=== PATIENT | female | born 1995 | race Hispanic/Latino ===

== ENCOUNTER 2019-02-25 02:24 | Emergency (ER) | payer BC, OTHER ==
[2019-02-25] MEDS ORDERED: NA CHLORIDE 0.9% 1,000 ML ONE (03:18)
[2019-02-25 03:45] LABS: Absolute Lymphocytes (CBC) 0.6 K/uL (0.7-4.9); Basophils % 0.1 % (0-1.3); Hematocrit 41.5 % (36.0-45.0); Lymphocytes % 6.6 % (15.3-44.8); RBC Red Blood Cell Count 4.96 M/uL (3.86-4.86)
[2019-02-25 04:13] LABS: Albumin 4.5 g/dL (3.4-5.0); Bilirubin Direct 0.2 mg/dL (0-0.2); Bilirubin Total 0.5 mg/dL (0.2-1.0); Potassium 3.7 mmol/L (3.5-5.1); Protein, Total 8.3 g/dL (6.4-8.2)
[2019-02-25 04:16] LABS: Thyroid Stimulating Hormone 45.7 uIU/mL (0.360-3.740)
[2019-02-25 04:48] LABS: Urine Bacteria >50 /HPF (<20); Urine Culture Reflex Order NOT NEEDED; Urine RBC <5 /HPF (NONE SEEN)
[2019-02-25 04:49] LABS: Urine Blood TRACE (NEG); Urine Glucose 2+ (NEG); Urine Protein 3+ (NEG); Urine Specific Gravity 1.025 (1.005-1.030)
--- NOTE | 2019-02-25 05:03 | ER ---
Nurse's Notes [facility] Name: Veronica Olmstead Age: 23 yrs Sex: Female : 1995 Arrival Date: 02/25/2019 Time: 02:30 Bed 7 Private MD: Diagnosis: Urinary tract infection. Hypothroidism Presentation: 02/25 02:41 Presenting complaint: Patient states: she is feeling weak, has chills, feels hot, and bb vomited x 1 symptoms started at approx 1800 last night. Transition of care: patient was not received from another setting of care. Onset of symptoms was February 24, 2019 at 18:00. Risk Assessment: Do you want to hurt yourself or someone else? Patient reports no desire to harm self or others. Initial Sepsis Screen: Does the patient meet any 2 criteria? Does the patient have a suspected source of infection? No. Patient's initial sepsis screen is negative. Care prior to arrival: None. 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 - Social history:: Smoking status: Patient/guardian denies using tobacco. - Ebola Screening: : No symptoms or risks identified at this time. Screenin:59 Abuse screen: Denies threats or abuse. Denies injuries from another. Nutritional rr5 screening: No deficits noted. Tuberculosis screening: No symptoms or risk factors identified. Fall Risk None identified. Total Woodruff Fall Scale indicates No Risk (0-24 pts). Assessment: 02:55 General: Appears in no apparent distress. uncomfortable, Behavior is calm, cooperative, rr5 appropriate for age, Reports chills for hot. Pain: Denies pain. Neuro: Level of Consciousness is awake, alert, obeys commands, Oriented to person, place, time, situation, Appropriate for age Reports weakness in body. Cardiovascular: Capillary refill < 3 seconds Patient's skin is warm and dry. 02:55 Respiratory: Airway is patent Respiratory effort is even, unlabored, Respiratory rr5 pattern is regular, symmetrical. GI: Abdomen is round non-distended, Reports nausea, vomiting. : No signs and/or symptoms were reported regarding the genitourinary system. EENT: No signs and/or symptoms were reported regarding the EENT system. Derm: Skin is intact, is healthy with good turgor, Skin temperature is warm. Musculoskeletal: Circulation, motion, and sensation intact. Capillary refill < 3 seconds. 03:36 Reassessment: Patient appears in no apparent distress at this time. Patient is alert, rr5 oriented x 3, equal unlabored respirations, skin warm/dry/pink. IVF started. TB test intradermally noted on the left forearm. 04:40 Reassessment: Patient appears in no apparent distress at this time. Patient is alert, rr5 oriented x 3, equal unlabored respirations, skin warm/dry/pink. awaiting for urine result. follow up to laboratory. 05:10 Reassessment: Patient appears in no apparent distress at this time. Patient is alert, rr5 oriented x 3, equal unlabored respirations, skin warm/dry/pink. discharge instruction given and explained without complaints made. verbalized understanding. Vital Signs: 02:43 BP 131 / 86; Pulse 133; Resp 16 S; Temp 99.6(O); Pulse Ox 97% on R/A; Weight 50.8 kg bb (R); Height 4 ft. 11 in. (149.86 cm); Pain 0/10; 03:37 BP 121 / 70; Pulse 124; Resp 19; Pulse Ox 97% ; rr5 04:15 BP 125 / 70; Pulse 121; Resp 17; Pulse Ox 98% on R/A; rr5 05:00 BP 117 / 75; Pulse 115; Resp 18; Temp 98.9; Pulse Ox 99% on R/A; rr5 02:43 Body Mass Index 22.62 (50.80 kg, 149.86 cm) ED Course: 02:30 Patient arrived in ED. es 02:33 Abraham Crabtree MD is Attending Physician. pkl 02:39 Jesús Cohen, RN is Primary Nurse. rr5 02:40 Patient has correct armband on for positive identification. Bed in low position. Call rr5 light in reach. Pulse ox on. NIBP on. 02:42 Triage completed. bb 02:43 Arm band placed on Patient placed in an exam room, on a stretcher, on pulse oximetry. bb 03:39 No provider procedures requiring assistance completed. rr5 05:15 IV discontinued, intact, bleeding controlled, No redness/swelling at site. Pressure rr5 dressing applied. Administered Medications: 03:36 Drug: NS 0.9% 1000 ml Route: IV; Rate: 1000 ml; Site: left forearm; rr5 04:45 Follow up: Response: No adverse reaction; IV Status: Completed infusion; IV Intake: rr5 1000ml 05:05 Drug: Cipro 500 mg Route: PO; rr5 05:15 Follow up: Response: Medication administered at discharge. rr5 Intake: 04:45 IV: 1000ml; Total: 1000ml. rr5 Outcome: 05:02 Discharge ordered by . pkl 05:15 Discharged to home ambulatory, with family. rr5 05:15 Condition: stable 05:15 Discharge instructions given to patient, Instructed on discharge instructions, follow up and referral plans. medication usage, Demonstrated understanding of instructions, follow-up care, medications, Prescriptions given X 1. 05:15 Patient left the ED. rr5 Addendum: 03/01/2019 10:21 Addendum: Culture Results: Positive urine culture. Bacteria is resistant to, has a a5 intermediate sensitivity, or is not tested against prescribed antibiotics. Report given to JUSTIN for further evaluation and then to cleaner furniture for follow up with patient. Phone call Attempt #1 at [phone], left voicemail. 11:18 Addendum: Culture Results: Prescription called-in to pharmacy of choice. to [facility] in [place], [place] per pt's request, Bactrim DS BID x 7 days per J CARLOS Ramirez. Pt instructed to stop Cipro and to start Bactrim. Signatures: Abraham Crabtree MD MD pkl Salyer, Edna es Ballard, Brenda RN RN bb Rena Call, RN RN aa5 Jesús Cohen RN RN rr5
[2019-02-25] MEDS ORDERED: CIPROFLOXACIN HCL 500 MG TAB ONE (05:04)
--- NOTE | 2019-02-25 05:04 | EDPHYS ---
Physician Documentation [facility] Name: Veronica Olmstead Age: 23 yrs Sex: Female : 1995 Arrival Date: 02/25/2019 Time: 02:30 Bed 7 Private MD: ED Physician Abraham Crabtree HPI: 02/25 03:13 This 23 yrs old Female presents to ER via Ambulatory with complaints of pkl Nausea/Vomiting, Weakness, Headache, Abdominal Pain, Chills. 03:13 The patient presents with abdominal pain in the lower abdomen. Onset: The pkl symptoms/episode began/occurred today, 8 hour(s) ago. The symptoms do not radiate. Associated signs and symptoms: Pertinent positives: nausea and vomiting, chills. 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 - Social history:: Smoking status: Patient/guardian denies using tobacco. - Ebola Screening: : No symptoms or risks identified at this time. ROS: 03:15 Eyes: Negative for injury, pain, redness, and discharge, ENT: Negative for injury, pkl pain, and discharge, Neck: Negative for injury, pain, and swelling, Cardiovascular: Negative for chest pain, palpitations, and edema, Respiratory: Negative for shortness of breath, cough, wheezing, and pleuritic chest pain. 03:15 Abdomen/GI: Positive for abdominal pain, nausea and vomiting, of the right lower quadrant and left lower quadrant. 03:15 Back: Negative for acute changes. 03:15 : Negative for urinary symptoms. 03:15 MS/extremity: Negative for acute changes. 03:15 Skin: Negative for rash. 03:15 Neuro: Negative for altered mental status. Exam: 03:15 Head/Face: Normocephalic, atraumatic. Eyes: Pupils equal round and reactive to light, pkl extra-ocular motions intact. Lids and lashes normal. Conjunctiva and sclera are non-icteric and not injected. Cornea within normal limits. Periorbital areas with no swelling, redness, or edema. ENT: Nares patent. No nasal discharge, no septal abnormalities noted. Tympanic membranes are normal and external auditory canals are clear. Oropharynx with no redness, swelling, or masses, exudates, or evidence of obstruction, uvula midline. Mucous membranes moist. Neck: Trachea midline, no thyromegaly or masses palpated, and no cervical lymphadenopathy. Supple, full range of motion without nuchal rigidity, or vertebral point tenderness. No Meningismus. Chest/axilla: Normal chest wall appearance and motion. Nontender with no deformity. No lesions are appreciated. Cardiovascular: Regular rate and rhythm with a normal S1 and S2. No gallops, murmurs, or rubs. Normal PMI, no JVD. No pulse deficits. Respiratory: Lungs have equal breath sounds bilaterally, clear to auscultation and percussion. No rales, rhonchi or wheezes noted. No increased work of breathing, no retractions or nasal flaring. 03:15 Abdomen/GI: Bowel sounds: normal, Palpation: soft, mild abdominal tenderness, in the right lower quadrant and left lower quadrant. 03:15 Back: Exam negative for acute changes. 03:15 : Exam negative for acute changes. 03:15 Musculoskeletal/extremity: Exam is negative for acute changes. 03:15 Skin: Exam negative for rash. 03:15 Neuro: Orientation: is normal, Mentation: is normal, Cranial nerves: grossly normal, Motor: is normal. Vital Signs: 02:43 BP 131 / 86; Pulse 133; Resp 16 S; Temp 99.6(O); Pulse Ox 97% on R/A; Weight 50.8 kg bb (R); Height 4 ft. 11 in. (149.86 cm); Pain 0/10; 03:37 BP 121 / 70; Pulse 124; Resp 19; Pulse Ox 97% ; rr5 04:15 BP 125 / 70; Pulse 121; Resp 17; Pulse Ox 98% on R/A; rr5 05:00 BP 117 / 75; Pulse 115; Resp 18; Temp 98.9; Pulse Ox 99% on R/A; rr5 02:43 Body Mass Index 22.62 (50.80 kg, 149.86 cm) MDM: 02:33 Patient medically screened. pkl 05:00 Data reviewed: vital signs, nurses notes, lab test result(s), radiologic studies. pkl 02/25 03:12 Order name: Basic Metabolic Panel; Complete Time: 04:31 pkl 02/25 03:12 Order name: CBC with Diff pkl 02/25 03:12 Order name: Creatinine for Radiology; Complete Time: 04:16 pkl 02/25 03:12 Order name: Hepatic Function; Complete Time: 04:31 pkl 02/25 03:12 Order name: Lipase; Complete Time: 04:31 pkl 02/25 03:18 Order name: Flu; Complete Time: 04:31 pkl 02/25 03:18 Order name: Strep; Complete Time: 04:31 pkl 02/25 03:30 Order name: Urine Culture mw2 02/25 03:30 Order name: Urine Dipstick--Ancillary (enter results); Complete Time: 04:58 mw2 02/25 03:30 Order name: Urine --Ancillary (enter results); Complete Time: 04:58 mw2 02/25 03:30 Order name: Urine Microscopic Only; Complete Time: 04:58 mw2 02/25 03:40 Order name: Thyroid Stimulating Hormone; Complete Time: 04:31 EDMS 02/25 04:08 Order name: Manual Differential EDMS 02/25 03:12 Order name: IV Saline Lock; Complete Time: 03:36 pkl 02/25 03:12 Order name: Labs collected and sent; Complete Time: 03:36 pkl 02/25 04:18 Order name: T4 Free; Complete Time: 04:31 EDMS 02/25 04:19 Order name: Throat Culture EDMS Administered Medications: 03:36 Drug: NS 0.9% 1000 ml Route: IV; Rate: 1000 ml; Site: left forearm; rr5 04:45 Follow up: Response: No adverse reaction; IV Status: Completed infusion; IV Intake: rr5 1000ml 05:05 Drug: Cipro 500 mg Route: PO; rr5 05:15 Follow up: Response: Medication administered at discharge. rr5 Disposition: 02/25/19 05:02 Discharged to Home. Impression: Urinary tract infection. Hypothroidism. - Condition is Stable. - Prescriptions for Cipro 500 mg Oral Tablet - take 1 tablet by ORAL route every 12 hours for 5 days; 10 tablet. - Medication Reconciliation Form, Thank You Letter, Antibiotic Education, Prescription Opioid Use form. - Work release form (02/26/19 18:24). em1 - Follow up: Private Physician; When: 2 - 3 days; Reason: Re-evaluation by your physician. - Problem is new. - Symptoms have improved. Signatures: Dispatcher [employer] EDHI Abraham Crabtree MD MD pkVivienne Mcneal RN RN bb Jesús Cohen RN RN rr5 Gaudencio Gayle em1 Corrections: (The following items were deleted from the chart) 03:39 03:15 THYROID STIMULAT HORMONE+C.LAB.BRZ ordered. [facility] EDHI 05:15 05:02 02/25/2019 05:02 Discharged to Home. Impression: Urinary tract infection. rr5 Hypothroidism. Condition is Stable. Forms are Medication Reconciliation Form, Thank You Letter, Antibiotic Education, Prescription Opioid Use. Follow up: Private Physician; When: 2 - 3 days; Reason: Re-evaluation by your physician. Problem is new. Symptoms have improved. pkl
[2019-02-25 05:21] LABS: Blood Morphology Comment NOT SEEN (NOT SEEN); Platelet Estimate ADEQ
[2019-02-25 05:33] VITALS: BP 117/75; TEMP 98.9; O2SAT 99
== END 2019-02-25 05:15 | disposition home or self-care (01) ==
LOC: ER 02:24
DX: N39.0 Urinary tract infection, site not specified (principal); E03.9 Hypothyroidism, unspecified; Z85.850 Personal history of malignant neoplasm of thyroid
CPT/HCPCS: 87070; 87088; 85025; 87086; 80048; 36415; 81025; 80076; 87081; 84443; 87077; 87186; 84439; 83690; 87804 ×2; 96360; 99283; J7030; 81003; 81015

== ENCOUNTER 2019-03-10 18:56 | Emergency (ER) | payer BC ==
--- NOTE | 2019-03-10 20:09 | EDPHYS ---
Physician Documentation [facility] Name: Veronica Olmstead Age: 23 yrs Sex: Female : 1995 Arrival Date: 03/10/2019 Time: 18:58 Bed 11 Private MD: ED Physician Jeremiah Campos HPI: 03/10 20:03 This 23 yrs old Female presents to ER via Ambulatory with complaints of Neck la1 Problem. 20:03 The patient or guardian complains of pain, that is acute. The symptoms are located la1 anterior right lateral neck. Onset: The symptoms/episode began/occurred this morning. Context: The problem was sustained at home. Associated signs and symptoms: The patient has no apparent associated signs or symptoms. The pain does not radiate. Modifying factors: The symptoms are alleviated by nothing. the symptoms are aggravated by nothing. Severity of symptoms: At their worst the symptoms were mild. Historical: - Allergies: 19:02 No Known Allergies; sv - PMHx: 19:00 THYROID CANCER; sv - PSHx: 19:00 thyroid surgery; sv - Immunization history:: Adult Immunizations unknown. - Social history:: Smoking status: unknown. ROS: 20:04 Constitutional: Negative for fever, chills, and weight loss, Eyes: Negative for injury, la1 pain, redness, and discharge, ENT: Negative for injury, pain, and discharge. 20:04 Cardiovascular: Negative for chest pain, palpitations, and edema, Respiratory: Negative for shortness of breath, cough, wheezing, and pleuritic chest pain, Abdomen/GI: Negative for abdominal pain, nausea, vomiting, diarrhea, and constipation, Back: Negative for injury and pain, MS/Extremity: Negative for injury and deformity, Skin: Negative for injury, rash, and discoloration, Neuro: Negative for headache, weakness, numbness, tingling, and seizure. 20:04 Neck: Positive for pain with movement. Exam: 20:05 Constitutional: This is a well developed, well nourished patient who is awake, alert, la1 and in no acute distress. Head/Face: Normocephalic, atraumatic. Eyes: Pupils equal round and reactive to light, extra-ocular motions intact. Periorbital areas with no swelling, redness, or edema. ENT: . Mucous membranes moist. 20:05 Chest/axilla: Normal chest wall appearance and motion. Nontender with no deformity. No lesions are appreciated. Cardiovascular: Regular rate and rhythm with a normal S1 and S2. No gallops, murmurs, or rubs. Normal PMI, no JVD. No pulse deficits. Respiratory: Lungs have equal breath sounds bilaterally, clear to auscultation and percussion. No rales, rhonchi or wheezes noted. No increased work of breathing, no retractions or nasal flaring. Abdomen/GI: Soft, non-tender, with normal bowel sounds. No distension or tympany. No guarding or rebound. No evidence of tenderness throughout. MS/ Extremity: Pulses equal, no cyanosis. Neurovascular intact. Full, normal range of motion. 20:05 Neck: External neck: is normal, no abrasions, no abscess, no cellulitis, no ecchymosis, no erythema, no laceration, no mass, no rash, no swelling, tenderness, that is mild, of the right sternocleidomastoid, C-spine: appears grossly normal, no acute changes, vertebral tenderness, is not appreciated. Vital Signs: 19:02 BP 134 / 78; Pulse 87; Resp 16; Temp 98; Pulse Ox 97% ; Weight 50 kg; Height 4 ft. 11 sv in. (149.86 cm); 20:30 BP 116 / 75; Pulse 74; Resp 16; Temp 97.6(TE); Pulse Ox 99% on R/A; bb 19:02 Body Mass Index 22.26 (50.00 kg, 149.86 cm) sv MDM: 19:21 Patient medically screened. la1 20:06 Differential diagnosis: bacterial meningitis, C-Spine Fracture Cervical Disc Herniation la1 Cervical Discogenic Pain cervical strain. Data reviewed: vital signs, nurses notes, I have discussed the patient's presentation/case with the attending Emergency Department Physician; and as a result, I will discharge patient. Data interpreted: Pulse oximetry: on room air is 97 %. Interpretation: normal. Counseling: I had a detailed discussion with the patient and/or guardian regarding: the historical points, exam findings, and any diagnostic results supporting the discharge/admit diagnosis, to return to the emergency department if symptoms worsen or persist or if there are any questions or concerns that arise at home. Special discussion: Based on the patient's history, exam, and Dx evaluation, there is no indication for emergent intervention or inpatient Tx. It is understood by the patient/guardian that if the Sx's persist or worsen they need to return immediately for re-evaluation. ED course: with pain being mild, starting today, and having point tenderness over sternocleidomastoid area Pt instructed to take OTC meds and FU with her thyroid specialist with strict return precautions. Administered Medications: 20:16 Drug: Flexeril 10 mg Route: PO; bb 20:32 Follow up: Response: No adverse reaction bb Disposition: 03/11 06:25 Co-signature as Attending Physician, Jeremiah Campos MD I agree with the assessment and tw4 plan of care. Disposition: 03/10/19 20:08 Discharged to Home. Impression: Neck pain (anterior lateral). - Condition is Stable. - Discharge Instructions: Musculoskeletal Pain, Muscle Pain, Adult. - Prescriptions for Cyclobenzaprine 5 mg Oral Tablet - take 1 tablet by ORAL route 3 times per day As needed; 15 tablet. - Medication Reconciliation Form, Thank You Letter, Work release form form. - Follow up: Private Physician; When: 2 - 3 days; Reason: Recheck today's complaints, Re-evaluation by your physician. Follow up: Emergency Department; When: As needed; Reason: Trouble breathing, Worsening of condition. - Problem is new. - Symptoms are unchanged. Signatures: Nohemy Soto RN RN sv Ballard, Brenda, RN RN bb Gabe, Chas, FLASK PUSHER-C FLASK PUSHER-Cla1 Jeremiah Campos MD MD tw4 Corrections: (The following items were deleted from the chart) 03/10 20:34 20:08 03/10/2019 20:08 Discharged to Home. Impression: Neck pain (anterior lateral). bb Condition is Stable. Forms are Medication Reconciliation Form, Thank You Letter, Antibiotic Education, Prescription Opioid Use. Follow up: Private Physician; When: 2 - 3 days; Reason: Recheck today's complaints, Re-evaluation by your physician. Follow up: Emergency Department; When: As needed; Reason: Trouble breathing, Worsening of condition. Problem is new. Symptoms are unchanged. la1
--- NOTE | 2019-03-10 20:09 | ER ---
Nurse's Notes [facility] Name: Veronica Olmstead Age: 23 yrs Sex: Female : 1995 Arrival Date: 03/10/2019 Time: 18:58 Bed 11 Private MD: Diagnosis: Neck pain (anterior lateral) Presentation: 03/10 19:00 Presenting complaint: Patient states: pain on the right side of the neck, worse when sv she moves her neck or bends down started this morning. Transition of care: patient was not received from another setting of care. Onset of symptoms was March 10, 2019. Care prior to arrival: None. 19:00 Method Of Arrival: Ambulatory sv 19:00 Acuity: MARINA 4 sv Triage Assessment: 19:00 General: Appears in no apparent distress. uncomfortable, Behavior is calm, cooperative, sv appropriate for age. Pain: Complains of pain in right posterior aspect of neck and right lateral aspect of neck. Neuro: Level of Consciousness is awake, alert, obeys commands, Gait is steady. Respiratory: Respiratory effort is even, unlabored. Historical: - Allergies: 19:02 No Known Allergies; sv - PMHx: 19:00 THYROID CANCER; sv - PSHx: 19:00 thyroid surgery; sv - Immunization history:: Adult Immunizations unknown. - Social history:: Smoking status: unknown. Screenin:24 Abuse screen: Denies threats or abuse. Nutritional screening: No deficits noted. bb Tuberculosis screening: No symptoms or risk factors identified. Fall Risk None identified. Assessment: 19:24 General: Appears in no apparent distress. Behavior is calm, cooperative. Pain: bb Complains of pain in neck. Neuro: Level of Consciousness is awake, alert, obeys commands, Oriented to person, place, time, situation. Cardiovascular: No deficits noted. Respiratory: Respiratory effort is even, unlabored, Respiratory pattern is regular. GI: No signs and/or symptoms were reported involving the gastrointestinal system. Derm: Skin is pink, warm \T\ dry. Musculoskeletal: Reports pain in right lateral aspect of neck and right posterior aspect of neck. 20:30 Reassessment: Patient and/or family updated on plan of care and expected duration. Pain bb level reassessed. Patient is alert, oriented x 3, equal unlabored respirations, skin warm/dry/pink. pt verbalized understanding of and agrees to plan of care discharge instructions given pt ambulated with steady gait to exit accompanied by spouse. Vital Signs: 19:02 BP 134 / 78; Pulse 87; Resp 16; Temp 98; Pulse Ox 97% ; Weight 50 kg; Height 4 ft. 11 sv in. (149.86 cm); 20:30 BP 116 / 75; Pulse 74; Resp 16; Temp 97.6(TE); Pulse Ox 99% on R/A; bb 19:02 Body Mass Index 22.26 (50.00 kg, 149.86 cm) sv ED Course: 18:58 Patient arrived in ED. ag5 18:59 Arm band placed on. sv 19:01 Triage completed. sv 19:21 Chas Bernal FNP-C [facility]. la1 19:21 Jeremiah Campos MD is Attending Physician. la1 19:23 Vivienne Hightower, RN is Primary Nurse. bb 19:24 Patient has correct armband on for positive identification. Call light in reach. Adult bb w/ patient. 20:33 No provider procedures requiring assistance completed. Patient did not have IV access bb during this emergency room visit. Administered Medications: 20:16 Drug: Flexeril 10 mg Route: PO; bb 20:32 Follow up: Response: No adverse reaction bb Outcome: 20:08 Discharge ordered by MD. la1 20:33 Discharged to home ambulatory, with family. bb 20:33 Condition: stable 20:33 Discharge instructions given to patient, Instructed on discharge instructions, follow up and referral plans. medication usage, Demonstrated understanding of instructions, follow-up care, medications, Prescriptions given X 1. 20:34 Patient left the ED. bb Signatures: Nohemy Soto, RN RN sv Vivienne Hightower, RN RN bb Chas Bernal FNP-C FNP-[facility] Hussain Brody ag5 Corrections: (The following items were deleted from the chart) 19:03 19:02 Pulse 87bpm; Resp 16bpm; Pulse Ox 97%; Temp 98F; sv sv 19:03 19:02 BP 134 / 78; Pulse 87bpm; Resp 16bpm; Pulse Ox 97%; Temp 98F; sv sv
[2019-03-10] MEDS ORDERED: CYCLOBENZAPRINE 10 MG TAB ONE (20:29)
[2019-03-10 23:13] VITALS: BP 116/75; TEMP 97.6; O2SAT 99
== END 2019-03-10 20:34 | disposition home or self-care (01) ==
LOC: ER 18:56
DX: M54.2 Cervicalgia (principal); Z85.850 Personal history of malignant neoplasm of thyroid
CPT/HCPCS: 99283

== ENCOUNTER 2020-10-29 22:23 | Emergency (ER) | payer BC ==
[2020-10-30 00:12] LABS: SARS-COV-2 RT PCR NEGATIVE (NEGATIVE)
[2020-10-30] MEDS ORDERED: ONDANSETRON 4 MG (ODT) TAB ONE (00:16)
[2020-10-30] MEDS ORDERED: DICYCLOMINE HCL 10 MG CAP ONE (00:16)
--- NOTE | 2020-10-30 00:34 | EDPHYS ---
Physician Documentation [facility] Name: Veronica Olmstead Age: 24 yrs Sex: Female : 1995 Arrival Date: 10/29/2020 Time: 22:27 Bed 15 Private MD: ED Physician Reji Russell HPI: 10/29 23:45 This 24 yrs old Female presents to ER via Ambulatory with complaints of cp Vomiting/Diarrhea, Abdominal Pain. 23:45 The patient presents to the emergency department with vomiting, that is intermittent, cp yesterday, diarrhea, that is continuous, today, abdominal pain, of the mid abdomen. 23:45 Onset: The symptoms/episode began/occurred yesterday. Possible causes: unknown. cp Associated signs and symptoms: Pertinent positives: anorexia, nausea, Pertinent negatives: constipation, dysuria, fever, GI bleeding. Historical: - Allergies: 23:19 No Known Allergies; bb - Home Meds: 23:19 levothyroxine oral [Active]; metformin 1,000 mg oral tab 2 times per day [Active]; bb Tresiba FlexTouch U-200 200 unit/mL (3 mL) subcutaneous inpn 30 unit daily [Active]; Left leg sx [Active]; - PMHx: 23:19 THYROID CANCER; Leukemia; bb - PSHx: 23:19 Thyroidectomy; bb - Immunization history:: Adult Immunizations not up to date, Client reports receiving the 2nd dose of the Covid vaccine, Date received: August 08, 2020 hike Client reports receiving the 1st dose of the Covid vaccine, July 18, 2020 hike. - Social history:: Smoking status: Patient denies any tobacco usage or history of. ROS: 23:50 Constitutional: Negative for body aches, chills, fever, poor PO intake. cp 23:50 Eyes: Negative for injury, pain, redness, and discharge. cp 23:50 ENT: Negative for drainage from ear(s), ear pain, sore throat, difficulty swallowing, difficulty handling secretions. 23:50 Cardiovascular: Negative for chest pain. 23:50 Respiratory: Negative for cough, shortness of breath, wheezing. 23:50 Abdomen/GI: Positive for nausea, diarrhea, abdominal cramps, anorexia, Negative for hematemesis, black/tarry stool, rectal bleeding, active vomiting. 23:50 Neuro: Negative for altered mental status, headache, weakness. 23:50 All other systems are negative. Exam: 23:53 Constitutional: The patient appears in no acute distress, alert, awake, comfortable, cp non-toxic, well developed, well nourished. 23:53 Head/Face: Normocephalic, atraumatic. cp 23:53 Eyes: Periorbital structures: appear normal, Conjunctiva: normal, no exudate, no injection, Sclera: no appreciated abnormality, Lids and lashes: appear normal, bilaterally. 23:53 ENT: External ear(s): are unremarkable, Nose: is normal, Mouth: Lips: moist, Oral mucosa: moist, Posterior pharynx: Airway: no evidence of obstruction, patent. 23:53 Chest/axilla: Inspection: normal, Palpation: is normal, no crepitus, no tenderness. 23:53 Cardiovascular: Rate: tachycardic, Rhythm: regular. 23:53 Respiratory: the patient does not display signs of respiratory distress, Respirations: normal, no use of accessory muscles, no retractions, labored breathing, is not present, Breath sounds: are clear throughout, no decreased breath sounds, no stridor, no wheezing. 23:53 Abdomen/GI: Inspection: abdomen appears normal, Bowel sounds: active, all quadrants, Palpation: soft, in all quadrants, nontender, in all quadrants, rebound tenderness, is not appreciated, involuntary guarding, is not appreciated. 23:53 Back: CVA tenderness, is absent. Vital Signs: 23:16 BP 120 / 85; Pulse 101; Resp 19; Temp 98.5(O); Pulse Ox 100% on R/A; Weight 49.9 kg bb (R); Height 4 ft. 11 in. (149.86 cm) (R); Pain 0/10; 10/30 00:50 BP 118 / 80; Pulse 88; Resp 17; Temp 98.6; Pulse Ox 100% on R/A; ch4 10/29 23:16 Body Mass Index 22.22 (49.90 kg, 149.86 cm) bb MDM: 10/29 23:35 Patient medically screened. cp 10/30 00:32 Data reviewed: vital signs, nurses notes. cp 00:32 Differential diagnosis: Nonspecific abd pain, gastritis, cholecystitis, appendicitis, cp viral gastroenteritis, gastroenteritis. Counseling: I had a detailed discussion with the patient and/or guardian regarding: the historical points, exam findings, and any diagnostic results supporting the discharge/admit diagnosis, to return to the emergency department if symptoms worsen or persist or if there are any questions or concerns that arise at home. Response to treatment: the patient's symptoms have markedly improved after treatment, VSS. Nausea improved with meds. Patient tolerating po fluids. Will discharge to home for continued monitoring. 10/29 23:25 Order name: Flu bb 10/30 00:10 Order name: Glucose, Ancillary Testing EDMS 10/30 00:13 Order name: COVID-19/FLU A+B EDMS 10/29 23:41 Order name: Accucheck Blood Glucose; Complete Time: 23:55 cp 10/29 23:41 Order name: PO challenge; Complete Time: 23:55 cp Administered Medications: 10/29 23:55 Drug: Zofran (Ondansetron) 4 mg Route: IVP; Site: left forearm; ch4 23:55 Drug: Bentyl (dicyclomine) 20 mg Route: PO; ch4 Disposition Summary: 10/30/20 00:33 Discharge Ordered Location: Home cp Problem: new cp Symptoms: have improved cp Condition: Stable cp Diagnosis - Nausea cp - Diarrhea, unspecified cp Followup: cp - With: Private Physician - When: 1 - 2 days - Reason: Worsening of condition Discharge Instructions: - Discharge Summary Sheet cp - Food Choices to Help Relieve Diarrhea, Adult cp - Diarrhea, Adult cp - Nausea, Adult cp - Form - Excuse from Work, School, or Physical Activity cp Forms: - Medication Reconciliation Form cp - Thank You Letter cp - Antibiotic Education cp - Prescription Opioid Use cp Prescriptions: - Zofran 4 mg Oral Tablet - take 1 tablet by ORAL route every 12 hours As needed; 10 tablet; Refills: 0, cp Product Selection Permitted Signatures: Dispatcher [employer] EDVivienne Lorenz RN RN Newton Mejia PA PA cp Herman, Christina RN RN ch4 Corrections: (The following items were deleted from the chart) 23:35 23:26 Influenza Screen (A ordered. EDMS EDMS 23:35 23:26 CORONAVIRUS+MR.LAB.BRZ ordered. EDMS EDMS
--- NOTE | 2020-10-30 00:34 | ER ---
Nurse's Notes [facility] Name: Veronica Olmstead Age: 24 yrs Sex: Female : 1995 Arrival Date: 10/29/2020 Time: 22:27 Bed 15 Private MD: Diagnosis: Nausea;Diarrhea, unspecified Presentation: 10/29 23:16 Chief complaint: Patient states: Abdominal pain, diarrhea, nausea, vomiting x 2 days. bb Coronavirus screen:. Ebola Screen: Patient negative for fever greater than or equal to 101.5 degrees Fahrenheit, and additional compatible Ebola Virus Disease symptoms Patient denies exposure to infectious person. Patient denies travel to an Ebola-affected area in the 21 days before illness onset. Initial Sepsis Screen: Does the patient meet any 2 criteria? No. Patient's initial sepsis screen is negative. Does the patient have a suspected source of infection? No. Patient's initial sepsis screen is negative. Risk Assessment: Do you want to hurt yourself or someone else? Patient reports no desire to harm self or others. Onset of symptoms was October 27, 2020. 23:16 Method Of Arrival: Ambulatory 23:16 Acuity: MARINA 4 bb Historical: - Allergies: 23:19 No Known Allergies; bb - Home Meds: 23:19 levothyroxine oral [Active]; metformin 1,000 mg oral tab 2 times per day [Active]; bb Tresiba FlexTouch U-200 200 unit/mL (3 mL) subcutaneous inpn 30 unit daily [Active]; Left leg sx [Active]; - PMHx: 23:19 THYROID CANCER; Leukemia; bb - PSHx: 23:19 Thyroidectomy; bb - Immunization history:: Adult Immunizations not up to date, Client reports receiving the 2nd dose of the Covid vaccine, Date received: August 08, 2020 [place] Client reports receiving the 1st dose of the Covid vaccine, July 18, 2020 [place]. - Social history:: Smoking status: Patient denies any tobacco usage or history of. Screenin:23 Abuse screen: Denies threats or abuse. Denies injuries from another. Nutritional bb screening: No deficits noted. Tuberculosis screening: No symptoms or risk factors identified. Fall Risk None identified. Assessment: 23:26 General: Appears comfortable, Behavior is calm, cooperative. Pain: Denies pain. Neuro: ch4 No deficits noted. Cardiovascular: No deficits noted. Respiratory: Reports cough that is. GI: Reports diarrhea, vomiting. : No deficits noted. EENT: No deficits noted. Derm: No deficits noted. Musculoskeletal: No deficits noted. 10/30 00:00 Reassessment: Patient states symptoms have improved. GI: Abdomen is flat. ch4 Vital Signs: 10/29 23:16 BP 120 / 85; Pulse 101; Resp 19; Temp 98.5(O); Pulse Ox 100% on R/A; Weight 49.9 kg bb (R); Height 4 ft. 11 in. (149.86 cm) (R); Pain 0/10; 10/30 00:50 BP 118 / 80; Pulse 88; Resp 17; Temp 98.6; Pulse Ox 100% on R/A; ch4 10/29 23:16 Body Mass Index 22.22 (49.90 kg, 149.86 cm) bb ED Course: 10/29 22:27 Patient arrived in ED. bp1 23:19 Triage completed. bb 23:23 Patient has correct armband on for positive identification. bb 23:25 Anna Dale, RN is Primary Nurse. ch4 23:26 Flu Sent. lp1 23:30 Newton Dowling PA is PHCP. cp 23:30 Reji Russell MD is Attending Physician. cp Administered Medications: 23:55 Drug: Zofran (Ondansetron) 4 mg Route: IVP; Site: left forearm; ch4 23:55 Drug: Bentyl (dicyclomine) 20 mg Route: PO; ch4 Outcome: 10/30 00:33 Discharge ordered by MD. cp 00:54 Patient left the ED. ch4 Signatures: Vivienne Hightower, RN RN bb Dang Lopez RN RN lp1 Newton Dowling PA PA cp Aletha Archer [facility] Anna Dale, FARZAD RN ch4 Corrections: (The following items were deleted from the chart) 10/29 23:35 23:26 Influenza Screen (A drawn and sent. lp1 EDMS
[2020-10-30 01:00] VITALS: O2SAT 100
[2020-10-30 01:02] VITALS: BP 118/80; TEMP 98.6
== END 2020-10-30 00:54 | disposition home or self-care (01) ==
LOC: ER 22:23
DX: R19.7 Diarrhea, unspecified (principal); Z20.822 Contact with and (suspected) exposure to COVID-19
CPT/HCPCS: 82947; 0240U; 96374; 99283

== ENCOUNTER 2022-09-02 20:22 | Inpatient (IN) | payer BC ==
--- OUTSIDE RECORDS SUMMARY | 2022-09-02 20:31 | XMS REPORT | Clinical Summary ---
:1995 Author Organization [facility] Address [address] [place] [address] Care Team Providers Name Role Phone Lolita Ann MD Primary Care Provider Allergies No known active allergies Medications Medication Sig Dispensed Refills Start End Date Status Date levothyroxine TAKE ONE (1) 0 Act bryon (SYNTHROID, TABLET(S) BY 2 LEVOTHROID) 200 MOUTH DAILY. mcg tablet sertraline TAKE ONE (1) 0 Active (ZOLOFT) 25 mg TABLET(S) BY 3 tablet MOUTH DAILY. FERROUS SULFATE Take 28 mg by 0 Active ORAL mouth daily. furosemide (LASIX) Take 1 tablet 30 tablet 1 Active 40 mg (40 mg) by mouth 3 tabletIndications: daily. Cardiac arrest, not otherwise specified, Acute congestive heart failure, Stress induced cardiomyopathy metoprolol Take 0.5 tablets 30 tablet 1 Ac tive succinate (TOPROL (12.5 mg) by 3 XL) 25 mg 24 hr mouth twice tabletIndications: daily. Cardiac arrest, not otherwise specified, Acute congestive heart failure, Stress induced cardiomyopathy sacubitriL-valsart Take 1 tablet by 60 tablet 1 Active an (ENTRESTO) 24 mouth every 12 3 mg-26 mg tab per (twelve) hours. tabletIndications: Cardiac arrest, not otherwise specified, Acute congestive heart failure, Stress induced cardiomyopathy famotidine Take 1 tablet 30 tablet 0 Activ e (PEPCID) 20 mg (20 mg) by mouth 3 tabletIndications: twice daily. Papillary thyroid carcinoma insulin degludec Inject 10 Units 0 Active 100 unit/mL (3 mL) under the skin 3 insulin daily. Skip the penIndications: dose if the Type 2 diabetes glucose is less mellitus with than 100 mg/dL hyperglycemia metFORMIN Take 1 tablet 0 Active (GLUCOPHAGE-XR) (500 mg) by 3 500 mg 24 hr mouth daily with tabletIndications: breakfast. Type 2 diabetes mellitus with hyperglycemia insulin lispro Inject 5-15 0 Act bryon (HumaLOG KWIKPEN) Units under the 3 100 unit/mL skin 3 (three) insulin times a day. penIndications: Take before Type 2 diabetes meals as per the mellitus with instructions hyperglycemia provided. doxycycline TAKE ONE (1) 0 04/02/19 Disco ntinued (VIBRAMYCIN) 100 CAPSULE(S) BY 3 23 (Stop Taking at MG capsule MOUTH EVERY Dischar ge) TWELVE HOURS. insulin degludec 30 Units daily. 0 0 Discontinued 100 unit/mL (3 mL) 2 23 ( Reorder) insulin pen insulin lispro Inject 5 Units 0 04/02/19 Discontinued (HumaLOG KWIKPEN) under the skin 3 3 23 (Reorder) 100 unit/mL (three) times a insulin pen day. metFORMIN TAKE 2 TABLETS 0 04/02/19 Disco ntinued (GLUCOPHAGE-XR) TWICE DAILY WITH 3 23 (Reorder) 500 mg 24 hr MEALS. tablet LORazepam (Ativan) Take 1 tablet 1 tablet 0 0 Discontinued 0.5 mg (0.5 mg) by 3 23 tabletIndications: mouth once for 1 Papillary thyroid dose. Take prior carcinoma, to MRI Claustrophobia LORazepam (Ativan) Take 1 tablet 1 tablet 0 0 0.5 mg (0.5 mg) by 3 23 tabletIndications: mouth once for 1 Claustrophobia dose. LORazepam (Ativan) Take 1 tablet 2 tablet 0 0 Discontinued 0.5 mg (0.5 mg) by 3 23 (Stop Ta brenden at tabletIndications: mouth 2 (two) Discharge) Papillary thyroid times a day as carcinoma, needed for Claustrophobia anxiety. Active Problems Problem Noted Date Stress induced cardiomyopathy 04/01/2022 Acute congestive heart failure 04/01/2022 Acute respiratory distress syndrome 03/26/2022 Pyelonephritis 03/25/2022 Current use of insulin 03/25/2022 Type 2 diabetes mellitus with hyperglycemia 03/13/2022 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 and neck lymph node 05/12/2019 Pulmonary nodules 05/12/2019 Postoperative hypothyroidism 05/12/2019 Papillary thyroid carcinoma Cardiac arrest Acute respiratory failure with hypoxia Encounters Date Type Specialty Care Team Description 07/26/2022 Hospital Encounter Cardiology Megan Kapadia Nonisch emic congestive cardiomyopathy; MD Ania Heart failure w ith reduced ejection fraction 07/26/2022 Hospital Encounter Lab Megan Kapadia Nonisch emic congestive cardiomyopathy; MD Ania Heart failure w ith reduced ejection fraction 07/26/2022 Travel 07/15/2022 Hospital Encounter Cardiology Megan Kapadia Nonisch emic congestive cardiomyopathy; MD Ania Heart failure w ith reduced ejection fraction 07/15/2022 Follow-Up Cardiology Megan Kapadia Nonischemic c ongestive cardiomyopathy; MD Ania Heart failure w ith reduced ejection fraction 07/15/2022 Travel 05/02/2022 Telephone Endocrinology Leroy Vásquez, FARZAD 05/02/2022 Telephone Endocrinology Leroy Vásquez, FARZAD 04/30/2022 Documentation Cardiology Shereen Colmenares, FARZAD 04/18/2022 Orders Only Endocrinology Kamla, Papillary thyr oid Inge Mahmood MD carcinoma (Geraldine promise Dx) 04/12/2022 Hospital Encounter Radiology Lolita Ann Malignan t neoplasm of thyroid glan d 04/12/2022 Travel 04/05/2022 Ancillary Procedure Radiology Lolita Ann, Cancer 04/02/2022 Orders Only Cardiology Dafne Francisco, Nonischemic c ongestive cardiomyopathy (Primary Dx); PA Heart failure w ith reduced ejection fraction 04/02/2022 Orders Only Endocrinology Ry Noe 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, 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 (Primary Dx) 03/29/2022 Travel 03/25/2022 Travel 03/24/2022 Hospital Encounter GIM/Phase 1 Paola Dill Pyelon ephritis (Primary Dx); - MD Teresa Hyperglycemia due to type 2 diabetes yuly litus; 04/02/2022 Tanwir, Bud, Hypokalemia; Papillary thyroid carcinoma; Matthias Olmstead, 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 and neck lymph node; Acute respiratory failure with hypoxia; Pablo, Cardiac arrest, not otherwise specified; Idania Givens, Encounter fo r adjustment and management of vascular access device; Acute congestive heart failure; Renard Carpenter, Stress induce d cardiomyopathy; Satya Lambert MD Type 2 diabetes mellitus with hyperglycemia 03/24/2022 Travel 03/14/2022 Ancillary Procedure Radiology Lolita Ann Maligna nt neoplasm of thyroid glan d 03/14/2022 Travel 03/13/2022 Clinical Support Covid Lolita Ann, Suspected COVID-19 (Primary Dx) Minerva Ludwig MA 03/13/2022 Ancillary Procedure Radiology Lolita Ann Maligna nt neoplasm of thyroid glan d 03/13/2022 Hospital Encounter Lab Lolita Ann Malignan t neoplasm of thyroid glan d 03/13/2022 Office Visit Endocrinology Lolita Ann, Papillary thy roid carcinoma (Primary Dx); Postoperative h ypothyroidism; Pulmonary nodul es; Metastasis to h ead and neck lymph node; Claustrophobia 03/13/2022 Travel 03/12/2022 NPR Patient Access Lolita Ann Services 03/01/2022 Lab Requisition Gary Simon MD Schady, Deborah A, MD 02/22/2022 Ancillary Procedure Radiology Lolita Ann Cancer 02/22/2022 Ancillary Procedure Radiology Lolita Ann Cancer 02/22/2022 Ancillary Procedure Radiology Lolita Ann Cancer 02/22/2022 Lab Requisition Gary Simon MD Curry, Choladda Vejabhuti, MD 02/07/2022 Orders Only Endocrinology Lolita Ann, Malignant linda plasm of thyroid glan d (Primary Dx) after 09/02/2021 Surgical History Surgery Date Site/Laterality Comments CATARACT EXTRACTION W/ INTRAOCULAR LENS IMPLANT Medical History Medical History Date Comments Type 2 diabetes mellitus Acute lymphoid leukemia Cataract Papillary thyroid carcinoma 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 Family History Medical History Relation Name Comments Hyperlipidemia Father Diabetes Maternal Aunt 1 Hypertension Maternal Aunt 1 Hyperlipidemia Maternal Aunt 2 Diabetes Maternal Grandmother Hypertension Mother Diabetes Paternal Grandmother Hypertension Paternal Grandmother Thyroid cancer Neg Hx Thyroid disease Neg Hx Relation Name Status Comments Father Maternal Aunt 1 Maternal Aunt 2 Alive Maternal Grandmother Mother Paternal Grandmother Social History Tobacco Use Types Packs/Day Years Used Date Smoking Tobacco: Never Smokeless Tobacco: Never Tobacco Cessation: Counseling Given: Not Answered Alcohol Use Standard Drinks/Week Comments Yes 1 (1 standard drink = 0.6 oz pure occasi onally as reported by patient. alcohol) Sex Assigned at Date Recorded Female 03/12/2022 1:41 PM [employer]OTOENGRAVER Job Start Date Occupation Industry Not on file Not on file Not on file Obstetrics History Last Filed Vital Signs Vital Sign Reading Time Taken Comments Blood Pressure 108/73 07/15/2022 1:30 PM CDT Pulse 83 07/15/2022 1:30 PM CDT Temperature 36.9 C (98.4 F) 07/15/2022 1:30 PM CDT Respiratory Rate 18 07/15/2022 1:30 PM CDT Oxygen Saturation 98% 07/15/2022 1:30 PM CDT Inhaled Oxygen Concentration - - Weight 45.8 kg (101 lb 1.3 oz) 07/15/2022 1:30 PM CDT Height 151.5 cm (4' 11.65") 03/29/2022 6:51 PM PHOTOENGRAVER Body Mass Index 19.98 03/29/2022 6:51 PM PHOTOENGRAVER Plan of Treatment Health Maintenance Due Date Last Done Comments COVID-19 Vaccination (3 - Pfizer series) 10/13/2020 021, 07/21/2020 Procedures Procedure Name Priority Date/Time Associated Comments Diagnosis ECHOCARDIOGRAM 2D Routine 07/26/2022 11:17 Nonischemic Result s for this COMPLETE AM CDT congestive procedure are i n cardiomyopathy the results Heart failure with section. reduced ejection fraction FRACTIONATED BILIRUBIN Routine 07/26/2022 10:26 Nonischemic R esults for this AM CDT congestive procedure are i n cardiomyopathy the results Heart failure with section. reduced ejection fraction TOTAL PROTEIN Routine 07/26/2022 10:26 Nonischemic Results fo r this AM CDT congestive procedure are i n cardiomyopathy the results Heart failure with section. reduced ejection fraction ASPARTATE Routine 07/26/2022 10:26 Nonischemic Results for this AMINOTRANSFERASE AM CDT congestive procedure a re in cardiomyopathy the results Heart failure with section. reduced ejection fraction ALANINE Routine 07/26/2022 10:26 Nonischemic Results for this AMINOTRANSFERASE AM CDT congestive procedure a re in cardiomyopathy the results Heart failure with section. reduced ejection fraction ALKALINE PHOSPHATASE Routine 07/26/2022 10:26 Nonischemic Res ults for this AM CDT congestive procedure are i n cardiomyopathy the results Heart failure with section. reduced ejection fraction ALBUMIN LEVEL Routine 07/26/2022 10:26 Nonischemic Results fo r this AM CDT congestive procedure are i n cardiomyopathy the results Heart failure with section. reduced ejection fraction CALCIUM LEVEL TOTAL Routine 07/26/2022 10:26 Nonischemic Resu lts for this AM CDT congestive procedure are i n cardiomyopathy the results Heart failure with section. reduced ejection fraction .GLOMERULAR FILTRATION Routine 07/26/2022 10:26 Nonischemic R esults for this RATE AM CDT congestive procedure are i n cardiomyopathy the results Heart failure with section. reduced ejection fraction SERUM CREATININE Routine 07/26/2022 10:26 Nonischemic Results for this AM CDT congestive procedure are i n cardiomyopathy the results Heart failure with section. reduced ejection fraction ELECTROLYTE PANEL Routine 07/26/2022 10:26 Nonischemic Result s for this AM CDT congestive procedure are i n cardiomyopathy the results Heart failure with section. reduced ejection fraction BLOOD UREA NITROGEN Routine 07/26/2022 10:26 Nonischemic Resu lts for this AM CDT congestive procedure are i n cardiomyopathy the results Heart failure with section. reduced ejection fraction GLUCOSE LEVEL Routine 07/26/2022 10:26 Nonischemic Results fo r this AM CDT congestive procedure are i n cardiomyopathy the results Heart failure with section. reduced ejection fraction MANUAL DIFFERENTIAL Routine 07/26/2022 10:26 Nonischemic Resu lts for this AM CDT congestive procedure are i n cardiomyopathy the results Heart failure with section. reduced ejection fraction Results CBC Routine 07/26/2022 10:26 Nonischemic Results for this AM CDT congestive procedure are i n cardiomyopathy the results Heart failure with section. reduced ejection fraction FREE THYROXINE Routine 07/26/2022 10:26 Nonischemic Results f or this AM CDT congestive procedure are i n cardiomyopathy the results Heart failure with section. reduced ejection fraction NT PRO BNP Routine 07/26/2022 10:26 Nonischemic Results for this AM CDT congestive procedure are i n cardiomyopathy the results Heart failure with section. reduced ejection fraction CARDIAC PANEL Routine 07/26/2022 10:26 Nonischemic Results fo r this AM CDT congestive procedure are i n cardiomyopathy the results Heart failure with section. reduced ejection fraction LIPID PANEL Routine 07/26/2022 10:26 Nonischemic Results for this AM CDT congestive procedure are i n cardiomyopathy the results Heart failure with section. reduced ejection fraction COMPREHENSIVE METABOLIC Routine 07/26/2022 10:26 Nonischemic PANEL AM CDT congestive cardiomyopathy Heart failure with reduced ejection fraction COMPLETE BLOOD COUNT W/ Routine 07/26/2022 10:26 Nonischemic DIFFERENTIAL AM CDT congestive cardiomyopathy Heart failure with reduced ejection fraction EKG, 12-LEAD Routine 07/15/2022 Nonischemic (SCHEDULED) congestive cardiomyopathy Heart failure with reduced ejection fraction CT CHEST W CONTRAST Routine 04/12/2022 2:09 Malignant neoplasm Results for this PM PHOTOENGRAVER of thyroid gland procedure a re in the results section. CT SOFT TISSUE NECK W Routine 04/12/2022 2:09 Malignant neopla sm Results for this CONTRAST PM PHOTOENGRAVER of thyroid gland procedure a re in the results section. POC GLUCOSE SCREEN Routine 04/02/2022 8:17 Result s for this AM PHOTOENGRAVER procedure are i n the results section. MANUAL DIFFERENTIAL AM 04/02/2022 7:05 Resul ts for this AM PHOTOENGRAVER procedure are i n the results section. Results CBC AM 04/02/2022 7:05 Results for this AM PHOTOENGRAVER procedure are i n the results section. .GLOMERULAR FILTRATION AM 04/02/2022 7:05 Re sults for this RATE AM PHOTOENGRAVER procedure are i n the results section. SERUM CREATININE AM 04/02/2022 7:05 Results for this AM PHOTOENGRAVER procedure are i n the results section. ELECTROLYTE PANEL AM 04/02/2022 7:05 Results for this AM PHOTOENGRAVER procedure are i n the results section. BLOOD UREA NITROGEN AM 04/02/2022 7:05 Resul ts for this AM PHOTOENGRAVER procedure are i n the results section. GLUCOSE LEVEL AM 04/02/2022 7:05 Results for this AM PHOTOENGRAVER procedure are i n the results section. FRACTIONATED BILIRUBIN AM 04/02/2022 7:05 Re sults for this AM PHOTOENGRAVER procedure are i n the results section. TOTAL PROTEIN AM 04/02/2022 7:05 Results for this AM PHOTOENGRAVER procedure are i n the results section. ASPARTATE AM 04/02/2022 7:05 Results for this AMINOTRANSFERASE AM PHOTOENGRAVER procedure a re in the results section. ALANINE AM 04/02/2022 7:05 Results for this AMINOTRANSFERASE AM PHOTOENGRAVER procedure a re in the results section. ALKALINE PHOSPHATASE AM 04/02/2022 7:05 Resu lts for this AM PHOTOENGRAVER procedure are i n the results section. ALBUMIN LEVEL AM 04/02/2022 7:05 Results for this AM PHOTOENGRAVER procedure are i n the results section. PHOSPHORUS LEVEL AM 04/02/2022 7:05 Results for this AM PHOTOENGRAVER procedure are i n the results section. BASIC METABOLIC PANEL, AM 04/02/2022 7:05 CALCIUM IONIZED AM PHOTOENGRAVER MAGNESIUM LEVEL AM 04/02/2022 7:05 Results f or this AM PHOTOENGRAVER procedure are i n the results section. COMPLETE BLOOD COUNT W/ AM 04/02/2022 7:05 DIFFERENTIAL AM PHOTOENGRAVER HEPATIC FUNCTION PANEL AM 04/02/2022 7:05 AM PHOTOENGRAVER PROTHROMBIN TIME AM 04/02/2022 7:05 Results for this AM PHOTOENGRAVER procedure are i n the results section. CALCIUM IONIZED, VENOUS AM 04/02/2022 7:01 R esults for this AM PHOTOENGRAVER procedure are i n the results section. POC GLUCOSE SCREEN Routine 04/01/2022 10:20 Resul ts for this PM PHOTOENGRAVER procedure are i n the results section. POC GLUCOSE SCREEN Routine 04/01/2022 5:38 Result s for this PM PHOTOENGRAVER procedure are i n the results section. GENERAL LABORATORY ADD Routine 04/01/2022 4:14 Re sults for this ON TEST PM PHOTOENGRAVER procedure are i n the results section. POC GLUCOSE SCREEN Routine 04/01/2022 12:18 Resul ts for this PM PHOTOENGRAVER procedure are i n the results section. POC GLUCOSE SCREEN Routine 04/01/2022 10:39 Resul ts for this AM PHOTOENGRAVER procedure are i n the results section. POC GLUCOSE SCREEN Routine 04/01/2022 9:12 Result s for this AM PHOTOENGRAVER procedure are i n the results section. HEMOGLOBIN A1C AM 04/01/2022 8:09 Results fo r this AM PHOTOENGRAVER procedure are i n the results section. TMP INTERPRETATION Routine 04/01/2022 8:09 Result s for this ANTIBODY SCREEN AM PHOTOENGRAVER procedure ar e in NEGATIVE the results section. CLOT EXPIRATION DATE Routine 04/01/2022 8:09 Resu lts for this AM PHOTOENGRAVER procedure are i n the results section. ANTIBODY SCREEN Routine 04/01/2022 8:09 Results f or this AM PHOTOENGRAVER procedure are i n the results section. ABORH Routine 04/01/2022 8:09 Results for this AM PHOTOENGRAVER procedure are i n the results section. CALCIUM IONIZED, VENOUS AM 04/01/2022 8:09 R esults for this AM PHOTOENGRAVER procedure are i n the results section. MANUAL DIFFERENTIAL AM 04/01/2022 8:09 Resul ts for this AM PHOTOENGRAVER procedure are i n the results section. Results CBC AM 04/01/2022 8:09 Results for this AM PHOTOENGRAVER procedure are i n the results section. .GLOMERULAR FILTRATION AM 04/01/2022 8:09 Re sults for this RATE AM PHOTOENGRAVER procedure are i n the results section. SERUM CREATININE AM 04/01/2022 8:09 Results for this AM PHOTOENGRAVER procedure are i n the results section. ELECTROLYTE PANEL AM 04/01/2022 8:09 Results for this AM PHOTOENGRAVER procedure are i n the results section. BLOOD UREA NITROGEN AM 04/01/2022 8:09 Resul ts for this AM PHOTOENGRAVER procedure are i n the results section. GLUCOSE LEVEL AM 04/01/2022 8:09 Results for this AM PHOTOENGRAVER procedure are i n the results section. FRACTIONATED BILIRUBIN AM 04/01/2022 8:09 Re sults for this AM PHOTOENGRAVER procedure are i n the results section. TOTAL PROTEIN AM 04/01/2022 8:09 Results for this AM PHOTOENGRAVER procedure are i n the results section. ASPARTATE AM 04/01/2022 8:09 Results for this AMINOTRANSFERASE AM PHOTOENGRAVER procedure a re in the results section. ALANINE AM 04/01/2022 8:09 Results for this AMINOTRANSFERASE AM PHOTOENGRAVER procedure a re in the results section. ALKALINE PHOSPHATASE AM 04/01/2022 8:09 Resu lts for this AM PHOTOENGRAVER procedure are i n the results section. ALBUMIN LEVEL AM 04/01/2022 8:09 Results for this AM PHOTOENGRAVER procedure are i n the results section. TYPE AND SCREEN Routine 04/01/2022 8:09 AM PHOTOENGRAVER PHOSPHORUS LEVEL AM 04/01/2022 8:09 Results for this AM PHOTOENGRAVER procedure are i n the results section. BASIC METABOLIC PANEL, AM 04/01/2022 8:09 CALCIUM IONIZED AM PHOTOENGRAVER MAGNESIUM LEVEL AM 04/01/2022 8:09 Results f or this AM PHOTOENGRAVER procedure are i n the results section. COMPLETE BLOOD COUNT W/ AM 04/01/2022 8:09 DIFFERENTIAL AM PHOTOENGRAVER HEPATIC FUNCTION PANEL AM 04/01/2022 8:09 AM PHOTOENGRAVER PROTHROMBIN TIME AM 04/01/2022 8:09 Results for this AM PHOTOENGRAVER procedure are i n the results section. OSCILLATORY PEP Routine 04/01/2022 8:00 AM PHOTOENGRAVER POC GLUCOSE SCREEN Routine 03/31/2022 9:10 Result s for this PM PHOTOENGRAVER procedure are i n the results section. OSCILLATORY PEP Routine 03/31/2022 8:00 PM PHOTOENGRAVER POC GLUCOSE SCREEN Routine 03/31/2022 5:54 Result s for this PM PHOTOENGRAVER procedure are i n the results section. OSCILLATORY PEP Routine 03/31/2022 2:01 PM PHOTOENGRAVER POC GLUCOSE SCREEN Routine 03/31/2022 1:18 Result s for this PM PHOTOENGRAVER procedure are i n the results section. OSCILLATORY PEP Routine 03/31/2022 9:26 AM PHOTOENGRAVER OSCILLATORY PEP Routine 03/31/2022 9:26 AM PHOTOENGRAVER OSCILLATORY PEP Routine 03/31/2022 9:26 AM PHOTOENGRAVER POC GLUCOSE SCREEN Routine 03/31/2022 8:53 Result s for this AM PHOTOENGRAVER procedure are i n the results section. CALCIUM IONIZED, VENOUS AM 03/31/2022 6:16 R esults for this AM PHOTOENGRAVER procedure are i n the results section. MANUAL DIFFERENTIAL AM 03/31/2022 6:16 Resul ts for this AM PHOTOENGRAVER procedure are i n the results section. Results CBC AM 03/31/2022 6:16 Results for this AM PHOTOENGRAVER procedure are i n the results section. .GLOMERULAR FILTRATION AM 03/31/2022 6:16 Re sults for this RATE AM PHOTOENGRAVER procedure are i n the results section. SERUM CREATININE AM 03/31/2022 6:16 Results for this AM PHOTOENGRAVER procedure are i n the results section. ELECTROLYTE PANEL AM 03/31/2022 6:16 Results for this AM PHOTOENGRAVER procedure are i n the results section. BLOOD UREA NITROGEN AM 03/31/2022 6:16 Resul ts for this AM PHOTOENGRAVER procedure are i n the results section. GLUCOSE LEVEL AM 03/31/2022 6:16 Results for this AM PHOTOENGRAVER procedure are i n the results section. FRACTIONATED BILIRUBIN AM 03/31/2022 6:16 Re sults for this AM PHOTOENGRAVER procedure are i n the results section. TOTAL PROTEIN AM 03/31/2022 6:16 Results for this AM PHOTOENGRAVER procedure are i n the results section. ASPARTATE AM 03/31/2022 6:16 Results for this AMINOTRANSFERASE AM PHOTOENGRAVER procedure a re in the results section. ALANINE AM 03/31/2022 6:16 Results for this AMINOTRANSFERASE AM PHOTOENGRAVER procedure a re in the results section. ALKALINE PHOSPHATASE AM 03/31/2022 6:16 Resu lts for this AM PHOTOENGRAVER procedure are i n the results section. ALBUMIN LEVEL AM 03/31/2022 6:16 Results for this AM PHOTOENGRAVER procedure are i n the results section. PHOSPHORUS LEVEL AM 03/31/2022 6:16 Results for this AM PHOTOENGRAVER procedure are i n the results section. BASIC METABOLIC PANEL, AM 03/31/2022 6:16 CALCIUM IONIZED AM PHOTOENGRAVER MAGNESIUM LEVEL AM 03/31/2022 6:16 Results f or this AM PHOTOENGRAVER procedure are i n the results section. COMPLETE BLOOD COUNT W/ AM 03/31/2022 6:16 DIFFERENTIAL AM PHOTOENGRAVER HEPATIC FUNCTION PANEL AM 03/31/2022 6:16 AM PHOTOENGRAVER PROTHROMBIN TIME AM 03/31/2022 6:16 Results for this AM PHOTOENGRAVER procedure are i n the results section. POC GLUCOSE SCREEN Routine 03/30/2022 10:42 Resul ts for this PM PHOTOENGRAVER procedure are i n the results section. POC GLUCOSE SCREEN Routine 03/30/2022 8:03 Result s for this PM PHOTOENGRAVER procedure are i n the results section. POC GLUCOSE SCREEN Routine 03/30/2022 6:00 Result s for this PM PHOTOENGRAVER procedure are i n the results section. PICC/NON-TUNNELED CVAD Routine 03/30/2022 1:37 Encounter for R esults for this REMOVAL PM PHOTOENGRAVER adjustment and procedure are in management of the results vascular access section. device POC GLUCOSE SCREEN Routine 03/30/2022 1:33 Result s for this PM PHOTOENGRAVER procedure are i n the results section. POC GLUCOSE SCREEN Routine 03/30/2022 1:30 Result s for this PM PHOTOENGRAVER procedure are i n the results section. POC CRITICAL Routine 03/30/2022 1:30 Results for this PM PHOTOENGRAVER procedure are i n the results section. POC GLUCOSE SCREEN Routine 03/30/2022 9:59 Result s for this AM PHOTOENGRAVER procedure are i n the results section. OSCILLATORY PEP Routine 03/30/2022 8:00 AM PHOTOENGRAVER FRACTIONATED BILIRUBIN Routine 03/30/2022 7:36 Re sults for this AM PHOTOENGRAVER procedure are i n the results section. TOTAL PROTEIN Routine 03/30/2022 7:36 Results for this AM PHOTOENGRAVER procedure are i n the results section. ASPARTATE Routine 03/30/2022 7:36 Results for this AMINOTRANSFERASE AM PHOTOENGRAVER procedure a re in the results section. ALANINE Routine 03/30/2022 7:36 Results for this AMINOTRANSFERASE AM PHOTOENGRAVER procedure a re in the results section. ALKALINE PHOSPHATASE Routine 03/30/2022 7:36 Resu lts for this AM PHOTOENGRAVER procedure are i n the results section. ALBUMIN LEVEL Routine 03/30/2022 7:36 Results for this AM PHOTOENGRAVER procedure are i n the results section. MANUAL DIFFERENTIAL AM 03/30/2022 7:36 Resul ts for this AM PHOTOENGRAVER procedure are i n the results section. Results CBC AM 03/30/2022 7:36 Results for this AM PHOTOENGRAVER procedure are i n the results section. CALCIUM IONIZED, VENOUS Routine 03/30/2022 7:36 R esults for this AM PHOTOENGRAVER procedure are i n the results section. .GLOMERULAR FILTRATION Routine 03/30/2022 7:36 Re sults for this RATE AM PHOTOENGRAVER procedure are i n the results section. SERUM CREATININE Routine 03/30/2022 7:36 Results for this AM PHOTOENGRAVER procedure are i n the results section. ELECTROLYTE PANEL Routine 03/30/2022 7:36 Results for this AM [employer]OTOENG[employer] procedure are i n the results section. BLOOD UREA NITROGEN Routine 03/30/2022 7:36 Resul ts for this AM [employer]ENG[employer] procedure are i n the results section. GLUCOSE LEVEL Routine 03/30/2022 7:36 Results for this AM [employer] procedure are i n the results section. COMPLETE BLOOD COUNT W/ AM 03/30/2022 7:36 DIFFERENTIAL AM PHOTOENG[employer]VER APTT AM 03/30/2022 7:36 Results for this AM [employer] procedure are i n the results section. PROTHROMBIN TIME AM 03/30/2022 7:36 Results for this AM [employer] procedure are i n the results section. MAGNESIUM LEVEL Routine 03/30/2022 7:36 Results f or this AM [employer] procedure are i n the results section. PHOSPHORUS LEVEL Routine 03/30/2022 7:36 Results for this AM [employer] procedure are i n the results section. BASIC METABOLIC PANEL, Routine 03/30/2022 7:36 CALCIUM IONIZED AM [employer]OTOENG[employer]VER POC GLUCOSE SCREEN Routine 03/30/2022 5:52 Result s for this AM [employer] procedure are i n the results section. POC GLUCOSE SCREEN Routine 03/29/2022 10:16 Resul ts for this PM PHOTOENGRAVER procedure are i n the results section. OSCILLATORY PEP Routine 03/29/2022 8:00 PM PHOTOENGRAVER CALCIUM IONIZED, VENOUS Routine 03/29/2022 5:38 R esults for this PM PHOTOENG[employer] procedure are i n the results section. .GLOMERULAR FILTRATION Routine 03/29/2022 5:38 Re sults for this RATE PM [employer]OTOENG[employer] procedure are i n the results section. SERUM CREATININE Routine 03/29/2022 5:38 Results for this PM [employer]ENG[employer] procedure are i n the results section. ELECTROLYTE PANEL Routine 03/29/2022 5:38 Results for this PM [employer]OTOENG[employer] procedure are i n the results section. BLOOD UREA NITROGEN Routine 03/29/2022 5:38 Resul ts for this PM [employer]ENG[employer] procedure are i n the results section. GLUCOSE LEVEL Routine 03/29/2022 5:38 Results for this PM [employer]OTOENG[employer] procedure are i n the results section. MAGNESIUM LEVEL Routine 03/29/2022 5:38 Results f or this PM [employer]ENG[employer] procedure are i n the results section. PHOSPHORUS LEVEL Routine 03/29/2022 5:38 Results for this PM [employer] procedure are i n the results section. BASIC METABOLIC PANEL, Routine 03/29/2022 5:38 CALCIUM IONIZED PM [employer]OTOENGRAVER POC GLUCOSE SCREEN Routine 03/29/2022 5:21 Result s for this PM [employer]ENG[employer] procedure are i n the results section. OSCILLATORY PEP Routine 03/29/2022 4:00 PM PHOTOENG[employer]VER OSCILLATORY PEP Routine 03/29/2022 12:00 PM PHOTOENGRAVER POC GLUCOSE SCREEN Routine 03/29/2022 11:15 Resul ts for this AM [employer] procedure are i n the results section. CLOT EXPIRATION DATE Routine 03/29/2022 10:16 Res ults for this AM [employer] procedure are i n the results section. TMP INTERPRETATION Routine 03/29/2022 10:16 Resul ts for this ANTIBODY SCREEN AM [employer]OTOENG[employer]VER procedure ar e in NEGATIVE the results section. CALCIUM IONIZED, VENOUS Routine 03/29/2022 10:16 Results for this AM [employer] procedure are i n the results section. .GLOMERULAR FILTRATION Routine 03/29/2022 10:16 R esults for this RATE AM [employer]ENG[employer] procedure are i n the results section. SERUM CREATININE Routine 03/29/2022 10:16 Results for this AM [employer] procedure are i n the results section. ELECTROLYTE PANEL Routine 03/29/2022 10:16 Result s for this AM [employer] procedure are i n the results section. BLOOD UREA NITROGEN Routine 03/29/2022 10:16 Resu lts for this AM [employer] procedure are i n the results section. GLUCOSE LEVEL Routine 03/29/2022 10:16 Results fo r this AM [employer] procedure are i n the results section. ANTIBODY SCREEN Routine 03/29/2022 10:16 Results for this AM [employer] procedure are i n the results section. ABORH Routine 03/29/2022 10:16 Results for this AM [employer] procedure are i n the results section. MAGNESIUM LEVEL Routine 03/29/2022 10:16 Results for this AM [employer] procedure are i n the results section. PHOSPHORUS LEVEL Routine 03/29/2022 10:16 Results for this AM [employer] procedure are i n the results section. LACTIC ACID, VENOUS Routine 03/29/2022 10:16 Resu lts for this AM [employer] procedure are i n the results section. BASIC METABOLIC PANEL, Routine 03/29/2022 10:16 CALCIUM IONIZED AM [employer]OTOENG[employer] ARTERIAL BLOOD GAS Routine 03/29/2022 10:16 Resul ts for this AM [employer] procedure are i n the results section. TYPE AND SCREEN Routine 03/29/2022 10:16 AM PHOTOENG[employer]VER POC GLUCOSE SCREEN Routine 03/29/2022 8:07 Result s for this AM [employer] procedure are i n the results section. OSCILLATORY PEP Routine 03/29/2022 8:00 AM [employer]OTOENG[employer]VER POC GLUCOSE SCREEN Routine 03/29/2022 5:16 Result s for this AM [employer] procedure are i n the results section. XR CHEST 1 VW PORTABLE Routine 03/29/2022 1:42 Re sults for this AM [employer] procedure are i n the results section. MANUAL DIFFERENTIAL STAT 03/29/2022 12:44 Resu lts for this AM [employer] procedure are i n the results section. Results CBC STAT 03/29/2022 12:44 Results for this AM [employer] procedure are i n the results section. FRACTIONATED BILIRUBIN AM 03/29/2022 12:44 R esults for this AM [employer] procedure are i n the results section. TOTAL PROTEIN AM 03/29/2022 12:44 Results fo r this AM [employer] procedure are i n the results section. ASPARTATE AM 03/29/2022 12:44 Results for this AMINOTRANSFERASE AM PHOTOENGRAVER procedure a re in the results section. ALANINE AM 03/29/2022 12:44 Results for this AMINOTRANSFERASE AM PHOTOENGRAVER procedure a re in the results section. ALKALINE PHOSPHATASE AM 03/29/2022 12:44 Res ults for this AM [employer] procedure are i n the results section. ALBUMIN LEVEL AM 03/29/2022 12:44 Results fo r this AM [employer] procedure are i n the results section. CALCIUM IONIZED, VENOUS Routine 03/29/2022 12:44 Results for this AM [employer] procedure are i n the results section. .GLOMERULAR FILTRATION Routine 03/29/2022 12:44 R esults for this RATE AM [employer] procedure are i n the results section. SERUM CREATININE Routine 03/29/2022 12:44 Results for this AM [employer] procedure are i n the results section. ELECTROLYTE PANEL Routine 03/29/2022 12:44 Result s for this AM [employer] procedure are i n the results section. BLOOD UREA NITROGEN Routine 03/29/2022 12:44 Resu lts for this AM [employer] procedure are i n the results section. GLUCOSE LEVEL Routine 03/29/2022 12:44 Results fo r this AM [employer] procedure are i n the results section. COMPLETE BLOOD COUNT W/ AM 03/29/2022 12:44 DIFFERENTIAL AM [employer]OTOENG[employer] HEPATIC FUNCTION PANEL AM 03/29/2022 12:44 AM PHOTOENGRAVER APTT AM 03/29/2022 12:44 Results for this AM [employer] procedure are i n the results section. PROTHROMBIN TIME AM 03/29/2022 12:44 Results for this AM [employer] procedure are i n the results section. MAGNESIUM LEVEL Routine 03/29/2022 12:44 Results for this AM [employer] procedure are i n the results section. PHOSPHORUS LEVEL Routine 03/29/2022 12:44 Results for this AM [employer] procedure are i n the results section. LACTIC ACID, VENOUS Routine 03/29/2022 12:44 Resu lts for this AM [employer] procedure are i n the results section. BASIC METABOLIC PANEL, Routine 03/29/2022 12:44 CALCIUM IONIZED AM [employer]ENG[employer] ARTERIAL BLOOD GAS Routine 03/29/2022 12:44 Resul ts for this AM [employer] procedure are i n the results section. POC GLUCOSE SCREEN Routine 03/28/2022 11:26 Resul ts for this PM [employer]OTOENGRA[employer] procedure are i n the results section. POC GLUCOSE SCREEN Routine 03/28/2022 8:13 Result s for this PM [employer]OTOENG[employer] procedure are i n the results section. OSCILLATORY PEP Routine 03/28/2022 8:00 PM PHOTOENGRAVER CALCIUM IONIZED, VENOUS Routine 03/28/2022 5:44 R esults for this PM PHOTOENGRA[employer] procedure are i n the results section. .GLOMERULAR FILTRATION Routine 03/28/2022 5:44 Re sults for this RATE PM [employer]ENGRA[employer] procedure are i n the results section. SERUM CREATININE Routine 03/28/2022 5:44 Results for this PM [employer] procedure are i n the results section. ELECTROLYTE PANEL Routine 03/28/2022 5:44 Results for this PM [employer]ENG[employer] procedure are i n the results section. BLOOD UREA NITROGEN Routine 03/28/2022 5:44 Resul ts for this PM [employer]ENG[employer] procedure are i n the results section. GLUCOSE LEVEL Routine 03/28/2022 5:44 Results for this PM [employer] procedure are i n the results section. MAGNESIUM LEVEL Routine 03/28/2022 5:44 Results f or this PM [employer]OTOENG[employer] procedure are i n the results section. PHOSPHORUS LEVEL Routine 03/28/2022 5:44 Results for this PM [employer]ENG[employer] procedure are i n the results section. LACTIC ACID, VENOUS Routine 03/28/2022 5:44 Resul ts for this PM [employer]ENGRA[employer] procedure are i n the results section. BASIC METABOLIC PANEL, Routine 03/28/2022 5:44 CALCIUM IONIZED PM PHOTOENGRAVER ARTERIAL BLOOD GAS Routine 03/28/2022 5:44 Result s for this PM [employer]ENG[employer] procedure are i n the results section. POC GLUCOSE SCREEN Routine 03/28/2022 4:56 Result s for this PM [employer]OTOENGRA[employer] procedure are i n the results section. OSCILLATORY PEP Routine 03/28/2022 4:00 PM PHOTOENGRAVER OSCILLATORY PEP Routine 03/28/2022 2:07 PM PHOTOENGRAVER OSCILLATORY PEP Routine 03/28/2022 2:07 PM PHOTOENGRAVER OSCILLATORY PEP Routine 03/28/2022 2:07 PM PHOTOENGRAVER OSCILLATORY PEP Routine 03/28/2022 2:07 PM PHOTOENGRAVER ARTERIAL BLOOD GAS STAT 03/28/2022 11:50 Resul ts for this AM [employer] procedure are i n the results section. CALCIUM IONIZED, VENOUS STAT 03/28/2022 11:50 Results for this AM [employer] procedure are i n the results section. VANCOMYCIN LEVEL TROUGH Timed Study 03/28/2022 11:50 Results for this AM [employer] procedure are i n the results section. POC GLUCOSE SCREEN Routine 03/28/2022 11:43 Resul ts for this AM [employer] procedure are i n the results section. .GLOMERULAR FILTRATION Routine 03/28/2022 10:22 R esults for this RATE AM [employer]ENG[employer] procedure are i n the results section. SERUM CREATININE Routine 03/28/2022 10:22 Results for this AM [employer] procedure are i n the results section. ELECTROLYTE PANEL Routine 03/28/2022 10:22 Result s for this AM [employer] procedure are i n the results section. BLOOD UREA NITROGEN Routine 03/28/2022 10:22 Resu lts for this AM [employer] procedure are i n the results section. GLUCOSE LEVEL Routine 03/28/2022 10:22 Results fo r this AM [employer] procedure are i n the results section. MAGNESIUM LEVEL Routine 03/28/2022 10:22 Results for this AM [employer] procedure are i n the results section. PHOSPHORUS LEVEL Routine 03/28/2022 10:22 Results for this AM [employer] procedure are i n the results section. BASIC METABOLIC PANEL, Routine 03/28/2022 10:22 CALCIUM IONIZED AM PHOTOENG[employer]VER ECHOCARDIOGRAM 2D Routine 03/28/2022 8:20 Results for this LIMITED - FOLLOW UP AM PHOTOENGRAVER procedur e are in the results section. POC GLUCOSE SCREEN Routine 03/28/2022 5:53 Result s for this AM [employer] procedure are i n the results section. XR CHEST 1 VW PORTABLE Routine 03/28/2022 2:30 Re sults for this AM [employer] procedure are i n the results section. MANUAL DIFFERENTIAL AM 03/28/2022 12:48 Resu lts for this AM [employer] procedure are i n the results section. Results CBC STAT 03/28/2022 12:48 Results for this AM [employer] procedure are i n the results section. FRACTIONATED BILIRUBIN AM 03/28/2022 12:48 R esults for this AM [employer] procedure are i n the results section. TOTAL PROTEIN AM 03/28/2022 12:48 Results fo r this AM [employer] procedure are i n the results section. ASPARTATE AM 03/28/2022 12:48 Results for this AMINOTRANSFERASE AM PHOTOENGRAVER procedure a re in the results section. ALANINE AM 03/28/2022 12:48 Results for this AMINOTRANSFERASE AM PHOTOENGRAVER procedure a re in the results section. ALKALINE PHOSPHATASE AM 03/28/2022 12:48 Res ults for this AM [employer] procedure are i n the results section. ALBUMIN LEVEL AM 03/28/2022 12:48 Results fo r this AM [employer] procedure are i n the results section. CALCIUM IONIZED, VENOUS Routine 03/28/2022 12:48 Results for this AM [employer] procedure are i n the results section. .GLOMERULAR FILTRATION Routine 03/28/2022 12:48 R esults for this RATE AM [employer] procedure are i n the results section. SERUM CREATININE Routine 03/28/2022 12:48 Results for this AM [employer] procedure are i n the results section. ELECTROLYTE PANEL Routine 03/28/2022 12:48 Result s for this AM [employer] procedure are i n the results section. BLOOD UREA NITROGEN Routine 03/28/2022 12:48 Resu lts for this AM [employer] procedure are i n the results section. GLUCOSE LEVEL Routine 03/28/2022 12:48 Results fo r this AM [employer] procedure are i n the results section. COMPLETE BLOOD COUNT W/ AM 03/28/2022 12:48 DIFFERENTIAL AM [employer]OTOENG[employer] HEPATIC FUNCTION PANEL AM 03/28/2022 12:48 AM PHOTOENGRAVER APTT AM 03/28/2022 12:48 Results for this AM [employer] procedure are i n the results section. PROTHROMBIN TIME AM 03/28/2022 12:48 Results for this AM [employer] procedure are i n the results section. MAGNESIUM LEVEL Routine 03/28/2022 12:48 Results for this AM [employer] procedure are i n the results section. PHOSPHORUS LEVEL Routine 03/28/2022 12:48 Results for this AM [employer] procedure are i n the results section. LACTIC ACID, VENOUS Routine 03/28/2022 12:48 Resu lts for this AM [employer] procedure are i n the results section. BASIC METABOLIC PANEL, Routine 03/28/2022 12:48 CALCIUM IONIZED AM [employer]ENG[employer]VER ARTERIAL BLOOD GAS Routine 03/28/2022 12:48 Resul ts for this AM [employer] procedure are i n the results section. POC GLUCOSE SCREEN Routine 03/27/2022 11:26 Resul ts for this PM [employer]OTOENGRAVER procedure are i n the results section. POC GLUCOSE SCREEN Routine 03/27/2022 5:38 Result s for this PM [employer]ENG[employer] procedure are i n the results section. CALCIUM IONIZED, VENOUS Routine 03/27/2022 5:36 R esults for this PM [employer]OTOENGRA[employer] procedure are i n the results section. .GLOMERULAR FILTRATION Routine 03/27/2022 5:36 Re sults for this RATE PM [employer]ENGRAVER procedure are i n the results section. SERUM CREATININE Routine 03/27/2022 5:36 Results for this PM [employer]ENG[employer] procedure are i n the results section. ELECTROLYTE PANEL Routine 03/27/2022 5:36 Results for this PM [employer]ENG[employer] procedure are i n the results section. BLOOD UREA NITROGEN Routine 03/27/2022 5:36 Resul ts for this PM [employer]ENG[employer] procedure are i n the results section. GLUCOSE LEVEL Routine 03/27/2022 5:36 Results for this PM [employer]ENG[employer] procedure are i n the results section. MAGNESIUM LEVEL Routine 03/27/2022 5:36 Results f or this PM [employer]ENGRA[employer] procedure are i n the results section. PHOSPHORUS LEVEL Routine 03/27/2022 5:36 Results for this PM [employer]ENG[employer] procedure are i n the results section. LACTIC ACID, VENOUS Routine 03/27/2022 5:36 Resul ts for this PM [employer]ENGRA[employer] procedure are i n the results section. BASIC METABOLIC PANEL, Routine 03/27/2022 5:36 CALCIUM IONIZED PM PHOTOENGRAVER ARTERIAL BLOOD GAS Routine 03/27/2022 5:36 Result s for this PM [employer]OTOENGRA[employer] procedure are i n the results section. US RENAL STAT 03/27/2022 3:52 Results for this PM [employer]ENG[employer] procedure are i n the results section. POC GLUCOSE SCREEN Routine 03/27/2022 11:47 Resul ts for this AM [employer] procedure are i n the results section. CALCIUM IONIZED, VENOUS Routine 03/27/2022 10:19 Results for this AM [employer] procedure are i n the results section. .GLOMERULAR FILTRATION Routine 03/27/2022 10:19 R esults for this RATE AM [employer]ENG[employer] procedure are i n the results section. SERUM CREATININE Routine 03/27/2022 10:19 Results for this AM [employer] procedure are i n the results section. ELECTROLYTE PANEL Routine 03/27/2022 10:19 Result s for this AM [employer] procedure are i n the results section. BLOOD UREA NITROGEN Routine 03/27/2022 10:19 Resu lts for this AM [employer] procedure are i n the results section. GLUCOSE LEVEL Routine 03/27/2022 10:19 Results fo r this AM [employer] procedure are i n the results section. MAGNESIUM LEVEL Routine 03/27/2022 10:19 Results for this AM [employer] procedure are i n the results section. PHOSPHORUS LEVEL Routine 03/27/2022 10:19 Results for this AM [employer] procedure are i n the results section. LACTIC ACID, VENOUS Routine 03/27/2022 10:19 Resu lts for this AM [employer] procedure are i n the results section. BASIC METABOLIC PANEL, Routine 03/27/2022 10:19 CALCIUM IONIZED AM [employer]ENG[employer]VER ARTERIAL BLOOD GAS Routine 03/27/2022 10:19 Resul ts for this AM [employer] procedure are i n the results section. ARTERIAL BLOOD GAS Timed Study 03/27/2022 8:32 Result s for this AM [employer] procedure are i n the results section. POC GLUCOSE SCREEN Routine 03/27/2022 7:27 Result s for this AM [employer] procedure are i n the results section. POC GLUCOSE SCREEN Routine 03/27/2022 5:52 Result s for this AM [employer] procedure are i n the results section. POC GLUCOSE SCREEN Routine 03/27/2022 4:58 Result s for this AM [employer] procedure are i n the results section. POC GLUCOSE SCREEN Routine 03/27/2022 4:06 Result s for this AM [employer] procedure are i n the results section. VANCOMYCIN LEVEL TROUGH Timed Study 03/27/2022 3:30 R esults for this AM [employer]ENG[employer] procedure are i n the results section. POC GLUCOSE SCREEN Routine 03/27/2022 3:06 Result s for this AM [employer] procedure are i n the results section. XR CHEST 1 VW PORTABLE Routine 03/27/2022 2:50 Re sults for this AM [employer]ENG[employer] procedure are i n the results section. MANUAL DIFFERENTIAL STAT 03/27/2022 2:16 Resul ts for this AM [employer] procedure are i n the results section. Results CBC STAT 03/27/2022 2:16 Results for this AM [employer] procedure are i n the results section. COMPLETE BLOOD COUNT W/ AM 03/27/2022 2:16 DIFFERENTIAL AM [employer]VER POC GLUCOSE SCREEN Routine 03/27/2022 2:03 Result s for this AM [employer] procedure are i n the results section. FRACTIONATED BILIRUBIN AM 03/27/2022 1:36 Re sults for this AM [employer] procedure are i n the results section. TOTAL PROTEIN AM 03/27/2022 1:36 Results for this AM [employer] procedure are i n the results section. ASPARTATE AM 03/27/2022 1:36 Results for this AMINOTRANSFERASE AM PHOTOENGRAVER procedure a re in the results section. ALANINE AM 03/27/2022 1:36 Results for this AMINOTRANSFERASE AM PHOTOENGRAVER procedure a re in the results section. ALKALINE PHOSPHATASE AM 03/27/2022 1:36 Resu lts for this AM [employer]ENG[employer] procedure are i n the results section. ALBUMIN LEVEL AM 03/27/2022 1:36 Results for this AM [employer] procedure are i n the results section. CALCIUM IONIZED, VENOUS Routine 03/27/2022 1:36 R esults for this AM [employer] procedure are i n the results section. .GLOMERULAR FILTRATION Routine 03/27/2022 1:36 Re sults for this RATE AM [employer] procedure are i n the results section. SERUM CREATININE Routine 03/27/2022 1:36 Results for this AM [employer] procedure are i n the results section. ELECTROLYTE PANEL Routine 03/27/2022 1:36 Results for this AM [employer] procedure are i n the results section. BLOOD UREA NITROGEN Routine 03/27/2022 1:36 Resul ts for this AM [employer] procedure are i n the results section. GLUCOSE LEVEL Routine 03/27/2022 1:36 Results for this AM [employer] procedure are i n the results section. HEPATIC FUNCTION PANEL AM 03/27/2022 1:36 AM PHOTOENGRAVER APTT AM 03/27/2022 1:36 Results for this AM [employer] procedure are i n the results section. PROTHROMBIN TIME AM 03/27/2022 1:36 Results for this AM [employer] procedure are i n the results section. MAGNESIUM LEVEL Routine 03/27/2022 1:36 Results f or this AM [employer]ENG[employer] procedure are i n the results section. PHOSPHORUS LEVEL Routine 03/27/2022 1:36 Results for this AM [employer] procedure are i n the results section. LACTIC ACID, VENOUS Routine 03/27/2022 1:36 Resul ts for this AM [employer] procedure are i n the results section. BASIC METABOLIC PANEL, Routine 03/27/2022 1:36 CALCIUM IONIZED AM [employer]OTOENGRAVER ARTERIAL BLOOD GAS Routine 03/27/2022 1:36 Result s for this AM [employer] procedure are i n the results section. CARDIAC PANEL Timed Study 03/27/2022 1:36 Results for this AM [employer] procedure are i n the results section. POC GLUCOSE SCREEN Routine 03/27/2022 1:03 Result s for this AM [employer] procedure are i n the results section. POC GLUCOSE SCREEN Routine 03/26/2022 11:49 Resul ts for this PM [employer]ENGRA[employer] procedure are i n the results section. POC GLUCOSE SCREEN Routine 03/26/2022 10:33 Resul ts for this PM [employer]ENGRA[employer] procedure are i n the results section. POC GLUCOSE SCREEN Routine 03/26/2022 9:30 Result s for this PM [employer]RA[employer] procedure are i n the results section. POC GLUCOSE SCREEN Routine 03/26/2022 8:33 Result s for this PM [employer]ENG[employer] procedure are i n the results section. POC GLUCOSE SCREEN Routine 03/26/2022 7:33 Result s for this PM [employer]ENGRA[employer] procedure are i n the results section. POC GLUCOSE SCREEN Routine 03/26/2022 6:35 Result s for this PM [employer] procedure are i n the results section. CALCIUM IONIZED, VENOUS Routine 03/26/2022 5:20 R esults for this PM [employer]ENG[employer] procedure are i n the results section. .GLOMERULAR FILTRATION Routine 03/26/2022 5:20 Re sults for this RATE PM [employer]ENG[employer] procedure are i n the results section. SERUM CREATININE Routine 03/26/2022 5:20 Results for this PM [employer] procedure are i n the results section. ELECTROLYTE PANEL Routine 03/26/2022 5:20 Results for this PM [employer] procedure are i n the results section. BLOOD UREA NITROGEN Routine 03/26/2022 5:20 Resul ts for this PM [employer]ENGRA[employer] procedure are i n the results section. GLUCOSE LEVEL Routine 03/26/2022 5:20 Results for this PM [employer] procedure are i n the results section. MAGNESIUM LEVEL Routine 03/26/2022 5:20 Results f or this PM [employer]ENG[employer] procedure are i n the results section. PHOSPHORUS LEVEL Routine 03/26/2022 5:20 Results for this PM [employer]ENG[employer] procedure are i n the results section. LACTIC ACID, VENOUS Routine 03/26/2022 5:20 Resul ts for this PM [employer] procedure are i n the results section. BASIC METABOLIC PANEL, Routine 03/26/2022 5:20 CALCIUM IONIZED PM [employer]OTOENG[employer]VER ARTERIAL BLOOD GAS Routine 03/26/2022 5:20 Result s for this PM [employer] procedure are i n the results section. POC GLUCOSE SCREEN Routine 03/26/2022 4:10 Result s for this PM [employer] procedure are i n the results section. ARTERIAL BLOOD GAS STAT 03/26/2022 3:50 Result s for this PM [employer] procedure are i n the results section. CARDIAC PANEL Timed Study 03/26/2022 3:50 Results for this PM [employer] procedure are i n the results section. POC GLUCOSE SCREEN Routine 03/26/2022 3:06 Result s for this PM [employer] procedure are i n the results section. POC GLUCOSE SCREEN Routine 03/26/2022 2:02 Result s for this PM [employer] procedure are i n the results section. LACTIC ACID, VENOUS STAT 03/26/2022 1:31 Resul ts for this PM [employer] procedure are i n the results section. PROCALCITONIN STAT 03/26/2022 1:31 Results for this PM [employer] procedure are i n the results section. C REACTIVE PROTEIN STAT 03/26/2022 1:31 Result s for this PM [employer] procedure are i n the results section. ANCA PANEL FOR STAT 03/26/2022 1:31 Results fo r this VASCULITIS, SERUM PM [employer]ENG[employer] procedure are in the results section. SEDIMENTATION RATE STAT 03/26/2022 1:31 Result s for this NON-AUTOMATED PM [employer] procedure are in the results section. ANTINUCLEAR ANTIBODY STAT 03/26/2022 1:31 Resu lts for this HEP-2 SUBSTRATE IGG PM [employer]ENG[employer] procedur e are in the results section. BLOODCULTURE Routine 03/26/2022 1:31 Results for this PM [employer] procedure are i n the results section. BLOODCULTURE Routine 03/26/2022 1:31 Results for this PM [employer] procedure are i n the results section. VANCOMYCIN LEVEL TROUGH Timed Study 03/26/2022 12:24 Results for this PM [employer] procedure are i n the results section. ECHOCARDIOGRAM 2D STAT 03/26/2022 12:19 Result s for this COMPLETE W CONTRAST PM [employer] procedur e are in the results section. PROCEDURE FOR CODING Routine 03/26/2022 11:37 Acute respirator y Results for this AM PHOTOENGRAVER failure with procedure are i n hypoxia the results Cardiac arrest, section. not otherwise specified STREPTOCOCCAL URINE Routine 03/26/2022 11:23 Resu lts for this ANTIGEN PATH REVIEW AM PHOTOENGRAVER procedur e are in the results section. LEGIONELLA URINE Routine 03/26/2022 11:23 Results for this ANTIGEN PATH REVIEW AM PHOTOENGRAVER procedur e are in the results section. MRSA SCREENING CULTURE Routine 03/26/2022 11:23 R esults for this AM PHOTOENGRAVER procedure are i n the results section. LEGIONELLA URINE Routine 03/26/2022 11:23 Results for this ANTIGEN AM PHOTOENGRAVER procedure are i n the results section. STREPTOCOCCUS Routine 03/26/2022 11:23 Results fo r this PNEUMONIAE URINE AM PHOTOENGRAVER procedure a re in ANTIGEN the results section. POC GLUCOSE SCREEN Routine 03/26/2022 11:21 Resul ts for this AM PHOTOENGRAVER procedure are i n the results section. APTT STAT 03/26/2022 11:01 Results for this AM PHOTOENGRAVER procedure are i n the results section. FIBRINOGEN ACTIVITY STAT 03/26/2022 11:01 Resu lts for this AM PHOTOENGRAVER procedure are i n the results section. PROTHROMBIN TIME STAT 03/26/2022 11:01 Results for this AM PHOTOENGRAVER procedure are i n the results section. ARTERIAL BLOOD GAS STAT 03/26/2022 11:01 Resul ts for this AM PHOTOENGRAVER procedure are i n the results section. HC ARTERIAL LINE FOR BP Routine 03/26/2022 10:45 Acute respira tory Results for this MON AM PHOTOENGRAVER failure with procedure are i n hypoxia the results Cardiac arrest, section. not otherwise specified NC ARTL CATHJ/CANNULJ Routine 03/26/2022 10:45 Acute respirato ry Results for this MNTR/TRANSFUSION SPX AM PHOTOENGRAVER failure with procedu re are in PRQ hypoxia the results Cardiac arrest, section. not otherwise specified XR CHEST 1 VW STAT 03/26/2022 10:27 Results fo r this AM PHOTOENGRAVER procedure are i n the results section. [place] MISCELLANEOUS TEST Routine 03/26/2022 10:24 Results for this AM PHOTOENGRAVER procedure are i n the results section. BLOOD UREA NITROGEN STAT 03/26/2022 10:24 Resu lts for this AM PHOTOENGRAVER procedure are i n the results section. CALCIUM IONIZED, VENOUS STAT 03/26/2022 10:24 Results for this AM PHOTOENGRAVER procedure are i n the results section. .GLOMERULAR FILTRATION STAT 03/26/2022 10:24 R esults for this RATE AM PHOTOENGRAVER procedure are i n the results section. SERUM CREATININE STAT 03/26/2022 10:24 Results for this AM PHOTOENGRAVER procedure are i n the results section. ELECTROLYTE PANEL STAT 03/26/2022 10:24 Result s for this AM PHOTOENGRAVER procedure are i n the results section. GLUCOSE LEVEL STAT 03/26/2022 10:24 Results fo r this AM PHOTOENGRAVER procedure are i n the results section. NT PRO BNP Routine 03/26/2022 10:24 Results for this AM PHOTOENGRAVER procedure are i n the results section. CARDIAC PANEL Timed Study 03/26/2022 10:24 Results fo r this AM PHOTOENGRAVER procedure are i n the results section. PHOSPHORUS LEVEL STAT 03/26/2022 10:24 Results for this AM PHOTOENGRAVER procedure are i n the results section. MAGNESIUM LEVEL STAT 03/26/2022 10:24 Results for this AM PHOTOENGRAVER procedure are i n the results section. BASIC METABOLIC PANEL, STAT 03/26/2022 10:24 CALCIUM IONIZED AM PHOTOENGRAVER LEGIONELLA CULTURE Routine 03/26/2022 10:17 Resul ts for this AM PHOTOENGRAVER procedure are i n the results section. POC CHEM 8 Routine 03/26/2022 10:01 Results for this AM PHOTOENGRAVER procedure are i n the results section. POC ARTERIAL BLOOD GAS Routine 03/26/2022 9:55 Re sults for this AM PHOTOENGRAVER procedure are i n the results section. POC CRITICAL Routine 03/26/2022 9:55 Results for this AM PHOTOENGRAVER procedure are i n the results section. AFB CULTURE W/ SMEAR Routine 03/26/2022 9:36 Resu lts for this AM PHOTOENGRAVER procedure are i n the results section. FUNGUS CULTURE Routine 03/26/2022 9:36 Results fo r this AM PHOTOENGRAVER procedure are i n the results section. LOWER RESPIRATORY Routine 03/26/2022 9:36 Results for this CULTURE W/ GRAM STAIN AM PHOTOENGRAVER proced ure are in the results section. GENERAL LABORATORY ADD Routine 03/26/2022 9:23 Re sults for this ON TEST AM PHOTOENGRAVER procedure are i n the results section. POC ARTERIAL BLOOD GAS Routine 03/26/2022 9:12 Re sults for this AM PHOTOENGRAVER procedure are i n the results section. POC CRITICAL Routine 03/26/2022 9:12 Results for this AM PHOTOENGRAVER procedure are i n the results section. POC CRITICAL Routine 03/26/2022 9:12 Results for this AM PHOTOENGRAVER procedure are i n the results section. CT CHEST PULMONARY STAT 03/26/2022 8:42 Result s for this EMBOLISM W CONTRAST AM PHOTOENGRAVER procedur e are in the results section. ARTERIAL BLOOD GAS Routine 03/26/2022 8:06 Result s for this AM PHOTOENGRAVER procedure are i n the results section. ARTERIAL BLOOD GAS STAT 03/26/2022 5:33 Result s for this AM PHOTOENGRAVER procedure are i n the results section. VENOUS BLOOD GAS STAT 03/26/2022 5:28 Results for this AM PHOTOENGRAVER procedure are i n the results section. C-PEPTIDE AM 03/26/2022 12:25 Results for this AM PHOTOENGRAVER procedure are i n the results section. CARDIAC PANEL AM 03/26/2022 12:25 Results fo r this AM PHOTOENGRAVER procedure are i n the results section. NT PRO BNP AM 03/26/2022 12:25 Results for this AM PHOTOENGRAVER procedure are i n the results section. MANUAL DIFFERENTIAL AM 03/26/2022 12:25 Resu lts for this AM PHOTOENGRAVER procedure are i n the results section. Results CBC AM 03/26/2022 12:25 Results for this AM PHOTOENGRAVER procedure are i n the results section. CALCIUM LEVEL TOTAL AM 03/26/2022 12:25 Resu lts for this AM PHOTOENGRAVER procedure are i n the results section. .GLOMERULAR FILTRATION AM 03/26/2022 12:25 R esults for this RATE AM PHOTOENGRAVER procedure are i n the results section. SERUM CREATININE AM 03/26/2022 12:25 Results for this AM PHOTOENGRAVER procedure are i n the results section. ELECTROLYTE PANEL AM 03/26/2022 12:25 Result s for this AM PHOTOENGRAVER procedure are i n the results section. BLOOD UREA NITROGEN AM 03/26/2022 12:25 Resu lts for this AM PHOTOENGRAVER procedure are i n the results section. GLUCOSE LEVEL AM 03/26/2022 12:25 Results fo r this AM PHOTOENGRAVER procedure are i n the results section. LACTIC ACID, VENOUS STAT 03/26/2022 12:25 Resu lts for this AM PHOTOENGRAVER procedure are i n the results section. PHOSPHORUS LEVEL AM 03/26/2022 12:25 Results for this AM PHOTOENGRAVER procedure are i n the results section. MAGNESIUM LEVEL AM 03/26/2022 12:25 Results for this AM PHOTOENGRAVER procedure are i n the results section. COMPLETE BLOOD COUNT W/ AM 03/26/2022 12:25 DIFFERENTIAL AM PHOTOENGRAVER BASIC METABOLIC PANEL, AM 03/26/2022 12:25 CALCIUM TOTAL AM PHOTOENGRAVER BLOODCULTURE Routine 03/26/2022 12:25 Results for this AM PHOTOENGRAVER procedure are i n the results section. XR CHEST 1 VW PORTABLE STAT 03/26/2022 12:01 R esults for this AM PHOTOENGRAVER procedure are i n the results section. EKG, 12-LEAD (PORTABLE) STAT 03/26/2022 EKG, 12-LEAD (PORTABLE) STAT 03/26/2022 EKG, 12-LEAD (PORTABLE) STAT 03/26/2022 POC GLUCOSE SCREEN Routine 03/25/2022 10:09 Resul ts for this PM PHOTOENGRAVER procedure are i n the results section. POC GLUCOSE SCREEN Routine 03/25/2022 7:07 Result s for this PM PHOTOENGRAVER procedure are i n the results section. POC GLUCOSE SCREEN Routine 03/25/2022 3:46 Result s for this PM PHOTOENGRAVER procedure are i n the results section. POC GLUCOSE SCREEN Routine 03/25/2022 2:05 Result s for this PM PHOTOENGRAVER procedure are i n the results section. US RENAL STAT 03/25/2022 10:19 Results for this AM PHOTOENGRAVER procedure are i n the results section. POC GLUCOSE SCREEN Routine 03/25/2022 9:08 Result s for this AM PHOTOENGRAVER procedure are i n the results section. GENERAL LABORATORY ADD STAT 03/25/2022 7:20 Re sults for this ON TEST AM PHOTOENGRAVER procedure are i n the results section. PHOSPHORUS LEVEL Routine 03/25/2022 4:45 Results for this AM PHOTOENGRAVER procedure are i n the results section. MAGNESIUM LEVEL Routine 03/25/2022 4:45 Results f or this AM PHOTOENGRAVER procedure are i n the results section. CALCIUM LEVEL TOTAL Routine 03/25/2022 4:45 Resul ts for this AM PHOTOENGRAVER procedure are i n the results section. .GLOMERULAR FILTRATION Routine 03/25/2022 4:45 Re sults for this RATE AM PHOTOENGRAVER procedure are i n the results section. SERUM CREATININE Routine 03/25/2022 4:45 Results for this AM PHOTOENGRAVER procedure are i n the results section. ELECTROLYTE PANEL Routine 03/25/2022 4:45 Results for this AM PHOTOENGRAVER procedure are i n the results section. BLOOD UREA NITROGEN Routine 03/25/2022 4:45 Resul ts for this AM PHOTOENGRAVER procedure are i n the results section. GLUCOSE LEVEL Routine 03/25/2022 4:45 Results for this AM PHOTOENGRAVER procedure are i n the results section. BASIC METABOLIC PANEL, Routine 03/25/2022 4:45 CALCIUM TOTAL AM PHOTOENGRAVER POC GLUCOSE SCREEN Routine 03/25/2022 4:35 Result s for this AM PHOTOENGRAVER procedure are i n the results section. POC ICON 20 URINE Routine 03/25/2022 1:24 Results for this TEST AM PHOTOENGRAVER procedure are in the results section. URINALYSIS MICROSCOPIC Routine 03/25/2022 12:36 R esults for this EXAM AM PHOTOENGRAVER procedure are i n the results section. URINALYSIS WITH Routine 03/25/2022 12:36 Results for this MICROSCOPIC IF AM PHOTOENGRAVER procedure are in INDICATED the results section. URINE CULTURE STAT 03/25/2022 12:36 Results fo r this AM PHOTOENGRAVER procedure are i n the results section. EKG, 12-LEAD (PORTABLE) Routine 03/25/2022 XR CHEST 1 VW STAT 03/24/2022 11:57 Results fo r this PM PHOTOENGRAVER procedure are i n the results section. CONFIRM ABORH TYPE STAT 03/24/2022 11:29 Resul ts for this PM PHOTOENGRAVER procedure are i n the results section. POC VENOUS BLOOD GAS + Routine 03/24/2022 11:18 R esults for this LACTATE PM PHOTOENGRAVER procedure are i n the results section. CLOT EXPIRATION DATE STAT 03/24/2022 11:10 Res ults for this PM PHOTOENGRAVER procedure are i n the results section. TMP INTERPRETATION STAT 03/24/2022 11:10 Resul ts for this ANTIBODY SCREEN PM PHOTOENGRAVER procedure ar e in NEGATIVE the results section. ANTIBODY SCREEN STAT 03/24/2022 11:10 Results for this PM PHOTOENGRAVER procedure are i n the results section. ABORH STAT 03/24/2022 11:10 Results for this PM PHOTOENGRAVER procedure are i n the results section. FRACTIONATED BILIRUBIN STAT 03/24/2022 11:10 R esults for this PM PHOTOENGRAVER procedure are i n the results section. TOTAL PROTEIN STAT 03/24/2022 11:10 Results fo r this PM PHOTOENGRAVER procedure are i n the results section. ASPARTATE STAT 03/24/2022 11:10 Results for this AMINOTRANSFERASE PM PHOTOENGRAVER procedure a re in the results section. ALANINE STAT 03/24/2022 11:10 Results for this AMINOTRANSFERASE PM PHOTOENGRAVER procedure a re in the results section. ALKALINE PHOSPHATASE STAT 03/24/2022 11:10 Res ults for this PM PHOTOENGRAVER procedure are i n the results section. ALBUMIN LEVEL STAT 03/24/2022 11:10 Results fo r this PM PHOTOENGRAVER procedure are i n the results section. CALCIUM LEVEL TOTAL STAT 03/24/2022 11:10 Resu lts for this PM PHOTOENGRAVER procedure are i n the results section. .GLOMERULAR FILTRATION STAT 03/24/2022 11:10 R esults for this RATE PM PHOTOENGRAVER procedure are i n the results section. SERUM CREATININE STAT 03/24/2022 11:10 Results for this PM PHOTOENGRAVER procedure are i n the results section. ELECTROLYTE PANEL STAT 03/24/2022 11:10 Result s for this PM PHOTOENGRAVER procedure are i n the results section. BLOOD UREA NITROGEN STAT 03/24/2022 11:10 Resu lts for this PM PHOTOENGRAVER procedure are i n the results section. GLUCOSE LEVEL STAT 03/24/2022 11:10 Results fo r this PM PHOTOENGRAVER procedure are i n the results section. MANUAL DIFFERENTIAL STAT 03/24/2022 11:10 Resu lts for this PM PHOTOENGRAVER procedure are i n the results section. Results CBC STAT 03/24/2022 11:10 Results for this PM PHOTOENGRAVER procedure are i n the results section. C REACTIVE PROTEIN Routine 03/24/2022 11:10 Resul ts for this PM PHOTOENGRAVER procedure are i n the results section. LACTATE DEHYDROGENASE Routine 03/24/2022 11:10 Re sults for this PM PHOTOENGRAVER procedure are i n the results section. FRACTIONATED BILIRUBIN Routine 03/24/2022 11:10 R esults for this PM PHOTOENGRAVER procedure are i n the results section. PROCALCITONIN STAT 03/24/2022 11:10 Results fo r this PM PHOTOENGRAVER procedure are i n the results section. TYPE AND SCREEN STAT 03/24/2022 11:10 PM PHOTOENGRAVER APTT STAT 03/24/2022 11:10 Results for this PM PHOTOENGRAVER procedure are i n the results section. PROTHROMBIN TIME STAT 03/24/2022 11:10 Results for this PM PHOTOENGRAVER procedure are i n the results section. PHOSPHORUS LEVEL STAT 03/24/2022 11:10 Results for this PM PHOTOENGRAVER procedure are i n the results section. MAGNESIUM LEVEL STAT 03/24/2022 11:10 Results for this PM PHOTOENGRAVER procedure are i n the results section. COMPREHENSIVE METABOLIC STAT 03/24/2022 11:10 PANEL PM PHOTOENGRAVER COMPLETE BLOOD COUNT W/ STAT 03/24/2022 11:10 DIFFERENTIAL PM PHOTOENGRAVER RESPIRATORY VIRAL Routine 03/24/2022 11:10 Result s for this MULTIPLEX PCR PANEL, PM PHOTOENGRAVER procedu re are in NASOPHARYNGEAL SWAB the resu lts section. BLOODCULTURE STAT 03/24/2022 11:10 Results for this PM PHOTOENGRAVER procedure are i n the results section. POC GLUCOSE SCREEN Routine 03/24/2022 10:44 Resul ts for this PM PHOTOENGRAVER procedure are i n the results section. OSI CT ABDOMEN AND Routine 03/24/2022 4:15 Cancer Result s for this PELVIS PM PHOTOENGRAVER procedure are i n the results section. MRI THORACIC SPINE W WO Routine 03/14/2022 6:31 Malignant neop lasm Results for this CONTRAST PM PHOTOENGRAVER of thyroid gland procedure a re in the results section. COVID-19 (SARS-COV-2) Routine 03/13/2022 2:16 Suspected COVID- 19 Results for this PCR-ASYMPTOMATIC MC PM PHOTOENGRAVER procedur e are in the results section. US HEAD NECK SOFT Routine 03/13/2022 2:05 Malignant neoplasm R esults for this TISSUE PM PHOTOENGRAVER of thyroid gland procedure a re in the results section. MANUAL DIFFERENTIAL Routine 03/13/2022 12:30 Malignant neoplas m Results for this PM PHOTOENGRAVER of thyroid gland procedure a re in the results section. Results CBC Routine 03/13/2022 12:30 Malignant neoplasm Resul ts for this PM PHOTOENGRAVER of thyroid gland procedure a re in the results section. .GLOMERULAR FILTRATION Routine 03/13/2022 12:30 Malignant neop lasm Results for this RATE PM PHOTOENGRAVER of thyroid gland procedure a re in the results section. SERUM CREATININE Routine 03/13/2022 12:30 Malignant neoplasm R esults for this PM PHOTOENGRAVER of thyroid gland procedure a re in the results section. ELECTROLYTE PANEL Routine 03/13/2022 12:30 Malignant neoplasm Results for this PM PHOTOENGRAVER of thyroid gland procedure a re in the results section. VITAMIN D 25 HYDROXY Routine 03/13/2022 12:30 Malignant neopla sm Results for this LEVEL PM PHOTOENGRAVER of thyroid gland procedure a re in the results section. THYROID STIMULATING Routine 03/13/2022 12:30 Malignant neoplas m Results for this HORMONE PM PHOTOENGRAVER of thyroid gland procedure a re in the results section. THYROGLOBULIN ANTIBODY Routine 03/13/2022 12:30 Malignant neop lasm Results for this PM PHOTOENGRAVER of thyroid gland procedure a re in the results section. PHOSPHORUS LEVEL Routine 03/13/2022 12:30 Malignant neoplasm R esults for this PM PHOTOENGRAVER of thyroid gland procedure a re in the results section. APTT Routine 03/13/2022 12:30 Malignant neoplasm Resul ts for this PM PHOTOENGRAVER of thyroid gland procedure a re in the results section. PROTHROMBIN TIME Routine 03/13/2022 12:30 Malignant neoplasm R esults for this PM PHOTOENGRAVER of thyroid gland procedure a re in the results section. PTH INTACT Routine 03/13/2022 12:30 Malignant neoplasm Resul ts for this PM PHOTOENGRAVER of thyroid gland procedure a re in the results section. MAGNESIUM LEVEL Routine 03/13/2022 12:30 Malignant neoplasm Re sults for this PM PHOTOENGRAVER of thyroid gland procedure a re in the results section. FREE THYROXINE Routine 03/13/2022 12:30 Malignant neoplasm Res ults for this PM PHOTOENGRAVER of thyroid gland procedure a re in the results section. SERUM CREATININE Routine 03/13/2022 12:30 Malignant neoplasm PM PHOTOENGRAVER of thyroid gland COMPLETE BLOOD COUNT W/ Routine 03/13/2022 12:30 Malignant linda plasm DIFFERENTIAL PM PHOTOENGRAVER of thyroid gland CALCIUM LEVEL TOTAL Routine 03/13/2022 12:30 Malignant neoplas m Results for this PM PHOTOENGRAVER of thyroid gland procedure a re in the results section. BLOOD UREA NITROGEN Routine 03/13/2022 12:30 Malignant neoplas m Results for this PM PHOTOENGRAVER of thyroid gland procedure a re in the results section. ALBUMIN LEVEL Routine 03/13/2022 12:30 Malignant neoplasm Resu lts for this PM PHOTOENGRAVER of thyroid gland procedure a re in the results section. HEPATITIS C VIRUS Routine 03/13/2022 12:30 Malignant neoplasm Results for this ANTIBODY PM PHOTOENGRAVER of thyroid gland procedure a re in the results section. OSI US THYROID Routine 01/30/2022 1:11 Cancer Results fo r this PM PHOTOENGRAVER procedure are i n the results section. after 09/02/2021 Results Echocardiogram 2D Complete (07/26/2022 11:17 AM CDT) P athologist Signature EF 63 [facility] Specimen (Source) Anatomical Collection Method Collection Time Re ceived Time Location / / Volume Laterality 07/26/2022 10:52 AM CDT Narrative [facility]SC[facility] - 07/26/2022 3:04 PM CDT Echocardiographic Report Interpretation Summary A complete two-dimensional transthoracic echocardiogram was performed (2D, M- mode, Spectral and color Doppler). The study was technically adequate. Compared to prior study dated : 03/28/22 The left ventricular function is now normal . Normal left ventricular size and systoli c function. LV ejection fraction calculated using th e bi-plane method of disks is 63 %. The right ventricle is normal in size an d function. Unable to estimate RVSP due to lack of T R visualization. There is no pericardial effusion. Left Ventricle: Normal left ventricular size and systoli c function. There is normal left ventricular wall thickness. LV ejection fraction calculated using the bi-plane method of disks is 63 %. No regional wall motion abnormalities noted. I WMSI = 1.00 % Normal = 1 00 Abnormal global longitudinal peak systolic value. X - Cannot 1 - Normal 2 - 3 - Akinetic 4 - Dyskinetic Interpret Hyp okinetic 5 - Aneurysmal 3D imaginD volumes were not performed in this [facility]. Cardiac Mechanics/Speckle Tracking Imagi ng: Abnormal global longitudinal peak systol ic value. Strain Imaging was performed; GLPS avg = -15.2%. Speckle tracking imaging was technically limited. Diastology: Normal diastolic function. Right Ventricle: The right ventricle is normal in size an d function. Normal RV systolic function using TAPSE criteria. Atria: The left atrial size is normal. Right at rial size is normal. Mitral Valve: The mitral valve is grossly normal. Ther e is no mitral valve stenosis. There is trace mitral regurgitation. Tricuspid Valve: The tricuspid valve is not well visualiz ed, but is grossly normal. There is no tricuspid valve stenosis. There is trace tricuspid regurgitation. Unable to estimate RVSP due to lack of TR visualization. Aortic Valve: The aortic valve is not well visualized. The aortic valve opens well. No aortic regurgitation is present. Pulmonic Valve: The pulmonic valve is not well visualize d. There is no pulmonic valvular stenosis. Trace pulmonic valvular regurgitation. Great Vessels: The aortic root is normal size. The infe rior vena cava demonstrates normal size and normal respiratory variation. Pericardium/Pleural: There is no pericardial effusion. Preliminary Reviewer Preliminary Interpretation: Yamini burns MD. MMode/2D Measurements IVSd: 0.73 cm LVIDd: 3.8 cm LVIDs: 2.4 cm LVPWd: 0.77 cm FS: 36.3 % Ao root diam: 2.4 cm Ao root area: 4.6 cm2 LA dimension: 2.4 cm LVOT diam: 2.0 cm EDV(MOD-A4C): 58.8 ml ESV(MOD-A4C): 23.0 ml LVOT area: 3.0 cm2 EF(MOD-A4C): 60.9 % EDV(MOD-A2C): 65.3 ml ESV(MOD-A2C): 23.1 ml EDV(MOD-bp): 62.3 ml EF(MOD-A2C): 64.7 % ESV(MOD-bp): 23.2 ml EF(MOD-bp): 62.8 % LAV(MOD-A2C): 19.7 ml EDV (MOD-bp) Index: 45.1 ml/m2 LAV(MOD-A4C): 22.0 ml LAV(MOD-bp): 21.4 ml LAV(MOD-bp) Indexed: 15.5 ml/m2 ESV (MOD-bp) Index: 16.8 ml/m2 RWT: 0.41 cm TAPSE (>1.6): 1.6 cm Doppler Measurements MV E max jose alfredo: 76.0 cm/sec MV V2 max: 86.7 cm/sec MV A max jose alfredo: 72.8 cm/sec MV max P.0 mmHg MV E/A: 1.0 MV V2 mean: 67.5 cm/sec MV mean P.9 mmHg MV V2 VTI: 16.4 cm MVA(VTI): 3.0 cm2 MV dec time: 0.11 sec Ao V2 max: 109.1 cm/sec Ao max P.8 mmHg Ao V2 mean: 76.8 cm/sec Ao mean P.7 mmHg Ao V2 VTI: 17.2 cm NADEEM(I,D): 2.8 cm2 NADEEM(V,D): 2.9 cm2 LV V1 max P.4 mmHg SV(LVOT): 48.8 ml LV V1 mean P.0 mmHg LV V1 max: 104.5 cm/sec LV V1 mean: 66.7 cm/sec LV V1 VTI: 16.1 cm Med Peak E' Jose Alfredo: 8.2 cm/sec Lat Peak E' Jose Alfredo: 14.8 cm/sec RAP systole: 3.0 mmHg NADEEM Index (I,D): 2.1 NADEEM Index (V,D): 2.1 Dimensionless Index: 0.96 E/e' (avg): 6.6 E/e' (lat): 5.1 E/e' (sept): 9.3 Procedure Note Mariama Mendoza MD - 07/27/19 23 Echocardiographic Report Interpretation Summary A complete two-dimensional transthoracic echocardiogram was performed (2D, M- mode, Spectral and color Doppler). The study was technically adequate. Compared to prior study dated : 03/28/22 The left ventricular function is now normal . Normal left ventricular size and systoli c function. LV ejection fraction calculated using th e bi-plane method of disks is 63 %. The right ventricle is normal in size an d function. Unable to estimate RVSP due to lack of T R visualization. There is no pericardial effusion. Left Ventricle: Normal left ventricular size and systoli c function. There is normal left ventricular wall thickness. LV ejection fraction calculated using the bi-plane method of disks is 63 %. No regional wall motion abnormalities noted. I WMSI = 1.00 % Normal = 100 Abnormal global longitudinal peak systolic value. X - Cannot 1 - Normal 2 - 3 - Akinetic 4 - Dyskinetic Interpret Hypokinetic 5 - Aneurysmal 3D imaginD volumes were not performed in this [facility]. Cardiac Mechanics/Speckle Tracking Imagi ng: Abnormal global longitudinal peak systol ic value. Strain Imaging was performed; GLPS avg = -15.2%. Speckle tracking imaging was technically limited. Diastology: Normal diastolic function. Right Ventricle: The right ventricle is normal in size an d function. Normal RV systolic function using TAPSE criteria. Atria: The left atrial size is normal. Right at rial size is normal. Mitral Valve: The mitral valve is grossly normal. Ther e is no mitral valve stenosis. There is trace mitral regurgitation. Tricuspid Valve: The tricuspid valve is not well visualiz ed, but is grossly normal. There is no tricuspid valve stenosis. There is trace tricuspid regurgitation. Unable to estimate RVSP due to lack of TR visualization. Aortic Valve: The aortic valve is not well visualized. The aortic valve opens well. No aortic regurgitation is present. Pulmonic Valve: The pulmonic valve is not well visualize d. There is no pulmonic valvular stenosis. Trace pulmonic valvular regurgitation. Great Vessels: The aortic root is normal size. The infe rior vena cava demonstrates normal size and normal respiratory variation. Pericardium/Pleural: There is no pericardial effusion. Preliminary Reviewer Preliminary Interpretation: Yamini burns MD. MMode/2D Measurements IVSd: 0.73 cm LVIDd: 3.8 cm LVIDs: 2.4 cm LVPWd: 0.77 cm FS: 36.3 % Ao root diam: 2.4 cm Ao root area: 4.6 cm2 LA dimension: 2.4 cm LVOT diam: 2.0 cm EDV(MOD-A4C): 58.8 ml ESV(MOD-A4C): 23.0 ml LVOT area: 3.0 cm2 EF(MOD-A4C): 60. 9 % EDV(MOD-A2C): 65.3 ml ESV(MOD-A2C): 23.1 ml EDV(MOD-bp): 62.3 ml EF(MOD-A2C): 64.7 % ESV(MOD-bp): 23. 2 ml EF(MOD-bp): 62.8 % LAV(MOD-A2C): 19.7 ml EDV (MOD-bp) I ndex: 45.1 ml/m2 LAV(MOD-A4C): 22.0 ml LAV(MOD-bp): 21.4 ml LAV(MOD-bp) Indexed: 15.5 ml/m2 ESV (MOD-bp) Index: 16.8 ml/m2 RWT: 0.41 cm TAPSE (>1.6): 1.6 cm Doppler Measurements MV E max jose alfredo: 76.0 cm/sec MV V2 max: 86.7 cm/sec MV A max jose alfredo: 72.8 cm/sec MV max PG : 3.0 mmHg MV E/A: 1.0 MV V2 mean: 67.5 cm/sec MV mean P.9 mmHg MV V2 VTI: 16.4 cm MVA(VTI): 3.0 cm2 MV dec time: 0.11 sec Ao V2 max: 109 .1 cm/sec Ao max P.8 mmHg Ao V2 mean: 76.8 cm/sec Ao mean P.7 mmHg Ao V2 VTI: 17.2 cm NADEEM(I,D): 2.8 cm2 NADEEM(V,D): 2.9 cm2 LV V1 max P.4 mmHg SV(LVOT): 48. 8 ml LV V1 mean P.0 mmHg LV V1 max: 104.5 cm/sec LV V1 mean: 66.7 cm/sec LV V1 VTI: 16.1 cm Med Peak E' Jose Alfredo: 8.2 cm/sec Lat Peak E' Jose Alfredo: 14.8 cm/sec RAP systole: 3.0 mmHg NADEEM Index (I,D) : 2.1 NADEEM Index (V,D): 2.1 Dimensionless Index: 0.96 E/e' (avg): 6.6 E/e' (lat): 5.1 E/e' (sept): 9.3 Megan Kapadia MD CV ECHO ORDERABLES Performing Organization Address City/[facility]/ZIP Code Phon e Number ISCV (ABNORMAL) .Serum Creatinine (07/26/2022 10:26 AM CDT)Only the most recent of20 resultswithin the time period is included. athologist Signature Creatinine 0.35 (L) 0.51 - [facility] 0.95 mg/dL DIAGNOSTIC CENTER Specimen Anatomical Collection Method Collection Time Receive d Time (Source) Location / / Volume Laterality Blood 07/26/2022 10:26 07/26/2022 AM CDT 10:35 AM CDT Megan Kapadia MD LAB BLOOD ORDERABLES Performing Organization Address City/State/ZIP Code Phon e Number [facility] DIAGNOSTIC Unless otherwise noted, [place], [place] [address] CENTER all lab tests performed by: Division of Pathology and Laboratory Medicine [facility]5 Kaylin Hopkins (ABNORMAL) .CBC (07/26/2022 10:26 AM CDT)Only the most recent of11 resultswithin the time period is included. Analysis Performed At Patho logist Time Signature WBC 5.9 4.0 - 11.0 [facility] K/uL DIAGNOSTIC CENTER RBC 4.94 4.00 - [facility] 5.50 M/uL DIAGNOSTIC CENTER Hgb 12.8 12.0 - [facility] 16.0 gm/dL DIAGNOSTIC CENTER Hct 39.1 37.0 - [facility] 47.0 % DIAGNOSTIC CENTER MCV 79 (L) 82 - 98 fL [facility] MCH 25.9 (L) 27.0 - [facility] 31.0 pg DIAGNOSTIC CENTER MCHC 32.7 31.0 - [facility] 36.0 gm/dL DIAGNOSTIC CENTER RDW-SD 38.0 35.1 - [facility] 46.3 fL DIAGNOSTIC CENTER RDW-CV 13.3 12.0 - [facility] 15.5 % DIAGNOSTIC CENTER Platelet count 361 140 - 440 [facility] K/uL DIAGNOSTIC CENTER MPV 9.6 4.0 - 10.4 [facility] fL DIAGNOSTIC CENTER INRBC 0.0 <=0.0 % [facility] Comment: The INRBC (instrument NRBC) value reflec ts the enumeration of nucleated red blood cells contained i n a 200uL sample of whole blood analyzed by the instrumen t. This value may differ from the NRBC value reported in a manual differential, which is based on a 100 cell differentia l. Specimen Anatomical Collection Method Collection Time Receive d Time (Source) Location / / Volume Laterality Blood 07/26/2022 10:26 07/26/2022 AM CDT 10:33 AM CDT Megan Kapadia MD LAB BLOOD ORDERABLES Performing Organization Address City/State/ZIP Code Phon e Number [facility] DIAGNOSTIC Unless otherwise noted, [place] [address] CENTER all lab tests performed by: Division of Pathology and Laboratory Medicine [address] Glomerular Filtration Rate (07/26/2022 10:26 AM CDT)Only the most recent of20 resultswithin the time period is included. P athologist Signature eGFR 145 >=60 [facility] mL/min/1.73 DIAGNOSTIC sq. m CENTER Comment: The eGFRcr is calculated with the 2020 KD-EPI creatinine equation using creatinine, patient's age, and sex for adults 18 years of age and older. Other factors, especially muscle mass, may affect accuracy and need to be considered. According to the Kidney Disease: Improvi ng Global Outcomes (KDIGO) CKD Work Group 2012 Clinical Practice Guideline, chronic kidney disease (CKD) is defined as the abnormalities of kidney structure or function, present for more than 3 months, with implications for health. CKD should be c lassified by cause, GFR category, and albuminuria category. KDIGO guidelines provide the following GFR categories Stage Description GFR mL/min/1.73 m2 G1* Normal or high >= 90 G2* Mildly decreased 60-89 G3a Mildly to moderately decreased 45-59 G3b Moderately to severely decreased 30- 44 G4 Severely decreased 15-29 G5 Kidney failure <15 *In the absence of evidence of kidney da mage, neither G1 nor G2 fulfill criteria for CKD. Specimen Anatomical Collection Method Collection Time Receive d Time (Source) Location / / Volume Laterality Blood 07/26/2022 10:26 07/26/2022 AM CDT 10:35 AM CDT Megan Kapadia MD LAB BLOOD ORDERABLES Performing Organization Address City/[facility] Code Phon e Number [facility] DIAGNOSTIC Unless otherwise noted, [address] all lab tests performed by: Division of Pathology and Laboratory Medicine [address] Fractionated Bilirubin (07/26/2022 10:26 AM CDT)Only the most recent of10 resultswithin the time period is included. athologist Signature Bili Total 0.3 <=1.2 mg/dL [facility] Comment: Indocyanine Green (ICG) may cause falsel y elevated bilirubin results. Total and direct bilirubin must not be measured from samples containing indocyanine green. False elevation of total bilirubin can b e seen in patients with IgG concentrations above 28 g/L. Bili Direct <0.2 <=0.3 mg/dL [facility] Comment: Indocyanine Green (ICG) may cau se falsely elevated bilirubin results. Total and direct bilirubin must not be measure d from samples containing indocyanine green. Bili Indirect See Note 0.0 - 0.9 mg/dL [facility] Comment: Unable to calculate Indirect Bi lirubin result due to some parameters are outside reportable range Specimen Anatomical Collection Method Collection Time Receive d Time (Source) Location / / Volume Laterality Blood 07/26/2022 10:26 07/26/2022 AM CDT 10:35 AM CDT Megan Kapadia MD LAB BLOOD ORDERABLES Performing Organization Address City/[facility]/ZIP Code Phon e Number [facility] DIAGNOSTIC Unless otherwise noted, [place] [phone] [place] all lab tests performed by: Division of Pathology and Laboratory Medicine [address] Cardiac Panel (07/26/2022 10:26 AM CDT)Only the most recent of5 resultswithin the time period is included. athologist Signature CK 55 26 - 192 [facility] U/L [facility] CK MB <2.0 <=5.3 ng/mL [facility] Troponin T <6 <=19 ng/L [facility] Comment: < 19 ng/L Suggest retest at 3 to 6 hours later to rule out myocardial infarction >= 19 to <=52 ng/L Pos sible myocardial injury. Suggest retest at 3 hours. - a change of < 20 ng/L, retest at 6 hours - a change of >= 20 ng/L, suggestive of myocardial infarction > 52 ng/L Suggestive of myocardial infarction Critical value will be reported when cTn T is > 52 ng/L and only reported for the first in a series. Hemolyzed specimens with Hemolysis Index >100 (100 mg/dl or moderate hemolysis) may cause interferences and falsely low results. Specimen Anatomical Collection Method Collection Time Receive d Time (Source) Location / / Volume Laterality Blood 07/26/2022 10:26 07/26/2022 AM CDT 11:04 AM CDT Megan Kapadia MD LAB BLOOD ORDERABLES Performing Organization Address [facility] Phon e Number [facility] CANCER Unless otherwise noted, [address] all lab tests performed by: Division of Pathology and Laboratory Medicine [address] NT-Pro BNP (In-House) (07/26/2022 10:26 AM CDT)Only the most recent of3 results within the time period is included. athologist Signature NT ProBNP <36 <=125 pg/mL [facility] Specimen Anatomical Collection Method Collection Time Receive d Time (Source) Location / / Volume Laterality Blood 07/26/2022 10:26 07/26/2022 AM CDT 12:00 PM CDT Megan Kapadia MD LAB BLOOD ORDERABLES Performing Organization Address City/[facility] Phon e Number [facility] CANCER Unless otherwise noted, [address] all lab tests performed by: Division of Pathology and Laboratory Medicine [address] (ABNORMAL) Differential (07/26/2022 10:26 AM CDT)Only the most recent of11 resultswithin the time period is included. athologist Signature Neutrophil % 45.0 42.0 - [facility] 66.0 % DIAGNOSTIC CENTER Lymphocyte % 43.4 24.0 - [facility] 44.0 % DIAGNOSTIC CENTER Monocyte % 8.5 (H) 2.0 - 7.0 [facility] % DIAGNOSTIC CENTER Eosinophil % 1.7 1.0 - 4.0 [facility] % DIAGNOSTIC CENTER Basophil % 0.7 0.0 - 1.0 [facility] % DIAGNOSTIC CENTER IGRE % 0.7 (H) 0.0 - 0.4 [facility] % DIAG[facility]IC CENTER Comment: IGRE % count includes Metamyelo cytes, Myelocytes, and Promyelocytes. Neutrophil Abs 2.65 1.70 - 7.30 K/uL [facility] DIAGNOSTIC [place] Lymphocyte Abs 2.55 1.00 - 4.80 K/uL [facility] Monocyte Abs 0.50 0.08 - 0.70 K/uL [facility] Eosinophil Abs 0.10 0.04 - 0.40 K/uL [facility] Basophil Abs 0.04 0.00 - 0.10 K/uL [facility] DIAGNOSTIC [place] IG Abs 0.04 0.00 - 0.04 K/uL [facility] Specimen Anatomical Collection Method Collection Time Receive d Time (Source) Location / / Volume Laterality Blood 07/26/2022 10:26 07/26/2022 AM CDT 10:33 AM CDT Megan Kapadia MD LAB BLOOD ORDERABLES Performing Organization Address City/State/ZIP Code Phon e Number [facility] DIAGNOSTIC Unless otherwise noted, [address] all lab tests performed by: Division of Pathology and Laboratory Medicine [address] [place] [address] BUN (07/26/2022 10:26 AM CDT)Only the most recent of20 resultswithin the time period is included. P athologist Signature BUN 12 6 - 23 [facility] mg/dL DIAGNOSTIC CENTER Specimen Anatomical Collection Method Collection Time Receive d Time (Source) Location / / Volume Laterality Blood 07/26/2022 10:26 07/26/2022 AM CDT 10:35 AM CDT Megan Kapadia MD LAB BLOOD ORDERABLES Performing Organization Address City/State/ZIP Code Phon e Number [facility] DIAGNOSTIC Unless otherwise noted, [address] all lab tests performed by: Division of Pathology and Laboratory Medicine [address] [place] [address] (ABNORMAL) ALT (07/26/2022 10:26 AM CDT)Only the most recent of9 resultswithin the time period is included. P athologist Signature ALT 34 (H) <=33 U/L [facility] Specimen Anatomical Collection Method Collection Time Receive d Time (Source) Location / / Volume Laterality Blood 07/26/2022 10:26 07/26/2022 AM CDT 10:35 AM CDT Megan Kapadia MD LAB BLOOD ORDERABLES Performing Organization Address City/[facility]/[place] [facility] [place] Number [facility] DIAGNOSTIC Unless otherwise noted, [address] all lab tests performed by: Division of Pathology and Laboratory Medicine [address] Aspartate Aminotransferase (07/26/2022 10:26 AM CDT)Only the most recent of9 resultswithin the time period is included. P athologist Signature AST 31 <=32 U/L [facility] Specimen Anatomical Collection Method Collection Time Receive d Time (Source) Location / / Volume Laterality Blood 07/26/2022 10:26 07/26/2022 AM CDT 10:35 AM CDT Megan Kapadia MD LAB BLOOD ORDERABLES Performing Organization Address City/[facility] Phon e Number [facility] DIAGNOSTIC Unless otherwise noted, [address] all lab tests performed by: Division of Pathology and Laboratory Medicine [address] Free T4 (07/26/2022 10:26 AM CDT)Only the most recent of2 resultswithin the time period is included. P athologist Signature T4 Free 1.53 0.93 - 1.70 [facility] ng/dL [facility] Specimen Anatomical Collection Method Collection Time Receive d Time (Source) Location / / Volume Laterality Blood 07/26/2022 10:26 07/26/2022 AM CDT 10:35 AM CDT Megan Kapadia MD LAB BLOOD ORDERABLES Performing Organization Address City/[facility]/[place] [facility] [place] Number [facility] DIAG[facility]STIC Unless otherwise noted, [address] all lab tests performed by: Division of Pathology and Laboratory Medicine [address] Total Protein (07/26/2022 10:26 AM CDT)Only the most recent of9 resultswithin the time period is included. athologist [facility] Total Protein 7.4 6.4 - 8.3 [facility] g/dL DIAGNOSTIC CENTER Specimen Anatomical Collection Method Collection Time Receive d Time (Source) Location / / Volume Laterality Blood 07/26/2022 10:26 07/26/2022 AM CDT 10:35 AM CDT Megan Kapadia MD LAB BLOOD ORDERABLES Performing Organization Address City/[facility]/ZIP Code Phon e Number [facility] DIAGNOSTIC Unless otherwise noted, [address] all lab tests performed by: Division of Pathology and Laboratory Medicine [address] (ABNORMAL) Alkaline Phosphatase (07/26/2022 10:26 AM CDT)Only the most recent of 9 resultswithin the time period is included. athologist [facility] Alk Phos 112 (H) 35 - 104 [facility] U/L DIAGNOSTIC [place] Specimen Anatomical Collection Method Collection Time Receive d Time (Source) Location / / Volume Laterality Blood 07/26/2022 10:26 07/26/2022 AM CDT 10:35 AM CDT Megan Kapadia MD LAB BLOOD ORDERABLES Performing Organization Address City/[facility] Phon e Number [facility] DIAGNOSTIC Unless otherwise noted, [address] all lab tests performed by: Division of Pathology and Laboratory Medicine [address] (ABNORMAL) Glucose Level (07/26/2022 10:26 AM CDT)Only the most recent of19 resultswithin the time period is included. athologist [facility] Glucose Level 236 (H) 70 - 99 [facility] mg/dL DIAGNOSTIC CENTER Comment: Effective 09/20/15, the glucose reference intervals have been updated based on [place] [employer] guidelines (Standards of Medical Care in Diabetes 2016. Diabetes Care 2016; 39: S13-S22). Fasting blood glucose: Normal: 70-99 mg/dL Impaired fasting glucose (increased risk for diabetes or pre-diabetes): 100- 125 mg/dL Diabetes mellitus: >/=126 mg/dL Random blood glucose: Normal: 70-199 mg/dL Note: Random glucose >100 mg/dL is assoc iated with increased risk for diabetes Specimen Anatomical Collection Method Collection Time Receive d Time (Source) Location / / Volume Laterality Blood 07/26/2022 10:26 07/26/2022 AM CDT 10:35 AM CDT Megan Kapadia MD LAB BLOOD ORDERABLES Performing Organization Address City/[facility]/[place] [facility] [place] Number [facility] DIAG[facility]STIC Unless otherwise noted, [address] all lab tests performed by: Division of Pathology and Laboratory Medicine [address] (ABNORMAL) Calcium Level (07/26/2022 10:26 AM CDT)Only the most recent of5 resultswithin the time period is included. P athologist Signature Calcium Lvl 10.4 (H) 8.4 - 10.2 [facility] mg/dL [facility] Specimen Anatomical Collection Method Collection Time Receive d Time (Source) Location / / Volume Laterality Blood 07/26/2022 10:26 07/26/2022 AM CDT 10:35 AM CDT Megan Kapadia MD LAB BLOOD ORDERABLES Performing Organization Address [facility] Phon e Number [facility] DIAGNOSTIC Unless otherwise noted, [address] all lab tests performed by: Division of Pathology and Laboratory Medicine [address] Albumin Level (07/26/2022 10:26 AM CDT)Only the most recent of10 resultswithin the time period is included. P athologist Signature Albumin Lvl 4.6 3.5 - 5.2 [facility] gm/dL [facility] Specimen Anatomical Collection Method Collection Time Receive d Time (Source) Location / / Volume Laterality Blood 07/26/2022 10:26 07/26/2022 AM CDT 10:35 AM CDT Mgean Kapadia MD LAB BLOOD ORDERABLES Performing Organization Address City/[facility] Phon e Number [facility] DIAG[facility]ST[facility] Unless otherwise noted, [address] all lab tests performed by: Division of Pathology and Laboratory Medicine [address] (ABNORMAL) Lipid panel (07/26/2022 10:26 AM CDT) P athologist Signature Chol 246 (H) <=199 mg/dL [facility] Comment: ATP III Classification of Total Choleste rol Primary Target of Therapy (in mg/dL): <200 Desirable 200-239 Borderline high >=240 High Trig 201 (H) <=149 mg/dL [facility] Comment: ATP III Classification of Serum Triglyce rides Primary Target of Therapy (in mg/dL): <150 Normal 150-199 Borderline high 200-499 High >=500 Very high Non-fasting triglycerides >200 mg/dL may be followed up with a fasting Lipid Panel. Calculated LDL-C may be falsely decreased when non-fasting triglycerides >200 mg/dL. HDL 52 >=40 mg/dL [facility]STIC [place] LDL 154 (H) <=100 mg/dL [facility] Comment: ATP III Classification of LDL Cholestero l Primary Target of Therapy (in mg/dL): <100 Optimal 100-129 Near optimal/above optimal 130-159 Borderline high 160-189 High >=190 Very high VLDL 40 mg/dL [facility] Specimen Anatomical Collection Method Collection Time Receive d Time (Source) Location / / Volume Laterality Blood 07/26/2022 10:26 07/26/2022 AM CDT 10:38 AM CDT Megan Kapadia MD LAB BLOOD ORDERABLES Performing Organization Address City/State/[facility] Code Phon e Number [facility] DIAG[facility]ST[facility] Unless otherwise noted, [place] [address] [place] all lab tests performed by: Division of Pathology and Laboratory Medicine [address] [facility] Electrolyte Panel (07/26/2022 10:26 AM CDT)Only the most recent of20 results within the time period is included. athologist Signature Sodium Lvl 138 136 - 145 [facility] mEq/L DIAGNOSTIC CENTER Potassium Lvl 4.4 3.5 - 5.1 [facility] mEq/L DIAGNOSTIC CENTER Chloride 102 98 - 107 [facility] mEq/L DIAGNOSTIC CENTER CO2 26 22 - 29 [facility] mEq/L DI[facility]NOSTIC CENTER Anion Gap 10 4 - 14 [facility] mEq/L DIAGNOSTIC CENTER Specimen Anatomical Collection Method Collection Time Receive d Time (Source) Location / / Volume Laterality Blood 07/26/2022 10:26 07/26/2022 AM CDT 10:35 AM CDT Megan Kapadia MD LAB BLOOD ORDERABLES Performing Organization Address City/State/ZIP Code Phon e Number [facility] [facility] Unless otherwise noted, [place] [address] CENTER all lab tests performed by: Division of Pathology and Laboratory Medicine [address] [facility] (Scheduled) (07/15/2022) Specimen (Source) Anatomical Location Collection Method / Collectio n Time Received Time / Laterality Volume Narrative This result has an attachment that is no t available. Megan Kapadia MD ECG ORDERABLES Performing Organization Address City/State/ZIP Code Phon e Number MICHAEL IECG CT Soft Tissue Neck with Contrast (04/12/2022 2:09 PM PHOTOENGRAVER) Anatomical Region Laterality Modality Neck Computed Tomography Specimen (Source) Anatomical Collection Method Collection Time Re ceived Time Location / / Volume Laterality 04/15/2022 8:42 AM PHOTOENGRAVER Impressions 04/15/2022 10:31 AM PHOTOENGRAVER No evidence of local or kourtney recurrence in the cervical region. I personally reviewed these image(s) roverto ng with the resident's/fellow's interpretations, certify that if a procedure was performed I was physically present, and agree with the final report. 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 Findings: Postoperative changes of total thyroidec ray without evidence of local recurrence at the surgical bed. Bilateral parotid and submandibular glands are unremarkable. Slightly prominent bilateral level 2 and 3 lymph nodes are most likely reactive. Bilateral small intraparotid lymph nodes without concerning morphology. Note was also made of several lymph node s in the superior mediastinum, for example posterolateral to the right internal jugular vein (image 115 of series 8), posterior to the right IJV (image 90), and p osterolateral to the trachea (image 79). These lymph nodes have decreased in size when compared with the exam from 2013. No new or progressive lymphadenopathy. The visualized parts of aerodigestive tr act appear unremarkable. The visualized brain and orbits do not reveal any focal lesions. Partially imaged mucosal retention cyst in the sphenoidal sinus. The mas toid air cells are clear. No aggressive osseous lesion is seen. Periodontal disease is noted at the roots of the left 1st and right 1st and 2nd molar teeth. Polypoid change in the left sphenoid sin us is partially visualized. Please refer to concurrent CT chest for complete evaluation of the thorax. Procedure Note Kelsey Sanchez MD - 04/15/2022Fo rmatting of this note might be different from the original. 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 Findings: Postoperative changes of total thyroidec ray without evidence of local recurrence at the surgical bed. Bilateral parotid and submandibular glands are unremarkable. Slightly prominent bilateral level 2 and 3 lymph nodes are most likely reactive. Bilateral small intraparotid lymph nodes without concerning morphology. Note was also made of several lymph node s in the superior mediastinum, for example posterolateral to the right internal jugular vein (image 115 of series 8), posterior to the right IJV (image 90), and posterolateral to the trachea (image 79). These lymph node s have decreased in size when compared with the exam from 2013. No new or progressive lymphadenopathy. The visualized parts of aerodigestive tr act appear unremarkable. The visualized brain and orbits do not reveal any focal lesions. Partially imaged mucosal retention cyst in the sphenoidal sinus. The mastoid air cells are clear. No aggressive osseous l esion is seen. Periodontal disease is noted at the roots of the left 1st and right 1st and 2nd molar teeth. Polypoid change in the left sphenoid sin us is partially visualized. Please refer to concurrent CT chest for complete evaluation of the thorax. IMPRESSION: No evidence of local or kourtney recurrence in the cervical region. I personally reviewed these image(s) roverto ng with the resident's/fellow's interpretations, certify that if a procedure was performed I was physically present, and agree with the final report. Lolita Ann MD IMG CT ORDERABLES CT Chest with Contrast (04/12/2022 2:09 PM PHOTOENGRAVER) Anatomical Region Laterality Modality Chest Computed Tomography Specimen (Source) Anatomical Collection Method Collection Time Re ceived Time Location / / Volume Laterality 04/12/2022 3:09 PM PHOTOENGRAVER Impressions 04/12/2022 3:24 PM PHOTOENGRAVER Resolution of prior features of parenchy mal features and effusions suggestive of pneumonia. Residual pulmonary nodules reflecting treated metastases. Hepatic focal lesions, of indeterminate chronicity, for which evaluation by MRI is advised. Narrative 04/12/2022 3:24 PM PHOTOENGRAVER FULL RESULT: Examination: CT CHEST W CONTRAST, 023 2:09 PM Clinical History: Malignant neoplasm of thyroid gland Indication: Cancer pre-treatment assessm ent Comparison: 03/26/2022 Technique: CT of the chest was performed with intravenous contrast. Findings: Normal central airways. Multifocal bilat eral diffuse parenchymal airspace abnormality, interlobular septal thickening and effusions have resolved. There are residual pulmonary nodules charlene suring up to 5 mm, similar to 10/11/2020, however, several were larger at 03/18/2013, consistent with treated metastases. Thyroidectomy. Regression in size of sub centimeter supraclavicular nodes/nodules and intrathoracic lymph nodes; no definitive appreciable lymphadenopathy. Normal cardiac size. There are several hepatic foci of higher attenuation within the likely steatotic hepatic parenchyma. These may reflect areas of focal fatty sparing and/or shunt/vascular perfusion defects, however, amanda ral of which are well-defined, largest i n the left liver lobe 1.8 cm, suggestive of focal lesion, potentially FNH/hemangioma or adenoma. These are not clearly visualized on the prior study although this may be due to differences in contrast p hase. Characterization by hepatic MRI advised. Mild nodularity of the inferior lobe of the left adrenal, similar to 2020, likely benign. No aggressive osseous lesion. Procedure Note Boone Candelaria MD - 04/12/2022Formatti ng of this note might be different from the original. FULL RESULT: Examination: CT CHEST W CONTRAST, 023 2:09 PM Clinical History: Malignant neoplasm of thyroid gland Indication: Cancer pre-treatment assessm ent Comparison: 03/26/2022 Technique: CT of the chest was performed with intravenous contrast. Findings: Normal central airways. Multifocal bilat eral diffuse parenchymal airspace abnormality, interlobular septal thickening and effusions have resolved. There are residual pulmonary nodules charlene suring up to 5 mm, similar to 10/11/2020, however, several were larger at 03/18/2013, consistent with treated metastases. Thyroidectomy. Regression in size of sub centimeter supraclavicular nodes/nodules and intrathoracic lymph nodes; no definitive appreciable lymphadenopathy. Normal cardiac size. There are several hepatic foci of higher attenuation within the likely steatotic hepatic parenchyma. These may reflect areas of focal fatty sparing and/or shunt/vascular perfusion defects, however, several of which are well-defined, largest in the left li beau lobe 1.8 cm, suggestive of focal lesion, potentially FNH/hemangioma or adenoma. These are not clearly visualized on the prior study although this may be due to differences in contrast phase. Characterization by hepa tic MRI advised. Mild nodularity of the inferior lobe of the left adrenal, similar to 2020, likely benign. No aggressive osseous lesion. IMPRESSION: Resolution of prior features of parenchy mal features and effusions suggestive of pneumonia. Residual pulmonary nodules reflecting treated metastases. Hepatic focal lesions, of indeterminate chronicity, for which evaluation by MRI is advised. Lolita Ann MD IMG CT ORDERABLES (ABNORMAL) POC Glucose Screen (04/02/2022 8:17 AM PHOTOENGRAVER)Only the most recent of54 resultswithin the time period is included. P athologist Signature POC Glucose 134 (H) 70 - 99 POC [facility] mg/dL Comment: Capillary blood samples, e.g. obtained b y fingerstick, may have inaccurate results in patients with decreased peripheral blood flow. All POC Glucose screen test results, inc luding critical values, must be interpreted and evaluated in the context of the patients clinical findings. It is recommended to confirm any questionable test results by core lab methodology. Method description: All results are minoo ured using Electrochemistry test methodology. The glucose in the sample mixes with the reagents on the test strip. The reaction produces an electric current. The amount of current produced is proportion al to the glucose concentration in the blood. PO Sample Type Capillary POC [facility]EL[facility] Performing Lab [facility] POC TELCO R Comment: [facility] Clinical Lab, [address] [place] [address], [place] [address]; Lab Direct or: Marylou Olmstead MD; Waived Point of Care Testing - Luz Maria Vázquez MD Specimen Anatomical Collection Method Collection Time Receive d Time (Source) Location / / Volume Laterality Blood 04/02/2022 8:17 AM 3 8:17 PHOTOENGRAVER AM PHOTOENGRAVER Satya Carpenter MD POCT ORDERABLES - DEVICE Performing Organization Address City/[facility] Phon e Number POC TELCOR Unless otherwise noted, [place] [address] lab tests performed by: Division of Pathology and Laboratory Medicine [address] [place] [address] Prothrombin Time with INR (04/02/2022 7:05 AM PHOTOENGRAVER)Only the most recent of10 resultswithin the time period is included. P athologist Signature PT 12.6 11.9 - 14.1 [facility]() [facility] INR 0.94 0.89 - 1.10 [facility] Specimen Anatomical Collection Method Collection Time Receive d Time (Source) Location / / Volume Laterality Blood 04/02/2022 7:05 AM 3 7:07 PHOTOENGRAVER AM PHOTOENGRAVER Idania Shah MD LAB BLOOD ORDERABLES Performing Organization Address City/[facility] Phon e Number [facility] Unless otherwise noted, [place] [address] CENTER all lab tests performed by: Division of Pathology and Laboratory Medicine [address] [place] [address] Phosphorus Level (04/02/2022 7:05 AM PHOTOENGRAVER)Only the most recent of19 resultswithin the time period is included. P athologist Signature Phosphorus 3.1 2.5 - 4.5 [facility] mg/dL [facility] Specimen Anatomical Collection Method Collection Time Receive d Time (Source) Location / / Volume Laterality Blood 04/02/2022 7:05 AM 3 7:12 PHOTOENGRAVER AM PHOTOENGRAVER Idania Shah MD LAB BLOOD ORDERABLES Performing Organization Address City/[facility]/ZIP Code Phon e Number [facility] Unless otherwise noted, [address] all lab tests performed by: Division of Pathology and Laboratory Medicine [address] [place] [address] Magnesium Level (04/02/2022 7:05 AM PHOTOENGRAVER)Only the most recent of19 resultswithin the time period is included. P athologist Signature Magnesium 2.4 1.6 - 2.6 [facility] mg/dL [facility] Specimen Anatomical Collection Method Collection Time Receive d Time (Source) Location / / Volume Laterality Blood 04/02/2022 7:05 AM 3 7:12 PHOTOENGRAVER AM PHOTOENGRAVER Idania Shah MD LAB BLOOD ORDERABLES Performing Organization Address [facility] Phon e Number [facility] Unless otherwise noted, [address] all lab tests performed by: Division of Pathology and Laboratory Medicine [address] [place], [place] [address]d (ABNORMAL) Calcium Ionized, Venous (04/02/2022 7:01 AM PHOTOENGRAVER)Only the most recent of15 resultswithin the time period is included. P athologist Signature V Ion Ca 1.13 (L) 1.15 - 1.29 [facility] mmol/L [facility] Specimen Anatomical Collection Method Collection Time Receive d Time (Source) Location / / Volume Laterality Blood 04/02/2022 7:01 AM 3 7:07 PHOTOENGRAVER AM PHOTOENGRAVER Idania Shah MD LAB BLOOD ORDERABLES Performing Organization Address City/[facility]/ZIP [facility] Ph[place] Number [facility] Unless otherwise noted, [address] all lab tests performed by: Division of Pathology and Laboratory Medicine [address] [place] [address] General Laboratory Add-On Test (04/01/2022 4:14 PM PHOTOENGRAVER)Only the most recent of3 resultswithin the time period is included. Patholo gist Method Time Signature Ordered Test Added [facility] Test Needed Hemoglobin A1c [facility] Specimen Anatomical Collection Method Collection Time Receive d Time (Source) Location / / Volume Laterality Existing 04/01/2022 4:14 PM 3 4:14 PHOTOENGRAVER PM PHOTOENGRAVER Ry Madhav Noe JUAN MANUEL LAB BLOOD ORDERABLES Performing Organization Address City/[facility]/ZIP Code Phon e Number [facility] Unless otherwise noted, [address] all lab tests performed by: Division of Pathology and Laboratory Medicine [address] [place] [address] Clot Expiration Date (04/01/2022 8:09 AM PHOTOENGRAVER)Only the most recent of3 results within the time period is included. [facility] Signature T & S 04/04/2022 [facility] Specimen Anatomical Collection Method Collection Time Receive d Time (Source) Location / / Volume Laterality Blood 04/01/2022 8:09 AM 3 9:10 PHOTOENGRAVER AM PHOTOENGRAVER Idania Shah MD BLOOD BANK TEST ORDERABLES Performing Organization Address [facility] Phon e Number [facility] Unless otherwise noted, [address] all lab tests performed by: Division of Pathology and Laboratory Medicine [address] [place] [address] TMP Interpretation Antibody Screen Negative (04/01/2022 8:09 AM PHOTOENGRAVER)Only the most recent of3 resultswithin the time period is included. [facility] TMP Auto Neg At the [facility] patient plasma shows no evidence of RBC alloantibodi es. Comment: VICKIE LEIGH MD, PhD - [id number] Dictated by: VICKIE LEIGH MD, Ph D - [id number] Dictated Date/Time: 04.01.2022 13:22 PM PHOTOENGRAVER Transcribed Date/Time: 04.01.2022 13:22 PM PHOTOENGRAVER Electronically Signed By: VICKIE LEIGH MD, PhD - [id number] on 04.01.2022 13:22 PM Specimen Anatomical Collection Method Collection Time Receive d Time (Source) Location / / Volume Laterality Blood 04/01/2022 8:09 AM 3 9:10 PHOTOENGRAVER AM PHOTOENGRAVER Idania Shah MD BLOOD BANK TEST ORDERABLES Performing Organization Address City/[facility]/ZIP Code Phon e Number [facility] Unless otherwise noted, [address] all lab tests performed by: Division of Pathology and Laboratory Medicine [address] [place] [address] ABORh (04/01/2022 8:09 AM PHOTOENGRAVER)Only the most recent of3 resultswithin the time period is included. athologist Signature ABORh. A POS [facility] Specimen Anatomical Collection Method Collection Time Receive d Time (Source) Location / / Volume Laterality Blood 04/01/2022 8:09 AM 3 9:10 PHOTOENGRAVER AM PHOTOENGRAVER Idania Shah MD BLOOD BANK TEST ORDERABLES Performing Organization Address City/[facility] Phon e Number [facility] Unless otherwise noted, [address] all lab tests performed by: Division of Pathology and Laboratory Medicine [address] [place] [address] Antibody Screen (04/01/2022 8:09 AM PHOTOENGRAVER)Only the most recent of3 resultswithin the time period is included. athologist [facility] ABSC. Negative ABSC [facility] Specimen Anatomical Collection Method Collection Time Receive d Time (Source) Location / / Volume Laterality Blood 04/01/2022 8:09 AM 3 9:10 PHOTOENGRAVER AM PHOTOENGRAVER Idania Shah MD BLOOD BANK TEST ORDERABLES Performing Organization Address City/[facility] Phon e Number [facility] Unless otherwise noted, [address] all lab tests performed by: Division of Pathology and Laboratory Medicine [address] [place] [address] (ABNORMAL) Hemoglobin A1c (04/01/2022 8:09 AM PHOTOENGRAVER) athologist [facility] A1C 8.4 (H) 4.3 - 5.6 % [facility] Comment: HbA1c values >=6.5% are diagnostic of di abetes mellitus. Diagnosis should be confirmed by repeat testing. Therapeutic Action suggested: >8.0% HbA1 c; Goal of therapy: <7.0% HbA1c Specimen Anatomical Collection Method Collection Time Receive d Time (Source) Location / / Volume Laterality Blood 04/01/2022 8:09 AM 3 6:57 PHOTOENGRAVER PM PHOTOENGRAVER Idania Shah MD LAB BLOOD ORDERABLES Performing Organization Address City/State/ZIP Code Phon e Number [facility] Unless otherwise noted, [place] [address] CENTER all lab tests performed by: Division of Pathology and Laboratory Medicine [address] [facility] PROCEDURE FOR CODING (03/30/2022 1:37 PM PHOTOENGRAVER) Michael Burden RN - 3 1:37 PM PHOTOENGRAVER Michael Dillon RN 03/30/2022 1:39 PM PICC/Non-Tunneled CVAD Removal Date/Time: 03/30/2022 1:37 PM Performed by: Christelle Thompson Authorized by: Idania Shah MD Pre Procedure: Proceduralist Type: RN Proceduralist: Michael simeon RN Procedure Location: Inpatient Bedsi de Reason for Removal: Treatment Compl ete Patient examined pre-procedure and as sessment (including allergies, labs, imaging, history and physical exam ) performed. Informed consent obtained prior, the risks, benefits, and alternative discussed with patient/designated service support representative. Pre-p rocedure the patient was alert. Time out: universal protocol time out pe rformed and documented. Procedure: A triple lumen right femoral Non-Tunn eled CVC was removed intact successfully. Patient was placed in flat/supine pos ition. Patient held breath while catheter removed slowly. Patient intubat ed, catheter removed slowly at end of inspiration. Upon final inspection ca theter was Intact. Direct pressure applied to site for a duration of 10 min until hemostasis achieved. An occlusive dressi ng was applied, with dressing care and instructions provided to the patient . Estimated blood loss is moderate. Post Procedure: Post Removal Patient Status: Proced ure tolerated well with no immediate complications Complications: Bleeding Clotting agent applied. Site monitore d for additional bleeding Mode of [facility]: [facility] Idania Shah MD IV THERAPY ORDERABLES POC Critical (03/30/2022 1:30 PM PHOTOENGRAVER)Only the most recent of4 resultswithin the time period is included. P athologist Signature POC Critical See Note POC [facility] Comment Comment: Test performer notified Orderin g Licensed Provider and /or designee of POC Glucose Screen critical Results.. Specimen Anatomical Collection Method Collection Time Receive d Time (Source) Location / / Volume Laterality Blood 03/30/2022 1:30 PM 1:30 PHOTOENGRAVER PM PHOTOENGRAVER Idania Shah MD POINT OF CARE TEST ORDERABL ES Performing Organization Address City/[facility]/ZIP Code Phon e Number POC [facility] Unless otherwise noted, [place] [address] lab tests performed by: Division of Pathology and Laboratory Medicine [address] [place] [address] aPTT (03/30/2022 7:36 AM PHOTOENGRAVER)Only the most recent of7 resultswithin the time period is included. athologist Signature aPTT 27.7 22.8 - 34.2 [facility](s) [facility] Specimen Anatomical Collection Method Collection Time Receive d Time (Source) Location / / Volume Laterality Blood 03/30/2022 7:36 AM 7:44 PHOTOENGRAVER AM PHOTOENGRAVER Idania Shah MD LAB BLOOD ORDERABLES Performing Organization Address City/[facility] Phon e Number [facility] Unless otherwise noted, [address] all lab tests performed by: Division of Pathology and Laboratory Medicine [address] [place] [address] Lactic Acid, Venous (03/29/2022 10:16 AM PHOTOENGRAVER)Only the most recent of10 results within the time period is included. athologist Signature V Lactate 0.9 0.5 - 1.6 [facility] mmol/L [facility] Specimen Anatomical Collection Method Collection Time Receive d Time (Source) Location / / Volume Laterality Blood 03/29/2022 10:16 03/29/2022 AM PHOTOENGRAVER 10:22 AM PHOTOENGRAVER Idania Shah MD LAB BLOOD ORDERABLES Performing Organization Address City/[facility] Phon e Number [facility] Unless otherwise noted, [address] all lab tests performed by: Division of Pathology and Laboratory Medicine [address] [place], [place] [address]d (ABNORMAL) ABG (03/29/2022 10:16 AM PHOTOENGRAVER)Only the most recent of14 resultswithin the time period is included. P athologist Signature pH Art 7.49 (H) 7.35 - 7.45 [facility] Comment: Results are corrected for a bod y temp of 37C. pCO2 Art 37.7 32.0 - 45.0 mmHg [place] CARINE Storey [facility] pO2 Art 96 83 - 108 mmHg [facility] [facility] [facility] HCO3 Art 28 21 - 28 mmol/L [facility] Base Excess Art 5 (H) -2 - 3 mmol/L [place] [facility] LOPES RSCHANTELLE [facility] O2 Sat Art 97 95 - 99 % [facility] Specimen Anatomical Collection Method Collection Time Receive d Time (Source) Location / / Volume Laterality Blood 03/29/2022 10:16 03/29/2022 AM PHOTOENGRAVER 10:22 AM PHOTOENGRAVER Idania Shah MD LAB BLOOD ORDERABLES Performing Organization Address City/State/ZIP Code Phon e Number [facility] Unless otherwise noted, [place] [address] [place] all lab tests performed by: Division of Pathology and Laboratory Medicine [address] [place] [address] X-ray Chest 1 View Portable (03/29/2022 1:42 AM PHOTOENGRAVER)Only the most recent of4 resultswithin the time period is included. Anatomical Region Laterality Modality Chest Digital Radiography Specimen (Source) Anatomical Collection Method Collection Time Re ceived Time Location / / Volume Laterality 03/29/2022 8:09 AM PHOTOENGRAVER Impressions 03/29/2022 8:10 AM PHOTOENGRAVER Persistent diffuse opacities, most likely pneumonia. Narrative 03/29/2022 8:10 AM PHOTOENGRAVER FULL RESULT: Examination: XR CHEST 1 VW PORTABLE, 03/29 1:42 AM Clinical History: Pyelonephritis. Papill mike thyroid cancer. Indication: Infiltrate Comparison: 03/28/2022 Technique: Single portable anteroposteri or radiograph of the chest. Findings: Endotracheal tube and NG tube have been removed in the interim. Small pleural effusions. Persistent diffuse opacities, likely pneumonia. Procedure Note Brian Alegre MD - 03/29/2022Formattin g of this note might be different from the original. FULL RESULT: Examination: XR CHEST 1 VW PORTABLE, 03/29 1:42 AM Clinical History: Pyelonephritis. Papill mike thyroid cancer. Indication: Infiltrate Comparison: 03/28/2022 Technique: Single portable anteroposteri or radiograph of the chest. Findings: Endotracheal tube and NG tube have been removed in the interim. Small pleural effusions. Persistent diffuse opacities, likely pneumonia. IMPRESSION: Persistent diffuse opacities, most likel y pneumonia. Idania Shah MD IMG DIAGNOSTIC IMAGING ORDE RABLES Vancomycin Trough Draw before dose due at 1230 today. (03/28/2022 11:50 AM PHOTOENGRAVER) Only the most recent of3 resultswithin the time period is included. athologist Signature Vanco Trough 9.7 5.0 - 20.0 [place] [facility] [place] mcg/mL [facility] Comment: Toxic Trough Level: >20 mcg/mL Vanco Tr Dose Time See note [place] MD BLADIMIR FAIRBANKS [facility] Comment: Level, date, and time of previous dose i s not available for this sample. The date reported is e sample collection date. Vanco Tr Dose Date 03/28/2022 [place] MD MOSES MARK [facility] Comment: Level, date, and time of previous dose i s not available for this sample. The date reported is e sample collection date. Specimen Anatomical Collection Method Collection Time Receive d Time (Source) Location / / Volume Laterality Blood 03/28/2022 11:50 03/28/2022 AM PHOTOENGRAVER 12:09 PM PHOTOENGRAVER Narrative [facility] - 12:46 PM PHOTOENGRAVER Draw before dose due at 1230 today. Nathaniel Montes MD LAB BLOOD ORDERABLES Performing Organization Address City/State/ZIP Code Phon e Number [facility] Unless otherwise noted, [place] [address] [place] all lab tests performed by: Division of Pathology and Laboratory Medicine [facility] Echocardiogram 2D Limited - Follow Up (03/28/2022 8:20 AM PHOTOENGRAVER) athologist Signature EF 39 ISCV Specimen (Source) Anatomical Collection Method Collection Time Re ceived Time Location / / Volume Laterality 03/28/2022 7:29 AM PHOTOENGRAVER Narrative ISCV - 03/28/2022 9:54 AM PHOTOENGRAVER Echocardiographic Report Interpretation Summary Left ventricular systolic function is mo derately reduced. LV ejection fraction calculated using th e bi-plane method of disks is 39 % B hump on Mitral valve M mode suggestive of increased filling pressures Right ventricle is grossly normal in siz e and systolic function. There is no pericardial effusion. Compared to prior study, LV systolic fun ction has improved. Left Ventricle: The left ventricle is normal in size. Th ere is no thrombus. Left ventricular systolic function is moderately reduced. LV ejection fraction calculated using the bi-plane method of disks is 39 %. There is moderate global hypokinesis of the left ventricle. Cardiac Mechanics/Speckle Tracking Imagi ng: Speckle trackng imaging for longitudinal deformation measure was performed; the GLS is -12.7%. Abnormal global longitudinal peak systolic value. Diastology: Tissue Doppler was not obtained. B hump on Mitral valve M mode suggestive of increased filling pressures. Right Ventricle: Grossly normal size and systolic functio n. Atria: Atria are normal in size. Injection of a gitated saline shows evidence of shunting at the intra-atrial level. Mitral Valve: The mitral valve is grossly normal. Ther e is no mitral regurgitation noted. Tricuspid Valve: The tricuspid valve is not well visualiz ed, but is grossly normal. There is trace tricuspid regurgitation. Unable to estimate RVSP due to lack of TR visualization. Aortic Valve: The aortic valve is trileaflet. The aort ic valve opens well. No aortic regurgitation is present. Pulmonic Valve: The pulmonic valve is not well visualize d. There is no pulmonic valvular regurgitation. Great Vessels: The aortic root is normal size. The infe rior vena cava was not well visualized. Pericardium/Pleural: There is no pericardial effusion. MMode/2D Measurements IVSd: 0.65 cm LVIDd: 4.8 cm LVIDs: 3.7 cm LVPWd: 0.58 cm FS: 23.1 % EDV(MOD-A4C): 87.6 ml ESV(MOD-A4C): 53.7 ml EF(MOD-A4C): 38.7 % EDV(MOD-A2C): 98.6 ml ESV(MOD-A2C): 62.1 ml EDV(MOD-bp): 95.2 ml EF(MOD-A2C): 37.0 % ESV(MOD-bp): 58.5 ml EF(MOD-bp): 38.6 % LAV(MOD-A2C): 22.3 ml EDV (MOD-bp) Index: 67.1 ml/m2 LAV(MOD-A4C): 24.5 ml LAV(MOD-bp): 23.4 ml LAV(MOD-bp) Indexed: 16.5 ml/m2 RWT: 0.24 cm ESV (MOD-bp) Index: 41.2 ml/m2 Doppler Measurements TR max jose alfredo: 233.3 cm/sec TR max P.8 mmHg Procedure Note Jeni Cardozo MD - 03/28/2022 Echocardiographic Report Interpretation Summary Left ventricular systolic function is mo derately reduced. LV ejection fraction calculated using th e bi-plane method of disks is 39 % B hump on Mitral valve M mode suggestive of increased filling pressures Right ventricle is grossly normal in siz e and systolic function. There is no pericardial effusion. Compared to prior study, LV systolic fun ction has improved. Left Ventricle: The left ventricle is normal in size. Th ere is no thrombus. Left ventricular systolic function is moderately reduced. LV ejection fraction calculated using the bi-plane method of disks is 39 %. There is moderate global hypokinesis of the left ventricle . Cardiac Mechanics/Speckle Tracking Imagi ng: Speckle trackng imaging for longitudinal deformation measure was performed; the GLS is -12.7%. Abnormal global longitudinal peak systolic value. Diastology: Tissue Doppler was not obtained. B hump on Mitral valve M mode suggestive of increased filling pressures. Right Ventricle: Grossly normal size and systolic functio n. Atria: Atria are normal in size. Injection of a gitated saline shows evidence of shunting at the intra-atrial level. Mitral Valve: The mitral valve is grossly normal. Ther e is no mitral regurgitation noted. Tricuspid Valve: The tricuspid valve is not well visualiz ed, but is grossly normal. There is trace tricuspid regurgitation. Unable to estimate RVSP due to lack of TR visualization. Aortic Valve: The aortic valve is trileaflet. The aort ic valve opens well. No aortic regurgitation is present. Pulmonic Valve: The pulmonic valve is not well visualize d. There is no pulmonic valvular regurgitation. Great Vessels: The aortic root is normal size. The infe rior vena cava was not well visualized. Pericardium/Pleural: There is no pericardial effusion. MMode/2D Measurements IVSd: 0.65 cm LVIDd: 4.8 cm LVIDs: 3.7 cm LVPWd: 0.58 cm FS: 23.1 % EDV(MOD-A4C): 87.6 ml ESV(MOD-A4C): 53.7 ml EF(MOD-A4C): 38.7 % EDV(MOD-A2C): 98.6 ml ESV(MOD-A2C): 62.1 ml EDV(MOD-bp): 95.2 ml EF(MOD-A2C): 37.0 % ESV(MOD-bp): 58 .5 ml EF(MOD-bp): 38.6 % LAV(MOD-A2C): 22.3 ml EDV (MOD-bp) I ndex: 67.1 ml/m2 LAV(MOD-A4C): 24.5 ml LAV(MOD-bp): 23.4 ml LAV(MOD-bp) Indexed: 16.5 ml/m2 RWT: 0.24 cm ESV (MOD-bp) Index: 41.2 ml/m2 Doppler Measurements TR max jose alfredo: 233.3 cm/sec TR max P.8 mmHg Megan Kapadia MD CV ECHO ORDERABLES Performing Organization Address City/State/ZIP Code Phon e Number ISCV US RENAL (03/27/2022 3:52 PM PHOTOENGRAVER)Only the most recent of2 resultswithin the time period is included. Anatomical Region Laterality Modality Abdomen Ultrasound Specimen (Source) Anatomical Collection Method Collection Time Re ceived Time Location / / Volume Laterality 03/27/2022 4:06 PM PHOTOENGRAVER Impressions 03/27/2022 4:08 PM PHOTOENGRAVER No hydronephrosis. Narrative 03/27/2022 4:08 PM PHOTOENGRAVER Examination: US RENAL, 03/27/2022 3:52 P M Clinical History: Pyelonephritis Indication: Other:, hydronephrosis. Also appears retained urine in bladder despite mckoy. Please make sure to eval bladder and kidneys. Comparison: Renal sonogram March 25 023 Technique: Grayscale and color Doppler u ltrasound of the kidneys and urinary bladder. Findings: The bilateral renal echogenicity is norm al. A small cyst is present in the mid right kidney. Arterial and venous flow is present both kidneys. The right kidney is 13 cm in length and the left kidney is 12 cm in length. The urinary bladder is decompressed with a Mckoy catheter in place. Procedure Note Alvaro Martinez MD - 03/27/2022Forma tting of this note might be different from the original. Examination: US RENAL, 03/27/2022 3:52 PM Clinical History: Pyelonephritis Indication: Other:, hydronephrosis. Also appears retained urine in bladder despite mckoy. Please make sure to eval bladder and kidneys. Comparison: Renal sonogram March 25 Technique: Grayscale and color Doppler u ltrasound of the kidneys and urinary bladder. Findings: The bilateral renal echogenicity is norm al. A small cyst is present in the mid right kidney. Arterial and venous flow is present both kidneys. The right kidney is 13 cm in length and the left kidney is 12 cm in length. The urinary bladder is decompressed with a Mckoy catheter in place. IMPRESSION: No hydronephrosis. Martínez Menedz APRN IMDavid US ORDERABLES Antinuclear Antibody (ED) HEp-2 Substrate, IgG (03/26/2022 1:31 PM PHOTOENGRAVER) [facility] Method Time Signature ED HEp-2 See Footnote <1:80 [facility] ([facility] ) [facility] Comment: RESULT: <1:80 (Negative) ADDITIONAL INFORMATIO N Method: Immunofluorescence using HEp-2 c ellular substrate. Test Performed by: [facility] [address] [id number] Graduate Teaching Associate: Nito Marie M.D. Ph. D.; CLIA# [id number] Specimen Anatomical Collection Method Collection Time Receive d Time (Source) Location / / Volume Laterality Blood 03/26/2022 1:31 PM 3 2:04 PHOTOENGRAVER PM PHOTOENGRAVER Jayda Shaw MD LAB BLOOD ORDERABLES Performing Organization Address City/State/ZIP Code Phon e Number [facility] Unless otherwise noted, [address] all lab tests performed by: Division of Pathology and Laboratory Medicine [facility] (ABNORMAL) Procalcitonin (03/26/2022 1:31 PM PHOTOENGRAVER)Only the most recent of2 resultswithin the time period is included. Analysis Performed At Patho logist Time Signature Procalcitonin 30.39 (H) <=0.08 [facility] ng/mL [facility] Comment: Procalcitonin > 2.00 ng/mL: Procalcit onin levels above 2.00 ng/mL are highly suggestive of a high risk for systematic bacterial infection/ severe sepsis and/or septic shock. Procalcitonin < 0.50 ng/mL: Procalcito anu levels below 0.50 ng/mL are at low risk for progression to severe sepsis and/ or septic shock. Procalcitonin (ProCT) between 0.15 and 2 .0 ng/mL do not exclude infection, because localized infections (without systemic signs) may be associated with such low levels. Results greater than 400 ng/mL may not b e reliable due to the matrix effect with extended dilution as it exceeds the maritime officer's recommended limit. Caution should be exercised when interpreting such values and done in conjunction with clinical context. Specimen Anatomical Collection Method Collection Time Receive d Time (Source) Location / / Volume Laterality Blood 03/26/2022 1:31 PM 3 1:53 PHOTOENGRAVER PM PHOTOENGRAVER Jayda Shaw MD LAB BLOOD ORDERABLES Performing Organization Address City/State/ZIP Code Phon e Number [facility] Unless otherwise noted, [place] [address] [place] all lab tests performed by: Division of Pathology and Laboratory Medicine [address] [place] [address] Anti-Neutrophil Cytoplasmic Antibodies Vascultitis Panel (03/26/2022 1:31 PM PHOTOENGRAVER) athologist Signature Myeloperox <0.2 <0.4 [facility] (Negative) [facility]ER CENTER Units Proteinase 3 <0.2 <0.4 [facility] (Negative) [facility]CER CENTER Units Comment: Test Performed by: [facility] [address] [id number] Graduate Teaching Associate: Nito Marie M.D. Ph. D.; CLIA# [id number] Specimen Anatomical Collection Method Collection Time Receive d Time (Source) Location / / Volume Laterality Blood 03/26/2022 1:31 PM 3 2:04 PHOTOENGRAVER PM PHOTOENGRAVER Jayda Shaw MD LAB BLOOD ORDERABLES Performing Organization Address City/[facility]/ZIP Code Phon e Number [facility] Unless otherwise noted, [address] all lab tests performed by: Division of Pathology and Laboratory Medicine [address] Blood Culture (03/26/2022 1:31 PM PHOTOENGRAVER)Only the most recent of4 resultswithin the time period is included. Component Value Ref Test Analysis Performed At [facility] gist Range Method Time Signature Final Report No growth [facility] Path Review - Immunity and antibiotic use may render culture negative. Ongoing infection requires repeat culture. The results have been reviewed and electronically signed by Pathologist: [place] MD Newell/Brett Vázquez MD, PhD #[id number] [facility] Specimen Anatomical Collection Method Collection Time Receive d Time (Source) Location / / Volume Laterality Blood (Arterial 03/26/2022 1:31 PM 2022 3:57 Line) PHOTOENGRAVER PM PHOTOENGRAVER Satya Rust MARKETING ASSISTANT MANAGER MICROBIOLOGY - GENERAL ORDER YULIANA Performing Organization Address City/[facility] Phon e Number [facility] Unless otherwise noted, [address] all lab tests performed by: Division of Pathology and Laboratory Medicine [facility] [place] (ABNORMAL) Sed Rate (03/26/2022 1:31 PM PHOTOENGRAVER) athologist Signature Sed Rate 83 (H) 0 - 20 [facility] mm/hr [facility] CENTER Specimen Anatomical Collection Method Collection Time Receive d Time (Source) Location / / Volume Laterality Blood 03/26/2022 1:31 PM 3 1:47 PHOTOENGRAVER PM PHOTOENGRAVER Jayad Shaw MD LAB BLOOD ORDERABLES Performing Organization Address City/[facility] Phon e Number [facility] Unless otherwise noted, [address] all lab tests performed by: Division of Pathology and Laboratory Medicine [address] CRP (03/26/2022 1:31 PM PHOTOENGRAVER)Only the most recent of2 resultswithin the time period is included. athologist Signature CRP 239.41 mg/L [facility] [place] Comment: Reference ranges for HS CRP assay are as follows: Reference ranges when used to assess car diac risk: <1.00 mg/L Low cardiovascular risk 1.00-3.00 mg/L Average cardiovascular risk >3.00 mg/L High cardiovascular risk. Reference ranges when used to assess inf lammatory responses: Less than or equal to 10.00 mg/L. Specimen Anatomical Collection Method Collection Time Receive d Time (Source) Location / / Volume Laterality Blood 03/26/2022 1:31 PM 3 1:53 PHOTOENGRAVER PM PHOTOENGRAVER Jayda Shaw MD LAB BLOOD ORDERABLES Performing Organization Address City/State/ZIP Code Phon e Number [facility] Unless otherwise noted, [place] [address] [place] all lab tests performed by: Division of Pathology and Laboratory Medicine [address] Echocardiogram 2D Complete with Contrast (03/26/2022 12:19 PM PHOTOENGRAVER) Specimen (Source) Anatomical Collection Method Collection Time Re ceived Time Location / / Volume Laterality 03/26/2022 11:46 AM PHOTOENGRAVER Narrative ISCV - 03/26/2022 1:28 PM PHOTOENGRAVER Echocardiographic Report Interpretation Summary A complete two-dimensional transthoracic echocardiogram was performed (2D, M- mode, Spectral and color Doppler). Consider Micro-Bubbles injection for shunt detection. Patient is tachycardic. The study wa s technically limited despite the use of micro-bubbles. Recommend repeat study when patients heart rate is controlled. The left ventricle is normal in size.The re is severe global LV systolic dysfunction.Using an ultrasound enhancing agent and the Biplane Method of Disks, the LVEF measures 25-30% The right ventricle is grossly normal si ze.The right ventricular systolic function and contractility is reduced. Unable to estimate RVSP due to lack of T R visualization. Left Ventricle: The left ventricle is normal in size. Th ere is normal left ventricular wall thickness. There is severe global LV systolic dysfunction. Using an ultrasound enhancing agent and the Biplane Method of Disks, the LVEF measures 25-30%. I WMSI = 2.00 % Normal = 0 Segments Size X - Cannot 2 - 1-2 small Interpret 1 - Normal Hypokine tic 3 - Akinetic 4 - Dyskinetic3- 5 moderate 5 - Aneurysmal 6-14 large 15-16 diffuse 3D imaginD volumes were not performed in this st udy. Cardiac Mechanics/Speckle Tracking Imagi ng: Speckle tracking imaging was not perform ed in this study. (GE Study). Diastology: Unable to evaluate due to tachycardia. Right Ventricle: The right ventricle is grossly normal si ze. The right ventricular systolic function and contractility is reduced. Atria: Atria are normal in size. Mitral Valve: The mitral valve is grossly normal. Tricuspid Valve: The tricuspid valve is not well visualiz ed. Unable to estimate RVSP due to lack of TR visualization. Aortic Valve: The aortic valve opens well. Pulmonic Valve: The pulmonic valve is not well visualize d. Great Vessels: The aortic root is normal size. IVC is d ilated. The IVC measures cannot be used for RA, PASP pressure estimation in patients under mechanical ventilation. Pericardium/Pleural: There is no pericardial effusion. MMode/2D Measurements IVSd: 0.78 cm LVIDd: 4.0 cm LVIDs: 3.3 cm LVPWd: 0.81 cm FS: 18.2 % Ao root diam: 2.2 cm Ao root area: 3.8 cm2 LA dimension: 2.6 cm LVOT diam: 1.9 cm EDV(MOD-A4C): 72.5 ml ESV(MOD-A4C): 52.5 ml LVOT area: 2.7 cm2 EF(MOD-A4C): 27.5 % EDV(MOD-A2C): 79.6 ml ESV(MOD-A2C): 61.9 ml EDV(MOD-bp): 76.0 ml EF(MOD-A2C): 22.2 % ESV(MOD-bp): 56.8 ml EF(MOD-bp): 25.2 % LAV(MOD-A2C): 6.3 ml LAV(MOD-A4C): 14.1 ml EDV (MOD-bp) Index: 54.6 ml/m2 LAV(MOD-bp): 12.2 ml LAV(MOD-bp) Indexed: 8.8 ml/m2 ESV (MOD-bp) Index: 40.8 ml/m2 RWT: 0.41 cm TAPSE (>1.6): 1.1 cm Doppler Measurements MV E max jose alfredo: 103.0 cm/sec MV V2 max: 102.0 cm/sec MV max P.2 mmHg MV V2 mean: 62.2 cm/sec MV mean P.9 mmHg MV V2 VTI: 11.1 cm MVA(VTI): 3.8 cm2 MV dec time: 0.06 sec Ao V2 max: 119.8 cm/sec Ao max P.7 mmHg Ao V2 mean: 73.7 cm/sec Ao mean P.6 mmHg Ao V2 VTI: 14.3 cm NADEEM(I,D): 2.9 cm2 NADEEM(V,D): 2.7 cm2 LV V1 max P.9 mmHg SV(LVOT): 41.9 ml LV V1 mean P.5 mmHg LV V1 max: 121.2 cm/sec LV V1 mean: 71.8 cm/sec LV V1 VTI: 15.5 cm PA V2 max: 84.2 cm/sec TR max jose alfredo: 213.5 cm/sec PA max P.8 mmHg TR max P.3 mmHg PA V2 mean: 55.6 cm/sec PA mean P.4 mmHg PA V2 VTI: 11.1 cm NADEEM Index (I,D): 2.1 NADEEM Index (V,D): 2.0 Dimensionless Index: 1.0 Procedure Note Michelle Gusman MD - 03/26/2022Formattin g of this note might be different from the original. Echocardiographic Report Interpretation Summary A complete two-dimensional transthoracic echocardiogram was performed (2D, M- mode, Spectral and color Doppler). Consider Micro-Bubbles injection for shunt detection. Patient is tachycardic. The study was technically limited despite the use of micro-bubbles. Recomm end repeat study when patients heart rate is controlled. The left ventricle is normal in size.The re is severe global LV systolic dysfunction.Using an ultrasound enhancing agent and the Biplane Method of Disks, the LVEF measures 25-30% The right ventricle is grossly normal si ze.The right ventricular systolic function and contractility is reduced. Unable to estimate RVSP due to lack of T R visualization. Left Ventricle: The left ventricle is normal in size. Th ere is normal left ventricular wall thickness. There is severe global LV systolic dysfunction. Using an ultrasound enhancing agent and the Biplane Method of Disks, the LVEF measures 25-30%. I WMSI = 2.00 % Normal = 0 Segments Size X - Cannot 2 - 1-2 small Interpret 1 - Normal Hypokinetic 3 - Kurt netic 4 - Dyskinetic3-5 moderate 5 - Aneurysmal 6-14 large 15-16 diffuse 3D imaginD volumes were not performed in this st udy. Cardiac Mechanics/Speckle Tracking Imagi ng: Speckle tracking imaging was not perform ed in this study. (GE Study). Diastology: Unable to evaluate due to tachycardia. Right Ventricle: The right ventricle is grossly normal si ze. The right ventricular systolic function and contractility is reduced. Atria: Atria are normal in size. Mitral Valve: The mitral valve is grossly normal. Tricuspid Valve: The tricuspid valve is not well visualiz ed. Unable to estimate RVSP due to lack of TR visualization. Aortic Valve: The aortic valve opens well. Pulmonic Valve: The pulmonic valve is not well visualize d. Great Vessels: The aortic root is normal size. IVC is d ilated. The IVC measures cannot be used for RA, PASP pressure estimation in patients under mechanical ventilation. Pericardium/Pleural: There is no pericardial effusion. MMode/2D Measurements IVSd: 0.78 cm LVIDd: 4.0 cm LVIDs: 3.3 cm LVPWd: 0.81 cm FS: 18.2 % Ao root diam: 2.2 cm Ao root area: 3.8 cm2 LA dimension: 2.6 cm LVOT diam: 1.9 cm EDV(MOD-A4C): 72.5 ml ESV(MOD-A4C): 52.5 ml LVOT area: 2.7 cm2 EF(MOD-A4C): 27. 5 % EDV(MOD-A2C): 79.6 ml ESV(MOD-A2C): 61.9 ml EDV(MOD-bp): 76.0 ml EF(MOD-A2C): 22.2 % ESV(MOD-bp): 56. 8 ml EF(MOD-bp): 25.2 % LAV(MOD-A2C): 6.3 ml LAV(MOD-A4C): 14.1 ml EDV (MOD-bp) I ndex: 54.6 ml/m2 LAV(MOD-bp): 12.2 ml LAV(MOD-bp) Indexed: 8.8 ml/m2 ESV (MOD-bp) Index: 40.8 ml/m2 RWT: 0.41 cm TAPSE (>1.6): 1.1 cm Doppler Measurements MV E max jose alfredo: 103.0 cm/sec MV V2 max : 102.0 cm/sec MV max P.2 mmHg MV V2 mean: 62.2 cm/sec MV mean P.9 mmHg MV V2 VTI: 11.1 cm MVA(VTI): 3.8 cm2 MV dec time: 0.06 sec Ao V2 max: 11 9.8 cm/sec Ao max P.7 mmHg Ao V2 mean: 73.7 cm/sec Ao mean P.6 mmHg Ao V2 VTI: 14.3 cm NADEEM(I,D): 2.9 cm2 NADEEM(V,D): 2.7 cm2 LV V1 max P.9 mmHg SV(LVOT): 41.9 ml LV V1 mean P.5 mmHg LV V1 max: 121.2 cm/sec LV V1 mean: 71.8 cm/sec LV V1 VTI: 15.5 cm PA V2 max: 84.2 cm/sec TR max jose alfredo: 213.5 cm/sec PA max P.8 mmHg TR max P.3 mmHg PA V2 mean: 55.6 cm/sec PA mean P.4 mmHg PA V2 VTI: 11.1 cm NADEEM Index (I,D): 2.1 NADEEM Index (V,D) : 2.0 Dimensionless Index: 1.0 Ellie Jasvir COEN CV ECHO ORDERABLES Performing Organization Address City/State/ZIP Code Phon e Number ISCV PROCEDURE FOR CODING (03/26/2022 11:37 AM PHOTOENGRAVER) Narrative Satya Rust NP - 03/26/2022 11: 37 AM PHOTOENGRAVER Satya Rust NP 03/26/2022 11:39 AM Procedures Procedure Date: 03/26/22 Indication(s) for Procedure: Hypovolemia , Need for venous access and Transfusion of blood products & medi cations Allergies: No Known Allergies Provider Information: Procedurist: SATYA RUST NP Pre-Procedure Note: Chart and relevant tests/films were revi ewed prior to initiation of the procedure The universal protocol safety checklist was used to confirm patient identification, the appropriate site was marked (if applicable), and a time out was performe d Patient Condition: Patient is obtunded Is the patient on full dose anticoagu lation: no Consent: Informed consent was not obtain ed due to emergent need for this procedure Procedure Description: Equipment: 7 Kazakh 3-Lumen minocycline/rifampin co ated COOK central venous catheter kit Sterile gown, gloves, and towel pack. Sterile dressing and Biopatch. Procedure Details: Equipment prepared and ready. Patient positioned for procedure: supine Maximal barriers applied (hat, mask, sue rile gown, sterile gloves, sterile drape). Hand hygiene performed by all persons pe rforming/assisting with the insertion. Insertion site: Right femoral vein The area was prepped with Chlorhexidine and draped in sterile fashion. Local anesthesia achieved with 1% Lidoca ine Ultrasound Guidance: yes The vein was accessed on the second atte mpt with return of non-pulsatile dark red blood. Using ster ile Seldinger technique the guidewire, dilator, and catheter pas sed easily. The guidewire was removed, inspected by the proceduris t, and removal confirmed by FARZAD Rodríguez. A drip test was performed confirming venous placement. Each port aryan back blood and flushed easily. Catheter secured by 3.0 silk sutures. Ar ea cleaned with Chlorhexidine and a Biopatch with steril e dressing was applied. Immediately following the procedure, a d ebrief was performed. Components of the universal protocol saf ety checklist were documented in the electronic health [address]. Additional comments:none EBL: none Specimens removed: no Complications: no immediate complication s Assessment/Plan: Successful placement of CVC catheter Disposition:Remain in ICU bed. Satya Rust MARKETING ASSISTANT MANAGER IV THERAPY ORDERABLES Legionella Urine Antigen Path Review (03/26/2022 11:23 AM PHOTOENGRAVER) Component Value Ref Test Analysis Performed At [facility] Range Method Time Signature Legionella Reviewed and Electronically signed by Pathologist: MARTY HENDERSON Urine Antigen NORMAN CAMARILLO MD #[id number] [facility] Path Review [facility] Comment: NOMRAN CAMARILLO MD - [id number] Dictated by: MD Jimmy PALACIOS [id number] Dictated Date/Time: 03.27.2022 19:35 PM PHOTOENGRAVER Transcribed Date/Time: 03.27.2022 19:35 PM PHOTOENGRAVER Electronically Signed By: MD Jimmy HAWKINS [id number] on 03.27.2022 19:35 PM Specimen Anatomical Collection Method Collection Time Receive d Time (Source) Location / / Volume Laterality Urine 03/26/2022 11:23 03/27/2022 AM PHOTOENGRAVER 12:33 PM PHOTOENGRAVER Iwona Samuels APRN MICROBIOLOGY - GENERAL ORDER YULIANA Performing Organization Address City/[facility]/ZIP Code Phon e Number [facility] Unless otherwise noted, [address] all lab tests performed by: Division of Pathology and Laboratory Medicine [address] [place] [address] [place] Streptococcal Urine Antigen Path Review (03/26/2022 11:23 AM PHOTOENGRAVER) Component Value Ref Test Analysis Performed Pathologis t Range Method Time At Signature Streptococcal Reviewed and Electronically signed by Pathologist: [place] Urine Antigen NORMAN CAMARILLO MD #[id number] [place] Path [facility] [place] Comment: NORMAN CAMARILLO MD - [id number] Dictated by: MD Jimmy PALACIOS [id number] Dictated Date/Time: 03.27.2022 19:35 PM PHOTOENGRAVER Transcribed Date/Time: 03.27.2022 19:35 PM PHOTOENGRAVER Electronically Signed By: MD Jimmy HAWKINS [id number] on 03.27.2022 19:35 PM Specimen Anatomical Collection Method Collection Time Receive d Time (Source) Location / / Volume Laterality Urine 03/26/2022 11:23 03/27/2022 AM PHOTOENGRAVER 12:33 PM PHOTOENGRAVER Iwona Samuels APRN MICROBIOLOGY - GENERAL ORDER YULIANA Performing Organization Address City/State/ZIP Code Phon e Number [facility] Unless otherwise noted, [address] all lab tests performed by: Division of Pathology and Laboratory Medicine [address] [place], [place] [address] Streptococcus pneumoniae Urine Antigen (03/26/2022 11:23 AM PHOTOENGRAVER) Component Value Ref Test Analysis Performed At [facility] Method Time [facility] Streptococcal Presumptive negative for S. pneumoniae antigen in the urine, suggesting no current or recent pneumococcal infection. However, infection due to S. pneumoniae cannot be completely ruled out since the leve [facility] Urine Antigen l of antigen present in the urine may be below the BALDEV Interpretation detection limit of the test. [facility] Streptococcal Negative [facility] Urine Antigen [facility] Interpretation [facility] Specimen Anatomical Collection Method Collection Time Receive d Time (Source) Location / / Volume Laterality Urine 03/26/2022 11:23 03/26/2022 1:50 AM PHOTOENGRAVER PM PHOTOENGRAVER Ellie Tay APRN MICROBIOLOGY - GENERAL ORDER YULIANA Performing Organization Address City/[facility] Phon e Number [facility] [facility] Unless otherwise noted, [address] all lab tests performed by: Division of Pathology and Laboratory Medicine [address] [place] [address] Sandeep Legionella Urine Antigen (03/26/2022 11:23 AM PHOTOENGRAVER) Component Value Ref Test Analysis Performed At [facility] Method [facility] Legionella Urine Negative for L. pneumophila serogroup 1 antigen, suggesting no recent or current infection. However, infections due to other serogroups and species of Legionella are not detected by this assay. In addition, antigen may not be present in the urine in [facility] Antigen early infection and the leve l of antigen present in the urine may be below the detection limit of the test. AN CESAR Interpretation [facility] Legionella Urine Negative [facility] Antigen [facility]DEV Interpretation [facility] Specimen Anatomical Collection Method Collection Time Receive d Time (Source) Location / / Volume Laterality Urine 03/26/2022 11:23 03/26/2022 1:50 AM PHOTOENGRAVER PM PHOTOENGRAVER Ellie Tay APRN MICROBIOLOGY - GENERAL ORDER YULIANA Performing Organization Address City/[facility] Phon e Number [facility] Unless otherwise noted, [address] all lab tests performed by: Division of Pathology and Laboratory Medicine [address] [place] [address] Mcgrady MRSA Screening Culture (03/26/2022 11:23 AM PHOTOENGRAVER) Component Value Ref Test Analysis Performed At [facility] Method Time [facility] Final Report No Methicillin [facility] Staphylococcus CANCER aureus isolated. CENTER Path Review The results have been review ed and electronically signed by Pathologist: [place] MD NORMAN CAMARILLO MD #[id number] A [facility] Specimen Anatomical Collection Method Collection Time Receive d Time (Source) Location / / Volume Laterality Nasal 03/26/2022 11:23 03/26/2022 1:58 AM PHOTOENGRAVER PM PHOTOENGRAVER Ellie Tay APRN MICROBIOLOGY - GENERAL ORDER YULIANA Performing Organization Address City/State/ZIP Code Phon e Number [facility] Unless otherwise noted, [address] all lab tests performed by: Division of Pathology and Laboratory Medicine [address] (ABNORMAL) Fibrinogen (03/26/2022 11:01 AM PHOTOENGRAVER) athologist Signature Fibrinogen 697 (H) 214 - 503 [facility] mg/dL [facility] Specimen Anatomical Collection Method Collection Time Receive d Time (Source) Location / / Volume Laterality Blood 03/26/2022 11:01 03/26/2022 AM PHOTOENGRAVER 11:11 AM PHOTOENGRAVER Satya Rust APRN LAB BLOOD ORDERABLES Performing Organization Address City/State/ZIP Code Phon e Number [facility] Unless otherwise noted, [address] all lab tests performed by: Division of Pathology and Laboratory Medicine [address] [place] ARTL CATHJ/CANNULJ MNTR/TRANSFUSION SPX PRQ, HC ARTERIAL LINE FOR BP MON (03/26/2022 10:45 AM PHOTOENGRAVER) Satya Wallace NP - 03/26/2022 10: 45 AM PHOTOENGRAVER Satya Rust NP 03/26/2022 10:48 AM Arterial line insertion Date/Time: 03/26/2022 10:45 AM Provider Information: Performed by: Satya Rust NP Authorized by: Satya Rust NP Allergies: No Known Allergies Satya Rust APRN PROCEDURE/MINOR SURGICAL ORD ERABLES X-ray Chest 1 View (03/26/2022 10:27 AM PHOTOENGRAVER)Only the most recent of2 results within the time period is included. Anatomical Region Laterality Modality Chest Digital Radiography Specimen (Source) Anatomical Collection Method Collection Time Re ceived Time Location / / Volume Laterality 03/26/2022 10:31 AM PHOTOENGRAVER Impressions 03/26/2022 10:32 AM PHOTOENGRAVER Endotracheal tube with its distal tip in the proximal aspect of right mainstem bronchus. Reposition is recommended. Interval increase of bilateral lung opac ities may represent pneumonia, pulmonary edema or hemorrhage superimposed to atelectasis. Narrative 03/26/2022 10:32 AM PHOTOENGRAVER FULL RESULT: Examination: XR CHEST 1 VW, 03/26/2022 10 :27 AM Clinical History: Pyelonephritis Indication: ETT placement Comparison: March 25, 2022 Technique: Anteroposterior radiograph of the chest. Findings: Endotracheal tube with its distal tip in the proximal aspect of right mainstem bronchus. Interval increase of bilateral lung opac ities. No evident pneumothorax. Cardiomediastinal silhouette is partiall y obliterated. Procedure Note Danie Ornelas MD - 03/26/2022Form atting of this note might be different from the original. FULL RESULT: Examination: XR CHEST 1 VW, 03/26/2022 10 :27 AM Clinical History: Pyelonephritis Indication: ETT placement Comparison: March 25, 2022 Technique: Anteroposterior radiograph of the chest. Findings: Endotracheal tube with its distal tip in the proximal aspect of right mainstem bronchus. Interval increase of bilateral lung opac ities. No evident pneumothorax. Cardiomediastinal silhouette is partiall y obliterated. IMPRESSION: Endotracheal tube with its distal tip in the proximal aspect of right mainstem bronchus. Reposition is recommended. Interval increase of bilateral lung opac ities may represent pneumonia, pulmonary edema or hemorrhage superimposed to atelectasis. Elliedayana Tay APRN IMG DIAGNOSTIC IMAGING ORDER YULIANA (ABNORMAL) Clive Miscellaneous Test (03/26/2022 10:24 AM PHOTOENGRAVER) [facility] Method Time Signature Clive RL Test See Footnote MARTY HENDERSON Result (A) [facility] Comment: Test Result Flag Unit RefValue Beta-Hydroxybutyrate, S 2.0 H mmol/L <0.4 Test Performed by: [address] [address] Graduate Teaching Associate: Nito Mixon. Ph.D.; CLIA# [id number] [facility] Test Name Beta-Hydroxybutyrate U T [facility] Specimen Anatomical Collection Method Collection Time Receive d Time (Source) Location / / Volume Laterality Varies 03/26/2022 10:24 03/26/2022 AM PHOTOENGRAVER 11:18 AM PHOTOENGRAVER Narrative [facility] - 4:11 PM PHOTOENGRAVER Beta-Hydroxybutyrate Karin WHITMAN LAB BLOOD ORDERABLES Performing Organization Address City/State/ZIP Code Phon e Number [facility] Unless otherwise noted, [address] all lab tests performed by: Division of Pathology and Laboratory Medicine Kimberly Hopkins Legionella Culture (03/26/2022 10:17 AM PHOTOENGRAVER) Component Value Ref Test Analysis Performed At Patholo gist Range Method Time Signature Final Report No Legionella [place] species isolated [facility] Path Review - The results have been review ed and electronically signed by Pathologist: [place] Legionella Abiodun Vázquez MD, PhD #[id number] [facility] Specimen Anatomical Collection Method Collection Time Receive d Time (Source) Location / / Volume Laterality Tracheal 03/26/2022 10:17 03/26/2022 1:55 Aspirate AM PHOTOENGRAVER PM PHOTOENGRAVER Ellie Tay APRN MICROBIOLOGY - GENERAL ORDER YULIANA Performing Organization Address City/[facility]/[place]IP [facility] Ph[place] e Number [facility] Unless otherwise noted, [address] all lab tests performed by: Division of Pathology and Laboratory Medicine Kimberly Hopkins (ABNORMAL) POC Chem 8 (03/26/2022 10:01 AM PHOTOENGRAVER) P athologist Signature POC NA 145 138 - 146 [facility] mEq/L POC K 3.1 (L) 3.5 - 4.9 [facility] mEq/L Comment: Method description: The i-STAT is an ed lyzer used for in vitro quantification of various analytes in whole blood. The device uses a single disposable cartridge which contains microfabricated sensors, a calibration solution, fluidics system, and a waste chamber. Each test cartridge contains ch emically sensitive biosensors on a silicon chip that are configured to perform specific tests. The microfabricated sensors measure analyte concentration by an electrochemical assay. POC CL 103 98 - 109 mEq/L [facility] POC ATCO2 27 23 - 27 mEq/L [facility] POC Anion Gap 19 10 - 20 mmol/L [facility] POC BUN 7 (L) 8 - 26 mg/dL [facility] POC Crea 0.4 (L) 0.6 - 1.3 mg/dL [facility] Comment: Medications, especially hydroxyurea or s upplements, such as ascorbate, can interfere with test results causing a falsely and significantly higher result than expected. If a problem is suspected with a patient's result, a sample should be sent to the laboratory for confirmatory testing. Method description: The i-STAT is an ed lyzer used for in vitro quantification of various analytes in whole blood. The device uses a single disposable cartridge which contains microfabricated sensors, a calibration solution, fluidics system, and a waste chamber. Each test cartridge contains ch emically sensitive biosensors on a silicon chip that are configured to perform specific tests. The microfabricated sensors measure analyte concentration by an electrochemical assay. POC EGFR 141 >=60 mL/min/1.73 sq. m POC [facility] Comment: The eGFRcr is calculated with the 2020 KD-EPI creatinine equation using creatinine, patient's age, and sex for adults 18 years of age and older. Other factors, especially muscle mass, may affect accuracy and need to be considered. According to the Kidney Disease: Improvi ng Global Outcomes (KDIGO) CKD Work Group 2012 Clinical Practice Guideline, chronic kidney disease (CKD) is defined as the abnormalities of kidney structure or function, present for more than 3 months, with implications for health. CKD should be c lassified by cause, GFR category, and albuminuria category. KDIGO guidelines provide the following GFR categories Stage Description GFR mL/min/1.73 m2 G1* Normal or high >= 90 G2* Mildly decreased 60-89 G3a Mildly to moderately decreased 45-59 G3b Moderately to severely decreased 30- 44 G4 Severely decreased 15-29 G5 Kidney failure <15 *In the absence of evidence of kidney da mage, neither G1 nor G2 fulfill criteria for CKD. POC Glucose 224 (H) 70 - 99 mg/dL [facility]OC [facility] Comment: Medications, especially hydroxy urea, can interfere with test results causing a falsely and significantly higher resul t than expected. If a problem is suspected with a patient's result, a sample should be sent to the laboratory for confirmatory testing. POC Ion Ca 0.97 (L) 1.12 - 1.32 mmol/L [facility] POC Hct 38.0 38.0 - 51.0 % POC [facility] POC Hgb 12.9 12.0 - 17.0 gm/dL POC [facility] Comment: Hematocrit values from the iSTAT are det ermined conductometrically, which may be affected by WBC count, levels of total protein, lipids, or sodium. The hemoglobin result is calculated based on the corre sponding measured hematocrit and assumes a normal MCHC. If there is a discrepancy between the results from iSTAT and conventional laboratory method, the result from conventional method should be considered the accurate standard. POC Sample Type Arterial POC [facility] POC Clean Dev Yes POC [facility] Performing Lab [facility] POC TELCO R Comment: [facility] Clinical Lab, [address] [place] [address], [place] [address]; Lab Direct or: Marylou Olmstead MD; Waived Point of Care Testing - Luz Maria Vázquez MD Specimen Anatomical Collection Method Collection Time Receive d Time (Source) Location / / Volume Laterality Blood 03/26/2022 10:01 03/26/2022 AM PHOTOENGRAVER 10:01 AM PHOTOENGRAVER Idania Shah MD POCT ORDERABLES - DEVICE Performing Organization Address City/State/ZIP Code Phon e Number POC [facility] Unless otherwise noted, all [place] [id number] lab tests performed by: Division of Pathology and Laboratory Medicine [address] [place] [address] (ABNORMAL) POC ABG (03/26/2022 9:55 AM PHOTOENGRAVER)Only the most recent of2 results within the time period is included. athologist Signature POC AB pH 7.34 (L) 7.35 - 7.45 POC [facility] Comment: The i-STAT is an analyzer used for in vi tro quantification of various analytes in whole blood. The device uses a single disposable cartridge which contains microfabricated sensors, a calibration Adstrix, fluidics system, and a waste chamber. Each test cartridge contains chemically sensitive biosensors on a silicon chip that are configured to perform specific tests. The microfabricated sensors measure analyte concentration by an electrochemical assay. POC AB pCO2 49 (H) 35 - 45 mmHg POC [facility] POC AB pO2 46 (C) 80 - 105 mmHg POC [facility] POC AB TCO2 28 (H) 23 - 27 mEq/L [facility]OC [facility] POC AB Bicarb 26 22 - 26 mmol/L [facility] POC AB Base Ex 0 -2 - 3 mmol/L POC [facility] POC AB O2 Sat 78 (L) 95 - 98 % POC [facility] POC FiO2 100 POC [facility] POC ABG Draw Site Rt Radial POC [facility] POC Elias Test Not Performed POC [facility] POC Sample Type Arterial POC [facility] POC Clean Dev Yes POC [facility] Performing Lab [facility] POC TELCO R Comment: [facility] Clinical Lab, [address] [place] [address]; Lab Direct or: Marylou Olmstead MD; Waived Point of Care Testing - Luz Maria Vázquez MD Specimen Anatomical Collection Method Collection Time Receive d Time (Source) Location / / Volume Laterality Blood 03/26/2022 9:55 AM 9:55 PHOTOENGRAVER AM PHOTOENGRAVER Idania Shah MD POCT ORDERABLES - DEVICE Performing Organization Address City/[facility] Phon e Number POC [facility] Unless otherwise noted, [place] [address] lab tests performed by: Division of Pathology and Laboratory Medicine [address] [place] [address] Lower Respiratory Culture w/Gram Stain (03/26/2022 9:36 AM PHOTOENGRAVER) Component Value Ref Test Analysis Performed At [facility] gist Range Method Time Signature Final Report No growth [facility] Path Review The results have been review ed and electronically signed by Pathologist: [place] MD NORMAN CAMARILLO MD #[id number] A [facility] Gram Stain Few WBC's seen [place] Report No organisms seen. [facility] Specimen Anatomical Collection Method Collection Time Receive d Time (Source) Location / / Volume Laterality Tracheal 03/26/2022 9:36 AM 1:55 Aspirate PHOTOENGRAVER PM PHOTOENGRAVER Ellie Tay APRN MICROBIOLOGY - GENERAL ORDER YULIANA Performing Organization Address City/[facility]/[place]IP [facility] Phon e Number [facility] Unless otherwise noted, [address] all lab tests performed by: Division of Pathology and Laboratory Medicine [address] [place], [place] [address] Culture w/Smear (03/26/2022 9:36 AM PHOTOENGRAVER) Component Value Ref Test Analysis Performed At [facility] Range Method Time Signature Final Report No acid fast [place] bacteria isolated BALDEV at 8 weeks. [facility] Path Review - Culture yield may be affecte d by sample quality, prior treatment, and transportation conditions. [employer] [employer] ... BALDEV The results have been reviewed and electronically signed b y Pathologist: EVELINE Mckeon MD, PhD #[id number] C ENTER Acid Fast No Acid Fast [place] Stain Truant Bacilli seen in [place] direct smear [facility] Specimen Anatomical Collection Method Collection Time Receive d Time (Source) Location / / Volume Laterality Tracheal 03/26/2022 9:36 AM 3 1:55 Aspirate PHOTOENGRAVER PM PHOTOENGRAVER Narrative [facility] - 3 5:56 PM CDT Cultures are held 8 weeks before finaliz ation. Ellie Tay APRN MICROBIOLOGY - GENERAL ORDER YULIANA Performing Organization Address City/[facility]/ZIP Code Phon e Number [facility] Unless otherwise noted, [address] all lab tests performed by: Division of Pathology and Laboratory Medicine [facility] [place] Sandeep Fungus Culture (03/26/2022 9:36 AM PHOTOENGRAVER) Component Value Ref Test Analysis Performed At [facility] Method Time Signature Final Report No Fungi isolated. [facility] Path Review - Culture yield may be affecte d by sample quality, prior treatment, and transportation conditions. The results have been reviewed and electronically signed by Pathologist: [place] Fungus Abiodun Vázquez MD, PhD #[id number] [facility] Specimen Anatomical Collection Method Collection Time Receive d Time (Source) Location / / Volume Laterality Tracheal 03/26/2022 9:36 AM 3 1:55 Aspirate PHOTOENGRAVER PM PHOTOENGRAVER Narrative [facility] - 3 4:14 PM PHOTOENGRAVER Cultures are held for 4 weeks before fin alization. Ellie Tay APRN MICROBIOLOGY - GENERAL ORDER YULIANA Performing Organization Address City/[facility]/ZIP Code Phon e Number [facility] Unless otherwise noted, [address] all lab tests performed by: Division of Pathology and Laboratory Medicine [address] [facility] [address] Chest Pulmonary Embolism with Contrast (03/26/2022 8:42 AM PHOTOENGRAVER) Anatomical Region Laterality Modality Chest Computed Tomography Specimen (Source) Anatomical Collection Method Collection Time Re ceived Time Location / / Volume Laterality 03/26/2022 8:44 AM PHOTOENGRAVER Impressions 03/26/2022 8:54 AM PHOTOENGRAVER Technically adequate exam. No evidence for pulmonary embolism. Development of right greater than left p ulmonary opacities suspicious for pneumonia. Superimposed interstitial pulmonary edema or pulmonary hemorrhage cannot be excluded Small bilateral pleural effusions Increase in size of mediastinal and leti r lymph nodes, likely reactive Narrative 03/26/2022 8:54 AM PHOTOENGRAVER FULL RESULT: Examination: CT CHEST PULMONARY EMBOLISM W CONTRAST, 03/26/2022 8:42 AM Clinical History: Pyelonephritis, papill mike thyroid carcinoma, leukemia Indication: pneumonia, Tachycardia (HR m ore than 100 bpm), , D-dimer not done, Pulmonary embolism suspected Comparison: 10/11/2020 Technique: CT of the chest was performed using intravenous contrast. Findings: Technical Quality: The exam is technical ly adequate for the assessment of pulmonary embolism Pulmonary Arteries: There is no filling defect in the pulmonary arteries to suggest a pulmonary embolism. Tubes and Lines: None Lungs and Airways: There are new right g reater than left consolidation, groundglass opacities and interlobular septal thickening Pleura: Small bilateral pleural effusion s are new. Heart and Mediastinum: 5 mm left supracl avicular lymph node was 4 mm. Multiple additional small supraclavicular lymph nodes are seen. 7 mm AP window lymph node was 4 mm. Subcarinal lymph node has increa sed in size. Right hilar lymph node also appears larger. The heart and pericardium are within normal limits. Soft Tissues: Normal. Upper Abdomen: Diffuse fatty infiltratio n of the liver is again noted. Bones: The visualized bony thorax show s degenerative changes Procedure Note Juliana Webster MD - 03/26/2022 FULL RESULT: Examination: CT CHEST PULMONARY EMBOLISM W CONTRAST, 03/26/2022 8:42 AM Clinical History: Pyelonephritis, papill mike thyroid carcinoma, leukemia Indication: pneumonia, Tachycardia (HR m ore than 100 bpm), , D-dimer not done, Pulmonary embolism suspected Comparison: 10/11/2020 Technique: CT of the chest was performed using intravenous contrast. Findings: Technical Quality: The exam is technical ly adequate for the assessment of pulmonary embolism Pulmonary Arteries: There is no filling defect in the pulmonary arteries to suggest a pulmonary embolism. Tubes and Lines: None Lungs and Airways: There are new right g reater than left consolidation, groundglass opacities and interlobular septal thickening Pleura: Small bilateral pleural effusion s are new. Heart and Mediastinum: 5 mm left supracl avicular lymph node was 4 mm. Multiple additional small supraclavicular lymph nodes are seen. 7 mm AP window lymph node was 4 mm. Subcarinal lymph node has increased in size. Right hilar lymph node also appears larg er. The heart and pericardium are within normal limits. Soft Tissues: Normal. Upper Abdomen: Diffuse fatty infiltratio n of the liver is again noted. Bones: The visualized bony thorax shows degenerative changes IMPRESSION: Technically adequate exam. No evidence f or pulmonary embolism. Development of right greater than left p ulmonary opacities suspicious for pneumonia. Superimposed interstitial pulmonary edema or pulmonary hemorrhage cannot be excluded Small bilateral pleural effusions Increase in size of mediastinal and leti r lymph nodes, likely reactive Robin Noe APRN IMG CT ORDERABLES (ABNORMAL) VBG (03/26/2022 5:28 AM PHOTOENGRAVER) athologist Signature pH Kojo 7.31 (L) 7.32 - 7.43 [facility] Comment: Results are corrected for a bod y temp of 37C pCO2 Kojo 35.9 (L) 41.0 - 51.0 mmHg [place] MD CARINE Storey [facility] pO2 Kojo 56 mmHg [place] MD [facility] R [facility] HCO3 Okjo 18 (L) 21 - 28 mmol/L [facility] Base Excess Kojo -7 (L) -2 - 3 mmol/L [place] MD MOSES MARK [facility] O2 Sat Kojo 90 % [facility] Specimen Anatomical Collection Method Collection Time Receive d Time (Source) Location / / Volume Laterality Blood 03/26/2022 5:28 AM 3 5:41 PHOTOENGRAVER AM PHOTOENGRAVER Robin Noe APRN LAB BLOOD ORDERABLES Performing Organization Address City/State/ZIP Code Phon e Number [facility] Unless otherwise noted, [address] all lab tests performed by: Division of Pathology and Laboratory Medicine [address] [place] [address] C Peptide (03/26/2022 12:25 AM PHOTOENGRAVER) athologist Signature C-Peptide 2.34 1.10 - 4.40 [facility] ng/mL [facility] Specimen Anatomical Collection Method Collection Time Receive d Time (Source) Location / / Volume Laterality Blood 03/26/2022 12:25 03/26/2022 1:05 AM PHOTOENGRAVER AM PHOTOENGRAVER Paola Dill MD LAB BLOOD ORDERABLES Performing Organization Address [facility] Phon e Number [facility] Unless otherwise noted, [address] all lab tests performed by: Division of Pathology and Laboratory Medicine [address] [place] [address] EKG, 12-Lead (Portable) (03/26/2022)Only the most recent of4 resultswithin the time period is included. Specimen (Source) Anatomical Location Collection Method / Collectio n Time Received Time / Laterality Volume Narrative This result has an attachment that is no t available. Satya Rust APRN ECG ORDERABLES Performing Organization Address [facility] Phon e Number MICHAEL IECG POC UHCG (03/25/2022 1:24 AM PHOTOENGRAVER) athologist Signature POC U hCG Negative Negative POC [facility] Comment: Very dilute urine specimens may cause fa lse negative results. Suggest repeat in 48 hours with a first morning voided urine or request quantitative serum beta HCG test. Method description: The ICON 20 hCG Seru m/Urine test employs a solid phase chromatographic immunoassay technology to selectively detect elevated levels of hCG in urine with a high degree of sensitivity. POC U hCG Cont Valid POC [facility] Performing Lab [facility] POC TELCO R Comment: [facility] Clinical Lab, [address] [place] [address], [place] [address]; Lab Direct or: Marylou Olmstead MD; Waived Point of Care Testing - Luz Maria Vázquez MD Specimen Anatomical Collection Method Collection Time Receive d Time (Source) Location / / Volume Laterality Urine 03/25/2022 1:24 AM 1:24 PHOTOENGRAVER AM PHOTOENGRAVER Paola Dill MD POCT ORDERABLES - DEVICE Performing Organization Address City/[facility]/ZIP [facility] [place] POC [facility] Unless otherwise noted, [place] [address] lab tests performed by: Division of Pathology and [facility] (ABNORMAL) Urinalysis Microscopic Exam (03/25/2022 12:36 AM PHOTOENGRAVER) P athologist Signature UA WBC >182 (H) 0 - 2 /HPF [facility] Comment: Some reporting parameters within the Uri nalysis test have changed due to the implementation of new instrumentation in the [facility], allowing greater sensitivity of measurement. Urinalysis results rep orted by the [facility] using existing instrumentation, as well as Urinalysis t esting performed manually or by backup methodology at the [facility] will remain relatively unchanged. New reporting parameters and units will not be reported for all campuses. UA RBC 11 (H) 0 - 2 /HPF [facility] UA Mucous TRACE Not Seen-Trace /HPF [place] [facility] UA Bacteria NOT SEEN NOT SEEN /HPF [facility] UA Squam Epi 1+ (A) None-Occasional /HPF [facility] Specimen Anatomical Collection Method Collection Time Receive d Time (Source) Location / / Volume Laterality Urine 03/25/2022 12:36 03/25/2022 AM PHOTOENGRAVER 12:46 AM PHOTOENGRAVER Paola Dill MD LAB BLOOD ORDERABLES Performing Organization Address City/[facility]/[place]IP [facility] [place] [facility] Unless otherwise noted, [address] all lab tests performed by: Division of Pathology and Laboratory Medicine [facility] Kaylin Hopkins (ABNORMAL) Urinalysis w/Microscopic if Indicated (03/25/2022 12:36 AM PHOTOENGRAVER) [facility] Method Time Signature UA Color Yellow Straw[facility]el [facility] UA Appear Hazy (A) Clear [facility] UA Glucose 100 (A) NEG mg/dL [facility] UA Bili NEG NEG [facility] UA Ketones 80 (A) NEG mg/dL [facility] UA Spec Grav 1.024 1.003 - [place] 1.035 [facility] UA Blood Moderate (A) NEG [facility] UA pH 6.0 5.0 - 9.0 [facility] UA Protein 300 (A) NEG mg/dL [facility] UA Urobilinogen 1+ (A) NEG [facility] UA Nitrite POS (A) NEG [facility] UA Leuk Est Large (A) NEG [facility] Specimen Anatomical Collection Method Collection Time Receive d Time (Source) Location / / Volume Laterality Urine 03/25/2022 12:36 03/25/2022 AM PHOTOENGRAVER 12:46 AM PHOTOENGRAVER Paola Dill MD URINE ORDERABLES Performing Organization Address City/State/ZIP Code Phon e Number [facility] Unless otherwise noted, [place] [address] [place] all lab tests performed by: Division of Pathology and Laboratory Medicine [address] (ABNORMAL) Urine Culture (03/25/2022 12:36 AM PHOTOENGRAVER) Component Value Ref Test Analysis Performed At [facility] gist Range Method Time Signature Final Report 10 - 50,000 cfu/ml Escherichia coli [place] ... BALDEV <10,000 cfu/ml Normal site nida present. CANCER (A) [place] Path Review - The results have been review ed and electronically signed by Pathologist: [place] Urine NORMAN CAMARILLO MD #[id number] A MANNY () [facility] Organism Escherichia coli [facility] () [facility] Specimen Anatomical Collection Method Collection Time Receive d Time (Source) Location / / Volume Laterality Urine 03/25/2022 12:36 03/25/2022 1:15 AM PHOTOENGRAVER AM PHOTOENGRAVER Narrative [facility] - 3:53 PM PHOTOENGRAVER Early Sepsis Intervention Organism Antibiotic Method Susceptibility Escherichia coli *IRVIN expressed in mcg/mL MINIMUM INHIBITORY IRVIN : MINT CONCENTRATION Escherichia coli Ampicillin MINIMUM INHIBITORY >=32: Resist ant CONCENTRATION Escherichia coli Amoxicillin/Clavulanate MINIMUM INHIBITORY 16: Intermediate CONCENTRATION Escherichia coli Ampicillin/Sulbactam MINIMUM INHIBITORY >=32: R esistant CONCENTRATION Escherichia coli Piperacillin/Tazobactam MINIMUM INHIBITORY <=4: Susceptible CONCENTRATION Escherichia coli Cephalothin MINIMUM INHIBITORY 32: Resistan t CONCENTRATION Escherichia coli Cefpodoxime MINIMUM INHIBITORY <=0.25: Susc eptible CONCENTRATION Escherichia coli Cefotaxime MINIMUM INHIBITORY <=1: Suscept ible CONCENTRATION Escherichia coli Ceftazidime MINIMUM INHIBITORY <=1: Suscept ible CONCENTRATION Escherichia coli Ceftriaxone MINIMUM INHIBITORY <=1: Suscept ible CONCENTRATION Escherichia coli Cefepime MINIMUM INHIBITORY <=1: Suscept ible CONCENTRATION Escherichia coli Aztreonam MINIMUM INHIBITORY <=1: Suscept ible CONCENTRATION Escherichia coli Ertapenem MINIMUM INHIBITORY <=0.5: Susce ptible CONCENTRATION Escherichia coli Imipenem MINIMUM INHIBITORY <=0.25: Susc eptible CONCENTRATION Escherichia coli Meropenem MINIMUM INHIBITORY <=0.25: Susc eptible CONCENTRATION Escherichia coli Amikacin MINIMUM INHIBITORY <=2: Suscept ible CONCENTRATION Escherichia coli Gentamicin MINIMUM INHIBITORY <=1: Suscept ible CONCENTRATION Escherichia coli Tobramycin MINIMUM INHIBITORY <=1: Suscept ible CONCENTRATION Escherichia coli Ciprofloxacin MINIMUM INHIBITORY <=0.25: Susc eptible CONCENTRATION Escherichia coli Levofloxacin MINIMUM INHIBITORY 1: Intermedi ate CONCENTRATION Escherichia coli Nitrofurantoin MINIMUM INHIBITORY <=16: Suscep tible CONCENTRATION Escherichia coli Trimethoprim/Sulfa MINIMUM INHIBITORY >=320: Re sistant CONCENTRATION Paola Dill MD MICROBIOLOGY - GENERAL ORDER YULIANA Performing Organization Address City/[facility] Phon e Number [facility] Unless otherwise noted, [address] all lab tests performed by: Division of Pathology and Laboratory Medicine [address] Confirm ABORh (03/24/2022 11:29 PM PHOTOENGRAVER) athologist [facility] ABORh Confirm. A POS [facility] Specimen Anatomical Collection Method Collection Time Receive d Time (Source) Location / / Volume Laterality Blood 03/24/2022 11:29 03/24/2022 PM PHOTOENGRAVER 11:43 PM PHOTOENGRAVER Paola Dill MD BLOOD BANK TEST ORDERABLES Performing Organization Address [facility] Phon e Number [facility] Unless otherwise noted, [address] all lab tests performed by: Division of Pathology and Laboratory Medicine [address] (ABNORMAL) POC VBG+Lac (03/24/2022 11:18 PM PHOTOENGRAVER) athologist [facility] POC VB pH 7.39 7.31 - POC [facility] 7.41 POC VB pCO2 32 (L) 41 - 51 POC [facility] mmHg POC VB pO2 71 mmHg POC [facility] POC VB TCO2 20 (L) 24 - 29 POC [facility] mEq/L POC VB Bicarb 19 (L) 23 - 28 POC [facility] mmol/L POC VB Base Ex -5 (L) -2 - 3 POC [facility] mmol/L POC VB O2 Sat 94 % POC [facility] POC VB LAC 0.9 0.9 - 1.7 POC [facility] mmol/L Comment: Method description: The i-STAT is an ed lyzer used for in vitro quantification of various analytes in whole blood. The device uses a single disposable cartridge which contains microfabricated sensors, a calibration solution, fluidics system, and a waste chamber. Each test cartridge contains ch emically sensitive biosensors on a silicon chip that are configured to perform specific tests. The microfabricated sensors measure analyte concentration by an electrochemical assay. POC Sample Type Venous POC [facility] POC Clean Dev Yes POC [facility] Performing Lab [facility] POC TELCO R Comment: [facility] Clinical Lab, [address] [place] [address]; Lab Direct or: Marylou Olmstead MD; Waived Point of Care Testing - Luz Maria Vázquez MD Specimen Anatomical Collection Method Collection Time Receive d Time (Source) Location / / Volume Laterality Blood 03/24/2022 11:18 03/24/2022 PM PHOTOENGRAVER 11:18 PM PHOTOENGRAVER Paola Dill MD POCT ORDERABLES - DEVICE Performing Organization Address City/State/ZIP Code Phon e Number POC [facility] Unless otherwise noted, [place] [address] lab tests performed by: Division of Pathology and Laboratory Medicine [address] [place] [address] Respiratory Multiplex PCR Panel, Nasopharyngeal Swab (03/24/2022 11:10 PM PHOTOENGRAVER) Component Value Ref Range Test Analysis Performed Pathologis t Method Time At [facility] Source Not [place] MD Applicable [facility] Adenovirus Not Detected Not UT Detected [facility] Coronavirus 229E Not Detected Not [place] Detected [facility] Coronavirus HKU1 Not Detected Not UT Detected [facility] Coronavirus NL63 Not Detected Not [place] Detected [facility] Coronavirus OC43 Not Detected Not [place] Detected [facility] COVID19 Not Detected Not UT (SARS-CoV-2) Detected [facility] Human Not Detected Not [place] Metapneumovirus Detected [facility] Human Not Detected Not [place] MD Rhinovirus/Enterov Detected [facility] Influenza A Not Detected Not [place] MD Detected [facility] Influenza A H1 Not Detected Not [place] MD Detected [facility] Influenza A H1 Not Detected Not [place] MD 2009 Detected [facility] Influenza A H3 Not Detected Not [place] MD Detected [facility] Influenza B Not Detected Not [place] MD Detected [facility] Parainfluenza 1 Not Detected Not [place] MD Detected [facility] Parainfluenza 2 Not Detected Not [place] MD Detected [facility] Parainfluenza 3 Not Detected Not [place] MD Detected [facility] Parainfluenza 4 Not Detected Not [place] MD Detected [facility] Respiratory Not Detected Not [facility] Syncytial Virus Detected [facility] Bordetella Not Detected Not [facility] Parapertussis Detected [facility] Bordetella Not Detected Not [facility] pertussis Detected [facility] Chlamydiophila Not Detected Not [facility] pneumoniae Detected [facility] Mycoplasma Not Detected Not [facility] pneumoniae Detected [facility] Specimen (Source) Anatomical Collection Method Collection Time Re ceived Time Location / / Volume Laterality Nasopharyngeal Swab 03/24/2022 11:10 02/25 PM PHOTOENGRAVER 11:26 PM PHOTOENGRAVER Narrative [facility] - 12:28 AM PHOTOENGRAVER Has patient had a positive for COVID-19 result in the last 3 months?->No The BioFire RP2.1 is a real-time, nested multiplexed polymerase chain reaction test designed to simultaneously identify nucleic acids from 22 different viruses and bacteria associated with respiratory tract infect ion, including SARS-CoV-2, from a single nasopharyngeal swab (UPPER EXTREMITY SURGEON) specimen obtained from individuals suspected of respiratory tract infections, including COVID-19. Results must be interpreted within the c ontext of all relevant clinical and laboratory findings and should not form the sole basis for a diagnosis or treatment decision. Positive results do not rule out coninfection with other organisms. Nega tive results in the setting of a respiratory illness may be due to infection with pathogens that are not detected by this panel, or a lower respiratory tract infection that may not be detected by an UPPER EXTREMITY SURGEON specimen. Internal controls are used to monitor al l stages of the test process and assess for possible amplification inhibitors. If inhibition is detected, testing is repeated and if inhibition is confirmed the s pecimen is resulted as "Invalid". When a n "Invalid" result occurs, it is recommended to wait 3 days before submitting a new specimen for testing if clinically indicated. This assay has been approved by the FDA for use in laboratories that have been CLIA-certified to perform moderate-complexity and high-complexity tests. The Microbiology Laboratory at [facility], CLIA Accreditation #[id number] and CAP Accreditation #[id number], verified the per formance characteristics of this assay. Microbiology Laboratory at [facility] performs the assay using the [employer] System. Paola Dill MD MICROBIOLOGY - GENERAL ORDER YULIANA Performing Organization Address City/[facility] Phon e Number [facility] Unless otherwise noted, [address] all lab tests performed by: Division of Pathology and Laboratory Medicine [address] [place] [address] (ABNORMAL) L[facility] (03/24/2022 11:10 PM PHOTOENGRAVER) P athologist Signature LDH 288 (H) 135 - 214 [facility] Comment: Results greater than 1651 U/L m ay not be reliable due to matrix effect with extended dilution as it exceeds the manu facturer's recommended limit. Caution should be exercised when interpreting such valu es and done in conjunction with clinical context. Specimen Anatomical Collection Method Collection Time Receive d Time (Source) Location / / Volume Laterality Blood 03/24/2022 11:10 03/24/2022 PM PHOTOENGRAVER 11:16 PM PHOTOENGRAVER Paola Dill MD LAB BLOOD ORDERABLES Performing Organization Address [facility] Phon e Number [facility] Unless otherwise noted, [address] all lab tests performed by: Division of Pathology and Laboratory Medicine [address] [place] [address] Abdomen and Pelvis (03/24/2022 4:15 PM PHOTOENGRAVER) Specimen (Source) Anatomical Location Collection Method / Collectio n Time Received Time / Laterality Volume Narrative Systemgenerated, Documentation - 023 4:15 PM PHOTOENGRAVER Study acquired at another institution. For comparison only. No [facility] originated interpretation requested or a vailable. Lolita Ann MD IMG OUTSIDE IMAGE ORDERABLES MRI Thoracic Spine with and without Contrast (03/14/2022 6:31 PM PHOTOENGRAVER) Anatomical Region Laterality Modality T-spine, Spine Magnetic Resonance Specimen (Source) Anatomical Collection Method Collection Time Re ceived Time Location / / Volume Laterality 03/14/2022 7:24 PM PHOTOENGRAVER Impressions 03/14/2022 7:37 PM PHOTOENGRAVER A tiny focus of low T1 signal in the T1 vertebral body and a small focus of low T1 signal in the T8 vertebral body are indeterminate and may represent hemangiomas. Follow-up MRI can be obtained for further evaluation. Narrative 03/14/2022 7:37 PM PHOTOENGRAVER FULL RESULT: Examination: MRI THORACIC SPINE W WO CON TRAST, 03/14/2022 6:31 PM. 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 Findings: The site of the small lucency at the anterior/superior endplate of T1 seen on the prior chest CT obtained on 10/11/2020 demonstrates no correlate on MRI and likely represented a normal variation of the cortex on the CT. A tiny focus of low T1 signal in the ant erior/superior aspect of the T1 vertebral body (not involving the endplate) measures 0.2 x 0.4 cm on series 6 image is "between cuts" on the axial image and demonstrates no indication of enhancement. A small focus of low T1 signal is also v isualized in the T8 vertebral body, measuring 0.4 x 0.8 cm on series 6 image 8. It also "between cuts" on the axial images and demonstrates no indication of enhancement and may represent a hemangioma. No epidural or leptomeningeal disease is detected. No vertebral compression fractures. The spinal cord is normal in signal intensity and morphology. Procedure Note Raissa Ribera MD - 03/14/2022Forma tting of this note might be different from the original. FULL RESULT: Examination: MRI THORACIC SPINE W WO CON TRAST, 03/14/2022 6:31 PM. 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 Findings: The site of the small lucency at the anterior/superior endplate of T1 seen on the prior chest CT obtained on 10/11/2020 demonstrates no correlate on MRI and likely represented a normal variation of the cortex on the CT. A tiny focus of low T1 signal in the ant erior/superior aspect of the T1 vertebral body (not involving the endplate) measures 0.2 x 0.4 cm on series 6 image is "between cuts" on the axial image and demonstrates no indication of enhancement. A small focus of low T1 signal is also v isualized in the T8 vertebral body, measuring 0.4 x 0.8 cm on series 6 image 8. It also "between cuts" on the axial images and demonstrates no indication of enhancement and may represent a hemangioma. No epidural or leptomeningeal disease is detected. No vertebral compression fractures. The spinal cord is normal in signal intensity and morphology. IMPRESSION: A tiny focus of low T1 signal in the T1 vertebral body and a small focus of low T1 signal in the T8 vertebral body are indeterminate and may represent hemangiomas. Follow-up MRI can be obtained for further evaluation. Lolita Ann MD IMG MRI ORDERABLES COVID-19 (SARS-CoV-2) PCR-Asymptomatic (03/13/2022 2:16 PM PHOTOENGRAVER) [facility] Method Time Signature COVID19 (SARS Not Detected Not Detected [place] CoV-2) [facility] Comment: This test is a qualitative reverse-trans criptase polymerase chain reaction (RT- PCR) developed for the [employer]ED 6800 system and intended for qualitative detection of SARS CoV-2 RNA in nasopharyngeal a nd oropharyngeal swab specimens collecte d from any individuals, including those suspected o f COVID-19 by their healthcare provider, and those without symptoms or other reasons to suspect COVID-19. A fact sheet for patients provided by the maritime officer ( [employer]) can be rev iewed at: https://www.fda.gov/media/564810/claudy mixon. A fact sheet for Health Care providers is provided by the maritime officer ([employer]) and can be reviewed at: https://www.fda.gov/media/320120/download Results must be interpreted within the c ontext of all relevant clinical and laboratory findings and should not form the sole basis for a diagnosis or treatment decision. Positive results do not rule out bacterial infection or co- infection with other viruses. Negative results do not rule ou t SARS-CoV-2 and must be combined with clinical observations, patient history, and/or epidemiological information. "Presumptive Positive" results are due t o partial amplification of SARS-CoV-2 targets and indicates low amounts of virus present in the specimen at or near the limit of detection. Regardless, individuals with "Presumptive Positive" results should be managed per institutional guidelines as individuals positive for SARS-CoV-2 virus, including use of appropriate infection control protocols. Internal controls are included to assess for possible amplification inhibitors. If inhibition is detected, testing is repeated and if inhibition is confirmed the specimen is resulted as "Invalid". When an "Invalid" result occurs, it is recomm ended to wait 3 days before submitting a new spec imen for testing if clinically indicated. This assay has been approved by the FDA for use only under Emergency Use Authorization (EUA) in laboratories that have been CLIA-certified to perform moderate-complexity and high-complexity tests. The performance characteristics of this assay were verified by the Microbiology Laboratory at [facility], CLIA Accreditation #: [id number] and CAP Accreditation #: [id number]. COVID19 SARS Source HANDLE SANDER OPERATOR Swab [place] MD [facility]OP[place] [facility] COVID19 SARS Indication Pre-Out of OR Procedure [facility] Specimen (Source) Anatomical Collection Method Collection Time Re ceived Time Location / / Volume Laterality Nasopharyngeal Swab 03/13/2022 2:16 03/13 PM PHOTOENGRAVER 3:45 PM PHOTOENGRAVER Lolita Ann MD MICROBIOLOGY - GENERAL ORDER YULIANA Performing Organization Address City/State/ZIP Code Phon e Number [facility] Unless otherwise noted, [place] [address] [place] all lab tests performed by: Division of Pathology and Laboratory Medicine [address] [place] [address] US HEAD NECK SOFT TISSUE (03/13/2022 2:05 PM PHOTOENGRAVER) Anatomical Region Laterality Modality Head, Neck Ultrasound Specimen (Source) Anatomical Collection Method Collection Time Re ceived Time Location / / Volume Laterality 03/13/2022 2:01 PM PHOTOENGRAVER Impressions 03/13/2022 3:41 PM PHOTOENGRAVER 1. Majority of the central compartment nodules have the appearance of benign lymph nodes, and can be followed sonographically. 2. No definite lateral compartment lym phadenopathy. Mildly prominent nodes are seen in the superior neck in a symmetric fashion, to be followed. Narrative 03/13/2022 3:41 PM PHOTOENGRAVER FULL RESULT: Examination: US HEAD NECK SOFT TISSUE on 03/13/2022 2:05 PM Clinical History: Malignant neoplasm of thyroid gland Indication: Thyroid Cancer Comparison: None Technique: Real-time ultrasound examinat ion of the neck soft tissues was performed. FINDINGS: Right Thyroid Bed: Benign-appearing node posterior to the common carotid artery measures 4 x 4 by 5 mm without abnormal vascularity. Left Thyroid Bed: Benign-appearing node measures 2 x 1 x 3 mm with an adjacent 3 x 1 x 6 mm benign-appearing node. There is a third benign node measuring 5 x 2 x 5 mm. Nonspecific avascular hypoechoic n odule in the suprasternal region measure s 4 x 3 x 7 mm. Suprasternal and Superior Mediastinal: C lear. Right Lateral Neck: No adenopathy.. Left Lateral Neck: No adenopathy. Submental to Cricoid: Clear. Procedure Note Ramesh Izquierdo MD - 03/13/2022Formattin g of this note might be different from the original. FULL RESULT: Examination: US HEAD NECK SOFT TISSUE on 03/13/2022 2:05 PM Clinical History: Malignant neoplasm of thyroid gland Indication: Thyroid Cancer Comparison: None Technique: Real-time ultrasound examinat ion of the neck soft tissues was performed. FINDINGS: Right Thyroid Bed: Benign-appearing node posterior to the common carotid artery measures 4 x 4 by 5 mm without abnormal vascularity. Left Thyroid Bed: Benign-appearing node measures 2 x 1 x 3 mm with an adjacent 3 x 1 x 6 mm benign-appearing node. There is a third benign node measuring 5 x 2 x 5 mm. Nonspecific avascular hypoechoic nodule in the suprasternal region measures 4 x 3 x 7 m m. Suprasternal and Superior Mediastinal: C lear. Right Lateral Neck: No adenopathy.. Left Lateral Neck: No adenopathy. Submental to Cricoid: Clear. IMPRESSION: 1. Majority of the central compartment n odules have the appearance of benign lymph nodes, and can be followed sonographically. 2. No definite lateral compartment lymph adenopathy. Mildly prominent nodes are seen in the superior neck in a symmetric fashion, to be followed. Lolita Ann MD IMG US ORDERABLES PTH Intact (03/13/2022 12:30 PM PHOTOENGRAVER) athologist Signature PTH Intact 21.0 15.0 - 65.0 [facility] pg/mL [facility] Specimen Anatomical Collection Method Collection Time Receive d Time (Source) Location / / Volume Laterality Blood 03/13/2022 12:30 03/13/2022 PM PHOTOENGRAVER 12:55 PM PHOTOENGRAVER Lolita Ann MD LAB BLOOD ORDERABLES Performing Organization Address City/[facility]/ZIP Code Phon e Number [facility] CANCER Unless otherwise noted, [address] all lab tests performed by: Division of Pathology and Laboratory Medicine [address] [place] [address] Sandeep Hepatitis C Virus Ab (03/13/2022 12:30 PM PHOTOENGRAVER) [facility] gist Method Time Signature HCVAb. Non Reactive Non Reactive [facility] Comment: Antibody detection in the immunocompromi sed and immunosuppressed population may be delayed or absent entirely. Therefore serial testing, correlation with other clinical findings, and supplemental testin g (if available) should be taken into co nsideration when interpreting the results. Specimen Anatomical Collection Method Collection Time Receive d Time (Source) Location / / Volume Laterality Blood 03/13/2022 12:30 03/13/2022 1:10 PM PHOTOENGRAVER PM PHOTOENGRAVER Lolita Ann MD LAB BLOOD ORDERABLES Performing Organization Address City/[facility]/ZIP Code Phon e Number [facility] CANCER Unless otherwise noted, [address] all lab tests performed by: Division of Pathology and Laboratory Medicine [facility] Kaylinbecky Hopkins (ABNORMAL) Vitamin D 25OH (03/13/2022 12:30 PM PHOTOENGRAVER) athologist Signature Vitamin D 25 21 (L) 30 - 100 [facility] [place] ng/mL [facility] Comment: Reference Range: Deficiency: <10 ng/mL Insufficiency: 10-29 ng/mL Sufficiency: 30-100 ng/mL Potential toxicity: >100 ng/mL Specimen Anatomical Collection Method Collection Time Receive d Time (Source) Location / / Volume Laterality Blood 03/13/2022 12:30 03/13/2022 PM PHOTOENGRAVER 12:55 PM PHOTOENGRAVER Lolita Ann MD LAB BLOOD ORDERABLES Performing Organization Address City/[facility]/ZIP Code Phon e Number [facility] CANCER Unless otherwise noted, [address] all lab tests performed by: Division of Pathology and Laboratory Medicine [address] [place] [address] Thyroglobulin (03/13/2022 12:30 PM PHOTOENGRAVER) athologist Signature Thyroglobulin 2.98 1.59 - [facility] 50.03 ng/mL [facility] Comment: Reference range in athyrotic patients is <0.1 ng/mL. Due to varying antigen specificity, affi nity and avidity of capture and conjugate antibodies in their epitope reactions, some thyroglobulin samples may not dilute linearly when results exceed 450 ng/mL. Thyroglob Ab <0.9 <=3.9 IU/ml [facility] Comment: Due to varying antigen specific ity, affinity and avidity of capture and conjugate antibodies in their epitope re actions, some thyroglobulin antibody samples may not dilute linearly when results exc eed 1650 IU/mL. Specimen Anatomical Collection Method Collection Time Receive d Time (Source) Location / / Volume Laterality Blood 03/13/2022 12:30 03/13/2022 PM PHOTOENGRAVER 12:55 PM PHOTOENGRAVER Lolita Ann MD LAB BLOOD ORDERABLES Performing Organization Address City/[facility]/ZIP Code Phon e Number [facility] CANCER Unless otherwise noted, [address] all lab tests performed by: Division of Pathology and Laboratory Medicine [address] [place] [address] [place]grad[place] (ABNORMAL) TSH (03/13/2022 12:30 PM PHOTOENGRAVER) athologist Signature TSH 0.01 (L) 0.27 - 4.20 [facility] mcunit/mL [facility] Specimen Anatomical Collection Method Collection Time Receive d Time (Source) Location / / Volume Laterality Blood 03/13/2022 12:30 03/13/2022 PM PHOTOENGRAVER 12:55 PM PHOTOENGRAVER Lolita Ann MD LAB BLOOD ORDERABLES Performing Organization Address City/State/ZIP Code Phon e Number [facility] CANCER Unless otherwise noted, [address] all lab tests performed by: Division of Pathology and Laboratory Medicine [address] [place] [address] OSI US Thyroid (01/30/2022 1:11 PM PHOTOENGRAVER) Specimen (Source) Anatomical Location Collection Method / Collectio n Time Received Time / Laterality Volume Narrative Systemgenerated, Documentation - 022 1:12 PM PHOTOENGRAVER Study acquired at another institution. For comparison only. No MD Santiago originated interpretation requested or a vailable. Lolita Ann MD IMG OUTSIDE IMAGE ORDERABLES after 09/02/2021 Insurance Payer Benefit Plan / Subscriber ID Effective Dates Phone Addre ss Type Group [employer] [place] PPO POS [id number] 2017-Present [id number] [place] [address] Aysha,Veronica Personal/Famil Self 1995 [id number] (Home) [address] [address] Aysha,Veronica Personal/Famil Self 1995 [id number] (Home) [address] [address] Advance Directives Code Status Date Activated Date Inactivated Comments Full Code 03/25/2022 7:21 AM 04/02/2022 4:10 PM Care Teams Securities Trader Relationship Specialty Start Date End Date Lolita Ann MD PCP - General Endocrinology 04/20/[address] [place] [id number]
--- OUTSIDE RECORDS SUMMARY | 2022-09-02 20:46 | XMS REPORT | Continuity of Care Document ---
:1995 Author Organization [facility] t Address [address] [facility] [address] [place] [address] Care Team Providers Name Role Phone Frances HENDERSON, Conrad Primary Care Physician [phone] Kang HENDERSON, Megan Jorge Attending Clinician Fahad RN, Leroy Attending Clinician Darrian PANDA, Shereen Attending Clinician Unavailable Kamla HENDERSON, Inge Mahmood Attending Clinician Unavailable Seth HENDERSON, Johnson Attending Clinician Aniyah HENDERSON, Paola Moore Attending Clinician Hanna HENDERSON, Bud Attending Clinician Magdiel Olmstead MD Attending Clinician Kiara Shah MD Attending Clinician [phone] Renard Carpenter MD, Satya Lambert Attending Clinician [phone] Dafne Zhang Attending Clinician Ry Noe APRN Attending Clinician KIARA SHAH Attending Clinician Unavailable MAGDIEL OLMSTEAD Attending Clinician Unavailable Minerva Ludwig MA Attending Clinician Unavailable Alfred HENDERSON, Gary Hernandez Attending Clinician Sky HENDERSON, Lindy Jorge Attending Clinician Holman Slim HENDERSON Attending Clinician JOHNSON ANN Attending Clinician Unavailable BUD GOLDMAN Admitting Clinician Unavailable Payers Payer Name Policy Type Policy Number Effective Date Expiration Date S ginger Problems Condition Condition Condition Status Onset Resolution Last Treating Co mments Source Name Details Category Date Date Treatment Clinician Date 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 at[place] athy 00 [facility] Acute Acute Disease Active Univers congestive congestive 2-06 it y of heart heart 00:00: [place] failure [facility] Acute Acute Disease Active Univers respirator respirator 1-31 it y [place] distress [place] 00:[place] syndrome syndrome 00 MD [facility] Pyelonephr Pyelonephr Disease Active U nivers itis itis 1-30 ity of 00:00: [place] 00 MD [facility] Current Current Disease Active Univers use of use of 1-30 ity of insulin insulin 00:00: [place] 00 MD [facility] Type 2 Type 2 Disease Active Univers diabetes diabetes 1-18 ity of mellitus mellitus 00:00: [place] with with 00 hyperglyce hyperglyce An dergopal [facility] Metastasis Metastasis Disease Active 2020-0 U nivers to head to head 3-18 ity of and neck and neck 00:00: [place] lymph node lymph node 00 MD [facility] Pulmonary Pulmonary Disease Active 2019-0 Uni vers nodules nodules 3-18 ity of 00:00: [place] 00 MD [facility] Postoperat Postoperat Disease Active 2020-0 U nivers bryon bryon 3-18 ity of hypothyroi hypothyroi [place] dism dism 00 MD [facility] 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 Family History Family Member Diagnosis Comments Start Date Stop Date Source Natural father Hyperlipidemia [facility] Maternal aunt Diabetes [facility] Maternal aunt Hypertension [facility] Maternal aunt Hyperlipidemia Univers ity of [facility] Maternal grandmother Diabetes Univ ersity [facility] Natural mother Hypertension [facility] Paternal grandmother Diabetes [facility] ers[facility] Paternal grandmother Hypertension [facility] Social History Social Habit Start Date Stop Date Quantity Comments Source Exposure to 2022-07-16 2022-07-26 Not sure [facility]-CoV-2 00:00:00 10:36:00 Toby horta (event) [facility] Alcohol intake 2022-07-15 2022-07-15 Current drinker of Un iversity of 00:00:00 00:00:00 alcohol (finding) [facility] Tobacco use and 2022-03-13 2022-03-13 Smokeless tobacco Un iversity of exposure 00:00:00 00:00:00 non-user Toby horta [facility] Alcohol Comment 2022-03-13 2022-03-13 occasionally as Univ ersity of 00:00:00 00:00:00 reported by [place] MD Hardeep soares patient. [facility] Center Sex Assigned At [birth year] F Universit y of 00:00:00 00:00:00 Toby horta [facility] Smoking Status Start Date Stop Date Source Never smoked tobacco [facility] Medications Ordered Filled Start Stop Current Ordering Indication Dosage Frequency Signature Comments Components Source Medication Medication Date Date Medication? Clinician (SIG) Name Name FERROUS Yes 28mg Take 28 mg Univ ers SULFATE 5-22 by mouth ity of ORAL 13:57: daily. [place] Gifty mireles [facility] FERROUS 2022-0 Yes 28mg Take 28 mg Univ ers SULFATE 5-22 by mouth ity of ORAL 13:57: daily. [place] Gifty mireles [facility] FERROUS 2022-0 Yes 28mg Take 28 mg Univ ers SULFATE 5-22 by mouth ity of ORAL 13:57: daily. [place] [address] [facility] furosemide Yes Stress 40mg Take 1 Uni vers (LASIX) 40 2-08 induced tablet (40 ity of mg tablet 00:00: cardiomyopa mg) by [address] mouth daily. [facility] furosemide Yes Stress 40mg Take 1 Uni vers (LASIX) 40 2-08 induced tablet (40 ity of mg tablet 00:00: cardiomyopa mg) by [address] mouth daily. [facility] furosemide Yes Stress 40mg Take 1 Uni vers (LASIX) 40 2-08 induced tablet (40 ity of mg tablet 00:00: cardiomyopa mg) by [address] mouth daily. [facility] furosemide Yes Stress 40mg Take 1 Uni vers (LASIX) 40 2-08 induced tablet (40 ity of mg tablet 00:00: cardiomyopa mg) by [address] mouth daily. [facility] furosemide Yes Stress 40mg Take 1 Uni vers (LASIX) 40 2-08 induced tablet (40 ity of mg tablet 00:00: cardiomyopa mg) by [address] mouth daily. [facility] furosemide Yes Stress 40mg Take 1 Uni vers (LASIX) 40 2-08 induced tablet (40 ity of mg tablet 00:00: cardiomyopa mg) by [address] daily[address] [facility] furosemide Yes Stress 40mg Take 1 Uni vers (LASIX) 40 2-08 induced tablet (40 ity of mg tablet 00:00: cardiomyopa mg) by [address] mouth daily. [facility] furosemide Yes Stress 40mg Take 1 Uni vers (LASIX) 40 2-08 induced tablet (40 ity of mg tablet 00:00: cardiomyopa mg) by [address] mouth daily. [facility] furosemide Yes Stress 40mg Take 1 Uni vers (LASIX) 40 2-08 induced tablet (40 ity of mg tablet 00:00: cardiomyopa mg) by [address] mouth daily. [facility] FERROUS Yes 28mg Take 28 mg Univ ers SULFATE 2-07 by mouth ity of ORAL 14:05: daily. [place] [address] MD Rodney mireles [facility] FERROUS Yes 28mg Take 28 mg Univ ers SULFATE 2-07 by mouth ity of ORAL 14:05: daily. [place] [address] MD Rodnye mireles [facility] FERROUS Yes 28mg Take 28 mg Univ ers SULFATE 2-07 by mouth ity of ORAL 14:05: daily. [place] [address] MD Rondey mireles [facility] FERROUS Yes 28mg Take 28 mg Univ ers SULFATE 2-07 by mouth ity of ORAL 14:05: daily. [place] [address] MD Rodney mireles [facility] FERROUS Yes 28mg Take 28 mg Univ ers SULFATE 2-07 by mouth ity of ORAL 14:05: daily. [place] [address] MD Rodney mireles [facility] FERROUS Yes 28mg Take 28 mg Univ ers SULFATE 2-07 by mouth ity of ORAL 14:05: daily. [place] [address] [facility] metoprolol Yes Stress 12.5mg Take 0.5 Univers succinate 2-07 induced tablets ity of (TOPROL XL) 00:00: cardiomyopa (12.5 mg) [place] 25 mg 24 hr 00 thy by mouth tablet twice Anderso daily. [facility] sacubitriL- Yes Stress 1{tbl} Take 1 Univers valsartan 2-07 induced tablet by it y of (ENTRESTO) 00:00: cardiomyopa mouth [place] 24 mg-26 mg 00 thy every 12 MD tab per (twelve) Anderso tablet hours. [facility] famotidine Yes Papillary 20mg Take 1 Univers (PEPCID) 20 2-07 thyroid tablet (20 ity of mg tablet 00:00: carcinoma mg[place] by [place] 00 mouth twice [place] daily. [facility] insulin Yes Type 2 10U Inject 10 Uni vers degludec 2-07 diabetes Units ity of 100 unit/mL 00:00: mellitus under the [place] (3 mL) 00 with skin insulin pen hyperglycem daily. [facility] ia Skip the n dose if Cancer the Center glucose is less than 100 mg/dL metFORMIN Yes Type 2 500mg Take 1 Uni vers (GLUCOPHAGE 2-07 diabetes tablet it y of -XR) 500 mg 00:00: mellitus (500 mg) [place] 24 hr 00 with by mouth MD tablet hyperglycem daily with Anderso ia breakfast. n [facility] insulin Yes Type 2 5U Inject Univer s lispro 2-07 diabetes 5-15 Units ity of (HumaLOG 00:00: mellitus under the [place] KWIKPEN) 00 with skin 3 MD 100 unit/mL hyperglycem (three) Anderso insulin pen ia times a n day. Take Cancer before Center meals as per the instructio ns provided. metoprolol Yes Stress 12.5mg Take 0.5 Univers succinate 2-07 induced tablets ity of (TOPROL XL) 00:00: cardiomyopa (12.5 mg) [place] 25 mg 24 hr 00 thy by mouth MD tablet twice Anderso daily. n [facility] sacubitriL- Yes Stress 1{tbl} Take 1 Univers valsartan 2-07 induced tablet by it y of (ENTRESTO) 00:00: cardiomyopa mouth [place] 24 mg-26 mg 00 thy every 12 MD tab per (twelve) Anderso tablet hours. n [facility] famotidine Yes Papillary 20mg Take 1 Univers (PEPCID) 20 2-07 thyroid tablet (20 ity of mg tablet 00:00: carcinoma mg) by [place] 00 mouth MD twice Anderso daily. n [facility] insulin Yes Type 2 10U Inject 10 Uni vers degludec 2-07 diabetes Units ity of 100 unit/mL 00:00: mellitus under the [place] (3 mL) 00 with skin MD insulin pen hyperglycem daily. [place] ia Skip the n dose if Cancer the Center glucose is less than 100 mg/dL metFORMIN Yes Type 2 500mg Take 1 Uni vers (GLUCOPHAGE 2-07 diabetes tablet it y of -XR) 500 mg 00:00: mellitus (500 mg) [place] 24 hr 00 with by mouth MD tablet hyperglycem daily with Anderso ia breakfast. n [facility] insulin Yes Type 2 5U Inject Univer s lispro 2-07 diabetes 5-15 Units ity of (HumaLOG 00:00: mellitus under the [place] KWIKPEN) 00 with skin 3 MD 100 unit/mL hyperglycem (three) Anderso insulin pen ia times a n day. Take Cancer before Center meals as per the instructio ns provided. metoprolol Yes Stress 12.5mg Take 0.5 Univers succinate 2-07 induced tablets ity of (TOPROL XL) 00:00: cardiomyopa (12.5 mg) [place] 25 mg 24 hr 00 thy by mouth MD tablet twice Anderso daily. n [facility] sacubitriL- Yes Stress 1{tbl} Take 1 Univers valsartan 2-07 induced tablet by it y of (ENTRESTO) 00:00: cardiomyopa mouth [place] 24 mg-26 mg 00 thy every 12 MD tab per (twelve) Anderso tablet hours. n [facility] famotidine Yes Papillary 20mg Take 1 Univers (PEPCID) 20 2-07 thyroid tablet (20 ity of mg tablet 00:00: carcinoma mg) by [place] 00 mouth MD twice Anderso daily. n [facility] insulin Yes Type 2 10U Inject 10 Uni vers degludec 2-07 diabetes Units ity of 100 unit/mL 00:00: mellitus under the [place] (3 mL) 00 with skin MD insulin pen hyperglycem daily. [place] ia Skip the n dose if Cancer the Center glucose is less than 100 mg/dL metFORMIN Yes Type 2 500mg Take 1 Uni vers (GLUCOPHAGE 2-07 diabetes tablet it y of -XR) 500 mg 00:00: mellitus (500 mg) [place] 24 hr 00 with by mouth MD tablet hyperglycem daily with Anderso ia breakfast. n [facility] insulin Yes Type 2 5U Inject Univer s lispro 2-07 diabetes 5-15 Units ity of (HumaLOG 00:00: mellitus under the [place] KWIKPEN) 00 with skin 3 MD 100 unit/mL hyperglycem (three) Anderso insulin pen ia times a n day. Take Cancer before Center meals as per the instructio ns provided. metoprolol Yes Stress 12.5mg Take 0.5 Univers succinate 2-07 induced tablets ity of (TOPROL XL) 00:00: cardiomyopa (12.5 mg) [place] 25 mg 24 hr 00 thy by mouth MD tablet twice Anderso daily. n [facility] sacubitriL- Yes Stress 1{tbl} Take 1 Univers valsartan 2-07 induced tablet by it y of (ENTRESTO) 00:00: cardiomyopa mouth [place] 24 mg-26 mg 00 thy every 12 MD tab per (twelve) Anderso tablet hours. n [facility] famotidine Yes Papillary 20mg Take 1 Univers (PEPCID) 20 2-07 thyroid tablet (20 ity of mg tablet 00:00: carcinoma mg) by [place] mouth MD twice Anderso daily. n [facility] insulin Yes Type 2 10U Inject 10 Uni vers degludec 2-07 diabetes Units ity of 100 unit/mL 00:00: mellitus under the [place] (3 mL) 00 with skin MD insulin pen hyperglycem daily. [place] ia Skip the n dose if Cancer the Center glucose is less than 100 mg/dL metFORMIN Yes Type 2 500mg Take 1 Uni vers (GLUCOPHAGE 2-07 diabetes tablet it y of -XR) 500 mg 00:00: mellitus (500 mg) [place] 24 hr 00 with by mouth MD tablet hyperglycem daily with Anderso ia breakfast. n [facility] insulin Yes Type 2 5U Inject Univer s lispro 2-07 diabetes 5-15 Units ity of (HumaLOG 00:00: mellitus under the [place] KWIKPEN) 00 with skin 3 MD 100 unit/mL hyperglycem (three) Anderso insulin pen ia times a n day. Take Cancer before Center meals as per the instructio ns provided. metoprolol Yes Stress 12.5mg Take 0.5 Univers succinate 2-07 induced tablets ity of (TOPROL XL) 00:00: cardiomyopa (12.5 mg) [place] 25 mg 24 hr 00 thy by mouth MD tablet twice Anderso daily. n [facility] sacubitriL- Yes Stress 1{tbl} Take 1 Univers valsartan 2-07 induced tablet by it y of (ENTRESTO) 00:00: cardiomyopa mouth [place] 24 mg-26 mg 00 thy every 12 MD tab per (twelve) Anderso tablet hours. n [facility] famotidine Yes Papillary 20mg Take 1 Univers (PEPCID) 20 2-07 thyroid tablet (20 ity of mg tablet 00:00: carcinoma mg) by [place] mouth MD twice Anderso daily. n [facility] Center insulin Yes Type 2 10U Inject 10 Uni vers degludec 2-07 diabetes Units ity of 100 unit/mL 00:00: mellitus under the [place] (3 mL) 00 with skin MD insulin pen hyperglycem daily. Anders[place] ia Skip the n dose if Cancer the Center glucose is less than 100 mg/dL metFORMIN Yes Type 2 500mg Take 1 Uni vers (GLUCOPHAGE 2-07 diabetes tablet it y of -XR) 500 mg 00:00: mellitus (500 mg) [place] 24 hr 00 with by mouth MD tablet hyperglycem daily with Anderso ia breakfast. n [facility] insulin Yes Type 2 5U Inject Univer s lispro 2-07 diabetes 5-15 Units ity of (HumaLOG 00:00: mellitus under the [place] KWIKPEN) 00 with skin 3 MD 100 unit/mL hyperglycem (three) Anderso insulin pen ia times a n day. Take Cancer before Center meals as per the instructio ns provided. metoprolol Yes Stress 12.5mg Take 0.5 Univers succinate 2-07 induced tablets ity of (TOPROL XL) 00:00: cardiomyopa (12.5 mg) [place] 25 mg 24 hr 00 thy by mouth MD tablet twice Anderso daily. n [facility] sacubitriL- Yes Stress 1{tbl} Take 1 Univers valsartan 2-07 induced tablet by it y of (ENTRESTO) 00:00: cardiomyopa mouth [place] 24 mg-26 mg 00 thy every 12 MD tab per (twelve) Anderso tablet hours. n [facility] famotidine Yes Papillary 20mg Take 1 Univers (PEPCID) 20 2-07 thyroid tablet (20 ity of mg tablet 00:00: carcinoma mg) by [place] 00 mouth MD twice Anderso daily. n [facility] insulin Yes Type 2 10U Inject 10 Uni vers degludec 2-07 diabetes Units ity of 100 unit/mL 00:00: mellitus under the [place] (3 mL) 00 with skin MD insulin pen hyperglycem daily. [place] ia Skip the n dose if Cancer the Center glucose is less than 100 mg/dL metFORMIN Yes Type 2 500mg Take 1 Uni vers (GLUCOPHAGE 2-07 diabetes tablet it y of -XR) 500 mg 00:00: mellitus (500 mg) [place] 24 hr 00 with by mouth MD tablet hyperglycem daily with Anderso ia breakfast. n [facility] insulin Yes Type 2 5U Inject Univer s lispro 2-07 diabetes 5-15 Units ity of (HumaLOG 00:00: mellitus under the [place] KWIKPEN) 00 with skin 3 MD 100 unit/mL hyperglycem (three) Anderso insulin pen ia times a n day. Take Cancer before Center meals as per the instructio ns provided. metoprolol Yes Stress 12.5mg Take 0.5 Univers succinate 2-07 induced tablets ity of (TOPROL XL) 00:00: cardiomyopa (12.5 mg) [place] 25 mg 24 hr 00 thy by mouth MD tablet twice Anderso daily. n [facility] sacubitriL- Yes Stress 1{tbl} Take 1 Univers valsartan 2-07 induced tablet by it y of (ENTRESTO) 00:00: cardiomyopa mouth [place] 24 mg-26 mg 00 thy every 12 MD tab per (twelve) Anderso tablet hours. n [facility] famotidine Yes Papillary 20mg Take 1 Univers (PEPCID) 20 2-07 thyroid tablet (20 ity of mg tablet 00:00: carcinoma mg) by [place] 00 mouth MD twice Anderso daily. n [facility] insulin Yes Type 2 10U Inject 10 Uni vers degludec 2-07 diabetes Units ity of 100 unit/mL 00:00: mellitus under the [place] (3 mL) 00 with skin MD insulin pen hyperglycem daily. [place] ia Skip the n dose if Cancer the Center glucose is less than 100 mg/dL metFORMIN Yes Type 2 500mg Take 1 Uni vers (GLUCOPHAGE 2-07 diabetes tablet it y of -XR) 500 mg 00:00: mellitus (500 mg) [place] 24 hr 00 with by mouth MD tablet hyperglycem daily with Anderso ia breakfast. n [facility] insulin Yes Type 2 5U Inject Univer s lispro 2-07 diabetes 5-15 Units ity of (HumaLOG 00:00: mellitus under the [place] KWIKPEN) 00 with skin 3 MD 100 unit/mL hyperglycem (three) Anderso insulin pen ia times a n day. Take Cancer before Center meals as per the instructio ns provided. metoprolol Yes Stress 12.5mg Take 0.5 Univers succinate 2-07 induced tablets ity of (TOPROL XL) 00:00: cardiomyopa (12.5 mg) [place] 25 mg 24 hr 00 thy by mouth MD tablet twice Anderso daily. n [facility] sacubitriL- Yes Stress 1{tbl} Take 1 Univers valsartan 2-07 induced tablet by it y of (ENTRESTO) 00:00: cardiomyopa mouth [place] 24 mg-26 mg 00 thy every 12 MD tab per (twelve) Anderso tablet hours. n [facility] famotidine Yes Papillary 20mg Take 1 Univers (PEPCID) 20 2-07 thyroid tablet (20 ity of mg tablet 00:00: carcinoma mg) by [place] 00 mouth MD twice Anderso daily. n [facility] insulin Yes Type 2 10U Inject 10 Uni vers degludec 2-07 diabetes Units ity of 100 unit/mL 00:00: mellitus under the [place] (3 mL) 00 with skin MD insulin pen hyperglycem daily. Anderso ia Skip the n dose if Cancer the Center glucose is less than 100 mg/dL metFORMIN Yes Type 2 500mg Take 1 Uni vers (GLUCOPHAGE 2-07 diabetes tablet it y of -XR) 500 mg 00:00: mellitus (500 mg) [place] 24 hr 00 with by mouth MD tablet hyperglycem daily with Anderso ia breakfast. n [facility] insulin Yes Type 2 5U Inject Univer s lispro 2-07 diabetes 5-15 Units ity of (HumaLOG 00:00: mellitus under the [place] KWIKPEN) 00 with skin 3 MD 100 unit/mL hyperglycem (three) Anderso insulin pen ia times a n day. Take Cancer before Center meals as per the instructio ns provided. metoprolol Yes Stress 12.5mg Take 0.5 Univers succinate 2-07 induced tablets ity of (TOPROL XL) 00:00: cardiomyopa (12.5 mg) [place] 25 mg 24 hr 00 thy by mouth MD tablet twice Anderso daily. n [facility] Center sacubitriL- Yes Stress 1{tbl} Take 1 Univers valsartan 2-07 induced tablet by it y of (ENTRESTO) 00:00: cardiomyopa mouth [place] 24 mg-26 mg 00 thy every 12 MD tab per (twelve) Anderso tablet hours. n [facility] famotidine Yes Papillary 20mg Take 1 Univers (PEPCID) 20 2-07 thyroid tablet (20 ity of mg tablet 00:00: carcinoma mg) by [place] 00 mouth MD twice Anderso daily. n [facility] insulin Yes Type 2 10U Inject 10 Uni vers degludec 2-07 diabetes Units ity of 100 unit/mL 00:00: mellitus under the [place] (3 mL) 00 with skin MD insulin pen hyperglycem daily. Anderso ia Skip the n dose if Cancer the Center glucose is less than 100 mg/dL metFORMIN Yes Type 2 500mg Take 1 Uni vers (GLUCOPHAGE 2-07 diabetes tablet it y of -XR) 500 mg 00:00: mellitus (500 mg) [place] 24 hr 00 with by mouth MD tablet hyperglycem daily with Anderso ia breakfast. n [facility] insulin Yes Type 2 5U Inject Univer s lispro -07 diabetes 5-15 Units ity of (HumaLOG 00:00: mellitus under the [place] KWIKPEN) 00 with skin 3 MD 100 unit/mL hyperglycem (three) Anderso insulin pen ia times a n day. Take Cancer before Center meals as per the instructio ns provided. LORAZEPAM No 5 0.5 MG TABS -19 00:00: 00 LORazepam 2022- No [place] .5mg Take 1 Univers (Ativan) 03-14 [place] tablet ity of 0.5 mg 00:00: 00:00 (0.5 mg) [place] tablet 00 :00 by mouth 2 MD (two) Anderso times a n day as Cancer needed for Center anxiety. LORazepam 2022- No [place] .5mg Take 1 Univers (Ativan) 03-14-07 [place] tablet ity of 0.5 mg 00:00: 00:00 (0.5 mg) [place] tablet 00 :00 by mouth 2 (two) Anderso times a n day as Cancer needed for Center anxiety. LORazepam 2023-0 2023- No [place] .5mg Take 1 Univers (Ativan) 03-14 [place] tablet ity of 0.5 mg 00:00: 00:00 (0.5 mg) [place] tablet 00 :00 by mouth 2 MD (two) Anderso times a n day as Cancer needed for Center anxiety. LORazepam 2023-0 2023- No [place] .5mg Take 1 Univers (Ativan) 03-14 [place] tablet ity of 0.5 mg 00:00: 00:00 (0.5 mg) [place] tablet 00 :00 by mouth 2 MD (two) Anderso times a n day as Cancer needed for Center anxiety. LORazepam 2023-0 2023- No [place] .5mg Take 1 Univers (Ativan) 03-14 [place] tablet ity of 0.5 mg 00:00: 00:00 (0.5 mg) [place] tablet 00 :00 by mouth 2 (two) Anderso times a n day as Cancer needed for Center anxiety. LORazepam 2023-0 2023- No [place] .5mg Take 1 Univers (Ativan) 03-14 [place] tablet ity of 0.5 mg 00:00: 00:00 (0.5 mg) [place] tablet 00 :00 by mouth 2 (two) Anderso times a n day as Cancer needed for Center anxiety. LORazepam 2023-0 2023- No [place] .5mg Take 1 Univers (Ativan) 03-14 [place] tablet ity of 0.5 mg 00:00: 00:00 (0.5 mg) [place] tablet 00 :00 by mouth 2 (two) Anderso times a n day as Cancer needed for Center anxiety. LORazepam 2023-0 2023- No [place] .5mg Take 1 Univers (Ativan) 03-14 [place] tablet ity of 0.5 mg 00:00: 00:00 (0.5 mg) [place] tablet 00 :00 by mouth 2 MD (two) Anderso times a n day as Cancer needed for Center anxiety. LORazepam 2022-0 2022- No [place] .5mg Take 1 Univers (Ativan) 03-14 [place] tablet ity of 0.5 mg 00:00: 00:00 (0.5 mg) [place] tablet 00 :00 by mouth 2 MD (two) Anderso times a n day as Cancer needed for Center anxiety. LORazepam 2022-0 2022- No [place] .5mg Take 1 Univers (Ativan) 03-13 [place] tablet ity of 0.5 mg 00:00: 05:59 (0.5 mg) [place] tablet 00 :00 by mouth MD once for 1 Anderso dose. [facility] LORazepam 2022-0 2022- No [place] .5mg Take 1 Univers (Ativan) 03-13 [place] tablet ity of 0.5 mg 00:00: 05:59 (0.5 mg) [place] tablet 00 :00 by mouth MD once for 1 Anderso dose. [facility] LORazepam 2022-0 2022- No [place] .5mg Take 1 Univers (Ativan) 03-13 [place] tablet ity of 0.5 mg 00:00: 05:59 (0.5 mg) [place] tablet 00 :00 by mouth MD once for 1 Anderso dose. [facility] LORazepam 2022- No [place] .5mg Take 1 Univers (Ativan) 03-13 [place] tablet ity of 0.5 mg 00:00: 05:59 (0.5 mg) [place] tablet 00 :00 by mouth MD once for 1 Anderso dose. [facility] LORazepam 2022-0 2022- No [place] .5mg Take 1 Univers (Ativan) 03-13 [place] tablet ity of 0.5 mg 00:00: 05:59 (0.5 mg) [place] tablet 00 :00 by mouth MD once for 1 Anderso dose. [facility] LORazepam 2022-0 2023- No Claustropho .5mg Take 1 Univers (Ativan) 03-13 [place] tablet ity of 0.5 mg 00:00: 05:59 (0.5 mg) [place] tablet 00 :00 by mouth MD once for 1 [place]o dose. n [facility] LORazepam 2022-2022- No Claustropho .5mg Take 1 Univers (Ativan) 03-13 [place] tablet ity of 0.5 mg 00:00: 05:59 (0.5 mg) [place] tablet 00 :00 by mouth MD once for 1 Anderso dose. n [facility] LORazepam 2022- No Claustropho .5mg Take 1 Univers (Ativan) 03-13 [place] tablet ity of 0.5 mg 00:00: 05:59 (0.5 mg) [place] tablet 00 :00 by mouth MD once for 1 Anderso dose. n [facility] LORazepam 2022- No Cla[place] .5mg Take 1 Univers (Ativan) 03-13 [place] tablet ity of 0.5 mg 00:00: 05:59 (0.5 mg) [place] tablet 00 :00 by mouth MD once for 1 Anderso dose. n [facility] LORazepam 2022- No [place] .5mg Take 1 Univers (Ativan) 03-13 [place] tablet ity of 0.5 mg 00:00: 00:00 (0.5 mg) [place] tablet 00 :00 by mouth MD once for 1 [place]o dose. Take n [facility] LORazepam 2022- No [place] .5mg Take 1 Univers (Ativan) 03-13 [place] tablet ity of 0.5 mg 00:00: 00:00 (0.5 mg) [place] tablet 00 :00 by mouth MD once for 1 Anderso dose. Take n [facility] to [facility] LORazepam 2022- No [place] .5mg Take 1 Univers (Ativan) 03-13 [place] tablet ity of 0.5 mg 00:00: 00:00 (0.5 mg) [place] tablet 00 :00 by mouth MD once for 1 [place]o dose. Take n [facility] to [facility] LORazepam 2022-2022- No [place] .5mg Take 1 Univers (Ativan) 03-13 [place] tablet ity of 0.5 mg 00:00: 00:00 (0.5 mg) [place] tablet 00 :00 by mouth MD once for 1 Anderso dose. Take n prior to [facility] LORazepam 2022- No [place] .5mg Take 1 Univers (Ativan) 03-13 [place] tablet ity of 0.5 mg 00:00: 00:00 (0.5 mg) [place] tablet 00 :00 by mouth MD once for 1 Anderso dose. Take n prior to [facility] LORazepam 2022- No [place] .5mg Take 1 Univers (Ativan) 03-13 [place] tablet ity of 0.5 mg 00:00: 00:00 (0.5 mg) [place] tablet 00 :00 by mouth MD once for 1 Anderso dose. Take n prior to [facility] LORazepam 2022- No [place] .5mg Take 1 Univers (Ativan) 03-13 [place] tablet ity of 0.5 mg 00:00: 00:00 (0.5 mg) [place] tablet 00 :00 by mouth MD once for 1 [place] dose. Take n prior to [facility] LORazepam 2022- No [place] .5mg Take 1 Univers (Ativan) 03-13 [place] tablet ity of 0.5 mg 00:00: 00:00 (0.5 mg) [place] tablet 00 :00 by mouth MD once for 1 [place] dose. Take n prior to [facility] LORazepam 2022- No [place] .5mg Take 1 Univers (Ativan) 03-13 [place] tablet ity of 0.5 mg 00:00: 00:00 (0.5 mg) [place] tablet 00 :00 by mouth MD once for 1 [place] dose. Take n prior to [facility] sertraline Yes TAKE ONE Uni vers (ZOLOFT) 25 1-17 (1) ity of mg tablet 00:00: TABLET(S) Rex as 00 BY MOUTH MD DAILY. Anderso n [facility] sertraline Yes TAKE ONE Uni vers (ZOLOFT) 25 1-17 (1) ity of mg tablet 00:00: TABLET(S) [place] as 00 BY MOUTH MD DAILY. [facility] sertraline Yes TAKE ONE Uni vers (ZOLOFT) 25 1-17 (1) ity of mg tablet 00:00: TABLET(S) [place] as 00 BY MOUTH MD DAILY. [facility] sertraline Yes TAKE ONE Uni vers (ZOLOFT) 25 1-17 (1) ity of mg tablet 00:00: TABLET(S) [place] as 00 BY MOUTH MD DAILY. [facility] sertraline Yes TAKE ONE Uni vers (ZOLOFT) 25 1-17 (1) ity of mg tablet 00:00: TABLET(S) [place] as 00 BY MOUTH MD DAILY. [facility] sertraline Yes TAKE ONE Uni vers (ZOLOFT) 25 1-17 (1) ity of mg tablet 00:00: TABLET(S) [place] as 00 BY MOUTH MD DAILY. [facility] sertraline Yes TAKE ONE Uni vers (ZOLOFT) 25 1-17 (1) ity of mg tablet 00:00: TABLET(S) [place] as 00 BY MOUTH MD DAILY. [facility] sertraline Yes TAKE ONE Uni vers (ZOLOFT) 25 1-17 (1) ity of mg tablet 00:00: TABLET(S) [place] as 00 BY MOUTH MD DAILY. [facility] sertraline Yes TAKE ONE Uni vers (ZOLOFT) 25 1-17 (1) ity of mg tablet 00:00: TABLET(S) [place] 00 BY MOUTH MD DAILY. [facility] metFORMIN 2022- No TAKE 2 Unive rs (GLUCOPHAGE 03-12 02-07 TABLETS ity of -XR) 500 mg 00:00: 00:00 [place] :00 DAILY WITH MD tablet MEALS. [facility] metFORMIN 2022- No TAKE 2 Unive rs (GLUCOPHAGE 03-12 02-07 TABLETS ity of -XR) 500 mg 00:00: 00:[place] :00 DAILY WITH MD tablet MEALS. [facility] metFORMIN 2022- No TAKE 2 Unive rs (GLUCOPHAGE 117 02-07 TABLETS ity of -XR) 500 mg 00:00: 00:[place] :00 DAILY WITH MD tablet MEALS. [facility] metFORMIN 2022- No TAKE 2 Unive rs (GLUCOPHAGE 1-17 02-07 TABLETS ity of -XR) 500 mg 00:00: 00:00 [place] 00 :00 DAILY WITH MD tablet MEALS. [facility] metFORMIN 2022- No TAKE 2 Unive rs (GLUCOPHAGE 1-17 02-07 TABLETS ity of -XR) 500 mg 00:00: 00:[place] 00 :00 DAILY WITH MD tablet MEALS. [facility] metFORMIN 2022- No TAKE 2 Unive rs (GLUCOPHAGE 1-17 02-07 TABLETS ity of -XR) 500 mg 00:00: 00:[place] 00 :00 DAILY WITH MD tablet MEALS. [facility] metFORMIN 2022- No TAKE 2 Unive rs (GLUCOPHAGE 1-17 02-07 TABLETS ity of -XR) 500 mg 00:00: 00:[place] 00 :00 DAILY WITH MD tablet MEALS. [facility] metFORMIN 2022- No TAKE 2 Unive rs (GLUCOPHAGE 1-17 02-07 TABLETS ity of -XR) 500 mg 00:00: 00:[place] 00 :00 DAILY WITH MD tablet MEALS. [facility] metFORMIN 2022- No TAKE 2 Unive rs (GLUCOPHAGE 117 02-07 TABLETS ity of -XR) 500 mg 00:00: 00:[place] 00 :00 DAILY WITH MD tablet MEALS. [facility] TAKE 2 2022-0 No 500 TABLETS 1-16 TWICE DAILY 00:00: WITH MEALS. 00 TAKE 1 2022-0 No 200 TABLET 1-16 DAILY. 00:00: 00 INJECT 2022-0 No 100 UNITS BELOW 1-16 THE SKIN 00:00: USING THE 00 SLIDING SCALE. NOT TO EXCEED MORE THAN 50 UNITS MAX TAKE 1 2023-0 No 100 CAPSULE 1-16 EVERY 12 00:00: HOURS 00 DAILY. doxycycline 2022- No TAKE ONE U nivers (VIBRAMYCIN -16 - (1) ity of ) 100 MG 00:00: 00:00 [place] capsule 00 :00 BY MOUTH MD EVERY Anderso TWELVE n HOURS. [facility] [place] insulin 2022- No 5U Inject 5 Unive rs lispro 03-11-07 Units ity of (HumaLOG 00:00: 00:00 under the [place] as KWIKPEN) 00 :00 skin 3 MD 100 unit/mL (three) Bladimir so insulin pen times a n day. [facility] doxycycline 2022- No TAKE ONE U nivers (VIBRAMYCIN 03-11- (1) ity of ) 100 MG 00:00: 00:00 CAPSULE[place]S) [place] capsule 00 :00 BY MOUTH MD EVERY [place] TWELVE n HOURS. [facility] [place] insulin 2022- No 5U Inject 5 Unive rs lispro 03-11-07 Units ity of (HumaLOG 00:00: 00:00 under the [place] as KWIKPEN) 00 :00 skin 3 MD 100 unit/mL (three) Bladimir so insulin pen times a n day. [facility] doxycycline 2022- No TAKE ONE U nivers (VIBRAMYCIN 03-11- (1) ity of ) 100 MG 00:00: 00:00 CAPSULE(S) [place] capsule 00 :00 BY MOUTH MD EVERY [place]o TWELVE n HOURS. [facility] [place] insulin 2022- No 5U Inject 5 Unive rs lispro 03-11-07 Units ity of (HumaLOG 00:00: 00:00 under the [place] as KWIKPEN) 00 :00 skin 3 MD 100 unit/mL (three) Bladimir so insulin pen times a n day. [facility] doxycycline 2022- No TAKE ONE U nivers (VIBRAMYCIN 16 - (1) ity of ) 100 MG 00:00: 00:00 CAPSULE(S) [place] capsule 00 :00 BY MOUTH MD EVERY Anderso TWELVE n HOURS. [facility] [place] insulin 2022- No 5U Inject 5 Unive rs lispro 1-16 02-07 Units ity of (HumaLOG 00:00: 00:00 under the [place] as KWIKPEN) 00 :00 skin 3 MD 100 unit/mL (three) Bladimir so insulin pen times a n day. [facility] doxycycline 2022- No TAKE ONE U nivers (VIBRAMYCIN 1-16 02-07 (1) ity of ) 100 MG 00:00: 00:00 CAPSULE[place]S) [place] capsule 00 :00 BY MOUTH MD EVERY Anderso TWELVE n HOURS. [facility] insulin 2022- No 5U Inject 5 Unive rs lispro -16 02-07 Units ity of (HumaLOG 00:00: 00:00 under the [place] as KWIKPEN) 00 :00 skin 3 MD 100 unit/mL (three) Bladimir so insulin pen times a n day. [facility] doxycycline 2022- No TAKE ONE U nivers (VIBRAMYCIN -16 -07 (1) ity of ) 100 MG 00:00: 00:00 [place]SULE[place]S) [place] capsule 00 :00 BY MOUTH MD EVERY Anderso TWELVE n HOURS. [facility] insulin 2022- No 5U Inject 5 Unive rs lispro -16 02-07 Units ity of (HumaLOG 00:00: 00:00 under the [place] as KWIKPEN) 00 :00 skin 3 MD 100 unit/mL (three) Bladimir so insulin pen times a n day. [facility] doxycycline 2022- No TAKE ONE U nivers (VIBRAMYCIN 1-16 -07 (1) ity of ) 100 MG 00:00: 00:00 [place]SULE[place]S) [place] capsule 00 :00 BY MOUTH EVERY Anderso TWELVE n HOURS. [facility] insulin 2022- No 5U Inject 5 Unive rs lispro -16 02-07 Units ity of (HumaLOG 00:00: 00:00 under the [place] as KWIKPEN) 00 :00 skin 3 MD 100 unit/mL (three) Bladimir so insulin pen times a n day. [facility] doxycycline 2022- No TAKE ONE U nivers (VIBRAMYCIN 1-16 -07 (1) ity of ) 100 MG 00:00: 00:00 [place]LE[place] capsule 00 :00 BY MOUTH MD EVERY Anderso TWELVE n HOURS. [facility] [place] insulin 2022- No 5U Inject 5 Unive rs lispro 03-11 Units ity of (HumaLOG 00:00: 00:00 under the [place] as KWIKPEN) 00 :00 skin 3 MD 100 unit/mL (three) Bladimir so insulin pen times a n day. [facility] [place] doxycycline 2022- No TAKE ONE U nivers (VIBRAMYCIN 03-11 (1) ity of ) 100 MG 00:00: 00:00 CAPSULE(S) [place] capsule 00 :00 BY MOUTH MD EVERY [place]o TWELVE n HOURS. [facility] [place] insulin 2022- No 5U Inject 5 Unive rs lispro 03-11 Units ity of (HumaLOG 00:00: 00:00 under the [place] as KWIKPEN) 00 :00 skin 3 MD 100 unit/mL (three) Bladimir so insulin pen times a n day. [facility] [place] TAKE ONE 2021-02 No 25 (1) 2-30 TABLET(S) 00:00: BY MOUTH 00 DAILY. Dose 2021-02 No Unknown 2-14 00:00: 00 Dose 2021-02 No Unknown 2-14 00:00: 00 Dose 2021-02 No Unknown 2-14 00:00: 00 Dose 2021-02 No Unknown 2-14 00:00: 00 TAKE ONE 2021-02 No (1) TABLET 2-14 BY MOUTH 00:00: TWICE DAILY 00 UNTIL FINISHED. Dose 2021-02 No Unknown 2-14 00:00: 00 levothyroxi 2021-02 Yes TAKE ONE Un shireen ne -29 (1) ity of (SYNTHROID, 00:00: TABLET(S) [place] LEVOTHROID) 00 BY MOUTH 200 mcg DAILY. [place] tablet n [facility] [place] INJECT 2021-02 No UNDER THE 03-24 SKIN BEFORE 00:00: MEALS 00 DIRECTED. MAX DAILY DOSE IS 50 UNITS PER DAY. levothyroxi 2021-02 Yes TAKE ONE Un shireen ne 1-29 (1) ity of (SYNTHROID, 00:00: TABLET(S) [place] LEVOTHROID) 00 BY MOUTH 200 mcg DAILY. [place] tablet n [facility] [place] levothyroxi 2021-02 Yes TAKE ONE Un shireen ne 1-29 (1) ity of (SYNTHROID, 00:00: TABLET(S) [place] LEVOTHROID) 00 BY MOUTH MD 200 mcg DAILY. [place] tablet n [facility] [place] levothyroxi 2021-02 Yes TAKE ONE Un shireen ne 1-29 (1) ity of (SYNTHROID, 00:00: TABLET(S) [place] LEVOTHROID) 00 BY MOUTH MD 200 mcg DAILY. [place] tablet n [facility] [place] levothyroxi 2021-02 Yes TAKE ONE Un shireen ne 1-29 (1) ity of (SYNTHROID, 00:00: TABLET(S) [place] LEVOTHROID) 00 BY MOUTH MD 200 mcg DAILY. [place] tablet n [facility] [place] levothyroxi 2021-02 Yes TAKE ONE Un shireen ne 1-29 (1) ity of (SYNTHROID, 00:00: TABLET(S) [place] LEVOTHROID) 00 BY MOUTH MD 200 mcg DAILY. [place] tablet n [facility] [place] levothyroxi 2021-02 Yes TAKE ONE Un shireen ne 1-29 (1) ity of (SYNTHROID, 00:00: TABLET(S) [place] LEVOTHROID) 00 BY MOUTH MD 200 mcg DAILY. [place] tablet [facility] levothyroxi 2021-02 Yes TAKE ONE Un shireen ne 1-29 (1) ity of (SYNTHROID, 00:00: TABLET(S) [place] LEVOTHROID) 00 BY MOUTH MD 200 mcg DAILY. [place] tablet n [facility] [place] levothyroxi 2021-02 Yes TAKE ONE Un shireen ne 1-29 (1) ity of (SYNTHROID, 00:00: TABLET(S) [place] LEVOTHROID) 00 BY MOUTH MD 200 mcg DAILY. [place] tablet n [facility] [place] insulin 2022- No 30U 30 Units Unive rs degludec 06-29 daily. ity of 100 unit/mL 00:00: 00:00 [place] (3 mL) 00 :00 MD insulin pen Anderso [facility] insulin 2022- No 30U 30 Units Unive rs degludec 06-29 daily. ity of 100 unit/mL 00:00: 00:00 [place] (3 mL) 00 :00 MD insulin pen [facility] insulin 2022- No 30U 30 Units Unive rs degludec 06-29 daily. ity of 100 unit/mL 00:00: 00:00 [place] (3 mL) 00 :00 MD insulin pen [facility] insulin 2022- No 30U 30 Units Unive rs degludec 06-29 daily. ity of 100 unit/mL 00:00: 00:00 [place] (3 mL) 00 :00 MD insulin pen [facility] insulin 2022- No 30U 30 Units Unive rs degludec 06-29 daily. ity of 100 unit/mL 00:00: 00:00 [place] (3 mL) 00 :00 insulin pen [facility] insulin 2021-2022- No 30U 30 Units Unive rs degludec 06-29 daily. ity of 100 unit/mL 00:00: 00:00 [place] (3 mL) 00 :00 insulin pen [facility] insulin 2022- No 30U 30 Units Unive rs degludec 06-29 daily. ity of 100 unit/mL 00:00: 00:00 [place] (3 mL) 00 :00 insulin pen [facility] insulin 2022- No 30U 30 Units Unive rs degludec 06-29 daily. ity of 100 unit/mL 00:00: 00:00 [place] (3 mL) 00 :00 MD insulin pen [facility] insulin 2022- No 30U 30 Units Unive rs degludec 06-29 daily. ity of 100 unit/mL 00:00: 00:00 [place] (3 mL) 00 :00 insulin pen [facility] Vital Signs Vital Name Observation Time Observation Value Comments Source Diastolic blood 2022-07-15 18:30:14 73 mm[Hg] Unive ity of pressure [place] [facility] Heart rate 2022-07-15 18:30:14 83 /min [facility] Body temperature 2022-07-15 18:30:14 36.89 Caty [facility] ers[facility] Respiratory rate 2022-07-15 18:30:14 18 /min [facility] Body weight 2022-07-15 18:30:14 45.85 kg [facility]i [facility] BMI 2022-07-15 18:30:14 19.98 kg/m2 [facility] Oxygen saturation in 2022-07-15 18:30:14 98 /min [facility] of Arterial blood by Toby caryrson Pulse oximetry [facility] Systolic blood 2022-07-15 18:30:14 108 mm[Hg] Univer sity of pressure [facility] Systolic blood 2022-04-02 17:11:00 95 mm[Hg] Univer sity of pressure [facility] Diastolic blood 2022-04-02 17:11:00 63 mm[Hg] Unive rsity of pressure [facility] Heart rate 2022-04-02 17:11:00 109 /min [facility] Body temperature 2022-04-02 17:11:00 36.83 [place] [facility] Respiratory rate 2022-04-02 17:11:00 17 /min [facility] Oxygen saturation in 2022-04-02 17:11:00 99 /min [facility] Arterial blood by Toby caryrson Pulse o[facility] Body weight 2022-04-02 12:01:00 43.5 kg [facility] BMI 2022-04-02 12:01:00 18.95 kg/m2 [facility] Body height 2022-03-30 00:51:00 151.5 cm [facility] BP Systolic 2022-03-11 11:52:00 120 mm[Hg] BP Diastolic 2022-03-11 11:52:00 83 mm[Hg] Weight Measured 2022-03-11 11:52:00 101.80 pounds Height Measured 2022-03-11 11:52:00 59.00 inches Body Temperature 2022-03-11 11:52:00 98.10 degrees Heart Rate 2022-03-11 11:52:00 92.00 /min Respiratory Rate 2022-03-11 11:52:00 BP Systolic 2022-02-19 14:52:00 117 mm[Hg] BP Diastolic 2022-02-19 14:52:00 78 mm[Hg] Weight Measured 2022-02-19 14:52:00 99.60 pounds Height Measured 2022-02-19 14:52:00 59.00 inches Body Temperature 2022-02-19 14:52:00 98.50 degrees Heart Rate 2022-02-19 14:52:00 111.00 /min Respiratory Rate 2022-02-19 14:52:00 BP Systolic 2022-02-06 16:34:00 119 mm[Hg] BP Diastolic 2022-02-06 16:34:00 83 mm[Hg] Weight Measured 2022-02-06 16:34:00 104.00 pounds Height Measured 2022-02-06 16:34:00 59.00 inches Body Temperature 2022-02-06 16:34:00 97.80 degrees Heart Rate 2022-02-06 16:34:00 94.00 /min Respiratory Rate 2022-02-06 16:34:00 16.00 /min Procedures Procedure Date / Time Performing Clinician Source Performed ECHOCARDIOGRAM 2D COMPLETE 2022-07-26 16:17:49 Megan Kapadia [facility] COMPLETE BLOOD COUNT W/ 2022-07-26 15:26:00 Megan Kapadia [facility] [place] DIFFERENTIAL [facility] COMPREHENSIVE METABOLIC 2022-07-26 15:26:00 Megan Kapadia [facility] PANEL [facility] LIPID PANEL 2022-07-26 15:26:00 Megan Kapadia [facility] CARDIAC PANEL 2022-07-26 15:26:00 Megan Kapadia [facility] NT PRO BNP 2022-07-26 15:26:00 Megan Kapadia [facility] FREE THYROXINE 2022-07-26 15:26:00 Megan Kapadia [facility] Results CBC 2022-07-26 15:26:00 Megan Kapadia [facility] MANUAL DIFFERENTIAL 2022-07-26 15:26:00 Megan Kapadia [facility] GLUCOSE LEVEL 2022-07-26 15:26:00 Megan Kapadia [facility] BLOOD UREA NITROGEN 2022-07-26 15:26:00 Megan Kapadia [facility] ELECTROLYTE PANEL 2022-07-26 15:26:00 Megan Kapadia [facility] SERUM CREATININE 2022-07-26 15:26:00 Megan Kapadia [facility] .GLOMERULAR FILTRATION 2022-07-26 15:26:00 Megan Kapadia [facility] RATE [facility] CALCIUM LEVEL TOTAL 2022-07-26 15:26:00 Megan Kapadia [facility] ALBUMIN LEVEL 2022-07-26 15:26:00 Megan Kapadia [facility] ALKALINE PHOSPHATASE 2022-07-26 15:26:00 Megan Kapadia [facility] ALANINE AMINOTRANSFERASE 2022-07-26 15:26:00 Megan Kapadia [facility] ASPARTATE AMINOTRANSFERASE 2022-07-26 15:26:00 Megan Kapadia [facility] TOTAL PROTEIN 2022-07-26 15:26:00 Megan Kapadia [facility] FRACTIONATED BILIRUBIN 2022-07-26 15:26:00 Megan Kapadia [facility] EKG, 12-LEAD (SCHEDULED) 2022-07-15 00:00:00 Megan Kapadia [facility] CT SOFT TISSUE NECK W 2022-04-12 20:09:00 [facility] CONTRAST [facility] CT CHEST W CONTRAST 2022-04-12 20:09:00 [facility]SE S[facility]EN 2022-04-02 14:17:00 Renard Carpenter [facility] Satya Lambert [facility] PROTHROMBIN TIME 2022-04-02 13:05:00 Kiara Shah [facility] HEPATIC FUNCTION PANEL 2022-04-02 13:05:00 Kiara Shah [facility] COMPLETE BLOOD COUNT W/ 2022-04-02 13:05:00 Kiara Shah [facility] MAGNESI[facility] LEV[facility] 2022-04-02 13:05:00 Kiara Shah [facility] BASIC METABOLIC PANEL, 2022-04-02 13:05:00 Kiara Shah [facility] CALCIUM IONIZED [facility] PHOSPHORUS LEVEL 2022-04-02 13:05:00 Kiara Shah [facility] ALBUMIN LEVEL 2022-04-02 13:05:00 [facility] ALKALINE PHOSPHATASE 2022-04-02 13:05:[address] [facility] ALANINE AMINOTRANSFERASE 2022-04-02 13:05:00 [facility] ASPARTATE AMINOTRANSFERASE 2022-04-02 13:05:00 Kiara Shah [facility] TOTAL PROTEIN 2022-04-02 13:05:00 Kiara Shah [facility] FRACTIONATED BILIRUBIN 2022-04-02 13:05:00 Kiara Shah [facility] GLUCOSE LEVEL 2022-04-02 13:05:00 [facility] BLOOD UREA NITROGEN 2022-04-02 13:05:00 Kiara Shah [facility] ELECTROLYTE PANEL 2022-04-02 13:05:00 Kiara Shahit y [facility] SERUM CREATININE 2022-04-02 13:05:00 Kiara Shah [facility] .GLOMERULAR FILTRATION 2022-04-02 13:05:00 Kiara [facility] Results CBC 2022-04-02 13:05:00 [facility] [place] [facility] MANUAL DIFFERENTIAL 2022-04-02 13:05:00 Kiara Shah [facility] CALCIUM IONIZED, VENOUS 2022-04-02 13:01:00 Kiara Shah [facility] POC GLUCOSE SCREEN 2022-04-02 04:20:00 Pablo Kiara [facility] POC GLUCOSE SCREEN 2022-04-01 23:38:00 Pbalo Kiara [facility] ty [facility] GENERAL LABORATORY ADD ON 2022-04-01 22:14:00 Ry Noe U [facility] POC GLUCOSE SCREEN 2022-04-01 18:18:00 Pablo Kiara Universi ty [facility] er Center POC GLUCOSE SCREEN 2022-04-01 16:39:00 Pablo Kiara [facility]i ty [facility] POC GLUCOSE SCREEN 2022-04-01 15:12:00 Pablo Kiara Universi ty of [facility] er Center PROTHROMBIN TIME 2022-04-01 14:09:00 Ana Shahsa [facility] HEPATIC FUNCTION PANEL 2022-04-01 14:09:00 Ki[facility] COMPLETE BLOOD COUNT W/ 2022-04-01 14:09:00 Kiara Shah Uni [facility]ity [facility] MAGNESIUM LEVEL 2022-04-01 14:09:00 Kiara Shah [facility] BASIC METABOLIC PANEL, 2022-04-01 14:09:00 Kiara Shah [facility] CALCIUM IONIZED [facility] PHOSPHORUS LEVEL 2022-04-01 14:09:00 Pablo [facility] TYPE AND SCREEN 2022-04-01 14:09:00 [facility] 2022-04-01 14:09:00 Pablo [facility] ALKALINE PHOSPHATASE 2022-04-01 14:09:[address] [facility] ALANINE AMINOTRANSFERASE 2022-04-01 14:09:00 [facility] ASPARTATE AMINOTRANSFERASE 2022-04-01 14:09:00 Pablo [facility] TOTAL PROTEIN 2022-04-01 14:09:00 Pablo [facility] FRACTIONATED BILIRUBIN 2022-04-01 14:09:00 Kiara Shah [facility] GLUCOSE LEVEL 2022-04-01 14:09:00 Pablo [facility] BLOOD UREA NITROGEN 2022-04-01 14:09:00 Kiara Shah [facility] ELECTROLYTE PANEL 2022-04-01 14:09:00 Kiara Shah [facility] SERUM CREATININE 2022-04-01 14:09:00 Pablo [facility] .GLOMERULAR FILTRATION 2022-04-01 14:09:00 Kiara Shah [facility] Results CBC 2022-04-01 14:09:00 Pablo [facility] MANUAL DIFFERENTIAL 2022-04-01 14:09:[address] [facility] ity [facility] [place] CALCIUM IONIZED, VENOUS 2022-04-01 14:09:00 Kiara Shah Uni versity [facility] Center ABORH 2022-04-01 14:09:00 [facility] [place] [facility] [place] ANTIBODY SCREEN 2022-04-01 14:09:00 [facility] [place] [facility] CLOT EXPIRATION DATE 2022-04-01 14:09:00 Kiara Shah Univer sity [facility] [place] TMP INTERPRETATION 2022-04-01 14:09:00 Kiara Shah [facility] ANTIBODY SCREEN NEGATIVE [facility] HEMOGLOBIN A1C 2022-04-01 14:09:00 [facility] [place] [facility] [place] OSCILLATORY PEP 2022-04-01 14:00:14 [facility] POC GLUCOSE SCREEN 2022-04-01 03:10:00 Kiara Shah [facility] [place] OSCILLATORY PEP 2022-04-01 02:00:15 Pablo [facility] er Center POC GLUCOSE SCREEN 2022-03-31 23:54:00 Kiara Shha [facility] [place] OSCILLATORY PEP 2022-03-31 20:01:02 Pablo [facility] POC GLUCOSE SCREEN 2022-03-31 19:18:00 Pablo [facility] er Center OSCILLATORY PEP 2022-03-31 15:26:44 Pablo [facility] POC GLUCOSE SCREEN 2022-03-31 14:53:00 Pablo [facility] er Center PROTHROMBIN TIME 2022-03-31 12:16:00 Pablo Kiara [facility] HEPATIC FUNCTION PANEL 2022-03-31 12:16:00 Kiara Shah [facility] COMPLETE BLOOD COUNT W/ 2022-03-31 12:16:00 Kiara Shah [facility] MAGNESIUM LEVEL 2022-03-31 12:16:00 Kiara Shah [facility] BASIC METABOLIC PANEL, 2022-03-31 12:16:00 Kiara Shah [facility] CALCIUM IONIZED [facility] PHOSPHORUS LEVEL 2022-03-31 12:16:00 Kiara Shah [facility] ALBUMIN LEVEL 2022-03-31 12:16:00 Kiara Shah [facility] ALKALINE PHOSPHATASE 2022-03-31 12:16:[address] [facility] ALANINE AMINOTRANSFERASE 2022-03-31 12:16:00 [facility] ASPARTATE AMINOTRANSFERASE 2022-03-31 12:16:00 [facility] TOTAL PROTEIN 2022-03-31 12:16:00 [facility] FRACTIONATED BILIRUBIN 2022-03-31 12:16:00 Kiara Shah [facility] GLUCOSE LEVEL 2022-03-31 12:16:00 [facility] BLOOD UREA NITROGEN 2022-03-31 12:16:00 Kiara Shah [facility] ELECTROLYTE PANEL 2022-03-31 12:16:00 Kiara Shah [facility] SERUM CREATININE 2022-03-31 12:16:00 Pablo [facility] .GLOMERULAR FILTRATION 2022-03-31 12:16:00 Kiara Shah [facility] RATE [facility] er Center Results CBC 2022-03-31 12:16:00 [facility] MANUAL DIFFERENTIAL 2022-03-31 12:16:[address] [facility] ity [facility] Can er Center CALCIUM IONIZED, VENOUS 2022-03-31 12:16:00 Kiara Shah [facility] versity [facility] Can er Center POC GLUCOSE SCREEN 2022-03-31 04:42:00 Kiara Shah Universi ty [facility] Can er Center POC GLUCOSE SCREEN 2022-03-31 02:03:00 Pablo Kiara Universi ty [facility] er Center POC GLUCOSE SCREEN 2022-03-31 00:00:00 Pablo Kiara Universi ty [facility] er Center PICC/NON-TUNNELED CVAD 2022-03-30 19:37:03 Kiara Shah [facility] POC GLUCOSE SCREEN 2022-03-30 19:33:00 Kiara Shah Universi ty [facility] er Center POC CRITICAL 2022-03-30 19:30:[address] [facility] Can er Center POC GLUCOSE SCREEN 2022-03-30 19:30:00 Pablo Kiara Universi ty [facility] er Center POC GLUCOSE SCREEN 2022-03-30 15:59:00 Pablo Kiara Universi ty [facility] er Center OSCILLATORY PEP 2022-03-30 14:00:06 [facility] PHOSPHORUS LEVEL 2022-03-30 13:36:00 Pablo [facility] er Center MAGNESIUM LEVEL 2022-03-30 13:36:00 Pablo [facility] PROTHROMBIN TIME 2022-03-30 13:36:00 Pablo [facility] APTT 2022-03-30 13:36:00 Kiara Shah [facility] COMPLETE BLOOD COUNT W/ 2022-03-30 13:36:00 Kiara Shah Uni versity [facility] GLUCOSE LEVEL 2022-03-30 13:36:00 Kiara Shah [facility] BLOOD UREA NITROGEN 2022-03-30 13:36:00 Kiara Shah [facility] ELECTROLYTE PANEL 2022-03-30 13:36:00 Kiara Shah [facility] SERUM CREATININE 2022-03-30 13:36:00 Kiara Shah [facility] .GLOMERULAR FILTRATION 2022-03-30 13:36:00 Kiara Shah [facility] CALCIUM IONIZED, VENOUS 2022-03-30 13:36:00 Kiara Shah [facility] Results CBC 2022-03-30 13:36:00 Kiara Shah [facility] MANUAL DIFFERENTIAL 2022-03-30 13:36:00 Kiara Shah [facility] ALBUMIN LEVEL 2022-03-30 13:36:00 Kiara Shah [facility] ALKALINE PHOSPHATASE 2022-03-30 13:36:[address] [facility] ALANINE AMINOTRANSFERASE 2022-03-30 13:36:00 Kiara [facility] ASPARTATE AMINOTRANSFERASE 2022-03-30 13:36:00 Kiara Shah [facility] TOTAL PROTEIN 2022-03-30 13:36:00 Kiara Shah [facility] FRACTIONATED BILIRUBIN 2022-03-30 13:36:00 Pablo, [facility] BASIC METABOLIC PANEL, 2022-03-30 13:36:00 Pablo [facility] CALCIUM IONIZED [facility] POC GLUCOSE SCREEN 2022-03-30 11:52:00 Pablo [facility] POC GLUCOSE SCREEN 2022-03-30 04:16:00 Pablo [facility] OSCILLATORY PEP 2022-03-30 02:00:12 Pablo [facility] BASIC METABOLIC PANEL, 2022-03-29 23:38:00 [facility] PHOSPHORUS LEVEL 2022-03-29 23:38:00 [facility]NESIUM LEVEL 2022-03-29 23:38:00 Pablo [facility] GLUCOSE LEVEL 2022-03-29 23:38:00 Satya Gonzalez [facility] BLOOD UREA NITROGEN 2022-03-29 23:38:00 Satya [facility] ELECTROLYTE PANEL 2022-03-29 23:38:00 Satya Gonzalez [facility] SERUM CREATININE 2022-03-29 23:38:00 Satya Gonzalez [facility] .GLOMERULAR FILTRATION 2022-03-29 23:38:00 Satya Gonzalez [facility] CALCIUM IONIZED, VENOUS 2022-03-29 23:38:00 Satya Gonzalez [facility] POC GLUCOSE SCREEN 2022-03-29 23:21:00 Kiara Shah [facility] OSCILLATORY PEP 2022-03-29 22:00:05 Pablo [facility] OSCILLATORY PEP 2022-03-29 18:00:15 Pablo [facility] POC GLUCOSE SCREEN 2022-03-29 17:15:00 Pablo [facility] TYPE AND SCREEN 2022-03-29 16:16:00 Pablo [facility] ARTERIAL BLOOD GAS 2022-03-29 16:16:00 Pablo [facility] BASIC METABOLIC PANEL, 2022-03-29 16:16:00 Pablo, [facility] CALCIUM IONIZED [facility] LACTIC ACID, VENOUS 2022-03-29 16:16:00 Pablo [facility] PHOSPHORUS LEVEL 2022-03-29 16:16:00 Pablo [facility] MAGNESIUM LEVEL 2022-03-29 16:16:00 Pablo [facility] ABORH 2022-03-29 16:16[facility]22-03-29 16:16:00 [facility] GLUCOSE LEVEL 2022-03-29 16:16:00 Satya Gonzalez [facility] BLOOD UREA NITROGEN 2022-03-29 16:16:00 Satya [facility] ELECTROLYTE PANEL 2022-03-29 16:16:00 Satya Gonzalez [facility] SERUM CREATININE 2022-03-29 16:16:00 Satya Gonzalez [facility] .GLOMERULAR FILTRATION 2022-03-29 16:16:00 Satya Gonzalez [facility] CALCIUM IONIZED, VENOUS 2022-03-29 16:16:00 Satya Gonzalez [facility] [place] TMP INTERPRETATION 2022-03-29 16:16:00 Jasvir [facility] ANTIBODY SCREEN NEGATIVE MD [facility] CLOT EXPIRATION DATE 2022-03-29 16:16:00 Ellie Tay [facility] Center POC GLUCOSE SCREEN 2022-03-29 14:07:00 Pablo Kiara [facility] [place] OSCILLATORY PEP 2022-03-29 14:00:07 Pablo [facility] POC GLUCOSE SCREEN 2022-03-29 11:16:00 Pablo Kiara [facility] XR CHEST 1 VW PORTABLE 2022-03-29 07:42:48 Pablo Kiaar [facility] ARTERIAL BLOOD GAS 2022-03-29 06:44:00 Pablo Kiara [facility] BASIC METABOLIC PANEL, 2022-03-29 06:44:00 Pablo Kiara [facility] CALCIUM IONIZED [facility] LACTIC ACID, VENOUS 2022-03-29 06:44:00 Kiara Shah [facility] PHOSPHORUS LEVEL 2022-03-29 06:44:00 Pablo [facility] MAGNESIUM LEVEL 2022-03-29 06:44:00 Pablo [facility] PROTHROMBIN TIME 2022-03-29 06:44:00 Pablo [facility] APTT 2022-03-29 06:44:00 Pablo [facility] HEPATIC FUNCTION PANEL 2022-03-29 06:44:00 Pablo Kiara [facility] COMPLETE BLOOD COUNT W/ 2022-03-29 06:44:00 Kiara Shah [facility] DIFFERENTIAL [facility] GLUCOSE LEVEL 2022-03-29 06:44:00 Satya Gonzalez [facility] BLOOD UREA NITROGEN 2022-03-29 06:44:00 Satya [facility] ELECTROLYTE PANEL 2022-03-29 06:44:00 Satya Gonzalez [facility] SERUM CREATININE 2022-03-29 06:44:00 Satya Gonzalez [facility] .GLOMERULAR FILTRATION 2022-03-29 06:44:00 Satya Gonzalez [facility] CALCIUM IONIZED, VENOUS 2022-03-29 06:44:00 Satya Gonzalez [facility] ALBUMIN LEVEL 2022-03-29 06:44:00 Satya Gonzalez [facility] ALKALINE PHOSPHATASE 2022-03-29 06:44:00 Satya Gonzalez [facility] ALANINE AMINOTRANSFERASE 2022-03-29 06:44:00 Satya Gonazlez [facility] ASPARTATE AMINOTRANSFERASE 2022-03-29 06:44:00 Satya Gonzalez [facility] TOTAL PROTEIN 2022-03-29 06:44:00 Satya Gonzalez [facility] FRACTIONATED BILIRUBIN 2022-03-29 06:44:00 Satya Gonzalez [facility] Results CBC 2022-03-29 06:44:00 Florencia DohertyVeronica Alamo o [facility] MANUAL DIFFERENTIAL 2022-03-29 06:44:00 Darion Doherty [facility] POC GLUCOSE SCREEN 2022-03-29 05:26:00 Kiara Shah [facility] [place] POC GLUCOSE SCREEN 2022-03-29 02:13:00 Pablo Kiara [facility] OSCILLATORY PEP 2022-03-29 02:00:13 Pablo [facility] ARTERIAL BLOOD GAS 2022-03-28 23:44:00 Pablo [facility] BASIC METABOLIC PANEL, 2022-03-28 23:44:00 Pablo [facility] CALCIUM IONIZED [facility] LACTIC ACID, VENOUS 2022-03-28 23:44:00 Pablo Kiara [facility] PHOSPHORUS LEVEL 2022-03-28 23:44:00 Pablo [facility] MAGNESIUM LEVEL 2022-03-28 23:44:00 Pablo [facility] GLUCOSE LEVEL 2022-03-28 23:44:00 Satya Gonzalez [facility] BLOOD UREA NITROGEN 2022-03-28 23:44:00 Satya Gonzalez [facility] ELECTROLYTE PANEL 2022-03-28 23:44:00 Satya Gonzalez [facility] SERUM CREATININE 2022-03-28 23:44:00 Satya Gonzalez [facility] .GLOMERULAR FILTRATION 2022-03-28 23:44:00 Satya Gonzalez [facility] CALCIUM IONIZED, VENOUS 2022-03-28 23:44:00 Satya Gonzalez [facility] POC GLUCOSE SCREEN 2022-03-28 22:56:00 Pablo Kiara [facility] OSCILLATORY PEP 2022-03-28 22:00:05 Pablo [facility] OSCILLATORY PEP 2022-03-28 20:07:57 Pablo [facility] VANCOMYCIN LEVEL TROUGH 2022-03-28 17:50:00 Nathaniel Montes [facility] CALCIUM IONIZED, VENOUS 2022-03-28 17:50:00 Kiara Shah [facility] ARTERIAL BLOOD GAS 2022-03-28 17:50:00 Pablo Kiara [facility] POC GLUCOSE SCREEN 2022-03-28 17:43:00 [facility] BASIC METABOLIC PANEL, 2022-03-28 16:22:00 [facility]CI[facility]ONIZED [facility] PHOSPHORUS LEVEL 2022-03-28 16:22:00 Pablo [facility] MAGNESIUM LEVEL 2022-03-28 16:22:00 Pablo [facility] GLUCOSE LEVEL 2022-03-28 16:22:00 Satya Gonzalez [facility] BLOOD UREA NITROGEN 2022-03-28 16:22:00 Satya Gonzalez [facility] ELECTROLYTE PANEL 2022-03-28 16:22:00 Satya Gonzalez [facility] SERUM CREATININE 2022-03-28 16:22:00 Satya Gonzalez [facility] .GLOMERULAR FILTRATION 2022-03-28 16:22:00 Satya Gonzalez [facility] RATE [facility] ECHOCARDIOGRAM 2D LIMITED 2022-03-28 14:20:21 Megan Kapadia [facility] - FOLLOW UP [facility] POC GLUCOSE SCREEN 2022-03-28 11:53:00 Kiara Shah [facility] XR CHEST 1 VW PORTABLE 2022-03-28 08:30:51 Pablo Kiara [facility] ARTERIAL BLOOD GAS 2022-03-28 06:48:00 Kiara Shah [facility] BASIC METABOLIC PANEL, 2022-03-28 06:48:00 Kiara Shah [facility] CALCIUM IONIZED [facility] LACTIC ACID, VENOUS 2022-03-28 06:48:00 Kiara Shah [facility] PHOSPHORUS LEVEL 2022-03-28 06:48:00 Pablo [facility] MAGNESIUM LEVEL 2022-03-28 06:48:00 Pablo [facility] PROTHROMBIN TIME 2022-03-28 06:48:00 Pablo [facility] APTT 2022-03-28 06:48:00 Pablo [facility] HEPATIC FUNCTION PANEL 2022-03-28 06:48:00 Kiara Shah [facility] COMPLETE BLOOD COUNT W/ 2022-03-28 06:48:00 Kiara Shah [facility] GLUCOSE LEVEL 2022-03-28 06:48:00 Satya Gonzalez [facility] BLOOD UREA NITROGEN 2022-03-28 06:48:00 Satya Gonzalez [facility] ELECTROLYTE PANEL 2022-03-28 06:48:00 Satya Gonzalez [facility] SERUM CREATININE 2022-03-28 06:48:00 Satya Gonzalez [facility] .GLOMERULAR FILTRATION 2022-03-28 06:48:00 Satya Gonzalez [facility] CALCIUM IONIZED, VENOUS 2022-03-28 06:48:00 Satya Gonzalez [facility] ALBUMIN LEVEL 2022-03-28 06:48:00 Satya Gonzalez [facility] ALKALINE PHOSPHATASE 2022-03-28 06:48:00 Satya Gonzalez [facility] ALANINE AMINOTRANSFERASE 2022-03-28 06:48:00 Satya Gonzalez [facility] ASPARTATE AMINOTRANSFERASE 2022-03-28 06:48:00 Satya Gonzalez [facility] TOTAL PROTEIN 2022-03-28 06:48:00 Satya Gonzalez [facility] FRACTIONATED BILIRUBIN 2022-03-28 06:48:00 Satya Gonzalez U [facility] Results CBC 2022-03-28 06:48:[address] [facility] MANUAL DIFFERENTIAL 2022-03-28 06:48:00 Darion Doherty [facility] POC GLUCOSE SCREEN 2022-03-28 05:26:00 Pablo Kiara [facility] POC GLUCOSE SCREEN 2022-03-27 23:38:00 Pablo [facility] ARTERIAL BLOOD GAS 2022-03-27 23:36:00 Pablo [facility] BASIC METABOLIC PANEL, 2022-03-27 23:36:00 Kiara Shah [facility] CALCIUM IONIZED [facility] LACTIC ACID, VENOUS 2022-03-27 23:36:00 Kiara Shah [facility] PHOSPHORUS LEVEL 2022-03-27 23:36:00 Pablo [facility] MAGNESIUM LEVEL 2022-03-27 23:36:00 Pablo [facility] GLUCOSE LEVEL 2022-03-27 23:36:00 Satya Gonzalez [facility] BLOOD UREA NITROGEN 2022-03-27 23:36:00 Satya Gonzalez [facility] ELECTROLYTE PANEL 2022-03-27 23:36:00 Satya Gonzalez [facility] SERUM CREATININE 2022-03-27 23:36:00 Satya Gonzalez [facility] .GLOMERULAR FILTRATION 2022-03-27 23:36:00 Satya Gonzalez [facility] CALCIUM IONIZED, VENOUS 2022-03-27 23:36:00 Satya Gonzalez [facility] US RENAL 2022-03-27 21:52:48 Vanessa [facility] POC GLUCOSE SCREEN 2022-03-27 17:47:00 [facility] ARTERIAL BLOOD GAS 2022-03-27 16:19:00 [facility] BASIC METABOLIC PANEL, 2022-03-27 16:19:00 Pablo, [facility] CALCIUM IONIZED [facility] LACTIC ACID, VENOUS 2022-03-27 16:19:00 Kiara Shah [facility] PHOSPHORUS LEVEL 2022-03-27 16:19:00 Pablo [facility] MAGNESIUM LEVEL 2022-03-27 16:19:00 Pablo [facility] GLUCOSE LEVEL 2022-03-27 16:19:00 Satya Gonzalez [facility] BLOOD UREA NITROGEN 2022-03-27 16:19:00 Satya Gonzalez [facility] ELECTROLYTE PANEL 2022-03-27 16:19:00 Satya Gonzalez [facility] SERUM CREATININE 2022-03-27 16:19:00 Satya Gonzalez Univers [facility] .GLOMERULAR FILTRATION 2022-03-27 16:19:00 Satya Gonzalez [facility] CALCIUM IONIZED, VENOUS 2022-03-27 16:19:00 Satya Gonzalez [facility] ARTERIAL BLOOD GAS 2022-03-27 14:32:00 Martínez Mendez [facility] POC GLUCOSE SCREEN 2022-03-27 13:27:00 Pablo Kiara Universi ty [facility] POC GLUCOSE SCREEN 2022-03-27 11:52:00 Pablo, Kiara Universi ty [facility] POC GLUCOSE SCREEN 2022-03-27 10:58:00 Pablo Kiara Universi ty [facility] Center POC GLUCOSE SCREEN 2022-03-27 10:06:00 Pablo Kiara [facility] ty [facility] VANCOMYCIN LEVEL TROUGH 2022-03-27 09:30:00 Ellie Tay [facility] POC GLUCOSE SCREEN 2022-03-27 09:06:00 Pablo Kiara Universi ty [facility] XR CHEST 1 VW PORTABLE 2022-03-27 08:50:25 Pablo Kiara [facility] COMPLETE BLOOD COUNT W/ 2022-03-27 08:16:00 Kiara Shah [facility] DIFFERENTIAL [facility] Results CBC 2022-03-27 08:16:00 Florencia DohertyVeronica Alamo o f [facility] MANUAL DIFFERENTIAL 2022-03-27 08:16:00 Darion Doherty [facility] POC GLUCOSE SCREEN 2022-03-27 08:03:00 Pablo Kiara Universi ty [facility] CARDIAC PANEL 2022-03-27 07:36:00 [facility] ARTERIAL BLOOD GAS 2022-03-27 07:36:00 Kiara Shah [facility] BASIC METABOLIC PANEL, 2022-03-27 07:36:00 Pablo [facility] CALCIUM IONIZED [facility] LACTIC ACID, VENOUS 2022-03-27 07:36:00 Pablo [facility] PHOSPHORUS LEVEL 2022-03-27 07:36:00 Pablo, [facility] MAGNESIUM LEVEL 2022-03-27 07:36:00 Pablo [facility] PROTHROMBIN TIME 2022-03-27 07:36:00 Pablo [facility] APTT 2022-03-27 07:36:00 Pablo [facility] HEPATIC FUNCTION PANEL 2022-03-27 07:36:00 Pablo [facility] GLUCOSE LEVEL 2022-03-27 07:36:00 Satya Gonzalez [facility] BLOOD UREA NITROGEN 2022-03-27 07:36:00 Satya Gonzalez [facility] ELECTROLYTE PANEL 2022-03-27 07:36:00 Satya Gonzalez [facility] SERUM CREATININE 2022-03-27 07:36:00 Satya Gonzalez [facility] .GLOMERULAR FILTRATION 2022-03-27 07:36:00 Satya Gonzalez [facility] CALCIUM IONIZED, VENOUS 2022-03-27 07:36:00 Satya Gonzalez [facility] ALBUMIN LEVEL 2022-03-27 07:36:00 Satya Gonzalez [facility] ALKALINE PHOSPHATASE 2022-03-27 07:36:00 Satya Gonzalez [facility] ALANINE AMINOTRANSFERASE 2022-03-27 07:36:00 Satya Gonzalez [facility] ASPARTATE AMINOTRANSFERASE 2022-03-27 07:36:00 Satya Gonzalez [facility] TOTAL PROTEIN 2022-03-27 07:36:00 Satya Gonzalez Universi ty [facility] FRACTIONATED BILIRUBIN 2022-03-27 07:36:00 Satya Gonzalez [facility] POC GLUCOSE SCREEN 2022-03-27 07:03:00 Pablo, Kiara Universi ty [facility] POC GLUCOSE SCREEN 2022-03-27 05:49:00 Pablo, Kiara Universi ty [facility] Center POC GLUCOSE SCREEN 2022-03-27 04:33:00 Pablo, Kiara [facility] ty [facility] POC GLUCOSE SCREEN 2022-03-27 03:30:00 Pablo, Kiara [facility] POC GLUCOSE SCREEN 2022-03-27 02:33:00 Pablo, Kiara [facility] POC GLUCOSE SCREEN 2022-03-27 01:33:00 Pablo, Kiara [facility] POC GLUCOSE SCREEN 2022-03-27 00:35:00 Pablo, Kiara Universi ty [facility] Center ARTERIAL BLOOD GAS 2022-03-26 23:20:00 Pablo Kiara Universi ty [facility] BASIC METABOLIC PANEL, 2022-03-26 23:20:00 Kiara Shah [facility] CALCIUM IONIZED [facility] LACTIC ACID, VENOUS 2022-03-26 23:20:00 Kiara Shah [facility] PHOSPHORUS LEVEL 2022-03-26 23:20:00 [facility] MAGNESIUM LEVEL 2022-03-26 23:20:00 Kiara Shah [facility] GLUCOSE LEVEL 2022-03-26 23:20:00 Satya Gonzalez [facility] BLOOD UREA NITROGEN 2022-03-26 23:20:00 Satya Gonzalez [facility] ELECTROLYTE PANEL 2022-03-26 23:20:00 Satya Gonzalez [facility] SERUM CREATININE 2022-03-26 23:20:00 Satya Gonzalez [facility] .GLOMERULAR FILTRATION 2022-03-26 23:20:00 Satya Gonzalez [facility] RATE [facility] CALCIUM IONIZED, VENOUS 2022-03-26 23:20:00 Satya Gonzalez [facility] POC GLUCOSE SCREEN 2022-03-26 22:10:00 Pablo Kiara [facility] CARDIAC PANEL 2022-03-26 21:50:00 Ellie Tay [facility] [facility] ARTERIAL BLOOD GAS 2022-03-26 21:50:00 Satya Gonzalez [facility] POC GLUCOSE SCREEN 2022-03-26 21:06:00 Pablo [facility] POC GLUCOSE SCREEN 2022-03-26 20:02:00 [facility] 2022-03-26 19:31:00 Satya Gonzalez [facility] ANTINUCLEAR ANTIBODY HEP-2 2022-03-26 19:31:00 Mars [facility] SUBSTRATE IGG [facility] SEDIMENTATION RATE 2022-03-26 19:31:00 Jayda [facility] NON-AUTOMATED [facility] ANCA PANEL FOR VASCULITIS, 2022-03-26 19:31:00 Mars [facility] SERUM [facility] C REACTIVE PROTEIN 2022-03-26 19:31:00 Jayda Shaw [facility] PROCALCITONIN 2022-03-26 19:31:[address] [facility] LACTIC ACID, VENOUS 2022-03-26 19:31:00 Satya [facility] VANCOMYCIN LEVEL TROUGH 2022-03-26 18:24:00 Kiara Shah [facility] ECHOCARDIOGRAM 2D COMPLETE 2022-03-26 18:19:26 Ellie Tay [facility] W CONTRAST [facility] PROCEDURE FOR CODING 2022-03-26 17:37:07 Satya Gonzalez [facility] STREPTOCOCCUS PNEUMONIAE 2022-03-26 17:23:00 Ellie Tay [facility] URINE ANTIGEN [facility] LEGIONELLA URINE ANTIGEN 2022-03-26 17:23:00 Ellie Tay [facility] MRSA SCREENING CULTURE 2022-03-26 17:23:00 Ellie Tay [facility] LEGIONELLA URINE ANTIGEN 2022-03-26 17:23:00 Iwona Samuels [facility] [place] PATH REVIEW [facility] STREPTOCOCCAL URINE 2022-03-26 17:23:[address] [facility] ANTIGEN PATH REVIEW [facility] [place] POC GLUCOSE SCREEN 2022-03-26 17:21:00 Jose Daniel [facility] ARTERIAL BLOOD GAS 2022-03-26 17:01:00 Ellie Tayit y of [facility] PROTHROMBIN TIME 2022-03-26 17:01:00 Satya Gonzalez [facility] FIBRINOGEN ACTIVITY 2022-03-26 17:01:00 Satya Gonzalez [facility] APTT 2022-03-26 17:01:00 Satya Gonzalez [facility] HC ARTERIAL LINE FOR BP 2022-03-26 16:45:57 Satya Gonzalez [facility] XR CHEST 1 VW 2022-03-26 16:27[facility]IC METABOLIC PANEL, 2022-03-26 16:24[facility]ED [facility] MAGNESIUM LEVEL 2022-03-26 16:24:00 [facility] PHOSPHORUS LEVEL 2022-03-26 16:24:00 JasvirFormerly [facility] CARDIAC PANEL 2022-03-26 16:24:[facility] NT PRO BNP 2022-03-26 16:24:[facility] GLUCOSE LEVEL 2022-03-26 16:24:00 [facility] ELECTROLYTE PANEL 2022-03-26 16:24:00 [facility]ly [facility] SERUM CREATININE 2022-03-26 16:24:00 [facility] .GLOMERULAR FILTRATION 2022-03-26 16:24:00 Ellie Tay [facility] RATE [facility] CALCIUM IONIZED, VENOUS 2022-03-26 16:24:00 Jasvir [facility] BLOOD UREA NITROGEN 2022-03-26 16:24:00 Ellie Tay [facility] FRYE MISCELLANEOUS TEST 2022-03-26 16:24:00 Karin Kapadia [facility] LEGIONELLA CULTURE 2022-03-26 16:17:00 Ellie Tay [facility] POC CHEM 8 2022-03-26 16:01:00 Kiara Shah [facility] POC CRITICAL 2022-03-26 15:55:00 Kiara Shah [facility] POC ARTERIAL BLOOD GAS 2022-03-26 15:55:00 Kiara Shah [facility] LOWER RESPIRATORY CULTURE 2022-03-26 15:36:00 [facility] ST[facility] FUNGUS CULTURE 2022-03-26 15:36:00 Ellie Tay o f [facility] AFB CULTURE W/ SMEAR 2022-03-26 15:36:00 Ellie Tay [facility] GENERAL LABORATORY ADD ON 2022-03-26 15:23:00 Karin Kapadia [facility] TEST [facility] POC CRITICAL 2022-03-26 15:12:00 Kiara Shah [facility] POC ARTERIAL BLOOD GAS 2022-03-26 15:12:00 Kiara Shah [facility] CT CHEST PULMONARY 2022-03-26 14:42:07 Robin Noe [facility] EMBOLISM W CONTRAST [facility] [place] ARTERIAL BLOOD GAS 2022-03-26 14:06:00 Robin Noe [facility] ARTERIAL BLOOD GAS 2022-03-26 11:33:00 [facility] VENOUS BLOOD GAS 2022-03-26 11:28:00 Hasmukh [facility] BLOODCULTURE 2022-03-26 06:25:00 Hasmukh [facility] BASIC METABOLIC PANEL, 2022-03-26 06:25:00 [facility]CI[facility] TOTAL [facility] COMPLETE BLOOD COUNT W/ 2022-03-26 06:25:00 [facility] MAGNESIUM LEVEL 2022-03-26 06:25:00 Jasvir [facility] o f [facility] PHOSPHORUS LEVEL 2022-03-26 06:25:00 Jasvir [facility] LACTIC ACID, VENOUS 2022-03-26 06:25:00 Robin Noe [facility] GLUCOSE LEVEL 2022-03-26 06:25:00 Paola Dill [facility] BLOOD UREA NITROGEN 2022-03-26 06:25:00 Paola Dill [facility] ELECTROLYTE PANEL 2022-03-26 06:25:00 Paola Dill [facility] SERUM CREATININE 2022-03-26 06:25:00 Paola Dill [facility] .GLOMERULAR FILTRATION 2022-03-26 06:25:00 Paola Dill [facility] CALCIUM LEVEL TOTAL 2022-03-26 06:25:00 Paola Dill [facility] Results CBC 2022-03-26 06:25:00 Arvind [facility] MANUAL DIFFERENTIAL 2022-03-26 06:25:00 Arvind [facility] NT PRO BNP 2022-03-26 06:25:00 Paola Dill [facility] CARDIAC PANEL 2022-03-26 06:25:00 Paola Dill [facility] C-PEPTIDE 2022-03-26 06:25:00 Paola Dill [facility] XR CHEST 1 VW PORTABLE 2022-03-26 06:01:00 Robin Noe [facility] POC GLUCOSE SCREEN 2022-03-26 04:09:00 Magdiel Olmstead [facility] POC GLUCOSE SCREEN 2022-03-26 01:07:00 Ishan [facility] EKG, 12-LEAD (PORTABLE) 2022-03-26 00:00:00 Satya Gonzalez [facility] POC GLUCOSE SCREEN 2022-03-25 21:46:00 Ishan [facility] POC GLUCOSE SCREEN 2022-03-25 20:05:00 Ishan [facility] US RENAL 2022-03-25 16:19:[address] [facility] POC GLUCOSE SCREEN 2022-03-25 15:08:00 Ishan [facility] GENERAL LABORATORY ADD ON 2022-03-25 13:20:00 [facility] BASIC METABOLIC PANEL, 2022-03-25 10:45:00 Bud Goldman [facility] CALCIUM TOTAL [facility] GLUCOSE LEVEL 2022-03-25 10:45:00 Hanna [facility] BLOOD UREA NITROGEN 2022-03-25 10:45:00 Bud Goldman [facility] ELECTROLYTE PANEL 2022-03-25 10:45:00 Hanna [facility] SERUM CREATININE 2022-03-25 10:45:00 Hanna [facility] .GLOMERULAR FILTRATION 2022-03-25 10:45:00 Bud Goldman [facility] RATE [facility] CALCIUM LEVEL TOTAL 2022-03-25 10:45:00 Bud Goldman [facility] MAGNESIUM LEVEL 2022-03-25 10:45:00 Hanna [facility] PHOSPHORUS LEVEL 2022-03-25 10:45:00 Hanna [facility] POC GLUCOSE SCREEN 2022-03-25 10:35:00 Hanna Bud [facility] POC ICON 20 URINE 2022-03-25 07:24:00 Paola Dill [facility] TEST [facility] URINE CULTURE 2022-03-25 06:36:00 Paola Dill [facility] URINALYSIS WITH 2022-03-25 06:36:00 Paola Dill [facility] MICROSCOPIC IF INDICATED MD Meier flaco [facility] URINALYSIS MICROSCOPIC 2022-03-25 06:36:00 Paola Dill [facility] [place] EXAM [facility] XR CHEST 1 VW 2022-03-25 05:57:34 Paola Dill [facility] CONFIRM ABORH TYPE 2022-03-25 05:29:00 Paola Dill [facility] POC VENOUS BLOOD GAS + 2022-03-25 05:18:00 Paola Dill [facility] [place] LACTATE [facility] BLOODCULTURE 2022-03-25 05:10:00 Paola Dill [facility] RESPIRATORY VIRAL 2022-03-25 05:10:00 Paola Dill [facility] MULTIPLEX PCR PANEL, [facility] NASOPHARYNGEAL SWAB Center COMPLETE BLOOD COUNT W/ 2022-03-25 05:10:00 Paola Dill [facility] [place] DIFFERENTIAL [facility] COMPREHENSIVE METABOLIC 2022-03-25 05:10:00 Paola Dill [facility] [place] PANEL [facility] MAGNESIUM LEVEL 2022-03-25 05:10:00 Paola Dill [facility] PHOSPHORUS LEVEL 2022-03-25 05:10:00 Paola Dill [facility] PROTHROMBIN TIME 2022-03-25 05:10:00 Paola Dill [facility] APTT 2022-03-25 05:10:00 Paola Dill [facility] TYPE AND SCREEN 2022-03-25 05:10:00 Paola Dill [facility] PROCALCITONIN 2022-03-25 05:10:00 Paola Dill [facility] LACTATE DEHYDROGENASE 2022-03-25 05:10:00 Paola Dill [facility] C REACTIVE PROTEIN 2022-03-25 05:10:00 Paola Dill [facility] Results CBC 2022-03-25 05:10:00 Paola Dill [facility] MANUAL DIFFERENTIAL 2022-03-25 05:10:00 Paola Dill [facility] GLUCOSE LEVEL 2022-03-25 05:10:00 Paola Dill [facility] BLOOD UREA NITROGEN 2022-03-25 05:10:00 Paola Dill [facility] ELECTROLYTE PANEL 2022-03-25 05:10:00 Paola Dill [facility] SERUM CREATININE 2022-03-25 05:10:00 Paola Dill [facility] .GLOMERULAR FILTRATION 2022-03-25 05:10:00 Paola Dill [facility] CALCIUM LEVEL TOTAL 2022-03-25 05:10:00 Paola Dill [facility] ALBUMIN LEVEL 2022-03-25 05:10:00 Paola Dill [facility] ALKALINE PHOSPHATASE 2022-03-25 05:10:00 Paola Dill [facility] ALANINE AMINOTRANSFERASE 2022-03-25 05:10:00 Pa[facility] ASPARTATE AMINOTRANSFERASE 2022-03-25 05:10:00 Paola Dill [facility] TOTAL PROTEIN 2022-03-25 05:10:00 Paola Dill [facility] ABORH 2022-03-25 05:10:00 Paola Dill [facility] ANTIBODY SCREEN 2022-03-25 05:10:00 Paola Dill [facility] TMP INTERPRETATION 2022-03-25 05:10:00 Paola Dill [facility] ANTIBODY SCREEN NEGATIVE MD Meier [facility] CLOT EXPIRATION DATE 2022-03-25 05:10:00 [facility] FRACTIONATED BILIRUBIN 2022-03-25 05:10:00 Paola Dill Uni [facility] POC GLUCOSE SCREEN 2022-03-25 04:44:00 Paola Dill [facility] EKG, 12-LEAD (PORTABLE) 2022-03-25 00:00:00 Iwona Samuels [facility] ABDOMEN AND PELVIS 2022-03-24 22:15:00 Johnson [facility] THORACIC SPINE W WO 2022-03-15 00:31:00 Johnson Ann [facility] CONTRAST [facility] COVID-19 (SARS-COV-2) 2022-03-13 20:16:00 [facility]OMATIC [facility] US HEAD NECK SOFT TISSUE 2022-03-13 20:05:43 Johnson Ann [facility] HEPATITIS C VIRUS ANTIBODY 2022-03-13 18:30:00 Johnson [facility] ALBUMIN LEVEL 2022-03-13 18:30:00 Seth [place] [facility] BLOOD UREA NITROGEN 2022-03-13 18:30:00 Johnson Ann [facility] CALCIUM LEVEL TOTAL 2022-03-13 18:30:00 Johnson Ann [facility] COMPLETE BLOOD COUNT W/ 2022-03-13 18:30:00 Seth Johnson [facility] DIFFERENTIAL [facility] SERUM CREATININE 2022-03-13 18:30:00 Dadu, [facility] FREE THYROXINE 2022-03-13 18:30:00 Dadu, [facility] MAGNESIUM LEVEL 2022-03-13 18:30:00 Dadu, [facility] PTH INTACT 2022-03-13 18:30:00 Dadu, [facility] PROTHROMBIN TIME 2022-03-13 18:30:00 Dadu, [facility] APTT 2022-03-13 18:30:00 Dadu, [facility] PHOSPHORUS LEVEL 2022-03-13 18:30:00 Dadu, [facility] THYROGLOBULIN ANTIBODY 2022-03-13 18:30:00 Johnson Ann [facility] THYROID STIMULATING 2022-03-13 18:30:00 Dadermelinda, [facility] HORMONE [facility] VITAMIN D 25 HYDROXY LEVEL 2022-03-13 18:30:00 Johnson [facility] ELECTROLYTE PANEL 2022-03-13 18:30:00 Dadermelinda, [facility] SERUM CREATININE 2022-03-13 18:30:00 Dadermelinda, [facility] .GLOMERULAR FILTRATION 2022-03-13 18:30:00 Johnson Ann [facility] RATE [facility] Results CBC 2022-03-13 18:30:00 Dadermelinda, [facility] MANUAL DIFFERENTIAL 2022-03-13 18:30:00 Seth [facility] OSI US THYROID 2022-01-30 19:11:00 Dadermelinda, [facility] Plan of Care Planned Activity Planned Date Details Comments Source Future Scheduled 2022-08-24 COVID-19 Vaccination [facility] Test 15:50:49 (3 - Pfizer series) MD [facility] [code = COVID-19 Center Vaccination (3 - Pfizer series)] Future Scheduled 2022-07-30 COVID-19 Vaccination [facility] [place] Test 12:23:36 (3 - Pfizer series) MD [facility] [code = COVID-19 Center Vaccination (3 - Pfizer series)] Future Scheduled 2022-07-19 COVID-19 Vaccination [facility] [place] Test 10:04:49 (3 - Pfizer series) MD [facility] [code = COVID-19 Center Vaccination (3 - Pfizer series)] Future Scheduled 2022-06-21 COVID-19 Vaccination [facility] [place] Test 11:38:02 (3 - Booster for MD Jack Cancer Pfizer series) [code Center = COVID-19 Vaccination (3 - Booster for Pfizer series)] Future Scheduled 2022-06-21 COVID-19 Vaccination [facility] [place] Test 11:38:02 (3 - Booster for MD Jack Cancer Pfizer series) [code Center = COVID-19 Vaccination (3 - Booster for Pfizer series)] Future Scheduled 2022-06-14 COVID-19 Vaccination [facility] [place] Test 12:26:11 (3 - Booster for MD Jack Cancer Pfizer series) [code Center = COVID-19 Vaccination (3 - Booster for Pfizer series)] Future Scheduled 2022-06-05 COVID-19 Vaccination [facility] [place] Test 11:32:01 (3 - Booster for MD Jack Cancer Pfizer series) [code Center = COVID-19 Vaccination (3 - Booster for Pfizer series)] Future Scheduled 2022-05-27 COVID-19 Vaccination [facility] [place] Test 14:00:01 (3 - Booster for MD Jack Cancer Pfizer series) [code Center = COVID-19 Vaccination (3 - Booster for Pfizer series)] Future Scheduled 2022-05-03 COVID-19 Vaccination [facility] [place] Test 10:58:38 (3 - Booster for MD Jack Cancer Pfizer series) [code Center = COVID-19 Vaccination (3 - Booster for Pfizer series)] Future Scheduled 2022-03-08 COVID-19 Vaccination [facility] [place] Test 17:32:46 (3 - Booster for MD Jack Cancer Pfizer series) [code Center = COVID-19 Vaccination (3 - Booster for Pfizer series)] Future Scheduled 2022-02-13 COVID-19 Vaccination [facility] [place] Test 16:11:26 (3 - Booster for MD Jack Cancer Pfizer series) [code Center = COVID-19 Vaccination (3 - Booster for Pfizer series)] Future Scheduled 2022-02-13 COVID-19 Vaccination [facility] [place] Test 16:11:26 (3 - Booster for MD Jack Cancer Pfizer series) [code Center = COVID-19 Vaccination (3 - Booster for Pfizer series)] Goal Plan of Care Note [code = 33881-0] Goal Plan of Care Note [code = 58146-3] Goal Plan of Care Note [code = 51290-6] Goal Plan of Care Note [code = 98145-4] Encounters Start End Encounter Admission Attending Care Care Encounter Source Date/Time Date/Time Type Type Clinicians Facility Department ID 2022-08-06 2022-08-06 Outpatient [facility] [id number] Edwin 13:05:28 13:05:28 [id number] [place] 2022-07-26 2022-07-26 [facility], 1.2.840.1 [id number] Univers 10:36:46 23:59:00 Encounter Megan A 57917.1.1 it y of 3.412.2.7 [place] .3.816270 MD Gonzales [facility] 2022-07-26 2022-07-26 [facility] 1.2.840.1 [id number] Univers 10:36:46 23:59:00 Encounter Megan A 97090.1.1 it y of 3.412.2.7 [place] .3.877368 MD Gonzales [facility] 2022-07-26 2022-07-26 [facility] 1.2.840.1 [id number] Univers 10:00:00 10:35:00 Encounter Megan A [id number] it y of 3.412.2.7 [place] .3.936021 MD Gonzales [facility] 2022-07-26 2022-07-26 [facility], 1.2.840.1 [id number] Univers 10:00:00 10:35:00 Encounter Megan A 97705.1.1 it y of 3.412.2.7 [place] .3.089963 MD Gonzales [facility] 2022-07-26 2022-07-26 Travel 1.2.840.1 1.2.217.802 [id number] Univers 00:00:00 00:00:00 12383.1.1 350.1.13.41 ity of 3.412.2.[place].698 [place]3.899918 084.8 MD Gonzales [facility] 2022-07-26 2022-07-26 Travel 1.2.840.1 1.2.345.584 [id number] Univers 00:00:00 00:00:00 11337.1.1 350.1.13.41 ity of 3.412.2.[place].698 [place] .3.562257 084.Nasir Gonzales [facility] 2022-07-22 2022-07-22 Outpatient [facility] [id number] Edwin 08:27:15 08:27:15 [id number] [place] 2022-07-15 2022-07-15 [facility], 1.2.840.1 [id number] Univers 14:23:57 23:59:00 Encounter Megan Jorge 45028.1.1 it y of 3.412.2.7 [place] .3.118829 MD Gonzales [facility] 2022-07-15 2022-07-15 [facility] 1.2.840.1 [id number] Univers 14:23:57 23:59:00 Encounter Megan Jorge 97711.1.1 it y of 3.412.2.7 [place] .3.923861 MD Gonzales [facility] 2022-07-15 2022-07-15 Follow-Up [facility] 1.2.840.1 [id number] Univers 13:20:00 17:46:42 Megan A 62254.1.1 ity of 3.412.2.7 [place] .3.068932Jd Gonzales [facility] 2022-07-15 2022-07-15 Follow-Up RADHA Kapadia, 1.2.840.1 [id number] Univers 13:20:00 17:46:42 Megan Jorge 60615.1.1 ity of 3.412.2.7 [place] .3.983826 MD Gonzales [facility] 2022-07-15 2022-07-15 Travel 1.2.840.1 1.2.142.431 [id number] Univers 00:00:00 00:00:00 81202.1.1 350.1.13.41 ity of 3.412.2.[place].698 [place] .3.161648 084.8 MD Gonzales [facility] 2022-07-15 2022-07-15 Travel 1.2.840.1 1.2.860.780 [id number] Univers 00:00:00 00:00:00 67323.1.1 350.1.13.41 ity of 3.412.2.[place].698 [place] .3.184703 084.8 MD Gonzales [facility] 2022-07-10 2022-07-10 Outpatient SFA SFA Edwin 14:43:51 14:43:51 [id number] [facility] [place] 2022-07-01 2022-07-01 Outpatient SFA SFA [place] 13:03:42 13:03:42 [id number] [place] 2022-06-12 2022-06-12 Outpatient SFA SFA [place] 15:54:19 15:54:19 [id number] [place] 2022-05-28 2022-05-28 Outpatient SFA SFA [place] 10:57:55 10:57:55 [id number] [place] 2022-05-06 2022-05-06 Outpatient SFA SFA [place] 08:52:54 08:52:54 [id number] [place] 2022-05-02 2022-05-02 Lenora Vásquez, 1.2.840.1 [id number] Univers 00:00:00 00:00:00 Aneetha 89160.1.1 ity of 3.412.2.7 [place] .[id number] MD Geronimo8 [facility] 2022-05-02 2022-05-02 Telephone Fahad, 1.2.840.1 [id number] Univers 00:00:00 00:00:00 Aneetha 51541.1.1 ity of 3.412.2.7 [place] .3.539822 MD Geronimo8 [facility] 2022-05-02 2022-05-02 Telephone Fahad, 1.2.840.1 [id number] Univers 00:00:00 00:00:00 Aneetha 76336.1.1 ity of 3.412.2.7 [place] .3.578047 MD Geronimo8 [facility] 2022-05-02 2022-05-02 Telephone Fahad, 1.2.840.1 [id number] Univers 00:00:00 00:00:00 Aneetha 06924.1.1 ity of 3.412.2.7 [place] .3.650702 MD Geronimo8 [facility] 2022-04-30 2022-04-30 Documentat Querido, 1.2.840.1 [id number] Univers 00:00:00 00:00:00 ion Shereen 48634.1.1 ity of 3.412.2.7 [place] .3.330441 MD Geronimo8 [facility] 2022-04-30 2022-04-30 Documentat Querido, 1.2.840.1 [id number] Univers 00:00:00 00:00:00 ion Shereen 19798.1.1 ity of 3.412.2.7 [place] .3.951019 MD Geronimo8 [facility] 2022-04-18 2022-04-18 Shelly Cason 1.2.840.1 [id number] Univers 00:00:00 00:00:00 Only , Inge Mahmood 58964.1.1 ity of 3.412.2.7 [place] .3.986172 MD Geronimo8 [facility] 2022-04-18 2022-04-18 Orders Cason 1.2.840.1 [id number] Univers 00:00:00 00:00:00 Only , Inge Mahmood 85144.1.1 ity of 3.412.2.7 [place] .3.227914 MD Geronimo8 [facility] 2022-04-12 2022-04-12 [facility], 1.2.840.1 [id number] Univers 12:25:00 23:59:00 Encounter Johnson 01321.1.1 it y of 3.412.2.7 [place] .3.006222 MD Geronimo8 [facility] 2022-04-12 2022-04-12 [facility], 1.2.840.1 [id number] Univers 12:25:00 23:59:00 Encounter Johnson 74477.1.1 it y of 3.412.2.7 [place] .3.663982 MD Gonzales [facility] 2022-04-12 2022-04-12 Travel 1.2.840.1 1.2.537.705 [id number] Univers 00:00:00 00:00:00 67020.1.1 350.1.13.41 ity of 3.412.2.7 [place]7.3.698 [place] .3.088844 084.8 MD Gonzales [facility] 2022-04-12 2022-04-12 Travel 1.2.840.1 1.2.994.709 [id number] Univers 00:00:00 00:00:00 82046.1.1 350.1.13.41 ity of 3.412.2.7 [place]7.3.698 [place] .3.643935 084.8 MD Gonzales [facility] 2022-04-05 2022-04-05 [facility], 1.2.840.[id number] [facility] 20:00:00 20:05:00 Procedure Johnson 12289.1.1 it y of 3.412.2.7 [place] .3.638960 MD Geronimo8 [facility] 2022-04-05 2022-04-05 [facility] RADHA Ann 1.2.840.1 [id number] Univers 20:00:00 20:05:00 Procedure Johnson 69290.1.1 it y of 3.412.2.7 [place] .3.528024 .8 [facility] 2022-03-24 2022-04-02 [facility] Paola Dill 1.2.840.1 [id number] Univers 22:44:00 14:05:00 Encounter Bud Goldman 20146.1.1 ity of Magdiel Olmstead 3.412.2.7 T exjamie Shah, Kiara Tosha .3.185543 Satya Nick8 [facility] 2022-03-24 2022-04-02 [facility] Paola Dill 1.2.840.1 [id number] Univers 22:44:00 14:05:00 Encounter Bud Goldman 79221.1.1 ity of [place]diel [place] 3.412.2.7 [place], Kiara Tosha .3.472607 Satya Nick8 [facility] 2022-04-02 2022-04-02 Orders Francisco, 1.2.840.1 [id number] Univers 00:00:00 00:00:00 Only Hasana 08232.1.1 ity of 3.412.2.7 [place] .3.698364 MD Geronimo8 [facility] 2022-04-02 2022-04-02 Orders Noe, 1.2.840.1 [id number] Univers 00:00:00 00:00:00 Only Ry S 71120.1.1 ity of 3.412.2.7 [place] .3.783929 .8 [facility] 2022-04-02 2022-04-02 Orders Francisco, 1.2.840.1 [id number] Univers 00:00:00 00:00:00 Only Dafne 73323.1.1 ity of 3.412.2.7 [place] .3.029571 MD Gonzales [facility] 2022-04-02 2022-04-02 Orders Hasmukh, 1.2.840.1 [id number] Univers 00:00:00 00:00:00 Only Ry S 08574.1.1 ity of 3.412.2.7 [place] .3.088563 MD Gonzales [facility] 2022-03-30 2022-03-30 Inpatient [facility] [id number] 12:07:29 13:21:14 [facility] 2022-03-30 2022-03-30 Inpatient [facility] [id number] 12:07:11 13:21:11 [facility] [place]-03-30 2022-03-30 Inpatient [facility] [id number] 09:30:57 09:39:40 [facility] [place] 2022-03-29 2022-03-29 Travel 1.2.840.1 [id number] Univers 00:00:00 00:00:00 00231.1.1 350.1.13.41 ity of 3.412.2.7 2.[place]7.3.698 [place] .3.850455 084.8 MD Gonzales [facility] 2022-03-29 2022-03-29 Travel 1.2.840.1 1.2.696.719 [id number] Univers 00:00:00 00:00:00 46607.1.1 350.1.13.41 ity of 3.412.2.[place] 2.[place].3.698 [place] .3.126405 084.8 MD Geronimo8 [facility] 2022-03-26 2022-03-26 Inpatient [facility] [facility] MDA [id number] 07:54:18 07:56:00 KIARA Hannonharmeet mireles 2022-03-26 2022-03-26 Inpatient RADHA OLMSTEAD [facility] MDA [id number] 48 03:40:49 03:53:19 MAGDIEL mireles 2022-03-25 2022-03-25 Travel 1.2.840.1 1.2.023.880 [id number] Univers 00:00:00 00:00:00 22487.1.1 350.1.13.41 ity of 3.412.2.[place].3.698 [place]3.4639[place] 084.8 MD Gonzales [facility] 2022-03-25 2022-03-25 Travel 1.2.840.1 1.2.650.155 4079 [id number] Univers 00:00:00 00:00:00 31111.1.1 350.1.13.41 ity of 3.412.2.[place]3.698 [place] .3.020172 084.8 MD Gonzales [facility] 2022-03-24 2022-03-24 Travel 1.2.840.1 1.2.518.631 0876 [id number] Univers 00:00:00 00:00:00 50854.1.1 350.1.13.41 ity of 3.412.2.[place].3.698 [place] .3.411094 084.8 MD Gonzales [facility] 2022-03-24 2022-03-24 Travel 1.2.840.1 1.2.694.379 0649 [id number] Univers 00:00:00 00:00:00 69919.1.1 350.1.13.41 ity of 3.412.2.[place].3.698 [place] .3.212584 084.8 MD Gonzales [facility] 2022-03-14 2022-03-14 Ancillary [place], 1.2.840.1 [id number] Univers 16:15:00 18:00:00 Procedure Johnson 55873.1.1 it y of 3.412.2.7 [place] .3.971047 MD Gonzales [facility] 2022-03-14 2022-03-14 [facility], 1.2.840.1 [id number] Univers 16:15:00 18:00:00 Procedure Johnson 76778.1.1 it y of 3.412.2.7 [place] .3.389157 MD Gonzales [facility] 2022-03-14 2022-03-14 Travel 1.2.840.1 1.2.161.264 [id number] Univers 00:00:00 00:00:00 72213.1.1 350.1.13.41 ity of 3.412.2.7 [place]7.3.698 [place] .3.264226 084.8 MD Gonzales [facility] 2022-03-14 2022-03-14 Travel 1.2.840.1 1.2.966.094 5174 [id number] Univers 00:00:00 00:00:00 08357.1.1 350.1.13.41 ity of 3.412.2.7 [place]7.3.698 [place] .3.299438 084.8 MD Gonzales [facility] 2022-03-13 2022-03-13 [facility], 1.2.840.1 [id number] [id number] Univers 11:45:00 23:59:00 Encounter Johnson 22068.1.1 it y of 3.412.2.7 [place] .3.806894 MD Gonzales [facility] 2022-03-13 2022-03-13 [facility] [place], 1.2.840.1 [id number] Univers 11:45:00 23:59:00 Encounter Johnson 18409.1.1 it y of 3.412.2.7 [place] .3.394976 MD Gonzales [facility] 2022-03-13 2022-03-13 Clinical Dadu, Johnson 1.2.840.0 [id number] Univers 14:45:00 14:45:00 Support Minerva Ludwig A 55264.1.1 ity of 3.412.2.7 [place] .3.393033 MD Gonzales [facility] 2022-03-13 2022-03-13 Clinical Johnson iVveros 1.2.840.6 [id number] Univers 14:45:00 14:45:00 Support Minerva Ludwig A 36338.1.1 ity of 3.412.2.7 [place] .3.684045 MD Gonzales [facility] 2022-03-13 2022-03-13 Ancillary Dadu, 1.2.840.1 [id number] Univers 12:45:00 14:45:00 Procedure Johnson 15974.1.1 it y of 3.412.2.7 [place] .3.790530 MD Gonzales [facility] 2022-03-13 2022-03-13 Ancillary EL Dadu, 1.2.840.1 [id number] Univers 12:45:00 14:45:00 Procedure Johnson 06297.1.1 it y of 3.412.2.7 [place] .3.463443 MD Gonzales [facility] 2022-03-13 2022-03-13 Office Dadu, 1.2.840.1 [id number] Univers 10:45:00 12:13:39 Visit Johnson 20223.1.1 ity of 3.412.2.7 [place] .3.942491 MD Gonzales [facility] 2022-03-13 2022-03-13 Office EL Dadu, 1.2.840.1 [id number] Univers 10:45:00 12:13:39 Visit Johnson 00851.1.1 ity of 3.412.2.7 [place] .3.678231 MD Gonzales [facility] 2022-03-13 2022-03-13 Travel 1.2.840.1 1.2.097.769 0660 [id number] Univers 00:00:00 00:00:00 46077.1.1 350.1.13.41 ity of 3.412.2.7 2.2.7.3.698 [place] .3.242890 084.8 MD Geronimo8 [facility] 2022-03-13 2022-03-13 Travel 1.2.840.1 1.2.562.573 1271 [id number] Univers 00:00:00 00:00:00 11324.1.1 350.1.13.41 ity of 3.412.2.7 2.2.7.3.698 [place] .3.333913 084.8 MD Geronimo8 [facility] 2022-03-12 2022-03-12 NPR Dadu, 1.2.840.1 [id number] Univers 14:00:00 14:28:46 Johnson 30346.1.1 ity of 3.412.2.7 [place] .3.965489 MD Geronimo8 [facility] 2022-03-12 2022-03-12 NPR EL Dadu, 1.2.840.1 [id number] Univers 14:00:00 14:28:46 Johnson 34770.1.1 ity of 3.412.2.7 [place] .3.830426 MD Geronimo8 [facility] 2022-03-11 2022-03-11 [facility] 962577- 202 Edwin 11:46:46 11:46:46 86414 Barbara Worrell 2022-03-01 2022-03-01 Gary Clay 1.2.840.1 [id number] Univers 00:00:00 00:00:00 Lindy Macias 33466.1.1 ity of n 3.412.2.7 [place] .3.366566 MD Gonzales [facility] 2022-03-01 2022-03-01 Gary Clay 1.2.840.1 [id number] Univers 00:00:00 00:00:00 Augustus Swanson Lindy A 07630.1.1 ity of n 3.412.2.7 [place] .3Juanpablo041344 MD Geronimo8 [facility] 2022-02-22 2022-02-22 Ancillary Dadu, 1.2.840.1 [id number] [id number] Univers 20:10:00 20:15:00 Procedure Johnson 62472.1.1 it y of 3.412.2.7 [place] .3Juanpablo483174 MD Geronimo8 [facility] 2022-02-22 2022-02-22 Ancillary EL Dadu, 1.2.840.1 [id number] [id number] Univers 20:10:00 20:15:00 Procedure Johnson 49231.1.1 it y of 3.412.2.7 [place] .3.713605 MD Geronimo8 [facility] 2022-02-22 2022-02-22 Ancillary Dadu, 1.2.840.1 [id number] [id number] Univers 20:05:00 20:10:00 Procedure Johnson 97551.1.1 it y of 3.412.2.7 [place] .3Juanpablo906106 MD Geronimo8 [facility] 2022-02-22 2022-02-22 Ancillary EL Dadu, 1.2.840.1 [id number] [id number] Univers 20:05:00 20:10:00 Procedure Johnson 89550.1.1 it y of 3.412.2.7 [place] .3Juanpablo750714 MD Geronimo8 [facility] 2022-02-22 2022-02-22 Ancillary Dadu, 1.2.840.1 [id number] [id number] Univers 20:00:00 20:05:00 Procedure Johnson 05207.1.1 it y of 3.412.2.7 [place] .3Juanpablo161338 MD Geronimo8 [facility] 2022-02-22 2022-02-22 Ancillary EL Dadu, 1.2.840.1 [id number] [id number] Univers 20:00:00 20:05:00 Procedure Johnson 53196.1.1 it y of 3.412.2.7 [place] .3.484598 MD Gonzales [facility] 2022-02-22 2022-02-22 Lab Gary Simon 1.2.840.1 [id number] Univers 00:00:00 00:00:00 Augustus Holman Suesherrill Eriki 51113.1.1 ity of n 3.412.2.7 [place] .3.387814 MD Geronimo8 [facility] 2022-02-22 2022-02-22 Lab Gary Simon 1.2.840.1 [id number] Univers 00:00:00 00:00:00 Augustus Holman Karenadda Vejabhuti 03264.1.1 ity of n 3.412.2.7 [place] .3.101999 MD Gonzales [facility] 2022-02-19 2022-02-19 Outpatient [facility] Edwin 15:11:18 15:11:18 40514 F [place] 2022-02-07 2022-02-07 Orders Dadu, 1.2.840.1 [id number] Univers 00:00:00 00:00:00 Only Johnson 48718.1.1 ity of 3.412.2.7 [place] .3.629209 MD Gonzales [facility] 2022-02-07 2022-02-07 Orders Dadu, 1.2.840.1 [id number] Univers 00:00:00 00:00:00 Only Johnson 84774.1.1 ity of 3.412.2.7 [place] .3.126888 MD Geronimo8 [facility] 2022-02-06 2022-02-06 Outpatient [facility] Edwin 16:18:48 16:18:48 42912 F Gm 2022-02-06 2022-02-06 Outpatient g8414hjd- [id number] d4 711aec-a 00:00:00 00:00:00 Visit [id number] -[id number] 2019-04-21 2019-04-21 Outpatient DADU, CJ [facility] [id number] 12:49:19 12:49:19 JOHNSON goncalves n Results Test Description Test Time Test Comments Results Result Comments Source Echocardiogram 2D Complete 2022-07-26 20:04:07 Test Item Value Reference Range Interpretation Comme nts EF (test code = [id number]) 63 PXN (test code = PXN) Mariama Mendoza MD - 07/26/2022 Echocardiographic ReportInterpretation SummaryA complete two-dimensional transthoracic echocardiogram was performed (2D, M-mode, Spectral and color Doppler). The study was technically adequate. Compared to prior study dated : 03/28/22 The left ventricular function is now normal .Normal left ventricular size and systolic function.LV ejection fraction calculated using the bi-plane method of disks is 63 %.The right ventricle is normal in size and function.Unable to estimate RVSP due to lack of TR visualization.There is no pericardial effusion.Left Ventricle:Normal left ventricular size and systolic function. There is normal left ventricular wall thickness. LV ejection fraction calculated using the bi-plane method of disks is 63 %. No regional wall motion abnormalities noted.I WMSI = 1.00 % Normal = 100 Abnormal global longitudinal peak systolic value.X - Cannot 1 - Normal 2 - 3 - Akinetic 4 - DyskineticInterpret Hypokinetic5 - Dacktujmwv9S imaginD volumes were not performed in this study.Cardiac Mechanics/Speckle Tracking Imaging:Abnormal global longitudinal peak systolic value. Strain Imaging was performed; GLPS avg = -15.2%. Speckle tracking imaging was technically limited.Diastology:Normal diastolic function.Right Ventricle:The right ventricle is normal in size and function. Normal RV systolic function using TAPSE criteria.Atria:The left atrial size is normal. Right atrial size is normal.Mitral Valve:The mitral valve is grossly normal. There is no mitral valve stenosis. There is trace mitral regurgitation.Tricuspid Valve:The tricuspid valve is not well visualized, but is grossly normal. There is no tricuspid valve stenosis. There is trace tricuspid regurgitation. Unable to estimate RVSP due to lack of TR visualization.Aortic Valve:The aortic valve is not well visualized. The aortic valve opens well. No aortic regurgitation is present.Pulmonic Valve:The pulmonic valve is not well visualized. There is no pulmonic valvular stenosis. Trace pulmonic valvular regurgitation.Great Vessels:The aortic root is normal size. The inferior vena cava demonstrates normal size and normal respiratory variation.Pericardium/Pleural:There is no pericardial effusion.Preliminary ReviewerPreliminary Interpretation: Yamini Barker MD.MMode/2D Measurements IVSd: 0.73 cm LVIDd: 3.8 cm LVIDs: 2.4 cm LVPWd: 0.77 cmFS: 36.3 % Ao root diam: 2.4 cm Ao root area: 4.6 cm2 LA dimension: 2.4 cmLVOT diam: 2.0 cm EDV(MOD-A4C): 58.8 ml ESV(MOD-A4C): 23.0 mlLVOT area: 3.0 cm2 EF(MOD-A4C): 60.9 %EDV(MOD-A2C): 65.3 mlESV(MOD-A2C): 23.1 ml EDV(MOD-bp): 62.3 mlEF(MOD-A2C): 64.7 % ESV(MOD-bp): 23.2 ml EF(MOD-bp): 62.8 %LAV(MOD-A2C): 19.7 ml EDV (MOD-bp) Index: 45.1 ml/m2LAV(MOD-A4C): 22.0 mlLAV(MOD-bp): 21.4 mlLAV(MOD-bp) Indexed: 15.5 ml/m2ESV (MOD-bp) Index: 16.8 ml/m2 RWT: 0.41 cmTAPSE (>1.6): 1.6 cmDoppler Measurements MV E max jose alfredo: 76.0 cm/sec MV V2 max: 86.7 cm/secMV A max jose alfredo: 72.8 cm/sec MV max P.0 mmHgMV E/A: 1.0 MV V2 mean: 67.5 cm/sec MV mean P.9 mmHg MV V2 VTI: 16.4 cm MVA(VTI): 3.0 cm2MV dec time: 0.11 sec Ao V2 max: 109.1 cm/sec Ao max P.8 mmHg Ao V2 mean: 76.8 cm/sec Ao mean P.7 mmHg Ao V2 VTI: 17.2 cm NADEEM(I,D): 2.8 cm2 NADEEM(V,D): 2.9 cm2LV V1 max P.4 mmHg SV(LVOT): 48.8 mlLV V1 mean P.0 mmHgLV V1 max: 104.5 cm/secLV V1 mean: 66.7 cm/secLV V1 VTI: 16.1 cmMed Peak E' Jose Alfredo: 8.2 cm/sec Lat Peak E' Jose Alfredo: 14.8 cm/secRAP systole: 3.0 mmHg NADEEM Index (I,D): 2.1AVA Index (V,D): 2.1 Dimensionless Index: 0.96E/e' (avg): 6.6 E/e' (lat): 5.1E/e' (sept): 9.3 [facility] 2022-07-26 20:04:07 Test Item Value Reference Range Interpretation Comments EF (test code = 63 [id number]) PXN (test code Mariama Mendoza MD = PXN) - 07/26/2022 Echocardiographic ReportInterpretation SummaryA complete two-dimensional transthoracic echocardiogram was performed (2D, M-mode, Spectral and color Doppler). The study was technically adequate. Compared to prior study dated : 03/28/22 The left ventricular function is now normal .Normal left ventricular size and systolic function.LV ejection fraction calculated using the bi-plane method of disks is 63 %.The right ventricle is normal in size and function.Unable to estimate RVSP due to lack of TR visualization.There is no pericardial effusion.Left Ventricle:Normal left ventricular size and systolic function. There is normal left ventricular wall thickness. LV ejection fraction calculated using the bi-plane method of disks is 63 %. No regional wall motion abnormalities noted.I WMSI = 1.00 % Normal = 100 Abnormal global longitudinal peak systolic value.X - Cannot 1 - Normal 2 - 3 - Akinetic 4 - DyskineticInterpret Hypokinetic5 - Ffijewnapi6D imaginD volumes were not performed in this study.Cardiac Mechanics/Speckle Tracking Imaging:Abnormal global longitudinal peak systolic value. Strain Imaging was performed; GLPS avg = -15.2%. Speckle tracking imaging was technically limited.Diastology:Normal diastolic function.Right Ventricle:The right ventricle is normal in size and function. Normal RV systolic function using TAPSE criteria.Atria:The left atrial size is normal. Right atrial size is normal.Mitral Valve:The mitral valve is grossly normal. There is no mitral valve stenosis. There is trace mitral regurgitation.Tricuspid Valve:The tricuspid valve is not well visualized, but is grossly normal. There is no tricuspid valve stenosis. There is trace tricuspid regurgitation. Unable to estimate RVSP due to lack of TR visualization.Aortic Valve:The aortic valve is not well visualized. The aortic valve opens well. No aortic regurgitation is present.Pulmonic Valve:The pulmonic valve is not well visualized. There is no pulmonic valvular stenosis. Trace pulmonic valvular regurgitation.Great Vessels:The aortic root is normal size. The inferior vena cava demonstrates normal size and normal respiratory variation.Pericardium/Pleural: There is no pericardial effusion.Preliminary ReviewerPreliminary Interpretation: Yamini Barker MD.MMode/2D Measurements IVSd: 0.73 cm LVIDd: 3.8 cm LVIDs: 2.4 cm LVPWd: 0.77 cmFS: 36.3 % Ao root diam: 2.4 cm Ao root area: 4.6 cm2 LA dimension: 2.4 cmLVOT diam: 2.0 cm EDV(MOD-A4C): 58.8 ml ESV(MOD-A4C): 23.0 mlLVOT area: 3.0 cm2 EF(MOD-A4C): 60.9 %EDV(MOD-A2C): 65.3 mlESV(MOD-A2C): 23.1 ml EDV(MOD-bp): 62.3 mlEF(MOD-A2C): 64.7 % ESV(MOD-bp): 23.2 ml EF(MOD-bp): 62.8 %LAV(MOD-A2C): 19.7 ml EDV (MOD-bp) Index: 45.1 ml/m2LAV(MOD-A4C): 22.0 mlLAV(MOD-bp): 21.4 mlLAV(MOD-bp) Indexed: 15.5 ml/m2ESV (MOD-bp) Index: 16.8 ml/m2 RWT: 0.41 cmTAPSE (>1.6): 1.6 cmDoppler Measurements MV E max jose alfredo: 76.0 cm/sec MV V2 max: 86.7 cm/secMV A max jose alfredo: 72.8 cm/sec MV max P.0 mmHgMV E/A: 1.0 MV V2 mean: 67.5 cm/sec MV mean P.9 mmHg MV V2 VTI: 16.4 cm MVA(VTI): 3.0 cm2MV dec time: 0.11 sec Ao V2 max: 109.1 cm/sec Ao max P.8 mmHg Ao V2 mean: 76.8 cm/sec Ao mean P.7 mmHg Ao V2 VTI: 17.2 cm NADEEM(I,D): 2.8 cm2 NADEEM(V,D): 2.9 cm2LV V1 max P.4 mmHg SV(LVOT): 48.8 mlLV V1 mean P.0 mmHgLV V1 max: 104.5 cm/secLV V1 mean: 66.7 cm/secLV V1 VTI: 16.1 cmMed Peak E' Jose Alfredo: 8.2 cm/sec Lat Peak E' Jose Alfredo: 14.8 cm/secRAP systole: 3.0 mmHg NADEEM Index (I,D): 2.1AVA Index (V,D): 2.1 Dimensionless Index: 0.96E/e' (avg): 6.6 E/e' (lat): 5.1E/e' (sept): 9.3 [facility]NP ([facility])2022-07-26 17:23:13NT ProBNP<36<=125 pg/mLUT [facility]Un[facility] (In-[facility])2022-07-26 17:23:13NT ProBNP<36<=125 pg/mLUT [facility]Un[facility] HospitalCardiac [id number] 16:19:53 Test Item Value Reference Range Interpretation Comments CK (test code = 55 U/L 26-192 2157-6) CK MB (test code = <=5.3 25056-8) Troponin T (test code <=19 < 19 n g/L Suggest retest = 11373-2) at 3 to 6 hours later to rule out myocar dial infarction >= 1 9 to <=52 ng/L Possible m yocardial injury. Suggest retest at 3 hours. - a ch ashley of < 20 ng/L, retest at 6 hours - a change of >= 20 ng/L, suggestive of m yocardial infarction > 52 ng/L Suggestive of m yocardial infarction Crit ical value will be reporte d when cTnT is > 52 ng/L an d only reported for th e first in a series. Hemol yzed specimens with Hemolysis Index >100 (100 mg/dl or moderate hemoly sis) may cause interfere nces and falsely low res ults. [facility] HospitalCardiac [id number] 16:19:53 Test Item Value Reference Range Interpretation Comments CK (test code = 55 U/L 26-192 2157-6) CK MB (test code = <=5.3 61760-6) Troponin T (test code <=19 < 19 n g/L Suggest retest = 69649-7) at 3 to 6 hours later to rule out myocar dial infarction >= 1 9 to <=52 ng/L Possible m yocardial injury. Suggest retest at 3 hours. - a ch ashley of < 20 ng/L, retest at 6 hours - a change of > = 20 ng/L, suggestive of m yocardial infarction > 52 ng/L Suggestive of m yocardial infarction Crit ical value will be reporte d when cTnT is > 52 ng/L an d only reported for th e first in a series. Hemol yzed specimens with Hemolysis Index >100 (100 mg/dl or moderate hemoly sis) may cause interfere nces and falsely low res ults. [facility] HospitalFree [id number] 16:19:30 Test Item Value Reference Range Interpretation Comments T4 Free (test code = 3024-7) 1.53 ng/dL 0.93-1.70 [facility]Free [id number] 16:19:30 Test Item Value Reference Range Interpretation Comments T4 Free (test code = 3024-7) 1.53 ng/dL 0.93-1.70 [facility] HospitalFractionated [id number] 16:16:37 Test Item Value Reference Range Interpretation Comments Bili Total (test 0.3 mg/dL <=1.2 Indocyanine Green (ICG) code = 1974-03) may cause fal sely elevated biliru bin results. Total and direct bilirubin must not be measured from s amples containing indo cyanine green. False el evation of total bilirubin can be seen in patient s with IgG concentrations above 28 g/L. Bili Direct (test <=0.3 Indocyanin e Green (ICG) code = 1967-08) may cause fal sely elevated biliru bin results. Total and direct bilirubin must not be measured from s amples containing indo cyanine green. Bili Indirect (test See Note 0.0-0.9 Unable t o calculate code = 1970-02) Indirect Bili dorsey result due to some par ameters are outside rep ortable range [facility] HospitalFractionated [id number] 16:16:37 Test Item Value Reference Range Interpretation Comments Bili Total (test 0.3 mg/dL <=1.2 Indocyanine Green (ICG) code = 1974-03) may cause fal sely elevated biliru bin results. Total and direct bilirubin must not be measured from s amples containing indo cyanine green. False el evation of total bilirubin can be seen in patient s with IgG concentrations above 28 g/L. Bili Direct (test <=0.3 Indocyanin e Green (ICG) code = 1967-08) may cause fal sely elevated biliru bin results. Total and direct bilirubin must not be measured from s amples containing indo cyanine green. Bili Indirect (test See Note 0.0-0.9 Unable t o calculate code = 1970-02) Indirect Bili dorsey result due to some par ameters are outside rep ortable range [facility] HospitalGlomerular Filtration Rate 2022-07-26 16:16:33 Test Item Value Reference Range Interpretation Comments eGFR (test code = 145 See_Comment The eGFRcr [place] 52809-0) the 2020 CKD-EP I creatinine equation using creatinine, patient's age, and sex for adults 18 years of age and older. Other fa ctors, especially musc le mass, may affect accuracy and need to be considered.A ccording to the Kidney Dise ase: Improving Global Outcomes (KDIGO) CKD Work Group 2012 Clinical Practice Guidel ine, chronic kidney disease (CKD) is defined as the abnormalities of kidney struc ture or function, prese nt for more than 3 months, with implications fo r health. CKD should be class ified by cause, GFR abdulaziz gory, and albuminuria cat egory. KDIGO guidelines prov sherri the following GFR c ategoriesStage Description GFR mL/min/1.73 m2G1* Normal or high >= 90G2* Mildly decrease d 60-89G3a Mildly to moder ately decreased 45-59 G3b Moderately to severely dec reased 30-44G4 Severely decrea sed 15-29G5 Kidney failure <15*In the absence of evid ence of kidney damage, neither G1 nor G2 fulfill criteri a for CKD. [Automated mess age] The system which ge nerated this result transmit eugene reference range: >=60 mL/ min/1.73 sq. m. The referenc e range was not used to int erpret this result as nehemiah l/abnormal. [facility] HospitalGlomerular Filtration Rate 2022-07-26 16:16:33 Test Item Value Reference Range Interpretation Comments eGFR (test code = 145 See_Comment The eGFRcr is calculated with 56461-6) the 2020 CKD-EP I creatinine equation using creatinine, patient's age, and sex for adults 18 years of age and older. Other fa ctors, especially musc le mass, may affect accuracy and need to be considered.A ccording to the Kidney Dise ase: Improving Global Outcomes (KDIGO) CKD Work Group 2012 Clinical Practice Guidel ine, chronic kidney disease (CKD) is defined as the abnormalities of kidney struc ture or function, prese nt for more than 3 months, with implications fo r health. CKD should be class ified by cause, GFR abdulaziz gory, and albuminuria cat egory. KDIGO guidelines prov sherri the following GFR c ategoriesStage Description GFR mL/min/1.73 m2G1* Normal or high >= 90G2* Mildly decrease d 60-89G3a Mildly to moder ately decreased 45-59 G3b Moderately to severely dec reased 30-44G4 Severely decrea sed 15-29G5 Kidney failure <15*In the absence of evid ence of kidney damage, neither G1 nor G2 fulfill criteri a for CKD. [Automated mess age] The system which ge nerated this result transmit eugene reference range: >=60 mL/ min/1.73 sq. m. The referenc e range was not used to int erpret this result as nehemiah l/abnormal. [facility] HospitalAlkaline [id number] 16:16:32 Test Item Value Reference Range Interpretation Comments Alk Phos (test code = 6768-6) 112 U/L 35-104 H Lab Interpretation (test code = Abnormal 35933-0) [facility] HospitalAlkaline [id number] 16:16:32 Test Item Value Reference Range Interpretation Comments Alk Phos (test code = 6768-6) 112 U/L 35-104 H Lab Interpretation (test code = Abnormal 36239-2) [facility] HospitalAlbumin [id number] 16:16:31 Test Item Value Reference Range Interpretation Comments Albumin Lvl (test code 4.6 See_Comment [Aut omated message] The = 1750-08) system which ge nerated this result tra nsmitted reference range : 3.5 - 5.2 gm/dL. The refe rence range was not used to interpret this result as normal/abnormal . [facility] HospitalAlbumin [id number] 16:16:31 Test Item Value Reference Range Interpretation Comments Albumin Lvl (test code 4.6 See_Comment [Aut omated message] The = 1750-08) system which ge nerated this result tra nsmitted reference range : 3.5 - 5.2 gm/dL. The refe rence range was not used to interpret this result as normal/abnormal . [facility] HospitalAspartate Aminotransferase 2022-07-26 16:16:30 Test Item Value Reference Range Interpretation Comments AST (test code = 1920-8) 31 U/L <=32 [facility] HospitalAspartate Aminotransferase 2022-07-26 16:16:30 Test Item Value Reference Range Interpretation Comments AST (test code = 1920-8) 31 U/L <=32 [facility] HospitalElectrolyte [id number] 16:16:29 Test Item Value Reference Range Interpretation Comments Sodium Lvl (test code = 138 See_Comment [Au tomated message] The 2950-03) system which ge nerated this result tra nsmitted reference range : 136 - 145 mEq/L. The reference range was not u sed to interpret this result as normal/abnormal . Potassium Lvl (test 4.4 See_Comment [Automa eugene message] The code = 2823-3) system which generated this result tra nsmitted reference range : 3.5 - 5.1 mEq/L. The reference range was not u sed to interpret this result as normal/abnormal . Chloride (test code = 102 See_Comment [Auto mated message] The ) system which ge nerated this result tra nsmitted reference range : 98 - 107 mEq/L. The refe rence range was not u sed to interpret this result as normal/abnormal . CO2 (test code = 26 See_Comment [Automated message] The 2027-10) system which ge nerated this result tra nsmitted reference range : 22 - 29 mEq/L. The refe rence range was not u sed to interpret this result as normal/abnormal . Anion Gap (test code = 10 See_Comment [Aut omated message] The ) system which ge nerated this result tra nsmitted reference range : 4 - 14 mEq/L. The refe rence range was not u sed to interpret this result as normal/abnormal . [facility] [place] [id number] 16:16:29 Test Item Value Reference Range Interpretation Comments Sodium Lvl (test code = 138 See_Comment [Au tomated message] The 2950-03) system which ge nerated this result tra nsmitted reference range : 136 - 145 mEq/L. The reference range was not u sed to interpret this result as normal/abnormal . Potassium Lvl (test 4.4 See_Comment [Automa eugene message] The code = 2823-3) system which generated this result tra nsmitted reference range : 3.5 - 5.1 mEq/L. The reference range was not u sed to interpret this result as normal/abnormal . Chloride (test code = 102 See_Comment [Auto mated message] The ) system which ge nerated this result tra nsmitted reference range : 98 - 107 mEq/L. The refe rence range was not u sed to interpret this result as normal/abnormal . CO2 (test code = 26 See_Comment [Automated message] The 2027-10) system which ge nerated this result tra nsmitted reference range : 22 - 29 mEq/L. The refe rence range was not u sed to interpret this result as normal/abnormal . Anion Gap (test code = 10 See_Comment [Aut omated message] The ) system which ge nerated this result tra nsmitted reference range : 4 - 14 mEq/L. The refe rence range was not u sed to interpret this result as normal/abnormal . [facility].Serum Ftydqqfhco3086-63-21 16:16:28 Test Item Value Reference Range Interpretation Comments Creatinine (test code = 2160-0) 0.35 mg/dL 0.51-0.95 L Lab Interpretation (test code = Abnormal 74253-6) [facility].Serum Lwcssqcrki8386-27-80 16:16:28 Test Item Value Reference Range Interpretation Comments Creatinine (test code = 2160-0) 0.35 mg/dL 0.51-0.95 L Lab Interpretation (test code = Abnormal 95175-8) [facility] Ztsixip2774-02-17 16:16:22 Test Item Value Reference Range Interpretation Comments Total Protein (test code = 2885-2) 7.4 g/dL 6.4-8.3 [facility] Zhswdby5611-83-75 16:16:22 Test Item Value Reference Range Interpretation Comments Total Protein (test code = 2885-2) 7.4 g/dL 6.4-8.3 [facility]Cal[facility] [id number] 16:16:21 Test Item Value Reference Range Interpretation Comments Calcium Lvl (test code = 67451-7) 10.4 mg/dL 8.4-10.2 H Lab Interpretation (test code = Abnormal 94627-7) [facility] [id number] 16:16:21 Test Item Value Reference Range Interpretation Comments Calcium Lvl (test code = 20138-1) 10.4 mg/dL 8.4-10.2 H Lab Interpretation (test code = Abnormal 07017-6) [facility] 16:16:20 Test Item Value Reference Range Interpretation Comments ALT (test code = 1742-6) 34 U/L <=33 H Lab Interpretation (test code = Abnormal 07890-6) [facility] 16:16:20 Test Item Value Reference Range Interpretation Comments ALT (test code = 1742-6) 34 U/L <=33 H Lab Interpretation (test code = Abnormal 59195-8) [facility] 16:16:19 Test Item Value Reference Range Interpretation Comments BUN (test code = 3094-0) 12 mg/dL 6- [facility] 16:16:19 Test Item Value Reference Range Interpretation Comments BUN (test code = 3094-0) 12 mg/dL 6- [facility] Zpkxc8222-02-79 16:16:18 Test Item Value Reference Range Interpretation Comments Glucose Level (test code 236 mg/dL 70-99 H Eff ective 09/20/15, = 2345-7) the glucose reference inter vals have been updat ed based on [place] Diabetes Associ ation guidelines (Standards of Medical Care in Diabetes 2016. Diabetes Care 2 016; 39: S13-S22).Fa sting blood glucose:Normal: 70-99 mg/dLImpa ired fasting glucose (increased risk for diabetes or pre-diabetes): 100-125 mg/dLDiabetes mellitus: >/=12 6 mg/dL Random bl ood glucose:Normal: 70-199 mg/dLNot e: Random glucose >100 mg/dL is associ ated with increased risk for diabetes Lab Interpretation (test Abnormal code = 52891-7) [facility] Wknwb6985-94-58 16:16:18 Test Item Value Reference Range Interpretation Comments Glucose Level (test code 236 mg/dL 70-99 H Eff ective 09/20/15, = 2345-7) the glucose reference inter vals have been updat ed based on [place] Diabetes Associ ation guidelines (Standards of Medical Care in Diabetes 2016. Diabetes Care 2 016; 39: S13-S22).Fa sting blood glucose:Normal: 70-99 mg/dLImpa ired fasting glucose (increased risk for diabetes or pre-diabetes): 100-125 mg/dLDiabetes mellitus: >/=12 6 mg/dL Random bl ood glucose:Normal: 70-199 mg/dLNot e: Random glucose >100 mg/dL is associ ated with increased risk for diabetes Lab Interpretation (test Abnormal code = 03429-1) [facility] HospitalLipid bcqow1988-32-92 16:15:32 Test Item Value Reference Range Interpretation Comments Chol (test code = 246 mg/dL <=199 H ATP III Cl assification 2092-04) of Total Choles terol Primary Target of Therapy (in mg/dL):<200 Iwsmmnfyk019-07 9 Borderline high >=240 High Trig (test code = 201 mg/dL <=149 H ATP III Cl assification 8) of Serum Trigly cerides Primary Target of Therapy (in mg/dL):<150 Khqlmg157-915 Borderline high 200-499 High>=500 Very highNon-fasting triglycerides > 200 mg/dL may be fo llowed up with a fasti ng Lipid Panel. Calculated LDL- C may be falsely decr eased when non-fastin g triglycerides > 200 mg/dL. HDL (test code = 52 mg/dL >=40 2084-10) LDL (test code = 154 mg/dL <=100 H ATP III Cla ssification 03780-2) of LDL Choleste rol Primary Target of Therapy (in mg/dL):<100 Avlkwzk310-797 Near optimal/above vuueuxu733-338 Borderline high 160-189 High>=190 Very high VLDL (test code = 40 mg/dL 60373-4) Lab Interpretation Abnormal (test code = 22837-2) [facility] [id number] 16:15:32 Test Item Value Reference Range Interpretation Comments Chol (test code = 246 mg/dL <=199 H ATP III Cl assification 2092-04) of Total Choles terol Primary Target of Therapy (in mg/dL):<200 Gppxqmcmg315-62 9 Borderline high >=240 High Trig (test code = 201 mg/dL <=149 H ATP III Cl assification 2570-8) of Serum Trigly cerides Primary Target of Therapy (in mg/dL):<150 Ywmump908-577 Borderline high 200-499 High>=500 Very highNon-fasting triglycerides > 200 mg/dL may be fo llowed up with a fasti ng Lipid Panel. Calculated LDL- C may be falsely decr eased when non-fastin g triglycerides > 200 mg/dL. HDL (test code = 52 mg/dL >=40 2085-9) LDL (test code = 154 mg/dL <=100 H ATP III Cla ssification 38178-9) of LDL Choleste rol Primary Target of Therapy (in mg/dL):<100 Fizdgvu487-870 Near optimal/above iqdldxd098-131 Borderline high 160-189 High>=190 Very high VLDL (test code = 40 mg/dL 86794-9) Lab Interpretation Abnormal (test code = 84567-4) [facility] Cancer OqpuftCqijdgpvhdfx8821-26-81 15:39:49 Test Item Value Reference Range Interpretation Comments Neutrophil % (test code = 45.0 % 42.0-66.0 770-8) Lymphocyte % (test code = 43.4 % 24.0-44.0 736-9) Monocyte % (test code = 8.5 % 2.0-7.0 H 5905-5) Eosinophil % (test code = 1.7 % 1.0-4.0 713-8) Basophil % (test code = 0.7 % 0.0-1.0 706-2) IGRE % (test code = 0.7 % 0.0-0.4 H IGRE % c ount 28214-3) includes Metamyelocytes, Myelocytes, and Promyelocytes. Neutrophil Abs (test code 2.65 K/uL 1.70-7.30 = 751-8) Lymphocyte Abs (test code 2.55 K/uL 1.00-4.80 = 731-0) Monocyte Abs (test code = 0.50 K/uL 0.08-0.70 742-7) Eosinophil Abs (test code 0.10 K/uL 0.04-0.40 = 711-2) Basophil Abs (test code = 0.04 K/uL 0.00-0.10 704-7) IG Abs (test code = 0.04 K/uL 0.00-0.04 68120-9) Lab Interpretation (test Abnormal code = 78761-4) [facility] HospitalDifferential[facility] 15:39:49 Test Item Value Reference Range Interpretation Comments Neutrophil % (test code = 45.0 % 42.0-66.0 770-8) Lymphocyte % (test code = 43.4 % 24.0-44.0 736-9) Monocyte % (test code = 8.5 % 2.0-7.0 H 5905-5) Eosinophil % (test code = 1.7 % 1.0-4.0 713-8) Basophil % (test code = 0.7 % 0.0-1.0 706-2) IGRE % (test code = 0.7 % 0.0-0.4 H IGRE % c ount 71367-0) includes Metamyelocytes, Myelocytes, and Promyelocytes. Neutrophil Abs (test code 2.65 K/uL 1.70-7.30 = 751-8) Lymphocyte Abs (test code 2.55 K/uL 1.00-4.80 = 731-0) Monocyte Abs (test code = 0.50 K/uL 0.08-0.70 742-7) Eosinophil Abs (test code 0.10 K/uL 0.04-0.40 = 711-2) Basophil Abs (test code = 0.04 K/uL 0.00-0.10 704-7) IG Abs (test code = 0.04 K/uL 0.00-0.04 58955-3) Lab Interpretation (test Abnormal code = 66380-9) [facility].HHI6961-06-78 15:39:34 Test Item Value Reference Range Interpretation Comments WBC (test code = 5.9 K/uL 4.0-11.0 6690-2) RBC (test code = 789-8) 4.94 See_Comment [Au tomated message] The system [employer] generated this result transmitted ref erence range: 4.00 - 5 .50 M/uL. The refer ence range was not u sed to interpret this result as normal/abnor mal. Hgb (test code = 718-7) 12.8 See_Comment [Au tomated message] The system [employer] generated this result transmitted ref erence range: 12.0 - 1 6.0 gm/dL. The refe rence range was not u sed to interpret this result as normal/abnor mal. Hct (test code = 39.1 % 37.0-47.0 4544-3) MCV (test code = 787-2) 79 fL 82-98 L MCH (test code = 785-6) 25.9 pg 27.0-31.0 L MCHC (test code = 32.7 See_Comment [Automate d message] 786-4) The system [employer] generated this result transmitted ref erence range: 31.0 - 3 6.0 gm/dL. The refe rence range was not u sed to interpret this result as normal/abnor mal. RDW-SD (test code = 38.0 fL 35.1-46.3 19001-7) RDW-CV (test code = 13.3 % 12.0-15.5 788-0) Platelet count (test 361 K/uL 140-440 code = 777-3) MPV (test code = 9.6 fL 4.0-10.4 56522-9) INRBC (test code = 0.0 % <=0.0 The INRBC (instrument 90317-5) NRBC) value ref lects the enumeration of nucleated red b lood cells contained in a 200uL sampleof whole blood analyzed by the instrument. Thi s value maydiffer from the NRBC value repo rted in a manual differential,wh ich is based on a 100 cell differential. Lab Interpretation Abnormal (test code = 28091-8) [facility] Cancer [place].EYZ9574-52-89 15:39:34 Test Item Value Reference Range Interpretation Comments WBC (test code = 5.9 K/uL 4.0-11.0 6690-2) RBC (test code = 789-8) 4.94 See_Comment [Au tomated message] The system [employer] generated this result transmitted ref erence range: 4.00 - 5 .50 M/uL. The refer ence range was not u sed to interpret this result as normal/abnor mal. Hgb (test code = 718-7) 12.8 See_Comment [Au tomated message] The system [employer] generated this result transmitted ref erence range: 12.0 - 1 6.0 gm/dL. The refe rence range was not u sed to interpret this result as normal/abnor mal. Hct (test code = 39.1 % 37.0-47.0 4544-3) MCV (test code = 787-2) 79 fL 82-98 L MCH (test code = 785-6) 25.9 pg 27.0-31.0 L MCHC (test code = 32.7 See_Comment [Automate d message] 786-4) The system ic h generated this result transmitted ref erence range: 31.0 - 3 6.0 gm/dL. The refe rence range was not u sed to interpret this result as normal/abnor mal. RDW-SD (test code = 38.0 fL 35.1-46.3 21647-6) RDW-CV (test code = 13.3 % 12.0-15.5 788-0) Platelet count (test 361 K/uL 140-440 code = 777-3) MPV (test code = 9.6 fL 4.0-10.4 25537-4) INRBC (test code = 0.0 % <=0.0 The INRBC (instrument 03748-5) NRBC) value ref lects the enumeration of nucleated red b lood cells contained in a 200uL sampleof whole blood analyzed by the instrument. Thi s value maydiffer from the NRBC value repo rted in a manual differential,wh ich is based on a 100 cell differential. Lab Interpretation Abnormal (test code = 07040-7) [facility] Cancer [place], [id number] 14:14:40 SPECIMEN NUMBER: [id number] CULTURE, URINE SPECIMEN NUMBER: [id number] SPECIMEN COMMENT: URINE SOURCE:URINE REPORT STATUS: FINAL ISOLATE NUMBER 1: ORGANISM: 06/14/2022 50-100,000 CFU/ML GRAM NEGATIVE BACILLI IDENTIFICATION: 06/15/2022 KLEBSIELLA PNEUMONIAE ISOLATE NUMBER 2: IDENTIFICATION: 06/14/2022 >100,000 CFU/ML STAPHYLOCOCCUS SAPROPHYTICUS ADDITIONAL OBSERVATIONS: ROUTINE SUSCEPTIBILITY TESTING OF S.SAPROPHYTICUS IS NOT ADVISED,BECAUSE INFECTIONS RESPOND TO CONCENTRATIONS ACHIEVED IN URINE OF ANTIMICROBIAL AGENTS COMMONLY USED TO TREAT ACUTE, UNCOMPLICATED URINARY TRACT INFECTIONS (EG, NITROFURANTOIN, TRIMETHOPRIM+/-SULFAMETHOXAZOLE,OR A FLUORQUINOLONE). K. PNEUMONIAE AMOXICILLIN/CA SENSITIVE <=8/4AMPICILLIN RESISTANT >16CEFAZOLIN SENSITIVE 4CEFTRIAXONE SENSITIVE <=1CIPROFLOXACIN SENSITIVE <=1LEVOFLOXACIN SENSITIVE <=2NITROFURANTOIN SENSITIVE <=32PIP/TAZOBAC SENSITIVE <=16TETRACYCLINE SENSITIVE <=4TOBRAMYCIN SENSITIVE <=4TRIMETH/SULFA RESISTANT > NOTE: NUMBERS DISPLAYED REPRESENT MINIMUM INHIBITORY CONCENTRATION (IRVIN) WHICH IS EXPRESSED IN MCG/ML. [facility] has important pathology staff changes effective 04/24/2022. New pathology staff will provide uninterrupted, excellent patient care and clinical consultation. See URL: [email or web address]. UNLESS OTHERWISE INDICATED, ALL TESTING PERFORMED AT [facility] [address] [place] [address] QUALITY CONTROL PROJECTIONIST: ORTIZ MARES M.D. CLIA NUMBER [id number] [facility] [place]. [id number] Culture w/[id number] 22:56:44 Test Item Value Reference Range Interpretation Comments Final Report (test No acid fast bacteria code = 8488) isolated at 8 weeks. Path Review - AFB Culture yield may be (test code = 8477) affected by sample quality, prior treatment, and transportation conditions....The results have been reviewed and electronically signed by Pathologist:Bal Mckeon MD, PhD #[id number] Acid Fast Stain No Acid Fast Bacilli seen Truant (test code = in direct smear 53733-6) CHANDRAKANT (test code = Cultures are held 8 weeks CHANDRAKANT) before finalization. [facility] [place] Culture w/Qurmb0578-77-10 22:56:44 Test Item Value Reference Range Interpretation Comments Final Report (test No acid fast bacteria code = 8488) isolated at 8 weeks. Path Review - AFB Culture yield may be (test code = 8477) affected by sample quality, prior treatment, and transportation conditions....The results have been reviewed and electronically signed by Pathologist:Bal Mckeon MD, PhD #[id number] Acid Fast Stain No Acid Fast Bacilli seen Truant (test code = in direct smear 82570-6) CHANDRAKANT (test code = Cultures are held 8 weeks CHANDRAKANT) before finalization. [facility] w/[id number] 22:56:44 Test Item Value Reference Range Interpretation Comments Final Report (test No acid fast bacteria code = 8488) isolated at 8 weeks. Path Review - AFB Culture yield may be (test code = 8477) affected by sample quality, prior treatment, and transportation conditions....The results have been reviewed and electronically signed by Pathologist:Bal Mckeon MD, PhD #[id number] Acid Fast Stain No Acid Fast Bacilli seen Truant (test code = in direct smear 75652-9) CHANDRAKANT (test code = Cultures are held 8 weeks CHANDRAKANT) before finalization. [facility] w/[id number] 22:56:44 Test Item Value Reference Range Interpretation Comments Final Report (test No acid fast bacteria code = 8488) isolated at 8 weeks. Path Review - AFB Culture yield may be (test code = 8477) affected by sample quality, prior treatment, and transportation conditions....The results have been reviewed and electronically signed by Pathologist:Bal Mckeon MD, PhD #[id number] Acid Fast Stain No Acid Fast Bacilli seen Truant (test code = in direct smear 83821-9) CHANDRAKANT (test code = Cultures are held 8 weeks CHANDRAKANT) before finalization. [facility] w/[id number] 22:56:44 Test Item Value Reference Range Interpretation Comments Final Report (test No acid fast bacteria code = 8488) isolated at 8 weeks. Path Review - AFB Culture yield may be (test code = 8477) affected by sample quality, prior treatment, and transportation conditions....The results have been reviewed and electronically signed by Pathologist:Bal Mckeon MD, PhD #[id number] Acid Fast Stain No Acid Fast Bacilli seen Truant (test code = in direct smear 84316-6) CHANDRAKANT (test code = Cultures are held 8 weeks CHANDRAKANT) before finalization. [facility] w/[id number] 22:56:44 Test Item Value Reference Range Interpretation Comments Final Report (test No acid fast bacteria code = 8488) isolated at 8 weeks. Path Review - AFB Culture yield may be (test code = 8477) affected by sample quality, prior treatment, and transportation conditions....The results have been reviewed and electronically signed by Pathologist:Bal Mckeon MD, PhD #[id number] Acid Fast Stain No Acid Fast Bacilli seen Truant (test code = in direct smear 07233-3) CHANDRAKANT (test code = Cultures are held 8 weeks CHANDRAKANT) before finalization. [facility] w/[id number] 22:56:44 Test Item Value Reference Range Interpretation Comments Final Report (test No acid fast bacteria code = 8488) isolated at 8 weeks. Path Review - AFB Culture yield may be (test code = 8477) affected by sample quality, prior treatment, and transportation conditions....The results have been reviewed and electronically signed by Pathologist:Bal Mckeon MD, PhD #[id number] Acid Fast Stain No Acid Fast Bacilli seen Truant (test code = in direct smear 46167-1) CHANDRAKANT (test code = Cultures are held 8 weeks CHANDRAKANT) before finalization. [facility] w/[id number] 22:56:44 Test Item Value Reference Range Interpretation Comments Final Report (test No acid fast bacteria code = 8488) isolated at 8 weeks. Path Review - AFB Culture yield may be (test code = 8477) affected by sample quality, prior treatment, and transportation conditions....The results have been reviewed and electronically signed by Pathologist:Bal Mckeon MD, PhD #[id number] Acid Fast Stain No Acid Fast Bacilli seen Truant (test code = in direct smear 29067-3) CHANDRAKANT (test code = Cultures are held 8 weeks CHANDRAKANT) before finalization. [facility] HospitalC[facility], [id number] 13:19:05 SPECIMEN NUMBER: [id number] CULTURE, URINE SPECIMEN NUMBER: [id number] SPECIMEN COMMENT: URINE SOURCE: URINE REPORT STATUS: FINAL ISOLATE NUMBER 1: ORGANISM: 05/08/2022 >100,000 CFU/ML GRAM NEGATIVE BACILLI IDENTIFICATION: 05/09/2022 PROTEUS MIRABILIS P. MIRABILIS AMOXICILLIN/CA SENSITIVE <=8/4AMPICILLIN RESISTANT >16CEFAZOLIN INTERMED 16CEFTRIAXONE SENSITIVE <=1CIPROFLOXACIN SENSITIVE <=1LEVOFLOXACIN SENSITIVE <=2NITROFURANTOIN RESISTANT >64PIP/TAZOBAC SENSITIVE<=16TETRACYCLINE RESISTANT >8TOBRAMYCIN SENSITIVE <=4TRIMETH/SULFA RESISTANT >2/38 NOTE:NUMBERS DISPLAYED REPRESENT MINIMUM INHIBITORY CONCENTRATION (IRVIN) WHICH IS EXPRESSED IN MCG/ML.VAGINAL PATHOGENS DNA [id number] 14:57:29 Test Item Value Reference Range Interpretation Comments ADELSO SPECIES NEGATIVE NEGATIVE (test code = ) G. VAGINALIS POSITIVE NEGATIVE A (test code = ) T. VAGINALIS NEGATIVE NEGATIVE Note: The BD A ffirm VPIII (test code = Microbial Ident ification ) Testis a DNA pr obe test intended for us e in the detectionand id entification of Adelso spec ies, Gardnerellavagi nalis and Trichomonas vag inalis nucleic acid. * [facility] has important patho logy staff changes effecti ve 04/24/2022. New pathology staff will provide uninterrupted, excellent patient care an d clinical consultation. S ee URL: [email or web address]. UNLESS OTHE RWISE INDICATED, [facility], [facility]. [address] [place] [id number] LABORATOR Y DIRECTOR: ORTIZ FOX M.D. [place] NUMBER [id number] CAP ACCREDITATION N O. [id number] Fungus [id number] 22:14:47 Test Item Value Reference Range Interpretation Comments Final Report (test No Fungi isolated. code = 8488) Path Review - Culture yield may be Fungus (test code = affected by sample 8479) quality, prior treatment, and transportation conditions. The results have been reviewed and electronically signed by Pathologist:Abiodun Vázquez MD, PhD #[id number] CHANDRAKANT (test code = Cultures are held for 4 CHANDRAKANT) weeks before finalization. [facility] Cancer [place] [id number] 22:14:47 Test Item Value Reference Range Interpretation Comments Final Report (test No Fungi isolated. code = 8488) Path Review - Culture yield may be Fungus (test code = affected by sample 8479) quality, prior treatment, and transportation conditions. The results have been reviewed and electronically signed by Pathologist:Abiodun Vázquez MD, PhD #[id number] CHANDRAKANT (test code = Cultures are held for 4 CHANDRAKANT) weeks before finalization. [facility]2023-03-01 22:14:47 Test Item Value Reference Range Interpretation Comments Final Report (test No Fungi isolated. code = 8488) Path Review - Culture yield may be Fungus (test code = affected by sample 8479) quality, prior treatment, and transportation conditions. The results have been reviewed and electronically signed by Pathologist:Abiodun Vázquez MD, PhD #[id number] CHANDRAKANT (test code = Cultures are held for 4 CHANDRAKANT) weeks before finalization. [facility]2023-03-01 22:14:47 Test Item Value Reference Range Interpretation Comments Final Report (test No Fungi isolated. code = 8488) Path Review - Culture yield may be Fungus (test code = affected by sample 8479) quality, prior treatment, and transportation conditions. The results have been reviewed and electronically signed by Pathologist:Abiodun Vázquez MD, PhD #[id number] CHANDRAKANT (test code = Cultures are held for 4 CHANDRAKANT) weeks before finalization. [facility]2023-03-01 22:14:47 Test Item Value Reference Range Interpretation Comments Final Report (test No Fungi isolated. code = 8488) Path Review - Culture yield may be Fungus (test code = affected by sample 8479) quality, prior treatment, and transportation conditions. The results have been reviewed and electronically signed by Pathologist:Abiodun Vázquez MD, PhD #[id number] CHANDRAKANT (test code = Cultures are held for 4 CHANDRAKANT) weeks before finalization. [facility]2023-03-01 22:14:47 Test Item Value Reference Range Interpretation Comments Final Report (test No Fungi isolated. code = 8488) Path Review - Culture yield may be Fungus (test code = affected by sample 8479) quality, prior treatment, and transportation conditions. The results have been reviewed and electronically signed by Pathologist:Abiodun Vázquez MD, PhD #[id number] CHANDRAKANT (test code = Cultures are held for 4 CHANDRAKANT) weeks before finalization. [facility]2023-03-01 22:14:47 Test Item Value Reference Range Interpretation Comments Final Report (test No Fungi isolated. code = 8488) Path Review - Culture yield may be Fungus (test code = affected by sample 8479) quality, prior treatment, and transportation conditions. The results have been reviewed and electronically signed by Pathologist:Abiodun Vázquez MD, PhD #[id number] CHANDRAKANT (test code = Cultures are held for 4 CHANDRAKANT) weeks before finalization. [facility]2023-03-01 22:14:47 Test Item Value Reference Range Interpretation Comments Final Report (test No Fungi isolated. code = 8488) Path Review - Culture yield may be Fungus (test code = affected by sample 8479) quality, prior treatment, and transportation conditions. The results have been reviewed and electronically signed by Pathologist:Abiodun Vázquez MD, PhD #[id number] CHANDRAKANT (test code = Cultures are held for 4 CHANDRAKANT) weeks before finalization. [facility] HospitalFuus [id number] 22:14:47 Test Item Value Reference Range Interpretation Comments Final Report (test No Fungi isolated. code = 8488) Path Review - Culture yield may be Fungus (test code = affected by sample 8479) quality, prior treatment, and transportation conditions. The results have been reviewed and electronically signed by Pathologist:Abiodun Vázquez MD, PhD #[id number] CHANDRAKANT (test code = Cultures are held for 4 CHANDRAKANT) weeks before finalization. [facility] HospitalLegioneHemphill County HospitalSwnktue6800-09-24 22:42:26 Test Item Value Reference Range Interpretation Comments Final Report (test No Legionella species code = 8488) isolated Path Review - The results have been Legionella (test code reviewed and = 8480) electronically signed by Pathologist:Abiodun Vázquez MD, PhD #[id number] [facility]2023-02-07 22:42:26 Test Item Value Reference Range Interpretation Comments Final Report (test No Legionella species code = 8488) isolated Path Review - The results have been Legionella (test code reviewed and = 8480) electronically signed by Pathologist:Abiodun Vázquez MD, PhD #[id number] [facility]4750[facility]-86 22:42:26 Test Item Value Reference Range Interpretation Comments Final Report (test No Legionella species code = 8488) isolated Path Review - The results have been Legionella (test code reviewed and = 8480) electronically signed by Pathologist:Abiodun Vázquez MD, PhD #[id number] [facility]2023-02-07 22:42:26 Test Item Value Reference Range Interpretation Comments Final Report (test No Legionella species code = 8488) isolated Path Review - The results have been Legionella (test code reviewed and = 8480) electronically signed by Pathologist:Abiodun Vázquez MD, PhD #[id number] [facility]2023-02-07 22:42:26 Test Item Value Reference Range Interpretation Comments Final Report (test No Legionella species code = 8488) isolated Path Review - The results have been Legionella (test code reviewed and = 8480) electronically signed by Pathologist:Abiodun Vázquez MD, PhD #[id number] [facility]2023-02-07 22:42:26 Test Item Value Reference Range Interpretation Comments Final Report (test No Legionella species code = 8488) isolated Path Review - The results have been Legionella (test code reviewed and = 8480) electronically signed by Pathologist:Abiodun Vázquez MD, PhD #[id number] [facility]2023-02-07 22:42:26 Test Item Value Reference Range Interpretation Comments Final Report (test No Legionella species code = 8488) isolated Path Review - The results have been Legionella (test code reviewed and = 8480) electronically signed by Pathologist:Abiodun Vázquez MD, PhD #[id number] [facility]2023-02-07 22:42:26 Test Item Value Reference Range Interpretation Comments Final Report (test No Legionella species code = 8488) isolated Path Review - The results have been Legionella (test code reviewed and = 8480) electronically signed by Pathologist:Abiodun Vázquez MD, PhD #[id number] [facility] Abizdao2451-60-44 22:42:26 Test Item Value Reference Range Interpretation Comments Final Report (test No Legionella species code = 8488) isolated Path Review - The results have been Legionella (test code reviewed and = 8480) electronically signed by Pathologist:Abiodun Vázquez MD, PhD #[id number] [facility] 14:51:34 Test Item Value Reference Range Interpretation Comments Neutrophil % (test See Note 42.0-66.0 Clotted s ampleNotified code = 770-8) Nurse Bettcy a t 04/02/2022 8:47:15 AM CSTN urse will recollectFSCorr ected from 54.0 % on 04/02 8:51:32 TAX EXPERT by Randa Quintanilla. Lymphocyte % (test See Note 24.0-44.0 Clotted s ampleNotified code = 736-9) Nurse Bettcy a t 04/02/2022 8:47:15 AM CSTN urse will recollectFSCorr ected from 37.5 % on 04/02 8:51:32 TAX EXPERT by Randa Quintanilla. Monocyte % (test See Note 2.0-7.0 Clotted oralia pleNotified code = 5905-5) Nurse Bettcy at 04/02/2022 8:47:15 AM CSTN urse will recollectFSCorr ected from 5.0 % on 8:51:32 TAX EXPERT by Randa Quintanilla. Eosinophil % (test See Note 1.0-4.0 Clotted s ampleNotified code = 713-8) Nurse Bettcy a t 04/02/2022 8:47:15 AM CSTN urse will recollectFSCorr ected from 0.8 % [LOW] on 04/02/22 8:51:32 TAX EXPERT by Randa Lorenz. Basophil % (test See Note 0.0-1.0 Clotted oralia pleNotified code = 706-2) Nurse Bettcy a t 04/02/2022 8:47:15 AM CSTN urse will recollectFSCorr ected from 0.2 % on 8:51:32 TAX EXPERT by Randa Quintanilla. IGRE % (test code See Note 0.0-0.4 Clotted sa mpleNotified = 19811-0) Nurse Troy at 04/02/2022 8:47:15 AM CSTN jerod will recollectFSIGRE % count includes Metamy elocytes, Myelocytes, and Promyelocytes.I GRE % count includes Metamy elocytes, Myelocytes, and Promyelocytes.C orrected from 2.5 % [HI] on 04/02/22 8:51:32 TAX EXPERT by Randa Lorenz. Neutrophil Abs See Note 1.70-7.30 Clotted sampl eNotified (test code = Nurse Troy at 04/02/2022 751-8) 8:47:15 AM CSTN jerod will recollectFSCorr ected from 6.86 K/uL on 8:51:32 TAX EXPERT by Randa Lorenz. Lymphocyte Abs See Note 1.00-4.80 Clotted sampl eNotified (test code = Nurse Adeolatcsavanah at 04/02/2022 731-0) 8:47:15 AM CSTN jerod will recollectFSCorr ected from 4.77 K/uL on 8:51:32 TAX EXPERT by Randa Lorenz. Monocyte Abs (test See Note 0.08-0.70 Clotted s ampleNotified code = 742-7) Nurse Troy a t 04/02/2022 8:47:15 AM CSTN jerod will recollectFSCorr ected from 0.63 K/uL on 8:51:32 TAX EXPERT by Randa Lorenz. Eosinophil Abs See Note 0.04-0.40 Clotted sampl eNotified (test code = Nurse Troy at 04/02/2022 711-2) 8:47:15 AM CSTN jerod will recollectFSCorr ected from 0.10 K/uL on 8:51:32 TAX EXPERT by Randa Lorenz. Basophil Abs (test See Note 0.00-0.10 Clotted s ampleNotified code = 704-7) Nurse Adeolatcsavanah a t 04/02/2022 8:47:15 AM CSTN jerod will recollectFSCorr ected from 0.03 K/uL on 8:51:32 TAX EXPERT by Randa Lorenz. IG Abs (test code See Note 0.00-0.04 Clotted sa mpleNotified = 11000-6) [facility]/02/[facility]22 8:47:15 AM CSTN jerod will recollectFSCorr ected from 0.32 K/uL [HI] on 04/02/22 8:51:32 TAX EXPERT by Randa Lorenz. [facility] Cancer OxbaroBqqrjeigaxry1471-63-73 14:51:34 Test Item Value Reference Range Interpretation Comments Neutrophil % (test See Note 42.0-66.0 Clotted s ampleNotified code = 770-8) Nurse Adeolasavanah a t 04/02/2022 8:47:15 AM CSTCordelia newsome will recollectFSCorr ected from 54.0 % on 04/02 8:51:32 TAX EXPERT by Randa Quintanilla. Lymphocyte % (test See Note 24.0-44.0 Clotted s ampleNotified code = 736-9) Nurse Adeolasavanah a t 04/02/2022 8:47:15 AM CSTN jerod will recollectFSCorr ected from 37.5 % on 04/02 8:51:32 TAX EXPERT by Randa Quintanilla. Monocyte % (test See Note 2.0-7.0 Clotted oralia pleNotified code = 5905-5) Nurse Bettcy at 04/02/2022 8:47:15 AM CSTN jessicae will recollectFSCorr ected from 5.0 % on 8:51:32 TAX EXPERT by Randa Quintanilla. Eosinophil % (test See Note 1.0-4.0 Clotted s ampleNotified code = 713-8) Nurse Adeolasavanah a t 04/02/2022 8:47:15 AM CSTN jerod will recollectFSCorr ected from 0.8 % [LOW] on 04/02/22 8:51:32 TAX EXPERT by Randa Lorenz. Basophil % (test See Note 0.0-1.0 Clotted oralia pleNotified code = 706-2) Nurse Adeolatcsavanah a t 04/02/2022 8:47:15 AM CSTN jerod will recollectFSCorr ected from 0.2 % on 8:51:32 TAX EXPERT by Randa Quintanilla. IGRE % (test code See Note 0.0-0.4 Clotted sa mpleNotified = 10747-1) Nurse Bettcy at 04/02/2022 8:47:15 AM CSTN jerod will recollectFSIGRE % count includes Metamy elocytes, Myelocytes, and Promyelocytes.I GRE % count includes Metamy elocytes, Myelocytes, and Promyelocytes.C orrected from 2.5 % [HI] on 04/02/22 8:51:32 TAX EXPERT by Randa Lorenz. Neutrophil Abs See Note 1.70-7.30 Clotted sampl eNotified (test code = Nurse Adeolatcsavanah at 04/02/2022 751-8) 8:47:15 AM CSTCordelia newsome will recollectFSCorr ected from 6.86 K/uL on 8:51:32 TAX EXPERT by Randa Lorenz. Lymphocyte Abs See Note 1.00-4.80 Clotted sampl eNotified (test code = Nurse Adeolatcsavanah at 04/02/2022 731-0) 8:47:15 AM CSTCordelia newsome will recollectFSCorr ected from 4.77 K/uL on 8:51:32 TAX EXPERT by Randa Lorenz. Monocyte Abs (test See Note 0.08-0.70 Clotted s ampleNotified code = 742-7) Nurse Adeolatcsavanah a t 04/02/2022 8:47:15 AM CSTCordelia newsome will recollectFSCorr ected from 0.63 K/uL on 8:51:32 TAX EXPERT by Randa Lorenz. Eosinophil Abs See Note 0.04-0.40 Clotted sampl eNotified (test code = Nurse Bettcy at 04/02/2022 711-2) 8:47:15 AM CSTN jerod will recollectFSCorr ected from 0.10 K/uL on 8:51:32 TAX EXPERT by Randa Lorenz. Basophil Abs (test See Note 0.00-0.10 Clotted s ampleNotified code = 704-7) Nurse Bettcy a t 04/02/2022 8:47:15 AM CSTN jerod will recollectFSCorr ected from 0.03 K/uL on 8:51:32 TAX EXPERT by Randa Lorenz. IG Abs (test code See Note 0.00-0.04 Clotted sa mpleNotified = 63739-6) Nurse Bettcy at 04/02/2022 8:47:15 AM CSTN jerod will recollectFSCorr ected from 0.32 K/uL [HI] on 04/02/22 8:51:32 TAX EXPERT by Randa Lorenz. [facility] Cancer [id number] 14:51:34 Test Item Value Reference Range Interpretation Comments Neutrophil % (test See Note 42.0-66.0 Clotted s ampleNotified code = 770-8) Nurse Bettcy a t 04/02/2022 8:47:15 AM CSTN jerod will recollectFSCorr ected from 54.0 % on 04/02 8:51:32 TAX EXPERT by Randa Quintanilla. Lymphocyte % (test See Note 24.0-44.0 Clotted s ampleNotified code = 736-9) Nurse Bettcy a t 04/02/2022 8:47:15 AM CSTN jerod will recollectFSCorr ected from 37.5 % on 04/02 8:51:32 TAX EXPERT by Randa Quintanilla. Monocyte % (test See Note 2.0-7.0 Clotted oralia pleNotified code = 5905-5) Nurse Bettcy at 04/02/2022 8:47:15 AM CSTN jerod will recollectFSCorr ected from 5.0 % on 8:51:32 TAX EXPERT by Randa Quintanilla. Eosinophil % (test See Note 1.0-4.0 Clotted s ampleNotified code = 713-8) Nurse Troy a t 04/02/2022 8:47:15 AM CSTN jerod will recollectFSCorr ected from 0.8 % [LOW] on 04/02/22 8:51:32 TAX EXPERT by Randa Lorenz. Basophil % (test See Note 0.0-1.0 Clotted oralia pleNotified code = 706-2) Nurse Troy a t 04/02/2022 8:47:15 AM CSTN jerod will recollectFSCorr ected from 0.2 % on 8:51:32 TAX EXPERT by Randa Quintanilla. IGRE % (test code See Note 0.0-0.4 Clotted sa mpleNotified = 78940-4) Nurse Troy at 04/02/2022 8:47:15 AM CSTN jerod will recollectFSIGRE % count includes Metamy elocytes, Myelocytes, and Promyelocytes.I GRE % count includes Metamy elocytes, Myelocytes, and Promyelocytes.C orrected from 2.5 % [HI] on 04/02/22 8:51:32 TAX EXPERT by Randa Lorenz. Neutrophil Abs See Note 1.70-7.30 Clotted sampl eNotified (test code = Nurse Troy at 04/02/2022 751-8) 8:47:15 AM CSTN jerod will recollectFSCorr ected from 6.86 K/uL on 8:51:32 TAX EXPERT by Randa Lorenz. Lymphocyte Abs See Note 1.00-4.80 Clotted sampl eNotified (test code = Nurse Troy at 04/02/2022 731-0) 8:47:15 AM CSTN jerod will recollectFSCorr ected from 4.77 K/uL on 8:51:32 TAX EXPERT by Randa Lorenz. Monocyte Abs (test See Note 0.08-0.70 Clotted s ampleNotified code = 742-7) Nurse Troy a t 04/02/2022 8:47:15 AM CSTN jerod will recollectFSCorr ected from 0.63 K/uL on 8:51:32 TAX EXPERT by Randa Lorenz. Eosinophil Abs See Note 0.04-0.40 Clotted sampl eNotified (test code = Nurse Bettcy at 04/02/2022 711-2) 8:47:15 AM CSTN jerod will recollectFSCorr ected from 0.10 K/uL on 8:51:32 TAX EXPERT by Randa Lorenz. Basophil Abs (test See Note 0.00-0.10 Clotted s ampleNotified code = 704-7) Nurse Adeolatcsavanah a t 04/02/2022 8:47:15 AM CSTN jerod will recollectFSCorr ected from 0.03 K/uL on 8:51:32 TAX EXPERT by Randa Lorenz. IG Abs (test code See Note 0.00-0.04 Clotted sa mpleNotified = 71203-0) Nurse Troy at 04/02/2022 8:47:15 AM CSTCordelia newsome will recollectFSCorr ected from 0.32 K/uL [HI] on 04/02/22 8:51:32 TAX EXPERT by Randa Lorenz. [facility] Cancer [id number] 14:51:34 Test Item Value Reference Range Interpretation Comments Neutrophil % (test See Note 42.0-66.0 Clotted s ampleNotified code = 770-8) Nurse Adeolatcsavanah a t 04/02/2022 8:47:15 AM CSTN jerod will recollectFSCorr ected from 54.0 % on 04/02 8:51:32 TAX EXPERT by Randa Quintanilla. Lymphocyte % (test See Note 24.0-44.0 Clotted s ampleNotified code = 736-9) Nurse Adeolatcsavanah a t 04/02/2022 8:47:15 AM CSTN jerod will recollectFSCorr ected from 37.5 % on 04/02 8:51:32 TAX EXPERT by Randa Quintanilla. Monocyte % (test See Note 2.0-7.0 Clotted oralia pleNotified code = 5905-5) Nurse Bettcy at 04/02/2022 8:47:15 AM CSTN jerod will recollectFSCorr ected from 5.0 % on 8:51:32 TAX EXPERT by Randa Quintanilla. Eosinophil % (test See Note 1.0-4.0 Clotted s ampleNotified code = 713-8) Nurse Bettcy a t 04/02/2022 8:47:15 AM CSTN jerod will recollectFSCorr ected from 0.8 % [LOW] on 04/02/22 8:51:32 TAX EXPERT by Randa Lorenz. Basophil % (test See Note 0.0-1.0 Clotted oralia pleNotified code = 706-2) Nurse Bettcy a t 04/02/2022 8:47:15 AM CSTN jerod will recollectFSCorr ected from 0.2 % on 8:51:32 TAX EXPERT by Randa Quintanilla. IGRE % (test code See Note 0.0-0.4 Clotted sa mpleNotified = 47203-9) Nurse Bettcy at 04/02/2022 8:47:15 AM CSTN jerod will recollectFSIGRE % count includes Metamy elocytes, Myelocytes, and Promyelocytes.I GRE % count includes Metamy elocytes, Myelocytes, and Promyelocytes.C orrected from 2.5 % [HI] on 04/02/22 8:51:32 TAX EXPERT by Randa Lorenz. Neutrophil Abs See Note 1.70-7.30 Clotted sampl eNotified (test code = Nurse Bettcy at 04/02/2022 751-8) 8:47:15 AM CSTCordelia newsome will recollectFSCorr ected from 6.86 K/uL on 8:51:32 TAX EXPERT by Randa Lorenz. Lymphocyte Abs See Note 1.00-4.80 Clotted sampl eNotified (test code = Nurse Bettcy at 04/02/2022 731-0) 8:47:15 AM CSTN jerod will recollectFSCorr ected from 4.77 K/uL on 8:51:32 TAX EXPERT by Randa Lorenz. Monocyte Abs (test See Note 0.08-0.70 Clotted s ampleNotified code = 742-7) Nurse Bettcy a t 04/02/2022 8:47:15 AM CSTN jerod will recollectFSCorr ected from 0.63 K/uL on 8:51:32 TAX EXPERT by Randa Lorenz. Eosinophil Abs See Note 0.04-0.40 Clotted sampl eNotified (test code = Nurse Bettcy at 04/02/2022 711-2) 8:47:15 AM CSTN jerod will recollectFSCorr ected from 0.10 K/uL on 8:51:32 TAX EXPERT by Randa Lorenz. Basophil Abs (test See Note 0.00-0.10 Clotted s ampleNotified code = 704-7) Nurse Bettcy a t 04/02/2022 8:47:15 AM CSTN jerod will recollectFSCorr ected from 0.03 K/uL on 8:51:32 TAX EXPERT by Randa Lorenz. IG Abs (test code See Note 0.00-0.04 Clotted sa mpleNotified = 36482-2) Nurse Bettcy at 04/02/2022 8:47:15 AM CSTN jerod will recollectFSCorr ected from 0.32 K/uL [HI] on 04/02/22 8:51:32 TAX EXPERT by Randa Lorenz. [facility] Cancer [id number] 14:51:34 Test Item Value Reference Range Interpretation Comments Neutrophil % (test See Note 42.0-66.0 Clotted s ampleNotified code = 770-8) Nurse Bettcy a t 04/02/2022 8:47:15 AM CSTN jerod will recollectFSCorr ected from 54.0 % on 04/02 8:51:32 TAX EXPERT by Randa Quintanilla. Lymphocyte % (test See Note 24.0-44.0 Clotted s ampleNotified code = 736-9) Nurse Bettcy a t 04/02/2022 8:47:15 AM CSTN jerod will recollectFSCorr ected from 37.5 % on 04/02 8:51:32 TAX EXPERT by Randa Quintanilla. Monocyte % (test See Note 2.0-7.0 Clotted oralia pleNotified code = 5905-5) Nurse Bettcy at 04/02/2022 8:47:15 AM CSTCordelia newsome will recollectFSCorr ected from 5.0 % on 8:51:32 TAX EXPERT by Randa Quintanilla. Eosinophil % (test See Note 1.0-4.0 Clotted s ampleNotified code = 713-8) Nurse Bettcy a t 04/02/2022 8:47:15 AM CSTCordelia newsome will recollectFSCorr ected from 0.8 % [LOW] on 04/02/22 8:51:32 TAX EXPERT by Randa Lorenz. Basophil % (test See Note 0.0-1.0 Clotted oralia pleNotified code = 706-2) Nurse Bettcy a t 04/02/2022 8:47:15 AM CSTCordelia newsome will recollectFSCorr ected from 0.2 % on 8:51:32 TAX EXPERT by Randa Quintanilla. IGRE % (test code See Note 0.0-0.4 Clotted sa mpleNotified = 77550-7) Nurse Bettcy at 04/02/2022 8:47:15 AM CSTN jerod will recollectFSIGRE % count includes Metamy elocytes, Myelocytes, and Promyelocytes.I GRE % count includes Metamy elocytes, Myelocytes, and Promyelocytes.C orrected from 2.5 % [HI] on 04/02/22 8:51:32 TAX EXPERT by Randa Lorenz. Neutrophil Abs See Note 1.70-7.30 Clotted sampl eNotified (test code = Nurse Bettcy at 04/02/2022 751-8) 8:47:15 AM CSTN urse will recollectFSCorr ected from 6.86 K/uL on 8:51:32 TAX EXPERT by Randa Lorenz. Lymphocyte Abs See Note 1.00-4.80 Clotted sampl eNotified (test code = Nurse Bettcy at 04/02/2022 731-0) 8:47:15 AM CSTN urse will recollectFSCorr ected from 4.77 K/uL on 8:51:32 TAX EXPERT by Randa Lorenz. Monocyte Abs (test See Note 0.08-0.70 Clotted s ampleNotified code = 742-7) Nurse Bettcy a t 04/02/2022 8:47:15 AM CSTN urse will recollectFSCorr ected from 0.63 K/uL on 8:51:32 TAX EXPERT by Randa Lorenz. Eosinophil Abs See Note 0.04-0.40 Clotted sampl eNotified (test code = Nurse Bettcy at 04/02/2022 711-2) 8:47:15 AM CSTN urse will recollectFSCorr ected from 0.10 K/uL on 8:51:32 TAX EXPERT by Randa Lorenz. Basophil Abs (test See Note 0.00-0.10 Clotted s ampleNotified code = 704-7) Nurse Bettcy a t 04/02/2022 8:47:15 AM CSTN urse will recollectFSCorr ected from 0.03 K/uL on 8:51:32 TAX EXPERT by Randa Lorenz. IG Abs (test code See Note 0.00-0.04 Clotted sa mpleNotified = 25996-1) Nurse Bettcy at 04/02/2022 8:47:15 AM CSTN urse will recollectFSCorr ected from 0.32 K/uL [HI] on 04/02/22 8:51:32 TAX EXPERT by Randa Lorenz. [facility] Cancer [id number] 14:51:34 Test Item Value Reference Range Interpretation Comments Neutrophil % (test See Note 42.0-66.0 Clotted s ampleNotified code = 770-8) Nurse Bettcy a t 04/02/2022 8:47:15 AM CSTN jerod will recollectFSCorr ected from 54.0 % on 04/02 8:51:32 TAX EXPERT by Randa Quintanilla. Lymphocyte % (test See Note 24.0-44.0 Clotted s ampleNotified code = 736-9) Nurse Bettcy a t 04/02/2022 8:47:15 AM CSTN jerod will recollectFSCorr ected from 37.5 % on 04/02 8:51:32 TAX EXPERT by Randa Quintanilla. Monocyte % (test See Note 2.0-7.0 Clotted oralia pleNotified code = 5905-5) Nurse Bettcy at 04/02/2022 8:47:15 AM CSTN jerod will recollectFSCorr ected from 5.0 % on 8:51:32 TAX EXPERT by Randa Quintanilla. Eosinophil % (test See Note 1.0-4.0 Clotted s ampleNotified code = 713-8) Nurse Bettcy a t 04/02/2022 8:47:15 AM CSTN jerod will recollectFSCorr ected from 0.8 % [LOW] on 04/02/22 8:51:32 TAX EXPERT by Randa Lorenz. Basophil % (test See Note 0.0-1.0 Clotted oralia pleNotified code = 706-2) Nurse Bettcy a t 04/02/2022 8:47:15 AM CSTN jerod will recollectFSCorr ected from 0.2 % on 8:51:32 TAX EXPERT by Randa Quintanilla. IGRE % (test code See Note 0.0-0.4 Clotted sa mpleNotified = 19498-6) Nurse Adeolatcsavanah at 04/02/2022 8:47:15 AM CSTN jerod will recollectFSIGRE % count includes Metamy elocytes, Myelocytes, and Promyelocytes.I GRE % count includes Metamy elocytes, Myelocytes, and Promyelocytes.C orrected from 2.5 % [HI] on 04/02/22 8:51:32 TAX EXPERT by Randa Lorenz. Neutrophil Abs See Note 1.70-7.30 Clotted sampl eNotified (test code = Nurse Bettcy at 04/02/2022 751-8) 8:47:15 AM CSTN jerod will recollectFSCorr ected from 6.86 K/uL on 8:51:32 TAX EXPERT by Randa Lorenz. Lymphocyte Abs See Note 1.00-4.80 Clotted sampl eNotified (test code = Nurse Bettcy at 04/02/2022 731-0) 8:47:15 AM CSTN jerod will recollectFSCorr ected from 4.77 K/uL on 8:51:32 TAX EXPERT by Randa Lorenz. Monocyte Abs (test See Note 0.08-0.70 Clotted s ampleNotified code = 742-7) Nurse Adeolatcy a t 04/02/2022 8:47:15 AM CSTN jerod will recollectFSCorr ected from 0.63 K/uL on 8:51:32 TAX EXPERT by Randa Lorenz. Eosinophil Abs See Note 0.04-0.40 Clotted sampl eNotified (test code = Nurse Bettcy at 04/02/2022 711-2) 8:47:15 AM CSTN jerod will recollectFSCorr ected from 0.10 K/uL on 8:51:32 TAX EXPERT by Randa Lorenz. Basophil Abs (test See Note 0.00-0.10 Clotted s ampleNotified code = 704-7) Nurse Bettcy a t 04/02/2022 8:47:15 AM CSTN urse will recollectFSCorr ected from 0.03 K/uL on 8:51:32 TAX EXPERT by Randa Lorenz. IG Abs (test code See Note 0.00-0.04 Clotted sa mpleNotified = 30730-8) Nurse Adeolasavanah at 04/02/2022 8:47:15 AM CSTN jerod will recollectFSCorr ected from 0.32 K/uL [HI] on 04/02/22 8:51:32 TAX EXPERT by Randa Lorenz. [facility] 14:51[facility]34 Test Item Value Reference Range Interpretation Comments Neutrophil % (test See Note 42.0-66.0 Clotted s ampleNotified code = 770-8) [facility] 04/02/2022 8:47:15 AM CSTN jerod will recollectFSCorr ected from 54.0 % on 04/02 8:51:32 TAX EXPERT by Randa Quintanilla. Lymphocyte % (test See Note 24.0-44.0 Clotted s ampleNotified code = 736-9) Nurse [facility] a t 04/02/2022 8:47:15 AM CSTN jerod will recollectFSCorr ected from 37.5 % on 04/02 8:51:32 TAX EXPERT by Randa Quinatnilla. Monocyte % (test See Note 2.0-7.0 Clotted oralia pleNotified code = 5905-5) Nurse [facility] at 04/02/2022 8:47:15 AM CSTN jerod will recollectFSCorr ected from 5.0 % on 8:51:32 TAX EXPERT by Randa Quintanilla. Eosinophil % (test See Note 1.0-4.0 Clotted s ampleNotified code = 713-8) Nurse [facility] a t 04/02/2022 8:47:15 AM CSTN jerod will recollectFSCorr ected from 0.8 % [LOW] on 04/02/22 8:51:32 TAX EXPERT by Randa Lorenz. Basophil % (test See Note 0.0-1.0 Clotted oralia pleNotified code = 706-2) Nurse Bettcy a t 04/02/2022 8:47:15 AM CSTCordelia newsome will recollectFSCorr ected from 0.2 % on 8:51:32 TAX EXPERT by Randa Quintanilla. IGRE % (test code See Note 0.0-0.4 Clotted sa mpleNotified = 46427-4) Nurse Bettcy at 04/02/2022 8:47:15 AM CSTCordelia newsome will recollectFSIGRE % count includes Metamy elocytes, Myelocytes, and Promyelocytes.I GRE % count includes Metamy elocytes, Myelocytes, and Promyelocytes.C orrected from 2.5 % [HI] on 04/02/22 8:51:32 TAX EXPERT by Randa Lorenz. Neutrophil Abs See Note 1.70-7.30 Clotted sampl eNotified (test code = Nurse Adeolatcsavanah at 04/02/2022 751-8) 8:47:15 AM CHRIS newsome will recollectFSCorr ected from 6.86 K/uL on 8:51:32 TAX EXPERT by Randa Lorenz. Lymphocyte Abs See Note 1.00-4.80 Clotted sampl eNotified (test code = Nurse Bettcsavanah at 04/02/2022 731-0) 8:47:15 AM CHRIS newsome will recollectFSCorr ected from 4.77 K/uL on 8:51:32 TAX EXPERT by Randa Lorenz. Monocyte Abs (test See Note 0.08-0.70 Clotted s ampleNotified code = 742-7) Nurse Bettcy a t 04/02/2022 8:47:15 AM CHRIS newsome will recollectFSCorr ected from 0.63 K/uL on 8:51:32 TAX EXPERT by Randa Lorenz. Eosinophil Abs See Note 0.04-0.40 Clotted sampl eNotified (test code = Nurse Adeolatcsavanah at 04/02/2022 711-2) 8:47:15 AM CHRIS newsome will recollectFSCorr ected from 0.10 K/uL on 8:51:32 TAX EXPERT by Randa Lorenz. Basophil Abs (test See Note 0.00-0.10 Clotted s ampleNotified code = 704-7) Nurse Bettcy a t 04/02/2022 8:47:15 AM CSTCordelia newsome will recollectFSCorr ected from 0.03 K/uL on 8:51:32 TAX EXPERT by Randa Lorenz. IG Abs (test code See Note 0.00-0.04 Clotted sa mpleNotified = 28958-5) Nurse Bettcy at 04/02/2022 8:47:15 AM CSTCordelia newsome will recollectFSCorr ected from 0.32 K/uL [HI] on 04/02/22 8:51:32 TAX EXPERT by Randa Lorenz. [facility] [place].[id number] 14:51:33 Test Item Value Reference Range Interpretation Comments WBC (test code = See Note 4.0-11.0 A Clotted oralia pleNotified 6690-2) Nurse Bettcy at 04/02/2022 8:47:15 AM CSTCordelia newsome will recollectFSCorr ected from 12.7 K/uL [HI] on 04/02/22 8:51:32 TAX EXPERT by Randa Lorenz. RBC (test code = See Note See_Comment A Clotted oralia pleNotified 789-8) Nurse Bettcy at 04/02/2022 8:47:15 AM CHRIS newsome will recollectFSCorr ected from 5.04 M/uL on 8:51:32 TAX EXPERT by Randa Lorenz. [Aut omated message] The sy stem which generated this result transmitted ref erence range: 4.00 - 5 .50 M/uL. The reference r ashley was not used to int erpret this result as nehemiah l/abnormal. Hgb (test code = See Note See_Comment A Clotted oralia pleNotified 718-7) Nurse Bettcy at 04/02/2022 8:47:15 AM CSTCordelia newsome will recollectFSCorr ected from 13.2 gm/dL on 0 04/02/22 8:51:32 TAX EXPERT by Randa Lorenz. [Aut omated message] The sy stem which generated this result transmitted ref erence range: 12.0 - 1 6.0 gm/dL. The reference r ashley was not used to int erpret this result as nehemiah l/abnormal. Hct (test code = See Note 37.0-47.0 A Clotted oralia pleNotified 4544-3) Nurse Bettcy at 04/02/2022 8:47:15 AM CSTN jerod will recollectFSCorr ected from 41.2 % on 04/02 8:51:32 TAX EXPERT by Randa Quintanilla. MCV (test code = See Note 82-98 A Clotted oralia pleNotified 787-2) Nurse Bettcy at 04/02/2022 8:47:15 AM CSTCordelia newsome will recollectFSCorr ected from 82 fL on 8:51:32 TAX EXPERT by Randa Quintanilla. MCH (test code = See Note 27.0-31.0 A Clotted oralia pleNotified 785-6) Nurse Bettcy at 04/02/2022 8:47:15 AM CSTCordelia newsome will recollectFSCorr ected from 26.2 pg [LOW] o n 04/02/22 8:51:32 TAX EXPERT by Randa Lorenz. MCHC (test code = See Note See_Comment A Clotted sa mpleNotified 786-4) Nurse Bettcy at 04/02/2022 8:47:15 AM CSTCordelia newsome will recollectFSCorr ected from 32.0 gm/dL on 0 04/02/22 8:51:32 TAX EXPERT by Randa Lorenz. [Aut omated message] The sy stem which generated this result transmitted ref erence range: 31.0 - 3 6.0 gm/dL. The reference r ashley was not used to int erpret this result as nehemiah l/abnormal. RDW-SD (test code = See Note 35.1-46.3 A Clotted sampleNotified 85047-1) Nurse Bettcy at 04/02/2022 8:47:15 AM CSTCordelia newsome will recollectFSCorr ected from 42.7 fL on 09/15 8:51:32 TAX EXPERT by Randa Lorenz. RDW-CV (test code = See Note 12.0-15.5 A Clotted sampleNotified 788-0) Nurse Bettcy at 04/02/2022 8:47:15 AM CSTCordelia newsome will recollectFSCorr ected from 15.1 % on 04/02 8:51:32 TAX EXPERT by Randa Quintanilla. Platelet count (test See Note 140-440 A Clotted sampleNotified code = 777-3) Nurse Bettcy a t 04/02/2022 8:47:15 AM CSTCordelia newsome will recollectFS MPV (test code = See Note 4.0-10.4 Clotted oralia pleNotified 00968-1) Nurse Bettcy at 04/02/2022 8:47:15 AM CSTCordelia newsome will recollectFS INRBC (test code = See Note See_Comment A Clotted s ampleNotified 23507-5) Nurse Bettcy at 04/02/2022 8:47:15 AM CSTCordelia newsome will recollectFSThe INRBC (instrument NRB C) value reflects the en umerationof nucleated red b lood cells contained in a 200uL sampleof whole blood analyzed by the instrument. Thi s value maydiffer from the NRBC value reported in a manual differential,wh ich is based on a 100 cell differential.Th e INRBC (instrument NRB C) value reflects the en umerationof nucleated red b lood cells contained in a 200uL sampleof whole blood analyzed by the instrument. Thi s value maydiffer from the NRBC value reported in a manual differential,wh ich is based on a 100 cell differential.Co rrected from 0.0 % on 0 04/02/22 8:51:32 TAX EXPERT by Randa Lorenz. [Aut omated message] The sy stem which generated this result transmitted ref erence range: %. The r eference range was not u sed to interpret this result as normal/abnormal . Lab Interpretation Abnormal (test code = 76738-3) [facility] [place].[id number] 14:51:33 Test Item Value Reference Range Interpretation Comments WBC (test code = See Note 4.0-11.0 A Clotted oralia pleNotified 6690-2) Nurse Bettcy at 04/02/2022 8:47:15 AM CSTCordelia newsome will recollectFSCorr ected from 12.7 K/uL [HI] on 04/02/22 8:51:32 TAX EXPERT by Randa Lorenz. RBC (test code = See Note See_Comment A Clotted oralia pleNotified 789-8) Nurse Bettcy at 04/02/2022 8:47:15 AM CSTCordelia newsome will recollectFSCorr ected from 5.04 M/uL on 8:51:32 TAX EXPERT by Randa Lorenz. [Aut omated message] The sy stem which generated this result transmitted ref erence range: 4.00 - 5 .50 M/uL. The reference r ashley was not used to int erpret this result as nehemiah l/abnormal. Hgb (test code = See Note See_Comment A Clotted oralia pleNotified 718-7) Nurse Bettcy at 04/02/2022 8:47:15 AM CHRIS newsome will recollectFSCorr ected from 13.2 gm/dL on 0 04/02/22 8:51:32 TAX EXPERT by Randa Lorenz. [Aut omated message] The sy stem which generated this result transmitted ref erence range: 12.0 - 1 6.0 gm/dL. The reference r ashley was not used to int erpret this result as nehemiah l/abnormal. Hct (test code = See Note 37.0-47.0 A Clotted oralia pleNotified 4544-3) Nurse Bettcy at 04/02/2022 8:47:15 AM CHRIS newsome will recollectFSCorr ected from 41.2 % on 04/02 8:51:32 TAX EXPERT by Randa Quintanilla. MCV (test code = See Note 82-98 A Clotted oralia pleNotified 787-2) Nurse Bettcy at 04/02/2022 8:47:15 AM CSTCordelia newsome will recollectFSCorr ected from 82 fL on 8:51:32 TAX EXPERT by Randa Quintanilla. MCH (test code = See Note 27.0-31.0 A Clotted oralia pleNotified 785-6) Nurse Bettcy at 04/02/2022 8:47:15 AM CSTN jerod will recollectFSCorr ected from 26.2 pg [LOW] o n 04/02/22 8:51:32 TAX EXPERT by Randa Lornez. MCHC (test code = See Note See_Comment A Clotted sa mpleNotified 786-4) Nurse Bettcy at 04/02/2022 8:47:15 AM CSTCordelia newsome will recollectFSCorr ected from 32.0 gm/dL on 0 04/02/22 8:51:32 TAX EXPERT by Randa Lorenz. [Aut omated message] The sy stem which generated this result transmitted ref erence range: 31.0 - 3 6.0 gm/dL. The reference r ashley was not used to int erpret this result as nehemiah l/abnormal. RDW-SD (test code = See Note 35.1-46.3 A Clotted sampleNotified 61457-7) Nurse Bettcy at 04/02/2022 8:47:15 AM CSTCordelia newsome will recollectFSCorr ected from 42.7 fL on 09/15 8:51:32 TAX EXPERT by Randa Lorenz. RDW-CV (test code = See Note 12.0-15.5 A Clotted sampleNotified 788-0) Nurse Bettcy at 04/02/2022 8:47:15 AM CSTCordelia newsome will recollectFSCorr ected from 15.1 % on 04/02 8:51:32 TAX EXPERT by Randa Quintanilla. Platelet count (test See Note 140-440 A Clotted sampleNotified code = 777-3) Nurse Bettcy a t 04/02/2022 8:47:15 AM CSTCordelia newsome will recollectFS MPV (test code = See Note 4.0-10.4 Clotted oralia pleNotified 47799-1) Nurse Bettcy at 04/02/2022 8:47:15 AM CSTCordelia newsome will recollectFS INRBC (test code = See Note See_Comment A Clotted s ampleNotified 71693-2) Nurse Bettcy at 04/02/2022 8:47:15 AM CSTCordelia newsome will recollectFSThe INRBC (instrument NRB C) value reflects the en umerationof nucleated red b lood cells contained in a 200uL sampleof whole blood analyzed by the instrument. Thi s value maydiffer from the NRBC value reported in a manual differential,wh ich is based on a 100 cell differential.Th e INRBC (instrument NRB C) value reflects the en umerationof nucleated red b lood cells contained in a 200uL sampleof whole blood analyzed by the instrument. Thi s value maydiffer from the NRBC value reported in a manual differential,wh ich is based on a 100 cell differential.Co rrected from 0.0 % on 0 04/02/22 8:51:32 TAX EXPERT by Randa Lorenz. [Aut omated message] The sy stem which generated this result transmitted ref erence range: %. The r eference range was not u sed to interpret this result as normal/abnormal . Lab Interpretation Abnormal (test code = 62271-6) [facility] [place].[id number] 14:51:33 Test Item Value Reference Range Interpretation Comments WBC (test code = See Note 4.0-11.0 A Clotted oralia pleNotified 6690-2) Nurse Bettcy at 04/02/2022 8:47:15 AM CSTCordelia newsome will recollectFSCorr ected from 12.7 K/uL [HI] on 04/02/22 8:51:32 TAX EXPERT by Randa Lorenz. RBC (test code = See Note See_Comment A Clotted oralia pleNotified 789-8) Nurse Bettcy at 04/02/2022 8:47:15 AM CSTCordelia newsome will recollectFSCorr ected from 5.04 M/uL on 8:51:32 TAX EXPERT by Randa Lorenz. [Aut omated message] The sy stem which generated this result transmitted ref erence range: 4.00 - 5 .50 M/uL. The reference r ashley was not used to int erpret this result as nehemiah l/abnormal. Hgb (test code = See Note See_Comment A Clotted oralia pleNotified 718-7) Nurse Bettcy at 04/02/2022 8:47:15 AM CSTN jerod will recollectFSCorr ected from 13.2 gm/dL on 0 04/02/22 8:51:32 TAX EXPERT by Randa Lorenz. [Aut omated message] The sy stem which generated this result transmitted ref erence range: 12.0 - 1 6.0 gm/dL. The reference r ashley was not used to int erpret this result as nehemiah l/abnormal. Hct (test code = See Note 37.0-47.0 A Clotted oralia pleNotified 4544-3) Nurse Bettcy at 04/02/2022 8:47:15 AM CSTCordelia newsome will recollectFSCorr ected from 41.2 % on 04/02 8:51:32 TAX EXPERT by Randa Quintanilla. MCV (test code = See Note 82-98 A Clotted oralia pleNotified 787-2) Nurse Bettcy at 04/02/2022 8:47:15 AM CSTN jerod will recollectFSCorr ected from 82 fL on 8:51:32 TAX EXPERT by Randa Quintanilla. MCH (test code = See Note 27.0-31.0 A Clotted oralia pleNotified 785-6) Nurse Bettcy at 04/02/2022 8:47:15 AM CSTN jerod will recollectFSCorr ected from 26.2 pg [LOW] o n 04/02/22 8:51:32 TAX EXPERT by Randa Lorenz. MCHC (test code = See Note See_Comment A Clotted sa mpleNotified 786-4) Nurse Bettcy at 04/02/2022 8:47:15 AM CSTN jessicae will recollectFSCorr ected from 32.0 gm/dL on 0 04/02/22 8:51:32 TAX EXPERT by Randa Lorenz. [Aut omated message] The sy stem which generated this result transmitted ref erence range: 31.0 - 3 6.0 gm/dL. The reference r ashley was not used to int erpret this result as nehemiah l/abnormal. RDW-SD (test code = See Note 35.1-46.3 A Clotted sampleNotified 03003-8) Nurse Bettcy at 04/02/2022 8:47:15 AM CSTCordelia newsome will recollectFSCorr ected from 42.7 fL on 09/15 8:51:32 TAX EXPERT by Randa Lorenz. RDW-CV (test code = See Note 12.0-15.5 A Clotted sampleNotified 788-0) Nurse Bettcy at 04/02/2022 8:47:15 AM CSTCordelia newsome will recollectFSCorr ected from 15.1 % on 04/02 8:51:32 TAX EXPERT by Randa Quintanilla. Platelet count (test See Note 140-440 A Clotted sampleNotified code = 777-3) Nurse Bettcy a t 04/02/2022 8:47:15 AM CSTCordelia newsome will recollectFS MPV (test code = See Note 4.0-10.4 Clotted oralia pleNotified 40055-5) Nurse Bettcy at 04/02/2022 8:47:15 AM CSTCordelia newsome will recollectFS INRBC (test code = See Note See_Comment A Clotted s ampleNotified 58211-3) Nurse Bettcy at 04/02/2022 8:47:15 AM CSTCordelia newsome will recollectFSThe INRBC (instrument NRB C) value reflects the en umerationof nucleated red b lood cells contained in a 200uL sampleof whole blood analyzed by the instrument. Thi s value maydiffer from the NRBC value reported in a manual differential,wh ich is based on a 100 cell differential.Th e INRBC (instrument NRB C) value reflects the en umerationof nucleated red b lood cells contained in a 200uL sampleof whole blood analyzed by the instrument. Thi s value maydiffer from the NRBC value reported in a manual differential,wh ich is based on a 100 cell differential.Co rrected from 0.0 % on 0 04/02/22 8:51:32 TAX EXPERT by Randa Lorenz. [Aut omated message] The sy stem which generated this result transmitted ref erence range: %. The r eference range was not u sed to interpret this result as normal/abnormal . Lab Interpretation Abnormal (test code = 32234-2) [facility] [place].[id number] 14:51:33 Test Item Value Reference Range Interpretation Comments WBC (test code = See Note 4.0-11.0 A Clotted [facility] pleNotified 6690-2) Nurse Bettcy at 04/02/2022 8:47:15 AM CSTCordelia newsome will recollectFSCorr ected from 12.7 K/uL [HI] on 04/02/22 8:51:32 TAX EXPERT by Randa Lorenz. RBC (test code = See Note See_Comment A Clotted oralia pleNotified 789-8) Nurse Bettcy at 04/02/2022 8:47:15 AM CSTCordelia newsome will recollectFSCorr ected from 5.04 M/uL on 8:51:32 TAX EXPERT by Randa Lorenz. [Aut omated message] The sy stem which generated this result transmitted ref erence range: 4.00 - 5 .50 M/uL. The reference r ashley was not used to int erpret this result as nehemiah l/abnormal. Hgb (test code = See Note See_Comment A Clotted [facility] pleNotified 718-7) Nurse Bettcy at 04/02/2022 8:47:15 AM CSTCordelia newsome will recollectFSCorr ected from 13.2 gm/dL on 0 04/02/22 8:51:32 TAX EXPERT by Randa Lorenz. [Aut omated message] The sy stem which generated this result transmitted ref erence range: 12.0 - 1 6.0 gm/dL. The reference r ashley was not used to int erpret this result as nehemiah l/abnormal. Hct (test code = See Note 37.0-47.0 A Clotted oralia pleNotified 4544-3) Nurse Bettcy at 04/02/2022 8:47:15 AM CSTN jerod will recollectFSCorr ected from 41.2 % on 04/02 8:51:32 TAX EXPERT by Randa Quintanilla. MCV (test code = See Note 82-98 A Clotted oralia pleNotified 787-2) Nurse Bettcy at 04/02/2022 8:47:15 AM CSTN jerod will recollectFSCorr ected from 82 fL on 8:51:32 TAX EXPERT by Randa Quintanilla. MCH (test code = See Note 27.0-31.0 A Clotted oralia pleNotified 785-6) Nurse Bettcy at 04/02/2022 8:47:15 AM CSTCordelia newsome will recollectFSCorr ected from 26.2 pg [LOW] o n 04/02/22 8:51:32 TAX EXPERT by Randa Lorenz. MCHC (test code = See Note See_Comment A Clotted sa mpleNotified 786-4) Nurse Bettcy at 04/02/2022 8:47:15 AM CSTCordelia newsome will recollectFSCorr ected from 32.0 gm/dL on 0 04/02/22 8:51:32 TAX EXPERT by Randa Lorenz. [Aut omated message] The sy stem which generated this result transmitted ref erence range: 31.0 - 3 6.0 gm/dL. The reference r ashley was not used to int erpret this result as nehemiah l/abnormal. RDW-SD (test code = See Note 35.1-46.3 A Clotted sampleNotified 39033-9) Nurse Bettcy at 04/02/2022 8:47:15 AM CSTCordelia newsome will recollectFSCorr ected from 42.7 fL on 09/15 8:51:32 TAX EXPERT by Randa Lorenz. RDW-CV (test code = See Note 12.0-15.5 A Clotted sampleNotified 788-0) Nurse Bettcy at 04/02/2022 8:47:15 AM CSTCordelia newsome will recollectFSCorr ected from 15.1 % on 04/02 8:51:32 TAX EXPERT by Randa Quintanilla. Platelet count (test See Note 140-440 A Clotted sampleNotified code = 777-3) Nurse Bettcy a t 04/02/2022 8:47:15 AM CSTCordelia newsome will recollectFS MPV (test code = See Note 4.0-10.4 Clotted oralia pleNotified 99951-6) Nurse Bettcy at 04/02/2022 8:47:15 AM CSTCordelia newsome will recollectFS INRBC (test code = See Note See_Comment A Clotted s ampleNotified 91767-6) Nurse Bettcy at 04/02/2022 8:47:15 AM CSTCordelia newsome will recollectFSThe INRBC (instrument NRB C) value reflects the en umerationof nucleated red b lood cells contained in a 200uL sampleof whole blood analyzed by the instrument. Thi s value maydiffer from the NRBC value reported in a manual differential,wh ich is based on a 100 cell differential.Th e INRBC (instrument NRB C) value reflects the en umerationof nucleated red b lood cells contained in a 200uL sampleof whole blood analyzed by the instrument. Thi s value maydiffer from the NRBC value reported in a manual differential,wh ich is based on a 100 cell differential.Co rrected from 0.0 % on 0 04/02/22 8:51:32 TAX EXPERT by Randa Lorenz. [Aut omated message] The sy stem which generated this result transmitted ref erence range: %. The r eference range was not u sed to interpret this result as normal/abnormal . Lab Interpretation Abnormal (test code = 54914-5) [facility] [place].[id number] 14:51:33 Test Item Value Reference Range Interpretation Comments WBC (test code = See Note 4.0-11.0 A Clotted oralia pleNotified 6690-2) Nurse Bettcy at 04/02/2022 8:47:15 AM CSTCordelia newsome will recollectFSCorr ected from 12.7 K/uL [HI] on 04/02/22 8:51:32 TAX EXPERT by Randa Lorenz. RBC (test code = See Note See_Comment A Clotted oralia pleNotified 789-8) Nurse Bettcy at 04/02/2022 8:47:15 AM CSTCordelia newsome will recollectFSCorr ected from 5.04 M/uL on 8:51:32 TAX EXPERT by Randa Lorenz. [Aut omated message] The sy stem which generated this result transmitted ref erence range: 4.00 - 5 .50 M/uL. The reference r ashley was not used to int erpret this result as nehemiah l/abnormal. Hgb (test code = See Note See_Comment A Clotted oralia pleNotified 718-7) Nurse Bettcy at 04/02/2022 8:47:15 AM CSTCordelia newsome will recollectFSCorr ected from 13.2 gm/dL on 0 04/02/22 8:51:32 TAX EXPERT by Randa Lorenz. [Aut omated message] The sy stem which generated this result transmitted ref erence range: 12.0 - 1 6.0 gm/dL. The reference r ashley was not used to int erpret this result as nehemiah l/abnormal. Hct (test code = See Note 37.0-47.0 A Clotted oralia pleNotified 4544-3) Nurse Bettcy at 04/02/2022 8:47:15 AM CSTCordelia newsome will recollectFSCorr ected from 41.2 % on 04/02 8:51:32 TAX EXPERT by Randa Quintanilla. MCV (test code = See Note 82-98 A Clotted oralia pleNotified 787-2) Nurse Bettcy at 04/02/2022 8:47:15 AM CSTCordelia newsome will recollectFSCorr ected from 82 fL on 8:51:32 TAX EXPERT by Randa Quintanilla. MCH (test code = See Note 27.0-31.0 A Clotted oralia pleNotified 785-6) Nurse Bettcy at 04/02/2022 8:47:15 AM CSTN jreod will recollectFSCorr ected from 26.2 pg [LOW] o n 04/02/22 8:51:32 TAX EXPERT by Randa Lorenz. [facility] (test code = See Note See_Comment A Clotted sa mpleNotified 786-4) Nurse Bettcy at 04/02/2022 8:47:15 AM CSTN jerod will recollectFSCorr ected from 32.0 gm/dL on 0 04/02/22 8:51:32 TAX EXPERT by Randa Lorenz. [Aut omated message] The sy stem which generated this result transmitted ref erence range: 31.0 - 3 6.0 gm/dL. The reference r ashley was not used to int erpret this result as nehemiah l/abnormal. RDW-SD (test code = See Note 35.1-46.3 A Clotted sampleNotified 35661-5) Nurse Bettcy at 04/02/2022 8:47:15 AM CSTN jerod will recollectFSCorr ected from 42.7 fL on 09/15 8:51:32 TAX EXPERT by Randa Lorenz. RDW-CV (test code = See Note 12.0-15.5 A Clotted sampleNotified 788-0) Nurse Bettcy at 04/02/2022 8:47:15 AM CSTN jerod will recollectFSCorr ected from 15.1 % on 04/02 8:51:32 TAX EXPERT by Randa Quintanilla. Platelet count (test See Note 140-440 A Clotted sampleNotified code = 777-3) Nurse Bettcy a t 04/02/2022 8:47:15 AM CSTN jessicae will recollectFS MPV (test code = See Note 4.0-10.4 Clotted oralia pleNotified 76474-6) Nurse Bettcy at 04/02/2022 8:47:15 AM CSTN jessicae will recollectFS INRBC (test code = See Note See_Comment A Clotted s ampleNotified 42391-6) Nurse Bettcy at 04/02/2022 8:47:15 AM CSTN jessicae will recollectFSThe INRBC (instrument NRB C) value reflects the en umerationof nucleated red b lood cells contained in a 200uL sampleof whole blood analyzed by the instrument. Thi s value maydiffer from the NRBC value reported in a manual differential,wh ich is based on a 100 cell differential.Th e INRBC (instrument NRB C) value reflects the en umerationof nucleated red b lood cells contained in a 200uL sampleof whole blood analyzed by the instrument. Thi s value maydiffer from the NRBC value reported in a manual differential,wh ich is based on a 100 cell differential.Co rrected from 0.0 % on 0 04/02/22 8:51:32 TAX EXPERT by Randa Lorenz. [Aut omated message] The sy stem which generated this result transmitted ref erence range: %. The r eference range was not u sed to interpret this result as normal/abnormal . Lab Interpretation Abnormal (test code = 35078-9) [facility] [place].[id number] 14:51:33 Test Item Value Reference Range Interpretation Comments WBC (test code = See Note 4.0-11.0 A Clotted oralia pleNotified 6690-2) Nurse Bettcy at 04/02/2022 8:47:15 AM CSTCordelia newsome will recollectFSCorr ected from 12.7 K/uL [HI] on 04/02/22 8:51:32 TAX EXPERT by Randa Lorenz. RBC (test code = See Note See_Comment A Clotted oralia pleNotified 789-8) Nurse Bettcy at 04/02/2022 8:47:15 AM CSTCordelia newsome will recollectFSCorr ected from 5.04 M/uL on 8:51:32 TAX EXPERT by Randa Lorenz. [Aut omated message] The sy stem which generated this result transmitted ref erence range: 4.00 - 5 .50 M/uL. The reference r ashley was not used to int erpret this result as nehemiah l/abnormal. Hgb (test code = See Note See_Comment A Clotted oralia pleNotified 718-7) Nurse Bettcy at 04/02/2022 8:47:15 AM CSTCordelia newsome will recollectFSCorr ected from 13.2 gm/dL on 0 04/02/22 8:51:32 TAX EXPERT by Randa Lorenz. [Aut omated message] The sy stem which generated this result transmitted ref erence range: 12.0 - 1 6.0 gm/dL. The reference r ashley was not used to int erpret this result as nehemiah l/abnormal. Hct (test code = See Note 37.0-47.0 A Clotted oralia pleNotified 4544-3) Nurse Bettcy at 04/02/2022 8:47:15 AM CSTCordelia newsome will recollectFSCorr ected from 41.2 % on 04/02 8:51:32 TAX EXPERT by Randa Quintanilla. MCV (test code = See Note 82-98 A Clotted oralia pleNotified 787-2) Nurse Bettcy at 04/02/2022 8:47:15 AM CSTCordelia newsome will recollectFSCorr ected from 82 fL on 8:51:32 TAX EXPERT by Randa Quintanilla. MCH (test code = See Note 27.0-31.0 A Clotted oralia pleNotified 785-6) Nurse Bettcy at 04/02/2022 8:47:15 AM CSTCordelia newsome will recollectFSCorr ected from 26.2 pg [LOW] o n 04/02/22 8:51:32 TAX EXPERT by Randa Lorenz. MCHC (test code = See Note See_Comment A Clotted sa mpleNotified 786-4) Nurse Bettcy at 04/02/2022 8:47:15 AM CSTCordelia newsome will recollectFSCorr ected from 32.0 gm/dL on 0 04/02/22 8:51:32 TAX EXPERT by Randa Lorenz. [Aut omated message] The sy stem which generated this result transmitted ref erence range: 31.0 - 3 6.0 gm/dL. The reference r ashley was not used to int erpret this result as nehemiah l/abnormal. RDW-SD (test code = See Note 35.1-46.3 A Clotted sampleNotified 11592-1) Nurse Bettcy at 04/02/2022 8:47:15 AM CSTCordelia newsome will recollectFSCorr ected from 42.7 fL on 09/15 8:51:32 TAX EXPERT by Randa Lorenz. RDW-CV (test code = See Note 12.0-15.5 A Clotted sampleNotified 788-0) Nurse Bettcy at 04/02/2022 8:47:15 AM CSTCordelia newsome will recollectFSCorr ected from 15.1 % on 04/02 8:51:32 TAX EXPERT by Randa Quintanilla. Platelet count (test See Note 140-440 A Clotted sampleNotified code = 777-3) Nurse Bettcy a t 04/02/2022 8:47:15 AM CSTCordelia newsome will recollectFS MPV (test code = See Note 4.0-10.4 Clotted oralia pleNotified 10041-9) Nurse Bettcy at 04/02/2022 8:47:15 AM CSTCordelia newsome will recollectFS INRBC (test code = See Note See_Comment A Clotted s ampleNotified 46928-8) Nurse Bettcy at 04/02/2022 8:47:15 AM CSTCordelia newsome will recollectFSThe INRBC (instrument NRB C) value reflects the en umerationof nucleated red b lood cells contained in a 200uL sampleof whole blood analyzed by the instrument. Thi s value maydiffer from the NRBC value reported in a manual differential,wh ich is based on a 100 cell differential.Th e INRBC (instrument NRB C) value reflects the en umerationof nucleated red b lood cells contained in a 200uL sampleof whole blood analyzed by the instrument. Thi s value maydiffer from the NRBC value reported in a manual differential,wh ich is based on a 100 cell differential.Co rrected from 0.0 % on 0 04/02/22 8:51:32 TAX EXPERT by Randa Lorenz. [Aut omated message] The sy stem which generated this result transmitted ref erence range: %. The r eference range was not u sed to interpret this result as normal/abnormal . Lab Interpretation Abnormal (test code = 24313-0) [facility] [place].[id number] 14:51:33 Test Item Value Reference Range Interpretation Comments WBC (test code = See Note 4.0-11.0 A Clotted oralia pleNotified 6690-2) Nurse Bettcy at 04/02/2022 8:47:15 AM CSTCordelia newsome will recollectFSCorr ected from 12.7 K/uL [HI] on 04/02/22 8:51:32 TAX EXPERT by Randa Lorenz. RBC (test code = See Note See_Comment A Clotted oralia pleNotified 789-8) Nurse Bettcy at 04/02/2022 8:47:15 AM CSTCordelia newsome will recollectFSCorr ected from 5.04 M/uL on 8:51:32 TAX EXPERT by Randa Lorenz. [Aut omated message] The sy stem which generated this result transmitted ref erence range: 4.00 - 5 .50 M/uL. The reference r ashley was not used to int erpret this result as nehemiah l/abnormal. Hgb (test code = See Note See_Comment A Clotted oralia pleNotified 718-7) Nurse Bettcy at 04/02/2022 8:47:15 AM CHRIS newsome will recollectFSCorr ected from 13.2 gm/dL on 0 04/02/22 8:51:32 TAX EXPERT by Randa Lorenz. [Aut omated message] The sy stem which generated this result transmitted ref erence range: 12.0 - 1 6.0 gm/dL. The reference r ashley was not used to int erpret this result as nehemiah l/abnormal. Hct (test code = See Note 37.0-47.0 A Clotted oralia pleNotified 4544-3) Nurse Bettcy at 04/02/2022 8:47:15 AM CHRIS newsome will recollectFSCorr ected from 41.2 % on 04/02 8:51:32 TAX EXPERT by Randa Quintanilla. MCV (test code = See Note 82-98 A Clotted oralia pleNotified 787-2) Nurse Bettcy at 04/02/2022 8:47:15 AM CSTN jerod will recollectFSCorr ected from 82 fL on 8:51:32 TAX EXPERT by Randa Quintanilla. MCH (test code = See Note 27.0-31.0 A Clotted oralia pleNotified 785-6) Nurse Bettcy at 04/02/2022 8:47:15 AM CSTN jerod will recollectFSCorr ected from 26.2 pg [LOW] o n 04/02/22 8:51:32 TAX EXPERT by Randa Lorenz. MCHC (test code = See Note See_Comment A Clotted sa mpleNotified 786-4) Nurse Bettcy at 04/02/2022 8:47:15 AM CSTCordelia newsome will recollectFSCorr ected from 32.0 gm/dL on 0 04/02/22 8:51:32 TAX EXPERT by Randa Lorenz. [Aut omated message] The sy stem which generated this result transmitted ref erence range: 31.0 - 3 6.0 gm/dL. The reference r ashley was not used to int erpret this result as nehemiah l/abnormal. RDW-SD (test code = See Note 35.1-46.3 A Clotted sampleNotified 31617-2) Nurse Bettcy at 04/02/2022 8:47:15 AM CSTCordelia newsome will recollectFSCorr ected from 42.7 fL on 09/15 8:51:32 TAX EXPERT by Randa Lorenz. RDW-CV (test code = See Note 12.0-15.5 A Clotted sampleNotified 788-0) Nurse Bettcy at 04/02/2022 8:47:15 AM CSTCordelia newsome will recollectFSCorr ected from 15.1 % on 04/02 8:51:32 TAX EXPERT by Randa Quintanilla. Platelet count (test See Note 140-440 A Clotted sampleNotified code = 777-3) Nurse Bettcy a t 04/02/2022 8:47:15 AM CSTCordelia newsome will recollectFS MPV (test code = See Note 4.0-10.4 Clotted oralia pleNotified 61271-7) Nurse Bettcy at 04/02/2022 8:47:15 AM CSTCordelia newsome will recollectFS INRBC (test code = See Note See_Comment A Clotted s ampleNotified 30124-1) Nurse Bettcy at 04/02/2022 8:47:15 AM CSTCordelia newsome will recollectFSThe INRBC (instrument NRB C) value reflects the en umerationof nucleated red b lood cells contained in a 200uL sampleof whole blood analyzed by the instrument. Thi s value maydiffer from the NRBC value reported in a manual differential,wh ich is based on a 100 cell differential.Th e INRBC (instrument NRB C) value reflects the en umerationof nucleated red b lood cells contained in a 200uL sampleof whole blood analyzed by the instrument. Thi s value maydiffer from the NRBC value reported in a manual differential,wh ich is based on a 100 cell differential.Co rrected from 0.0 % on 0 04/02/22 8:51:32 TAX EXPERT by Randa Lorenz. [Aut omated message] The sy stem which generated this result transmitted ref erence range: %. The r eference range was not u sed to interpret this result as normal/abnormal . Lab Interpretation Abnormal (test code = 26745-6) [facility] Glucose [id number] 14:18:40 Test Item Value Reference Interpretation Comments Range POC Glucose (test 134 mg/dL 70-99 H Capillary blood code = 5651) samples, e.g. obtained by fingerstick, ma y have inaccurate resu lts in patients with decreased perip heral blood flow. All POC Glucose screen test results, includ ing critical values , must be interpreted and evaluated in th e context of the patients clinical findi ngs. It is recommend ed to confirm any questionable te st results by core lab methodology. Me thod description: Al l results are charlene sured using Electrochemistr y test methodology. Th e glucose in the sample mixes with the reagents on the test strip. The reac tion produces an albert ctric current. The am ount of current prod uced is proportional to the glucose concentration i n the blood. PO Sample Type (test Capillary code = 9554) Performing Lab (test [facility] code = 93689) [facility] Cli nical Lab, [address] [place] [address]; Water Treatment Plant Repairer: Guerline Olmstead MD; Waived Point of Care Testing - Luz Maria levi MD Lab Interpretation Abnormal (test code = 47094-6) [facility] Glucose [id number] 14:18:40 Test Item Value Reference Interpretation Comments Range POC Glucose (test 134 mg/dL 70-99 H Capillary blood code = 5651) samples, e.g. obtained by fingerstick, ma y have inaccurate resu lts in patients with decreased perip heral blood flow. All POC Glucose screen test results, includ ing critical values , must be interpreted and evaluated in th e context of the patients clinical findi ngs. It is recommend ed to confirm any questionable te st results by core lab methodology. Me thod description: Al l results are charlene sured using Electrochemistr y test methodology. Th e glucose in the sample mixes with the reagents on the test strip. The reac tion produces an ablert ctric current. The am ount of current prod uced is proportional to the glucose concentration i n the blood. PO Sample Type (test Capillary code = 9554) Performing Lab (test [facility] code = 58856) [facility] Cli nical Lab, [address] [place] [address]; Water Treatment Plant Repairer: Guerline Olmstead MD; Waived Point of Care Testing - Luz Maria levi MD Lab Interpretation Abnormal (test code = 16241-4) [facility] Glucose [id number] 14:18:40 Test Item Value Reference Interpretation Comments Range POC Glucose (test 134 mg/dL 70-99 H Capillary blood code = 5651) samples, e.g. obtained by fingerstick, ma y have inaccurate resu lts in patients with decreased perip heral blood flow. All POC Glucose screen test results, includ ing critical values , must be interpreted and evaluated in th e context of the patients clinical findi ngs. It is recommend ed to confirm any questionable te st results by core lab methodology. Me thod description: Al l results are charlene sured using Electrochemistr y test methodology. Th e glucose in the sample mixes with the reagents on the test strip. The reac tion produces an albert ctric current. The am ount of current prod uced is proportional to the glucose concentration i n the blood. PO Sample Type (test Capillary code = 9554) Performing Lab (test [facility] code = 83894) [facility] Cli nical Lab, [address] [place] [address]; Water Treatment Plant Repairer: Guerline Olmstead MD; Waived Point of Care Testing - Luz Maria levi MD Lab Interpretation Abnormal (test code = 51520-2) [facility] Glucose [id number] 14:18:40 Test Item Value Reference Interpretation Comments Range POC Glucose (test 134 mg/dL 70-99 H Capillary blood code = 5651) samples, e.g. obtained by fingerstick, ma y have inaccurate resu lts in patients with decreased perip heral blood flow. All POC Glucose screen test results, includ ing critical values , must be interpreted and evaluated in th e context of the patients clinical findi ngs. It is recommend ed to confirm any questionable te st results by core lab methodology. Me thod description: Al l results are charlene sured using Electrochemistr y test methodology. Th e glucose in the sample mixes with the reagents on the test strip. The reac tion produces an albert ctric current. The am ount of current prod uced is proportional to the glucose concentration i n the blood. PO Sample Type (test Capillary code = 9554) Performing Lab (test [facility] code = 97267) [facility] Cli nical Lab, [address], [place] [address]; Water Treatment Plant Repairer: Guerline Olmstead MD; Waived Point of Care Testing - Luz Maria levi MD Lab Interpretation Abnormal (test code = 61217-9) [facility] Glucose [id number] 14:18:40 Test Item Value Reference Interpretation Comments Range POC Glucose (test 134 mg/dL 70-99 H Capillary blood code = 5651) samples, e.g. obtained by fingerstick, ma y have inaccurate resu lts in patients with decreased perip heral blood flow. All POC Glucose screen test results, includ ing critical values , must be interpreted and evaluated in th e context of the patients clinical findi ngs. It is recommend ed to confirm any questionable te st results by core lab methodology. Me thod description: Al l results are charlene sured using Electrochemistr y test methodology. Th e glucose in the sample mixes with the reagents on the test strip. The reac tion produces an albert ctric current. The am ount of current prod uced is proportional to the glucose concentration i n the blood. PO Sample Type (test Capillary code = 9554) Performing Lab (test [facility] code = 42972) [facility] nicnj Lab, [address] [place] [address]; Water Treatment Plant Repairer: Guerline Olmstead MD; Waived Point of Care Testing - Luz Maria levi MD Lab Interpretation Abnormal (test code = 33158-1) [facility] Glucose [id number] 14:18:40 Test Item Value Reference Interpretation Comments Range POC Glucose (test 134 mg/dL 70-99 H Capillary blood code = 5651) samples, e.g. obtained by fingerstick, ma y have inaccurate resu lts in patients with decreased perip heral blood flow. All POC Glucose screen test results, includ ing critical values , must be interpreted and evaluated in th e context of the patients clinical findi ngs. It is recommend ed to confirm any questionable te st results by core lab methodology. Ne thod description: Al l results are charlene sured using Electrochemistr y test methodology. Th e glucose in the sample mixes with the reagents on the test strip. The reac tion produces an albert ctric current. The am ount of current prod uced is proportional to the glucose concentration i n the blood. PO Sample Type (test Capillary code = 9554) Performing Lab (test [facility] code = 76018) [facility] Cli nical Lab, [address], [place] [address]; Water Treatment Plant Repairer: Guerline Olmstead MD; Waived Point of Care Testing - Luz Maria levi MD Lab Interpretation Abnormal (test code = 30134-0) [facility] Glucose [id number] 14:18:40 Test Item Value Reference Interpretation Comments Range POC Glucose (test 134 mg/dL 70-99 H Capillary blood code = 5651) samples, e.g. obtained by fingerstick, ma y have inaccurate resu lts in patients with decreased perip heral blood flow. All POC Glucose screen test results, includ ing critical values , must be interpreted and evaluated in th e context of the patients clinical findi ngs. It is recommend ed to confirm any questionable te st results by core lab methodology. Me thod description: Al l results are charlene sured using Electrochemistr y test methodology. Th e glucose in the sample mixes with the reagents on the test strip. The reac tion produces an albert ctric current. The am ount of current prod uced is proportional to the glucose concentration i n the blood. PO Sample Type (test Capillary code = 9554) Performing Lab (test [facility] [place] code = 88788) [facility] Cli nical Lab, [address] [address] [place] [place], [place] [address]; Water Treatment Plant Repairer: Guerline Olmstead MD; Waived Point of Care Testing - Luz Maria levi MD Lab Interpretation Abnormal (test code = 18116-6) [facility] Glucose [id number] 14:18:40 Test Item Value Reference Interpretation Comments Range POC Glucose (test 134 mg/dL 70-99 H Capillary blood code = 5651) samples, e.g. obtained by fingerstick, ma y have inaccurate resu lts in patients with decreased perip heral blood flow. All POC Glucose screen test results, includ ing critical values , must be interpreted and evaluated in th e context of the patients clinical findi ngs. It is recommend ed to confirm any questionable te st results by core lab methodology. Me thod description: Al l results are charlene sured using Electrochemistr y test methodology. Th e glucose in the sample mixes with the reagents on the test strip. The reac tion produces an albert ctric current. The am ount of current prod uced is proportional to the glucose concentration i n the blood. PO Sample Type (test Capillary code = 9554) Performing Lab (test [facility] code = 63597) [facility] Cli nical Lab, [address] [place] [address]; Water Treatment Plant Repairer: Guerline Olmstead MD; Waived Point of Care Testing - Luz Maria levi MD Lab Interpretation Abnormal (test code = 42489-9) [facility] Glucose [id number] 14:18:40 Test Item Value Reference Interpretation Comments Range POC Glucose (test 134 mg/dL 70-99 H Capillary blood code = 5651) samples, e.g. obtained by fingerstick, ma y have inaccurate resu lts in patients with decreased perip heral blood flow. All POC Glucose screen test results, includ ing critical values , must be interpreted and evaluated in th e context of the patients clinical findi ngs. It is recommend ed to confirm any questionable te st results by core lab methodology. Me thod description: Al l results are charlene sured using Electrochemistr y test methodology. Th e glucose in the sample mixes with the reagents on the test strip. The reac tion produces an albert ctric current. The am ount of current prod uced is proportional to the glucose concentration i n the blood. PO Sample Type (test Capillary code = 9554) Performing Lab (test [facility] code = 97275) [facility] Cli nical Lab, [address] [place] [address]; Water Treatment Plant Repairer: Guerline Olmstead MD; Waived Point of Care Testing - Luz Maria levi MD Lab Interpretation Abnormal (test code = 11761-3) [facility] [id number] 13:45:09 Test Item Value Reference Range Interpretation Comments PT (test code = 12.6 See_Comment [Automated message] The 5902-2) system which ge nerated this result transmit eugene reference range : 11.9 - 14.1 second(s). The reference range was not used to interpr et this result as nehemiah l/abnormal. INR (test code = 0.94 0.89-1.10 6301-6) [facility] [id number] 13:45:09 Test Item Value Reference Range Interpretation Comments PT (test code = 12.6 See_Comment [Automated message] The 5902-2) system which ge nerated this result transmit eugene reference range : 11.9 - 14.1 second(s). The reference range was not used to interpr et this result as nehemiah l/abnormal. INR (test code = 0.94 0.89-1.10 6301-6) [facility] with [id number] 13:45:09 Test Item Value Reference Range Interpretation Comments PT (test code = 12.6 See_Comment [Automated message] The 5902-2) system which ge nerated this result transmit eugene reference range : 11.9 - 14.1 second(s). The reference range was not used to interpr et this result as nehemiah l/abnormal. INR (test code = 0.94 0.89-1.10 6301-6) [facility] with [id number] 13:45:09 Test Item Value Reference Range Interpretation Comments PT (test code = 12.6 See_Comment [Automated message] The 5902-2) system which ge nerated this result transmit eugene reference range : 11.9 - 14.1 second(s). The reference range was not used to interpr et this result as nehemiah l/abnormal. INR (test code = 0.94 0.89-1.10 6301-6) [facility] with [id number] 13:45:09 Test Item Value Reference Range Interpretation Comments PT (test code = 12.6 See_Comment [Automated message] The 5902-2) system which ge nerated this result transmit eugene reference range : 11.9 - 14.1 second(s). The reference range was not used to interpr et this result as nehemiah l/abnormal. INR (test code = 0.94 0.89-1.10 6301-6) [facility] with [id number] 13:45:09 Test Item Value Reference Range Interpretation Comments PT (test code = 12.6 See_Comment [Automated message] The 5902-2) system which ge nerated this result transmit eugene reference range : 11.9 - 14.1 second(s). The reference range was not used to interpr et this result as nehemiah l/abnormal. INR (test code = 0.94 0.89-1.10 6301-6) [facility] with [id number] 13:45:09 Test Item Value Reference Range Interpretation Comments PT (test code = 12.6 See_Comment [Automated message] The 590-2) system which ge nerated this result transmit eugene reference range : 11.9 - 14.1 second(s). The reference range was not used to interpr et this result as nehemiah l/abnormal. INR (test code = 0.94 0.89-1.10 6301-6) [facility] with [id number] 13:45:09 Test Item Value Reference Range Interpretation Comments PT (test code = 12.6 See_Comment [Automated message] The 590-2) system which ge nerated this result transmit eugene reference range : 11.9 - 14.1 second(s). The reference range was not used to interpr et this result as nehemiah l/abnormal. INR (test code = 0.94 0.89-1.10 6301-6) [facility] with [id number] 13:45:09 Test Item Value Reference Range Interpretation Comments PT (test code = 12.6 See_Comment [Automated message] The 590-2) system which ge nerated this result transmit eugene reference range : 11.9 - 14.1 second(s). The reference range was not used to interpr et this result as nehemiah l/abnormal. INR (test code = 0.94 0.89-1.10 6301-6) [facility] [id number] 13:42:56 Test Item Value Reference Range Interpretation Comments Bili Total (test 0.6 mg/dL <=1.2 Indocyanine Green (ICG) code = 1975-2) may cause fal sely elevated biliru bin results. Total and direct bilirubin must not be measured from s amples containing indo cyanine green. False el evation of total bilirubin can be seen in patient s with IgG concentrations above 28 g/L. Bili Direct (test <=0.3 Indocyanin e Green (ICG) code = 1967-08) may cause fal sely elevated biliru bin results. Total and direct bilirubin must not be measured from s amples containing indo cyanine green. Bili Indirect (test See Note 0.0-0.9 Unable t o calculate code = 1970-02) Indirect Bili dorsey result due to some par ameters are outside rep ortable range [facility] [id number] 13:42:56 Test Item Value Reference Range Interpretation Comments Bili Total (test 0.6 mg/dL <=1.2 Indocyanine Green (ICG) code = 1974-03) may cause fal sely elevated biliru bin results. Total and direct bilirubin must not be measured from s amples containing indo cyanine green. False el evation of total bilirubin can be seen in patient s with IgG concentrations above 28 g/L. Bili Direct (test <=0.3 Indocyanin e Green (ICG) code = 1967-08) may cause fal sely elevated biliru bin results. Total and direct bilirubin must not be measured from s amples containing indo cyanine green. Bili Indirect (test See Note 0.0-0.9 Unable t o calculate code = 1970-02) Indirect Bili dorsey result due to some par ameters are outside rep ortable range [facility] [id number] 13:42:56 Test Item Value Reference Range Interpretation Comments Bili Total (test 0.6 mg/dL <=1.2 Indocyanine Green (ICG) code = 1974-03) may cause fal sely elevated biliru bin results. Total and direct bilirubin must not be measured from s amples containing indo cyanine green. False el evation of total bilirubin can be seen in patient s with IgG concentrations above 28 g/L. Bili Direct (test <=0.3 Indocyanin e Green (ICG) code = 1967-08) may cause fal sely elevated biliru bin results. Total and direct bilirubin must not be measured from s amples containing indo cyanine green. Bili Indirect (test See Note 0.0-0.9 Unable t o calculate code = 1970-02) Indirect Bili dorsey result due to some par ameters are outside rep ortable range [facility] [id number] 13:42:56 Test Item Value Reference Range Interpretation Comments Bili Total (test 0.6 mg/dL <=1.2 Indocyanine Green (ICG) code = 1974-03) may cause fal sely elevated biliru bin results. Total and direct bilirubin must not be measured from s amples containing indo cyanine green. False el evation of total bilirubin can be seen in patient s with IgG concentrations above 28 g/L. Bili Direct (test <=0.3 Indocyanin e Green (ICG) code = 1967-08) may cause fal sely elevated biliru bin results. Total and direct bilirubin must not be measured from s amples containing indo cyanine green. Bili Indirect (test See Note 0.0-0.9 Unable t o calculate code = 1970-02) Indirect Bili dorsey result due to some par ameters are outside rep ortable range [facility] [id number] 13:42:56 Test Item Value Reference Range Interpretation Comments Bili Total (test 0.6 mg/dL <=1.2 Indocyanine Green (ICG) code = 1974-03) may cause fal sely elevated biliru bin results. Total and direct bilirubin must not be measured from s amples containing indo cyanine green. False el evation of total bilirubin can be seen in patient s with IgG concentrations above 28 g/L. Bili Direct (test <=0.3 Indocyanin e Green (ICG) code = 1967-08) may cause fal sely elevated biliru bin results. Total and direct bilirubin must not be measured from s amples containing indo cyanine green. Bili Indirect (test See Note 0.0-0.9 Unable t o calculate code = 1970-02) Indirect Bili dorsey result due to some par ameters are outside rep ortable range [facility] [id number] 13:42:56 Test Item Value Reference Range Interpretation Comments Bili Total (test 0.6 mg/dL <=1.2 Indocyanine Green (ICG) code = 1974-03) may cause fal sely elevated biliru bin results. Total and direct bilirubin must not be measured from s amples containing indo cyanine green. False el evation of total bilirubin can be seen in patient s with IgG concentrations above 28 g/L. Bili Direct (test <=0.3 Indocyanin e Green (ICG) code = 1967-08) may cause fal sely elevated biliru bin results. Total and direct bilirubin must not be measured from s amples containing indo cyanine green. Bili Indirect (test See Note 0.0-0.9 Unable t o calculate code = 1970-02) Indirect Bili dorsey result due to some par ameters are outside rep ortable range [facility] [id number] 13:42:56 Test Item Value Reference Range Interpretation Comments Bili Total (test 0.6 mg/dL <=1.2 Indocyanine Green (ICG) code = 1974-03) may cause fal sely elevated biliru bin results. Total and direct bilirubin must not be measured from s amples containing indo cyanine green. False el evation of total bilirubin can be seen in patient s with IgG concentrations above 28 g/L. Bili Direct (test <=0.3 Indocyanin e Green (ICG) code = 1967-08) may cause fal sely elevated biliru bin results. Total and direct bilirubin must not be measured from s amples containing indo cyanine green. Bili Indirect (test See Note 0.0-0.9 Unable t o calculate code = 1970-02) Indirect Bili dorsey result due to some par ameters are outside rep ortable range [facility] Rate 2022-04-02 13:42:54 Test Item Value Reference Range Interpretation Comments eGFR (test code = 143 See_Comment The eGFRcr is calculated with 44513-9) the 2020 CKD-EP I creatinine equation using creatinine, patient's age, and sex for adults 18 years of age and older. Other fa ctors, especially musc le mass, may affect accuracy and need to be considered.A ccording to the Kidney Dise ase: Improving Global Outcomes (KDIGO) CKD Work Group 2012 Clinical Practice Guidel ine, chronic kidney disease (CKD) is defined as the abnormalities of kidney struc ture or function, prese nt for more than 3 months, with implications fo r health. CKD should be class ified by cause, GFR abdulaziz gory, and albuminuria cat egory. KDIGO guidelines prov sherri the following GFR c ategoriesStage Description GFR mL/min/1.73 m2G1* Normal or high >= 90G2* Mildly decrease d 60-89G3a Mildly to moder ately decreased 45-59 G3b Moderately to severely dec reased 30-44G4 Severely decrea sed 15-29G5 Kidney failure <15*In the absence of evid ence of kidney damage, neither G1 nor G2 fulfill criteri a for CKD. [Automated mess age] The system which [employer] nerated this result transmit eugene reference range: >=60 mL/ min/1.73 sq. m. The referenc e range was not used to int erpret this result as nehemiah l/abnormal. [facility] 13:42:54 Test Item Value Reference Range Interpretation Comments eGFR (test code = 143 See_Comment The eGFRcr is calculated with 26738-7) the 2020 CKD-EP I creatinine equation using creatinine, patient's age, and sex for adults 18 years of age and older. Other fa ctors, especially musc le mass, may affect accuracy and need to be considered.A ccording to the Kidney Dise ase: Improving Global Outcomes (KDIGO) CKD Work Group 2012 Clinical Practice Guidel ine, chronic kidney disease (CKD) is defined as the abnormalities of kidney struc ture or function, prese nt for more than 3 months, with implications fo r health. CKD should be class ified by cause, GFR abdulaziz gory, and albuminuria cat egory. KDIGO guidelines prov sherri the following GFR c ategoriesStage Description GFR mL/min/1.73 m2G1* Normal or high >= 90G2* Mildly decrease d 60-89G3a Mildly to moder ately decreased 45-59 G3b Moderately to severely dec reased 30-44G4 Severely decrea sed 15-29G5 Kidney failure <15*In the absence of evid ence of kidney damage, neither G1 nor G2 fulfill criteri a for CKD. [Automated mess age] The system which [employer] nerated this result transmit eugene reference range: >=60 mL/ min/1.73 sq. m. The referenc e range was not used to int erpret this result as nehemiah l/abnormal. [facility] 13:42:54 Test Item Value Reference Range Interpretation Comments eGFR (test code = 143 See_Comment The [place]cr [place] 13170-8) the 2020 CKD-EP I creatinine equation using creatinine, patient's age, and sex for adults 18 years of age and older. Other fa ctors, especially musc le mass, may affect accuracy and need to be considered.A ccording to the Kidney Dise ase: Improving Global Outcomes (KDIGO) CKD Work Group 2012 Clinical Practice Guidel ine, chronic kidney disease (CKD) is defined as the abnormalities of kidney struc ture or function, prese nt for more than 3 months, with implications fo r health. CKD should be class ified by cause, GFR abdulaziz gory, and albuminuria cat egory. KDIGO guidelines prov sherri the following GFR c ategoriesStage Description GFR mL/min/1.73 m2G1* Normal or high >= 90G2* Mildly decrease d 60-89G3a Mildly to moder ately decreased 45-59 G3b Moderately to severely dec reased 30-44G4 Severely decrea sed 15-29G5 Kidney failure <15*In the absence of evid ence of kidney damage, neither G1 nor G2 fulfill criteri a for CKD. [Automated mess age] The system which ge nerated this result transmit eugene reference range: >=60 mL/ min/1.73 sq. m. The referenc e range was not used to int erpret this result as nehemiah l/abnormal. [facility] 13:42:54 Test Item Value Reference Range Interpretation Comments eGFR (test code = 143 See_Comment The eGFRcr [place] 88716-3) the 2020 CKD-EP I creatinine equation using creatinine, patient's age, and sex for adults 18 years of age and older. Other fa ctors, especially musc le mass, may affect accuracy and need to be considered.A ccording to the Kidney Dise ase: Improving Global Outcomes (KDIGO) CKD Work Group 2012 Clinical Practice Guidel ine, chronic kidney disease (CKD) is defined as the abnormalities of kidney struc ture or function, prese nt for more than 3 months, with implications fo r health. CKD should be class ified by cause, GFR abdulaziz gory, and albuminuria cat egory. KDIGO guidelines prov sherri the following GFR c ategoriesStage Description GFR mL/min/1.73 m2G1* Normal or high >= 90G2* Mildly decrease d 60-89G3a Mildly to moder ately decreased 45-59 G3b Moderately to severely dec reased 30-44G4 Severely decrea sed 15-29G5 Kidney failure <15*In the absence of evid ence of kidney damage, neither G1 nor G2 fulfill criteri a for CKD. [Automated mess age] The system which [employer] nerated this result transmit eugene reference range: >=60 mL/ min/1.73 sq. m. The referenc e range was not used to int erpret this result as nehemiah l/abnormal. [facility] 13:42:54 Test Item Value Reference Range Interpretation Comments eGFR (test code = 143 See_Comment The [place]GFRcr [place] 30251-3) the 2020 CKD-EP I creatinine equation using creatinine, patient's age, and sex for adults 18 years of age and older. Other fa ctors, especially musc le mass, may affect accuracy and need to be considered.A ccording to the Kidney Dise ase: Improving Global Outcomes (KDIGO) CKD Work Group 2012 Clinical Practice Guidel ine, chronic kidney disease (CKD) is defined as the abnormalities of kidney struc ture or function, prese nt for more than 3 months, with implications fo r health. CKD should be class ified by cause, GFR abdulaziz gory, and albuminuria cat egory. KDIGO guidelines prov sherri the following GFR c ategoriesStage Description GFR mL/min/1.73 m2G1* Normal or high >= 90G2* Mildly decrease d 60-89G3a Mildly to moder ately decreased 45-59 G3b Moderately to severely dec reased 30-44G4 Severely decrea sed 15-29G5 Kidney failure <15*In the absence of evid ence of kidney damage, neither G1 nor G2 fulfill criteri a for CKD. [Automated mess age] The system which [employer] nerated this result transmit eugene reference range: >=60 mL/ min/1.73 sq. m. The referenc e range was not used to int erpret this result as nehemiah l/abnormal. [facility] 13:42:54 Test Item Value Reference Range Interpretation Comments eGFR (test code = 143 See_Comment The eGFRcr [place] 78445-7) the 2020 CKD-EP I creatinine equation using creatinine, patient's age, and sex for adults 18 years of age and older. Other fa ctors, especially musc le mass, may affect accuracy and need to be considered.A ccording to the Kidney Dise ase: Improving Global Outcomes (KDIGO) CKD Work Group 2012 Clinical Practice Guidel ine, chronic kidney disease (CKD) is defined as the abnormalities of kidney struc ture or function, prese nt for more than 3 months, with implications fo r health. CKD should be class ified by cause, GFR abdulaziz gory, and albuminuria cat egory. KDIGO guidelines prov sherri the following GFR c ategoriesStage Description GFR mL/min/1.73 m2G1* Normal or high >= 90G2* Mildly decrease d 60-89G3a Mildly to moder ately decreased 45-59 G3b Moderately to severely dec reased 30-44G4 Severely decrea sed 15-29G5 Kidney failure <15*In the absence of evid ence of kidney damage, neither G1 nor G2 fulfill criteri a for CKD. [Automated mess age] The system which ge nerated this result transmit eugene reference range: >=60 mL/ min/1.73 sq. m. The referenc e range was not used to int erpret this result as nehemiah l/abnormal. [facility] 13:42:54 Test Item Value Reference Range Interpretation Comments eGFR (test code = 143 See_Comment The eGFRcr [place] 69704-7) the 2020 CKD-EP I creatinine equation using creatinine, patient's age, and sex for adults 18 years of age and older. Other fa ctors, especially musc le mass, may affect accuracy and need to be considered.A ccording to the Kidney Dise ase: Improving Global Outcomes (KDIGO) CKD Work Group 2012 Clinical Practice Guidel ine, chronic kidney disease (CKD) is defined as the abnormalities of kidney struc ture or function, prese nt for more than 3 months, with implications fo r health. CKD should be class ified by cause, GFR abdulaziz gory, and albuminuria cat egory. KDIGO guidelines prov sherri the following GFR c ategoriesStage Description GFR mL/min/1.73 m2G1* Normal or high >= 90G2* Mildly decrease d 60-89G3a Mildly to moder ately decreased 45-59 G3b Moderately to severely dec reased 30-44G4 Severely decrea sed 15-29G5 Kidney failure <15*In the absence of evid ence of kidney damage, neither G1 nor G2 fulfill criteri a for CKD. [Automated mess age] The system which ge nerated this result transmit eugene reference range: >=60 mL/ min/1.73 sq. m. The referenc e range was not used to int erpret this result as nehemiah l/abnormal. [facility] Yqjibgl4242-27-83 13:42:52 Test Item Value Reference Range Interpretation Comments Total Protein (test code = 2885-2) 6.8 g/dL 6.4-8.3 [facility] Oemdoyd9316-21-36 13:42:52 Test Item Value Reference Range Interpretation Comments Total Protein (test code = 2885-2) 6.8 g/dL 6.4-8.3 [facility] Nxmtilb7685-50-05 13:42:52 Test Item Value Reference Range Interpretation Comments Total Protein (test code = 2885-2) 6.8 g/dL 6.4-8.3 [facility] Yfojvfh3406-85-20 13:42:52 Test Item Value Reference Range Interpretation Comments Total Protein (test code = 2885-2) 6.8 g/dL 6.4-8.3 [facility] Qclqkaj8249-31-01 13:42:52 Test Item Value Reference Range Interpretation Comments Total Protein (test code = 2885-2) 6.8 g/dL 6.4-8.3 [facility] Ylddnwn9883-27-10 13:42:52 Test Item Value Reference Range Interpretation Comments Total Protein (test code = 2885-2) 6.8 g/dL 6.4-8.3 [facility] Krtlrge5410-68-54 13:42:52 Test Item Value Reference Range Interpretation Comments Total Protein (test code = 2885-2) 6.8 g/dL 6.4-8.3 [facility] Wwaeh5988-11-71 13:42:51 Test Item Value Reference Range Interpretation Comments Phosphorus (test code = 2777-1) 3.1 mg/dL 2.5-4.5 [facility] Iskom0946-29-28 13:42:51 Test Item Value Reference Range Interpretation Comments Phosphorus (test code = 2777-1) 3.1 mg/dL 2.5-4.5 [facility] Nqykv2305-34-05 13:42:51 Test Item Value Reference Range Interpretation Comments Phosphorus (test code = 2777-1) 3.1 mg/dL 2.5-4.5 [facility] Fdxzv2777-61-04 13:42:51 Test Item Value Reference Range Interpretation Comments Phosphorus (test code = 2777-1) 3.1 mg/dL 2.5-4.5 [facility] Tvalp3052-72-35 13:42:51 Test Item Value Reference Range Interpretation Comments Phosphorus (test code = 2777-1) 3.1 mg/dL 2.5-4.5 [facility] Ndkzh2831-87-15 13:42:51 Test Item Value Reference Range Interpretation Comments Phosphorus (test code = 2777-1) 3.1 mg/dL 2.5-4.5 [facility] Fsltk7328-29-64 13:42:51 Test Item Value Reference Range Interpretation Comments Phosphorus (test code = 2777-1) 3.1 mg/dL 2.5-4.5 [facility] Fntho9939-01-59 13:42:51 Test Item Value Reference Range Interpretation Comments Phosphorus (test code = 2777-1) 3.1 mg/dL 2.5-4.5 [facility] Dvuln6337-43-10 13:42:51 Test Item Value Reference Range Interpretation Comments Phosphorus (test code = 2777-1) 3.1 mg/dL 2.5-4.5 [facility] Lhrpi7232-62-16 13:42:50 Test Item Value Reference Range Interpretation Comments Magnesium (test code = 65516-3) 2.4 mg/dL 1.6-2.6 [facility] Ozfjt8050-72-09 13:42:50 Test Item Value Reference Range Interpretation Comments Magnesium (test code = 22952-1) 2.4 mg/dL 1.6-2.6 [facility] Qberf9183-19-94 13:42:50 Test Item Value Reference Range Interpretation Comments Magnesium (test code = 57572-4) 2.4 mg/dL 1.6-2.6 [facility] Falaz7840-69-57 13:42:50 Test Item Value Reference Range Interpretation Comments Magnesium (test code = 80822-3) 2.4 mg/dL 1.6-2.6 [facility] Gkcct8905-68-32 13:42:50 Test Item Value Reference Range Interpretation Comments Magnesium (test code = 43991-9) 2.4 mg/dL 1.6-2.6 [facility] Zotij5374-47-47 13:42:50 Test Item Value Reference Range Interpretation Comments Magnesium (test code = 62725-7) 2.4 mg/dL 1.6-2.6 [facility] Zviun2124-82-90 13:42:50 Test Item Value Reference Range Interpretation Comments Magnesium (test code = 72257-7) 2.4 mg/dL 1.6-2.6 [facility] Qtjtl6403-36-03 13:42:50 Test Item Value Reference Range Interpretation Comments Magnesium (test code = 53774-2) 2.4 mg/dL 1.6-2.6 [facility] Umytk6106-94-16 13:42:50 Test Item Value Reference Range Interpretation Comments Magnesium (test code = 33792-7) 2.4 mg/dL 1.6-2.6 [facility] Rfote0007-06-01 13:42:49 Test Item Value Reference Range Interpretation Comments Albumin Lvl (test code 3.9 See_Comment [Aut omated message] The = 1751-7) system which ge nerated this result tra nsmitted reference range : 3.5 - 5.2 gm/dL. The refe rence range was not used to interpret this result as normal/abnormal . [facility] Bqltt5164-95-01 13:42:49 Test Item Value Reference Range Interpretation Comments Albumin Lvl (test code 3.9 See_Comment [Aut omated message] The = 1750-08) system which ge nerated this result tra nsmitted reference range : 3.5 - 5.2 gm/dL. The refe rence range was not used to interpret this result as normal/abnormal . [facility] Quqjw3203-97-83 13:42:49 Test Item Value Reference Range Interpretation Comments Albumin Lvl (test code 3.9 See_Comment [Aut omated message] The = 1750-08) system which ge nerated this result tra nsmitted reference range : 3.5 - 5.2 gm/dL. The refe rence range was not used to interpret this result as normal/abnormal . [facility] Rsijv6337-26-30 13:42:49 Test Item Value Reference Range Interpretation Comments Albumin Lvl (test code 3.9 See_Comment [Aut omated message] The = 1750-08) system which ge nerated this result tra nsmitted reference range : 3.5 - 5.2 gm/dL. The refe rence range was not used to interpret this result as normal/abnormal . [facility] Zteay6313-92-16 13:42:49 Test Item Value Reference Range Interpretation Comments Albumin Lvl (test code 3.9 See_Comment [Aut omated message] The = 1750-08) system which ge nerated this result tra nsmitted reference range : 3.5 - 5.2 gm/dL. The refe rence range was not used to interpret this result as normal/abnormal . [facility] Kvjgy1681-73-70 13:42:49 Test Item Value Reference Range Interpretation Comments Albumin Lvl (test code 3.9 See_Comment [Aut omated message] The = 1750-08) system which ge nerated this result tra nsmitted reference range : 3.5 - 5.2 gm/dL. The refe rence range was not used to interpret this result as normal/abnormal . [facility] Iuget1852-41-05 13:42:49 Test Item Value Reference Range Interpretation Comments Albumin Lvl (test code 3.9 See_Comment [Aut omated message] The = 1751-7) system which ge nerated this result tra nsmitted reference range : 3.5 - 5.2 gm/dL. The refe rence range was not used to interpret this result as normal/abnormal . [facility]Alk[facility] Rukqzeitlzs1222-09-49 13:42:48 Test Item Value Reference Range Interpretation Comments Alk Phos (test code = 6768-6) 93 U/L 35-104 [facility] Fehgdiseuxj7571-58-72 13:42:48 Test Item Value Reference Range Interpretation Comments Alk Phos (test code = 6768-6) 93 U/L 35-104 [facility] Thrtdmugepn8733-62-56 13:42:48 Test Item Value Reference Range Interpretation Comments Alk Phos (test code = 6768-6) 93 U/L 35-104 [facility] Hugddajiphs5809-84-44 13:42:48 Test Item Value Reference Range Interpretation Comments Alk Phos (test code = 6768-6) 93 U/L 35-104 [facility] Gxhzteexvox8002-74-73 13:42:48 Test Item Value Reference Range Interpretation Comments Alk Phos (test code = 6768-6) 93 U/L 35-104 [facility] Wrngkrpdwnn7332-24-86 13:42:48 Test Item Value Reference Range Interpretation Comments Alk Phos (test code = 6768-6) 93 U/L 35-104 [facility] Mlndgnvobqi0293-93-45 13:42:48 Test Item Value Reference Range Interpretation Comments Alk Phos (test code = 6768-6) 93 U/L 35-104 [facility] HospitalAspartate Aminotransferase 2022-04-02 13:42:47 Test Item Value Reference Range Interpretation Comments AST (test code = 1920-8) 31 U/L <=32 [facility] Aminotransferase 2022-04-02 13:42:47 Test Item Value Reference Range Interpretation Comments AST (test code = 1920-8) 31 U/L <=32 [facility] Aminotransferase 2022-04-02 13:42:47 Test Item Value Reference Range Interpretation Comments AST (test code = 1920-8) 31 U/L <=32 [facility] Amin[facility] 2022-04-02 13:42:47 Test Item Value Reference Range Interpretation Comments AST (test code = 1920-8) 31 U/L <=32 [facility] Amin[facility] 2022-04-02 13:42:47 Test Item Value Reference Range Interpretation Comments AST (test code = 1920-8) 31 U/L <=32 [facility] Amin[facility] 2022-04-02 13:42:47 Test Item Value Reference Range Interpretation Comments AST (test code = 1920-8) 31 U/L <=32 [facility] Aminotransferase 2022-04-02 13:42:47 Test Item Value Reference Range Interpretation Comments AST (test code = 1920-8) 31 U/L <=32 [facility] 13:42:46 Test Item Value Reference Range Interpretation Comments ALT (test code = 1742-6) 37 U/L <=33 H Lab Interpretation (test code = Abnormal 48640-8) [place] 61121023-02-07 13:42:46 Test Item Value Reference Range Interpretation Comments ALT (test code = 1742-6) 37 U/L <=33 H Lab Interpretation (test code = Abnormal 33139-5) [place] 61121023-02-07 13:42:46 Test Item Value Reference Range Interpretation Comments ALT (test code = 1742-6) 37 U/L <=33 H Lab Interpretation (test code = Abnormal 08096-8) [place] 61121023-02-07 13:42:46 Test Item Value Reference Range Interpretation Comments ALT (test code = 1742-6) 37 U/L <=33 H Lab Interpretation (test code = Abnormal 26754-2) [place] 61121023-02-07 13:42:46 Test Item Value Reference Range Interpretation Comments ALT (test code = 1742-6) 37 U/L <=33 H Lab Interpretation (test code = Abnormal 33618-2) [facility] 13:42:46 Test Item Value Reference Range Interpretation Comments ALT (test code = 1742-6) 37 U/L <=33 H Lab Interpretation (test code = Abnormal 93391-2) [facility] 13:42:46 Test Item Value Reference Range Interpretation Comments ALT (test code = 1742-6) 37 U/L <=33 H Lab Interpretation (test code = Abnormal 45034-8) [facility] Wvhqc5435-92-68 13:42:45 Test Item Value Reference Range Interpretation Comments Sodium Lvl (test code = 139 See_Comment [Au tomated message] The 2950-03) system which ge nerated this result tra nsmitted reference range : 136 - 145 mEq/L. The reference range was not u sed to interpret this result as normal/abnormal . Potassium Lvl (test 4.7 See_Comment [Automa eugene message] The code = 2823-3) system which generated this result tra nsmitted reference range : 3.5 - 5.1 mEq/L. The reference range was not u sed to interpret this result as normal/abnormal . Chloride (test code = 103 See_Comment [Auto mated message] The ) system which ge nerated this result tra nsmitted reference range : 98 - 107 mEq/L. The refe rence range was not u sed to interpret this result as normal/abnormal . CO2 (test code = 24 See_Comment [Automated message] The 2027-10) system which ge nerated this result tra nsmitted reference range : 22 - 29 mEq/L. The refe rence range was not u sed to interpret this result as normal/abnormal . Anion Gap (test code = 12 See_Comment [Aut omated message] The ) system which ge nerated this result tra nsmitted reference range : 4 - 14 mEq/L. The refe rence range was not u sed to interpret this result as normal/abnormal . [facility] Tfysj6552-01-96 13:42:45 Test Item Value Reference Range Interpretation Comments Sodium Lvl (test code = 139 See_Comment [Au tomated message] The 2950-03) system which ge nerated this result tra nsmitted reference range : 136 - 145 mEq/L. The reference range was not u sed to interpret this result as normal/abnormal . Potassium Lvl (test 4.7 See_Comment [Automa eugene message] The code = 2823-3) system which generated this result tra nsmitted reference range : 3.5 - 5.1 mEq/L. The reference range was not u sed to interpret this result as normal/abnormal . Chloride (test code = 103 See_Comment [Auto mated message] The ) system which ge nerated this result tra nsmitted reference range : 98 - 107 mEq/L. The refe rence range was not u sed to interpret this result as normal/abnormal . CO2 (test code = 24 See_Comment [Automated message] The 2027-10) system which ge nerated this result tra nsmitted reference range : 22 - 29 mEq/L. The refe rence range was not u sed to interpret this result as normal/abnormal . Anion Gap (test code = 12 See_Comment [Aut omated message] The ) system which ge nerated this result tra nsmitted reference range : 4 - 14 mEq/L. The refe rence range was not u sed to interpret this result as normal/abnormal . [facility] Cmvsw6804-13-41 13:42:45 Test Item Value Reference Range Interpretation Comments Sodium Lvl (test code = 139 See_Comment [Au tomated message] The 2950-03) system which ge nerated this result tra nsmitted reference range : 136 - 145 mEq/L. The reference range was not u sed to interpret this result as normal/abnormal . Potassium Lvl (test 4.7 See_Comment [Automa eugene message] The code = 2823-3) system which generated this result tra nsmitted reference range : 3.5 - 5.1 mEq/L. The reference range was not u sed to interpret this result as normal/abnormal . Chloride (test code = 103 See_Comment [Auto mated message] The ) system which ge nerated this result tra nsmitted reference range : 98 - 107 mEq/L. The refe rence range was not u sed to interpret this result as normal/abnormal . CO2 (test code = 24 See_Comment [Automated message] The 2027-10) system which ge nerated this result tra nsmitted reference range : 22 - 29 mEq/L. The refe rence range was not u sed to interpret this result as normal/abnormal . Anion Gap (test code = 12 See_Comment [Aut omated message] The ) system which ge nerated this result tra nsmitted reference range : 4 - 14 mEq/L. The refe rence range was not u sed to interpret this result as normal/abnormal . [facility] Hupvf0118-65-99 13:42:45 Test Item Value Reference Range Interpretation Comments Sodium Lvl (test code = 139 See_Comment [Au tomated message] The 2950-03) system which ge nerated this result tra nsmitted reference range : 136 - 145 mEq/L. The reference range was not u sed to interpret this result as normal/abnormal . Potassium Lvl (test 4.7 See_Comment [Automa eugene message] The code = 2823-3) system which generated this result tra nsmitted reference range : 3.5 - 5.1 mEq/L. The reference range was not u sed to interpret this result as normal/abnormal . Chloride (test code = 103 See_Comment [Auto mated message] The ) system which ge nerated this result tra nsmitted reference range : 98 - 107 mEq/L. The refe rence range was not u sed to interpret this result as normal/abnormal . CO2 (test code = 24 See_Comment [Automated message] The 2027-10) system which ge nerated this result tra nsmitted reference range : 22 - 29 mEq/L. The refe rence range was not u sed to interpret this result as normal/abnormal . Anion Gap (test code = 12 See_Comment [Aut omated message] The ) system which ge nerated this result tra nsmitted reference range : 4 - 14 mEq/L. The refe rence range was not u sed to interpret this result as normal/abnormal . [facility] [id number] 13:42:45 Test Item Value Reference Range Interpretation Comments Sodium Lvl (test code = 139 See_Comment [Au tomated message] The 2950-03) system which ge nerated this result tra nsmitted reference range : 136 - 145 mEq/L. The reference range was not u sed to interpret this result as normal/abnormal . Potassium Lvl (test 4.7 See_Comment [Automa eugene message] The code = 2823-3) system which generated this result tra nsmitted reference range : 3.5 - 5.1 mEq/L. The reference range was not u sed to interpret this result as normal/abnormal . Chloride (test code = 103 See_Comment [Auto mated message] The ) system which ge nerated this result tra nsmitted reference range : 98 - 107 mEq/L. The refe rence range was not u sed to interpret this result as normal/abnormal . CO2 (test code = 24 See_Comment [Automated message] The 2027-10) system which ge nerated this result tra nsmitted reference range : 22 - 29 mEq/L. The refe rence range was not u sed to interpret this result as normal/abnormal . Anion Gap (test code = 12 See_Comment [Aut omated message] The ) system which ge nerated this result tra nsmitted reference range : 4 - 14 mEq/L. The refe rence range was not u sed to interpret this result as normal/abnormal . [facility] [place] [id number] 13:42:45 Test Item Value Reference Range Interpretation Comments Sodium Lvl (test code = 139 See_Comment [Au tomated message] The 2950-03) system which ge nerated this result tra nsmitted reference range : 136 - 145 mEq/L. The reference range was not u sed to interpret this result as normal/abnormal . Potassium Lvl (test 4.7 See_Comment [Automa eugene message] The code = 2823-3) system which generated this result tra nsmitted reference range : 3.5 - 5.1 mEq/L. The reference range was not u sed to interpret this result as normal/abnormal . Chloride (test code = 103 See_Comment [Auto mated message] The ) system which ge nerated this result tra nsmitted reference range : 98 - 107 mEq/L. The refe rence range was not u sed to interpret this result as normal/abnormal . CO2 (test code = 24 See_Comment [Automated message] The 2027-10) system which ge nerated this result tra nsmitted reference range : 22 - 29 mEq/L. The refe rence range was not u sed to interpret this result as normal/abnormal . Anion Gap (test code = 12 See_Comment [Aut omated message] The ) system which ge nerated this result tra nsmitted reference range : 4 - 14 mEq/L. The refe rence range was not u sed to interpret this result as normal/abnormal . [facility] [id number] 13:42:45 Test Item Value Reference Range Interpretation Comments Sodium Lvl (test code = 139 See_Comment [Au tomated message] The 2950-03) system which ge nerated this result tra nsmitted reference range : 136 - 145 mEq/L. The reference range was not u sed to interpret this result as normal/abnormal . Potassium Lvl (test 4.7 See_Comment [Automa eugeen message] The code = 2823-3) system which generated this result tra nsmitted reference range : 3.5 - 5.1 mEq/L. The reference range was not u sed to interpret this result as normal/abnormal . Chloride (test code = 103 See_Comment [Auto mated message] The ) system which ge nerated this result tra nsmitted reference range : 98 - 107 mEq/L. The refe rence range was not u sed to interpret this result as normal/abnormal . CO2 (test code = 24 See_Comment [Automated message] The 2027-10) system which ge nerated this result tra nsmitted reference range : 22 - 29 mEq/L. The refe rence range was not u sed to interpret this result as normal/abnormal . Anion Gap (test code = 12 See_Comment [Aut omated message] The ) system which ge nerated this result tra nsmitted reference range : 4 - 14 mEq/L. The refe rence range was not u sed to interpret this result as normal/abnormal . [facility] [id number] 13:42:44 Test Item Value Reference Range Interpretation Comments Creatinine (test code = 2160-0) 0.37 mg/dL 0.51-0.95 L Lab Interpretation (test code = Abnormal 54695-1) [facility] [id number] 13:42:44 Test Item Value Reference Range Interpretation Comments Creatinine (test code = 2160-0) 0.37 mg/dL 0.51-0.95 L Lab Interpretation (test code = Abnormal 16168-7) [facility] [id number] 13:42:44 Test Item Value Reference Range Interpretation Comments Creatinine (test code = 2160-0) 0.37 mg/dL 0.51-0.95 L Lab Interpretation (test code = Abnormal 84194-4) [facility] Nzvzkarejq6540-48-78 13:42:44 Test Item Value Reference Range Interpretation Comments Creatinine (test code = 2160-0) 0.37 mg/dL 0.51-0.95 L Lab Interpretation (test code = Abnormal 82432-4) [facility] Wbskmmxeaj2482-38-04 13:42:44 Test Item Value Reference Range Interpretation Comments Creatinine (test code = 2160-0) 0.37 mg/dL 0.51-0.95 L Lab Interpretation (test code = Abnormal 04011-5) [facility]um [id number] 13:42:44 Test Item Value Reference Range Interpretation Comments Creatinine (test code = 2160-0) 0.37 mg/dL 0.51-0.95 L Lab Interpretation (test code = Abnormal 69050-8) [facility]um Xamwrbpmwx5589-96-12 13:42:44 Test Item Value Reference Range Interpretation Comments Creatinine (test code = 2160-0) 0.37 mg/dL 0.51-0.95 L Lab Interpretation (test code = Abnormal 81181-7) [facility] [id number] 13:42:43 Test Item Value Reference Range Interpretation Comments Glucose Level (test code 135 mg/dL 70-99 H Eff ective 09/20/15, = 2345-7) the glucose reference inter vals have been updat ed based on [place] Diabetes [employer] ation guidelines (Standards of Medical Care in Diabetes 2016. Diabetes Care 2 016; 39: S13-S22).Fa sting blood glucose:Normal: 70-99 mg/dLImpa ired fasting glucose (increased risk for diabetes or pre-diabetes): 100-125 mg/dLDiabetes mellitus: >/=12 6 mg/dL Random bl ood glucose:Normal: 70-199 mg/dLNot e: Random glucose >100 mg/dL is associ ated with increased risk for diabetes Lab Interpretation (test Abnormal code = 41176-6) [facility] [id number] 13:42:43 Test Item Value Reference Range Interpretation Comments Glucose Level (test code 135 mg/dL 70-99 H Eff ective 09/20/15, = 2345-7) the glucose reference inter vals have been updat ed based on [place] Diabetes [employer] ation guidelines (Standards of Medical Care in Diabetes 2016. Diabetes Care 2 016; 39: S13-S22).Fa sting blood glucose:Normal: 70-99 mg/dLImpa ired fasting glucose (increased risk for diabetes or pre-diabetes): 100-125 mg/dLDiabetes mellitus: >/=12 6 mg/dL Random bl ood glucose:Normal: 70-199 mg/dLNot e: Random glucose >100 mg/dL is associ ated with increased risk for diabetes Lab Interpretation (test Abnormal code = 48664-2) [facility] [id number] 13:42:43 Test Item Value Reference Range Interpretation Comments Glucose Level (test code 135 mg/dL 70-99 H Eff ective 09/20/15, = 2345-7) the glucose reference inter vals have been updat ed based on [place] Diabetes [employer] ation guidelines (Standards of Medical Care in Diabetes 2016. Diabetes Care 2 016; 39: S13-S22).Fa sting blood glucose:Normal: 70-99 mg/dLImpa ired fasting glucose (increased risk for diabetes or pre-diabetes): 100-125 mg/dLDiabetes mellitus: >/=12 6 mg/dL Random bl ood glucose:Normal: 70-199 mg/dLNot e: Random glucose >100 mg/dL is associ ated with increased risk for diabetes Lab Interpretation (test Abnormal code = 90961-9) [facility] [id number] 13:42:43 Test Item Value Reference Range Interpretation Comments Glucose Level (test code 135 mg/dL 70-99 H Eff ective 09/20/15, = 2345-7) the glucose reference inter vals have been updat ed based on [place] Diabetes [employer] ation guidelines (Standards of Medical Care in Diabetes 2016. Diabetes Care 2 016; 39: S13-S22).Fa sting blood glucose:Normal: 70-99 mg/dLImpa ired fasting glucose (increased risk for diabetes or pre-diabetes): 100-125 mg/dLDiabetes mellitus: >/=12 6 mg/dL Random bl ood glucose:Normal: 70-199 mg/dLNot e: Random glucose >100 mg/dL is associ ated with increased risk for diabetes Lab Interpretation (test Abnormal code = 85265-0) [facility] [id number] 13:42:43 Test Item Value Reference Range Interpretation Comments Glucose Level (test code 135 mg/dL 70-99 H Eff ective 09/20/15, = 2345-7) the glucose reference inter vals have been updat ed based on [place] Diabetes [employer] ation guidelines (Standards of Medical Care in Diabetes 2016. Diabetes Care 2 016; 39: S13-S22).Fa sting blood glucose:Normal: 70-99 mg/dLImpa ired fasting glucose (increased risk for diabetes or pre-diabetes): 100-125 mg/dLDiabetes mellitus: >/=12 6 mg/dL Random bl ood glucose:Normal: 70-199 mg/dLNot e: Random glucose >100 mg/dL is associ ated with increased risk for diabetes Lab Interpretation (test Abnormal code = 33828-3) [facility] [id number] 13:42:43 Test Item Value Reference Range Interpretation Comments Glucose Level (test code 135 mg/dL 70-99 H Eff ective 09/20/15, = 2345-7) the glucose reference inter vals have been updat ed based on [place] Diabetes [employer] ation guidelines (Standards of Medical Care in Diabetes 2016. Diabetes Care 2 016; 39: S13-S22).Fa sting blood glucose:Normal: 70-99 mg/dLImpa ired fasting glucose (increased risk for diabetes or pre-diabetes): 100-125 mg/dLDiabetes mellitus: >/=12 6 mg/dL Random bl ood glucose:Normal: 70-199 mg/dLNot e: Random glucose >100 mg/dL is associ ated with increased risk for diabetes Lab Interpretation (test Abnormal code = 27267-0) [facility] [id number] 13:42:43 Test Item Value Reference Range Interpretation Comments Glucose Level (test code 135 mg/dL 70-99 H Eff ective 09/20/15, = 2345-7) the glucose reference inter vals have been updat ed based on [place] Diabetes [employer] ation guidelines (Standards of Medical Care in Diabetes 2016. Diabetes Care 2 016; 39: S13-S22).Fa sting blood glucose:Normal: 70-99 mg/dLImpa ired fasting glucose (increased risk for diabetes or pre-diabetes): 100-125 mg/dLDiabetes mellitus: >/=12 6 mg/dL Random bl ood glucose:Normal: 70-199 mg/dLNot e: Random glucose >100 mg/dL is associ ated with increased risk for diabetes Lab Interpretation (test Abnormal code = 43503-0) [facility] 13:42:42 Test Item Value Reference Range Interpretation Comments BUN (test code = 3094-0) 15 mg/dL 6- [facility] 13:42:42 Test Item Value Reference Range Interpretation Comments BUN (test code = 3094-0) 15 mg/dL - [facility] 13:42:42 Test Item Value Reference Range Interpretation Comments BUN (test code = 3094-0) 15 mg/dL 6- [facility] 13:42:42 Test Item Value Reference Range Interpretation Comments BUN (test code = 3094-0) 15 mg/dL 6- [facility] 13:42:42 Test Item Value Reference Range Interpretation Comments BUN (test code = 3094-0) 15 mg/dL - [facility] 13:42:42 Test Item Value Reference Range Interpretation Comments BUN (test code = 3094-0) 15 mg/dL 6- [facility] 13:42:42 Test Item Value Reference Range Interpretation Comments BUN (test code = 3094-0) 15 mg/dL 6- [facility] HospitalCalcium Ionized, [id number] 13:09:59 Test Item Value Reference Range Interpretation Comments V Ion Ca (test code = 30679-0) 1.13 mmol/L 1.15-1.29 L Lab Interpretation (test code = Abnormal 06747-1) [facility]Cal[facility] Ion[facility], [id number] 13:09:59 Test Item Value Reference Range Interpretation Comments V Ion Ca (test code = 48675-2) 1.13 mmol/L 1.15-1.29 L Lab Interpretation (test code = Abnormal 45213-7) [facility]Cal[facility], [id number] 13:09:59 Test Item Value Reference Range Interpretation Comments V Ion Ca (test code = 06367-6) 1.13 mmol/L 1.15-1.29 L Lab Interpretation (test code = Abnormal 40193-9) [facility], [id number] 13:09:59 Test Item Value Reference Range Interpretation Comments V Ion Ca (test code = 87969-4) 1.13 mmol/L 1.15-1.29 L Lab Interpretation (test code = Abnormal 58817-0) [facility], [id number] 13:09:59 Test Item Value Reference Range Interpretation Comments V Ion Ca (test code = 61196-8) 1.13 mmol/L 1.15-1.29 L Lab Interpretation (test code = Abnormal 08546-0) [facility]Cal[facility] Ion[facility], [id number] 13:09:59 Test Item Value Reference Range Interpretation Comments V Ion Ca (test code = 32179-4) 1.13 mmol/L 1.15-1.29 L Lab Interpretation (test code = Abnormal 55381-6) [facility], [id number] 13:09:59 Test Item Value Reference Range Interpretation Comments V Ion Ca (test code = 39824-0) 1.13 mmol/L 1.15-1.29 L Lab Interpretation (test code = Abnormal 94545-0) [facility]Cal[facility], [id number] 13:09:59 Test Item Value Reference Range Interpretation Comments V Ion Ca (test code = 83144-9) 1.13 mmol/L 1.15-1.29 L Lab Interpretation (test code = Abnormal 18917-1) [facility], [id number] 13:09:59 Test Item Value Reference Range Interpretation Comments V Ion Ca (test code = 47913-7) 1.13 mmol/L 1.15-1.29 L Lab Interpretation (test code = Abnormal 53998-1) [facility] HospitalHemoglobin [id number] 01:10:38 Test Item Value Reference Range Interpretation Comments A1C (test code = 4548-4) 8.4 % 4.3-5.6 H HbA 1c values >=6.5% are diagnostic of diabetes mellitus.Diagno sis should be confi rmed by repeat testing.Therape utic Action suggeste d: >8.0% HbA1c; Go al oftherapy: <7.0 % HbA1c Lab Interpretation (test Abnormal code = 79420-7) [facility] HospitalH[facility] [id number] 01:10:38 Test Item Value Reference Range Interpretation Comments A1C (test code = 4548-4) 8.4 % 4.3-5.6 H HbA 1c values >=6.5% are diagnostic of diabetes mellitus.Diagno sis should be confi rmed by repeat testing.Therape utic Action suggeste d: >8.0% HbA1c; Go al oftherapy: <7.0 % HbA1c Lab Interpretation (test Abnormal code = 39837-4) [facility] HospitalHem[facility] [id number] 01:10:38 Test Item Value Reference Range Interpretation Comments A1C (test code = 4548-4) 8.4 % 4.3-5.6 H HbA 1c values >=6.5% are diagnostic of diabetes mellitus.Diagno sis should be confi rmed by repeat testing.Therape utic Action suggeste d: >8.0% HbA1c; Go al oftherapy: <7.0 % HbA1c Lab Interpretation (test Abnormal code = 13474-6) [facility] [id number] 01:10:38 Test Item Value Reference Range Interpretation Comments A1C (test code = 4548-4) 8.4 % 4.3-5.6 H HbA 1c values >=6.5% are diagnostic of diabetes mellitus.Diagno sis should be confi rmed by repeat testing.Therape utic Action suggeste d: >8.0% HbA1c; Go al oftherapy: <7.0 % HbA1c Lab Interpretation (test Abnormal code = 72921-1) [facility] [id number] 01:10:38 Test Item Value Reference Range Interpretation Comments A1C (test code = 4548-4) 8.4 % 4.3-5.6 H HbA 1c values >=6.5% are diagnostic of diabetes mellitus.Diagno sis should be confi rmed by repeat testing.Therape utic Action suggeste d: >8.0% HbA1c; Go al oftherapy: <7.0 % HbA1c Lab Interpretation (test Abnormal code = 17205-4) [facility] [id number] 01:10:38 Test Item Value Reference Range Interpretation Comments A1C (test code = 4548-4) 8.4 % 4.3-5.6 H HbA 1c values >=6.5% are diagnostic of diabetes mellitus.Diagno sis should be confi rmed by repeat testing.Therape utic Action suggeste d: >8.0% HbA1c; Go al oftherapy: <7.0 % HbA1c Lab Interpretation (test Abnormal code = 80173-9) [facility] [id number] 01:10:38 Test Item Value Reference Range Interpretation Comments A1C (test code = 4548-4) 8.4 % 4.3-5.6 H HbA 1c values >=6.5% are diagnostic of diabetes mellitus.Diagno sis should be confi rmed by repeat testing.Therape utic Action suggeste d: >8.0% HbA1c; Go al oftherapy: <7.0 % HbA1c Lab Interpretation (test Abnormal code = 96752-1) [facility] [id number] 01:10:38 Test Item Value Reference Range Interpretation Comments A1C (test code = 4548-4) 8.4 % 4.3-5.6 H HbA 1c values >=6.5% are diagnostic of diabetes mellitus.Diagno sis should be confi rmed by repeat testing.Therape utic Action suggeste d: >8.0% HbA1c; Go al oftherapy: <7.0 % HbA1c Lab Interpretation (test Abnormal code = 04326-8) [facility] [id number] 01:10:38 Test Item Value Reference Range Interpretation Comments A1C (test code = 4548-4) 8.4 % 4.3-5.6 H HbA 1c values >=6.5% are diagnostic of diabetes mellitus.Diagno sis should be confi rmed by repeat testing.Therape utic Action suggeste d: >8.0% HbA1c; Go al oftherapy: <7.0 % HbA1c Lab Interpretation (test Abnormal code = 36553-2) [facility] 2022-04-01 22:26:00 Test Item Value Reference Range Interpretation Comments Ordered (test code = 6568) Test Added Test Needed (test code = 7604) Hemoglobin A1c [facility] 2022-04-01 22:26:00 Test Item Value Reference Range Interpretation Comments Ordered (test code = 6568) Test Added Test Needed (test code = 7604) Hemoglobin A1c [facility] 2022-04-01 22:26:00 Test Item Value Reference Range Interpretation Comments Ordered (test code = 6568) Test Added Test Needed (test code = 7604) Hemoglobin A1c [facility] 2022-04-01 22:26:00 Test Item Value Reference Range Interpretation Comments Ordered (test code = 6568) Test Added Test Needed (test code = 7604) Hemoglobin A1c [facility] 2022-04-01 22:26:00 Test Item Value Reference Range Interpretation Comments Ordered (test code = 6568) Test Added Test Needed (test code = 7604) Hemoglobin A1c [facility] 2022-04-01 22:26:00 Test Item Value Reference Range Interpretation Comments Ordered (test code = 6568) Test Added Test Needed (test code = 7604) Hemoglobin A1c [facility] 2022-04-01 22:26:00 Test Item Value Reference Range Interpretation Comments Ordered (test code = 6568) Test Added Test Needed (test code = 7604) Hemoglobin A1c [facility] 2022-04-01 22:26:00 Test Item Value Reference Range Interpretation Comments Ordered (test code = 6568) Test Added Test Needed (test code = 7604) Hemoglobin A1c [facility] Add-On Test 2022-04-01 22:26:00 Test Item Value Reference Range Interpretation Comments Ordered (test code = 6568) Test Added Test Needed (test code = 7604) Hemoglobin A1c [facility] HospitalBlood [id number] 21:53:52 Test Item Value Reference Range Interpretation Comments Final Report (test No growth code = 8488) Path Review - Immunity and antibiotic Bottle/Isolator use may render culture (test code = 8499) negative. Ongoing infection requires repeat culture. The results have been reviewed and electronically signed by Pathologist:Abiodun Vázquez MD, PhD #[id number] [facility]2023-02-06 21:53:52 Test Item Value Reference Range Interpretation Comments Final Report (test No growth code = 8488) Path Review - Immunity and antibiotic Bottle/Isolator use may render culture (test code = 8499) negative. Ongoing infection requires repeat culture. The results have been reviewed and electronically signed by Pathologist:Abiodun Vázquez MD, PhD #[id number] [facility]2023-02-06 21:53:52 Test Item Value Reference Range Interpretation Comments Final Report (test No growth code = 8488) Path Review - Immunity and antibiotic Bottle/Isolator use may render culture (test code = 8499) negative. Ongoing infection requires repeat culture. The results have been reviewed and electronically signed by Pathologist:Abiodun Vázquez MD, PhD #[id number] [facility]2023-02-06 21:53:52 Test Item Value Reference Range Interpretation Comments Final Report (test No growth code = 8488) Path Review - Immunity and antibiotic Bottle/Isolator use may render culture (test code = 8499) negative. Ongoing infection requires repeat culture. The results have been reviewed and electronically signed by Pathologist:Abiodun Vázquez MD, PhD #[id number] [facility]2023-02-06 21:53:52 Test Item Value Reference Range Interpretation Comments Final Report (test No growth code = 8488) Path Review - Immunity and antibiotic Bottle/Isolator use may render culture (test code = 8499) negative. Ongoing infection requires repeat culture. The results have been reviewed and electronically signed by Pathologist:Abiodun Vázquez MD, PhD #[id number] [facility]2023-02-06 21:53:52 Test Item Value Reference Range Interpretation Comments Final Report (test No growth code = 8488) Path Review - Immunity and antibiotic Bottle/Isolator use may render culture (test code = 8499) negative. Ongoing infection requires repeat culture. The results have been reviewed and electronically signed by Pathologist:Abiodun Vázquez MD, PhD #[id number] [facility]2023-02-06 21:53:52 Test Item Value Reference Range Interpretation Comments Final Report (test No growth code = 8488) Path Review - Immunity and antibiotic Bottle/Isolator use may render culture (test code = 8499) negative. Ongoing infection requires repeat culture. The results have been reviewed and electronically signed by Pathologist:Abiodun Vázquez MD, PhD #[id number] [facility]2023-02-06 21:53:52 Test Item Value Reference Range Interpretation Comments Final Report (test No growth code = 8488) Path Review - Immunity and antibiotic Bottle/Isolator use may render culture (test code = 8499) negative. Ongoing infection requires repeat culture. The results have been reviewed and electronically signed by Pathologist:Abiodun Vázquez MD, PhD #[id number] [facility]2023-02-06 21:53:52 Test Item Value Reference Range Interpretation Comments Final Report (test No growth code = 8488) Path Review - Immunity and antibiotic Bottle/Isolator use may render culture (test code = 8499) negative. Ongoing infection requires repeat culture. The results have been reviewed and electronically signed by Pathologist:Abiodun Vázquez MD, PhD #[id number] [facility] Interpretation Antibody Screen [id number] 19:22:14 Test Item Value Reference Range Interpretation Comments TMP Auto Neg At the present ABSC Interp time, patient (test code = plasma shows no ____MAYRIN C ORREA 7535) evidence of RBC MD REESE, P hD - alloantibodies. [id number] d by: Teresa BENSON, PhD - [id number] D ate/Time: 04.01.2022 13:2 2 PM TAX EXPERT Transcribed Chucky e/Time: 04.01.2022 13:2 2 PM CSTElectronical ly Signed By: VICKIE LEIGH MD, PhD - [id number] on 04.01.2022 1 3:22 PM [facility]ody Screen [id number] 19:22:14 Test Item Value Reference Range Interpretation Comments TMP Auto Neg At the present ABSC Interp time, patient (test code = plasma shows no ____MAYRIN C ORREA 7535) evidence of RBC MD REESE, P hD - alloantibodies. [id number] d by: Teresa BENSON, PhD - [id number] D ate/Time: 04.01.2022 13:2 2 PM TAX EXPERT Transcribed Chucky e/Time: 04.01.2022 13:2 2 PM CSTElectronical ly Signed By: VICKIE ELIGH MD, PhD - [id number] on 04.01.2022 1 3:22 PM [facility] Interpret[facility] Antibody Screen [id number] 19:22:14 Test Item Value Reference Range Interpretation Comments TMP Auto Neg At the present ABSC Interp time, patient (test code = plasma shows no ____MAYRIN C ORREA 7535) evidence of RBC MD REESE, P hD - alloantibodies. [id number] d by: Teresa BENSON, PhD - [id number] D ate/Time: 04.01.2022 13:2 2 PM TAX EXPERT Transcribed Chucky e/Time: 04.01.2022 13:2 2 PM CSTElectronical ly Signed By: VICKIE LEIGH MD, PhD - [id number] on 04.01.2022 1 3:[facility] [id number] 19:22:14 Test Item Value Reference Range Interpretation Comments TMP Auto Neg At the present ABSC Interp time, patient (test code = plasma shows no ____MAYRIN C ORREA 7535) evidence of RBC MD REESE, P hD - alloantibodies. [id number] d by: Teresa BENSON, PhD - [id number] D ate/Time: 04.01.2022 13:2 2 PM TAX EXPERT Transcribed Chucky e/Time: 04.01.2022 13:2 2 PM CSTElectronical ly Signed By: VICKIE LEIGH MD, PhD - [id number] on 04.01.2022 1 3:22 PM [facility] [id number] 19:22:14 Test Item Value Reference Range Interpretation Comments TMP Auto Neg At the present ABSC Interp time, patient (test code = plasma shows no ____MAYRIN C ORREA 7535) evidence of RBC MD LEIGH P hD - alloantibodies. [id number] d by: Teresa BENSON, PhD - [id number] D ate/Time: 04.01.2022 13:2 2 PM TAX EXPERT Transcribed Chucky e/Time: 04.01.2022 13:2 2 PM CSTElectronical ly Signed By: VICKIE LEIGH MD, PhD - [id number] on 04.01.2022 1 3:22 PM [facility] Interpretation Antibody Screen [id number] 19:22:14 Test Item Value Reference Range Interpretation Comments TMP Auto Neg At the present ABSC Interp time, patient (test code = plasma shows no ____MAYRIN C ORREA 7535) evidence of RBC MD LEIGH P hD - alloantibodies. [id number] d by: Teresa BENSON, PhD - [id number] D ate/Time: 04.01.2022 13:2 2 PM TAX EXPERT Transcribed Chucky e/Time: 04.01.2022 13:2 2 PM CSTElectronical ly Signed By: VICKIE LEIGH MD, PhD - [id number] on 04.01.2022 1 3:22 PM [facility] Interpretation Antibody Screen [id number] 19:22:14 Test Item Value Reference Range Interpretation Comments TMP Auto Neg At the present ABSC Interp time, patient (test code = plasma shows no ____MAYRIN C ORREA 7535) evidence of TRISHA LEIGH MD, P hD - alloantibodies. [id number] d by: Teresa BENSON, PhD - [id number] D ate/Time: 04.01.2022 13:2 2 PM TAX EXPERT Transcribed Chucky e/Time: 04.01.2022 13:2 2 PM CSTElectronical ly Signed By: VICKIE LEIGH MD, PhD - [id number] on 04.01.2022 1 3:22 PM [facility] Interpretation Antibody Screen [id number] 19:22:14 Test Item Value Reference Range Interpretation Comments TMP Auto Neg At the present ABSC Interp time, patient (test code = plasma shows no ____MAYRIN C ORREA 7535) evidence of RBC MD REESE, P hD - alloantibodies. [id number] d by: Teresa BENSON, PhD - [id number] D ate/Time: 04.01.2022 13:2 2 PM TAX EXPERT Transcribed Chucky e/Time: 04.01.2022 13:2 2 PM CSTElectronical ly Signed By: VICKIE LEIGH MD, PhD - [id number] on 04.01.2022 1 3:22 PM [facility] Interpretation Antibody Screen [id number] 19:22:14 Test Item Value Reference Range Interpretation Comments TMP Auto Neg At the present ABSC Interp time, patient (test code = plasma shows no ____MAYRIN C ORREA 7535) evidence of TRISHA LEIGH MD, P hD - alloantibodies. [id number] d by: Teresa BENSON, PhD - [id number] D ate/Time: 04.01.2022 13:2 2 PM TAX EXPERT Transcribed Chucky e/Time: 04.01.2022 13:2 2 PM CSTElectronical ly Signed By: VICKIE LEIGH MD, PhD - [id number] on 02.06.2023 1 3:22 PM [facility] [id number] 17:26:23 Test Item Value Reference Range Interpretation Comments ABSC. (test code = 890-4) Negative ABSC [facility] [id number] 17:26:23 Test Item Value Reference Range Interpretation Comments ABSC. (test code = 890-4) Negative ABSC [facility] [id number] 17:26:23 Test Item Value Reference Range Interpretation Comments ABSC. (test code = 890-4) Negative ABSC [facility] [id number] 17:26:23 Test Item Value Reference Range Interpretation Comments ABSC. (test code = 890-4) Negative ABSC [facility] [id number] 17:26:23 Test Item Value Reference Range Interpretation Comments ABSC. (test code = 890-4) Negative ABSC [facility] [id number] 17:26:23 Test Item Value Reference Range Interpretation Comments ABSC. (test code = 890-4) Negative ABSC [facility] [id number] 17:26:23 Test Item Value Reference Range Interpretation Comments ABSC. (test code = 890-4) Negative ABSC [facility] [id number] 17:26:23 Test Item Value Reference Range Interpretation Comments ABSC. (test code = 890-4) Negative ABSC [facility] [id number] 17:26:23 Test Item Value Reference Range Interpretation Comments ABSC. (test code = 890-4) Negative ABSC [facility] 17:22:24 Test Item Value Reference Range Interpretation Comments ABORh. (test code = 882-1) A POS [facility] 17:22:24 Test Item Value Reference Range Interpretation Comments ABORh. (test code = 882-1) A POS [facility] 17:22:24 Test Item Value Reference Range Interpretation Comments ABORh. (test code = 882-1) A POS [facility] 17:22:24 Test Item Value Reference Range Interpretation Comments ABORh. (test code = 882-1) A POS [facility]2023-02-06 17:22:24 Test Item Value Reference Range Interpretation Comments ABORh. (test code = 882-1) A POS [facility]2023-02-06 17:22:24 Test Item Value Reference Range Interpretation Comments ABORh. (test code = 882-1) A POS [facility]2023-02-06 17:22:24 Test Item Value Reference Range Interpretation Comments ABORh. (test code = 882-1) A POS [facility]2023-02-06 17:22:24 Test Item Value Reference Range Interpretation Comments ABORh. (test code = 882-1) A POS [facility]2023-02-06 17:22:24 Test Item Value Reference Range Interpretation Comments ABORh. (test code = 882-1) A POS [facility] [id number] 17:21:57 Test Item Value Reference Range Interpretation Comments T & S Expiration (test code = 04/04/20225317) [facility] [id number] 17:21:57 Test Item Value Reference Range Interpretation Comments T & S Expiration (test code = 04/04/20225317) [facility] [id number] 17:21:57 Test Item Value Reference Range Interpretation Comments T & S Expiration (test code = 04/04/20225317) [facility] [id number] 17:21:57 Test Item Value Reference Range Interpretation Comments T & S Expiration (test code = 04/04/20225317) [facility] [id number] 17:21:57 Test Item Value Reference Range Interpretation Comments T & S Expiration (test code = 04/04/20225317) [facility] [id number] 17:21:57 Test Item Value Reference Range Interpretation Comments T & S Expiration (test code = 04/04/20225317) [facility] [id number] 17:21:57 Test Item Value Reference Range Interpretation Comments T & S Expiration (test code = 04/04/20225317) [facility] [id number] 17:21:57 Test Item Value Reference Range Interpretation Comments T & S Expiration (test code = 04/04/20225317) [facility] [id number] 17:21:57 Test Item Value Reference Range Interpretation Comments T & S Expiration (test code = 04/04/20225317) [facility] [id number] 19:32:05 Test Item Value Reference Range Interpretation Comments POC Critical Comment See Note Test pe rformer notified (test code = 8955) Ordering Licensed Provider and /o r designee of POC Glucose Screen critical Results.. [facility] [id number] 19:32:05 Test Item Value Reference Range Interpretation Comments POC Critical Comment See Note Test pe rformer notified (test code = 8955) Ordering Licensed Provider and /o r designee of POC Glucose Screen critical Results.. [facility] [id number] 19:32:05 Test Item Value Reference Range Interpretation Comments POC Critical Comment See Note Test pe rformer notified (test code = 8955) Ordering Licensed Provider and /o r designee of POC Glucose Screen critical Results.. [facility] [id number] 19:32:05 Test Item Value Reference Range Interpretation Comments POC Critical Comment See Note Test pe rformer notified (test code = 8955) Ordering Licensed Provider and /o r designee of POC Glucose Screen critical Results.. [facility] [id number] 19:32:05 Test Item Value Reference Range Interpretation Comments POC Critical Comment See Note Test pe rformer notified (test code = 8955) Ordering Licensed Provider and /o r designee of POC Glucose Screen critical Results.. [facility] [id number] 19:32:05 Test Item Value Reference Range Interpretation Comments POC Critical Comment See Note Test pe rformer notified (test code = 8955) Ordering Licensed Provider and /o r designee of POC Glucose Screen critical Results.. [facility] [id number] 19:32:05 Test Item Value Reference Range Interpretation Comments POC Critical Comment See Note Test pe rformer notified (test code = 8955) Ordering Licensed Provider and /o r designee of POC Glucose Screen critical Results.. [facility]2023-02-04 19:32:05 Test Item Value Reference Range Interpretation Comments POC Critical Comment See Note Test pe rformer notified (test code = 8955) Ordering Licensed Provider and /o r designee of POC Glucose Screen critical Results.. [facility]2023-02-04 19:32:05 Test Item Value Reference Range Interpretation Comments POC Critical Comment See Note Test pe rformer notified (test code = 8955) Ordering Licensed Provider and /o r designee of POC [facility]17 Test Item Value Reference Range Interpretation Comments aPTT (test code = 27.7 See_Comment [Automate d message] The 20418-1) system which ge nerated this result transmit eugene reference range : 22.8 - 34.2 second(s). The reference range was not used to interpr et this result as nehemiah l/abnormal. [facility] 14:24:17 Test Item Value Reference Range Interpretation Comments aPTT (test code = 27.7 See_Comment [Automate d message] The 89227-4) system which ge nerated this result transmit eugene reference range : 22.8 - 34.2 second(s). The reference range was not used to interpr et this result as nehemiah l/abnormal. [facility] 14:24:17 Test Item Value Reference Range Interpretation Comments aPTT (test code = 27.7 See_Comment [Automate d message] The 90853-9) system which ge nerated this result transmit eugene reference range : 22.8 - 34.2 second(s). The reference range was not used to interpr et this result as nehemiah l/abnormal. [facility] 14:24:17 Test Item Value Reference Range Interpretation Comments aPTT (test code = 27.7 See_Comment [Automate d message] The 85470-7) system which ge nerated this result transmit eugene reference range : 22.8 - 34.2 second(s). The reference range was not used to interpr et this result as nehemiah l/abnormal. [facility] 14:24:17 Test Item Value Reference Range Interpretation Comments aPTT (test code = 27.7 See_Comment [Automate d message] The 41748-3) system which ge nerated this result transmit eugene reference range : 22.8 - 34.2 second(s). The reference range was not used to interpr et this result as nehemiah l/abnormal. [place] 79824023-02-04 14:24:17 Test Item Value Reference Range Interpretation Comments aPTT (test code = 27.7 See_Comment [Automate d message] The 60502-9) system which ge nerated this result transmit eugene reference range : 22.8 - 34.2 second(s). The reference range was not used to interpr et this result as nehemiah l/abnormal. [facility] 14:24:17 Test Item Value Reference Range Interpretation Comments aPTT (test code = 27.7 See_Comment [Automate d message] The 30991-6) system which ge nerated this result transmit eugene reference range : 22.8 - 34.2 second(s). The reference range was not used to interpr et this result as nehemiah l/abnormal. [facility] 14:24:17 Test Item Value Reference Range Interpretation Comments aPTT (test code = 27.7 See_Comment [Automate d message] The 06436-7) system which ge nerated this result transmit eugene reference range : 22.8 - 34.2 second(s). The reference range was not used to interpr et this result as nehemiah l/abnormal. [facility] 14:24:17 Test Item Value Reference Range Interpretation Comments aPTT (test code = 27.7 See_Comment [Automate d message] The 48082-0) system which ge nerated this result transmit eugene reference range : 22.8 - 34.2 second(s). The reference range was not used to interpr et this result as nehemiah l/abnormal. [facility], [id number] 16:29:18 Test Item Value Reference Range Interpretation Comments V Lactate (test code = 2519-7) 0.9 mmol/L 0.5-1.6 [facility] Azlectic Acid, [id number] 16:29:18 Test Item Value Reference Range Interpretation Comments V Lactate (test code = 2519-7) 0.9 mmol/L 0.5-1.6 [facility] Azlectic Acid, [id number] 16:29:18 Test Item Value Reference Range Interpretation Comments V Lactate (test code = 2519-7) 0.9 mmol/L 0.5-1.6 [facility], [id number] 16:29:18 Test Item Value Reference Range Interpretation Comments V Lactate (test code = 2519-7) 0.9 mmol/L 0.5-1.6 [facility], [id number] 16:29:18 Test Item Value Reference Range Interpretation Comments V Lactate (test code = 2519-7) 0.9 mmol/L 0.5-1.6 [facility], [id number] 16:29:18 Test Item Value Reference Range Interpretation Comments V Lactate (test code = 2519-7) 0.9 mmol/L 0.5-1.6 [facility], [id number] 16:29:18 Test Item Value Reference Range Interpretation Comments V Lactate (test code = 2519-7) 0.9 mmol/L 0.5-1.6 [facility], [id number] 16:29:18 Test Item Value Reference Range Interpretation Comments V Lactate (test code = 2519-7) 0.9 mmol/L 0.5-1.6 [facility], [id number] 16:29:18 Test Item Value Reference Range Interpretation Comments V Lactate (test code = 2519-7) 0.9 mmol/L 0.5-1.6 [facility] 16:28:43 Test Item Value Reference Range Interpretation Comments pH Art (test code = 7.49 7.35-7.45 H Results are 2744-1) corrected for a body temp of 37C. pCO2 Art (test code = 37.7 See_Comment [Auto mated message] 2018-09) The system [employer] generated this result transmit eugene reference range : 32.0 - 45.0 mmH g. The reference r ashley was not used to interpret this result as normal/abnormal . pO2 Art (test code = 96 See_Comment [Autom ated message] 75704-30) The system [employer] generated this result transmit eugene reference range : 83 - 108 mmHg. The reference range was not used to interpret this result as normal/abnormal . HCO3 Art (test code = 28 mmol/L -1959-4) Base Excess Art (test 5 mmol/L -2-3 H code = 1925-7) O2 Sat Art (test code = 97 % 95-99 2708-6) Lab Interpretation (test Abnormal code = 95046-3) [facility] 16:28:43 Test Item Value Reference Range Interpretation Comments pH Art (test code = 7.49 7.35-7.45 H Results are 2744-1) corrected for a body temp of 37C. pCO2 Art (test code = 37.7 See_Comment [Auto mated message] 2018-09) The system [employer] generated this result transmit eugene reference range : 32.0 - 45.0 mmH g. The reference r ashley was not used to interpret this result as normal/abnormal . pO2 Art (test code = 96 See_Comment [Autom ated message] 6119-7) The system [employer] generated this result transmit eugene reference range : 83 - 108 mmHg. The reference range was not used to interpret this result as normal/abnormal . HCO3 Art (test code = 28 mmol/L -1959-) Base Excess Art (test 5 mmol/L -2-3 H code = 1925-7) O2 Sat Art (test code = 97 % 95-99 2708-6) Lab Interpretation (test Abnormal code = 41042-8) [facility] 16:28:43 Test Item Value Reference Range Interpretation Comments pH Art (test code = 7.49 7.35-7.45 H Results are 2744-1) corrected for a body temp of 37C. pCO2 Art (test code = 37.7 See_Comment [Auto mated message] 2018-09) The system [employer] generated this result transmit eugene reference range : 32.0 - 45.0 mmH g. The reference r ashley was not used to interpret this result as normal/abnormal . pO2 Art (test code = 96 See_Comment [Autom ated message] 7) The system [employer] generated this result transmit eugene reference range : 83 - 108 mmHg. The reference range was not used to interpret this result as normal/abnormal . HCO3 Art (test code = 28 mmol/L 1959-05) Base Excess Art (test 5 mmol/L -2-3 H code = 1925-7) O2 Sat Art (test code = 97 % 95-99 2708-6) Lab Interpretation (test Abnormal code = 35489-3) [facility] 16:28:43 Test Item Value Reference Range Interpretation Comments pH Art (test code = 7.49 7.35-7.45 H Results are 2744-1) corrected for a body temp of 37C. pCO2 Art (test code = 37.7 See_Comment [Auto mated message] 2018-09) The system [employer] generated this result transmit eugene reference range : 32.0 - 45.0 mmH g. The reference r ashley was not used to interpret this result as normal/abnormal . pO2 Art (test code = 96 See_Comment [Autom ated message] 3-7) The system [employer] generated this result transmit eugene reference range : 83 - 108 mmHg. The reference range was not used to interpret this result as normal/abnormal . HCO3 Art (test code = 28 mmol/L -1959-05) Base Excess Art (test 5 mmol/L -2-3 H code = 1925-7) O2 Sat Art (test code = 97 % 95-99 2708-6) Lab Interpretation (test Abnormal code = 75355-7) [facility] 16:28:43 Test Item Value Reference Range Interpretation Comments pH Art (test code = 7.49 7.35-7.45 H Results are 2744-1) corrected for a body temp of 37C. pCO2 Art (test code = 37.7 See_Comment [Auto mated message] 2018-09) The system [employer] generated this result transmit eugene reference range : 32.0 - 45.0 mmH g. The reference r ashley was not used to interpret this result as normal/abnormal . pO2 Art (test code = 96 See_Comment [Autom ated message] 2702-08) The system [employer] generated this result transmit eugene reference range : 83 - 108 mmHg. The reference range was not used to interpret this result as normal/abnormal . HCO3 Art (test code = 28 mmol/L 1959-05) Base Excess Art (test 5 mmol/L -2-3 H code = 1925-7) O2 Sat Art (test code = 97 % 95-99 2708-6) Lab Interpretation (test Abnormal code = 60698-9) [facility] 16:28:43 Test Item Value Reference Range Interpretation Comments pH Art (test code = 7.49 7.35-7.45 H Results are 2744-1) corrected for a body temp of 37C. pCO2 Art (test code = 37.7 See_Comment [Auto mated message] 2018-09) The system [employer] generated this result transmit eugene reference range : 32.0 - 45.0 mmH g. The reference r ashley was not used to interpret this result as normal/abnormal . pO2 Art (test code = 96 See_Comment [Autom ated message] 7) The system [employer] generated this result transmit eugene reference range : 83 - 108 mmHg. The reference range was not used to interpret this result as normal/abnormal . HCO3 Art (test code = 28 mmol/L 1959-05) Base Excess Art (test 5 mmol/L -2-3 H code = 1925-7) O2 Sat Art (test code = 97 % 95-99 2708-6) Lab Interpretation (test Abnormal code = 62425-2) [facility] 16:28:43 Test Item Value Reference Range Interpretation Comments pH Art (test code = 7.49 7.35-7.45 H Results are 2744-1) corrected for a body temp of 37C. pCO2 Art (test code = 37.7 See_Comment [Auto mated message] 2018-09) The system [employer] generated this result transmit eugene reference range : 32.0 - 45.0 mmH g. The reference r ashley was not used to interpret this result as normal/abnormal . pO2 Art (test code = 96 See_Comment [Autom ated message] 2702-08) The system [employer] generated this result transmit eugene reference range : 83 - 108 mmHg. The reference range was not used to interpret this result as normal/abnormal . HCO3 Art (test code = 28 mmol/L 1959-05) Base Excess Art (test 5 mmol/L -2-3 H code = 1925-7) O2 Sat Art (test code = 97 % 95-99 2708-6) Lab Interpretation (test Abnormal code = 90773-8) [facility] 16:28:43 Test Item Value Reference Range Interpretation Comments pH Art (test code = 7.49 7.35-7.45 H Results are 2744-1) corrected for a body temp of 37C. pCO2 Art (test code = 37.7 See_Comment [Auto mated message] 2018-09) The system [employer] generated this result transmit eugene reference range : 32.0 - 45.0 mmH g. The reference r ashley was not used to interpret this result as normal/abnormal . pO2 Art (test code = 96 See_Comment [Autom ated message] 2702-08) The system [employer] generated this result transmit eugene reference range : 83 - 108 mmHg. The reference range was not used to interpret this result as normal/abnormal . HCO3 Art (test code = 28 mmol/L 1959-05) Base Excess Art (test 5 mmol/L -2-3 H code = 1925-7) O2 Sat Art (test code = 97 % 95-99 2708-6) Lab Interpretation (test Abnormal code = 88685-2) [facility] 16:28:43 Test Item Value Reference Range Interpretation Comments pH Art (test code = 7.49 7.35-7.45 H Results are 2744-1) corrected for a body temp of 37C. pCO2 Art (test code = 37.7 See_Comment [Auto mated message] 2018-09) The system [employer] generated this result transmit eugene reference range : 32.0 - 45.0 mmH g. The reference r ashley was not used to interpret this result as normal/abnormal . pO2 Art (test code = 96 See_Comment [Autom ated message] 2702-08) The system [employer] generated this result transmit eugene reference range : 83 - 108 mmHg. The reference range was not used to interpret this result as normal/abnormal . HCO3 Art (test code = 28 mmol/L 21-28 1959-4) Base Excess Art (test 5 mmol/L -2-3 H code = 1925-7) O2 Sat Art (test code = 97 % 95-99 2708-6) Lab Interpretation (test Abnormal code = 20759-7) [facility] Screening Ggdkike0593-30-40 01:26:33 Test Item Value Reference Range Interpretation Comments Final Report (test No Methicillin resistant code = 8488) Staphylococcus aureus isolated. Path Review (test The results have been code = 8492) reviewed and electronically signed by Pathologist:NORMAN CAMARILLO MD #[id number] [facility] Screening Hgblzfv4940-46-37 01:26:33 Test Item Value Reference Range Interpretation Comments Final Report (test No Methicillin resistant code = 8488) Staphylococcus aureus isolated. Path Review (test The results have been code = 8492) reviewed and electronically signed by Pathologist:NORMAN CAMARILLO MD #[id number] [facility] Screening Lnqqcsv3430-34-49 01:26:33 Test Item Value Reference Range Interpretation Comments Final Report (test No Methicillin resistant code = 8488) Staphylococcus aureus isolated. Path Review (test The results have been code = 8492) reviewed and electronically signed by Pathologist:NORMAN CAMARILLO MD [facility][id number] [facility] [id number] 01:26:33 Test Item Value Reference Range Interpretation Comments Final Report (test No Methicillin resistant code = 8488) Staphylococcus aureus isolated. Path Review (test The results have been code = 8492) reviewed and electronically signed by Pathologist:NORMAN CAMARILLO MD #[id number] [facility] Screening [id number] 01:26:33 Test Item Value Reference Range Interpretation Comments Final Report (test No Methicillin resistant code = 8488) Staphylococcus aureus isolated. Path Review (test The results have been code = 8492) reviewed and electronically signed by Pathologist:NORMAN CAMARILLO MD #[id number] [facility] Screening [id number] 01:26:33 Test Item Value Reference Range Interpretation Comments Final Report (test No Methicillin resistant code = 8488) Staphylococcus aureus isolated. Path Review (test The results have been code = 8492) reviewed and electronically signed by Pathologist:NORMAN CAMARILLO MD #[id number] [facility] [id number] 01:26:33 Test Item Value Reference Range Interpretation Comments Final Report (test No Methicillin resistant code = 8488) Staphylococcus aureus isolated. Path Review (test The results have been code = 8492) reviewed and electronically signed by Pathologist:NORMAN CAMARILLO MD #[id number] [facility] [id number] 01:26:33 Test Item Value Reference Range Interpretation Comments Final Report (test No Methicillin resistant code = 8488) Staphylococcus aureus isolated. Path Review (test The results have been code = 8492) reviewed and electronically signed by Pathologist:NORMAN CAMARILLO MD #[id number] [facility] [id number] 01:26:33 Test Item Value Reference Range Interpretation Comments Final Report (test No Methicillin resistant code = 8488) Staphylococcus aureus isolated. Path Review (test The results have been code = 8492) reviewed and electronically signed by Pathologist:NORMAN CAMARILLO MD #[id number] [facility] [id number] 01:26:32 Test Item Value Reference Range Interpretation Comments Final Report (test No growth code = 8488) Path Review (test The results have been code = 8492) reviewed and electronically signed by Pathologist:NORMAN CAMARILLO MD #[id number] Gram Stain Report Few WBC's seenNo organisms (test code = seen. 99219-2) [facility] Respiratory Culture w/Gram [id number] 01:26:32 Test Item Value Reference Range Interpretation Comments Final Report (test No growth code = 8488) Path Review (test The results have been code = 8492) reviewed and electronically signed by Pathologist:NORMAN CAMARILLO MD #[id number] Gram Stain Report Few WBC's seenNo organisms (test code = seen. 03398-5) [facility] Respiratory Culture w/Gram [id number] 01:26:32 Test Item Value Reference Range Interpretation Comments Final Report (test No growth code = 8488) Path Review (test The results have been code = 8492) reviewed and electronically signed by Pathologist:NORMAN CAMARILLO MD #[id number] Gram Stain Report Few WBC's seenNo organisms (test code = seen. 23149-7) [facility] Respiratory Culture w/Gram [id number] 01:26:32 Test Item Value Reference Range Interpretation Comments Final Report (test No growth code = 8488) Path Review (test The results have been code = 8492) reviewed and electronically signed by Pathologist:NORMAN CAMARILLO MD #[id number] Gram Stain Report Few WBC's seenNo organisms (test code = seen. 77637-3) [facility] Respiratory Culture w/Gram [id number] 01:26:32 Test Item Value Reference Range Interpretation Comments Final Report (test No growth code = 8488) Path Review (test The results have been code = 8492) reviewed and electronically signed by Pathologist:NORMAN CAMARILLO MD #[id number] Gram Stain Report Few WBC's seenNo organisms (test code = seen. 96637-5) [facility] Respiratory Culture w/Gram [id number] 01:26:32 Test Item Value Reference Range Interpretation Comments Final Report (test No growth code = 8488) Path Review (test The results have been code = 8492) reviewed and electronically signed by Pathologist:NORMAN CAMARILLO MD #[id number] Gram Stain Report Few WBC's seenNo organisms (test code = seen. 69316-1) [facility] Respiratory Culture w/Gram Enrgw5669-03-02 01:26:32 Test Item Value Reference Range Interpretation Comments Final Report (test No growth code = 8488) Path Review (test The results have been code = 8492) reviewed and electronically signed by Pathologist:NORMAN CAMARILLO MD #[id number] Gram Stain Report Few WBC's seenNo organisms (test code = seen. 92730-1) [facility] Respiratory Culture w/Gram [id number] 01:26:32 Test Item Value Reference Range Interpretation Comments Final Report (test No growth code = 8488) Path Review (test The results have been code = 8492) reviewed and electronically signed by Pathologist:NORMAN CAMARILLO MD #[id number] Gram Stain Report Few WBC's seenNo organisms (test code = seen. 97975-3) [facility] Ayfiw1293-04-13 01:26:32 Test Item Value Reference Range Interpretation Comments Final Report (test No growth code = 8488) Path Review (test The results have been code = 8492) reviewed and electronically signed by Pathologist:NORMAN CAMARILLO MD #[id number] Gram Stain Report Few WBC's seenNo organisms (test code = seen. 02659-0) [facility] before dose due at 1230 today.2022-03-28 18:46:39 Test Item Value Reference Range Interpretation Comments Vanco Trough 9.7 See_Comment Toxic Trough Le jose alfredo: >20 (test code = mcg/mL [Automat ed 4092-3) message] The sy stem which generated this result transmit eugene reference range : 5.0 - 20.0 mcg/mL. Th e reference range was not used to interpr et this result as normal/abnormal . Vanco Tr Dose See note Level, date, a nd time of Time (test code previous dos e is not = 30043-3) availablefor th is sample. The chucky e reported is the samplecollectio n date. Vanco Tr Dose 03/28/2022 Level, date, a nd time of Date (test code previous dos e is not = 08823-6) availablefor is sample. The chucky e reported is the samplecollectio n date. CHANDRAKANT (test code Draw before = CHANDRAKANT) dose due at 1230 today. [facility] before dose due at 1230 today.2022-03-28 18:46:39 Test Item Value Reference Range Interpretation Comments Vanco Trough 9.7 See_Comment Toxic Trough Le jose alfredo: >20 (test code = mcg/mL [Automat ed 4092-3) message] The sy stem which generated this result transmit eugene reference range : 5.0 - 20.0 mcg/mL. Th e reference range was not used to interpr et this result as normal/abnormal . Vanco Tr Dose See note Level, date, a nd time of Time (test code previous dos e is not = 94192-7) availablefor is sample. The chucky e reported is the samplecollectio n date. Vanco Tr Dose 03/28/2022 Level, date, a nd time of Date (test code previous dos e is not = 63679-9) availablefor is sample. The chucky e reported is the samplecollectio n date. CHANDRAKANT (test code Draw before = CHANDRAKANT) dose due at 1230 today. [facility] before dose due at 1230 today.2022-03-28 18:46:39 Test Item Value Reference Range Interpretation Comments Vanco Trough 9.7 See_Comment Toxic Trough Le jose alfredo: >20 (test code = mcg/mL [Automat ed 4092-3) message] The sy stem which generated this result transmit eugene reference range : 5.0 - 20.0 mcg/mL. Th e reference range was not used to interpr et this result as normal/abnormal . Vanco Tr Dose See note Level, date, a nd time of Time (test code previous dos e is not = 04069-1) availablefor is sample. The chucky e reported is the samplecollectio n date. Vanco Tr Dose 03/28/2022 Level, date, a nd time of Date (test code previous dos e is not = 95739-4) availablefor is sample. The chucky e reported is the samplecollectio n date. CHANDRAKANT (test code Draw before = CHANDRAKANT) dose due at 1230 today. [facility] before dose due at 1230 today.2022-03-28 18:46:39 Test Item Value Reference Range Interpretation Comments Vanco Trough 9.7 See_Comment Toxic Trough Le jose alfredo: >20 (test code = mcg/mL [Automat ed 4092-3) message] The sy stem which generated this result transmit eugene reference range : 5.0 - 20.0 mcg/mL. Th e reference range was not used to interpr et this result as normal/abnormal . Vanco Tr Dose See note Level, date, a nd time of Time (test code previous dos e is not = 62439-4) availablefor is sample. The chucky e reported is the samplecollectio n date. Vanco Tr Dose 03/28/2022 Level, date, a nd time of Date (test code previous dos e is not = 52062-1) availablefor is sample. The chucky e reported is the samplecollectio n date. CHANDRAKANT (test code Draw before = CHANDRAKANT) dose due at 1230 today. [facility] before dose due at 1230 today.2022-03-28 18:46:39 Test Item Value Reference Range Interpretation Comments Vanco Trough 9.7 See_Comment Toxic Trough Le jose alfredo: >20 (test code = mcg/mL [Automat ed 4092-3) message] The sy stem which generated this result transmit eugene reference range : 5.0 - 20.0 mcg/mL. Th e reference range was not used to interpr et this result as normal/abnormal . Vanco Tr Dose See note Level, date, a nd time of Time (test code previous dos e is not = 54117-8) availablefor is sample. The chucky e reported is the samplecollectio n date. Vanco Tr Dose 03/28/2022 Level, date, a nd time of Date (test code previous dos e is not = 06221-5) availablefor is sample. The chucky e reported is the samplecollectio n date. CHANDRAKANT (test code Draw before = CHANDRAKANT) dose due at 1230 today. [facility] Draw before dose due at 1230 today.2022-03-28 18:46:39 Test Item Value Reference Range Interpretation Comments Vanco Trough 9.7 See_Comment Toxic Trough Le jose alfredo: >20 (test code = mcg/mL [Automat ed 4092-3) message] The sy stem which generated this result transmit eugene reference range : 5.0 - 20.0 mcg/mL. Th e reference range was not used to interpr et this result as normal/abnormal . Vanco Tr Dose See note Level, date, a nd time of Time (test code previous dos e is not = 45936-7) availablefor th is sample. The chucky e reported is the samplecollectio n date. Vanco Tr Dose 03/28/2022 Level, date, a nd time of Date (test code previous dos e is not = 97841-7) availablefor is sample. The chucky e reported is the samplecollectio n date. CHANDRAKANT (test code Draw before = CHANDRAKANT) dose due at 1230 today. [facility] Draw before dose due at 1230 today.2022-03-28 18:46:39 Test Item Value Reference Range Interpretation Comments Vanco Trough 9.7 See_Comment Toxic Trough Le jose alfredo: >20 (test code = mcg/mL [Automat ed 4092-3) message] The sy stem which generated this result transmit eugene reference range : 5.0 - 20.0 mcg/mL. Th e reference range was not used to interpr et this result as normal/abnormal . Vanco Tr Dose See note Level, date, a nd time of Time (test code previous dos e is not = 10346-4) availablefor th is sample. The chucky e reported is the samplecollectio n date. Vanco Tr Dose 03/28/2022 Level, date, a nd time of Date (test code previous dos e is not = 25731-8) availablefor is sample. The chucky e reported is the samplecollectio n date. CHANDRAKANT (test code Draw before = CHANDRAKANT) dose due at 1230 today. [facility] Draw before dose due at 1230 today.2022-03-28 18:46:39 Test Item Value Reference Range Interpretation Comments Vanco Trough 9.7 See_Comment Toxic Trough Le jose alfredo: >20 (test code = mcg/mL [Automat ed 4092-3) message] The sy stem which generated this result transmit eugene reference range : 5.0 - 20.0 mcg/mL. Th e reference range was not used to interpr et this result as normal/abnormal . Vanco Tr Dose See note Level, date, a nd time of Time (test code previous dos e is not = 44998-3) availablefor is sample. The chucky e reported is the samplecollectio n date. Vanco Tr Dose 03/28/2022 Level, date, a nd time of Date (test code previous dos e is not = 57133-2) availablefor is sample. The chucky e reported is the samplecollectio n date. CHANDRAKANT (test code Draw before = CHANDRAKANT) dose due at 1230 today. [facility] Draw before dose due at 1230 today.2022-03-28 18:46:39 Test Item Value Reference Range Interpretation Comments Vanco Trough 9.7 See_Comment Toxic Trough Le jose alfredo: >20 (test code = mcg/mL [Automat ed 4092-3) message] The sy stem which generated this result transmit eugene reference range : 5.0 - 20.0 mcg/mL. Th e reference range was not used to interpr et this result as normal/abnormal . Vanco Tr Dose See note Level, date, a nd time of Time (test code previous dos e is not = 52538-1) availablefor is sample. The chucky e reported is the samplecollectio n date. Vanco Tr Dose 03/28/2022 Level, date, a nd time of Date (test code previous dos e is not = 80434-1) availablefor is sample. The chucky e reported is the samplecollectio n date. CHANDRAKANT (test code Draw before = CHANDRAKANT) dose due at 1230 today. [facility] - Follow [id number] 15:54:59 Test Item Value Reference Range Interpretation Comments EF (test code = 39 [id number]) PXN (test code Jeni Cardozo MD - = PXN) 02/02/2023 Echocardiographic ReportInterpretation SummaryLeft ventricular systolic function is moderately reduced.LV ejection fraction calculated using the bi-plane method of disks is 39 %B hump on Mitral valve M mode suggestive of increased filling pressuresRight ventricle is grossly normal in size and systolic function.There is no pericardial effusion.Compared to prior study, LV systolic function has improved.Left Ventricle:The left ventricle is normal in size. There is no thrombus. Left ventricular systolic function is moderately reduced. LV ejection fraction calculated using the bi-plane method of disks is 39 %. There is moderate global hypokinesis of the left ventricle.Cardiac Mechanics/Speckle Tracking Imaging:Speckle trackng imaging for longitudinal deformation measure was performed; the GLS is -12.7%. Abnormal global longitudinal peak systolic value.Diastology:Tissue Doppler was not obtained. B hump on Mitral valve M mode suggestive of increased filling pressures.Right Ventricle:Grossly normal size and systolic function.Atria:Atria are normal in size. Injection of agitated saline shows evidence of shunting at the intra-atrial level.Mitral Valve:The mitral valve is grossly normal. There is no mitral regurgitation noted.Tricuspid Valve:The tricuspid valve is not well visualized, but is grossly normal. There is trace tricuspid regurgitation. Unable to estimate RVSP due to lack of TR visualization.Aortic Valve:The aortic valve is trileaflet. The aortic valve opens well. No aortic regurgitation is present.Pulmonic Valve:The pulmonic valve is not well visualized. There is no pulmonic valvular regurgitation.Great Vessels:The aortic root is normal size. The inferior vena cava was not well visualized.Pericardium/Pleural :There is no pericardial effusion.MMode/2D Measurements IVSd: 0.65 cm LVIDd: 4.8 cm LVIDs: 3.7 cm LVPWd: 0.58 cmFS: 23.1 % EDV(MOD-A4C): 87.6 ml ESV(MOD-A4C): 53.7 ml EF(MOD-A4C): 38.7 %EDV(MOD-A2C): 98.6 mlESV(MOD-A2C): 62.1 ml EDV(MOD-bp): 95.2 mlEF(MOD-A2C): 37.0 % ESV(MOD-bp): 58.5 ml EF(MOD-bp): 38.6 %LAV(MOD-A2C): 22.3 ml EDV (MOD-bp) Index: 67.1 ml/m2LAV(MOD-A4C): 24.5 mlLAV(MOD-bp): 23.4 mlLAV(MOD-bp) Indexed: 16.5 ml/m2 RWT: 0.24 cmESV (MOD-bp) Index: 41.2 ml/x4Pfepmrx Measurements TR max jose alfredo: 233.3 cm/secTR max P.8 mmHg [facility] [place] 2D [place] - Follow [id number] 15:54:59 Test Item Value Reference Range Interpretation Comments EF (test code = 39 [id number]) PXN (test code Jeni Cardozo MD - = PXN) 03/28/2022 Echocardiographic ReportInterpretation SummaryLeft ventricular systolic function is moderately reduced.LV ejection fraction calculated using the bi-plane method of disks is 39 %B hump on Mitral valve M mode suggestive of increased filling pressuresRight ventricle is grossly normal in size and systolic function.There is no pericardial effusion.Compared to prior study, LV systolic function has improved.Left Ventricle:The left ventricle is normal in size. There is no thrombus. Left ventricular systolic function is moderately reduced. LV ejection fraction calculated using the bi-plane method of disks is 39 %. There is moderate global hypokinesis of the left ventricle.Cardiac Mechanics/Speckle Tracking Imaging:Speckle trackng imaging for longitudinal deformation measure was performed; the GLS is -12.7%. Abnormal global longitudinal peak systolic value.Diastology:Tissue Doppler was not obtained. B hump on Mitral valve M mode suggestive of increased filling pressures.Right Ventricle:Grossly normal size and systolic function.Atria:Atria are normal in size. Injection of agitated saline shows evidence of shunting at the intra-atrial level.Mitral Valve:The mitral valve is grossly normal. There is no mitral regurgitation noted.Tricuspid Valve:The tricuspid valve is not well visualized, but is grossly normal. There is trace tricuspid regurgitation. Unable to estimate RVSP due to lack of TR visualization.Aortic Valve:The aortic valve is trileaflet. The aortic valve opens well. No aortic regurgitation is present.Pulmonic Valve:The pulmonic valve is not well visualized. There is no pulmonic valvular regurgitation.Great Vessels:The aortic root is normal size. The inferior vena cava was not well visualized.Pericardium/Pleural :There is no pericardial effusion.MMode/2D Measurements IVSd: 0.65 cm LVIDd: 4.8 cm LVIDs: 3.7 cm LVPWd: 0.58 cmFS: 23.1 % EDV(MOD-A4C): 87.6 ml ESV(MOD-A4C): 53.7 ml EF(MOD-A4C): 38.7 %EDV(MOD-A2C): 98.6 mlESV(MOD-A2C): 62.1 ml EDV(MOD-bp): 95.2 mlEF(MOD-A2C): 37.0 % ESV(MOD-bp): 58.5 ml EF(MOD-bp): 38.6 %LAV(MOD-A2C): 22.3 ml EDV (MOD-bp) Index: 67.1 ml/m2LAV(MOD-A4C): 24.5 mlLAV(MOD-bp): 23.4 mlLAV(MOD-bp) Indexed: 16.5 ml/m2 RWT: 0.24 cmESV (MOD-bp) Index: 41.2 ml/z1Jupooql Measurements TR max jose alfredo: 233.3 cm/secTR max P.8 mmHg [facility] [place]Antinuclear Antibody (ED) HEp-2 Substrate, [id number] 03:00:35 Test Item Value Reference Range Interpretation Comments ED HEp-2 See Footnote See_Comment RESULT: <1:80 ( Negative) Substrate (test -------ADDITI code = 45565-1) ONAL INFORMATION---- -----Method: Immunofluoresce nce using HEp-2 cellular substrate. Test Performed by:[facility] [employer] [id number] [employer] [place], [place] [address]J[employer] or: Nito jose M.D. Ph.D.; CLIA# 24 [id number] [Automated mess age] The system which ge nerated this result tra nsmitted reference range : <1:80 (Negative). The reference range was not u sed to interpret this result as normal/abnormal . [facility]Ant[facility] (ED) HEp-2 Substrate, [id number] 03:00:35 Test Item Value Reference Range Interpretation Comments ED HEp-2 See Footnote See_Comment RESULT: <1:80 ( Negative) Substrate (test -------ADDITI code = 20744-9) ONAL INFORMATION---- -----Method: Immunofluoresce nce using HEp-2 cellular substrate. Test Performed by:[facility] [employer] [id number] [employer] [place], [place] [address] or: Nito jose M.D. Ph.D.; CLIA# 24 [id number] [Comprehensive Care] The system which ge nerated this result tra nsmitted reference range : <1:80 (Negative). The reference range was not u sed to interpret this result as normal/abnormal . [facility] (ED) HEp-2 Substrate, [id number] 03:00:35 Test Item Value Reference Range Interpretation Comments ED HEp-2 See Footnote See_Comment RESULT: <1:80 ( Negative) Substrate (test -------ADDITI code = 66638-8) ONAL INFORMATION---- -----Method: Immunofluoresce nce using HEp-2 cellular substrate. Test Performed by:[facility] [employer] [id number] [place], [place] [address]Log [employer] or: Nito jose M.D. Ph.D.; CLIA# 24 [id number] [Automated Wealth Access age] The system which ge nerated this result tra nsmitted reference range : <1:80 (Negative). The reference range was not u sed to interpret this result as normal/abnormal . [facility] (ED) HEp-2 Substrate, [id number] 03:00:35 Test Item Value Reference Range Interpretation Comments ED HEp-2 See Footnote See_Comment RESULT: <1:80 ( Negative) Substrate (test -------ADDITI code = 77933-6) ONAL INFORMATION---- -----Method: Immunofluoresce nce using HEp-2 cellular substrate. Test Performed by:[facility] [employer] [id number] [place], [place] [address]F[employer] or: Nito jose M.D. Ph.D.; CLIA# 24 [id number] [Automated Wealth Access age] The system which ge nerated this result tra nsmitted reference range : <1:80 (Negative). The reference range was not u sed to interpret this result as normal/abnormal . [facility] (ED) HEp-2 Substrate, [id number] 03:00:35 Test Item Value Reference Range Interpretation Comments ED HEp-2 See Footnote See_Comment RESULT: <1:80 ( Negative) Substrate (test -------ADDITI code = 90298-7) ONAL INFORMATION---- -----Method: Immunofluoresce nce using HEp-2 cellular substrate. Test Performed by:[facility] [employer] [id number] [employer] [place], [place] [address]D[employer] or: Nito jose M.D. Ph.D.; CLIA# 24 [id number] [Automated Wealth Access age] The system which ge nerated this result tra nsmitted reference range : <1:80 (Negative). The reference range was not u sed to interpret this result as normal/abnormal . [facility] (ED) HEp-2 Substrate, [id number] 03:00:35 Test Item Value Reference Range Interpretation Comments ED HEp-2 See Footnote See_Comment RESULT: <1:80 ( Negative) Substrate (test -------ADDITI code = 55409-0) ONAL INFORMATION---- -----Method: Immunofluoresce nce using HEp-2 cellular substrate. Test Performed by:[facility] [employer] [id number] [employer] [place], [place] [address]W[employer] or: Nito jose M.D. Ph.D.; CLIA# 24 [id number] [Automated mess age] The system which ge nerated this result tra nsmitted reference range : <1:80 (Negative). The reference range was not u sed to interpret this result as normal/abnormal . [facility] (ED) HEp-2 Substrate, [id number] 03:00:35 Test Item Value Reference Range Interpretation Comments ED HEp-2 See Footnote See_Comment RESULT: <1:80 ( Negative) Substrate (test -------ADDITI code = 13760-2) ONAL INFORMATION---- -----Method: Immunofluoresce nce using HEp-2 cellular substrate. Test Performed by:[facility] [employer] [id number] [employer] [place], [place] [address]E[employer] or: Nito jose M.D. Ph.D.; CLIA# 24 [id number] [Automated mess age] The system which ge nerated this result tra nsmitted reference range : <1:80 (Negative). The reference range was not u sed to interpret this result as normal/abnormal . [facility] (ED) HEp-2 Substrate, [id number] 03:00:35 Test Item Value Reference Range Interpretation Comments ED HEp-2 See Footnote See_Comment RESULT: <1:80 ( Negative) Substrate (test -------ADDITI code = 33976-8) ONAL INFORMATION---- -----Method: Immunofluoresce nce using HEp-2 cellular substrate. Test Performed by:[facility] [address] [place], [place] [address] or: Nito jose M.D. Ph.D.; CLIA# 24 [id number] [Automated mess age] The system which ge nerated this result tra nsmitted reference range : <1:80 (Negative). The reference range was not u sed to interpret this result as normal/abnormal . [facility] ([facility]) HEp-2 Substrate, [id number] 03:00:35 Test Item Value Reference Range Interpretation Comments ED HEp-2 See Footnote See_Comment RESULT: <1:80 ( Negative) Substrate (test -------ADDITI code = 67340-4) ONAL INFORMATION---- -----Method: Immunofluoresce nce using HEp-2 cellular substrate. Test Performed by:[facility] [employer] [place], [place] [address]J[employer] Direct or: Nito jose M.D. Ph.D.; CLIA# [id number] [Automated mess age] The system which ge nerated this result tra nsmitted reference range : <1:80 (Negative). The reference range was not u sed to interpret this result as normal/abnormal . [facility] [id number] 01:35:56Streptococcal Urine Antigen Path ReviewReviewed and Electronically signed by Pathologist:NORMAN CAMARILLO MD #0942 [facility]Un[facility] of Austintreptococcal Urine Antigen Path [id number] 01:35:56Streptococcal Urine Antigen Path ReviewReviewed and Electronically signed by Pathologist:NORMAN CAMARILLO MD #0941 [facility]Un[facility] Streptococcal Urine Antigen Path Uaujjk9697-42-20 01:35:56Streptococcal Urine Antigen Path ReviewReviewed and Electronically signed by Pathologist:NORMAN CAMARILLO MD #0950 [facility]ENTERUnHeart [facility] of Austintreptococcal Urine Antigen Path Sdxcnq2694-16-82 01:35:56 Streptococcal Urine Antigen Path ReviewReviewed and Electronically signed by Pathologist:NORMAN CAMARILLO MD #0990 [facility]ENTERUnHeart [facility] of Austintreptococcal Urine Antigen Path Review 2022-03-28 01:35:56Streptococcal Urine Antigen Path ReviewReviewed and Electronically signed by Pathologist:NORMAN CAMARILLO MD #0990 [facility]ENTERUnHeart [facility] of Austintreptococcal Urine Antigen Path Ritrcp3155-04-13 01:35:56Streptococcal Urine Antigen Path ReviewReviewed and Electronically signed by Pathologist:NORMAN CAMARILLO MD #0990 [facility]ENTERUnLeg[facility] Streptococcal Urine Antigen Path [id number] 01:35:56Streptococcal Urine Antigen Path ReviewReviewed and Electronically signed by Pathologist:NORMAN CAMARILLO MD #0990 [facility]ENTERUnHeart Hospital of Austintreptococcal Urine Antigen Path [id number] 01:35:56 Streptococcal Urine Antigen Path ReviewReviewed and Electronically signed by Pathologist:NORMAN CAMARILLO MD #0990 [facility]ENTERUnHeart Hospital of Austintreptococcal Urine Antigen Path Review 2022-03-28 01:35:56Streptococcal Urine Antigen Path ReviewReviewed and Electronically signed by Pathologist:NORMAN CAMARILLO MD #0990 [facility]ENTERUnLegent Orthopedic HospitalLegionella Urine Antigen Path [id number] 01:35:55Legionella Urine Antigen Path ReviewReviewed and Electronically signed by Pathologist:NORMAN CAMARILLO MD #0990 [facility]ENTERUn[facility] Legionella Urine Antigen Path [id number] 01:35:55Legionella Urine Antigen Path ReviewReviewed and Electronically signed by Pathologist:NORMAN CAMARILLO MD #0990 [facility]ENTERUnLeg[facility] Orthopedic HospitalLegionella Urine Antigen Path [id number] 01:35:55Legionella Urine Antigen Path ReviewReviewed and Electronically signed by Pathologist:NORMAN CAMARILLO MD #0990 [facility]ENTERUnLegent Orthopedic HospitalLegionella Urine Antigen Path [id number] 01:35:55Legionella Urine Antigen Path ReviewReviewed and Electronically signed by Pathologist:NORMAN CAMARILLO MD #0990 [facility]ENTERUnLegent Orthopedic HospitalLegionella Urine Antigen Path [id number] 01:35:55Legionella Urine Antigen Path ReviewReviewed and Electronically signed by Pathologist:NORMAN CAMARILLO MD #0990 [facility] HospitalLegionella Urine Antigen Path [id number] 01:35:55Legionella Urine Antigen Path ReviewReviewed and Electronically signed by Pathologist:NORMAN CAMARILLO MD #0990 [facility]ENTERUnLegent Orthopedic HospitalLegionella Urine Antigen Path [id number] 01:35:55Legionella Urine Antigen Path ReviewReviewed and Electronically signed by Pathologist:NORMAN CAMARILLO MD #0990 [facility]ENTERUn[facility] Legionella Urine Antigen Path Ppqufn8448-69-01 01:35:55Legionella Urine Antigen Path ReviewReviewed and Electronically signed by Pathologist:NORMAN CAMARILLO MD #0990 [facility]ENTERUnLegent Orthopedic HospitalLegionella Urine Antigen Path [id number] 01:35:55Legionella Urine Antigen Path ReviewReviewed and Electronically signed by Pathologist:NORMAN CAMARILLO MD #0990 [facility]ENTERUnLegent Orthopedic HospitalMayo Miscellaneous [id number] 22:11:39 Test Item Value Reference Range Interpretation Comments Frye RL Test Result See Footnote A Test R esult Flag (test code = 6385) Unit RefValue------- --- --- --- --- Beta-Hydroxybut yra te, S 2.0 H mmo l/L <0.4 Test Performed by: [place] [address] [employer] Repairer: Scott Marie M.D. Ph.D.; CLIA# [id number] [facility] Test Name Beta-Hydroxybut (test code = 06018) yrate CHANDRAKANT (test code = CHANDRAKANT) Beta-Hydroxybut yrate Lab Interpretation Abnormal (test code = 65498-1) [facility] [id number] 22:11:39 Test Item Value Reference Range Interpretation Comments [facility] Test Result See Footnote A Test Re sult Flag (test code = 6385) Unit RefValue------- --- --- --- --- Beta-Hydroxybut yra te, S 2.0 H mmol/L <0.4 Michael t Performed by: [place] [address] [employer] Repairer: Scott Marie M.D. Ph.D.; CLIA# [id number] [facility] Test Name Beta-Hydroxybut (test code = 94367) yrate CHANDRAKANT (test code = CHANDRAKANT) Beta-Hydroxybut yrate Lab Interpretation Abnormal (test code = 90936-8) [facility] [id number] 22:11:39 Test Item Value Reference Range Interpretation Comments Manvel RL Test Result See Footnote A Test Re sult Flag (test code = 6385) Unit RefValue------- --- --- --- --- Beta-Hydroxybut yra te, S 2.0 H mmo l/L <0.4 Test Performed by: [place] [address] [employer] Repairer: Scott Marie M.D. Ph.D.; CLIA# [id number] [facility] Test Name Beta-Hydroxybut (test code = 24764) yrate CHANDRAKANT (test code = CHANDRAKANT) Beta-Hydroxybut yrate Lab Interpretation Abnormal (test code = 51315-6) [facility] [id number] 22:11:39 Test Item Value Reference Range Interpretation Comments [facility] Test Result See Footnote A Test Re sult Flag (test code = 6385) Unit RefValue------- --- --- --- --- Beta-Hydroxybut yra te, S 2.0 H mmo l/L <0.4 Test Performed by: [place] [address] [employer] Repairer: Scott Marie M.D. Ph.D.; CLIA# [id number] [facility] Test Name Beta-Hydroxybut (test code = 03066) yrate CHANDRAKANT (test code = CHANDRAKANT) Beta-Hydroxybut yrate Lab Interpretation Abnormal (test code = 45293-8) [facility] [id number] 22:11:39 Test Item Value Reference Range Interpretation Comments Frye RL Test Result See Footnote A Test R esult Flag (test code = 6385) Unit RefValue------- --- --- --- --- Beta-Hydroxybut yra te, S 2.0 H mmo l/L <0.4 Test Performed by: [place] [address] [employer] Repairer: Scott Marie M.D. Ph.D.; CLIA# [id number] [facility] Test Name Beta-Hydroxybut (test code = 32244) yrate CHANDRAKANT (test code = CHANDRAKANT) Beta-Hydroxybut yrate Lab Interpretation Abnormal (test code = 74583-3) [facility] [id number] 22:11:39 Test Item Value Reference Range Interpretation Comments [facility] Test Result See Footnote A Test Re sult Flag (test code = 6385) Unit RefValue------- --- --- --- --- Beta-Hydroxybut yra te, S 2.0 H mmo l/L <0.4 Test Performed by: [place] [address] [employer] Repairer: Scott Marie M.D. Ph.D.; CLIA# [id number] [facility] Test Name Beta-Hydroxybut (test code = 66929) yrate CHANDRAKANT (test code = CHANDRAKANT) Beta-Hydroxybut yrate Lab Interpretation Abnormal (test code = 69231-6) [facility] [id number] 22:11:39 Test Item Value Reference Range Interpretation Comments [facility] Test Result See Footnote A Test Re sult Flag (test code = 6385) Unit RefValue------- --- --- --- --- Beta-Hydroxybut yra te, S 2.0 H mmo l/L <0.4 Test Performed by: [place] [address] [employer] Repairer: Scott Marie M.D. Ph.D.; CLIA# [id number] [facility] Test Name Beta-Hydroxybut (test code = 20424) yrate CHANDRAKANT (test code = CHANDRAKANT) Beta-Hydroxybut yrate Lab Interpretation Abnormal (test code = 28699-4) [facility] [id number] 22:11:39 Test Item Value Reference Range Interpretation Comments Manvel RL Test Result See Footnote A Test Re sult Flag (test code = 6385) Unit RefValue------- --- --- --- --- Beta-Hydroxybut yra te, S 2.0 H mmo l/L <0.4 Test Performed by: [place] [address] [employer] Repairer: Scott Marie M.D. Ph.D.; CLIA# [id number] [facility] Test Name Beta-Hydroxybut (test code = 68951) yrate CHANDRAKANT (test code = CHANDRAKANT) Beta-Hydroxybut yrate Lab Interpretation Abnormal (test code = 65592-3) [facility] [id number] 22:11:39 Test Item Value Reference Range Interpretation Comments [facility] Test Result See Footnote A Test R esult Flag (test code = 6385) Unit RefValue------- --- --- --- --- Beta-Hydroxybut yra te, S 2.0 H mmo l/L <0.4 Test Performed by: [place] [address] [employer] Repairer: Scott Marie M.D. Ph.D.; CLIA# [id number] [employer] Test Name Beta-Hydroxybut (test code = 47476) yrate CHANDRAKANT (test code = CHANDRAKANT) Beta-Hydroxybut yrate Lab Interpretation Abnormal (test code = 27980-1) [facility] pneumoniae Urine [id number] 21:18:20 Test Item Value Reference Range Interpretation Comments Streptococcal Urine Antigen Negative Interpretation (test code = 25418144) [facility]ertreptococcus pneumoniae Urine [id number] 21:18:20 Test Item Value Reference Range Interpretation Comments Streptococcal Urine Antigen Negative Interpretation (test code = 74307726) [facility]reptococcus pneumoniae Urine [id number] 21:18:20 Test Item Value Reference Range Interpretation Comments Streptococcal Urine Antigen Negative Interpretation (test code = 61527256) [facility]ertreptococcus pneumoniae Urine Pjaikro1008-19-63 21:18:20 Test Item Value Reference Range Interpretation Comments Streptococcal Urine Antigen Negative Interpretation (test code = 99849988) [facility]reptococcus pneumoniae Urine Wltgulp6052-80-56 21:18:20 Test Item Value Reference Range Interpretation Comments Streptococcal Urine Antigen Negative Interpretation (test code = 06082332) [facility]ertreptococcus pneumoniae Urine [id number] 21:18:20 Test Item Value Reference Range Interpretation Comments Streptococcal Urine Antigen Negative Interpretation (test code = 40930436) [facility]ertreptococcus pneumoniae Urine [id number] 21:18:20 Test Item Value Reference Range Interpretation Comments Streptococcal Urine Antigen Negative Interpretation (test code = 66352229) [facility]ertreptococcus pneumoniae Urine [id number] 21:18:20 Test Item Value Reference Range Interpretation Comments Streptococcal Urine Antigen Negative Interpretation (test code = 56708145) [facility]ertreptococcus pneumoniae Urine [id number] 21:18:20 Test Item Value Reference Range Interpretation Comments Streptococcal Urine Antigen Negative Interpretation (test code = 39866144) [facility] HospitalLegionella Urine [id number] 21:16:26 Test Item Value Reference Range Interpretation Comments Legionella Urine Antigen Negative Interpretation (test code = 8486565) [facility] HospitalLegionella Urine Nnwvgpd3194-84-23 21:16:26 Test Item Value Reference Range Interpretation Comments Legionella Urine Antigen Negative Interpretation (test code = 6271082) [facility] HospitalLegionella Urine Raijsco9027-28-61 21:16:26 Test Item Value Reference Range Interpretation Comments Legionella Urine Antigen Negative Interpretation (test code = 4099667) [facility] HospitalLegionella Urine [id number] 21:16:26 Test Item Value Reference Range Interpretation Comments Legionella Urine Antigen Negative Interpretation (test code = 6789481) [facility] HospitalLegionella Urine Lbjttad3312-98-50 21:16:26 Test Item Value Reference Range Interpretation Comments Legionella Urine Antigen Negative Interpretation (test code = 4093746) [facility] HospitalLegionella Urine Mtqwrta4321-23-45 21:16:26 Test Item Value Reference Range Interpretation Comments Legionella Urine Antigen Negative Interpretation (test code = 1625469) [facility] HospitalLegionella Urine [id number] 21:16:26 Test Item Value Reference Range Interpretation Comments Legionella Urine Antigen Negative Interpretation (test code = 7390390) [facility] HospitalLegionella Urine [id number] 21:16:26 Test Item Value Reference Range Interpretation Comments Legionella Urine Antigen Negative Interpretation (test code = 6497483) [facility] HospitalLegionella Urine Dbyuncf9493-67-12 21:16:26 Test Item Value Reference Range Interpretation Comments Legionella Urine Antigen Negative Interpretation (test code = 0797451) [facility] HospitalAnti-Neutrophil Cytoplasmic Antibodies Vascultitis Fritp7025-77-33 20:47:30 Test Item Value Reference Range Interpretation Comments Myeloperox Ab-Frye <0.2 See_Comment [Automat ed message] The (test code = 46621-8) system which generated this result tra nsmitted reference range : <0.4 (Negative) Unit s. The reference range was not used to interpr et this result as normal/abnormal . Proteinase 3 Ab-Frye <0.2 See_Comment Test P erformed by:Uday (test code = 32394-3) [facility] [employer] [address] [employer] [address] [place], [place] [address]c Direct or: Nito jose M.D. Ph.D.; CLIA# 24 [id number] [Automated mess age] The system which ge nerated this result tra nsmitted reference range : <0.4 (Negative) Unit s. The reference range was not used to interpr et this result as normal/abnormal . [facility] HospitalAnti-Neutrophil Cytoplasmic Antibodies Vascultitis Narfn0297-48-01 20:47:30 Test Item Value Reference Range Interpretation Comments Myeloperox Ab-Frye <0.2 See_Comment [Automat ed message] The (test code = 57390-5) system which generated this result tra nsmitted reference range : <0.4 (Negative) Unit s. The reference range was not used to interpr et this result as normal/abnormal . Proteinase 3 Ab-Frye <0.2 See_Comment Test P erformed by:Manvel (test code = 51746-4) [facility] [address] [place], [place] [address] Direct or: Nito jose M.D. Ph.D.; CLIA# 24 [id number] [Automated mess age] The system which ge nerated this result tra nsmitted reference range : <0.4 (Negative) Unit s. The reference range was not used to interpr et this result as normal/abnormal . [facility] HospitalAnti-Neutrophil Cytoplasmic Antibodies Vascultitis [id number] 20:47:30 Test Item Value Reference Range Interpretation Comments Myeloperox Ab-Frye <0.2 See_Comment [Automat ed message] The (test code = 80800-0) system which generated this result tra nsmitted reference range : <0.4 (Negative) Unit s. The reference range was not used to interpr et this result as normal/abnormal . Proteinase 3 Ab-Frye <0.2 See_Comment Test P erformed by:Manvel (test code = 69169-1) [facility] [employer] [facility] [address] [place], [place] [address] or: Nito jose M.D. Ph.D.; CLIA# 24 [id number] [Automated mess age] The system which ge nerated this result tra nsmitted reference range : <0.4 (Negative) Unit s. The reference range was not used to interpr et this result as normal/abnormal . [facility] HospitalAnti-Neutrophil Cytoplasmic Antibodies Vascultitis Oaqbi4169-13-21 20:47:30 Test Item Value Reference Range Interpretation Comments Myeloperox Ab-Frye <0.2 See_Comment [Automat ed message] The (test code = 14836-8) system which generated this result tra nsmitted reference range : <0.4 (Negative) Unit s. The reference range was not used to interpr et this result as normal/abnormal . Proteinase 3 Ab-Frye <0.2 See_Comment Test P erformed by:Manvel (test code = 72289-8) [facility] [employer] [facility] [address] [place], [place] [address]Nrg Direct or: Nito jose M.D. Ph.D.; CLIA# 24 [id number] [Automated mess age] The system which ge nerated this result tra nsmitted reference range : <0.4 (Negative) Unit s. The reference range was not used to interpr et this result as normal/abnormal . [facility] HospitalAnti-Neutrophil Cytoplasmic Antibodies Vascultitis Lgyae6038-71-79 20:47:30 Test Item Value Reference Range Interpretation Comments Myeloperox Ab-Frye <0.2 See_Comment [Automat ed message] The (test code = 28646-7) system which generated this result tra nsmitted reference range : <0.4 (Negative) Unit s. The reference range was not used to interpr et this result as normal/abnormal . Proteinase 3 Ab-Frye <0.2 See_Comment Test P erformed by:Manvel (test code = 88373-6) [facility] [employer] [address] [place], [place] [address] Direct or: Nito jose M.D. Ph.D.; CLIA# 24 [id number] [Automated mess age] The system which ge nerated this result tra nsmitted reference range : <0.4 (Negative) Unit s. The reference range was not used to interpr et this result as normal/abnormal . [facility] Hospital[facility]-Neutrophil Cytoplasmic Antibodies Vascultitis Mtxgf2618-10-69 20:47:30 Test Item Value Reference Range Interpretation Comments Myeloperox Ab-Frye <0.2 See_Comment [Automat ed message] The (test code = 71515-7) system which generated this result tra nsmitted reference range : <0.4 (Negative) Unit s. The reference range was not used to interpr et this result as normal/abnormal . Proteinase 3 Ab-Frye <0.2 See_Comment Test P erformed by:Manvel (test code = 64683-0) [facility] [employer] [facility] [employer] [place] [id number] Direct or: Nito jose M.D. Ph.D.; CLIA# 24 [id number] [Automated mess age] The system which ge nerated this result tra nsmitted reference range : <0.4 (Negative) Unit s. The reference range was not used to interpr et this result as normal/abnormal . [facility] Hospital[facility]-Neutrophil Cytoplasmic Antibodies Vascultitis Ipuga7992-93-40 20:47:30 Test Item Value Reference Range Interpretation Comments Myeloperox Ab-Frye <0.2 See_Comment [Automat ed message] The (test code = 46758-8) system which generated this result tra nsmitted reference range : <0.4 (Negative) Unit s. The reference range was not used to interpr et this result as normal/abnormal . Proteinase 3 Ab-Frye <0.2 See_Comment Test P erformed by:Manvel (test code = 46940-5) [facility] [employer] [address] [place], [place] [address]Vdg Direct or: Nito jose M.D. Ph.D.; CLIA# 24 [id number] [Automated mess age] The system which ge nerated this result tra nsmitted reference range : <0.4 (Negative) Unit s. The reference range was not used to interpr et this result as normal/abnormal . [facility] Hospital[facility]-Neutrophil Cytoplasmic Antibodies Vascultitis [id number] 20:47:30 Test Item Value Reference Range Interpretation Comments Myeloperox Ab-Frye <0.2 See_Comment [Automat ed message] The (test code = 67949-6) system which generated this result tra nsmitted reference range : <0.4 (Negative) Unit s. The reference range was not used to interpr et this result as normal/abnormal . Proteinase 3 Ab-Frye <0.2 See_Comment Test P erformed by:Manvel (test code = 71338-4) [facility] [employer] [facility] [address] [place], [place] [address]Nsf Direct or: Nito jose M.D. Ph.D.; CLIA# 24 [id number] [Automated mess age] The system which ge nerated this result tra nsmitted reference range : <0.4 (Negative) Unit s. The reference range was not used to interpr et this result as normal/abnormal . [facility] Hospital[facility]utrophil Cytoplasmic Antibodies Vascultitis Xkzqx5810-98-87 20:47:30 Test Item Value Reference Range Interpretation Comments Myeloperox Ab-Frye <0.2 See_Comment [Automat ed message] The (test code = 79925-2) system which generated this result tra nsmitted reference range : <0.4 (Negative) Unit s. The reference range was not used to interpr et this result as normal/abnormal . Proteinase 3 Ab-Frye <0.2 See_Comment Test P erformed by:Manvel (test code = 67735-6) [facility] [employer] [facility] [place] [address] [place], [place] [address]Qra Direct or: Nito jose M.D. Ph.D.; CLIA# 24 [id number] [Automated mess age] The system which ge nerated this result tra nsmitted reference range : <0.4 (Negative) Unit s. The reference range was not used to interpr et this result as normal/abnormal . [facility] [place] [id number] 08:15:11 Test Item Value Reference Range Interpretation Comments CK (test code = 2157-6) 161 U/L 26-192 CK MB (test code = 2.6 ng/mL <=5.3 37300-2) Troponin T (test code = 80 ng/L <=18 A < 19 ng/L Suggest 41042-9) retest at 3 to 6 hours later to rule out myocardial infarction >= 1 9 to <=52 ng/L Possi ble myocardial inju ry. Suggest retest at 3 hours. - a jayden nge of < 20 ng/L, rete st at 6 hours - a jayden nge of >= 20 ng/L, suggestive of myocardial infa rction > 52 ng/L Sugge stive of myocardial infarction Crit ical value will be reported when c Amrit is > 52 ng/L and o nly reported for th e first in a seri es. Hemolyzed speci mens with Hemolysis Index >100 (100 mg/dl or moderate hemoly sis) may cause interferences a nd falsely low res ults. Lab Interpretation Abnormal (test code = 66177-5) [facility] [id number] 08:15:11 Test Item Value Reference Range Interpretation Comments CK (test code = 2157-6) 161 U/L 26-192 CK MB (test code = 2.6 ng/mL <=5.3 92603-1) Troponin T (test code = 80 ng/L <=18 A < 19 ng/L Suggest 23739-0) retest at 3 to 6 hours later to rule out myocardial infarction >= 1 9 to <=52 ng/L Possi ble myocardial inju ry. Suggest retest at 3 hours. - a jayden nge of < 20 ng/L, rete st at 6 hours - a jayden nge of >= 20 ng/L, suggestive of myocardial infa rction > 52 ng/L Sugg estive of myocardial infarction Crit ical value will be reported when c Amrit is > 52 ng/L and o nly reported for th e first in a seri es. Hemolyzed speci mens with Hemolysis Index >100 (100 mg/dl or moderate hemoly sis) may cause interferences a nd falsely low res ults. Lab Interpretation Abnormal (test code = 17241-1) [facility] [id number] 08:15:11 Test Item Value Reference Range Interpretation Comments CK (test code = 2157-6) 161 U/L 26-192 CK MB (test code = 2.6 ng/mL <=5.3 89739-0) Troponin T (test code = 80 ng/L <=18 A < 19 ng/L Suggest 04830-9) retest at 3 to 6 hours later to rule out myocardial infarction >= 1 9 to <=52 ng/L Possi ble myocardial inju ry. Suggest retest at 3 hours. - a jayden nge of < 20 ng/L, rete st at 6 hours - a jayden nge of >= 20 ng/L, suggestive of myocardial infa rction > 52 ng/L Sugg estive of myocardial infarction Crit ical value will be reported when c Amrit is > 52 ng/L and o nly reported for th e first in a seri es. Hemolyzed speci mens with Hemolysis Index >100 (100 mg/dl or moderate hemoly sis) may cause interferences a nd falsely low res ults. Lab Interpretation Abnormal (test code = 92967-0) [facility] [id number] 08:15:11 Test Item Value Reference Range Interpretation Comments CK (test code = 2157-6) 161 U/L 26-192 CK MB (test code = 2.6 ng/mL <=5.3 21211-4) Troponin T (test code = 80 ng/L <=18 A < 19 ng/L Suggest 33485-2) retest at 3 to 6 hours later to rule out myocardial infarction >= 1 9 to <=52 ng/L Possi ble myocardial inju ry. Suggest retest at 3 hours. - a oliva ge of < 20 ng/L, rete st at 6 hours - a jayden nge of >= 20 ng/L, suggestive of myocardial infa rction > 52 ng/L Sugg estive of myocardial infarction Crit ical value will be reported when c Amrit is > 52 ng/L and o nly reported for th e first in a seri es. Hemolyzed speci mens with Hemolysis Index >100 (100 mg/dl or moderate hemoly sis) may cause interferences a nd falsely low res ults. Lab Interpretation Abnormal (test code = 06584-2) [facility] [id number] 08:15:11 Test Item Value Reference Range Interpretation Comments CK (test code = 2157-6) 161 U/L 26-192 CK MB (test code = 2.6 ng/mL <=5.3 66367-8) Troponin T (test code = 80 ng/L <=18 A < 19 ng/L Suggest 55376-3) retest at 3 to 6 hours later to rule out myocardial infarction >= 1 9 to <=52 ng/L Possi ble myocardial inju ry. Suggest retest at 3 hours. - a oliva ge of < 20 ng/L, rete st at 6 hours - a jayden nge of >= 20 ng/L, suggestive of myocardial infa rction > 52 ng/L Sugg estive of myocardial infarction Crit ical value will be reported when c Amrit is > 52 ng/L and o nly reported for th e first in a seri es. Hemolyzed speci mens with Hemolysis Index >100 (100 mg/dl or moderate hemoly sis) may cause interferences a nd falsely low res ults. Lab Interpretation Abnormal (test code = 27885-5) [facility] [id number] 08:15:11 Test Item Value Reference Range Interpretation Comments CK (test code = 2157-6) 161 U/L 26-192 CK MB (test code = 2.6 ng/mL <=5.3 75652-1) Troponin T (test code = 80 ng/L <=18 A < 19 ng/L Suggest 47320-6) retest at 3 to 6 hours later to rule out myocardial infarction >= 1 9 to <=52 ng/L Possi ble myocardial inju ry. Suggest retest at 3 hours. - a oliva ge of < 20 ng/L, rete st at 6 hours - a jayden nge of >= 20 ng/L, suggestive of myocardial infa rction > 52 ng/L Sugge stive of myocardial infarction Crit ical value will be reported when c Amrit is > 52 ng/L and o nly reported for th e first in a seri es. Hemolyzed speci mens with Hemolysis Index >100 (100 mg/dl or moderate hemoly sis) may cause interferences a nd falsely low res ults. Lab Interpretation Abnormal (test code = 40689-7) [facility] [id number] 08:15:11 Test Item Value Reference Range Interpretation Comments CK (test code = 2157-6) 161 U/L 26-192 CK MB (test code = 2.6 ng/mL <=5.3 78435-9) Troponin T (test code = 80 ng/L <=18 A < 19 ng/L Suggest 64589-5) retest at 3 to 6 hours later to rule out myocardial infarction >= 1 9 to <=52 ng/L Possi ble myocardial inju ry. Suggest retest at 3 hours. - a oliva ge of < 20 ng/L, rete st at 6 hours - a jayden nge of >= 20 ng/L, suggestive of myocardial infa rction > 52 ng/L Sugge stive of myocardial infarction Crit ical value will be reported when c Amrit is > 52 ng/L and o nly reported for th e first in a seri es. Hemolyzed speci mens with Hemolysis Index >100 (100 mg/dl or moderate hemoly sis) may cause interferences a nd falsely low res ults. Lab Interpretation Abnormal (test code = 14976-8) [facility] [id number] 22:32:19 Test Item Value Reference Range Interpretation Comments Sed Rate (test code = 83 See_Comment H [Auto mated message] 2759-) The system [employer] generated this result transmitted ref erence range: 0 - 20 m m/hr. The reference r ashley was not used to interpret this result as normal/abnor mal. Lab Interpretation (test Abnormal code = 63070-4) [facility] [id number] 22:32:19 Test Item Value Reference Range Interpretation Comments Sed Rate (test code = 83 See_Comment H [Auto mated message] 4536-) The system [employer] generated this result transmitted ref erence range: 0 - 20 m m/hr. The reference r ashley was not used to interpret this result as normal/abnor mal. Lab Interpretation (test Abnormal code = 20710-7) [facility] [id number] 22:32:19 Test Item Value Reference Range Interpretation Comments Sed Rate (test code = 83 See_Comment H [Auto mated message] 5677-7) The system [employer] generated this result transmitted ref erence range: 0 - 20 m m/hr. The reference r ashley was not used to interpret this result as normal/abnor mal. Lab Interpretation (test Abnormal code = 94382-8) [facility] [id number] 22:32:19 Test Item Value Reference Range Interpretation Comments Sed Rate (test code = 83 See_Comment H [Auto mated message] 4536-) The system [employer] generated this result transmitted ref erence range: 0 - 20 m m/hr. The reference r ashley was not used to interpret this result as normal/abnor mal. Lab Interpretation (test Abnormal code = 26550-7) [facility] [id number] 22:32:19 Test Item Value Reference Range Interpretation Comments Sed Rate (test code = 83 See_Comment H [Auto mated message] 7-) The system [employer] generated this result transmitted ref erence range: 0 - 20 m m/hr. The reference r ashley was not used to interpret this result as normal/abnor mal. Lab Interpretation (test Abnormal code = 92054-5) [facility] [id number] 22:32:19 Test Item Value Reference Range Interpretation Comments Sed Rate (test code = 83 See_Comment H [Auto mated message] 4536-) The system [employer] generated this result transmitted ref erence range: 0 - 20 m m/hr. The reference r ashley was not used to interpret this result as normal/abnor mal. Lab Interpretation (test Abnormal code = 04725-0) [facility] [id number] 22:32:19 Test Item Value Reference Range Interpretation Comments Sed Rate (test code = 83 See_Comment H [Auto mated message] 4536-) The system [employer] generated this result transmitted ref erence range: 0 - 20 m m/hr. The reference r ashley was not used to interpret this result as normal/abnor mal. Lab Interpretation (test Abnormal code = 55277-4) [facility] [id number] 22:32:19 Test Item Value Reference Range Interpretation Comments Sed Rate (test code = 83 See_Comment H [Auto mated message] 4536-) The system [employer] generated this result transmitted ref erence range: 0 - 20 m m/hr. The reference r ashley was not used to interpret this result as normal/abnor mal. Lab Interpretation (test Abnormal code = 74370-6) [facility] [id number] 22:32:19 Test Item Value Reference Range Interpretation Comments Sed Rate (test code = 83 See_Comment H [Auto mated message] 3047-7) The system [employer] generated this result transmitted ref erence range: 0 - 20 m m/hr. The reference r ashley was not used to interpret this result as normal/abnor mal. Lab Interpretation (test Abnormal code = 55655-5) [facility] 21:13:34 Test Item Value Reference Range Interpretation Comments Procalcitonin (test 30.39 ng/mL <=0.08 H Procalci tonin > 2.00 code = 64598-4) ng/mL: Proca lcitonin levels above 2. 00 ng/mL are highl y suggestive of a high risk for system atic bacterial infec tion/ severe sepsis a nd/or septic shock. Procalcitonin < 0.50 ng/mL: Procalci tonin levels below 0. 50 ng/mL are at lo w risk for progre ssion to severe sepsi s and/ or septic shock. Procalci tonin (ProCT) between 0.15 and 2.0 ng/mL d o not exclude infecti on, because localiz ed infections (wit hout systemic signs) may be associated w ith such low levels . Results greater than 400 ng/mL may n ot be reliable due to the matrix effect w ith extended diluti on as it exceeds the fire extinguisher repairer inspector's recommended sweeney it. Caution should be exercised when interpreting limon ch values and done in conjunction wit h clinical contex t. Lab Interpretation Abnormal (test code = 29240-6) [facility] 21:13:34 Test Item Value Reference Range Interpretation Comments Procalcitonin (test 30.39 ng/mL <=0.08 H Procalci tonin > 2.00 code = 20033-6) ng/mL: Proca lcitonin levels above 2. 00 ng/mL are highl y suggestive of a high risk for system atic bacterial infec tion/ severe sepsis a nd/or septic shock. Procalcitonin < 0.50 ng/mL: Procalci tonin levels below 0. 50 ng/mL are at lo w risk for progre ssion to severe sepsi s and/ or septic shock. Procalci tonin (ProCT) between 0.15 and 2.0 ng/mL d o not exclude infecti on, because localiz ed infections (wit hout systemic signs) may be associated w ith such low levels . Results greater than 400 ng/mL may n ot be reliable due to the matrix effect w ith extended diluti on as it exceeds the fire extinguisher repairer inspector's recommended sweeney it. Caution should be exercised when interpreting limon ch values and done in conjunction [facility] clinical contex t. Lab Interpretation Abnormal (test code = 87654-4) [facility] 21:13:34 Test Item Value Reference Range Interpretation Comments Procalcitonin (test 30.39 ng/mL <=0.08 H Procalci tonin > 2.00 code = 05690-9) ng/mL: Proca lcitonin levels above 2. 00 ng/mL are highl y suggestive of a high risk for system atic bacterial infec tion/ severe sepsis a nd/or septic shock. Procalcitonin < 0.50 ng/mL: Procalci tonin levels below 0. 50 ng/mL are at lo w risk for progre ssion to severe sepsi s and/ or septic shock. Procalci tonin (ProCT) between 0.15 and 2.0 ng/mL d o not exclude infecti on, because localiz ed infections (wit hout systemic signs) may be associated w ith such low levels . Results greater than 400 ng/mL may n ot be reliable due to the matrix effect w ith extended diluti on as it exceeds the fire extinguisher repairer inspector's recommended sweeney it. Caution should be exercised when interpreting limon ch values and done in conjunction wit clinical contex t. Lab Interpretation Abnormal (test code = 93149-2) [facility] 21:13:34 Test Item Value Reference Range Interpretation Comments Procalcitonin (test 30.39 ng/mL <=0.08 H Procalci tonin > 2.00 code = 20411-1) ng/mL: Proca lcitonin levels above 2. 00 ng/mL are highl y suggestive of a high risk for system atic bacterial infec tion/ severe sepsis a nd/or septic shock. Procalcitonin < 0.50 ng/mL: Procalci tonin levels below 0. 50 ng/mL are at lo w risk for progre ssion to severe sepsi s and/ or septic shock. Procalci tonin (ProCT) between 0.15 and 2.0 ng/mL d o not exclude infecti on, because localiz ed infections (wit hout systemic signs) may be associated w ith such low levels . Results greater than 400 ng/mL may n ot be reliable due to the matrix effect w ith extended diluti on as it exceeds the fire extinguisher repairer inspector's recommended sweeney it. Caution should be exercised when interpreting limon ch values and done in conjunction wit clinical contex t. Lab Interpretation Abnormal (test code = 57708-0) [facility] 21:13:34 Test Item Value Reference Range Interpretation Comments Procalcitonin (test 30.39 ng/mL <=0.08 H Procalci tonin > 2.00 code = 68991-3) ng/mL: Proca lcitonin levels above 2. 00 ng/mL are highl y suggestive of a high risk for system atic bacterial infec tion/ severe sepsis a nd/or septic shock. Procalcitonin < 0.50 ng/mL: Procalci tonin levels below 0. 50 ng/mL are at lo w risk for progre ssion to severe sepsi s and/ or septic shock. Procalci tonin (ProCT) between 0.15 and 2.0 ng/mL d o not exclude infecti on, because localiz ed infections (wit hout systemic signs) may be associated w ith such low levels . Results greater than 400 ng/mL may n ot be reliable due to the matrix effect w ith extended diluti on as it exceeds the fire extinguisher repairer inspector's recommended sweeney it. Caution should be exercised when interpreting limon ch values and done in conjunction wit clinical contex t. Lab Interpretation Abnormal (test code = 81856-4) [facility] 21:13:34 Test Item Value Reference Range Interpretation Comments Procalcitonin (test 30.39 ng/mL <=0.08 H Procalci tonin > 2.00 code = 07563-3) ng/mL: Proca lcitonin levels above 2. 00 ng/mL are highl y suggestive of a high risk for system atic bacterial infec tion/ severe sepsis a nd/or septic shock. Procalcitonin < 0.50 ng/mL: Procalci tonin levels below 0. 50 ng/mL are at lo w risk for progre ssion to severe sepsi s and/ or septic shock. Procalci tonin (ProCT) between 0.15 and 2.0 ng/mL d o not exclude infecti on, because localiz ed infections (wit hout systemic signs) may be associated w ith such low levels . Results greater than 400 ng/mL may n ot be reliable due to the matrix effect w ith extended diluti on as it exceeds the fire extinguisher repairer inspector's recommended sweeney it. Caution should be exercised when interpreting limon ch values and done in conjunction [facility] clinical contex t. Lab Interpretation Abnormal (test code = 01172-8) [facility] 21:13:34 Test Item Value Reference Range Interpretation Comments Procalcitonin (test 30.39 ng/mL <=0.08 H Procalci tonin > 2.00 code = 02776-6) ng/mL: Proca lcitonin levels above 2. 00 ng/mL are highl y suggestive of a high risk for system atic bacterial infec tion/ severe sepsis a nd/or septic shock. Procalcitonin < 0.50 ng/mL: Procalci tonin levels below 0. 50 ng/mL are at lo w risk for progre ssion to severe sepsi s and/ or septic shock. Procalci tonin (ProCT) between 0.15 and 2.0 ng/mL d o not exclude infecti on, because localiz ed infections (wit hout systemic signs) may be associated w ith such low levels . Results greater than 400 ng/mL may n ot be reliable due to the matrix effect w ith extended diluti on as it exceeds the fire extinguisher repairer inspector's recommended sweeney it. Caution should be exercised when interpreting limon ch values and done in conjunction wit clinical contex t. Lab Interpretation Abnormal (test code = 06703-7) [facility] 21:13:34 Test Item Value Reference Range Interpretation Comments Procalcitonin (test 30.39 ng/mL <=0.08 H Procalci tonin > 2.00 code = 49016-7) ng/mL: Proca lcitonin levels above 2. 00 ng/mL are highl y suggestive of a high risk for system atic bacterial infec tion/ severe sepsis a nd/or septic shock. Procalcitonin < 0.50 ng/mL: Procalci tonin levels below 0. 50 ng/mL are at lo w risk for progre ssion to severe sepsi s and/ or septic shock. Procalci tonin (ProCT) between 0.15 and 2.0 ng/mL d o not exclude infecti on, because localiz ed infections (wit hout systemic signs) may be associated w ith such low levels . Results greater than 400 ng/mL may n ot be reliable due to the matrix effect w ith extended diluti on as it exceeds the fire extinguisher repairer inspector's recommended sweeney it. Caution should be exercised when interpreting limon ch values and done in conjunction wit [employer] [facility] [employer] [facility]. Lab Interpretation Abnormal (test code = 37609-6) [facility] 21:13:34 Test Item Value Reference Range Interpretation Comments Procalcitonin (test 30.39 ng/mL <=0.08 H Procalci tonin > 2.00 code = 74988-8) ng/mL: Proca lcitonin levels above 2. 00 ng/mL are highl y suggestive of a high risk for system atic bacterial infec tion/ severe sepsis a nd/or septic shock. Procalcitonin < 0.50 ng/mL: Procalci tonin levels below 0. 50 ng/mL are at lo w risk for progre ssion to severe sepsi s and/ or septic shock. Procalci tonin (ProCT) between 0.15 and 2.0 ng/mL d o not exclude infecti on, because localiz ed infections (wit hout systemic signs) may be associated w ith such low levels . Results greater than 400 ng/mL may n ot be reliable due to the matrix effect w ith extended diluti on as it exceeds the fire extinguisher repairer inspector's recommended sweeney it. Caution should be exercised when interpreting limon ch values and done in conjunction [facility] [employer] [facility]. Lab Interpretation Abnormal (test code = 25398-2) [place] [id number] 20:44:04 Test Item Value Reference Range Interpretation Comments CRP (test code = 239.41 mg/[place] [address]-8) CRP assay are a s follows: Reference range s when used to assess cardi ac risk: <1.00 mg/L Low cardiovascular risk 1.00-3.00 mg/L Average cardiovascular risk >3.00 mg/L High cardi ovascular risk.Reference ranges when used to assess inflammatory re sponses: Less than or eq ual to 10.00 mg/L. [place] [id number] 20:44:04 Test Item Value Reference Range Interpretation Comments CRP (test code = 239.41 mg/[place] [address]-1) CRP assay are a s follows: Reference range s when used to assess cardi ac risk: <1.00 mg/L Low cardiovascular risk 1.00-3.00 mg/L Average cardiovascular risk >3.00 mg/L High cardi ovascular risk.Reference ranges when used to assess inflammatory re sponses: Less than or eq ual to 10.00 mg/L. [place] [id number] 20:44:04 Test Item Value Reference Range Interpretation Comments CRP (test code = 239.41 mg/[place] [address]-5) CRP assay are a s follows: Reference range s when used to assess cardi ac risk: <1.00 mg/L Low cardiovascular risk 1.00-3.00 mg/L Average cardiovascular risk >3.00 mg/L High cardi ovascular risk.Reference ranges when used to assess inflammatory re sponses: Less than or eq ual to 10.00 mg/L. [place] [id number] 20:44:04 Test Item Value Reference Range Interpretation Comments CRP (test code = 239.41 mg/[place] [address]-2) CRP assay are a s follows: Reference range s when used to assess cardi ac risk: <1.00 mg/L Low cardiovascular risk 1.00-3.00 mg/L Average cardiovascular risk >3.00 mg/L High cardi ovascular risk.Reference ranges when used to assess inflammatory re sponses: Less than or eq ual to 10.00 mg/L. [facility] Test Item Value Reference Range Interpretation Comments CRP (test code = 239.41 mg/[place] [address]-8) CRP assay are a s follows: Reference range s when used to assess cardi ac risk: <1.00 mg/L Low cardiovascular risk 1.00-3.00 mg/L Average cardiovascular risk >3.00 mg/L High cardi ovascular risk.Reference ranges when used to assess inflammatory re sponses: Less than or eq ual to 10.00 mg/L. [place] [id number] 20:44:04 Test Item Value Reference Range Interpretation Comments CRP (test code = 239.41 mg/[place] [address]-4) CRP assay are a s follows: Reference range s when used to assess cardi ac risk: <1.00 mg/L Low cardiovascular risk 1.00-3.00 mg/L Average cardiovascular risk >3.00 mg/L High cardi ovascular risk.Reference ranges when used to assess inflammatory re sponses: Less than or eq ual to 10.00 mg/L. [facility] Test Item Value Reference Range Interpretation Comments CRP (test code = 239.41 mg/[place] [address]-1) CRP assay are a s follows: Reference range s when used to assess cardi ac risk: <1.00 mg/L Low cardiovascular risk 1.00-3.00 mg/L Average cardiovascular risk >3.00 mg/L High cardi ovascular risk.Reference ranges when used to assess inflammatory re sponses: Less than or eq ual to 10.00 mg/L. [facility] Test Item Value Reference Range Interpretation Comments CRP (test code = 239.41 mg/[place] [address]-7) CRP assay are a s follows: Reference range s when used to assess cardi ac risk: <1.00 mg/L Low cardiovascular risk 1.00-3.00 mg/L Average cardiovascular risk >3.00 mg/L High cardi ovascular risk.Reference ranges when used to assess inflammatory re sponses: Less than or eq ual to 10.00 mg/L. [facility]:44:04 Test Item Value Reference Range Interpretation Comments CRP (test code = 239.41 mg/[place] [address]-0) CRP assay are a s follows: Reference range s when used to assess cardi ac risk: <1.00 mg/L Low cardiovascular risk 1.00-3.00 mg/L Average cardiovascular risk >3.00 mg/L High cardi ovascular risk.Reference ranges when used to assess inflammatory re sponses: Less than or eq ual to 10.00 mg/L. [facility] 18:24:20 Test Item Value Reference Range Interpretation Comments NT ProBNP (test code = 52384-0) 3186 pg/mL <=125 H Lab Interpretation (test code = Abnormal 78730-6) [facility] 18:24:20 Test Item Value Reference Range Interpretation Comments NT ProBNP (test code = 70030-7) 3186 pg/mL <=125 H Lab Interpretation (test code = Abnormal 73532-5) [facility] 18:24:20 Test Item Value Reference Range Interpretation Comments NT ProBNP (test code = 47215-1) 3186 pg/mL <=125 H Lab Interpretation (test code = Abnormal 42837-2) [facility] 18:24:20 Test Item Value Reference Range Interpretation Comments NT ProBNP (test code = 56591-1) 3186 pg/mL <=125 H Lab Interpretation (test code = Abnormal 53124-0) [facility]26 18:24:20 Test Item Value Reference Range Interpretation Comments NT ProBNP (test code = 57408-4) 3186 pg/mL <=125 H Lab Interpretation (test code = Abnormal 50492-7) [facility]26 18:24:20 Test Item Value Reference Range Interpretation Comments NT ProBNP (test code = 10376-4) 3186 pg/mL <=125 H Lab Interpretation (test code = Abnormal 02073-5) [facility]22-[facility]-26 18:24:20 Test Item Value Reference Range Interpretation Comments NT ProBNP (test code = 04854-9) 3186 pg/mL <=125 H Lab Interpretation (test code = Abnormal 46523-4) [facility] 17:39:44 Test Item Value Reference Range Interpretation Comments Fibrinogen (test code = 3255-7) 697 mg/dL 214-503 H Lab Interpretation (test code = Abnormal 02292-6) [facility] 17:[facility] Test Item Value Reference Range Interpretation Comments Fibrinogen (test code = 3255-7) 697 mg/dL 214-503 H Lab Interpretation (test code = Abnormal 79253-9) [facility] 17:39:44 Test Item Value Reference Range Interpretation Comments Fibrinogen (test code = 3255-7) 697 mg/dL 214-503 H Lab Interpretation (test code = Abnormal 01333-9) [facility] 17:39:44 Test Item Value Reference Range Interpretation Comments Fibrinogen (test code = 3255-7) 697 mg/dL 214-503 H Lab Interpretation (test code = Abnormal 00545-4) [facility] 17:39:44 Test Item Value Reference Range Interpretation Comments Fibrinogen (test code = 3255-7) 697 mg/dL 214-503 H Lab Interpretation (test code = Abnormal 46154-0) [facility] 17:39:44 Test Item Value Reference Range Interpretation Comments Fibrinogen (test code = 3255-7) 697 mg/dL 214-503 H Lab Interpretation (test code = Abnormal 46217-7) [facility] 17:39:44 Test Item Value Reference Range Interpretation Comments Fibrinogen (test code = 3255-7) 697 mg/dL 214-503 H Lab Interpretation (test code = Abnormal 43757-9) [facility] 17:39:44 Test Item Value Reference Range Interpretation Comments Fibrinogen (test code = 3255-7) 697 mg/dL 214-503 H Lab Interpretation (test code = Abnormal 26660-3) [facility] 17:39:44 Test Item Value Reference Range Interpretation Comments Fibrinogen (test code = 3255-7) 697 mg/dL 214-503 H Lab Interpretation (test code = Abnormal 79496-5) [facility] Chem [id number] 16:07:54 Test Item Value Reference Range Interpretation Comments POC NA (test code = 145 See_Comment [Automa eugene message] 3527-0) The system [employer] generated this result transmitted ref erence range: 138 - 14 6 mEq/L. The refe rence range was not u sed to interpret this result as normal/abnor mal. POC K (test code = 3.1 See_Comment L Method de scription: 6298-4) The i-STAT is a n analyzer used f or in vitro quantific ation of various anal ytes in whole blood. The device uses a s jose a disposable cart ridge which contains microfabricated sensors, a calibration dixie ution, fluidics system , and a waste chamber . Each test cartridge contains chemic ally sensitive biose nsors on a Rapt ip that are config ured to perform spec ific tests. The microfabricated sensors measure analyte concent ration by an electroch emical assay. [Automat ed message] The sy stem which generated this result transmit eugene reference range : 3.5 - 4.9 mEq/L. Th e reference range was not used to int erpret this result as normal/abnormal . POC CL (test code = 103 See_Comment [Automa eugene message] 4-3) The system [employer] generated this result transmitted ref erence range: 98 - 109 mEq/L. The refe rence range was not u sed to interpret this result as normal/abnor mal. POC ATCO2 (test code 27 See_Comment [Autom ated message] = 2025-04) The system [employer] generated this result transmitted ref erence range: 23 - 27 mEq/L. The reference r ashley was not used to interpret this result as normal/abnor mal. POC Anion Gap (test 19 mmol/L -20 code = 59412) POC BUN (test code = 7 mg/dL 8-26 L 6299-2) POC Crea (test code 0.4 mg/dL 0.6-1.3 L Medicati ons, = 27425-9) especially hydroxyurea or supplements, limon ch as ascorbate, can interfere with test results causing a falsely and significantly h igher result than exp ected. If a problem is suspected with a patient's resul t, a sample should b e sent to the laborato ry for confirmatory te sting. Method descript ion: The i-STAT is a n analyzer used f or in vitro quantific ation of various anal ytes in whole blood. The device uses a s jose a disposable cart ridge which contains microfabricated sensors, a calibration dixie ution, fluidics system , and a waste chamber . Each test cartridge contains chemic ally sensitive biose nsors on a Rapt ip that are config ured to perform spec ific tests. The microfabricated sensors measure analyte concent ration by an electroch emical assay. POC EGFR (test code 141 See_Comment The eGFR cr is = 48730) calculated with the 2020 CKD-EPI creatinine equa tion using creatinin e, patient's age, and sex for adults 18 years of age an d older. Other fa ctors, especially musc le mass, may affec t accuracy and ne ed to be considered.Acco rding to the Kidney Disease: Improv ing Global Outcomes (KDIGO) CKD Wor k Group 2012 Clin ical Practice [place] ine, chronic kidney disease (CKD) i s defined as the abnormalities o f kidney structur e or function, prese nt for more than 3 mon ths, with implicatio ns for health. CKD michele uld be classified by c ause, GFR category, a nd albuminuria cat egory. KDIGO guideline s provide the fol lowing GFR categoriesS tage Description GFR mL/min/1.73 m2G 1* Normal or high >= 90G2* Mildly decreased 60-89 G3a Mildly to moder ately decreased 45-59 G3b Moderately to severely decrea sed 30-44G4 Severel y decreased 15-29 G5 Kidney failure <15*In the absence of evidence of kid ajith damage, neither G1 nor G2 fulfill criteria for CK D. [Automated mess age] The system [employer] generated this result transmitted ref erence range: >=60 mL/min/1.73 sq. m. The reference r ashley was not used to interpret this result as normal/abnor mal. POC Glucose (test 224 mg/dL 70-99 H Medication s, code = 2339-0) especially hydroxyurea, ca n interfere with test results causing a falsely and significantly h igher result than exp ected. If a problem is suspected with a patient's resul t, a sample should b e sent to the laborato ry for confirmatory te sting. POC Ion Ca (test 0.97 mmol/L 1.12-1.32 L code = 1993-) POC Hct (test code = 38.0 % 38.0-51.0 6680) POC Hgb (test code = 12.9 See_Comment Hematoc rit values 6682) from the iSTAT are determined conductometrica lly, which may be af fected by WBC count, l evels of total protei n, lipids, or sodi um. The hemoglobin result is calculated b ased on the correspo nding measured hemato crit and assumes a n ormal MCHC. If there is a discrepancy bet ween the results fro m iSTAT and conventional laboratory meth od, the result from conventional me thod should be consi dered the accurate standard. [Auto mated message] The sy stem which generated this result transmit eugene reference range : 12.0 - 17.0 gm/dL. T he reference range was not used to int erpret this result as normal/abnormal . POC Sample Type Arterial (test code = 6690) POC Clean Dev (test Yes code = 6672) Performing Lab (test MDA Main Main Ca mpus code = 44917) [facility] Cli nical Lab, [address] [facility] [address], [facility] [place] [address]; Water Treatment Plant Repairer: Guerline Olmstead MD; Waived Point of Care Testing - Luz Maria levi MD Lab Interpretation Abnormal (test code = 35774-4) [facility] Chem [id number] 16:07:54 Test Item Value Reference Range Interpretation Comments POC NA (test code = 145 See_Comment [Automa eugene message] 2947-0) The system [employer] generated this result transmitted ref erence range: 138 - 14 6 mEq/L. The refe rence range was not u sed to interpret this result as normal/abnor mal. POC K (test code = 3.1 See_Comment L Method de scription: 6298-4) The i-STAT is a n analyzer used f or in vitro quantific ation of various anal ytes in whole blood. The device uses a s jose a disposable cart ridge which contains microfabricated sensors, a calibration dixie ution, fluidics system , and a waste chamber . Each test cartridge contains chemic ally sensitive biose nsors on a Rapt ip that are config ured to perform spec ific tests. The microfabricated sensors measure analyte concent ration by an electroch emical assay. [Automat ed message] The sy stem which generated this result transmit eugene reference range : 3.5 - 4.9 mEq/L. Th e reference range was not used to int erpret this result as normal/abnormal . POC CL (test code = 103 See_Comment [Automa eugene message] 2068-04) The system [employer] generated this result transmitted ref erence range: 98 - 109 mEq/L. The refe rence range was not u sed to interpret this result as normal/abnor mal. POC ATCO2 (test code 27 See_Comment [Autom ated message] = 2025-04) The system [employer] generated this result transmitted ref erence range: 23 - 27 mEq/L. The reference r ashley was not used to interpret this result as normal/abnor mal. POC Anion Gap (test 19 mmol/L -20 code = 97498) POC BUN (test code = 7 mg/dL 8-26 L 6299-2) POC Crea (test code 0.4 mg/dL 0.6-1.3 L Medicati ons, = 54875-1) especially hydroxyurea or supplements, limon ch as ascorbate, can interfere with test results causing a falsely and significantly h igher result than exp ected. If a problem is suspected with a patient's resul t, a sample should b e sent to the laborato ry for confirmatory te sting. Method descript ion: The i-STAT is a n analyzer used f or in vitro quantific ation of various anal ytes in whole blood. The device uses a s jose a disposable cart ridge which contains microfabricated sensors, a calibration dixie ution, fluidics system , and a waste chamber . Each test cartridge contains chemic ally sensitive biose nsors on a Rapt ip that are config ured to perform spec ific tests. The microfabricated sensors measure analyte concent ration by an electroch emical assay. POC EGFR (test code 141 See_Comment The eGFR cr is = 69381) calculated with the 2020 CKD-EPI creatinine equa tion using creatinin e, patient's age, and sex for adults 18 years of age an d older. Other fa ctors, especially musc le mass, may affec t accuracy and ne ed to be considered.Acco rding to the Kidney Disease: Improv ing Global Outcomes (KDIGO) CKD Wor k Group 2012 Clin ical Practice [place] in[place], chronic kidney disease (CKD) i s defined as the abnormalities o f kidney structur e or function, prese nt for more than 3 mon ths, with implicatio ns for health. CKD michele uld be classified by c leigha, GFR category, a nd albuminuria cat egory. KDIGO guideline s provide the fol lowing GFR categoriesS tage Description GFR mL/min/1.73 m2G 1* Normal or high >= 90G2* Mildly decreased 60-89 G3a Mildly to moder ately decreased 45-59 G3b Moderately to severely decrea sed 30-44G4 Severel y decreased 15-29 G5 Kidney failure <15*In the absence of evidence of kid ajith damage, neither G1 nor G2 fulfill criteria for CK D. [Automated mess age] The system [employer] generated this result transmitted ref erence range: >=60 mL/min/1.73 sq. m. The reference r ashley was not used to interpret this result as normal/abnor mal. POC Glucose (test 224 mg/dL 70-99 H Medication s, code = 2339-0) especially hydroxyurea, ca n interfere with test results causing a falsely and significantly h igher result than exp ected. If a problem is suspected with a patient's resul t, a sample should b e sent to the laborato ry for confirmatory te sting. POC Ion Ca (test 0.97 mmol/L 1.12-1.32 L code = 1993-04) POC Hct (test code = 38.0 % 38.0-51.0 6680) POC Hgb (test code = 12.9 See_Comment Hematoc rit values 6682) from the iSTAT are determined conductometrica lly, which may be af fected by WBC count, l evels of total protei n, lipids, or sodi um. The hemoglobin result is calculated b ased on the correspo nding measured hemato crit and assumes a n ormal MCHC. If there is a discrepancy bet ween the results fro m iSTAT and conventional laboratory meth od, the result from conventional me thod should be consi dered the accurate standard. [Auto mated message] The sy stem which generated this result transmit eugene reference range : 12.0 - 17.0 gm/dL. T he reference range was not used to int erpret this result as normal/abnormal . POC Sample Type Arterial (test code = 6690) POC Clean Dev (test Yes code = 6672) Performing Lab (test MDA Main Main Ca mpus code = 05382) [facility] Cli nical Lab, [address] [facility], [place] [address]; Water Treatment Plant Repairer: Guerline Olmstead MD; Waived Point of Care Testing - Luz Maria levi MD Lab Interpretation Abnormal (test code = 40940-9) [facility] Chem [id number] 16:07:54 Test Item Value Reference Range Interpretation Comments POC NA (test code = 145 See_Comment [Automa eugene message] 2947-0) The system [employer] generated this result transmitted ref erence range: 138 - 14 6 mEq/L. The refe rence range was not u sed to interpret this result as normal/abnor mal. POC K (test code = 3.1 See_Comment L Method de scription: 6298-4) The i-STAT is a n analyzer used f or in vitro quantific ation of various anal ytes in whole blood. The device uses a s jose a disposable cart ridge which contains microfabricated sensors, a calibration dixie [employer], fluidics system , and a waste chamber . Each test cartridge contains chemic ally sensitive biose nsors on a Rapt ip that are config ured to perform spec ific tests. The microfabricated sensors measure analyte concent ration by an electroch emical assay. [Automat ed message] The sy stem which generated this result transmit eugene reference range : 3.5 - 4.9 mEq/L. Th e reference range was not used to int erpret this result as normal/abnormal . POC CL (test code = 103 See_Comment [Automa eugene message] 2068-04) The system [employer] generated this result transmitted ref erence range: 98 - 109 mEq/L. The refe rence range was not u sed to interpret this result as normal/abnor mal. POC ATCO2 (test code 27 See_Comment [Autom ated message] = 2025-04) The system [employer] generated this result transmitted ref erence range: 23 - 27 mEq/L. The reference r ashley was not used to interpret this result as normal/abnor mal. POC Anion Gap (test 19 mmol/L 10-20 code = 46111) POC BUN (test code = 7 mg/dL 8-26 L 6299-2) POC Crea (test code 0.4 mg/dL 0.6-1.3 L Medicati ons, = 29033-0) especially hydroxyurea or supplements, limon ch as ascorbate, can interfere with test results causing a falsely and significantly h igher result than exp ected. If a problem is suspected with a patient's resul t, a sample should b e sent to the laborato ry for confirmatory te sting. Method descript ion: The i-STAT is a n analyzer used f or in vitro quantific ation of various anal ytes in whole blood. The device uses a s jose a disposable cart ridge which contains microfabricated sensors, a calibration dixie [employer], fluidics system , and a waste chamber . Each test cartridge contains chemic ally sensitive biose nsors on a Rapt ip that are config ured to perform spec ific tests. The microfabricated sensors measure analyte concent ration by an electroch emical assay. POC EGFR (test code 141 See_Comment The eGFR cr is = 59069) calculated with the 2020 CKD-EPI creatinine equa tion using creatinin e, patient's age, and sex for adults 18 years of age an d older. Other fa ctors, especially musc le mass, may affec t accuracy and ne ed to be considered.Acco rding to the Kidney Disease: Improv ing Global Outcomes (KDIGO) CKD Wor k Group 2011 Clin ical Practice [place] in[place], chronic kidney disease (CKD) i s defined as the abnormalities o f kidney structur e or function, prese nt for more than 3 mon ths, with implicatio ns for health. CKD michele uld be classified by c ause, GFR category, a nd albuminuria cat egory. KDIGO guideline s provide the fol lowing GFR categoriesS tage Description GFR mL/min/1.73 m2G 1* Normal or high >= 90G2* Mildly decreased 60-89 G3a Mildly to moder ately decreased 45-59 G3b Moderately to severely decrea sed 30-44G4 Severel y decreased 15-29 G5 Kidney failure <15*In the absence of evidence of kid ajith damage, neither G1 nor G2 fulfill criteria for CK D. [Automated mess age] The system [employer] generated this result transmitted ref erence range: >=60 mL/min/1.73 sq. m. The reference r ashley was not used to interpret this result as normal/abnor mal. POC Glucose (test 224 mg/dL 70-99 H Medication s, code = 2339-0) especially hydroxyurea, ca n interfere with test results causing a falsely and significantly h igher result than exp ected. If a problem is suspected with a patient's resul t, a sample should b e sent to the laborato ry for confirmatory te sting. POC Ion Ca (test 0.97 mmol/L 1.12-1.32 L code = 1993-04) POC Hct (test code = 38.0 % 38.0-51.0 5480) POC Hgb (test code = 12.9 See_Comment Hematoc rit values 2382) from the iSTAT are determined conductometrica lly, which may be af fected by WBC count, l evels of total protei n, lipids, or sodi um. The hemoglobin result is calculated b ased on the correspo nding measured hemato crit and assumes a n ormal MCHC. If there is a discrepancy bet ween the results fro m iSTAT and conventional laboratory meth od, the result from conventional me thod should be consi dered the accurate standard. [Auto mated message] The sy stem which generated this result transmit eugene reference range : 12.0 - 17.0 gm/dL. T he reference range was not used to int erpret this result as normal/abnormal . POC Sample Type Arterial (test code = 6690) POC Clean Dev (test Yes code = 6672) Performing Lab (test MDA Main Main Ca mpus code = 87414) [facility] Cli nical Lab, [address] [facility] [address] [place] [place], [place] [address]; Water Treatment Plant Repairer: Guerline Olmstead MD; Waived Point of Care Testing - Luz Maria levi MD Lab Interpretation Abnormal (test code = 23145-4) [facility] Chem [id number] 16:07:54 Test Item Value Reference Range Interpretation Comments POC NA (test code = 145 See_Comment [Automa eugene message] 4127-0) The system [employer] h generated this result transmitted ref erence range: 138 - 14 6 mEq/L. The refe rence range was not u sed to interpret this result as normal/abnor mal. POC K (test code = 3.1 See_Comment L Method de scription: 6298-4) The i-STAT is a n analyzer used f or in vitro quantific ation of various anal ytes in whole blood. The device uses a s jose a disposable cart ridge which contains microfabricated sensors, a calibration [employer], fluidics system , and a waste chamber . Each test cartridge contains chemic ally sensitive biose nsors on a Rapt ip that are config ured to perform spec ific tests. The microfabricated sensors measure analyte concent ration by an electroch emical assay. [Automat ed message] The sy stem which generated this result transmit eugene reference range : 3.5 - 4.9 mEq/L. Th e reference range was not used to int erpret this result as normal/abnormal . POC CL (test code = 103 See_Comment [Automa eugene message] 2068-04) The system [employer] generated this result transmitted ref erence range: 98 - 109 mEq/L. The refe rence range was not u sed to interpret this result as normal/abnor mal. POC ATCO2 (test code 27 See_Comment [Autom ated message] = 2025-04) The system [employer] generated this result transmitted ref erence range: 23 - 27 mEq/L. The reference r ashley was not used to interpret this result as normal/abnor mal. POC Anion Gap (test 19 mmol/L 10-20 code = 78393) POC BUN (test code = 7 mg/dL 8-26 L 6299-2) POC Crea (test code 0.4 mg/dL 0.6-1.3 L Medicati ons, = 48717-6) especially hydroxyurea or supplements, limon ch as ascorbate, can interfere with test results causing a falsely and significantly h igher result than exp ected. If a problem is suspected with a patient's resul t, a sample should b e sent to the laborato for confirmatory te sting. Method descript ion: The i-STAT is a n analyzer used f or in vitro quantific ation of various anal ytes in whole blood. The device uses a s jose a disposable cart ridge which contains microfabricated sensors, a calibration [employer], fluidics system , and a waste chamber . Each test cartridge contains chemic ally sensitive biose nsors on a Rapt ip that are config ured to perform spec ific tests. The microfabricated sensors measure analyte concent ration by an electroch emical assay. POC EGFR (test code 141 See_Comment The eGFR cr is = 70087) calculated with the 2020 CKD-EPI creatinine equa tion using creatinin e, patient's age, and sex for adults 18 years of age an d older. Other fa ctors, especially musc le mass, may affec t accuracy and ne ed to be considered.Acco rding to the Kidney Disease: Improv ing Global Outcomes (KDIGO) CKD Wor k Group 2011 Clin ical Practice [place] ine, chronic kidney disease (CKD) i s defined as the abnormalities o f kidney structur e or function, prese nt for more than 3 mon ths, with implicatio ns for health. CKD michele uld be classified by c ause, GFR category, a nd albuminuria cat egory. KDIGO guideline s provide the fol lowing GFR categoriesS tage Description GFR mL/min/1.73 m2G 1* Normal or high >= 90G2* Mildly decreased 60-89 G3a Mildly to moder ately decreased 45-59 G3b Moderately to severely decrea sed 30-44G4 Severel y decreased 15-29 G5 Kidney failure <15*In the absence of evidence of kid ajith damage, neither G1 nor G2 fulfill criteria for CK D. [Automated mess age] The system [employer] generated this result transmitted ref erence range: >=60 mL/min/1.73 sq. m. The reference r ashley was not used to interpret this result as normal/abnor mal. POC Glucose (test 224 mg/dL 70-99 H Medication s, code = 2339-0) especially hydroxyurea, ca n interfere with test results causing a falsely and significantly h igher result than exp ected. If a problem is suspected with a patient's resul t, a sample should b e sent to the laborato for confirmatory te sting. POC Ion Ca (test 0.97 mmol/L 1.12-1.32 L code = 1993-04) POC Hct (test code = 38.0 % 38.0-51.0 6680) POC Hgb (test code = 12.9 See_Comment Hematoc rit values 6682) from the iSTAT are determined conductometrica lly, which may be af fected by WBC count, l evels of total protei n, lipids, or sodi um. The hemoglobin result is calculated b ased on the correspo nding measured hemato crit and assumes a n ormal MCHC. If there is a discrepancy bet ween the results fro m iSTAT and conventional laboratory meth od, the result from conventional me thod should be consi dered the accurate standard. [Auto mated message] The sy stem which generated this result transmit eugene reference range : 12.0 - 17.0 gm/dL. T he reference range was not used to int erpret this result as normal/abnormal . POC Sample Type Arterial (test code = 6690) POC Clean Dev (test Yes code = 6672) Performing Lab (test MDA Main Main Ca mpus code = 93725) [facility] Cli nical Lab, [address], [place] [address]; Water Treatment Plant Repairer: Guerline Olmstead MD; Waived Point of Care Testing - Luz Maria levi MD Lab Interpretation Abnormal (test code = 12242-2) [facility] Chem [id number] 16:07:54 Test Item Value Reference Range Interpretation Comments POC NA (test code = 145 See_Comment [Automa eugene message] 2947-0) The system [employer] generated this result transmitted ref erence range: 138 - 14 6 mEq/L. The refe rence range was not u sed to interpret this result as normal/abnor mal. POC K (test code = 3.1 See_Comment L Method de scription: 6298-4) The i-STAT is a n analyzer used f or in vitro quantific ation of various anal ytes in whole blood. The device uses a s jose a disposable cart ridge which contains microfabricated sensors, a calibration dixie ution, fluidics system , and a waste chamber . Each test cartridge contains chemic ally sensitive biose nsors on a Rapt ip that are config ured to perform spec ific tests. The microfabricated sensors measure analyte concent ration by an electroch emical assay. [Automat ed message] The sy stem which generated this result transmit eugene reference range : 3.5 - 4.9 mEq/L. Th e reference range was not used to int erpret this result as normal/abnormal . POC CL (test code = 103 See_Comment [Automa eugene message] 2068-04) The system [employer] generated this result transmitted ref erence range: 98 - 109 mEq/L. The refe rence range was not u sed to interpret this result as normal/abnor mal. POC ATCO2 (test code 27 See_Comment [Autom ated message] = 2025-04) The system [employer] generated this result transmitted ref erence range: 23 - 27 mEq/L. The reference r ashley was not used to interpret this result as normal/abnor mal. POC Anion Gap (test 19 mmol/L 10-20 code = 42862) POC BUN (test code = 7 mg/dL 8-26 L 6299-2) POC Crea (test code 0.4 mg/dL 0.6-1.3 L Medicati ons, = 48062-4) especially hydroxyurea or supplements, limon ch as ascorbate, can interfere with test results causing a falsely and significantly h igher result than exp ected. If a problem is suspected with a patient's resul t, a sample should b e sent to the laborato ry for confirmatory te sting. Method descript ion: The i-STAT is a n analyzer used f or in vitro quantific ation of various anal ytes in whole blood. The device uses a s jose a disposable cart ridge which contains microfabricated sensors, a calibration dixie ution, fluidics system , and a waste chamber . Each test cartridge contains chemic ally sensitive biose nsors on a Rapt ip that are config ured to perform spec ific tests. The microfabricated sensors measure analyte concent ration by an electroch emical assay. POC EGFR (test code 141 See_Comment The eGFR cr is = 89331) calculated with the 2020 CKD-EPI creatinine equa tion using creatinin e, patient's age, and sex for adults 18 years of age an d older. Other fa ctors, especially musc le mass, may affec t accuracy and ne ed to be considered.Acco rding to the Kidney Disease: Improv ing Global Outcomes (KDIGO) CKD Wor k Group 2012 Clin ical Practice [place] in[place], chronic kidney disease (CKD) i s defined as the abnormalities o f kidney structur e or function, prese nt for more than 3 mon ths, with implicatio ns for health. CKD michele uld be classified by sanket ahuja, GFR category, a nd albuminuria cat egory. KDIGO guideline s provide the fol lowing GFR categoriesS tage Description GFR mL/min/1.73 m2G 1* Normal or high >= 90G2* Mildly decreased 60-89 G3a Mildly to moder ately decreased 45-59 G3b Moderately to severely decrea sed 30-44G4 Severel y decreased 15-29 G5 Kidney failure <15*In the absence of evidence of kid ajith damage, neither G1 nor G2 fulfill criteria for CK D. [Automated mess age] The system [employer] generated this result transmitted ref erence range: >=60 mL/min/1.73 sq. m. The reference r ashley was not used to interpret this result as normal/abnor mal. POC Glucose (test 224 mg/dL 70-99 H Medication s, code = 2339-0) especially hydroxyurea, ca n interfere with test results causing a falsely and significantly h igher result than exp ected. If a problem is suspected with a patient's resul t, a sample should b e sent to the laborato for confirmatory te sting. POC Ion Ca (test 0.97 mmol/L 1.12-1.32 L code = 1993-04) POC Hct (test code = 38.0 % 38.0-51.0 6680) POC Hgb (test code = 12.9 See_Comment Hematoc rit values 6682) from the iSTAT are determined conductometrica lly, which may be af fected by WBC count, l evels of total protei n, lipids, or sodi um. The hemoglobin result is calculated b ased on the correspo nding measured hemato crit and assumes a n ormal MCHC. If there is a discrepancy bet ween the results fro m iSTAT and conventional laboratory meth od, the result from conventional me thod should be consi dered the accurate standard. [Aut omated message] The sy stem which generated this result transmit eugene reference range : 12.0 - 17.0 gm/dL. T he reference range was not used to int erpret this result as normal/abnormal . POC Sample Type Arterial (test code = 6690) POC Clean Dev (test Yes code = 6672) Performing Lab (test [facility] Main Main Ca mpus code = 49459) [facility] Cli nical Lab, [address], [place] [address]; Water Treatment Plant Repairer: Guerline Olmstead MD; Waived Point of Care Testing - Luz Maria levi MD Lab Interpretation Abnormal (test code = 04613-4) [facility] Chem [id number] 16:07:54 Test Item Value Reference Range Interpretation Comments POC NA (test code = 145 See_Comment [Automa eugene message] 1627-0) The system whic h generated this result transmitted ref erence range: 138 - 14 6 mEq/L. The refe rence range was not u sed to interpret this result as normal/abnor mal. POC K (test code = 3.1 See_Comment L Method de scription: 6298-4) The i-STAT is a n analyzer used f or in vitro quantific ation of various anal ytes in whole blood. The device uses a s jose a disposable cart ridge which contains microfabricated sensors, a calibration dixie ution, fluidics system , and a waste chamber . Each test cartridge contains chemic ally sensitive biose nsors on a Rapt ip that are config ured to perform spec ific tests. The microfabricated sensors measure analyte concent ration by an electroch emical assay. [Automat ed message] The sy stem which generated this result transmit eugene reference range : 3.5 - 4.9 mEq/L. Th e reference range was not used to int erpret this result as normal/abnormal . POC CL (test code = 103 See_Comment [Automa eugene message] 2068-04) The system [employer] generated this result transmitted ref erence range: 98 - 109 mEq/L. The refe rence range was not u sed to interpret this result as normal/abnor mal. POC ATCO2 (test code 27 See_Comment [Autom ated message] = 2025-04) The system [employer] generated this result transmitted ref erence range: 23 - 27 mEq/L. The reference r ashley was not used to interpret this result as normal/abnor mal. POC Anion Gap (test 19 mmol/L 10-20 code = 34687) POC BUN (test code = 7 mg/dL 8-26 L 6299-2) POC Crea (test code 0.4 mg/dL 0.6-1.3 L Medicati ons, = 13638-7) especially hydroxyurea or supplements, limon ch as ascorbate, can interfere with test results causing a falsely and significantly h igher result than exp ected. If a problem is suspected with a patient's resul t, a sample should b e sent to the laborato for confirmatory te sting. Method descript ion: The i-STAT is a n analyzer used f or in vitro quantific ation of various anal ytes in whole blood. The device uses a s jose a disposable cart ridge which contains microfabricated sensors, a calibration dixie ution, fluidics system , and a waste chamber . Each test cartridge contains chemic ally sensitive biose nsors on a silicon [employer] ip that are config ured to perform spec ific tests. The microfabricated sensors measure analyte concent ration by an electroch emical assay. POC EGFR (test code 141 See_Comment The eGFR cr is = 98694) calculated with the 2020 CKD-EPI creatinine equa tion using creatinin e, patient's age, and sex for adults 18 years of age an d older. Other fa ctors, especially musc le mass, may affec t accuracy and ne ed to be considered.Acco rding to the Kidney Disease: Improv ing Global Outcomes (KDIGO) CKD Wor k Group 2011 Clin ical Practice [place], chronic kidney disease (CKD) i s defined as the abnormalities o f kidney structur e or function, prese nt for more than 3 mon ths, with implicatio ns for health. CKD michele uld be classified by c nikkie, GFR category, a nd albuminuria cat egory. KDIGO guideline s provide the fol lowing GFR categoriesS tage Description GFR mL/min/1.73 m2G 1* Normal or high >= 90G2* Mildly decreased 60-89 G3a Mildly to moder ately decreased 45-59 G3b Moderately to severely decrea sed 30-44G4 Severel y decreased 15-29 G5 Kidney failure <15*In the absence of evidence of kid ajith damage, neither G1 nor G2 fulfill criteria for CK D. [Automated mess age] The system [employer] generated this result transmitted ref erence range: >=60 mL/min/1.73 sq. m. The reference r ashley was not used to interpret this result as normal/abnor mal. POC Glucose (test 224 mg/dL 70-99 H Medication s, code = 2339-0) especially hydroxyurea, ca n interfere with test results causing a falsely and significantly h igher result than exp ected. If a problem is suspected with a patient's resul t, a sample should b e sent to the laborato ry for confirmatory te sting. POC Ion Ca (test 0.97 mmol/L 1.12-1.32 L code = 1993-04) POC Hct (test code = 38.0 % 38.0-51.0 6680) POC Hgb (test code = 12.9 See_Comment Hematoc rit values 6682) from the iSTAT are determined conductometrica lly, which may be af fected by WBC count, l evels of total protei n, lipids, or sodi um. The hemoglobin result is calculated b ased on the correspo nding measured hemato crit and assumes a n ormal MCHC. If there is a discrepancy bet ween the results fro m iSTAT and conventional laboratory meth od, the result from conventional me thod should be consi dered the accurate standard. [Auto mated message] The sy stem which generated this result transmit eugene reference range : 12.0 - 17.0 gm/dL. T he reference range was not used to int erpret this result as normal/abnormal . POC Sample Type Arterial (test code = 6690) POC Clean Dev (test Yes code = 6672) Performing Lab (test [facility] Main Main Ca mpus code = 39500) [facility] Cli nical Lab, [address], [place] [address]; Water Treatment Plant Repairer: Guerline Olmstead MD; Waived Point of Care Testing - Luz Maria levi MD Lab Interpretation Abnormal (test code = 72687-0) [facility] [id number] 16:07:54 Test Item Value Reference Range Interpretation Comments POC NA (test code = 145 See_Comment [Automa eugene message] 2947-0) The system [employer] generated this result transmitted ref erence range: 138 - 14 6 mEq/L. The refe rence range was not u sed to interpret this result as normal/abnor mal. POC K (test code = 3.1 See_Comment L Method de scription: 6298-4) The i-STAT is a n analyzer used f or in vitro quantific ation of various anal ytes in whole blood. The device uses a s jose a disposable cart ridge which contains microfabricated sensors, a calibration dixie ution, fluidics system , and a waste chamber . Each test cartridge contains chemic ally sensitive biose nsors on a [employer] ip that are config ured to perform spec ific tests. The microfabricated sensors measure analyte concent ration by an electroch emical assay. [Automat ed message] The sy stem which generated this result transmit eugene reference range : 3.5 - 4.9 mEq/L. Th e reference range was not used to int erpret this result as normal/abnormal . POC CL (test code = 103 See_Comment [Automa eugene message] 2068-04) The system [employer] generated this result transmitted ref erence range: 98 - 109 mEq/L. The refe rence range was not u sed to interpret this result as normal/abnor mal. POC ATCO2 (test code 27 See_Comment [Autom ated message] = 2025-04) The system [employer] generated this result transmitted ref erence range: 23 - 27 mEq/L. The reference r ashley was not used to interpret this result as normal/abnor mal. POC Anion Gap (test 19 mmol/L 10-20 code = 73478) POC BUN (test code = 7 mg/dL 8-26 L 6299-2) POC Crea (test code 0.4 mg/dL 0.6-1.3 L Medicati ons, = 21046-9) especially hydroxyurea or supplements, limon ch as ascorbate, can interfere with test results causing a falsely and significantly h igher result than exp ected. If a problem is suspected with a patient's resul t, a sample should b e sent to the laborato ry for confirmatory te sting. Method descript ion: The i-STAT is a n analyzer used f or in vitro quantific ation of various anal ytes in whole blood. The device uses a s jose a disposable cart ridge which contains microfabricated sensors, a calibration dixie ution, fluidics system , and a waste chamber . Each test cartridge contains chemic ally sensitive biose nsors on a [employer] ip that are config ured to perform spec ific tests. The microfabricated sensors measure analyte concent ration by an electroch emical assay. POC EGFR (test code 141 See_Comment The eGFR cr is = 73387) calculated with the 2020 CKD-EPI creatinine equa tion using creatinin e, patient's age, and sex for adults 18 years of age an d older. Other fa ctors, especially musc le mass, may affec t accuracy and ne ed to be considered.Acco rding to the Kidney Disease: Improv ing Global Outcomes (KDIGO) CKD Wor k Group 2012 Clin ical Practice [place], chronic kidney disease (CKD) i s defined as the abnormalities o f kidney structur e or function, prese nt for more than 3 mon ths, with implicatio ns for health. CKD michele uld be classified by sanket ahuja, GFR category, a nd albuminuria cat egory. KDIGO guideline s provide the fol lowing GFR categoriesS tage Description GFR mL/min/1.73 m2G 1* Normal or high >= 90G2* Mildly decreased 60-89 G3a Mildly to moder ately decreased 45-59 G3b Moderately to severely decrea sed 30-44G4 Severel y decreased 15-29 G5 Kidney failure <15*In the absence of evidence of kid ajith damage, neither G1 nor G2 fulfill criteria for CK D. [Automated mess age] The system [employer] generated this result transmitted ref erence range: >=60 mL/min/1.73 sq. m. The reference r ashley was not used to interpret this result as normal/abnor mal. POC Glucose (test 224 mg/dL 70-99 H Medication s, code = 2339-0) especially hydroxyurea, ca n interfere with test results causing a falsely and significantly h igher result than exp ected. If a problem is suspected with a patient's resul t, a sample should b e sent to the laborato for confirmatory te sting. POC Ion Ca (test 0.97 mmol/L 1.12-1.32 L code = 1993-04) POC Hct (test code = 38.0 % 38.0-51.0 6680) POC Hgb (test code = 12.9 See_Comment Hematoc rit values 6682) from the iSTAT are determined conductometrica lly, which may be af fected by WBC count, l evels of total protei n, lipids, or sodi um. The hemoglobin result is calculated b ased on the correspo nding measured hemato crit and assumes a n ormal MCHC. If there is a discrepancy bet ween the results fro m iSTAT and conventional laboratory meth od, the result from conventional me thod should be consi dered the accurate standard. [Auto mated message] The sy stem which generated this result transmit eugene reference range : 12.0 - 17.0 gm/dL. T he reference range was not used to int erpret this result as normal/abnormal . POC Sample Type Arterial (test code = 6690) POC Clean Dev (test Yes code = 6672) Performing Lab (test [facility] Main Main Ca mpus code = 80819) [facility] Cli nical Lab, [address], [place] [address]; Water Treatment Plant Repairer: Guerline Olmstead MD; Waived Point of Care Testing - Luz Maria levi MD Lab Interpretation Abnormal (test code = 11784-5) [facility] Chem [id number] 16:07:54 Test Item Value Reference Range Interpretation Comments POC NA (test code = 145 See_Comment [Automa eugene message] 2946-0) The system [employer] generated this result transmitted ref erence range: 138 - 14 6 mEq/L. The refe rence range was not u sed to interpret this result as normal/abnor mal. POC K (test code = 3.1 See_Comment L Method de scription: 6298-4) The i-STAT is a n analyzer used f or in vitro quantific ation of various anal ytes in whole blood. The device uses a s jose a disposable cart ridge which contains microfabricated sensors, a calibration dixie ution, fluidics system , and a waste chamber . Each test cartridge contains chemic ally sensitive biose nsors on a [employer] ip that are config ured to perform spec ific tests. The microfabricated sensors measure analyte concent ration by an electroch emical assay. [Automat ed message] The sy stem which generated this result transmit eugene reference range : 3.5 - 4.9 mEq/L. Th e reference range was not used to int erpret this result as normal/abnormal . POC CL (test code = 103 See_Comment [Automa eugene message] 2068-04) The system [employer] generated this result transmitted ref erence range: 98 - 109 mEq/L. The refe rence range was not u sed to interpret this result as normal/abnor mal. POC ATCO2 (test code 27 See_Comment [Autom ated message] = 2025-04) The system [employer] generated this result transmitted ref erence range: 23 - 27 mEq/L. The reference r ashley was not used to interpret this result as normal/abnor mal. POC Anion Gap (test 19 mmol/L 10-20 code = 08728) POC BUN (test code = 7 mg/dL 8-26 L 6299-2) POC Crea (test code 0.4 mg/dL 0.6-1.3 L Medicati ons, = 74846-4) especially hydroxyurea or supplements, limon ch as ascorbate, can interfere with test results causing a falsely and significantly h igher result than exp ected. If a problem is suspected with a patient's resul t, a sample should b e sent to the laborato ry for confirmatory te sting. Method descript ion: The i-STAT is a n analyzer used f or in vitro quantific ation of various anal ytes in whole blood. The device uses a s jose a disposable cart ridge which contains microfabricated sensors, a calibration dixie ution, fluidics system , and a waste chamber . Each test cartridge contains chemic ally sensitive biose nsors on a [employer] ip that are config ured to perform spec ific tests. The microfabricated sensors measure analyte concent ration by an electroch emical assay. POC EGFR (test code 141 See_Comment The eGFR cr is = 64308) calculated with the 2020 CKD-EPI creatinine equa tion using creatinin e, patient's age, and sex for adults 18 years of age an d older. Other fa ctors, especially musc le mass, may affec t accuracy and ne ed to be considered.Acco rding to the Kidney Disease: Improv ing Global Outcomes (KDIGO) CKD Wor k Group 2012 Clin ical Practice [place] in[place], chronic kidney disease (CKD) i s defined as the abnormalities o f kidney structur e or function, prese nt for more than 3 mon ths, with implicatio ns for health. CKD michele uld be classified by c ause, GFR category, a nd albuminuria cat egory. KDIGO guideline s provide the fol lowing GFR categoriesS tage Description GFR mL/min/1.73 m2G 1* Normal or high >= 90G2* Mildly decreased 60-89 G3a Mildly to moder ately decreased 45-59 G3b Moderately to severely decrea sed 30-44G4 Severel y decreased 15-29 G5 Kidney failure <15*In the absence of evidence of kid ajith damage, neither G1 nor G2 fulfill criteria for CK D. [Automated mess age] The system [employer] generated this result transmitted ref erence range: >=60 mL/min/1.73 sq. m. The reference r ashley was not used to interpret this result as normal/abnor mal. POC Glucose (test 224 mg/dL 70-99 H Medication s, code = 2339-0) especially hydroxyurea, ca n interfere with test results causing a falsely and significantly h igher result than exp ected. If a problem is suspected with a patient's resul t, a sample should b e sent to the laborato ry for confirmatory te sting. POC Ion Ca (test 0.97 mmol/L 1.12-1.32 L code = 1993-) POC Hct (test code = 38.0 % 38.0-51.0 6680) POC Hgb (test code = 12.9 See_Comment Hematoc rit values 6682) from the iSTAT are determined conductometrica lly, which may be af fected by WBC count, l evels of total protei n, lipids, or sodi um. The hemoglobin result is calculated b ased on the correspo nding measured hemato crit and assumes a n ormal MCHC. If there is a discrepancy bet ween the results fro m iSTAT and conventional laboratory meth od, the result from conventional me thod should be consi dered the accurate standard. [Auto mated message] The sy stem which generated this result transmit eugene reference range : 12.0 - 17.0 gm/dL. T he reference range was not used to int erpret this result as normal/abnormal . POC Sample Type Arterial (test code = 6690) POC Clean Dev (test Yes code = 6672) Performing Lab (test [facility] Main Main Ca mpus code = 91876) [facility] Cli nical Lab, [address], [place] [address]; Water Treatment Plant Repairer: Guerline Olmstead MD; Waived Point of Care Testing - Luz Maria levi MD Lab Interpretation Abnormal (test code = 15581-0) [facility] Chem [id number] 16:07:54 Test Item Value Reference Range Interpretation Comments POC NA (test code = 145 See_Comment [Automa eugene message] 2947-0) The system [employer] generated this result transmitted ref erence range: 138 - 14 6 mEq/L. The refe rence range was not u sed to interpret this result as normal/abnor mal. POC K (test code = 3.1 See_Comment L Method de scription: 98-4) The i-STAT is a n analyzer used f or in vitro quantific ation of various anal ytes in whole blood. The device uses a s jose a disposable cart ridge which contains microfabricated sensors, a calibration dxiie ution, fluidics system , and a waste chamber . Each test cartridge contains chemic ally sensitive biose nsors on a [employer] that are config ured to perform spec ific tests. The microfabricated sensors measure analyte concent ration by an electroch emical assay. [Automat ed message] The sy stem which generated this result transmit eugene reference range : 3.5 - 4.9 mEq/L. Th e reference range was not used to int erpret this result as normal/abnormal . POC CL (test code = 103 See_Comment [Automa eugene message] 2068-04) The system [employer] generated this result transmitted ref erence range: 98 - 109 mEq/L. The refe rence range was not u sed to interpret this result as normal/abnor mal. POC ATCO2 (test code 27 See_Comment [Autom ated message] = 2025-04) The system [employer] generated this result transmitted ref erence range: 23 - 27 mEq/L. The reference r ashley was not used to interpret this result as normal/abnor mal. POC Anion Gap (test 19 mmol/L -20 code = 99784) POC BUN (test code = 7 mg/dL 8-26 L 6299-2) POC Crea (test code 0.4 mg/dL 0.6-1.3 L Medicati ons, = 60910-5) especially hydroxyurea or supplements, limon ch as ascorbate, can interfere with test results causing a falsely and significantly h igher result than exp ected. If a problem is suspected with a patient's resul t, a sample should b e sent to the [facility] for confirmatory te sting. Method descript ion: The i-STAT is a n analyzer used f or in vitro quantific ation of various anal ytes in whole blood. The device uses a s jose a disposable cart ridge which contains microfabricated sensors, a calibration dixie ution, fluidics system , and a waste chamber . Each test cartridge contains chemic ally sensitive biose nsors on a [employer] ip that are config ured to perform spec ific tests. The microfabricated sensors measure analyte concent ration by an electroch emical assay. POC EGFR (test code 141 See_Comment The eGFR cr is = 85038) calculated with the 2020 CKD-EPI creatinine equa tion using creatinin e, patient's age, and sex for adults 18 years of age an d older. Other fa ctors, especially musc le mass, may affec t accuracy and ne ed to be considered.Acco rding to the Kidney Disease: Improv ing Global Outcomes (KDIGO) CKD Wor k Group 2011 Clin ical Practice [place] in[place], chronic kidney disease (CKD) i s defined as the abnormalities o f kidney structur e or function, prese nt for more than 3 mon ths, with implicatio ns for health. CKD michele uld be classified by c ause, GFR category, a nd albuminuria cat egory. KDIGO guideline s provide the fol lowing GFR categoriesS tage Description GFR mL/min/1.73 m2G 1* Normal or high >= 90G2* Mildly decreased 60-89 G3a Mildly to moder ately decreased 45-59 G3b Moderately to severely decrea sed 30-44G4 Severel y decreased 15-29 G5 Kidney failure <15*In the absence of evidence of kid ajith damage, neither G1 nor G2 fulfill criteria for CK D. [Automated mess age] The system [employer] generated this result transmitted ref erence range: >=60 mL/min/1.73 sq. m. The reference r ashley was not used to interpret this result as normal/abnor mal. POC Glucose (test 224 mg/dL 70-99 H Medication s, code = 2339-0) especially hydroxyurea, ca n interfere with test results causing a falsely and significantly h igher result than exp ected. If a problem is suspected with a patient's resul t, a sample should b e sent to the laborato for confirmatory te sting. POC Ion Ca (test 0.97 mmol/L 1.12-1.32 L code = 1993-) POC Hct (test code = 38.0 % 38.0-51.0 6680) POC Hgb (test code = 12.9 See_Comment Hematoc rit values 6682) from the iSTAT are determined conductometrica lly, which may be af fected by WBC count, l evels of total protei n, lipids, or sodi um. The hemoglobin result is calculated b ased on the correspo nding measured hemato crit and assumes a n ormal MCHC. If there is a discrepancy bet ween the results fro m iSTAT and conventional laboratory meth od, the result from conventional me thod should be consi dered the accurate standard. [Auto mated message] The sy stem which generated this result transmit eugene reference range : 12.0 - 17.0 gm/dL. T he reference range was not used to int erpret this result as normal/abnormal . POC Sample Type Arterial (test code = 6690) POC Clean Dev (test Yes code = 6672) Performing Lab (test [facility] Main Main Ca mpus code = 52373) [facility] Cli nical Lab, [address], [place] [address]; Water Treatment Plant Repairer: Guerline Olmstead MD; Waived Point of Care Testing - Luz Maria levi MD Lab Interpretation Abnormal (test code = 89173-4) [facility] [id number] 16:07:27 Test Item Value Reference Range Interpretation Comments C-Peptide (test code = 1985-10) 2.34 ng/mL 1.10-4.40 [facility] [id number] 16:07:27 Test Item Value Reference Range Interpretation Comments C-Peptide (test code = 1985-10) 2.34 ng/mL 1.10-4.40 [facility] [id number] 16:07:27 Test Item Value Reference Range Interpretation Comments C-Peptide (test code = 1985-10) 2.34 ng/mL 1.10-4.40 [facility] [id number] 16:07:27 Test Item Value Reference Range Interpretation Comments C-Peptide (test code = 1985-10) 2.34 ng/mL 1.10-4.40 [facility] [id number] 16:07:27 Test Item Value Reference Range Interpretation Comments C-Peptide (test code = 1985-10) 2.34 ng/mL 1.10-4.40 [facility] [id number] 16:07:27 Test Item Value Reference Range Interpretation Comments C-Peptide (test code = 1985-10) 2.34 ng/mL 1.10-4.40 [facility] [id number] 16:07:27 Test Item Value Reference Range Interpretation Comments C-Peptide (test code = 1985-10) 2.34 ng/mL 1.10-4.40 [facility] [id number] 16:07:27 Test Item Value Reference Range Interpretation Comments C-Peptide (test code = 1985-10) 2.34 ng/mL 1.10-4.40 [facility] [id number] 16:07:27 Test Item Value Reference Range Interpretation Comments C-Peptide (test code = 1985-10) 2.34 ng/mL 1.10-4.40 [facility] [id number] 16:07:23 Test Item Value Reference Range Interpretation Comments POC AB pH (test code 7.34 7.35-7.45 L The i-S TAT is an = 2744-1) analyzer used f or in vitro quantific ation of various anal ytes in whole blood. The device uses a s jose a disposable cart ridge which contains microfabricated sensors, a calibration solution, fluid ics system, and a w aste chamber. Each t est cartridge conta ins chemically sens itive biosensors on a silicon chip th at are configured to perform specifi c tests. The microfabricated sensors measure analyte concentration b y an electrochemical assay. POC AB pCO2 (test 49 See_Comment H [Automate d message] code = 2018-) The system [facility] generated this result transmit eugene reference range : 35 - 45 mmHg. The reference range was not used to interpret this result as normal/abnormal . POC AB pO2 (test 46 See_Comment A [Automated message] code = 2703-7) The system [employer] generated this result transmit eugene reference range : 80 - 105 mmHg. The reference range was not used to interpret this result as normal/abnormal . POC AB TCO2 (test 28 See_Comment H [Automate d message] code = 2025-) The system [employer] generated this result transmit eugene reference range : 23 - 27 mEq/L. The reference range was not used to interpret this result as normal/abnormal . POC AB Bicarb (test 26 mmol/L 22-26 code = 1960-4) POC AB Base Ex (test 0 mmol/L -2-3 code = 68506-9) POC AB O2 Sat (test 78 % 95-98 L code = 2708-6) POC FiO2 (test code 100 = 3150-0) POC ABG Draw Site Rt Radial (test code = 6663) POC Elias Test (test Not Performed code = 38860-3) POC Sample Type Arterial (test code = 6690) POC Clean Dev (test Yes code = 6672) Performing Lab (test [facility] code = 83102) [facility] Cli nical Lab, [address] [place] [address], [place] [address]; Water Treatment Plant Repairer: Guerline Olmstead MD; Waived Point of Care Testing - Luz Maria levi MD Lab Interpretation Abnormal (test code = 81819-7) [facility] [id number] 16:07:23 Test Item Value Reference Range Interpretation Comments POC AB pH (test code 7.34 7.35-7.45 L The i-S TAT is an = 2744-1) analyzer used f or in vitro quantific ation of various anal ytes in whole blood. The device uses a s jose a disposable cart ridge which contains microfabricated sensors, a calibration solution, fluid ics system, and a w aste chamber. Each t est cartridge conta ins chemically sens itive biosensors on a silicon chip th at are configured to perform specifi c tests. The microfabricated sensors measure analyte concentration b y an electrochemical assay. POC AB pCO2 (test 49 See_Comment H [Automate d message] code = 2018-09) The system [employer] generated this result transmit eugene reference range : 35 - 45 mmHg. The reference range was not used to interpret this result as normal/abnormal . POC AB pO2 (test 46 See_Comment A [Automated message] code = 2703-7) The system [employer] generated this result transmit eugene reference range : 80 - 105 mmHg. The reference range was not used to interpret this result as normal/abnormal . POC AB TCO2 (test 28 See_Comment H [Automate d message] code = 2025-) The system [employer] generated this result transmit eugene reference range : 23 - 27 mEq/L. The reference range was not used to interpret this result as normal/abnormal . POC AB Bicarb (test 26 mmol/L 22-26 code = 1960-4) POC AB Base Ex (test 0 mmol/L -2-3 code = 28235-1) POC AB O2 Sat (test 78 % 95-98 L code = 2708-6) POC FiO2 (test code 100 = 3150-0) POC ABG Draw Site Rt Radial (test code = 6663) POC Elias Test (test Not Performed code = 89766-2) POC Sample Type Arterial (test code = 6690) POC Clean Dev (test Yes code = 6672) Performing Lab (test [facility] code = 60151) [facility] Cli nical Lab, [address] [place] [address], [place] [address]; [employer] Treatment Plant Repairer: Guerline Olmstead MD; Waived Point of Care Testing - Luz Maria levi MD Lab Interpretation Abnormal (test code = 95176-5) [facility] [id number] 16:07:23 Test Item Value Reference Range Interpretation Comments POC AB pH (test code 7.34 7.35-7.45 L The i-S TAT is an = 2744-1) analyzer used f or in vitro quantific ation of various anal ytes in whole blood. The device uses a s jose a disposable cart ridge which contains microfabricated sensors, a calibration solution, fluid ics system, and a w aste chamber. Each t est cartridge conta ins chemically sens itive biosensors on a silicon chip th at are configured to perform specifi c tests. The microfabricated sensors measure analyte concentration b y an electrochemical assay. POC AB pCO2 (test 49 See_Comment H [Automate d message] code = 2018-09) The system [employer] generated this result transmit eugene reference range : 35 - 45 mmHg. The reference range was not used to interpret this result as normal/abnormal . POC AB pO2 (test 46 See_Comment A [Automated message] code = 2703-7) The system [employer] generated this result transmit eugene reference range : 80 - 105 mmHg. The reference range was not used to interpret this result as normal/abnormal . POC AB TCO2 (test 28 See_Comment H [Automate d message] code = 6-3) The system [employer] generated this result transmit eugene reference range : 23 - 27 mEq/L. The reference range was not used to interpret this result as normal/abnormal . POC AB Bicarb (test 26 mmol/L 22-26 code = 1960-4) POC AB Base Ex (test 0 mmol/L -2-3 code = 65979-5) POC AB O2 Sat (test 78 % 95-98 L code = 2708-6) POC FiO2 (test code 100 = 3150-0) POC ABG Draw Site Rt Radial (test code = 6663) POC Elias Test (test Not Performed code = 43920-5) POC Sample Type Arterial (test code = 6690) POC Clean Dev (test Yes code = 6672) Performing Lab (test [facility] code = 17285) [facility] Cli nical Lab, [address] [facility] [address], [place] [address]; [employer] Treatment Plant Repairer: Guerline Olmstead MD; Waived Point of Care Testing - Luz Maria levi MD Lab Interpretation Abnormal (test code = 84822-2) [facility] [id number] 16:07:23 Test Item Value Reference Range Interpretation Comments POC AB pH (test code 7.34 7.35-7.45 L The i-S TAT is an = 2744-1) analyzer used f or in vitro quantific ation of various anal ytes in whole blood. The device uses a s jose a disposable cart ridge which contains microfabricated sensors, a calibration solution, fluid ics system, and a w aste chamber. Each t est cartridge conta ins chemically sens itive biosensors on a silicon chip th at are configured to perform specifi c tests. The microfabricated sensors measure analyte concentration b y an electrochemical assay. POC AB pCO2 (test 49 See_Comment H [Automate d message] code = 2018-09) The system [employer] generated this result transmit eugene reference range : 35 - 45 mmHg. The reference range was not used to interpret this result as normal/abnormal . POC AB pO2 (test 46 See_Comment A [Automated message] code = 2703-7) The system [employer] generated this result transmit eugene reference range : 80 - 105 mmHg. The reference range was not used to interpret this result as normal/abnormal . POC AB TCO2 (test 28 See_Comment H [Automate d message] code = 2025-3) The system [employer] generated this result transmit eugene reference range : 23 - 27 mEq/L. The reference range was not used to interpret this result as normal/abnormal . POC AB Bicarb (test 26 mmol/L 22-26 code = 1960-4) POC AB Base Ex (test 0 mmol/L -2-3 code = 97161-5) POC AB O2 Sat (test 78 % 95-98 L code = 2708-6) POC FiO2 (test code 100 = 3150-0) POC ABG Draw Site Rt Radial (test code = 6663) POC Elias Test (test Not Performed code = 71428-1) POC Sample Type Arterial (test code = 6690) POC Clean Dev (test Yes code = 6672) Performing Lab (test [facility] [place] code = 63719) [facility] Cli nical Lab, [address] [place] [address], [place] [address]; [employer] Treatment Plant Repairer: Guerline Olmstead MD; Waived Point of Care Testing - Luz Maria levi MD Lab Interpretation Abnormal (test code = 99175-4) [facility] [id number] 16:07:23 Test Item Value Reference Range Interpretation Comments POC AB pH (test code 7.34 7.35-7.45 L The i-S TAT is an = 2744-1) analyzer used f or in vitro quantific ation of various anal ytes in whole blood. The device uses a s jose a disposable cart ridge which contains microfabricated sensors, a calibration solution, fluid ics system, and a w aste chamber. Each t est cartridge conta ins chemically sens itive biosensors on a silicon chip th at are configured to perform specifi c tests. The microfabricated sensors measure analyte concentration b y an electrochemical assay. POC AB pCO2 (test 49 See_Comment H [Automate d message] code = 2019-) The system [facility] generated this result transmit eugene reference range : 35 - 45 mmHg. The reference range was not used to interpret this result as normal/abnormal . POC AB pO2 (test 46 See_Comment A [Automated message] code = 2703-7) The system [facility] generated this result transmit eugene reference range : 80 - 105 mmHg. The reference range was not used to interpret this result as normal/abnormal . POC AB TCO2 (test 28 See_Comment H [Automate d message] code = 2025-3) The system [employer] generated this result transmit eugene reference range : 23 - 27 mEq/L. The reference range was not used to interpret this result as normal/abnormal . POC AB Bicarb (test 26 mmol/L 22-26 code = 1960-4) POC AB Base Ex (test 0 mmol/L -2-3 code = 98625-7) POC AB O2 Sat (test 78 % 95-98 L code = 2708-6) POC FiO2 (test code 100 = 3150-0) POC ABG Draw Site Rt Radial (test code = 6663) POC Elias Test (test Not Performed code = 57108-7) POC Sample Type Arterial (test code = 6690) POC Clean Dev (test Yes code = 6672) Performing Lab (test [facility] code = 23980) [facility] Cli nical Lab, [address] [place] [address], [place] [address]; [employer] Treatment Plant Repairer: Guerline Olmstead MD; Waived Point of Care Testing - Luz Maria levi MD Lab Interpretation Abnormal (test code = 37987-5) [facility] [id number] 16:07:23 Test Item Value Reference Range Interpretation Comments POC AB pH (test code 7.34 7.35-7.45 L The i-S TAT is an = 2744-1) analyzer used f or in vitro quantific ation of various anal ytes in whole blood. The device uses a s jose a disposable cart ridge which contains microfabricated sensors, a calibration solution, fluid ics system, and a w aste chamber. Each t est cartridge conta ins chemically sens itive biosensors on a silicon chip [facility] are configured to perform specifi c tests. The microfabricated sensors measure analyte concentration b y an electrochemical assay. POC AB pCO2 (test 49 See_Comment H [Automate d message] code = 2018-09) The system [facility] generated this result transmit eugene reference range : 35 - 45 mmHg. The reference range was not used to interpret this result as normal/abnormal . POC AB pO2 (test 46 See_Comment A [Automated message] code = 3-7) The system [facility] generated this result transmit eugene reference range : 80 - 105 mmHg. The reference range was not used to interpret this result as normal/abnormal . POC AB TCO2 (test 28 See_Comment H [Automate d message] code = 2025-) The system [facility] generated this result transmit eugene reference range : 23 - 27 mEq/L. The reference range was not used to interpret this result as normal/abnormal . POC AB Bicarb (test 26 mmol/L 22-26 code = 1960-4) POC AB Base Ex (test 0 mmol/L -2-3 code = 72142-0) POC AB O2 Sat (test 78 % 95-98 L code = 2708-6) POC FiO2 (test code 100 = 3150-0) POC ABG Draw Site Rt Radial (test code = 6663) POC Elias Test (test Not Performed code = 74395-5) POC Sample Type Arterial (test code = 6690) POC Clean Dev (test Yes code = 6672) Performing Lab (test [facility] code = 10706) [facility] Cli nical Lab, [address] [place] [address]; Water Treatment Plant Repairer: Guerline Olmstead MD; Waived Point of Care Testing - Luz Maria levi MD Lab Interpretation Abnormal (test code = 99971-5) [facility] MD [facility] [id number] 16:07:23 Test Item Value Reference Range Interpretation Comments POC AB pH (test code 7.34 7.35-7.45 L The i-S TAT is an = 2744-1) analyzer used f or in vitro quantific ation of various anal ytes in whole blood. The device uses a s jose a disposable cart ridge which contains microfabricated sensors, a calibration solution, fluid ics system, and a w aste chamber. Each t est cartridge conta ins chemically sens itive biosensors on a silicon chip th at are configured to perform specifi c tests. The microfabricated sensors measure analyte concentration b y an electrochemical assay. POC AB pCO2 (test 49 See_Comment H [Automate d message] code = 2018-09) The system [employer] generated this result transmit eugene reference range : 35 - 45 mmHg. The reference range was not used to interpret this result as normal/abnormal . POC AB pO2 (test 46 See_Comment A [Automated message] code = 3-7) The system [employer] generated this result transmit eugene reference range : 80 - 105 mmHg. The reference range was not used to interpret this result as normal/abnormal . POC AB TCO2 (test 28 See_Comment H [Automate d message] code = 2025-) The system [employer] generated this result transmit eugeen reference range : 23 - 27 mEq/L. The reference range was not used to interpret this result as normal/abnormal . POC AB Bicarb (test 26 mmol/L 22-26 code = 1960-4) POC AB Base Ex (test 0 mmol/L -2-3 code = 28926-5) POC AB O2 Sat (test 78 % 95-98 L code = 2708-6) POC FiO2 (test code 100 = 3150-0) POC ABG Draw Site Rt Radial (test code = 6663) POC Elias Test (test Not Performed code = 05458-3) POC Sample Type Arterial (test code = 6690) POC Clean Dev (test Yes code = 6672) Performing Lab (test [facility] code = 94037) [facility] Cli nical Lab, [address] [facility] [address], [place] [address]; Water Treatment Plant Repairer: Guerline Olmstead MD; Waived Point of Care Testing - Luz Maria levi MD Lab Interpretation Abnormal (test code = 25934-1) [facility] [id number] 16:07:23 Test Item Value Reference Range Interpretation Comments POC AB pH (test code 7.34 7.35-7.45 L The i-S TAT is an = 2744-1) analyzer used f or in vitro quantific ation of various anal ytes in whole blood. The device uses a s jose a disposable cart ridge which contains microfabricated sensors, a calibration solution, fluid ics system, and a w aste chamber. Each t est cartridge conta ins chemically sens itive biosensors on a silicon chip th at are configured to perform specifi c tests. The microfabricated sensors measure analyte concentration b y an electrochemical assay. POC AB pCO2 (test 49 See_Comment H [Automate d message] code = 2018-09) The system [facility] generated this result transmit eugene reference range : 35 - 45 mmHg. The reference range was not used to interpret this result as normal/abnormal . POC AB pO2 (test 46 See_Comment A [Automated message] code = 2703-7) The system [facility] generated this result transmit eugene reference range : 80 - 105 mmHg. The reference range was not used to interpret this result as normal/abnormal . POC AB TCO2 (test 28 See_Comment H [Automate d message] code = 2025-3) The system [facility] generated this result transmit eugene reference range : 23 - 27 mEq/L. The reference range was not used to interpret this result as normal/abnormal . POC AB Bicarb (test 26 mmol/L 22-26 code = 1960-4) POC AB Base Ex (test 0 mmol/L -2-3 code = 10454-5) POC AB O2 Sat (test 78 % 95-98 L code = 2708-6) POC FiO2 (test code 100 = 3150-0) POC ABG Draw Site Rt Radial (test code = 6663) POC Elias Test (test Not Performed code = 90461-8) POC Sample Type Arterial (test code = 6690) POC Clean Dev (test Yes code = 6672) Performing Lab (test [facility] [place] code = 00636) [facility] Cli nical Lab, [address] [place] [address] [place], [place] [address]; Water Treatment Plant Repairer: Guerline Olmstead MD; Waived Point of Care Testing - Luz Maria levi MD Lab Interpretation Abnormal (test code = 00797-4) [facility] Cancer [facility] [id number] 16:07:23 Test Item Value Reference Range Interpretation Comments POC AB pH (test code 7.34 7.35-7.45 L The i-S TAT is an = 2744-1) analyzer used f or in vitro quantific ation of various anal ytes in whole blood. The device uses a s jose a disposable cart ridge which contains microfabricated sensors, a calibration solution, fluid ics system, and a w aste chamber. Each t est cartridge conta ins chemically sens itive biosensors on a silicon chip th at are configured to perform specifi c tests. The microfabricated sensors measure analyte concentration b y an electrochemical assay. POC AB pCO2 (test 49 See_Comment H [Automate d message] code = 2018-09) The system [facility] generated this result transmit eugene reference range : 35 - 45 mmHg. The reference range was not used to interpret this result as normal/abnormal . POC AB pO2 (test 46 See_Comment A [Automated message] code = 2702-7) The system [facility] generated this result transmit eugene reference range : 80 - 105 mmHg. The reference range was not used to interpret this result as normal/abnormal . POC AB TCO2 (test 28 See_Comment H [Automate d message] code = 2025-) The system [facility] generated this result transmit eugene reference range : 23 - 27 mEq/L. The reference range was not used to interpret this result as normal/abnormal . POC AB Bicarb (test 26 mmol/L 22-26 code = 1960-4) POC AB Base Ex (test 0 mmol/L -2-3 code = 47500-0) POC AB O2 Sat (test 78 % 95-98 L code = 2708-6) POC FiO2 (test code 100 = 3150-0) POC ABG Draw Site Rt Radial (test code = 6663) POC Elias Test (test Not Performed code = 15380-1) POC Sample Type Arterial (test code = 6690) POC Clean Dev (test Yes code = 6672) Performing Lab (test [facility] [place] code = 27409) [facility] Cli nical Lab, [facility] [address], [place] [address]; Water Treatment Plant Repairer: Guerline Olmstead MD; Waived Point of Care Testing - Luz Maria levi MD Lab Interpretation Abnormal (test code = 04027-1) [facility] Cancer [id number] 11:44:21 Test Item Value Reference Range Interpretation Comments pH Kojo (test code = 7.31 7.32-7.43 L Results are 2746-6) corrected for a body temp of 37C pCO2 Kojo (test code = 35.9 See_Comment L [Auto mated message] 2020-05) The system [employer] generated this result transmit eugene reference range : 41.0 - 51.0 mmH g. The reference r ashley was not used to interpret this result as normal/abnormal . pO2 Kojo (test code = 56 mmHg 2705-2) HCO3 Kojo (test code = 18 mmol/L 21-28 L 63508-3) Base Excess Kojo (test -7 mmol/L -2-3 L code = 1927-3) O2 Sat Kojo (test code = 90 % 2711-0) Lab Interpretation (test Abnormal code = 53472-0) [facility] Test Item Value Reference Range Interpretation Comments pH Kojo (test code = 7.31 7.32-7.43 L Results are 2746-6) corrected for a body temp of 37C pCO2 Kojo (test code = 35.9 See_Comment L [Auto mated message] 2020-05) The system [employer] generated this result transmit eugene reference range : 41.0 - 51.0 mmH g. The reference r ashley was not used to interpret this result as normal/abnormal . pO2 Kojo (test code = 56 mmHg 2705-2) HCO3 Kjoo (test code = 18 mmol/L 21-28 L 75812-4) Base Excess Kojo (test -7 mmol/L -2-3 L code = 1927-3) O2 Sat Kojo (test code = 90 % 2711-0) Lab Interpretation (test Abnormal code = 12898-3) [facility]:44[facility]21 Test Item Value Reference Range Interpretation Comments pH Kojo (test code = 7.31 7.32-7.43 L Results are 2746-6) corrected for a body temp of 37C pCO2 Kojo (test code = 35.9 See_Comment L [Auto mated message] 2020-05) The system [employer] generated this result transmit eugene reference range : 41.0 - 51.0 mmH g. The reference r ashley was not used to interpret this result as normal/abnormal . pO2 Kojo (test code = 56 mmHg 2705-2) HCO3 Kojo (test code = 18 mmol/L 21-28 L 34088-2) Base Excess Kojo (test -7 mmol/L -2-3 L code = 1927-3) O2 Sat Kojo (test code = 90 % 2711-0) Lab Interpretation (test Abnormal code = 99190-5) [facility]:44[facility]21 Test Item Value Reference Range Interpretation Comments pH Kojo (test code = 7.31 7.32-7.43 L Results are 2746-6) corrected for a body temp of 37C pCO2 Kojo (test code = 35.9 See_Comment L [Auto mated message] 2020-05) The system [employer] generated this result transmit eugene reference range : 41.0 - 51.0 mmH g. The reference r ashley was not used to interpret this result as normal/abnormal . pO2 Kojo (test code = 56 mmHg 2705-2) HCO3 Kojo (test code = 18 mmol/L 21-28 L 50423-2) Base Excess Kojo (test -7 mmol/L -2-3 L code = 1927-3) O2 Sat Kojo (test code = 90 % 2711-0) Lab Interpretation (test Abnormal code = 40680-1) [facility] Test Item Value Reference Range Interpretation Comments pH Kojo (test code = 7.31 7.32-7.43 L Results are 2746-6) corrected for a body temp of 37C pCO2 Kojo (test code = 35.9 See_Comment L [Auto mated message] 2020-05) The system [employer] generated this result transmit eugene reference range : 41.0 - 51.0 mmH g. The reference r ashley was not used to interpret this result as normal/abnormal . pO2 Kojo (test code = 56 mmHg 2705-2) HCO3 Kojo (test code = 18 mmol/L 21-28 L 50600-8) Base Excess Kojo (test -7 mmol/L -2-3 L code = 1927-3) O2 Sat Kojo (test code = 90 % 2711-0) Lab Interpretation (test Abnormal code = 58448-8) [facility] Test Item Value Reference Range Interpretation Comments pH Kojo (test code = 7.31 7.32-7.43 L Results are 2746-6) corrected for a body temp of 37C pCO2 Kojo (test code = 35.9 See_Comment L [Auto mated message] 2020-05) The system [employer] generated this result transmit eugene reference range : 41.0 - 51.0 mmH g. The reference r ashley was not used to interpret this result as normal/abnormal . pO2 Kojo (test code = 56 mmHg 2705-2) HCO3 Kojo (test code = 18 mmol/L 21-28 L 27155-4) Base Excess Kojo (test -7 mmol/L -2-3 L code = 1927-3) O2 Sat Kojo (test code = 90 % 2711-0) Lab Interpretation (test Abnormal code = 40656-0) [facility] Test Item Value Reference Range Interpretation Comments pH Kojo (test code = 7.31 7.32-7.43 L Results are 2746-6) corrected for a body temp of 37C pCO2 Kojo (test code = 35.9 See_Comment L [Auto mated message] 2020-05) The system [employer] generated this result transmit eugene reference range : 41.0 - 51.0 mmH g. The reference r ashley was not used to interpret this result as normal/abnormal . pO2 Kojo (test code = 56 mmHg 2705-2) HCO3 Kojo (test code = 18 mmol/L 21-28 L 60409-7) Base Excess Kojo (test -7 mmol/L -2-3 L code = 1927-3) O2 Sat Kojo (test code = 90 % 2711-0) Lab Interpretation (test Abnormal code = 09754-5) [facility] Test Item Value Reference Range Interpretation Comments pH Kojo (test code = 7.31 7.32-7.43 L Results are 2746-6) corrected for a body temp of 37C pCO2 Kojo (test code = 35.9 See_Comment L [Auto mated message] 2020-05) The system [employer] generated this result transmit eugene reference range : 41.0 - 51.0 mmH g. The reference r ashley was not used to interpret this result as normal/abnormal . pO2 Kojo (test code = 56 mmHg 2705-2) HCO3 Kojo (test code = 18 mmol/L 21-28 L 50541-3) Base Excess Kojo (test -7 mmol/L -2-3 L code = 1927-3) O2 Sat Kojo (test code = 90 % 2711-0) Lab Interpretation (test Abnormal code = 65157-7) [facility]21 Test Item Value Reference Range Interpretation Comments pH Kojo (test code = 7.31 7.32-7.43 L Results are 2746-6) corrected for a body temp of 37C pCO2 Kojo (test code = 35.9 See_Comment L [Auto mated message] 2020-05) The system [employer] generated this result transmit eugene reference range : 41.0 - 51.0 mmH g. The reference r ashley was not used to interpret this result as normal/abnormal . pO2 Kojo (test code = 56 mmHg 2705-2) HCO3 Kojo (test code = 18 mmol/L 21-28 L 39708-5) Base Excess Kojo (test -7 mmol/L -2-3 L code = 1927-3) O2 Sat Kojo (test code = 90 % 2711-0) Lab Interpretation (test Abnormal code = 12939-0) [facility] [id number] 07:39:31 Test Item Value Reference Range Interpretation Comments Calcium Lvl (test code = 27171-3) 7.7 mg/dL 8.4-10.2 L Lab Interpretation (test code = Abnormal 16134-6) [facility] [id number] 07:39:31 Test Item Value Reference Range Interpretation Comments Calcium Lvl (test code = 10162-0) 7.7 mg/dL 8.4-10.2 L Lab Interpretation (test code = Abnormal 89671-5) [facility] [id number] 07:39:31 Test Item Value Reference Range Interpretation Comments Calcium Lvl (test code = 20991-0) 7.7 mg/dL 8.4-10.2 L Lab Interpretation (test code = Abnormal 77354-3) [facility] [id number] 07:39:31 Test Item Value Reference Range Interpretation Comments Calcium Lvl (test code = 54928-6) 7.7 mg/dL 8.4-10.2 L Lab Interpretation (test code = Abnormal 21105-9) [facility] [id number] 07:39:31 Test Item Value Reference Range Interpretation Comments Calcium Lvl (test code = 85981-9) 7.7 mg/dL 8.4-10.2 L Lab Interpretation (test code = Abnormal 55670-7) [facility] [id number] 07:39:31 Test Item Value Reference Range Interpretation Comments Calcium Lvl (test code = 02097-5) 7.7 mg/dL 8.4-10.2 L Lab Interpretation (test code = Abnormal 78666-2) [facility] [id number] 07:39:31 Test Item Value Reference Range Interpretation Comments Calcium Lvl (test code = 87410-4) 7.7 mg/dL 8.4-10.2 L Lab Interpretation (test code = Abnormal 61222-7) [facility] [id number] 09:06:45 Test Item Value Reference Range Interpretation Comments ABORh Confirm. (test code = 882-1) A POS [facility] [id number] 09:06:45 Test Item Value Reference Range Interpretation Comments ABORh Confirm. (test code = 882-1) A POS [facility] [id number] 09:06:45 Test Item Value Reference Range Interpretation Comments ABORh Confirm. (test code = 882-1) A POS [facility] [id number] 09:06:45 Test Item Value Reference Range Interpretation Comments ABORh Confirm. (test code = 882-1) A POS [facility] [id number] 09:06:45 Test Item Value Reference Range Interpretation Comments ABORh Confirm. (test code = 882-1) A POS [facility] [id number] 09:06:45 Test Item Value Reference Range Interpretation Comments ABORh Confirm. (test code = 882-1) A POS [facility] [id number] 09:06:45 Test Item Value Reference Range Interpretation Comments ABORh Confirm. (test code = 882-1) A POS [facility] [id number] 09:06:45 Test Item Value Reference Range Interpretation Comments ABORh Confirm. (test code = 882-1) A POS [facility] [id number] 09:06:45 Test Item Value Reference Range Interpretation Comments ABORh Confirm. (test code = 882-1) A POS [facility] 2022-03-25 08:08:13 Test Item Value Reference Range Interpretation Comments UA WBC (test code = See_Comment H Some rep orting 11518-5) parameters with in the Urinalysis test have changed due to the implementation of new instrumentation in the [facility], [facility] greater sensiti vity of measurement. Urinalysis resu lts reported by the [facility] enters using existing instrumentation , as well as Urinaly sis testing perform ed manually or by backup methodology at the [facility] yola l remain relative ly unchanged. New reporting tracie eters and units will not be reported for [facility]. [Auto mated message] The sy stem which generated this result transmit eugene reference range : 0 - 2 /HPF. The refer ence range was not u sed to interpret this result as normal/abnor mal. UA RBC (test code = 11 See_Comment H [Automa eugene message] 08857-3) The system [employer] generated this result transmitted ref erence range: 0 - 2 /H PF. The reference range was not used to int erpret this result as normal/abnormal . UA Mucous (test code = TRACE Not Seen-Trace 15641-0) /HPF UA Bacteria (test code NOT SEEN NOT SEEN /HPF = 85021-4) UA Squam Epi (test 1+ None-Occasional A code = 22000-0) /HPF Lab Interpretation Abnormal (test code = 83585-3) [facility] 2022-03-25 08:08:13 Test Item Value Reference Range Interpretation Comments UA WBC (test code = See_Comment H Some rep orting 50780-0) parameters with in the Urinalysis test have changed due to the implementation of new instrumentation in the [facility], al lowing greater sensiti vity of measurement. Urinalysis resu lts reported by the [facility] enters using existing instrumentation , as well as Urinaly sis testing perform ed manually or by backup methodology at the [facility] yola l remain relative ly unchanged. New reporting tracie eters and units will not be reported for [facility]. [Auto mated message] The sy stem which generated this result transmit eugene reference range : 0 - 2 /HPF. The refer ence range was not u sed to interpret this result as normal/abnor mal. UA RBC (test code = 11 See_Comment H [Automa eugene message] 33180-3) The system [employer] generated this result transmitted ref erence range: 0 - 2 /H PF. The reference range was not used to int erpret this result as normal/abnormal . UA Mucous (test code = TRACE Not Seen-Trace 58318-6) /HPF UA Bacteria (test code NOT SEEN NOT SEEN /HPF = 05704-3) UA Squam Epi (test 1+ None-Occasional A code = 96710-0) /HPF Lab Interpretation Abnormal (test code = 86486-2) [facility] 2022-03-25 08:08:13 Test Item Value Reference Range Interpretation Comments UA WBC (test code = See_Comment H Some rep orting 67020-3) parameters with in the Urinalysis test have changed due to the implementation of new instrumentation in the [facility], al lowing greater sensiti vity of measurement. Urinalysis resu lts reported by the [facility] enters using existing instrumentation , as well as Urinaly sis testing perform ed manually or by backup methodology at the [facility] yola l remain relative ly unchanged. New reporting tracie eters and units will not be reported for [facility] [place]. [Auto mated message] The sy stem which generated this result transmit eugene reference range : 0 - 2 /HPF. The refer ence range was not u sed to interpret this result as normal/abnor mal. UA RBC (test code = 11 See_Comment H [Automa eugene message] 76167-4) The system [employer] generated this result transmitted ref erence range: 0 - 2 /H PF. The reference range was not used to int erpret this result as normal/abnormal . UA Mucous (test code = TRACE Not Seen-Trace 41560-7) /HPF UA Bacteria (test code NOT SEEN NOT SEEN /HPF = 03500-9) UA Squam Epi (test 1+ None-Occasional A code = 89812-2) /HPF Lab Interpretation Abnormal (test code = 16362-7) [facility] 2022-03-25 08:08:13 Test Item Value Reference Range Interpretation Comments UA WBC (test code = See_Comment H Some rep orting 88310-4) parameters with in the Urinalysis test have changed due to the implementation of new instrumentation in the [facility], [facility] greater sensiti vity of measurement. Urinalysis resu lts reported by the [facility] enters using existing instrumentation , as well as Urinaly sis testing perform ed manually or by backup methodology at the [facility] yola l remain relative ly unchanged. New reporting tracie eters and units will not be reported for al l campuses. [Auto mated message] The sy stem which generated this result transmit eugene reference range : 0 - 2 /HPF. The refer ence range was not u sed to interpret this result as normal/abnor mal. UA RBC (test code = 11 See_Comment H [Automa eugene message] 58517-5) The system [employer] generated this result transmitted ref erence range: 0 - 2 /H PF. The reference range was not used to int erpret this result as normal/abnormal . UA Mucous (test code = TRACE Not Seen-Trace 88532-7) /HPF UA Bacteria (test code NOT SEEN NOT SEEN /HPF = 12915-2) UA Squam Epi (test 1+ None-Occasional A code = 46887-1) /HPF Lab Interpretation Abnormal (test code = 19339-6) [facility] 2022-03-25 08:08:13 Test Item Value Reference Range Interpretation Comments UA WBC (test code = See_Comment H Some rep orting 94365-3) parameters with in the Urinalysis test have changed due to the implementation of new instrumentation in the [facility], al lowing greater sensiti vity of measurement. Urinalysis resu lts reported by the [facility] enters using existing instrumentation , as well as Urinaly sis testing perform ed manually or by backup methodology at the [facility] yola l remain relative ly unchanged. New reporting tracie eters and units will not be reported for [facility]. [Auto mated message] The sy stem which generated this result transmit eugene reference range : 0 - 2 /HPF. The refer ence range was not u sed to interpret this result as normal/abnor mal. UA RBC (test code = 11 See_Comment H [Automa eugene message] 18807-5) The system [employer] generated this result transmitted ref erence range: 0 - 2 /H PF. The reference range was not used to int erpret this result as normal/abnormal . UA Mucous (test code = TRACE Not Seen-Trace 61605-1) /HPF UA Bacteria (test code NOT SEEN NOT SEEN /HPF = 96336-4) UA Squam Epi (test 1+ None-Occasional A code = 85323-2) /HPF Lab Interpretation Abnormal (test code = 83735-0) [facility] [place] 2022-03-25 08:08:13 Test Item Value Reference Range Interpretation Comments UA WBC (test code = See_Comment H Some rep orting 81446-4) parameters with in the Urinalysis test have changed due to the implementation of new instrumentation in the [facility], al lowing greater sensiti vity of measurement. Urinalysis resu lts reported by the [facility] enters using existing instrumentation , as well as Urinaly sis testing perform ed manually or by backup methodology at the [facility] yola l remain relative ly unchanged. New reporting tracie eters and units will not be reported for [facility]. [Auto mated message] The sy stem which generated this result transmit eugene reference range : 0 - 2 /HPF. The refer ence range was not u sed to interpret this result as normal/abnor mal. UA RBC (test code = 11 See_Comment H [Automa eugene message] 54153-1) The system [employer] generated this result transmitted ref erence range: 0 - 2 /H PF. The reference range was not used to int erpret this result as normal/abnormal . UA Mucous (test code = TRACE Not Seen-Trace 79049-3) /HPF UA Bacteria (test code NOT SEEN NOT SEEN /HPF = 05020-7) UA Squam Epi (test 1+ None-Occasional A code = 42567-1) /HPF Lab Interpretation Abnormal (test code = 98089-5) [facility] 2022-03-25 08:08:13 Test Item Value Reference Range Interpretation Comments UA WBC (test code = See_Comment H Some rep orting 06655-8) parameters with in the Urinalysis test have changed due to the implementation of new instrumentation in the [facility] [place], al lowing greater sensiti vity of measurement. Urinalysis resu lts reported by the [facility] enters using existing instrumentation , as well as Urinaly sis testing perform ed manually or by backup methodology at the [facility] yola l remain relative ly unchanged. New reporting tracie eters and units will not be reported for al l campuses. [Auto mated message] The sy stem which generated this result transmit eugene reference range : 0 - 2 /HPF. The refer ence range was not u sed to interpret this result as normal/abnor mal. UA RBC (test code = 11 See_Comment H [Automa eugene message] 33256-8) The system [employer] generated this result transmitted ref erence range: 0 - 2 /H PF. The reference range was not used to int erpret this result as normal/abnormal . UA Mucous (test code = TRACE Not Seen-Trace 00572-0) /HPF UA Bacteria (test code NOT SEEN NOT SEEN /HPF = 72971-3) UA Squam Epi (test 1+ None-Occasional A code = 48412-1) /HPF Lab Interpretation Abnormal (test code = 79883-7) [facility] 2022-03-25 08:08:13 Test Item Value Reference Range Interpretation Comments UA WBC (test code = See_Comment H Some rep orting 05082-5) parameters with in the Urinalysis test have changed due to the implementation of new instrumentation in the [facility] [place], al lowing greater sensiti vity of measurement. Urinalysis resu lts reported by the [facility] enters using existing instrumentation , as well as Urinaly sis testing perform ed manually or by backup methodology at the [facility] yola l remain relative ly unchanged. New reporting tracie eters and units will not be reported for [facility] [place]. [Auto mated message] The sy stem which generated this result transmit eugene reference range : 0 - 2 /HPF. The refer ence range was not u sed to interpret this result as normal/abnor mal. UA RBC (test code = 11 See_Comment H [Automa eugene message] 33349-2) The system [employer] generated this result transmitted ref erence range: 0 - 2 /H PF. The reference range was not used to int erpret this result as normal/abnormal . UA Mucous (test code = TRACE Not Seen-Trace 45969-4) /HPF UA Bacteria (test code NOT SEEN NOT SEEN /HPF = 49267-8) UA Squam Epi (test 1+ None-Occasional A code = 49446-6) /HPF Lab Interpretation Abnormal (test code = 73547-0) [facility] [place] 2022-03-25 08:08:13 Test Item Value Reference Range Interpretation Comments UA WBC (test code = See_Comment H Some rep orting 53000-1) parameters with in the Urinalysis test have changed due to the implementation of new instrumentation in the [facility], [facility] greater sensiti vity of measurement. Urinalysis resu lts reported by the [facility] enters using existing instrumentation , as well as Urinaly sis testing perform ed manually or by backup methodology at the [facility] yola l remain relative ly unchanged. New reporting tracie eters and units will not be reported for [facility]. [Auto mated message] The sy stem which generated this result transmit eugene reference range : 0 - 2 /HPF. The refer ence range was not u sed to interpret this result as normal/abnor mal. UA RBC (test code = 11 See_Comment H [Automa eugene message] 76348-0) The system [employer] generated this result transmitted ref erence range: 0 - 2 /H PF. The reference range was not used to int erpret this result as normal/abnormal . UA Mucous (test code = TRACE Not Seen-Trace 11993-0) /HPF UA Bacteria (test code NOT SEEN NOT SEEN /HPF = 55701-4) UA Squam Epi (test 1+ None-Occasional A code = 19647-0) /HPF Lab Interpretation Abnormal (test code = 28197-9) [facility] Test Item Value Reference Range Interpretation Comments POC U hCG (test Negative Negative Very dilute urine code = 8552) specimens may c ause false negative results. Sugges t repeat in 48 ho urs with a first mo rning voided urine or request quantit ative serum beta HCG test. Method descript ion: The ICON 20 hCG Serum/Urine michael t employs a solid phase chromatographic immunoassay james hnology to selectively detect elevated levels of hCG in urine with a high degree of sensi tivity. POC U hCG Cont Valid (test code = 6710) Performing Lab [facility] (test code = of Toby HENDERSON And erson 80656) Clinical Lab, [address] [place] [address] 30; Water Treatment Plant Repairer: Guerline Olmstead MD; Waived Point of Care Testing - Luz Maria levi MD [facility] 07:26:33 Test Item Value Reference Range Interpretation Comments POC U hCG (test Negative Negative Very dilute urine code = 8552) specimens may c ause false negative results. Sugges t repeat in 48 ho urs with a first mo rning voided urine or request quantit ative serum beta HCG test. Method descript ion: The ICON 20 hCG Serum/Urine michael t employs a solid phase chromatographic immunoassay james hnology to selectively detect elevated levels of hCG in urine with a high degree of sensi tivity. POC U hCG Cont Valid (test code = 6710) Performing Lab [facility] (test code = of Toby HENDERSON And erson [address]) Clinical Lab, [address] [place] [address] 30; Water Treatment Plant Repairer: Guerline Olmstead MD; Waived Point of Care Testing - Luz Maria levi MD [facility] 07:26:33 Test Item Value Reference Range Interpretation Comments POC U hCG (test Negative Negative Very dilute urine code = 8552) specimens may c ause false negative results. Sugges t repeat in 48 ho urs with a first mo rning voided urine or request quantit ative serum beta HCG test. Method descript ion: The ICON 20 hCG Serum/Urine michael t employs a solid phase chromatographic immunoassay james hnology to selectively detect elevated levels of hCG in urine with a high degree of sensi tivity. POC U hCG Cont Valid (test code = 6710) Performing Lab [facility] (test code = of Toby Worrell 77954) Clinical Lab, [address] [place] [address]; Water Treatment Plant Repairer: Guerline Olmstead MD; Waived Point of Care Testing - Luz Maria levi MD [facility] 07:26:33 Test Item Value Reference Range Interpretation Comments POC U hCG (test Negative Negative Very dilute urine code = 8552) specimens may c ause false negative results. Sugges t repeat in 48 ho urs with a first mo rning voided urine or request quantit ative serum beta HCG test. Method descript ion: The ICON 20 hCG Serum/Urine michael t employs a solid phase chromatographic immunoassay james hnology to selectively detect elevated levels of hCG in urine with a high degree of sensi tivity. POC U hCG Cont Valid (test code = 6710) Performing Lab [facility] (test code = of Toby HENDERSON And soraya [address]) Clinical Lab, [address] [place] [address] 30; Water Treatment Plant Repairer: Guerline Olmstead MD; Waived Point of Care Testing - Luz Maria levi MD [facility] VDBV2401-15-30 07:26:33 Test Item Value Reference Range Interpretation Comments POC U hCG (test Negative Negative Very dilute urine code = 8552) specimens may c ause false negative results. Sugges t repeat in 48 ho urs with a first mo rning voided urine or request quantit ative serum beta HCG test. Method descript ion: The ICON 20 hCG Serum/Urine michael t employs a solid phase chromatographic immunoassay james hnology to selectively detect elevated levels of hCG in urine with a high degree of sensi tivity. POC U hCG Cont Valid (test code = 6710) Performing Lab [facility] (test code = of Toby HENDERSON And erson 52[address]) Clinical Lab, [address] [place] [address] 30; Water Treatment Plant Repairer: Guerline Olmstead MD; Waived Point of Care Testing - Luz Mraia levi MD [facility] 07:26:33 Test Item Value Reference Range Interpretation Comments POC U hCG (test Negative Negative Very dilute urine code = 8552) specimens may c ause false negative results. Sugges t repeat in 48 ho urs with a first mo rning voided urine or request quantit ative serum beta HCG test. Method descript ion: The ICON 20 hCG Serum/Urine michael t employs a solid phase chromatographic immunoassay james hnology to selectively detect elevated levels of hCG in urine with a high degree of sensi tivity. POC U hCG Cont Valid (test code = 6710) Performing Lab [facility] (test code = of Toby HENDERSON And soraya [address]) Clinical Lab, [address] [place], [place] [address], [place] [address] 30; Water Treatment Plant Repairer: Guerline Olmstead MD; Waived Point of Care Testing - Luz Maria levi [facility] 07:26[facility]33 Test Item Value Reference Range Interpretation Comments POC U hCG (test Negative Negative Very dilute urine code = 8552) specimens may c ause false negative results. Sugges t repeat in 48 ho urs with a first mo rning voided urine or request quantit ative serum beta HCG test. Method descript ion: The ICON 20 hCG Serum/Urine michael t employs a solid phase chromatographic immunoassay james hnology to selectively detect elevated levels of hCG in urine with a high degree of sensi tivity. POC U hCG Cont Valid (test code = 6710) Performing Lab [facility] (test code = of Toby HENDERSON And soraya [address]) Clinical Lab, [address] [place] [address] 30; Water Treatment Plant Repairer: Guerline Olmstead MD; Waived Point of Care Testing - Luz Maria levi MD [facility] 07:26:33 Test Item Value Reference Range Interpretation Comments POC U hCG (test Negative Negative Very dilute urine code = 8552) specimens may c ause false negative results. Sugges t repeat in 48 ho urs with a first mo rning voided urine or request quantit ative serum beta HCG test. Method descript ion: The ICON 20 hCG Serum/Urine michael t employs a solid phase chromatographic immunoassay james hnology to selectively detect elevated levels of hCG in urine with a high degree of sensi tivity. POC U hCG Cont Valid (test code = 6710) Performing Lab [facility] (test code = of Toby HEDNERSON And soraya [address]) Clinical Lab, [address] [place] [address] 30; Water Treatment Plant Repairer: Guerline Olmstead MD; Waived Point of Care Testing - Luz Maria levi MD [facility] [id number] 07:26:33 Test Item Value Reference Range Interpretation Comments POC U hCG (test Negative Negative Very dilute urine code = 8552) specimens may c ause false negative results. Sugges t repeat in 48 ho urs with a first mo rning voided urine or request quantit ative serum beta HCG test. Method descript ion: The ICON 20 hCG Serum/Urine michael t employs a solid phase chromatographic immunoassay james hnology to selectively detect elevated levels of hCG in urine with a high degree of sensi tivity. POC U hCG Cont Valid (test code = 6710) Performing Lab [facility] (test code = of Toby HENDERSON And erson [address]) Clinical Lab, [address] [place] [address] 30; Water Treatment Plant Repairer: Guerline Olmstead MD; Waived Point of Care Testing - Luz Maria levi [facility] [id number] 06:57:19 Test Item Value Reference Range Interpretation Comments UA Color (test code = 82508-4) Yellow Straw-Yellow UA Appear (test code = 05040-3) Hazy Clear A UA Glucose (test code = 5792-7) 100 mg/dL NEG A UA Bili (test code = 5770-3) NEG NEG UA Ketones (test code = 5797-6) 80 mg/dL NEG A UA Spec Grav (test code = 5810-7) 1.024 1.003-1.035 UA Blood (test code = 5794-3) Moderate NEG A UA pH (test code = 5803-2) 6.0 5.0-9.0 UA Protein (test code = 5804-0) 300 mg/dL NEG A UA Urobilinogen (test code = 1+ NEG A 5818-0) UA Nitrite (test code = 5802-4) POS NEG A UA Leuk Est (test code = 5799-2) Large NEG A Lab Interpretation (test code = Abnormal 25140-4) [facility] [id number] 06:57:19 Test Item Value Reference Range Interpretation Comments UA Color (test code = 51931-1) Yellow Straw-Yellow UA Appear (test code = 47493-5) Hazy Clear A UA Glucose (test code = 5792-7) 100 mg/dL NEG A UA Bili (test code = 5770-3) NEG NEG UA Ketones (test code = 5797-6) 80 mg/dL NEG A UA Spec Grav (test code = 5810-7) 1.024 1.003-1.035 UA Blood (test code = 5794-3) Moderate NEG A UA pH (test code = 5803-2) 6.0 5.0-9.0 UA Protein (test code = 5804-0) 300 mg/dL NEG A UA Urobilinogen (test code = 1+ NEG A 5818-0) UA Nitrite (test code = 5802-4) POS NEG A UA Leuk Est (test code = 5799-2) Large NEG A Lab Interpretation (test code = Abnormal 65125-4) [facility] [id number] 06:57:19 Test Item Value Reference Range Interpretation Comments UA Color (test code = 14780-6) Yellow Straw-Yellow UA Appear (test code = 88975-8) Hazy Clear A UA Glucose (test code = 5792-7) 100 mg/dL NEG A UA Bili (test code = 5770-3) NEG NEG UA Ketones (test code = 5797-6) 80 mg/dL NEG A UA Spec Grav (test code = 5810-7) 1.024 1.003-1.035 UA Blood (test code = 5794-3) Moderate NEG A UA pH (test code = 5803-2) 6.0 5.0-9.0 UA Protein (test code = 5804-0) 300 mg/dL NEG A UA Urobilinogen (test code = 1+ NEG A 5818-0) UA Nitrite (test code = 5802-4) POS NEG A UA Leuk Est (test code = 5799-2) Large NEG A Lab Interpretation (test code = Abnormal 07140-1) [facility] [id number] 06:57:19 Test Item Value Reference Range Interpretation Comments UA Color (test code = 51033-6) Yellow Straw-Yellow UA Appear (test code = 38939-1) Hazy Clear A UA Glucose (test code = 5792-7) 100 mg/dL NEG A UA Bili (test code = 5770-3) NEG NEG UA Ketones (test code = 5797-6) 80 mg/dL NEG A UA Spec Grav (test code = 5810-7) 1.024 1.003-1.035 UA Blood (test code = 5794-3) Moderate NEG A UA pH (test code = 5803-2) 6.0 5.0-9.0 UA Protein (test code = 5804-0) 300 mg/dL NEG A UA Urobilinogen (test code = 1+ NEG A 5818-0) UA Nitrite (test code = 5802-4) POS NEG A UA Leuk Est (test code = 5799-2) Large NEG A Lab Interpretation (test code = Abnormal 32142-3) [facility] [place] [id number] 06:57:19 Test Item Value Reference Range Interpretation Comments UA Color (test code = 91143-7) Yellow Straw-Yellow UA Appear (test code = 77223-8) Hazy Clear A UA Glucose (test code = 5792-7) 100 mg/dL NEG A UA Bili (test code = 5770-3) NEG NEG UA Ketones (test code = 5797-6) 80 mg/dL NEG A UA Spec Grav (test code = 5810-7) 1.024 1.003-1.035 UA Blood (test code = 5794-3) Moderate NEG A UA pH (test code = 5803-2) 6.0 5.0-9.0 UA Protein (test code = 5804-0) 300 mg/dL NEG A UA Urobilinogen (test code = 1+ NEG A 5818-0) UA Nitrite (test code = 5802-4) POS NEG A UA Leuk Est (test code = 5799-2) Large NEG A Lab Interpretation (test code = Abnormal 67328-5) [facility] [id number] 06:57:19 Test Item Value Reference Range Interpretation Comments UA Color (test code = 42369-0) Yellow Straw-Yellow UA Appear (test code = 32026-5) Hazy Clear A UA Glucose (test code = 5792-7) 100 mg/dL NEG A UA Bili (test code = 5770-3) NEG NEG UA Ketones (test code = 5797-6) 80 mg/dL NEG A UA Spec Grav (test code = 5810-7) 1.024 1.003-1.035 UA Blood (test code = 5794-3) Moderate NEG A UA pH (test code = 5803-2) 6.0 5.0-9.0 UA Protein (test code = 5804-0) 300 mg/dL NEG A UA Urobilinogen (test code = 1+ NEG A 5818-0) UA Nitrite (test code = 5802-4) POS NEG A UA Leuk Est (test code = 5799-2) Large NEG A Lab Interpretation (test code = Abnormal 84277-0) [facility] [id number] 06:57:19 Test Item Value Reference Range Interpretation Comments UA Color (test code = 11724-0) Yellow Straw-Yellow UA Appear (test code = 79697-1) Hazy Clear A UA Glucose (test code = 5792-7) 100 mg/dL NEG A UA Bili (test code = 5770-3) NEG NEG UA Ketones (test code = 5797-6) 80 mg/dL NEG A UA Spec Grav (test code = 5810-7) 1.024 1.003-1.035 UA Blood (test code = 5794-3) Moderate NEG A UA pH (test code = 5803-2) 6.0 5.0-9.0 UA Protein (test code = 5804-0) 300 mg/dL NEG A UA Urobilinogen (test code = 1+ NEG A 5818-0) UA Nitrite (test code = 5802-4) POS NEG A UA Leuk Est (test code = 5799-2) Large NEG A Lab Interpretation (test code = Abnormal 61794-2) [facility] [id number] 06:57:19 Test Item Value Reference Range Interpretation Comments UA Color (test code = 46650-8) Yellow Straw-Yellow UA Appear (test code = 33665-1) Hazy Clear A UA Glucose (test code = 5792-7) 100 mg/dL NEG A UA Bili (test code = 5770-3) NEG NEG UA Ketones (test code = 5797-6) 80 mg/dL NEG A UA Spec Grav (test code = 5810-7) 1.024 1.003-1.035 UA Blood (test code = 5794-3) Moderate NEG A UA pH (test code = 5803-2) 6.0 5.0-9.0 UA Protein (test code = 5804-0) 300 mg/dL NEG A UA Urobilinogen (test code = 1+ NEG A 5818-0) UA Nitrite (test code = 5802-4) POS NEG A UA Leuk Est (test code = 5799-2) Large NEG A Lab Interpretation (test code = Abnormal 80356-7) [facility] [id number] 06:57:19 Test Item Value Reference Range Interpretation Comments UA Color (test code = 05794-0) Yellow Straw-Yellow UA Appear (test code = 86284-3) Hazy Clear A UA Glucose (test code = 5792-7) 100 mg/dL NEG A UA Bili (test code = 5770-3) NEG NEG UA Ketones (test code = 5797-6) 80 mg/dL NEG A UA Spec Grav (test code = 5810-7) 1.024 1.003-1.035 UA Blood (test code = 5794-3) Moderate NEG A UA pH (test code = 5803-2) 6.0 5.0-9.0 UA Protein (test code = 5804-0) 300 mg/dL NEG A UA Urobilinogen (test code = 1+ NEG A 5818-0) UA Nitrite (test code = 5802-4) POS NEG A UA Leuk Est (test code = 5799-2) Large NEG A Lab Interpretation (test code = Abnormal 46987-9) [facility] [place] [facility], Nasopharyngeal [id number] 06:28:01 Test Item Value Reference Range Interpretation Comments RMP Source (test code = Not Applicable 8653) Adenovirus (test code = Not Detected Not Detected 20919-6) Coronavirus 229E (test Not Detected Not Detected code = 08014-1) Coronavirus HKU1 (test Not Detected Not Detected code = 34883-8) Coronavirus NL63 (test Not Detected Not Detected code = 18567-0) Coronavirus OC43 (test Not Detected Not Detected code = 27413-5) COVID19 (SARS-CoV-2) Not Detected Not Detected (test code = 20492-6) Human Metapneumovirus Not Detected Not Detected (test code = 53437-7) Human Not Detected Not Detected Rhinovirus/Enterovirus (test code = 28073-9) Influenza A (test code Not Detected Not Detected = 96980-1) Influenza A H1 (test Not Detected Not Detected code = 25142-4) Influenza A H1 2009 Not Detected Not Detected (test code = 03071-0) Influenza A H3 (test Not Detected Not Detected code = 07238-0) Influenza B (test code Not Detected Not Detected = 22413-1) Parainfluenza 1 (test Not Detected Not Detected code = 10504-9) Parainfluenza 2 (test Not Detected Not Detected code = 31468-0) Parainfluenza 3 (test Not Detected Not Detected code = 07510-0) Parainfluenza 4 (test Not Detected Not Detected code = 37849-9) Respiratory Syncytial Not Detected Not Detected Virus (test code = 63256-3) Bordetella Not Detected Not Detected Parapertussis (test code = 09798-0) Bordetella pertussis Not Detected Not Detected (test code = 41903-6) Chlamydiophila Not Detected Not Detected pneumoniae (test code = 77482-4) Mycoplasma pneumoniae Not Detected Not Detected (test code = 93433-4) CHANDRAKANT (test code = CHANDRAKANT) Has patient had a positive for COVID-19 result in the last 3 months?->No The BioFire RP2.1 is a real-time, nested multiplexed polymerase chain reaction test designed to simultaneously identify nucleic acids from 22 different viruses and bacteria associated with respiratory tract infection, including SARS-CoV-2, from a single nasopharyngeal swab ([employer]) specimen obtained from individuals suspected of respiratory tract infections, including COVID-19. Results must be interpreted within the context of all relevant clinical and laboratory findings and should not form the sole basis for a diagnosis or treatment decision. Positive results do not rule out coninfection with other organisms. Negative results in the setting of a respiratory illness may be due to infection with pathogens that are not detected by this panel, or a lower respiratory tract infection that may not be detected by an [employer] specimen. Internal controls are used to monitor all stages of the test process and assess for possible amplification inhibitors. If inhibition is detected, testing is repeated and if inhibition is confirmed the specimen is resulted as "Invalid". When an "Invalid" result occurs, it is recommended to wait 3 days before submitting a new specimen for testing if clinically indicated. This assay has been approved by the FDA for use in laboratories that have been CLIA-certified to perform moderate-complexity and high-complexity tests. The [facility], CLIA Accreditation #[id number] and CAP Accreditation #[id number], verified the performance characteristics of this assay. [facility] performs the assay using the [employer] Lab System. [facility] Nasopharyngeal [id number] 06:28:01 Test Item Value Reference Range Interpretation Comments RMP Source (test code = Not Applicable 8653) Adenovirus (test code = Not Detected Not Detected 77677-1) Coronavirus 229E (test Not Detected Not Detected code = 35276-2) Coronavirus HKU1 (test Not Detected Not Detected code = 87131-6) Coronavirus NL63 (test Not Detected Not Detected code = 82839-1) Coronavirus OC43 (test Not Detected Not Detected code = 42146-4) COVID19 (SARS-CoV-2) Not Detected Not Detected (test code = 11656-9) Human Metapneumovirus Not Detected Not Detected (test code = 27350-6) Human Not Detected Not Detected Rhinovirus/Enterovirus (test code = 71702-9) Influenza A (test code Not Detected Not Detected = 81269-8) Influenza A H1 (test Not Detected Not Detected code = 32582-6) Influenza A H1 2009 Not Detected Not Detected (test code = 39246-9) Influenza A H3 (test Not Detected Not Detected code = 37877-3) Influenza B (test code Not Detected Not Detected = 27659-3) Parainfluenza 1 (test Not Detected Not Detected code = 39098-8) Parainfluenza 2 (test Not Detected Not Detected code = 71767-8) Parainfluenza 3 (test Not Detected Not Detected code = 08519-0) Parainfluenza 4 (test Not Detected Not Detected code = 05483-4) Respiratory Syncytial Not Detected Not Detected Virus (test code = 93809-3) Bordetella Not Detected Not Detected Parapertussis (test code = 03068-0) Bordetella pertussis Not Detected Not Detected (test code = 52255-5) Chlamydiophila Not Detected Not Detected pneumoniae (test code = 98393-2) Mycoplasma pneumoniae Not Detected Not Detected (test code = 39067-8) CHANDRAKANT (test code = CHANDRAKANT) Has patient had a positive for COVID-19 result in the last 3 months?->No The BioFire RP2.1 is a real-time, nested multiplexed polymerase chain reaction test designed to simultaneously identify nucleic acids from 22 different viruses and bacteria associated with respiratory tract infection, including SARS-CoV-2, from a single nasopharyngeal swab ([employer]) specimen obtained from individuals suspected of respiratory tract infections, including COVID-19. Results must be interpreted within the context of all relevant clinical and laboratory findings and should not form the sole basis for a diagnosis or treatment decision. Positive results do not rule out coninfection with other organisms. Negative results in the setting of a respiratory illness may be due to infection with pathogens that are not detected by this panel, or a lower respiratory tract infection that may not be detected by an [employer] specimen. Internal controls are used to monitor all stages of the test process and assess for possible amplification inhibitors. If inhibition is detected, testing is repeated and if inhibition is confirmed the specimen is resulted as "Invalid". When an "Invalid" result occurs, it is recommended to wait 3 days before submitting a new specimen for testing if clinically indicated. This assay has been approved by the FDA for use in laboratories that have been CLIA-certified to perform moderate-complexity and high-complexity tests. [facility], CLIA Accreditation #[id number] and CAP Accreditation #[id number], verified the performance characteristics of this assay. [facility] performs the assay using the [employer] Lab System. [facility] Nasopharyngeal [id number] 06:28:01 Test Item Value Reference Range Interpretation Comments RMP Source (test code = Not Applicable 8653) Adenovirus (test code = Not Detected Not Detected 51464-2) Coronavirus 229E (test Not Detected Not Detected code = 50870-9) Coronavirus HKU1 (test Not Detected Not Detected code = 25741-5) Coronavirus NL63 (test Not Detected Not Detected code = 17404-3) Coronavirus OC43 (test Not Detected Not Detected code = 54229-5) COVID19 (SARS-CoV-2) Not Detected Not Detected (test code = 07038-8) Human Metapneumovirus Not Detected Not Detected (test code = 44641-4) Human Not Detected Not Detected Rhinovirus/Enterovirus (test code = 99605-5) Influenza A (test code Not Detected Not Detected = 41362-9) Influenza A H1 (test Not Detected Not Detected code = 17891-5) Influenza A H1 2009 Not Detected Not Detected (test code = 58345-7) Influenza A H3 (test Not Detected Not Detected code = 97836-5) Influenza B (test code Not Detected Not Detected = 87576-2) Parainfluenza 1 (test Not Detected Not Detected code = 71934-6) Parainfluenza 2 (test Not Detected Not Detected code = 45411-8) Parainfluenza 3 (test Not Detected Not Detected code = 11244-1) Parainfluenza 4 (test Not Detected Not Detected code = 03743-4) Respiratory Syncytial Not Detected Not Detected Virus (test code = 28874-4) Bordetella Not Detected Not Detected Parapertussis (test code = 57704-7) Bordetella pertussis Not Detected Not Detected (test code = 63319-1) Chlamydiophila Not Detected Not Detected pneumoniae (test code = 58478-2) Mycoplasma pneumoniae Not Detected Not Detected (test code = 48272-2) CHANDRAKANT (test code = CHANDRAKANT) Has patient had a positive for COVID-19 result in the last 3 months?->No The BioFire RP2.1 is a real-time, nested multiplexed polymerase chain reaction test designed to simultaneously identify nucleic acids from 22 different viruses and bacteria associated with respiratory tract infection, including SARS-CoV-2, from a single nasopharyngeal swab ([employer]) specimen obtained from individuals suspected of respiratory tract infections, including COVID-19. Results must be interpreted within the context of all relevant clinical and laboratory findings and should not form the sole basis for a diagnosis or treatment decision. Positive results do not rule out coninfection with other organisms. Negative results in the setting of a respiratory illness may be due to infection with pathogens that are not detected by this panel, or a lower respiratory tract infection that may not be detected by an [employer] specimen. Internal controls are used to monitor all stages of the test process and assess for possible amplification inhibitors. If inhibition is detected, testing is repeated and if inhibition is confirmed the specimen is resulted as "Invalid". When an "Invalid" result occurs, it is recommended to wait 3 days before submitting a new specimen for testing if clinically indicated. This assay has been approved by the FDA for use in laboratories that have been CLIA-certified to perform moderate-complexity and high-complexity tests. [facility], CLIA Accreditation #[id number] and CAP Accreditation #[id number], verified the performance characteristics of this assay. [facility] performs the assay using the [employer] Lab System. [facility] Nasopharyngeal [id number] 06:28:01 Test Item Value Reference Range Interpretation Comments RMP Source (test code = Not Applicable 8653) Adenovirus (test code = Not Detected Not Detected 98290-0) Coronavirus 229E (test Not Detected Not Detected code = 17811-5) Coronavirus HKU1 (test Not Detected Not Detected code = 31531-6) Coronavirus NL63 (test Not Detected Not Detected code = 25825-6) Coronavirus OC43 (test Not Detected Not Detected code = 05123-9) COVID19 (SARS-CoV-2) Not Detected Not Detected (test code = 95512-8) Human Metapneumovirus Not Detected Not Detected (test code = 29661-8) Human Not Detected Not Detected Rhinovirus/Enterovirus (test code = 30173-0) Influenza A (test code Not Detected Not Detected = 28466-0) Influenza A H1 (test Not Detected Not Detected code = 04127-5) Influenza A H1 2009 Not Detected Not Detected (test code = 88807-6) Influenza A H3 (test Not Detected Not Detected code = 57067-9) Influenza B (test code Not Detected Not Detected = 17383-2) Parainfluenza 1 (test Not Detected Not Detected code = 66578-4) Parainfluenza 2 (test Not Detected Not Detected code = 86381-4) Parainfluenza 3 (test Not Detected Not Detected code = 79785-6) Parainfluenza 4 (test Not Detected Not Detected code = 48527-7) Respiratory Syncytial Not Detected Not Detected Virus (test code = 29216-3) Bordetella Not Detected Not Detected Parapertussis (test code = 29481-0) Bordetella pertussis Not Detected Not Detected (test code = 87321-1) Chlamydiophila Not Detected Not Detected pneumoniae (test code = 30583-8) Mycoplasma pneumoniae Not Detected Not Detected (test code = 25767-0) CHANDRAKANT (test code = CHANDRAKANT) Has patient had a positive for COVID-19 result in the last 3 months?->No The BioFire RP2.1 is a real-time, nested multiplexed polymerase chain reaction test designed to simultaneously identify nucleic acids from 22 different viruses and bacteria associated with respiratory tract infection, including SARS-CoV-2, from a single nasopharyngeal swab ([employer]) specimen obtained from individuals suspected of respiratory tract infections, including COVID-19. Results must be interpreted within the context of all relevant clinical and laboratory findings and should not form the sole basis for a diagnosis or treatment decision. Positive results do not rule out coninfection with other organisms. Negative results in the setting of a respiratory illness may be due to infection with pathogens that are not detected by this panel, or a lower respiratory tract infection that may not be detected by an [employer] specimen. Internal controls are used to monitor all stages of the test process and assess for possible amplification inhibitors. If inhibition is detected, testing is repeated and if inhibition is confirmed the specimen is resulted as "Invalid". When an "Invalid" result occurs, it is recommended to wait 3 days before submitting a new specimen for testing if clinically indicated. This assay has been approved by the FDA for use in laboratories that have been CLIA-certified to perform moderate-complexity and high-complexity tests. The [facility], CLIA Accreditation #[id number] and CAP Accreditation #[id number], verified the performance characteristics of this assay. [facility] performs the assay using the [employer] Lab System. [facility], Nasopharyngeal [id number] 06:28:01 Test Item Value Reference Range Interpretation Comments RMP Source (test code = Not Applicable 8653) Adenovirus (test code = Not Detected Not Detected 48576-6) Coronavirus 229E (test Not Detected Not Detected code = 74848-1) Coronavirus HKU1 (test Not Detected Not Detected code = 74438-3) Coronavirus NL63 (test Not Detected Not Detected code = 70373-9) Coronavirus OC43 (test Not Detected Not Detected code = 56190-7) COVID19 (SARS-CoV-2) Not Detected Not Detected (test code = 77154-6) Human Metapneumovirus Not Detected Not Detected (test code = 48117-9) Human Not Detected Not Detected Rhinovirus/Enterovirus (test code = 29558-4) Influenza A (test code Not Detected Not Detected = 96312-6) Influenza A H1 (test Not Detected Not Detected code = 29981-2) Influenza A H1 2009 Not Detected Not Detected (test code = 59782-6) Influenza A H3 (test Not Detected Not Detected code = 19340-8) Influenza B (test code Not Detected Not Detected = 88975-2) Parainfluenza 1 (test Not Detected Not Detected code = 05010-9) Parainfluenza 2 (test Not Detected Not Detected code = 28551-9) Parainfluenza 3 (test Not Detected Not Detected code = 83387-6) Parainfluenza 4 (test Not Detected Not Detected code = 28705-4) Respiratory Syncytial Not Detected Not Detected Virus (test code = 68437-7) Bordetella Not Detected Not Detected Parapertussis (test code = 45653-3) Bordetella pertussis Not Detected Not Detected (test code = 05789-7) Chlamydiophila Not Detected Not Detected pneumoniae (test code = 05506-5) Mycoplasma pneumoniae Not Detected Not Detected (test code = 09296-4) CHANDRAKANT (test code = CHANDRAKANT) Has patient had a positive for COVID-19 result in the last 3 months?->No The [employer]Fire RP2.1 is a real-time, nested multiplexed polymerase chain reaction test designed to simultaneously identify nucleic acids from 22 different viruses and bacteria associated with respiratory tract infection, including SARS-CoV-2, from a single nasopharyngeal swab (MOT[employer]) specimen obtained from individuals suspected of respiratory tract infections, including COVID-19. Results must be interpreted within the context of all relevant clinical and laboratory findings and should not form the sole basis for a diagnosis or treatment decision. Positive results do not rule out coninfection with other organisms. Negative results in the setting of a respiratory illness may be due to infection with pathogens that are not detected by this panel, or a lower respiratory tract infection that may not be detected by an [employer] specimen. Internal controls are used to monitor all stages of the test process and assess for possible amplification inhibitors. If inhibition is detected, testing is repeated and if inhibition is confirmed the specimen is resulted as "Invalid". When an "Invalid" result occurs, it is recommended to wait 3 days before submitting a new specimen for testing if clinically indicated. This assay has been approved by the FDA for use in laboratories that have been CLIA-certified to perform moderate-complexity and high-complexity tests. The [facility] at [facility], CLIA Accreditation #[id number] and CAP Accreditation #[id number], verified the performance characteristics of this assay. [facility] performs the assay using the [employer] System. [facility], [facility] [id number] 06:28:01 Test Item Value Reference Range Interpretation Comments RMP Source (test code = Not Applicable 8653) Adenovirus (test code = Not Detected Not Detected 74747-0) Coronavirus 229E (test Not Detected Not Detected code = 22849-5) Coronavirus HKU1 (test Not Detected Not Detected code = 30013-4) Coronavirus NL63 (test Not Detected Not Detected code = 28105-2) Coronavirus OC43 (test Not Detected Not Detected code = 53670-4) COVID19 (SARS-CoV-2) Not Detected Not Detected (test code = 46249-4) Human Metapneumovirus Not Detected Not Detected (test code = 14377-2) Human Not Detected Not Detected Rhinovirus/Enterovirus (test code = 78739-1) Influenza A (test code Not Detected Not Detected = 30184-4) Influenza A H1 (test Not Detected Not Detected code = 14794-1) Influenza A H1 2009 Not Detected Not Detected (test code = 11512-4) Influenza A H3 (test Not Detected Not Detected code = 88306-2) Influenza B (test code Not Detected Not Detected = 87055-9) Parainfluenza 1 (test Not Detected Not Detected code = 49795-3) Parainfluenza 2 (test Not Detected Not Detected code = 26055-8) Parainfluenza 3 (test Not Detected Not Detected code = 51664-6) Parainfluenza 4 (test Not Detected Not Detected code = 10841-0) Respiratory Syncytial Not Detected Not Detected Virus (test code = 96005-4) Bordetella Not Detected Not Detected Parapertussis (test code = 67435-6) Bordetella pertussis Not Detected Not Detected (test code = 67736-5) Chlamydiophila Not Detected Not Detected pneumoniae (test code = 83395-4) Mycoplasma pneumoniae Not Detected Not Detected (test code = 28288-4) CHANDRAKANT (test code = CHANDRAKANT) Has patient had a positive for COVID-19 result in the last 3 months?->No The [employer]Fire RP2.1 is a real-time, nested multiplexed polymerase chain reaction test designed to simultaneously identify nucleic acids from 22 different viruses and bacteria associated with respiratory tract infection, including SARS-CoV-2, from a single nasopharyngeal swab ([employer]) specimen obtained from individuals suspected of respiratory tract infections, including COVID-19. Results must be interpreted within the context of all relevant clinical and laboratory findings and should not form the sole basis for a diagnosis or treatment decision. Positive results do not rule out coninfection with other organisms. Negative results in the setting of a respiratory illness may be due to infection with pathogens that are not detected by this panel, or a lower respiratory tract infection that may not be detected by an [employer] specimen. Internal controls are used to monitor all stages of the test process and assess for possible amplification inhibitors. If inhibition is detected, testing is repeated and if inhibition is confirmed the specimen is resulted as "Invalid". When an "Invalid" result occurs, it is recommended to wait 3 days before submitting a new specimen for testing if clinically indicated. This assay has been approved by the FDA for use in laboratories that have been CLIA-certified to perform moderate-complexity and high-complexity tests. The [facility] at [facility], CLIA Accreditation #[id number] and CAP Accreditation #[id number], verified the performance characteristics of this assay. [facility] performs the assay using the [employer] Lab System. [facility], Nasopharyngeal [id number] 06:28:01 Test Item Value Reference Range Interpretation Comments RMP Source (test code = Not Applicable 8653) Adenovirus (test code = Not Detected Not Detected 24112-5) Coronavirus 229E (test Not Detected Not Detected code = 62772-3) Coronavirus HKU1 (test Not Detected Not Detected code = 25917-4) Coronavirus NL63 (test Not Detected Not Detected code = 56548-5) Coronavirus OC43 (test Not Detected Not Detected code = 90243-6) COVID19 (SARS-CoV-2) Not Detected Not Detected (test code = 11970-1) Human Metapneumovirus Not Detected Not Detected (test code = 50289-5) Human Not Detected Not Detected Rhinovirus/Enterovirus (test code = 41901-8) Influenza A (test code Not Detected Not Detected = 77284-3) Influenza A H1 (test Not Detected Not Detected code = 36816-6) Influenza A H1 2009 Not Detected Not Detected (test code = 29802-1) Influenza A H3 (test Not Detected Not Detected code = 07781-7) Influenza B (test code Not Detected Not Detected = 74859-5) Parainfluenza 1 (test Not Detected Not Detected code = 53561-9) Parainfluenza 2 (test Not Detected Not Detected code = 76615-8) Parainfluenza 3 (test Not Detected Not Detected code = 19886-6) Parainfluenza 4 (test Not Detected Not Detected code = 35814-4) Respiratory Syncytial Not Detected Not Detected Virus (test code = 56256-5) Bordetella Not Detected Not Detected Parapertussis (test code = 34502-9) Bordetella pertussis Not Detected Not Detected (test code = 69549-4) Chlamydiophila Not Detected Not Detected pneumoniae (test code = 26543-8) Mycoplasma pneumoniae Not Detected Not Detected (test code = 79935-3) CHANDRAKANT (test code = CHANDRAKANT) Has patient had a positive for COVID-19 result in the last 3 months?->No The [employer]Fire RP2.1 is a real-time, nested multiplexed polymerase chain reaction test designed to simultaneously identify nucleic acids from 22 different viruses and bacteria associated with respiratory tract infection, including SARS-CoV-2, from a single nasopharyngeal swab ([employer]) specimen obtained from individuals suspected of respiratory tract infections, including COVID-19. Results must be interpreted within the context of all relevant clinical and laboratory findings and should not form the sole basis for a diagnosis or treatment decision. Positive results do not rule out coninfection with other organisms. Negative results in the setting of a respiratory illness may be due to infection with pathogens that are not detected by this panel, or a lower respiratory tract infection that may not be detected by an [employer] specimen. Internal controls are used to monitor all stages of the test process and assess for possible amplification inhibitors. If inhibition is detected, testing is repeated and if inhibition is confirmed the specimen is resulted as "Invalid". When an "Invalid" result occurs, it is recommended to wait 3 days before submitting a new specimen for testing if clinically indicated. This assay has been approved by the FDA for use in laboratories that have been CLIA-certified to perform moderate-complexity and high-complexity tests. The [facility], CLIA Accreditation #[id number] and CAP Accreditation #[id number], verified the performance characteristics of this assay. [facility] performs the assay using the [employer] Lab System. [facility] Nasopharyngeal [id number] 06:28:01 Test Item Value Reference Range Interpretation Comments RMP Source (test code = Not Applicable 8653) Adenovirus (test code = Not Detected Not Detected 40306-6) Coronavirus 229E (test Not Detected Not Detected code = 46481-6) Coronavirus HKU1 (test Not Detected Not Detected code = 55243-7) Coronavirus NL63 (test Not Detected Not Detected code = 09992-0) Coronavirus OC43 (test Not Detected Not Detected code = 13659-8) COVID19 (SARS-CoV-2) Not Detected Not Detected (test code = 80829-5) Human Metapneumovirus Not Detected Not Detected (test code = 76145-3) Human Not Detected Not Detected Rhinovirus/Enterovirus (test code = 83689-2) Influenza A (test code Not Detected Not Detected = 44697-7) Influenza A H1 (test Not Detected Not Detected code = 50096-6) Influenza A H1 2009 Not Detected Not Detected (test code = 37051-6) Influenza A H3 (test Not Detected Not Detected code = 10513-5) Influenza B (test code Not Detected Not Detected = 98231-0) Parainfluenza 1 (test Not Detected Not Detected code = 50661-5) Parainfluenza 2 (test Not Detected Not Detected code = 93551-4) Parainfluenza 3 (test Not Detected Not Detected code = 05504-3) Parainfluenza 4 (test Not Detected Not Detected code = 78296-4) Respiratory Syncytial Not Detected Not Detected Virus (test code = 35822-0) Bordetella Not Detected Not Detected Parapertussis (test code = 95261-1) Bordetella pertussis Not Detected Not Detected (test code = 97478-0) Chlamydiophila Not Detected Not Detected pneumoniae (test code = 71621-9) Mycoplasma pneumoniae Not Detected Not Detected (test code = 44655-0) CHANDRAKANT (test code = CHANDRAKANT) Has patient had a positive for COVID-19 result in the last 3 months?->No The [employer] RP2.1 is a real-time, nested multiplexed polymerase chain reaction test designed to simultaneously identify nucleic acids from 22 different viruses and bacteria associated with respiratory tract infection, including SARS-CoV-2, from a single nasopharyngeal swab ([employer]) specimen obtained from individuals suspected of respiratory tract infections, including COVID-19. Results must be interpreted within the context of all relevant clinical and laboratory findings and should not form the sole basis for a diagnosis or treatment decision. Positive results do not rule out coninfection with other organisms. Negative results in the setting of a respiratory illness may be due to infection with pathogens that are not detected by this panel, or a lower respiratory tract infection that may not be detected by an [employer] specimen. Internal controls are used to monitor all stages of the test process and assess for possible amplification inhibitors. If inhibition is detected, testing is repeated and if inhibition is confirmed the specimen is resulted as "Invalid". When an "Invalid" result occurs, it is recommended to wait 3 days before submitting a new specimen for testing if clinically indicated. This assay has been approved by the FDA for use in laboratories that have been CLIA-certified to perform moderate-complexity and high-complexity tests. The [facility], CLIA Accreditation #[id number] and CAP Accreditation #[id number], verified the performance characteristics of this assay. [facility] performs the assay using the [employer] Lab System. [facility] Nasopharyngeal [id number] 06:28:01 Test Item Value Reference Range Interpretation Comments RMP Source (test code = Not Applicable 8653) Adenovirus (test code = Not Detected Not Detected 16197-7) Coronavirus 229E (test Not Detected Not Detected code = 50093-9) Coronavirus HKU1 (test Not Detected Not Detected code = 33788-3) Coronavirus NL63 (test Not Detected Not Detected code = 77970-0) Coronavirus OC43 (test Not Detected Not Detected code = 99829-3) COVID19 (SARS-CoV-2) Not Detected Not Detected (test code = 11873-3) Human Metapneumovirus Not Detected Not Detected (test code = 48168-3) Human Not Detected Not Detected Rhinovirus/Enterovirus (test code = 52131-8) Influenza A (test code Not Detected Not Detected = 83038-2) Influenza A H1 (test Not Detected Not Detected code = 07802-6) Influenza A H1 2009 Not Detected Not Detected (test code = 90703-8) Influenza A H3 (test Not Detected Not Detected code = 52538-6) Influenza B (test code Not Detected Not Detected = 75440-5) Parainfluenza 1 (test Not Detected Not Detected code = 25507-9) Parainfluenza 2 (test Not Detected Not Detected code = 55512-4) Parainfluenza 3 (test Not Detected Not Detected code = 09654-0) Parainfluenza 4 (test Not Detected Not Detected code = 39301-2) Respiratory Syncytial Not Detected Not Detected Virus (test code = 78910-3) Bordetella Not Detected Not Detected Parapertussis (test code = 29365-7) Bordetella pertussis Not Detected Not Detected (test code = 84071-9) Chlamydiophila Not Detected Not Detected pneumoniae (test code = 20064-8) Mycoplasma pneumoniae Not Detected Not Detected (test code = 63624-7) CHANDRAKANT (test code = CHANDRAKANT) Has patient had a positive for COVID-19 result in the last 3 months?->No The [employer] RP2.1 is a real-time, nested multiplexed polymerase chain reaction test designed to simultaneously identify nucleic acids from 22 different viruses and bacteria associated with respiratory tract infection, including SARS-CoV-2, from a single nasopharyngeal swab ([employer]) specimen obtained from individuals suspected of respiratory tract infections, including COVID-19. Results must be interpreted within the context of all relevant clinical and laboratory findings and should not form the sole basis for a diagnosis or treatment decision. Positive results do not rule out coninfection with other organisms. Negative results in the setting of a respiratory illness may be due to infection with pathogens that are not detected by this panel, or a lower respiratory tract infection that may not be detected by an [employer] specimen. Internal controls are used to monitor all stages of the test process and assess for possible amplification inhibitors. If inhibition is detected, testing is repeated and if inhibition is confirmed the specimen is resulted as "Invalid". When an "Invalid" result occurs, it is recommended to wait 3 days before submitting a new specimen for testing if clinically indicated. This assay has been approved by the FDA for use in laboratories that have been CLIA-certified to perform moderate-complexity and high-complexity tests. The [facility], CLIA Accreditation #[id number] and CAP Accreditation #[id number], verified the performance characteristics of this assay. [facility] performs the assay using the [employer] Lab System. [facility] Test Item Value Reference Range Interpretation Comments LDH (test code = 288 U/L 135-214 H Results gre ater than 97869-3) 1651 U/L may no t be reliable due to matrix effect w ith extended diluti on as it exceeds the fire extinguisher repairer inspector's recommended sweeney it. Caution should be exercised when interpreting limon ch values and done in conjunction [facility] clinical contex t. Lab Interpretation (test Abnormal code = 51385-1) [facility]:46[facility] Test Item Value Reference Range Interpretation Comments LDH (test code = 288 U/L 135-214 H Results gre ater than 78496-0) 1651 U/L may no t be reliable due to matrix effect w ith extended diluti on as it exceeds the fire extinguisher repairer inspector's recommended sweeney it. Caution should be exercised when interpreting limon ch values and done in conjunction [facility] clinical contex t. Lab Interpretation (test Abnormal code = 76327-3) [facility] 05:46[facility]40 Test Item Value Reference Range Interpretation Comments LDH (test code = 288 U/L 135-214 H Results gre ater than 39672-0) 1651 U/L may no t be reliable due to matrix effect w ith extended diluti on as it exceeds the fire extinguisher repairer inspector's recommended sweeney it. Caution should be exercised when interpreting limon ch values and done in conjunction [facility] clinical [employer] t. Lab Interpretation (test Abnormal code = 51673-8) [facility] 05:46[facility] Test Item Value Reference Range Interpretation Comments LDH (test code = 288 U/L 135-214 H Results gre ater than 29643-4) 1651 U/L may no t be reliable due to matrix effect w ith extended diluti on as it exceeds the fire extinguisher repairer inspector's recommended sweeney it. Caution should be exercised when interpreting limon ch values and done in conjunction [facility] clinical contex t. Lab Interpretation (test Abnormal code = 03477-7) [facility] 05:46:40 Test Item Value Reference Range Interpretation Comments LDH (test code = 288 U/L 135-214 H Results gre ater than 40656-8) 1651 U/L may no t be reliable due to matrix effect w ith extended diluti on as it exceeds the fire extinguisher repairer inspector's recommended sweeney it. Caution should be exercised when interpreting limon ch values and done in conjunction [facility] clinical contex t. Lab Interpretation (test Abnormal code = 25418-7) [facility]:46:[facility] Test Item Value Reference Range Interpretation Comments LDH (test code = 288 U/L 135-214 H Results gre ater than 88928-6) 1651 U/L may no t be reliable due to matrix effect w ith extended diluti on as it exceeds the fire extinguisher repairer inspector's recommended sweeney it. Caution should be exercised when interpreting limon ch values and done in conjunction [facility] clinical contex t. Lab Interpretation (test Abnormal code = 65716-3) [facility] 05:46:40 Test Item Value Reference Range Interpretation Comments LDH (test code = 288 U/L 135-214 H Results gre ater than 76067-8) 1651 U/L may no t be reliable due to matrix effect w ith extended diluti on as it exceeds the fire extinguisher repairer inspector's recommended sweeney it. Caution should be exercised when interpreting limon ch values and done in conjunction [facility] clinical contex t. Lab Interpretation (test Abnormal code = 86761-0) [facility] 05:46:40 Test Item Value Reference Range Interpretation Comments LDH (test code = 288 U/L 135-214 H Results gre ater than 16259-4) 1651 U/L may no t be reliable due to matrix effect w ith extended diluti on as it exceeds the fire extinguisher repairer inspector's recommended sweeney it. Caution should be exercised when interpreting limon ch values and done in conjunction [facility] clinical contex t. Lab Interpretation (test Abnormal code = 93477-9) [facility] 05:46:40 Test Item Value Reference Range Interpretation Comments LDH (test code = 288 U/L 135-214 H Results gre ater than 19544-0) 1651 U/L may no t be reliable due to matrix effect w ith extended diluti on as it exceeds the fire extinguisher repairer inspector's recommended sweeney it. Caution should be exercised when interpreting limon ch values and done in conjunction [facility] clinical contex t. Lab Interpretation (test Abnormal code = 62652-9) [facility] [id number] 05:21:40 Test Item Value Reference Range Interpretation Comments POC VB pH (test code 7.39 7.31-7.41 = 2746-6) POC VB pCO2 (test 32 See_Comment L [Automate d message] code = 2020-) The system [employer] generated this result transmitted ref erence range: 41 - 51 mmHg. The reference r ashley was not used to interpret this result as normal/abnor mal. POC VB pO2 (test 71 mmHg code = 2705-2) POC VB TCO2 (test 20 See_Comment L [Automate d message] code = 2026-) The system [employer] generated this result transmitted ref erence range: 24 - 29 mEq/L. The reference r ashley was not used to interpret this result as normal/abnor mal. POC VB Bicarb (test 19 mmol/L 23-28 L code = 68065-9) POC VB Base Ex (test -5 mmol/L -2-3 L code = 1927-3) POC VB O2 Sat (test 94 % code = 2711-0) POC VB LAC (test 0.9 mmol/L 0.9-1.7 Method desc ription: code = 2519-7) The i-STAT is an analyzer used f or in vitro quantific ation of various anal ytes in whole blood. The device uses a s jose a disposable cart ridge which contains microfabricated sensors, a calibration dixie ution, fluidics system , and a waste chamber . Each test cartridge contains chemic ally sensitive biose nsors on a Rapt ip that are config ured to perform spec ific tests. The microfabricated sensors measure analyte concent ration by an electroch emical assay. POC Sample Type Venous (test code = 6690) POC Clean Dev (test Yes code = 6672) Performing Lab (test MDA Main Main Ca mpus code = 81148) [facility] Cli nical Lab, [address], [facility] [place] [address]; Water Treatment Plant Repairer: Guerline Olmstead MD; Waived Point of Care Testing - Luz Maria levi MD Lab Interpretation Abnormal (test code = 97949-1) [facility] [id number] 05:21:40 Test Item Value Reference Range Interpretation Comments POC VB pH (test code 7.39 7.31-7.41 = 2746-6) POC VB pCO2 (test 32 See_Comment L [Automate d message] code = 2020-) The system [employer] generated this result transmitted ref erence range: 41 - 51 mmHg. The reference r ashley was not used to interpret this result as normal/abnor mal. POC VB pO2 (test 71 mmHg code = 2705-2) POC VB TCO2 (test 20 See_Comment L [Automate d message] code = 2026-) The system [employer] generated this result transmitted ref erence range: 24 - 29 mEq/L. The reference r ashley was not used to interpret this result as normal/abnor mal. POC VB Bicarb (test 19 mmol/L 23-28 L code = 48892-2) POC VB Base Ex (test -5 mmol/L -2-3 L code = 1927-3) POC VB O2 Sat (test 94 % code = 2711-0) POC VB LAC (test 0.9 mmol/L 0.9-1.7 Method desc ription: code = 2519-7) The i-STAT is an analyzer used f or in vitro quantific ation of various anal ytes in whole blood. The device uses a s jose a disposable cart ridge which contains microfabricated sensors, a calibration [employer] fluidics system , and a waste chamber . Each test cartridge contains chemic ally sensitive biose nsors on a Rapt ip that are config ured to perform spec ific tests. The microfabricated sensors measure analyte concent ration by an electroch emical assay. POC Sample Type Venous (test code = 6690) POC Clean Dev (test Yes code = 6672) Performing Lab (test MDA Main Main Ca mpus code = 85407) [facility] Cli nical Lab, [facility] Joaquim Hopkins, [place] [address]; Water Treatment Plant Repairer: Guerline Olmstead MD; Waived Point of Care Testing - Luz Maria levi MD Lab Interpretation Abnormal (test code = 28612-6) [facility] [id number] 05:21:40 Test Item Value Reference Range Interpretation Comments POC VB pH (test code 7.39 7.31-7.41 = 2746-6) POC VB pCO2 (test 32 See_Comment L [Automate d message] code = 2020-05) The system [employer] generated this result transmitted ref erence range: 41 - 51 mmHg. The reference r ashley was not used to interpret this result as normal/abnor mal. POC VB pO2 (test 71 mmHg code = 2705-2) POC VB TCO2 (test 20 See_Comment L [Automate d message] code = 2026-) The system [employer] generated this result transmitted ref erence range: 24 - 29 mEq/L. The reference r ashley was not used to interpret this result as normal/abnor mal. POC VB Bicarb (test 19 mmol/L 23-28 L code = 37484-4) POC VB Base Ex (test -5 mmol/L -2-3 L code = 1927-3) POC VB O2 Sat (test 94 % code = 2711-0) POC VB LAC (test 0.9 mmol/L 0.9-1.7 Method desc ription: code = 2519-7) The i-STAT is an analyzer used f or in vitro quantific ation of various anal ytes in whole blood. The device uses a s jose a disposable cart ridge which contains microfabricated sensors, a calibration [employer], fluidics system , and a waste chamber . Each test cartridge contains chemic ally sensitive biose nsors on a Rapt ip that are config ured to perform spec ific tests. The microfabricated sensors measure analyte concent ration by an electroch emical assay. POC Sample Type Venous (test code = 6690) POC Clean Dev (test Yes code = 6672) Performing Lab (test MDA Main Main Ca mpus code = 12242) [facility] Cli nical Lab, [facility] [place], [place] [address]; Water Treatment Plant Repairer: Guerline Olmstead MD; Waived Point of Care Testing - Luz Maria levi MD Lab Interpretation Abnormal (test code = 05931-4) [facility] [id number] 05:21:40 Test Item Value Reference Range Interpretation Comments POC VB pH (test code 7.39 7.31-7.41 = 2746-6) POC VB pCO2 (test 32 See_Comment L [Automate d message] code = 2020-05) The system [employer] generated this result transmitted ref erence range: 41 - 51 mmHg. The reference r ashley was not used to interpret this result as normal/abnor mal. POC VB pO2 (test 71 mmHg code = 2705-2) POC VB TCO2 (test 20 See_Comment L [Automate d message] code = 2026-) The system [employer] generated this result transmitted ref erence range: 24 - 29 mEq/L. The reference r ashley was not used to interpret this result as normal/abnor mal. POC VB Bicarb (test 19 mmol/L 23-28 L code = 93695-9) POC VB Base Ex (test -5 mmol/L -2-3 L code = 1927-3) POC VB O2 Sat (test 94 % code = 2711-0) POC VB LAC (test 0.9 mmol/L 0.9-1.7 Method desc ription: code = 2519-7) The i-STAT is an analyzer used f or in vitro quantific ation of various anal ytes in whole blood. The device uses a s jose a disposable cart ridge which contains microfabricated sensors, a calibration [employer] fluidics system , and a waste chamber . Each test cartridge contains chemic ally sensitive biose nsors on a Rapt ip that are config ured to perform spec ific tests. The microfabricated sensors measure analyte concent ration by an electroch emical assay. POC Sample Type Venous (test code = 6690) POC Clean Dev (test Yes code = 6672) Performing Lab (test MDA Main Main Ca mpus code = 46522) [facility] Cli nical Lab, [address] [place], [place] [address], [place] [address]; Water Treatment Plant Repairer: Guerline Olmstead MD; Waived Point of Care Testing - Luz Maria levi MD Lab Interpretation Abnormal (test code = 25949-2) [facility] [id number] 05:21:40 Test Item Value Reference Range Interpretation Comments POC VB pH (test code 7.39 7.31-7.41 = 2746-6) POC VB pCO2 (test 32 See_Comment L [Automate d message] code = 2020-) The system [employer] generated this result transmitted ref erence range: 41 - 51 mmHg. The reference r ashley was not used to interpret this result as normal/abnor mal. POC VB pO2 (test 71 mmHg code = 2705-2) POC VB TCO2 (test 20 See_Comment L [Automate d message] code = 2026-) The system [employer] generated this result transmitted ref erence range: 24 - 29 mEq/L. The reference r ashley was not used to interpret this result as normal/abnor mal. POC VB Bicarb (test 19 mmol/L 23-28 L code = 71640-4) POC VB Base Ex (test -5 mmol/L -2-3 L code = 1927-3) POC VB O2 Sat (test 94 % code = 2711-0) POC VB LAC (test 0.9 mmol/L 0.9-1.7 Method desc ription: code = 2519-7) The i-STAT is an analyzer used f or in vitro quantific ation of various anal ytes in whole blood. The device uses a s jose a disposable cart ridge which contains microfabricated sensors, a calibration [employer] fluidics system , and a waste chamber . Each test cartridge contains chemic ally sensitive biose nsors on a Rapt ip that are config ured to perform spec ific tests. The microfabricated sensors measure analyte concent ration by an electroch emical assay. POC Sample Type Venous (test code = 6690) POC Clean Dev (test Yes code = 6672) Performing Lab (test MDA Main Main Ca mpus code = 54138) [facility] Cli nical Lab, [address] [place], [place] [address] [address]; Water Treatment Plant Repairer: Guerline Olmstead MD; Waived Point of Care Testing - Luz Maria levi MD Lab Interpretation Abnormal (test code = 86699-5) [facility] [id number] 05:21:40 Test Item Value Reference Range Interpretation Comments POC VB pH (test code 7.39 7.31-7.41 = 2746-6) POC VB pCO2 (test 32 See_Comment L [Automate d message] code = 2020-05) The system ich generated this result transmitted ref erence range: 41 - 51 mmHg. The reference r ashley was not used to interpret this result as normal/abnor mal. POC VB pO2 (test 71 mmHg code = 2705-2) POC VB TCO2 (test 20 See_Comment L [Automate d message] code = 2026-02) The system ich generated this result transmitted ref erence range: 24 - 29 mEq/L. The reference r ashley was not used to interpret this result as normal/abnor mal. POC VB Bicarb (test 19 mmol/L 23-28 L code = 38911-9) POC VB Base Ex (test -5 mmol/L -2-3 L code = 1927-3) POC VB O2 Sat (test 94 % code = 2711-0) POC VB LAC (test 0.9 mmol/L 0.9-1.7 Method desc ription: code = 2519-7) The i-STAT is an analyzer used f or in vitro quantific ation of various anal ytes in whole blood. The device uses a s [employer] disposable cart ridge which contains microfabricated sensors, a calibration dixie ution, fluidics system , and a waste chamber . Each test cartridge contains chemic ally sensitive biose nsors on a Rapt ip that are config ured to perform spec ific tests. The microfabricated sensors measure analyte concent ration by an electroch emical assay. POC Sample Type Venous (test code = 6690) POC Clean Dev (test Yes code = 6672) Performing Lab (test MDA Main Main Ca mpus code = 02706) [facility] Cli nical Lab, [address] [facility] [place] [address]; Water Treatment Plant Repairer: Guerline Olmstead MD; Waived Point of Care Testing - Luz Maria levi MD Lab Interpretation Abnormal (test code = 25348-8) [facility] [id number] 05:21:40 Test Item Value Reference Range Interpretation Comments POC VB pH (test code 7.39 7.31-7.41 = 2746-6) POC VB pCO2 (test 32 See_Comment L [Automate d message] code = 2020-05) The system [employer] generated this result transmitted ref erence range: 41 - 51 mmHg. The reference r ashley was not used to interpret this result as normal/abnor mal. POC VB pO2 (test 71 mmHg code = 2705-2) POC VB TCO2 (test 20 See_Comment L [Automate d message] code = 2026-02) The system [employer] generated this result transmitted ref erence range: 24 - 29 mEq/L. The reference r ashley was not used to interpret this result as normal/abnor mal. POC VB Bicarb (test 19 mmol/L 23-28 L code = 11630-8) POC VB Base Ex (test -5 mmol/L -2-3 L code = 1927-3) POC VB O2 Sat (test 94 % code = 2711-0) POC VB LAC (test 0.9 mmol/L 0.9-1.7 Method desc ription: code = 2519-7) The i-STAT is an analyzer used f or in vitro quantific ation of various anal ytes in whole blood. The device uses a s jose a disposable cart ridge which contains microfabricated sensors, a calibration [employer] Sample[employer], fluidics system , and a waste chamber . Each test cartridge contains chemic ally sensitive biose nsors on a Rapt ip that are config ured to perform spec ific tests. The microfabricated sensors measure analyte concent ration by an electroch emical assay. POC Sample Type Venous (test code = 6690) POC Clean Dev (test Yes code = 6672) Performing Lab (test MDA Main Main Ca mpus code = 30176) [facility] Cli nical Lab, [address] [place], [place] [address]jania Hopkins, [place] [address]; Water Treatment Plant Repairer: Guerline Olmstead MD; Waived Point of Care Testing - Luz Maria levi MD Lab Interpretation Abnormal (test code = 20273-4) [facility] [id number] 05:21:40 Test Item Value Reference Range Interpretation Comments POC VB pH (test code 7.39 7.31-7.41 = 2746-6) POC VB pCO2 (test 32 See_Comment L [Automate d message] code = 2021-4) The system [employer] generated this result transmitted ref erence range: 41 - 51 mmHg. The reference r ashley was not used to interpret this result as normal/abnor mal. POC VB pO2 (test 71 mmHg code = 2705-2) POC VB TCO2 (test 20 See_Comment L [Automate d message] code = 2026-02) The system [employer] generated this result transmitted ref erence range: 24 - 29 mEq/L. The reference r ashley was not used to interpret this result as normal/abnor mal. POC VB Bicarb (test 19 mmol/L 23-28 L code = 03105-3) POC VB Base Ex (test -5 mmol/L -2-3 L code = 1927-3) POC VB O2 Sat (test 94 % code = 2711-0) POC VB LAC (test 0.9 mmol/L 0.9-1.7 Method desc ription: code = 2519-7) The i-STAT is an analyzer used f or in vitro quantific ation of various anal ytes in whole blood. The device uses a s jose a disposable cart ridge which contains microfabricated sensors, a calibration [employer]ixie Sample6, fluidics system , and a waste chamber . Each test cartridge contains chemic ally sensitive biose nsors on a Rapt ip that are config ured to perform spec ific tests. The microfabricated sensors measure analyte concent ration by an electroch emical assay. POC Sample Type Venous (test code = 6690) POC Clean Dev (test Yes code = 6672) Performing Lab (test MDA Main Main Ca mpus code = 96854) [facility] Cli nical Lab, [facility] [place] [address]; Water Treatment Plant Repairer: Guerline Olmstead MD; Waived Point of Care Testing - Luz Maria levi MD Lab Interpretation Abnormal (test code = 45094-7) [facility] [id number] 05:21:40 Test Item Value Reference Range Interpretation Comments POC VB pH (test code 7.39 7.31-7.41 = 2746-6) POC VB pCO2 (test 32 See_Comment L [Automate d message] code = 2020-05) The system [employer] generated this result transmitted ref erence range: 41 - 51 mmHg. The reference r ashley was not used to interpret this result as normal/abnor mal. POC VB pO2 (test 71 mmHg code = 2705-2) POC VB TCO2 (test 20 See_Comment L [Automate d message] code = 2026-1) The system [facility] generated this result transmitted ref erence range: 24 - 29 mEq/L. The reference r ashley was not used to interpret this result as normal/abnor mal. POC VB Bicarb (test 19 mmol/L 23-28 L code = 29889-0) POC VB Base Ex (test -5 mmol/L -2-3 L code = 1927-3) POC VB O2 Sat (test 94 % code = 2711-0) POC VB LAC (test 0.9 mmol/L 0.9-1.7 Method desc ription: code = 2519-7) The i-STAT is an analyzer used f or in vitro quantific ation of various anal ytes in whole blood. The device uses a s jose a disposable cart ridge which contains microfabricated sensors, a calibration dixie ution, fluidics system , and a waste chamber . Each test cartridge contains chemic ally sensitive biose nsors on a Rapt ip that are config ured to perform spec ific tests. The microfabricated sensors measure analyte concent ration by an electroch emical assay. POC Sample Type Venous (test code = 6690) POC Clean Dev (test Yes code = 6672) Performing Lab (test MDA Main Main Ca mpus code = 61912) [facility] Cli nical Lab, [address] [place], [place] [address] [address]; Water Treatment Plant Repairer: Guerline Olmstead MD; Waived Point of Care Testing - Luz Maria levi MD Lab Interpretation Abnormal (test code = 71660-8) [facility] (SARS-CoV-2) PCR- Asymptomatic [id number] 04:11:05 Test Item Value Reference Range Interpretation Comments COVID19 (SARS Not Detected Not Detected CoV-2) Result (test code = ____[place] i s a 06578-3) qualitative reverse-transcr iptase polymerase karla n reaction (RT-PC R) developed for t he [employer] MAHAMED 680 0 system and inte nded for qualitative detection of SA RS CoV-2 RNA in nasopharyngeal and oropharyngeal s wab specimens colle cted from any indivi duals, including those suspected of CO VID-19 by their health care provider, and t hose without symptom s or other reasons t o suspect COVID-1 9. A fact sheet for patients provid ed by the manufacture r ([employer]) c an be reviewed at:https://www. fda.go v/media/827042/ downlo ad. A fact shee t for Health Care pro viders is provided by the fire extinguisher repairer inspector ([employer]) and can be reviewed at: https://www.fda .gov/m edia/888900/corinne nload Results must be interpreted wit hin the context of all relevant clinic al and laboratory find ings and should not form the sole basis for a diagnosis or treatment decis ion. Positive result s do not rule out bacterial infec tion or co-infection with other viruses. Negative result s do not rule out SARS-CoV-2 and must be combined wit h clinical observations, p atient history, and/or epidemiological information. "Presumptive Positive" resul ts are due to partial amplification o f SARS-CoV-2 targ ets and indicates l ow amounts of viru s present in the specimen at or near the limit of detection. Regardless, individuals wit h "Presumptive Positive" resul ts should be manag ed per institutional guidelines as individuals pos itive for SARS-CoV-2 virus, including use o f appropriate inf ection control protoco ls. Internal contro ls are included to ass ess for possible amplification inhibitors. If inhibition is detected, testi ng is repeated and if inhibition is confirmed the specimen is res ulted as "Invalid". W hen an "Invalid" resul t occurs, it is recommended to wait 3 days before submitting a ne w specimen for te sting if clinically indicated. This assay has been approv ed by the FDA for use only under Emergency Use Authorization ( EUA) in laboratories that have been CLIA-certified to perform moderate-comple xity and high-comple xity tests. The performance characteristics of this assay were verified by the Microbiology Laboratory at [facility], CLIA Accreditation # : [id number] and CAP Accreditation # : [id number]. COVID19 SARS STEEL WELDER Swab Source (test code = 52181) COVID19 SARS Pre-Out of OR Indication (test Procedure code = 68726) [facility]- As[facility]omatic [id number] 04:11:05 Test Item Value Reference Range Interpretation Comments COVID19 (SARS Not Detected Not Detected CoV-2) Result (test code = ____This test i s a 87204-6) qualitative reverse-transcr iptase polymerase karla n reaction (RT-PC R) developed for t he [employer] MAHAMED 680 0 system and inte nded for qualitative detection of SA RS CoV-2 RNA in nasopharyngeal and oropharyngeal s wab specimens colle cted from any indivi duals, including those suspected of CO VID-19 by their health care provider, and t hose without symptom s or other reasons t o suspect COVID-1 9. A fact sheet for patients provid ed by the manufacture r ([employer]) c an be reviewed at:https://www. fda.go v/media/768840/ downlo ad. A fact shee t for Health Care pro viders is provided by the fire extinguisher repairer inspector ([employer]) and can be reviewed at: https://www.fda .gov/m edia/527485/corinne nload Results must be interpreted wit hin the context of all relevant clinic al and laboratory find ings and should not form the sole basis for a diagnosis or treatment decis ion. Positive result s do not rule out bacterial infec tion or co-infection with other viruses. Negative result s do not rule out SARS-CoV-2 and must be combined wit h clinical observations, p atient history, and/or epidemiological information. "Presumptive Positive" resul ts are due to partial amplification o f SARS-CoV-2 targ ets and indicates l ow amounts of viru s present in the specimen at or near the limit of detection. Regardless, individuals wit h "Presumptive Positive" resul ts should be manag ed per institutional guidelines as individuals pos itive for SARS-CoV-2 virus, including use o f appropriate inf ection control protoco ls. Internal contro ls are included to ass ess for possible amplification inhibitors. If inhibition is detected, testi ng is repeated and if inhibition is confirmed the specimen is res ulted as "Invalid". W hen an "Invalid" resul t occurs, it is recommended to wait 3 days before submitting a ne w specimen for te sting if clinically indicated. This assay has been approv ed by the FDA for use only under Emergency Use Authorization ( EUA) in laboratories that have been CLIA-certified to perform moderate-comple xity and high-comple xity tests. The performance characteristics of this assay were verified by the Microbiology Laboratory at [facility], CLIA Accreditation # : [id number] and CAP Accreditation # : [id number]. COVID19 SARS STEEL WELDER Swab Source (test code = 54455) COVID19 SARS Pre-Out of OR Indication (test Procedure code = 69818) [facility]- Asymptomatic [id number] 04:11:05 Test Item Value Reference Range Interpretation Comments COVID19 (SARS Not Detected Not Detected CoV-2) Result (test code = ____This test i s a 46496-8) qualitative reverse-transcr iptase polymerase karla n reaction (RT-PC R) developed for t he Gag[employer]ep MAHAMED 680 0 system and inte nded for qualitative detection of SA RS CoV-2 RNA in nasopharyngeal and oropharyngeal s wab specimens colle cted from any indivi duals, including those suspected of CO VID-19 by their health care provider, and t hose without symptom s or other reasons t o suspect COVID-1 9. A fact sheet for patients provid ed by the manufacture r ([employer]) c an be reviewed at:https://www. fda.go v/media/180289/ downlo ad. A fact shee t for Health Care pro viders is provided by the fire extinguisher repairer inspector ([employer]) and can be reviewed at: https://www.fda .gov/m edia/405611/corinne nload Results must be interpreted wit hin the context of all relevant clinic al and laboratory find ings and should not form the sole basis for a diagnosis or treatment decis ion. Positive result s do not rule out bacterial infec tion or co-infection with other viruses. Negative result s do not rule out SARS-CoV-2 and must be combined wit h clinical observations, p atient history, and/or epidemiological information. "Presumptive Positive" resul ts are due to partial amplification o f SARS-CoV-2 targ ets and indicates l ow amounts of viru s present in the specimen at or near the limit of detection. Regardless, individuals wit h "Presumptive Positive" resul ts should be manag ed per institutional guidelines as individuals pos itive for SARS-CoV-2 virus, including use o f appropriate inf ection control protoco ls. Internal contro ls are included to ass ess for possible amplification inhibitors. If inhibition is detected, testi ng is repeated and if inhibition is confirmed the specimen is res ulted as "Invalid". W hen an "Invalid" resul t occurs, it is recommended to wait 3 days before submitting a ne w specimen for te sting if clinically indicated. This assay has been approv ed by the FDA for use only under Emergency Use Authorization ( EUA) in laboratories that have been CLIA-certified to perform moderate-comple xity and high-comple xity tests. The performance characteristics of this assay were verified by the Microbiology Laboratory at [facility], CLIA Accreditation # : [id number] and CAP Accreditation # : [id number]. COVID19 SARS STEEL WELDER Swab Source (test code = 57577) COVID19 SARS Pre-Out of OR Indication (test Procedure code = 97280) [facility] [place] PCR- Asymptomatic [id number] 04:11:05 Test Item Value Reference Range Interpretation Comments COVID19 (SARS Not Detected Not Detected CoV-2) Result (test code = ____This test i s a 88723-6) qualitative reverse-transcr iptase polymerase karla n reaction (RT-PC R) developed for t he Gag[employer]ep MAHAMED 680 0 system and inte nded for qualitative detection of SA RS CoV-2 RNA in nasopharyngeal and oropharyngeal s wab specimens colle cted from any indivi duals, including those suspected of CO VID-19 by their health care provider, and t hose without symptom s or other reasons t o suspect COVID-1 9. A fact sheet for patients provid ed by the manufacture r ([employer]) c an be reviewed at:https://www. fda.go v/media/064008/ downlo ad. A fact shee t for Health Care pro viders is provided by the fire extinguisher repairer inspector ([employer]) and can be reviewed at: https://www.fda .gov/m edia/352333/corinne nload Results must be interpreted wit hin the context of all relevant clinic al and laboratory find ings and should not form the sole basis for a diagnosis or treatment decis ion. Positive result s do not rule out bacterial infec tion or co-infection with other viruses. Negative result s do not rule out SARS-CoV-2 and must be combined wit h clinical observations, p atient history, and/or epidemiological information. "Presumptive Positive" resul ts are due to partial amplification o f SARS-CoV-2 targ ets and indicates l ow amounts of viru s present in the specimen at or near the limit of detection. Regardless, individuals wit h "Presumptive Positive" resul ts should be manag ed per institutional guidelines as individuals pos itive for SARS-CoV-2 virus, including use o f appropriate inf ection control protoco ls. Internal contro ls are included to ass ess for possible amplification inhibitors. If inhibition is detected, testi ng is repeated and if inhibition is confirmed the specimen is res ulted as "Invalid". W hen an "Invalid" resul t occurs, it is recommended to wait 3 days before submitting a ne w specimen for te sting if clinically indicated. This assay has been approv ed by the FDA for use only under Emergency Use Authorization ( EUA) in laboratories that have been CLIA-certified to perform moderate-comple xity and high-comple xity tests. The performance characteristics of this assay were verified by the Microbiology Laboratory at [facility], CLIA Accreditation # : [id number] and CAP Accreditation # : [id number]. COVID19 SARS STEEL WELDER Swab Source (test code = 38241) COVID19 SARS Pre-Out of [place] Indication (test Procedure code = 34357) [facility]- Asymptomatic [id number] 04:11:05 Test Item Value Reference Range Interpretation Comments COVID19 (SARS Not Detected Not Detected CoV-2) Result (test code = ____This test i s a 52298-7) qualitative reverse-transcr iptase polymerase karla n reaction (RT-PC R) developed for t he [employer] MAHAMED 680 0 system and inte nded for qualitative detection of SA RS CoV-2 RNA in nasopharyngeal and oropharyngeal s wab specimens colle cted from any indivi duals, including those suspected of CO VID-19 by their health care provider, and t hose without symptom s or other reasons t o suspect COVID-1 9. A fact sheet for patients provid ed by the manufacture r ([employer]) c an be reviewed at:https://www. fda.go v/media/768772/ downlo ad. A fact shee t for Health Care pro viders is provided by the fire extinguisher repairer inspector ([employer]) and can be reviewed at: https://www.fda .gov/m edia/705074/corinne nload Results must be interpreted wit hin the context of all relevant clinic al and laboratory find ings and should not form the sole basis for a diagnosis or treatment decis ion. Positive result s do not rule out bacterial infec tion or co-infection with other viruses. Negative result s do not rule out SARS-CoV-2 and must be combined wit h clinical observations, p atient history, and/or epidemiological information. "Presumptive Positive" resul ts are due to partial amplification o f SARS-CoV-2 targ ets and indicates l ow amounts of viru s present in the specimen at or near the limit of detection. Regardless, individuals wit h "Presumptive Positive" resul ts should be manag ed per institutional guidelines as individuals pos itive for SARS-CoV-2 virus, including use o f appropriate inf ection control protoco ls. Internal contro ls are included to ass ess for possible amplification inhibitors. If inhibition is detected, testi ng is repeated and if inhibition is confirmed the specimen is res ulted as "Invalid". W hen an "Invalid" resul t occurs, it is recommended to wait 3 days before submitting a ne w specimen for te sting if clinically indicated. This assay has been approv ed by the FDA for use only under Emergency Use Authorization ( EUA) in laboratories that have been CLIA-certified to perform moderate-comple xity and high-comple xity tests. The performance characteristics of this assay were verified by the Microbiology Laboratory at [facility], CLIA Accreditation # : [id number] and CAP Accreditation # : [id number]. COVID19 SARS STEEL WELDER Swab Source (test code = 32830) COVID19 SARS Pre-Out of OR Indication (test Procedure code = 88361) [facility]- Asymptomatic [id number] 04:11:05 Test Item Value Reference Range Interpretation Comments COVID19 (SARS Not Detected Not Detected CoV-2) Result (test code = ____This test i s a 46175-2) qualitative reverse-transcr iptase polymerase karla n reaction (RT-PC R) developed for t he [employer]HAMED 680 0 system and inte nded for qualitative detection of SA RS CoV-2 RNA in nasopharyngeal and oropharyngeal s wab specimens colle cted from any indivi duals, including those suspected of CO VID-19 by their health care provider, and t hose without symptom s or other reasons t o suspect COVID-1 9. A fact sheet for patients provid ed by the manufacture r ([employer]) c an be reviewed at:https://www. fda.go v/media/143322/ downlo ad. A fact shee t for Health Care pro viders is provided by the fire extinguisher repairer inspector ([employer]) and can be reviewed at: https://www.fda .gov/m edia/719546/corinne nload Results must be interpreted wit hin the context of all relevant clinic al and laboratory find ings and should not form the sole basis for a diagnosis or treatment decis ion. Positive result s do not rule out bacterial infec tion or co-infection with other viruses. Negative result s do not rule out SARS-CoV-2 and must be combined wit h clinical observations, p atient history, and/or epidemiological information. "Presumptive Positive" resul ts are due to partial amplification o f SARS-CoV-2 targ ets and indicates l ow amounts of viru s present in the specimen at or near the limit of detection. Regardless, individuals wit h "Presumptive Positive" resul ts should be manag ed per institutional guidelines as individuals pos itive for SARS-CoV-2 virus, including use o f appropriate inf ection control protoco ls. Internal contro ls are included to ass ess for possible amplification inhibitors. If inhibition is detected, testi ng is repeated and if inhibition is confirmed the specimen is res ulted as "Invalid". W hen an "Invalid" resul t occurs, it is recommended to wait 3 days before submitting a ne w specimen for te sting if clinically indicated. This assay has been approv ed by the FDA for use only under Emergency Use Authorization ( EUA) in laboratories that have been CLIA-certified to perform moderate-comple xity and high-comple xity tests. The performance characteristics of this assay were verified by the Microbiology Laboratory at [facility], CLIA Accreditation # : [id number] and CAP Accreditation # : [id number]. COVID19 SARS STEEL WELDER Swab Source (test code = 73351) COVID19 SARS Pre-Out of OR Indication (test Procedure code = 63663) [facility] [place]- Asymptomatic [id number] 04:11:05 Test Item Value Reference Range Interpretation Comments COVID19 (SARS Not Detected Not Detected CoV-2) Result (test code = ____This test i s a 36226-2) qualitative reverse-transcr iptase polymerase karla n reaction (RT-PC R) developed for t he [employer]HAMED 680 0 system and inte nded for qualitative detection of SA RS CoV-2 RNA in nasopharyngeal and oropharyngeal s wab specimens colle cted from any indivi duals, including those suspected of CO VID-19 by their health care provider, and t hose without symptom s or other reasons t o suspect COVID-1 9. A fact sheet for patients provid ed by the manufacture r ([employer]) c an be reviewed at:https://www. fda.go v/media/157997/ downlo ad. A fact shee t for Health Care pro viders is provided by the fire extinguisher repairer inspector ([employer]) and can be reviewed at: https://www.fda .gov/m edia/306230/corinne nload Results must be interpreted wit hin the context of all relevant clinic al and laboratory find ings and should not form the sole basis for a diagnosis or treatment decis ion. Positive result s do not rule out bacterial infec tion or co-infection with other viruses. Negative result s do not rule out SARS-CoV-2 and must be combined wit h clinical observations, p atient history, and/or epidemiological information. "Presumptive Positive" resul ts are due to partial amplification o f SARS-CoV-2 targ ets and indicates l ow amounts of viru s present in the specimen at or near the limit of detection. Regardless, individuals wit h "Presumptive Positive" resul ts should be manag ed per institutional guidelines as individuals pos itive for SARS-CoV-2 virus, including use o f appropriate inf ection control protoco ls. Internal contro ls are included to ass ess for possible amplification inhibitors. If inhibition is detected, testi ng is repeated and if inhibition is confirmed the specimen is res ulted as "Invalid". W hen an "Invalid" resul t occurs, it is recommended to wait 3 days before submitting a ne w specimen for te sting if clinically indicated. This assay has been approv ed by the FDA for use only under Emergency Use Authorization ( EUA) in laboratories that have been CLIA-certified to perform moderate-comple xity and high-comple xity tests. The performance characteristics of this assay were verified by the Microbiology Laboratory at [facility], CLIA Accreditation # : [id number] and CAP Accreditation # : [id number]. COVID19 SARS STEEL WELDER Swab Source (test code = 58756) COVID19 SARS Pre-Out of OR Indication (test Procedure code = 91514) [facility]- Asymptomatic [id number] 04:11:05 Test Item Value Reference Range Interpretation Comments COVID19 (SARS Not Detected Not Detected CoV-2) Result (test code = ____This test i s a 82221-4) qualitative reverse-transcr iptase polymerase karla n reaction (RT-PC R) developed for t he [employer]HAMED 680 0 system and inte nded for qualitative detection of SA RS CoV-2 RNA in nasopharyngeal and oropharyngeal s wab specimens colle cted from any indivi duals, including those suspected of CO VID-19 by their health care provider, and t hose without symptom s or other reasons t o suspect COVID-1 9. A fact sheet for patients provid ed by the manufacture r ([employer]) c an be reviewed at:https://www. fda.go v/media/226298/ halimalo ad. A fact shee t for Health Care pro viders is provided by the fire extinguisher repairer inspector ([employer]) and can be reviewed at: https://www.fda .gov/m edia/134929/corinne nload Results must be interpreted wit hin the context of all relevant clinic al and laboratory find ings and should not form the sole basis for a diagnosis or treatment decis ion. Positive result s do not rule out bacterial infec tion or co-infection with other viruses. Negative result s do not rule out SARS-CoV-2 and must be combined wit h clinical observations, p atient history, and/or epidemiological information. "Presumptive Positive" resul ts are due to partial amplification o f SARS-CoV-2 targ ets and indicates l ow amounts of viru s present in the specimen at or near the limit of detection. Regardless, individuals wit h "Presumptive Positive" resul ts should be manag ed per institutional guidelines as individuals pos itive for SARS-CoV-2 virus, including use o f appropriate inf ection control protoco ls. Internal contro ls are included to ass ess for possible amplification inhibitors. If inhibition is detected, testi ng is repeated and if inhibition is confirmed the specimen is res ulted as "Invalid". W hen an "Invalid" resul t occurs, it is recommended to wait 3 days before submitting a ne w specimen for te sting if clinically indicated. This assay has been approv ed by the FDA for use only under Emergency Use Authorization ( EUA) in laboratories that have been CLIA-certified to perform moderate-comple xity and high-comple xity tests. The performance characteristics of this assay were verified by the Microbiology Laboratory at [facility], CLIA Accreditation # : [id number] and CAP Accreditation # : [id number]. COVID19 SARS STEEL WELDER Swab Source (test code = 66810) COVID19 SARS Pre-Out of OR Indication (test Procedure code = 24757) [facility] [place] PCR- Asymptomatic [id number] 04:11:05 Test Item Value Reference Range Interpretation Comments COVID19 (SARS Not Detected Not Detected CoV-2) Result (test code = ____This test i s a 00835-7) qualitative reverse-transcr iptase polymerase karla n reaction (RT-PC R) developed for t he [employer]AM[employer] 680 0 system and inte nded for qualitative detection of SA RS CoV-2 RNA in nasopharyngeal and oropharyngeal s wab specimens colle cted from any indivi duals, including those suspected of CO VID-19 by their health care provider, and t hose without symptom s or other reasons t o suspect COVID-1 9. A fact sheet for patients provid ed by the manufacture r ([employer]) c an be reviewed at:https://www. fda.go v/media/144316/ downlo ad. A fact shee t for Health Care pro viders is provided by the fire extinguisher repairer inspector ([employer]) and can be reviewed at: https://www.fda .gov/m edia/160179/corinne nload Results must be interpreted wit hin the context of all relevant clinic al and laboratory find ings and should not form the sole basis for a diagnosis or treatment decis ion. Positive result s do not rule out bacterial infec tion or co-infection with other viruses. Negative result s do not rule out SARS-CoV-2 and must be combined wit h clinical observations, p atient history, and/or epidemiological information. "Presumptive Positive" resul ts are due to partial amplification o f SARS-CoV-2 targ ets and indicates l ow amounts of viru s present in the specimen at or near the limit of detection. Regardless, individuals wit h "Presumptive Positive" resul ts should be manag ed per institutional guidelines as individuals pos itive for SARS-CoV-2 virus, including use o f appropriate inf ection control protoco ls. Internal contro ls are included to ass ess for possible amplification inhibitors. If inhibition is detected, testi ng is repeated and if inhibition is confirmed the specimen is res ulted as "Invalid". W hen an "Invalid" resul t occurs, it is recommended to wait 3 days before submitting a ne w specimen for te sting if clinically indicated. This assay has been approv ed by the FDA for use only under Emergency Use Authorization ( EUA) in laboratories that have been CLIA-certified to perform moderate-comple xity and high-comple xity tests. The performance characteristics of this assay were verified by the Microbiology Laboratory at [facility] [place], CLIA Accreditation # : [id number] and CAP Accreditation # : [id number]. COVID19 SARS STEEL WELDER Swab Source (test code = 75482) COVID19 SARS Pre-Out of OR Indication (test Procedure code = 07188) [facility] [place] [id number] 20:13:39 Test Item Value Reference Range Interpretation Comments HCVAb. (test Non Reactive Non Reactive Antibody detect ion in the code = 5762) immunocompromis ed and immunosuppresse d population may be delayed or absent entirely. There fore serial testing, correl ation with other clinical findings, and supplementa l testing (if available) should be taken into cons ideration when interpreti ng the results. [facility] [id number] 20:13:39 Test Item Value Reference Range Interpretation Comments HCVAb. (test Non Reactive Non Reactive Antibody detect ion in the code = 5762) immunocompromis ed and immunosuppresse d population may be delayed or absent entirely. There fore serial testing, correl ation with other clinical findings, and supplementa l testing (if available) should be taken into cons ideration when interpreti ng the results. [facility] C Virus [id number] 20:13:39 Test Item Value Reference Range Interpretation Comments HCVAb. (test Non Reactive Non Reactive Antibody detect ion in the code = 5762) immunocompromis ed and immunosuppresse d population may be delayed or absent entirely. There fore serial testing, correl ation with other clinical findings, and supplementa l testing (if available) should be taken into cons ideration when interpreti ng the results. [facility] [id number] 20:13:39 Test Item Value Reference Range Interpretation Comments HCVAb. (test Non Reactive Non Reactive Antibody detect ion in the code = 5762) immunocompromis ed and immunosuppresse d population may be delayed or absent entirely. There fore serial testing, correl ation with other clinical findings, and supplementa l testing (if available) should be taken into cons ideration when interpreti ng the results. [facility] [id number] 20:13:39 Test Item Value Reference Range Interpretation Comments HCVAb. (test Non Reactive Non Reactive Antibody detect ion in the code = 5762) immunocompromis ed and immunosuppresse d population may be delayed or absent entirely. There fore serial testing, correl ation with other clinical findings, and supplementa l testing (if available) should be taken into cons ideration when interpreti ng the results. [facility] Virus [id number] 20:13:39 Test Item Value Reference Range Interpretation Comments HCVAb. (test Non Reactive Non Reactive Antibody detect ion in the code = 5762) immunocompromis ed and immunosuppresse d population may be delayed or absent entirely. There fore serial testing, correl ation with other clinical findings, and supplementa l testing (if available) should be taken into cons ideration when interpreti ng the results. [facility] [id number] 20:13:39 Test Item Value Reference Range Interpretation Comments HCVAb. (test Non Reactive Non Reactive Antibody detect ion in the code = 5762) immunocompromis ed and immunosuppresse d population may be delayed or absent entirely. There fore serial testing, correl ation with other clinical findings, and supplementa l testing (if available) should be taken into cons ideration when interpreti ng the results. [facility] [id number] 20:13:39 Test Item Value Reference Range Interpretation Comments HCVAb. (test Non Reactive Non Reactive Antibody detect ion in the code = 5762) immunocompromis ed and immunosuppresse d population may be delayed or absent entirely. There fore serial testing, correl ation with other clinical findings, and supplementa l testing (if available) should be taken into cons ideration when interpreti ng the results. [facility] C Virus [id number] 20:13:39 Test Item Value Reference Range Interpretation Comments HCVAb. (test Non Reactive Non Reactive Antibody detect ion in the code = 5762) immunocompromis ed and immunosuppresse d population may be delayed or absent entirely. There fore serial testing, correl ation with other clinical findings, and supplementa l testing (if available) should be taken into cons ideration when interpreti ng the results. [facility]globulin[facility] 20:09:03 Test Item Value Reference Range Interpretation Comments Thyroglobulin (test 2.98 ng/mL 1.59-50.03 Referenc e range in code = 7622) athyrotic patie nts is <0.1 ng/mL. Due to varying antigen specificity, af finity and avidity of capture and con jugate antibodies in t heir epitope reactio ns, some thyroglobu sherman samples may not dilute linearly when results exceed 450 ng/mL. Thyroglob Ab (test See_Comment Due to va rying code = 7621) antigen specifi city, affinity and av idity of capture and conjugate antib odies in their epitop e reactions, some thyroglobulin antibody sample s may not dilute line helena when results ex ceed 1650 IU/mL. [Automated mess age] The system [employer] generated this result transmitted ref erence range: <=3.9 IU/ml. The refe rence range was not u sed to interpret this result as normal/abnor mal. [facility]ulin[facility] 20:09:03 Test Item Value Reference Range Interpretation Comments Thyroglobulin (test 2.98 ng/mL 1.59-50.03 Referenc e range in code = 7622) athyrotic patie nts is <0.1 ng/mL. Due to varying antigen specificity, af finity and avidity of capture and con jugate antibodies in t heir epitope reactio ns, some thyroglobu sherman samples may not dilute linearly when results exceed 450 ng/mL. Thyroglob Ab (test See_Comment Due to [employer] code = 7621) antigen specifi city, affinity and av idity of capture and conjugate antib odies in their epitop e reactions, some thyroglobulin antibody sample s may not dilute line helena when results ex ceed 1650 IU/mL. [Automated mess age] The system [employer] generated this result transmitted ref erence range: <=3.9 IU/ml. The refe rence range was not u sed to interpret this result as normal/abnor mal. [facility] 20:09:03 Test Item Value Reference Range Interpretation Comments Thyroglobulin (test 2.98 ng/mL 1.59-50.03 Referenc e range in code = 7622) athyrotic patie nts is <0.1 ng/mL. Due to varying antigen specificity, af finity and avidity of capture and con jugate antibodies in t heir epitope reactio ns, some thyroglobu sherman samples may not dilute linearly when results exceed 450 ng/mL. Thyroglob Ab (test See_Comment Due to va [employer] code = 7621) antigen specifi city, affinity and av idity of capture and conjugate antib odies in their epitop e reactions, some thyroglobulin antibody sample s may not dilute line helena when results ex ceed 1650 IU/mL. [Automated mess age] The system [employer] generated this result transmitted ref erence range: <=3.9 IU/ml. The refe rence range was not u sed to interpret this result as normal/abnor mal. [facility] 20:09:03 Test Item Value Reference Range Interpretation Comments Thyroglobulin (test 2.98 ng/mL 1.59-50.03 Referenc e range in code = 7622) athyrotic patie nts is <0.1 ng/mL. Due to varying antigen specificity, af finity and avidity of capture and con jugate antibodies in t heir epitope reactio ns, some thyroglobu sherman samples may not dilute linearly when results exceed 450 ng/mL. Thyroglob Ab (test See_Comment Due to flate[employer] code = 7621) antigen specifi city, affinity and av idity of capture and conjugate antib odies in their epitop e reactions, some thyroglobulin antibody sample s may not dilute line helena when results ex ceed 1650 IU/mL. [Automated mess age] The system [employer] generated this result transmitted ref erence range: <=3.9 IU/ml. The refe rence range was not u sed to interpret this result as normal/abnor mal. [facility] 20:09:03 Test Item Value Reference Range Interpretation Comments Thyroglobulin (test 2.98 ng/mL 1.59-50.03 Referenc e range in code = 7622) athyrotic patie nts is <0.1 ng/mL. Due to varying antigen specificity, af finity and avidity of capture and con jugate antibodies in t heir epitope reactio ns, some thyroglobu sherman samples may not dilute linearly when results exceed 450 ng/mL. Thyroglob Ab (test See_Comment Due to flatev code = 7621) antigen specifi city, affinity and av idity of capture and conjugate antib odies in their epitop e reactions, some thyroglobulin antibody sample s may not dilute line helena when results ex ceed 1650 IU/mL. [Automated mess age] The system [employer] generated this result transmitted ref erence range: <=3.9 IU/ml. The refe rence range was not u sed to interpret this result as normal/abnor mal. [facility] 20:09:03 Test Item Value Reference Range Interpretation Comments Thyroglobulin (test 2.98 ng/mL 1.59-50.03 Referenc e range in code = 7622) athyrotic patie nts is <0.1 ng/mL. Due to varying antigen specificity, af finity and avidity of capture and con jugate antibodies in t heir epitope reactio ns, some thyroglobu sherman samples may not dilute linearly when results exceed 450 ng/mL. Thyroglob Ab (test See_Comment Due to [employer] code = 7621) antigen specifi city, affinity and av idity of capture and conjugate antib odies in their epitop e reactions, some thyroglobulin antibody sample s may not dilute line helena when results ex ceed 1650 IU/mL. [Automated mess age] The system [employer] generated this result transmitted ref erence range: <=3.9 IU/ml. The refe rence range was not u sed to interpret this result as normal/abnor mal. [facility]03 Test Item Value Reference Range Interpretation Comments Thyroglobulin (test 2.98 ng/mL 1.59-50.03 Referenc e range in code = 7622) athyrotic patie nts is <0.1 ng/mL. Due to varying antigen specificity, af finity and avidity of capture and con jugate antibodies in t heir epitope reactio ns, some thyroglobu sherman samples may not dilute linearly when results exceed 450 ng/mL. Thyroglob Ab (test See_Comment Due to [employer] code = 7621) antigen specifi city, affinity and av idity of capture and conjugate antib odies in their epitop e reactions, some thyroglobulin antibody sample s may not dilute line helena when results ex ceed 1650 IU/mL. [Automated mess age] The system [employer] generated this result transmitted ref erence range: <=3.9 IU/ml. The refe rence range was not u sed to interpret this result as normal/abnor mal. [facility] 20:09:03 Test Item Value Reference Range Interpretation Comments Thyroglobulin (test 2.98 ng/mL 1.59-50.03 Referenc e range in code = 7622) athyrotic patie nts is <0.1 ng/mL. Due to varying antigen specificity, af finity and avidity of capture and con jugate antibodies in t heir epitope reactio ns, some thyroglobu sherman samples may not dilute linearly when results exceed 450 ng/mL. Thyroglob Ab (test See_Comment Due to [employer] code = 7621) antigen specifi city, affinity and av idity of capture and conjugate antib odies in their epitop e reactions, some thyroglobulin antibody sample s may not dilute line helena when results ex ceed 1650 IU/mL. [Automated mess age] The system [employer] generated this result transmitted ref erence range: <=3.9 IU/ml. The refe rence range was not u sed to interpret this result as normal/abnor mal. [facility] 20:09:03 Test Item Value Reference Range Interpretation Comments Thyroglobulin (test 2.98 ng/mL 1.59-50.03 Referenc e range in code = 7622) athyrotic patie nts is <0.1 ng/mL. Due to varying antigen specificity, af finity and avidity of capture and con jugate antibodies in t heir epitope reactio ns, some thyroglobu sherman samples may not dilute linearly when results exceed 450 ng/mL. Thyroglob Ab (test See_Comment Due to [employer] code = 7621) antigen specifi city, affinity and av idity of capture and conjugate antib odies in their epitop e reactions, some thyroglobulin antibody sample s may not dilute line helena when results ex ceed 1650 IU/mL. [Automated mess age] The system [employer] generated this result transmitted ref erence range: <=3.9 IU/ml. The refe rence range was not u sed to interpret this result as normal/abnor mal. [facility] [id number] 19:37:52 Test Item Value Reference Range Interpretation Comments Vitamin D 25 [place] (test 21 ng/mL 30-100 L Refere nce Range: code = 20083-8) Deficiency: <10 ng/mLInsufficie ncy: 10-29 ng/mLSufficienc y: 30-100 ng/mLPotential toxicity: >100 ng/mL Lab Interpretation (test Abnormal code = 28899-2) [facility] [id number] 19:37:52 Test Item Value Reference Range Interpretation Comments Vitamin D 25 OH (test 21 ng/mL 30-100 L Refere nce Range: code = 08180-9) Deficiency: <10 ng/mLInsufficie ncy: 10-29 ng/mLSufficienc y: 30-100 ng/mLPotential toxicity: >100 ng/mL Lab Interpretation (test Abnormal code = 19142-1) [facility] [id number] 19:37:52 Test Item Value Reference Range Interpretation Comments Vitamin D 25 OH (test 21 ng/mL 30-100 L Refere nce Range: code = 05767-2) Deficiency: <10 ng/mLInsufficie ncy: 10-29 ng/mLSufficienc y: 30-100 ng/mLPotential toxicity: >100 ng/mL Lab Interpretation (test Abnormal code = 09709-4) [facility] [id number] 19:37:52 Test Item Value Reference Range Interpretation Comments Vitamin D 25 OH (test 21 ng/mL 30-100 L Refere nce Range: code = 41232-7) Deficiency: <10 ng/mLInsufficie ncy: 10-29 ng/mLSufficienc y: 30-100 ng/mLPotential toxicity: >100 ng/mL Lab Interpretation (test Abnormal code = 98516-2) [facility] [id number] 19:37:52 Test Item Value Reference Range Interpretation Comments Vitamin D 25 OH (test 21 ng/mL 30-100 L Refere nce Range: code = 41960-1) Deficiency: <10 ng/mLInsufficie ncy: 10-29 ng/mLSufficienc y: 30-100 ng/mLPotential toxicity: >100 ng/mL Lab Interpretation (test Abnormal code = 39378-5) [facility] [id number] 19:37:52 Test Item Value Reference Range Interpretation Comments Vitamin D 25 [place] (test 21 ng/mL 30-100 L Refere nce Range: code = 17410-0) Deficiency: <10 ng/mLInsufficie ncy: 10-29 ng/mLSufficienc y: 30-100 ng/mLPotential toxicity: >100 ng/mL Lab Interpretation (test Abnormal code = 82223-5) [facility] [id number] 19:37:52 Test Item Value Reference Range Interpretation Comments Vitamin D 25 [place] (test 21 ng/mL 30-100 L Refere nce Range: code = 34988-2) Deficiency: <10 ng/mLInsufficie ncy: 10-29 ng/mLSufficienc y: 30-100 ng/mLPotential toxicity: >100 ng/mL Lab Interpretation (test Abnormal code = 93856-7) [facility] [id number] 19:37:52 Test Item Value Reference Range Interpretation Comments Vitamin D 25 [place] (test 21 ng/mL 30-100 L Refere nce Range: code = 80316-3) Deficiency: <10 ng/mLInsufficie ncy: 10-29 ng/mLSufficienc y: 30-100 ng/mLPotential toxicity: >100 ng/mL Lab Interpretation (test Abnormal code = 75629-8) [facility] [id number] 19:37:52 Test Item Value Reference Range Interpretation Comments Vitamin D 25 [place] (test 21 ng/mL 30-100 L Refere nce Range: code = 52199-9) Deficiency: <10 ng/mLInsufficie ncy: 10-29 ng/mLSufficienc y: 30-100 ng/mLPotential toxicity: >100 ng/mL Lab Interpretation (test Abnormal code = 72499-3) [facility]TSH[facility] 19:28:34 Test Item Value Reference Range Interpretation Comments TSH (test code = 0.01 See_Comment L [Automated message] 64496-6) The system [employer] generated this result transmitted ref erence range: 0.27 - 4 .20 mcunit/mL. The reference range was not used to int erpret this result as normal/abnormal . Lab Interpretation (test Abnormal code = 45206-0) [place] [id number] 19:28:34 Test Item Value Reference Range Interpretation Comments TSH (test code = 0.01 See_Comment L [Automated message] 17331-5) The system [employer] generated this result transmitted ref erence range: 0.27 - 4 .20 mcunit/mL. The reference range was not used to int erpret this result as normal/abnormal . Lab Interpretation (test Abnormal code = 56377-5) [facility] 19:28:34 Test Item Value Reference Range Interpretation Comments TSH (test code = 0.01 See_Comment L [Automated message] 20827-5) The system [employer] generated this result transmitted ref erence range: 0.27 - 4 .20 mcunit/mL. The reference range was not used to int erpret this result as normal/abnormal . Lab Interpretation (test Abnormal code = 85871-6) [facility] 19:28:34 Test Item Value Reference Range Interpretation Comments TSH (test code = 0.01 See_Comment L [Automated message] 90055-1) The system [employer] generated this result transmitted ref erence range: 0.27 - 4 .20 mcunit/mL. The reference range was not used to int erpret this result as normal/abnormal . Lab Interpretation (test Abnormal code = 29376-9) [facility] 19:28:34 Test Item Value Reference Range Interpretation Comments TSH (test code = 0.01 See_Comment L [Automated message] 78799-1) The system [employer] generated this result transmitted ref erence range: 0.27 - 4 .20 mcunit/mL. The reference range was not used to int erpret this result as normal/abnormal . Lab Interpretation (test Abnormal code = 65952-5) [facility] 19:28:34 Test Item Value Reference Range Interpretation Comments TSH (test code = 0.01 See_Comment L [Automated message] 30222-6) The system [employer] generated this result transmitted ref erence range: 0.27 - 4 .20 mcunit/mL. The reference range was not used to int erpret this result as normal/abnormal . Lab Interpretation (test Abnormal code = 90530-1) [facility] Test Item Value Reference Range Interpretation Comments TSH (test code = 0.01 See_Comment L [Automated message] 77746-8) The system [employer] generated this result transmitted ref erence range: 0.27 - 4 .20 mcunit/mL. The reference range was not used to int erpret this result as normal/abnormal . Lab Interpretation (test Abnormal code = 84789-5) [facility] 19:28:34 Test Item Value Reference Range Interpretation Comments TSH (test code = 0.01 See_Comment L [Automated message] 21967-4) The system [employer] generated this result transmitted ref erence range: 0.27 - 4 .20 mcunit/mL. The reference range was not used to int erpret this result as normal/abnormal . Lab Interpretation (test Abnormal code = 85079-3) [facility] 19:28:34 Test Item Value Reference Range Interpretation Comments TSH (test code = 0.01 See_Comment L [Automated message] 05605-8) The system [employer] generated this result transmitted ref erence range: 0.27 - 4 .20 mcunit/mL. The reference range was not used to int erpret this result as normal/abnormal . Lab Interpretation (test Abnormal code = 36865-4) [facility]Fr [id number] 19:28:32 Test Item Value Reference Range Interpretation Comments T4 Free (test code = 3024-7) 1.74 ng/dL 0.93-1.70 H Lab Interpretation (test code = Abnormal 77805-2) [facility] [id number] 19:28:32 Test Item Value Reference Range Interpretation Comments T4 Free (test code = 3024-7) 1.74 ng/dL 0.93-1.70 H Lab Interpretation (test code = Abnormal 32960-0) [facility] [id number] 19:28:32 Test Item Value Reference Range Interpretation Comments T4 Free (test code = 3024-7) 1.74 ng/dL 0.93-1.70 H Lab Interpretation (test code = Abnormal 04058-2) [facility] [id number] 19:28:32 Test Item Value Reference Range Interpretation Comments T4 Free (test code = 3024-7) 1.74 ng/dL 0.93-1.70 H Lab Interpretation (test code = Abnormal 59108-2) [facility] [id number] 19:28:32 Test Item Value Reference Range Interpretation Comments T4 Free (test code = 3024-7) 1.74 ng/dL 0.93-1.70 H Lab Interpretation (test code = Abnormal 95830-0) [facility] [id number] 19:28:32 Test Item Value Reference Range Interpretation Comments T4 Free (test code = 3024-7) 1.74 ng/dL 0.93-1.70 H Lab Interpretation (test code = Abnormal 22662-3) [facility] [id number] 19:28:32 Test Item Value Reference Range Interpretation Comments T4 Free (test code = 3024-7) 1.74 ng/dL 0.93-1.70 H Lab Interpretation (test code = Abnormal 86718-9) [facility] [id number] 19:21:21 Test Item Value Reference Range Interpretation Comments PTH Intact (test code = 6769) 21.0 pg/mL 15.0-65.0 [facility] [id number] 19:21:21 Test Item Value Reference Range Interpretation Comments PTH Intact (test code = 6769) 21.0 pg/mL 15.0-65.0 [facility] [id number] 19:21:21 Test Item Value Reference Range Interpretation Comments PTH Intact (test code = 6769) 21.0 pg/mL 15.0-65.0 [facility] [id number] 19:21:21 Test Item Value Reference Range Interpretation Comments PTH Intact (test code = 6769) 21.0 pg/mL 15.0-65.0 [facility] [id number] 19:21:21 Test Item Value Reference Range Interpretation Comments PTH Intact (test code = 6769) 21.0 pg/mL 15.0-65.0 [facility] [id number] 19:21:21 Test Item Value Reference Range Interpretation Comments PTH Intact (test code = 6769) 21.0 pg/mL 15.0-65.0 [facility] [id number] 19:21:21 Test Item Value Reference Range Interpretation Comments PTH Intact (test code = 6769) 21.0 pg/mL 15.0-65.0 [facility] [id number] 19:21:21 Test Item Value Reference Range Interpretation Comments PTH Intact (test code = 6769) 21.0 pg/mL 15.0-65.0 [facility] [id number] 19:21:21 Test Item Value Reference Range Interpretation Comments PTH Intact (test code = 6769) 21.0 pg/mL 15.0-65.0 [facility] HospitalCULTNOR[facility], [id number] 13:24:45SPECIMEN NUMBER: [id number] CULTURE, ANAEROBIC SPECIMEN NUMBER: [id number] SPECIMEN COMMENT: UND SOURCE: UNDEFINED REPORT STATUS: FINAL DIRECT GRAM STAIN: NO WBCs SEEN ABUNDANT GRAM POSITIVE COCCI FINALREPORT: 02/13/2022 NO ANAEROBES RECOVERED AFTER 5 DAYS PRELIMINARY ANAEROBE REPORT: 02/12/2022 NO ANAEROBES ISOLATED AT 4 DAYS ADDITIONAL OBSERVATIONS: 02/13/2022 POTENTIAL AEROBIC PATHOGEN RECOVERED.NO FURTHER WORKUP UNLESS REQUESTED. UNLESS OTHERWISE INDICATED, ALL TESTING PERFORMED [facility] [address] [place] [id number] QUALITY CONTROL PROJECTIONIST: LUZMARIA HAUSER M.D. CLIA NUMBER [id number] [place]. [id number], [id number] 00:00:00 Test Item Value Reference Range Interpretation Comments CULTURE, ANAEROBIC SPECIMEN NUMBER: (test code = 57100) [id number] CULTURE, [id number] 00:00:00 Test Item Value Reference Range Interpretation Comments CULTURE, ANAEROBIC SPECIMEN NUMBER: (test code = 53342) [id number]
[2022-09-02] MEDS ORDERED: ONDANSETRON 4 MG/2 ML VIAL ONE (21:05)
[2022-09-02] MEDS ORDERED: NA CHLORIDE 0.9% 1,000 ML ONE ×2 (21:05→23:11)
[2022-09-02 21:06] LABS: Absolute Lymphocytes (CBC) 2.4 K/uL (0.7-4.9); Hematocrit 37.9 % (36.0-45.0); Lymphocytes % 15.7 % (15.3-44.8); MCV 78.3 fL (80-100); RBC Red Blood Cell Count 4.84 M/uL (3.86-4.86)
[2022-09-02] MEDS ORDERED: FAMOTIDINE 20 MG/2 ML VIAL IV ONE (21:06)
[2022-09-02 22:08] LABS: Bilirubin Total 0.4 mg/dL (0.2-1.0); Potassium 3.5 mEq/L (3.5-5.1); Protein, Total 8.5 g/dL (6.4-8.2)
[2022-09-02 22:19] LABS: Specific Gravity 1.009 (1.005-1.030)
[2022-09-02 22:22] LABS: Specific Gravity 1.009 (1.005-1.030); Urine Bacteria <20 /HPF (<20); Urine Bilirubin NEGATIVE (Negative); Urine Blood 2+ (Negative); Urine Clarity Extremely Turbid (Clear); Urine Color Yellow (Yellow); Urine Crystals Unidentified Few /HPF (None Seen); Urine Glucose TRACE (Negative); Urine Mucus Slight /HPF (None Seen); Urine Protein 1+ (Negative); Urine RBC >50 /HPF (None Seen); Urine Urobilinogen Normal (Normal); Urine WBC Clump Few /HPF (None Seen)
[2022-09-02] MEDS ORDERED: CEFTRIAXONE 1000 MG/VIAL ONE (23:11)
[2022-09-03] MEDS ORDERED: ACETAMINOPHEN 500 MG TAB PO PRN (02:04)
[2022-09-03] MEDS ORDERED: ALPRAZOLAM 0.25 MG TABLET PO PRN (02:04)
[2022-09-03] MEDS ORDERED: NA CHLORIDE 0.9% 1,000 ML ONE ×2 (02:04→10:14)
[2022-09-03] MEDS ORDERED: Meropenem 1000 MG/VIAL IV ONE (02:04)
[2022-09-03] MEDS ORDERED: NA CHLORIDE 0.9% 100 ML ONE ×2 (02:04→08:02)
[2022-09-03] MEDS ORDERED: ONDANSETRON 4 MG/2 ML VIAL IV PRN (02:04)
[2022-09-03] MEDS ORDERED: KETOROLAC 30 MG/ML INJ ONE (02:04)
--- NOTE | 2022-09-03 02:04 | EDPHYS ---
Physician Documentation [facility] Name: Veronica Olmstead Age: 26 yrs Sex: Female : 1995 Arrival Date: 09/02/2022 Time: 20:22 Bed 6 Private MD: ED Physician Sky Molina HPI: 09/02 20:50 This 26 yrs old Female presents to ER via Ambulatory with complaints of Fever, cp Decreased Appetite, Doesn't Feel Right. 20:50 The patient reports fever, not measured (subjective). Onset: The symptoms/episode cp began/occurred yesterday. Associated signs and symptoms: Pertinent positives: nausea, general weakness, left flank and abdomen pain, Pertinent negatives: cough, diarrhea, vomiting. Severity of symptoms: in the emergency department the symptoms are unchanged despite home interventions. 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 - Social history:: Smoking status: Patient denies any tobacco usage or history of. ROS: 20:55 Constitutional: Positive for poor PO intake, Negative for chills, fever. cp 20:55 Eyes: Negative for injury, pain, redness, and discharge. cp 20:55 ENT: Negative for drainage from ear(s), ear pain, sore throat, difficulty swallowing, difficulty handling secretions. 20:55 Cardiovascular: Negative for chest pain, edema, palpitations. 20:55 Respiratory: Negative for cough, shortness of breath, wheezing. 20:55 Abdomen/GI: Positive for abdominal pain, nausea, anorexia, of the anterior aspect of left lateral abdomen, left upper quadrant and left lower quadrant, Negative for vomiting, diarrhea, constipation. 20:55 : Negative for pelvic pain. 20:55 Neuro: Positive for weakness, Negative for altered mental status, dizziness, headache, numbness. 20:55 All other systems are negative. Exam: 21:00 Constitutional: The patient appears in no acute distress, alert, awake, cp non-diaphoretic, non-toxic, well developed, well nourished. 21:00 Head/Face: Normocephalic, atraumatic. cp 21:00 Eyes: Periorbital structures: appear normal, Conjunctiva: normal, no exudate, no injection, Sclera: no appreciated abnormality, Lids and lashes: appear normal, bilaterally. 21:00 ENT: External ear(s): are unremarkable, Nose: is normal, Mouth: Lips: moist, Oral mucosa: pink and intact, moist, Posterior pharynx: is normal, airway is patent, no erythema, no exudate. 21:00 Neck: ROM/movement: is normal, is supple, without pain, no range of motions limitations. 21:00 Chest/axilla: Inspection: normal. 21:00 Cardiovascular: Rate: tachycardic, Rhythm: regular, Edema: is not appreciated. 21:00 Respiratory: the patient does not display signs of respiratory distress, Respirations: normal, no use of accessory muscles, no retractions, labored breathing, is not present, Breath sounds: are clear throughout, no decreased breath sounds, no stridor, no wheezing. 21:00 Abdomen/GI: Inspection: abdomen appears normal, Bowel sounds: active, all quadrants, Palpation: soft, in all quadrants, mild abdominal tenderness, in the anterior aspect of left lateral abdomen, left upper quadrant and left lower quadrant, rebound tenderness, is not appreciated. 21:00 Back: pain, that is mild, of the left mid back. 21:00 Skin: cellulitis, is not appreciated, no rash present. 21:00 Neuro: Orientation: to person, place \T\ time. Mentation: is normal, Cerebellar function: is grossly normal, Motor: moves all fours, strength is normal, Sensation: is normal, Gait: is steady. Vital Signs: 20:40 BP 119 / 64; Pulse 133; Resp 18; Temp 98.6; Pulse Ox 99% ; Weight 49.9 kg; Height 4 ft. cm10 11 in. ; Pain 2/10; 22:46 BP 95 / 54; Pulse 110; Resp 18 S; Pulse Ox 100% on R/A; as6 07 00:25 BP 108 / 67; Pulse 114; Resp 18 S; Pulse Ox 98% on R/A; as6 03:20 BP 110 / 75; Pulse 110; Resp 20; Temp 98; Pulse Ox 100% ; rv 09/02 20:40 Body Mass Index 22.22 (49.90 kg, 149.86 cm) cm10 09/02 20:40 Pain Scale: Adult cm10 MDM: 09/02 20:45 Patient medically screened. 21:00 Differential diagnosis: viral Infection, bacterial infection, bronchitis, pneumonia cp UTI, gastroenteritis, meningitis, sepsis. 09/03 01:50 Data reviewed: vital signs, nurses notes, lab test result(s), EKG, radiologic studies, cp CT scan. 01:50 Consideration of Admission/Observation Patient was admitted/placed on observation. Management of patient was discussed with the following: Test Grader: DR Reed, urologist, will consult after discussion and patient to be admitted to hospitalist services. 09/02 20:44 Order name: CBC with Diff; Complete Time: 22:50 09/02 22:51 Interpretation: Normal except: WBC 15.00; MCV 78.3; MCH 25.5; JAZMINE% 76.2; NEUT A 11.4. 09/02 20:44 Order name: CMP; Complete Time: 22:50 09/02 22:51 Interpretation: Normal except: NA 134; GLUC 131; ALK 122; TP 8.5; GLOB 4.5; A/G 0.9. 09/02 20:44 Order name: Lipase; Complete Time: 22:50 09/02 20:44 Order name: Test, Urine; Complete Time: 22:50 09/02 20:44 Order name: Urinalysis w/ reflexes; Complete Time: 22:50 09/02 22:51 Interpretation: Normal except: [facility] Extremely Turbid; UGLUC TRACE; UBLD 2+; UPROT 1+; cp UESTR 500; URBC >50; UWBC >50; UWBC Clump Few; BYST Many. 09/02 20:44 Order name: Lactate w/ 2H reflex if indic.; Complete Time: 22:50 09/02 22:51 Interpretation: Reviewed. 09/02 22:26 Order name: Urine Culture [facility] 09/03 02:11 Order name: Protime (+INR) [facility] 09/03 02:11 Order name: Urinalysis w/ reflexes [facility] 09/03 02:11 Order name: Basic Metabolic Panel [facility] 09/03 02:11 Order name: Basic Metabolic Panel [facility] 09/03 02:11 Order name: Basic Metabolic Panel [facility] 09/03 02:11 Order name: Basic Metabolic Panel [facility] 09/03 02:11 Order name: CBC with Automated Diff [facility] 09/03 02:11 Order name: CBC with Automated Diff [facility] 09/03 02:11 Order name: CBC with Automated Diff [facility] 09/03 02:11 Order name: CBC with Automated Diff [facility] 09/03 02:11 Order name: Magnesium ED[facility] 09/03 02:11 Order name: Magnesium EDMS 09/03 02:11 Order name: Magnesium EDMS 09/03 02:11 Order name: Magnesium EDMS 09/03 08:58 Order name: Glucose, Ancillary Testing ED[facility] 09/03 09:11 Order name: Phosphorus EDMS 09/03 09:11 Order name: Magnesium EDMS 09/02 22:59 Order name: CT Stone Protocol 09/03 02:06 Order name: CONS Physician Consult EDKS 09/03 02:11 Order name: NPO EDKS 09/02 20:44 Order name: IV Saline Lock; Complete Time: 21:00 cp 09/02 20:44 Order name: Labs collected and sent; Complete Time: 21:00 cp 09/02 20:44 Order name: Accucheck Blood Glucose; Complete Time: 22:56 cp 09/03 01:43 Order name: NPO; Complete Time: 01:52 cp Administered Medications: 09/02 21:02 Drug: NS 0.9% IV 1000 ml Route: IV; Rate: 1 bolus; Site: left forearm; rv 09/03 03:34 Follow up: IV Status: Completed infusion; IV Intake: 1000ml rv 09/02 21:02 Drug: Famotidine IVP 20 mg Route: IVP; Site: left forearm; rv 09/03 03:34 Follow up: Response: No adverse reaction rv 09/02 21:02 Drug: Ondansetron IVP 4 mg Route: IVP; Site: left forearm; rv 09/03 03:34 Follow up: Response: No adverse reaction 09/02 23:08 Drug: Rocephin IV 1 grams Route: IV; Rate: calculated rate; Site: left forearm; as6 23:08 Drug: NS 0.9% IV 1000 ml Route: IV; Rate: 1 bolus; Site: left forearm; as6 09/03 03:34 Follow up: IV Status: Completed infusion; IV Intake: 1000ml rv 02:16 Drug: Ketorolac IVP 15 mg Route: IVP; Site: left forearm; as6 03:34 Follow up: Response: No adverse reaction; Marked relief of symptoms rv 02:36 Drug: Meropenem IV 1 grams Route: IV; Rate: calculated rate; Site: right hand; rv 03:35 Follow up: Response: No adverse reaction; IV Status: Infusion continued upon admission rv 03:33 Drug: NS 0.9% IV 1000 ml Route: IV; Rate: 125 ml/hr; Site: right hand; rv 03:35 Follow up: IV Status: Infusion continued upon admission rv Disposition Summary: 09/03/22 02:03 Hospitalization Ordered Hospitalization Status: Inpatient Admission cp Provider: Jesús Clavo cp Condition: Stable cp Problem: new cp Symptoms: have improved cp Bed/Room Type: Standard cp Location: [facility] ER HOLD(09/03/22 02:33) cg Room Assignment: ERHOLD-(09/03/22 02:33) cg Diagnosis - Calculus of kidney - left cp - Sepsis, unspecified organism cp - UTI/ Urinary tract infection, site not specified cp Forms: - Medication Reconciliation Form cp - SBAR form cp Addendum: 09/05/2022 07:18 Co-signature as Attending Physician, Sky Molina MD I agree with the assessment s p4 and plan of care. I reviewed the patient's care provided by the Advanced Practice Provider and agree with the diagnosis and treatment plan. Signatures: Dispatcher [employer] EDKS Newton Dowling PA PA cp Kathy Underwood RN RN cg Beau Jacinto RN RN rv Finn Prieto RN RN as6 Sky Molina MD MD sp4 Ammy Gayle RN RN cm10 Corrections: (The following items were deleted from the chart) 09/02 23:05 22:54 Abdomen Pelvis W Con+CT.RAD.BRZ ordered. EDKS EDKS 09/03 02:33 02:03 Telemetry/MedSurg (Inpatient) cp cg 02: 02:03 cp cg
--- NOTE | 2022-09-03 02:04 | ER ---
Nurse's Notes [facility] Name: Veronica Olmstead Age: 26 yrs Sex: Female : 1995 Arrival Date: 09/02/2022 Time: 20:22 Bed 6 Private MD: Diagnosis: Calculus of kidney-left;Sepsis, unspecified organism;UTI/ Urinary tract infection, site not specified Presentation: 09/02 20:40 Chief complaint: Patient states: "I just feel weak and I don't want to be eat" onset cm10 yesterday. Pt also reports LLQ abdominal pain. Coronavirus screen: Vaccine status: Patient reports receiving the 2nd dose of the covid vaccine. Ebola Screen: Patient denies travel to an Ebola-affected area in the 21 days before illness onset. No symptoms or risks identified at this time. Initial Sepsis Screen: Does the patient meet any 2 criteria? No. Patient's initial sepsis screen is negative. Does the patient have a suspected source of infection? No. Patient's initial sepsis screen is negative. Risk Assessment: Do you want to hurt yourself or someone else? Patient reports no desire to harm self or others. Onset of symptoms was September 01, 2022. 20:40 Method Of Arrival: Ambulatory cm10 20:40 Acuity: MARINA 3 cm10 Triage Assessment: 20:43 General: Appears in no apparent distress. uncomfortable, Behavior is calm, cooperative. cm10 Pain: Complains of pain in left lower quadrant. Neuro: No deficits noted. Level of Consciousness is awake, alert, Oriented to person, place, time, situation. Respiratory: No deficits noted. Airway is patent Respiratory effort is even, unlabored, Respiratory pattern is regular, symmetrical. 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 - Social history:: Smoking status: Patient denies any tobacco usage or history of. Screenin:03 [facility] ED Fall Risk Assessment (Adult) History of falling in the last 3 months, rv including since admission No falls in past 3 months (0 pts) Confusion or Disorientation No (0 pts) Intoxicated or Sedated No (0 pts) Impaired Gait No (0 pts) Mobility Assist Device Used No (0 pt) Altered Elimination No (0 pt) Score/Fall Risk Level 0 - 2 = Low Risk Oriented to surroundings, Maintained a safe environment, Educated pt \\T\\ family on fall prevention, incl call for assistance when getting out of bed, Assessed \\T\\ reinforced patient's understanding of fall precautions, Provided non-skid footwear, Hourly rounding (assess needs \\T\\ fall precautionary measures) done, Used ambulatory aids as needed (educated on \\T\\ assisted with), Used gait belt as appropriate. Abuse screen: Denies threats or abuse. Denies injuries from another. Nutritional screening: No deficits noted. Tuberculosis screening: No symptoms or risk factors identified. Assessment: 21:02 General: Appears uncomfortable, Behavior is calm, cooperative. Pain: Complains of pain rv in abdomen. Cardiovascular: Capillary refill < 3 seconds. Respiratory: Airway is patent Respiratory effort is even, unlabored. GI: Abdomen is flat, non-distended, Reports nausea, Patient currently denies diarrhea. Vital Signs: 20:40 BP 119 / 64; Pulse 133; Resp 18; Temp 98.6; Pulse Ox 99% ; Weight 49.9 kg; Height 4 ft. cm10 11 in. ; Pain 2/10; 22:46 BP 95 / 54; Pulse 110; Resp 18 S; Pulse Ox 100% on R/A; as6 09/03 00:25 BP 108 / 67; Pulse 114; Resp 18 S; Pulse Ox 98% on R/A; as6 03:20 BP 110 / 75; Pulse 110; Resp 20; Temp 98; Pulse Ox 100% ; rv 09/02 20:40 Body Mass Index 22.22 (49.90 kg, 149.86 cm) cm10 09/02 20:40 Pain Scale: Adult cm10 ED Course: 09/02 20:28 Patient arrived in ED. am2 20:30 Newton Dowling PA is PHCP. cp 20:30 Sky Molina MD is Attending Physician. cp 20:42 Triage completed. cm10 20:44 Arm band placed on. cm10 20:50 Finn Prieto, FARZAD is Primary Nurse. as6 21:00 CBC with Diff Sent. ah1 21:00 CMP Sent. ah1 21:00 Lipase Sent. ah1 21:02 Inserted saline lock: 20 gauge in left forearm, using aseptic technique. Blood rv collected. 21:03 Patient has correct armband on for positive identification. Bed in low position. Call rv light in reach. Side rails up X 1. Adult w/ patient. Provided Education on: blood test. 21:03 No provider procedures requiring assistance completed. rv 23:46 CT Stone Protocol In Process Unspecified. EDNH 09/03 02:02 Jesús Calvo MD is Hospitalizing Provider. cp 02:30 Inserted saline lock: 22 gauge in right hand, using aseptic technique. rv 03:35 Patient admitted, IV remains in place. rv Administered Medications: 09/02 21:02 Drug: NS 0.9% IV 1000 ml Route: IV; Rate: 1 bolus; Site: left forearm; rv 09/03 03:34 Follow up: IV Status: Completed infusion; IV Intake: 1000ml rv 09/02 21:02 Drug: Famotidine IVP 20 mg Route: IVP; Site: left forearm; rv 09/03 03:34 Follow up: Response: No adverse reaction rv 09/02 21:02 Drug: Ondansetron IVP 4 mg Route: IVP; Site: left forearm; rv 09/03 03:34 Follow up: Response: No adverse reaction rv 09/02 23:08 Drug: Rocephin IV 1 grams Route: IV; Rate: calculated rate; Site: left forearm; as6 23:08 Drug: NS 0.9% IV 1000 ml Route: IV; Rate: 1 bolus; Site: left forearm; as6 09/03 03:34 Follow up: IV Status: Completed infusion; IV Intake: 1000ml rv 02:16 Drug: Ketorolac IVP 15 mg Route: IVP; Site: left forearm; as6 03:34 Follow up: Response: No adverse reaction; Marked relief of symptoms rv 02:36 Drug: Meropenem IV 1 grams Route: IV; Rate: calculated rate; Site: right hand; rv 03:35 Follow up: Response: No adverse reaction; IV Status: Infusion continued upon admission rv 03:33 Drug: NS 0.9% IV 1000 ml Route: IV; Rate: 125 ml/hr; Site: right hand; rv 03:35 Follow up: IV Status: Infusion continued upon admission rv Medication: 03:35 VIS not applicable for this client. rv Intake: 03:34 IV: 1000ml; Total: 1000ml. rv 03:34 IV: 1000ml; Total: 2000ml. rv Outcome: 02:03 Decision to Hospitalize by Provider. cp 03:35 Admitted to ER Hold. Please see [facility] for further documentation. rv 03:35 Condition: stable 03:35 Instructed on the need for admit. 10:07 Patient left the ED. ap3 Signatures: Dispatcher [employer] EDMS Newton Dowling PA PA cp Moreno, Amanda am2 Kenzie Perez, RN RN ap3 Beau Jacinto RN RN rv Finn Prieto, RN RN as6 Jerica Rios 1 Ammy Gayle, RN RN cm10
[2022-09-03] MEDS: NA CHLORIDE 0.9% 1,000 ML IV SCH ×3 (03:00→16:44)
[2022-09-03 03:27] VITALS: BMI 22.2
--- NOTE | 2022-09-03 03:42 | P.HP ---
Certification for Inpatient Patient admitted to: Inpatient With expected LOS: <2 Midnights Patient will require the following post-hospital care: None Practitioner: I am a practitioner with admitting privileges, knowledge of patient current condition, hospital course, and medical plan of care. Services: Services provided to patient in accordance with Admission requirements found in Title 42 Section 412.3 of the Code of Federal Regulations Patient History Date of Service: 09/03/22 Reason for admission: Flank pain History of Present Illness: 26-year-old female with a past medical history of insulin-dependent diabetes mellitus, thyroid cancer with previous thyroidectomy, leukemia presents to the emergency room with flank pain. She reports associated nausea, reports history of urinary tract infection previously being treated at [facility]. She reports left lower flank plain that is worse with standing and movement. She reports associated generalized weakness that was worse today. She denied dysuria, urinary frequency,fever, no reported vomiting, no diaphoresis no reported shortness of breath or chest pain. She reports last menstrual period 09/02. ER course SHe has been admitted and treated for sepsis, calculus in the left kidney, mild hydronephrosis.She was received IV fluids, as needed Zofran, Rocephin, and the emergency room had elevated heart rate. Mild hypotension, WBCs 15, early left shift mild hyponatremia at 134 glucose 131, UA positive for urinary tract infection 2+ but blood, 1+ protein, [address] radiology results pending . urology was consulted Allergies No Known Allergies Allergy (Unverified 09/03/22 03:28) Review of Systems 10-point ROS is otherwise unremarkable Physical Examination - Physical Exam General: Alert, In no apparent distress, Oriented x3 HEENT: Atraumatic, Normocephalic, PERRLA Neck: Supple, 2+ carotid pulse no bruit Respiratory: Clear to auscultation bilaterally, Normal air movement Cardiovascular: No edema, Normal pulses, Irregular heart rate/rhythm Capillary refill: <2 Seconds Gastrointestinal: Hypoactive (Left lower quadrant tenderness) Musculoskeletal: No clubbing, No swelling Integumentary: No rashes, No breakdown Neurological: Normal speech, Normal strength at 5/5 x4 extr, Cranial nerves 3-12 intact - Studies Laboratory Data (last 24 hrs) 09/02/22 20:53: Sodium 134 L, Potassium 3.5, BUN 16, Creatinine 0.79, Glucose 131 H, Total Bilirubin 0.4, AST 16, ALT 32, Alkaline Phosphatase 122 H, Lipase 29 09/02/22 20:53: WBC 15.00 H, Hgb 12.3, Hct 37.9, Plt Count 396 Assessment and Plan - Plan Assessment plan Sepsis secondary to urinary tract infection-with tachycardia, mild hypotension Abdominal pain Renal calculus Urinary tract infection Insulin-dependent diabetes mellitus History of thyroid carcinoma History of leukemia DVT prophylaxis Assessment plan Abdominal pain-as needed analgesics, antiemetics Renal calculus-urology consulted Sepsis-IV fluids, IV antibiotics, cefepime, Rocephin, Urinary tract infection-IV fluids, IV antibiotics Insulin-dependent diabetes [id number] HES ACHS, sliding scale insulin History of thyroid carcinoma-resume appropriate home medications History of leukemia Diet n.p.o. Full code DVT level Discharge Plan: Home Plan to discharge in: 48 Hours - Advance Directives Does patient have a Living Will: No Does patient have a Durable POA for Healthcare: No - Code Status/Comfort Care Code Status Assessed: Yes Code Status: Full Code Physician Review: Patient Assessed, Agree with Above Assessment and Plan Critical Care: No Time Spent Managing Pts Care (In Minutes): 55
[2022-09-03 06:27] LABS: Protime INR 1.1
[2022-09-03] MEDS ORDERED: KCL 20 MEQ/100 mL IVPB 20 MEQ/100 ML BAG IV SCH (08:00)
[2022-09-03] MEDS: CEFEPIME 2 GM in NA CHLORIDE 0.9% 100 ML IV SCH ×2 (08:00→21:24)
[2022-09-03] MEDS ORDERED: CEFEPIME 2 GM VIAL ONE (08:01)
[2022-09-03] MEDS ORDERED: CEFTRIAXONE 1,000 MG in NA CHLORIDE 0.9% 50 ML IVPB SCH (09:00)
[2022-09-03 09:11] LABS: Phosphorus 3.4 mg/dL (2.5-4.9)
--- NOTE | 2022-09-03 09:48 | P.CNS ---
Date of Consult: 09/03/22 Reason for Consult: Ureterolithiasis, suspected sepsis Requesting Physician: Newton Dowling Chief Complaint: Flank pain History of Present Illness: 26-year-old woman with IDDM 2, history of thyroid cancer post thyroidectomy, and leukemia, who presented via the emergency department last night with left anterior axillary/left lower quadrant pain. The pain began on Friday morning and eventually was associated with some feverishness as well as nausea plus anorexia. She denied any definitive fevers, but she did not have a thermometer to take her temperature. She denied any associated dysuria or pelvic pain/discomfort. She was treated for a UTI several months ago, but had no symptoms of/more recently. A comprehensive 12 point review of symptoms was otherwise negative Past medical history as above Past surgical history as above No known drug allergies Social history: Experimental smoker remote history Examination: Temp 98.1, pulse 106, 101/61, 99% on room air Well-appearing, well-developed, well-nourished, and in no acute distress Alert, awake, oriented x3 No dyspnea or sign of respiratory distress No cervical/supraclavicular adenopathy or thyromegaly Abdomen soft, nontender, nondistended Lying in a hospital bed able to move all extremities comfortably WBC 15, hemoglobin 12.3, platelets 396, INR 1.10, creatinine 0.79, lactic acid 1.2, alkaline phosphatase elevated Bedside DEXA scan performed at time of my evaluation glucose <90 CT abdomen and pelvis stone protocol 09/03/2022: I reviewed the images in detail in the absence of any report. No significant ureteronephrosis was noted on CT. Mild hydronephrosis/pelviectasis was indeed noted on the left and associated with a 5 to 6 mm renal pelvic calculus, likely ball valving. Assessment and recommendation: 26-year-old woman with IDDM 2, history of thyroid cancer post thyroidectomy, and leukemia with likely ball valving 5 to 6 mm left renal pelvic calculus causing left lower quadrant/left flank pain in association with SIRS. -I counseled the patient that given the SIRS/suspected sepsis, while no definitive infection has currently been proven, because the patient remains afebrile, she would likely benefit from decompression to assist in management and to decrease future complication. I explained that a ureteral stent would be placed in this circumstance, and subsequent treatment would be required. I counseled the patient on the potential for stent discomfort in detail. I also counseled her on the details of the recommended procedure: Cystoscopy with left retrograde pyelography and left ureteral stent placement -Risks of the procedure were discussed in detail to include urethral stricture, ureteral stricture, impacted ureteral calculus prohibiting stenting and mandating left nephrostomy tube placement, injury to the ureter. -She will be scheduled accordingly this morning for operative management. -Continue n.p.o. status Allergies No Known Allergies Allergy (Unverified 09/03/22 03:28) Home medications list reviewed: Yes Home Medications: Insulin Degludec [Tresiba Flextouch U-100] 35 units SQ TID 09/03/22 Insulin Lispro [Insulin Lispro Kwikpen U-100] 5 units SQ TID 09/03/22 Levothyroxine [Synthroid] 200 mcg PO [id number] 09/03/22 Sacubitril/Valsartan [Entresto 24 mg-26 mg Tablet] See Rx Instructions .ROUTE .COMPLEX 09/03/22 - Past Medical/Surgical History Diabetic: Yes - Social History Smoking Status: Unknown if ever smoked Place of Residence: Home Physical Examination Temp Pulse Resp BP Pulse Ox 98.4 F 104 H 15 101/61 98 09/03/22 08:00 09/03/22 08:00 09/03/22 08:00 09/03/22 08:00 09/03/22 08:00 Laboratory Data (last 24 hrs) 09/02/22 20:53: Sodium 134 L, Potassium 3.5, BUN 16, Creatinine 0.79, Glucose 131 H, Total Bilirubin 0.4, AST 16, ALT 32, Alkaline Phosphatase 122 H, Lipase 29 09/02/22 20:53: WBC 15.00 H, Hgb 12.3, Hct 37.9, Plt Count 396 - Problems (1) Left nephrolithiasis Current Visit: Yes Status: Acute (2) SIRS (systemic inflammatory response syndrome) Current Visit: Yes Status: Acute Critical Care: No Time Spent Managing Pts care (In Minutes): 30
[2022-09-03] MEDS ORDERED: propofoL 200 MG/20 ML VIAL IV ONE (11:32)
[2022-09-03] MEDS ORDERED: LIDOCAINE 1% MPF 5 ML VIAL ONE (11:33)
[2022-09-03] MEDS ORDERED: FENTANYL CITR 100 MCG/2 ML ONE (11:33)
[2022-09-03] MEDS ORDERED: LIDOCAINE JELLY 2% 5 ML SYRINGE TOP ONE ×2 (11:33→12:50)
[2022-09-03] MEDS ORDERED: MIDAZOLAM HCL 2 MG/2 ML INJ ONE (11:33)
[2022-09-03] MEDS ORDERED: ONDANSETRON 4 MG/2 ML VIAL ONE (11:33)
[2022-09-03] MEDS ORDERED: dexAMETHasone 10 MG/ML VIAL ONE (11:33)
[2022-09-03] MEDS ORDERED: NS 0.9% VIAL 10 ML ONE (12:42)
[2022-09-03] MEDS ORDERED: Phenylephrine HCl 10 MG/ML 1 ML VIAL ONE (12:42)
--- NOTE | 2022-09-03 12:49 | P.OP ---
Date of Service: 09/03/22 Preoperative diagnosis: Left nephrolithiasis SIRS/suspected sepsis Postoperative diagnoses: Left nephrolithiasis SIRS/suspected sepsis Complicated UTI Acute cystitis Principal procedures: Cystoscopy Left retrograde pyelography Left 6 Taiwanese by 24 cm ureteral stent placement Indication for procedure: 26-year-old woman with IDDM 2, history of thyroid cancer post thyroidectomy, and leukemia with likely ball valving 5 to 6 mm left renal pelvic calculus causing left lower quadrant/left flank pain in association with SIRS. Findings and Operative Technique The patient was consented in the preoperative holding area before being transferred to the operative suite where general anesthesia was induced. She had been given cefepime 2 g IV antimicrobial therapy in the emergency department. Pneumoboots were provided for DVT prophylaxis. She was placed in the lithotomy position, padded and secured to the table appropriately. Her genitalia was prepped with Hibiclens and draped in standard fashion. The case was begun using a 22 Taiwanese rigid cystoscope to traverse the urethra and into the bladder with ease. The bladder was decompressed of clear yellow urine. I then surveyed the bladder noting chronic cystitis throughout. The ureteral orifice was orthotopic in location and covered by a degree of squamous metaplasia within the trigone. I was able to cannulate the ureteral orifice using a 5 Taiwanese ureteral access catheter. Left retrograde pyelography: Using a 70: 30 mixture of Omnipaque and saline, contrast was injected via the 5 Taiwanese ureteral access catheter and did propagate up a relatively nondilated distal into the mid and proximal ureter before entering the renal pelvis with calyces that were relatively sharp without significant blunting or pelviectasis noted. I did advance a sensor wire via the 5 Taiwanese ureteral access catheter up the ureter and coiled it in the upper pole of the collecting system. Over the wire, I removed the 5 Taiwanese ureteral access catheter and replaced a 6 Taiwanese by 24 cm double-J ureteral stent with ease with a coil observed fluoroscopically in the upper pole and 1 cystoscopically formed in her bladder. There was rapid efflux of cloudy/somewhat purulent appearing urine from within the kidney out of the stent. As a result, I collected a sample of the urine for culture before decompressing her bladder completely. She was then taken out of the lithotomy position, awakened from general anesthesia, transferred to a stretcher, and then transferred to the recovery room in good condition. Complications: None Discharge disposition: Since the stone is not radiopaque and thus not visible, she will require definitive management via ureteroscopy with laser lithotripsy once the infection has been adequately treated. She should be scheduled for follow-up in my office within the next 3 to 4 weeks.
--- NOTE | 2022-09-03 12:49 | RAD REPORT ---
EXAM DESCRIPTION: RAD - Urethrocystogrphy Retrograde - 09/03/2022 12:44 pm CLINICAL HISTORY: STENT PLACEMENT COMPARISON: No comparisons FINDINGS: Total fluoro time: 0.6 minutes
[2022-09-03 13:54] VITALS: O2SAT 96
[2022-09-03] MEDS: MORPHINE 2 MG/ML SYR IV PRN ×2 (14:13→18:44)
[2022-09-03] MEDS ORDERED: NA CHLORIDE 0.9% 1,000 ML IV ONE (15:55)
[2022-09-03] MEDS ORDERED: GLUCAGON 1 MG/VIAL IM PRN (17:05)
[2022-09-03] MEDS ORDERED: D10W 250 ML BAG IV PRN (17:05)
[2022-09-03] MEDS: INSULIN -REGULAR HUMAN 50 UNIT/0.5 ML ML SQ SCH ×2 (17:29→21:24)
--- NOTE | 2022-09-03 18:37 | RAD REPORT ---
EXAM DESCRIPTION: CT Abdomen and Pelvis Without Intravenous Contrast CLINICAL HISTORY: The patient is 26 years old and is Female; left flank pain TECHNIQUE: Axial computed tomography images of the abdomen and pelvis without intravenous contrast. Sagittal and coronal reformatted images were created and reviewed. This CT exam was performed usi ng one or more of the following dose reduction techniques: automated exposure control, adjustment o f the mA and/or kV according to patient size, and/or use of iterative reconstruction technique. COMPARISON: No relevant prior studies available. FINDINGS: Lung bases: Unremarkable. No mass. No consolidation. ABDOMEN: Liver: Hepatomegaly with diffuse hepatic steatosis. Nonspecific 1.9 cm round hyperattenuating focus in the left liver. Neoplasm is not excluded. Gallbladder and bile ducts: Unremarkable. No calcified stones. No ductal dilation. Pancreas: Unremarkable. No ductal dilation. Spleen: Unremarkable. No splenomegaly. Adrenals: Unremarkable. No mass. Kidneys and ureters: 7 mm stone in the upper left kidney causing obstruction of the upper calyces and mild left hydronephrosis. Mild left perinephric stranding. Simple cyst in the right kidney. No follow-up imaging is recommended. Stomach and bowel: Unremarkable. No obstruction. No mucosal thickening. PELVIS: Appendix: No findings to suggest acute appendicitis. Bladder: Unremarkable. Reproductive: Unremarkable as visualized. ABDOMEN and PELVIS: Intraperitoneal space: Unremarkable. No free air. No significant fluid collection. Bones/joints: No acute fracture. No dislocation. Soft tissues: Unremarkable. Vasculature: Unremarkable. No abdominal aortic aneurysm. Lymph nodes: Unremarkable. No enlarged lymph nodes. IMPRESSION: 1. 7 mm stone in the upper left kidney causing obstruction of the upper calyces and mi ld left hydronephrosis. Mild left perinephric stranding. 2. Hepatomegaly with diffuse hepatic steatosis. 3. Nonspecific 1.9 cm round hyperattenuating focus in the left liver. Neoplasm is not excluded. Electronically signed by: Martínez Mendoza MD 09/03/2022 12:16 AM CDT Due to temporary technical issues with the PACS/Fluency reporting system, reports are being signed by the in house radiologists without review as a courtesy to insure prompt reporting. The interpreting radiologist is fully responsible for the content of the report.
[2022-09-04] MEDS: NA CHLORIDE 0.9% 1,000 ML IV SCH (04:09)
[2022-09-04] MEDS: MORPHINE 2 MG/ML SYR IV PRN (05:29)
[2022-09-04 05:41] LABS: Absolute Lymphocytes (CBC) 1.1 K/uL (0.7-4.9); Hematocrit 35.2 % (36.0-45.0); Lymphocytes % 8.3 % (15.3-44.8); MCV 79.4 fL (80-100); MPV 8.1 fL (7.6-11.3); RBC Red Blood Cell Count 4.43 M/uL (3.86-4.86)
[2022-09-04 06:00] LABS: ALT/SGPT 32 U/L (13-56); AST/SGOT 20 U/L (15-37); Albumin 3.3 g/dL (3.4-5.0); Alkaline Phosphatase 118 U/L (45-117); BUN Blood Urea Nitrogen 11 mg/dL (7-18); Bicarbonate 20 mEq/L (21-32); Bilirubin Total 0.3 mg/dL (0.2-1.0); Glomerular Filtration Rate 139 ml/min (=/>90); Glucose Level 217 mg/dL (74-106); Magnesium 2.1 mg/dL (1.6-2.4); Protein, Total 7.7 g/dL (6.4-8.2); Sodium Level 134 mEq/L (136-145)
[2022-09-04 06:06] LABS: Bilirubin Direct < 0.1 mg/dL (0-0.2); Bilirubin Indirect, Calculated ND mg/dL (0.2-0.8)
[2022-09-04] MEDS: INSULIN -REGULAR HUMAN 50 UNIT/0.5 ML ML SQ SCH (07:30)
[2022-09-04 08:36] LABS: Blood Morphology Comment NOT SEEN (NOT SEEN); Platelet Estimate ADEQ; White Blood Cell Scan OK (OK)
[2022-09-04] MEDS: CEFEPIME 2 GM in NA CHLORIDE 0.9% 100 ML IV SCH (09:01)
[2022-09-04 09:21] VITALS: BP 131/75; TEMP 97.6
== END 2022-09-04 10:50 | disposition home or self-care (01) | DRG 854 ==
LOC: ER 20:22 → ERHOLD 09-03 02:01 → 4TH 09-03 13:39
PROVIDERS: ADMIT Hospitalist; ATTEND Hospitalist
PROC: BT1F1ZZ Fluoroscopy of Left Kidney, Ureter and Bladder using Low Osmolar Contrast (ICD-10-PCS; 2022-09-03)
PROC: 0T778DZ Dilation of Left Ureter with Intraluminal Device, Via Natural or Artificial Opening Endoscopic (ICD-10-PCS; principal; 2022-09-03 15:00)
DX: A41.9 Sepsis, unspecified organism (principal); E87.1 Hypo-osmolality and hyponatremia; N13.6 Pyonephrosis; E11.9 Type 2 diabetes mellitus without complications; Z79.4 Long term (current) use of insulin; Z85.850 Personal history of malignant neoplasm of thyroid; Z79.890 Hormone replacement therapy; Z79.899 Other long term (current) drug therapy
CPT/HCPCS: 36415; 51610; 74176; 74450; 76377; 80048; 80053; 80076; 81001; 81025; 82947; 83605; 83690; 83735; 84100; 84132; 85025; 85610; 87086; 87088; 96361; 96365; 96375; 99285; A4216; J0692; J0696; J1100; J1815; J2001; J2185; J2250; J2270; J2371; J2405; J2704; J3010; J3480; J7030

== ENCOUNTER 2022-10-06 01:36 | Emergency (ER) | payer BC ==
--- OUTSIDE RECORDS SUMMARY | 2022-10-06 01:43 | XMS REPORT | Clinical Summary ---
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 CT SOFT TISSUE NECK W Routine 04/12/2022 2:09 Malignant neopla sm Results for this CONTRAST PM SERVICE DESK ASSOCIATE of thyroid gland procedure a re in the results section. POC GLUCOSE SCREEN Routine 04/02/2022 8:17 Result s for this AM SERVICE DESK ASSOCIATE procedure are i n the results section. MANUAL DIFFERENTIAL AM 04/02/2022 7:05 Resul ts for this AM SERVICE DESK ASSOCIATE procedure are i n the results section. Results CBC AM 04/02/2022 7:05 Results for this AM SERVICE DESK ASSOCIATE procedure are i n the results section. .GLOMERULAR FILTRATION AM 04/02/2022 7:05 Re sults for this RATE AM SERVICE DESK ASSOCIATE procedure are i n the results section. SERUM CREATININE AM 04/02/2022 7:05 Results for this AM SERVICE DESK ASSOCIATE procedure are i n the results section. ELECTROLYTE PANEL AM 04/02/2022 7:05 Results for this AM SERVICE DESK ASSOCIATE procedure are i n the results section. BLOOD UREA NITROGEN AM 04/02/2022 7:05 Resul ts for this AM SERVICE DESK ASSOCIATE procedure are i n the results section. GLUCOSE LEVEL AM 04/02/2022 7:05 Results for this AM SERVICE DESK ASSOCIATE procedure are i n the results section. FRACTIONATED BILIRUBIN AM 04/02/2022 7:05 Re sults for this AM SERVICE DESK ASSOCIATE procedure are i n the results section. TOTAL PROTEIN AM 04/02/2022 7:05 Results for this AM SERVICE DESK ASSOCIATE procedure are i n the results section. ASPARTATE AM 04/02/2022 7:05 Results for this AMINOTRANSFERASE AM SERVICE DESK ASSOCIATE procedure a re in the results section. ALANINE AM 04/02/2022 7:05 Results for this AMINOTRANSFERASE AM SERVICE DESK ASSOCIATE procedure a re in the results section. ALKALINE PHOSPHATASE AM 04/02/2022 7:05 Resu lts for this AM SERVICE DESK ASSOCIATE procedure are i n the results section. ALBUMIN LEVEL AM 04/02/2022 7:05 Results for this AM SERVICE DESK ASSOCIATE procedure are i n the results section. PHOSPHORUS LEVEL AM 04/02/2022 7:05 Results for this AM SERVICE DESK ASSOCIATE procedure are i n the results section. BASIC METABOLIC PANEL, AM 04/02/2022 7:05 CALCIUM IONIZED AM SERVICE DESK ASSOCIATE MAGNESIUM LEVEL AM 04/02/2022 7:05 Results f or this AM SERVICE DESK ASSOCIATE procedure are i n the results section. COMPLETE BLOOD COUNT W/ AM 04/02/2022 7:05 DIFFERENTIAL AM SERVICE DESK ASSOCIATE HEPATIC FUNCTION PANEL AM 04/02/2022 7:05 AM SERVICE DESK ASSOCIATE PROTHROMBIN TIME AM 04/02/2022 7:05 Results for this AM SERVICE DESK ASSOCIATE procedure are i n the results section. CALCIUM IONIZED, VENOUS AM 04/02/2022 7:01 R esults for this AM SERVICE DESK ASSOCIATE procedure are i n the results section. POC GLUCOSE SCREEN Routine 04/01/2022 10:20 Resul ts for this PM SERVICE DESK ASSOCIATE procedure are i n the results section. POC GLUCOSE SCREEN Routine 04/01/2022 5:38 Result s for this PM SERVICE DESK ASSOCIATE procedure are i n the results section. GENERAL LABORATORY ADD Routine 04/01/2022 4:14 Re sults for this ON TEST PM SERVICE DESK ASSOCIATE procedure are i n the results section. POC GLUCOSE SCREEN Routine 04/01/2022 12:18 Resul ts for this PM SERVICE DESK ASSOCIATE procedure are i n the results section. POC GLUCOSE SCREEN Routine 04/01/2022 10:39 Resul ts for this AM SERVICE DESK ASSOCIATE procedure are i n the results section. POC GLUCOSE SCREEN Routine 04/01/2022 9:12 Result s for this AM SERVICE DESK ASSOCIATE procedure are i n the results section. HEMOGLOBIN A1C AM 04/01/2022 8:09 Results fo r this AM SERVICE DESK ASSOCIATE procedure are i n the results section. TMP INTERPRETATION Routine 04/01/2022 8:09 Result s for this ANTIBODY SCREEN AM SERVICE DESK ASSOCIATE procedure ar e in NEGATIVE the results section. CLOT EXPIRATION DATE Routine 04/01/2022 8:09 Resu lts for this AM SERVICE DESK ASSOCIATE procedure are i n the results section. ANTIBODY SCREEN Routine 04/01/2022 8:09 Results f or this AM SERVICE DESK ASSOCIATE procedure are i n the results section. ABORH Routine 04/01/2022 8:09 Results for this AM SERVICE DESK ASSOCIATE procedure are i n the results section. CALCIUM IONIZED, VENOUS AM 04/01/2022 8:09 R esults for this AM SERVICE DESK ASSOCIATE procedure are i n the results section. MANUAL DIFFERENTIAL AM 04/01/2022 8:09 Resul ts for this AM SERVICE DESK ASSOCIATE procedure are i n the results section. Results CBC AM 04/01/2022 8:09 Results for this AM SERVICE DESK ASSOCIATE procedure are i n the results section. .GLOMERULAR FILTRATION AM 04/01/2022 8:09 Re sults for this RATE AM SERVICE DESK ASSOCIATE procedure are i n the results section. SERUM CREATININE AM 04/01/2022 8:09 Results for this AM SERVICE DESK ASSOCIATE procedure are i n the results section. ELECTROLYTE PANEL AM 04/01/2022 8:09 Results for this AM SERVICE DESK ASSOCIATE procedure are i n the results section. BLOOD UREA NITROGEN AM 04/01/2022 8:09 Resul ts for this AM SERVICE DESK ASSOCIATE procedure are i n the results section. GLUCOSE LEVEL AM 04/01/2022 8:09 Results for this AM SERVICE DESK ASSOCIATE procedure are i n the results section. FRACTIONATED BILIRUBIN AM 04/01/2022 8:09 Re sults for this AM SERVICE DESK ASSOCIATE procedure are i n the results section. TOTAL PROTEIN AM 04/01/2022 8:09 Results for this AM SERVICE DESK ASSOCIATE procedure are i n the results section. ASPARTATE AM 04/01/2022 8:09 Results for this AMINOTRANSFERASE AM SERVICE DESK ASSOCIATE procedure a re in the results section. ALANINE AM 04/01/2022 8:09 Results for this AMINOTRANSFERASE AM SERVICE DESK ASSOCIATE procedure a re in the results section. ALKALINE PHOSPHATASE AM 04/01/2022 8:09 Resu lts for this AM SERVICE DESK ASSOCIATE procedure are i n the results section. ALBUMIN LEVEL AM 04/01/2022 8:09 Results for this AM SERVICE DESK ASSOCIATE procedure are i n the results section. TYPE AND SCREEN Routine 04/01/2022 8:09 AM SERVICE DESK ASSOCIATE PHOSPHORUS LEVEL AM 04/01/2022 8:09 Results for this AM SERVICE DESK ASSOCIATE procedure are i n the results section. BASIC METABOLIC PANEL, AM 04/01/2022 8:09 CALCIUM IONIZED AM SERVICE DESK ASSOCIATE MAGNESIUM LEVEL AM 04/01/2022 8:09 Results f or this AM SERVICE DESK ASSOCIATE procedure are i n the results section. COMPLETE BLOOD COUNT W/ AM 04/01/2022 8:09 DIFFERENTIAL AM SERVICE DESK ASSOCIATE HEPATIC FUNCTION PANEL AM 04/01/2022 8:09 AM SERVICE DESK ASSOCIATE PROTHROMBIN TIME AM 04/01/2022 8:09 Results for this AM SERVICE DESK ASSOCIATE procedure are i n the results section. OSCILLATORY PEP Routine 04/01/2022 8:00 AM SERVICE DESK ASSOCIATE POC GLUCOSE SCREEN Routine 03/31/2022 9:10 Result s for this PM SERVICE DESK ASSOCIATE procedure are i n the results section. OSCILLATORY PEP Routine 03/31/2022 8:00 PM SERVICE DESK ASSOCIATE POC GLUCOSE SCREEN Routine 03/31/2022 5:54 Result s for this PM SERVICE DESK ASSOCIATE procedure are i n the results section. OSCILLATORY PEP Routine 03/31/2022 2:01 PM SERVICE DESK ASSOCIATE POC GLUCOSE SCREEN Routine 03/31/2022 1:18 Result s for this PM SERVICE DESK ASSOCIATE procedure are i n the results section. OSCILLATORY PEP Routine 03/31/2022 9:26 AM SERVICE DESK ASSOCIATE OSCILLATORY PEP Routine 03/31/2022 9:26 AM SERVICE DESK ASSOCIATE OSCILLATORY PEP Routine 03/31/2022 9:26 AM SERVICE DESK ASSOCIATE POC GLUCOSE SCREEN Routine 03/31/2022 8:53 Result s for this AM SERVICE DESK ASSOCIATE procedure are i n the results section. CALCIUM IONIZED, VENOUS AM 03/31/2022 6:16 R esults for this AM SERVICE DESK ASSOCIATE procedure are i n the results section. MANUAL DIFFERENTIAL AM 03/31/2022 6:16 Resul ts for this AM SERVICE DESK ASSOCIATE procedure are i n the results section. Results CBC AM 03/31/2022 6:16 Results for this AM SERVICE DESK ASSOCIATE procedure are i n the results section. .GLOMERULAR FILTRATION AM 03/31/2022 6:16 Re sults for this RATE AM SERVICE DESK ASSOCIATE procedure are i n the results section. SERUM CREATININE AM 03/31/2022 6:16 Results for this AM SERVICE DESK ASSOCIATE procedure are i n the results section. ELECTROLYTE PANEL AM 03/31/2022 6:16 Results for this AM SERVICE DESK ASSOCIATE procedure are i n the results section. BLOOD UREA NITROGEN AM 03/31/2022 6:16 Resul ts for this AM SERVICE DESK ASSOCIATE procedure are i n the results section. GLUCOSE LEVEL AM 03/31/2022 6:16 Results for this AM SERVICE DESK ASSOCIATE procedure are i n the results section. FRACTIONATED BILIRUBIN AM 03/31/2022 6:16 Re sults for this AM SERVICE DESK ASSOCIATE procedure are i n the results section. TOTAL PROTEIN AM 03/31/2022 6:16 Results for this AM SERVICE DESK ASSOCIATE procedure are i n the results section. ASPARTATE AM 03/31/2022 6:16 Results for this AMINOTRANSFERASE AM SERVICE DESK ASSOCIATE procedure a re in the results section. ALANINE AM 03/31/2022 6:16 Results for this AMINOTRANSFERASE AM SERVICE DESK ASSOCIATE procedure a re in the results section. ALKALINE PHOSPHATASE AM 03/31/2022 6:16 Resu lts for this AM SERVICE DESK ASSOCIATE procedure are i n the results section. ALBUMIN LEVEL AM 03/31/2022 6:16 Results for this AM SERVICE DESK ASSOCIATE procedure are i n the results section. PHOSPHORUS LEVEL AM 03/31/2022 6:16 Results for this AM SERVICE DESK ASSOCIATE procedure are i n the results section. BASIC METABOLIC PANEL, AM 03/31/2022 6:16 CALCIUM IONIZED AM SERVICE DESK ASSOCIATE MAGNESIUM LEVEL AM 03/31/2022 6:16 Results f or this AM SERVICE DESK ASSOCIATE procedure are i n the results section. COMPLETE BLOOD COUNT W/ AM 03/31/2022 6:16 DIFFERENTIAL AM SERVICE DESK ASSOCIATE HEPATIC FUNCTION PANEL AM 03/31/2022 6:16 AM SERVICE DESK ASSOCIATE PROTHROMBIN TIME AM 03/31/2022 6:16 Results for this AM SERVICE DESK ASSOCIATE procedure are i n the results section. POC GLUCOSE SCREEN Routine 03/30/2022 10:42 Resul ts for this PM SERVICE DESK ASSOCIATE procedure are i n the results section. POC GLUCOSE SCREEN Routine 03/30/2022 8:03 Result s for this PM SERVICE DESK ASSOCIATE procedure are i n the results section. POC GLUCOSE SCREEN Routine 03/30/2022 6:00 Result s for this PM SERVICE DESK ASSOCIATE procedure are i n the results section. PICC/NON-TUNNELED CVAD Routine 03/30/2022 1:37 Encounter for R esults for this REMOVAL PM SERVICE DESK ASSOCIATE adjustment and procedure are in management of the results vascular access section. device POC GLUCOSE SCREEN Routine 03/30/2022 1:33 Result s for this PM SERVICE DESK ASSOCIATE procedure are i n the results section. POC GLUCOSE SCREEN Routine 03/30/2022 1:30 Result s for this PM SERVICE DESK ASSOCIATE procedure are i n the results section. POC CRITICAL Routine 03/30/2022 1:30 Results for this PM SERVICE DESK ASSOCIATE procedure are i n the results section. POC GLUCOSE SCREEN Routine 03/30/2022 9:59 Result s for this AM SERVICE DESK ASSOCIATE procedure are i n the results section. OSCILLATORY PEP Routine 03/30/2022 8:00 AM SERVICE DESK ASSOCIATE FRACTIONATED BILIRUBIN Routine 03/30/2022 7:36 Re sults for this AM SERVICE DESK ASSOCIATE procedure are i n the results section. TOTAL PROTEIN Routine 03/30/2022 7:36 Results for this AM SERVICE DESK ASSOCIATE procedure are i n the results section. ASPARTATE Routine 03/30/2022 7:36 Results for this AMINOTRANSFERASE AM SERVICE DESK ASSOCIATE procedure a re in the results section. ALANINE Routine 03/30/2022 7:36 Results for this AMINOTRANSFERASE AM SERVICE DESK ASSOCIATE procedure a re in the results section. ALKALINE PHOSPHATASE Routine 03/30/2022 7:36 Resu lts for this AM SERVICE DESK ASSOCIATE procedure are i n the results section. ALBUMIN LEVEL Routine 03/30/2022 7:36 Results for this AM SERVICE DESK ASSOCIATE procedure are i n the results section. MANUAL DIFFERENTIAL AM 03/30/2022 7:36 Resul ts for this AM SERVICE DESK ASSOCIATE procedure are i n the results section. Results CBC AM 03/30/2022 7:36 Results for this AM SERVICE DESK ASSOCIATE procedure are i n the results section. CALCIUM IONIZED, VENOUS Routine 03/30/2022 7:36 R esults for this AM SERVICE DESK ASSOCIATE procedure are i n the results section. .GLOMERULAR FILTRATION Routine 03/30/2022 7:36 Re sults for this RATE AM SERVICE DESK ASSOCIATE procedure are i n the results section. SERUM CREATININE Routine 03/30/2022 7:36 Results for this AM SERVICE DESK ASSOCIATE procedure are i n the results section. ELECTROLYTE PANEL Routine 03/30/2022 7:36 Results for this AM SERVICE DESK ASSOCIATE procedure are i n the results section. BLOOD UREA NITROGEN Routine 03/30/2022 7:36 Resul ts for this AM SERVICE DESK ASSOCIATE procedure are i n the results section. GLUCOSE LEVEL Routine 03/30/2022 7:36 Results for this AM SERVICE DESK ASSOCIATE procedure are i n the results section. COMPLETE BLOOD COUNT W/ AM 03/30/2022 7:36 DIFFERENTIAL AM SERVICE DESK ASSOCIATE APTT AM 03/30/2022 7:36 Results for this AM SERVICE DESK ASSOCIATE procedure are i n the results section. PROTHROMBIN TIME AM 03/30/2022 7:36 Results for this AM SERVICE DESK ASSOCIATE procedure are i n the results section. MAGNESIUM LEVEL Routine 03/30/2022 7:36 Results f or this AM SERVICE DESK ASSOCIATE procedure are i n the results section. PHOSPHORUS LEVEL Routine 03/30/2022 7:36 Results for this AM SERVICE DESK ASSOCIATE procedure are i n the results section. BASIC METABOLIC PANEL, Routine 03/30/2022 7:36 CALCIUM IONIZED AM SERVICE DESK ASSOCIATE POC GLUCOSE SCREEN Routine 03/30/2022 5:52 Result s for this AM SERVICE DESK ASSOCIATE procedure are i n the results section. POC GLUCOSE SCREEN Routine 03/29/2022 10:16 Resul ts for this PM SERVICE DESK ASSOCIATE procedure are i n the results section. OSCILLATORY PEP Routine 03/29/2022 8:00 PM SERVICE DESK ASSOCIATE CALCIUM IONIZED, VENOUS Routine 03/29/2022 5:38 R esults for this PM SERVICE DESK ASSOCIATE procedure are i n the results section. .GLOMERULAR FILTRATION Routine 03/29/2022 5:38 Re sults for this RATE PM SERVICE DESK ASSOCIATE procedure are i n the results section. SERUM CREATININE Routine 03/29/2022 5:38 Results for this PM SERVICE DESK ASSOCIATE procedure are i n the results section. ELECTROLYTE PANEL Routine 03/29/2022 5:38 Results for this PM SERVICE DESK ASSOCIATE procedure are i n the results section. BLOOD UREA NITROGEN Routine 03/29/2022 5:38 Resul ts for this PM SERVICE DESK ASSOCIATE procedure are i n the results section. GLUCOSE LEVEL Routine 03/29/2022 5:38 Results for this PM SERVICE DESK ASSOCIATE procedure are i n the results section. MAGNESIUM LEVEL Routine 03/29/2022 5:38 Results f or this PM SERVICE DESK ASSOCIATE procedure are i n the results section. PHOSPHORUS LEVEL Routine 03/29/2022 5:38 Results for this PM SERVICE DESK ASSOCIATE procedure are i n the results section. BASIC METABOLIC PANEL, Routine 03/29/2022 5:38 CALCIUM IONIZED PM SERVICE DESK ASSOCIATE POC GLUCOSE SCREEN Routine 03/29/2022 5:21 Result s for this PM SERVICE DESK ASSOCIATE procedure are i n the results section. OSCILLATORY PEP Routine 03/29/2022 4:00 PM SERVICE DESK ASSOCIATE OSCILLATORY PEP Routine 03/29/2022 12:00 PM SERVICE DESK ASSOCIATE POC GLUCOSE SCREEN Routine 03/29/2022 11:15 Resul ts for this AM SERVICE DESK ASSOCIATE procedure are i n the results section. CLOT EXPIRATION DATE Routine 03/29/2022 10:16 Res ults for this AM SERVICE DESK ASSOCIATE procedure are i n the results section. TMP INTERPRETATION Routine 03/29/2022 10:16 Resul ts for this ANTIBODY SCREEN AM SERVICE DESK ASSOCIATE procedure ar e in NEGATIVE the results section. CALCIUM IONIZED, VENOUS Routine 03/29/2022 10:16 Results for this AM SERVICE DESK ASSOCIATE procedure are i n the results section. .GLOMERULAR FILTRATION Routine 03/29/2022 10:16 R esults for this RATE AM SERVICE DESK ASSOCIATE procedure are i n the results section. SERUM CREATININE Routine 03/29/2022 10:16 Results for this AM SERVICE DESK ASSOCIATE procedure are i n the results section. ELECTROLYTE PANEL Routine 03/29/2022 10:16 Result s for this AM SERVICE DESK ASSOCIATE procedure are i n the results section. BLOOD UREA NITROGEN Routine 03/29/2022 10:16 Resu lts for this AM SERVICE DESK ASSOCIATE procedure are i n the results section. GLUCOSE LEVEL Routine 03/29/2022 10:16 Results fo r this AM SERVICE DESK ASSOCIATE procedure are i n the results section. ANTIBODY SCREEN Routine 03/29/2022 10:16 Results for this AM SERVICE DESK ASSOCIATE procedure are i n the results section. ABORH Routine 03/29/2022 10:16 Results for this AM SERVICE DESK ASSOCIATE procedure are i n the results section. MAGNESIUM LEVEL Routine 03/29/2022 10:16 Results for this AM SERVICE DESK ASSOCIATE procedure are i n the results section. PHOSPHORUS LEVEL Routine 03/29/2022 10:16 Results for this AM SERVICE DESK ASSOCIATE procedure are i n the results section. LACTIC ACID, VENOUS Routine 03/29/2022 10:16 Resu lts for this AM SERVICE DESK ASSOCIATE procedure are i n the results section. BASIC METABOLIC PANEL, Routine 03/29/2022 10:16 CALCIUM IONIZED AM SERVICE DESK ASSOCIATE ARTERIAL BLOOD GAS Routine 03/29/2022 10:16 Resul ts for this AM SERVICE DESK ASSOCIATE procedure are i n the results section. TYPE AND SCREEN Routine 03/29/2022 10:16 AM SERVICE DESK ASSOCIATE POC GLUCOSE SCREEN Routine 03/29/2022 8:07 Result s for this AM SERVICE DESK ASSOCIATE procedure are i n the results section. OSCILLATORY PEP Routine 03/29/2022 8:00 AM SERVICE DESK ASSOCIATE POC GLUCOSE SCREEN Routine 03/29/2022 5:16 Result s for this AM SERVICE DESK ASSOCIATE procedure are i n the results section. XR CHEST 1 VW PORTABLE Routine 03/29/2022 1:42 Re sults for this AM SERVICE DESK ASSOCIATE procedure are i n the results section. MANUAL DIFFERENTIAL STAT 03/29/2022 12:44 Resu lts for this AM SERVICE DESK ASSOCIATE procedure are i n the results section. Results CBC STAT 03/29/2022 12:44 Results for this AM SERVICE DESK ASSOCIATE procedure are i n the results section. FRACTIONATED BILIRUBIN AM 03/29/2022 12:44 R esults for this AM SERVICE DESK ASSOCIATE procedure are i n the results section. TOTAL PROTEIN AM 03/29/2022 12:44 Results fo r this AM SERVICE DESK ASSOCIATE procedure are i n the results section. ASPARTATE AM 03/29/2022 12:44 Results for this AMINOTRANSFERASE AM SERVICE DESK ASSOCIATE procedure a re in the results section. ALANINE AM 03/29/2022 12:44 Results for this AMINOTRANSFERASE AM SERVICE DESK ASSOCIATE procedure a re in the results section. ALKALINE PHOSPHATASE AM 03/29/2022 12:44 Res ults for this AM SERVICE DESK ASSOCIATE procedure are i n the results section. ALBUMIN LEVEL AM 03/29/2022 12:44 Results fo r this AM SERVICE DESK ASSOCIATE procedure are i n the results section. CALCIUM IONIZED, VENOUS Routine 03/29/2022 12:44 Results for this AM SERVICE DESK ASSOCIATE procedure are i n the results section. .GLOMERULAR FILTRATION Routine 03/29/2022 12:44 R esults for this RATE AM SERVICE DESK ASSOCIATE procedure are i n the results section. SERUM CREATININE Routine 03/29/2022 12:44 Results for this AM SERVICE DESK ASSOCIATE procedure are i n the results section. ELECTROLYTE PANEL Routine 03/29/2022 12:44 Result s for this AM SERVICE DESK ASSOCIATE procedure are i n the results section. BLOOD UREA NITROGEN Routine 03/29/2022 12:44 Resu lts for this AM SERVICE DESK ASSOCIATE procedure are i n the results section. GLUCOSE LEVEL Routine 03/29/2022 12:44 Results fo r this AM SERVICE DESK ASSOCIATE procedure are i n the results section. COMPLETE BLOOD COUNT W/ AM 03/29/2022 12:44 DIFFERENTIAL AM SERVICE DESK ASSOCIATE HEPATIC FUNCTION PANEL AM 03/29/2022 12:44 AM SERVICE DESK ASSOCIATE APTT AM 03/29/2022 12:44 Results for this AM SERVICE DESK ASSOCIATE procedure are i n the results section. PROTHROMBIN TIME AM 03/29/2022 12:44 Results for this AM SERVICE DESK ASSOCIATE procedure are i n the results section. MAGNESIUM LEVEL Routine 03/29/2022 12:44 Results for this AM SERVICE DESK ASSOCIATE procedure are i n the results section. PHOSPHORUS LEVEL Routine 03/29/2022 12:44 Results for this AM SERVICE DESK ASSOCIATE procedure are i n the results section. LACTIC ACID, VENOUS Routine 03/29/2022 12:44 Resu lts for this AM SERVICE DESK ASSOCIATE procedure are i n the results section. BASIC METABOLIC PANEL, Routine 03/29/2022 12:44 CALCIUM IONIZED AM SERVICE DESK ASSOCIATE ARTERIAL BLOOD GAS Routine 03/29/2022 12:44 Resul ts for this AM SERVICE DESK ASSOCIATE procedure are i n the results section. POC GLUCOSE SCREEN Routine 03/28/2022 11:26 Resul ts for this PM SERVICE DESK ASSOCIATE procedure are i n the results section. POC GLUCOSE SCREEN Routine 03/28/2022 8:13 Result s for this PM SERVICE DESK ASSOCIATE procedure are i n the results section. OSCILLATORY PEP Routine 03/28/2022 8:00 PM SERVICE DESK ASSOCIATE CALCIUM IONIZED, VENOUS Routine 03/28/2022 5:44 R esults for this PM SERVICE DESK ASSOCIATE procedure are i n the results section. .GLOMERULAR FILTRATION Routine 03/28/2022 5:44 Re sults for this RATE PM SERVICE DESK ASSOCIATE procedure are i n the results section. SERUM CREATININE Routine 03/28/2022 5:44 Results for this PM SERVICE DESK ASSOCIATE procedure are i n the results section. ELECTROLYTE PANEL Routine 03/28/2022 5:44 Results for this PM SERVICE DESK ASSOCIATE procedure are i n the results section. BLOOD UREA NITROGEN Routine 03/28/2022 5:44 Resul ts for this PM SERVICE DESK ASSOCIATE procedure are i n the results section. GLUCOSE LEVEL Routine 03/28/2022 5:44 Results for this PM SERVICE DESK ASSOCIATE procedure are i n the results section. MAGNESIUM LEVEL Routine 03/28/2022 5:44 Results f or this PM SERVICE DESK ASSOCIATE procedure are i n the results section. PHOSPHORUS LEVEL Routine 03/28/2022 5:44 Results for this PM SERVICE DESK ASSOCIATE procedure are i n the results section. LACTIC ACID, VENOUS Routine 03/28/2022 5:44 Resul ts for this PM SERVICE DESK ASSOCIATE procedure are i n the results section. BASIC METABOLIC PANEL, Routine 03/28/2022 5:44 CALCIUM IONIZED PM SERVICE DESK ASSOCIATE ARTERIAL BLOOD GAS Routine 03/28/2022 5:44 Result s for this PM SERVICE DESK ASSOCIATE procedure are i n the results section. POC GLUCOSE SCREEN Routine 03/28/2022 4:56 Result s for this PM SERVICE DESK ASSOCIATE procedure are i n the results section. OSCILLATORY PEP Routine 03/28/2022 4:00 PM SERVICE DESK ASSOCIATE OSCILLATORY PEP Routine 03/28/2022 2:07 PM SERVICE DESK ASSOCIATE OSCILLATORY PEP Routine 03/28/2022 2:07 PM SERVICE DESK ASSOCIATE OSCILLATORY PEP Routine 03/28/2022 2:07 PM SERVICE DESK ASSOCIATE OSCILLATORY PEP Routine 03/28/2022 2:07 PM SERVICE DESK ASSOCIATE ARTERIAL BLOOD GAS STAT 03/28/2022 11:50 Resul ts for this AM SERVICE DESK ASSOCIATE procedure are i n the results section. CALCIUM IONIZED, VENOUS STAT 03/28/2022 11:50 Results for this AM SERVICE DESK ASSOCIATE procedure are i n the results section. VANCOMYCIN LEVEL TROUGH Timed Study 03/28/2022 11:50 Results for this AM SERVICE DESK ASSOCIATE procedure are i n the results section. POC GLUCOSE SCREEN Routine 03/28/2022 11:43 Resul ts for this AM SERVICE DESK ASSOCIATE procedure are i n the results section. .GLOMERULAR FILTRATION Routine 03/28/2022 10:22 R esults for this RATE AM SERVICE DESK ASSOCIATE procedure are i n the results section. SERUM CREATININE Routine 03/28/2022 10:22 Results for this AM SERVICE DESK ASSOCIATE procedure are i n the results section. ELECTROLYTE PANEL Routine 03/28/2022 10:22 Result s for this AM SERVICE DESK ASSOCIATE procedure are i n the results section. BLOOD UREA NITROGEN Routine 03/28/2022 10:22 Resu lts for this AM SERV[employer]K [employer]OCIATE procedure are i n the results section. GLUCOSE LEVEL Routine 03/28/2022 10:22 Results fo r this AM SERV[employer] DESK ASSOCIATE procedure are i n the results section. MAGNESIUM LEVEL Routine 03/28/2022 10:22 Results for this AM SERVICE DESK ASSOCIATE procedure are i n the results section. PHOSPHORUS LEVEL Routine 03/28/2022 10:22 Results for this AM SERVICE DESK ASSOCIATE procedure are i n the results section. BASIC METABOLIC PANEL, Routine 03/28/2022 10:22 CALCIUM IONIZED AM SERVICE DESK ASSOCIATE ECHOCARDIOGRAM 2D Routine 03/28/2022 8:20 Results for this LIMITED - FOLLOW UP AM SERV[employer] DESK [employer]IATE procedur e are in the results section. POC GLUCOSE SCREEN Routine 03/28/2022 5:53 Result s for this AM SERV[employer] DESK ASSOCIATE procedure are i n the results section. XR CHEST 1 VW PORTABLE Routine 03/28/2022 2:30 Re sults for this AM SERV[employer] DESK ASSOCIATE procedure are i n the results section. MANUAL DIFFERENTIAL AM 03/28/2022 12:48 Resu lts for this AM SERVICE DESK ASSOCIATE procedure are i n the results section. Results CBC STAT 03/28/2022 12:48 Results for this AM SERV[employer] DESK ASSOCIATE procedure are i n the results section. FRACTIONATED BILIRUBIN AM 03/28/2022 12:48 R esults for this AM SERV[employer] DESK ASSOCIATE procedure are i n the results section. TOTAL PROTEIN AM 03/28/2022 12:48 Results fo r this AM SERV[employer] DESK ASSOCIATE procedure are i n the results section. ASPARTATE AM 03/28/2022 12:48 Results for this AMINOTRANSFERASE AM SERVICE DESK ASSOCIATE procedure a re in the results section. ALANINE AM 03/28/2022 12:48 Results for this AMINOTRANSFERASE AM SERVICE DESK ASSOCIATE procedure a re in the results section. ALKALINE PHOSPHATASE AM 03/28/2022 12:48 Res ults for this AM SERVICE DESK ASSOCIATE procedure are i n the results section. ALBUMIN LEVEL AM 03/28/2022 12:48 Results fo r this AM SERV[employer] DESK ASSOCIATE procedure are i n the results section. CALCIUM IONIZED, VENOUS Routine 03/28/2022 12:48 Results for this AM SERVICE DESK ASSOCIATE procedure are i n the results section. .GLOMERULAR FILTRATION Routine 03/28/2022 12:48 R esults for this RATE AM [employer] DESK ASSOCIATE procedure are i n the results section. SERUM CREATININE Routine 03/28/2022 12:48 Results for this AM SERV[employer] DESK ASSOCIATE procedure are i n the results section. ELECTROLYTE PANEL Routine 03/28/2022 12:48 Result s for this AM SERV[employer] DESK ASSOCIATE procedure are i n the results section. BLOOD UREA NITROGEN Routine 03/28/2022 12:48 Resu lts for this AM SERVICE DESK ASSOCIATE procedure are i n the results section. GLUCOSE LEVEL Routine 03/28/2022 12:48 Results fo r this AM SERVICE DESK ASSOCIATE procedure are i n the results section. COMPLETE BLOOD COUNT W/ AM 03/28/2022 12:48 DIFFERENTIAL AM SERVICE DESK ASSOCIATE HEPATIC FUNCTION PANEL AM 03/28/2022 12:48 AM SERVICE DESK ASSOCIATE APTT AM 03/28/2022 12:48 Results for this AM SERV[employer] DESK ASSOCIATE procedure are i n the results section. PROTHROMBIN TIME AM 03/28/2022 12:48 Results for this AM SERVICE DESK ASSOCIATE procedure are i n the results section. MAGNESIUM LEVEL Routine 03/28/2022 12:48 Results for this AM SERVICE DESK ASSOCIATE procedure are i n the results section. PHOSPHORUS LEVEL Routine 03/28/2022 12:48 Results for this AM SERVICE DESK ASSOCIATE procedure are i n the results section. LACTIC ACID, VENOUS Routine 03/28/2022 12:48 Resu lts for this AM SERVICE DESK ASSOCIATE procedure are i n the results section. BASIC METABOLIC PANEL, Routine 03/28/2022 12:48 CALCIUM IONIZED AM SERVICE DESK ASSOCIATE ARTERIAL BLOOD GAS Routine 03/28/2022 12:48 Resul ts for this AM SERVICE DESK ASSOCIATE procedure are i n the results section. POC GLUCOSE SCREEN Routine 03/27/2022 11:26 Resul ts for this PM SERVICE DESK ASSOCIATE procedure are i n the results section. POC GLUCOSE SCREEN Routine 03/27/2022 5:38 Result s for this PM SERVICE DESK ASSOCIATE procedure are i n the results section. CALCIUM IONIZED, VENOUS Routine 03/27/2022 5:36 R esults for this PM SERVICE DESK ASSOCIATE procedure are i n the results section. .GLOMERULAR FILTRATION Routine 03/27/2022 5:36 Re sults for this RATE PM SERVICE DESK ASSOCIATE procedure are i n the results section. SERUM CREATININE Routine 03/27/2022 5:36 Results for this PM SERVICE DESK ASSOCIATE procedure are i n the results section. ELECTROLYTE PANEL Routine 03/27/2022 5:36 Results for this PM SERVICE DESK ASSOCIATE procedure are i n the results section. BLOOD UREA NITROGEN Routine 03/27/2022 5:36 Resul ts for this PM SERVICE DESK ASSOCIATE procedure are i n the results section. GLUCOSE LEVEL Routine 03/27/2022 5:36 Results for this PM SERVICE DESK ASSOCIATE procedure are i n the results section. MAGNESIUM LEVEL Routine 03/27/2022 5:36 Results f or this PM SERVICE DESK ASSOCIATE procedure are i n the results section. PHOSPHORUS LEVEL Routine 03/27/2022 5:36 Results for this PM SERVICE DESK ASSOCIATE procedure are i n the results section. LACTIC ACID, VENOUS Routine 03/27/2022 5:36 Resul ts for this PM SERVICE DESK ASSOCIATE procedure are i n the results section. BASIC METABOLIC PANEL, Routine 03/27/2022 5:36 CALCIUM IONIZED PM SERVICE DESK ASSOCIATE ARTERIAL BLOOD GAS Routine 03/27/2022 5:36 Result s for this PM SERVICE DESK ASSOCIATE procedure are i n the results section. US RENAL STAT 03/27/2022 3:52 Results for this PM [employer]ICE DESK ASSOCIATE procedure are i n the results section. POC GLUCOSE SCREEN Routine 03/27/2022 11:47 Resul ts for this AM SERVICE DESK ASSOCIATE procedure are i n the results section. CALCIUM IONIZED, VENOUS Routine 03/27/2022 10:19 Results for this AM SERVICE DESK ASSOCIATE procedure are i n the results section. .GLOMERULAR FILTRATION Routine 03/27/2022 10:19 R esults for this RATE AM SERV[employer] DESK ASSOCIATE procedure are i n the results section. SERUM CREATININE Routine 03/27/2022 10:19 Results for this AM SERVICE DESK ASSOCIATE procedure are i n the results section. ELECTROLYTE PANEL Routine 03/27/2022 10:19 Result s for this AM SERVICE DESK ASSOCIATE procedure are i n the results section. BLOOD UREA NITROGEN Routine 03/27/2022 10:19 Resu lts for this AM SERVICE DESK ASSOCIATE procedure are i n the results section. GLUCOSE LEVEL Routine 03/27/2022 10:19 Results fo r this AM SERVICE DESK ASSOCIATE procedure are i n the results section. MAGNESIUM LEVEL Routine 03/27/2022 10:19 Results for this AM SERVICE DESK ASSOCIATE procedure are i n the results section. PHOSPHORUS LEVEL Routine 03/27/2022 10:19 Results for this AM SERVICE DESK ASSOCIATE procedure are i n the results section. LACTIC ACID, VENOUS Routine 03/27/2022 10:19 Resu lts for this AM SERVICE DESK ASSOCIATE procedure are i n the results section. BASIC METABOLIC PANEL, Routine 03/27/2022 10:19 CALCIUM IONIZED AM SERVICE DESK ASSOCIATE ARTERIAL BLOOD GAS Routine 03/27/2022 10:19 Resul ts for this AM SERVICE DESK ASSOCIATE procedure are i n the results section. ARTERIAL BLOOD GAS Timed Study 03/27/2022 8:32 Result s for this AM SERVICE DESK ASSOCIATE procedure are i n the results section. POC GLUCOSE SCREEN Routine 03/27/2022 7:27 Result s for this AM SERVICE DESK ASSOCIATE procedure are i n the results section. POC GLUCOSE SCREEN Routine 03/27/2022 5:52 Result s for this AM SERVICE DESK ASSOCIATE procedure are i n the results section. POC GLUCOSE SCREEN Routine 03/27/2022 4:58 Result s for this AM SERVICE DESK ASSOCIATE procedure are i n the results section. POC GLUCOSE SCREEN Routine 03/27/2022 4:06 Result s for this AM SERVICE DESK ASSOCIATE procedure are i n the results section. VANCOMYCIN LEVEL TROUGH Timed Study 03/27/2022 3:30 R esults for this AM SERVICE DESK ASSOCIATE procedure are i n the results section. POC GLUCOSE SCREEN Routine 03/27/2022 3:06 Result s for this AM SERVICE DESK ASSOCIATE procedure are i n the results section. XR CHEST 1 VW PORTABLE Routine 03/27/2022 2:50 Re sults for this AM SERVICE DESK ASSOCIATE procedure are i n the results section. MANUAL DIFFERENTIAL STAT 03/27/2022 2:16 Resul ts for this AM SERVICE DESK ASSOCIATE procedure are i n the results section. Results CBC STAT 03/27/2022 2:16 Results for this AM SERVICE DESK ASSOCIATE procedure are i n the results section. COMPLETE BLOOD COUNT W/ AM 03/27/2022 2:16 DIFFERENTIAL AM SERVICE DESK ASSOCIATE POC GLUCOSE SCREEN Routine 03/27/2022 2:03 Result s for this AM SERVICE DESK ASSOCIATE procedure are i n the results section. FRACTIONATED BILIRUBIN AM 03/27/2022 1:36 Re sults for this AM SERVICE DESK ASSOCIATE procedure are i n the results section. TOTAL PROTEIN AM 03/27/2022 1:36 Results for this AM SERVICE DESK ASSOCIATE procedure are i n the results section. ASPARTATE AM 03/27/2022 1:36 Results for this AMINOTRANSFERASE AM SERVICE DESK ASSOCIATE procedure a re in the results section. ALANINE AM 03/27/2022 1:36 Results for this AMINOTRANSFERASE AM SERVICE DESK ASSOCIATE procedure a re in the results section. ALKALINE PHOSPHATASE AM 03/27/2022 1:36 Resu lts for this AM SERVICE DESK ASSOCIATE procedure are i n the results section. ALBUMIN LEVEL AM 03/27/2022 1:36 Results for this AM SERVICE DESK ASSOCIATE procedure are i n the results section. CALCIUM IONIZED, VENOUS Routine 03/27/2022 1:36 R esults for this AM SERVICE DESK ASSOCIATE procedure are i n the results section. .GLOMERULAR FILTRATION Routine 03/27/2022 1:36 Re sults for this RATE AM SERVICE DESK ASSOCIATE procedure are i n the results section. SERUM CREATININE Routine 03/27/2022 1:36 Results for this AM SERVICE DESK ASSOCIATE procedure are i n the results section. ELECTROLYTE PANEL Routine 03/27/2022 1:36 Results for this AM SERVICE DESK ASSOCIATE procedure are i n the results section. BLOOD UREA NITROGEN Routine 03/27/2022 1:36 Resul ts for this AM SERVICE DESK ASSOCIATE procedure are i n the results section. GLUCOSE LEVEL Routine 03/27/2022 1:36 Results for this AM SERVICE DESK ASSOCIATE procedure are i n the results section. HEPATIC FUNCTION PANEL AM 03/27/2022 1:36 AM SERVICE DESK ASSOCIATE APTT AM 03/27/2022 1:36 Results for this AM SERVICE DESK ASSOCIATE procedure are i n the results section. PROTHROMBIN TIME AM 03/27/2022 1:36 Results for this AM SERVICE DESK ASSOCIATE procedure are i n the results section. MAGNESIUM LEVEL Routine 03/27/2022 1:36 Results f or this AM SERVICE DESK ASSOCIATE procedure are i n the results section. PHOSPHORUS LEVEL Routine 03/27/2022 1:36 Results for this AM SERVICE DESK ASSOCIATE procedure are i n the results section. LACTIC ACID, VENOUS Routine 03/27/2022 1:36 Resul ts for this AM SERVICE DESK ASSOCIATE procedure are i n the results section. BASIC METABOLIC PANEL, Routine 03/27/2022 1:36 CALCIUM IONIZED AM SERVICE DESK ASSOCIATE ARTERIAL BLOOD GAS Routine 03/27/2022 1:36 Result s for this AM SERVICE DESK ASSOCIATE procedure are i n the results section. CARDIAC PANEL Timed Study 03/27/2022 1:36 Results for this AM SERVICE DESK ASSOCIATE procedure are i n the results section. POC GLUCOSE SCREEN Routine 03/27/2022 1:03 Result s for this AM SERVICE DESK ASSOCIATE procedure are i n the results section. POC GLUCOSE SCREEN Routine 03/26/2022 11:49 Resul ts for this PM SERVICE DESK ASSOCIATE procedure are i n the results section. POC GLUCOSE SCREEN Routine 03/26/2022 10:33 Resul ts for this PM SERVICE DESK ASSOCIATE procedure are i n the results section. POC GLUCOSE SCREEN Routine 03/26/2022 9:30 Result s for this PM SERVICE DESK ASSOCIATE procedure are i n the results section. POC GLUCOSE SCREEN Routine 03/26/2022 8:33 Result s for this PM SERVICE DESK ASSOCIATE procedure are i n the results section. POC GLUCOSE SCREEN Routine 03/26/2022 7:33 Result s for this PM SERVICE DESK ASSOCIATE procedure are i n the results section. POC GLUCOSE SCREEN Routine 03/26/2022 6:35 Result s for this PM SERVICE DESK ASSOCIATE procedure are i n the results section. CALCIUM IONIZED, VENOUS Routine 03/26/2022 5:20 R esults for this PM SERVICE DESK ASSOCIATE procedure are i n the results section. .GLOMERULAR FILTRATION Routine 03/26/2022 5:20 Re sults for this RATE PM SERVICE DESK ASSOCIATE procedure are i n the results section. SERUM CREATININE Routine 03/26/2022 5:20 Results for this PM SERVICE DESK ASSOCIATE procedure are i n the results section. ELECTROLYTE PANEL Routine 03/26/2022 5:20 Results for this PM SERVICE DESK ASSOCIATE procedure are i n the results section. BLOOD UREA NITROGEN Routine 03/26/2022 5:20 Resul ts for this PM SERVICE DESK ASSOCIATE procedure are i n the results section. GLUCOSE LEVEL Routine 03/26/2022 5:20 Results for this PM SERVICE DESK ASSOCIATE procedure are i n the results section. MAGNESIUM LEVEL Routine 03/26/2022 5:20 Results f or this PM SERVICE DESK ASSOCIATE procedure are i n the results section. PHOSPHORUS LEVEL Routine 03/26/2022 5:20 Results for this PM SERVICE DESK ASSOCIATE procedure are i n the results section. LACTIC ACID, VENOUS Routine 03/26/2022 5:20 Resul ts for this PM SERVICE DESK ASSOCIATE procedure are i n the results section. BASIC METABOLIC PANEL, Routine 03/26/2022 5:20 CALCIUM IONIZED PM SERVICE DESK ASSOCIATE ARTERIAL BLOOD GAS Routine 03/26/2022 5:20 Result s for this PM SERVICE DESK ASSOCIATE procedure are i n the results section. POC GLUCOSE SCREEN Routine 03/26/2022 4:10 Result s for this PM SERVICE DESK ASSOCIATE procedure are i n the results section. ARTERIAL BLOOD GAS STAT 03/26/2022 3:50 Result s for this PM SERVICE DESK ASSOCIATE procedure are i n the results section. CARDIAC PANEL Timed Study 03/26/2022 3:50 Results for this PM SERVICE DESK ASSOCIATE procedure are i n the results section. POC GLUCOSE SCREEN Routine 03/26/2022 3:06 Result s for this PM SERVICE DESK ASSOCIATE procedure are i n the results section. POC GLUCOSE SCREEN Routine 03/26/2022 2:02 Result s for this PM SERVICE DESK ASSOCIATE procedure are i n the results section. LACTIC ACID, VENOUS STAT 03/26/2022 1:31 Resul ts for this PM SERVICE DESK ASSOCIATE procedure are i n the results section. PROCALCITONIN STAT 03/26/2022 1:31 Results for this PM SERVICE DESK ASSOCIATE procedure are i n the results section. C REACTIVE PROTEIN STAT 03/26/2022 1:31 Result s for this PM SERVICE DESK ASSOCIATE procedure are i n the results section. ANCA PANEL FOR STAT 03/26/2022 1:31 Results fo r this VASCULITIS, SERUM PM [employer] DESK ASSOCIATE procedure are in the results section. SEDIMENTATION RATE STAT 03/26/2022 1:31 Result s for this NON-AUTOMATED PM [employer] DESK ASSOCIATE procedure are in the results section. ANTINUCLEAR ANTIBODY STAT 03/26/2022 1:31 Resu lts for this HEP-2 SUBSTRATE IGG PM [employer]K [employer]OCIATE procedur e are in the results section. BLOODCULTURE Routine 03/26/2022 1:31 Results for this PM SERVICE DESK ASSOCIATE procedure are i n the results section. BLOODCULTURE Routine 03/26/2022 1:31 Results for this PM SERVICE DESK ASSOCIATE procedure are i n the results section. VANCOMYCIN LEVEL TROUGH Timed Study 03/26/2022 12:24 Results for this PM [employer]ICE DESK ASSOCIATE procedure are i n the results section. ECHOCARDIOGRAM 2D STAT 03/26/2022 12:19 Result s for this COMPLETE W CONTRAST PM [employer]OCIATE procedur e are in the results section. PROCEDURE FOR CODING Routine 03/26/2022 11:37 Acute respirator y Results for this AM SERV[employer]K ASSOCIATE failure with procedure are i n hypoxia the results Cardiac arrest, section. not otherwise specified STREPTOCOCCAL URINE Routine 03/26/2022 11:23 Resu lts for this ANTIGEN PATH REVIEW AM [employer]K ASSOCIATE procedur e are in the results section. LEGIONELLA URINE Routine 03/26/2022 11:23 Results for this ANTIGEN PATH REVIEW AM SERVICE DESK ASSOCIATE procedur e are in the results section. MRSA SCREENING CULTURE Routine 03/26/2022 11:23 R esults for this AM SERVICE DESK ASSOCIATE procedure are i n the results section. LEGIONELLA ANTIGEN, Routine 03/26/2022 11:23 Resu lts for this URINE AM SERVICE DESK ASSOCIATE procedure are i n the results section. STREPTOCOCCUS Routine 03/26/2022 11:23 Results fo r this PNEUMONIAE ANTIGEN, AM SERVICE DESK ASSOCIATE procedur e are in URINE the results section. POC GLUCOSE SCREEN Routine 03/26/2022 11:21 Resul ts for this AM SERVICE DESK ASSOCIATE procedure are i n the results section. APTT STAT 03/26/2022 11:01 Results for this AM SERVICE DESK ASSOCIATE procedure are i n the results section. FIBRINOGEN ACTIVITY STAT 03/26/2022 11:01 Resu lts for this AM SERVICE DESK ASSOCIATE procedure are i n the results section. PROTHROMBIN TIME STAT 03/26/2022 11:01 Results for this AM SERVICE DESK ASSOCIATE procedure are i n the results section. ARTERIAL BLOOD GAS STAT 03/26/2022 11:01 Resul ts for this AM SERVICE DESK ASSOCIATE procedure are i n the results section. HC ARTERIAL LINE FOR BP Routine 03/26/2022 10:45 Acute respira tory Results for this MON AM [employer]K [employer]OCIATE failure with procedure are i n hypoxia the results Cardiac arrest, section. not otherwise specified MS ARTL CATHJ/CANNULJ Routine 03/26/2022 10:45 Acute respirato ry Results for this MNTR/TRANSFUSION SPX AM SERV[employer] DESK ASSOCIATE failure with procedu re are in PRQ hypoxia the results Cardiac arrest, section. not otherwise specified XR CHEST 1 VW STAT 03/26/2022 10:27 Results fo r this AM SERV[employer] DESK ASSOCIATE procedure are i n the results section. HEWITT MISC TEST Routine 03/26/2022 10:24 Results f or this AM SERVICE DESK ASSOCIATE procedure are i n the results section. BLOOD UREA NITROGEN STAT 03/26/2022 10:24 Resu lts for this AM SERVICE DESK ASSOCIATE procedure are i n the results section. CALCIUM IONIZED, VENOUS STAT 03/26/2022 10:24 Results for this AM SERVICE DESK ASSOCIATE procedure are i n the results section. .GLOMERULAR FILTRATION STAT 03/26/2022 10:24 R esults for this RATE AM SERVICE DESK ASSOCIATE procedure are i n the results section. SERUM CREATININE STAT 03/26/2022 10:24 Results for this AM SERVICE DESK ASSOCIATE procedure are i n the results section. ELECTROLYTE PANEL STAT 03/26/2022 10:24 Result s for this AM SERVICE DESK ASSOCIATE procedure are i n the results section. GLUCOSE LEVEL STAT 03/26/2022 10:24 Results fo r this AM SERVICE DESK ASSOCIATE procedure are i n the results section. NT PRO BNP Routine 03/26/2022 10:24 Results for this AM SERVICE DESK ASSOCIATE procedure are i n the results section. CARDIAC PANEL Timed Study 03/26/2022 10:24 Results fo r this AM SERVICE DESK ASSOCIATE procedure are i n the results section. PHOSPHORUS LEVEL STAT 03/26/2022 10:24 Results for this AM SERVICE DESK ASSOCIATE procedure are i n the results section. MAGNESIUM LEVEL STAT 03/26/2022 10:24 Results for this AM SERVICE DESK ASSOCIATE procedure are i n the results section. BASIC METABOLIC PANEL, STAT 03/26/2022 10:24 CALCIUM IONIZED AM SERVICE DESK ASSOCIATE LEGIONELLA CULTURE Routine 03/26/2022 10:17 Resul ts for this AM SERVICE DESK ASSOCIATE procedure are i n the results section. POC CHEM 8 Routine 03/26/2022 10:01 Results for this AM SERVICE DESK ASSOCIATE procedure are i n the results section. POC ARTERIAL BLOOD GAS Routine 03/26/2022 9:55 Re sults for this AM SERVICE DESK ASSOCIATE procedure are i n the results section. POC CRITICAL Routine 03/26/2022 9:55 Results for this AM SERVICE DESK ASSOCIATE procedure are i n the results section. AFB CULTURE W/ SMEAR Routine 03/26/2022 9:36 Resu lts for this AM SERVICE DESK ASSOCIATE procedure are i n the results section. FUNGUS CULTURE Routine 03/26/2022 9:36 Results fo r this AM SERVICE DESK ASSOCIATE procedure are i n the results section. LOWER RESPIRATORY Routine 03/26/2022 9:36 Results for this CULTURE W/ GRAM STAIN AM SERV[employer] DESK ASSOCIATE proced ure are in the results section. GENERAL LABORATORY ADD Routine 03/26/2022 9:23 Re sults for this ON TEST AM SERVICE DESK ASSOCIATE procedure are i n the results section. POC ARTERIAL BLOOD GAS Routine 03/26/2022 9:12 Re sults for this AM SERVICE DESK ASSOCIATE procedure are i n the results section. POC CRITICAL Routine 03/26/2022 9:12 Results for this AM SERVICE DESK ASSOCIATE procedure are i n the results section. POC CRITICAL Routine 03/26/2022 9:12 Results for this AM SERVICE DESK ASSOCIATE procedure are i n the results section. CT CHEST PULMONARY STAT 03/26/2022 8:42 Result s for this EMBOLISM W CONTRAST AM [employer]K [employer]OCIATE procedur e are in the results section. ARTERIAL BLOOD GAS Routine 03/26/2022 8:06 Result s for this AM SERVICE DESK ASSOCIATE procedure are i n the results section. ARTERIAL BLOOD GAS STAT 03/26/2022 5:33 Result s for this AM SERVICE DESK ASSOCIATE procedure are i n the results section. VENOUS BLOOD GAS STAT 03/26/2022 5:28 Results for this AM SERVICE DESK ASSOCIATE procedure are i n the results section. C-PEPTIDE AM 03/26/2022 12:25 Results for this AM SERVICE DESK ASSOCIATE procedure are i n the results section. CARDIAC PANEL AM 03/26/2022 12:25 Results fo r this AM SERVICE DESK ASSOCIATE procedure are i n the results section. NT PRO BNP AM 03/26/2022 12:25 Results for this AM SERVICE DESK ASSOCIATE procedure are i n the results section. MANUAL DIFFERENTIAL AM 03/26/2022 12:25 Resu lts for this AM SERVICE DESK ASSOCIATE procedure are i n the results section. Results CBC AM 03/26/2022 12:25 Results for this AM SERVICE DESK ASSOCIATE procedure are i n the results section. CALCIUM LEVEL TOTAL AM 03/26/2022 12:25 Resu lts for this AM SERVICE DESK ASSOCIATE procedure are i n the results section. .GLOMERULAR FILTRATION AM 03/26/2022 12:25 R esults for this RATE AM SERVICE DESK ASSOCIATE procedure are i n the results section. SERUM CREATININE AM 03/26/2022 12:25 Results for this AM SERVICE DESK ASSOCIATE procedure are i n the results section. ELECTROLYTE PANEL AM 03/26/2022 12:25 Result s for this AM SERVICE DESK ASSOCIATE procedure are i n the results section. BLOOD UREA NITROGEN AM 03/26/2022 12:25 Resu lts for this AM SERVICE DESK ASSOCIATE procedure are i n the results section. GLUCOSE LEVEL AM 03/26/2022 12:25 Results fo r this AM SERVICE DESK ASSOCIATE procedure are i n the results section. LACTIC ACID, VENOUS STAT 03/26/2022 12:25 Resu lts for this AM SERVICE DESK ASSOCIATE procedure are i n the results section. PHOSPHORUS LEVEL AM 03/26/2022 12:25 Results for this AM SERVICE DESK ASSOCIATE procedure are i n the results section. MAGNESIUM LEVEL AM 03/26/2022 12:25 Results for this AM SERVICE DESK ASSOCIATE procedure are i n the results section. COMPLETE BLOOD COUNT W/ AM 03/26/2022 12:25 DIFFERENTIAL AM SERVICE DESK ASSOCIATE BASIC METABOLIC PANEL, AM 03/26/2022 12:25 CALCIUM TOTAL AM SERVICE DESK ASSOCIATE BLOODCULTURE Routine 03/26/2022 12:25 Results for this AM SERVICE DESK ASSOCIATE procedure are i n the results section. XR CHEST 1 VW PORTABLE STAT 03/26/2022 12:01 R esults for this AM SERV[employer] DESK ASSOCIATE procedure are i n the results section. EKG, 12-LEAD (PORTABLE) STAT 03/26/2022 EKG, 12-LEAD (PORTABLE) STAT 03/26/2022 EKG, 12-LEAD (PORTABLE) STAT 03/26/2022 POC GLUCOSE SCREEN Routine 03/25/2022 10:09 Resul ts for this PM [employer] DESK ASSOCIATE procedure are i n the results section. POC GLUCOSE SCREEN Routine 03/25/2022 7:07 Result s for this PM SERVICE DESK ASSOCIATE procedure are i n the results section. POC GLUCOSE SCREEN Routine 03/25/2022 3:46 Result s for this PM SERVICE DESK ASSOCIATE procedure are i n the results section. POC GLUCOSE SCREEN Routine 03/25/2022 2:05 Result s for this PM SERVICE DESK ASSOCIATE procedure are i n the results section. US RENAL STAT 03/25/2022 10:19 Results for this AM SERVICE DESK ASSOCIATE procedure are i n the results section. POC GLUCOSE SCREEN Routine 03/25/2022 9:08 Result s for this AM SERVICE DESK ASSOCIATE procedure are i n the results section. GENERAL LABORATORY ADD STAT 03/25/2022 7:20 Re sults for this ON TEST AM SERV[employer] DESK ASSOCIATE procedure are i n the results section. PHOSPHORUS LEVEL Routine 03/25/2022 4:45 Results for this AM SERVICE DESK ASSOCIATE procedure are i n the results section. MAGNESIUM LEVEL Routine 03/25/2022 4:45 Results f or this AM SERVICE DESK ASSOCIATE procedure are i n the results section. CALCIUM LEVEL TOTAL Routine 03/25/2022 4:45 Resul ts for this AM SERVICE DESK ASSOCIATE procedure are i n the results section. .GLOMERULAR FILTRATION Routine 03/25/2022 4:45 Re sults for this RATE AM SERVICE DESK ASSOCIATE procedure are i n the results section. SERUM CREATININE Routine 03/25/2022 4:45 Results for this AM SERVICE DESK ASSOCIATE procedure are i n the results section. ELECTROLYTE PANEL Routine 03/25/2022 4:45 Results for this AM SERVICE DESK ASSOCIATE procedure are i n the results section. BLOOD UREA NITROGEN Routine 03/25/2022 4:45 Resul ts for this AM SERVICE DESK ASSOCIATE procedure are i n the results section. GLUCOSE LEVEL Routine 03/25/2022 4:45 Results for this AM SERVICE DESK ASSOCIATE procedure are i n the results section. BASIC METABOLIC PANEL, Routine 03/25/2022 4:45 CALCIUM TOTAL AM SERVICE DESK ASSOCIATE POC GLUCOSE SCREEN Routine 03/25/2022 4:35 Result s for this AM SERVICE DESK ASSOCIATE procedure are i n the results section. POC ICON 20 URINE Routine 03/25/2022 1:24 Results for this TEST AM SERVICE DESK ASSOCIATE procedure are in the results section. URINALYSIS MICROSCOPIC Routine 03/25/2022 12:36 R esults for this EXAM AM SERVICE DESK ASSOCIATE procedure are i n the results section. URINALYSIS WITH Routine 03/25/2022 12:36 Results for this MICROSCOPIC IF AM SERVICE DESK ASSOCIATE procedure are in INDICATED the results section. URINE CULTURE STAT 03/25/2022 12:36 Results fo r this AM SERVICE DESK ASSOCIATE procedure are i n the results section. EKG, 12-LEAD (PORTABLE) Routine 03/25/2022 XR CHEST 1 VW STAT 03/24/2022 11:57 Results fo r this PM SERVICE DESK ASSOCIATE procedure are i n the results section. CONFIRM ABORH TYPE STAT 03/24/2022 11:29 Resul ts for this PM SERVICE DESK ASSOCIATE procedure are i n the results section. POC VENOUS BLOOD GAS + Routine 03/24/2022 11:18 R esults for this LACTATE PM SERVICE DESK ASSOCIATE procedure are i n the results section. CLOT EXPIRATION DATE STAT 03/24/2022 11:10 Res ults for this PM SERVICE DESK ASSOCIATE procedure are i n the results section. TMP INTERPRETATION STAT 03/24/2022 11:10 Resul ts for this ANTIBODY SCREEN PM SERVICE DESK ASSOCIATE procedure ar e in NEGATIVE the results section. ANTIBODY SCREEN STAT 03/24/2022 11:10 Results for this PM SERVICE DESK ASSOCIATE procedure are i n the results section. ABORH STAT 03/24/2022 11:10 Results for this PM SERVICE DESK ASSOCIATE procedure are i n the results section. FRACTIONATED BILIRUBIN STAT 03/24/2022 11:10 R esults for this PM SERVICE DESK ASSOCIATE procedure are i n the results section. TOTAL PROTEIN STAT 03/24/2022 11:10 Results fo r this PM SERVICE DESK ASSOCIATE procedure are i n the results section. ASPARTATE STAT 03/24/2022 11:10 Results for this AMINOTRANSFERASE PM SERVICE DESK ASSOCIATE procedure a re in the results section. ALANINE STAT 03/24/2022 11:10 Results for this AMINOTRANSFERASE PM SERVICE DESK ASSOCIATE procedure a re in the results section. ALKALINE PHOSPHATASE STAT 03/24/2022 11:10 Res ults for this PM SERVICE DESK ASSOCIATE procedure are i n the results section. ALBUMIN LEVEL STAT 03/24/2022 11:10 Results fo r this PM SERVICE DESK ASSOCIATE procedure are i n the results section. CALCIUM LEVEL TOTAL STAT 03/24/2022 11:10 Resu lts for this PM SERVICE DESK ASSOCIATE procedure are i n the results section. .GLOMERULAR FILTRATION STAT 03/24/2022 11:10 R esults for this RATE PM SERVICE DESK ASSOCIATE procedure are i n the results section. SERUM CREATININE STAT 03/24/2022 11:10 Results for this PM SERVICE DESK ASSOCIATE procedure are i n the results section. ELECTROLYTE PANEL STAT 03/24/2022 11:10 Result s for this PM SERVICE DESK ASSOCIATE procedure are i n the results section. BLOOD UREA NITROGEN STAT 03/24/2022 11:10 Resu lts for this PM SERVICE DESK ASSOCIATE procedure are i n the results section. GLUCOSE LEVEL STAT 03/24/2022 11:10 Results fo r this PM SERVICE DESK ASSOCIATE procedure are i n the results section. MANUAL DIFFERENTIAL STAT 03/24/2022 11:10 Resu lts for this PM SERVICE DESK ASSOCIATE procedure are i n the results section. Results CBC STAT 03/24/2022 11:10 Results for this PM SERVICE DESK ASSOCIATE procedure are i n the results section. C REACTIVE PROTEIN Routine 03/24/2022 11:10 Resul ts for this PM SERVICE DESK ASSOCIATE procedure are i n the results section. LACTATE DEHYDROGENASE Routine 03/24/2022 11:10 Re sults for this PM SERVICE DESK ASSOCIATE procedure are i n the results section. FRACTIONATED BILIRUBIN Routine 03/24/2022 11:10 R esults for this PM SERVICE DESK ASSOCIATE procedure are i n the results section. PROCALCITONIN STAT 03/24/2022 11:10 Results fo r this PM SERVICE DESK ASSOCIATE procedure are i n the results section. TYPE AND SCREEN STAT 03/24/2022 11:10 PM SERVICE DESK ASSOCIATE APTT STAT 03/24/2022 11:10 Results for this PM SERVICE DESK ASSOCIATE procedure are i n the results section. PROTHROMBIN TIME STAT 03/24/2022 11:10 Results for this PM SERVICE DESK ASSOCIATE procedure are i n the results section. PHOSPHORUS LEVEL STAT 03/24/2022 11:10 Results for this PM SERVICE DESK ASSOCIATE procedure are i n the results section. MAGNESIUM LEVEL STAT 03/24/2022 11:10 Results for this PM SERVICE DESK ASSOCIATE procedure are i n the results section. COMPREHENSIVE METABOLIC STAT 03/24/2022 11:10 PANEL PM SERVICE DESK ASSOCIATE COMPLETE BLOOD COUNT W/ STAT 03/24/2022 11:10 DIFFERENTIAL PM SERVICE DESK ASSOCIATE RESPIRATORY MULTIPLEX Routine 03/24/2022 11:10 Re sults for this PCR PANEL, PM SERVICE DESK ASSOCIATE procedure are i n NASOPHARYNGEAL SWAB the resu lts section. BLOODCULTURE STAT 03/24/2022 11:10 Results for this PM SERVICE DESK ASSOCIATE procedure are i n the results section. POC GLUCOSE SCREEN Routine 03/24/2022 10:44 Resul ts for this PM SERVICE DESK ASSOCIATE procedure are i n the results section. OSI CT ABDOMEN AND Routine 03/24/2022 4:15 Cancer Result s for this PELVIS PM SERVICE DESK ASSOCIATE procedure are i n the results section. MRI THORACIC SPINE W WO Routine 03/14/2022 6:31 Malignant neop lasm Results for this CONTRAST PM SERVICE DESK ASSOCIATE of thyroid gland procedure a re in the results section. COVID-19 (SARS-COV-2) Routine 03/13/2022 2:16 Suspected COVID- 19 Results for this PCR - ASYMPTOMATIC - MC PM SERVICE DESK ASSOCIATE proc edure are in the results section. US HEAD NECK SOFT Routine 03/13/2022 2:05 Malignant neoplasm R esults for this TISSUE PM SERVICE DESK ASSOCIATE of thyroid gland procedure a re in the results section. MANUAL DIFFERENTIAL Routine 03/13/2022 12:30 Malignant neoplas m Results for this PM SERVICE DESK ASSOCIATE of thyroid gland procedure a re in the results section. Results CBC Routine 03/13/2022 12:30 Malignant neoplasm Resul ts for this PM SERVICE DESK ASSOCIATE of thyroid gland procedure a re in the results section. .GLOMERULAR FILTRATION Routine 03/13/2022 12:30 Malignant neop lasm Results for this RATE PM SERVICE DESK ASSOCIATE of thyroid gland procedure a re in the results section. SERUM CREATININE Routine 03/13/2022 12:30 Malignant neoplasm R esults for this PM SERVICE DESK ASSOCIATE of thyroid gland procedure a re in the results section. ELECTROLYTE PANEL Routine 03/13/2022 12:30 Malignant neoplasm Results for this PM SERVICE DESK ASSOCIATE of thyroid gland procedure a re in the results section. VITAMIN D 25 HYDROXY Routine 03/13/2022 12:30 Malignant neopla sm Results for this LEVEL PM SERVICE DESK ASSOCIATE of thyroid gland procedure a re in the results section. THYROID STIMULATING Routine 03/13/2022 12:30 Malignant neoplas m Results for this HORMONE PM SERVICE DESK ASSOCIATE of thyroid gland procedure a re in the results section. THYROGLOBULIN ANTIBODY Routine 03/13/2022 12:30 Malignant neop lasm Results for this PM SERVICE DESK ASSOCIATE of thyroid gland procedure a re in the results section. PHOSPHORUS LEVEL Routine 03/13/2022 12:30 Malignant neoplasm R esults for this PM SERVICE DESK ASSOCIATE of thyroid gland procedure a re in the results section. APTT Routine 03/13/2022 12:30 Malignant neoplasm Resul ts for this PM SERVICE DESK ASSOCIATE of thyroid gland procedure a re in the results section. PROTHROMBIN TIME Routine 03/13/2022 12:30 Malignant neoplasm R esults for this PM SERVICE DESK ASSOCIATE of thyroid gland procedure a re in the results section. PTH INTACT Routine 03/13/2022 12:30 Malignant neoplasm Resul ts for this PM SERVICE DESK ASSOCIATE of thyroid gland procedure a re in the results section. MAGNESIUM LEVEL Routine 03/13/2022 12:30 Malignant neoplasm Re sults for this PM SERVICE DESK ASSOCIATE of thyroid gland procedure a re in the results section. FREE THYROXINE Routine 03/13/2022 12:30 Malignant neoplasm Res ults for this PM SERVICE DESK ASSOCIATE of thyroid gland procedure a re in the results section. SERUM CREATININE Routine 03/13/2022 12:30 Malignant neoplasm PM SERVICE DESK ASSOCIATE of thyroid gland COMPLETE BLOOD COUNT W/ Routine 03/13/2022 12:30 Malignant linda plasm DIFFERENTIAL PM SERVICE DESK ASSOCIATE of thyroid gland CALCIUM LEVEL TOTAL Routine 03/13/2022 12:30 Malignant neoplas m Results for this PM SERVICE DESK ASSOCIATE of thyroid gland procedure a re in the results section. BLOOD UREA NITROGEN Routine 03/13/2022 12:30 Malignant neoplas m Results for this PM SERVICE DESK ASSOCIATE of thyroid gland procedure a re in the results section. ALBUMIN LEVEL Routine 03/13/2022 12:30 Malignant neoplasm Resu lts for this PM SERVICE DESK ASSOCIATE of thyroid gland procedure a re in the results section. HEPATITIS C VIRUS AB Routine 03/13/2022 12:30 Malignant neopla sm Results for this SCREEN W/REFLEX HCV PCR PM SERVICE DESK ASSOCIATE of thyroid gland procedure are in the results section. OSI US THYROID Routine 01/30/2022 1:11 Cancer Results fo r this PM SERVICE DESK ASSOCIATE procedure are i n the results section. after 10/06/2021 Results Echocardiogram 2D Complete (07/26/2022 11:17 AM CDT) P athologist Signature EF 63 ISCV Specimen (Source) Anatomical Collection Method Collection [...] imaginD volumes were not performed in this [facility]. Cardiac Mechanics/Speckle Tracking Imagi ng: Abnormal global [...] imaginD volumes were not performed in this [facility]. Cardiac Mechanics/Speckle Tracking Imagi ng: Abnormal global [...] EDV(MOD-A2C): 65.3 ml ESV(MOD-A2C): 23.1 ml EDV(MOD-bp): 6 2.3 ml EF(MOD-A2C): 64.7 % ESV(MOD-bp): 23. 2 [...] dec time: 0.11 sec Ao V2 max: 10 9.1 cm/sec Ao max P.8 mmHg Ao V2 mean: 76.8 cm/sec Ao mean P.7 mmHg Ao V2 VTI: 17.2 cm NADEEM(I,D): 2.8 cm2 NADEEM(V,D): 2.9 cm2 LV V1 max P.4 mmHg SV(LVOT): 48 .8 ml LV V1 mean P.0 mmHg LV [...] Address City/State/ZIP Code Phon e Number ISCV (ABNORMAL) .Serum Creatinine (07/26/2022 10:26 AM CDT)Only the most recent of20 resultswithin the time period is included. athologist Signature Creatinine 0.35 (L) 0.51 - [facility] 0.95 mg/dL DIAGNOSTIC CENTER Specimen Anatomical Collection Method Collection Time Receive d Time (Source) Location / / Volume Laterality Blood 07/26/2022 10:26 07/26/2022 AM CDT 10:35 AM CDT Megan Kapadia MD LAB BLOOD ORDERABLES Performing Organization Address City/[facility]/ZIP Code Phon e Number [facility] DIAGNOSTIC Unless otherwise noted, [place], [place] [address] CENTER all lab tests performed by: Division of Pathology and Laboratory Medicine [address] (ABNORMAL) .CBC (07/26/2022 10:26 AM CDT)Only the most recent of11 resultswithin the time period is included. Analysis Performed At Patho logist Time Signature WBC 5.9 4.0 - 11.0 [facility] K/uL DIAGNOSTIC CENTER RBC 4.94 4.00 - [facility] 5.50 M/uL DIAGNOSTIC CENTER Hgb 12.8 12.0 - [facility] 16.0 gm/dL DIAGNOSTIC CENTER Hct 39.1 37.0 - [facility] 47.0 % DIAGNOSTIC CENTER MCV 79 (L) 82 - 98 fL [facility] DIAGNOSTIC CENTER MCH 25.9 (L) 27.0 - [facility] 31.0 pg DIAGNOSTIC CENTER MCHC 32.7 31.0 - [facility] 36.0 gm/dL DIAGNOSTIC CENTER RDW-SD 38.0 35.1 - [facility] 46.3 fL DIAGNOSTIC CENTER RDW-CV 13.3 12.0 - [facility] 15.5 % DIAGNOSTIC CENTER Platelet count 361 140 - 440 [facility] K/uL DIAGNOSTIC CENTER MPV 9.6 4.0 - 10.4 [facility] DIAGNOSTIC CENTER INRBC 0.0 <=0.0 % [facility] Comment: The INRBC (instrument NRBC) value [...] Organization Address City/State/ZIP Code Phon e Number [facility] DIAGNOSTIC Unless otherwise noted, [place], [place] [address] CENTER all lab tests performed by: Division of Pathology and Laboratory Medicine [address] [facility] Glomerular Filtration Rate (07/26/2022 10:26 AM CDT)Only the most recent of20 resultswithin the time period is included. P athologist Signature eGFR 145 >=60 [facility] mL/min/1.73 DIAGNOSTIC sq. m CENTER Comment: The [...] MD LAB BLOOD ORDERABLES Performing Organization Address City/[facility] Phon e Number [facility] DIAGNOSTIC Unless otherwise noted, [address] all lab tests performed by: Division of Pathology and Laboratory Medicine [facility] [place] Fractionated Bilirubin (07/26/2022 10:26 AM CDT)Only the most recent of10 resultswithin the time period is included. athologist Signature Bili Total 0.3 <=1.2 mg/dL [facility] Comment: Indocyanine Green (ICG) may cause falsel y elevated bilirubin results. Total and direct bilirubin must not be measured from samples containing indocyanine green. False elevation of total bilirubin can b e seen in patients with IgG concentrations above 28 g/L. Bili Direct <0.2 <=0.3 mg/dL [facility] D IAGNOSTIC CENTER Comment: Indocyanine Green (ICG) may cau se falsely elevated bilirubin results. Total and direct bilirubin must not be measure d from samples containing indocyanine green. Bili Indirect See Note 0.0 - 0.9 mg/dL NM MD [facility] DIAGNOSTIC CENTER Comment: Unable to calculate Indirect Bi lirubin result due to some parameters are outside reportable range Specimen Anatomical Collection Method Collection Time Receive d Time (Source) Location / / Volume Laterality Blood 07/26/2022 10:26 07/26/2022 AM CDT 10:35 AM CDT Megan Kapadia MD LAB BLOOD ORDERABLES Performing Organization Address City/[facility]/ZIP [facility] Phon e Number [facility] DIAGNOSTIC Unless otherwise noted, [place] [id number] [place] all lab tests performed by: Division of Pathology and Laboratory Medicine [address] Cardiac Panel (07/26/2022 10:26 AM CDT)Only the most recent of5 resultswithin the time period is included. athologist Signature CK 55 26 - 192 [facility] U/L CANCER CENTER CK MB <2.0 <=5.3 ng/mL [facility] Troponin T <6 <=19 ng/L [facility] Comment: < 19 ng/L Suggest retest [...] MD LAB BLOOD ORDERABLES Performing Organization Address City/[facility] Phon e Number [facility] CANCER Unless otherwise noted, [address] all lab tests performed by: Division of Pathology and Laboratory Medicine [address] [employer] NT-Pro BNP (In-House) (07/26/2022 10:26 AM CDT)Only the most recent of3 results within the time period is included. athologist Signature NT ProBNP <36 <=125 pg/mL [facility] Specimen Anatomical Collection Method Collection Time Receive d Time (Source) Location / / Volume Laterality Blood 07/26/2022 10:26 07/26/2022 AM CDT 12:00 PM CDT Megan Kapadia MD LAB BLOOD ORDERABLES Performing Organization Address City/State/[facility] Phon e Number [facility] CANCER Unless otherwise noted, [address] all lab tests performed by: Division of Pathology and Laboratory Medicine [address] [employer] (ABNORMAL) Differential (07/26/2022 10:26 AM CDT)Only the most recent of11 resultswithin the time period is included. athologist Signature Neutrophil % 45.0 42.0 - [facility] 66.0 % DIAGNOSTIC CENTER Lymphocyte % 43.4 24.0 - [facility] 44.0 % DIAGNOSTIC CENTER Monocyte % 8.5 (H) 2.0 - 7.0 [facility] % DIAGNOSTIC CENTER Eosinophil % 1.7 1.0 - 4.0 [facility] % DIAGNOSTIC CENTER Basophil % 0.7 0.0 - 1.0 [facility] % DIAGNOSTIC CENTER IGRE % 0.7 (H) 0.0 - 0.4 [facility] % DIAGNOSTIC CENTER Comment: IGRE % count includes Metamyelo cytes, Myelocytes, and Promyelocytes. Neutrophil Abs 2.65 1.70 - 7.30 K/uL [facility] DIAGNOSTIC [place] Lymphocyte Abs 2.55 1.00 - 4.80 K/uL [facility] DIAGNOSTIC [place] Monocyte Abs 0.50 0.08 - 0.70 K/uL [facility] DIAGNOSTIC [place] Eosinophil Abs 0.10 0.04 - 0.40 K/uL [facility] DIAGNOSTIC [place] Basophil Abs 0.04 0.00 - 0.10 K/uL [facility] DIAGNOSTIC [place] IG Abs 0.04 0.00 - 0.04 K/uL NM MD CARINE Storey DIAGNOSTIC CENTER Specimen Anatomical Collection Method Collection Time Receive d Time (Source) Location / / Volume Laterality Blood 07/26/2022 10:26 07/26/2022 AM CDT 10:33 AM CDT Megan Kapadia MD LAB BLOOD ORDERABLES Performing Organization Address City/State/ZIP Code Phon e Number [facility] DIAGNOSTIC Unless otherwise noted, [address] all lab tests performed by: Division of Pathology and Laboratory Medicine [address] [place] [address] BUN (07/26/2022 10:26 AM CDT)Only the most recent of20 resultswithin the time period is included. P athologist Signature BUN 12 6 - 23 [facility] mg/dL DIAGNOSTIC CENTER Specimen Anatomical Collection Method Collection Time Receive d Time (Source) Location / / Volume Laterality Blood 07/26/2022 10:26 07/26/2022 AM CDT 10:35 AM CDT Megan Kapadia MD LAB BLOOD ORDERABLES Performing Organization Address City/State/ZIP Code Phon e Number [facility] DIAGNOSTIC Unless otherwise noted, [place] [phone] [place] all lab tests performed by: Division of Pathology and Laboratory Medicine [address] (ABNORMAL) ALT (07/26/2022 10:26 AM CDT)Only the most recent of9 resultswithin the time period is included. P athologist Signature ALT 34 (H) <=33 U/L [facility] Specimen Anatomical Collection Method Collection Time Receive d Time (Source) Location / / Volume Laterality Blood 07/26/2022 10:26 07/26/2022 AM CDT 10:35 AM CDT Megan Kapadia MD LAB BLOOD ORDERABLES Performing Organization Address City/[facility]/ZIP [facility] Phon e Number [facility] DIAGNOSTIC Unless otherwise noted, [address] all lab tests performed by: Division of Pathology and Laboratory Medicine [facility] Aspartate Aminotransferase (07/26/2022 10:26 AM CDT)Only the most recent of9 resultswithin the time period is included. athologist Signature AST 31 <=32 U/L [facility] Specimen Anatomical Collection Method Collection Time Receive d Time (Source) Location / / Volume Laterality Blood 07/26/2022 10:26 07/26/2022 AM CDT 10:35 AM CDT Megan Kapadia MD LAB BLOOD ORDERABLES Performing Organization Address City/[facility] Code Phon e Number [facility] DIAGNOSTIC Unless otherwise noted, [address] all lab tests performed by: Division of Pathology and Laboratory Medicine [address] [place] Free T4 (07/26/2022 10:26 AM CDT)Only the most recent of2 resultswithin the time period is included. athologist Signature T4 Free 1.53 0.93 - 1.70 [facility] ng/dL DIAGNOSTIC CENTER Specimen Anatomical Collection Method Collection Time Receive d Time (Source) Location / / Volume Laterality Blood 07/26/2022 10:26 07/26/2022 AM CDT 10:35 AM CDT Megan Kapadia MD LAB BLOOD ORDERABLES Performing Organization Address City/[facility]/ZIP Code Phon e Number [facility] DIAGNOSTIC Unless otherwise noted, [address] all lab tests performed by: Division of Pathology and Laboratory Medicine [facility] [place] Total Protein (07/26/2022 10:26 AM CDT)Only the most recent of9 resultswithin the time period is included. athologist [facility] Total Protein 7.4 6.4 - 8.3 [facility] g/dL DIAGNOSTIC CENTER Specimen Anatomical Collection Method Collection Time Receive d Time (Source) Location / / Volume Laterality Blood 07/26/2022 10:26 07/26/2022 AM CDT 10:35 AM CDT Megan Kapadia MD LAB BLOOD ORDERABLES Performing Organization Address City/[facility]/ZIP [facility] Phon e Number [facility] DIAGNOSTIC Unless otherwise noted, [address] all lab tests performed by: Division of Pathology and Laboratory Medicine [address] [facility] (ABNORMAL) Alkaline Phosphatase (07/26/2022 10:26 AM CDT)Only the most recent of 9 resultswithin the time period is included. athologist [facility] Alk Phos 112 (H) 35 - 104 [facility] U/L DIAGNOSTIC CENTER Specimen Anatomical Collection Method Collection Time Receive d Time (Source) Location / / Volume Laterality Blood 07/26/2022 10:26 07/26/2022 AM CDT 10:35 AM CDT Megan Kapadia MD LAB BLOOD ORDERABLES Performing Organization Address City/[facility] Phon e Number [facility] DIAGNOSTIC Unless otherwise noted, [address] all lab tests performed by: Division of Pathology and Laboratory Medicine [address] [place] (ABNORMAL) Glucose Level (07/26/2022 10:26 AM CDT)Only the most recent of19 resultswithin the time period is included. athologist Signature Glucose Level 236 (H) 70 - 99 [facility] mg/dL DIAGNOSTIC CENTER Comment: Effective 09/20/15, the glucose reference intervals have been updated based on [place] [employer] guidelines (Standards of Medical Care [...] MD LAB BLOOD ORDERABLES Performing Organization Address City/[facility]/ZIP [facility] Phon e Number [facility] DIAGNOSTIC Unless otherwise noted, [address] all lab tests performed by: Division of Pathology and Laboratory Medicine [address] [place] (ABNORMAL) Calcium Level (07/26/2022 10:26 AM CDT)Only the most recent of5 resultswithin the time period is included. athologist Signature Calcium Lvl 10.4 (H) 8.4 - 10.2 [facility] mg/dL [facility] Specimen Anatomical Collection Method Collection Time Receive d Time (Source) Location / / Volume Laterality Blood 07/26/2022 10:26 07/26/2022 AM CDT 10:35 AM CDT Megan Kapadia MD LAB BLOOD ORDERABLES Performing Organization Address [facility] Phon e Number [facility] DIAGNOSTIC Unless otherwise noted, [address] all lab tests performed by: Division of Pathology and Laboratory Medicine [address] [place] Albumin Level (07/26/2022 10:26 AM CDT)Only the most recent of10 resultswithin the time period is included. athologist Signature Albumin Lvl 4.6 3.5 - 5.2 [facility] gm/dL [facility] Specimen Anatomical Collection Method Collection Time Receive d Time (Source) Location / / Volume Laterality Blood 07/26/2022 10:26 07/26/2022 AM CDT 10:35 AM CDT Megan Kapadia MD LAB BLOOD ORDERABLES Performing Organization Address City/[facility] Phon e Number [facility] DIAGNOSTIC Unless otherwise noted, [address] all lab tests performed by: Division of Pathology and Laboratory Medicine [address] [place] (ABNORMAL) Lipid panel (07/26/2022 10:26 AM CDT) P athologist Signature Chol 246 (H) <=199 mg/dL [facility] Comment: ATP III Classification of Total Choleste rol Primary Target of Therapy (in mg/dL): <200 Desirable 200-239 Borderline high >=240 High Trig 201 (H) <=149 mg/dL [facility] Comment: ATP III Classification of Serum Triglyce rides Primary Target of Therapy (in mg/dL): <150 Normal 150-199 Borderline high 200-499 High >=500 Very high Non-fasting triglycerides >200 mg/dL may be followed up with a fasting Lipid Panel. Calculated LDL-C may be falsely decreased when non-fasting triglycerides >200 mg/dL. HDL 52 >=40 mg/dL [facility] LDL 154 (H) <=100 mg/dL [facility] Comment: ATP III Classification of LDL Cholestero l Primary Target of Therapy (in mg/dL): <100 Optimal 100-129 Near optimal/above optimal 130-159 Borderline high 160-189 High >=190 Very high VLDL 40 mg/dL [facility] DIAGN OSTIC CENTER Specimen Anatomical Collection Method Collection Time Receive d Time (Source) Location / / Volume Laterality Blood 07/26/2022 10:26 07/26/2022 AM CDT 10:38 AM CDT Megan Kapadia MD LAB BLOOD ORDERABLES Performing Organization Address City/State/ZIP Code Phon e Number [facility] DIAGNOSTIC Unless otherwise noted, [place] [id number] [place] all lab tests performed by: Division of Pathology and Laboratory Medicine [address] [place] [address] Electrolyte Panel (07/26/2022 10:26 AM CDT)Only the most recent of20 results within the time period is included. athologist Signature Sodium Lvl 138 136 - 145 [facility] mEq/L DIAGNOSTIC CENTER Potassium Lvl 4.4 3.5 - 5.1 [facility] mEq/L DIAGNOSTIC [place] Chloride 102 98 - 107 [facility] mEq/L DIAGNOSTIC CENTER CO2 26 22 - 29 [facility] mEq/L DIAGNOSTIC CENTER Anion Gap 10 4 - 14 [facility] mEq/L DIAGNOSTIC CENTER Specimen Anatomical Collection Method Collection Time Receive d Time (Source) Location / / Volume Laterality Blood 07/26/2022 10:26 07/26/2022 AM CDT 10:35 AM CDT Megan Kapadia MD LAB BLOOD ORDERABLES Performing Organization Address City/State/ZIP Code Phon e Number [facility] Unless otherwise noted, [place] [address] CENTER all lab tests performed by: Division of Pathology and Laboratory Medicine [address] [place] EKG, 12-Lead (Scheduled) (07/15/2022) Specimen (Source) Anatomical Location Collection Method / Collectio n Time Received Time / Laterality Volume Narrative This result has an attachment that is no t available. Megan Kapadia MD ECG ORDERABLES Performing Organization Address City/State/ZIP Code Phon e Number MICHAEL IECG CT Soft Tissue Neck with Contrast (04/12/2022 2:09 PM SERVICE DESK ASSOCIATE) Anatomical Region Laterality Modality Neck Computed Tomography Specimen (Source) Anatomical Collection Method Collection Time Re ceived Time Location / / Volume Laterality 04/15/2022 8:42 AM SERVICE DESK ASSOCIATE Impressions 04/15/2022 10:31 AM SERVICE DESK ASSOCIATE No evidence of local or kourtney recurrence in the cervical region. I personally reviewed these image(s) roverto castillo with the resident's/fellow's interpretations, certify that if a procedure was performed I was physically present, and agree with the final report. Narrative 04/15/2022 10:31 AM SERVICE DESK ASSOCIATE FULL RESULT: Examination: CT SOFT TISSUE NECK [...] size when compared with the exam from 2014. No new or progressive lymphadenopathy. The visualized [...] size when compared with the exam from 2014. No new or progressive lymphadenopathy. The visualized [...] region. I personally reviewed these image(s) roverto castillo with the resident's/fellow's interpretations, certify that if a procedure was performed I was physically present, and agree with the final report. Lolita Ann MD IMG CT ORDERABLES CT Chest with Contrast (04/12/2022 2:09 PM SERVICE DESK ASSOCIATE) Anatomical Region Laterality Modality Chest Computed Tomography Specimen (Source) Anatomical Collection Method Collection Time Re ceived Time Location / / Volume Laterality 04/12/2022 3:09 PM SERVICE DESK ASSOCIATE Impressions 04/12/2022 3:24 PM SERVICE DESK ASSOCIATE Resolution of prior features of parenchy mal features and effusions suggestive of pneumonia. Residual pulmonary nodules reflecting treated metastases. Hepatic focal lesions, of indeterminate chronicity, for which evaluation by MRI is advised. Narrative 04/12/2022 3:24 PM SERVICE DESK ASSOCIATE FULL RESULT: Examination: CT CHEST W CONTRAST, [...] (ABNORMAL) POC Glucose Screen (04/02/2022 8:17 AM SERVICE DESK ASSOCIATE)Only the most recent of54 resultswithin the time [...] Sample Type Capillary POC TELCOR Performing Lab [facility] POC TELCO R Comment: [facility] Clinical Lab, [address] [place] [address], [place] [address]; Lab Direct or: Marylou Olmstead MD; Waived Point of Care Testing - Luz Maria Vázquez MD Specimen Anatomical Collection Method Collection Time Receive d Time (Source) Location / / Volume Laterality Blood 04/02/2022 8:17 AM 8:17 SERVICE DESK ASSOCIATE AM SERVICE DESK ASSOCIATE Satya Carpenter MD POCT ORDERABLES - DEVICE Performing Organization Address City/[facility] Phon e Number POC TELCOR Unless otherwise noted, [place] [address] lab tests performed by: Division of Pathology and Laboratory Medicine [address] [place] [address] Prothrombin Time with INR (04/02/2022 7:05 AM SERVICE DESK ASSOCIATE)Only the most recent of10 resultswithin the time period is included. P athologist Signature PT 12.6 11.9 - 14.1 [facility](s) [facility] INR 0.94 0.89 - 1.10 [facility] Specimen Anatomical Collection Method Collection Time Receive d Time (Source) Location / / Volume Laterality Blood 04/02/2022 7:05 AM 3 7:07 SERVICE DESK ASSOCIATE AM SERVICE DESK ASSOCIATE Idania Shah MD LAB BLOOD ORDERABLES Performing Organization Address City/[facility] Phon e Number [facility] CANCER Unless otherwise noted, [address] all lab tests performed by: Division of Pathology and Laboratory Medicine [address] [place] [address] Phosphorus Level (04/02/2022 7:05 AM SERVICE DESK ASSOCIATE)Only the most recent of19 resultswithin the time period is included. P athologist Signature Phosphorus 3.1 2.5 - 4.5 [facility] mg/dL CANCER CENTER Specimen Anatomical Collection Method Collection Time Receive d Time (Source) Location / / Volume Laterality Blood 04/02/2022 7:05 AM 3 7:12 SERVICE DESK ASSOCIATE AM SERVICE DESK ASSOCIATE Idania Shah MD LAB BLOOD ORDERABLES Performing Organization Address City/[facility]/ZIP Code Phon e Number [facility] CANCER Unless otherwise noted, [address] all lab tests performed by: Division of Pathology and Laboratory Medicine [address] [place] [address] Magnesium Level (04/02/2022 7:05 AM SERVICE DESK ASSOCIATE)Only the most recent of19 resultswithin the time period is included. P athologist Signature Magnesium 2.4 1.6 - 2.6 [facility] mg/dL [facility] Specimen Anatomical Collection Method Collection Time Receive d Time (Source) Location / / Volume Laterality Blood 04/02/2022 7:05 AM 3 7:12 SERVICE DESK ASSOCIATE AM SERVICE DESK ASSOCIATE Idania Shah MD LAB BLOOD ORDERABLES Performing Organization Address City/[facility]/ZIP Code Phon e Number [facility] Unless otherwise noted, [address] all lab tests performed by: Division of Pathology and Laboratory Medicine [address] [place], [place] [address] (ABNORMAL) Calcium Ionized, Venous (04/02/2022 7:01 AM SERVICE DESK ASSOCIATE)Only the most recent of15 resultswithin the time period is included. P athologist Signature V Ion Ca 1.13 (L) 1.15 - 1.29 [facility] mmol/L [facility] Specimen Anatomical Collection Method Collection Time Receive d Time (Source) Location / / Volume Laterality Blood 04/02/2022 7:01 AM 3 7:07 SERVICE DESK ASSOCIATE AM SERVICE DESK ASSOCIATE Idania Shah MD LAB BLOOD ORDERABLES Performing Organization Address City/[facility]/ZIP Code Phon e Number [facility] CANCER Unless otherwise noted, [address] all lab tests performed by: Division of Pathology and Laboratory Medicine [address] [place] [address] General Laboratory Add-On Test (04/01/2022 4:14 PM SERVICE DESK ASSOCIATE)Only the most recent of3 resultswithin the time period is included. Patholo gist Method Time Signature Ordered Test Added [facility] Test Needed Hemoglobin A1c [facility] Specimen Anatomical Collection Method Collection Time Receive d Time (Source) Location / / Volume Laterality Existing 04/01/2022 4:14 PM 3 4:14 SERVICE DESK ASSOCIATE PM SERVICE DESK ASSOCIATE Ry Noe JUAN MANUEL LAB BLOOD ORDERABLES Performing Organization Address City/[facility]/ZIP Code Phon e Number [facility] CANCER Unless otherwise noted, [address] all lab tests performed by: Division of Pathology and Laboratory Medicine [address] [place] [address] Clot Expiration Date (04/01/2022 8:09 AM SERVICE DESK ASSOCIATE)Only the most recent of3 results within the time period is included. [facility] Signature T & S 04/04/2022 [facility] Specimen Anatomical Collection Method Collection Time Receive d Time (Source) Location / / Volume Laterality Blood 04/01/2022 8:09 AM 3 9:10 SERVICE DESK ASSOCIATE AM SERVICE DESK ASSOCIATE Idania Shah MD BLOOD BANK TEST ORDERABLES Performing Organization Address City/[facility] Phon e Number [facility] Unless otherwise noted, [address] all lab tests performed by: Division of Pathology and Laboratory Medicine [address] [place] [address] TMP Interpretation Antibody Screen Negative (04/01/2022 8:09 AM SERVICE DESK ASSOCIATE)Only the most recent of3 resultswithin the time period is included. [facility] TMP Auto Neg At the [facility] patient plasma shows no evidence of RBC alloantibodi es. Comment: VICKIE LEIGH MD, PhD - [id number] Dictated by: VICKIE LEIGH MD, Ph D - [id number] Dictated Date/Time: 04.01.2022 13:22 PM SERVICE DESK ASSOCIATE Transcribed Date/Time: 04.01.2022 13:22 PM SERVICE DESK ASSOCIATE Electronically Signed By: VICKIE LEIGH MD, PhD - [id number] on 04.01.2022 13:22 PM Specimen Anatomical Collection Method Collection Time Receive d Time (Source) Location / / Volume Laterality Blood 04/01/2022 8:09 AM 3 9:10 SERVICE DESK ASSOCIATE AM SERVICE DESK ASSOCIATE Idania Shah MD BLOOD BANK TEST ORDERABLES Performing Organization Address City/State/ZIP Code Phon e Number [facility] CANCER Unless otherwise noted, [address] all lab tests performed by: Division of Pathology and Laboratory Medicine [address] [place] [address] [place] ABORh (04/01/2022 8:09 AM SERVICE DESK ASSOCIATE)Only the most recent of3 resultswithin the time period is included. athologist Signature ABORh. A POS [facility] Specimen Anatomical Collection Method Collection Time Receive d Time (Source) Location / / Volume Laterality Blood 04/01/2022 8:09 AM 3 9:10 SERVICE DESK ASSOCIATE AM SERVICE DESK ASSOCIATE Idania Shah MD BLOOD BANK TEST ORDERABLES Performing Organization Address City/[facility] Phon e Number [facility] CANCER Unless otherwise noted, [address] all lab tests performed by: Division of Pathology and Laboratory Medicine [address] [place] [address] Antibody Screen (04/01/2022 8:09 AM SERVICE DESK ASSOCIATE)Only the most recent of3 resultswithin the time period is included. athologist [facility] ABSC. Negative ABSC [facility] Specimen Anatomical Collection Method Collection Time Receive d Time (Source) Location / / Volume Laterality Blood 04/01/2022 8:09 AM 3 9:10 SERVICE DESK ASSOCIATE AM SERVICE DESK ASSOCIATE Idania Shah MD BLOOD BANK TEST ORDERABLES Performing Organization Address City/[facility]/ZIP [facility] Phon e Number [facility] CANCER Unless otherwise noted, [address] all lab tests performed by: Division of Pathology and Laboratory Medicine [address] [place], [place] [address]d (ABNORMAL) Hemoglobin A1c (04/01/2022 8:09 AM SERVICE DESK ASSOCIATE) athologist [facility] A1C 8.4 (H) 4.3 - 5.6 % [facility] Comment: HbA1c values >=6.5% are diagnostic of di abetes mellitus. Diagnosis should be confirmed by repeat testing. Therapeutic Action suggested: >8.0% HbA1 c; Goal of therapy: <7.0% HbA1c Specimen Anatomical Collection Method Collection Time Receive d Time (Source) Location / / Volume Laterality Blood 04/01/2022 8:09 AM 3 6:57 SERVICE DESK ASSOCIATE PM SERVICE DESK ASSOCIATE Idania Shah MD LAB BLOOD ORDERABLES Performing Organization Address City/State/ZIP Code Phon e Number [facility] CANCER Unless otherwise noted, [place] [address] CENTER all lab tests performed by: Division of Pathology and Laboratory Medicine [facility]5 [facility] PROCEDURE FOR CODING (03/30/2022 1:37 PM SERVICE DESK ASSOCIATE) Michael Burden RN - 3 1:37 PM SERVICE DESK ASSOCIATE Michael Dillon RN 03/30/2022 1:39 PM PICC/Non-Tunneled CVAD Removal Date/Time: 03/30/2022 1:37 PM Performed by: Christelle Thompson N Authorized by: Idania Shah MD Pre Procedure: Proceduralist Type: RN Proceduralist: Michael simeon RN Procedure Location: Inpatient [facility] Reason for Removal: Treatment Compl ete Patient examined pre-procedure and as sessment (including allergies, labs, imaging, history and physical exam ) performed. Informed consent obtained prior, the risks, benefits, and alternative discussed with patient/designated client services representative. Pre-p rocedure the patient was alert. [...] additional bleeding Mode of Dis[facility]: [facility] Idania Shah MD IV THERAPY ORDERABLES POC Critical (03/30/2022 1:30 PM SERVICE DESK ASSOCIATE)Only the most recent of4 resultswithin the time period is included. athologist Signature POC Critical See Note POC TELCOR Comment Comment: Test performer notified Orderin g Licensed Provider and /or designee of POC Glucose Screen critical Results.. Specimen Anatomical Collection Method Collection Time Receive d Time (Source) Location / / Volume Laterality Blood 03/30/2022 1:30 PM 1:30 SERVICE DESK ASSOCIATE PM SERVICE DESK ASSOCIATE Idania Shah MD POINT OF CARE TEST ORDERABL ES Performing Organization Address City/State/ZIP Code Phon e Number POC TELCOR Unless otherwise noted, [place] [address] lab tests performed by: Division of Pathology and Laboratory Medicine [facility] Kaylin Hopkins aPTT (03/30/2022 7:36 AM SERVICE DESK ASSOCIATE)Only the most recent of7 resultswithin the time period is included. athologist Signature aPTT 27.7 22.8 - 34.2 [facility](s) [facility] Specimen Anatomical Collection Method Collection Time Receive d Time (Source) Location / / Volume Laterality Blood 03/30/2022 7:36 AM 7:44 SERVICE DESK ASSOCIATE AM SERVICE DESK ASSOCIATE Idania Shah MD LAB BLOOD ORDERABLES Performing Organization Address City/[facility] Phon e Number [facility] CANCER Unless otherwise noted, [address] all lab tests performed by: Division of Pathology and Laboratory Medicine [facility] [address] [place] Lactic Acid, Venous (03/29/2022 10:16 AM SERVICE DESK ASSOCIATE)Only the most recent of10 results within the time period is included. athologist Signature V Lactate 0.9 0.5 - 1.6 [facility] mmol/L CANCER CENTER Specimen Anatomical Collection Method Collection Time Receive d Time (Source) Location / / Volume Laterality Blood 03/29/2022 10:16 03/29/2022 AM SERVICE DESK ASSOCIATE 10:22 AM SERVICE DESK ASSOCIATE Idania Shah MD LAB BLOOD ORDERABLES Performing Organization Address City/[facility]/ZIP [facility] Phon e Number [facility] CANCER Unless otherwise noted, [address] all lab tests performed by: Division of Pathology and Laboratory Medicine [facility] [address] (ABNORMAL) ABG (03/29/2022 10:16 AM SERVICE DESK ASSOCIATE)Only the most recent of14 resultswithin the time period is included. P athologist Signature pH Art 7.49 (H) 7.35 - 7.45 [facility] Comment: Results are corrected for a bod y temp of 37C. pCO2 Art 37.7 32.0 - 45.0 mmHg NM MD CARINE Storey [facility] pO2 Art 96 83 - 108 mmHg NM MD SANTIAGO ANCER [place] HCO3 Art 28 21 - 28 mmol/L [facility] Base Excess Art 5 (H) -2 - 3 mmol/L NM MD LOPES RSON [facility] O2 Sat Art 97 95 - 99 % [facility] ER CENTER Specimen Anatomical Collection Method Collection Time Receive d Time (Source) Location / / Volume Laterality Blood 03/29/2022 10:16 03/29/2022 AM SERVICE DESK ASSOCIATE 10:22 AM SERVICE DESK ASSOCIATE Idania Shah MD LAB BLOOD ORDERABLES Performing Organization Address City/State/ZIP Code Phon e Number [facility] CANCER Unless otherwise noted, [place] [address] [place] all lab tests performed by: Division of Pathology and Laboratory Medicine [address] [facility] X-ray Chest 1 View Portable (03/29/2022 1:42 AM SERVICE DESK ASSOCIATE)Only the most recent of4 resultswithin the time period is included. Anatomical Region Laterality Modality Chest Digital Radiography Specimen (Source) Anatomical Collection Method Collection Time Re ceived Time Location / / Volume Laterality 03/29/2022 8:09 AM SERVICE DESK ASSOCIATE Impressions 03/29/2022 8:10 AM SERVICE DESK ASSOCIATE Persistent diffuse opacities, most likely pneumonia. Narrative 03/29/2022 8:10 AM SERVICE DESK ASSOCIATE FULL RESULT: Examination: XR CHEST 1 VW [...] Idania Shah MD IMG DIAGNOSTIC IMAGING ORDE TATIANA Vancomycin Trough Draw before dose due at 1230 today. (03/28/2022 11:50 AM SERVICE DESK ASSOCIATE) Only the most recent of3 resultswithin the time period is included. athologist Signature Vanco Trough 9.7 5.0 - 20.0 NM MD SANTIAGO mcg/mL [facility] Comment: Toxic Trough Level: >20 mcg/mL Vanco Tr Dose Time See note NM MD BLADIMIR FAIRBANKS [facility] Comment: Level, date, and time of previous dose i s not available for this sample. The date reported is th e sample collection date. Vanco Tr Dose Date 03/28/2022 NM MD MOSES MARK [facility] Comment: Level, date, and time of previous dose i s not available for this sample. The date reported is th e sample collection date. Specimen Anatomical Collection Method Collection Time Receive d Time (Source) Location / / Volume Laterality Blood 03/28/2022 11:50 03/28/2022 AM SERVICE DESK ASSOCIATE 12:09 PM SERVICE DESK ASSOCIATE Narrative [facility] - 12:46 PM SERVICE DESK ASSOCIATE Draw before dose due at 1230 today. Nathaniel Montes MD LAB BLOOD ORDERABLES Performing Organization Address City/State/ZIP Code Phon e Number [facility] CANCER Unless otherwise noted, [place] [address] [place] all lab tests performed by: Division of Pathology and Laboratory Medicine [facility] Echocardiogram 2D Limited - Follow Up (03/28/2022 8:20 AM SERVICE DESK ASSOCIATE) athologist Signature EF 39 ISCV Specimen (Source) Anatomical Collection Method Collection Time Re ceived Time Location / / Volume Laterality 03/28/2022 7:29 AM SERVICE DESK ASSOCIATE Narrative ISCV - 03/28/2022 9:54 AM SERVICE DESK ASSOCIATE Echocardiographic Report Interpretation Summary Left ventricular systolic [...] EDV(MOD-bp): 95.2 ml EF(MOD-A2C): 37.0 % ESV(MOD-bp): 58. 5 ml EF(MOD-bp): 38.6 % LAV(MOD-A2C): 22.3 ml EDV (MOD-bp) In dex: 67.1 ml/m2 LAV(MOD-A4C): 24.5 ml LAV(MOD-bp): 23.4 ml LAV(MOD-bp) Indexed: 16.5 ml/m2 RWT: 0.24 cm ESV (MOD-bp) Index: 41.2 ml/m2 Doppler Measurements TR max jose alfredo: 233.3 cm/sec TR max P.8 mmHg Megan Kapadia MD CV ECHO ORDERABLES Performing Organization Address City/State/ZIP Code Phon e Number ISCV US RENAL (03/27/2022 3:52 PM SERVICE DESK ASSOCIATE)Only the most recent of2 resultswithin the time period is included. Anatomical Region Laterality Modality Abdomen Ultrasound Specimen (Source) Anatomical Collection Method Collection Time Re ceived Time Location / / Volume Laterality 03/27/2022 4:06 PM SERVICE DESK ASSOCIATE Impressions 03/27/2022 4:08 PM SERVICE DESK ASSOCIATE No hydronephrosis. Narrative 03/27/2022 4:08 PM SERVICE DESK ASSOCIATE Examination: US RENAL, 03/27/2022 3:52 P M [...] catheter in place. IMPRESSION: No hydronephrosis. Martínez Mendez APRN [facility] US ORDERABLES Antinuclear Antibody (ED) HEp-2 Substrate, IgG (03/26/2022 1:31 PM SERVICE DESK ASSOCIATE) [facility] Method Time Signature ED HEp-2 See Footnote <1:80 [facility] CANCER CENTER Comment: RESULT: <1:80 (Negative) ADDITIONAL INFORMATIO N Method: Immunofluorescence using HEp-2 c ellular substrate. Test Performed by: [facility] [address] [place] [address] [address] [employer] Department: Nito Marie M.D. Ph. D.; CLIA# [id number] Specimen Anatomical Collection Method Collection Time Receive d Time (Source) Location / / Volume Laterality Blood 03/26/2022 1:31 PM 3 2:04 SERVICE DESK ASSOCIATE PM SERVICE DESK ASSOCIATE Jayda Shaw MD LAB BLOOD ORDERABLES Performing Organization Address City/State/ZIP Code Phon e Number [facility] CANCER Unless otherwise noted, [address] all lab tests performed by: Division of Pathology and Laboratory Medicine [address] [place] [address] (ABNORMAL) Procalcitonin (03/26/2022 1:31 PM SERVICE DESK ASSOCIATE)Only the most recent of2 resultswithin the time period is included. Analysis Performed At Patho logist Time Signature Procalcitonin 30.39 (H) <=0.08 [facility] [[email or web address]] ng/mL [facility] Comment: Procalcitonin > 2.00 ng/mL: Procalcit onin [...] with extended dilution as it exceeds the loading dock hand's recommended limit. Caution should be exercised when interpreting such values and done in conjunction with clinical context. Specimen Anatomical Collection Method Collection Time Receive d Time (Source) Location / / Volume Laterality Blood 03/26/2022 1:31 PM 3 1:53 SERVICE DESK ASSOCIATE PM SERVICE DESK ASSOCIATE Jayda Shaw MD LAB BLOOD ORDERABLES Performing Organization Address City/State/ZIP Code Phon e Number [facility] CENTER Unless otherwise noted, [address] all lab tests performed by: Division of Pathology and Laboratory Medicine [address] [place] [address] Anti-Neutrophil Cytoplasmic Antibodies Vascultitis Panel (03/26/2022 1:31 PM SERVICE DESK ASSOCIATE) athologist Signature Myeloperox <0.2 <0.4 [facility] (Negative) CANCER CENTER Units Proteinase 3 <0.2 <0.4 [facility] (Negative) CANCER CENTER Units Comment: Test Performed by: [facility] [address] [address] 33 Supervisor Jewelry Department: Nito Marie M.D. Ph. D.; CLIA# [id number] Specimen Anatomical Collection Method Collection Time Receive d Time (Source) Location / / Volume Laterality Blood 03/26/2022 1:31 PM 3 2:04 SERVICE DESK ASSOCIATE PM SERVICE DESK ASSOCIATE Jayda Shaw MD LAB BLOOD ORDERABLES Performing Organization Address City/[facility]/ZIP Code Phon e Number [facility] CANCER Unless otherwise noted, [address] all lab tests performed by: Division of Pathology and Laboratory Medicine [address] [place] Blood Culture (03/26/2022 1:31 PM SERVICE DESK ASSOCIATE)Only the most recent of4 resultswithin the time period is included. Component Value Ref Test Analysis Performed At Patholo gist Range Method Time Signature Final Report No growth [facility] Path Review - Immunity and antibiotic use may render culture negative. Ongoing infection requires repeat culture. The results have been reviewed and electronically signed by Pathologist: NM MD Newell/Brett Vázquez MD, PhD #[id number] [facility] Specimen Anatomical Collection Method Collection Time Receive d Time (Source) Location / / Volume Laterality Blood (Arterial 03/26/2022 1:31 PM 2022 3:57 Line) SERVICE DESK ASSOCIATE PM SERVICE DESK ASSOCIATE Satya Rust APRN MICROBIOLOGY - GENERAL ORDER [place]ULIANA Performing Organization Address City/[facility]/ZIP Code Phon e Number [facility] CANCER Unless otherwise noted, [address] all lab tests performed by: Division of Pathology and Laboratory Medicine [address] [place] (ABNORMAL) Sed Rate (03/26/2022 1:31 PM SERVICE DESK ASSOCIATE) P athologist Signature Sed Rate 83 (H) 0 - 20 [facility] mm/hr [facility] Specimen Anatomical Collection Method Collection Time Receive d Time (Source) Location / / Volume Laterality Blood 03/26/2022 1:31 PM 3 1:47 SERVICE DESK ASSOCIATE PM SERVICE DESK ASSOCIATE Jayda Shaw MD LAB BLOOD ORDERABLES Performing Organization Address City/[facility]/ZIP Code Phon e Number [facility] CANCER Unless otherwise noted, [address] all lab tests performed by: Division of Pathology and Laboratory Medicine [address] [place] CRP (03/26/2022 1:31 PM SERVICE DESK ASSOCIATE)Only the most recent of2 resultswithin the time period is included. P athologist Signature CRP 239.41 mg/L [facility] CANCER [place] Comment: Reference ranges for HS CRP assay [...] Laterality Blood 03/26/2022 1:31 PM 3 1:53 SERVICE DESK ASSOCIATE PM SERVICE DESK ASSOCIATE Jayda Shaw MD LAB BLOOD ORDERABLES Performing Organization Address City/State/ZIP Code Phon e Number [facility] Unless otherwise noted, [place] [address] CENTER all lab tests performed by: Division of Pathology and Laboratory Medicine [address] [facility] Echocardiogram 2D Complete with Contrast (03/26/2022 12:19 PM SERVICE DESK ASSOCIATE) Specimen (Source) Anatomical Collection Method Collection Time Re ceived Time Location / / Volume Laterality 03/26/2022 11:46 AM SERVICE DESK ASSOCIATE Narrative ISCV - 03/26/2022 1:28 PM SERVICE DESK ASSOCIATE Echocardiographic Report Interpretation Summary A complete two-dimensional [...] EDV(MOD-A2C): 79.6 ml ESV(MOD-A2C): 61.9 ml EDV(MOD-bp): 7 6.0 ml EF(MOD-A2C): 22.2 % ESV(MOD-bp): 56. 8 [...] cm2 LV V1 max P.9 mmHg SV(LVOT): 41. 9 ml LV V1 mean P.5 mmHg LV V1 max: 121.2 cm/sec LV V1 mean: 71.8 cm/sec LV V1 VTI: 15.5 cm PA V2 max: 84.2 cm/sec TR max jose alfredo: 2 13.5 cm/sec PA max P.8 mmHg TR max P.3 mmHg PA V2 mean: 55.6 cm/sec PA mean P.4 mmHg PA V2 VTI: 11.1 cm NADEEM Index (I,D): 2.1 [place] Index (V,D) : 2.0 Dimensionless Index: 1.0 Ellie Tay APRN CV ECHO ORDERABLES Performing Organization Address City/State/ZIP Code Phon e Number ISCV PROCEDURE FOR CODING (03/26/2022 11:37 AM SERVICE DESK ASSOCIATE) Narrative Satya Rust NP - 03/26/2022 11: 37 AM SERVICE DESK ASSOCIATE Satya Rust NP 03/26/2022 11:39 AM Procedures [...] for this procedure Procedure Description: Equipment: 7 Emir[place] 3-Lumen minocycline/rifampin co ated COOK central venous [...] catheter Disposition:Remain in ICU bed. Satya Rust APRN IV THERAPY ORDERABLES Legionella Urine Antigen Path Review (03/26/2022 11:23 AM SERVICE DESK ASSOCIATE) Component Value Ref Test Analysis Performed At [facility] Range Method Time Signature Legionella Reviewed and Electronically signed by Pathologist: MARTY HENDERSON Urine Antigen NORMAN CAMARILLO MD #[id number] [facility] CANCER [place] Comment: MD Jimmy PALACIOS [id number] Dictated by: MD Jimmy PALACIOS [id number] Dictated Date/Time: 03.27.2022 19:35 PM SERVICE DESK ASSOCIATE Transcribed Date/Time: 03.27.2022 19:35 PM SERVICE DESK ASSOCIATE Electronically Signed By: MD Jimmy HAWKINS [id number] on 03.27.2022 19:35 PM Specimen Anatomical Collection Method Collection Time Receive d Time (Source) Location / / Volume Laterality Urine 03/26/2022 11:23 03/27/2022 AM SERVICE DESK ASSOCIATE 12:33 PM SERVICE DESK ASSOCIATE Iwona Samuels APRN MICROBIOLOGY - GENERAL ORDER YULIANA Performing Organization Address City/State/ZIP Code Phon e Number [facility] CANCER Unless otherwise noted, [address] all lab tests performed by: Division of Pathology and Laboratory Medicine [address] [place] [address] Streptococcal Urine Antigen Path Review (03/26/2022 11:23 AM SERVICE DESK ASSOCIATE) Component Value Ref Test Analysis Performed Pathologis t Range Method Time At Signature Streptococcal Reviewed and Electronically signed by Pathologist: NM Urine Antigen NORMAN CAMARILLO MD #[id number] [place] Path [facility] Comment: MD Jimmy PALAICOS [id number] Dictated by: MD Jimmy PALACIOS [id number] Dictated Date/Time: 03.27.2022 19:35 PM SERVICE DESK ASSOCIATE Transcribed Date/Time: 03.27.2022 19:35 PM SERVICE DESK ASSOCIATE Electronically Signed By: MD Jimmy HAWKINS [id number] on 03.27.2022 19:35 PM Specimen Anatomical Collection Method Collection Time Receive d Time (Source) Location / / Volume Laterality Urine 03/26/2022 11:23 03/27/2022 AM SERVICE DESK ASSOCIATE 12:33 PM SERVICE DESK ASSOCIATE Iwona Samuels APRN MICROBIOLOGY - GENERAL ORDER YULIANA Performing Organization Address City/State/ZIP Code Phon e Number [facility] CANCER Unless otherwise noted, [address] all lab tests performed by: Division of Pathology and Laboratory Medicine [address] [place] Streptococcus pneumoniae Urine Antigen (03/26/2022 11:23 AM SERVICE DESK ASSOCIATE) Component Value Ref Test Analysis Performed At [facility] Streptococcal Presumptive negative for S. pneumoniae antigen in the urine, suggesting no current or recent pneumococcal infection. However, infection due to S. pneumoniae cannot be completely ruled out since the leve [facility] [[email or web address]] Urine Antigen l of antigen present in the urine may be below the BALDEV Interpretation detection limit of the test. CANCER CENTER Streptococcal Negative [facility] [[email or web address]] Urine Antigen BALDEV Interpretation [facility] Specimen Anatomical Collection Method Collection Time Receive d Time (Source) Location / / Volume Laterality Urine 03/26/2022 11:23 03/26/2022 1:50 AM SERVICE DESK ASSOCIATE PM SERVICE DESK ASSOCIATE Ellie Tay APRN MICROBIOLOGY - GENERAL ORDER YULIANA Performing Organization Address [facility] Phon e Number [facility] CANCER Unless otherwise noted, [address] all lab tests performed by: Division of Pathology and Laboratory Medicine [facility] [place] Legionella Urine Antigen (03/26/2022 11:23 AM SERVICE DESK ASSOCIATE) Component Value Ref Test Analysis Performed At [facility] Legionella Urine Negative for L. pneumophila serogroup 1 antigen, suggesting no recent or current infection. However, infections due to other serogroups and species of Legionella are not detected by this assay. In addition, antigen may not be present in the urine in [facility] early infection and the leve l of antigen present in the urine may be below the detection limit of the test. AN CESAR Interpretation [facility] Legionella Urine Negative [facility] [[email or web address]] Antigen BALDEV Interpretation CANCER CENTER Specimen Anatomical Collection Method Collection Time Receive d Time (Source) Location / / Volume Laterality Urine 03/26/2022 11:23 03/26/2022 1:50 AM SERVICE DESK ASSOCIATE PM SERVICE DESK ASSOCIATE Ellie Tay APRN MICROBIOLOGY - GENERAL ORDER YULIANA Performing Organization Address City/[facility] Phon e Number [facility] CANCER Unless otherwise noted, [address] all lab tests performed by: Division of Pathology and Laboratory Medicine [address] [place] MRSA Screening Culture (03/26/2022 11:23 AM SERVICE DESK ASSOCIATE) Component Value Ref Test Analysis Performed At [facility] Final Report No Methicillin [facility] Staphylococcus CANCER aureus isolated. CENTER Path Review The results have been review ed and electronically signed by Pathologist: NM MD NORMAN CAMARILLO MD #[id number] A [facility] Specimen Anatomical Collection Method Collection Time Receive d Time (Source) Location / / Volume Laterality Nasal 03/26/2022 11:23 03/26/2022 1:58 AM SERVICE DESK ASSOCIATE PM SERVICE DESK ASSOCIATE Ellie Tay APRN MICROBIOLOGY - GENERAL ORDER YULIANA Performing Organization Address City/[facility]/ZIP Code Phon e Number [facility] CANCER Unless otherwise noted, [address] all lab tests performed by: Division of Pathology and Laboratory Medicine [address] [place] (ABNORMAL) Fibrinogen (03/26/2022 11:01 AM SERVICE DESK ASSOCIATE) athologist Signature Fibrinogen 697 (H) 214 - 503 [facility] mg/dL [facility]CER [place] Specimen Anatomical Collection Method Collection Time Receive d Time (Source) Location / / Volume Laterality Blood 03/26/2022 11:01 03/26/2022 AM SERVICE DESK ASSOCIATE 11:11 AM SERVICE DESK ASSOCIATE Satya Rust APRN LAB BLOOD ORDERABLES Performing Organization Address City/[facility]/ZIP Code Phon e Number [facility] CANCER Unless otherwise noted, [address] all lab tests performed by: Division of Pathology and Laboratory Medicine [address] MS ARTL CATHJ/CANNULJ MNTR/TRANSFUSION SPX PRQ, HC ARTERIAL LINE FOR BP MON (03/26/2022 10:45 AM SERVICE DESK ASSOCIATE) Narrative Satya Rust NP - 03/26/2022 10: 45 AM SERVICE DESK ASSOCIATE Satya Rust NP 03/26/2022 10:48 AM Arterial line insertion Date/Time: 03/26/2022 10:45 AM Provider Information: Performed by: Satya Rust NP Authorized by: Satya Rust NP Allergies: No Known Allergies Satya Rust APRN PROCEDURE/MINOR SURGICAL ORD ERABLES X-ray Chest 1 View (03/26/2022 10:27 AM SERVICE DESK ASSOCIATE)Only the most recent of2 results within the time period is included. Anatomical Region Laterality Modality Chest Digital Radiography Specimen (Source) Anatomical Collection Method Collection Time Re ceived Time Location / / Volume Laterality 03/26/2022 10:31 AM SERVICE DESK ASSOCIATE Impressions 03/26/2022 10:32 AM SERVICE DESK ASSOCIATE Endotracheal tube with its distal tip in the proximal aspect of right mainstem bronchus. Reposition is recommended. Interval increase of bilateral lung opac ities may represent pneumonia, pulmonary edema or hemorrhage superimposed to atelectasis. Narrative 03/26/2022 10:32 AM SERVICE DESK ASSOCIATE FULL RESULT: Examination: XR CHEST 1 VW, [...] pulmonary edema or hemorrhage superimposed to atelectasis. Ellie Tay APRN [facility] ORDER [place]UL[place] (ABNORMAL) [facility] Miscellaneous Test (03/26/2022 10:24 AM SERVICE DESK ASSOCIATE) [facility] Method Time Signature [facility] RL Test See Footnote MARTY HENDERSON Result (A) [facility] Comment: Test Result Flag Unit RefValue Beta-Hydroxybutyrate, S 2.0 H mmol/L <0.4 Test Performed by: [place] [address] Supervisor Jewelry Department: Nito Herman. Ph.D.; CLIA# [id number] [facility] Test Name Beta-Hydroxybutyrate U T [facility] Specimen Anatomical Collection Method Collection Time Receive d Time (Source) Location / / Volume Laterality Varies 03/26/2022 10:24 03/26/2022 AM SERVICE DESK ASSOCIATE 11:18 AM SERVICE DESK ASSOCIATE Narrative [facility] - 4:11 PM SERVICE DESK ASSOCIATE Beta-Hydroxybutyrate Karin WHITMAN LAB BLOOD ORDERABLES Performing Organization Address City/[facility]/ZIP Code Phon e Number [facility] Unless otherwise noted, [address] all lab tests performed by: Division of Pathology and Laboratory Medicine [address] [place] [address] Legionella Culture (03/26/2022 10:17 AM SERVICE DESK ASSOCIATE) Component Value Ref Test Analysis Performed At Patholo gist Range Method Time Signature Final Report No Legionella NM species isolated [facility] Path Review - The results have been review ed and electronically signed by Pathologist: NM Legionella Abiodun Vázquez MD, PhD #[id number] [facility] Specimen Anatomical Collection Method Collection Time Receive d Time (Source) Location / / Volume Laterality Tracheal 03/26/2022 10:17 03/26/2022 1:55 Aspirate AM SERVICE DESK ASSOCIATE PM SERVICE DESK ASSOCIATE Ellie Tay APRN MICROBIOLOGY - GENERAL ORDER YULIANA Performing Organization Address City/[facility]/ZIP Code Phon e Number [facility] Unless otherwise noted, [address] all lab tests performed by: Division of Pathology and Laboratory Medicine [address] [place] [address] [place] (ABNORMAL) POC Chem 8 (03/26/2022 10:01 AM SERVICE DESK ASSOCIATE) P athologist Signature POC NA 145 138 [...] Clean Dev Yes POC TELCOR Performing Lab [facility] POC TELCO R Comment: [facility] Clinical Lab, [address] [place] [address]; Lab Direct or: Marylou Olmstead MD; Waived Point of Care Testing - Luz Maria Vázquez MD Specimen Anatomical Collection Method Collection Time Receive d Time (Source) Location / / Volume Laterality Blood 03/26/2022 10:01 03/26/2022 AM SERVICE DESK ASSOCIATE 10:01 AM SERVICE DESK ASSOCIATE Idania Shah MD POCT ORDERABLES - DEVICE Performing Organization Address City/State/ZIP Code Phon e Number POC TELCOR Unless otherwise noted, [place] [address] lab tests performed by: Division of Pathology and Laboratory Medicine [address] [place] [address] (ABNORMAL) POC ABG (03/26/2022 9:55 AM SERVICE DESK ASSOCIATE)Only the most recent of2 results within the time period is included. athologist Signature POC AB pH 7.34 (L) 7.35 - 7.45 POC TELCOR Comment: The i-STAT is an analyzer used for in vi tro quantification of various analytes in whole blood. The device uses a single disposable cartridge which contains microfabricated sensors, a calibration [employer] fluidics system, and a waste chamber. Each [...] Clean Dev Yes POC TELCOR Performing Lab [facility] POC TELCO R Comment: [facility] Clinical Lab, [address] [place] [address]; Lab Direct or: Marylou Olmstead MD; Waived Point of Care Testing - Luz Maria Vázquez MD Specimen Anatomical Collection Method Collection Time Receive d Time (Source) Location / / Volume Laterality Blood 03/26/2022 9:55 AM 9:55 SERVICE DESK ASSOCIATE AM SERVICE DESK ASSOCIATE Idania Shah MD POCT ORDERABLES - DEVICE Performing Organization Address [facility] Phon e Number POC TELCOR Unless otherwise noted, [place] [address] lab tests performed by: Division of Pathology and Laboratory Medicine [address] [place] [address] Lower Respiratory Culture w/Gram Stain (03/26/2022 9:36 AM SERVICE DESK ASSOCIATE) Component Value Ref Test Analysis Performed At [facility] gist Range Method Time Signature Final Report No growth [facility] Path Review The results have been review ed and electronically signed by Pathologist: NM MD NORMAN CAMARILLO MD #[id number] A [facility] Gram Stain Few WBC's seen NM Report No organisms seen. [facility] Specimen Anatomical Collection Method Collection Time Receive d Time (Source) Location / / Volume Laterality Tracheal 03/26/2022 9:36 AM 1:55 Aspirate SERVICE DESK ASSOCIATE PM SERVICE DESK ASSOCIATE Ellie Tay APRN MICROBIOLOGY - GENERAL ORDER YULIANA Performing Organization Address City/State/ZIP Code Phon e Number [facility] CANCER Unless otherwise noted, [address] all lab tests performed by: Division of Pathology and Laboratory Medicine [address] [place] [employer] Culture w/Smear (03/26/2022 9:36 AM SERVICE DESK ASSOCIATE) Component Value Ref Test Analysis Performed At [facility] Range Method Time Signature Final Report No acid fast MARTY HENDERSON bacteria isolated [place] at 8 weeks. [facility] Path Review - Culture yield may be affecte d by sample quality, prior treatment, and transportation conditions. [place] [employer] ... BALDEV The results have been reviewed and electronically signed b y Pathologist: EVELINE Mcekon MD, PhD #[id number] C ENTER Acid Fast No Acid Fast NM Stain Truant Bacilli seen in [place] direct smear [facility] Specimen Anatomical Collection Method Collection Time Receive d Time (Source) Location / / Volume Laterality Tracheal 03/26/2022 9:36 AM 3 1:55 Aspirate SERVICE DESK ASSOCIATE PM SERVICE DESK ASSOCIATE Narrative [facility] - 3 5:56 PM CDT Cultures are held 8 weeks before finaliz ation. Ellie Tay APRN MICROBIOLOGY - GENERAL ORDER YULIANA Performing Organization Address City/[facility]/ZIP Code Phon e Number [facility] CANCER Unless otherwise noted, [address] all lab tests performed by: Division of Pathology and Laboratory Medicine [address] [place] Fungus Culture (03/26/2022 9:36 AM SERVICE DESK ASSOCIATE) Component Value Ref Test Analysis Performed At [facility] Range Method Time Signature Final Report No Fungi isolated. [facility] Path Review - Culture yield may be affecte d by sample quality, prior treatment, and transportation conditions. The results have been reviewed and electronically signed by Pathologist: NM Fungus Abiodun Vázquez MD, PhD #[id number] [facility] Specimen Anatomical Collection Method Collection Time Receive d Time (Source) Location / / Volume Laterality Tracheal 03/26/2022 9:36 AM 3 1:55 Aspirate SERVICE DESK ASSOCIATE PM SERVICE DESK ASSOCIATE Narrative [facility] - 3 4:14 PM SERVICE DESK ASSOCIATE Cultures are held for 4 weeks before fin alization. Ellie Tay APRN MICROBIOLOGY - GENERAL ORDER YULIANA Performing Organization Address City/[facility]/ZIP Code Phon e Number [facility] CANCER Unless otherwise noted, [address] all lab tests performed by: Division of Pathology and Laboratory Medicine [address] [facility] CT Chest Pulmonary Embolism with Contrast (03/26/2022 8:42 AM SERVICE DESK ASSOCIATE) Anatomical Region Laterality Modality Chest Computed Tomography Specimen (Source) Anatomical Collection Method Collection Time Re ceived Time Location / / Volume Laterality 03/26/2022 8:44 AM SERVICE DESK ASSOCIATE Impressions 03/26/2022 8:54 AM SERVICE DESK ASSOCIATE Technically adequate exam. No evidence for pulmonary embolism. Development of right greater than left p ulmonary opacities suspicious for pneumonia. Superimposed interstitial pulmonary edema or pulmonary hemorrhage cannot be excluded Small bilateral pleural effusions Increase in size of mediastinal and leti r lymph nodes, likely reactive Narrative 03/26/2022 8:54 AM SERVICE DESK ASSOCIATE FULL RESULT: Examination: CT CHEST PULMONARY EMBOLISM [...] CT ORDERABLES (ABNORMAL) VBG (03/26/2022 5:28 AM SERVICE DESK ASSOCIATE) athologist Signature pH Kojo 7.31 (L) 7.32 - 7.43 [facility] Comment: Results are corrected for a bod y temp of 37C pCO2 Kojo 35.9 (L) 41.0 - 51.0 mmHg NM MD CARINE Storey [facility] pO2 Kojo 56 mmHg NM MD SANTIAGO [facility] R CENTER HCO3 Kojo 18 (L) 21 - 28 mmol/L [facility] Base Excess Kojo -7 (L) -2 - 3 mmol/L NM MD MOSES MARK [facility] [place] O2 Sat Kojo 90 % NM [facility] Specimen Anatomical Collection Method Collection Time Receive d Time (Source) Location / / Volume Laterality Blood 03/26/2022 5:28 AM 5:41 SERVICE DESK ASSOCIATE AM SERVICE DESK ASSOCIATE Robin Noe APRN LAB BLOOD ORDERABLES Performing Organization Address City/State/ZIP Code Phon e Number [facility] CANCER Unless otherwise noted, [address] all lab tests performed by: Division of Pathology and Laboratory Medicine [address] [place] [address] C Peptide (03/26/2022 12:25 AM SERVICE DESK ASSOCIATE) athologist Signature C-Peptide 2.34 1.10 - 4.40 [facility] ng/mL CANCER CENTER Specimen Anatomical Collection Method Collection Time Receive d Time (Source) Location / / Volume Laterality Blood 03/26/2022 12:25 03/26/2022 1:05 AM SERVICE DESK ASSOCIATE AM SERVICE DESK ASSOCIATE Paola Dill MD LAB BLOOD ORDERABLES Performing Organization Address City/[facility]/ZIP Code Phon e Number [facility] CANCER Unless otherwise noted, [address] all lab tests performed by: Division of Pathology and Laboratory Medicine [address] [place] [address] EKG, 12-Lead (Portable) (03/26/2022)Only the most recent of4 resultswithin the time period is included. Specimen (Source) Anatomical Location Collection Method / Collectio n Time Received Time / Laterality Volume Narrative This result has an attachment that is no t available. Satya Rust APRN ECG ORDERABLES Performing Organization Address City/[facility]/ZIP Code Phon e Number MICHAEL IECG POC UHCG (03/25/2022 1:24 AM SERVICE DESK ASSOCIATE) athologist Signature POC U hCG Negative Negative [...] hCG Cont Valid POC TELCOR Performing Lab [facility] POC TELCO R Comment: [facility] Clinical Lab, [address] [place] [address], [place] [address]; Lab Direct or: Marylou Olmstead MD; Waived Point of Care Testing - Luz Maria Vázquez MD Specimen Anatomical Collection Method Collection Time Receive d Time (Source) Location / / Volume Laterality Urine 03/25/2022 1:24 AM 3 1:24 SERVICE DESK ASSOCIATE AM SERVICE DESK ASSOCIATE Paola Dill MD POCT ORDERABLES - DEVICE Performing Organization Address City/[facility]/ZIP [facility] Phon e Number POC TELCOR Unless otherwise noted, [place] [address] lab tests performed by: Division of Pathology and Laboratory Medicine [address] [place] [address] (ABNORMAL) Urinalysis Microscopic Exam (03/25/2022 12:36 AM SERVICE DESK ASSOCIATE) P athologist Signature UA WBC >182 (H) 0 - 2 /HPF [facility] Comment: Some reporting parameters within the Uri nalysis test have changed due to the implementation of new instrumentation in the [place], allowing greater sensitivity of measurement. Urinalysis results rep orted by the [facility] using existing instrumentation, as well as Urinalysis t esting performed manually or by backup methodology at the [facility] will remain relatively unchanged. New reporting parameters and units will not be reported for all campuses. UA RBC 11 (H) 0 - 2 /HPF [facility] UA Mucous TRACE Not Seen-Trace /HPF [facility] UA Bacteria NOT SEEN NOT SEEN /HPF [facility] UA Squam Epi 1+ (A) None-Occasional /HPF [facility] Specimen Anatomical Collection Method Collection Time Receive d Time (Source) Location / / Volume Laterality Urine 03/25/2022 12:36 03/25/2022 AM SERVICE DESK ASSOCIATE 12:46 AM SERVICE DESK ASSOCIATE Paola Dill MD LAB BLOOD ORDERABLES Performing Organization Address City/[facility]/ZIP [facility] Phon e Number [facility] Unless otherwise noted, [address] all lab tests performed by: Division of Pathology and Laboratory Medicine [facility] [place] (ABNORMAL) Urinalysis w/Microscopic if Indicated (03/25/2022 12:36 AM SERVICE DESK ASSOCIATE) [facility] gist Method Time Signature UA Color Yellow Straw-Yel [facility] UA Appear Hazy (A) Clear [facility] UA Glucose 100 (A) NEG mg/dL [facility] UA Bili NEG NEG [facility] UA Ketones 80 (A) NEG mg/dL [facility] UA Spec Grav 1.024 1.003 - [facility] [[email or web address]] 1.035 [facility] UA Blood Moderate (A) NEG [facility] UA pH 6.0 5.0 - 9.0 [facility] UA Protein 300 (A) NEG mg/dL [facility] UA Urobilinogen 1+ (A) NEG [facility] UA Nitrite POS (A) NEG [facility] UA Leuk Est Large (A) NEG [facility] Specimen Anatomical Collection Method Collection Time Receive d Time (Source) Location / / Volume Laterality Urine 03/25/2022 12:36 03/25/2022 AM SERVICE DESK ASSOCIATE 12:46 AM SERVICE DESK ASSOCIATE Paola Dill MD URINE ORDERABLES Performing Organization Address City/State/ZIP Code Phon e Number [facility] Unless otherwise noted, [address] all lab tests performed by: Division of Pathology and Laboratory Medicine [facility] (ABNORMAL) Urine Culture (03/25/2022 12:36 AM SERVICE DESK ASSOCIATE) Component Value Ref Test Analysis Performed At [facility] gist Range Method Time Signature Final Report 10 - 50,000 cfu/ml Escherichia coli NM ... [place] <10,000 cfu/ml Normal site nida present. [facility] (A) [place] Path Review - The results have been review ed and electronically signed by Pathologist: NM Urine NORMAN CAMARILLO MD #[id number] Ania BRYANT ([facility] Organism Escherichia coli [facility] [[email or web address]] (Ania) [facility] Specimen Anatomical Collection Method Collection Time Receive d Time (Source) Location / / Volume Laterality Urine 03/25/2022 12:36 03/25/2022 1:15 AM SERVICE DESK ASSOCIATE AM SERVICE DESK ASSOCIATE Narrative [facility] - 3 3:53 PM SERVICE DESK ASSOCIATE Early Sepsis Intervention Organism Antibiotic Method Susceptibility [...] - GENERAL ORDER YULIANA Performing Organization Address City/[facility] Phon e Number [facility] Unless otherwise noted, [address] all lab tests performed by: Division of Pathology and Laboratory Medicine [place] [place] Confirm ABORh (03/24/2022 11:29 PM SERVICE DESK ASSOCIATE) athologist [facility] ABORh Confirm. A POS [facility] Specimen Anatomical Collection Method Collection Time Receive d Time (Source) Location / / Volume Laterality Blood 03/24/2022 11:29 03/24/2022 PM SERVICE DESK ASSOCIATE 11:43 PM SERVICE DESK ASSOCIATE Paola Dill MD BLOOD BANK TEST ORDERABLES Performing Organization Address [facility] Phon e Number [facility] Unless otherwise noted, [address] all lab tests performed by: Division of Pathology and Laboratory Medicine [address] (ABNORMAL) POC VBG+Lac (03/24/2022 11:18 PM SERVICE DESK ASSOCIATE) athologist [facility] POC VB pH 7.39 7.31 - POC [...] Clean Dev Yes POC TELCOR Performing Lab [facility] POC TELCO R Comment: [facility] Clinical Lab, [address] [place] [address]; Lab Direct or: Marylou Olmstead MD; Waived Point of Care Testing - Luz Maria Vázquez MD Specimen Anatomical Collection Method Collection Time Receive d Time (Source) Location / / Volume Laterality Blood 03/24/2022 11:18 03/24/2022 PM SERVICE DESK ASSOCIATE 11:18 PM SERVICE DESK ASSOCIATE Paola Dill MD POCT ORDERABLES - DEVICE Performing Organization Address City/State/ZIP Code Phon e Number POC TELCOR Unless otherwise noted, [place] [address] lab tests performed by: Division of Pathology and Laboratory Medicine [address] [place] [address] Respiratory Multiplex PCR Panel, Nasopharyngeal Swab (03/24/2022 11:10 PM SERVICE DESK ASSOCIATE) Component Value Ref Range Test Analysis Performed Pathologis t Method Time At [facility] RM Source Not UT MD Applicable [facility] Adenovirus Not Detected Not UT Detected [facility] Coronavirus 229E Not Detected Not [place] Detected [facility] Coronavirus HKU1 Not Detected Not [place] Detected [facility] Coronavirus NL63 Not Detected Not [place] Detected [facility] Coronavirus OC43 Not Detected Not [place] Detected [facility] COVID19 Not Detected Not UT (SARS-CoV-2) Detected [facility] Human Not Detected Not [place] MD Metapneumovirus Detected [facility] Human Not Detected Not [place] MD Rhinovirus/Enterov Detected [facility] Influenza A Not Detected Not NM MD Detected [facility] Influenza A H1 Not Detected Not [place] MD Detected [facility] Influenza A H1 Not Detected Not NM MD 2009 Detected [facility] Influenza A H3 Not Detected Not [place] MD Detected [facility] Influenza B Not Detected Not NM MD Detected [facility] Parainfluenza 1 Not Detected Not NM MD Detected [facility] Parainfluenza 2 Not Detected Not NM MD Detected [facility] Parainfluenza 3 Not Detected Not NM MD Detected [facility] Parainfluenza 4 Not Detected Not [place] MD Detected [facility] Respiratory Not Detected Not [facility] [[email or web address]] Syncytial Virus Detected [facility] Bordetella Not Detected Not [facility] [[email or web address]] Parapertussis Detected [facility] Bordetella Not Detected Not [facility] [[email or web address]] pertussis Detected [facility] Chlamydiophila Not Detected Not [facility] [[email or web address]] pneumoniae Detected [facility] Mycoplasma Not Detected Not [facility] [[email or web address]] pneumoniae Detected [facility] Specimen (Source) Anatomical Collection Method Collection Time Re ceived Time Location / / Volume Laterality Nasopharyngeal Swab 03/24/2022 11:10 02/25 PM SERVICE DESK ASSOCIATE 11:26 PM SERVICE DESK ASSOCIATE Narrative [facility] - 12:28 AM SERVICE DESK ASSOCIATE Has patient had a positive for COVID-19 result in the last 3 months?->No The BioFire RP2.1 is a real-time, nested multiplexed polymerase chain reaction test designed to simultaneously identify nucleic acids from 22 different viruses and bacteria associated with respiratory tract infect ion, including SARS-CoV-2, from a single nasopharyngeal swab (BROWNFIELD REDEVELOPMENT SPECIALIST) specimen obtained from individuals suspected of respiratory [...] that may not be detected by an BROWNFIELD REDEVELOPMENT SPECIALIST specimen. Internal controls are used to monitor [...] high-complexity tests. The Microbiology Laboratory at [facility], CLIA Accreditation #[id number] and CAP Accreditation #[id number], verified the per formance characteristics of this assay. Microbiology Laboratory at [facility] performs the assay using the Podcast Ready System. Paola Dill MD MICROBIOLOGY - GENERAL ORDER YULIANA Performing Organization Address City/[facility]/ZIP Code Phon e Number [facility] Unless otherwise noted, [address] all lab tests performed by: Division of Pathology and Laboratory Medicine [address] [place] [address] (ABNORMAL) LDH (03/24/2022 11:10 PM SERVICE DESK ASSOCIATE) P athologist Signature LDH 288 (H) 135 - 214 [facility] Comment: Results greater than [...] Volume Laterality Blood 03/24/2022 11:10 03/24/2022 PM SERVICE DESK ASSOCIATE 11:16 PM SERVICE DESK ASSOCIATE Paola Dill MD LAB BLOOD ORDERABLES Performing Organization Address [facility] Phon e Number [facility] Unless otherwise noted, [address] all lab tests performed by: Division of Pathology and Laboratory Medicine [facility] [place] OSI CT Abdomen and Pelvis (03/24/2022 4:15 PM SERVICE DESK ASSOCIATE) Specimen (Source) Anatomical Location Collection Method / Collectio n Time Received Time / Laterality Volume Narrative Systemgenerated, Documentation - 023 4:15 PM SERVICE DESK ASSOCIATE Study acquired at another institution. For comparison only. No [facility] originated interpretation requested or a vailable. Lolita Ann MD IMG OUTSIDE IMAGE ORDERABLES MRI Thoracic Spine with and without Contrast (03/14/2022 6:31 PM SERVICE DESK ASSOCIATE) Anatomical Region Laterality Modality T-spine, Spine Magnetic Resonance Specimen (Source) Anatomical Collection Method Collection Time Re ceived Time Location / / Volume Laterality 03/14/2022 7:24 PM SERVICE DESK ASSOCIATE Impressions 03/14/2022 7:37 PM SERVICE DESK ASSOCIATE A tiny focus of low T1 signal in the T1 vertebral body and a small focus of low T1 signal in the T8 vertebral body are indeterminate and may represent hemangiomas. Follow-up MRI can be obtained for further evaluation. Narrative 03/14/2022 7:37 PM SERVICE DESK ASSOCIATE FULL RESULT: Examination: MRI THORACIC SPINE W [...] ORDERABLES COVID-19 (SARS-CoV-2) PCR-Asymptomatic (03/13/2022 2:16 PM SERVICE DESK ASSOCIATE) [facility] Method Time Signature COVID19 (SARS Not Detected Not Detected [facility] CoV-2) [facility] Comment: This test is a [...] fact sheet for patients provided by the loading dock hand ( [employer]) can be rev iewed at: https://www.fda.gov/media/452494/halimaloa d. A fact sheet for Health Care providers is provided by the loading dock hand ([employer]) and can be reviewed at: https://www.fda.gov/media/295828/download Results must be interpreted within the c [...] verified by the Microbiology Laboratory at [facility], CLIA Accreditation #: [id number] and CAP Accreditation #: [id number]. COVID19 SARS Source INTERNAL SALES ENGINEER Swab NM MD LOPES [facility] COVID19 SARS Indication Pre-Out of OR Procedure [facility] Specimen (Source) Anatomical Collection Method Collection Time Re ceived Time Location / / Volume Laterality Nasopharyngeal Swab 03/13/2022 2:16 03/13 PM SERVICE DESK ASSOCIATE 3:45 PM SERVICE DESK ASSOCIATE Lolita Ann MD MICROBIOLOGY - GENERAL ORDER YULIANA Performing Organization Address City/State/ZIP Code Phon e Number [facility] Unless otherwise noted, [place] [address] [place] all lab tests performed by: Division of Pathology and Laboratory Medicine [address] [place] [address] US HEAD NECK SOFT TISSUE (03/13/2022 2:05 PM SERVICE DESK ASSOCIATE) Anatomical Region Laterality Modality Head, Neck Ultrasound Specimen (Source) Anatomical Collection Method Collection Time Re ceived Time Location / / Volume Laterality 03/13/2022 2:01 PM SERVICE DESK ASSOCIATE Impressions 03/13/2022 3:41 PM SERVICE DESK ASSOCIATE 1. Majority of the central compartment nodules have the appearance of benign lymph nodes, and can be followed sonographically. 2. No definite lateral compartment lym phadenopathy. Mildly prominent nodes are seen in the superior neck in a symmetric fashion, to be followed. Narrative 03/13/2022 3:41 PM SERVICE DESK ASSOCIATE FULL RESULT: Examination: US HEAD NECK SOFT [...] US ORDERABLES PTH Intact (03/13/2022 12:30 PM SERVICE DESK ASSOCIATE) athologist Signature PTH Intact 21.0 15.0 - 65.0 [facility] pg/mL [facility] [place] Specimen Anatomical Collection Method Collection Time Receive d Time (Source) Location / / Volume Laterality Blood 03/13/2022 12:30 03/13/2022 PM SERVICE DESK ASSOCIATE 12:55 PM SERVICE DESK ASSOCIATE Lolita Ann MD LAB BLOOD ORDERABLES Performing Organization Address City/State/ZIP Code Phon e Number [facility] Unless otherwise noted, [address] all lab tests performed by: Division of Pathology and Laboratory Medicine [address] [place] [address] Hepatitis C Virus Ab (03/13/2022 12:30 PM SERVICE DESK ASSOCIATE) [facility] Method [facility] Signature HCVAb. Non Reactive Non Reactive [facility] Comment: Antibody detection in the immunocompromi sed and immunosuppressed population may be delayed or absent entirely. Therefore serial testing, correlation with other clinical findings, and supplemental testin g (if available) should be taken into co nsideration when interpreting the results. Specimen Anatomical Collection Method Collection Time Receive d Time (Source) Location / / Volume Laterality Blood 03/13/2022 12:30 03/13/2022 1:10 PM SERVICE DESK ASSOCIATE PM SERVICE DESK ASSOCIATE Lolita Ann MD LAB BLOOD ORDERABLES Performing Organization Address City/State/ZIP Code Phon e Number [facility] Unless otherwise noted, [address] all lab tests performed by: Division of Pathology and Laboratory Medicine [address] [place] [address] (ABNORMAL) Vitamin D 25OH (03/13/2022 12:30 PM SERVICE DESK ASSOCIATE) athologist Signature Vitamin D 25 21 (L) 30 - 100 [facility] [place] ng/mL [facility] Comment: Reference Range: Deficiency: <10 ng/mL Insufficiency: 10-29 ng/mL Sufficiency: 30-100 ng/mL Potential toxicity: >100 ng/mL Specimen Anatomical Collection Method Collection Time Receive d Time (Source) Location / / Volume Laterality Blood 03/13/2022 12:30 03/13/2022 PM SERVICE DESK ASSOCIATE 12:55 PM SERVICE DESK ASSOCIATE Lolita Ann MD LAB BLOOD ORDERABLES Performing Organization Address City/[facility]/ZIP Code Phon e Number [facility] Unless otherwise noted, [address] all lab tests performed by: Division of Pathology and Laboratory Medicine [address] [place] [address] Thyroglobulin (03/13/2022 12:30 PM SERVICE DESK ASSOCIATE) athologist Signature Thyroglobulin 2.98 1.59 - [facility] 50.03 ng/mL [facility] Comment: Reference range in athyrotic patients is <0.1 ng/mL. Due to varying antigen specificity, affi nity and avidity of capture and conjugate antibodies in their epitope reactions, some thyroglobulin samples may not dilute linearly when results exceed 450 ng/mL. Thyroglob Ab <0.9 <=3.9 IU/ml [facility] Comment: Due to varying antigen specific ity, affinity and avidity of capture and conjugate antibodies in their epitope re actions, some thyroglobulin antibody samples may not dilute linearly when results exc eed 1650 IU/mL. Specimen Anatomical Collection Method Collection Time Receive d Time (Source) Location / / Volume Laterality Blood 03/13/2022 12:30 03/13/2022 PM SERVICE DESK ASSOCIATE 12:55 PM SERVICE DESK ASSOCIATE Lolita Ann MD LAB BLOOD ORDERABLES Performing Organization Address City/[facility]/ZIP Code Phon e Number [facility] Unless otherwise noted, [address] all lab tests performed by: Division of Pathology and Laboratory Medicine [address] [place] [address] [place] (ABNORMAL) TSH (03/13/2022 12:30 PM SERVICE DESK ASSOCIATE) athologist Signature TSH 0.01 (L) 0.27 - 4.20 [facility] mcunit/mL [facility] Specimen Anatomical Collection Method Collection Time Receive d Time (Source) Location / / Volume Laterality Blood 03/13/2022 12:30 03/13/2022 PM SERVICE DESK ASSOCIATE 12:55 PM SERVICE DESK ASSOCIATE Lolita Ann MD LAB BLOOD ORDERABLES Performing Organization Address City/[facility]/ZIP Code Phon e Number [facility] Unless otherwise noted, [address] all lab tests performed by: Division of Pathology and Laboratory Medicine [address] [place], [place] [address]vard OSI US Thyroid (01/30/2022 1:11 PM SERVICE DESK ASSOCIATE) Specimen (Source) Anatomical Location Collection Method / Collectio n Time Received Time / Laterality Volume Narrative Systemgenerated, Documentation - 022 1:12 PM SERVICE DESK ASSOCIATE Study acquired at another institution. For comparison only. No MD [facility] originated interpretation requested or a vailable. 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
--- OUTSIDE RECORDS SUMMARY | 2022-10-06 02:04 | XMS REPORT | Continuity of Care Document ---
:1995 Author Organization [facility] t Address [address] [facility] [address] [place] [address] Care Team Providers Name Role Phone Frances HENDERSON, Conrad Primary Care Physician [phone] Kang HENDERSON, Megan Jorge Attending Clinician Fahad RN, Leroy Attending Clinician Darrian PANDA, Shereen Attending Clinician Unavailable Kamla HENDERSON, Inge Mahmood Attending Clinician Unavailable Seth HENDERSON, Johnson Attending Clinician Aniyah HENDERSON, Paola Moore Attending Clinician Hanna HENDERSON, Bud Attending Clinician Magdiel Olmstead MD Attending Clinician Kiara Shah MD Attending Clinician [phone] Renard Carpenter MD, Satya Lambert Attending Clinician [phone] Dafne Zhang Attending Clinician Ry Noe APRN [...] [place] at[place] athy 00 MD [facility] Acute Acute Disease Active Univers congestive congestive 2-06 it y of heart heart 00:00: [place] [facility] Disease Active Univers respirator respirator 1-31 [place] y [place] distress [place] syndrome syndrome 00 MD [facility] Pyelonephr Pyelonephr Disease Active U nivers itis itis 1-30 ity of 00:00: [place] 00 MD [facility] Current Current Disease Active Univers use of use of 1-30 ity of insulin insulin 00:00: [place] 00 MD [facility] Type 2 Type 2 Disease Active Univers diabetes diabetes 1-18 ity of mellitus mellitus 00:00: [place] with with 00 hyperglyce hyperglyce An dergopal [facility] Metastasis Metastasis Disease Active 2020-0 U nivers to head to head 3-18 ity of and neck and neck 00:00: [place] lymph node lymph node 00 MD [facility] Pulmonary Pulmonary Disease Active 2019-0 Uni vers nodules nodules 3-18 ity of 00:00: [place] 00 MD [facility] Postoperat Postoperat Disease Active 2020-0 U nivers bryon bryon 3-18 ity of hypothyroi [place]othyroi [place] dis[place] dism 00 MD [facility] 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 Family History Family Member Diagnosis Comments Start Date Stop Date Source Natural father Hyperlipidemia Univer sity of [facility] Maternal aunt Diabetes [facility] Maternal aunt Hypertension Universit y of [facility] Maternal aunt Hyperlipidemia Univers ity of [facility] Maternal grandmother Diabetes Univ ersity of [facility] Natural mother Hypertension Universi ty of [facility] Paternal grandmother Diabetes Univ ersity of [facility] Paternal grandmother Hypertension Un iversity of [facility] Social History Social Habit Start Date Stop Date Quantity Comments Source Exposure to 2022-07-16 2022-07-26 Not sure [facility]-CoV-2 00:00:00 10:36:00 Toby horta (event) [facility] Alcohol intake 2022-07-15 2022-07-15 Current drinker of Un iversity of 00:00:00 00:00:00 alcohol (finding) [facility] Tobacco use and 2022-03-13 2022-03-13 Smokeless tobacco Un iversity of exposure 00:00:00 00:00:00 non-user Toby horta [facility] Alcohol Comment 2022-03-13 2022-03-13 occasionally as Univ ersity of 00:00:00 00:00:00 reported by [place] MD Hardeep soares patient. [facility] Sex Assigned At [birth year] F Universit y of 00:00:00 00:00:00 Toby horta [facility] Smoking Status Start Date Stop Date Source Never smoked tobacco [facility] Medications Ordered Filled Start Stop Current Ordering Indication Dosage Frequency Signature Comments Components Source Medication Medication Date Date Medication? Clinician (SIG) Name Name FERROUS Yes 28mg Take 28 mg Univ ers SULFATE 5-22 by mouth ity of ORAL 13:57: daily. [place] Gifty mireles [facility] FERROUS 2022-0 Yes 28mg Take 28 mg Univ ers SULFATE 5-22 by mouth ity of ORAL 13:57: daily. [place] Gifty mireles [facility] FERROUS 2022-0 Yes 28mg Take 28 mg Univ ers SULFATE 5-22 by mouth ity of ORAL 13:57: daily. Toby Durbin MD [facility] FERROUS 2022-0 Yes 28mg Take 28 mg Univ ers SULFATE 5-22 by mouth ity of ORAL 13:57: [facility] Yes 28mg Take 28 mg Univ ers SULFATE 5-22 by mouth ity of ORAL 13:57: [facility]. [facility]0 Yes 28mg Take 28 mg Univ ers SULFATE 5-22 by mouth ity of ORAL 13:57: daily. Toby Durbin MD [facility] furosemide Yes Stress 40mg Take 1 Uni vers (LASIX) 40 2-08 induced tablet (40 ity of mg tablet 00:00: cardiomyopa mg) by [address] daily[address] [facility] furosemide Yes Stress 40mg Take 1 Uni vers (LASIX) 40 2-08 induced tablet (40 ity of mg tablet 00:00: cardiomyopa mg) by [address] daily[address] [facility] furosemide Yes Stress 40mg Take 1 Uni vers (LASIX) 40 2-08 induced tablet (40 ity of mg tablet 00:00: cardiomyopa mg) by [address] daily[address] [facility] furosemide Yes Stress 40mg Take 1 Uni vers (LASIX) 40 2-08 induced tablet (40 ity of mg tablet 00:00: cardiomyopa mg) by [address] mouth daily. [facility] furosemide Yes Stress 40mg Take 1 Uni vers (LASIX) 40 2-08 induced tablet (40 ity of mg tablet 00:00: cardiomyopa mg) by [address] mouth daily. [facility] furosemide Yes Stress 40mg Take 1 Uni vers (LASIX) 40 2-08 induced tablet (40 ity of mg tablet 00:00: cardiomyopa mg) by [address] mouth daily. [facility] furosemide Yes Stress 40mg Take 1 Uni vers (LASIX) 40 2-08 induced tablet (40 ity of mg tablet 00:00: cardiomyopa mg) by [address] mouth daily. [facility] furosemide Yes Stress 40mg Take 1 Uni vers (LASIX) 40 2-08 induced tablet (40 ity of mg tablet 00:00: cardiomyopa mg) by [place] [facility] mouth daily. [facility] furosemide Yes Stress 40mg Take 1 Uni vers (LASIX) 40 2-08 induced tablet (40 ity of mg tablet 00:00: cardiomyopa mg) by [place] [facility] mouth daily. [facility] furosemide Yes Stress 40mg Take 1 Uni vers (LASIX) 40 2-08 induced tablet (40 ity of mg tablet 00:00: cardiomyopa mg) by [place] [facility] mouth daily. [facility] furosemide Yes Stress 40mg Take 1 Uni vers (LASIX) 40 2-08 induced tablet (40 ity of mg tablet 00:00: cardiomyopa mg) by [place] [facility] mouth daily. [facility] furosemide Yes Stress 40mg Take 1 Uni vers (LASIX) 40 2-08 induced tablet (40 ity of mg tablet 00:00: cardiomyopa mg) by [place] [facility] mouth daily. [facility] FERROUS Yes 28mg Take 28 mg Univ ers SULFATE 2-07 by mouth ity of ORAL 14:05: daily. [place] [address] [facility] FERROUS 0 Yes 28mg Take 28 mg Univ ers SULFATE 2-07 by mouth ity of ORAL 14:05: daily. [place] [address] [facility] FERROUS 2022-0 Yes 28mg Take 28 mg Univ ers SULFATE 2-07 by mouth ity of ORAL 14:05: daily. [place] [address] [facility] FERROUS 2022-0 Yes 28mg Take 28 mg Univ ers SULFATE 2-07 by mouth ity of ORAL 14:05: daily. [place] [address] [facility] FERROUS 2022-0 Yes 28mg Take 28 mg Univ ers SULFATE 2-07 by mouth ity of ORAL 14:05: daily. [place] [address] [facility] FERROUS 2022-0 Yes 28mg Take 28 mg Univ ers SULFATE 2-07 by mouth ity of ORAL 14:05: daily. [place] [address] [facility] metoprolol Yes Stress 12.5mg Take 0.5 Univers succinate 2-07 induced tablets ity of (TOPROL XL) 00:00: cardiomyopa (12.5 mg) [place] 25 mg 24 hr 00 thy by mouth MD tablet twice [place] daily. n [facility] sacubitriL- Yes Stress 1{tbl} Take 1 Univers valsartan 2-07 induced tablet by it y of (ENTRESTO) 00:00: cardiomyopa mouth [place] 24 mg-26 mg 00 thy every 12 MD tab per (twelve) [place] tablet hours. n [facility] famotidine Yes Papillary 20mg Take 1 Univers (PEPCID) 20 2-07 thyroid tablet (20 ity of mg tablet 00:00: carcinoma mg) by [place] 00 mouth MD twice [place] daily. n [facility] insulin Yes Type 2 10U Inject [...] hyperglycem daily with [place] ia breakfast. n [facility] insulin Yes Type 2 5U Inject Univer [...] mouth MD tablet twice [place] daily. n [facility] sacubitriL- Yes Stress 1{tbl} Take 1 Univers valsartan 2-07 induced tablet by it y of (ENTRESTO) 00:00: cardiomyopa mouth [place] 24 mg-26 mg 00 thy every 12 MD tab per (twelve) [place] tablet hours. n [facility] famotidine Yes Papillary 20mg Take 1 Univers (PEPCID) 20 2-07 thyroid tablet (20 ity of mg tablet 00:00: carcinoma mg) by [place] 00 mouth MD twice [place] daily. n [facility] insulin Yes Type 2 10U Inject [...] hyperglycem daily with [place] ia breakfast. n [facility] insulin Yes Type 2 5U Inject Univer [...] mouth MD tablet twice [place] daily. n [facility] sacubitriL- Yes Stress 1{tbl} Take 1 Univers valsartan 2-07 induced tablet by it y of (ENTRESTO) 00:00: cardiomyopa mouth [place] 24 mg-26 mg 00 thy every 12 MD tab per (twelve) [place] tablet hours. n [facility] famotidine Yes Papillary 20mg Take 1 Univers (PEPCID) 20 2-07 thyroid tablet (20 ity of mg tablet 00:00: carcinoma mg) by [place] 00 mouth MD twice [place] daily. n [facility] insulin Yes Type 2 10U Inject [...] hyperglycem daily with [place] ia breakfast. n [facility] insulin Yes Type 2 5U Inject Univer [...] mouth MD tablet twice [place] daily. n [facility] sacubitriL- Yes Stress 1{tbl} Take 1 Univers valsartan 2-07 induced tablet by it y of (ENTRESTO) 00:00: cardiomyopa mouth [place] 24 mg-26 mg 00 thy every 12 MD tab per (twelve) [place] tablet hours. n [facility] famotidine Yes Papillary 20mg Take 1 Univers (PEPCID) 20 2-07 thyroid tablet (20 ity of mg tablet 00:00: carcinoma mg) by [place] 00 mouth MD twice [place] daily. n [facility] insulin Yes Type 2 10U Inject [...] hyperglycem daily with [place] ia breakfast. n [facility] insulin Yes Type 2 5U Inject Univer [...] mouth MD tablet twice [place] daily. n [facility] sacubitriL- Yes Stress 1{tbl} Take 1 Univers valsartan 2-07 induced tablet by it y of (ENTRESTO) 00:00: cardiomyopa mouth [place] 24 mg-26 mg 00 thy every 12 MD tab per (twelve) [place] tablet hours. n [facility] famotidine Yes Papillary 20mg Take 1 Univers (PEPCID) 20 2-07 thyroid tablet (20 ity of mg tablet 00:00: carcinoma mg) by [place] mouth MD twice [place] daily. n [facility] insulin Yes Type 2 10U Inject [...] hyperglycem daily with [place] ia breakfast. n [facility] insulin Yes Type 2 5U Inject Univer [...] mouth MD tablet twice [place] daily. n [facility] sacubitriL- Yes Stress 1{tbl} Take 1 Univers valsartan 2-07 induced tablet by it y of (ENTRESTO) 00:00: cardiomyopa mouth [place] 24 mg-26 mg 00 thy every 12 MD tab per (twelve) [place] tablet hours. n [facility] famotidine Yes Papillary 20mg Take 1 Univers (PEPCID) 20 2-07 thyroid tablet (20 ity of mg tablet 00:00: carcinoma mg) by [place] mouth MD twice [place] daily. n [facility] insulin Yes Type 2 10U Inject [...] hyperglycem daily with [place] ia breakfast. n [facility] insulin Yes Type 2 5U Inject Univer [...] mouth MD tablet twice [place] daily. n [facility] sacubitriL- Yes Stress 1{tbl} Take 1 Univers valsartan 2-07 induced tablet by it y of (ENTRESTO) 00:00: cardiomyopa mouth [place] 24 mg-26 mg 00 thy every 12 MD tab per (twelve) [place] tablet hours. n [facility] famotidine Yes Papillary 20mg Take 1 Univers (PEPCID) 20 2-07 thyroid tablet (20 ity of mg tablet 00:00: carcinoma mg) by [place] mouth MD twice [place] daily. n [facility] insulin Yes Type 2 10U Inject [...] hyperglycem daily with [place] ia breakfast. n [facility] insulin Yes Type 2 5U Inject Univer [...] mouth MD tablet twice [place] daily. n [facility] sacubitriL- Yes Stress 1{tbl} Take 1 Univers valsartan 2-07 induced tablet by it y of (ENTRESTO) 00:00: cardiomyopa mouth [place] 24 mg-26 mg 00 thy every 12 MD tab per (twelve) [place] tablet hours. n [facility] famotidine Yes Papillary 20mg Take 1 Univers (PEPCID) 20 2-07 thyroid tablet (20 ity of mg tablet 00:00: carcinoma mg) by [place] mouth MD twice [place] daily. n [facility] insulin Yes Type 2 10U Inject [...] hyperglycem daily with [place] ia breakfast. n [facility] insulin Yes Type 2 5U Inject Univer [...] mouth MD tablet twice [place] daily. n [facility] sacubitriL- Yes Stress 1{tbl} Take 1 Univers valsartan 2-07 induced tablet by it y of (ENTRESTO) 00:00: cardiomyopa mouth [place] 24 mg-26 mg 00 thy every 12 MD tab per (twelve) Anders[place] tablet hours. n [facility] famotidine Yes Papillary 20mg Take 1 Univers (PEPCID) 20 2-07 thyroid tablet (20 ity of mg tablet 00:00: carcinoma mg) by [place] mouth MD twice [place] daily. n [facility] insulin Yes Type 2 10U Inject [...] hyperglycem daily with [place] ia breakfast. n [facility] insulin Yes Type 2 5U Inject Univer [...] mouth MD tablet twice [place] daily. n [facility] sacubitriL- Yes Stress 1{tbl} Take 1 Univers valsartan 2-07 induced tablet by it y of (ENTRESTO) 00:00: cardiomyopa mouth [place] 24 mg-26 mg 00 thy every 12 MD tab per (twelve) Anders[place] tablet hours. n [facility] famotidine Yes Papillary 20mg Take 1 Univers (PEPCID) 20 2-07 thyroid tablet (20 ity of mg tablet 00:00: carcinoma mg) by [place] mouth MD twice [place] daily. n [facility] insulin Yes Type 2 10U Inject [...] hyperglycem daily with [place] ia breakfast. n [facility] insulin Yes Type 2 5U Inject Univer [...] mouth MD tablet twice [place] daily. n [facility] sacubitriL- Yes Stress 1{tbl} Take 1 Univers valsartan 2-07 induced tablet by it y of (ENTRESTO) 00:00: cardiomyopa mouth [place] 24 mg-26 mg 00 thy every 12 MD tab per (twelve) Anders[place] tablet hours. n [facility] famotidine Yes Papillary 20mg Take 1 Univers (PEPCID) 20 2-07 thyroid tablet (20 ity of mg tablet 00:00: carcinoma mg) by [place] 00 mouth MD twice [place] daily. n [facility] insulin Yes Type 2 10U Inject [...] hyperglycem daily with [place] ia breakfast. n [facility] insulin Yes Type 2 5U Inject Univer [...] mouth MD tablet twice [place] daily. n [facility] sacubitriL- Yes Stress 1{tbl} Take 1 Univers valsartan 2-07 induced tablet by it y of (ENTRESTO) 00:00: cardiomyopa mouth [place] 24 mg-26 mg 00 thy every 12 MD tab per (twelve) Anders[place] tablet hours. n [facility] famotidine Yes Papillary 20mg Take 1 Univers (PEPCID) 20 2-07 thyroid tablet (20 ity of mg tablet 00:00: carcinoma mg) by [place] mouth MD twice [place] daily. n [facility] insulin Yes Type 2 10U Inject [...] hyperglycem daily with [place] ia breakfast. n [facility] insulin Yes Type 2 5U Inject Univer [...] Cancer needed for Center anxiety. LORazepam 2022-0 2023- No Claustropho .5mg Take 1 Univers (Ativan) 03-14 [place] tablet ity of 0.5 mg 00:00: 00:00 (0.5 mg) [place] tablet 00 :00 by mouth 2 (two) Anderso times a n day as Cancer needed for Center anxiety. LORazepam 2022-0 2023- No Claustropho .5mg Take 1 Univers (Ativan) 03-14 [place] tablet ity of 0.5 mg 00:00: 00:00 (0.5 mg) [place] tablet 00 :00 by mouth 2 (two) Anderso times a n day as Cancer needed for Center anxiety. LORazepam 2022-0 202- No Claustropho .5mg Take 1 Univers (Ativan) 03-14 [place] tablet ity of 0.5 mg 00:00: 00:00 (0.5 mg) [place] tablet 00 :00 by mouth 2 (two) Anderso times a n day as Cancer needed for Center anxiety. LORazepam 3-0 2023- No Claustropho .5mg Take 1 Univers (Ativan) 03-13 [place] tablet ity of 0.5 mg 00:00: 05:59 (0.5 mg) [place] tablet 00 :00 by mouth MD once for 1 Anderso dose. n [facility] LORazepam 2022-0 2023- No Claustropho .5mg Take 1 Univers (Ativan) 03-13 [place] tablet ity of 0.5 mg 00:00: 05:59 (0.5 mg) [place] tablet 00 :00 by mouth MD once for 1 Anders[place] dose. n [facility] LORazepam 2022-0 2023- No Claustropho .5mg Take 1 Univers (Ativan) 03-13 [place] tablet ity of 0.5 mg 00:00: 05:59 (0.5 mg) [place] tablet 00 :00 by mouth MD once for 1 Anderso dose. [facility] LORazepam 2022-2022- No Claustropho .5mg Take 1 Univers (Ativan) 03-13 [place] tablet ity of 0.5 mg 00:00: 05:59 (0.5 mg) [place] tablet 00 :00 by mouth MD once for 1 Anderso dose. [facility] LORazepam 2022- No Claustropho .5mg Take 1 Univers (Ativan) 03-13 [place] tablet ity of 0.5 mg 00:00: 05:59 (0.5 mg) [place] tablet 00 :00 by mouth MD once for 1 Anderso dose. [facility] LORazepam 2022- No Claustropho .5mg Take 1 Univers (Ativan) 03-13 [place] tablet ity of 0.5 mg 00:00: 05:59 (0.5 mg) [place] tablet 00 :00 by mouth MD once for 1 Anderso dose. [facility] LORazepam 2022- No Claustropho .5mg Take 1 Univers (Ativan) 03-13 [place] tablet ity of 0.5 mg 00:00: 05:59 (0.5 mg) [place] tablet 00 :00 by mouth MD once for 1 Anderso dose. [facility] LORazepam 2022- No Claustropho .5mg Take 1 Univers (Ativan) 03-13 [place] tablet ity of 0.5 mg 00:00: 05:59 (0.5 mg) [place] tablet 00 :00 by mouth MD once for 1 Anderso dose. [facility] LORazepam 2022- No Claustropho .5mg Take 1 Univers (Ativan) 03-13 [place] tablet ity of 0.5 mg 00:00: 05:59 (0.5 mg) [place] tablet 00 :00 by mouth MD once for 1 Anderso dose. [facility] LORazepam 2022- No Claustropho .5mg Take 1 Univers (Ativan) 03-13 [place] tablet ity of 0.5 mg 00:00: 05:59 (0.5 mg) [place] tablet 00 :00 by mouth MD once for 1 Anderso dose. n [facility] LORazepam 2022- No Claustropho .5mg Take 1 Univers (Ativan) 03-13 [place] tablet ity of 0.5 mg 00:00: 05:59 (0.5 mg) [place] tablet 00 :00 by mouth MD once for 1 Anderso dose. n [facility] LORazepam 2022- No Claustropho .5mg Take 1 Univers (Ativan) 03-13 [place] tablet ity of 0.5 mg 00:00: 05:59 (0.5 mg) [place] tablet 00 :00 by mouth MD once for 1 Anderso dose. n [facility] LORazepam 2022- No Claustropho .5mg Take 1 Univers (Ativan) 03-13 [place] tablet ity of 0.5 mg 00:00: 00:00 (0.5 mg) [place] tablet 00 :00 by mouth MD once for 1 Anderso dose. Take n prior to [facility] LORazepam 2022- No Claustropho .5mg Take 1 Univers (Ativan) 03-13 [place] tablet ity of 0.5 mg 00:00: 00:00 (0.5 mg) [place] tablet 00 :00 by mouth MD once for 1 Anderso dose. Take n prior to [facility] Center LORazepam 2022- No Claustropho .5mg Take 1 Univers (Ativan) 03-13 [place] tablet ity of 0.5 mg 00:00: 00:00 (0.5 mg) [place] tablet 00 :00 by mouth MD once for 1 Anderso dose. Take n prior to Cancer [facility] Center LORazepam 2022- No Claustropho .5mg Take 1 Univers (Ativan) 03-13 [place] tablet ity of 0.5 mg 00:00: 00:00 (0.5 mg) [place] tablet 00 :00 by mouth MD once for 1 Anderso dose. Take n prior to Cancer [facility] Center LORazepam 2022- No Claustropho .5mg Take 1 Univers (Ativan) 03-13 [place] tablet ity of 0.5 mg 00:00: 00:00 (0.5 mg) [place] tablet 00 :00 by mouth MD once for 1 Anderso dose. Take n prior to [facility] LORazepam 2022- No Claustropho .5mg Take 1 Univers (Ativan) 03-13 [place] tablet ity of 0.5 mg 00:00: 00:00 (0.5 mg) [place] tablet 00 :00 by mouth MD once for 1 Anderso dose. Take n prior to [facility] Center LORazepam 2022- No Claustropho .5mg Take 1 Univers (Ativan) 03-13 [place] tablet ity of 0.5 mg 00:00: 00:00 (0.5 mg) [place] tablet 00 :00 by mouth MD once for 1 Anderso dose. Take n prior to [facility] LORazepam 2022- No Claustropho .5mg Take 1 Univers (Ativan) 03-13 [place] tablet ity of 0.5 mg 00:00: 00:00 (0.5 mg) [place] tablet 00 :00 by mouth MD once for 1 Anderso dose. Take n prior to [facility] LORazepam 2022- No Claustropho .5mg Take 1 Univers (Ativan) 03-13 [place] tablet ity of 0.5 mg 00:00: 00:00 (0.5 mg) [place] tablet 00 :00 by mouth MD once for 1 Anderso dose. Take n prior to [facility] LORazepam 2022- No Claustropho .5mg Take 1 Univers (Ativan) 03-13 [place] tablet ity of 0.5 mg 00:00: 00:00 (0.5 mg) [place] tablet 00 :00 by mouth MD once for 1 Anderso dose. Take n prior to [facility] LORazepam 2022- No Claustropho .5mg Take 1 Univers (Ativan) 03-13 [place] tablet ity of 0.5 mg 00:00: 00:00 (0.5 mg) [place] tablet 00 :00 by mouth MD once for 1 Anderso dose. Take n [facility] to [facility] LORazepam 2022- Claustropho .5mg Take 1 Univers (Ativan) 03-13 [place] tablet ity of 0.5 mg 00:00: 00:00 (0.5 mg) [place] tablet 00 :00 by mouth MD once for 1 Anderso dose. Take n [facility] to [facility] sertraline Yes TAKE ONE Uni vers (ZOLOFT) 25 1-17 (1) ity of mg tablet 00:00: TABLET(S) [place] 00 BY MOUTH MD DAILY. [facility] sertraline Yes TAKE ONE Uni vers (ZOLOFT) 25 1-17 (1) ity of mg tablet 00:00: TABLET(S) [place] 00 BY MOUTH MD DAILY. [facility] sertraline Yes TAKE ONE Uni vers (ZOLOFT) 25 1-17 (1) ity of mg tablet 00:00: TABLET(S) [place] 00 BY MOUTH MD DAILY. [facility] sertraline Yes TAKE ONE Uni vers (ZOLOFT) 25 1-17 (1) ity of mg tablet 00:00: TABLET(S) [place] 00 BY MOUTH MD DAILY. [facility] sertraline Yes TAKE ONE Uni vers (ZOLOFT) 25 1-17 (1) ity of mg tablet 00:00: TABLET(S) [place] 00 BY MOUTH MD DAILY. [facility] sertraline Yes TAKE ONE Uni vers (ZOLOFT) 25 1-17 (1) ity of mg tablet 00:00: TABLET(S) [place] 00 BY MOUTH MD DAILY. [facility] sertraline Yes TAKE ONE Uni vers (ZOLOFT) 25 1-17 (1) ity of mg tablet 00:00: TABLET(S) [place] 00 BY MOUTH MD DAILY. [facility] sertraline Yes TAKE ONE Uni vers (ZOLOFT) 25 1-17 (1) ity of mg tablet 00:00: TABLET(S) [place] 00 BY MOUTH MD DAILY. [facility] sertraline Yes TAKE ONE Uni vers (ZOLOFT) 25 1-17 (1) ity of mg tablet 00:00: TABLET(S) [place] 00 BY MOUTH MD DAILY. [facility] sertraline Yes TAKE ONE Uni vers (ZOLOFT) 25 1-17 (1) ity of mg tablet 00:00: TABLET(S) [place] 00 BY MOUTH MD DAILY. [facility] sertraline Yes TAKE ONE Uni vers (ZOLOFT) 25 1-17 (1) ity of mg tablet 00:00: TABLET(S) [place] 00 BY MOUTH MD DAILY. [facility] sertraline Yes TAKE ONE Uni vers (ZOLOFT) 25 1-17 (1) ity of mg tablet 00:00: TABLET(S) [place] 00 BY MOUTH MD DAILY. [facility] metFORMIN 2022- No TAKE 2 Unive rs (GLUCOPHAGE 03-12 02-07 TABLETS ity of -XR) 500 mg 00:00: 00:00 [place] 00 :00 DAILY WITH MD tablet MEALS. [facility] metFORMIN 2022- No TAKE 2 Unive rs (GLUCOPHAGE 03-12 02-07 TABLETS ity of -XR) 500 mg 00:00: 00:00 [place] 24 [place] 00 :00 DAILY WITH MD tablet MEALS. [facility] metFORMIN 2022- No TAKE 2 Unive rs (GLUCOPHAGE 03-12 02-07 TABLETS ity of -XR) 500 mg 00:00[place] :00 DAILY WITH MD tablet MEALS. [facility] metFORMIN 2022- No TAKE 2 Unive rs (GLUCOPHAGE 03-12 02-07 TABLETS ity of -XR) 500 mg 00:00: 00[place] :00 DAILY WITH MD tablet MEALS. [facility] metFORMIN 2022- No TAKE 2 Unive rs (GLUCOPHAGE 03-12 02-07 TABLETS ity of -XR) 500 mg 00:00: 00[place] :00 DAILY WITH MD tablet MEALS. [facility] metFORMIN 2022- No TAKE 2 Unive rs (GLUCOPHAGE 117 02-07 TABLETS ity of -XR) 500 mg 00:00: 00:[place] :00 DAILY WITH MD tablet MEALS. [facility] metFORMIN 2022- No TAKE 2 Unive rs (GLUCOPHAGE 1-17 02-07 TABLETS ity of -XR) 500 mg 00:00: 00:[place] :00 DAILY WITH MD tablet MEALS. [facility] metFORMIN 2022- No TAKE 2 Unive rs (GLUCOPHAGE 117 02-07 TABLETS ity of -XR) 500 mg 00:00: 00:[place] :00 DAILY WITH MD tablet MEALS. [facility] metFORMIN 2022- No TAKE 2 Unive rs (GLUCOPHAGE 1-17 02-07 TABLETS ity of -XR) 500 mg 00:00: 00:[place] :00 DAILY WITH MD tablet MEALS. [facility] metFORMIN 2022- No TAKE 2 Unive rs (GLUCOPHAGE 117 02-07 TABLETS ity of -XR) 500 mg 00:00: 00:[place] :00 DAILY WITH MD tablet MEALS. [facility] metFORMIN 2022- No TAKE 2 Unive rs (GLUCOPHAGE 117 02-07 TABLETS ity of -XR) 500 mg 00:00: 00:[place] :00 DAILY WITH MD tablet MEALS. [facility] metFORMIN 2022- No TAKE 2 Unive rs (GLUCOPHAGE 117 02-07 TABLETS ity of -XR) 500 mg 00:00: 00:[place] :00 DAILY WITH MD tablet MEALS. [facility] TAKE 2 2022-0 No 500 TABLETS 1-16 [...] 2022- No TAKE ONE U nivers (VIBRAMYCIN -11 04- (1) ity of ) 100 MG 00:00: 00:00 [place] :00 BY MOUTH MD EVERY [place] TWELVE n HOURS. [facility] insulin 2022- No 5U Inject 5 Unive rs lispro 03-11- Units ity of (HumaLOG 00:00: 00:00 [place] as KWIKPEN) 00 :00 skin 3 MD 100 unit/mL (three) Bladimir so insulin pen times a n day[facility] doxycycline 2022- No TAKE ONE U nivers (VIBRAMYCIN 03-11- (1) ity of ) 100 MG 00:00: 00:00 [place] 00 :00 BY MOUTH MD EVERY [place] TWELVE n HOURS. [facility] [place] insulin 2022- No 5U Inject 5 Unive [...] EVERY [place]o TWELVE n HOURS. [facility] [place] insulin 2022- No 5U Inject 5 Unive rs lispro 03-11- Units ity of (HumaLOG 00:00: 00:00 under the [place] as KWIKPEN) 00 :00 skin 3 MD 100 unit/mL (three) Bladimir so insulin pen times a n day. [facility] doxycycline 2022- No TAKE ONE U nivers (VIBRAMYCIN 16 - (1) ity of ) 100 MG 00:00: 00:00 [place] 00 :00 BY MOUTH MD EVERY [place]o TWELVE n HOURS. [facility] [place] insulin 2022- No 5U Inject 5 Unive [...] 5U Inject 5 Unive rs lispro -16 - Units ity of (HumaLOG 00:00: 00:00 [place] [facility] [place] as KWIKPEN) 00 :00 skin 3 MD 100 unit/mL (three) Bladimir so insulin pen times a n day. [facility] doxycycline 2022- No TAKE ONE U nivers (VIBRAMYCIN -11 04- (1) ity of ) 100 MG 00:00: [...] MOUTH MD EVERY [place]o TWELVE n HOURS. [facility] insulin 2022- No 5U Inject 5 Unive rs lispro 16 - Units ity of (HumaLOG 00:00: 00:00 under the [place] as KWIKPEN) 00 :00 skin 3 MD 100 unit/mL (three) Bladimir so insulin pen times a n day. [facility] [place] doxycycline 2022- No TAKE ONE U nivers (VIBRAMYCIN 03-11- (1) ity of ) 100 MG 00:00: 00:00 [place]) [place] 00 :00 BY MOUTH MD EVERY [place] TWELVE n HOURS. [facility] insulin 2022- No 5U Inject 5 Unive rs lispro -16 -07 Units ity of (HumaLOG 00:00: 00:00 [place] as KWIKPEN) 00 :00 skin 3 MD 100 unit/mL (three) Bladimir so insulin pen times a n day. [facility] doxycycline 2022- No TAKE ONE U nivers (VIBRAMYCIN 16 02-07 (1) ity of ) 100 MG 00:00: 00:00 [place]) [place] 00 :00 BY MOUTH MD EVERY [place] TWELVE n HOURS. [facility] insulin 2022- No 5U Inject 5 Unive rs lispro 03-11 02-07 Units ity of (HumaLOG 00:00: 00:00 under [place] as KWIKPEN) 00 :00 skin 3 MD 100 unit/mL (three) Bladimir so insulin pen times a n day. [facility] TAKE ONE 2021-02 No 25 (1) 2-30 [...] MD 200 mcg DAILY. [place] tablet n [facility] levothyroxi 2021-02 Yes TAKE ONE Un shireen ne 1-29 (1) ity of (SYNTHROID, 00:00: TABLE[place](S) [place] LEVOTHROID) 00 BY MOUTH MD 200 mcg DAILY. [place] tablet n [facility] levothyroxi 2021-02 Yes TAKE ONE Un shireen ne 1-29 (1) ity of (SYNTHROID, 00:00: TABLET(S) [place] LEVOTHROID) 00 BY MOUTH MD 200 mcg DAILY. [place] tablet n [facility] levothyroxi 2021-02 Yes TAKE ONE Un shireen ne 1-29 (1) ity of (SYNTHROID, 00:00: TABLET(S) [place] LEVOTHROID) 00 BY MOUTH MD 200 mcg DAILY. [place] tablet n [facility] levothyroxi 2021-02 Yes TAKE ONE Un shireen ne 1-29 (1) ity of (SYNTHROID, 00:00: TABLET(S) [place] LEVOTHROID) 00 BY MOUTH MD 200 mcg DAILY. [place] tablet [facility] levothyroxi 2021-02 Yes TAKE ONE Un shireen ne 1-29 (1) ity of (SYNTHROID, 00:00: TABLET(S) [place] LEVOTHROID) 00 BY MOUTH MD 200 mcg DAILY. [place] tablet [facility] levothyroxi 2021-02 Yes TAKE ONE Un shireen ne 1-29 (1) ity of (SYNTHROID, 00:00: TABLET(S) [place] LEVOTHROID) 00 BY MOUTH MD 200 mcg DAILY. [place] tablet [facility] levothyroxi 2021-02 Yes TAKE ONE Un shireen ne 1-29 (1) ity of (SYNTHROID, 00:00: TABLET(S) [place] LEVOTHROID) 00 BY MOUTH MD 200 mcg DAILY. [place] tablet [facility] levothyroxi 2021-02 Yes TAKE ONE Un shireen ne 1-29 (1) ity of (SYNTHROID, 00:00: TABLET(S) [place] LEVOTHROID) 00 BY MOUTH MD 200 mcg DAILY. [place] tablet [facility] levothyroxi 2021-02 Yes TAKE ONE Un shireen ne 1-29 (1) ity of (SYNTHROID, 00:00: TABLET(S) [place] LEVOTHROID) 00 BY MOUTH MD 200 mcg DAILY. [place] tablet [facility] levothyroxi 2021-02 Yes TAKE ONE Un shireen ne 1-29 (1) ity of (SYNTHROID, 00:00: TABLET(S) [place] LEVOTHROID) 00 BY MOUTH MD 200 mcg DAILY. [place] tablet [facility] levothyroxi 2021-02 Yes TAKE ONE Un shireen ne 1-29 (1) ity of (SYNTHROID, 00:00: TABLET(S) [place] LEVOTHROID) 00 BY MOUTH MD 200 mcg DAILY. [place] tablet [facility] INJECT 2021-02 No UNDER THE 03-24 SKIN BEFORE 00:00: MEALS 00 DIRECTED. MAX DAILY DOSE IS 50 UNITS PER DAY. insulin 2022- No 30U 30 Units Unive rs degludec 06-29 daily. ity of 100 unit/mL 00:00: 00:00 [place] (3 mL) 00 :00 MD insulin pen [facility] insulin 2021-0 3- No 30U 30 Units Unive rs degludec 06-29 daily. ity of 100 unit/mL 00:00: 00:00 [place] (3 mL) 00 :00 MD insulin pen [facility] insulin 2021-0 3- No 30U 30 Units Unive rs degludec 06-29 daily. ity of 100 unit/mL 00:00: 00:00 [place] (3 mL) 00 :00 MD insulin pen [facility] insulin 2021-0 3- No 30U 30 Units Unive rs degludec 06-29 daily. ity of 100 unit/mL 00:00: 00:00 [place] (3 mL) 00 :00 MD insulin pen [facility] insulin 2021-0 3- No 30U 30 Units Unive rs degludec 06-29 daily. ity of 100 unit/mL 00:00: 00:00 [place] (3 mL) 00 :00 MD insulin pen [facility] insulin 2021-0 3- No 30U 30 Units Unive rs degludec 06-29 daily. ity of 100 unit/mL 00:00: 00:00 [place] (3 mL) 00 :00 MD insulin pen [facility] insulin 2021-0 3- No 30U 30 Units Unive rs degludec 06-29 daily. ity of 100 unit/mL 00:00: 00:00 [place] (3 mL) 00 :00 MD insulin pen [facility] insulin 2021-0 3- No 30U 30 Units Unive rs degludec 06-29 daily. ity of 100 unit/mL 00:00: 00:00 [place] (3 mL) 00 :00 MD insulin pen [facility] insulin 2-0 3- No 30U 30 Units Unive rs degludec 06-29 daily. ity of 100 unit/mL 00:00: 00:00 [place] (3 mL) 00 :00 MD insulin pen [place]o n [facility] insulin 2022- No 30U 30 Units Unive rs degludec 06-29 daily. ity of 100 unit/mL 00:00: 00:00 [place] (3 mL) 00 :00 insulin pen [place]o n [facility] insulin 2022- No 30U 30 Units Unive rs degludec 06-29 daily. ity of 100 unit/mL 00:00: 00:00 [place] (3 mL) 00 :[facility] Units Unive rs degludec 06-29 daily. ity of 100 unit/mL 00:00: 00:00 [place] (3 mL) 00 :00 insulin pen [facility] Vital Signs Vital Name Observation Time Observation Value Comments Source Diastolic blood 2022-07-15 18:30:14 73 mm[Hg] Unive rsity of pressure [facility] Heart rate 2022-07-15 18:30:14 83 /min [facility] Body temperature 2022-07-15 18:30:14 36.89 Caty [facility] ersity [facility] Respiratory rate 2022-07-15 18:30:14 18 /min [facility] Body weight 2022-07-15 18:30:14 45.85 kg [facility] BMI 2022-07-15 18:30:14 19.98 kg/m2 [facility] Oxygen saturation in 2022-07-15 18:30:14 98 /min [facility] Arterial blood by Toby justice Pulse oximetry [facility] Systolic blood 2022-07-15 18:30:14 108 mm[Hg] Univer sity of pressure [facility] Systolic blood 2022-04-02 17:11:00 95 mm[Hg] Univer sity of pressure [facility] Diastolic blood 2022-04-02 17:11:00 63 mm[Hg] Unive rsity of pressure [facility] Heart rate 2022-04-02 17:11:00 109 /[facility] Body temperature 2022-04-02 17:11:[address] [facility] Respiratory rate 2022-04-02 17:11:00 17 /min [facility] Oxygen saturation in 2022-04-02 17:11:00 99 /min [facility] Arterial blood by [facility] Pulse oxim[facility] Body weight 2022-04-02 12:01:00 43.5 kg [facility]i [facility] BMI 2022-04-02 12:01:00 18.95 kg/m2 [facility] Body height 2022-03-30 00:51:00 151.5 cm [facility] BP Systolic 2022-03-11 [...] ECHOCARDIOGRAM 2D COMPLETE 2022-07-26 16:17:49 Megan Kapadia [facility] COMPLETE BLOOD COUNT W/ 2022-07-26 15:26:00 Megan Kapadia [facility] DIFFERENTIAL [facility] COMPREHENSIVE METABOLIC 2022-07-26 15:26:00 Megan Kapadia [facility] PANEL [facility] LIPID PANEL 2022-07-26 15:26:00 Megan Kapadia [facility] CARDIAC PANEL 2022-07-26 15:26:00 Megan Kapadia [facility] NT PRO BNP 2022-07-26 15:26:00 Megan Kapadia [facility] FREE THYROXINE 2022-07-26 15:26:00 Megan Kapadia [facility] Results CBC 2022-07-26 15:26:00 Megan Kapadia [facility] MANUAL DIFFERENTIAL 2022-07-26 15:26:00 Megan Kapadia [facility] GLUCOSE LEVEL 2022-07-26 15:26:00 Megan Kapadia [facility] BLOOD UREA NITROGEN 2022-07-26 15:26:00 Megan Kapadia [facility] ELECTROLYTE PANEL 2022-07-26 15:26:00 Megan Kapadia [facility] SERUM CREATININE 2022-07-26 15:26:00 Megan Kapadia [facility] .GLOMERULAR FILTRATION 2022-07-26 15:26:00 Megan Kapadia [facility] RATE [facility] CALCIUM LEVEL TOTAL 2022-07-26 15:26:00 Megan Kapadia [facility] ALBUMIN LEVEL 2022-07-26 15:26:00 Megan Kapadia [facility] ALKALINE PHOSPHATASE 2022-07-26 15:26:[address] [facility] ALANINE AMINOTRANSFERASE 2022-07-26 15:26:00 [facility] AMINOTRANSFERASE 2022-07-26 15:26:00 Megan Kapadia [facility] TOTAL PROTEIN 2022-07-26 15:26:00 Megan Kapadia [facility] FRACTIONATED BILIRUBIN 2022-07-26 15:26:00 Megan Kapadia [facility] EKG, 12-LEAD (SCHEDULED) 2022-07-15 00:00:00 [facility]ISSUE NECK W 2022-04-12 20:09:00 Seth Johnson [facility] CONTRAST [facility] CT CHEST W CONTRAST 2022-04-12 20:09:00 Johnson [facility] POC GLUCOSE SCREEN 2022-04-02 14:17:00 Renard Carpenter [facility] Satya Lambert [facility] PROTHROMBIN TIME 2022-04-02 13:05:00 Kiara Shah [facility] HEPATIC FUNCTION PANEL 2022-04-02 13:05:00 Kiara Shah [facility] COMPLETE BLOOD COUNT W/ 2022-04-02 13:05:00 Kiara Shah [facility] DIFFERENTIAL [facility] MAGNESIUM LEVEL 2022-04-02 13:05:00 Kiara Shah [facility] BASIC METABOLIC PANEL, 2022-04-02 13:05:00 Kiara Shah [facility] CALCIUM IONIZED [facility] PHOSPHORUS LEVEL 2022-04-02 13:05:00 [facility] 2022-04-02 13:05:00 Kiara Shah [facility] ALKALINE PHOSPHATASE 2022-04-02 13:05:00 Kiara Shah [facility] ALANINE AMINOTRANSFERASE 2022-04-02 13:05:00 [facility] ASPARTATE AMINOTRANSFERASE 2022-04-02 13:05:00 [facility] TOTAL PROTEIN 2022-04-02 13:05:00 [facility] FRACTIONATED BILIRUBIN 2022-04-02 13:05:00 Kiara Shah [facility] GLUCOSE LEVEL 2022-04-02 13:05:00 Kiara Shah [facility] BLOOD UREA NITROGEN 2022-04-02 13:05:[address] [facility] ELECTROLYTE PANEL 2022-04-02 13:05:00 Kiara Shah [facility] SERUM CREATININE 2022-04-02 13:05:00 Pablo [facility] .GLOMERULAR FILTRATION 2022-04-02 13:05:00 Kiara Shah [facility] Results CBC 2022-04-02 13:05:00 Kiara Shah [facility] MANUAL DIFFERENTIAL 2022-04-02 13:05:[address] [facility] CALCIUM IONIZED, VENOUS 2022-04-02 13:01:00 Kiara Shah [facility] POC GLUCOSE SCREEN 2022-04-02 04:20:00 Kiara Shah [facility] POC GLUCOSE SCREEN 2022-04-01 23:38:00 Pablo[facility] ADD ON 2022-04-01 22:14:00 Ry Noe U [facility] POC GLUCOSE SCREEN 2022-04-01 18:18:00 Pablo [facility] Center POC GLUCOSE SCREEN 2022-04-01 16:39:00 Pablo [facility] Center POC GLUCOSE SCREEN 2022-04-01 15:12:00 Pablo [facility] Center PROTHROMBIN TIME 2022-04-01 14:09:00 [facility] 2022-04-01 14:09:00 Kiara Shah [facility] COMPLETE BLOOD COUNT W/ 2022-04-01 14:09:00 Kiara Shah [facility] MAGNESIUM LEVEL 2022-04-01 14:09:00 [facility] BASIC METABOLIC PANEL, 2022-04-01 14:09:00 Kiara Shah [facility] CALCIUM IONIZED [facility] PHOSPHORUS LEVEL 2022-04-01 14:09:[address] [facility] TYPE AND SCREEN 2022-04-01 14:09:00 [facility] ALBUMIN LEVEL 2022-04-01 14:09:00 [facility] ALKALINE PHOSPHATASE 2022-04-01 14:09:00 Kiara Shah [facility] ALANINE AMINOTRANSFERASE 2022-04-01 14:09:00 [facility] ASPARTATE AMINOTRANSFERASE 2022-04-01 14:09:00 [facility] TOTAL PROTEIN 2022-04-01 14:09:00 Kiara Shah [facility] [place] FRACTIONATED BILIRUBIN 2022-04-01 14:09:00 Kiara Shah [facility] GLUCOSE LEVEL 2022-04-01 14:09:00 Kiara Shah [facility] BLOOD UREA NITROGEN 2022-04-01 14:09:[address] [facility] ELECTROLYTE PANEL 2022-04-01 14:09:00 Kiara Shah [facility] SERUM CREATININE 2022-04-01 14:09:00 [facility] .GLOMERULAR FILTRATION 2022-04-01 14:09:00 Kiara Shah [facility] RATE [facility] Results CBC 2022-04-01 14:09:00 Kiara Shah [facility] MANUAL DIFFERENTIAL 2022-04-01 14:09:[address] [facility] CALCIUM IONIZED, VENOUS 2022-04-01 14:09:00 Kiara Shah [facility] ABORH 2022-04-01 14:09:00 [facility] ANTIBODY SCREEN 2022-04-01 14:09:00 Kiara Shah [facility] CLOT EXPIRATION DATE 2022-04-01 14:09:00 Kiara Shah [facility] TMP INTERPRETATION 2022-04-01 14:09:00 Kiara Shah [facility] ANTIBODY SCREEN NEGATIVE [facility] HEMOGLOBIN A1C 2022-04-01 14:09:00 Kiara Shah [facility] OSCILLATORY PEP 2022-04-01 14:00:14 Kiara Sahh [facility] POC GLUCOSE SCREEN 2022-04-01 03:10:00 Kiara Shah [facility] [place] OSCILLATORY PEP 2022-04-01 02:00:15 [facility] POC GLUCOSE SCREEN 2022-03-31 23:54:00 Pablo [facility] OSCILL[facility]ORY PEP 2022-03-31 20:01:02 Kiara Shah [facility] POC GLUCOSE SCREEN 2022-03-31 19:18:00 Pablo [facility] [place] OSCILLATORY PEP 2022-03-31 15:26:44 Pablo [facility] POC GLUCOSE SCREEN 2022-03-31 14:53:00 Kiara Shah [facility] PROTHROMBIN TIME 2022-03-31 12:16:00 Kiara Shah [facility] HEPATIC FUNCTION PANEL 2022-03-31 12:16:00 Kiara Shah [facility] COMPLETE BLOOD COUNT W/ 2022-03-31 12:16:00 Kiara Shah [facility] DIFFERENTIAL [facility] MAGNESIUM LEVEL 2022-03-31 12:16:00 Kiara Shah [facility] BASIC METABOLIC PANEL, 2022-03-31 12:16:00 Kiara Shah [facility] CALCIUM IONIZED [facility] PHOSPHORUS LEVEL 2022-03-31 12:16:00 [facility] ALBUMIN LEVEL 2022-03-31 12:16:00 Kiara Shah [facility] ALKALINE PHOSPHATASE 2022-03-31 12:16:00 Kiara Shah [facility] ALANINE AMINOTRANSFERASE 2022-03-31 12:16:00 Kiara [facility] [place] ASPARTATE AMINOTRANSFERASE 2022-03-31 12:16:00 Kiara Shah [facility] TOTAL PROTEIN 2022-03-31 12:16:00 Kiara Shah [facility] FRACTIONATED BILIRUBIN 2022-03-31 12:16:00 Kiara Shah [facility] GLUCOSE LEVEL 2022-03-31 12:16:00 Kiara Shah [facility] BLOOD UREA NITROGEN 2022-03-31 12:16:[address] [facility] ELECTROLYTE PANEL 2022-03-31 12:16:00 Kiara Shahit y [facility] SERUM CREATININE 2022-03-31 12:16:00 [facility] .GLOMERULAR FILTRATION 2022-03-31 12:16:00 Kiara Shah [facility] Results CBC 2022-03-31 12:16:00 Kiara Shah [facility] MANUAL DIFFERENTIAL 2022-03-31 12:16:[address] [facility] CALCIUM IONIZED, VENOUS 2022-03-31 12:16:00 Kiara Shah [facility] POC GLUCOSE SCREEN 2022-03-31 04:42:00 Kiara Shah Universi ty [facility] Center POC GLUCOSE SCREEN 2022-03-31 02:03:00 Pablo Kiara Universi ty [facility] er Center POC GLUCOSE SCREEN 2022-03-31 00:00:00 [facility] PICC/NON-TUNNELED CVAD 2022-03-30 19:37:03 Kiara Shah [facility] POC GLUCOSE SCREEN 2022-03-30 19:33:00 Kiara Shah [facility] POC CRITICAL 2022-03-30 19:30:00 [facility]OC GLUCOSE SCREEN 2022-03-30 19:30:00 Kiara Shah [facility] POC GLUCOSE SCREEN 2022-03-30 15:59:00 Kiara Shah [facility] OSCILLATORY PEP 2022-03-30 14:00:06 [facility] BASIC METABOLIC PANEL, 2022-03-30 13:36:00 Kiara Shah [facility] CALCIUM IONIZED [facility] PHOSPHORUS LEVEL 2022-03-30 13:36:00 Pablo [facility] MAGNESIUM LEVEL 2022-03-30 13:36:00 [facility] PROTHROMBIN TIME 2022-03-30 13:36:00 Pablo [facility] APTT 2022-03-30 13:36:00 Pablo [facility] COMPLETE BLOOD COUNT W/ 2022-03-30 13:36:00 Kiara Shah [facility] DIFFERENTIAL [facility] GLUCOSE LEVEL 2022-03-30 13:36:00 [facility] BLOOD UREA NITROGEN 2022-03-30 13:36:00 Kiara Shah ity [facility] ELECTROLYTE PANEL 2022-03-30 13:36:00 Kiara Shah y [facility] SERUM CREATININE 2022-03-30 13:36:00 Pablo [facility] .GLOMERULAR FILTRATION 2022-03-30 13:36:00 Kiara Shah [facility] RATE [facility] CALCIUM IONIZED, VENOUS 2022-03-30 13:36:00 Kiara Shah [facility] Results CBC 2022-03-30 13:36:00 Kiara Shah [facility] MANUAL DIFFERENTIAL 2022-03-30 13:36:[address] [facility] ALBUMIN LEVEL 2022-03-30 13:36:00 [facility] ALKALINE PHOSPHATASE 2022-03-30 13:36:00 Kiara Shah [facility] ALANINE AMINOTRANSFERASE 2022-03-30 13:36:00 Ki[facility] ASPARTATE AMINOTRANSFERASE 2022-03-30 13:36:00 [facility] TOTAL PROTEIN 2022-03-30 13:36:00 [facility] FRACTIONATED BILIRUBIN 2022-03-30 13:36:00 Kiara Shah [facility] POC GLUCOSE SCREEN 2022-03-30 11:52:00 Kiara Shah [facility] POC GLUCOSE SCREEN 2022-03-30 04:16:00 Kiara Shah [facility] OSCILLATORY PEP 2022-03-30 02:00:12 [facility] BASIC METABOLIC PANEL, 2022-03-29 23:38:00 Kiara Shah [facility] CALCIUM IONIZED [facility] PHOSPHORUS LEVEL 2022-03-29 23:38:00 Pablo [facility] MAGNESIUM LEVEL 2022-03-29 23:38:00 Pablo [facility] GLUCOSE LEVEL 2022-03-29 23:38:00 Satya Gonzalez [facility] BLOOD UREA NITROGEN 2022-03-29 23:38:00 Satya Gonzalez [facility] ELECTROLYTE PANEL 2022-03-29 23:38:[address] [facility] [facility] SERUM CREATININE 2022-03-29 23:38:00 Satya Gonzalez [facility] .GLOMERULAR FILTRATION 2022-03-29 23:38:00 Satya Gonzalez [facility] CALCIUM IONIZED, VENOUS 2022-03-29 23:38:00 Satya Gonzalez [facility] POC GLUCOSE SCREEN 2022-03-29 23:21:00 Pablo [facility] OSCILLATORY PEP 2022-03-29 22:00:05 Pablo [facility] OSCILLATORY PEP 2022-03-29 18:00:15 Pablo [facility] POC GLUCOSE SCREEN 2022-03-29 17:15:00 Pablo [facility] TYPE AND SCREEN 2022-03-29 16:16:00 Pablo [facility] ARTERIAL BLOOD GAS 2022-03-29 16:16:00 Pablo [facility] BASIC METABOLIC PANEL, 2022-03-29 16:16:00 Kiara Shah [facility] CALCIUM IONIZED [facility] LACTIC ACID, VENOUS 2022-03-29 16:16:[address] [facility] PHOSPHORUS LEVEL 2022-03-29 16:16:00 Pablo [facility] MAGNESIUM LEVEL 2022-03-29 16:16:00 [facility] 2022-03-29 16:16[facility] 2022-03-29 16:16:00 Jasvir [facility] GLUCOSE LEVEL 2022-03-29 16:16:00 Satya Gonzalez [facility] BLOOD UREA NITROGEN 2022-03-29 16:16:00 Satya Gonzalez [facility] ELECTROLYTE PANEL 2022-03-29 16:16:[address] [facility] SERUM CREATININE 2022-03-29 16:16:00 Satya Gonzalez [facility] .GLOMERULAR FILTRATION 2022-03-29 16:16:00 Satya Gonzalez [facility] CALCIUM IONIZED, VENOUS 2022-03-29 16:16:00 Satya Gonzalez [facility] TMP INTERPRETATION 2022-03-29 16:16:00 [facility]GATIVE [facility] CLOT EXPIRATION DATE 2022-03-29 16:16:00 Ellie Tay [facility] POC GLUCOSE SCREEN 2022-03-29 14:07:00 Pablo Kiara [facility] OSCILLATORY PEP 2022-03-29 14:00:07 Pablo [facility] POC GLUCOSE SCREEN 2022-03-29 11:16:00 Pablo Kiara [facility] XR CHEST 1 VW PORTABLE 2022-03-29 07:42:48 Kiara Shah [facility] ARTERIAL BLOOD GAS 2022-03-29 06:44:00 Pablo Kiara [facility] BASIC METABOLIC PANEL, 2022-03-29 06:44:00 Kiara Shah [facility] CALCIUM IONIZED [facility] LACTIC ACID, VENOUS 2022-03-29 06:44:[address] [facility] PHOSPHORUS LEVEL 2022-03-29 06:44:00 Pablo [facility] MAGNESIUM LEVEL 2022-03-29 06:44:00 Pablo [facility] PROTHROMBIN TIME 2022-03-29 06:44:00 Pablo [facility] APTT 2022-03-29 06:44:00 Pablo [facility] HEPATIC FUNCTION PANEL 2022-03-29 06:44:00 [facility]PLE[facility] W/ 2022-03-29 06:44:00 Kiara Shah [facility] DIFFERENTIAL [facility] GLUCOSE LEVEL 2022-03-29 06:44:00 Satya Gonzalez [facility] BLOOD UREA NITROGEN 2022-03-29 06:44:00 Satya Gonzalez [facility] ELECTROLYTE PANEL 2022-03-29 06:44:[address] [facility] SERUM CREATININE 2022-03-29 06:44:00 Satya Gonzalez [facility] .GLOMERULAR FILTRATION 2022-03-29 06:44:00 Satya Gonzalez [facility] CALCIUM IONIZED, VENOUS 2022-03-29 06:44:00 Satya Gonzalez [facility] ALBUMIN LEVEL 2022-03-29 06:44:00 Satya Gonzalez [facility] ALKALINE PHOSPHATASE 2022-03-29 06:44:[address] [facility] ALANINE AMINOTRANSFERASE 2022-03-29 06:44:00 Satya Gonzalez [facility] ASPARTATE AMINOTRANSFERASE 2022-03-29 06:44:00 Satya Gonzalez [facility] TOTAL PROTEIN 2022-03-29 06:44:00 Satya Gonzalez [facility] FRACTIONATED BILIRUBIN 2022-03-29 06:44:00 Satya Gonzalez [facility] Results CBC 2022-03-29 06:44:00 Florencia DohertyVeronica [facility] MANUAL DIFFERENTIAL 2022-03-29 06:44:00 Darion Doherty [facility] POC GLUCOSE SCREEN 2022-03-29 05:26:00 Pablo [facility] POC GLUCOSE SCREEN 2022-03-29 02:13:00 Pablo [facility] OSCILLATORY PEP 2022-03-29 02:00:13 Pablo [facility] ARTERIAL BLOOD GAS 2022-03-28 23:44:00 Pablo [facility] BASIC METABOLIC PANEL, 2022-03-28 23:44:00 Kiara Shah [facility] CALCIUM IONIZED [facility] LACTIC ACID, VENOUS 2022-03-28 23:44:[address] [facility] PHOSPHORUS LEVEL 2022-03-28 23:44:00 Pablo [facility] MAGNESIUM LEVEL 2022-03-28 23:44:00 Pablo [facility] GLUCOSE LEVEL 2022-03-28 23:44:00 Satya Gonzalez [facility] BLOOD UREA NITROGEN 2022-03-28 23:44:00 Satya Gonzalez [facility] ELECTROLYTE PANEL 2022-03-28 23:44:[address] [facility] SERUM CREATININE 2022-03-28 23:44:00 Satya Gonzalez [facility] .GLOMERULAR FILTRATION 2022-03-28 23:44:00 Satya Gonzalez [facility] CALCIUM IONIZED, VENOUS 2022-03-28 23:44:00 Satya Gonzalez [facility] POC GLUCOSE SCREEN 2022-03-28 22:56:00 Pablo Kiara [facility] OSCILLATORY PEP 2022-03-28 22:00:05 Pablo [facility] OSCILLATORY PEP 2022-03-28 20:07:57 Pablo [facility] VANCOMYCIN LEVEL TROUGH 2022-03-28 17:50:00 Nathaniel Montes [facility] CALCIUM IONIZED, VENOUS 2022-03-28 17:50:00 Kiara Shah [facility] ARTERIAL BLOOD GAS 2022-03-28 17:50:00 Pablo [facility] POC GLUCOSE SCREEN 2022-03-28 17:43:00 Pablo [facility] BASIC METABOLIC PANEL, 2022-03-28 16:22:00 Kiara Shah [facility] CALCIUM IONIZED [facility] PHOSPHORUS LEVEL 2022-03-28 16:22:00 Pablo [facility] MAGNESIUM LEVEL 2022-03-28 16:22:00 Pablo [facility] GLUCOSE LEVEL 2022-03-28 16:22:00 Satya Gonzalez [facility] BLOOD UREA NITROGEN 2022-03-28 16:22:00 Satya Gonzalez [facility] ELECTROLYTE PANEL 2022-03-28 16:22:00 [facility] CREATININE 2022-03-28 16:22:00 Satya Gonzalez [facility] .GLOMERULAR FILTRATION 2022-03-28 16:22:00 Satya Gonzalez [facility] RATE [facility] ECHOCARDIOGRAM 2D LIMITED 2022-03-28 14:20:21 Megan Kapadia [facility] - FOLLOW UP [facility] POC GLUCOSE SCREEN 2022-03-28 11:53:00 Kiara Shah [facility] XR CHEST 1 VW PORTABLE 2022-03-28 08:30:51 Pablo [facility] ARTERIAL BLOOD GAS 2022-03-28 06:48:00 Pablo Kiara [facility] BASIC METABOLIC PANEL, 2022-03-28 06:48:00 Pablo [facility] CALCIUM IONIZED [facility] LACTIC ACID, VENOUS 2022-03-28 06:48:[address] [facility] PHOSPHORUS LEVEL 2022-03-28 06:48:00 Pablo [facility] MAGNESIUM LEVEL 2022-03-28 06:48:00 Pablo [facility] PROTHROMBIN TIME 2022-03-28 06:48:00 Pablo [facility] APTT 2022-03-28 06:48:00 Pablo [facility] HEPATIC FUNCTION PANEL 2022-03-28 06:48:00 [facility] COMPLETE BLOOD COUNT W/ 2022-03-28 06:48:00 Kiara Shah [facility] GLUCOSE LEVEL 2022-03-28 06:48:00 Satya Gonzalez [facility] BLOOD UREA NITROGEN 2022-03-28 06:48:00 Satya Gonzalez [facility] ELECTROLYTE PANEL 2022-03-28 06:48:[address] [facility] SERUM CREATININE 2022-03-28 06:48:00 Satya Gonzalez [facility] .GLOMERULAR FILTRATION 2022-03-28 06:48:00 Satya Gonzalez [facility] CALCIUM IONIZED, VENOUS 2022-03-28 06:48:00 Satya Gonzalez [facility] ALBUMIN LEVEL 2022-03-28 06:48:00 Satya Gonzalez [facility] ALKALINE PHOSPHATASE 2022-03-28 06:48:[address] [facility] ALANINE AMINOTRANSFERASE 2022-03-28 06:48:00 Satya Gonzalez [facility] ASPARTATE AMINOTRANSFERASE 2022-03-28 06:48:00 Satya Gonzalez [facility] TOTAL PROTEIN 2022-03-28 06:48:00 Satya Gonzalez [facility] FRACTIONATED BILIRUBIN 2022-03-28 06:48:00 Satya Gonzalez [facility] Results CBC 2022-03-28 06:48:00 Darion Doherty [facility] [facility] MANUAL DIFFERENTIAL 2022-03-28 06:48:00 Darion Doherty [facility] POC GLUCOSE SCREEN 2022-03-28 05:26:00 Pablo, Kiara Universi [facility] POC GLUCOSE SCREEN 2022-03-27 23:38:00 Pablo, Kiara Universi ty [facility] ARTERIAL BLOOD GAS 2022-03-27 23:36:00 Pablo, [facility] BASIC METABOLIC PANEL, 2022-03-27 23:36:00 Pablo, [facility] CALCIUM IONIZED [facility] LACTIC ACID, VENOUS 2022-03-27 23:36:[address] [facility] PHOSPHORUS LEVEL 2022-03-27 23:36:00 Pablo [facility] MAGNESIUM LEVEL 2022-03-27 23:36:00 Pablo [facility] GLUCOSE LEVEL 2022-03-27 23:36:00 Satya Gonzalez [facility] BLOOD UREA NITROGEN 2022-03-27 23:36:00 Satya Gonzalez [facility] ELECTROLYTE PANEL 2022-03-27 23:36:[address] [facility] SERUM CREATININE 2022-03-27 23:36:00 Satya Gonzalez [facility] .GLOMERULAR FILTRATION 2022-03-27 23:36:00 Satya Gonzalez [facility] CALCIUM IONIZED, VENOUS 2022-03-27 23:36:00 Satya Gonzalez [facility] US RENAL 2022-03-27 21:52:48 Martínez Mendez [place] ivanna lee [facility] POC GLUCOSE SCREEN 2022-03-27 17:47:00 Pablo Ki[facility] ARTERIAL BLOOD GAS 2022-03-27 16:19:00 Pablo, Kiara Universi [facility] BASIC METABOLIC PANEL, 2022-03-27 16:19:00 Kiara Shah [facility] CALCIUM IONIZED [facility] LACTIC ACID, VENOUS 2022-03-27 16:19:[address] [facility] PHOSPHORUS LEVEL 2022-03-27 16:19:00 Pablo [facility] MAGNESIUM LEVEL 2022-03-27 16:19:00 Pablo [facility] GLUCOSE LEVEL 2022-03-27 16:19:00 Satya Gonzalez [facility] BLOOD UREA NITROGEN 2022-03-27 16:19:00 Satya Gonzalez [facility] ELECTROLYTE PANEL 2022-03-27 16:19:[address] [facility] SERUM CREATININE 2022-03-27 16:19:00 Satya Gonzalez [facility] .GLOMERULAR FILTRATION 2022-03-27 16:19:00 Satya Gonzalez [facility] CALCIUM IONIZED, VENOUS 2022-03-27 16:19:00 Satya Gonzalez [facility] ARTERIAL BLOOD GAS 2022-03-27 14:32:00 Martínez Mendez [facility] POC GLUCOSE SCREEN 2022-03-27 13:27:00 Pablo Kiara Universi ty [facility] POC GLUCOSE SCREEN 2022-03-27 11:52:00 Pablo Kiara Universi ty [facility] POC GLUCOSE SCREEN 2022-03-27 10:58:00 Pablo Kiara Universi ty [facility] POC GLUCOSE SCREEN 2022-03-27 10:06:00 Pablo Kiara Universi ty [facility] VANCOMYCIN LEVEL TROUGH 2022-03-27 09:30:00 Ellie Tay [facility] [place] POC GLUCOSE SCREEN 2022-03-27 09:06:00 Pablo [facility] XR CHEST 1 VW PORTABLE 2022-03-27 08:50:25 Pablo Kiara [facility] COMPLETE BLOOD COUNT W/ 2022-03-27 08:16:00 Kiara Shah [facility] DI[facility] Results CBC 2022-03-27 08:16:00 Florencia DohertyVeronica [facility] MANUAL DIFFERENTIAL 2022-03-27 08:16:00 Darion Doherty [facility] POC GLUCOSE SCREEN 2022-03-27 08:03:00 Pablo Kiara [facility] CARDIAC PANEL 2022-03-27 07:36:00 [facility] ARTERIAL BLOOD GAS 2022-03-27 07:36:00 Pablo, Kiara [facility] BASIC METABOLIC PANEL, 2022-03-27 07:36:00 [facility] LACTIC ACID, VENOUS 2022-03-27 07:36:[address] [facility] PHOSPHORUS LEVEL 2022-03-27 07:36:00 Pablo [facility] MAGNESIUM LEVEL 2022-03-27 07:36:[address] [facility] PROTHROMBIN TIME 2022-03-27 07:36:00 Pablo [facility] APTT 2022-03-27 07:36:00 Pablo [facility] HEPATIC FUNCTION PANEL 2022-03-27 07:36:00 Pablo Kiara [facility] GLUCOSE LEVEL 2022-03-27 07:36:00 Satya Gonzalez [facility] BLOOD UREA NITROGEN 2022-03-27 07:36:00 Satya Gonzalez [facility] ELECTROLYTE PANEL 2022-03-27 07:36:[address] [facility] SERUM CREATININE 2022-03-27 07:36:00 Satya Gonzalez [facility] .GLOMERULAR FILTRATION 2022-03-27 07:36:00 Satya Gonzalez [facility] CALCIUM IONIZED, VENOUS 2022-03-27 07:36:00 Satya Gonzalez [facility] ALBUMIN LEVEL 2022-03-27 07:36:00 Satya Gonzalez [facility] ALKALINE PHOSPHATASE 2022-03-27 07:36:[address] [facility] ALANINE AMINOTRANSFERASE 2022-03-27 07:36:00 Satya Gonzalez [facility] ASPARTATE AMINOTRANSFERASE 2022-03-27 07:36:00 Satya Gonzalez [facility] TOTAL PROTEIN 2022-03-27 07:36:00 Satya Gonzalez [facility] FRACTIONATED BILIRUBIN 2022-03-27 07:36:00 Satya Gonzalez [facility] POC GLUCOSE SCREEN 2022-03-27 07:03:00 Pablo Kiara [facility] POC GLUCOSE SCREEN 2022-03-27 05:49:00 Pablo Kiara [facility] POC GLUCOSE SCREEN 2022-03-27 04:33:00 Pablo Kiara [facility] POC GLUCOSE SCREEN 2022-03-27 03:30:00 Pablo Kiara Universi ty [facility] POC GLUCOSE SCREEN 2022-03-27 02:33:00 Pablo Kiara Universi ty [facility] POC GLUCOSE SCREEN 2022-03-27 01:33:00 Pablo Kiara Universi ty [facility] POC GLUCOSE SCREEN 2022-03-27 00:35:00 Pablo Kiara Universi ty [facility] ARTERIAL BLOOD GAS 2022-03-26 23:20:00 Pablo Kiara Universi ty [facility] BASIC METABOLIC PANEL, 2022-03-26 23:20:00 Pablo [facility] CALCIUM IONIZED [facility] LACTIC ACID, VENOUS 2022-03-26 23:20:00 Pablo [facility] PHOSPHORUS LEVEL 2022-03-26 23:20:00 Pablo [facility] MAGNESIUM LEVEL 2022-03-26 23:20:00 Pablo [facility] GLUCOSE LEVEL 2022-03-26 23:20:00 Satya Gonzalez [facility] BLOOD UREA NITROGEN 2022-03-26 23:20:00 Satya Gonzalez [facility] ELECTROLYTE PANEL 2022-03-26 23:20:[address] [facility] SERUM CREATININE 2022-03-26 23:20:00 Satya Gonzalez [facility] .GLOMERULAR FILTRATION 2022-03-26 23:20:00 Satya Gonzalez [facility] CALCIUM IONIZED, VENOUS 2022-03-26 23:20:00 Satya Gonzalez [facility] POC GLUCOSE SCREEN 2022-03-26 22:10:00 Pablo Kiara Universi ty [facility] CARDIAC PANEL 2022-03-26 21:50:00 Ellie Tay o [facility] ARTERIAL BLOOD GAS 2022-03-26 21:50:00 Satya Gonzalez [facility] POC GLUCOSE SCREEN 2022-03-26 21:06:00 [facility]SE SCREEN 2022-03-26 20:02:00 [facility] BLOODCULTURE 2022-03-26 19:31:00 Satya Gonzalez [facility] ANTINUCLEAR ANTIBODY HEP-2 2022-03-26 19:31:00 Mars Shaw [facility] SUBSTRATE IGG [facility] SEDIMENTATION RATE 2022-03-26 19:31:00 [facility] NON-AUTOMATED [facility] ANCA PANEL FOR VASCULITIS, 2022-03-26 19:31:00 Mars Shaw [facility] SERUM [facility] C REACTIVE PROTEIN 2022-03-26 19:31:00 Jayda Shaw [facility] PROCALCITONIN 2022-03-26 19:31:00 Jayda Shaw [facility] LACTIC ACID, VENOUS 2022-03-26 19:31:00 Satya Gonzalez [facility] VANCOMYCIN LEVEL TROUGH 2022-03-26 18:24:00 Kiara Shah [facility] ECHOCARDIOGRAM 2D COMPLETE 2022-03-26 18:19:26 Ellie Tay U [facility] W CONTRAST [facility] PROCEDURE FOR CODING 2022-03-26 17:37:[address] [facility] STREPTOCOCCUS PNEUMONIAE 2022-03-26 17:23:00 Ellie Tay [facility] ANTIGEN, URINE [facility] LEGIONELLA ANTIGEN, URINE 2022-03-26 17:23:00 Ell[facility] MRSA SCREENING CULTURE 2022-03-26 17:23:00 Ellie Tay [facility] LEGIONELLA URINE ANTIGEN 2022-03-26 17:23:00 Iwona Samuels [facility] PATH REVIEW [facility] STREPTOCOCCAL URINE 2022-03-26 17:23:00 Iwona Samuels [facility] ANTIGEN PATH REVIEW [facility] [place] POC GLUCOSE SCREEN 2022-03-26 17:21:00 Kiara Shah [facility] ARTERIAL BLOOD GAS 2022-03-26 17:01:00 [facility] PROT[facility] TIME 2022-03-26 17:01:00 Satya Gonzalze [facility] FIBRINOGEN ACTIVITY 2022-03-26 17:01:00 Satya Gonzalez [facility] APTT 2022-03-26 17:01:00 Satya Gonzalez [facility] HC ARTERIAL LINE FOR BP 2022-03-26 16:45:57 Satya Gonzalez [facility] XR CHEST 1 VW 2022-03-26 16:27:00 Ellie Tay [facility] BASIC METABOLIC PANEL, 2022-03-26 16:24:00 Ellie Tay [facility] CALCIUM IONIZED [facility] MAGNESIUM LEVEL 2022-03-26 16:24:00 [facility] 2022-03-26 16:24:00 [facility] 2022-03-26 16:24:00 Ellie Tay [facility] NT PRO BNP 2022-03-26 16:24:00 [facility]SE L[facility]EL 2022-03-26 16:24:00 Jasvir Ellie [facility] ELECTROLYTE PANEL 2022-03-26 16:24:00 Jasvir [facility] SERUM CREATININE 2022-03-26 16:24:00 Jasvir [facility] .GLOMERULAR FILTRATION 2022-03-26 16:24:00 Ellie Tay [facility] CALCIUM IONIZED, VENOUS 2022-03-26 16:24:00 Ellie Tay [facility] BLOOD UREA NITROGEN 2022-03-26 16:24:00 Ellie Tay [facility] FRYE MISC TEST 2022-03-26 16:24:00 Karin Kapadia [facility] LEGIONELLA CULTURE 2022-03-26 16:17:00 Ellie Tay [facility] POC CHEM 8 2022-03-26 16:01:00 Kiara Shah [facility] POC CRITICAL 2022-03-26 15:55:00 Pablo Kiara [facility] POC ARTERIAL BLOOD GAS 2022-03-26 15:55:00 Kiara Shah [facility] LOWER RESPIRATORY CULTURE 2022-03-26 15:36:00 Ellie Tay [facility] W/ GRAM STAIN [facility] FUNGUS CULTURE 2022-03-26 15:36:00 Jasvir Ellie [facility] CULTURE W/ SMEAR 2022-03-26 15:36:00 Ellie Tay [facility] GENERAL LABORATORY ADD ON 2022-03-26 15:23:00 Karin Kapadia [facility] TEST [facility] POC CRITICAL 2022-03-26 15:12:00 Kiara Shah [facility] POC ARTERIAL BLOOD GAS 2022-03-26 15:12:00 Kiara Shah [facility] CT CHEST PULMONARY 2022-03-26 14:42:07 Robin Noe [facility] EMBOLISM W CONTRAST [facility] ARTERIAL BLOOD GAS 2022-03-26 14:06:00 [facility] ARTERIAL BLOOD GAS 2022-03-26 11:33:00 [facility]kh [facility] VENOUS BLOOD GAS 2022-03-26 11:28:00 [facility] BLOODCULTURE 2022-03-26 06:25:00 [facility]kh [facility] BASIC METABOLIC PANEL, 2022-03-26 06:25:00 Ellie Tay [facility] CALCIUM TOTAL [facility] COMPLETE BLOOD COUNT W/ 2022-03-26 06:25:00 Jasvir Ellie [facility] DIFFERENTIAL [facility] MAGNESIUM LEVEL 2022-03-26 06:25:00 Jasvir [facility] o [facility] PHOSPHORUS LEVEL 2022-03-26 06:25:00 Jasvir [facility] LACTIC ACID, VENOUS 2022-03-26 06:25:00 Robin Noe [facility] GLUCOSE LEVEL 2022-03-26 06:25:00 Paola Dill [facility] BLOOD UREA NITROGEN 2022-03-26 06:25:[address] [facility] ELECTROLYTE PANEL 2022-03-26 06:25:00 Paola Dill [facility] SERUM CREATININE 2022-03-26 06:25:00 Paola Dill [facility] .GLOMERULAR FILTRATION 2022-03-26 06:25:00 Paola [facility]ill [facility] CALCIUM LEVEL TOTAL 2022-03-26 06:25:[address] [facility] Results CBC 2022-03-26 06:25:00 Arvind Ranken [facility] o [facility] MANUAL DIFFERENTIAL 2022-03-26 06:25:00 Iwona Samuels [facility] NT PRO BNP 2022-03-26 06:25:00 Paola Dill [facility] CARDIAC PANEL 2022-03-26 06:25:00 Paola Dill [facility] C-PEPTIDE 2022-03-26 06:25:00 Paola Dill [facility] XR CHEST 1 VW PORTABLE 2022-03-26 06:01:00 Robin Noe [facility] POC GLUCOSE SCREEN 2022-03-26 04:09:00 Ishan [facility] Center POC GLUCOSE SCREEN 2022-03-26 01:07:00 Ishan [facility] EKG, 12-LEAD (PORTABLE) 2022-03-26 00:00:00 Satya Gonzalez [facility] POC GLUCOSE SCREEN 2022-03-25 21:46:00 Ishan [facility] [place] POC GLUCOSE SCREEN 2022-03-25 20:05:00 Ishan [facility] [place] US RENAL 2022-03-25 16:19:16 Arvind [facility] POC GLUCOSE SCREEN 2022-03-25 15:08:00 Ishan [facility] GENERAL LABORATORY ADD ON 2022-03-25 13:20:00 [facility] BASIC METABOLIC PANEL, 2022-03-25 10:45:00 Bud Goldman [facility] CALCIUM TOTAL [facility] GLUCOSE LEVEL 2022-03-25 10:45:00 H[facility] BLOOD UREA NITROGEN 2022-03-25 10:45:00 [facility] 2022-03-25 10:45:00 [facility] SERUM CREATININE 2022-03-25 10:45:00 [facility] .GLOMERULAR FILTRATION 2022-03-25 10:45:00 Bud Goldman [facility] RATE [facility] CALCIUM LEVEL TOTAL 2022-03-25 10:45:00 [facility] MAGNESIUM LEVEL 2022-03-25 10:45:00 Hanna [facility] PHOSPHORUS LEVEL 2022-03-25 10:45:00 [facility] POC GLUCOSE SCREEN 2022-03-25 10:35:00 Bud Goldman [facility] POC ICON 20 URINE 2022-03-25 07:24:00 Paola Dill [facility] TEST [facility] URINE CULTURE 2022-03-25 06:36:00 Paola Dill [facility] URINALYSIS WITH 2022-03-25 06:36:00 Paola iDll [facility] MICROSCOPIC IF INDICATED MD Meier [facility] URINALYSIS MICROSCOPIC 2022-03-25 06:36:00 [facility]ill [facility] EXAM [facility] XR CHEST 1 VW 2022-03-25 05:57:34 Paola Dill [facility] CONFIRM ABORH TYPE 2022-03-25 05:29:00 Paola Dill [facility] POC VENOUS BLOOD GAS + 2022-03-25 05:18:00 Pa[facility]ill [facility] LACTATE [facility] BLOODCULTURE 2022-03-25 05:10:00 Paola Dill [facility] RESPIRATORY MULTIPLEX PCR 2022-03-25 05:10:00 Paola Dill [facility] PANEL, NASOPHARYNGEAL SWAB MD Levi [facility] COMPLETE BLOOD COUNT W/ 2022-03-25 05:10:00 [facility]ill [facility] [place] DIFFERENTIAL [facility] COMPREHENSIVE METABOLIC 2022-03-25 05:10:00 [facility] PANEL [facility] MAGNESIUM LEVEL 2022-03-25 05:10:00 Paola Dill [facility] PHOSPHORUS LEVEL 2022-03-25 05:10:00 Paola Dill [facility] PROTHROMBIN TIME 2022-03-25 05:10:00 Paloa Dill [facility] APTT 2022-03-25 05:10:00 Paola Dill [facility] TYPE AND SCREEN 2022-03-25 05:10:00 Paola Dill [facility] PROCALCITONIN 2022-03-25 05:10:00 Paola Dill [facility] LACTATE DEHYDROGENASE 2022-03-25 05:10:00 Paola Dill [facility] C REACTIVE PROTEIN 2022-03-25 05:10:00 Paola Dill [facility] Results CBC 2022-03-25 05:10:00 Paola Dill [facility] MANUAL DIFFERENTIAL 2022-03-25 05:10:[address] [facility] GLUCOSE LEVEL 2022-03-25 05:10:00 Paola Dill [facility] BLOOD UREA NITROGEN 2022-03-25 05:10:[address] [facility] ELECTROLYTE PANEL 2022-03-25 05:10:00 Paola Dill [facility] SERUM CREATININE 2022-03-25 05:10:00 [facility] .GLOMERULAR FILTRATION 2022-03-25 05:10:00 Paola Dill [facility] CALCIUM LEVEL TOTAL 2022-03-25 05:10:[address] [facility] ALBUMIN LEVEL 2022-03-25 05:10:00 Paola Dill [facility] ALKALINE PHOSPHATASE 2022-03-25 05:10:00 Paola Dill [facility] ALANINE AMINOTRANSFERASE 2022-03-25 05:10:00 Paola Dill [facility] ASPARTATE AMINOTRANSFERASE 2022-03-25 05:10:00 Paola Dill [facility] TOTAL PROTEIN 2022-03-25 05:10:00 Paola Dill [facility] ABORH 2022-03-25 05:10:00 Paola Dill [facility] ANTIBODY SCREEN 2022-03-25 05:10:00 Paola Dill [facility] TMP INTERPRETATION 2022-03-25 05:10:00 Paola Dill [facility] ANTIBODY SCREEN NEGATIVE MD Meier [facility] CLOT EXPIRATION DATE 2022-03-25 05:10:00 Paola Dill [facility] FRACTIONATED BILIRUBIN 2022-03-25 05:10:[address] [facility] POC GLUCOSE SCREEN 2022-03-25 04:44:00 Paola Dill [facility] EKG, 12-LEAD (PORTABLE) 2022-03-25 00:00:00 Iwona Samuels [facility] OSI CT ABDOMEN AND PELVIS 2022-03-24 22:15:00 [facility]AC[facility] SP[facility] W WO 2022-03-15 00:31:00 Johnson Ann [facility] CONTRAST [facility] COVID-19 (SARS-COV-2) PCR 2022-03-13 20:16:00 [facility] US HEAD NECK SOFT TISSUE 2022-03-13 20:05:43 [facility]IRUS AB 2022-03-13 18:30:00 Johnson Ann [facility] SCREEN W/REFLEX HCV PCR MD Garrison [facility] ALBUMIN LEVEL 2022-03-13 18:30:00 Seth [facility] BLOOD UREA NITROGEN 2022-03-13 18:30:00 Seth Johnson [facility] CALCIUM LEVEL TOTAL 2022-03-13 18:30:00 Seth [facility] COMPLETE BLOOD COUNT W/ 2022-03-13 18:30:00 Johnson Ann [facility] DIFFERENTIAL [facility] SERUM CREATININE 2022-03-13 18:30:00 Dadermelinda, [facility] FREE THYROXINE 2022-03-13 18:30:00 [facility] MAGNESIUM LEVEL 2022-03-13 18:30:00 Seth, [facility] PTH INTACT 2022-03-13 18:30:00 Dadermelinda, [facility] PROTHROMBIN TIME 2022-03-13 18:30:00 Dadermelinda, [facility] APTT 2022-03-13 18:30:00 Dadermelinda, [facility] PHOSPHORUS LEVEL 2022-03-13 18:30:00 Dadermelinda, [facility] THYROGLOBULIN ANTIBODY 2022-03-13 18:30:00 Seth Johnson [facility] THYROID STIMULATING 2022-03-13 18:30:00 Johnson Ann [facility] HORMONE [facility] VITAMIN D 25 HYDROXY LEVEL 2022-03-13 18:30:00 [facility] 2022-03-13 18:30:00 Johnson Ann [facility] SERUM CREATININE 2022-03-13 18:30:00 Seth [facility] .GLOMERULAR FILTRATION 2022-03-13 18:30:00 Johnson Ann [facility] RATE [facility] Results CBC 2022-03-13 18:30:00 Seth [facility] MANUAL DIFFERENTIAL 2022-03-13 18:30:00 Seth Johnson [facility] OSI US THYROID 2022-01-30 19:11:00 Seth [facility] Plan of Care Planned Activity Planned Date Details Comments Source Future Scheduled 2022-10-02 COVID-19 Vaccination [facility] [place] Test 10:43:59 (3 - Pfizer series) MD [facility] [code = COVID-19 Center Vaccination (3 - Pfizer series)] Future Scheduled 2022-08-24 COVID-19 Vaccination [facility] [place] Test 15:50:49 (3 - Pfizer series) [facility] [code = COVID-19 Center Vaccination (3 - Pfizer series)] Future Scheduled 2022-08-24 COVID-19 Vaccination [facility] [place] Test 15:50:49 (3 - Pfizer series) [facility] [code = COVID-19 Center Vaccination (3 - Pfizer series)] Future Scheduled 2022-08-24 COVID-19 Vaccination [facility] [place] Test 15:50:49 (3 - Pfizer series) [facility] [code = COVID-19 Center Vaccination (3 - Pfizer series)] Future Scheduled 2022-07-30 COVID-19 Vaccination [facility] [place] Test 12:23:36 (3 - Pfizer series) [facility] [code = COVID-19 Center Vaccination [...] Goal Plan of Care Note [code = 04492-1] Goal Plan of Care Note [code = 36542-9] Goal Plan of Care Note [code = 57199-0] Goal Plan of Care Note [code = 79104-8] Encounters Start End Encounter Admission Attending Care Care Encounter Source Date/Time Date/Time Type Type Clinicians Facility Department ID 2022-09-[address] [facility] [id number] Common 13:16:01 [id number] [facility] 2022-09-25 2022-09-25 Outpatient SFA SFA Edwin 14:59:48 14:59:48 [id number] F Gm 2022-08-06 2022-08-06 Outpatient SFA SFA Edwin 13:05:28 13:05:28 [id number] F [place] 2022-07-26 2022-07-26 [facility], 1.2.840.1 [id number] Univers 10:36:46 23:59:00 Encounter Megan A 83865.1.1 it y of 3.412.2.7 [place] .3.720780 MD Gonzales [facility] 2022-07-26 2022-07-26 [facility] 1.2.840.1 [id number] Univers 10:36:46 23:59:00 Encounter Megan A 05222.1.1 it y of 3.412.2.7 [place] .3.012668 MD Gonzales [facility] 2022-07-26 2022-07-26 [facility] 1.2.840.1 [id number] Univers 10:00:00 10:35:00 Encounter Megan A 52378.1.1 it y of 3.412.2.7 [place] .3.656886 MD Gonzales [facility] 2022-07-26 2022-07-26 [facility], 1.2.840.1 [id number] Univers 10:00:00 10:35:00 Encounter Megan A 80187.1.1 it y of 3.412.2.7 [place] .3.967020 MD Gonzales [facility] 2022-07-26 2022-07-26 Travel 1.2.840.1 1.2.017.992 [id number] Univers 00:00:00 00:00:00 63459.1.1 350.1.13.41 ity of 3.412.2.[place]3.698 [place]3.056521 084.8 MD Gonzales [facility] 2022-07-26 2022-07-26 Travel 1.2.840.1 1.2.692.119 [id number] Univers 00:00:00 00:00:00 03648.1.1 350.1.13.41 ity of 3.412.2.[place]3.698 [place] .3.647436 084.8 MD Gonzales [facility] 2022-07-22 2022-07-22 Outpatient [facility] [id number] Edwin 08:27:15 08:27:15 [id number] F [place] 2022-07-15 2022-07-15 [facility], 1.2.840.1 [id number] Univers 14:23:57 23:59:00 Encounter Megan A 15110.1.1 it y of 3.412.2.7 [place] .3.010270 MD Gonzales [facility] 2022-07-15 2022-07-15 [facility], 1.2.840.1 [id number] Univers 14:23:57 23:59:00 Encounter Megan A 87078.1.1 it y of 3.412.2.7 [place] .3.962396 MD Gonzales [facility] 2022-07-15 2022-07-15 Follow-Up Kang, 1.2.840.1 [id number] Univers 13:20:00 17:46:42 Megan A 23295.1.1 ity of 3.412.2.7 [place] .3.631013 MD Gonzales [facility] 2022-07-15 2022-07-15 Follow-Up RADHA Kapadia, 1.2.840.1 [id number] Univers 13:20:00 17:46:42 Megan Jorge 09182.1.1 ity of 3.412.2.7 [place] .3.516507 MD Geronimo8 [facility] 2022-07-15 2022-07-15 Travel 1.2.840.1 1.2.896.868 [id number] Univers 00:00:00 00:00:00 93879.1.1 350.1.13.41 ity of 3.412.2.7 [place]7.3.698 [place] .3.513840 084.8 MD Geronimo8 [facility] 2022-07-15 2022-07-15 Travel 1.2.840.1 1.2.961.346 [id number] [facility] 00:00:00 00:00:00 98311.1.1 350.1.13.41 ity of 3.412.2.[place]7.3.698 [place] .3.052503 084.8 MD Gonzales [facility] 2022-07-10 2022-07-10 Outpatient SFA SFA [id number] Edwin 14:43:51 14:43:51 [id number] [facility] 2022-07-01 2022-07-01 Outpatient SFA SFA [id number] Edwin 13:03:42 13:03:42 [id number] F [place] 2022-06-12 2022-06-12 Outpatient SFA SFA [id number] Edwin 15:54:19 15:54:19 [id number] F [place] 2022-05-28 2022-05-28 Outpatient SFA SFA [id number]- Edwin 10:57:55 10:57:55 [id number] F [place] 2022-05-06 2022-05-06 Outpatient SFA SFA [id number] Edwin 08:52:54 08:52:54 [id number] F [place] 2022-05-02 2022-05-02 Telephone Fahad, 1.2.840.1 [id number] [facility] 00:00:00 00:00:00 Aneetha 72864.1.1 ity of 3.412.2.7 [place] .3.544431 MD Gonzales [facility] 2022-05-02 2022-05-02 Telephone Fahad, 1.2.840.1 [id number] Univers 00:00:00 00:00:00 Aneetha 39091.1.1 ity of 3.412.2.7 [place] .3.059951 MD Gonzales [facility] 2022-05-02 2022-05-02 Telephone Fahad, 1.2.840.1 [id number] Univers 00:00:00 00:00:00 Aneetha 35940.1.1 ity of 3.412.2.7 [place] .3.981533 MD Gonzales [facility] 2022-05-02 2022-05-02 Telephone Fahad, 1.2.840.1 [id number] Univers 00:00:00 00:00:00 Aneetha 67534.1.1 ity of 3.412.2.7 [place] .3.925528 MD Gonzales [facility] 2022-04-30 2022-04-30 Documentat Querido, 1.2.840.1 [id number] Univers 00:00:00 00:00:00 ion Shereen 71058.1.1 ity of 3.412.2.7 [place] .3.725536 MD Gonzales [facility] 2022-04-30 2022-04-30 Documentat Querido, 1.2.840.1 [id number] Univers 00:00:00 00:00:00 ion Shereen 18655.1.1 ity of 3.412.2.7 [place] .3.247000 MD Gonzales [facility] 2022-04-18 2022-04-18 Shelly Cason 1.2.840.1 [id number] Univers 00:00:00 00:00:00 Only , Inge Mahmood 26514.1.1 ity of 3.412.2.7 [place] .3.887674Jd Geronimo8 [facility] 2022-04-18 2022-04-18 Orders Kamla 1.2.840.1 [id number] Univers 00:00:00 00:00:00 Only , Inge Mahmood 10313.1.1 ity of 3.412.2.7 [place] .3.844472 MD Gonzales [facility] 2022-04-12 2022-04-12 [facility], 1.2.840.1 [id number] Univers 12:25:00 23:59:00 Encounter Johnson 01606.1.1 it y of 3.412.2.7 [place] .3.508887 MD Gonzales [facility] 2022-04-12 2022-04-12 [facility], 1.2.840.1 [id number] Univers 12:25:00 23:59:00 Encounter Johnson 21333.1.1 it y of 3.412.2.7 [place] .3.741689 MD Gonzales [facility] 2022-04-12 2022-04-12 Travel 1.2.840.1 1.2.503.517 [id number] Univers 00:00:00 00:00:00 13390.1.1 350.1.13.41 ity of 3.412.2.[place]7.3.698 [place] .3.320581 084.8 MD Gonzales [facility] 2022-04-12 2022-04-12 Travel 1.2.840.1 1.2.684.210 2016 [id number] Univers 00:00:00 00:00:00 09864.1.1 350.1.13.41 ity of 3.412.2.7 [place]7.3.698 [place] .3.666168 084.8 MD Gonzales [facility] 2022-04-05 2022-04-05 [facility], 1.2.840.1 [id number] Univers 20:00:00 20:05:00 Procedure Johnson 36442.1.1 it y of 3.412.2.7 [place] .3.425776 .8 [facility] 2022-04-05 2022-04-05 Ancillary RADHA Ann, 1.2.840.1 [id number] Univers 20:00:00 20:05:00 Procedure Johnson 11499.1.1 it y of 3.412.2.7 [place] .3.570580 .8 [facility] 2022-03-24 2022-04-02 [facility] Paola Dill 1.2.840.1 [id number] Univers 22:44:00 14:05:00 Encounter Bud Goldman 50007.1.1 ity of Magdiel Olmstead 3.412.2.7 T Kiara Huitron .3.200362 Satya Nick8 [facility] 2022-03-24 2022-04-02 [facility] Paola Dill 1.2.840.1 [id number] Univers 22:44:00 14:05:00 Encounter Bud Goldman 76158.1.1 ity of Magdiel Olm[place] 3.412.2.7 T Jose Daniel Huitronyssa Givens .3.007030 Satya Nick8 [facility] 2022-04-02 2022-04-02 Orders Francisco, 1.2.840.1 [id number] Univers 00:00:00 00:00:00 Only Hasana 70674.1.1 ity of 3.412.2.7 [place] .3.434555 .8 [facility] 2022-04-02 2022-04-02 Orders Noe, 1.2.840.1 [id number] [id number] Univers 00:00:00 00:00:00 Only Ry S 49908.1.1 ity of 3.412.2.7 [place] .3.774361 .8 [facility] 2022-04-02 2022-04-02 Orders Francisco, 1.2.840.1 [id number] Univers 00:00:00 00:00:00 Only Hasana 65137.1.1 ity of 3.412.2.7 [place] .3.062998 MD Geronimo8 [facility] 2022-04-02 2022-04-02 Orders Hasmukh, 1.2.840.1 [id number] [id number] Univers 00:00:00 00:00:00 Only Ry S 94224.1.1 ity of 3.412.2.7 [place] .3.872267 MD Geronimo8 [facility] 2022-03-30 2022-03-30 Inpatient [facility] [id number] 12:07:29 13:21:14 KIARA Kosta o 2022-03-30 2022-03-30 Inpatient [facility] [id number] 12:07:11 13:21:11 KIARA Kosta o 2022-03-30 2022-03-30 Inpatient [facility] [id number] 09:30:57 09:39:40 KIARA Kosta o 2022-03-29 2022-03-29 Travel 1.2.840.1 1.2.722.989 [id number] [id number] Univers 00:00:00 00:00:00 24836.1.1 350.1.13.41 ity of 3.412.2.7 [place]7.3.698 [place] .3.045425 084.8 MD Geronimo8 [facility] 2022-03-29 2022-03-29 Travel 1.2.840.1 1.2.021.280 0415 [id number] Univers 00:00:00 00:00:00 46065.1.1 350.1.13.41 ity of 3.412.2.7 [place]7.3.698 [place] .3.846402 084.8 MD Geronimo8 [facility] 2022-03-26 2022-03-26 Inpatient [facility] [id number] 07:54:18 07:56:00 KIARA mireles 2022-03-26 2022-03-26 Venecia OLMSTEAD [facility] [id number] 03:40:49 03:53:19 MAGDIEL mireles 2022-03-25 2022-03-25 Travel 1.2.840.1 1.2.919.576 0589 [id number] Univers 00:00:00 00:00:00 42082.1.1 350.1.13.41 ity of 3.412.2.7 2.[place]7.3.698 [place] .3.684347 084.8 MD Gonzales [facility] 2022-03-25 2022-03-25 Travel 1.2.840.1 1.2.610.585 4977 [id number] Univers 00:00:00 00:00:00 54753.1.1 350.1.13.41 ity of 3.412.2.7 2.[place]7.3.698 [place] .3.330321 084.8 MD Gonzales [facility] 2022-03-24 2022-03-24 Travel 1.2.840.1 1.2.342.443 4565 [id number] Univers 00:00:00 00:00:00 54868.1.1 350.1.13.41 ity of 3.412.2.7 2.[place]7.3.698 [place] .3.755542 084.8 MD Gonzales [facility] 2022-03-24 2022-03-24 Travel 1.2.840.1 1.2.597.142 [id number] [id number] Univers 00:00:00 00:00:00 02806.1.1 350.1.13.41 ity of 3.412.2.7 2.2.7.3.698 [place] .3.315075 084.8 MD Gonzales [facility] 2022-03-14 2022-03-14 Ancillary [place], 1.2.840.1 [id number] [facility] 16:15:00 18:00:00 Procedure Johnson 46706.1.1 it y of 3.412.2.7 [place] .3.380803 MD Gonzales [facility] 2022-03-14 2022-03-14 Ancillary [facility], 1.2.840.1 [id number] Univers 16:15:00 18:00:00 Procedure Johnson 42906.1.1 it y of 3.412.2.7 [place] .3.805496 MD Gonzales [facility] 2022-03-14 2022-03-14 Travel 1.2.840.1 1.2.217.726 2909 [id number] Univers 00:00:00 00:00:00 20532.1.1 350.1.13.41 ity of 3.412.2.7 2.2.7.3.698 [place] .3.461013 084.8 MD Gonzales [facility] 2022-03-14 2022-03-14 Travel 1.2.840.1 1.2.785.526 9312 [id number] Univers 00:00:00 00:00:00 73712.1.1 350.1.13.41 ity of 3.412.2.7 2.2.7.3.698 [place] .3.608136 084.8 MD Gonzales [facility] 2022-03-13 2022-03-13 [facility], 1.2.840.1 [id number] Univers 11:45:00 23:59:00 Encounter Johnson 26469.1.1 it y of 3.412.2.7 [place] .3.646574 MD Gonzales [facility] 2022-03-13 2022-03-13 [facility], 1.2.840.1 [id number] Univers 11:45:00 23:59:00 Encounter Johnson 15681.1.1 it y of 3.412.2.7 [place] .3.500147 MD Gonzales [facility] 2022-03-13 2022-03-13 Clinical Johnson Ann 1.2.840.9 [id number] Univers 14:45:00 14:45:00 Support Oziel Minerva A 56958.1.1 ity of 3.412.2.7 [place] .3.250592 MD Gonzales [facility] 2022-03-13 2022-03-13 Clinical Johnson Viveros 1.2.840.3 [id number] Univers 14:45:00 14:45:00 Support Elizabeth Ludwiglupe A 47194.1.1 ity of 3.412.2.7 [place] .3.090641 MD Geronimo8 [facility] 2022-03-13 2022-03-13 Ancillary Dadu, 1.2.840.1 [id number] Univers 12:45:00 14:45:00 Procedure Johnson 64625.1.1 it y of 3.412.2.7 [place] .3.877854 MD Geronimo8 [facility] 2022-03-13 2022-03-13 Ancillary EL Dadu, 1.2.840.1 [id number] Univers 12:45:00 14:45:00 Procedure Johnson 26978.1.1 it y of 3.412.2.7 [place] .3.848541 MD Geronimo8 [facility] 2022-03-13 2022-03-13 Office Dadu, 1.2.840.1 [id number] Univers 10:45:00 12:13:39 Visit Johnson 75923.1.1 ity of 3.412.2.7 [place] .3.643993 MD Gonzales [facility] 2022-03-13 2022-03-13 Office EL Dadu, 1.2.840.1 [id number] Univers 10:45:00 12:13:39 Visit Johnson 60821.1.1 ity of 3.412.2.7 [place] .3.696083 MD Gonzales [facility] 2022-03-13 2022-03-13 Travel 1.2.840.1 1.2.444.126 6652 [id number] Univers 00:00:00 00:00:00 27353.1.1 350.1.13.41 ity of 3.412.2.7 [place]7.3.698 [place] .3.373842 084.8 MD Gonzales [facility] 2022-03-13 2022-03-13 Travel 1.2.840.1 1.2.953.631 9155 [id number] Univers 00:00:00 00:00:00 25220.1.1 350.1.13.41 ity of 3.412.2.7 2.2.7.3.698 [place] .3.718000 084.8 MD Gonzales [facility] 2022-03-12 2022-03-12 NPR Dadu, 1.2.840.1 [id number] Univers 14:00:00 14:28:46 Johnson 82938.1.1 ity of 3.412.2.7 [place] .3.161095 MD Gonzales [facility] 2022-03-12 2022-03-12 NPR EL Dadu, 1.2.840.1 [id number] Univers 14:00:00 14:28:46 Johnson 62400.1.1 ity of 3.412.2.7 [place] .3.848769 MD Gonzales [facility] 2022-03-11 2022-03-[address] [facility] 680238- 202 Edwin 11:46:46 11:46:46 54066 F Gm 2022-03-01 2022-03-01 Gary Clay 1.2.840.1 [id number] Univers 00:00:00 00:00:00 Lindy Macias 76406.1.1 ity of n 3.412.2.7 [place] .3.166282 MD Gonzales [facility] 2022-03-01 2022-03-01 Gary Clay 1.2.840.1 [id number] 52 [id number] Univers 00:00:00 00:00:00 Lindy Macias 13433.1.1 ity of n 3.412.2.7 [place] .3.265436 MD Geronimo8 [facility] 2022-02-22 2022-02-22 Ancillary Dadu, 1.2.840.1 [id number] 1101 [id number] Univers 20:10:00 20:15:00 Procedure Johnson 12563.1.1 it y of 3.412.2.7 [place] .3.100929 MD Geronimo8 [facility] 2022-02-22 2022-02-22 Ancillary EL Dadu, 1.2.840.1 [id number] 1101 [id number] Univers 20:10:00 20:15:00 Procedure Johnson 66760.1.1 it y of 3.412.2.7 [place] .3.667116 MD Geronimo8 [facility] 2022-02-22 2022-02-22 Ancillary Dadu, 1.2.840.1 [id number] [id number] Univers 20:05:00 20:10:00 Procedure Johnson 50968.1.1 it y of 3.412.2.7 [place] .3.911380 MD Geronimo8 [facility] 2022-02-22 2022-02-22 Ancillary EL Dadu, 1.2.840.1 [id number] 1101 [id number] Univers 20:05:00 20:10:00 Procedure Johnson 06500.1.1 it y of 3.412.2.7 [place] .3.987346 MD Geronimo8 [facility] 2022-02-22 2022-02-22 Ancillary EL Dadu, 1.2.840.1 [id number] 1101 [id number] Univers 20:00:00 20:05:00 Procedure Johnson 39707.1.1 it y of 3.412.2.7 [place] .3Juanpablo984663 MD Geronimo8 [facility] 2022-02-22 2022-02-22 Ancillary Dadu, 1.2.840.1 [id number] 1101 [id number] Univers 20:00:00 20:05:00 Procedure Johnson 37555.1.1 it y of 3.412.2.7 [place] .3Juanpablo411282 MD Gonzales [facility] 2022-02-22 2022-02-22 Lab Gary Simon 1.2.840.1 [id number] 52 [id number] Univers 00:00:00 00:00:00 Slim Diazteresa 27238.1.1 ity of n 3.412.2.7 [place] .3.404243 MD Gonzales [facility] 2022-02-22 2022-02-22 Lab Gary Simon 1.2.840.1 [id number] 52 [id number] Univers 00:00:00 00:00:00 Slim Diaz Vejabhuti 32589.1.1 ity of n 3.412.2.7 [place] .3.805956 MD Gonzales [facility] [facility] 2022-02-19 2022-02-19 Outpatient [employer] [id number] Edwin 15:11:18 15:11:18 [id number] F Gm 2022-02-07 2022-02-07 Orders Dadu, 1.2.840.1 [id number] Univers 00:00:00 00:00:00 Only Johnson [id number] ity of 3.412.2.7 [place] .[id number] MD Gonzales [facility] 2022-02-07 2022-02-07 Orders Dadu, 1.2.840.1 [id number] Univers 00:00:00 00:00:00 Only Johnson [id number] ity of 3.412.2.7 [place] .[id number] MD Gonzales [facility] 2022-02-06 2022-02-06 Outpatient [employer] [id number] Edwin 16:18:48 16:18:48 [id number] F Gm 2022-02-06 2022-02-06 Outpatient [id number] [id number] 00:00:00 00:00:00 Visit [id number] -[id number] 2019-04-21 2019-04-21 Outpatient DAD, [facility] [id number] 12:49:19 12:49:19 JOHNSON Kosta o n Results Test Description Test Time Test Comments Results Result Comments Source Echocardiogram 2D Complete 2022-07-26 20:04:07 Test Item Value Reference Range Interpretation Comme nts EF (test code = [id number]) 63 PXN (test code = PXN) Mariama [...] - Akinetic 4 - DyskineticInterpret Hypokinetic5 - Quqzhsxuav1V imaginD volumes were not performed in this [...] (avg): 6.6 E/e' (lat): 5.1E/e' (sept): 9.3 [facility] 2022-07-26 20:04:07 Test Item Value Reference Range Interpretation Comments EF (test code = 63 [id number]) PXN (test code Mariama Mendoza MD = [...] - Akinetic 4 - DyskineticInterpret Hypokinetic5 - Nzbrowyjtc0D imaginD volumes were not performed in this [...] (avg): 6.6 E/e' (lat): 5.1E/e' (sept): 9.3 [facility] ([facility])2022-07-26 17:23:13NT ProBNP<36<=125 pg/mLUT [facility])2022-07-26 17:23:13NT ProBNP<36<=125 pg/mLUT [facility] BNP (In-House)2022-07-26 17:23:13NT ProBNP<36<=125 pg/mLUT [facility]NT-Pro BNP (In-House)2022-07-26 17:23:13NT ProBNP<36<=125 pg/mLUT [facility]2022-07-26 17:23:13NT ProBNP<36<=125 pg/mLUT [facility]KUnSeymour HospitalCardiac Ypacl7531-78-28 16:19:53 Test Item Value Reference Range Interpretation Comments CK (test code = 55 U/L 26-192 2157-6) CK MB (test code = <=5.3 06404-7) Troponin T (test code <=19 < 19 n g/L Suggest retest = 28327-6) at 3 to 6 hours later to [...] interfere nces and falsely low res ults. [facility] CenterCard[facility] Qffvq8614-27-29 16:19:53 Test Item Value Reference Range Interpretation Comments CK (test code = 55 U/L 26192 2157-6) CK MB (test code = <=5.3 47098-3) Troponin T (test code <=19 < 19 n g/L Suggest retest = 41382-7) at 3 to 6 hours later to [...] interfere nces and falsely low res ults. [facility] CenterCard[facility] Wxfic7217-09-38 16:19:53 Test Item Value Reference Range Interpretation Comments CK (test code = 55 U/L 26-192 2157-6) CK MB (test code = <=5.3 82525-0) Troponin T (test code <=19 < 19 n g/L Suggest retest = 23531-5) at 3 to 6 hours later to [...] interfere nces and falsely low res ults. [facility] Center[facility] Ovqjb9422-66-64 16:19:53 Test Item Value Reference Range Interpretation Comments CK (test code = 55 U/L 192 7-6) CK MB (test code = <=5.3 31599-5) Troponin T (test code <=19 < 19 n g/L Suggest retest = 20763-6) at 3 to 6 hours later to [...] interfere nces and falsely low res ults. [facility] CenterCard[facility] Naudz9769-92-40 16:19:53 Test Item Value Reference Range Interpretation Comments CK (test code = 55 U/L 26-192 2157-6) CK MB (test code = <=5.3 85638-7) Troponin T (test code <=19 < 19 n g/L Suggest retest = 59591-6) at 3 to 6 hours later to rule out myocar dial infarction >= 1 9 to <=52 ng/L Possible m yocardial injury. Suggest retest at 3 hours. - a c hange of < 20 ng/L, retest at 6 [...] interfere nces and falsely low res ults. [facility] [id number] 16:19:30 Test Item Value Reference Range Interpretation Comments T4 Free (test code = 3024-7) 1.53 ng/dL 0.93-1.70 [place] [id number] 16:19:30 Test Item Value Reference Range Interpretation Comments T4 Free (test code = 3024-7) 1.53 ng/dL 0.93-1.70 [place] [id number] 16:19:30 Test Item Value Reference Range Interpretation Comments T4 Free (test code = 3024-7) 1.53 ng/dL 0.93-1.70 [facility] CenterFree [id number] 16:19:30 Test Item Value Reference Range Interpretation Comments T4 Free (test code = 3024-7) 1.53 ng/dL 0.93-1.70 [facility] [id number] 16:19:30 Test Item Value Reference Range Interpretation Comments T4 Free (test code = 3024-7) 1.53 ng/dL 0.93-1.70 [facility] CenterFractionated Rwwiclgsy1107-19-56 16:16:37 Test Item Value Reference Range Interpretation [...] par ameters are outside rep ortable range [facility] CenterFractionated Lgosxbmud2123-43-24 16:16:37 Test Item Value Reference Range Interpretation [...] par ameters are outside rep ortable range [facility] CenterFractionated Vansvtiwy3245-30-27 16:16:37 Test Item Value Reference Range Interpretation [...] par ameters are outside rep ortable range [facility] CenterFractionated Ouxxdrdga9494-09-38 16:16:37 Test Item Value Reference Range Interpretation [...] par ameters are outside rep ortable range [facility] CenterFractionated Lcwapybti2898-02-98 16:16:37 Test Item Value Reference Range Interpretation [...] par ameters are outside rep ortable range [facility] CenterGlomerular Filtration Rate 2022-07-26 16:16:33 Test Item Value Reference Range Interpretation Comments eGFR (test code = 145 See_Comment The eGFRcr is calculated with 54867-3) the 2020 CKD-EP I creatinine equation using [...] should be class ified by cause, GFR abdulazzi gory, and albuminuria cat egory. KDIGO guidelines [...] int erpret this result as nehemiah l/abnormal. [facility] CenterGlomerular Filtration Rate 2022-07-26 16:16:33 Test Item Value Reference Range Interpretation Comments eGFR (test code = 145 See_Comment The eGFRcr [place] calculated with 04371-4) the 2020 CKD-EP I creatinine equation using [...] CKD. [Automated mess age] The system which [employer] nerated this result transmit eugene reference range: >=60 mL/ min/1.73 sq. m. The referenc e range was not used to int erpret this result as nehemiah l/abnormal. [facility] CenterGlomerular Filtration Rate 2022-07-26 16:16:33 Test Item Value Reference Range Interpretation Comments eGFR (test code = 145 See_Comment The eGFRcr [place] calculated with 69319-9) the 2020 CKD-EP I creatinine equation using [...] CKD. [Automated mess age] The system which [employer] nerated this result transmit eugene reference range: >=60 mL/ min/1.73 sq. m. The referenc e range was not used to int erpret this result as nehemiah l/abnormal. [facility] CenterGlomerular Filtration Rate 2022-07-26 16:16:33 Test Item Value Reference Range Interpretation Comments eGFR (test code = 145 See_Comment The eGFRcr is calculated with 66918-2) the 2020 CKD-EP I creatinine equation using [...] int erpret this result as nehemiah l/abnormal. [facility] CenterGlomerular Filtration Rate 2022-07-26 16:16:33 Test Item Value Reference Range Interpretation Comments eGFR (test code = 145 See_Comment The eGFRcr [place] calculated with 30406-3) the 2020 CKD-EP I creatinine equation using [...] int erpret this result as nehemiah l/abnormal. [facility] CenterAlkaline Ofktuwujvmj6697-55-50 16:16:32 Test Item Value Reference Range Interpretation Comments Alk Phos (test code = 6768-6) 112 U/L 35-104 H Lab Interpretation (test code = Abnormal 53706-8) [facility] CenterAlkaline Bshdlzgziyj0807-88-11 16:16:32 Test Item Value Reference Range Interpretation Comments Alk Phos (test code = 6768-6) 112 U/L 35-104 H Lab Interpretation (test code = Abnormal 58822-8) [facility] CenterAlkaline Geolopumzec9926-95-10 16:16:32 Test Item Value Reference Range Interpretation Comments Alk Phos (test code = 6768-6) 112 U/L 35-104 H Lab Interpretation (test code = Abnormal 72968-0) [facility] CenterAlkaline Gkqcdbfvbwq9652-69-45 16:16:32 Test Item Value Reference Range Interpretation Comments Alk Phos (test code = 6768-6) 112 U/L 35-104 H Lab Interpretation (test code = Abnormal 50866-8) [facility] CenterAlkaline Zrxvyfepebi7802-39-86 16:16:32 Test Item Value Reference Range Interpretation Comments Alk Phos (test code = 6768-6) 112 U/L 35-104 H Lab Interpretation (test code = Abnormal 88221-6) [facility] CenterAlbumin Abezp9862-34-50 16:16:31 Test Item Value Reference Range Interpretation Comments Albumin Lvl (test code 4.6 See_Comment [Aut omated message] The = 1750-08) system which ge nerated this result tra nsmitted reference range : 3.5 - 5.2 gm/dL. The refe rence range was not used to interpret this result as normal/abnormal . [facility] CenterAlbumin Zzgtw3188-33-15 16:16:31 Test Item Value Reference Range Interpretation Comments Albumin Lvl (test code 4.6 See_Comment [Aut omated message] The = 1750-08) system which ge nerated this result tra nsmitted reference range : 3.5 - 5.2 gm/dL. The refe rence range was not used to interpret this result as normal/abnormal . [facility] CenterAlbumin Tgvkt5042-93-45 16:16:31 Test Item Value Reference Range Interpretation Comments Albumin Lvl (test code 4.6 See_Comment [Aut omated message] The = 1750-08) system which ge nerated this result tra nsmitted reference range : 3.5 - 5.2 gm/dL. The refe rence range was not used to interpret this result as normal/abnormal . [facility] CenterAlbumin Iewvs0608-10-44 16:16:31 Test Item Value Reference Range Interpretation Comments Albumin Lvl (test code 4.6 See_Comment [Aut omated message] The = 1750-08) system which ge nerated this result tra nsmitted reference range : 3.5 - 5.2 gm/dL. The refe rence range was not used to interpret this result as normal/abnormal . [facility] CenterAlbumin Tpxaz3782-21-58 16:16:31 Test Item Value Reference Range Interpretation Comments Albumin Lvl (test code 4.6 See_Comment [Aut omated message] The = 1750-08) system which ge nerated this result tra nsmitted reference range : 3.5 - 5.2 gm/dL. The refe rence range was not used to interpret this result as normal/abnormal . [facility] CenterAspartate Aminotransferase 2022-07-26 16:16:30 Test Item Value Reference Range Interpretation Comments AST (test code = 1920-8) 31 U/L <=32 [facility] CenterAspartate Aminotransferase 2022-07-26 16:16:30 Test Item Value Reference Range Interpretation Comments AST (test code = 1920-8) 31 U/L <=32 [facility] CenterAspartate Aminotransferase 2022-07-26 16:16:30 Test Item Value Reference Range Interpretation Comments AST (test code = 1920-8) 31 U/L <=32 [facility] CenterAspartate Aminotransferase 2022-07-26 16:16:30 Test Item Value Reference Range Interpretation Comments AST (test code = 1920-8) 31 U/L <=32 [facility] CenterAspartate Aminotransferase 2022-07-26 16:16:30 Test Item Value Reference Range Interpretation Comments AST (test code = 1920-8) 31 U/L <=32 [facility] CenterElectrolyte Wrxgs3384-73-01 16:16:29 Test Item Value Reference Range Interpretation [...] to interpret this result as normal/abnormal . [facility] CenterElectrolyte Kgjut2856-91-40 16:16:29 Test Item Value Reference Range Interpretation [...] = 10 See_Comment [Aut omated message] The 06380-3) system which ge nerated this result tra nsmitted reference range : 4 - 14 mEq/L. The refe rence range was not u sed to interpret this result as normal/abnormal . [facility] CenterElectrolyte Sqsci3807-06-30 16:16:29 Test Item Value Reference Range Interpretation [...] to interpret this result as normal/abnormal . [facility] CenterElectrolyte Ddxuk1843-79-60 16:16:29 Test Item Value Reference Range Interpretation Comments Sodium Lvl (test code = 138 See_Comment [Au tomated message] The 2950-03) system which ge nerated this result tra nsmitted reference range : 136 - 145 mEq/L. The reference range was not u sed to interpret this result as normal/abnormal . Potassium Lvl (test 4.4 See_Comment [Automa euegne message] The code = 2823-3) system which [...] to interpret this result as normal/abnormal . [facility] CenterElectrolyte Aftub1558-83-19 16:16:29 Test Item Value Reference Range Interpretation [...] to interpret this result as normal/abnormal . [facility] [place].Serum Sixjcujpkf4353-18-78 16:16:28 Test Item Value Reference Range Interpretation Comments Creatinine (test code = 2160-0) 0.35 mg/dL 0.51-0.95 L Lab Interpretation (test code = Abnormal 14528-1) [facility].Serum Cuvtbtkynp6167-74-38 16:16:28 Test Item Value Reference Range Interpretation Comments Creatinine (test code = 2160-0) 0.35 mg/dL 0.51-0.95 L Lab Interpretation (test code = Abnormal 44592-1) [facility].Serum Dbeuanawpb9732-81-32 16:16:28 Test Item Value Reference Range Interpretation Comments Creatinine (test code = 2160-0) 0.35 mg/dL 0.51-0.95 L Lab Interpretation (test code = Abnormal 95421-2) [facility].Serum Tdjasfwgxf8296-17-37 16:16:28 Test Item Value Reference Range Interpretation Comments Creatinine (test code = 2160-0) 0.35 mg/dL 0.51-0.95 L Lab Interpretation (test code = Abnormal 10607-6) [facility].Serum Opautgrtxv8876-84-14 16:16:28 Test Item Value Reference Range Interpretation Comments Creatinine (test code = 2160-0) 0.35 mg/dL 0.51-0.95 L Lab Interpretation (test code = Abnormal 04831-0) [facility] CenterTotal Rogttwl9871-04-24 16:16:22 Test Item Value Reference Range Interpretation Comments Total Protein (test code = 2885-2) 7.4 g/dL 6.4-8.3 [facility] CenterTotal Cgrgtnz3189-91-17 16:16:22 Test Item Value Reference Range Interpretation Comments Total Protein (test code = 2885-2) 7.4 g/dL 6.4-8.3 [facility] CenterTotal Sctiijz9626-04-94 16:16:22 Test Item Value Reference Range Interpretation Comments Total Protein (test code = 2885-2) 7.4 g/dL 6.4-8.3 [facility] CenterTotal Zeuddxm4026-90-50 16:16:22 Test Item Value Reference Range Interpretation Comments Total Protein (test code = 2885-2) 7.4 g/dL 6.4-8.3 [facility] CenterTotal Tadqvuz4182-82-75 16:16:22 Test Item Value Reference Range Interpretation Comments Total Protein (test code = 2885-2) 7.4 g/dL 6.4-8.3 [facility] CenterCalcium Sbfwk3144-61-60 16:16:21 Test Item Value Reference Range Interpretation Comments Calcium Lvl (test code = 88398-1) 10.4 mg/dL 8.4-10.2 H Lab Interpretation (test code = Abnormal 69283-3) [facility] CenterCalcium Qpsjp8145-09-84 16:16:21 Test Item Value Reference Range Interpretation Comments Calcium Lvl (test code = 29133-7) 10.4 mg/dL 8.4-10.2 H Lab Interpretation (test code = Abnormal 12043-4) [facility] CenterCalcium Sewes4160-29-17 16:16:21 Test Item Value Reference Range Interpretation Comments Calcium Lvl (test code = 74117-4) 10.4 mg/dL 8.4-10.2 H Lab Interpretation (test code = Abnormal 86297-1) [facility] CenterCalcium Qmgmq6860-24-44 16:16:21 Test Item Value Reference Range Interpretation Comments Calcium Lvl (test code = 28088-0) 10.4 mg/dL 8.4-10.2 H Lab Interpretation (test code = Abnormal 15136-2) [facility] CenterCalcium Mjrmo9122-06-24 16:16:21 Test Item Value Reference Range Interpretation Comments Calcium Lvl (test code = 41687-8) 10.4 mg/dL 8.4-10.2 H Lab Interpretation (test code = Abnormal 53204-4) [facility] 16:16:20 Test Item Value Reference Range Interpretation Comments ALT (test code = 1742-6) 34 U/L <=33 H Lab Interpretation (test code = Abnormal 29756-5) [place] 98798023-06-02 16:16:20 Test Item Value Reference Range Interpretation Comments ALT (test code = 1742-6) 34 U/L <=33 H Lab Interpretation (test code = Abnormal 01620-7) [place] 98798023-06-02 16:16:20 Test Item Value Reference Range Interpretation Comments ALT (test code = 1742-6) 34 U/L <=33 H Lab Interpretation (test code = Abnormal 77128-6) [facility] 16:16:20 Test Item Value Reference Range Interpretation Comments ALT (test code = 1742-6) 34 U/L <=33 H Lab Interpretation (test code = Abnormal 17203-2) [place] 98798023-06-02 16:16:20 Test Item Value Reference Range Interpretation Comments ALT (test code = 1742-6) 34 U/L <=33 H Lab Interpretation (test code = Abnormal 91139-3) [facility] CenterB[facility] 16:16:19 Test Item Value Reference Range Interpretation Comments BUN (test code = 3094-0) 12 mg/dL 6- [facility] 16:16:19 Test Item Value Reference Range Interpretation Comments BUN (test code = 3094-0) 12 mg/dL 6- [facility] 16:16:19 Test Item Value Reference Range Interpretation Comments BUN (test code = 3094-0) 12 mg/dL 6- [facility] 16:16:19 Test Item Value Reference Range Interpretation Comments BUN (test code = 3094-0) 12 mg/dL - [facility] CenterBUN20[facility] 16:16:19 Test Item Value Reference Range Interpretation Comments BUN (test code = 3094-0) 12 mg/dL - [facility] CenterGlucose Bimpk3743-77-66 16:16:18 Test Item Value Reference Range Interpretation [...] diabetes Lab Interpretation (test Abnormal code = 01288-8) [facility] CenterGlucose Jusjd9595-18-75 16:16:18 Test Item Value Reference Range Interpretation [...] diabetes Lab Interpretation (test Abnormal code = 64190-7) [facility] CenterGlucose Ilylm0232-79-78 16:16:18 Test Item Value Reference Range Interpretation [...] diabetes Lab Interpretation (test Abnormal code = 39049-3) [facility] CenterGlucose Utozh7242-51-78 16:16:18 Test Item Value Reference Range Interpretation [...] diabetes Lab Interpretation (test Abnormal code = 47285-7) [facility] CenterGlucose Kyvpk2645-54-13 16:16:18 Test Item Value Reference Range Interpretation [...] diabetes Lab Interpretation (test Abnormal code = 82298-6) [facility] CenterLipid dhjdy2967-10-07 16:15:32 Test Item Value Reference Range Interpretation Comments Chol (test code = 246 mg/dL <=199 H ATP III Cl assification 3-3) of Total Choles terol Primary Target of Therapy (in mg/dL):<200 Qiazkqspm144-83 9 Borderline high >=240 High Trig (test code = 201 mg/dL <=149 H ATP III Cl assification 2571-8) of Serum Trigly cerides Primary Target of Therapy (in mg/dL):<150 Wbtqro178-318 Borderline high 200-499 High>=500 Very highNon-fasting triglycerides > 200 mg/dL may be fo llowed up with a fasti ng Lipid Panel. Calculated LDL- C may be falsely decr eased when non-fastin g triglycerides > 200 mg/dL. HDL (test code = 52 mg/dL >=40 2085-9) LDL (test code = 154 mg/dL <=100 H ATP III Cla ssification 85451-6) of LDL Choleste rol Primary Target of Therapy (in mg/dL):<100 Cdxxjdj531-068 Near optimal/above ciohfvv698-767 Borderline high 160-189 High>=190 Very high VLDL (test code = 40 mg/dL 27471-7) Lab Interpretation Abnormal (test code = 95562-1) [facility] CenterLipid rgbyg6969-92-86 16:15:32 Test Item Value Reference Range Interpretation Comments Chol (test code = 246 mg/dL <=199 H ATP III Cl assification 2092-04) of Total Choles terol Primary Target of Therapy (in mg/dL):<200 Fnxppdutp308-94 9 Borderline high >=240 High Trig (test code = 201 mg/dL <=149 H ATP III Cl assification 2571-8) of Serum Trigly cerides Primary Target of Therapy (in mg/dL):<150 Zjjggm257-193 Borderline high 200-499 High>=500 Very highNon-fasting triglycerides > 200 mg/dL may be fo llowed up with a fasti ng Lipid Panel. Calculated LDL- C may be falsely decr eased when non-fastin g triglycerides > 200 mg/dL. HDL (test code = 52 mg/dL >=40 2084-10) LDL (test code = 154 mg/dL <=100 H ATP III Cla ssification 54092-9) of LDL Choleste rol Primary Target of Therapy (in mg/dL):<100 Qpjhqac095-756 Near optimal/above dkubdix474-973 Borderline high 160-189 High>=190 Very high VLDL (test code = 40 mg/dL 19081-0) Lab Interpretation Abnormal (test code = 22424-6) [facility] [place] dezqd6419-08-01 16:15:32 Test Item Value Reference Range Interpretation Comments Chol (test code = 246 mg/dL <=199 H ATP III Cl assification 2092-04) of Total Choles terol Primary Target of Therapy (in mg/dL):<200 Ufjteayto512-43 9 Borderline high >=240 High Trig (test code = 201 mg/dL <=149 H ATP III Cl assification 2571-8) of Serum Trigly cerides Primary Target of Therapy (in mg/dL):<150 Zihiwt356-888 Borderline high 200-499 High>=500 Very highNon-fasting triglycerides > 200 mg/dL may be fo llowed up with a fasti ng Lipid Panel. Calculated LDL- C may be falsely decr eased when non-fastin g triglycerides > 200 mg/dL. HDL (test code = 52 mg/dL >=40 2084-10) LDL (test code = 154 mg/dL <=100 H ATP III Cla ssification 00509-7) of LDL Choleste rol Primary Target of Therapy (in mg/dL):<100 Stsjaor270-567 Near optimal/above -897 Borderline high 160-189 High>=190 Very high VLDL (test code = 40 mg/dL 54477-0) Lab Interpretation Abnormal (test code = 55645-8) [facility] CenterLipid lwqxo6708-07-87 16:15:32 Test Item Value Reference Range Interpretation Comments Chol (test code = 246 mg/dL <=199 H ATP III Cl assification 2092-04) of Total Choles terol Primary Target of Therapy (in mg/dL):<200 Sbiqqflys473-53 9 Borderline high >=240 High Trig (test code = 201 mg/dL <=149 H ATP III Cl assification 2571-8) of Serum Trigly cerides Primary Target of Therapy (in mg/dL):<150 Gyqsux494-778 Borderline high 200-499 High>=500 Very highNon-fasting triglycerides > 200 mg/dL may be fo llowed up with a fasti ng Lipid Panel. Calculated LDL- C may be falsely decr eased when non-fastin g triglycerides > 200 mg/dL. HDL (test code = 52 mg/dL >=40 9) LDL (test code = 154 mg/dL <=100 H ATP III Cla ssification 74732-2) of LDL Choleste rol Primary Target of Therapy (in mg/dL):<100 Shrtcpq809-950 Near optimal/above gukvrut374-683 Borderline high 160-189 High>=190 Very high VLDL (test code = 40 mg/dL 29205-5) Lab Interpretation Abnormal (test code = 53719-2) [facility] CenterLipid qwaxb1284-43-88 16:15:32 Test Item Value Reference Range Interpretation Comments Chol (test code = 246 mg/dL <=199 H ATP III Cl assification 2092-04) of Total Choles terol Primary Target of Therapy (in mg/dL):<200 Pmluaswch701-45 9 Borderline high >=240 High Trig (test code = 201 mg/dL <=149 H ATP III Cl assification 2571-8) of Serum Trigly cerides Primary Target of Therapy (in mg/dL):<150 Ccjbyg173-905 Borderline high 200-499 High>=500 Very highNon-fasting triglycerides > 200 mg/dL may be fo llowed up with a fasti ng Lipid Panel. Calculated LDL- C may be falsely decr eased when non-fastin g triglycerides > 200 mg/dL. HDL (test code = 52 mg/dL >=40 2085-9) LDL (test code = 154 mg/dL <=100 H ATP III Cla ssification 95715-8) of LDL Choleste rol Primary Target of Therapy (in mg/dL):<100 Hpquyyp797-783 Near optimal/above ppggdol143-336 Borderline high 160-189 High>=190 Very high VLDL (test code = 40 mg/dL 16930-5) Lab Interpretation Abnormal (test code = 95426-7) [facility] CenterDifferential2023-06-02 15:39:49 Test Item Value Reference Range Interpretation [...] % 0.0-0.4 H IGRE % c ount 25307-6) includes Metamyelocytes, Myelocytes, and Promyelocytes. Neutrophil Abs (test code 2.65 K/uL 1.70-7.30 = 751-8) Lymphocyte Abs (test code 2.55 K/uL 1.00-4.80 = 731-0) Monocyte Abs (test code = 0.50 K/uL 0.08-0.70 742-7) Eosinophil Abs (test code 0.10 K/uL 0.04-0.40 = 711-2) Basophil Abs (test code = 0.04 K/uL 0.00-0.10 704-7) IG Abs (test code = 0.04 K/uL 0.00-0.04 00485-9) Lab Interpretation (test Abnormal code = 41241-6) [facility]49 Test Item Value Reference Range Interpretation [...] % 0.0-0.4 H IGRE % c ount 80439-3) includes Metamyelocytes, Myelocytes, and Promyelocytes. Neutrophil Abs (test code 2.65 K/uL 1.70-7.30 = 751-8) Lymphocyte Abs (test code 2.55 K/uL 1.00-4.80 = 731-0) Monocyte Abs (test code = 0.50 K/uL 0.08-0.70 742-7) Eosinophil Abs (test code 0.10 K/uL 0.04-0.40 = 711-2) Basophil Abs (test code = 0.04 K/uL 0.00-0.10 704-7) IG Abs (test code = 0.04 K/uL 0.00-0.04 41768-9) Lab Interpretation (test Abnormal code = 60746-2) [facility] IxrtseQlpsxszgmlwf6974-16-98 15:39:49 Test Item Value Reference Range Interpretation [...] % 0.0-0.4 H IGRE % c ount 72631-3) includes Metamyelocytes, Myelocytes, and Promyelocytes. Neutrophil Abs (test code 2.65 K/uL 1.70-7.30 = 751-8) Lymphocyte Abs (test code 2.55 K/uL 1.00-4.80 = 731-0) Monocyte Abs (test code = 0.50 K/uL 0.08-0.70 742-7) Eosinophil Abs (test code 0.10 K/uL 0.04-0.40 = 711-2) Basophil Abs (test code = 0.04 K/uL 0.00-0.10 704-7) IG Abs (test code = 0.04 K/uL 0.00-0.04 18851-2) Lab Interpretation (test Abnormal code = 22604-8) [facility] OygkdxVqhjkzqhmaxd6113-64-61 15:39:49 Test Item Value Reference Range Interpretation [...] % 0.0-0.4 H IGRE % c ount 75329-1) includes Metamyelocytes, Myelocytes, and Promyelocytes. Neutrophil Abs (test code 2.65 K/uL 1.70-7.30 = 751-8) Lymphocyte Abs (test code 2.55 K/uL 1.00-4.80 = 731-0) Monocyte Abs (test code = 0.50 K/uL 0.08-0.70 742-7) Eosinophil Abs (test code 0.10 K/uL 0.04-0.40 = 711-2) Basophil Abs (test code = 0.04 K/uL 0.00-0.10 704-7) IG Abs (test code = 0.04 K/uL 0.00-0.04 88184-2) Lab Interpretation (test Abnormal code = 03822-0) [facility] 15:39:49 Test Item Value Reference Range Interpretation [...] % 0.0-0.4 H IGRE % c ount 85881-4) includes Metamyelocytes, Myelocytes, and Promyelocytes. Neutrophil Abs (test code 2.65 K/uL 1.70-7.30 = 751-8) Lymphocyte Abs (test code 2.55 K/uL 1.00-4.80 = 731-0) Monocyte Abs (test code = 0.50 K/uL 0.08-0.70 742-7) Eosinophil Abs (test code 0.10 K/uL 0.04-0.40 = 711-2) Basophil Abs (test code = 0.04 K/uL 0.00-0.10 704-7) IG Abs (test code = 0.04 K/uL 0.00-0.04 02211-4) Lab Interpretation (test Abnormal code = 28334-4) [facility].EUE9312-02-47 15:39:34 Test Item Value Reference Range Interpretation Comments WBC (test code = 5.9 K/uL 4.0-11.0 6690-2) RBC (test code = 789-8) 4.94 See_Comment [Au tomated message] The system [employer] generated this result transmitted ref erence range: 4.00 - 5 .50 M/uL. The refer ence range was not u sed to interpret this result as normal/abnor mal. Hgb (test code = 718-7) 12.8 See_Comment [Au tomated message] The system [employer] generated this result transmitted ref erence range: [...] See_Comment [Automate d message] 786-4) The system [employer] generated this result transmitted ref erence range: 31.0 - 3 6.0 gm/dL. The refe rence range was not u sed to interpret this result as normal/abnor mal. RDW-SD (test code = 38.0 fL 35.1-46.3 32868-2) RDW-CV (test code = 13.3 % 12.0-15.5 788-0) Platelet count (test 361 K/uL 140-440 code = 777-3) MPV (test code = 9.6 fL 4.0-10.4 67103-2) INRBC (test code = 0.0 % <=0.0 The INRBC (instrument 59983-5) NRBC) value ref lects the enumeration of nucleated red b lood cells contained in a 200uL sampleof whole blood analyzed by the instrument. Thi s value maydiffer from the NRBC value repo rted in a manual differential,wh ich is based on a 100 cell differential. Lab Interpretation Abnormal (test code = 51440-0) [facility] [place].[id number] 15:39:34 Test Item Value Reference Range Interpretation Comments WBC (test code = 5.9 K/uL 4.0-11.0 6690-2) RBC (test code = 789-8) 4.94 See_Comment [Au tomated message] The system [employer] generated this result transmitted ref erence range: 4.00 - 5 .50 M/uL. The refer ence range was not u sed to interpret this result as normal/abnor mal. Hgb (test code = 718-7) 12.8 See_Comment [Au tomated message] The system [employer] generated this result transmitted ref erence range: [...] See_Comment [Automate d message] 786-4) The system [employer] generated this result transmitted ref erence range: 31.0 - 3 6.0 gm/dL. The refe rence range was not u sed to interpret this result as normal/abnor mal. RDW-SD (test code = 38.0 fL 35.1-46.3 15280-2) RDW-CV (test code = 13.3 % 12.0-15.5 788-0) Platelet count (test 361 K/uL 140-440 code = 777-3) MPV (test code = 9.6 fL 4.0-10.4 57418-2) INRBC (test code = 0.0 % <=0.0 The INRBC (instrument 00377-0) NRBC) value ref lects the enumeration of nucleated red b lood cells contained in a 200uL sampleof whole blood analyzed by the instrument. Thi s value maydiffer from the NRBC value repo rted in a manual differential,wh ich is based on a 100 cell differential. Lab Interpretation Abnormal (test code = 63158-2) [facility] [place].[id number] 15:39:34 Test Item Value Reference Range Interpretation Comments WBC (test code = 5.9 K/uL 4.0-11.0 6690-2) RBC (test code = 789-8) 4.94 See_Comment [Au tomated message] The system [employer] generated this result transmitted ref erence range: 4.00 - 5 .50 M/uL. The refer ence range was not u sed to interpret this result as normal/abnor mal. Hgb (test code = 718-7) 12.8 See_Comment [Au tomated message] The system [employer] generated this result transmitted ref erence range: [...] See_Comment [Automate d message] 786-4) The system [employer] generated this result transmitted ref erence range: 31.0 - 3 6.0 gm/dL. The refe rence range was not u sed to interpret this result as normal/abnor mal. RDW-SD (test code = 38.0 fL 35.1-46.3 02971-9) RDW-CV (test code = 13.3 % 12.0-15.5 788-0) Platelet count (test 361 K/uL 140-440 code = 777-3) MPV (test code = 9.6 fL 4.0-10.4 09301-5) INRBC (test code = 0.0 % <=0.0 The INRBC (instrument 93610-8) NRBC) value ref lects the enumeration of nucleated red b lood cells contained in a 200uL sampleof whole blood analyzed by the instrument. Thi s value maydiffer from the NRBC value repo rted in a manual differential,wh ich is based on a 100 cell differential. Lab Interpretation Abnormal (test code = 86763-6) [facility] [place].[id number] 15:39:34 Test Item Value Reference Range Interpretation Comments WBC (test code = 5.9 K/uL 4.0-11.0 6690-2) RBC (test code = 789-8) 4.94 See_Comment [Au tomated message] The system [employer] generated this result transmitted ref erence range: 4.00 - 5 .50 M/uL. The refer ence range was not u sed to interpret this result as normal/abnor mal. Hgb (test code = 718-7) 12.8 See_Comment [Au tomated message] The system [employer] generated this result transmitted ref erence range: [...] See_Comment [Automate d message] 786-4) The system [employer] generated this result transmitted ref erence range: 31.0 - 3 6.0 gm/dL. The refe rence range was not u sed to interpret this result as normal/abnor mal. RDW-SD (test code = 38.0 fL 35.1-46.3 25093-2) RDW-CV (test code = 13.3 % 12.0-15.5 788-0) Platelet count (test 361 K/uL 140-440 code = 777-3) MPV (test code = 9.6 fL 4.0-10.4 58870-3) INRBC (test code = 0.0 % <=0.0 The INRBC (instrument 69464-7) NRBC) value ref lects the enumeration of nucleated red b lood cells contained in a 200uL sampleof whole blood analyzed by the instrument. Thi s value maydiffer from the NRBC value repo rted in a manual differential,wh ich is based on a 100 cell differential. Lab Interpretation Abnormal (test code = 36113-6) [facility] [place].[id number] 15:39:34 Test Item Value Reference Range Interpretation Comments WBC (test code = 5.9 K/uL 4.0-11.0 6690-2) RBC (test code = 789-8) 4.94 See_Comment [Au tomated message] The system [employer] generated this result transmitted ref erence range: 4.00 - 5 .50 M/uL. The refer ence range was not u sed to interpret this result as normal/abnor mal. Hgb (test code = 718-7) 12.8 See_Comment [Au tomated message] The system [employer] generated this result transmitted ref erence range: [...] See_Comment [Automate d message] 786-4) The system [employer] generated this result transmitted ref erence range: 31.0 - 3 6.0 gm/dL. The refe rence range was not u sed to interpret this result as normal/abnor mal. RDW-SD (test code = 38.0 fL 35.1-46.3 93153-7) RDW-CV (test code = 13.3 % 12.0-15.5 788-0) Platelet count (test 361 K/uL 140-440 code = 777-3) MPV (test code = 9.6 fL 4.0-10.4 59481-6) INRBC (test code = 0.0 % <=0.0 The INRBC (instrument 62011-0) NRBC) value ref lects the enumeration of nucleated red b lood cells contained in a 200uL sampleof whole blood analyzed by the instrument. Thi s value maydiffer from the NRBC value repo rted in a manual differential,wh ich is based on a 100 cell differential. Lab Interpretation Abnormal (test code = 38859-3) [facility] [place], [id number] 14:14:40 SPECIMEN NUMBER: [id number] CULTURE, URINE SPECIMEN NUMBER: [id number] SPECIMEN COMMENT: URINE SOURCE:URINE REPORT STATUS: FINAL ISOLATE NUMBER 1: ORGANISM: 06/14/2022 50-100,000 CFU/ML GRAM NEGATIVE BACILLI IDENTIFICATION: 06/15/2022 KLEBSIELLA PNEUMONIAE ISOLATE NUMBER 2: IDENTIFICATION: 06/14/2022 >100,000 CFU/ML STAPHYLOCOCCUS SAPROPHYTICUS ADDITIONAL OBSERVATIONS: ROUTINE SUSCEPTIBILITY TESTING OF S.SAPROPHYTICUS IS NOT ADVISED,BECAUSE INFECTIONS RESPOND TO CONCENTRATIONS ACHIEVED IN URINE OFANTIMICROBIAL AGENTS COMMONLY USED TO TREAT ACUTE, UNCOMPLICATED URINARY TRACT INFECTIONS (EG, NITROFURANTOIN, TRIMETHOPRIM+/-SULFAMETHOXAZOLE,OR A FLUORQUINOLONE). K. PNEUMONIAE AMOXICILLIN/CA SENSITIVE <=8/4AMPICILLIN RESISTANT >16CEFAZOLIN SENSITIVE 4CEFTRIAXONE SENSITIVE <=1CIPROFLOXACIN SENSITIVE <=1LEVOFLOXACIN SENSITIVE <=2NITROFURANTOIN SENSITIVE <=32PIP/TAZOBAC SENSITIVE <=16TETRACYCLINE SENSITIVE <=4TOBRAMYCIN SENSITIVE <=4TRIMETH/SULFA RESISTANT >238 NOTE: NUMBERS DISPLAYED REPRESENT MINIMUM INHIBITORY CONCENTRATION (IRVIN) WHICH IS EXPRESSED IN MCG/ML. [facility] has important pathology staff changes effective 04/24/2022. New pathology staff will provide uninterrupted, excellent patient care and clinical consultation. See URL: [email or web address]. UNLESS OTHERWISE INDICATED, ALL TESTING PERFORMED AT [facility] [address] [place] [address] NEON TUBE BENDER: ORTIZ MARES M.D. CLIA NUMBER [id number] [facility] [place]. [id number] Culture w/[id number] 22:56:44 Test Item Value Reference Range Interpretation Comments Final Report (test No acid fast bacteria code = 8488) isolated at 8 weeks. Path Review - AFB Culture yield may be (test code = 8477) affected by sample quality, prior treatment, and transportation conditions....The results have been reviewed and electronically signed by Pathologist:Bal Mckeon MD, PhD #[id number] Acid Fast Stain No Acid Fast Bacilli seen Truant (test code = in direct smear 40369-5) CHANDRAKANT (test code = Cultures are held 8 weeks CHANDRAKANT) before finalization. [facility] [place] Culture w/[id number] 22:56:44 Test Item Value Reference Range Interpretation Comments Final Report (test No acid fast bacteria code = 8488) isolated at 8 weeks. Path Review - AFB Culture yield may be (test code = 8477) affected by sample quality, prior treatment, and transportation conditions....The results have been reviewed and electronically signed by Pathologist:Bal Mckeon MD, PhD #[id number] Acid Fast Stain No Acid Fast Bacilli seen Truant (test code = in direct smear 04061-4) CHANDRAKANT (test code = Cultures are held 8 weeks CHANDRAKANT) before finalization. [facility] w/[id number] 22:56:44 Test Item Value Reference Range Interpretation Comments Final Report (test No acid fast bacteria code = 8488) isolated at 8 weeks. Path Review - AFB Culture yield may be (test code = 8477) affected by sample quality, prior treatment, and transportation conditions....The results have been reviewed and electronically signed by Pathologist:Bal Mckeon MD, PhD #[id number] Acid Fast Stain No Acid Fast Bacilli seen Truant (test code = in direct smear 92788-4) CHANDRAKANT (test code = Cultures are held 8 weeks CHANDRAKANT) before finalization. [facility] w/[id number] 22:56:44 Test Item Value Reference Range Interpretation Comments Final Report (test No acid fast bacteria code = 8488) isolated at 8 weeks. Path Review - AFB Culture yield may be (test code = 8477) affected by sample quality, prior treatment, and transportation conditions....The results have been reviewed and electronically signed by Pathologist:Bal Mckeon MD, PhD #[id number] Acid Fast Stain No Acid Fast Bacilli seen Truant (test code = in direct smear 15759-4) CHANDRAKANT (test code = Cultures are held 8 weeks CHANDRAKANT) before finalization. [facility]/[id number] 22:56:44 Test Item Value Reference Range Interpretation Comments Final Report (test No acid fast bacteria code = 8488) isolated at 8 weeks. Path Review - AFB Culture yield may be (test code = 8477) affected by sample quality, prior treatment, and transportation conditions....The results have been reviewed and electronically signed by Pathologist:Bal Mckeon MD, PhD #[id number] Acid Fast Stain No Acid Fast Bacilli seen Truant (test code = in direct smear 38015-6) CHANDRAKANT (test code = Cultures are held 8 weeks CHANDRAKANT) before finalization. [facility] w/[id number] 22:56:44 Test Item Value Reference Range Interpretation Comments Final Report (test No acid fast bacteria code = 8488) isolated at 8 weeks. Path Review - AFB Culture yield may be (test code = 8477) affected by sample quality, prior treatment, and transportation conditions....The results have been reviewed and electronically signed by Pathologist:Bal Mckeon MD, PhD #[id number] Acid Fast Stain No Acid Fast Bacilli seen Truant (test code = in direct smear 63065-5) CHANDRAKANT (test code = Cultures are held 8 weeks CHANDRAKANT) before finalization. [facility] w/[id number] 22:56:44 Test Item Value Reference Range Interpretation Comments Final Report (test No acid fast bacteria code = 8488) isolated at 8 weeks. Path Review - AFB Culture yield may be (test code = 8477) affected by sample quality, prior treatment, and transportation conditions....The results have been reviewed and electronically signed by Pathologist:Bal Mckeon MD, PhD #[id number] Acid Fast Stain No Acid Fast Bacilli seen Truant (test code = in direct smear 53934-5) CHANDRAKANT (test code = Cultures are held 8 weeks CHANDRAKANT) before finalization. [facility] w/[id number] 22:56:44 Test Item Value Reference Range Interpretation Comments Final Report (test No acid fast bacteria code = 8488) isolated at 8 weeks. Path Review - AFB Culture yield may be (test code = 8477) affected by sample quality, prior treatment, and transportation conditions....The results have been reviewed and electronically signed by Pathologist:Bal Mckeon MD, PhD #[id number] Acid Fast Stain No Acid Fast Bacilli seen Truant (test code = in direct smear 75182-3) CHANDRAKANT (test code = Cultures are held 8 weeks CHANDRAKANT) before finalization. [facility] w/[id number] 22:56:44 Test Item Value Reference Range Interpretation Comments Final Report (test No acid fast bacteria code = 8488) isolated at 8 weeks. Path Review - AFB Culture yield may be (test code = 8477) affected by sample quality, prior treatment, and transportation conditions....The results have been reviewed and electronically signed by Pathologist:Bal Mckeon MD, PhD #[id number] Acid Fast Stain No Acid Fast Bacilli seen Truant (test code = in direct smear 14987-9) CHANDRAKANT (test code = Cultures are held 8 weeks CHANDRAKANT) before finalization. [facility] w/[id number] 22:56:44 Test Item Value Reference Range Interpretation Comments Final Report (test No acid fast bacteria code = 8488) isolated at 8 weeks. Path Review - AFB Culture yield may be (test code = 8477) affected by sample quality, prior treatment, and transportation conditions....The results have been reviewed and electronically signed by Pathologist:Bal Mckeon MD, PhD #[id number] Acid Fast Stain No Acid Fast Bacilli seen Truant (test code = in direct smear 89424-5) CHANDRAKANT (test code = Cultures are held 8 weeks CHANDRAKANT) before finalization. [facility] w/[id number] 22:56:44 Test Item Value Reference Range Interpretation Comments Final Report (test No acid fast bacteria code = 8488) isolated at 8 weeks. Path Review - AFB Culture yield may be (test code = 8477) affected by sample quality, prior treatment, and transportation conditions....The results have been reviewed and electronically signed by Pathologist:Bal Mckeon MD, PhD #[id number] Acid Fast Stain No Acid Fast Bacilli seen Truant (test code = in direct smear 83277-1) CHANDRAKANT (test code = Cultures are held 8 weeks CHANDRAKANT) before finalization. [facility] Center[facility], [id number] 13:19:05 SPECIMEN NUMBER: [id number] CULTURE, URINE SPECIMEN NUMBER: [id number] SPECIMEN COMMENT: URINE SOURCE:URINE REPORT STATUS: FINAL ISOLATE NUMBER 1: ORGANISM: 05/08/2022 >100,000 CFU/ML GRAM NEGATIVE BACILLI IDENTIFICATION: 05/09/2022 PROTEUS MIRABILIS P. MIRABILIS AMOXICILLIN/CA SENSITIVE <=8/4AMPICILLIN RESISTANT >16CEFAZOLIN INTERMED 16CEFTRIAXONE SENSITIVE <=1CIPROFLOXACIN SENSITIVE <=1LEVOFLOXACIN SENSITIVE <=2NITROFURANTOIN RESISTANT >64PIP/TAZOBAC SENSITIVE <=16TETRACYCLINE RESISTANT >8TOBRAMYCIN SENSITIVE <=4TRIMETH/SULFA RESISTANT > NOTE: NUMBERS DISPLAYED REPRESENT MINIMUM INHIBITORY CONCENTRATION (IRVIN) WHICH IS EXPRESSED IN MCG/ML.VAGINAL PATHOGENS DNA [id number] 14:57:29 Test Item Value Reference Range Interpretation [...] and Trichomonas vag inalis nucleic acid. * [facility] has important patho logy staff changes effecti ve 04/24/2022. New pathology staff will provide uninterrupted, excellent patient care an d clinical consultation. S ee URL: [email or web address]. UNLESS OTHE RWISE INDICATED, [facility] [address] [place] [address] LABORATOR Y DIRECTOR: ORTIZ FOX M.D. [place] NUMBER [id number] CAP ACCREDITATION N O. [id number] Fungus [id number] 22:14:47 Test Item Value Reference Range Interpretation Comments Final Report (test No Fungi isolated. code = 8488) Path Review - Culture yield may be Fungus (test code = affected by sample 8479) quality, prior treatment, and transportation conditions. The results have been reviewed and electronically signed by Pathologist:Abiodun Vázquez MD, PhD #[id number] CHANDRAKANT (test code = Cultures are held for 4 CHANDRAKANT) weeks before finalization. [facility] CenterF[facility] [id number] 22:14:47 Test Item Value Reference Range Interpretation Comments Final Report (test No Fungi isolated. code = 8488) Path Review - Culture yield may be Fungus (test code = affected by sample 8479) quality, prior treatment, and transportation conditions. The results have been reviewed and electronically signed by Pathologist:Abiodun Vázquez MD, PhD #[id number] CHANDRAKANT (test code = Cultures are held for 4 CHANDRAKANT) weeks before finalization. [facility] [id number] 22:14:47 Test Item Value Reference Range Interpretation Comments Final Report (test No Fungi isolated. code = 8488) Path Review - Culture yield may be Fungus (test code = affected by sample 8479) quality, prior treatment, and transportation conditions. The results have been reviewed and electronically signed by Pathologist:Abiodun Vázquez MD, PhD #[id number] CHANDRAKANT (test code = Cultures are held for 4 CHANDRAKANT) weeks before finalization. [facility] [id number] 22:14:47 Test Item Value Reference Range Interpretation Comments Final Report (test No Fungi isolated. code = 8488) Path Review - Culture yield may be Fungus (test code = affected by sample 8479) quality, prior treatment, and transportation conditions. The results have been reviewed and electronically signed by Pathologist:Abiodun Vázquez MD, PhD #[id number] CHANDRAKANT (test code = Cultures are held for 4 CHANDRAKANT) weeks before finalization. [facility] [id number] 22:14:47 Test Item Value Reference Range Interpretation Comments Final Report (test No Fungi isolated. code = 8488) Path Review - Culture yield may be Fungus (test code = affected by sample 8479) quality, prior treatment, and transportation conditions. The results have been reviewed and electronically signed by Pathologist:Abiodun Vázquez MD, PhD #[id number] CHANDRKAANT (test code = Cultures are held for 4 CHANDRAKANT) weeks before finalization. [facility] [id number] 22:14:47 Test Item Value Reference Range Interpretation Comments Final Report (test No Fungi isolated. code = 8488) Path Review - Culture yield may be Fungus (test code = affected by sample 8479) quality, prior treatment, and transportation conditions. The results have been reviewed and electronically signed by Pathologist:Abiodun Vázquez MD, PhD #[id number] CHANDRAKANT (test code = Cultures are held for 4 CHANDRAKANT) weeks before finalization. [facility]2023-03-01 22:14:47 Test Item Value Reference Range Interpretation Comments Final Report (test No Fungi isolated. code = 8488) Path Review - Culture yield may be Fungus (test code = affected by sample 8479) quality, prior treatment, and transportation conditions. The results have been reviewed and electronically signed by Pathologist:Abiodun Vázquez MD, PhD #[id number] CHANDRAKANT (test code = Cultures are held for 4 CHANDRAKANT) weeks before finalization. [facility] [id number] 22:14:47 Test Item Value Reference Range Interpretation Comments Final Report (test No Fungi isolated. code = 8488) Path Review - Culture yield may be Fungus (test code = affected by sample 8479) quality, prior treatment, and transportation conditions. The results have been reviewed and electronically signed by Pathologist:Abiodun Vázquez MD, PhD #[id number] CHANDRAKANT (test code = Cultures are held for 4 CHNADRAKANT) weeks before finalization. [facility]2023-03-01 22:14:47 Test Item Value Reference Range Interpretation Comments Final Report (test No Fungi isolated. code = 8488) Path Review - Culture yield may be Fungus (test code = affected by sample 8479) quality, prior treatment, and transportation conditions. The results have been reviewed and electronically signed by Pathologist:Abiodun Vázquez MD, PhD #[id number] CHANDRAKANT (test code = Cultures are held for 4 CHANDRAKANT) weeks before finalization. [facility]2023-03-01 22:14:47 Test Item Value Reference Range Interpretation Comments Final Report (test No Fungi isolated. code = 8488) Path Review - Culture yield may be Fungus (test code = affected by sample 8479) quality, prior treatment, and transportation conditions. The results have been reviewed and electronically signed by Pathologist:Abiodun Vázquez MD, PhD #[id number] CHANDRAKANT (test code = Cultures are held for 4 CHANDRAKANT) weeks before finalization. [facility]2023-03-01 22:14:47 Test Item Value Reference Range Interpretation Comments Final Report (test No Fungi isolated. code = 8488) Path Review - Culture yield may be Fungus (test code = affected by sample 8479) quality, prior treatment, and transportation conditions. The results have been reviewed and electronically signed by Pathologist:Abiodun Vázquez MD, PhD #[id number] CHANDRAKANT (test code = Cultures are held for 4 CHANDRAKANT) weeks before finalization. [facility] [id number] 22:14:47 Test Item Value Reference Range Interpretation Comments Final Report (test No Fungi isolated. code = 8488) Path Review - Culture yield may be Fungus (test code = affected by sample 8479) quality, prior treatment, and transportation conditions. The results have been reviewed and electronically signed by Pathologist:Abiodun Vázquez MD, PhD #[id number] CHANDRAKANT (test code = Cultures are held for 4 CHANDRAKANT) weeks before finalization. [facility] Center[facility]ion[facility] [id number] 22:42:26 Test Item Value Reference Range Interpretation Comments Final Report (test No Legionella species code = 8488) isolated Path Review - The results have been Legionella (test code reviewed and = 8480) electronically signed by Pathologist:Abiodun Vázquez MD, PhD #[id number] [facility] Center[facility]ionec[facility] [id number] 22:42:26 Test Item Value Reference Range Interpretation Comments Final Report (test No Legionella species code = 8488) isolated Path Review - The results have been Legionella (test code reviewed and = 8480) electronically signed by Pathologist:Abiodun Vázquez MD, PhD #[id number] [facility] CenterLegionell [id number] 22:42:26 Test Item Value Reference Range Interpretation Comments Final Report (test No Legionella species code = 8488) isolated Path Review - The results have been Legionella (test code reviewed and = 8480) electronically signed by Pathologist:Abiodun Vázquez MD, PhD #[id number] [facility] Center[facility] [id number] 22:42:26 Test Item Value Reference Range Interpretation Comments Final Report (test No Legionella species code = 8488) isolated Path Review - The results have been Legionella (test code reviewed and = 8480) electronically signed by Pathologist:Abiodun Vázquez MD, PhD #[id number] [facility] Center[facility]ec[facility] [id number] 22:42:26 Test Item Value Reference Range Interpretation Comments Final Report (test No Legionella species code = 8488) isolated Path Review - The results have been Legionella (test code reviewed and = 8480) electronically signed by Pathologist:Abiodun Vázquez MD, PhD #[id number] [facility]2023-02-07 22:42:26 Test Item Value Reference Range Interpretation Comments Final Report (test No Legionella species code = 8488) isolated Path Review - The results have been Legionella (test code reviewed and = 8480) electronically signed by Pathologist:Abiodun Vázquez MD, PhD #[id number] [facility]2023-02-07 22:42:26 Test Item Value Reference Range Interpretation Comments Final Report (test No Legionella species code = 8488) isolated Path Review - The results have been Legionella (test code reviewed and = 8480) electronically signed by Pathologist:Abiodun Vázquez MD, PhD #[id number] [facility]2023-02-07 22:42:26 Test Item Value Reference Range Interpretation Comments Final Report (test No Legionella species code = 8488) isolated Path Review - The results have been Legionella (test code reviewed and = 8480) electronically signed by Pathologist:Abiodun Vázquez MD, PhD #[id number] [facility] [id number] 22:42:26 Test Item Value Reference Range Interpretation Comments Final Report (test No Legionella species code = 8488) isolated Path Review - The results have been Legionella (test code reviewed and = 8480) electronically signed by Pathologist:Abiodun Vázquez MD, PhD #[id number] [facility]2023-02-07 22:42:26 Test Item Value Reference Range Interpretation Comments Final Report (test No Legionella species code = 8488) isolated Path Review - The results have been Legionella (test code reviewed and = 8480) electronically signed by Pathologist:Abiodun Vázquez MD, PhD #[id number] [facility]2023-02-07 22:42:26 Test Item Value Reference Range Interpretation Comments Final Report (test No Legionella species code = 8488) isolated Path Review - The results have been Legionella (test code reviewed and = 8480) electronically signed by Pathologist:Abiodun Vázquez MD, PhD #[id number] [facility] Center[facility] [id number] 22:42:26 Test Item Value Reference Range Interpretation Comments Final Report (test No Legionella species code = 8488) isolated Path Review - The results have been Legionella (test code reviewed and = 8480) electronically signed by Pathologist:Abiodun Vázquez MD, PhD #[id number] [facility] 14:51:34 Test Item Value Reference Range Interpretation Comments Neutrophil % (test See Note 42.0-66.0 Clotted s ampleNotified code = 770-8) Nurse Adeolatcy a t 04/02/2022 8:47:15 AM CSTN jerod will recollectFSCorr ected from 54.0 % on 04/02 8:51:32 HISTORIC SITE ADMINISTRATOR by Randa Quintanilla. Lymphocyte % (test See Note 24.0-44.0 Clotted s ampleNotified code = 736-9) Nurse Adeolatcy a t 04/02/2022 8:47:15 AM CSTN jerod will recollectFSCorr ected from 37.5 % on 04/02 8:51:32 HISTORIC SITE ADMINISTRATOR by Randa Quintanilla. Monocyte % (test See Note 2.0-7.0 Clotted oralia pleNotified code = 5905-5) Nurse Adeolatcy at 04/02/2022 8:47:15 AM CSTN jessicae will recollectFSCorr ected from 5.0 % on 8:51:32 HISTORIC SITE ADMINISTRATOR by Randa Quintanilla. Eosinophil % (test See Note 1.0-4.0 Clotted s ampleNotified code = 713-8) Nurse Bettcy a t 04/02/2022 8:47:15 AM CSTN urse will recollectFSCorr ected from 0.8 % [LOW] on 04/02/22 8:51:32 HISTORIC SITE ADMINISTRATOR by Randa Lorenz. Basophil % (test See Note 0.0-1.0 Clotted oralia pleNotified code = 706-2) Nurse Bettcy a t 04/02/2022 8:47:15 AM CSTN urse will recollectFSCorr ected from 0.2 % on 8:51:32 HISTORIC SITE ADMINISTRATOR by Randa Quintanilla. IGRE % (test code See Note 0.0-0.4 Clotted sa mpleNotified = 78098-4) Nurse Adeolatcsavanah at 04/02/2022 8:47:15 AM CSTCordelia newsome will recollectFSIGRE % count includes Metamy elocytes, Myelocytes, and Promyelocytes.I GRE % count includes Metamy elocytes, Myelocytes, and Promyelocytes.C orrected from 2.5 % [HI] on 04/02/22 8:51:32 HISTORIC SITE ADMINISTRATOR by Randa Lorenz. Neutrophil Abs See Note 1.70-7.30 Clotted sampl eNotified (test code = Nurse Bettcy at 04/02/2022 751-8) 8:47:15 AM CSTCordelia newsome will recollectFSCorr ected from 6.86 K/uL on 8:51:32 HISTORIC SITE ADMINISTRATOR by Randa Lorenz. Lymphocyte Abs See Note 1.00-4.80 Clotted sampl eNotified (test code = Nurse Bettcy at 04/02/2022 731-0) 8:47:15 AM CSTCordelia newsome will recollectFSCorr ected from 4.77 K/uL on 8:51:32 HISTORIC SITE ADMINISTRATOR by Randa Lorenz. Monocyte Abs (test See Note 0.08-0.70 Clotted s ampleNotified code = 742-7) Nurse Adeolatcsavanah a t 04/02/2022 8:47:15 AM CSTCordelia newsome will recollectFSCorr ected from 0.63 K/uL on 8:51:32 HISTORIC SITE ADMINISTRATOR by Randa Lorenz. Eosinophil Abs See Note 0.04-0.40 Clotted sampl eNotified (test code = Nurse Bettcy at 04/02/2022 711-2) 8:47:15 AM CSTCordelia newsome will recollectFSCorr ected from 0.10 K/uL on 8:51:32 HISTORIC SITE ADMINISTRATOR by Randa Lorenz. Basophil Abs (test See Note 0.00-0.10 Clotted s ampleNotified code = 704-7) Nurse Bettcy a t 04/02/2022 8:47:15 AM CSTN jerod will recollectFSCorr ected from 0.03 K/uL on 8:51:32 HISTORIC SITE ADMINISTRATOR by Randa Lorenz. IG Abs (test code See Note 0.00-0.04 Clotted sa mpleNotified = 71490-9) Nurse Bettcy at 04/02/2022 8:47:15 AM CSTN jerod will recollectFSCorr ected from 0.32 K/uL [HI] on 04/02/22 8:51:32 HISTORIC SITE ADMINISTRATOR by Randa Lorenz. [facility] 14:51:34 Test Item Value Reference Range Interpretation Comments Neutrophil % (test See Note 42.0-66.0 Clotted s ampleNotified code = 770-8) Nurse Bettcy a t 04/02/2022 8:47:15 AM CSTN jerod will recollectFSCorr ected from 54.0 % on 04/02 8:51:32 HISTORIC SITE ADMINISTRATOR by Randa Quintanilla. Lymphocyte % (test See Note 24.0-44.0 Clotted s ampleNotified code = 736-9) Nurse Bettcy a t 04/02/2022 8:47:15 AM CSTN jerod will recollectFSCorr ected from 37.5 % on 04/02 8:51:32 HISTORIC SITE ADMINISTRATOR by Randa Quintanilla. Monocyte % (test See Note 2.0-7.0 Clotted oralia pleNotified code = 5905-5) Nurse Bettcy at 04/02/2022 8:47:15 AM CSTN jerod will recollectFSCorr ected from 5.0 % on 8:51:32 HISTORIC SITE ADMINISTRATOR by Randa Quintanilla. Eosinophil % (test See Note 1.0-4.0 Clotted s ampleNotified code = 713-8) Nurse Bettcy a t 04/02/2022 8:47:15 AM CSTN jerod will recollectFSCorr ected from 0.8 % [LOW] on 04/02/22 8:51:32 HISTORIC SITE ADMINISTRATOR by Randa Lorenz. Basophil % (test See Note 0.0-1.0 Clotted oralia pleNotified code = 706-2) Nurse Adeolatcsavanah a t 04/02/2022 8:47:15 AM CSTN jerod will recollectFSCorr ected from 0.2 % on 8:51:32 HISTORIC SITE ADMINISTRATOR by Randa Quintanilla. IGRE % (test code See Note 0.0-0.4 Clotted sa mpleNotified = 97542-1) Nurse Bettcy at 04/02/2022 8:47:15 AM CSTN jerod will recollectFSIGRE % count includes Metamy elocytes, Myelocytes, and Promyelocytes.I GRE % count includes Metamy elocytes, Myelocytes, and Promyelocytes.C orrected from 2.5 % [HI] on 04/02/22 8:51:32 HISTORIC SITE ADMINISTRATOR by Randa Lorenz. Neutrophil Abs See Note 1.70-7.30 Clotted sampl eNotified (test code = Nurse Adeolatcsavanah at 04/02/2022 751-8) 8:47:15 AM CSTCordelia newsome will recollectFSCorr ected from 6.86 K/uL on 8:51:32 HISTORIC SITE ADMINISTRATOR by Randa Lorenz. Lymphocyte Abs See Note 1.00-4.80 Clotted sampl eNotified (test code = Nurse Adeolatcsavanah at 04/02/2022 731-0) 8:47:15 AM CSTCordelia newsome will recollectFSCorr ected from 4.77 K/uL on 8:51:32 HISTORIC SITE ADMINISTRATOR by Randa Lorenz. Monocyte Abs (test See Note 0.08-0.70 Clotted s ampleNotified code = 742-7) Nurse Adeolatcsavanah jorge t 04/02/2022 8:47:15 AM CSTCordelia newsome will recollectFSCorr ected from 0.63 K/uL on 8:51:32 HISTORIC SITE ADMINISTRATOR by Randa Lorenz. Eosinophil Abs See Note 0.04-0.40 Clotted sampl eNotified (test code = Nurse Bettcy at 04/02/2022 711-2) 8:47:15 AM CSTN jerod will recollectFSCorr ected from 0.10 K/uL on 8:51:32 HISTORIC SITE ADMINISTRATOR by Randa Lorenz. Basophil Abs (test See Note 0.00-0.10 Clotted s ampleNotified code = 704-7) Nurse Bettcy a t 04/02/2022 8:47:15 AM CSTN jerod will recollectFSCorr ected from 0.03 K/uL on 8:51:32 HISTORIC SITE ADMINISTRATOR by Randa Lorenz. IG Abs (test code See Note 0.00-0.04 Clotted sa mpleNotified = 98070-0) Nurse Bettcy at 04/02/2022 8:47:15 AM CSTCordelia newsome will recollectFSCorr ected from 0.32 K/uL [HI] on 04/02/22 8:51:32 HISTORIC SITE ADMINISTRATOR by Randa Lorenz. [facility] [id number] 14:51:34 Test Item Value Reference Range Interpretation Comments Neutrophil % (test See Note 42.0-66.0 Clotted s ampleNotified code = 770-8) Nurse Bettcy a t 04/02/2022 8:47:15 AM CSTCordelia newosme will recollectFSCorr ected from 54.0 % on 04/02 8:51:32 HISTORIC SITE ADMINISTRATOR by Randa Quintanilla. Lymphocyte % (test See Note 24.0-44.0 Clotted s ampleNotified code = 736-9) Nurse Bettcy a t 04/02/2022 8:47:15 AM CSTN jerod will recollectFSCorr ected from 37.5 % on 04/02 8:51:32 HISTORIC SITE ADMINISTRATOR by Randa Quintanilla. Monocyte % (test See Note 2.0-7.0 Clotted oralia pleNotified code = 5905-5) Nurse Bettcy at 04/02/2022 8:47:15 AM CSTN jerod will recollectFSCorr ected from 5.0 % on 8:51:32 HISTORIC SITE ADMINISTRATOR by Randa Quintanilla. Eosinophil % (test See Note 1.0-4.0 Clotted s ampleNotified code = 713-8) Nurse Troy jorge t 04/02/2022 8:47:15 AM CSTN jerod will recollectFSCorr ected from 0.8 % [LOW] on 04/02/22 8:51:32 HISTORIC SITE ADMINISTRATOR by Randa Lorenz. Basophil % (test See Note 0.0-1.0 Clotted oralia pleNotified code = 706-2) Nurse Troy jorge t 04/02/2022 8:47:15 AM CSTN jerod will recollectFSCorr ected from 0.2 % on 8:51:32 HISTORIC SITE ADMINISTRATOR by Randa Quintanilla. IGRE % (test code See Note 0.0-0.4 Clotted sa mpleNotified = 25632-8) Nurse Troy at 04/02/2022 8:47:15 AM CSTN jerod will recollectFSIGRE % count includes Metamy elocytes, Myelocytes, and Promyelocytes.I GRE % count includes Metamy elocytes, Myelocytes, and Promyelocytes.C orrected from 2.5 % [HI] on 04/02/22 8:51:32 HISTORIC SITE ADMINISTRATOR by Randa Lorenz. Neutrophil Abs See Note 1.70-7.30 Clotted sampl eNotified (test code = Nurse Troy at 04/02/2022 751-8) 8:47:15 AM CSTN jerod will recollectFSCorr ected from 6.86 K/uL on 8:51:32 HISTORIC SITE ADMINISTRATOR by Randa Lorenz. Lymphocyte Abs See Note 1.00-4.80 Clotted sampl eNotified (test code = Nurse Troy at 04/02/2022 731-0) 8:47:15 AM CSTN jerod will recollectFSCorr ected from 4.77 K/uL on 8:51:32 HISTORIC SITE ADMINISTRATOR by Randa Lorenz. Monocyte Abs (test See Note 0.08-0.70 Clotted s ampleNotified code = 742-7) Nurse Troy jorge t 04/02/2022 8:47:15 AM CSTCordelia newsome will recollectFSCorr ected from 0.63 K/uL on 8:51:32 HISTORIC SITE ADMINISTRATOR by Randa Lorenz. Eosinophil Abs See Note 0.04-0.40 Clotted sampl eNotified (test code = Nurse Adeolatcsavanah at 04/02/2022 711-2) 8:47:15 AM CSTN jerod will recollectFSCorr ected from 0.10 K/uL on 8:51:32 HISTORIC SITE ADMINISTRATOR by Randa Lorenz. Basophil Abs (test See Note 0.00-0.10 Clotted s ampleNotified code = 704-7) Nurse Troy a t 04/02/2022 8:47:15 AM CSTCordelia newsome will recollectFSCorr ected from 0.03 K/uL on 8:51:32 HISTORIC SITE ADMINISTRATOR by Randa Lorenz. IG Abs (test code See Note 0.00-0.04 Clotted sa mpleNotified = 76556-7) Nurse Troy at 04/02/2022 8:47:15 AM CSTCordelia newsome will recollectFSCorr ected from 0.32 K/uL [HI] on 04/02/22 8:51:32 HISTORIC SITE ADMINISTRATOR by Randa Lorenz. [facility] [id number] 14:51:34 Test Item Value Reference Range Interpretation Comments Neutrophil % (test See Note 42.0-66.0 Clotted s ampleNotified code = 770-8) Nurse Troy jorge t 04/02/2022 8:47:15 AM CSTCordelia newsome will recollectFSCorr ected from 54.0 % on 04/02 8:51:32 HISTORIC SITE ADMINISTRATOR by Randa Quintanilla. Lymphocyte % (test See Note 24.0-44.0 Clotted s ampleNotified code = 736-9) Nurse Troy a t 04/02/2022 8:47:15 AM CSTCordelia newsome will recollectFSCorr ected from 37.5 % on 04/02 8:51:32 HISTORIC SITE ADMINISTRATOR by Randa Quintanilla. Monocyte % (test See Note 2.0-7.0 Clotted oralia pleNotified code = 5905-5) Nurse Adeolatcsavanah at 04/02/2022 8:47:15 AM CSTN jerod will recollectFSCorr ected from 5.0 % on 8:51:32 HISTORIC SITE ADMINISTRATOR by Randa Quintanilla. Eosinophil % (test See Note 1.0-4.0 Clotted s ampleNotified code = 713-8) Nurse Adeolatcsavanah a t 04/02/2022 8:47:15 AM CSTCordelia newsome will recollectFSCorr ected from 0.8 % [LOW] on 04/02/22 8:51:32 HISTORIC SITE ADMINISTRATOR by Randa Lorenz. Basophil % (test See Note 0.0-1.0 Clotted oralia pleNotified code = 706-2) Nurse Adeolatcsavanah a t 04/02/2022 8:47:15 AM CSTCordelia newsome will recollectFSCorr ected from 0.2 % on 8:51:32 HISTORIC SITE ADMINISTRATOR by Randa Quintanilla. IGRE % (test code See Note 0.0-0.4 Clotted sa mpleNotified = 21536-5) Nurse Adeolasavanah at 04/02/2022 8:47:15 AM CSTCordelia newsome will recollectFSIGRE % count includes Metamy elocytes, Myelocytes, and Promyelocytes.I GRE % count includes Metamy elocytes, Myelocytes, and Promyelocytes.C orrected from 2.5 % [HI] on 04/02/22 8:51:32 HISTORIC SITE ADMINISTRATOR by Randa Lorenz. Neutrophil Abs See Note 1.70-7.30 Clotted sampl eNotified (test code = Nurse Adeolatcsavanah at 04/02/2022 751-8) 8:47:15 AM CSTCordelia newsome will recollectFSCorr ected from 6.86 K/uL on 8:51:32 HISTORIC SITE ADMINISTRATOR by Randa Lorenz. Lymphocyte Abs See Note 1.00-4.80 Clotted sampl eNotified (test code = Nurse Bettcy at 04/02/2022 731-0) 8:47:15 AM CSTN jerod will recollectFSCorr ected from 4.77 K/uL on 8:51:32 HISTORIC SITE ADMINISTRATOR by Randa Lorenz. Monocyte Abs (test See Note 0.08-0.70 Clotted s ampleNotified code = 742-7) Nurse Bettcy a t 04/02/2022 8:47:15 AM CSTN jerod will recollectFSCorr ected from 0.63 K/uL on 8:51:32 HISTORIC SITE ADMINISTRATOR by Randa Lorenz. Eosinophil Abs See Note 0.04-0.40 Clotted sampl eNotified (test code = Nurse Bettcy at 04/02/2022 711-2) 8:47:15 AM CSTN jerod will recollectFSCorr ected from 0.10 K/uL on 8:51:32 HISTORIC SITE ADMINISTRATOR by Randa Lorenz. Basophil Abs (test See Note 0.00-0.10 Clotted s ampleNotified code = 704-7) Nurse Bettcy a t 04/02/2022 8:47:15 AM CSTN jerod will recollectFSCorr ected from 0.03 K/uL on 8:51:32 HISTORIC SITE ADMINISTRATOR by Randa Lorenz. IG Abs (test code See Note 0.00-0.04 Clotted sa mpleNotified = 76733-8) Nurse Bettcy at 04/02/2022 8:47:15 AM CSTN jerod will recollectFSCorr ected from 0.32 K/uL [HI] on 04/02/22 8:51:32 HISTORIC SITE ADMINISTRATOR by Randa Lorenz. [facility] OaruqdAcuamrkwqfeq5192-62-19 14:51:34 Test Item Value Reference Range Interpretation Comments Neutrophil % (test See Note 42.0-66.0 Clotted s ampleNotified code = 770-8) Nurse Bettcy a t 04/02/2022 8:47:15 AM CSTN jerod will recollectFSCorr ected from 54.0 % on 04/02 8:51:32 HISTORIC SITE ADMINISTRATOR by Randa Quintanilla. Lymphocyte % (test See Note 24.0-44.0 Clotted s ampleNotified code = 736-9) Nurse Bettcy a t 04/02/2022 8:47:15 AM CSTN jerod will recollectFSCorr ected from 37.5 % on 04/02 8:51:32 HISTORIC SITE ADMINISTRATOR by Randa Quintanilla. Monocyte % (test See Note 2.0-7.0 Clotted oralia pleNotified code = 5905-5) Nurse Bettcy at 04/02/2022 8:47:15 AM CSTN jerod will recollectFSCorr ected from 5.0 % on 8:51:32 HISTORIC SITE ADMINISTRATOR by Randa Quintanilla. Eosinophil % (test See Note 1.0-4.0 Clotted s ampleNotified code = 713-8) Nurse Bettcy a t 04/02/2022 8:47:15 AM CSTN jerod will recollectFSCorr ected from 0.8 % [LOW] on 04/02/22 8:51:32 HISTORIC SITE ADMINISTRATOR by Randa Lorenz. Basophil % (test See Note 0.0-1.0 Clotted oralia pleNotified code = 706-2) Nurse Bettcy a t 04/02/2022 8:47:15 AM CSTCordelia newsome will recollectFSCorr ected from 0.2 % on 8:51:32 HISTORIC SITE ADMINISTRATOR by Randa Quintanilla. IGRE % (test code See Note 0.0-0.4 Clotted sa mpleNotified = 85479-7) Nurse Bettcy at 04/02/2022 8:47:15 AM CSTN jerod will recollectFSIGRE % count includes Metamy elocytes, Myelocytes, and Promyelocytes.I GRE % count includes Metamy elocytes, Myelocytes, and Promyelocytes.C orrected from 2.5 % [HI] on 04/02/22 8:51:32 HISTORIC SITE ADMINISTRATOR by Randa Lorenz. Neutrophil Abs See Note 1.70-7.30 Clotted sampl eNotified (test code = Nurse Bettcy at 04/02/2022 751-8) 8:47:15 AM CSTN jerod will recollectFSCorr ected from 6.86 K/uL on 8:51:32 HISTORIC SITE ADMINISTRATOR by Randa Lorenz. Lymphocyte Abs See Note 1.00-4.80 Clotted sampl eNotified (test code = Nurse Bettcy at 04/02/2022 731-0) 8:47:15 AM CSTN urse will recollectFSCorr ected from 4.77 K/uL on 8:51:32 HISTORIC SITE ADMINISTRATOR by Randa Lorenz. Monocyte Abs (test See Note 0.08-0.70 Clotted s ampleNotified code = 742-7) Nurse Bettcy a t 04/02/2022 8:47:15 AM CSTN jerod will recollectFSCorr ected from 0.63 K/uL on 8:51:32 HISTORIC SITE ADMINISTRATOR by Randa Lorenz. Eosinophil Abs See Note 0.04-0.40 Clotted sampl eNotified (test code = Nurse Bettcy at 04/02/2022 711-2) 8:47:15 AM CSTN jerod will recollectFSCorr ected from 0.10 K/uL on 8:51:32 HISTORIC SITE ADMINISTRATOR by Randa Lorenz. Basophil Abs (test See Note 0.00-0.10 Clotted s ampleNotified code = 704-7) Nurse Bettcy a t 04/02/2022 8:47:15 AM CSTN urse will recollectFSCorr ected from 0.03 K/uL on 8:51:32 HISTORIC SITE ADMINISTRATOR by Randa Lorenz. IG Abs (test code See Note 0.00-0.04 Clotted sa mpleNotified = 89797-0) Nurse Bettcy at 04/02/2022 8:47:15 AM CSTN urse will recollectFSCorr ected from 0.32 K/uL [HI] on 04/02/22 8:51:32 HISTORIC SITE ADMINISTRATOR by Randa Lorenz. [facility] BiaiixVskqqjtgejng4112-96-15 14:51:34 Test Item Value Reference Range Interpretation Comments Neutrophil % (test See Note 42.0-66.0 Clotted s ampleNotified code = 770-8) Nurse Adeolasavanah jorge t 04/02/2022 8:47:15 AM CHRIS newsome will recollectFSCorr ected from 54.0 % on 04/02 8:51:32 HISTORIC SITE ADMINISTRATOR by Randa Quintanilla. Lymphocyte % (test See Note 24.0-44.0 Clotted s ampleNotified code = 736-9) Nurse Adeolasavanah a t 04/02/2022 8:47:15 AM CHRIS newsome will recollectFSCorr ected from 37.5 % on 04/02 8:51:32 HISTORIC SITE ADMINISTRATOR by Randa Quintanilla. Monocyte % (test See Note 2.0-7.0 Clotted oralia pleNotified code = 5905-5) Nurse dAeolasavanah at 04/02/2022 8:47:15 AM CHRIS newsome will recollectFSCorr ected from 5.0 % on 8:51:32 HISTORIC SITE ADMINISTRATOR by Randa Quintanilla. Eosinophil % (test See Note 1.0-4.0 Clotted s ampleNotified code = 713-8) Nurse Adeolasavanah jorge t 04/02/2022 8:47:15 AM CHRIS newsome will recollectFSCorr ected from 0.8 % [LOW] on 04/02/22 8:51:32 HISTORIC SITE ADMINISTRATOR by Randa Lorenz. Basophil % (test See Note 0.0-1.0 Clotted oralia pleNotified code = 706-2) Nurse Adeolasavanah a t 04/02/2022 8:47:15 AM CHRIS newsome will recollectFSCorr ected from 0.2 % on 8:51:32 HISTORIC SITE ADMINISTRATOR by Randa Quintanilla. IGRE % (test code See Note 0.0-0.4 Clotted sa mpleNotified = 51220-6) Nurse Troy at 04/02/2022 8:47:15 AM CSTCordelia newsome will recollectFSIGRE % count includes Metamy elocytes, Myelocytes, and Promyelocytes.I GRE % count includes Metamy elocytes, Myelocytes, and Promyelocytes.C orrected from 2.5 % [HI] on 04/02/22 8:51:32 HISTORIC SITE ADMINISTRATOR by Randa Lorenz. Neutrophil Abs See Note 1.70-7.30 Clotted sampl eNotified (test code = Nurse Adeolatcsavanah at 04/02/2022 751-8) 8:47:15 AM CSTCordelia newsome will recollectFSCorr ected from 6.86 K/uL on 8:51:32 HISTORIC SITE ADMINISTRATOR by Randa Lorenz. Lymphocyte Abs See Note 1.00-4.80 Clotted sampl eNotified (test code = Nurse Adeolatcsavanah at 04/02/2022 731-0) 8:47:15 AM CSTCordelia newsome will recollectFSCorr ected from 4.77 K/uL on 8:51:32 HISTORIC SITE ADMINISTRATOR by Randa Lorenz. Monocyte Abs (test See Note 0.08-0.70 Clotted s ampleNotified code = 742-7) Nurse Troy a t 04/02/2022 8:47:15 AM CSTCordelia newsome will recollectFSCorr ected from 0.63 K/uL on 8:51:32 HISTORIC SITE ADMINISTRATOR by Randa Lorenz. Eosinophil Abs See Note 0.04-0.40 Clotted sampl eNotified (test code = Nurse Bettcsavanah at 04/02/2022 711-2) 8:47:15 AM CSTCordelia newsome will recollectFSCorr ected from 0.10 K/uL on 8:51:32 HISTORIC SITE ADMINISTRATOR by Randa Lorenz. Basophil Abs (test See Note 0.00-0.10 Clotted s ampleNotified code = 704-7) Nurse Adeolatcy a t 04/02/2022 8:47:15 AM CSTN jerod will recollectFSCorr ected from 0.03 K/uL on 8:51:32 HISTORIC SITE ADMINISTRATOR by Randa Lorenz. IG Abs (test code See Note 0.00-0.04 Clotted sa mpleNotified = 11180-0) Nurse Adeolatcsavanah at 04/02/2022 8:47:15 AM CSTCordelia newsome will recollectFSCorr ected from 0.32 K/uL [HI] on 04/02/22 8:51:32 HISTORIC SITE ADMINISTRATOR by Randa Lorenz. [facility] 14:51:34 Test Item Value Reference Range Interpretation Comments Neutrophil % (test See Note 42.0-66.0 Clotted s ampleNotified code = 770-8) Nurse Bettcy a t 04/02/2022 8:47:15 AM CHRIS newsome will recollectFSCorr ected from 54.0 % on 04/02 8:51:32 HISTORIC SITE ADMINISTRATOR by Randa Quintanilla. Lymphocyte % (test See Note 24.0-44.0 Clotted s ampleNotified code = 736-9) Nurse Bettcy a t 04/02/2022 8:47:15 AM CSTCordelia newsome will recollectFSCorr ected from 37.5 % on 04/02 8:51:32 HISTORIC SITE ADMINISTRATOR by Randa Quintanilla. Monocyte % (test See Note 2.0-7.0 Clotted oralia pleNotified code = 5905-5) Nurse Bettcy at 04/02/2022 8:47:15 AM CSTN jerod will recollectFSCorr ected from 5.0 % on 8:51:32 HISTORIC SITE ADMINISTRATOR by Randa Quintanilla. Eosinophil % (test See Note 1.0-4.0 Clotted s ampleNotified code = 713-8) Nurse Bettcy a t 04/02/2022 8:47:15 AM CSTN jerod will recollectFSCorr ected from 0.8 % [LOW] on 04/02/22 8:51:32 HISTORIC SITE ADMINISTRATOR by Randa Lorenz. Basophil % (test See Note 0.0-1.0 Clotted oralia pleNotified code = 706-2) Nurse Bettcy a t 04/02/2022 8:47:15 AM CSTCordelia newsome will recollectFSCorr ected from 0.2 % on 8:51:32 HISTORIC SITE ADMINISTRATOR by Randa Quintanilla. IGRE % (test code See Note 0.0-0.4 Clotted sa mpleNotified = 41039-4) Nurse Bettcy at 04/02/2022 8:47:15 AM CSTN jerod will recollectFSIGRE % count includes Metamy elocytes, Myelocytes, and Promyelocytes.I GRE % count includes Metamy elocytes, Myelocytes, and Promyelocytes.C orrected from 2.5 % [HI] on 04/02/22 8:51:32 HISTORIC SITE ADMINISTRATOR by Randa Lorenz. Neutrophil Abs See Note 1.70-7.30 Clotted sampl eNotified (test code = Nurse Bettcy at 04/02/2022 751-8) 8:47:15 AM CSTCordelia newsome will recollectFSCorr ected from 6.86 K/uL on 8:51:32 HISTORIC SITE ADMINISTRATOR by Randa Lorenz. Lymphocyte Abs See Note 1.00-4.80 Clotted sampl eNotified (test code = Nurse Bettcy at 04/02/2022 731-0) 8:47:15 AM CSTCordelia newsome will recollectFSCorr ected from 4.77 K/uL on 8:51:32 HISTORIC SITE ADMINISTRATOR by Randa Lorenz. Monocyte Abs (test See Note 0.08-0.70 Clotted s ampleNotified code = 742-7) Nurse Bettcy a t 04/02/2022 8:47:15 AM CSTCordelia newsome will recollectFSCorr ected from 0.63 K/uL on 8:51:32 HISTORIC SITE ADMINISTRATOR by Randa Lorenz. Eosinophil Abs See Note 0.04-0.40 Clotted sampl eNotified (test code = Nurse Bettcy at 04/02/2022 711-2) 8:47:15 AM CSTCordelia newsome will recollectFSCorr ected from 0.10 K/uL on 8:51:32 HISTORIC SITE ADMINISTRATOR by Randa Lorenz. Basophil Abs (test See Note 0.00-0.10 Clotted s ampleNotified code = 704-7) Nurse Bettcy a t 04/02/2022 8:47:15 AM CSTCordelia newsome will recollectFSCorr ected from 0.03 K/uL on 8:51:32 HISTORIC SITE ADMINISTRATOR by Randa Lorenz. IG Abs (test code See Note 0.00-0.04 Clotted sa mpleNotified = 10703-6) Nurse Bettcy at 04/02/2022 8:47:15 AM CSTCordelia newsome will recollectFSCorr ected from 0.32 K/uL [HI] on 04/02/22 8:51:32 HISTORIC SITE ADMINISTRATOR by Randa Lorenz. [facility] [place].[id number] 14:51:33 Test Item Value Reference Range Interpretation Comments WBC (test code = See Note 4.0-11.0 A Clotted oralia pleNotified 6690-2) Nurse Bettcy at 04/02/2022 8:47:15 AM CSTCordelia newsome will recollectFSCorr ected from 12.7 K/uL [HI] on 04/02/22 8:51:32 HISTORIC SITE ADMINISTRATOR by Randa Lorenz. RBC (test code = See Note See_Comment A Clotted oralia pleNotified 789-8) Nurse Bettc at 04/02/2022 8:47:15 AM CSTCordelia newsome will recollectFSCorr ected from 5.04 M/uL on 8:51:32 HISTORIC SITE ADMINISTRATOR by Randa Lorenz. [Aut omated message] The [...] from 13.2 gm/dL on 0 04/02/22 8:51:32 HISTORIC SITE ADMINISTRATOR by Randa Lorenz. [Aut omated message] The [...] ected from 41.2 % on 04/02 8:51:32 HISTORIC SITE ADMINISTRATOR by Randa Quintanilla. MCV (test code = See Note 82-98 A Clotted oralia pleNotified 787-2) Nurse Bettcy at 04/02/2022 8:47:15 AM CSTCordelia newsome will recollectFSCorr ected from 82 fL on 8:51:32 HISTORIC SITE ADMINISTRATOR by Randa Quintanilla. MCH (test code = See Note 27.0-31.0 A Clotted oralia pleNotified 785-6) Nurse Bettcy at 04/02/2022 8:47:15 AM CSTCordelia newsome will recollectFSCorr ected from 26.2 pg [LOW] o n 04/02/22 8:51:32 HISTORIC SITE ADMINISTRATOR by Randa Lorenz. MCHC (test code = See Note See_Comment A Clotted sa mpleNotified 786-4) Nurse Bettcy at 04/02/2022 8:47:15 AM CSTCordelia newsome will recollectFSCorr ected from 32.0 gm/dL on 0 04/02/22 8:51:32 HISTORIC SITE ADMINISTRATOR by Randa Lorenz. [Aut omated message] The sy stem which generated this result transmitted ref erence range: 31.0 - 3 6.0 gm/dL. The reference r ashley was not used to int erpret this result as nehemiah l/abnormal. RDW-SD (test code = See Note 35.1-46.3 A Clotted sampleNotified 63996-9) Nurse Bettcy at 04/02/2022 8:47:15 AM CSTCordelia newsome will recollectFSCorr ected from 42.7 fL on 09/15 8:51:32 HISTORIC SITE ADMINISTRATOR by Randa Lorenz. RDW-CV (test code = See Note 12.0-15.5 A Clotted sampleNotified 788-0) Nurse Bettcy at 04/02/2022 8:47:15 AM CSTCordelia newsome will recollectFSCorr ected from 15.1 % on 04/02 8:51:32 HISTORIC SITE ADMINISTRATOR by Randa Quintanilla. Platelet count (test See Note 140-440 A Clotted sampleNotified code = 777-3) Nurse Bettcy a t 04/02/2022 8:47:15 AM CSTCordelia newsome will recollectFS MPV (test code = See Note 4.0-10.4 Clotted oralia pleNotified 72612-7) Nurse Bettcy at 04/02/2022 8:47:15 AM CSTCordelia newsome will recollectFS INRBC (test code = See Note See_Comment A Clotted s ampleNotified 40280-6) Nurse Bettcy at 04/02/2022 8:47:15 AM CSTCordelia [...] from 0.0 % on 0 04/02/22 8:51:32 HISTORIC SITE ADMINISTRATOR by Randa Lorenz. [Aut omated message] The sy stem which generated this result transmitted ref erence range: %. The r eference range was not u sed to interpret this result as normal/abnormal . Lab Interpretation Abnormal (test code = 43956-6) [facility] [place].[id number] 14:51:33 Test Item Value Reference Range Interpretation Comments WBC (test code = See Note 4.0-11.0 A Clotted oralia pleNotified 6690-2) Nurse Bettcy at 04/02/2022 8:47:15 AM CSTCordelia newsome will recollectFSCorr ected from 12.7 K/uL [HI] on 04/02/22 8:51:32 HISTORIC SITE ADMINISTRATOR by Randa Lorenz. RBC (test code = See Note See_Comment A Clotted oralia pleNotified 789-8) Nurse Bettcy at 04/02/2022 8:47:15 AM CSTCordelia newsome will recollectFSCorr ected from 5.04 M/uL on 8:51:32 HISTORIC SITE ADMINISTRATOR by Randa Lorenz. [Aut omated message] The [...] from 13.2 gm/dL on 0 04/02/22 8:51:32 HISTORIC SITE ADMINISTRATOR by Randa Lorenz. [Aut omated message] The [...] ected from 41.2 % on 04/02 8:51:32 HISTORIC SITE ADMINISTRATOR by Randa Quintanilla. MCV (test code = See Note 82-98 A Clotted oralia pleNotified 787-2) Nurse Bettcy at 04/02/2022 8:47:15 AM CSTN jerod will recollectFSCorr ected from 82 fL on 8:51:32 HISTORIC SITE ADMINISTRATOR by Randa Quintanilla. MCH (test code = See Note 27.0-31.0 A Clotted oralia pleNotified 785-6) Nurse Bettcy at 04/02/2022 8:47:15 AM CSTN jerod will recollectFSCorr ected from 26.2 pg [LOW] o n 04/02/22 8:51:32 HISTORIC SITE ADMINISTRATOR by Randa Lorenz. MCHC (test code = See Note See_Comment A Clotted sa mpleNotified 786-4) Nurse Bettcy at 04/02/2022 8:47:15 AM CSTCordelia nwesome will recollectFSCorr ected from 32.0 gm/dL on 0 04/02/22 8:51:32 HISTORIC SITE ADMINISTRATOR by Randa Lorenz. [Aut omated message] The sy stem which generated this result transmitted ref erence range: 31.0 - 3 6.0 gm/dL. The reference r ashley was not used to int erpret this result as nehemiah l/abnormal. RDW-SD (test code = See Note 35.1-46.3 A Clotted sampleNotified 97165-5) Nurse Bettcy at 04/02/2022 8:47:15 AM CSTCordelia newsome will recollectFSCorr ected from 42.7 fL on 09/15 8:51:32 HISTORIC SITE ADMINISTRATOR by Randa Lorenz. RDW-CV (test code = See Note 12.0-15.5 A Clotted sampleNotified 788-0) Nurse Bettcy at 04/02/2022 8:47:15 AM CSTCordelia newsome will recollectFSCorr ected from 15.1 % on 04/02 8:51:32 HISTORIC SITE ADMINISTRATOR by Randa Quintanilla. Platelet count (test See Note 140-440 A Clotted sampleNotified code = 777-3) Nurse Bettcy a t 04/02/2022 8:47:15 AM CSTN urse will recollectFS MPV (test code = See Note 4.0-10.4 Clotted oralia pleNotified 95387-6) Nurse Bettcy at 04/02/2022 8:47:15 AM CSTCordelia newsome will recollectFS INRBC (test code = See Note See_Comment A Clotted s ampleNotified 24688-7) Nurse Bettcy at 04/02/2022 8:47:15 AM CSTCordelia [...] from 0.0 % on 0 04/02/22 8:51:32 HISTORIC SITE ADMINISTRATOR by Randa Lorenz. [Aut omated message] The sy stem which generated this result transmitted ref erence range: %. The r eference range was not u sed to interpret this result as normal/abnormal . Lab Interpretation Abnormal (test code = 89369-4) [facility] [place].[id number] 14:51:33 Test Item Value Reference Range Interpretation Comments WBC (test code = See Note 4.0-11.0 A Clotted oralia pleNotified 6690-2) Nurse Bettcy at 04/02/2022 8:47:15 AM CSTCordelia newsome will recollectFSCorr ected from 12.7 K/uL [HI] on 04/02/22 8:51:32 HISTORIC SITE ADMINISTRATOR by Randa Lorenz. RBC (test code = See Note See_Comment A Clotted oralia pleNotified 789-8) Nurse Bettcy at 04/02/2022 8:47:15 AM CSTCordelia newsome will recollectFSCorr ected from 5.04 M/uL on 8:51:32 HISTORIC SITE ADMINISTRATOR by Randa Lorenz. [Aut omated message] The [...] from 13.2 gm/dL on 0 04/02/22 8:51:32 HISTORIC SITE ADMINISTRATOR by Randa Lorenz. [Aut omated message] The [...] ected from 41.2 % on 04/02 8:51:32 HISTORIC SITE ADMINISTRATOR by Randa Quintanilla. MCV (test code = See Note 82-98 A Clotted oralia pleNotified 787-2) Nurse Bettcy at 04/02/2022 8:47:15 AM CSTN jerod will recollectFSCorr ected from 82 fL on 8:51:32 HISTORIC SITE ADMINISTRATOR by Randa Quintanilla. MCH (test code = See Note 27.0-31.0 A Clotted oralia pleNotified 785-6) Nurse Bettcy at 04/02/2022 8:47:15 AM CSTN jerod will recollectFSCorr ected from 26.2 pg [LOW] o n 04/02/22 8:51:32 HISTORIC SITE ADMINISTRATOR by Randa Lorenz. MCHC (test code = See Note See_Comment A Clotted sa mpleNotified 786-4) Nurse Bettcy at 04/02/2022 8:47:15 AM CSTN jerod will recollectFSCorr ected from 32.0 gm/dL on 0 04/02/22 8:51:32 HISTORIC SITE ADMINISTRATOR by Randa Lorenz. [Aut omated message] The sy stem which generated this result transmitted ref erence range: 31.0 - 3 6.0 gm/dL. The reference r ashley was not used to int erpret this result as nehemiah l/abnormal. RDW-SD (test code = See Note 35.1-46.3 A Clotted sampleNotified 59158-2) Nurse Bettcy at 04/02/2022 8:47:15 AM CSTCordelia newsome will recollectFSCorr ected from 42.7 fL on 09/15 8:51:32 HISTORIC SITE ADMINISTRATOR by Randa Lorenz. RDW-CV (test code = See Note 12.0-15.5 A Clotted sampleNotified 788-0) Nurse Bettcy at 04/02/2022 8:47:15 AM CHRIS newsome will recollectFSCorr ected from 15.1 % on 04/02 8:51:32 HISTORIC SITE ADMINISTRATOR by Randa Quintanilla. Platelet count (test See Note 140-440 A Clotted sampleNotified code = 777-3) [facility] 04/02/2022 8:47:15 AM CSTCordelia newsome will recollectFS MPV (test code = See Note 4.0-10.4 Clotted oralia pleNotified 51715-0) Nurse Bettcy at 04/02/2022 8:47:15 AM CHRIS newsome will recollectFS INRBC (test code = See Note See_Comment A Clotted s ampleNotified 89515-6) Nurse Bettcy at 04/02/2022 8:47:15 AM CSTCordelia [...] from 0.0 % on 0 04/02/22 8:51:32 HISTORIC SITE ADMINISTRATOR by Randa Lorenz. [Aut omated message] The sy stem which generated this result transmitted ref erence range: %. The r eference range was not u sed to interpret this result as normal/abnormal . Lab Interpretation Abnormal (test code = 36811-9) [facility] [place].[id number] 14:51:33 Test Item Value Reference Range Interpretation Comments WBC (test code = See Note 4.0-11.0 A Clotted oralia pleNotified 6690-2) Nurse Bettcy at 04/02/2022 8:47:15 AM CSTCordelia newsome will recollectFSCorr ected from 12.7 K/uL [HI] on 04/02/22 8:51:32 HISTORIC SITE ADMINISTRATOR by Randa Lorenz. RBC (test code = See Note See_Comment A Clotted oralia pleNotified 789-8) Nurse Bettcy at 04/02/2022 8:47:15 AM CSTCordelia newsome will recollectFSCorr ected from 5.04 M/uL on 8:51:32 HISTORIC SITE ADMINISTRATOR by Randa Lorenz. [Aut omated message] The [...] from 13.2 gm/dL on 0 04/02/22 8:51:32 HISTORIC SITE ADMINISTRATOR by Randa Lorenz. [Aut omated message] The [...] ected from 41.2 % on 04/02 8:51:32 HISTORIC SITE ADMINISTRATOR by Randa Quintanilla. MCV (test code = See Note 82-98 A Clotted oralia pleNotified 787-2) Nurse Bettcy at 04/02/2022 8:47:15 AM CSTN jerod will recollectFSCorr ected from 82 fL on 8:51:32 HISTORIC SITE ADMINISTRATOR by Randa Quintanilla. MCH (test code = See Note 27.0-31.0 A Clotted oralia pleNotified 785-6) Nurse Bettcy at 04/02/2022 8:47:15 AM CSTCordelia newsome will recollectFSCorr ected from 26.2 pg [LOW] o n 04/02/22 8:51:32 HISTORIC SITE ADMINISTRATOR by Randa Lorenz. MCHC (test code = See Note See_Comment A Clotted sa mpleNotified 786-4) Nurse Bettcy at 04/02/2022 8:47:15 AM CSTCordelia newsome will recollectFSCorr ected from 32.0 gm/dL on 0 04/02/22 8:51:32 HISTORIC SITE ADMINISTRATOR by Randa Lorenz. [Aut omated message] The sy stem which generated this result transmitted ref erence range: 31.0 - 3 6.0 gm/dL. The reference r ashley was not used to int erpret this result as nehemiah l/abnormal. RDW-SD (test code = See Note 35.1-46.3 A Clotted sampleNotified 17959-1) Nurse Bettcy at 04/02/2022 8:47:15 AM CSTCordelia newsome will recollectFSCorr ected from 42.7 fL on 0209/15 8:51:32 HISTORIC SITE ADMINISTRATOR by Randa Lorenz. RDW-CV (test code = See Note 12.0-15.5 A Clotted sampleNotified 8-0) Nurse Bettcy at 04/02/2022 8:47:15 AM CSTCordelia newsome will recollectFSCorr ected from 15.1 % on 04/02 8:51:32 HISTORIC SITE ADMINISTRATOR by Randa Quintanilla. Platelet count (test See Note 140-440 A Clotted sampleNotified code = 777-3) Nurse Bettcy a t 04/02/2022 8:47:15 AM CSTCordelia newsome will recollectFS MPV (test code = See Note 4.0-10.4 Clotted oralia pleNotified 70883-4) Nurse Bettcy at 04/02/2022 8:47:15 AM CSTCordelia newsome will recollectFS INRBC (test code = See Note See_Comment A Clotted s ampleNotified 06455-7) Nurse Bettcy at 04/02/2022 8:47:15 AM CSTCordelia [...] from 0.0 % on 0 04/02/22 8:51:32 HISTORIC SITE ADMINISTRATOR by Randa Lorenz. [Aut omated message] The sy stem which generated this result transmitted ref erence range: %. The r eference range was not u sed to interpret this result as normal/abnormal . Lab Interpretation Abnormal (test code = 14980-4) [facility] [place].[id number] 14:51:33 Test Item Value Reference Range Interpretation Comments WBC (test code = See Note 4.0-11.0 A Clotted oralia pleNotified 6690-2) Nurse Bettcy at 04/02/2022 8:47:15 AM CSTCordelia newsome will recollectFSCorr ected from 12.7 K/uL [HI] on 04/02/22 8:51:32 HISTORIC SITE ADMINISTRATOR by Randa Lorenz. RBC (test code = See Note See_Comment A Clotted oralia pleNotified 789-8) Nurse Bettcy at 04/02/2022 8:47:15 AM CHRIS newsome will recollectFSCorr ected from 5.04 M/uL on 8:51:32 HISTORIC SITE ADMINISTRATOR by Randa Lorenz. [Aut omated message] The [...] from 13.2 gm/dL on 0 04/02/22 8:51:32 HISTORIC SITE ADMINISTRATOR by Randa Lorenz. [Aut omated message] The [...] ected from 41.2 % on 04/02 8:51:32 HISTORIC SITE ADMINISTRATOR by Randa Quintanilla. MCV (test code = See Note 82-98 A Clotted oralia pleNotified 787-2) Nurse Bettcy at 04/02/2022 8:47:15 AM CSTCordelia newsome will recollectFSCorr ected from 82 fL on 8:51:32 HISTORIC SITE ADMINISTRATOR by Randa Quintanilla. MCH (test code = See Note 27.0-31.0 A Clotted oralia pleNotified 785-6) Nurse Bettcy at 04/02/2022 8:47:15 AM CSTCordelia newsome will recollectFSCorr ected from 26.2 pg [LOW] o n 04/02/22 8:51:32 HISTORIC SITE ADMINISTRATOR by Randa Lorenz. MCHC (test code = See Note See_Comment A Clotted sa mpleNotified 786-4) Nurse Bettcy at 04/02/2022 8:47:15 AM CSTCordelia newsome will recollectFSCorr ected from 32.0 gm/dL on 0 04/02/22 8:51:32 HISTORIC SITE ADMINISTRATOR by Randa Lorenz. [Aut omated message] The sy stem which generated this result transmitted ref erence range: 31.0 - 3 6.0 gm/dL. The reference r ashley was not used to int erpret this result as nehemiah l/abnormal. RDW-SD (test code = See Note 35.1-46.3 A Clotted sampleNotified 20888-6) Nurse Bettcy at 04/02/2022 8:47:15 AM CSTCordelia newsome will recollectFSCorr ected from 42.7 fL on 0209/15 8:51:32 HISTORIC SITE ADMINISTRATOR by Randa Lorenz. RDW-CV (test code = See Note 12.0-15.5 A Clotted sampleNotified 788-0) Nurse Bettcy at 04/02/2022 8:47:15 AM CSTCordelia newsome will recollectFSCorr ected from 15.1 % on 04/02 8:51:32 HISTORIC SITE ADMINISTRATOR by Randa Quintanilla. Platelet count (test See Note 140-440 A Clotted sampleNotified code = 777-3) Nurse Bettcy a t 04/02/2022 8:47:15 AM CSTCordelia newsome will recollectFS MPV (test code = See Note 4.0-10.4 Clotted oralia pleNotified 21008-0) Nurse Bettcy at 04/02/2022 8:47:15 AM CSTCordelia newsome will recollectFS INRBC (test code = See Note See_Comment A Clotted s ampleNotified 35140-3) Nurse Bettcy at 04/02/2022 8:47:15 AM CSTCordelia [...] from 0.0 % on 0 04/02/22 8:51:32 HISTORIC SITE ADMINISTRATOR by Randa Lorenz. [Aut omated message] The sy stem which generated this result transmitted ref erence range: %. The r eference range was not u sed to interpret this result as normal/abnormal . Lab Interpretation Abnormal (test code = 52583-3) [facility] [place].[id number] 14:51:33 Test Item Value Reference Range Interpretation Comments WBC (test code = See Note 4.0-11.0 A Clotted oralia pleNotified 6690-2) Nurse Adeolatcsavanah at 04/02/2022 8:47:15 AM CSTCordelia newsome will recollectFSCorr ected from 12.7 K/uL [HI] on 04/02/22 8:51:32 HISTORIC SITE ADMINISTRATOR by Randa Lorenz. RBC (test code = See Note See_Comment A Clotted oralia pleNotified 789-8) Nurse Adeolatcsavanah at 04/02/2022 8:47:15 AM CSTCordelia newsome will recollectFSCorr ected from 5.04 M/uL on 8:51:32 HISTORIC SITE ADMINISTRATOR by Randa Lorenz. [Aut omated message] The [...] from 13.2 gm/dL on 0 04/02/22 8:51:32 HISTORIC SITE ADMINISTRATOR by Randa Lorenz. [Aut omated message] The [...] ected from 41.2 % on 04/02 8:51:32 HISTORIC SITE ADMINISTRATOR by Randa Quintanilla. MCV (test code = See Note 82-98 A Clotted oralia pleNotified 787-2) Nurse Bettcy at 04/02/2022 8:47:15 AM CSTCordelia newsome will recollectFSCorr ected from 82 fL on 8:51:32 HISTORIC SITE ADMINISTRATOR by Randa Quintanilla. MCH (test code = See Note 27.0-31.0 A Clotted oralia pleNotified 785-6) Nurse Bettcy at 04/02/2022 8:47:15 AM CSTCordelia newsome will recollectFSCorr ected from 26.2 pg [LOW] o n 04/02/22 8:51:32 HISTORIC SITE ADMINISTRATOR by Randa Lorenz. MCHC (test code = See Note See_Comment A Clotted sa mpleNotified 786-4) Nurse Bettcy at 04/02/2022 8:47:15 AM CSTCordelia newsome will recollectFSCorr ected from 32.0 gm/dL on 0 04/02/22 8:51:32 HISTORIC SITE ADMINISTRATOR by Randa Lorenz. [Aut omated message] The sy stem which generated this result transmitted ref erence range: 31.0 - 3 6.0 gm/dL. The reference r ashley was not used to int erpret this result as nehemiah l/abnormal. RDW-SD (test code = See Note 35.1-46.3 A Clotted sampleNotified 73490-2) Nurse Bettcy at 04/02/2022 8:47:15 AM CSTCordelia newsome will recollectFSCorr ected from 42.7 fL on 0209/15 8:51:32 HISTORIC SITE ADMINISTRATOR by Randa Lorenz. RDW-CV (test code = See Note 12.0-15.5 A Clotted sampleNotified 788-0) Nurse Bettcy at 04/02/2022 8:47:15 AM CSTCordelia newsome will recollectFSCorr ected from 15.1 % on 04/02 8:51:32 HISTORIC SITE ADMINISTRATOR by Randa Quintanilla. Platelet count (test See Note 140-440 A Clotted sampleNotified code = 777-3) Nurse Bettcy a t 04/02/2022 8:47:15 AM CSTCordelia newsome will recollectFS MPV (test code = See Note 4.0-10.4 Clotted oralia pleNotified 00809-0) Nurse Bettcy at 04/02/2022 8:47:15 AM CSTCordelia newsome will recollectFS INRBC (test code = See Note See_Comment A Clotted s ampleNotified 04914-0) Nurse Bettcy at 04/02/2022 8:47:15 AM CSTCordelia [...] from 0.0 % on 0 04/02/22 8:51:32 HISTORIC SITE ADMINISTRATOR by Randa Lorenz. [Aut omated message] The sy stem which generated this result transmitted ref erence range: %. The r eference range was not u sed to interpret this result as normal/abnormal . Lab Interpretation Abnormal (test code = 82567-3) [facility] [place].[id number] 14:51:33 Test Item Value Reference Range Interpretation Comments WBC (test code = See Note 4.0-11.0 A Clotted oralia pleNotified 6690-2) Nurse Bettcy at 04/02/2022 8:47:15 AM CSTCordelia newsome will recollectFSCorr ected from 12.7 K/uL [HI] on 04/02/22 8:51:32 HISTORIC SITE ADMINISTRATOR by Randa Lorenz. RBC (test code = See Note See_Comment A Clotted oralia pleNotified 789-8) Nurse Bettcy at 04/02/2022 8:47:15 AM CSTCordelia newsome will recollectFSCorr ected from 5.04 M/uL on 8:51:32 HISTORIC SITE ADMINISTRATOR by Randa Lorenz. [Aut omated message] The sy stem which generated this result transmitted ref erence range: 4.00 - 5 .50 M/uL. The reference r ashley was not used to int erpret this result as nehemiah l/abnormal. Hgb (test code = See Note See_Comment A Clotted oralia pleNotified 718-7) Nurse Bettcy at 04/02/2022 8:47:15 AM CSTCodrelia newsome will recollectFSCorr ected from 13.2 gm/dL on 0 04/02/22 8:51:32 HISTORIC SITE ADMINISTRATOR by Randa Lorenz. [Aut omated message] The [...] ected from 41.2 % on 04/02 8:51:32 HISTORIC SITE ADMINISTRATOR by Randa Quintanilla. MCV (test code = See Note 82-98 A Clotted oralia pleNotified 787-2) Nurse Bettcy at 04/02/2022 8:47:15 AM CSTCordelia newsome will recollectFSCorr ected from 82 fL on 8:51:32 HISTORIC SITE ADMINISTRATOR by Randa Quintanilla. MCH (test code = See Note 27.0-31.0 A Clotted oralia pleNotified 785-6) Nurse Bettcy at 04/02/2022 8:47:15 AM CSTCordelia newsome will recollectFSCorr ected from 26.2 pg [LOW] o n 04/02/22 8:51:32 HISTORIC SITE ADMINISTRATOR by Randa Lorenz. MCHC (test code = See Note See_Comment A Clotted sa mpleNotified 786-4) Nurse Bettcy at 04/02/2022 8:47:15 AM CSTCordelia newsome will recollectFSCorr ected from 32.0 gm/dL on 0 04/02/22 8:51:32 HISTORIC SITE ADMINISTRATOR by Randa Lorenz. [Aut omated message] The sy stem which generated this result transmitted ref erence range: 31.0 - 3 6.0 gm/dL. The reference r ashley was not used to int erpret this result as nehemiah l/abnormal. RDW-SD (test code = See Note 35.1-46.3 A Clotted sampleNotified 12227-6) Nurse Bettcy at 04/02/2022 8:47:15 AM CSTCordelia newsome will recollectFSCorr ected from 42.7 fL on 09/15 8:51:32 HISTORIC SITE ADMINISTRATOR by Randa Lorenz. RDW-CV (test code = See Note 12.0-15.5 A Clotted sampleNotified 788-0) Nurse Bettcy at 04/02/2022 8:47:15 AM CSTCordelia newsome will recollectFSCorr ected from 15.1 % on 04/02 8:51:32 HISTORIC SITE ADMINISTRATOR by Randa Quintanilla. Platelet count (test See Note 140-440 A Clotted sampleNotified code = 777-3) Nurse Bettcy a t 04/02/2022 8:47:15 AM CSTN jerod will recollectFS MPV (test code = See Note 4.0-10.4 Clotted oralia pleNotified 31181-2) Nurse Bettcy at 04/02/2022 8:47:15 AM CSTCordelia newsome will recollectFS INRBC (test code = See Note See_Comment A Clotted s ampleNotified 00495-4) Nurse Bettcy at 04/02/2022 8:47:15 AM CSTCordelia [...] from 0.0 % on 0 04/02/22 8:51:32 HISTORIC SITE ADMINISTRATOR by Randa Lorenz. [Aut omated message] The sy stem which generated this result transmitted ref erence range: %. The r eference range was not u sed to interpret this result as normal/abnormal . Lab Interpretation Abnormal (test code = 33659-3) [facility] Glucose [id number] 14:18:40 Test Item Value Reference Interpretation Comments [...] Capillary code = 9554) Performing Lab (test [facility] code = 28744) [facility] Cli nical Lab, [address] [place] [address]; Plant And Instrument Engineer: Guerline Olmstead MD; Waived Point of Care Testing - Luz Maria levi MD Lab Interpretation Abnormal (test code = 13124-8) [facility] [facility] Glucose [id number] 14:18:40 Test Item Value Reference Interpretation Comments [...] Capillary code = 9554) Performing Lab (test [facility] code = 03338) [facility] Cli nical Lab, [address] [place] [address]; Plant And Instrument Engineer: Guerline Olmstead MD; Waived Point of Care Testing - Luz Maria levi MD Lab Interpretation Abnormal (test code = 20233-9) [facility] Glucose [id number] 14:18:40 Test Item Value Reference Interpretation Comments [...] Capillary code = 9554) Performing Lab (test [facility] code = 93552) [facility] Cli nical Lab, [address] [facility] [place] [address]; Plant And Instrument Engineer: Guerline Olmstead MD; Waived Point of Care Testing - Luz Maria levi MD Lab Interpretation Abnormal (test code = 57652-0) [facility] Glucose [id number] 14:18:40 Test Item Value Reference Interpretation Comments [...] Capillary code = 9554) Performing Lab (test [facility] code = 09845) [facility] Cli nical Lab, [address], [place] [address]; Plant And Instrument Engineer: Guerline Olmstead MD; Waived Point of Care Testing - Luz Maria levi MD Lab Interpretation Abnormal (test code = 77937-9) [facility] Glucose [id number] 14:18:40 Test Item Value Reference Interpretation Comments [...] Capillary code = 9554) Performing Lab (test [facility] code = 68394) [facility], [address] [place] [address]; Plant And Instrument Engineer: Guerline Olmstead MD; Waived Point of Care Testing - Luz Maria levi MD Lab Interpretation Abnormal (test code = 78131-5) [facility] Cancer [facility] Glucose [id number] 14:18:40 Test Item Value Reference Interpretation Comments [...] te st results by core lab methodology. Il thod description: Al l results are charlene sured using Electrochemistr y test methodology. Th e glucose in the sample mixes with the reagents on the test strip. The reac tion produces an albert ctric current. The am ount of current prod uced is proportional to the glucose concentration i n the blood. PO Sample Type (test Capillary code = 9554) Performing Lab (test [facility] code = 69263) [facility] Cli nical Lab, [address] [facility], [place] [address]; Plant And Instrument Engineer: Guerline Olmstead MD; Waived Point of Care Testing - Luz Maria levi MD Lab Interpretation Abnormal (test code = 17066-5) [facility] Glucose [id number] 14:18:40 Test Item Value Reference Interpretation Comments [...] Capillary code = 9554) Performing Lab (test [facility] code = 90422) [facility] Cli nical Lab, [facility] [facility], [place] [address]; Plant And Instrument Engineer: Guerline Olmstead MD; Waived Point of Care Testing - Luz Maria levi MD Lab Interpretation Abnormal (test code = 48047-1) [facility] Glucose [id number] 14:18:40 Test Item Value Reference Interpretation Comments [...] Capillary code = 9554) Performing Lab (test [facility] code = 88570) [facility] Cli nical Lab, [address] [place] [address]; Plant And Instrument Engineer: Guerline Olmstead MD; Waived Point of Care Testing - Luz Maria levi MD Lab Interpretation Abnormal (test code = 76352-9) [facility] Glucose [id number] 14:18:40 Test Item Value Reference Interpretation Comments [...] Capillary code = 9554) Performing Lab (test [facility] code = 56801) [facility] Cli nical Lab, [address] [place] [address]; Plant And Instrument Engineer: Guerline Olmstead MD; Waived Point of Care Testing - Luz Maria levi MD Lab Interpretation Abnormal (test code = 75235-3) [facility] Glucose [id number] 14:18:40 Test Item Value Reference Interpretation Comments [...] Capillary code = 9554) Performing Lab (test [facility] code = 62004) [facility] Cli nical Lab, [address] [place] [address]; Plant And Instrument Engineer: Guerline Olmstead MD; Waived Point of Care Testing - Luz Maria levi MD Lab Interpretation Abnormal (test code = 90752-4) [facility] Glucose [id number] 14:18:40 Test Item Value Reference Interpretation Comments [...] te st results by core lab methodology. Il thod description: Al l results are charlene sured using Electrochemistr y test methodology. Th e glucose in the sample mixes with the reagents on the test strip. The reac tion produces an albert ctric current. The am ount of current prod uced is proportional to the glucose concentration i n the blood. PO Sample Type (test Capillary code = 9554) Performing Lab (test [facility] code = 70791) [facility] Cli nical Lab, [address], [place] [address]; Plant And Instrument Engineer: Guerline Olmstead MD; Waived Point of Care Testing - Luz Maria levi MD Lab Interpretation Abnormal (test code = 12397-4) [facility] Glucose [id number] 14:18:40 Test Item Value Reference Interpretation Comments [...] Capillary code = 9554) Performing Lab (test [facility] code = 30473) [facility] Cli nical Lab, [address], [place] [address]; Plant And Instrument Engineer: Guerline Olmstead MD; Waived Point of Care Testing - Luz Maria levi MD Lab Interpretation Abnormal (test code = 05081-2) [facility] with [id number] 13:45:09 Test Item Value Reference Range Interpretation Comments PT (test code = 12.6 See_Comment [Automated message] The 5902-2) system which ge nerated this result transmit eugene reference range : 11.9 - 14.1 second(s). The reference range was not used to interpr et this result as nehemiah l/abnormal. INR (test code = 0.94 0.89-1.10 6301-6) [facility] Center[facility] with [id number] 13:45:09 Test Item Value Reference Range Interpretation Comments PT (test code = 12.6 See_Comment [Automated message] The 5902-2) system which ge nerated this result transmit eugene reference range : 11.9 - 14.1 second(s). The reference range was not used to interpr et this result as nehemiah l/abnormal. INR (test code = 0.94 0.89-1.10 6301-6) [facility] Center[facility] Time with [id number] 13:45:09 Test Item Value Reference Range Interpretation Comments PT (test code = 12.6 See_Comment [Automated message] The 5902-2) system which ge nerated this result transmit eugene reference range : 11.9 - 14.1 second(s). The reference range was not used to interpr et this result as nehemiah l/abnormal. INR (test code = 0.94 0.89-1.10 6301-6) [facility] Center[facility] Time with [id number] 13:45:09 Test Item Value Reference Range Interpretation Comments PT (test code = 12.6 See_Comment [Automated message] The 5902-2) system which ge nerated this result transmit eugene reference range : 11.9 - 14.1 second(s). The reference range was not used to interpr et this result as nehemiah l/abnormal. INR (test code = 0.94 0.89-1.10 6301-6) [facility] CenterPro[facility] Time with [id number] 13:45:09 Test Item Value Reference Range Interpretation Comments PT (test code = 12.6 See_Comment [Automated message] The 5902-2) system which ge nerated this result transmit eugene reference range : 11.9 - 14.1 second(s). The reference range was not used to interpr et this result as nehemiah l/abnormal. INR (test code = 0.94 0.89-1.10 6301-6) [facility] CenterPro[facility] Time with [id number] 13:45:09 Test Item Value Reference Range Interpretation Comments PT (test code = 12.6 See_Comment [Automated message] The 5902-2) system which ge nerated this result transmit eugene reference range : 11.9 - 14.1 second(s). The reference range was not used to interpr et this result as nehemiah l/abnormal. INR (test code = 0.94 0.89-1.10 6301-6) [facility] CenterProth[facility] Time with [id number] 13:45:09 Test Item Value Reference Range Interpretation Comments PT (test code = 12.6 See_Comment [Automated message] The 5902-2) system which ge nerated this result transmit eugene reference range : 11.9 - 14.1 second(s). The reference range was not used to interpr et this result as nehemiah l/abnormal. INR (test code = 0.94 0.89-1.10 6301-6) [facility] CenterProth[facility] Time with [id number] 13:45:09 Test Item Value Reference Range Interpretation Comments PT (test code = 12.6 See_Comment [Automated message] The 5902-2) system which ge nerated this result transmit eugene reference range : 11.9 - 14.1 second(s). The reference range was not used to interpr et this result as nehemiah l/abnormal. INR (test code = 0.94 0.89-1.10 6301-6) [facility] CenterProthrom[facility] Time with [id number] 13:45:09 Test Item Value Reference Range Interpretation Comments PT (test code = 12.6 See_Comment [Automated message] The 5902-2) system which ge nerated this result transmit eugene reference range : 11.9 - 14.1 second(s). The reference range was not used to interpr et this result as nehemiah l/abnormal. INR (test code = 0.94 0.89-1.10 6301-6) [facility] CenterProth[facility] Time with [id number] 13:45:09 Test Item Value Reference Range Interpretation Comments PT (test code = 12.6 See_Comment [Automated message] The 5902-2) system which ge nerated this result transmit eugene reference range : 11.9 - 14.1 second(s). The reference range was not used to interpr et this result as nehemiah l/abnormal. INR (test code = 0.94 0.89-1.10 6301-6) [facility] CenterProthrom[facility] Time with [id number] 13:45:09 Test Item Value Reference Range Interpretation Comments PT (test code = 12.6 See_Comment [Automated message] The 5902-2) system which ge nerated this result transmit eugene reference range : 11.9 - 14.1 second(s). The reference range was not used to interpr et this result as nehemiah l/abnormal. INR (test code = 0.94 0.89-1.10 6301-6) [facility] CenterProthrom[facility] Time with [id number] 13:45:09 Test Item Value Reference Range Interpretation Comments PT (test code = 12.6 See_Comment [Automated message] The 5902-2) system which ge nerated this result transmit eugene reference range : 11.9 - 14.1 second(s). The reference range was not used to interpr et this result as nehemiah l/abnormal. INR (test code = 0.94 0.89-1.10 6301-6) [facility] CenterFractionated [id number] 13:42:56 Test Item Value Reference Range Interpretation [...] par ameters are outside rep ortable range [facility] CenterFractionated [id number] 13:42:56 Test Item Value Reference Range Interpretation Comments Bili Total (test 0.6 mg/dL <=1.2 Indocyanine Green (ICG) code = 1974-) may cause fal sely elevated biliru bin results. Total and direct bilirubin must not be measured from s amples containing indo cyanine green. False el evation of total bilirubin can be seen in patient s with IgG concentrations above 28 g/L. Bili Direct (test <=0.3 Indocyanin e Green (ICG) code = 1967-) may cause fal sely elevated biliru bin results. Total and direct bilirubin must not be measured from s amples containing indo cyanine green. Bili Indirect (test See Note 0.0-0.9 Unable t o calculate code = 1970-02) Indirect Bili dorsey result due to some par ameters are outside rep ortable range [facility] CenterFractionated [id number] 13:42:56 Test Item Value Reference Range Interpretation [...] par ameters are outside rep ortable range [facility] CenterFractionated [id number] 13:42:56 Test Item Value Reference Range Interpretation [...] par ameters are outside rep ortable range [facility] CenterFractionated [id number] 13:42:56 Test Item Value Reference Range Interpretation [...] par ameters are outside rep ortable range [facility] CenterFractionated [id number] 13:42:56 Test Item Value Reference Range Interpretation [...] par ameters are outside rep ortable range [facility] CenterFractionated [id number] 13:42:56 Test Item Value Reference Range Interpretation [...] <=0.3 Indocyanin e Green (ICG) code = 1968-7) may cause fal sely elevated biliru bin results. Total and direct bilirubin must not be measured from s amples containing indo cyanine green. Bili Indirect (test See Note 0.0-0.9 Unable t o calculate code = 1970-02) Indirect Bili dorsey result due to some par ameters are outside rep ortable range [facility] CenterGlomerular Filtration Rate 2022-04-02 13:42:54 Test Item Value Reference Range Interpretation Comments eGFR (test code = 143 See_Comment The eGFRcr is calculated with 06750-6) the 2020 CKD-EP I creatinine equation using [...] int erpret this result as nehemiah l/abnormal. [facility] CenterGlomerular Filtration Rate 2022-04-02 13:42:54 Test Item Value Reference Range Interpretation Comments eGFR (test code = 143 See_Comment The eGFRcr is calculated with 90950-4) the 2020 CKD-EP I creatinine equation using [...] int erpret this result as nehemiah l/abnormal. [facility] CenterGlomer[facility] Filtration Rate 2022-04-02 13:42:54 Test Item Value Reference Range Interpretation Comments eGFR (test code = 143 See_Comment The eGFRcr [place] 03203-3) the 2020 CKD-EP I creatinine equation using [...] CKD. [Automated mess age] The system which [employer] nerated this result transmit eugene reference range: >=60 mL/ min/1.73 sq. m. The referenc e range was not used to int erpret this result as nehemiah l/abnormal. [facility] CenterGlomer[facility] Filtration Rate 2022-04-02 13:42:54 Test Item Value Reference Range Interpretation Comments eGFR (test code = 143 See_Comment The eGFRcr is calculated with 40878-3) the 2020 CKD-EP I creatinine equation using [...] CKD. [Automated mess age] The system which [employer] nerated this result transmit eugene reference range: >=60 mL/ min/1.73 sq. m. The referenc e range was not used to int erpret this result as nehemiah l/abnormal. [facility] CenterGl[facility] Filtration Rate 2022-04-02 13:42:54 Test Item Value Reference Range Interpretation Comments eGFR (test code = 143 See_Comment The eGFRcr is calculated with 21003-5) the 2020 CKD-EP I creatinine equation using [...] CKD. [Automated mess age] The system which [employer] nerated this result transmit eugene reference range: >=60 mL/ min/1.73 sq. m. The referenc e range was not used to int erpret this result as nehemiah l/abnormal. [facility] CenterGlomer[facility] Filtration Rate 2022-04-02 13:42:54 Test Item Value Reference Range Interpretation Comments eGFR (test code = 143 See_Comment The eGFRcr is calculated with 14579-5) the 2020 CKD-EP I creatinine equation using [...] CKD. [Automated mess age] The system which [employer] nerated this result transmit eugene reference range: >=60 mL/ min/1.73 sq. m. The referenc e range was not used to int erpret this result as nehemiah l/abnormal. [facility] CenterGl[facility] Filtration Rate 2022-04-02 13:42:54 Test Item Value Reference Range Interpretation Comments eGFR (test code = 143 See_Comment The eGFRcr is calculated with 14329-5) the 2020 CKD-EP I creatinine equation using [...] CKD. [Automated mess age] The system which [employer] nerated this result transmit eugene reference range: >=60 mL/ min/1.73 sq. m. The referenc e range was not used to int erpret this result as nehemiah l/abnormal. [facility] CenterTotal [id number] 13:42:52 Test Item Value Reference Range Interpretation Comments Total Protein (test code = 2885-2) 6.8 g/dL 6.4-8.3 [facility] CenterTotal [id number] 13:42:52 Test Item Value Reference Range Interpretation Comments Total Protein (test code = 2885-2) 6.8 g/dL 6.4-8.3 [facility] CenterTotal [id number] 13:42:52 Test Item Value Reference Range Interpretation Comments Total Protein (test code = 2885-2) 6.8 g/dL 6.4-8.3 [facility] CenterTotal [id number] 13:42:52 Test Item Value Reference Range Interpretation Comments Total Protein (test code = 2885-2) 6.8 g/dL 6.4-8.3 [facility] CenterTotal [id number] 13:42:52 Test Item Value Reference Range Interpretation Comments Total Protein (test code = 2885-2) 6.8 g/dL 6.4-8.3 [facility] CenterTotal [id number] 13:42:52 Test Item Value Reference Range Interpretation Comments Total Protein (test code = 2885-2) 6.8 g/dL 6.4-8.3 [facility] CenterTotal [id number] 13:42:52 Test Item Value Reference Range Interpretation Comments Total Protein (test code = 2885-2) 6.8 g/dL 6.4-8.3 [facility] CenterPhosphorus [id number] 13:42:51 Test Item Value Reference Range Interpretation Comments Phosphorus (test code = 2777-1) 3.1 mg/dL 2.5-4.5 [facility] CenterPhosph[facility] [id number] 13:42:51 Test Item Value Reference Range Interpretation Comments Phosphorus (test code = 2777-1) 3.1 mg/dL 2.5-4.5 [facility] CenterPhosph[facility] [id number] 13:42:51 Test Item Value Reference Range Interpretation Comments Phosphorus (test code = 2777-1) 3.1 mg/dL 2.5-4.5 [facility] CenterPhosph[facility] [id number] 13:42:51 Test Item Value Reference Range Interpretation Comments Phosphorus (test code = 2777-1) 3.1 mg/dL 2.5-4.5 [facility] CenterPhosph[facility] [id number] 13:42:51 Test Item Value Reference Range Interpretation Comments Phosphorus (test code = 2777-1) 3.1 mg/dL 2.5-4.5 [facility] CenterPhosph[facility] [id number] 13:42:51 Test Item Value Reference Range Interpretation Comments Phosphorus (test code = 2777-1) 3.1 mg/dL 2.5-4.5 [facility] CenterPh[facility] [id number] 13:42:51 Test Item Value Reference Range Interpretation Comments Phosphorus (test code = 2777-1) 3.1 mg/dL 2.5-4.5 [facility] CenterPhosph[facility] [id number] 13:42:51 Test Item Value Reference Range Interpretation Comments Phosphorus (test code = 2777-1) 3.1 mg/dL 2.5-4.5 [facility] CenterPh[facility] [id number] 13:42:51 Test Item Value Reference Range Interpretation Comments Phosphorus (test code = 2777-1) 3.1 mg/dL 2.5-4.5 [facility] CenterPh[facility] [id number] 13:42:51 Test Item Value Reference Range Interpretation Comments Phosphorus (test code = 2777-1) 3.1 mg/dL 2.5-4.5 [facility] CenterPh[facility] [id number] 13:42:51 Test Item Value Reference Range Interpretation Comments Phosphorus (test code = 2777-1) 3.1 mg/dL 2.5-4.5 [facility] CenterPh[facility] [id number] 13:42:51 Test Item Value Reference Range Interpretation Comments Phosphorus (test code = 2777-1) 3.1 mg/dL 2.5-4.5 [facility] CenterMagnesium [id number] 13:42:50 Test Item Value Reference Range Interpretation Comments Magnesium (test code = 91946-1) 2.4 mg/dL 1.6-2.6 [facility] CenterMagn[facility] [id number] 13:42:50 Test Item Value Reference Range Interpretation Comments Magnesium (test code = 99553-5) 2.4 mg/dL 1.6-2.6 [facility] CenterMagn[facility] [id number] 13:42:50 Test Item Value Reference Range Interpretation Comments Magnesium (test code = 72449-7) 2.4 mg/dL 1.6-2.6 [facility] CenterMagn[facility] [id number] 13:42:50 Test Item Value Reference Range Interpretation Comments Magnesium (test code = 94962-2) 2.4 mg/dL 1.6-2.6 [facility] CenterMagn[facility] Egbaa1344-12-03 13:42:50 Test Item Value Reference Range Interpretation Comments Magnesium (test code = 77680-3) 2.4 mg/dL 1.6-2.6 [facility] CenterMagn[facility] [id number] 13:42:50 Test Item Value Reference Range Interpretation Comments Magnesium (test code = 95176-5) 2.4 mg/dL 1.6-2.6 [facility] CenterMagn[facility] [id number] 13:42:50 Test Item Value Reference Range Interpretation Comments Magnesium (test code = 82888-2) 2.4 mg/dL 1.6-2.6 [facility] CenterMagn[facility] [id number] 13:42:50 Test Item Value Reference Range Interpretation Comments Magnesium (test code = 72676-4) 2.4 mg/dL 1.6-2.6 [facility] CenterMagn[facility] [id number] 13:42:50 Test Item Value Reference Range Interpretation Comments Magnesium (test code = 53114-2) 2.4 mg/dL 1.6-2.6 [facility] CenterMagn[facility] [id number] 13:42:50 Test Item Value Reference Range Interpretation Comments Magnesium (test code = 46785-6) 2.4 mg/dL 1.6-2.6 [facility] CenterMagn[facility] Owfpo8462-50-37 13:42:50 Test Item Value Reference Range Interpretation Comments Magnesium (test code = 76934-6) 2.4 mg/dL 1.6-2.6 [facility] Center[facility] Mkhkj8949-18-07 13:42:50 Test Item Value Reference Range Interpretation Comments Magnesium (test code = 72590-3) 2.4 mg/dL 1.6-2.6 [facility] CenterAlbumin [id number] 13:42:49 Test Item Value Reference Range Interpretation Comments Albumin Lvl (test code 3.9 See_Comment [Aut omated message] The = 1750-08) system which ge nerated this result tra nsmitted reference range : 3.5 - 5.2 gm/dL. The refe rence range was not used to interpret this result as normal/abnormal . [facility] CenterAlbumin [id number] 13:42:49 Test Item Value Reference Range Interpretation Comments Albumin Lvl (test code 3.9 See_Comment [Aut omated message] The = 1750-08) system which ge nerated this result tra nsmitted reference range : 3.5 - 5.2 gm/dL. The refe rence range was not used to interpret this result as normal/abnormal . [facility] CenterAlbum[facility] [id number] 13:42:49 Test Item Value Reference Range Interpretation Comments Albumin Lvl (test code 3.9 See_Comment [Aut omated message] The = 1750-08) system which ge nerated this result tra nsmitted reference range : 3.5 - 5.2 gm/dL. The refe rence range was not used to interpret this result as normal/abnormal . [facility] CenterAlbum[facility] [id number] 13:42:49 Test Item Value Reference Range Interpretation Comments Albumin Lvl (test code 3.9 See_Comment [Aut omated message] The = 1750-08) system which ge nerated this result tra nsmitted reference range : 3.5 - 5.2 gm/dL. The refe rence range was not used to interpret this result as normal/abnormal . [facility] CenterAlbum[facility] [id number] 13:42:49 Test Item Value Reference Range Interpretation Comments Albumin Lvl (test code 3.9 See_Comment [Aut omated message] The = 1750-08) system which ge nerated this result tra nsmitted reference range : 3.5 - 5.2 gm/dL. The refe rence range was not used to interpret this result as normal/abnormal . [facility] CenterAlbum[facility] Semyx8444-06-04 13:42:49 Test Item Value Reference Range Interpretation Comments Albumin Lvl (test code 3.9 See_Comment [Aut omated message] The = 1750-08) system which ge nerated this result tra nsmitted reference range : 3.5 - 5.2 gm/dL. The refe rence range was not used to interpret this result as normal/abnormal . [facility] CenterAlbumin Oodte7655-15-05 13:42:49 Test Item Value Reference Range Interpretation Comments Albumin Lvl (test code 3.9 See_Comment [Aut omated message] The = 1751-7) system which ge nerated this result tra nsmitted reference range : 3.5 - 5.2 gm/dL. The refe rence range was not used to interpret this result as normal/abnormal . [facility] Bfghvqvawrq4867-65-40 13:42:48 Test Item Value Reference Range Interpretation Comments Alk Phos (test code = 6768-6) 93 U/L 35-104 [facility] Ddurlvxaqwr1588-48-34 13:42:48 Test Item Value Reference Range Interpretation Comments Alk Phos (test code = 6768-6) 93 U/L 35-104 [facility] Armtjcgzjbv5735-37-45 13:42:48 Test Item Value Reference Range Interpretation Comments Alk Phos (test code = 6768-6) 93 U/L 35-104 [facility] Fqcjletdodh6446-86-03 13:42:48 Test Item Value Reference Range Interpretation Comments Alk Phos (test code = 6768-6) 93 U/L 35-104 [facility] Jjfzeykdytw1237-33-41 13:42:48 Test Item Value Reference Range Interpretation Comments Alk Phos (test code = 6768-6) 93 U/L 35-104 [facility] Wokgwujqhhg4248-30-83 13:42:48 Test Item Value Reference Range Interpretation Comments Alk Phos (test code = 6768-6) 93 U/L 35-104 [facility] Jzptwmvmigl5352-86-51 13:42:48 Test Item Value Reference Range Interpretation Comments Alk Phos (test code = 6768-6) 93 U/L 35-104 [facility] CenterAspartate Aminotransferase 2022-04-02 13:42:47 Test Item Value Reference Range Interpretation Comments AST (test code = 1920-8) 31 U/L <=32 [facility] Center[facility] Aminotransferase 2022-04-02 13:42:47 Test Item Value Reference Range Interpretation Comments AST (test code = 1920-8) 31 U/L <=32 [facility] Center[facility] Aminotransferase 2022-04-02 13:42:47 Test Item Value Reference Range Interpretation Comments AST (test code = 1920-8) 31 U/L <=32 [facility] Center[facility] Aminotransferase 2022-04-02 13:42:47 Test Item Value Reference Range Interpretation Comments AST (test code = 1920-8) 31 U/L <=32 [facility] CenterAsp[facility] Aminotransferase 2022-04-02 13:42:47 Test Item Value Reference Range Interpretation Comments AST (test code = 1920-8) 31 U/L <=32 [facility] Center[facility] Aminotransferase 2022-04-02 13:42:47 Test Item Value Reference Range Interpretation Comments AST (test code = 1920-8) 31 U/L <=32 [facility] Center[facility] Aminotransferase 2022-04-02 13:42:47 Test Item Value Reference Range Interpretation Comments AST (test code = 1920-8) 31 U/L <=32 [place] 98798023-02-07 13:42:46 Test Item Value Reference Range Interpretation Comments ALT (test code = 1742-6) 37 U/L <=33 H Lab Interpretation (test code = Abnormal 61608-4) [facility] 13:42:46 Test Item Value Reference Range Interpretation Comments ALT (test code = 1742-6) 37 U/L <=33 H Lab Interpretation (test code = Abnormal 22516-9) [place] 98798023-02-07 13:42:46 Test Item Value Reference Range Interpretation Comments ALT (test code = 1742-6) 37 U/L <=33 H Lab Interpretation (test code = Abnormal 23312-3) [place] 98798023-02-07 13:42:46 Test Item Value Reference Range Interpretation Comments ALT (test code = 1742-6) 37 U/L <=33 H Lab Interpretation (test code = Abnormal 27348-1) [facility] 13:42:46 Test Item Value Reference Range Interpretation Comments ALT (test code = 1742-6) 37 U/L <=33 H Lab Interpretation (test code = Abnormal 79751-9) [facility] 13:42:46 Test Item Value Reference Range Interpretation Comments ALT (test code = 1742-6) 37 U/L <=33 H Lab Interpretation (test code = Abnormal 91788-5) [facility] 13:42:46 Test Item Value Reference Range Interpretation Comments ALT (test code = 1742-6) 37 U/L <=33 H Lab Interpretation (test code = Abnormal 18115-9) [facility] CenterElectrolyte Ovusl4428-63-28 13:42:45 Test Item Value Reference Range Interpretation [...] to interpret this result as normal/abnormal . [facility] CenterElectro[facility]te Zsyvl5603-96-62 13:42:45 Test Item Value Reference Range Interpretation [...] = 12 See_Comment [Aut omated message] The 61662-2) system which ge nerated this result tra nsmitted reference range : 4 - 14 mEq/L. The refe rence range was not u sed to interpret this result as normal/abnormal . [facility] CenterElectrolyte Zccrt5291-58-84 13:42:45 Test Item Value Reference Range Interpretation [...] to interpret this result as normal/abnormal . [facility] CenterElectro[facility] Kiyyj3309-67-29 13:42:45 Test Item Value Reference Range Interpretation [...] to interpret this result as normal/abnormal . [facility] CenterElectro[facility]te Ewvln5326-52-77 13:42:45 Test Item Value Reference Range Interpretation [...] to interpret this result as normal/abnormal . [facility] CenterElectro[facility] Lafvg6162-27-13 13:42:45 Test Item Value Reference Range Interpretation [...] to interpret this result as normal/abnormal . [facility] CenterElectro[facility]te Nkigt6551-20-01 13:42:45 Test Item Value Reference Range Interpretation [...] to interpret this result as normal/abnormal . [facility].Serum Ojyrgcbnta7685-99-44 13:42:44 Test Item Value Reference Range Interpretation Comments Creatinine (test code = 2160-0) 0.37 mg/dL 0.51-0.95 L Lab Interpretation (test code = Abnormal 05249-2) [facility].Serum Onmmvxmwhi1037-78-17 13:42:44 Test Item Value Reference Range Interpretation Comments Creatinine (test code = 2160-0) 0.37 mg/dL 0.51-0.95 L Lab Interpretation (test code = Abnormal 17186-1) [facility].Serum Gskkxiovow9677-77-66 13:42:44 Test Item Value Reference Range Interpretation Comments Creatinine (test code = 2160-0) 0.37 mg/dL 0.51-0.95 L Lab Interpretation (test code = Abnormal 11584-5) [facility].Serum Kppfllolrh9363-76-96 13:42:44 Test Item Value Reference Range Interpretation Comments Creatinine (test code = 2160-0) 0.37 mg/dL 0.51-0.95 L Lab Interpretation (test code = Abnormal 50902-0) [facility].Serum Eplknpchze0193-47-51 13:42:44 Test Item Value Reference Range Interpretation Comments Creatinine (test code = 2160-0) 0.37 mg/dL 0.51-0.95 L Lab Interpretation (test code = Abnormal 96299-9) [facility].Serum Egewigdzqm5418-86-73 13:42:44 Test Item Value Reference Range Interpretation Comments Creatinine (test code = 2160-0) 0.37 mg/dL 0.51-0.95 L Lab Interpretation (test code = Abnormal 14812-1) [facility].Serum Zwwwofpfzg3535-20-45 13:42:44 Test Item Value Reference Range Interpretation Comments Creatinine (test code = 2160-0) 0.37 mg/dL 0.51-0.95 L Lab Interpretation (test code = Abnormal 19443-7) [facility] CenterGlucose Qvena8352-00-55 13:42:43 Test Item Value Reference Range Interpretation [...] diabetes Lab Interpretation (test Abnormal code = 96846-4) [facility] CenterGlucose Pqexn8035-50-18 13:42:43 Test Item Value Reference Range Interpretation [...] diabetes Lab Interpretation (test Abnormal code = 59870-8) [facility] CenterGlucose Nnhfd9086-38-45 13:42:43 Test Item Value Reference Range Interpretation [...] diabetes Lab Interpretation (test Abnormal code = 60907-5) [facility] CenterGlucose Tlezs1865-54-38 13:42:43 Test Item Value Reference Range Interpretation [...] diabetes Lab Interpretation (test Abnormal code = 11673-4) [facility] CenterGlucose Pibct1191-48-29 13:42:43 Test Item Value Reference Range Interpretation [...] diabetes Lab Interpretation (test Abnormal code = 14870-4) [facility] CenterGlucose Bdhfa9515-79-86 13:42:43 Test Item Value Reference Range Interpretation [...] diabetes Lab Interpretation (test Abnormal code = 12332-3) [facility] CenterGlucose Cozms8248-12-31 13:42:43 Test Item Value Reference Range Interpretation [...] diabetes Lab Interpretation (test Abnormal code = 96936-9) [facility] CenterBUN[facility] 13:42:42 Test Item Value Reference Range Interpretation Comments BUN (test code = 3094-0) 15 mg/dL - [facility] CenterBUN[facility] 13:42:42 Test Item Value Reference Range Interpretation Comments BUN (test code = 3094-0) 15 mg/dL - [facility] CenterB[facility] 13:42:42 Test Item Value Reference Range Interpretation Comments BUN (test code = 3094-0) 15 mg/dL - [facility] 13:42:42 Test Item Value Reference Range Interpretation Comments BUN (test code = 3094-0) 15 mg/dL - [facility] CenterB[facility] 13:42:42 Test Item Value Reference Range Interpretation Comments BUN (test code = 3094-0) 15 mg/dL - [facility] CenterB[facility] 13:42:42 Test Item Value Reference Range Interpretation Comments BUN (test code = 3094-0) 15 mg/dL 6- [facility] CenterBUN20[facility] 13:42:42 Test Item Value Reference Range Interpretation Comments BUN (test code = 3094-0) 15 mg/dL 6- [facility] CenterCalcium Ionized, Mvprli9293-95-60 13:09:59 Test Item Value Reference Range Interpretation Comments V Ion Ca (test code = 06941-9) 1.13 mmol/L 1.15-1.29 L Lab Interpretation (test code = Abnormal 08021-0) [facility] CenterCalcium Ionized, Iqxcao1953-01-97 13:09:59 Test Item Value Reference Range Interpretation Comments V Ion Ca (test code = 49509-5) 1.13 mmol/L 1.15-1.29 L Lab Interpretation (test code = Abnormal 37420-6) [facility] CenterCalcium Ionized, Bpodqt5405-53-19 13:09:59 Test Item Value Reference Range Interpretation Comments V Ion Ca (test code = 10990-7) 1.13 mmol/L 1.15-1.29 L Lab Interpretation (test code = Abnormal 32507-3) [facility] CenterCalcium Ionized, Kaxvbb7548-93-17 13:09:59 Test Item Value Reference Range Interpretation Comments V Ion Ca (test code = 54995-0) 1.13 mmol/L 1.15-1.29 L Lab Interpretation (test code = Abnormal 86511-5) [facility] CenterCalcium Ionized, Ejdxea6858-03-16 13:09:59 Test Item Value Reference Range Interpretation Comments V Ion Ca (test code = 36842-4) 1.13 mmol/L 1.15-1.29 L Lab Interpretation (test code = Abnormal 71146-4) [facility] CenterCalcium Ionized, Xghjry8603-89-03 13:09:59 Test Item Value Reference Range Interpretation Comments V Ion Ca (test code = 53033-7) 1.13 mmol/L 1.15-1.29 L Lab Interpretation (test code = Abnormal 78044-8) [facility] CenterCalcium Ionized, Yuaton9041-64-88 13:09:59 Test Item Value Reference Range Interpretation Comments V Ion Ca (test code = 41574-3) 1.13 mmol/L 1.15-1.29 L Lab Interpretation (test code = Abnormal 90091-7) [facility] CenterCalcium Ionized, [id number] 13:09:59 Test Item Value Reference Range Interpretation Comments V Ion Ca (test code = 43411-1) 1.13 mmol/L 1.15-1.29 L Lab Interpretation (test code = Abnormal 81495-3) [facility] CenterCalcium Ionized, Kzhtgc2853-31-54 13:09:59 Test Item Value Reference Range Interpretation Comments V Ion Ca (test code = 15361-6) 1.13 mmol/L 1.15-1.29 L Lab Interpretation (test code = Abnormal 47040-2) [facility] CenterCalcium Ionized, Vdatvd4704-80-35 13:09:59 Test Item Value Reference Range Interpretation Comments V Ion Ca (test code = 90710-7) 1.13 mmol/L 1.15-1.29 L Lab Interpretation (test code = Abnormal 89392-4) [facility] CenterCalcium Ionized, [id number] 13:09:59 Test Item Value Reference Range Interpretation Comments V Ion Ca (test code = 22529-3) 1.13 mmol/L 1.15-1.29 L Lab Interpretation (test code = Abnormal 96362-9) [facility] CenterCalcium Ionized, Slyseo3168-28-30 13:09:59 Test Item Value Reference Range Interpretation Comments V Ion Ca (test code = 84183-0) 1.13 mmol/L 1.15-1.29 L Lab Interpretation (test code = Abnormal 79783-7) [facility] CenterHemoglobin [id number] 01:10:38 Test Item Value Reference Range Interpretation Comments A1C (test code = 4548-4) 8.4 % 4.3-5.6 H HbA 1c values >=6.5% are diagnostic of diabetes mellitus.Diagno sis should be confi rmed by repeat testing.Therape utic Action suggeste d: >8.0% HbA1c; Go al oftherapy: <7.0 % HbA1c Lab Interpretation (test Abnormal code = 86251-8) [facility] CenterHemoglobin [id number] 01:10:38 Test Item Value Reference Range Interpretation Comments A1C (test code = 4548-4) 8.4 % 4.3-5.6 H HbA 1c values >=6.5% are diagnostic of diabetes mellitus.Diagno sis should be confi rmed by repeat testing.Therape utic Action suggeste d: >8.0% HbA1c; Go al oftherapy: <7.0 % HbA1c Lab Interpretation (test Abnormal code = 79339-7) [facility] CenterHemoglobin [id number] 01:10:38 Test Item Value Reference Range Interpretation Comments A1C (test code = 4548-4) 8.4 % 4.3-5.6 H HbA 1c values >=6.5% are diagnostic of diabetes mellitus.Diagno sis should be confi rmed by repeat testing.Therape utic Action suggeste d: >8.0% HbA1c; Go al oftherapy: <7.0 % HbA1c Lab Interpretation (test Abnormal code = 74513-5) [facility] CenterHemoglobin [id number] 01:10:38 Test Item Value Reference Range Interpretation Comments A1C (test code = 4548-4) 8.4 % 4.3-5.6 H HbA 1c values >=6.5% are diagnostic of diabetes mellitus.Diagno sis should be confi rmed by repeat testing.Therape utic Action suggeste d: >8.0% HbA1c; Go al oftherapy: <7.0 % HbA1c Lab Interpretation (test Abnormal code = 47951-3) [facility] CenterHemoglobin [id number] 01:10:38 Test Item Value Reference Range Interpretation Comments A1C (test code = 4548-4) 8.4 % 4.3-5.6 H HbA 1c values >=6.5% are diagnostic of diabetes mellitus.Diagno sis should be confi rmed by repeat testing.Therape utic Action suggeste d: >8.0% HbA1c; Go al oftherapy: <7.0 % HbA1c Lab Interpretation (test Abnormal code = 98231-1) [facility] CenterHemoglobin [id number] 01:10:38 Test Item Value Reference Range Interpretation Comments A1C (test code = 4548-4) 8.4 % 4.3-5.6 H HbA 1c values >=6.5% are diagnostic of diabetes mellitus.Diagno sis should be confi rmed by repeat testing.Therape utic Action suggeste d: >8.0% HbA1c; Go al oftherapy: <7.0 % HbA1c Lab Interpretation (test Abnormal code = 48889-1) [facility] CenterHemoglobin [id number] 01:10:38 Test Item Value Reference Range Interpretation Comments A1C (test code = 4548-4) 8.4 % 4.3-5.6 H HbA 1c values >=6.5% are diagnostic of diabetes mellitus.Diagno sis should be confi rmed by repeat testing.Therape utic Action suggeste d: >8.0% HbA1c; Go al oftherapy: <7.0 % HbA1c Lab Interpretation (test Abnormal code = 77328-8) [facility] CenterHemoglobin [id number] 01:10:38 Test Item Value Reference Range Interpretation Comments A1C (test code = 4548-4) 8.4 % 4.3-5.6 H HbA 1c values >=6.5% are diagnostic of diabetes mellitus.Diagno sis should be confi rmed by repeat testing.Therape utic Action suggeste d: >8.0% HbA1c; Go al oftherapy: <7.0 % HbA1c Lab Interpretation (test Abnormal code = 71038-4) [facility] CenterHemoglobin [id number] 01:10:38 Test Item Value Reference Range Interpretation Comments A1C (test code = 4548-4) 8.4 % 4.3-5.6 H HbA 1c values >=6.5% are diagnostic of diabetes mellitus.Diagno sis should be confi rmed by repeat testing.Therape utic Action suggeste d: >8.0% HbA1c; Go al oftherapy: <7.0 % HbA1c Lab Interpretation (test Abnormal code = 54817-4) [facility] CenterHemoglobin [id number] 01:10:38 Test Item Value Reference Range Interpretation Comments A1C (test code = 4548-4) 8.4 % 4.3-5.6 H HbA 1c values >=6.5% are diagnostic of diabetes mellitus.Diagno sis should be confi rmed by repeat testing.Therape utic Action suggeste d: >8.0% HbA1c; Go al oftherapy: <7.0 % HbA1c Lab Interpretation (test Abnormal code = 43369-1) [facility] CenterHem[facility] [id number] 01:10:38 Test Item Value Reference Range Interpretation Comments A1C (test code = 4548-4) 8.4 % 4.3-5.6 H HbA 1c values >=6.5% are diagnostic of diabetes mellitus.Diagno sis should be confi rmed by repeat testing.Therape utic Action suggeste d: >8.0% HbA1c; Go al oftherapy: <7.0 % HbA1c Lab Interpretation (test Abnormal code = 43431-5) [facility] CenterH[facility] [id number] 01:10:38 Test Item Value Reference Range Interpretation Comments A1C (test code = 4548-4) 8.4 % 4.3-5.6 H HbA 1c values >=6.5% are diagnostic of diabetes mellitus.Diagno sis should be confi rmed by repeat testing.Therape utic Action suggeste d: >8.0% HbA1c; Go al oftherapy: <7.0 % HbA1c Lab Interpretation (test Abnormal code = 58154-1) [facility]On [facility] 2022-04-01 22:26:00 Test Item Value Reference Range Interpretation Comments Ordered (test code = 6568) Test Added Test Needed (test code = 7604) Hemoglobin A1c [facility] 2022-04-01 22:26:00 Test Item Value Reference Range Interpretation Comments Ordered (test code = 6568) Test Added Test Needed (test code = 7604) Hemoglobin A1c [facility] 2022-04-01 22:26:00 Test Item Value Reference Range Interpretation Comments Ordered (test code = 6568) Test Added Test Needed (test code = 7604) Hemoglobin A1c [facility] 2022-04-01 22:26:00 Test Item Value Reference Range Interpretation Comments Ordered (test code = 6568) Test Added Test Needed (test code = 7604) Hemoglobin A1c [facility] 2022-04-01 22:26:00 Test Item Value Reference Range Interpretation Comments Ordered (test code = 6568) Test Added Test Needed (test code = 7604) Hemoglobin A1c [facility] 2022-04-01 22:26:00 Test Item Value Reference Range Interpretation Comments Ordered (test code = 6568) Test Added Test Needed (test code = 7604) Hemoglobin A1c [facility] 2022-04-01 22:26:00 Test Item Value Reference Range Interpretation Comments Ordered (test code = 6568) Test Added Test Needed (test code = 7604) Hemoglobin A1c [facility] Laboratory Add-On Test 2022-04-01 22:26:00 Test Item Value Reference Range Interpretation Comments Ordered (test code = 6568) Test Added Test Needed (test code = 7604) Hemoglobin A1c [facility] 2022-04-01 22:26:00 Test Item Value Reference Range Interpretation Comments Ordered (test code = 6568) Test Added Test Needed (test code = 7604) Hemoglobin A1c [facility] 2022-04-01 22:26:00 Test Item Value Reference Range Interpretation Comments Ordered (test code = 6568) Test Added Test Needed (test code = 7604) Hemoglobin A1c [facility] 2022-04-01 22:26:00 Test Item Value Reference Range Interpretation Comments Ordered (test code = 6568) Test Added Test Needed (test code = 7604) Hemoglobin A1c [facility] Laboratory Add-On Test 2022-04-01 22:26:00 Test Item Value Reference Range Interpretation Comments Ordered (test code = 6568) Test Added Test Needed (test code = 7604) Hemoglobin A1c [facility] CenterBlood [id number] 21:53:52 Test Item Value Reference Range Interpretation Comments Final Report (test No growth code = 8488) Path Review - Immunity and antibiotic Bottle/Isolator use may render culture (test code = 8499) negative. Ongoing infection requires repeat culture. The results have been reviewed and electronically signed by Pathologist:Abiodun Vázquez MD, PhD #[id number] [facility]2023-02-06 21:53:52 Test Item Value Reference Range Interpretation Comments Final Report (test No growth code = 8488) Path Review - Immunity and antibiotic Bottle/Isolator use may render culture (test code = 8499) negative. Ongoing infection requires repeat culture. The results have been reviewed and electronically signed by Pathologist:Abiodun Vázquez MD, PhD #[id number] [facility]2023-02-06 21:53:52 Test Item Value Reference Range Interpretation Comments Final Report (test No growth code = 8488) Path Review - Immunity and antibiotic Bottle/Isolator use may render culture (test code = 8499) negative. Ongoing infection requires repeat culture. The results have been reviewed and electronically signed by Pathologist:Abiodun Vázquez MD, PhD #[id number] [facility]2023-02-06 21:53:52 Test Item Value Reference Range Interpretation Comments Final Report (test No growth code = 8488) Path Review - Immunity and antibiotic Bottle/Isolator use may render culture (test code = 8499) negative. Ongoing infection requires repeat culture. The results have been reviewed and electronically signed by Pathologist:Abiodun Vázquez MD, PhD #[id number] [facility]2023-02-06 21:53:52 Test Item Value Reference Range Interpretation Comments Final Report (test No growth code = 8488) Path Review - Immunity and antibiotic Bottle/Isolator use may render culture (test code = 8499) negative. Ongoing infection requires repeat culture. The results have been reviewed and electronically signed by Pathologist:Abiodun Vázquez MD, PhD #[id number] [facility]2023-02-06 21:53:52 Test Item Value Reference Range Interpretation Comments Final Report (test No growth code = 8488) Path Review - Immunity and antibiotic Bottle/Isolator use may render culture (test code = 8499) negative. Ongoing infection requires repeat culture. The results have been reviewed and electronically signed by Pathologist:Abiodun Vázquez MD, PhD #[id number] [facility]2023-02-06 21:53:52 Test Item Value Reference Range Interpretation Comments Final Report (test No growth code = 8488) Path Review - Immunity and antibiotic Bottle/Isolator use may render culture (test code = 8499) negative. Ongoing infection requires repeat culture. The results have been reviewed and electronically signed by Pathologist:Abiodun Vázquez MD, PhD #[id number] [facility]2023-02-06 21:53:52 Test Item Value Reference Range Interpretation Comments Final Report (test No growth code = 8488) Path Review - Immunity and antibiotic Bottle/Isolator use may render culture (test code = 8499) negative. Ongoing infection requires repeat culture. The results have been reviewed and electronically signed by Pathologist:Abiodun Vázquez MD, PhD #[id number] [facility]2023-02-06 21:53:52 Test Item Value Reference Range Interpretation Comments Final Report (test No growth code = 8488) Path Review - Immunity and antibiotic Bottle/Isolator use may render culture (test code = 8499) negative. Ongoing infection requires repeat culture. The results have been reviewed and electronically signed by Pathologist:Abiodun Vázquez MD, PhD #[id number] [facility]2023-02-06 21:53:52 Test Item Value Reference Range Interpretation Comments Final Report (test No growth code = 8488) Path Review - Immunity and antibiotic Bottle/Isolator use may render culture (test code = 8499) negative. Ongoing infection requires repeat culture. The results have been reviewed and electronically signed by Pathologist:Abiodun Vázquez MD, PhD #[id number] [facility]2023-02-06 21:53:52 Test Item Value Reference Range Interpretation Comments Final Report (test No growth code = 8488) Path Review - Immunity and antibiotic Bottle/Isolator use may render culture (test code = 8499) negative. Ongoing infection requires repeat culture. The results have been reviewed and electronically signed by Pathologist:Abiodun Vázquez MD, PhD #[id number] [facility]2023-02-06 21:53:52 Test Item Value Reference Range Interpretation Comments Final Report (test No growth code = 8488) Path Review - Immunity and antibiotic Bottle/Isolator use may render culture (test code = 8499) negative. Ongoing infection requires repeat culture. The results have been reviewed and electronically signed by Pathologist:Abiodun Vázquez MD, PhD #[id number] [facility] Interpretation Antibody Screen [id number] 19:22:14 Test Item Value Reference Range Interpretation Comments TMP Auto Neg At the present ABSC Interp time, patient (test code = plasma shows no ____MAYRIN C ORREA 7535) evidence of RBC MD LEIGH P hD - alloantibodies. [id number] d by: Teresa BENSON, PhD - [id number] D ate/Time: 04.01.2022 13:2 2 PM HISTORIC SITE ADMINISTRATOR Transcribed Chucky e/Time: 04.01.2022 13:2 2 PM CSTElectronical ly Signed By: VICKIE LEIGH MD, PhD - [id number] on 04.01.2022 1 3:22 PM [facility] Interpretation Antibody Screen [id number] 19:22:14 Test Item Value Reference Range Interpretation Comments TMP Auto Neg At the present ABSC Interp time, patient (test code = plasma shows no ____MAYRIN C ORREA 7535) evidence of RBC MD REESE P hD - alloantibodies. [id number] d by: Teresa BENSON, PhD - [id number] D ate/Time: 04.01.2022 13:2 2 PM HISTORIC SITE ADMINISTRATOR Transcribed Chucky e/Time: 04.01.2022 13:2 2 PM CSTElectronical ly Signed By: VICKIE LEIGH MD, PhD - [id number] on 04.01.2022 1 3:22 PM [facility] Interpretation Antibody Screen [id number] 19:22:14 Test Item Value Reference Range Interpretation Comments TMP Auto Neg At the present ABSC Interp time, patient (test code = plasma shows no ____MAYRIN C ORREA 7535) evidence of RBC MD REESE, P hD - alloantibodies. [id number] d by: Teresa BENSON, PhD - [id number] D ate/Time: 04.01.2022 13:2 2 PM HISTORIC SITE ADMINISTRATOR Transcribed Chucky e/Time: 04.01.2022 13:2 2 PM CSTElectronical ly Signed By: VICKIE LEIGH MD, PhD - [id number] on 04.01.2022 1 3:22 PM [facility] [id number] 19:22:14 Test Item Value Reference Range Interpretation Comments TMP Auto Neg At the present ABSC Interp time, patient (test code = plasma shows no ____MAYRIN C ORREA 7535) evidence of RBC MD REESE P hD - alloantibodies. [id number] d by: Teresa BENSON, PhD - [id number] D ate/Time: 04.01.2022 13:2 2 PM HISTORIC SITE ADMINISTRATOR Transcribed Chucky e/Time: 04.01.2022 13:2 2 PM CSTElectronical ly Signed By: VICKIE LEIGH MD, PhD - [id number] on 04.01.2022 1 3:22 PM [facility] [id number] 19:22:14 Test Item Value Reference Range Interpretation Comments TMP Auto Neg At the present ABSC Interp time, patient (test code = plasma shows no ____MAYRIN C ORREA 7535) evidence of RBC MD LEIGH P hD - alloantibodies. [id number] d by: Teresa BENSON, PhD - [id number] D ate/Time: 04.01.2022 13:2 2 PM HISTORIC SITE ADMINISTRATOR Transcribed Chucky e/Time: 04.01.2022 13:2 2 PM CSTElectronical ly Signed By: VICKIE LEIGH MD, PhD - [id number] on 04.01.2022 1 3:22 PM [facility] [id number] 19:22:14 Test Item Value Reference Range Interpretation Comments TMP Auto Neg At the present ABSC Interp time, patient (test code = plasma shows no ____MAYRIN C ORREA 7535) evidence of RBC MD LEIGH P hD - alloantibodies. [id number] d by: Teresa BENSON, PhD - [id number] D ate/Time: 04.01.2022 13:2 2 PM HISTORIC SITE ADMINISTRATOR Transcribed Chucky e/Time: 04.01.2022 13:2 2 PM CSTElectronical ly Signed By: VICKIE LEIGH MD, PhD - [id number] on 04.01.2022 1 3:22 PM [facility] [id number] 19:22:14 Test Item Value Reference Range Interpretation Comments TMP Auto Neg At the present ABSC Interp time, patient (test code = plasma shows no ____MAYRIN C ORREA 7535) evidence of TRISHA LEIGH MD, P hD - alloantibodies. [id number] d by: Teresa BENSNO, PhD - [id number] D ate/Time: 04.01.2022 13:2 2 PM HISTORIC SITE ADMINISTRATOR Transcribed Chucky e/Time: 04.01.2022 13:2 2 PM CSTElectronical ly Signed By: VICKIE LEIGH MD, PhD - [id number] on 04.01.2022 1 3:22 PM [facility] Interpretation Antibody Screen [id number] 19:22:14 Test Item Value Reference Range Interpretation Comments TMP Auto Neg At the present ABSC Interp time, patient (test code = plasma shows no ____MAYRIN C ORREA 7535) evidence of RBC MD REESE, P hD - alloantibodies. [id number] d by: Teresa BENSON, PhD - [id number] D ate/Time: 04.01.2022 13:2 2 PM HISTORIC SITE ADMINISTRATOR Transcribed Chucky e/Time: 04.01.2022 13:2 2 PM CSTElectronical ly Signed By: VICKIE LEIGH MD, PhD - [id number] on 04.01.2022 1 3:22 PM [facility] Interpretation Antibody Screen [id number] 19:22:14 Test Item Value Reference Range Interpretation Comments TMP Auto Neg At the present ABSC Interp time, patient (test code = plasma shows no ____MAYRIN C ORREA 7535) evidence of RBC MD REESE, P hD - alloantibodies. [id number] d by: Teresa BENSON, PhD - [id number] D ate/Time: 04.01.2022 13:2 2 PM HISTORIC SITE ADMINISTRATOR Transcribed Chucky e/Time: 04.01.2022 13:2 2 PM CSTElectronical ly Signed By: VICKIE LEIGH MD, PhD - [id number] on 04.01.2022 1 3:22 PM [facility] [id number] 19:22:14 Test Item Value Reference Range Interpretation Comments TMP Auto Neg At the present ABSC Interp time, patient (test code = plasma shows no ____MAYRIN C ORREA 7535) evidence of RBC MD REESE, P hD - alloantibodies. 58544Fzrpxkn d by: Teresa BENSON, PhD - [id number] D ate/Time: 04.01.2022 13:2 2 PM HISTORIC SITE ADMINISTRATOR Transcribed Chucky e/Time: 04.01.2022 13:2 2 PM CSTElectronical ly Signed By: VICKIE LEIGH MD, PhD - [id number] on 04.01.2022 1 3:22 PM [facility] Interpretation Antibody Screen [id number] 19:22:14 Test Item Value Reference Range Interpretation Comments TMP Auto Neg At the present ABSC Interp time, patient (test code = plasma shows no ____MAYRIN C ORREA 7535) evidence of RBC MD REESE P hD - alloantibodies. 57691Xqfrymx d by: Teresa BENSON, PhD - [id number] D ate/Time: 04.01.2022 13:2 2 PM HISTORIC SITE ADMINISTRATOR Transcribed Chucky e/Time: 04.01.2022 13:2 2 PM CSTElectronical ly Signed By: VICKIE LEIGH MD, PhD - [id number] on 04.01.2022 1 3:22 PM [facility] Interpretation Antibody Screen [id number] 19:22:14 Test Item Value Reference Range Interpretation Comments TMP Auto Neg At the present ABSC Interp time, patient (test code = plasma shows no ____VICKIE BENITEZ 7535) evidence of RBC MD REESE, P hD - alloantibodies. 67946Efnilfw d by: Teresa BENSON, PhD - [id number] D ate/Time: 04.01.2022 13:2 2 PM HISTORIC SITE ADMINISTRATOR Transcribed Chucky e/Time: 04.01.2022 13:2 2 PM CSTElectronical ly Signed By: VICKIE LEIGH MD, PhD - [id number] on 04.01.2022 1 3:22 PM [facility] [id number] 17:26:23 Test Item Value Reference Range Interpretation Comments ABSC. (test code = 890-4) Negative ABSC [facility] [id number] 17:26:23 Test Item Value Reference Range Interpretation Comments ABSC. (test code = 890-4) Negative [facility]SC [facility] [id number] 17:26:23 Test Item Value Reference Range Interpretation Comments ABSC. (test code = 890-4) Negative ABSC [facility] [place] [id number] 17:26:23 Test Item Value Reference Range Interpretation Comments ABSC. (test code = 890-4) Negative ABSC [facility] Ofietl1290-26-20 17:26:23 Test Item Value Reference Range Interpretation Comments ABSC. (test code = 890-4) Negative ABSC [facility] [id number] 17:26:23 Test Item Value Reference Range Interpretation Comments ABSC. (test code = 890-4) Negative ABSC [facility] [place] [id number] 17:26:23 Test Item Value Reference Range Interpretation Comments ABSC. (test code = 890-4) Negative ABSC [facility] [id number] 17:26:23 Test Item Value Reference Range Interpretation Comments ABSC. (test code = 890-4) Negative ABSC [facility] [id number] 17:26:23 Test Item Value Reference Range Interpretation Comments ABSC. (test code = 890-4) Negative ABSC [facility] [id number] 17:26:23 Test Item Value Reference Range Interpretation Comments ABSC. (test code = 890-4) Negative ABSC [facility] [id number] 17:26:23 Test Item Value Reference Range Interpretation Comments ABSC. (test code = 890-4) Negative ABSC [facility] Wypmos6838-18-07 17:26:23 Test Item Value Reference Range Interpretation Comments ABSC. (test code = 890-4) Negative ABSC [facility] 17:22:24 Test Item Value Reference Range Interpretation Comments ABORh. (test code = 882-1) A [place] [address]-02-06 17:22:24 Test Item Value Reference Range Interpretation Comments ABORh. (test code = 882-1) A POS [facility] 17:22:24 Test Item Value Reference Range Interpretation Comments ABORh. (test code = 882-1) [facility] 17:22:24 Test Item Value Reference Range Interpretation Comments ABORh. (test code = 882-1) [facility] 17:22:24 Test Item Value Reference Range Interpretation Comments ABORh. (test code = 882-1) A POS [facility] 17:22:24 Test Item Value Reference Range Interpretation Comments ABORh. (test code = 882-1) [facility] 17:22:24 Test Item Value Reference Range Interpretation Comments ABORh. (test code = 882-1) A [place] [address]-02-06 17:22:24 Test Item Value Reference Range Interpretation Comments ABORh. (test code = 882-1) A [place] [address]-02-06 17:22:24 Test Item Value Reference Range Interpretation Comments ABORh. (test code = 882-1) A POS [facility] 17:22:24 Test Item Value Reference Range Interpretation Comments ABORh. (test code = 882-1) A POS [facility] 17:22:24 Test Item Value Reference Range Interpretation Comments ABORh. (test code = 882-1) A POS [facility] 17:22:24 Test Item Value Reference Range Interpretation Comments ABORh. (test code = 882-1) A POS [facility] Center[facility] Expiration [id number] 17:21:57 Test Item Value Reference Range Interpretation Comments T & S Expiration (test code = 04/04/20225317) [facility] Ex[facility] [id number] 17:21:57 Test Item Value Reference Range Interpretation Comments T & S Expiration (test code = 04/04/20225317) [facility] Expiration [id number] 17:21:57 Test Item Value Reference Range Interpretation Comments T & S Expiration (test code = 04/04/20225317) [facility] Expiration [id number] 17:21:57 Test Item Value Reference Range Interpretation Comments T & S Expiration (test code = 04/04/20225317) [facility] Expiration [id number] 17:21:57 Test Item Value Reference Range Interpretation Comments T & S Expiration (test code = 04/04/20225317) [facility] Expiration [id number] 17:21:57 Test Item Value Reference Range Interpretation Comments T & S Expiration (test code = 04/04/20225317) [facility] Expiration [id number] 17:21:57 Test Item Value Reference Range Interpretation Comments T & S Expiration (test code = 04/04/20225317) [facility] Expiration [id number] 17:21:57 Test Item Value Reference Range Interpretation Comments T & S Expiration (test code = 04/04/20225317) [facility] Expiration [id number] 17:21:57 Test Item Value Reference Range Interpretation Comments T & S Expiration (test code = 04/04/20225317) [facility] Expiration [id number] 17:21:57 Test Item Value Reference Range Interpretation Comments T & S Expiration (test code = 04/04/20225317) [facility] Expiration [id number] 17:21:57 Test Item Value Reference Range Interpretation Comments T & S Expiration (test code = 04/04/20225317) [facility] Expiration [id number] 17:21:57 Test Item Value Reference Range Interpretation Comments T & S Expiration (test code = 04/04/20225317) [facility] [id number] 19:32:05 Test Item Value Reference Range Interpretation Comments POC Critical Comment See Note Test pe rformer notified (test code = 8955) Ordering Licensed Provider and /o r designee of POC Glucose Screen critical Results.. [facility] [id number] 19:32:05 Test Item Value Reference Range Interpretation Comments POC Critical Comment See Note Test pe rformer notified (test code = 8955) Ordering Licensed Provider and /o r designee of POC Glucose Screen critical Results.. [facility] Wdylwnqg9660-27-88 19:32:05 Test Item Value Reference Range Interpretation Comments POC Critical Comment See Note Test pe rformer notified (test code = 8955) Ordering Licensed Provider and /o r designee of POC Glucose Screen critical Results.. [facility] [id number] 19:32:05 Test Item Value Reference Range Interpretation Comments POC Critical Comment See Note Test pe rformer notified (test code = 8955) Ordering Licensed Provider and /o r designee of POC Glucose Screen critical Results.. [facility] Beavmtnd0670-33-69 19:32:05 Test Item Value Reference Range Interpretation Comments POC Critical Comment See Note Test pe rformer notified (test code = 8955) Ordering Licensed Provider and /o r designee of POC Glucose Screen critical Results.. [facility] [id number] 19:32:05 Test Item Value Reference Range Interpretation Comments POC Critical Comment See Note Test pe rformer notified (test code = 8955) Ordering Licensed Provider and /o r designee of POC Glucose Screen critical Results.. [facility] [id number] 19:32:05 Test Item Value Reference Range Interpretation Comments POC Critical Comment See Note Test pe rformer notified (test code = 8955) Ordering Licensed Provider and /o r designee of POC Glucose Screen critical Results.. [facility] Lhmgwaac0613-24-44 19:32:05 Test Item Value Reference Range Interpretation Comments POC Critical Comment See Note Test pe rformer notified (test code = 8955) Ordering Licensed Provider and /o r designee of POC Glucose Screen critical Results.. [facility] Fjgxhshd0302-75-35 19:32:05 Test Item Value Reference Range Interpretation Comments POC Critical Comment See Note Test pe rformer notified (test code = 8955) Ordering Licensed Provider and /o r designee of POC Glucose Screen critical Results.. [facility] Fnaskrdn0714-14-55 19:32:05 Test Item Value Reference Range Interpretation Comments POC Critical Comment See Note Test pe rformer notified (test code = 8955) Ordering Licensed Provider and /o r designee of POC Glucose Screen critical Results.. [facility] Sawfkqnh8936-40-97 19:32:05 Test Item Value Reference Range Interpretation Comments POC Critical Comment See Note Test pe rformer notified (test code = 8955) Ordering Licensed Provider and /o r designee of POC Glucose Screen critical Results.. [facility] [id number] 19:32:05 Test Item Value Reference Range Interpretation Comments POC Critical Comment See Note Test pe rformer notified (test code = 8955) Ordering Licensed Provider and /o r designee of POC Glucose Screen critical Results.. [facility] 14:24:17 Test Item Value Reference Range Interpretation Comments aPTT (test code = 27.7 See_Comment [Automate d message] The 70972-0) system which ge nerated this result transmit eugene reference range : 22.8 - 34.2 second(s). The reference range was not used to interpr et this result as nehemiah l/abnormal. [facility] 14:24:17 Test Item Value Reference Range Interpretation Comments aPTT (test code = 27.7 See_Comment [Automate d message] The 06156-0) system which ge nerated this result transmit eugene reference range : 22.8 - 34.2 second(s). The reference range was not used to interpr et this result as nehemiah l/abnormal. [facility] 14:24:17 Test Item Value Reference Range Interpretation Comments aPTT (test code = 27.7 See_Comment [Automate d message] The 16089-2) system which ge nerated this result transmit eugene reference range : 22.8 - 34.2 second(s). The reference range was not used to interpr et this result as nehemiah l/abnormal. [facility] 14:24:17 Test Item Value Reference Range Interpretation Comments aPTT (test code = 27.7 See_Comment [Automate d message] The 97230-2) system which ge nerated this result transmit eugene reference range : 22.8 - 34.2 second(s). The reference range was not used to interpr et this result as nehemiah l/abnormal. [facility] 14:24:17 Test Item Value Reference Range Interpretation Comments aPTT (test code = 27.7 See_Comment [Automate d message] The 72704-7) system which ge nerated this result transmit eugene reference range : 22.8 - 34.2 second(s). The reference range was not used to interpr et this result as nehemiah l/abnormal. [facility] 14:24:17 Test Item Value Reference Range Interpretation Comments aPTT (test code = 27.7 See_Comment [Automate d message] The 80187-1) system which ge nerated this result transmit eugene reference range : 22.8 - 34.2 second(s). The reference range was not used to interpr et this result as nehemiah l/abnormal. [facility] 14:24:17 Test Item Value Reference Range Interpretation Comments aPTT (test code = 27.7 See_Comment [Automate d message] The 41984-3) system which ge nerated this result transmit eugene reference range : 22.8 - 34.2 second(s). The reference range was not used to interpr et this result as nehemiah l/abnormal. [facility] 14:24:17 Test Item Value Reference Range Interpretation Comments aPTT (test code = 27.7 See_Comment [Automate d message] The 61082-4) system which ge nerated this result transmit eugene reference range : 22.8 - 34.2 second(s). The reference range was not used to interpr et this result as nehemiah l/abnormal. [facility] 14:24:17 Test Item Value Reference Range Interpretation Comments aPTT (test code = 27.7 See_Comment [Automate d message] The 08526-2) system which ge nerated this result transmit eugene reference range : 22.8 - 34.2 second(s). The reference range was not used to interpr et this result as nehemiah l/abnormal. [facility] 14:24:17 Test Item Value Reference Range Interpretation Comments aPTT (test code = 27.7 See_Comment [Automate d message] The 87910-1) system which ge nerated this result transmit eugene reference range : 22.8 - 34.2 second(s). The reference range was not used to interpr et this result as nehemiah l/abnormal. [facility] 14:24:17 Test Item Value Reference Range Interpretation Comments aPTT (test code = 27.7 See_Comment [Automate d message] The 98454-6) system which ge nerated this result transmit eugene reference range : 22.8 - 34.2 second(s). The reference range was not used to interpr et this result as nehemiah l/abnormal. [facility] 14:24:17 Test Item Value Reference Range Interpretation Comments aPTT (test code = 27.7 See_Comment [Automate d message] The 62636-5) system which ge nerated this result transmit eugene reference range : 22.8 - 34.2 second(s). The reference range was not used to interpr et this result as nehemiah l/abnormal. [facility] CenterL[facility] Acid, [id number] 16:29:18 Test Item Value Reference Range Interpretation Comments V Lactate (test code = 2519-7) 0.9 mmol/L 0.5-1.6 [facility] Center[facility], [id number] 16:29:18 Test Item Value Reference Range Interpretation Comments V Lactate (test code = 2519-7) 0.9 mmol/L 0.5-1.6 [facility] CenterL[facility] Acid, [id number] 16:29:18 Test Item Value Reference Range Interpretation Comments V Lactate (test code = 2519-7) 0.9 mmol/L 0.5-1.6 [facility] Center[facility], [id number] 16:29:18 Test Item Value Reference Range Interpretation Comments V Lactate (test code = 2519-7) 0.9 mmol/L 0.5-1.6 [facility] CenterL[facility] Acid, [id number] 16:29:18 Test Item Value Reference Range Interpretation Comments V Lactate (test code = 2519-7) 0.9 mmol/L 0.5-1.6 [facility] CenterL[facility] Acid, [id number] 16:29:18 Test Item Value Reference Range Interpretation Comments V Lactate (test code = 2519-7) 0.9 mmol/L 0.5-1.6 [facility] CenterL[facility] Acid, [id number] 16:29:18 Test Item Value Reference Range Interpretation Comments V Lactate (test code = 2519-7) 0.9 mmol/L 0.5-1.6 [facility] CenterL[facility] Acid, [id number] 16:29:18 Test Item Value Reference Range Interpretation Comments V Lactate (test code = 2519-7) 0.9 mmol/L 0.5-1.6 [facility] CenterL[facility] Acid, [id number] 16:29:18 Test Item Value Reference Range Interpretation Comments V Lactate (test code = 2519-7) 0.9 mmol/L 0.5-1.6 [facility] CenterL[facility] Acid, [id number] 16:29:18 Test Item Value Reference Range Interpretation Comments V Lactate (test code = 2519-7) 0.9 mmol/L 0.5-1.6 [facility] CenterL[facility] Acid, [id number] 16:29:18 Test Item Value Reference Range Interpretation Comments V Lactate (test code = 2519-7) 0.9 mmol/L 0.5-1.6 [facility] CenterL[facility] Acid, [id number] 16:29:18 Test Item Value Reference Range Interpretation Comments V Lactate (test code = 2519-7) 0.9 mmol/L 0.5-1.6 [facility]ABG[facility] 16:28:43 Test Item Value Reference Range Interpretation Comments pH Art (test code = 7.49 7.35-7.45 H Results are 2744-1) corrected for a body temp of 37C. pCO2 Art (test code = 37.7 See_Comment [Auto mated message] 2018-09) The system [employer] generated this result transmit eugene reference range : 32.0 - 45.0 mmH g. The reference r ashley was not used to interpret this result as normal/abnormal . pO2 Art (test code = 96 See_Comment [Autom ated message] 0367) The system [employer] generated this result transmit eugene reference range : 83 - 108 mmHg. The reference range was not used to interpret this result as normal/abnormal . HCO3 Art (test code = 28 mmol/L -1959-) Base Excess Art (test 5 mmol/L -2-3 H code = 1925-7) O2 Sat Art (test code = 97 % 95-99 2708-6) Lab Interpretation (test Abnormal code = 87083-1) [facility] OkmmgdSZB9613-93-20 16:28:43 Test Item Value Reference Range Interpretation Comments pH Art (test code = 7.49 7.35-7.45 H Results are 2744-1) corrected for a body temp of 37C. pCO2 Art (test code = 37.7 See_Comment [Auto mated message] 2018-09) The system [employer] generated this result transmit eugene reference range : 32.0 - 45.0 mmH g. The reference r ashley was not used to interpret this result as normal/abnormal . pO2 Art (test code = 96 See_Comment [Autom ated message] 27037) The system [employer] generated this result transmit eugene reference range : 83 - 108 mmHg. The reference range was not used to interpret this result as normal/abnormal . HCO3 Art (test code = 28 mmol/L -1959-) Base Excess Art (test 5 mmol/L -2-3 H code = 1924-7) O2 Sat Art (test code = 97 % 95-99 2708-6) Lab Interpretation (test Abnormal code = 48070-2) [facility] RxjfjaXYT6090-07-67 16:28:43 Test Item Value Reference Range Interpretation Comments pH Art (test code = 7.49 7.35-7.45 H Results are 2744-1) corrected for a body temp of 37C. pCO2 Art (test code = 37.7 See_Comment [Auto mated message] 2018-09) The system [employer] generated this result transmit eugene reference range : 32.0 - 45.0 mmH g. The reference r ashley was not used to interpret this result as normal/abnormal . pO2 Art (test code = 96 See_Comment [Autom ated message] 2703-7) The system [employer] generated this result transmit eugene reference range : 83 - 108 mmHg. The reference range was not used to interpret this result as normal/abnormal . HCO3 Art (test code = 28 mmol/L -1959-) Base Excess Art (test 5 mmol/L -2-3 H code = 1925-7) O2 Sat Art (test code = 97 % 95-99 2708-6) Lab Interpretation (test Abnormal code = 72890-5) [facility] Test Item Value Reference Range Interpretation Comments pH Art (test code = 7.49 7.35-7.45 H Results are 2744-1) corrected for a body temp of 37C. pCO2 Art (test code = 37.7 See_Comment [Auto mated message] 2018-09) The system [employer] generated this result transmit eugene reference range : 32.0 - 45.0 mmH g. The reference r ashley was not used to interpret this result as normal/abnormal . pO2 Art (test code = 96 See_Comment [Autom ated message] 3087) The system [employer] generated this result transmit eugene reference range : 83 - 108 mmHg. The reference range was not used to interpret this result as normal/abnormal . HCO3 Art (test code = 28 mmol/L 1959-05) Base Excess Art (test 5 mmol/L -2-3 H code = 1925-7) O2 Sat Art (test code = 97 % 95-99 2708-6) Lab Interpretation (test Abnormal code = 25009-6) [facility]28:43 Test Item Value Reference Range Interpretation Comments pH Art (test code = 7.49 7.35-7.45 H Results are 2744-1) corrected for a body temp of 37C. pCO2 Art (test code = 37.7 See_Comment [Auto mated message] 2018-09) The system [employer] generated this result transmit eugene reference range : 32.0 - 45.0 mmH g. The reference r ashley was not used to interpret this result as normal/abnormal . pO2 Art (test code = 96 See_Comment [Autom ated message] 4157) The system [employer] generated this result transmit eugene reference range : 83 - 108 mmHg. The reference range was not used to interpret this result as normal/abnormal . HCO3 Art (test code = 28 mmol/L 1959-05) Base Excess Art (test 5 mmol/L -2-3 H code = 1925-7) O2 Sat Art (test code = 97 % 95-99 2708-6) Lab Interpretation (test Abnormal code = 03374-5) [facility] 16:28:43 Test Item Value Reference Range Interpretation Comments pH Art (test code = 7.49 7.35-7.45 H Results are 2744-1) corrected for a body temp of 37C. pCO2 Art (test code = 37.7 See_Comment [Auto mated message] 2018-09) The system [employer] generated this result transmit eugene reference range : 32.0 - 45.0 mmH g. The reference r ashley was not used to interpret this result as normal/abnormal . pO2 Art (test code = 96 See_Comment [Autom ated message] 3433-7) The system [employer] generated this result transmit eugene reference range : 83 - 108 mmHg. The reference range was not used to interpret this result as normal/abnormal . HCO3 Art (test code = 28 mmol/L 1959-05) Base Excess Art (test 5 mmol/L -2-3 H code = 1925-7) O2 Sat Art (test code = 97 % 95-99 2708-6) Lab Interpretation (test Abnormal code = 98215-0) [facility] 16:28:43 Test Item Value Reference Range Interpretation Comments pH Art (test code = 7.49 7.35-7.45 H Results are 2744-1) corrected for a body temp of 37C. pCO2 Art (test code = 37.7 See_Comment [Auto mated message] 2018-09) The system [employer] generated this result transmit eugene reference range : 32.0 - 45.0 mmH g. The reference r ashley was not used to interpret this result as normal/abnormal . pO2 Art (test code = 96 See_Comment [Autom ated message] 77437) The system [employer] generated this result transmit eugene reference range : 83 - 108 mmHg. The reference range was not used to interpret this result as normal/abnormal . HCO3 Art (test code = 28 mmol/L 1959-05) Base Excess Art (test 5 mmol/L -2-3 H code = 1925-7) O2 Sat Art (test code = 97 % 95-99 2708-6) Lab Interpretation (test Abnormal code = 58653-3) [facility] 16:28:43 Test Item Value Reference Range Interpretation Comments pH Art (test code = 7.49 7.35-7.45 H Results are 2744-1) corrected for a body temp of 37C. pCO2 Art (test code = 37.7 See_Comment [Auto mated message] 2018-09) The system [employer] generated this result transmit eugene reference range : 32.0 - 45.0 mmH g. The reference r ashley was not used to interpret this result as normal/abnormal . pO2 Art (test code = 96 See_Comment [Autom ated message] 2702-08) The system [employer] generated this result transmit eugene reference range : 83 - 108 mmHg. The reference range was not used to interpret this result as normal/abnormal . HCO3 Art (test code = 28 mmol/L 1959-05) Base Excess Art (test 5 mmol/L -2-3 H code = 192-7) O2 Sat Art (test code = 97 % 95-99 2708-6) Lab Interpretation (test Abnormal code = 47348-9) [facility] 16:28:43 Test Item Value Reference Range Interpretation Comments pH Art (test code = 7.49 7.35-7.45 H Results are 2744-1) corrected for a body temp of 37C. pCO2 Art (test code = 37.7 See_Comment [Auto mated message] 2018-09) The system [employer] generated this result transmit eugene reference range : 32.0 - 45.0 mmH g. The reference r ashley was not used to interpret this result as normal/abnormal . pO2 Art (test code = 96 See_Comment [Autom ated message] 2702-08) The system [employer] generated this result transmit eugene reference range : 83 - 108 mmHg. The reference range was not used to interpret this result as normal/abnormal . HCO3 Art (test code = 28 mmol/L 1959-05) Base Excess Art (test 5 mmol/L -2-3 H code = 192-7) O2 Sat Art (test code = 97 % 95-99 2708-6) Lab Interpretation (test Abnormal code = 14929-7) [facility] 16:28:43 Test Item Value Reference Range Interpretation Comments pH Art (test code = 7.49 7.35-7.45 H Results are 2744-1) corrected for a body temp of 37C. pCO2 Art (test code = 37.7 See_Comment [Auto mated message] 2018-09) The system [employer] generated this result transmit eugene reference range : 32.0 - 45.0 mmH g. The reference r ashley was not used to interpret this result as normal/abnormal . pO2 Art (test code = 96 See_Comment [Autom ated message] 2702-08) The system [employer] generated this result transmit eugene reference range : 83 - 108 mmHg. The reference range was not used to interpret this result as normal/abnormal . HCO3 Art (test code = 28 mmol/L 1959-) Base Excess Art (test 5 mmol/L -2-3 H code = 192-7) O2 Sat Art (test code = 97 % 95-99 2708-6) Lab Interpretation (test Abnormal code = 91694-9) [facility] 16:28:43 Test Item Value Reference Range Interpretation Comments pH Art (test code = 7.49 7.35-7.45 H Results are 2744-1) corrected for a body temp of 37C. pCO2 Art (test code = 37.7 See_Comment [Auto mated message] 2018-09) The system [employer] generated this result transmit eugene reference range : 32.0 - 45.0 mmH g. The reference r ashley was not used to interpret this result as normal/abnormal . pO2 Art (test code = 96 See_Comment [Autom ated message] 2702-08) The system [employer] generated this result transmit eugene reference range : 83 - 108 mmHg. The reference range was not used to interpret this result as normal/abnormal . HCO3 Art (test code = 28 mmol/L 1959-) Base Excess Art (test 5 mmol/L -2-3 H code = 1924-7) O2 Sat Art (test code = 97 % 95-99 2708-6) Lab Interpretation (test Abnormal code = 50473-1) [facility] 16:28:43 Test Item Value Reference Range Interpretation Comments pH Art (test code = 7.49 7.35-7.45 H Results are 2744-1) corrected for a body temp of 37C. pCO2 Art (test code = 37.7 See_Comment [Auto mated message] 2018-09) The system [employer] generated this result transmit eugene reference range : 32.0 - 45.0 mmH g. The reference r ashley was not used to interpret this result as normal/abnormal . pO2 Art (test code = 96 See_Comment [Autom ated message] 2702-08) The system [employer] generated this result transmit eugene reference range : 83 - 108 mmHg. The reference range was not used to interpret this result as normal/abnormal . HCO3 Art (test code = 28 mmol/L 21-28 1959-) Base Excess Art (test 5 mmol/L -2-3 H code = 1925-7) O2 Sat Art (test code = 97 % 95-99 8-6) Lab Interpretation (test Abnormal code = 78936-0) [facility] Screening Nnmlgdl7991-82-37 01:26:33 Test Item Value Reference Range Interpretation Comments Final Report (test No Methicillin resistant code = 8488) Staphylococcus aureus isolated. Path Review (test The results have been code = 8492) reviewed and electronically signed by Pathologist:NORMAN CAMARILLO MD #[id number] [facility] Screening Zkvskpa2125-03-96 01:26:33 Test Item Value Reference Range Interpretation Comments Final Report (test No Methicillin resistant code = 8488) Staphylococcus aureus isolated. Path Review (test The results have been code = 8492) reviewed and electronically signed by Pathologist:NORMAN CAMARILLO MD #[id number] [facility] Screening Pccronb3992-78-41 01:26:33 Test Item Value Reference Range Interpretation Comments Final Report (test No Methicillin resistant code = 8488) Staphylococcus aureus isolated. Path Review (test The results have been code = 8492) reviewed and electronically signed by Pathologist:NORMAN CAMARILLO MD #[id number] [facility] Screening Hocvoey3757-48-24 01:26:33 Test Item Value Reference Range Interpretation Comments Final Report (test No Methicillin resistant code = 8488) Staphylococcus aureus isolated. Path Review (test The results have been code = 8492) reviewed and electronically signed by Pathologist:NORMAN CAMARILLO MD #[id number] [facility] Screening Sayermz1542-19-76 01:26:33 Test Item Value Reference Range Interpretation Comments Final Report (test No Methicillin resistant code = 8488) Staphylococcus aureus isolated. Path Review (test The results have been code = 8492) reviewed and electronically signed by Pathologist:NORMAN CAMARILLO MD #[id number] [facility] Screening Wdvhwlv7736-94-66 01:26:33 Test Item Value Reference Range Interpretation Comments Final Report (test No Methicillin resistant code = 8488) Staphylococcus aureus isolated. Path Review (test The results have been code = 8492) reviewed and electronically signed by Pathologist:NORAMN CAMARILLO MD #[id number] [facility] Screening Ykvkdhz0060-11-43 01:26:33 Test Item Value Reference Range Interpretation Comments Final Report (test No Methicillin resistant code = 8488) Staphylococcus aureus isolated. Path Review (test The results have been code = 8492) reviewed and electronically signed by Pathologist:NORMAN CAMARILLO MD #[id number] [facility] Screening Jtjufqi5960-17-50 01:26:33 Test Item Value Reference Range Interpretation Comments Final Report (test No Methicillin resistant code = 8488) Staphylococcus aureus isolated. Path Review (test The results have been code = 8492) reviewed and electronically signed by Pathologist:NORMAN CAMARILLO MD #[id number] [facility] Screening Jgxtkrf1836-12-49 01:26:33 Test Item Value Reference Range Interpretation Comments Final Report (test No Methicillin resistant code = 8488) Staphylococcus aureus isolated. Path Review (test The results have been code = 8492) reviewed and electronically signed by Pathologist:NORMAN CAMARILLO MD #[id number] [facility] Screening Ugskzst6454-78-00 01:26:33 Test Item Value Reference Range Interpretation Comments Final Report (test No Methicillin resistant code = 8488) Staphylococcus aureus isolated. Path Review (test The results have been code = 8492) reviewed and electronically signed by Pathologist:NORMAN CAMARILLO MD #[id number] [facility] Screening Iopdsky6232-15-19 01:26:33 Test Item Value Reference Range Interpretation Comments Final Report (test No Methicillin resistant code = 8488) Staphylococcus aureus isolated. Path Review (test The results have been code = 8492) reviewed and electronically signed by Pathologist:NORMAN CAMARILLO MD #[id number] [facility] Zfugphv1277-25-87 01:26:33 Test Item Value Reference Range Interpretation Comments Final Report (test No Methicillin resistant code = 8488) Staphylococcus aureus isolated. Path Review (test The results have been code = 8492) reviewed and electronically signed by Pathologist:NORMAN CAMARILLO MD #[id number] [facility]/Gram Aqedj3706-93-64 01:26:32 Test Item Value Reference Range Interpretation Comments Final Report (test No growth code = 8488) Path Review (test The results have been code = 8492) reviewed and electronically signed by Pathologist:NORMAN CAMARILLO MD #[id number] Gram Stain Report Few WBC's seenNo organisms (test code = seen. 21618-8) [facility] Respiratory Culture w/Gram Xorzo3153-72-49 01:26:32 Test Item Value Reference Range Interpretation Comments Final Report (test No growth code = 8488) Path Review (test The results have been code = 8492) reviewed and electronically signed by Pathologist:NORMAN CAMARILLO MD #[id number] Gram Stain Report Few WBC's seenNo organisms (test code = seen. 13908-5) [facility] Respiratory Culture w/Gram Yaipr2043-73-17 01:26:32 Test Item Value Reference Range Interpretation Comments Final Report (test No growth code = 8488) Path Review (test The results have been code = 8492) reviewed and electronically signed by Pathologist:NORMAN CAMARILLO MD #[id number] Gram Stain Report Few WBC's seenNo organisms (test code = seen. 54511-7) [facility] Respiratory Culture w/Gram Dzhfs5086-08-63 01:26:32 Test Item Value Reference Range Interpretation Comments Final Report (test No growth code = 8488) Path Review (test The results have been code = 8492) reviewed and electronically signed by Pathologist:NORMAN CAMARILLO MD #[id number] Gram Stain Report Few WBC's seenNo organisms (test code = seen. 97948-7) [facility] Respiratory Culture w/Gram Rjrwy7541-68-09 01:26:32 Test Item Value Reference Range Interpretation Comments Final Report (test No growth code = 8488) Path Review (test The results have been code = 8492) reviewed and electronically signed by Pathologist:NORMAN CAMARILLO MD #[id number] Gram Stain Report Few WBC's seenNo organisms (test code = seen. 82877-2) [facility] Respiratory Culture w/Gram Upslo5826-10-12 01:26:32 Test Item Value Reference Range Interpretation Comments Final Report (test No growth code = 8488) Path Review (test The results have been code = 8492) reviewed and electronically signed by Pathologist:NORMAN CAMARILLO MD #[id number] Gram Stain Report Few WBC's seenNo organisms (test code = seen. 29523-4) [facility] Respiratory Culture w/Gram Ahrub3547-22-71 01:26:32 Test Item Value Reference Range Interpretation Comments Final Report (test No growth code = 8488) Path Review (test The results have been code = 8492) reviewed and electronically signed by Pathologist:NORMAN CAMARILLO MD #[id number] Gram Stain Report Few WBC's seenNo organisms (test code = seen. 52325-3) [facility] Respiratory Culture w/Gram Bzwpn0929-31-71 01:26:32 Test Item Value Reference Range Interpretation Comments Final Report (test No growth code = 8488) Path Review (test The results have been code = 8492) reviewed and electronically signed by Pathologist:NORMAN CAMARILLO MD #[id number] Gram Stain Report Few WBC's seenNo organisms (test code = seen. 66862-3) [facility] Respiratory Culture w/Gram Iattp3399-84-04 01:26:32 Test Item Value Reference Range Interpretation Comments Final Report (test No growth code = 8488) Path Review (test The results have been code = 8492) reviewed and electronically signed by Pathologist:NORMAN CAMARILLO MD #[id number] Gram Stain Report Few WBC's seenNo organisms (test code = seen. 39258-2) [facility] Respiratory Culture w/Gram Kqvac1995-38-72 01:26:32 Test Item Value Reference Range Interpretation Comments Final Report (test No growth code = 8488) Path Review (test The results have been code = 8492) reviewed and electronically signed by Pathologist:NORMAN CAMARILLO MD #[id number] Gram Stain Report Few WBC's seenNo organisms (test code = seen. 70569-1) [facility]/Gram Fysqm9222-21-01 01:26:32 Test Item Value Reference Range Interpretation Comments Final Report (test No growth code = 8488) Path Review (test The results have been code = 8492) reviewed and electronically signed by Pathologist:NORMAN CAMARILLO MD #[id number] Gram Stain Report Few WBC's seenNo organisms (test code = seen. 47324-1) [facility] Respiratory Culture w/Gram Xewth6463-77-14 01:26:32 Test Item Value Reference Range Interpretation Comments Final Report (test No growth code = 8488) Path Review (test The results have been code = 8492) reviewed and electronically signed by Pathologist:NORMAN CAMARILLO MD #[id number] Gram Stain Report Few WBC's seenNo organisms (test code = seen. 88105-7) [facility] Draw before dose due at 1230 [...] code previous dos e is not = 36607-3) availablefor th is sample. The chucky e reported is the samplecollectio n date. Vanco Tr Dose 03/28/2022 Level, date, a nd time of Date (test code previous dos e is not = 89314-4) availablefor th is sample. The chucky e reported is the samplecollectio n date. CHANDRAKANT (test code Draw before = CHANDRAKANT) dose due at 1230 today. [facility] Draw before dose due at 1230 [...] code previous dos e is not = 48260-2) availablefor is sample. The chucky e reported is the samplecollectio n date. Vanco Tr Dose 03/28/2022 Level, date, a nd time of Date (test code previous dos e is not = 84201-5) availablefor is sample. The chucky e reported is the samplecollectio n date. CHANDRAKANT (test code Draw before = CHANDRAKANT) dose due at 1230 today. [facility] Draw before dose due at 1230 [...] code previous dos e is not = 07665-7) availablefor th is sample. The chucyk e reported is the samplecollectio n date. Vanco Tr Dose 03/28/2022 Level, date, a nd time of Date (test code previous dos e is not = 07356-9) availablefor is sample. The chucky e reported is the samplecollectio n date. CHANDRAKANT (test code Draw before = CHANDRAKANT) dose due at 1230 today. [facility] Draw before dose due at 1230 [...] code previous dos e is not = 75757-1) availablefor is sample. The chucky e reported is the samplecollectio n date. Vanco Tr Dose 03/28/2022 Level, date, a nd time of Date (test code previous dos e is not = 91454-0) availablefor is sample. The chucky e reported is the samplecollectio n date. CHANDRAKANT (test code Draw before = CHANDRAKANT) dose due at 1230 today. [facility] Draw before dose due at 1230 [...] code previous dos e is not = 60169-5) availablefor is sample. The chucky e reported is the samplecollectio n date. Vanco Tr Dose 03/28/2022 Level, date, a nd time of Date (test code previous dos e is not = 58415-3) availablefor is sample. The chucky e reported is the samplecollectio n date. CHANDRAKANT (test code Draw before = CHANDRAKANT) dose due at 1230 today. [facility] Draw before dose due at 1230 [...] code previous dos e is not = 49737-2) availablefor th is sample. The chucky e reported is the samplecollectio n date. Vanco Tr Dose 03/28/2022 Level, date, a nd time of Date (test code previous dos e is not = 70915-9) availablefor th is sample. The chucky e reported is the samplecollectio n date. CHANDRAKANT (test code Draw before = CHANDRAKANT) dose due at 1230 today. [facility] Draw before dose due at 1230 [...] code previous dos e is not = 83101-6) availablefor is sample. The chucky e reported is the samplecollectio n date. Vanco Tr Dose 03/28/2022 Level, date, a nd time of Date (test code previous dos e is not = 14669-5) availablefor is sample. The chucky e reported is the samplecollectio n date. CHANDRAKANT (test code Draw before = CHANDRAKANT) dose due at 1230 today. [facility] Draw before dose due at 1230 [...] code previous dos e is not = 69724-8) availablefor is sample. The chucky e reported is the samplecollectio n date. Vanco Tr Dose 03/28/2022 Level, date, a nd time of Date (test code previous dos e is not = 30681-8) availablefor is sample. The chucky e reported is the samplecollectio n date. CHANDRAKANT (test code Draw before = CHANDRAKANT) dose due at 1230 today. [facility] Draw before dose due at 1230 [...] code previous dos e is not = 60714-1) availablefor is sample. The chucky e reported is the samplecollectio n date. Vanco Tr Dose 03/28/2022 Level, date, a nd time of Date (test code previous dos e is not = 93633-8) availablefor is sample. The chucky e reported is the samplecollectio n date. CHANDRAKANT (test code Draw before = CHANDRAKANT) dose due at 1230 today. [facility] Draw before dose due at 1230 [...] code previous dos e is not = 03171-5) availablefor is sample. The chucky e reported is the samplecollectio n date. Vanco Tr Dose 03/28/2022 Level, date, a nd time of Date (test code previous dos e is not = 67011-2) availablefor is sample. The chucky e reported is the samplecollectio n date. CHANDRAKANT (test code Draw before = CHANDRAKANT) dose due at 1230 today. [facility] Draw before dose due at 1230 [...] code previous dos e is not = 14949-4) availablefor is sample. The chucky e reported is the samplecollectio n date. Vanco Tr Dose 03/28/2022 Level, date, a nd time of Date (test code previous dos e is not = 82105-1) availablefor is sample. The chucky e reported is the samplecollectio n date. CHANDRAKANT (test code Draw before = CHANDRAKANT) dose due at 1230 today. [facility] Draw before dose due at 1230 [...] code previous dos e is not = 54968-8) availablefor is sample. The chucky e reported is the samplecollectio n date. Vanco Tr Dose 03/28/2022 Level, date, a nd time of Date (test code previous dos e is not = 41878-6) availablefor th is sample. The chucky e reported is the samplecollectio n date. CHANDRAKANT (test code Draw before = CHANDRAKANT) dose due at 1230 today. [facility] [place] - Follow [id number] 15:54:59 Test Item Value Reference Range Interpretation Comments EF (test code = 39 [id number]) PXN (test code Jeni Cardozo MD - [...] ml/m2 RWT: 0.24 cmESV (MOD-bp) Index: 41.2 ml/e4Xkfsjwe Measurements TR max jose alfredo: 233.3 cm/secTR max P.8 mmHg [facility] [place] 2D Limited - Follow [id number] 15:54:59 Test Item Value Reference Range Interpretation Comments EF (test code = 39 [id number]) PXN (test code Jeni Cardozo MD - [...] ml/m2 RWT: 0.24 cmESV (MOD-bp) Index: 41.2 ml/c6Tjhtuwb Measurements TR max jose alfredo: 233.3 cm/secTR max P.8 mmHg [facility] [place]Antinuclear Antibody (ED) HEp-2 Substrate, [id number] 03:00:35 Test Item Value Reference Range Interpretation Comments ED HEp-2 See Footnote See_Comment RESULT: <1:80 ( Negative) Substrate (test -------ADDITI code = 69133-5) ONAL INFORMATION---- -----Method: Immunofluoresce nce using HEp-2 cellular substrate. Test Performed by:[facility] [employer] [id number] [place], [place] [address]Uwv Direct or: Nito jose M.D. Ph.D.; CLIA# 24 [id number] [Automated [facility] age] The system which ge nerated this result tra nsmitted reference range : <1:80 (Negative). The reference range was not u sed to interpret this result as normal/abnormal . [facility] ([facility] HEp-2 Substrate, [id number] 03:00:35 Test Item Value Reference Range Interpretation Comments ED HEp-2 See Footnote See_Comment RESULT: <1:80 ( Negative) Substrate (test -------ADDITI code = 47300-6) ONAL INFORMATION---- -----Method: Immunofluoresce nce using HEp-2 cellular substrate. Test Performed by:[facility] [employer] [id number] [place], [place] [address]Alv Direct or: Nito jose M.D. Ph.D.; CLIA# 24 [id number] [[employer] age] The system which ge nerated this result tra nsmitted reference range : <1:80 (Negative). The reference range was not u sed to interpret this result as normal/abnormal . [facility] CenterAnt[facility] Antib[facility] (ED) HEp-2 Substrate, [id number] 03:00:35 Test Item Value Reference Range Interpretation Comments ED HEp-2 See Footnote See_Comment RESULT: <1:80 ( Negative) Substrate (test -------ADDITI code = 51752-3) ONAL INFORMATION---- -----Method: Immunofluoresce nce using HEp-2 cellular substrate. Test Performed by:[facility] [employer] [id number] [place], [place] [address]Ozb Direct or: Nito jose M.D. Ph.D.; CLIA# 24 [id number] [Automated mess age] The system which ge nerated this result tra nsmitted reference range : <1:80 (Negative). The reference range was not u sed to interpret this result as normal/abnormal . [facility] CenterAnt[facility] Antib[facility] (ED) HEp-2 Substrate, [id number] 03:00:35 Test Item Value Reference Range Interpretation Comments ED HEp-2 See Footnote See_Comment RESULT: <1:80 ( Negative) Substrate (test -------ADDITI code = 45003-4) ONAL INFORMATION---- -----Method: Immunofluoresce nce using HEp-2 cellular substrate. Test Performed by:[facility] [employer] [id number] [employer] [place], [place] [address]Mpo Direct or: Nito jose M.D. Ph.D.; CLIA# 24 [id number] [Automated mess age] The system which ge nerated this result tra nsmitted reference range : <1:80 (Negative). The reference range was not u sed to interpret this result as normal/abnormal . [facility] CenterAnt[facility] Antib[facility] (ED) HEp-2 Substrate, [id number] 03:00:35 Test Item Value Reference Range Interpretation Comments ED HEp-2 See Footnote See_Comment RESULT: <1:80 ( Negative) Substrate (test -------ADDITI code = 20942-3) ONAL INFORMATION---- -----Method: Immunofluoresce nce using HEp-2 cellular substrate. Test Performed by:[facility] [id number] [employer] [place], [place] [address]Kdj Direct or: Nito jose M.D. Ph.D.; CLIA# 24 [id number] [Automated [facility] age] The system which ge nerated this result tra nsmitted reference range : <1:80 (Negative). The reference range was not u sed to interpret this result as normal/abnormal . [facility] CenterAntin[facility] Antibody (ED) HEp-2 Substrate, [id number] 03:00:35 Test Item Value Reference Range Interpretation Comments ED HEp-2 See Footnote See_Comment RESULT: <1:80 ( Negative) Substrate (test -------ADDITI code = 54599-2) ONAL INFORMATION---- -----Method: Immunofluoresce nce using HEp-2 cellular substrate. Test Performed by:[facility] [address] [place], [place] [address]Abp Direct or: Nito jose M.D. Ph.D.; CLIA# 24 [id number] [Automated [facility] age] The system which ge nerated this result tra nsmitted reference range : <1:80 (Negative). The reference range was not u sed to interpret this result as normal/abnormal . [facility] CenterAnt[facility] Antibody (ED) HEp-2 Substrate, [id number] 03:00:35 Test Item Value Reference Range Interpretation Comments ED HEp-2 See Footnote See_Comment RESULT: <1:80 ( Negative) Substrate (test -------ADDITI code = 05043-5) ONAL INFORMATION---- -----Method: Immunofluoresce nce using HEp-2 cellular substrate. Test Performed by:[facility] [address] [place], [place] [address]Dle Direct or: Nito jose M.D. Ph.D.; CLIA# 24 [id number] [Automated [facility] age] The system which ge nerated this result tra nsmitted reference range : <1:80 (Negative). The reference range was not u sed to interpret this result as normal/abnormal . [facility] CenterAntin[facility] Antibody (ED) HEp-2 Substrate, [id number] 03:00:35 Test Item Value Reference Range Interpretation Comments ED HEp-2 See Footnote See_Comment RESULT: <1:80 ( Negative) Substrate (test -------ADDITI code = 49356-8) ONAL INFORMATION---- -----Method: Immunofluoresce nce using HEp-2 cellular substrate. Test Performed by:[facility] [employer] [id number] [place], [place] [address]Dez Direct or: Nito jose M.D. Ph.D.; CLIA# 24 [id number] [[employer] age] The system which ge nerated this result tra nsmitted reference range : <1:80 (Negative). The reference range was not u sed to interpret this result as normal/abnormal . [facility] CenterAntinuclear Antibody (ED) HEp-2 Substrate, [id number] 03:00:35 Test Item Value Reference Range Interpretation Comments ED HEp-2 See Footnote See_Comment RESULT: <1:80 ( Negative) Substrate (test -------ADDITI code = 93607-3) ONAL INFORMATION---- -----Method: Immunofluoresce nce using HEp-2 cellular substrate. Test Performed by:[facility] [employer] [id number] [place], [place] [address]Thh Direct or: Nito jose M.D. Ph.D.; CLIA# 24 [id number] [Automated mess age] The system which ge nerated this result tra nsmitted reference range : <1:80 (Negative). The reference range was not u sed to interpret this result as normal/abnormal . [facility] CenterAntinuclear Antibody (ED) HEp-2 Substrate, [id number] 03:00:35 Test Item Value Reference Range Interpretation Comments ED HEp-2 See Footnote See_Comment RESULT: <1:80 ( Negative) Substrate (test -------ADDITI code = 13048-0) ONAL INFORMATION---- -----Method: Immunofluoresce nce using HEp-2 cellular substrate. Test Performed by:[facility] [employer] [id number] [place], [place] [address]Lrx Direct or: Nito jose M.D. Ph.D.; CLIA# 24 [id number] [[employer] The system which ge nerated this result tra nsmitted reference range : <1:80 (Negative). The reference range was not u sed to interpret this result as normal/abnormal . [facility] CenterAntinuclear Antibody (ED) HEp-2 Substrate, [id number] 03:00:35 Test Item Value Reference Range Interpretation Comments ED HEp-2 See Footnote See_Comment RESULT: <1:80 ( Negative) Substrate (test -------ADDITI code = 34953-3) ONAL INFORMATION---- -----Method: Immunofluoresce nce using HEp-2 cellular substrate. Test Performed by:[facility] [id number] [place], [place] [address]Gkp Direct or: Nito jose M.D. Ph.D.; CLIA# 24 [id number] [[employer] age] The system which ge nerated this result tra nsmitted reference range : <1:80 (Negative). The reference range was not u sed to interpret this result as normal/abnormal . [facility] CenterAntinuclear Antibody (ED) HEp-2 Substrate, [id number] 03:00:35 Test Item Value Reference Range Interpretation Comments ED HEp-2 See Footnote See_Comment RESULT: <1:80 ( Negative) Substrate (test -------ADDITI code = 89575-4) ONAL INFORMATION---- -----Method: Immunofluoresce nce using HEp-2 cellular substrate. Test Performed by:[facility] [employer] [address] [place], [place] [address]Dtj Direct or: Nito jose M.D. Ph.D.; CLIA# 24 [id number] [Automated mess age] The system which ge nerated this result tra nsmitted reference range : <1:80 (Negative). The reference range was not u sed to interpret this result as normal/abnormal . [facility]ytrept[facility] U[facility] Antigen Path Pjxizm2039-06-54 01:35:56Streptococcal Urine Antigen Path ReviewReviewed and Electronically signed by Pathologist:NORMAN CAMARILLO MD #0990 [facility] Centertrept[facility] Antigen [facility] Bfhztb2630-80-22 01:35:56Streptococcal Urine Antigen Path ReviewReviewed and Electronically signed by Pathologist:NORMAN CAMARILLO MD #0990 [facility] Streptococcal Urine Antigen Path Dnjaet1269-37-49 01:35:56Streptococcal Urine Antigen Path ReviewReviewed and Electronically signed by Pathologist:NORMAN CAMARILLO MD #0990 [facility]ENTERUn[facility] Centraltreptococcal Urine Antigen Path Ijpsyb8013-77-78 01:35:56 Streptococcal Urine Antigen Path ReviewReviewed and Electronically signed by Pathologist:NORMAN CAMARILLO MD #0990 [facility]ENTERUn[facility] Centraltreptococcal Urine Antigen Path Review 2022-03-28 01:35:56Streptococcal Urine Antigen Path ReviewReviewed and Electronically signed by Pathologist:NORMAN CAMARILLO MD #0990 [facility]ENTERUn[facility] Centraltreptococcal Urine Antigen Path Todzhz4149-05-39 01:35:56Streptococcal Urine Antigen Path ReviewReviewed and Electronically signed by Pathologist:NORMAN CAMARILLO MD #0990 [facility] Streptococcal Urine Antigen Path Znutcw3520-22-79 01:35:56Streptococcal Urine Antigen Path ReviewReviewed and Electronically signed by Pathologist:NORMAN CAMARILLO MD #0990 [facility]ENTERUn[facility] Centraltreptococcal Urine Antigen Path Narzui8037-72-89 01:35:56 Streptococcal Urine Antigen Path ReviewReviewed and Electronically signed by Pathologist:NORMAN CAMARILLO MD #0990 [facility]ENTERUn[facility] – Centraltreptococcal Urine Antigen Path Review 2022-03-28 01:35:56Streptococcal Urine Antigen Path ReviewReviewed and Electronically signed by Pathologist:NORMAN CAMARILLO MD #0990 [facility]ENTERUnMidCo[facility] – Centraltreptococcal Urine Antigen Path [id number] 01:35:56Streptococcal Urine Antigen Path ReviewReviewed and Electronically signed by Pathologist:NORMAN CAMARILLO MD #0990 [facility] Streptococcal Urine Antigen Path [id number] 01:35:56Streptococcal Urine Antigen Path ReviewReviewed and Electronically signed by Pathologist:NORMAN CAMARILLO MD #0990 [facility]ENTERUnMidCo[facility] Center – Centraltreptococcal Urine Antigen Path [id number] 01:35:56 Streptococcal Urine Antigen Path ReviewReviewed and Electronically signed by Pathologist:NORMAN CAMARILLO MD #0990 [facility]ENTERUnSeymour HospitalLegionella Urine Antigen Path Ldclpr7622-01-45 01:35:55Legionella Urine Antigen Path ReviewReviewed and Electronically signed by Pathologist:NORMAN CAMARILLO MD #0990 [facility] CenterLeg[facility] Urine Antigen Path [id number] 01:35:55Legionella Urine Antigen Path ReviewReviewed and Electronically signed by Pathologist:NORMAN CAMARILLO MD #0990 [facility]ENTERUnSeymour HospitalLegionella Urine Antigen Path Btrmdd0487-32-91 01:35:55Legionella Urine Antigen Path ReviewReviewed and Electronically signed by Pathologist:NORMAN CAMARILLO MD #0990 [facility]Un[facility] Legionella Urine Antigen Path Jnfcze6900-04-17 01:35:55Legionella Urine Antigen Path ReviewReviewed and Electronically signed by Pathologist:NORMAN CAMARILLO MD #0990 [facility]ENTERUnSeymour HospitalLegionella Urine Antigen Path Qgtcgp2566-00-55 01:35:55Legionella Urine Antigen Path ReviewReviewed and Electronically signed by Pathologist:NORMAN CAMARILLO MD #0990 [facility]ENTERUnSeymour HospitalLegionella Urine Antigen Path Ctvisy0944-78-09 01:35:55Legionella Urine Antigen Path ReviewReviewed and Electronically signed by Pathologist:NORMAN CAMARILLO MD #0990 [facility]ENTERUnSeymour HospitalLegionella Urine Antigen Path [id number] 01:35:55Legionella Urine Antigen Path ReviewReviewed and Electronically signed by Pathologist:NORMAN CAMARILLO MD #0990 [facility] CenterLeg[facility] Urine Antigen Path [id number] 01:35:55Legionella Urine Antigen Path ReviewReviewed and Electronically signed by Pathologist:NORMAN CAMARILLO MD #0990 [facility]ENTERUnSeymour HospitalLegionella Urine Antigen Path Fadmlz1646-68-42 01:35:55Legionella Urine Antigen Path ReviewReviewed and Electronically signed by Pathologist:ONRMAN CAMARILLO MD #0990 [facility]ENTERUn[facility] Legionella Urine Antigen Path Tynsuy8246-90-80 01:35:55Legionella Urine Antigen Path ReviewReviewed and Electronically signed by Pathologist:NORMAN CAMARILLO MD #0990 [facility]ENTERUnSeymour HospitalLegionella Urine Antigen Path Ymmaep9435-12-48 01:35:55Legionella Urine Antigen Path ReviewReviewed and Electronically signed by Pathologist:NORMAN CAMARILLO MD #0990 [facility]ENTERUnSeymour HospitalLegionella Urine Antigen Path [id number] 01:35:55Legionella Urine Antigen Path ReviewReviewed and Electronically signed by Pathologist:NORMAN CAMARILLO MD #0990 [facility]ENTERUn[facility] Miscellaneous [id number] 22:11:39 Test Item Value Reference Range Interpretation Comments [place] [facility] Test Result See Footnote A Test Re sult Flag (test code = 6385) Unit RefValue------- --- --- --- --- Beta-Hydroxybut yra te, S 2.0 H mmo l/L <0.4 Test Performed by: [place] [address] Plant [employer] Instrument Engineer: Scott Marie M.D. Ph.D.; CLIA# [id number] [facility] Test Name Beta-Hydroxybut (test code = 53403) yrate CHANDRAKANT (test code = CHANDRAKANT) Beta-Hydroxybut yrate Lab Interpretation Abnormal (test code = 85799-1) [facility] [id number] 22:11:39 Test Item Value Reference Range Interpretation Comments [facility] Test Result See Footnote A Test R esult Flag (test code = 6385) Unit RefValue------- --- --- --- --- Beta-Hydroxybut yra te, S 2.0 H mmo l/L <0.4 Test Performed by: [place] [address] Plant And Instrument Engineer: Scott Marie M.D. Ph.D.; CLIA# [id number] [facility] Test Name Beta-Hydroxybut (test code = 51908) yrate CHANDRAKANT (test code = CHANDRAKANT) Beta-Hydroxybut yrate Lab Interpretation Abnormal (test code = 92989-5) [facility] [id number] 22:11:39 Test Item Value Reference Range Interpretation Comments [facility] Test Result See Footnote A Test Re sult Flag (test code = 6385) Unit RefValue------- --- --- --- --- Beta-Hydroxybut yra te, S 2.0 H mmo l/L <0.4 Test Performed by: [place] [address] Plant And Instrument Engineer: Scott Marie M.D. Ph.D.; CLIA# [id number] [facility] Test Name Beta-Hydroxybut (test code = 02476) yrate CHANDRAKANT (test code = CHANDRAKANT) Beta-Hydroxybut yrate Lab Interpretation Abnormal (test code = 05927-9) [facility] [id number] 22:11:39 Test Item Value Reference Range Interpretation Comments [facility] Test Result See Footnote A Test Re sult Flag (test code = 6385) Unit RefValue------- --- --- --- --- Beta-Hydroxybut yra te, S 2.0 H mmo l/L <0.4 Test Performed by: [place] [address] Plant And Instrument Engineer: Scott Marie M.D. Ph.D.; CLIA# [id number] [facility] Test Name Beta-Hydroxybut (test code = 46372) yrate CHANDRAKANT (test code = CHANDRAKANT) Beta-Hydroxybut yrate Lab Interpretation Abnormal (test code = 87883-7) [facility] Miscellaneous [id number] 22:11:39 Test Item Value Reference Range Interpretation Comments [facility] Test Result See Footnote A Test Re sult Flag (test code = 6385) Unit RefValue------- --- --- --- --- Beta-Hydroxybut yra te, S 2.0 H mmo l/L <0.4 Test Performed by: [place] [address] Plant And Instrument Engineer: Scott Marie M.D. Ph.D.; CLIA# [id number] [facility] Test Name Beta-Hydroxybut (test code = 67838) yrate CHANDRAKANT (test code = CHANDRAKANT) Beta-Hydroxybut yrate Lab Interpretation Abnormal (test code = 03977-7) [facility] [id number] 22:11:39 Test Item Value Reference Range Interpretation Comments [facility] Test Result See Footnote A Test Re sult Flag (test code = 6385) Unit RefValue------- --- --- --- --- Beta-Hydroxybut yra te, S 2.0 H mmo l/L <0.4 Test Performed by: [place] [address] Plant And Instrument Engineer: Scott Marie M.D. Ph.D.; CLIA# [id number] [facility] Test Name Beta-Hydroxybut (test code = 99269) yrate CHANDRAKANT (test code = CHANDRAKANT) Beta-Hydroxybut yrate Lab Interpretation Abnormal (test code = 33278-4) [facility] [id number] 22:11:39 Test Item Value Reference Range Interpretation Comments [facility] Test Result See Footnote A Test Re sult Flag (test code = 6385) Unit RefValue------- --- --- --- --- Beta-Hydroxybut yra te, S 2.0 H mmo l/L <0.4 Test Performed by: [place] [address] Plant And Instrument Engineer: Scott Marie M.D. Ph.D.; CLIA# [id number] [facility] Test Name Beta-Hydroxybut (test code = 27314) yrate CHANDRAKANT (test code = CHANDRAKANT) Beta-Hydroxybut yrate Lab Interpretation Abnormal (test code = 68196-1) [facility] [id number] 22:11:39 Test Item Value Reference Range Interpretation Comments [facility] Test Result See Footnote A Test Re sult Flag (test code = 6385) Unit RefValue------- --- --- --- --- Beta-Hydroxybut yra te, S 2.0 H mmo l/L <0.4 Test Performed by: [place] [address] Plant And Instrument Engineer: Scott Marie M.D. Ph.D.; CLIA# [id number] [facility] Test Name Beta-Hydroxybut (test code = 51157) yrate CHANDRAKANT (test code = CHANDRAKANT) Beta-Hydroxybut yrate Lab Interpretation Abnormal (test code = 76057-3) [facility] [id number] 22:11:39 Test Item Value Reference Range Interpretation Comments [facility] Test Result See Footnote A Test Re sult Flag (test code = 6385) Unit RefValue------- --- --- --- --- Beta-Hydroxybut yra te, S 2.0 H mmo l/L <0.4 Test Performed by: [place] [address] Plant And Instrument Engineer: Scott Marie M.D. Ph.D.; CLIA# [id number] [facility] Test Name Beta-Hydroxybut (test code = 17561) yrate CHANDRAKANT (test code = CHANDRAKANT) Beta-Hydroxybut yrate Lab Interpretation Abnormal (test code = 64895-8) [facility] [id number] 22:11:39 Test Item Value Reference Range Interpretation Comments [facility] Test Result See Footnote A Test Re sult Flag (test code = 6385) Unit RefValue------- --- --- --- --- Beta-Hydroxybut yra te, S 2.0 H mmo l/L <0.4 Test Performed by: [place] [address] Plant And Instrument Engineer: Scott Marie M.D. Ph.D.; CLIA# [id number] [facility] Test Name Beta-Hydroxybut (test code = 63581) yrate CHANDRAKANT (test code = CHANDRAKANT) Beta-Hydroxybut yrate Lab Interpretation Abnormal (test code = 44981-1) [facility] [id number] 22:11:39 Test Item Value Reference Range Interpretation Comments [facility] Test Result See Footnote A Test Re sult Flag (test code = 6385) Unit RefValue------- --- --- --- --- Beta-Hydroxybut yra te, S 2.0 H mmo l/L <0.4 Test Performed by: [place] [address] Plant And Instrument Engineer: Scott Marie M.D. Ph.D.; CLIA# [id number] [facility] Test Name Beta-Hydroxybut (test code = 90690) yrate CHANDRAKANT (test code = CHANDRAKANT) Beta-Hydroxybut yrate Lab Interpretation Abnormal (test code = 12752-3) [facility] Miscellaneous [id number] 22:11:39 Test Item Value Reference Range Interpretation Comments [facility] Test Result See Footnote A Test Re sult Flag (test code = 6385) Unit RefValue------- --- --- --- --- Beta-Hydroxybut yra te, S 2.0 H mmo l/L <0.4 Test Performed by: [place] [address] Plant And Instrument Engineer: Scott Marie M.D. Ph.D.; CLIA# [id number] [facility] Test Name Beta-Hydroxybut (test code = 99931) yrate CHANDRAKANT (test code = CHANDRAKANT) Beta-Hydroxybut yrate Lab Interpretation Abnormal (test code = 49108-5) [facility] McKinneytreptococcus pneumoniae Urine [id number] 21:18:20 Test Item Value Reference Range Interpretation Comments Streptococcal Urine Antigen Negative Interpretation (test code = 60593079) [facility] McKin[facility]ytreptococcus pneumoniae Urine [id number] 21:18:20 Test Item Value Reference Range Interpretation Comments Streptococcal Urine Antigen Negative Interpretation (test code = 15043292) [facility]ytreptococcus pneumoniae Urine [id number] 21:18:20 Test Item Value Reference Range Interpretation Comments Streptococcal Urine Antigen Negative Interpretation (test code = 96853453) [facility]ytreptococcus pneumoniae Urine [id number] 21:18:20 Test Item Value Reference Range Interpretation Comments Streptococcal Urine Antigen Negative Interpretation (test code = 31844032) [facility]reptococcus pneumoniae Urine [id number] 21:18:20 Test Item Value Reference Range Interpretation Comments Streptococcal Urine Antigen Negative Interpretation (test code = 98618197) [facility]ytreptococcus pneumoniae Urine [id number] 21:18:20 Test Item Value Reference Range Interpretation Comments Streptococcal Urine Antigen Negative Interpretation (test code = 47348575) [facility]ytreptococcus pneumoniae Urine [id number] 21:18:20 Test Item Value Reference Range Interpretation Comments Streptococcal Urine Antigen Negative Interpretation (test code = 01729246) [facility]ytreptococcus pneumoniae Urine [id number] 21:18:20 Test Item Value Reference Range Interpretation Comments Streptococcal Urine Antigen Negative Interpretation (test code = 73950186) [facility]ytreptococcus pneumoniae Urine [id number] 21:18:20 Test Item Value Reference Range Interpretation Comments Streptococcal Urine Antigen Negative Interpretation (test code = 88295480) [facility]neytreptococcus pneumoniae Urine Acskxms7951-30-06 21:18:20 Test Item Value Reference Range Interpretation Comments Streptococcal Urine Antigen Negative Interpretation (test code = 00578626) [facility] Urine Hoavwro2197-98-93 21:18:20 Test Item Value Reference Range Interpretation Comments Streptococcal Urine Antigen Negative Interpretation (test code = 37951995) [facility] Urine Qgwizyr6117-22-50 21:18:20 Test Item Value Reference Range Interpretation Comments Streptococcal Urine Antigen Negative Interpretation (test code = 28630268) [facility] Guwtwbq1775-96-97 21:16:26 Test Item Value Reference Range Interpretation Comments Legionella Urine Antigen Negative Interpretation (test code = 8848835) [facility] Urine Ahwpops9022-32-55 21:16:26 Test Item Value Reference Range Interpretation Comments Legionella Urine Antigen Negative Interpretation (test code = 2603387) [facility] Urine Grpqbim4220-30-57 21:16:26 Test Item Value Reference Range Interpretation Comments Legionella Urine Antigen Negative Interpretation (test code = 4775023) [facility] Urine Pdvrybn1212-99-75 21:16:26 Test Item Value Reference Range Interpretation Comments Legionella Urine Antigen Negative Interpretation (test code = 0382707) [facility] Urine Pmzdkjz6076-81-09 21:16:26 Test Item Value Reference Range Interpretation Comments Legionella Urine Antigen Negative Interpretation (test code = 7679352) [facility] Urine Yvkypwv9975-80-40 21:16:26 Test Item Value Reference Range Interpretation Comments Legionella Urine Antigen Negative Interpretation (test code = 8641194) [facility] Urine Iicflzn3881-40-64 21:16:26 Test Item Value Reference Range Interpretation Comments Legionella Urine Antigen Negative Interpretation (test code = 6232300) [facility] Urine Zgbouie8834-37-91 21:16:26 Test Item Value Reference Range Interpretation Comments Legionella Urine Antigen Negative Interpretation (test code = 5370005) [facility] Xfezuvp3775-29-11 21:16:26 Test Item Value Reference Range Interpretation Comments Legionella Urine Antigen Negative Interpretation (test code = 1598021) [facility] Kblmrlt9067-65-10 21:16:26 Test Item Value Reference Range Interpretation Comments Legionella Urine Antigen Negative Interpretation (test code = 0453103) [facility] Tdzwodr8765-04-17 21:16:26 Test Item Value Reference Range Interpretation Comments Legionella Urine Antigen Negative Interpretation (test code = 6602232) [facility] Kykfrhu1518-10-56 21:16:26 Test Item Value Reference Range Interpretation Comments Legionella Urine Antigen Negative Interpretation (test code = 5879186) [facility] CenterAnti-Neutrophil Cytoplasmic Antibodies Vascultitis Nbdln9710-31-13 20:47:30 Test Item Value Reference Range Interpretation Comments Myeloperox Ab-Frye <0.2 See_Comment [Automat ed message] The (test code = 33603-1) system which generated this result tra nsmitted reference range : <0.4 (Negative) Unit s. The reference range was not used to interpr et this result as normal/abnormal . Proteinase 3 Ab-Frye <0.2 See_Comment Test P erformed by:[place] (test code = 20446-5) [facility] [address] [place], [place] [address]Rhg Direct or: Nito jose M.D. Ph.D.; CLIA# 24 [id number] [Automated mess age] The system which ge nerated this result tra nsmitted reference range : <0.4 (Negative) Unit s. The reference range was not used to interpr et this result as normal/abnormal . [facility] Center[facility]-Neutrophil Cytoplasmic Antibodies Vascultitis Gzrbh5459-62-62 20:47:30 Test Item Value Reference Range Interpretation Comments Myeloperox Ab-Frye <0.2 See_Comment [Automat ed message] The (test code = 86823-5) system which generated this result tra nsmitted reference range : <0.4 (Negative) Unit s. The reference range was not used to interpr et this result as normal/abnormal . Proteinase 3 Ab-Frye <0.2 See_Comment Test P erformed by:[place] (test code = 12264-9) [facility] [employer] [address] [place], [place] [address]Sta Direct or: Nito jose M.D. Ph.D.; CLIA# 24 [id number] [Automated mess age] The system which ge nerated this result tra nsmitted reference range : <0.4 (Negative) Unit s. The reference range was not used to interpr et this result as normal/abnormal . [facility] CenterAnti-Neutrophil Cytoplasmic Antibodies Vascultitis Jvwsa6095-96-68 20:47:30 Test Item Value Reference Range Interpretation Comments Myeloperox Ab-Frye <0.2 See_Comment [Automat ed message] The (test code = 78189-8) system which generated this result tra nsmitted reference range : <0.4 (Negative) Unit s. The reference range was not used to interpr et this result as normal/abnormal . Proteinase 3 Ab-Frye <0.2 See_Comment Test P erformed by:[place] (test code = 34144-5) [facility] [employer] [address] [place], [place] [address]Sgx Direct or: Nito jose M.D. Ph.D.; CLIA# 24 [id number] [Automated mess age] The system which ge nerated this result tra nsmitted reference range : <0.4 (Negative) Unit s. The reference range was not used to interpr et this result as normal/abnormal . [facility] CenterAnti-Neutrophil Cytoplasmic Antibodies Vascultitis Egrsx0056-55-35 20:47:30 Test Item Value Reference Range Interpretation Comments Myeloperox Ab-Frye <0.2 See_Comment [Automat ed message] The (test code = 57962-0) system which generated this result tra nsmitted reference range : <0.4 (Negative) Unit s. The reference range was not used to interpr et this result as normal/abnormal . Proteinase 3 Ab-Frye <0.2 See_Comment Test P erformed by:[place] (test code = 15984-5) [facility] [employer] [address] [place], [place] [address]Vvw Direct or: Nito jose M.D. Ph.D.; CLIA# 24 [id number] [Automated mess age] The system which ge nerated this result tra nsmitted reference range : <0.4 (Negative) Unit s. The reference range was not used to interpr et this result as normal/abnormal . [facility] CenterAnti-Neutrophil Cytoplasmic Antibodies Vascultitis Ovhva7120-24-19 20:47:30 Test Item Value Reference Range Interpretation Comments Myeloperox Ab-Frye <0.2 See_Comment [Automat ed message] The (test code = 47478-0) system which generated this result tra nsmitted reference range : <0.4 (Negative) Unit s. The reference range was not used to interpr et this result as normal/abnormal . Proteinase 3 Ab-Frye <0.2 See_Comment Test P erformed by:[place] (test code = 88015-4) [facility] [employer] [address] [place], [place] [address]Llt Direct or: Nito jose M.D. Ph.D.; CLIA# 24 [id number] [Automated mess age] The system which ge nerated this result tra nsmitted reference range : <0.4 (Negative) Unit s. The reference range was not used to interpr et this result as normal/abnormal . [facility] CenterAnti-Neutrophil Cytoplasmic Antibodies Vascultitis Ggyer4564-15-52 20:47:30 Test Item Value Reference Range Interpretation Comments Myeloperox Ab-Frye <0.2 See_Comment [Automat ed message] The (test code = 00318-6) system which generated this result tra nsmitted reference range : <0.4 (Negative) Unit s. The reference range was not used to interpr et this result as normal/abnormal . Proteinase 3 Ab-Frye <0.2 See_Comment Test P erformed by:[place] (test code = 44873-8) [facility] [employer] [address] [place], [place] [address]Lyu Direct or: Nito jose M.D. Ph.D.; CLIA# 24 [id number] [Automated mess age] The system which ge nerated this result tra nsmitted reference range : <0.4 (Negative) Unit s. The reference range was not used to interpr et this result as normal/abnormal . [facility] CenterAnti-Neutrophil Cytoplasmic Antibodies Vascultitis Grplp2096-55-79 20:47:30 Test Item Value Reference Range Interpretation Comments Myeloperox Ab-Frye <0.2 See_Comment [Automat ed message] The (test code = 85588-3) system which generated this result tra nsmitted reference range : <0.4 (Negative) Unit s. The reference range was not used to interpr et this result as normal/abnormal . Proteinase 3 Ab-Frye <0.2 See_Comment Test P erformed by:[place] (test code = 48153-6) [facility] [employer] [address] [place], [place] [address]Njj Direct or: Nito jose M.D. Ph.D.; CLIA# 24 [id number] [Automated mess age] The system which ge nerated this result tra nsmitted reference range : <0.4 (Negative) Unit s. The reference range was not used to interpr et this result as normal/abnormal . [facility] CenterAnti-Neutrophil Cytoplasmic Antibodies Vascultitis Bygpe9860-05-96 20:47:30 Test Item Value Reference Range Interpretation Comments Myeloperox Ab-Frye <0.2 See_Comment [Automat ed message] The (test code = 34748-3) system which generated this result tra nsmitted reference range : <0.4 (Negative) Unit s. The reference range was not used to interpr et this result as normal/abnormal . Proteinase 3 Ab-Frye <0.2 See_Comment Test P erformed by:[place] (test code = 62593-2) [facility] [employer] [facility] [id number] [place], [place] [address]Odd Direct or: Nito jose M.D. Ph.D.; CLIA# 24 [id number] [Automated mess age] The system which ge nerated this result tra nsmitted reference range : <0.4 (Negative) Unit s. The reference range was not used to interpr et this result as normal/abnormal . [facility] CenterAnti-Neutrophil Cytoplasmic Antibodies Vascultitis Fciqy3764-07-57 20:47:30 Test Item Value Reference Range Interpretation Comments Myeloperox Ab-Frye <0.2 See_Comment [Automat ed message] The (test code = 30249-4) system which generated this result tra nsmitted reference range : <0.4 (Negative) Unit s. The reference range was not used to interpr et this result as normal/abnormal . Proteinase 3 Ab-Frye <0.2 See_Comment Test P erformed by:[place] (test code = 68738-1) [facility] [employer] [facility] [address] [place], [place] [address]Pme Direct or: Nito jose M.D. Ph.D.; CLIA# 24 [id number] [Automated mess age] The system which ge nerated this result tra nsmitted reference range : <0.4 (Negative) Unit s. The reference range was not used to interpr et this result as normal/abnormal . [facility] CenterAnti-Neutrophil Cytoplasmic Antibodies Vascultitis Ghfbb4503-63-24 20:47:30 Test Item Value Reference Range Interpretation Comments Myeloperox Ab-Frye <0.2 See_Comment [Automat ed message] The (test code = 85571-6) system which generated this result tra nsmitted reference range : <0.4 (Negative) Unit s. The reference range was not used to interpr et this result as normal/abnormal . Proteinase 3 Ab-Frye <0.2 See_Comment Test P erformed by:[place] (test code = 46958-0) [facility] [address] [place], [place] [address]Hsl Direct or: Nito jose M.D. Ph.D.; CLIA# 24 [id number] [Automated mess age] The system which ge nerated this result tra nsmitted reference range : <0.4 (Negative) Unit s. The reference range was not used to interpr et this result as normal/abnormal . [facility] CenterAnti-Neutrophil Cytoplasmic Antibodies Vascultitis Bqfvy4362-49-37 20:47:30 Test Item Value Reference Range Interpretation Comments Myeloperox Ab-Frye <0.2 See_Comment [Automat ed message] The (test code = 59149-1) system which generated this result tra nsmitted reference range : <0.4 (Negative) Unit s. The reference range was not used to interpr et this result as normal/abnormal . Proteinase 3 Ab-Frye <0.2 See_Comment Test P erformed by:[place] (test code = 72639-4) [facility] [employer] [address] [place], [place] [address]Fbw Direct or: Nito jose M.D. Ph.D.; CLIA# 24 [id number] [Automated mess age] The system which ge nerated this result tra nsmitted reference range : <0.4 (Negative) Unit s. The reference range was not used to interpr et this result as normal/abnormal . [facility] CenterAnti-Neutrophil Cytoplasmic Antibodies Vascultitis Roqem8915-75-48 20:47:30 Test Item Value Reference Range Interpretation Comments Myeloperox Ab-Frye <0.2 See_Comment [Automat ed message] The (test code = 83179-3) system which generated this result tra nsmitted reference range : <0.4 (Negative) Unit s. The reference range was not used to interpr et this result as normal/abnormal . Proteinase 3 Ab-Frye <0.2 See_Comment Test P erformed by:Uday (test code = 46964-6) [facility] [employer] [address] [place], [place] [address]Oea Direct or: Nito jose M.D. Ph.D.; CLIA# 24 [id number] [Automated mess age] The system which ge nerated this result tra nsmitted reference range : <0.4 (Negative) Unit s. The reference range was not used to interpr et this result as normal/abnormal . [facility] Center[facility] Nokok1119-71-99 08:15:11 Test Item Value Reference Range Interpretation Comments CK (test code = 2157-6) 161 U/L 26-192 CK MB (test code = 2.6 ng/mL <=5.3 75460-0) Troponin T (test code = 80 ng/L <=18 A < 19 ng/L Suggest 74111-9) retest at 3 to 6 hours later to rule out myocardial infarction >= 1 9 to <=52 ng/L Possi ble myocardial inju ry. Suggest retest at 3 hours. - a oliva ge of < 20 ng/L, rete st at 6 hours - a ch ashley of >= 20 ng/L, suggestive of myocardial [...] ults. Lab Interpretation Abnormal (test code = 73658-1) [facility] Center[facility] Gomxh4916-42-77 08:15:11 Test Item Value Reference Range Interpretation Comments CK (test code = 2157-6) 161 U/L 26-192 CK MB (test code = 2.6 ng/mL <=5.3 78389-5) Troponin T (test code = 80 ng/L <=18 A < 19 ng/L Suggest 06630-6) retest at 3 to 6 hours later to rule out myocardial infarction >= 1 9 to <=52 ng/L Possi ble myocardial inju ry. Suggest retest at 3 hours. - a oliva ge of < 20 ng/L, rete st at 6 hours - a ch ashley of >= 20 ng/L, suggestive of myocardial [...] ults. Lab Interpretation Abnormal (test code = 52645-9) [facility] Yprej7349-19-15 08:15:11 Test Item Value Reference Range Interpretation Comments CK (test code = 2157-6) 161 U/L 26-192 CK MB (test code = 2.6 ng/mL <=5.3 81074-2) Troponin T (test code = 80 ng/L <=18 A < 19 ng/L Suggest 96406-6) retest at 3 to 6 hours later to rule out myocardial infarction >= 1 9 to <=52 ng/L Possi ble myocardial inju ry. Suggest retest at 3 hours. - a oliva ge of < 20 ng/L, rete st at 6 hours - a ch ashley of >= 20 ng/L, suggestive of myocardial [...] ults. Lab Interpretation Abnormal (test code = 29297-9) [facility] Center[facility] Mmaed1992-47-39 08:15:11 Test Item Value Reference Range Interpretation Comments CK (test code = 2157-6) 161 U/L 26-192 CK MB (test code = 2.6 ng/mL <=5.3 73630-7) Troponin T (test code = 80 ng/L <=18 A < 19 ng/L Suggest 10369-9) retest at 3 to 6 hours later to rule out myocardial infarction >= 1 9 to <=52 ng/L Possi ble myocardial inju ry. Suggest retest at 3 hours. - a oliva ge of < 20 ng/L, rete st at 6 hours - a ch ashley of >= 20 ng/L, suggestive of myocardial [...] ults. Lab Interpretation Abnormal (test code = 60643-7) [facility] Lzmgw5718-93-57 08:15:11 Test Item Value Reference Range Interpretation Comments CK (test code = 2157-6) 161 U/L 26-192 CK MB (test code = 2.6 ng/mL <=5.3 79301-5) Troponin T (test code = 80 ng/L <=18 A < 19 ng/L Suggest 97628-3) retest at 3 to 6 hours later to rule out myocardial infarction >= 1 9 to <=52 ng/L Poss ible myocardial inju ry. Suggest retest at 3 hours. - a oliva ge of < 20 ng/L, rete st at 6 hours - a ch ashley of >= 20 ng/L, suggestive of myocardial [...] ults. Lab Interpretation Abnormal (test code = 61191-0) [facility] Ptnvu0229-39-71 08:15:11 Test Item Value Reference Range Interpretation Comments CK (test code = 2157-6) 161 U/L 26-192 CK MB (test code = 2.6 ng/mL <=5.3 31216-6) Troponin T (test code = 80 ng/L <=18 A < 19 ng/L Suggest 43682-5) retest at 3 to 6 hours later [...] ults. Lab Interpretation Abnormal (test code = 79418-5) [facility] Plvbn5180-74-96 08:15:11 Test Item Value Reference Range Interpretation Comments CK (test code = 2157-6) 161 U/L 26-192 CK MB (test code = 2.6 ng/mL <=5.3 35145-0) Troponin T (test code = 80 ng/L <=18 A < 19 ng/L Suggest 86658-6) retest at 3 to 6 hours later [...] ults. Lab Interpretation Abnormal (test code = 75129-7) [facility] CenterS[facility] Blbj5527-67-54 22:32:19 Test Item Value Reference Range Interpretation Comments Sed Rate (test code = 83 See_Comment H [Auto mated message] 4537-7) The system [employer] generated this result transmitted ref erence range: 0 - 20 m m/hr. The reference r ashley was not used to interpret this result as normal/abnor mal. Lab Interpretation (test Abnormal code = 96745-1) [facility] Foan4313-98-97 22:32:19 Test Item Value Reference Range Interpretation Comments Sed Rate (test code = 83 See_Comment H [Auto mated message] 4537-7) The system [employer] generated this result transmitted ref erence range: 0 - 20 m m/hr. The reference r ashley was not used to interpret this result as normal/abnor mal. Lab Interpretation (test Abnormal code = 45720-8) [facility] Pslc2192-07-26 22:32:19 Test Item Value Reference Range Interpretation Comments Sed Rate (test code = 83 See_Comment H [Auto mated message] 7-7) The system [employer] generated this result transmitted ref erence range: 0 - 20 m m/hr. The reference r ahsley was not used to interpret this result as normal/abnor mal. Lab Interpretation (test Abnormal code = 17524-2) [facility] [id number] 22:32:19 Test Item Value Reference Range Interpretation Comments Sed Rate (test code = 83 See_Comment H [Auto mated message] 7-7) The system [employer] generated this result transmitted ref erence range: 0 - 20 m m/hr. The reference r ashley was not used to interpret this result as normal/abnor mal. Lab Interpretation (test Abnormal code = 85515-6) [facility] [id number] 22:32:19 Test Item Value Reference Range Interpretation Comments Sed Rate (test code = 83 See_Comment H [Auto mated message] 4537-7) The system [employer] generated this result transmitted ref erence range: 0 - 20 m m/hr. The reference r ashley was not used to interpret this result as normal/abnor mal. Lab Interpretation (test Abnormal code = 56894-2) [facility] Uhlh5592-00-08 22:32:19 Test Item Value Reference Range Interpretation Comments Sed Rate (test code = 83 See_Comment H [Auto mated message] 4537-7) The system [employer] generated this result transmitted ref erence range: 0 - 20 m m/hr. The reference r ashley was not used to interpret this result as normal/abnor mal. Lab Interpretation (test Abnormal code = 66998-8) [facility] Obwd5082-69-30 22:32:19 Test Item Value Reference Range Interpretation Comments Sed Rate (test code = 83 See_Comment H [Auto mated message] 4537-7) The system [employer] generated this result transmitted ref erence range: 0 - 20 m m/hr. The reference r ashley was not used to interpret this result as normal/abnor mal. Lab Interpretation (test Abnormal code = 19244-8) [facility] Humy1689-28-89 22:32:19 Test Item Value Reference Range Interpretation Comments Sed Rate (test code = 83 See_Comment H [Auto mated message] 7-7) The system [employer] generated this result transmitted ref erence range: 0 - 20 m m/hr. The reference r ashley was not used to interpret this result as normal/abnor mal. Lab Interpretation (test Abnormal code = 50290-3) [facility] Rspq4022-06-56 22:32:19 Test Item Value Reference Range Interpretation Comments Sed Rate (test code = 83 See_Comment H [Auto mated message] 7-7) The system [employer] generated this result transmitted ref erence range: 0 - 20 m m/hr. The reference r ashley was not used to interpret this result as normal/abnor mal. Lab Interpretation (test Abnormal code = 90408-4) [facility] [id number] 22:32:19 Test Item Value Reference Range Interpretation Comments Sed Rate (test code = 83 See_Comment H [Auto mated message] 4537-7) The system [employer] generated this result transmitted ref erence range: 0 - 20 m m/hr. The reference r ashley was not used to interpret this result as normal/abnor mal. Lab Interpretation (test Abnormal code = 21288-0) [facility] [id number] 22:32:19 Test Item Value Reference Range Interpretation Comments Sed Rate (test code = 83 See_Comment H [Auto mated message] 5707-7) The system [employer] generated this result transmitted ref erence range: 0 - 20 m m/hr. The reference r ashley was not used to interpret this result as normal/abnor mal. Lab Interpretation (test Abnormal code = 69258-9) [facility] Ttmd3687-04-18 22:32:19 Test Item Value Reference Range Interpretation Comments Sed Rate (test code = 83 See_Comment H [Auto mated message] 6987-7) The system [employer] generated this result transmitted ref erence range: 0 - 20 m m/hr. The reference r ashley was not used to interpret this result as normal/abnor mal. Lab Interpretation (test Abnormal code = 21903-9) [facility] CenterProcalcitonin2023-01-31 21:13:34 Test Item Value Reference Range Interpretation Comments Procalcitonin (test 30.39 ng/mL <=0.08 H Procalci tonin > 2.00 code = 99579-2) ng/mL: Proca lcitonin levels above 2. 00 [...] extended diluti on as it exceeds the cook pressure's recommended sweeney it. Caution should be exercised when interpreting limon ch values and done in conjunction wit h clinical contex t. Lab Interpretation Abnormal (test code = 68769-5) [facility] CenterProcalcitonin2023-01-31 21:13:34 Test Item Value Reference Range Interpretation Comments Procalcitonin (test 30.39 ng/mL <=0.08 H Procalci tonin > 2.00 code = 39847-1) ng/mL: Proca lcitonin levels above 2. 00 [...] extended diluti on as it exceeds the cook pressure's recommended sweeney it. Caution should be exercised when interpreting limon ch values and done in conjunction wit clinical Browntapex t. Lab Interpretation Abnormal (test code = 58170-9) [facility] AijxvmFmbtthnfppauu7409-00-32 21:13:34 Test Item Value Reference Range Interpretation Comments Procalcitonin (test 30.39 ng/mL <=0.08 H Procalci tonin > 2.00 code = 88718-6) ng/mL: Proca lcitonin levels above 2. 00 [...] extended diluti on as it exceeds the cook pressure's recommended sweeney it. Caution should be exercised when interpreting limon ch values and done in conjunction wit clinical contex t. Lab Interpretation Abnormal (test code = 79015-4) [facility] CenterProcalcitonin2023-01-31 21:13:34 Test Item Value Reference Range Interpretation Comments Procalcitonin (test 30.39 ng/mL <=0.08 H Procalci tonin > 2.00 code = 90206-4) ng/mL: Proca lcitonin levels above 2. 00 [...] extended diluti on as it exceeds the cook pressure's recommended sweeney it. Caution should be exercised when interpreting limon ch values and done in conjunction [facility] clinical Browntapex t. Lab Interpretation Abnormal (test code = 63193-2) [facility] 21:13:34 Test Item Value Reference Range Interpretation Comments Procalcitonin (test 30.39 ng/mL <=0.08 H Procalci tonin > 2.00 code = 24453-3) ng/mL: Proca lcitonin levels above 2. 00 [...] extended diluti on as it exceeds the cook pressure's recommended sweeney it. Caution should be exercised when interpreting limon ch values and done in conjunction wit clinical contex t. Lab Interpretation Abnormal (test code = 63044-0) [facility] 21:13:34 Test Item Value Reference Range Interpretation Comments Procalcitonin (test 30.39 ng/mL <=0.08 H Procalci tonin > 2.00 code = 63675-0) ng/mL: Proca lcitonin levels above 2. 00 [...] extended diluti on as it exceeds the cook pressure's recommended sweeney it. Caution should be exercised when interpreting limon ch values [facility] Lab Interpretation Abnormal (test code = 40810-9) [facility] 21:13:34 Test Item Value Reference Range Interpretation Comments Procalcitonin (test 30.39 ng/mL <=0.08 H Procalci tonin > 2.00 code = 30372-4) ng/mL: Proca lcitonin levels above 2. 00 [...] extended diluti on as it exceeds the cook pressure's recommended sweeney it. Caution should be exercised when interpreting limon ch values [facility]. Lab Interpretation Abnormal (test code = 90900-9) [facility] 21:13:34 Test Item Value Reference Range Interpretation Comments Procalcitonin (test 30.39 ng/mL <=0.08 H Procalci tonin > 2.00 code = 45309-1) ng/mL: Proca lcitonin levels above 2. 00 [...] extended diluti on as it exceeds the cook pressure's recommended sweeney it. Caution should be exercised when interpreting limon ch values and [facility]. Lab Interpretation Abnormal (test code = 38380-6) [facility] 21:13:34 Test Item Value Reference Range Interpretation Comments Procalcitonin (test 30.39 ng/mL <=0.08 H Procalci tonin > 2.00 code = 61730-0) ng/mL: Proca lcitonin levels above 2. 00 [...] extended diluti on as it exceeds the cook pressure's recommended sweeney it. Caution should be exercised when interpreting limon ch values and [facility]. Lab Interpretation Abnormal (test code = 56978-1) [facility] 21:13:34 Test Item Value Reference Range Interpretation Comments Procalcitonin (test 30.39 ng/mL <=0.08 H Procalci tonin > 2.00 code = 11824-0) ng/mL: Proca lcitonin levels above 2. 00 [...] extended diluti on as it exceeds the cook pressure's recommended sweeney it. Caution should be exercised when interpreting limon ch values and done in conjunction wit clinical contex t. Lab Interpretation Abnormal (test code = 46872-9) [facility] 21:13:34 Test Item Value Reference Range Interpretation Comments Procalcitonin (test 30.39 ng/mL <=0.08 H Procalci tonin > 2.00 code = 34839-6) ng/mL: Proca lcitonin levels above 2. 00 [...] extended diluti on as it exceeds the cook pressure's recommended sweeney it. Caution should be exercised when interpreting limon ch values [facility] [employer] t. Lab Interpretation Abnormal (test code = 23194-0) [facility] 21:13:34 Test Item Value Reference Range Interpretation Comments Procalcitonin (test 30.39 ng/mL <=0.08 H Procalci tonin > 2.00 code = 62611-5) ng/mL: Proca lcitonin levels above 2. 00 [...] extended diluti on as it exceeds the cook pressure's recommended sweeney it. Caution should be exercised when interpreting limon ch values and [facility] [employer] t. Lab Interpretation Abnormal (test code = 70810-2) [facility] 20:44:04 Test Item Value Reference Range Interpretation Comments CRP (test code = 239.41 mg/[place] [address]-3) CRP assay are a s follows: Reference range s when used to assess cardi ac risk: <1.00 mg/L Low cardiovascular risk 1.00-3.00 mg/L Average cardiovascular risk >3.00 mg/L High cardi ovascular risk.Reference ranges when used to assess inflammatory re sponses: Less than or eq ual to 10.00 mg/L. [place] [id number] 20:44:04 Test Item Value Reference Range Interpretation Comments CRP (test code = 239.41 mg/[place] [address]-0) CRP assay are a s follows: Reference range s when used to assess cardi ac risk: <1.00 mg/L Low cardiovascular risk 1.00-3.00 mg/L Average cardiovascular risk >3.00 mg/L High cardi ovascular risk.Reference ranges when used to assess inflammatory re sponses: Less than or eq ual to 10.00 mg/L. [place] [id number] 20:44:04 Test Item Value Reference Range Interpretation Comments CRP (test code = 239.41 mg/[place] [address]-0) CRP assay are a s follows: Reference range s when used to assess cardi ac risk: <1.00 mg/L Low cardiovascular risk 1.00-3.00 mg/L Average cardiovascular risk >3.00 mg/L High cardi ovascular risk.Reference ranges when used to assess inflammatory re sponses: Less than or eq ual to 10.00 mg/L. [facility] Test Item Value Reference Range Interpretation Comments CRP (test code = 239.41 mg/[place] [address]-8) CRP assay are a s follows: Reference range s when used to assess cardi ac risk: <1.00 mg/L Low cardiovascular risk 1.00-3.00 mg/L Average cardiovascular risk >3.00 mg/L High cardi ovascular risk.Reference ranges when used to assess inflammatory re sponses: Less than or eq ual to 10.00 mg/L. [place] [id number] 20:44:04 Test Item Value Reference Range Interpretation Comments CRP (test code = 239.41 mg/[place] [address]-3) CRP assay are a s follows: Reference range s when used to assess cardi ac risk: <1.00 mg/L Low cardiovascular risk 1.00-3.00 mg/L Average cardiovascular risk >3.00 mg/L High cardi ovascular risk.Reference ranges when used to assess inflammatory re sponses: Less than or eq ual to 10.00 mg/L. [place] [id number] 20:44:04 Test Item Value Reference Range Interpretation Comments CRP (test code = 239.41 mg/[place] [address]-1) CRP assay are a s follows: Reference range s when used to assess cardi ac risk: <1.00 mg/L Low cardiovascular risk 1.00-3.00 mg/L Average cardiovascular risk >3.00 mg/L High cardi ovascular risk.Reference ranges when used to assess inflammatory re sponses: Less than or eq ual to 10.00 mg/L. [place] [id number] 20:44:04 Test Item Value Reference Range Interpretation Comments CRP (test code = 239.41 mg/[place] [address]-0) CRP assay are a s follows: Reference range s when used to assess cardi ac risk: <1.00 mg/L Low cardiovascular risk 1.00-3.00 mg/L Average cardiovascular risk >3.00 mg/L High cardi ovascular risk.Reference ranges when used to assess inflammatory re sponses: Less than or eq ual to 10.00 mg/L. [facility] Test Item Value Reference Range Interpretation Comments CRP (test code = 239.41 mg/[place] [address]-6) CRP assay are a s follows: Reference range s when used to assess cardi ac risk: <1.00 mg/L Low cardiovascular risk 1.00-3.00 mg/L Average cardiovascular risk >3.00 mg/L High cardi ovascular risk.Reference ranges when used to assess inflammatory re sponses: Less than or eq ual to 10.00 mg/L. [place] [id number] 20:44:04 Test Item Value Reference Range Interpretation Comments CRP (test code = 239.41 mg/[place] [address]-5) CRP assay are a s follows: Reference range s when used to assess cardi ac risk: <1.00 mg/L Low cardiovascular risk 1.00-3.00 mg/L Average cardiovascular risk >3.00 mg/L High cardi ovascular risk.Reference ranges when used to assess inflammatory re sponses: Less than or eq ual to 10.00 mg/L. [place] [id number] 20:44:04 Test Item Value Reference Range Interpretation Comments CRP (test code = 239.41 mg/[place] [address]-7) CRP assay are a s follows: Reference range s when used to assess cardi ac risk: <1.00 mg/L Low cardiovascular risk 1.00-3.00 mg/L Average cardiovascular risk >3.00 mg/L High cardi ovascular risk.Reference ranges when used to assess inflammatory re sponses: Less than or eq ual to 10.00 mg/L. [place] [id number] 20:44:04 Test Item Value Reference Range Interpretation Comments CRP (test code = 239.41 mg/[place] [address]-0) CRP assay are a s follows: Reference range s when used to assess cardi ac risk: <1.00 mg/L Low cardiovascular risk 1.00-3.00 mg/L Average cardiovascular risk >3.00 mg/L High cardi ovascular risk.Reference ranges when used to assess inflammatory re sponses: Less than or eq ual to 10.00 mg/L. [place] [id number] 20:44:04 Test Item Value Reference Range Interpretation Comments CRP (test code = 239.41 mg/[place] [address]-1) CRP assay are a s follows: Reference range s when used to assess cardi ac risk: <1.00 mg/L Low cardiovascular risk 1.00-3.00 mg/L Average cardiovascular risk >3.00 mg/L High cardi ovascular risk.Reference ranges when used to assess inflammatory re sponses: Less than or eq ual to 10.00 mg/L. [facility] 18:24:20 Test Item Value Reference Range Interpretation Comments NT ProBNP (test code = 74527-4) 3186 pg/mL <=125 H Lab Interpretation (test code = Abnormal 80845-0) [facility]22-[facility]-26 18:24:20 Test Item Value Reference Range Interpretation Comments NT ProBNP (test code = 64163-5) 3186 pg/mL <=125 H Lab Interpretation (test code = Abnormal 23650-9) [facility]2022-03-26 18:24:20 Test Item Value Reference Range Interpretation Comments NT ProBNP (test code = 00430-6) 3186 pg/mL <=125 H Lab Interpretation (test code = Abnormal 69926-4) [facility]2022-03-26 18:24:20 Test Item Value Reference Range Interpretation Comments NT ProBNP (test code = 20665-6) 3186 pg/mL <=125 H Lab Interpretation (test code = Abnormal 04306-1) [facility]2022-[facility]-26 18:24:20 Test Item Value Reference Range Interpretation Comments NT ProBNP (test code = 79042-9) 3186 pg/mL <=125 H Lab Interpretation (test code = Abnormal 61398-7) [facility]2022-03-26 18:24:20 Test Item Value Reference Range Interpretation Comments NT ProBNP (test code = 33371-8) 3186 pg/mL <=125 H Lab Interpretation (test code = Abnormal 29364-7) [facility]2022-03-26 18:24:20 Test Item Value Reference Range Interpretation Comments NT ProBNP (test code = 85891-3) 3186 pg/mL <=125 H Lab Interpretation (test code = Abnormal 77310-9) [facility] 17:39:44 Test Item Value Reference Range Interpretation Comments Fibrinogen (test code = 3255-7) 697 mg/dL 214-503 H Lab Interpretation (test code = Abnormal 07785-8) [facility] Test Item Value Reference Range Interpretation Comments Fibrinogen (test code = 3255-7) 697 mg/dL 214-503 H Lab Interpretation (test code = Abnormal 37171-3) [facility] Test Item Value Reference Range Interpretation Comments Fibrinogen (test code = 3255-7) 697 mg/dL 214-503 H Lab Interpretation (test code = Abnormal 34125-0) [facility] 17:39:44 Test Item Value Reference Range Interpretation Comments Fibrinogen (test code = 3255-7) 697 mg/dL 214-503 H Lab Interpretation (test code = Abnormal 56775-0) [facility]2023-01-31 17:39:44 Test Item Value Reference Range Interpretation Comments Fibrinogen (test code = 3255-7) 697 mg/dL 214-503 H Lab Interpretation (test code = Abnormal 46111-3) [facility] 17:39:44 Test Item Value Reference Range Interpretation Comments Fibrinogen (test code = 3255-7) 697 mg/dL 214-503 H Lab Interpretation (test code = Abnormal 94581-5) [facility] 17:39:44 Test Item Value Reference Range Interpretation Comments Fibrinogen (test code = 3255-7) 697 mg/dL 214-503 H Lab Interpretation (test code = Abnormal 87667-4) [facility] 17:39:44 Test Item Value Reference Range Interpretation Comments Fibrinogen (test code = 3255-7) 697 mg/dL 214-503 H Lab Interpretation (test code = Abnormal 83364-3) [facility] 17:39:44 Test Item Value Reference Range Interpretation Comments Fibrinogen (test code = 3255-7) 697 mg/dL 214-503 H Lab Interpretation (test code = Abnormal 04407-8) [facility]2023-01-31 17:39:44 Test Item Value Reference Range Interpretation Comments Fibrinogen (test code = 3255-7) 697 mg/dL 214-503 H Lab Interpretation (test code = Abnormal 73228-4) [facility] 17:39:44 Test Item Value Reference Range Interpretation Comments Fibrinogen (test code = 3255-7) 697 mg/dL 214-503 H Lab Interpretation (test code = Abnormal 59675-0) [facility] 17:39:44 Test Item Value Reference Range Interpretation Comments Fibrinogen (test code = 3255-7) 697 mg/dL 214-503 H Lab Interpretation (test code = Abnormal 75392-9) [facility] Chem [id number] 16:07:54 Test Item Value Reference Range Interpretation Comments POC NA (test code = 145 See_Comment [Automa eugene message] 0103-0) The system [employer] generated this result transmitted ref erence range: [...] chemic ally sensitive biose nsors on a GageIn ip that are config ured to perform [...] code = 103 See_Comment [Automa eugene message] 2068-3) The system [employer] generated this result transmitted ref erence range: 98 - 109 mEq/L. The refe rence range was not u sed to interpret this result as normal/abnor mal. POC ATCO2 (test code 27 See_Comment [Autom ated message] = 2025-04) The system [employer] generated this result transmitted ref erence range: 23 - 27 mEq/L. The reference r ashley was not used to interpret this result as normal/abnor mal. POC Anion Gap (test 19 mmol/L -20 code = 17998) POC BUN (test code = 7 mg/dL 8-26 L 6299-2) POC Crea (test code 0.4 mg/dL 0.6-1.3 L Medicati ons, = 16180-0) especially hydroxyurea or supplements, limon ch as [...] which contains microfabricated sensors, a calibration d[employer]ie [employer], fluidics system , and a waste chamber . Each test cartridge contains chemic ally sensitive biose nsors on a GageIn ip that are config ured to perform spec ific tests. The microfabricated sensors measure analyte concent ration by an electroch emical assay. POC EGFR (test code 141 See_Comment The eGFR cr is = 45977) calculated with the 2020 CKD-EPI creatinine equa [...] CK D. [Automated mess age] The system [employer] generated this result transmitted ref erence range: [...] MDA Main Main Ca mpus code = 25453) [facility] Cli [facility], [address], [place] [address]; Plant And Instrument Engineer: Guerline Olmstead MD; Waived Point of Care Testing - Luz Maria levi MD Lab Interpretation Abnormal (test code = 94752-4) [facility] Chem [id number] 16:07:54 Test Item Value Reference Range Interpretation Comments POC NA (test code = 145 See_Comment [Automa eugene message] 7-0) The system [employer] generated this result transmitted ref erence range: [...] chemic ally sensitive biose nsors on a Gage[employer] ip that are config ured to perform [...] See_Comment [Automa eugene message] 2068-04) The system [employer] generated this result transmitted ref erence range: 98 - 109 mEq/L. The refe rence range was not u sed to interpret this result as normal/abnor mal. POC ATCO2 (test code 27 See_Comment [Autom ated message] = 2025-04) The system [employer] generated this result transmitted ref erence range: 23 - 27 mEq/L. The reference r ashley was not used to interpret this result as normal/abnor mal. POC Anion Gap (test 19 mmol/L -20 code = 25429) POC BUN (test code = 7 mg/dL 8-26 L 6299-2) POC Crea (test code 0.4 mg/dL 0.6-1.3 L Medicati ons, = 30435-2) especially hydroxyurea or supplements, limon ch as [...] chemic ally sensitive biose nsors on a [employer] ip that are config ured to perform spec ific tests. The microfabricated sensors measure analyte concent ration by an electroch emical assay. POC EGFR (test code 141 See_Comment The eGFR cr is = 25752) calculated with the 2020 CKD-EPI creatinine equa [...] CK D. [Automated mess age] The system [employer] generated this result transmitted ref erence [...] MDA Main Main Ca mpus code = 77623) [facility]ical Lab, [address], [place] [address]; Plant And Instrument Engineer: Guerline Olmstead MD; Waived Point of Care Testing - Luz Maria levi MD Lab Interpretation Abnormal (test code = 20026-2) [facility] [id number] 16:07:54 Test Item Value Reference Range Interpretation Comments POC NA (test code = 145 See_Comment [Automa eugene message] 2947-0) The system [employer] generated this result transmitted ref erence range: [...] which contains microfabricated sensors, a calibration dixie [employer], fluidics system , and a waste chamber . Each test cartridge contains chemic ally sensitive biose nsors on a GageIn ip that are config ured to perform [...] See_Comment [Automa eugene message] 2068-04) The system [employer] generated this result transmitted ref erence range: 98 - 109 mEq/L. The refe rence range was not u sed to interpret this result as normal/abnor mal. POC ATCO2 (test code 27 See_Comment [Autom ated message] = 2025-04) The system [employer] generated this result transmitted ref erence range: 23 - 27 mEq/L. The reference r ashley was not used to interpret this result as normal/abnor mal. POC Anion Gap (test 19 mmol/L 10-20 code = 32539) POC BUN (test code = 7 mg/dL 8-26 L 6299-2) POC Crea (test code 0.4 mg/dL 0.6-1.3 L Medicati ons, = 77956-1) especially hydroxyurea or supplements, limon ch as [...] which contains microfabricated sensors, a calibration d[employer]ie [employer], fluidics system , and a waste chamber . Each test cartridge contains chemic ally sensitive biose nsors on a GageIn ip that are config ured to perform spec ific tests. The microfabricated sensors measure analyte concent ration by an electroch emical assay. POC EGFR (test code 141 See_Comment The eGFR cr is = 99951) calculated with the 2020 CKD-EPI creatinine equa [...] CK D. [Automated mess age] The system [employer] generated this result transmitted ref erence range: [...] code = 12.9 See_Comment Hematoc rit values 8982) from the iSTAT are determined conductometrica lly, [...] MDA Main Main Ca mpus code = 82172) [facility]ical Lab, [address], [place] [address]; Plant And Instrument Engineer: Guerline Olmstead MD; Waived Point of Care Testing - Luz Maria levi MD Lab Interpretation Abnormal (test code = 32171-4) [facility] Chem [id number] 16:07:54 Test Item Value Reference Range Interpretation Comments POC NA (test code = 145 See_Comment [Automa eugene message] 2947-0) The system [employer] generated this result transmitted ref erence [...] ridge which contains microfabricated sensors, a calibration [employer], fluidics system , and a waste chamber . Each test cartridge contains chemic ally sensitive biose nsors on a GageIn ip that are config ured to perform [...] See_Comment [Automa eugene message] 2068-04) The system [employer] generated this result transmitted ref erence range: 98 - 109 mEq/L. The refe rence range was not u sed to interpret this result as normal/abnor mal. POC ATCO2 (test code 27 See_Comment [Autom ated message] = 2025-04) The system [employer] generated this result transmitted ref erence range: 23 - 27 mEq/L. The reference r ashley was not used to interpret this result as normal/abnor mal. POC Anion Gap (test 19 mmol/L 10-20 code = 13828) POC BUN (test code = 7 mg/dL 8-26 L 6299-2) POC Crea (test code 0.4 mg/dL 0.6-1.3 L Medicati ons, = 39001-8) especially hydroxyurea or supplements, limon ch as [...] ridge which contains microfabricated sensors, a calibration [employer] fluidics system , and a waste chamber . Each test cartridge contains chemic ally sensitive biose nsors on a Gage[employer] ip that are config ured to perform spec ific tests. The microfabricated sensors measure analyte concent ration by an electroch emical assay. POC EGFR (test code 141 See_Comment The eGFR cr is = 46362) calculated with the 2020 CKD-EPI creatinine equa [...] CK D. [Automated mess age] The system [employer] generated this result transmitted ref erence range: [...] MDA Main Main Ca mpus code = 29035) [facility] Lab, [address], [place] [address]; Plant And Instrument Engineer: Guerline Olmstead MD; Waived Point of Care Testing - Luz Maria levi MD Lab Interpretation Abnormal (test code = 37024-3) [facility] Chem [id number] 16:07:54 Test Item Value Reference Range Interpretation Comments POC NA (test code = 145 See_Comment [Automa eugene message] 2947-0) The system [employer] generated this result transmitted ref erence range: [...] chemic ally sensitive biose nsors on a GageIn ip that are config ured to perform [...] See_Comment [Automa eugene message] 2068-04) The system [employer] generated this result transmitted ref erence range: 98 - 109 mEq/L. The refe rence range was not u sed to interpret this result as normal/abnor mal. POC ATCO2 (test code 27 See_Comment [Autom ated message] = 2025-04) The system [employer] generated this result transmitted ref erence range: 23 - 27 mEq/L. The reference r ashley was not used to interpret this result as normal/abnor mal. POC Anion Gap (test 19 mmol/L 10-20 code = 53581) POC BUN (test code = 7 mg/dL 8-26 L 6299-2) POC Crea (test code 0.4 mg/dL 0.6-1.3 L Medicati ons, = 10240-4) especially hydroxyurea or supplements, limon ch as [...] chemic ally sensitive biose nsors on a [employer] ip that are config ured to perform spec ific tests. The microfabricated sensors measure analyte concent ration by an electroch emical assay. POC EGFR (test code 141 See_Comment The eGFR cr is = 85146) calculated with the 2020 CKD-EPI creatinine equa [...] CK D. [Automated mess age] The system [employer] generated this result transmitted ref erence range: [...] MDA Main Main Ca mpus code = 76720) [facility] Lab, [address], [place] [address]; Plant And Instrument Engineer: Guerline Olmstead MD; Waived Point of Care Testing - Luz Maria levi MD Lab Interpretation Abnormal (test code = 94422-2) [facility] Chem [id number] 16:07:54 Test Item Value Reference Range Interpretation Comments POC NA (test code = 145 See_Comment [Automa eugene message] 2287-0) The system [employer] generated this result transmitted ref erence range: [...] chemic ally sensitive biose nsors on a GageIn ip that are config ured to perform [...] See_Comment [Automa eugene message] 2068-04) The system [employer] generated this result transmitted ref erence range: 98 - 109 mEq/L. The refe rence range was not u sed to interpret this result as normal/abnor mal. POC ATCO2 (test code 27 See_Comment [Autom ated message] = 2025-04) The system [employer] generated this result transmitted ref erence range: 23 - 27 mEq/L. The reference r ashley was not used to interpret this result as normal/abnor mal. POC Anion Gap (test 19 mmol/L 10-20 code = 33951) POC BUN (test code = 7 mg/dL 8-26 L 6299-2) POC Crea (test code 0.4 mg/dL 0.6-1.3 L Medicati ons, = 11890-8) especially hydroxyurea or supplements, limon ch as [...] ally sensitive biose nsors on a silicon [employer] ip that are config ured to perform spec ific tests. The microfabricated sensors measure analyte concent ration by an electroch emical assay. POC EGFR (test code 141 See_Comment The eGFR cr is = 42844) calculated with the 2020 CKD-EPI creatinine equa [...] CK D. [Automated mess age] The system [employer] generated this result transmitted ref erence range: [...] MDA Main Main [place] mpus code = 61151) [facility] Cli nical Lab, [address], [place] [address]; Plant And Instrument Engineer: Guerline Olmstead MD; Waived Point of Care Testing - Luz Maria levi MD Lab Interpretation Abnormal (test code = 59464-2) [facility] Chem [id number] 16:07:54 Test Item Value Reference Range Interpretation Comments POC NA (test code = 145 See_Comment [Automa eugene message] 2947-0) The system [employer] generated this result transmitted ref erence [...] chemic ally sensitive biose nsors on a [employer] ip that are config ured to perform [...] See_Comment [Automa eugene message] 2068-04) The system [employer] generated this result transmitted ref erence range: 98 - 109 mEq/L. The refe rence range was not u sed to interpret this result as normal/abnor mal. POC ATCO2 (test code 27 See_Comment [Autom ated message] = 2025-04) The system [employer] generated this result transmitted ref erence range: 23 - 27 mEq/L. The reference r ashley was not used to interpret this result as normal/abnor mal. POC Anion Gap (test 19 mmol/L 10-20 code = 32362) POC BUN (test code = 7 mg/dL 8-26 L 6299-2) POC Crea (test code 0.4 mg/dL 0.6-1.3 L Medicati ons, = 75565-7) especially hydroxyurea or supplements, limon ch as [...] chemic ally sensitive biose nsors on a [employer] ip that are config ured to perform spec ific tests. The microfabricated sensors measure analyte concent ration by an electroch emical assay. POC EGFR (test code 141 See_Comment The eGFR cr is = 55800) calculated with the 2020 CKD-EPI creatinine equa [...] CK D. [Automated mess age] The system [employer] generated this result transmitted ref erence range: [...] MDA Main Main Ca mpus code = 08815) [facility] Cli nical Lab, [address], [place] [address]; Plant And Instrument Engineer: Guerline Olmstead MD; Waived Point of Care Testing - Luz Maria levi MD Lab Interpretation Abnormal (test code = 50321-0) [facility] Chem [id number] 16:07:54 Test Item Value Reference Range Interpretation Comments POC NA (test code = 145 See_Comment [Automa eugene message] 2946-0) The system [employer] generated this result transmitted ref erence range: [...] chemic ally sensitive biose nsors on a [employer] ip that are config ured to perform [...] See_Comment [Automa eugene message] 2068-04) The system [employer] generated this result transmitted ref erence range: 98 - 109 mEq/L. The refe rence range was not u sed to interpret this result as normal/abnor mal. POC ATCO2 (test code 27 See_Comment [Autom ated message] = 2025-04) The system [employer] generated this result transmitted ref erence range: 23 - 27 mEq/L. The reference r ashley was not used to interpret this result as normal/abnor mal. POC Anion Gap (test 19 mmol/L 10-20 code = 68840) POC BUN (test code = 7 mg/dL 8-26 L 6299-2) POC Crea (test code 0.4 mg/dL 0.6-1.3 L Medicati ons, = 30197-4) especially hydroxyurea or supplements, limon ch as [...] chemic ally sensitive biose nsors on a [employer] ip that are config ured to perform spec ific tests. The microfabricated sensors measure analyte concent ration by an electroch emical assay. POC EGFR (test code 141 See_Comment The eGFR cr is = 41735) calculated with the 2020 CKD-EPI creatinine equa [...] CK D. [Automated mess age] The system [employer] generated this result transmitted ref erence [...] MDA Main Main Ca mpus code = 32716) [facility] Cli nical Lab, [address], [place] [address]; Plant And Instrument Engineer: Guerline Olmstead MD; Waived Point of Care Testing - Luz Maria levi MD Lab Interpretation Abnormal (test code = 68099-3) [facility] Chem [id number] 16:07:54 Test Item Value Reference Range Interpretation Comments POC NA (test code = 145 See_Comment [Automa eugene message] 2947-0) The system [employer] generated this result transmitted ref erence range: 138 - 14 6 mEq/L. The refe rence range was not u sed to interpret this result as normal/abnor mal. POC K (test code = 3.1 See_Comment L Method de scription: 0998-4) The i-STAT is a n analyzer used f or in vitro quantific ation of various anal ytes in whole blood. The device uses a s jose a disposable cart ridge which contains microfabricated sensors, a calibration dixie ution, fluidics system , and a waste chamber . Each test cartridge contains chemic ally sensitive biose nsors on a [employer] ip that are config ured to perform [...] See_Comment [Automa eugene message] 2068-04) The system [employer] generated this result transmitted ref erence range: 98 - 109 mEq/L. The refe rence range was not u sed to interpret this result as normal/abnor mal. POC ATCO2 (test code 27 See_Comment [Autom ated message] = 2025-04) The system [employer] generated this result transmitted ref erence range: 23 - 27 mEq/L. The reference r ashley was not used to interpret this result as normal/abnor mal. POC Anion Gap (test 19 mmol/L -20 code = 23815) POC BUN (test code = 7 mg/dL 8-26 L 6299-2) POC Crea (test code 0.4 mg/dL 0.6-1.3 L Medicati ons, = 11249-0) especially hydroxyurea or supplements, limon ch as ascorbate, can interfere with test results causing a falsely and significantly h igher result than exp ected. If a problem is suspected with a patient's resul t, [facility]. Method descript ion: [...] chemic ally sensitive biose nsors on a [employer] ip that are config ured to perform spec ific tests. The microfabricated sensors measure analyte concent ration by an electroch emical assay. POC EGFR (test code 141 See_Comment The eGFR cr is = 59614) calculated with the 2020 CKD-EPI creatinine equa [...] CK D. [Automated mess age] The system [employer] generated this result transmitted ref erence [...] MDA Main Main Ca mpus code = 30914) [facility] Cli nical Lab, [address], [place] [address]; Plant And Instrument Engineer: Guerline Olmstead MD; Waived Point of Care Testing - Luz Maria levi MD Lab Interpretation Abnormal (test code = 59558-1) [facility] Chem [id number] 16:07:54 Test Item Value Reference Range Interpretation Comments POC NA (test code = 145 See_Comment [Automa eugene message] 2947-0) The system whic h generated this result [...] chemic ally sensitive biose nsors on a [employer] ip that are config ured to perform [...] See_Comment [Automa eugene message] 2068-04) The system [employer] generated this result transmitted ref erence range: 98 - 109 mEq/L. The refe rence range was not u sed to interpret this result as normal/abnor mal. POC ATCO2 (test code 27 See_Comment [Autom ated message] = 2025-04) The system [employer] generated this result transmitted ref erence range: 23 - 27 mEq/L. The reference r ashley was not used to interpret this result as normal/abnor mal. POC Anion Gap (test 19 mmol/L 10-20 code = 49964) POC BUN (test code = 7 mg/dL 8-26 L 6299-2) POC Crea (test code 0.4 mg/dL 0.6-1.3 L Medicati ons, = 25033-3) especially hydroxyurea or supplements, limon ch as [...] chemic ally sensitive biose nsors on a [employer] ip that are config ured to perform spec ific tests. The microfabricated sensors measure analyte concent ration by an electroch emical assay. POC EGFR (test code 141 See_Comment The eGFR cr is = 12004) calculated with the 2020 CKD-EPI creatinine equa [...] CK D. [Automated mess age] The system [employer] generated this result transmitted ref erence range: [...] MDA Main Main Ca mpus code = 24133) [facility] Cli nical Lab, [address], [place] [address]; Plant And Instrument Engineer: Guerline Olmstead MD; Waived Point of Care Testing - Luz Maria levi MD Lab Interpretation Abnormal (test code = 71255-3) [facility] Chem [id number] 16:07:54 Test Item Value Reference Range Interpretation Comments POC NA (test code = 145 See_Comment [Automa eugene message] 3021-0) The system [employer] generated this result transmitted ref erence range: [...] chemic ally sensitive biose nsors on a [employer] ip that are config ured to perform [...] See_Comment [Automa eugene message] 2068-04) The system [employer] generated this result transmitted ref erence range: 98 - 109 mEq/L. The refe rence range was not u sed to interpret this result as normal/abnor mal. POC ATCO2 (test code 27 See_Comment [Autom ated message] = 2025-04) The system [employer] generated this result transmitted ref erence range: 23 - 27 mEq/L. The reference r ashley was not used to interpret this result as normal/abnor mal. POC Anion Gap (test 19 mmol/L -20 code = 44253) POC BUN (test code = 7 mg/dL 8-26 L 6299-2) POC Crea (test code 0.4 mg/dL 0.6-1.3 L Medicati ons, = 16393-1) especially hydroxyurea or supplements, limon ch as [...] which contains microfabricated sensors, a calibration dixie [employer], fluidics system , and a waste chamber . Each test cartridge contains chemic ally sensitive biose nsors on a [employer] ip that are config ured to perform spec ific tests. The microfabricated sensors measure analyte concent ration by an electroch emical assay. POC EGFR (test code 141 See_Comment The eGFR cr is = 94415) calculated with the 2020 CKD-EPI creatinine equa [...] CK D. [Automated mess age] The system [employer] generated this result transmitted ref erence range: [...] MDA Main Main Ca mpus code = 25004) [facility] Cli nical Lab, [address], [place] [address]; Plant And Instrument Engineer: Guerline Olmstead MD; Waived Point of Care Testing - Luz Maria levi MD Lab Interpretation Abnormal (test code = 23343-0) [facility] Chem [id number] 16:07:54 Test Item Value Reference Range Interpretation Comments POC NA (test code = 145 See_Comment [Automa eugene message] 7-0) The system [employer] generated this result transmitted ref erence range: [...] chemic ally sensitive biose nsors on a [employer] ip that are config ured to perform [...] See_Comment [Automa eugene message] 2068-04) The system [employer] generated this result transmitted ref erence range: 98 - 109 mEq/L. The refe rence range was not u sed to interpret this result as normal/abnor mal. POC ATCO2 (test code 27 See_Comment [Autom ated message] = 2025-04) The system [employer] generated this result transmitted ref erence range: 23 - 27 mEq/L. The reference r ashley was not used to interpret this result as normal/abnor mal. POC Anion Gap (test 19 mmol/L -20 code = 91947) POC BUN (test code = 7 mg/dL 8-26 L 6299-2) POC Crea (test code 0.4 mg/dL 0.6-1.3 L Medicati ons, = 42971-5) especially hydroxyurea or supplements, limon ch as [...] chemic ally sensitive biose nsors on a [employer] ip that are config ured to perform spec ific tests. The microfabricated sensors measure analyte concent ration by an electroch emical assay. POC EGFR (test code 141 See_Comment The eGFR cr is = 88005) calculated with the 2020 CKD-EPI creatinine equa [...] CK D. [Automated mess age] The system [employer] generated this result transmitted ref erence [...] MDA Main Main Ca mpus code = 46065) [facility] Cli nical Lab, [address], [place] [address]; Plant And Instrument Engineer: Guerline Olmstead MD; Waived Point of Care Testing - Luz Maria levi MD Lab Interpretation Abnormal (test code = 57049-6) [facility] [id number] 16:07:27 Test Item Value Reference Range Interpretation Comments C-Peptide (test code = 1985-10) 2.34 ng/mL 1.10-4.40 [facility] [id number] 16:07:27 Test Item Value Reference Range Interpretation Comments C-Peptide (test code = 1985-10) 2.34 ng/mL 1.10-4.40 [facility] [id number] 16:07:27 Test Item Value Reference Range Interpretation Comments C-Peptide (test code = 1985-10) 2.34 ng/mL 1.10-4.40 [facility] [id number] 16:07:27 Test Item Value Reference Range Interpretation Comments C-Peptide (test code = 1985-10) 2.34 ng/mL 1.10-4.40 [facility] [id number] 16:07:27 Test Item Value Reference Range Interpretation Comments C-Peptide (test code = 1985-10) 2.34 ng/mL 1.10-4.40 [facility] [id number] 16:07:27 Test Item Value Reference Range Interpretation Comments C-Peptide (test code = 1985-10) 2.34 ng/mL 1.10-4.40 [facility] [id number] 16:07:27 Test Item Value Reference Range Interpretation Comments C-Peptide (test code = 1985-10) 2.34 ng/mL 1.10-4.40 [facility] [id number] 16:07:27 Test Item Value Reference Range Interpretation Comments C-Peptide (test code = 1985-10) 2.34 ng/mL 1.10-4.40 [facility] [id number] 16:07:27 Test Item Value Reference Range Interpretation Comments C-Peptide (test code = 1985-10) 2.34 ng/mL 1.10-4.40 [facility] [id number] 16:07:27 Test Item Value Reference Range Interpretation Comments C-Peptide (test code = 1985-10) 2.34 ng/mL 1.10-4.40 [facility] [id number] 16:07:27 Test Item Value Reference Range Interpretation Comments C-Peptide (test code = 1985-10) 2.34 ng/mL 1.10-4.40 [facility] [id number] 16:07:27 Test Item Value Reference Range Interpretation Comments C-Peptide (test code = 1985-10) 2.34 ng/mL 1.10-4.40 [facility] [id number] 16:07:23 Test Item Value Reference Range Interpretation [...] d message] code = 2018-09) The system [employer] generated this result transmit eugene reference range : 35 - 45 mmHg. The reference range was not used to interpret this result as normal/abnormal . POC AB pO2 (test 46 See_Comment A [Automated message] code = 2703-7) The system [employer] generated this result transmit eugene reference range : 80 - 105 mmHg. The reference range was not used to interpret this result as normal/abnormal . POC AB TCO2 (test 28 See_Comment H [Automate d message] code = 2025-3) The system [employer] generated this result transmit eugene reference range : 23 - 27 mEq/L. The reference range was not used to interpret this result as normal/abnormal . POC AB Bicarb (test 26 mmol/L 22-26 code = 1960-4) POC AB Base Ex (test 0 mmol/L -2-3 code = 13573-3) POC AB O2 Sat (test 78 % 95-98 L code = 2708-6) POC FiO2 (test code 100 = 3150-0) POC ABG Draw Site Rt Radial (test code = 6663) POC Elias Test (test Not Performed code = 49852-8) POC Sample Type Arterial (test code = 6690) POC Clean Dev (test Yes code = 6672) Performing Lab (test [facility] [place] code = 09042) [facility] Cli nical Lab, [address], [place] [address]; Plant And Instrument Engineer: Guerline Olmstead MD; Waived Point of Care Testing - Luz Maria levi MD Lab Interpretation Abnormal (test code = 38446-3) [facility] [id number] 16:07:23 Test Item Value Reference Range Interpretation [...] d message] code = 2018-09) The system [employer] generated this result transmit eugene reference range : 35 - 45 mmHg. The reference range was not used to interpret this result as normal/abnormal . POC AB pO2 (test 46 See_Comment A [Automated message] code = 3-7) The system [employer] generated this result transmit eugene reference range : 80 - 105 mmHg. The reference range was not used to interpret this result as normal/abnormal . POC AB TCO2 (test 28 See_Comment H [Automate d message] code = 2025-) The system [employer] generated this result transmit eugene reference range : 23 - 27 mEq/L. The reference range was not used to interpret this result as normal/abnormal . POC AB Bicarb (test 26 mmol/L 22-26 code = 1960-4) POC AB Base Ex (test 0 mmol/L -2-3 code = 31001-1) POC AB O2 Sat (test 78 % 95-98 L code = 2708-6) POC FiO2 (test code 100 = 3150-0) POC ABG Draw Site Rt Radial (test code = 6663) POC Elias Test (test Not Performed code = 32624-8) POC Sample Type Arterial (test code = 6690) POC Clean Dev (test Yes code = 6672) Performing Lab (test [facility] [place] code = 37504) [facility] Cli [facility]ical Lab, [address] [place], [place] [address], [place] [address]; Plant And Instrument Engineer: Guerline Olmstead MD; Waived Point of Care Testing - Luz Maria levi MD Lab Interpretation Abnormal (test code = 79501-1) [facility] [id number] 16:07:23 Test Item Value Reference Range Interpretation [...] d message] code = 2018-09) The system [employer] generated this result transmit eugene reference range : 35 - 45 mmHg. The reference range was not used to interpret this result as normal/abnormal . POC AB pO2 (test 46 See_Comment A [Automated message] code = 3-7) The system [employer] generated this result transmit eugene reference range : 80 - 105 mmHg. The reference range was not used to interpret this result as normal/abnormal . POC AB TCO2 (test 28 See_Comment H [Automate d message] code = 2025-) The system [employer] generated this result transmit eugene reference range : 23 - 27 mEq/L. The reference range was not used to interpret this result as normal/abnormal . POC AB Bicarb (test 26 mmol/L 22-26 code = 1960-4) POC AB Base Ex (test 0 mmol/L -2-3 code = 13414-4) POC AB O2 Sat (test 78 % 95-98 L code = 2708-6) POC FiO2 (test code 100 = 3150-0) POC ABG Draw Site Rt Radial (test code = 6663) POC Elias Test (test Not Performed code = 32339-2) POC Sample Type Arterial (test code = 6690) POC Clean Dev (test Yes code = 6672) Performing Lab (test [facility] [place] code = 41703) [facility] Cli [facility]ical Lab, [facility] [address], [place] [address]; Plant And Instrument Engineer: Guerline Olmstead MD; Waived Point of Care Testing - Luz Maria levi MD Lab Interpretation Abnormal (test code = 11933-6) [facility] [id number] 16:07:23 Test Item Value Reference Range Interpretation [...] d message] code = 2018-09) The system [employer] generated this result transmit eugene reference range : 35 - 45 mmHg. The reference range was not used to interpret this result as normal/abnormal . POC AB pO2 (test 46 See_Comment A [Automated message] code = 3-7) The system [employer] generated this result transmit eugene reference range : 80 - 105 mmHg. The reference range was not used to interpret this result as normal/abnormal . POC AB TCO2 (test 28 See_Comment H [Automate d message] code = 2025-) The system [employer] generated this result transmit eugene reference range : 23 - 27 mEq/L. The reference range was not used to interpret this result as normal/abnormal . POC AB Bicarb (test 26 mmol/L 22-26 code = 1960-4) POC AB Base Ex (test 0 mmol/L -2-3 code = 90098-3) POC AB O2 Sat (test 78 % 95-98 L code = 2708-6) POC FiO2 (test code 100 = 3150-0) POC ABG Draw Site Rt Radial (test code = 6663) POC Elias Test (test Not Performed code = 07958-8) POC Sample Type Arterial (test code = 6690) POC Clean Dev (test Yes code = 6672) Performing Lab (test [facility] Main [place] code = 29571) [facility] Cli nical Lab, [address], [place] [address]; Plant And Instrument Engineer: Guerline Olmstead MD; Waived Point of Care Testing - Luz Maria levi MD Lab Interpretation Abnormal (test code = 89397-2) [facility] [id number] 16:07:23 Test Item Value Reference Range Interpretation [...] d message] code = 2018-09) The system [employer] generated this result transmit eugene reference range : 35 - 45 mmHg. The reference range was not used to interpret this result as normal/abnormal . POC AB pO2 (test 46 See_Comment A [Automated message] code = 3-7) The system [employer] generated this result transmit eugene reference range : 80 - 105 mmHg. The reference range was not used to interpret this result as normal/abnormal . POC AB TCO2 (test 28 See_Comment H [Automate d message] code = 2025-) The system [employer] generated this result transmit eugene reference range : 23 - 27 mEq/L. The reference range was not used to interpret this result as normal/abnormal . POC AB Bicarb (test 26 mmol/L 22-26 code = 1960-4) POC AB Base Ex (test 0 mmol/L -2-3 code = 70797-7) POC AB O2 Sat (test 78 % 95-98 L code = 2708-6) POC FiO2 (test code 100 = 3150-0) POC ABG Draw Site Rt Radial (test code = 6663) POC Elias Test (test Not Performed code = 12302-8) POC Sample Type Arterial (test code = 6690) POC Clean Dev (test Yes code = 6672) Performing Lab (test [facility] [place] code = 34699) [facility] Cli nical Lab, [address], [place] [address]; Plant And Instrument Engineer: Guerline Olmstead MD; Waived Point of Care Testing - Luz Maria levi MD Lab Interpretation Abnormal (test code = 40078-1) [facility] [id number] 16:07:23 Test Item Value Reference Range Interpretation [...] d message] code = 2018-09) The system [employer] generated this result transmit eugene reference range : 35 - 45 mmHg. The reference range was not used to interpret this result as normal/abnormal . POC AB pO2 (test 46 See_Comment A [Automated message] code = 2702-7) The system [employer] generated this result transmit eugene reference range : 80 - 105 mmHg. The reference range was not used to interpret this result as normal/abnormal . POC AB TCO2 (test 28 See_Comment H [Automate d message] code = 2025-) The system [employer] generated this result transmit eugene reference range : 23 - 27 mEq/L. The reference range was not used to interpret this result as normal/abnormal . POC AB Bicarb (test 26 mmol/L 22-26 code = 1960-4) POC AB Base Ex (test 0 mmol/L -2-3 code = 71721-4) POC AB O2 Sat (test 78 % 95-98 L code = 2708-6) POC FiO2 (test code 100 = 3150-0) POC ABG Draw Site Rt Radial (test code = 6663) POC Elias Test (test Not Performed code = 68663-4) POC Sample Type Arterial (test code = 6690) POC Clean Dev (test Yes code = 6672) Performing Lab (test [facility] [place] code = 97659) [facility] Cli nical Lab, [address], [place] [address]; Plant And Instrument Engineer: Guerline Olmstead MD; Waived Point of Care Testing - Luz Maria levi MD Lab Interpretation Abnormal (test code = 50907-7) [facility] [id number] 16:07:23 Test Item Value Reference Range Interpretation [...] d message] code = 2018-09) The system [employer] generated this result transmit eugene reference range : 35 - 45 mmHg. The reference range was not used to interpret this result as normal/abnormal . POC AB pO2 (test 46 See_Comment A [Automated message] code = 3-7) The system [employer] generated this result transmit eugene reference range : 80 - 105 mmHg. The reference range was not used to interpret this result as normal/abnormal . POC AB TCO2 (test 28 See_Comment H [Automate d message] code = 2025-3) The system [employer] generated this result transmit eugene reference range : 23 - 27 mEq/L. The reference range was not used to interpret this result as normal/abnormal . POC AB Bicarb (test 26 mmol/L 22-26 code = 1960-4) POC AB Base Ex (test 0 mmol/L -2-3 code = 50071-4) POC AB O2 Sat (test 78 % 95-98 L code = 2708-6) POC FiO2 (test code 100 = 3150-0) POC ABG Draw Site Rt Radial (test code = 6663) POC Elias Test (test Not Performed code = 65808-6) POC Sample Type Arterial (test code = 6690) POC Clean Dev (test Yes code = 6672) Performing Lab (test [facility] code = 50459) [facility] Cli nical Lab, [address], [place] [address]; Plant And Instrument Engineer: Guerline Olmstead MD; Waived Point of Care Testing - Luz Maria levi MD Lab Interpretation Abnormal (test code = 71780-8) [facility] [id number] 16:07:23 Test Item Value Reference Range Interpretation [...] d message] code = 2018-09) The system [employer] generated this result transmit eugene reference range : 35 - 45 mmHg. The reference range was not used to interpret this result as normal/abnormal . POC AB pO2 (test 46 See_Comment A [Automated message] code = 2702-7) The system [employer] generated this result transmit eugene reference range : 80 - 105 mmHg. The reference range was not used to interpret this result as normal/abnormal . POC AB TCO2 (test 28 See_Comment H [Automate d message] code = 2025-) The system [employer] generated this result transmit eugene reference range : 23 - 27 mEq/L. The reference range was not used to interpret this result as normal/abnormal . POC AB Bicarb (test 26 mmol/L 22-26 code = 1960-4) POC AB Base Ex (test 0 mmol/L -2-3 code = 97501-0) POC AB O2 Sat (test 78 % 95-98 L code = 2708-6) POC FiO2 (test code 100 = 3150-0) POC ABG Draw Site Rt Radial (test code = 6663) POC Elias Test (test Not Performed code = 08994-5) POC Sample Type Arterial (test code = 6690) POC Clean Dev (test Yes code = 6672) Performing Lab (test [facility] code = 62992) [facility] Cli [facility], [address], [place] [address]; Plant And Instrument Engineer: Guerline Olmstead MD; Waived Point of Care Testing - Luz Maria levi MD Lab Interpretation Abnormal (test code = 47525-3) [facility] [id number] 16:07:23 Test Item Value Reference Range Interpretation [...] d message] code = 2018-09) The system [employer] generated this result transmit eugene reference range : 35 - 45 mmHg. The reference range was not used to interpret this result as normal/abnormal . POC AB pO2 (test 46 See_Comment A [Automated message] code = 2703-7) The system [employer] generated this result transmit eugene reference range : 80 - 105 mmHg. The reference range was not used to interpret this result as normal/abnormal . POC AB TCO2 (test 28 See_Comment H [Automate d message] code = 2025-) The system [employer] generated this result transmit eugene reference range : 23 - 27 mEq/L. The reference range was not used to interpret this result as normal/abnormal . POC AB Bicarb (test 26 mmol/L 22-26 code = 1960-4) POC AB Base Ex (test 0 mmol/L -2-3 code = 58797-1) POC AB O2 Sat (test 78 % 95-98 L code = 2708-6) POC FiO2 (test code 100 = 3150-0) POC ABG Draw Site Rt Radial (test code = 6663) POC Elias Test (test Not Performed code = 20791-1) POC Sample Type Arterial (test code = 6690) POC Clean Dev (test Yes code = 6672) Performing Lab (test [facility] code = 63444) [facility] Cli nical Lab, [address], [place] [address]; Plant And Instrument Engineer: Guerline Olmstead MD; Waived Point of Care Testing - Luz Maria levi MD Lab Interpretation Abnormal (test code = 81227-4) [facility] [id number] 16:07:23 Test Item Value Reference Range Interpretation [...] d message] code = 2018-09) The system [employer] generated this result transmit eugene reference range : 35 - 45 mmHg. The reference range was not used to interpret this result as normal/abnormal . POC AB pO2 (test 46 See_Comment A [Automated message] code = 2703-7) The system [employer] generated this result transmit eugene reference range : 80 - 105 mmHg. The reference range was not used to interpret this result as normal/abnormal . POC AB TCO2 (test 28 See_Comment H [Automate d message] code = 2025-) The system [employer] generated this result transmit eugene reference range : 23 - 27 mEq/L. The reference range was not used to interpret this result as normal/abnormal . POC AB Bicarb (test 26 mmol/L 22-26 code = 1960-4) POC AB Base Ex (test 0 mmol/L -2-3 code = 59832-9) POC AB O2 Sat (test 78 % 95-98 L code = 2708-6) POC FiO2 (test code 100 = 3150-0) POC ABG Draw Site Rt Radial (test code = 6663) POC Elias Test (test Not Performed code = 85015-1) POC Sample Type Arterial (test code = 6690) POC Clean Dev (test Yes code = 6672) Performing Lab (test [facility] code = 29404) [facility] Cli nical Lab, [address] [facility] [address], [place] [address]; Plant And Instrument Engineer: Guerline Olmstead MD; Waived Point of Care Testing - Luz Maria levi MD Lab Interpretation Abnormal (test code = 46096-2) [facility] [id number] 16:07:23 Test Item Value Reference Range Interpretation [...] d message] code = 2018-09) The system [employer] generated this result transmit eugene reference range : 35 - 45 mmHg. The reference range was not used to interpret this result as normal/abnormal . POC AB pO2 (test 46 See_Comment A [Automated message] code = 7263-7) The system [employer] generated this result transmit eugene reference range : 80 - 105 mmHg. The reference range was not used to interpret this result as normal/abnormal . POC AB TCO2 (test 28 See_Comment H [Automate d message] code = 2025-) The system [employer] generated this result transmit eugene reference range : 23 - 27 mEq/L. The reference range was not used to interpret this result as normal/abnormal . POC AB Bicarb (test 26 mmol/L 22-26 code = 1960-4) POC AB Base Ex (test 0 mmol/L -2-3 code = 87869-2) POC AB O2 Sat (test 78 % 95-98 L code = 2708-6) POC FiO2 (test code 100 = 3150-0) POC ABG Draw Site Rt Radial (test code = 6663) POC Elias Test (test Not Performed code = 59697-4) POC Sample Type Arterial (test code = 6690) POC Clean Dev (test Yes code = 6672) Performing Lab (test [facility] code = 93311) [facility] Cli nical Lab, [address] [place] [address] [address], [place] [address]; Plant And Instrument Engineer: Guerline Olmstead MD; Waived Point of Care Testing - Luz Maria levi MD Lab Interpretation Abnormal (test code = 19557-0) [facility] [id number] 16:07:23 Test Item Value Reference Range Interpretation [...] d message] code = 2018-09) The system [employer] generated this result transmit eugene reference range : 35 - 45 mmHg. The reference range was not used to interpret this result as normal/abnormal . POC AB pO2 (test 46 See_Comment A [Automated message] code = 2703-7) The system [employer] generated this result transmit eugene reference range : 80 - 105 mmHg. The reference range was not used to interpret this result as normal/abnormal . POC AB TCO2 (test 28 See_Comment H [Automate d message] code = 2025-) The system [employer] generated this result transmit eugene reference range : 23 - 27 mEq/L. The reference range was not used to interpret this result as normal/abnormal . POC AB Bicarb (test 26 mmol/L 22-26 code = 1960-4) POC AB Base Ex (test 0 mmol/L -2-3 code = 95318-7) POC AB O2 Sat (test 78 % 95-98 L code = 2708-6) POC FiO2 (test code 100 = 3150-0) POC ABG Draw Site Rt Radial (test code = 6663) POC Elias Test (test Not Performed code = 14936-9) POC Sample Type Arterial (test code = 6690) POC Clean Dev (test Yes code = 6672) Performing Lab (test [facility] code = 08351) [facility] Cli nical Lab, [facility] [address], [place] [address]; Plant And Instrument Engineer: Guerline Olmstead MD; Waived Point of Care Testing - Luz Maria levi MD Lab Interpretation Abnormal (test code = 13702-1) [facility]21 Test Item Value Reference Range Interpretation Comments pH Kojo (test code = 7.31 7.32-7.43 L Results are 2746-6) corrected for a body temp of 37C pCO2 Kojo (test code = 35.9 See_Comment L [Auto mated message] 2020-05) The system [employer] generated this result transmit eugene reference range : 41.0 - 51.0 mmH g. The reference r ashley was not used to interpret this result as normal/abnormal . pO2 Kojo (test code = 56 mmHg 5-2) HCO3 Kojo (test code = 18 mmol/L 21-28 L 60043-1) Base Excess Kojo (test -7 mmol/L -2-3 L code = 1927-3) O2 Sat Kojo (test code = 90 % 2711-0) Lab Interpretation (test Abnormal code = 99201-5) [facility] 11:44:21 Test Item Value Reference Range Interpretation Comments pH Kojo (test code = 7.31 7.32-7.43 L Results are 2746-6) corrected for a body temp of 37C pCO2 Kojo (test code = 35.9 See_Comment L [Auto mated message] 2020-05) The system [employer] generated this result transmit eugene reference range : 41.0 - 51.0 mmH g. The reference r ashley was not used to interpret this result as normal/abnormal . pO2 Kojo (test code = 56 mmHg 2705-2) HCO3 Kojo (test code = 18 mmol/L 21-28 L 42503-6) Base Excess Kojo (test -7 mmol/L -2-3 L code = 1927-3) O2 Sat Kojo (test code = 90 % 2711-0) Lab Interpretation (test Abnormal code = 35254-8) [facility] 11:44:21 Test Item Value Reference Range Interpretation Comments pH Kojo (test code = 7.31 7.32-7.43 L Results are 2746-6) corrected for a body temp of 37C pCO2 Kojo (test code = 35.9 See_Comment L [Auto mated message] 2020-05) The system [employer] generated this result transmit eugene reference range : 41.0 - 51.0 mmH g. The reference r ashley was not used to interpret this result as normal/abnormal . pO2 Kojo (test code = 56 mmHg 2705-2) HCO3 Kojo (test code = 18 mmol/L 21-28 L 33445-4) Base Excess Kojo (test -7 mmol/L -2-3 L code = 1927-3) O2 Sat Kojo (test code = 90 % 2711-0) Lab Interpretation (test Abnormal code = 98349-8) [facility] 11:44:21 Test Item Value Reference Range Interpretation Comments pH Kojo (test code = 7.31 7.32-7.43 L Results are 2746-6) corrected for a body temp of 37C pCO2 Kojo (test code = 35.9 See_Comment L [Auto mated message] 2020-05) The system [employer] generated this result transmit eugene reference range : 41.0 - 51.0 mmH g. The reference r ashley was not used to interpret this result as normal/abnormal . pO2 Kojo (test code = 56 mmHg 2705-2) HCO3 Kojo (test code = 18 mmol/L 21-28 L 04064-1) Base Excess Kojo (test -7 mmol/L -2-3 L code = 1927-3) O2 Sat Kojo (test code = 90 % 2711-0) Lab Interpretation (test Abnormal code = 27499-0) [facility] 11:44:21 Test Item Value Reference Range Interpretation Comments pH Kojo (test code = 7.31 7.32-7.43 L Results are 2746-6) corrected for a body temp of 37C pCO2 Kojo (test code = 35.9 See_Comment L [Auto mated message] 2020-05) The system [employer] generated this result transmit eugene reference range : 41.0 - 51.0 mmH g. The reference r ashley was not used to interpret this result as normal/abnormal . pO2 Kojo (test code = 56 mmHg 2705-2) HCO3 Kojo (test code = 18 mmol/L 21-28 L 02712-6) Base Excess Kojo (test -7 mmol/L -2-3 L code = 1927-3) O2 Sat Kojo (test code = 90 % 2711-0) Lab Interpretation (test Abnormal code = 06822-4) [facility] 11:44:21 Test Item Value Reference Range Interpretation Comments pH Kojo (test code = 7.31 7.32-7.43 L Results are 2746-6) corrected for a body temp of 37C pCO2 Kojo (test code = 35.9 See_Comment L [Auto mated message] 2020-05) The system [employer] generated this result transmit eugene reference range : 41.0 - 51.0 mmH g. The reference r ashley was not used to interpret this result as normal/abnormal . pO2 Kojo (test code = 56 mmHg 2705-2) HCO3 Kojo (test code = 18 mmol/L 21-28 L 87208-8) Base Excess Kojo (test -7 mmol/L -2-3 L code = 1927-3) O2 Sat Kojo (test code = 90 % 2711-0) Lab Interpretation (test Abnormal code = 72158-8) [facility] 11:44:21 Test Item Value Reference Range Interpretation Comments pH Kojo (test code = 7.31 7.32-7.43 L Results are 2746-6) corrected for a body temp of 37C pCO2 Kojo (test code = 35.9 See_Comment L [Auto mated message] 2020-05) The system [employer] generated this result transmit eugene reference range : 41.0 - 51.0 mmH g. The reference r ashley was not used to interpret this result as normal/abnormal . pO2 Kojo (test code = 56 mmHg 2705-2) HCO3 Kojo (test code = 18 mmol/L 21-28 L 14728-1) Base Excess Kojo (test -7 mmol/L -2-3 L code = 1927-3) O2 Sat Kojo (test code = 90 % 2711-0) Lab Interpretation (test Abnormal code = 49762-2) [facility] 11:44:21 Test Item Value Reference Range Interpretation Comments pH Kojo (test code = 7.31 7.32-7.43 L Results are 2746-6) corrected for a body temp of 37C pCO2 Kojo (test code = 35.9 See_Comment L [Auto mated message] 2020-05) The system [employer] generated this result transmit eugene reference range : 41.0 - 51.0 mmH g. The reference r ashley was not used to interpret this result as normal/abnormal . pO2 Kojo (test code = 56 mmHg 2705-2) HCO3 Kojo (test code = 18 mmol/L 21-28 L 98852-0) Base Excess Kojo (test -7 mmol/L -2-3 L code = 1927-3) O2 Sat Kojo (test code = 90 % 2711-0) Lab Interpretation (test Abnormal code = 04750-2) [facility] 11:44:21 Test Item Value Reference Range Interpretation Comments pH Kojo (test code = 7.31 7.32-7.43 L Results are 2746-6) corrected for a body temp of 37C pCO2 Kojo (test code = 35.9 See_Comment L [Auto mated message] 2020-05) The system [employer] generated this result transmit eugene reference range : 41.0 - 51.0 mmH g. The reference r ashley was not used to interpret this result as normal/abnormal . pO2 Kojo (test code = 56 mmHg 2705-2) HCO3 Kojo (test code = 18 mmol/L 21-28 L 31242-5) Base Excess Kojo (test -7 mmol/L -2-3 L code = 1927-3) O2 Sat Kojo (test code = 90 % 2711-0) Lab Interpretation (test Abnormal code = 27450-9) [facility] 11:44:21 Test Item Value Reference Range Interpretation Comments pH Kojo (test code = 7.31 7.32-7.43 L Results are 2746-6) corrected for a body temp of 37C pCO2 Kojo (test code = 35.9 See_Comment L [Auto mated message] 2020-05) The system [employer] generated this result transmit eugene reference range : 41.0 - 51.0 mmH g. The reference r ashley was not used to interpret this result as normal/abnormal . pO2 Kojo (test code = 56 mmHg 2705-2) HCO3 Kojo (test code = 18 mmol/L 21-28 L 72698-6) Base Excess Kojo (test -7 mmol/L -2-3 L code = 1927-3) O2 Sat Kojo (test code = 90 % 2711-0) Lab Interpretation (test Abnormal code = 07735-6) [facility] 11:44:21 Test Item Value Reference Range Interpretation Comments pH Kojo (test code = 7.31 7.32-7.43 L Results are 2746-6) corrected for a body temp of 37C pCO2 Kojo (test code = 35.9 See_Comment L [Auto mated message] 2020-05) The system [employer] generated this result transmit eugene reference range : 41.0 - 51.0 mmH g. The reference r ashley was not used to interpret this result as normal/abnormal . pO2 Kojo (test code = 56 mmHg 2705-2) HCO3 Kojo (test code = 18 mmol/L 21-28 L 92070-4) Base Excess Kojo (test -7 mmol/L -2-3 L code = 1927-3) O2 Sat Kojo (test code = 90 % 2711-0) Lab Interpretation (test Abnormal code = 19874-5) [facility] 11:44:21 Test Item Value Reference Range Interpretation Comments pH Kojo (test code = 7.31 7.32-7.43 L Results are 2746-6) corrected for a body temp of 37C pCO2 Kojo (test code = 35.9 See_Comment L [Auto mated message] 2020-05) The system [employer] generated this result transmit eugene reference range : 41.0 - 51.0 mmH g. The reference r ashley was not used to interpret this result as normal/abnormal . pO2 Kojo (test code = 56 mmHg 2705-2) HCO3 Kojo (test code = 18 mmol/L 21-28 L 68838-0) Base Excess Kojo (test -7 mmol/L -2-3 L code = 1927-3) O2 Sat Kojo (test code = 90 % 2711-0) Lab Interpretation (test Abnormal code = 92243-5) [facility] [id number] 07:39:31 Test Item Value Reference Range Interpretation Comments Calcium Lvl (test code = 54938-5) 7.7 mg/dL 8.4-10.2 L Lab Interpretation (test code = Abnormal 48617-5) [facility] [id number] 07:39:31 Test Item Value Reference Range Interpretation Comments Calcium Lvl (test code = 90967-4) 7.7 mg/dL 8.4-10.2 L Lab Interpretation (test code = Abnormal 27889-1) [facility] [id number] 07:39:31 Test Item Value Reference Range Interpretation Comments Calcium Lvl (test code = 78084-2) 7.7 mg/dL 8.4-10.2 L Lab Interpretation (test code = Abnormal 68009-9) [facility] [id number] 07:39:31 Test Item Value Reference Range Interpretation Comments Calcium Lvl (test code = 65695-2) 7.7 mg/dL 8.4-10.2 L Lab Interpretation (test code = Abnormal 61594-7) [facility] [id number] 07:39:31 Test Item Value Reference Range Interpretation Comments Calcium Lvl (test code = 95356-1) 7.7 mg/dL 8.4-10.2 L Lab Interpretation (test code = Abnormal 87599-9) [facility] [id number] 07:39:31 Test Item Value Reference Range Interpretation Comments Calcium Lvl (test code = 46353-0) 7.7 mg/dL 8.4-10.2 L Lab Interpretation (test code = Abnormal 17297-5) [facility] [id number] 07:39:31 Test Item Value Reference Range Interpretation Comments Calcium Lvl (test code = 18465-6) 7.7 mg/dL 8.4-10.2 L Lab Interpretation (test code = Abnormal 38069-5) [facility] [id number] 09:06:45 Test Item Value Reference Range Interpretation Comments ABORh Confirm. (test code = 882-1) A POS [facility] Center[facility] [id number] 09:06:45 Test Item Value Reference Range Interpretation Comments ABORh Confirm. (test code = 882-1) A POS [facility] [id number] 09:06:45 Test Item Value Reference Range Interpretation Comments ABORh Confirm. (test code = 882-1) A POS [facility] [id number] 09:06:45 Test Item Value Reference Range Interpretation Comments ABORh Confirm. (test code = 882-1) A POS [facility] [id number] 09:06:45 Test Item Value Reference Range Interpretation Comments ABORh Confirm. (test code = 882-1) A POS [facility] [id number] 09:06:45 Test Item Value Reference Range Interpretation Comments ABORh Confirm. (test code = 882-1) A POS [facility] [id number] 09:06:45 Test Item Value Reference Range Interpretation Comments ABORh Confirm. (test code = 882-1) A POS [facility] [id number] 09:06:45 Test Item Value Reference Range Interpretation Comments ABORh Confirm. (test code = 882-1) A POS [facility] Center[facility] [id number] 09:06:45 Test Item Value Reference Range Interpretation Comments ABORh Confirm. (test code = 882-1) A POS [facility] Center[facility] [id number] 09:06:45 Test Item Value Reference Range Interpretation Comments ABORh Confirm. (test code = 882-1) A POS [facility] Center[facility] [id number] 09:06:45 Test Item Value Reference Range Interpretation Comments ABORh Confirm. (test code = 882-1) A POS [facility] Center[facility] [id number] 09:06:45 Test Item Value Reference Range Interpretation Comments ABORh Confirm. (test code = 882-1) A POS [facility] Center[facility]inal[facility] Microscopic Exam 2022-03-25 08:08:13 Test Item Value Reference Range Interpretation Comments UA WBC (test code = See_Comment H Some rep orting 45873-9) parameters with in the Urinalysis test have changed due to the implementation of new instrumentation in the [facility], [facility] [place] sens[place] vity of measurement. Urinalysis resu lts reported by the [facility] C enters using existing instrumentation , as well as Urinaly sis testing perform ed manually or by backup methodology at the [facility] yola l remain relative ly unchanged. New [...] = 11 See_Comment H [Automa eugene message] 41171-5) The system [employer] generated this result transmitted ref erence range: 0 - 2 /H PF. The reference range was not used to int erpret this result as normal/abnormal . UA Mucous (test code = TRACE Not Seen-Trace 27168-4) /HPF UA Bacteria (test code NOT SEEN NOT SEEN /HPF = 12949-3) UA Squam Epi (test 1+ None-Occasional A code = 27297-3) /HPF Lab Interpretation Abnormal (test code = 53331-7) [facility] Center[facility] Microsc[facility] Ex[facility] 2022-03-25 08:08:13 Test Item Value Reference Range Interpretation Comments UA WBC (test code = See_Comment H Some rep orting 65866-1) parameters with in the Urinalysis test have changed due to the implementation of new instrumentation in the [facility], al lowing greater sensiti vity of measurement. Urinalysis resu lts reported by the [facility] C enters using existing instrumentation , as well as Urinaly sis testing perform ed manually or by backup methodology at the [facility] yola l remain relative ly unchanged. New reporting tracie eters and units will not be reported for [facility]. [Auto mated message] The sy stem which generated this result transmit eugene reference range : 0 - 2 /HPF. The refer ence range was not u sed to interpret this result as normal/abnor mal. UA RBC (test code = 11 See_Comment H [Automa eugene message] 44408-9) The system [employer] generated this result transmitted ref erence range: 0 - 2 /H PF. The reference range was not used to int erpret this result as normal/abnormal . UA Mucous (test code = TRACE Not Seen-Trace 43021-6) /HPF UA Bacteria (test code NOT SEEN NOT SEEN /HPF = 76561-9) UA Squam Epi (test 1+ None-Occasional A code = 33075-2) /HPF Lab Interpretation Abnormal (test code = 96364-3) [facility] Center[facility] Micro[facility] Exam 2022-03-25 08:08:13 Test Item Value Reference Range Interpretation Comments UA WBC (test code = See_Comment H Some rep orting 06318-9) parameters with in the Urinalysis test have changed due to the implementation of new instrumentation in the Main [place], [place] lowing greater sensiti vity of measurement. Urinalysis resu lts reported by the [facility] C enters using existing instrumentation , as well as Urinaly sis testing perform ed manually or by backup methodology at the [facility] yola l remain relative ly unchanged. New reporting tracie eters and units will not be reported for [facility]. [Auto mated message] The sy stem which generated this result transmit eugene reference range : 0 - 2 /HPF. The refer ence range was not u sed to interpret this result as normal/abnor mal. UA RBC (test code = 11 See_Comment H [Automa eugene message] 87680-2) The system [employer] generated this result transmitted ref erence range: 0 - 2 /H PF. The reference range was not used to int erpret this result as normal/abnormal . UA Mucous (test code = TRACE Not Seen-Trace 92508-9) /HPF UA Bacteria (test code NOT SEEN NOT SEEN /HPF = 20097-7) UA Squam Epi (test 1+ None-Occasional A code = 97675-5) /HPF Lab Interpretation Abnormal (test code = 02116-3) [facility] 08:08:13 Test Item Value Reference Range Interpretation Comments UA WBC (test code = See_Comment H Some rep orting 63663-4) parameters with in the Urinalysis test have changed due to the implementation of new instrumentation in the [facility], [facility] sensiti vity of measurement. Urinalysis resu lts reported by the [facility] C enters using existing instrumentation , as well as Urinaly sis testing perform ed manually or by backup methodology at the [facility] yola l remain relative ly unchanged. New reporting tracie eters and units will not be reported for [facility]. [Auto mated message] The sy stem which generated this result transmit eugene reference range : 0 - 2 /HPF. The refer ence range was not u sed to interpret this result as normal/abnor mal. UA RBC (test code = 11 See_Comment H [Automa eugene message] 87874-9) The system [employer] generated this result transmitted ref erence range: 0 - 2 /H PF. The reference range was not used to int erpret this result as normal/abnormal . UA Mucous (test code = TRACE Not Seen-Trace 28368-3) /HPF UA Bacteria (test code NOT SEEN NOT SEEN /HPF = 44228-1) UA Squam Epi (test 1+ None-Occasional A code = 18028-6) /HPF Lab Interpretation Abnormal (test code = 71556-9) [facility] 2022-03-25 08:08:13 Test Item Value Reference Range Interpretation Comments UA WBC (test code = See_Comment H Some rep orting 44095-9) parameters with in the Urinalysis test have changed due to the implementation of new instrumentation in the [facility], al lowing greater sensiti vity of measurement. Urinalysis resu lts reported by the [facility] C enters using existing instrumentation , as well as Urinaly sis testing perform ed manually or by backup methodology at the [facility] yola l remain relative ly unchanged. New reporting tracie eters and units will not be reported for [facility]. [Auto mated message] The sy stem which generated this result transmit eugene reference range : 0 - 2 /HPF. The refer ence range was not u sed to interpret this result as normal/abnor mal. UA RBC (test code = 11 See_Comment H [Automa eugene message] 89004-4) The system [employer] generated this result transmitted ref erence range: 0 - 2 /H PF. The reference range was not used to int erpret this result as normal/abnormal . UA Mucous (test code = TRACE Not Seen-Trace 16550-0) /HPF UA Bacteria (test code NOT SEEN NOT SEEN /HPF = 74702-4) UA Squam Epi (test 1+ None-Occasional A code = 86354-8) /HPF Lab Interpretation Abnormal (test code = 50487-7) [facility] 08:08:13 Test Item Value Reference Range Interpretation Comments UA WBC (test code = See_Comment H Some rep orting 19638-4) parameters with in the Urinalysis test have changed due to the implementation of new instrumentation in the [facility], al lowing greater sensiti vity of measurement. Urinalysis resu lts reported by the [facility] C enters using existing instrumentation , as well as Urinaly sis testing perform ed manually or by backup methodology at the [facility] yola l remain relative ly unchanged. New reporting tracie eters and units will not be reported for [facility]. [Auto mated message] The sy stem which generated this result transmit eugene reference range : 0 - 2 /HPF. The refer ence range was not u sed to interpret this result as normal/abnor mal. UA RBC (test code = 11 See_Comment H [Automa eugene message] 26610-5) The system [employer] generated this result transmitted ref erence range: 0 - 2 /H PF. The reference range was not used to int erpret this result as normal/abnormal . UA Mucous (test code = TRACE Not Seen-Trace 00891-8) /HPF UA Bacteria (test code NOT SEEN NOT SEEN /HPF = 49756-3) UA Squam Epi (test 1+ None-Occasional A code = 13876-9) /HPF Lab Interpretation Abnormal (test code = 89821-8) [facility] 2022-03-25 08:08:13 Test Item Value Reference Range Interpretation Comments UA WBC (test code = See_Comment H Some rep orting 61552-3) parameters with in the Urinalysis test have changed due to the implementation of new instrumentation in the Main [place], [place] low[place] greater sensiti vity of measurement. Urinalysis resu lts reported by the [facility] C enters using existing instrumentation , as well as Urinaly sis testing perform ed manually or by backup methodology at the [facility] yola l remain relative ly unchanged. New [...] = 11 See_Comment H [Automa eugene message] 62648-0) The system [employer] generated this result transmitted ref erence range: 0 - 2 /H PF. The reference range was not used to int erpret this result as normal/abnormal . UA Mucous (test code = TRACE Not Seen-Trace 37611-4) /HPF UA Bacteria (test code NOT SEEN NOT SEEN /HPF = 36524-2) UA Squam Epi (test 1+ None-Occasional A code = 90601-0) /HPF Lab Interpretation Abnormal (test code = 60402-8) [facility] 2022-03-25 08:08:13 Test Item Value Reference Range Interpretation Comments UA WBC (test code = See_Comment H Some rep orting 31558-9) parameters with in the Urinalysis test have changed due to the implementation of new instrumentation in the [place], [place] greater sensiti vity of measurement. Urinalysis resu lts reported by the [facility] enters using existing instrumentation , as well as Urinaly sis testing perform ed manually or by backup methodology at the [facility] yola l remain relative ly unchanged. New reporting tracie eters and units will not be reported for [facility]. [Auto mated message] The sy stem which generated this result transmit eugene reference range : 0 - 2 /HPF. The refer ence range was not u sed to interpret this result as normal/abnor mal. UA RBC (test code = 11 See_Comment H [Automa eugene message] 19624-5) The system [employer] generated this result transmitted ref erence range: 0 - 2 /H PF. The reference range was not used to int erpret this result as normal/abnormal . UA Mucous (test code = TRACE Not Seen-Trace 28362-7) /HPF UA Bacteria (test code NOT SEEN NOT SEEN /HPF = 83710-7) UA Squam Epi (test 1+ None-Occasional A code = 64808-5) /HPF Lab Interpretation Abnormal (test code = 17383-0) [facility] 2022-03-25 08:08:13 Test Item Value Reference Range Interpretation Comments UA WBC (test code = See_Comment H Some rep orting 72518-8) parameters with in the Urinalysis test have changed due to the implementation of new instrumentation in the [facility], al lowing greater sensiti vity of measurement. Urinalysis resu lts reported by the [facility] enters using existing instrumentation , as well as Urinaly sis testing perform ed manually or by backup methodology at the [facility] [place] l remain relative ly unchanged. New reporting tracie eters and units will not be reported for [facility]. [Auto mated message] The sy stem which generated this result transmit eugene reference range : 0 - 2 /HPF. The refer ence range was not u sed to interpret this result as normal/abnor mal. UA RBC (test code = 11 See_Comment H [Automa eugene message] 95018-1) The system [employer] generated this result transmitted ref erence range: 0 - 2 /H PF. The reference range was not used to int erpret this result as normal/abnormal . UA Mucous (test code = TRACE Not Seen-Trace 13337-8) /HPF UA Bacteria (test code NOT SEEN NOT SEEN /HPF = 67325-7) UA Squam Epi (test 1+ None-Occasional A code = 32375-1) /HPF Lab Interpretation Abnormal (test code = 40282-4) [facility] 2022-03-25 08:08:13 Test Item Value Reference Range Interpretation Comments UA WBC (test code = See_Comment H Some rep orting 26646-7) parameters with in the Urinalysis test have changed due to the implementation of new instrumentation in the [facility] [place], [place] greater sensiti vity of measurement. Urinalysis resu lts reported by the [facility] C enters using existing instrumentation , as well as Urinaly sis testing perform ed manually or by backup methodology at the [facility] yola l remain relative ly unchanged. New reporting tracie eters and units will not be [facility] [Auto mated message] The sy stem which generated this result transmit eugene reference range : 0 - 2 /HPF. The refer ence range was not u sed to interpret this result as normal/abnor mal. UA RBC (test code = 11 See_Comment H [Automa eugene message] 99335-3) The system [employer] generated this result transmitted ref erence range: 0 - 2 /H PF. The reference range was not used to int erpret this result as normal/abnormal . UA Mucous (test code = TRACE Not Seen-Trace 96634-9) /HPF UA Bacteria (test code NOT SEEN NOT SEEN /HPF = 65901-0) UA Squam Epi (test 1+ None-Occasional A code = 80353-2) /HPF Lab Interpretation Abnormal (test code = 58220-1) [facility] 2022-03-25 08:08:13 Test Item Value Reference Range Interpretation Comments UA WBC (test code = See_Comment H Some rep orting 11905-5) parameters with in the Urinalysis test have changed due to the implementation of new instrumentation in the [place], [place] lowing greater sensiti vity of measurement. Urinalysis resu lts reported by the [facility] C enters using existing instrumentation , as well as Urinaly sis testing perform ed manually or by backup methodology at the [facility] yola l remain relative ly unchanged. New reporting tracie eters and units will not be reported for [facility]. [Auto mated message] The sy stem which generated this result transmit eugene reference range : 0 - 2 /HPF. The refer ence range was not u sed to interpret this result as normal/abnor mal. UA RBC (test code = 11 See_Comment H [Automa eugene message] 18526-8) The system [employer] generated this result transmitted ref erence range: 0 - 2 /H PF. The reference range was not used to int erpret this result as normal/abnormal . UA Mucous (test code = TRACE Not Seen-Trace 94355-1) /HPF UA Bacteria (test code NOT SEEN NOT SEEN /HPF = 40098-5) UA Squam Epi (test 1+ None-Occasional A code = 57136-1) /HPF Lab Interpretation Abnormal (test code = 32786-4) [facility] 2022-03-25 08:08:13 Test Item Value Reference Range Interpretation Comments UA WBC (test code = See_Comment H Some rep orting 05507-4) parameters with in the Urinalysis test have changed due to the implementation of new instrumentation in the [facility], al lowing greater sensiti vity of measurement. Urinalysis resu lts reported by the [facility] C enters using existing instrumentation , as well as Urinaly sis testing perform ed manually or by backup methodology at the [facility] yola l remain relative ly unchanged. New reporting tracie eters and units will not be reported for [facility]. [Auto mated message] The sy stem which generated this result transmit eugene reference range : 0 - 2 /HPF. The refer ence range was not u sed to interpret this result as normal/abnor mal. UA RBC (test code = 11 See_Comment H [Automa eugene message] 94806-1) The system [employer] generated this result transmitted ref erence range: 0 - 2 /H PF. The reference range was not used to int erpret this result as normal/abnormal . UA Mucous (test code = TRACE Not Seen-Trace 86468-3) /HPF UA Bacteria (test code NOT SEEN NOT SEEN /HPF = 15769-7) UA Squam Epi (test 1+ None-Occasional A code = 19805-5) /HPF Lab Interpretation Abnormal (test code = 62841-6) [facility] Test Item Value Reference Range Interpretation [...] Valid (test code = 6710) Performing Lab [facility] (test code = of Toby HENDERSON And soraya 94785) Clinical Lab, [address] [place] [address] 30; Plant And Instrument Engineer: Guerline Olmstead MD; Waived Point of Care Testing - Luz Maria levi MD [facility] 07:[facility]33 Test Item Value Reference Range Interpretation [...] Valid (test code = 6710) Performing Lab [facility] (test code = of Toby HENDERSON And ersflaco 04842) Clinical Lab, [address] [place] [address] 30; Plant And Instrument Engineer: Guerline Olmstead MD; Waived Point of Care Testing - Luz Maria levi MD [facility] 07:26:33 Test Item Value Reference Range Interpretation [...] Valid (test code = 6710) Performing Lab [facility] (test code = of Toby Worrell 28658) Clinical Lab, [address] [place] [address] 30; Plant And Instrument Engineer: Guerline Olmstead MD; Waived Point of Care Testing - Luz Maria levi MD [facility] 07:26:33 Test Item Value Reference Range Interpretation [...] Valid (test code = 6710) Performing Lab [facility] (test code = of Toby HENDERSON And erson 65390) Clinical Lab, [address] [place] [address] 30; Plant And Instrument Engineer: Guerline Olmstead MD; Waived Point of Care Testing - Luz Maria levi MD [facility] 07:26:33 Test Item Value Reference Range Interpretation [...] Valid (test code = 6710) Performing Lab [facility] (test code = of Toby Worrell 80807) Clinical Lab, [address] [place] [address] [place] [address] 30; Plant And Instrument Engineer: Guerline Olmstead MD; Waived Point of Care Testing - Luz Maria levi MD [facility] 07:26:33 Test Item Value Reference Range Interpretation [...] Valid (test code = 6710) Performing Lab [facility] (test code = of Toby HENDERSON And erson 36268) Clinical Lab, [address] [place] [address] 30; Plant And Instrument Engineer: Guerline Olmstead MD; Waived Point of Care Testing - Luz Maria levi MD [facility] 07:26:33 Test Item Value Reference Range Interpretation [...] Valid (test code = 6710) Performing Lab [facility] (test code = of Toby HENDERSON And erson 91308) Clinical Lab, [address] [place] [address] 30; Plant And Instrument Engineer: Guerline Olmstead MD; Waived Point of Care Testing - uLz Maria levi MD [facility] 07:26:33 Test Item Value Reference Range Interpretation [...] Valid (test code = 6710) Performing Lab [facility] (test code = of Toby Worrell 05798) Clinical Lab, [address] [place] [address]; Plant And Instrument Engineer: Guerline Olmstead MD; Waived Point of Care Testing - Luz Maria levi MD [facility] 07:26:33 Test Item Value Reference Range Interpretation [...] Valid (test code = 6710) Performing Lab [facility] (test code = of Toby HENDERSON And soraya 56510) Clinical Lab, [address] [place] [address] 30; Plant And Instrument Engineer: Guerline Olmstead MD; Waived Point of Care Testing - Luz Maria levi MD [facility] [id number] 07:26:33 Test Item Value Reference Range Interpretation [...] Valid (test code = 6710) Performing Lab [facility] (test code = of Toby HENDERSON And ersflaco 19028) Clinical Lab, [address] [place] [address], [place] [address]; Plant And Instrument Engineer: Guerline Olmstead MD; Waived Point of Care Testing - Luz Maria [facility] 07:26:33 Test Item Value Reference Range Interpretation [...] Valid (test code = 6710) Performing Lab [facility] (test code = of Toby HENDERSON And soraya 50818) Clinical Lab, [address] [place] [address] 30; Plant And Instrument Engineer: Guerline Olmstead MD; Waived Point of Care Testing - Luz Maria levi MD [facility] 07:26:33 Test Item Value Reference Range Interpretation [...] Valid (test code = 6710) Performing Lab [facility] (test code = of Toby HENDERSON And soraya 48239) Clinical Lab, [address] [place] [address] 30; Plant And Instrument Engineer: Guerline Olmstead MD; Waived Point of Care Testing - Luz Maria levi MD [facility]/Microscopic if [id number] 06:57:19 Test Item Value Reference Range Interpretation Comments UA Color (test code = 16328-1) Yellow Straw-Yellow UA Appear (test code = 34719-2) Hazy Clear A UA Glucose (test code [...] A Lab Interpretation (test code = Abnormal 92317-0) [facility]/Microscopic if [id number] 06:57:19 Test Item Value Reference Range Interpretation Comments UA Color (test code = 59563-4) Yellow Straw-Yellow UA Appear (test code = 70293-7) Hazy Clear A UA Glucose (test code [...] A Lab Interpretation (test code = Abnormal 90769-1) [facility]/Microscopic if [id number] 06:57:19 Test Item Value Reference Range Interpretation Comments UA Color (test code = 25723-2) Yellow Straw-Yellow UA Appear (test code = 20332-2) Hazy Clear A UA Glucose (test code [...] A Lab Interpretation (test code = Abnormal 92768-1) [facility]/Microscopic if [id number] 06:57:19 Test Item Value Reference Range Interpretation Comments UA Color (test code = 05434-4) Yellow Straw-Yellow UA Appear (test code = 64515-8) Hazy Clear A UA Glucose (test code [...] A Lab Interpretation (test code = Abnormal 51722-4) [facility]/Microscopic if [id number] 06:57:19 Test Item Value Reference Range Interpretation Comments UA Color (test code = 80011-1) Yellow Straw-Yellow UA Appear (test code = 60217-1) Hazy Clear A UA Glucose (test code [...] A Lab Interpretation (test code = Abnormal 43280-5) [facility]/Microscopic if [id number] 06:57:19 Test Item Value Reference Range Interpretation Comments UA Color (test code = 78816-2) Yellow Straw-Yellow UA Appear (test code = 82564-8) Hazy Clear A UA Glucose (test code [...] A Lab Interpretation (test code = Abnormal 86397-2) [facility]/Microscopic if [id number] 06:57:19 Test Item Value Reference Range Interpretation Comments UA Color (test code = 24087-7) Yellow Straw-Yellow UA Appear (test code = 88594-2) Hazy Clear A UA Glucose (test code [...] A Lab Interpretation (test code = Abnormal 17095-3) [facility]/Microscopic if [id number] 06:57:19 Test Item Value Reference Range Interpretation Comments UA Color (test code = 55330-9) Yellow Straw-Yellow UA Appear (test code = 43038-6) Hazy Clear A UA Glucose (test code [...] A Lab Interpretation (test code = Abnormal 62197-8) [facility]/Microscopic if [id number] 06:57:19 Test Item Value Reference Range Interpretation Comments UA Color (test code = 70937-9) Yellow Straw-Yellow UA Appear (test code = 90591-7) Hazy Clear A UA Glucose (test code [...] A Lab Interpretation (test code = Abnormal 93651-5) [facility]/Microscopic if [id number] 06:57:19 Test Item Value Reference Range Interpretation Comments UA Color (test code = 03556-4) Yellow Straw-Yellow UA Appear (test code = 14682-4) Hazy Clear A UA Glucose (test code [...] A Lab Interpretation (test code = Abnormal 88193-6) [facility]/Microscopic if [id number] 06:57:19 Test Item Value Reference Range Interpretation Comments UA Color (test code = 99317-0) Yellow Straw-Yellow UA Appear (test code = 17684-1) Hazy Clear A UA Glucose (test code [...] A Lab Interpretation (test code = Abnormal 27015-9) [facility]/Microscopic if [id number] 06:57:19 Test Item Value Reference Range Interpretation Comments UA Color (test code = 62511-4) Yellow Straw-Yellow UA Appear (test code = 91704-0) Hazy Clear A UA Glucose (test code [...] A Lab Interpretation (test code = Abnormal 79482-8) [facility], Nasopharyngeal Gzoi8332-16-10 06:28:01 Test Item Value Reference Range Interpretation Comments RMP Source (test code = Not Applicable 8653) Adenovirus (test code = Not Detected Not Detected 74558-8) Coronavirus 229E (test Not Detected Not Detected code = 31684-4) Coronavirus HKU1 (test Not Detected Not Detected code = 11429-1) Coronavirus NL63 (test Not Detected Not Detected code = 59291-6) Coronavirus OC43 (test Not Detected Not Detected code = 70306-4) COVID19 (SARS-CoV-2) Not Detected Not Detected (test code = 03715-8) Human Metapneumovirus Not Detected Not Detected (test code = 00435-1) Human Not Detected Not Detected Rhinovirus/Enterovirus (test code = 40124-2) Influenza A (test code Not Detected Not Detected = 41664-9) Influenza A H1 (test Not Detected Not Detected code = 26526-0) Influenza A H1 2009 Not Detected Not Detected (test code = 79320-6) Influenza A H3 (test Not Detected Not Detected code = 08307-9) Influenza B (test code Not Detected Not Detected = 13702-4) Parainfluenza 1 (test Not Detected Not Detected code = 26253-3) Parainfluenza 2 (test Not Detected Not Detected code = 59194-2) Parainfluenza 3 (test Not Detected Not Detected code = 54647-8) Parainfluenza 4 (test Not Detected Not Detected code = 00163-1) Respiratory Syncytial Not Detected Not Detected Virus (test code = 57937-7) Bordetella Not Detected Not Detected Parapertussis (test code = 81890-9) Bordetella pertussis Not Detected Not Detected (test code = 43054-7) Chlamydiophila Not Detected Not Detected pneumoniae (test code = 42076-0) Mycoplasma pneumoniae Not Detected Not Detected (test code = 32139-3) CHANDRAKANT (test code = CHANDRAKANT) Has patient had a positive for COVID-19 result in the last 3 months?->No The BioFire RP2.1 is a real-time, nested multiplexed polymerase chain reaction test designed to simultaneously identify nucleic acids from 22 different viruses and bacteria associated with respiratory tract infection, including SARS-CoV-2, from a single nasopharyngeal swab (ELECTRICIAN HELPER) specimen obtained from individuals suspected of respiratory [...] that may not be detected by an ELECTRICIAN HELPER specimen. Internal controls are used to monitor [...] and high-complexity tests. The Microbiology Laboratory at [facility], CLIA Accreditation #[id number] and CAP Accreditation #[id number], verified the performance characteristics of this assay. Microbiology Laboratory at [facility] performs the assay using the [employer]. [facility], Nasopharyngeal [id number] 06:28:01 Test Item Value Reference Range Interpretation Comments RMP Source (test code = Not Applicable 8653) Adenovirus (test code = Not Detected Not Detected 09564-2) Coronavirus 229E (test Not Detected Not Detected code = 09241-0) Coronavirus HKU1 (test Not Detected Not Detected code = 28477-0) Coronavirus NL63 (test Not Detected Not Detected code = 22850-5) Coronavirus OC43 (test Not Detected Not Detected code = 76596-1) COVID19 (SARS-CoV-2) Not Detected Not Detected (test code = 93052-3) Human Metapneumovirus Not Detected Not Detected (test code = 34905-0) Human Not Detected Not Detected Rhinovirus/Enterovirus (test code = 95946-4) Influenza A (test code Not Detected Not Detected = 83338-4) Influenza A H1 (test Not Detected Not Detected code = 91707-5) Influenza A H1 2009 Not Detected Not Detected (test code = 88821-6) Influenza A H3 (test Not Detected Not Detected code = 38793-6) Influenza B (test code Not Detected Not Detected = 02552-6) Parainfluenza 1 (test Not Detected Not Detected code = 79251-7) Parainfluenza 2 (test Not Detected Not Detected code = 58098-3) Parainfluenza 3 (test Not Detected Not Detected code = 01457-0) Parainfluenza 4 (test Not Detected Not Detected code = 98037-3) Respiratory Syncytial Not Detected Not Detected Virus (test code = 17949-1) Bordetella Not Detected Not Detected Parapertussis (test code = 52445-8) Bordetella pertussis Not Detected Not Detected (test code = 09998-4) Chlamydiophila Not Detected Not Detected pneumoniae (test code = 76288-9) Mycoplasma pneumoniae Not Detected Not Detected (test code = 47853-3) CHANDRAKANT (test code = CHANDRAKANT) Has patient had a positive for COVID-19 result in the last 3 months?->No The BioFire RP2.1 is a real-time, nested multiplexed polymerase chain reaction test designed to simultaneously identify nucleic acids from 22 different viruses and bacteria associated with respiratory tract infection, including SARS-CoV-2, from a single nasopharyngeal swab (ELECTRICIAN HELPER) specimen obtained from individuals suspected of respiratory [...] that may not be detected by an ELECTRICIAN HELPER specimen. Internal controls are used to monitor [...] and high-complexity tests. The Microbiology Laboratory at [facility], CLIA Accreditation #[id number] and CAP Accreditation #[id number], verified the performance characteristics of this assay. Microbiology Laboratory at [facility] performs the assay using the [employer]. [facility], Nasopharyngeal [id number] 06:28:01 Test Item Value Reference Range Interpretation Comments RMP Source (test code = Not Applicable 8653) Adenovirus (test code = Not Detected Not Detected 32763-3) Coronavirus 229E (test Not Detected Not Detected code = 05414-7) Coronavirus HKU1 (test Not Detected Not Detected code = 35398-9) Coronavirus NL63 (test Not Detected Not Detected code = 91568-3) Coronavirus OC43 (test Not Detected Not Detected code = 25590-8) COVID19 (SARS-CoV-2) Not Detected Not Detected (test code = 48773-8) Human Metapneumovirus Not Detected Not Detected (test code = 12349-6) Human Not Detected Not Detected Rhinovirus/Enterovirus (test code = 47778-6) Influenza A (test code Not Detected Not Detected = 05908-3) Influenza A H1 (test Not Detected Not Detected code = 66168-0) Influenza A H1 2009 Not Detected Not Detected (test code = 26726-7) Influenza A H3 (test Not Detected Not Detected code = 24630-4) Influenza B (test code Not Detected Not Detected = 62717-8) Parainfluenza 1 (test Not Detected Not Detected code = 86347-5) Parainfluenza 2 (test Not Detected Not Detected code = 61506-9) Parainfluenza 3 (test Not Detected Not Detected code = 37115-9) Parainfluenza 4 (test Not Detected Not Detected code = 18831-3) Respiratory Syncytial Not Detected Not Detected Virus (test code = 37297-2) Bordetella Not Detected Not Detected Parapertussis (test code = 51665-6) Bordetella pertussis Not Detected Not Detected (test code = 52241-0) Chlamydiophila Not Detected Not Detected pneumoniae (test code = 77180-0) Mycoplasma pneumoniae Not Detected Not Detected (test code = 75584-2) CHANDRAKANT (test code = CHANDRAKANT) Has patient had a positive for COVID-19 result in the last 3 months?->No The BioFire RP2.1 is a real-time, nested multiplexed polymerase chain reaction test designed to simultaneously identify nucleic acids from 22 different viruses and bacteria associated with respiratory tract infection, including SARS-CoV-2, from a single nasopharyngeal swab (ELECTRICIAN HELPER) specimen obtained from individuals suspected of respiratory [...] that may not be detected by an ELECTRICIAN HELPER specimen. Internal controls are used to monitor [...] and high-complexity tests. The Microbiology Laboratory at [facility], CLIA Accreditation #[id number] and CAP Accreditation #[id number], verified the performance characteristics of this assay. Microbiology Laboratory at [facility] performs the assay using the [employer]. [facility] Center[facility], Nasopharyngeal [id number] 06:28:01 Test Item Value Reference Range Interpretation Comments RMP Source (test code = Not Applicable 8653) Adenovirus (test code = Not Detected Not Detected 38477-2) Coronavirus 229E (test Not Detected Not Detected code = 90764-7) Coronavirus HKU1 (test Not Detected Not Detected code = 56144-1) Coronavirus NL63 (test Not Detected Not Detected code = 77990-6) Coronavirus OC43 (test Not Detected Not Detected code = 75793-4) COVID19 (SARS-CoV-2) Not Detected Not Detected (test code = 34250-7) Human Metapneumovirus Not Detected Not Detected (test code = 58114-7) Human Not Detected Not Detected Rhinovirus/Enterovirus (test code = 01817-7) Influenza A (test code Not Detected Not Detected = 64971-1) Influenza A H1 (test Not Detected Not Detected code = 04853-1) Influenza A H1 2009 Not Detected Not Detected (test code = 48146-0) Influenza A H3 (test Not Detected Not Detected code = 09629-5) Influenza B (test code Not Detected Not Detected = 26963-9) Parainfluenza 1 (test Not Detected Not Detected code = 25632-3) Parainfluenza 2 (test Not Detected Not Detected code = 75462-3) Parainfluenza 3 (test Not Detected Not Detected code = 47519-5) Parainfluenza 4 (test Not Detected Not Detected code = 20954-5) Respiratory Syncytial Not Detected Not Detected Virus (test code = 60841-6) Bordetella Not Detected Not Detected Parapertussis (test code = 15833-6) Bordetella pertussis Not Detected Not Detected (test code = 50001-6) Chlamydiophila Not Detected Not Detected pneumoniae (test code = 28610-0) Mycoplasma pneumoniae Not Detected Not Detected (test code = 98398-1) CHANDRAKANT (test code = CHANDRAKANT) Has patient had a positive for COVID-19 result in the last 3 months?->No The BioFire RP2.1 is a real-time, nested multiplexed polymerase chain reaction test designed to simultaneously identify nucleic acids from 22 different viruses and bacteria associated with respiratory tract infection, including SARS-CoV-2, from a single nasopharyngeal swab (ELECTRICIAN HELPER) specimen obtained from individuals suspected of respiratory [...] that may not be detected by an ELECTRICIAN HELPER specimen. Internal controls are used to monitor [...] and high-complexity tests. The Microbiology Laboratory at [facility], CLIA Accreditation #[id number] and CAP Accreditation #[id number], verified the performance characteristics of this assay. Microbiology Laboratory at [facility] performs the assay using the [employer]. [facility] Center[facility], Nasopharyngeal [id number] 06:28:01 Test Item Value Reference Range Interpretation Comments RMP Source (test code = Not Applicable 8653) Adenovirus (test code = Not Detected Not Detected 48573-2) Coronavirus 229E (test Not Detected Not Detected code = 42979-4) Coronavirus HKU1 (test Not Detected Not Detected code = 05066-7) Coronavirus NL63 (test Not Detected Not Detected code = 73221-5) Coronavirus OC43 (test Not Detected Not Detected code = 41396-6) COVID19 (SARS-CoV-2) Not Detected Not Detected (test code = 23720-6) Human Metapneumovirus Not Detected Not Detected (test code = 49658-2) Human Not Detected Not Detected Rhinovirus/Enterovirus (test code = 74498-6) Influenza A (test code Not Detected Not Detected = 92241-7) Influenza A H1 (test Not Detected Not Detected code = 91593-0) Influenza A H1 2009 Not Detected Not Detected (test code = 60497-5) Influenza A H3 (test Not Detected Not Detected code = 45110-1) Influenza B (test code Not Detected Not Detected = 39337-5) Parainfluenza 1 (test Not Detected Not Detected code = 62484-5) Parainfluenza 2 (test Not Detected Not Detected code = 25856-5) Parainfluenza 3 (test Not Detected Not Detected code = 27078-7) Parainfluenza 4 (test Not Detected Not Detected code = 18557-6) Respiratory Syncytial Not Detected Not Detected Virus (test code = 36959-5) Bordetella Not Detected Not Detected Parapertussis (test code = 26922-3) Bordetella pertussis Not Detected Not Detected (test code = 40111-3) Chlamydiophila Not Detected Not Detected pneumoniae (test code = 59717-7) Mycoplasma pneumoniae Not Detected Not Detected (test code = 43808-0) CHANDRAKANT (test code = CHANDRAKANT) Has patient had a positive for COVID-19 result in the last 3 months?->No The BioFire RP2.1 is a real-time, nested multiplexed polymerase chain reaction test designed to simultaneously identify nucleic acids from 22 different viruses and bacteria associated with respiratory tract infection, including SARS-CoV-2, from a single nasopharyngeal swab (ELECTRICIAN HELPER) specimen obtained from individuals suspected of respiratory [...] that may not be detected by an ELECTRICIAN HELPER specimen. Internal controls are used to monitor [...] and high-complexity tests. The Microbiology Laboratory at [facility], CLIA Accreditation #[id number] and CAP Accreditation #[id number], verified the performance characteristics of this assay. Microbiology Laboratory at [facility] performs the assay using the [employer]. [facility] Center[facility], Nasopharyngeal [id number] 06:28:01 Test Item Value Reference Range Interpretation Comments RMP Source (test code = Not Applicable 8653) Adenovirus (test code = Not Detected Not Detected 31205-1) Coronavirus 229E (test Not Detected Not Detected code = 21690-7) Coronavirus HKU1 (test Not Detected Not Detected code = 73948-0) Coronavirus NL63 (test Not Detected Not Detected code = 66159-5) Coronavirus OC43 (test Not Detected Not Detected code = 45386-9) COVID19 (SARS-CoV-2) Not Detected Not Detected (test code = 04673-1) Human Metapneumovirus Not Detected Not Detected (test code = 44515-3) Human Not Detected Not Detected Rhinovirus/Enterovirus (test code = 39725-8) Influenza A (test code Not Detected Not Detected = 31013-6) Influenza A H1 (test Not Detected Not Detected code = 69939-3) Influenza A H1 2009 Not Detected Not Detected (test code = 01957-4) Influenza A H3 (test Not Detected Not Detected code = 82524-9) Influenza B (test code Not Detected Not Detected = 25072-2) Parainfluenza 1 (test Not Detected Not Detected code = 93571-2) Parainfluenza 2 (test Not Detected Not Detected code = 78542-0) Parainfluenza 3 (test Not Detected Not Detected code = 97745-0) Parainfluenza 4 (test Not Detected Not Detected code = 29485-2) Respiratory Syncytial Not Detected Not Detected Virus (test code = 12187-8) Bordetella Not Detected Not Detected Parapertussis (test code = 41116-4) Bordetella pertussis Not Detected Not Detected (test code = 43409-8) Chlamydiophila Not Detected Not Detected pneumoniae (test code = 50191-7) Mycoplasma pneumoniae Not Detected Not Detected (test code = 29584-5) CHANDRAKANT (test code = CHANDRAKANT) Has patient had a positive for COVID-19 result in the last 3 months?->No The [employer] RP2.1 is a real-time, nested multiplexed polymerase chain reaction test designed to simultaneously identify nucleic acids from 22 different viruses and bacteria associated with respiratory tract infection, including SARS-CoV-2, from a single nasopharyngeal swab (ELECTRICIAN HELPER) specimen obtained from individuals suspected of respiratory [...] that may not be detected by an ELECTRICIAN HELPER specimen. Internal controls are used to monitor [...] and high-complexity tests. The Microbiology Laboratory at [facility], CLIA Accreditation #[id number] and CAP Accreditation #[id number], verified the performance characteristics of this assay. Microbiology Laboratory at [facility] performs the assay using the [employer]. [facility] Center[facility] PCR Panel, Nasopharyngeal [id number] 06:28:01 Test Item Value Reference Range Interpretation Comments RMP Source (test code = Not Applicable 8653) Adenovirus (test code = Not Detected Not Detected 21973-3) Coronavirus 229E (test Not Detected Not Detected code = 52911-5) Coronavirus HKU1 (test Not Detected Not Detected code = 66797-8) Coronavirus NL63 (test Not Detected Not Detected code = 16272-1) Coronavirus OC43 (test Not Detected Not Detected code = 32539-7) COVID19 (SARS-CoV-2) Not Detected Not Detected (test code = 96703-6) Human Metapneumovirus Not Detected Not Detected (test code = 59476-9) Human Not Detected Not Detected Rhinovirus/Enterovirus (test code = 12113-7) Influenza A (test code Not Detected Not Detected = 54591-4) Influenza A H1 (test Not Detected Not Detected code = 10618-1) Influenza A H1 2009 Not Detected Not Detected (test code = 10337-9) Influenza A H3 (test Not Detected Not Detected code = 32449-8) Influenza B (test code Not Detected Not Detected = 18134-0) Parainfluenza 1 (test Not Detected Not Detected code = 01974-7) Parainfluenza 2 (test Not Detected Not Detected code = 67808-4) Parainfluenza 3 (test Not Detected Not Detected code = 03972-4) Parainfluenza 4 (test Not Detected Not Detected code = 49669-1) Respiratory Syncytial Not Detected Not Detected Virus (test code = 56061-0) Bordetella Not Detected Not Detected Parapertussis (test code = 62225-2) Bordetella pertussis Not Detected Not Detected (test code = 83459-2) Chlamydiophila Not Detected Not Detected pneumoniae (test code = 19911-5) Mycoplasma pneumoniae Not Detected Not Detected (test code = 17693-5) CHANDRAKANT (test code = CHANDRAKANT) Has patient had a positive for COVID-19 result in the last 3 months?->No The [employer] RP2.1 is a real-time, nested multiplexed polymerase chain reaction test designed to simultaneously identify nucleic acids from 22 different viruses and bacteria associated with respiratory tract infection, including SARS-CoV-2, from a single nasopharyngeal swab (ELECTRICIAN HELPER) specimen obtained from individuals suspected of respiratory [...] that may not be detected by an ELECTRICIAN HELPER specimen. Internal controls are used to monitor [...] and high-complexity tests. The Microbiology Laboratory at [facility], CLIA Accreditation #[id number] and CAP Accreditation #[id number], verified the performance characteristics of this assay. Microbiology Laboratory at [facility] performs the assay using the [employer]. [facility] Center[facility], Nasopharyngeal [id number] 06:28:01 Test Item Value Reference Range Interpretation Comments RMP Source (test code = Not Applicable 8653) Adenovirus (test code = Not Detected Not Detected 93657-1) Coronavirus 229E (test Not Detected Not Detected code = 86694-8) Coronavirus HKU1 (test Not Detected Not Detected code = 03178-0) Coronavirus NL63 (test Not Detected Not Detected code = 52366-8) Coronavirus OC43 (test Not Detected Not Detected code = 22673-3) COVID19 (SARS-CoV-2) Not Detected Not Detected (test code = 50725-1) Human Metapneumovirus Not Detected Not Detected (test code = 99739-4) Human Not Detected Not Detected Rhinovirus/Enterovirus (test code = 24823-4) Influenza A (test code Not Detected Not Detected = 30630-5) Influenza A H1 (test Not Detected Not Detected code = 30254-3) Influenza A H1 2009 Not Detected Not Detected (test code = 27416-7) Influenza A H3 (test Not Detected Not Detected code = 07722-3) Influenza B (test code Not Detected Not Detected = 45150-4) Parainfluenza 1 (test Not Detected Not Detected code = 36682-9) Parainfluenza 2 (test Not Detected Not Detected code = 76162-1) Parainfluenza 3 (test Not Detected Not Detected code = 76941-5) Parainfluenza 4 (test Not Detected Not Detected code = 77238-8) Respiratory Syncytial Not Detected Not Detected Virus (test code = 47251-9) Bordetella Not Detected Not Detected Parapertussis (test code = 79310-9) Bordetella pertussis Not Detected Not Detected (test code = 94987-7) Chlamydiophila Not Detected Not Detected pneumoniae (test code = 18948-9) Mycoplasma pneumoniae Not Detected Not Detected (test code = 77844-4) CHANDRAKANT (test code = CHANDRAKANT) Has patient had a positive for COVID-19 result in the last 3 months?->No The [employer] RP2.1 is a real-time, nested multiplexed polymerase chain reaction test designed to simultaneously identify nucleic acids from 22 different viruses and bacteria associated with respiratory tract infection, including SARS-CoV-2, from a single nasopharyngeal swab (ELECTRICIAN HELPER) specimen obtained from individuals suspected of respiratory [...] that may not be detected by an ELECTRICIAN HELPER specimen. Internal controls are used to monitor [...] and high-complexity tests. The Microbiology Laboratory at [facility], CLIA Accreditation #[id number] and CAP Accreditation #[id number], verified the performance characteristics of this assay. Microbiology Laboratory at [facility] performs the assay using the [employer]. [facility] Nasopharyngeal [id number] 06:28:01 Test Item Value Reference Range Interpretation Comments RMP Source (test code = Not Applicable 8653) Adenovirus (test code = Not Detected Not Detected 20318-6) Coronavirus 229E (test Not Detected Not Detected code = 05569-7) Coronavirus HKU1 (test Not Detected Not Detected code = 42526-3) Coronavirus NL63 (test Not Detected Not Detected code = 91635-7) Coronavirus OC43 (test Not Detected Not Detected code = 02369-9) COVID19 (SARS-CoV-2) Not Detected Not Detected (test code = 90335-7) Human Metapneumovirus Not Detected Not Detected (test code = 16389-1) Human Not Detected Not Detected Rhinovirus/Enterovirus (test code = 79036-6) Influenza A (test code Not Detected Not Detected = 31241-8) Influenza A H1 (test Not Detected Not Detected code = 28807-3) Influenza A H1 2009 Not Detected Not Detected (test code = 46235-3) Influenza A H3 (test Not Detected Not Detected code = 45097-9) Influenza B (test code Not Detected Not Detected = 54048-8) Parainfluenza 1 (test Not Detected Not Detected code = 64388-6) Parainfluenza 2 (test Not Detected Not Detected code = 80427-0) Parainfluenza 3 (test Not Detected Not Detected code = 42669-6) Parainfluenza 4 (test Not Detected Not Detected code = 21053-8) Respiratory Syncytial Not Detected Not Detected Virus (test code = 27039-1) Bordetella Not Detected Not Detected Parapertussis (test code = 51741-2) Bordetella pertussis Not Detected Not Detected (test code = 74567-5) Chlamydiophila Not Detected Not Detected pneumoniae (test code = 21153-6) Mycoplasma pneumoniae Not Detected Not Detected (test code = 80625-5) CHANDRAKANT (test code = CHANDRAKANT) Has patient had a positive for COVID-19 result in the last 3 months?->No The [employer] RP2.1 is a real-time, nested multiplexed polymerase chain reaction test designed to simultaneously identify nucleic acids from 22 different viruses and bacteria associated with respiratory tract infection, including SARS-CoV-2, from a single nasopharyngeal swab (ELECTRICIAN HELPER) specimen obtained from individuals suspected of respiratory [...] that may not be detected by an ELECTRICIAN HELPER specimen. Internal controls are used to monitor [...] and high-complexity tests. The Microbiology Laboratory at [facility], CLIA Accreditation #[id number] and CAP Accreditation #[id number], verified the performance characteristics of this assay. Microbiology Laboratory at [facility] performs the assay using the [employer]. [facility], Nasopharyngeal [id number] 06:28:01 Test Item Value Reference Range Interpretation Comments RMP Source (test code = Not Applicable 8653) Adenovirus (test code = Not Detected Not Detected 33806-6) Coronavirus 229E (test Not Detected Not Detected code = 66830-2) Coronavirus HKU1 (test Not Detected Not Detected code = 47876-3) Coronavirus NL63 (test Not Detected Not Detected code = 91131-9) Coronavirus OC43 (test Not Detected Not Detected code = 79774-7) COVID19 (SARS-CoV-2) Not Detected Not Detected (test code = 98368-3) Human Metapneumovirus Not Detected Not Detected (test code = 11683-7) Human Not Detected Not Detected Rhinovirus/Enterovirus (test code = 98977-3) Influenza A (test code Not Detected Not Detected = 82043-6) Influenza A H1 (test Not Detected Not Detected code = 26777-0) Influenza A H1 2009 Not Detected Not Detected (test code = 89072-8) Influenza A H3 (test Not Detected Not Detected code = 44018-0) Influenza B (test code Not Detected Not Detected = 18294-9) Parainfluenza 1 (test Not Detected Not Detected code = 44224-0) Parainfluenza 2 (test Not Detected Not Detected code = 36885-7) Parainfluenza 3 (test Not Detected Not Detected code = 61367-2) Parainfluenza 4 (test Not Detected Not Detected code = 59844-9) Respiratory Syncytial Not Detected Not Detected Virus (test code = 88293-0) Bordetella Not Detected Not Detected Parapertussis (test code = 36333-4) Bordetella pertussis Not Detected Not Detected (test code = 85404-6) Chlamydiophila Not Detected Not Detected pneumoniae (test code = 81240-9) Mycoplasma pneumoniae Not Detected Not Detected (test code = 84087-5) CHANDRAKANT (test code = CHANDRAKANT) Has patient had a positive for COVID-19 result in the last 3 months?->No The [employer] RP2.1 is a real-time, nested multiplexed polymerase chain reaction test designed to simultaneously identify nucleic acids from 22 different viruses and bacteria associated with respiratory tract infection, including SARS-CoV-2, from a single nasopharyngeal swab (ELECTRICIAN HELPER) specimen obtained from individuals suspected of respiratory [...] that may not be detected by an ELECTRICIAN HELPER specimen. Internal controls are used to monitor [...] and high-complexity tests. The Microbiology Laboratory at [facility] [place], CLIA Accreditation #[id number] and CAP Accreditation #[id number], verified the performance characteristics of this assay. Microbiology Laboratory at [facility] performs the assay using the [employer]. [facility], Nasopharyngeal [id number] 06:28:01 Test Item Value Reference Range Interpretation Comments RMP Source (test code = Not Applicable 8653) Adenovirus (test code = Not Detected Not Detected 26026-1) Coronavirus 229E (test Not Detected Not Detected code = 81319-3) Coronavirus HKU1 (test Not Detected Not Detected code = 50519-5) Coronavirus NL63 (test Not Detected Not Detected code = 10321-6) Coronavirus OC43 (test Not Detected Not Detected code = 76096-5) COVID19 (SARS-CoV-2) Not Detected Not Detected (test code = 14516-0) Human Metapneumovirus Not Detected Not Detected (test code = 80141-3) Human Not Detected Not Detected Rhinovirus/Enterovirus (test code = 75066-3) Influenza A (test code Not Detected Not Detected = 77302-8) Influenza A H1 (test Not Detected Not Detected code = 20214-2) Influenza A H1 2009 Not Detected Not Detected (test code = 35663-1) Influenza A H3 (test Not Detected Not Detected code = 96752-5) Influenza B (test code Not Detected Not Detected = 34221-3) Parainfluenza 1 (test Not Detected Not Detected code = 14545-4) Parainfluenza 2 (test Not Detected Not Detected code = 73100-4) Parainfluenza 3 (test Not Detected Not Detected code = 46954-3) Parainfluenza 4 (test Not Detected Not Detected code = 28171-8) Respiratory Syncytial Not Detected Not Detected Virus (test code = 37232-3) Bordetella Not Detected Not Detected Parapertussis (test code = 87551-3) Bordetella pertussis Not Detected Not Detected (test code = 15908-5) Chlamydiophila Not Detected Not Detected pneumoniae (test code = 75916-3) Mycoplasma pneumoniae Not Detected Not Detected (test code = 33342-4) CHANDRAKANT (test code = CHANDRAKANT) Has patient had a positive for COVID-19 result in the last 3 months?->No The [employer] RP2.1 is a real-time, nested multiplexed polymerase chain reaction test designed to simultaneously identify nucleic acids from 22 different viruses and bacteria associated with respiratory tract infection, including SARS-CoV-2, from a single nasopharyngeal swab (ELECTRICIAN HELPER) specimen obtained from individuals suspected of respiratory [...] that may not be detected by an ELECTRICIAN HELPER specimen. Internal controls are used to monitor [...] and high-complexity tests. The Microbiology Laboratory at [facility], CLIA Accreditation #[id number] and CAP Accreditation #[id number], verified the performance characteristics of this assay. Microbiology Laboratory at [facility] performs the assay using the [employer] System. [facility], Nasopharyngeal [id number] 06:28:01 Test Item Value Reference Range Interpretation Comments RMP Source (test code = Not Applicable 8653) Adenovirus (test code = Not Detected Not Detected 73074-5) Coronavirus 229E (test Not Detected Not Detected code = 40661-0) Coronavirus HKU1 (test Not Detected Not Detected code = 12841-9) Coronavirus NL63 (test Not Detected Not Detected code = 37800-1) Coronavirus OC43 (test Not Detected Not Detected code = 52695-6) COVID19 (SARS-CoV-2) Not Detected Not Detected (test code = 67772-1) Human Metapneumovirus Not Detected Not Detected (test code = 64429-2) Human Not Detected Not Detected Rhinovirus/Enterovirus (test code = 54215-1) Influenza A (test code Not Detected Not Detected = 71737-1) Influenza A H1 (test Not Detected Not Detected code = 12767-9) Influenza A H1 2009 Not Detected Not Detected (test code = 23849-7) Influenza A H3 (test Not Detected Not Detected code = 95752-2) Influenza B (test code Not Detected Not Detected = 34764-3) Parainfluenza 1 (test Not Detected Not Detected code = 20501-1) Parainfluenza 2 (test Not Detected Not Detected code = 09440-5) Parainfluenza 3 (test Not Detected Not Detected code = 77805-4) Parainfluenza 4 (test Not Detected Not Detected code = 40746-8) Respiratory Syncytial Not Detected Not Detected Virus (test code = 93311-3) Bordetella Not Detected Not Detected Parapertussis (test code = 09210-5) Bordetella pertussis Not Detected Not Detected (test code = 17524-4) Chlamydiophila Not Detected Not Detected pneumoniae (test code = 90112-3) Mycoplasma pneumoniae Not Detected Not Detected (test code = 92645-8) CHANDRAKANT (test code = CHANDRAKANT) Has patient had a positive for COVID-19 result in the last 3 months?->No The [employer] RP2.1 is a real-time, nested multiplexed polymerase chain reaction test designed to simultaneously identify nucleic acids from 22 different viruses and bacteria associated with respiratory tract infection, including SARS-CoV-2, from a single nasopharyngeal swab (ELECTRICIAN HELPER) specimen obtained from individuals suspected of respiratory [...] that may not be detected by an ELECTRICIAN HELPER specimen. Internal controls are used to monitor [...] and high-complexity tests. The Microbiology Laboratory at [facility], CLIA Accreditation #[id number] and CAP Accreditation #[id number], verified the performance characteristics of this assay. Microbiology Laboratory at [facility] performs the assay using the [employer] System. [facility] CenterLDH[facility] 05:46:40 Test Item Value Reference Range Interpretation Comments LDH (test code = 288 U/L 135-214 H Results gre ater than 17471-1) 1651 U/L may no t be reliable due to matrix effect w ith extended diluti on as it exceeds the cook pressure's recommended sweeney it. Caution should be exercised when interpreting limon ch values and done in [facility] clinical contex t. Lab Interpretation (test Abnormal code = 99846-9) [facility] 05:46:40 Test Item Value Reference Range Interpretation Comments LDH (test code = 288 U/L 135-214 H Results gre ater than 21969-8) 1651 U/L may no t be reliable due to matrix effect w ith extended diluti on as it exceeds the cook pressure's recommended sweeney it. Caution should be exercised when interpreting limon ch values and done in [facility] clinical contex t. Lab Interpretation (test Abnormal code = 07746-7) [facility] 05:46:40 Test Item Value Reference Range Interpretation Comments LDH (test code = 288 U/L 135-214 H Results gre ater than 68564-7) 1651 U/L may no t be reliable due to matrix effect w ith extended diluti on as it exceeds the cook pressure's recommended sweeney it. Caution should be exercised when interpreting limon ch values and done in [facility] clinical contex t. Lab Interpretation (test Abnormal code = 64131-9) [facility] 05:46:40 Test Item Value Reference Range Interpretation Comments LDH (test code = 288 U/L 135-214 H Results gre ater than 23818-5) 1651 U/L may no t be reliable due to matrix effect w ith extended diluti on as it exceeds the cook pressure's recommended sweeney it. Caution should be exercised when interpreting limon ch values and done in [facility] clinical contex t. Lab Interpretation (test Abnormal code = 12498-8) [facility] 05:46:40 Test Item Value Reference Range Interpretation Comments LDH (test code = 288 U/L 135-214 H Results gre ater than 55214-8) 1651 U/L may no t be reliable due to matrix effect w ith extended diluti on as it exceeds the cook pressure's recommended sweeney it. Caution should be exercised when interpreting limon ch values and done in [facility] clinical contex t. Lab Interpretation (test Abnormal code = 69713-2) [facility] 05:46:40 Test Item Value Reference Range Interpretation Comments LDH (test code = 288 U/L 135-214 H Results gre ater than 52883-4) 1651 U/L may no t be reliable due to matrix effect w ith extended diluti on as it exceeds the cook pressure's recommended sweeney it. Caution should be exercised when interpreting limon ch values and done in [facility] clinical contex t. Lab Interpretation (test Abnormal code = 73377-7) [facility] 05:46:40 Test Item Value Reference Range Interpretation Comments LDH (test code = 288 U/L 135-214 H Results gre ater than 52906-4) 1651 U/L may no t be reliable due to matrix effect w ith extended diluti on as it exceeds the cook pressure's recommended sweeney it. Caution should be exercised when interpreting limon ch values and done in [facility] clinical contex t. Lab Interpretation (test Abnormal code = 30061-3) [facility] 05:46:40 Test Item Value Reference Range Interpretation Comments LDH (test code = 288 U/L 135-214 H Results gre ater than 21033-7) 1651 U/L may no t be reliable due to matrix effect w ith extended diluti on as it exceeds the cook pressure's recommended sweeney it. Caution should be exercised when interpreting limon ch values and done in [facility] clinical contex t. Lab Interpretation (test Abnormal code = 81735-0) [facility] 05:46:40 Test Item Value Reference Range Interpretation Comments LDH (test code = 288 U/L 135-214 H Results gre ater than 94726-1) 1651 U/L may no t be reliable due to matrix effect w ith extended diluti on as it exceeds the cook pressure's recommended sweeney it. Caution should be exercised when interpreting limon ch values and done in [facility] clinical contex t. Lab Interpretation (test Abnormal code = 90770-5) [facility] 05:46:40 Test Item Value Reference Range Interpretation Comments LDH (test code = 288 U/L 135-214 H Results gre ater than 83961-6) 1651 U/L may no t be reliable due to matrix effect w ith extended diluti on as it exceeds the cook pressure's recommended sweeney it. Caution should be exercised when interpreting limon ch values and done in [facility] clinical contex t. Lab Interpretation (test Abnormal code = 96442-9) [facility] 05:46:40 Test Item Value Reference Range Interpretation Comments LDH (test code = 288 U/L 135-214 H Results gre ater than 03850-2) 1651 U/L may no t be reliable due to matrix effect w ith extended diluti on as it exceeds the cook pressure's recommended sweeney it. Caution should be exercised when interpreting limon ch values and done in [facility] clinical contex t. Lab Interpretation (test Abnormal code = 34421-0) [facility] 05:46:40 Test Item Value Reference Range Interpretation Comments LDH (test code = 288 U/L 135-214 H Results gre ater than 27220-3) 1651 U/L may no t be reliable due to matrix effect w ith extended diluti on as it exceeds the cook pressure's recommended sweeney it. Caution should be exercised when interpreting limon ch values and done in [facility] clinical contex t. Lab Interpretation (test Abnormal code = 71274-9) [facility] [id number] 05:21:40 Test Item Value Reference Range Interpretation Comments POC VB pH (test code 7.39 7.31-7.41 = 2746-6) POC VB pCO2 (test 32 See_Comment L [Automate d message] code = 2020-05) The system [facility] generated this result transmitted ref erence range: 41 - 51 mmHg. The reference r ashley was not used to interpret this result as normal/abnor mal. POC VB pO2 (test 71 mmHg code = 2705-2) POC VB TCO2 (test 20 See_Comment L [Automate d message] code = 2026-02) The system [employer] generated this result transmitted ref erence range: 24 - 29 mEq/L. The reference r ashley was not used to interpret this result as normal/abnor mal. POC VB Bicarb (test 19 mmol/L 23-28 L code = 32456-9) POC VB Base Ex (test -5 mmol/L [...] chemic ally sensitive biose nsors on a [employer]age[employer] ip that are config ured to perform spec ific tests. The microfabricated sensors measure analyte concent ration by an electroch emical assay. POC Sample Type Venous (test code = 6690) POC Clean Dev (test Yes code = 6672) Performing Lab (test MDA Main Main Ca mpus code = 95551) [facility], [facility] [address], [place] [address]; Plant And Instrument Engineer: Guerline Olmstead MD; Waived Point of Care Testing - Luz Maria levi MD Lab Interpretation Abnormal (test code = 85382-7) [facility] [id number] 05:21:40 Test Item Value Reference Range Interpretation Comments POC VB pH (test code 7.39 7.31-7.41 = 2746-6) POC VB pCO2 (test 32 See_Comment L [Automate d message] code = 2020-05) The system [employer] generated this result transmitted ref erence range: 41 - 51 mmHg. The reference r ashley was not used to interpret this result as normal/abnor mal. POC VB pO2 (test 71 mmHg code = 2705-2) POC VB TCO2 (test 20 See_Comment L [Automate d message] code = 2026-02) The system [employer] generated this result transmitted ref erence range: 24 - 29 mEq/L. The reference r ashley was not used to interpret this result as normal/abnor mal. POC VB Bicarb (test 19 mmol/L 23-28 L code = 34041-6) POC VB Base Ex (test -5 mmol/L [...] chemic ally sensitive biose nsors on a [employer] ip that are config ured to perform spec ific tests. The microfabricated sensors measure analyte concent ration by an electroch emical assay. POC Sample Type Venous (test code = 6690) POC Clean Dev (test Yes code = 6672) Performing Lab (test MDA Main Main Ca mpus code = 89897) [facility] Cli [facility]ical Lab, [address] [place] [address] [place] [address]; Plant And Instrument Engineer: Guerline Olmstead MD; Waived Point of Care Testing - Luz Maria levi MD Lab Interpretation Abnormal (test code = 56215-6) [facility] [id number] 05:21:40 Test Item Value Reference Range Interpretation Comments POC VB pH (test code 7.39 7.31-7.41 = 2746-6) POC VB pCO2 (test 32 See_Comment L [Automate d message] code = 2020-05) The system [employer] generated this result transmitted ref erence range: 41 - 51 mmHg. The reference r ashley was not used to interpret this result as normal/abnor mal. POC VB pO2 (test 71 mmHg code = 2705-2) POC VB TCO2 (test 20 See_Comment L [Automate d message] code = 2026-02) The system [employer] generated this result transmitted ref erence range: 24 - 29 mEq/L. The reference r ashley was not used to interpret this result as normal/abnor mal. POC VB Bicarb (test 19 mmol/L 23-28 L code = 01981-8) POC VB Base Ex (test -5 mmol/L [...] which contains microfabricated sensors, a calibration dixie [employer], fluidics system , and a waste chamber . Each test cartridge contains chemic ally sensitive biose nsors on a [employer]age[employer] ip that are config ured to perform spec ific tests. The microfabricated sensors measure analyte concent ration by an electroch emical assay. POC Sample Type Venous (test code = 6690) POC Clean Dev (test Yes code = 6672) Performing Lab (test MDA Main Main Ca mpus code = 72901) [facility], [address] [place], [place] [address] [address]; Plant And Instrument Engineer: Guerline Olmstead MD; Waived Point of Care Testing - Luz Maria levi MD Lab Interpretation Abnormal (test code = 40489-8) [facility] [id number] 05:21:40 Test Item Value Reference Range Interpretation Comments POC VB pH (test code 7.39 7.31-7.41 = 2746-6) POC VB pCO2 (test 32 See_Comment L [Automate d message] code = 2020-05) The system [employer] generated this result transmitted ref erence range: 41 - 51 mmHg. The reference r ashley was not used to interpret this result as normal/abnor mal. POC VB pO2 (test 71 mmHg code = 2705-2) POC VB TCO2 (test 20 See_Comment L [Automate d message] code = 2026-02) The system [employer] generated this result transmitted ref erence range: 24 - 29 mEq/L. The reference r ashley was not used to interpret this result as normal/abnor mal. POC VB Bicarb (test 19 mmol/L 23-28 L code = 77868-0) POC VB Base Ex (test -5 mmol/L [...] which contains microfabricated sensors, a calibration d[employer], fluidics system , and a waste chamber . Each test cartridge contains chemic ally sensitive biose nsors on a [employer]age[employer] ip that are config ured to perform spec ific tests. The microfabricated sensors measure analyte concent ration by an electroch emical assay. POC Sample Type Venous (test code = 6690) POC Clean Dev (test Yes code = 6672) Performing Lab (test MDA Main Main Ca mpus code = 25705) [facility] Lab, [address] [place] [address]; Plant And Instrument Engineer: Guerline Olmstead MD; Waived Point of Care Testing - Luz Maria levi MD Lab Interpretation Abnormal (test code = 39189-8) [facility] [id number] 05:21:40 Test Item Value Reference Range Interpretation Comments POC VB pH (test code 7.39 7.31-7.41 = 2746-6) POC VB pCO2 (test 32 See_Comment L [Automate d message] code = 2020-05) The system [employer] generated this result transmitted ref erence range: 41 - 51 mmHg. The reference r ashley was not used to interpret this result as normal/abnor mal. POC VB pO2 (test 71 mmHg code = 2705-2) POC VB TCO2 (test 20 See_Comment L [Automate d message] code = 2026-02) The system [employer] generated this result transmitted ref erence range: 24 - 29 mEq/L. The reference r ashley was not used to interpret this result as normal/abnor mal. POC VB Bicarb (test 19 mmol/L 23-28 L code = 35220-7) POC VB Base Ex (test -5 mmol/L [...] which contains microfabricated sensors, a calibration d[employer]ie [employer], fluidics system , and a waste chamber . Each test cartridge contains chemic ally sensitive biose nsors on a [employer]age[employer] ip that are config ured to perform spec ific tests. The microfabricated sensors measure analyte concent ration by an electroch emical assay. POC Sample Type Venous (test code = 6690) POC Clean Dev (test Yes code = 6672) Performing Lab (test MDA Main Main Ca mpus code = 46399) [facility] Cli [facility]ical Lab, [address] [place] [address]; Plant And Instrument Engineer: Guerline Olmstead MD; Waived Point of Care Testing - Luz Maria levi MD Lab Interpretation Abnormal (test code = 27785-9) [facility] [id number] 05:21:40 Test Item Value Reference Range Interpretation Comments POC VB pH (test code 7.39 7.31-7.41 = 2746-6) POC VB pCO2 (test 32 See_Comment L [Automate d message] code = 2020-05) The system [employer] generated this result transmitted ref erence range: 41 - 51 mmHg. The reference r ashley was not used to interpret this result as normal/abnor mal. POC VB pO2 (test 71 mmHg code = 2705-2) POC VB TCO2 (test 20 See_Comment L [Automate d message] code = 2026-02) The system [employer] generated this result transmitted ref erence range: 24 - 29 mEq/L. The reference r ashley was not used to interpret this result as normal/abnor mal. POC VB Bicarb (test 19 mmol/L 23-28 L code = 17842-9) POC VB Base Ex (test -5 mmol/L [...] chemic ally sensitive biose nsors on a [employer] ip that are config ured to perform spec ific tests. The microfabricated sensors measure analyte concent ration by an electroch emical assay. POC Sample Type Venous (test code = 6690) POC Clean Dev (test Yes code = 6672) Performing Lab (test MDA Main Main Ca mpus code = 96542) [facility] Cli [facility]ical Lab, [address] [place] [address]; Plant And Instrument Engineer: Guerline Olmstead MD; Waived Point of Care Testing - Luz Maria levi MD Lab Interpretation Abnormal (test code = 02017-9) [facility] VBG+[id number] 05:21:40 Test Item Value Reference Range Interpretation Comments POC VB pH (test code 7.39 7.31-7.41 = 2746-6) POC VB pCO2 (test 32 See_Comment L [Automate d message] code = 2020-05) The system [employer] generated this result transmitted ref erence range: 41 - 51 mmHg. The reference r ashley was not used to interpret this result as normal/abnor mal. POC VB pO2 (test 71 mmHg code = 2705-2) POC VB TCO2 (test 20 See_Comment L [Automate d message] code = 2026-02) The system [employer] generated this result transmitted ref erence range: 24 - 29 mEq/L. The reference r ashley was not used to interpret this result as normal/abnor mal. POC VB Bicarb (test 19 mmol/L 23-28 L code = 25261-1) POC VB Base Ex (test -5 mmol/L [...] chemic ally sensitive biose nsors on a [employer] ip that are config ured to perform spec ific tests. The microfabricated sensors measure analyte concent ration by an electroch emical assay. POC Sample Type Venous (test code = 6690) POC Clean Dev (test Yes code = 6672) Performing Lab (test MDA Main Main Ca mpus code = 06092) [facility] Cli [facility]ical Lab, [address] [place] [address]; Plant And Instrument Engineer: Guerline Olmstead MD; Waived Point of Care Testing - Luz Maria levi MD Lab Interpretation Abnormal (test code = 98744-7) [facility] VBG+[id number] 05:21:40 Test Item Value Reference Range Interpretation Comments POC VB pH (test code 7.39 7.31-7.41 = 2746-6) POC VB pCO2 (test 32 See_Comment L [Automate d message] code = 2020-05) The system [employer] generated this result transmitted ref erence range: 41 - 51 mmHg. The reference r ashley was not used to interpret this result as normal/abnor mal. POC VB pO2 (test 71 mmHg code = 2705-2) POC VB TCO2 (test 20 See_Comment L [Automate d message] code = 2026-02) The system [employer] generated this result transmitted ref erence range: 24 - 29 mEq/L. The reference r ashley was not used to interpret this result as normal/abnor mal. POC VB Bicarb (test 19 mmol/L 23-28 L code = 58547-2) POC VB Base Ex (test -5 mmol/L [...] chemic ally sensitive biose nsors on a [employer] ip that are config ured to perform spec ific tests. The microfabricated sensors measure analyte concent ration by an electroch emical assay. POC Sample Type Venous (test code = 6690) POC Clean Dev (test Yes code = 6672) Performing Lab (test MDA Main Main Ca mpus code = 70641) [facility] Cli [facility]ical Lab, [address] [place] [address]; Plant And Instrument Engineer: Guerline Olmstead MD; Waived Point of Care Testing - Luz Maria levi MD Lab Interpretation Abnormal (test code = 77831-6) [facility] [id number] 05:21:40 Test Item Value Reference Range Interpretation Comments POC VB pH (test code 7.39 7.31-7.41 = 2746-6) POC VB pCO2 (test 32 See_Comment L [Automate d message] code = 2020-05) The system [employer] generated this result transmitted ref erence range: 41 - 51 mmHg. The reference r ashley was not used to interpret this result as normal/abnor mal. POC VB pO2 (test 71 mmHg code = 2705-2) POC VB TCO2 (test 20 See_Comment L [Automate d message] code = 2026-02) The system [employer] generated this result transmitted ref erence range: 24 - 29 mEq/L. The reference r ashley was not used to interpret this result as normal/abnor mal. POC VB Bicarb (test 19 mmol/L 23-28 L code = 18765-9) POC VB Base Ex (test -5 mmol/L [...] chemic ally sensitive biose nsors on a [employer] ip that are config ured to perform spec ific tests. The microfabricated sensors measure analyte concent ration by an electroch emical assay. POC Sample Type Venous (test code = 6690) POC Clean Dev (test Yes code = 6672) Performing Lab (test MDA Main Main Ca mpus code = 80786) [facility], [address] [place] [address], [place] [address]; Plant And Instrument Engineer: Guerline Olmstead MD; Waived Point of Care Testing - Luz Maria levi MD Lab Interpretation Abnormal (test code = 18258-2) [facility] [id number] 05:21:40 Test Item Value Reference Range Interpretation Comments POC VB pH (test code 7.39 7.31-7.41 = 2746-6) POC VB pCO2 (test 32 See_Comment L [Automate d message] code = 2020-05) The system [employer] generated this result transmitted ref erence range: 41 - 51 mmHg. The reference r ashley was not used to interpret this result as normal/abnor mal. POC VB pO2 (test 71 mmHg code = 2705-2) POC VB TCO2 (test 20 See_Comment L [Automate d message] code = 2026-02) The system [employer] generated this result transmitted ref erence range: 24 - 29 mEq/L. The reference r ashley was not used to interpret this result as normal/abnor mal. POC VB Bicarb (test 19 mmol/L 23-28 L code = 13573-1) POC VB Base Ex (test -5 mmol/L [...] chemic ally sensitive biose nsors on a [employer] ip that are config ured to perform spec ific tests. The microfabricated sensors measure analyte concent ration by an electroch emical assay. POC Sample Type Venous (test code = 6690) POC Clean Dev (test Yes code = 6672) Performing Lab (test MDA Main Main Ca mpus code = 22497) [facility], [facility] [address], [place] [address]; Plant And Instrument Engineer: Guerline Olmstead MD; Waived Point of Care Testing - Luz Maria levi MD Lab Interpretation Abnormal (test code = 25485-8) [id number] 05:21:40 Test Item Value Reference Range Interpretation Comments POC VB pH (test code 7.39 7.31-7.41 = 2746-6) POC VB pCO2 (test 32 See_Comment L [Automate d message] code = 2020-05) The system [employer] generated this result transmitted ref erence range: 41 - 51 mmHg. The reference r ashley was not used to interpret this result as normal/abnor mal. POC VB pO2 (test 71 mmHg code = 2705-2) POC VB TCO2 (test 20 See_Comment L [Automate d message] code = 2026-02) The system [employer] generated this result transmitted ref erence range: 24 - 29 mEq/L. The reference r ashley was not used to interpret this result as normal/abnor mal. POC VB Bicarb (test 19 mmol/L 23-28 L code = 60816-8) POC VB Base Ex (test -5 mmol/L [...] ally sensitive biose nsors on a silicon [employer] ip that are config ured to perform spec ific tests. The microfabricated sensors measure analyte concent ration by an electroch emical assay. POC Sample Type Venous (test code = 6690) POC Clean Dev (test Yes code = 6672) Performing Lab (test MDA Main Main Ca mpus code = 47972) [facility], [facility] [address], [place] [address]; Plant And Instrument Engineer: Guerline Olmstead MD; Waived Point of Care Testing - Luz Maria levi MD Lab Interpretation Abnormal (test code = 83225-4) [facility] [id number] 05:21:40 Test Item Value Reference Range Interpretation Comments POC VB pH (test code 7.39 7.31-7.41 = 2746-6) POC VB pCO2 (test 32 See_Comment L [Automate d message] code = 2020-05) The system [employer] generated this result transmitted ref erence range: 41 - 51 mmHg. The reference r ashley was not used to interpret this result as normal/abnor mal. POC VB pO2 (test 71 mmHg code = 2705-2) POC VB TCO2 (test 20 See_Comment L [Automate d message] code = 2026-02) The system [facility] generated this result transmitted ref erence range: 24 - 29 mEq/L. The reference r ashley was not used to interpret this result as normal/abnor mal. POC VB Bicarb (test 19 mmol/L 23-28 L code = 89606-2) POC VB Base Ex (test -5 mmol/L [...] chemic ally sensitive biose nsors on a [employer] ip that are config ured to perform spec ific tests. The microfabricated sensors measure analyte concent ration by an electroch emical assay. POC Sample Type Venous (test code = 6690) POC Clean Dev (test Yes code = 6672) Performing Lab (test MDA Main Main Ca mpus code = 58518) [facility], [facility] [address], [place] [address]; Plant And Instrument Engineer: Guerline Olmstead MD; Waived Point of Care Testing - Luz Maria levi MD Lab Interpretation Abnormal (test code = 36213-3) [facility] ([facility]CoV-2) PCR- Asymptomatic [id number] 04:11:05 Test Item Value Reference Range Interpretation Comments COVID19 (SARS Not Detected Not Detected CoV-2) Result (test code = ____[place] test i s a 49328-2) qualitative reverse-transcr iptase polymerase karla n reaction (RT-PC R) developed for t he [employer] MAHAMED 680 0 system and inte nded [...] patients provid ed by the manufacture r ([employer]) c an be reviewed at:https://www. fda.go v/media/054065/ downlo ad. A fact shee t for Health Care pro viders is provided by the cook pressure ([employer]) and can be reviewed at: https://www.fda .gov/m edia/088299/corinne nload Results must be interpreted wit hin [...] were verified by the Microbiology Laboratory at [facility] [place], CLIA Accreditation # : [id number] and CAP Accreditation # : [id number]. COVID19 SARS MANAGER LIFE Swab Source (test code = 62210) COVID19 SARS Pre-Out of OR Indication (test Procedure code = 43099) [facility] [place] [place] PCR- Asymptomatic [id number] 04:11:05 Test Item Value Reference Range Interpretation Comments COVID19 (SARS Not Detected Not Detected CoV-2) Result (test code = ____This test i s a 48141-0) qualitative reverse-transcr iptase polymerase karla n reaction [...] patients provid ed by the manufacture r ([employer]) c an be reviewed at:https://www. fda.go v/media/318912/ downlo ad. A fact shee t for Health Care pro viders is provided by the cook pressure ([employer]) and can be reviewed at: https://www.fda .gov/m edia/145494/corinne nload Results must be interpreted wit hin [...] were verified by the Microbiology Laboratory at [facility], CLIA Accreditation # : [id number] and CAP Accreditation # : [id number]. COVID19 SARS MANAGER LIFE Swab Source (test code = 27924) COVID19 SARS Pre-Out of OR Indication (test Procedure code = 84869) [facility]- Asymptomatic [id number] 04:11:05 Test Item Value Reference Range Interpretation Comments COVID19 (SARS Not Detected Not Detected CoV-2) Result (test code = ____This test i s a 94104-2) qualitative reverse-transcr iptase polymerase karla n reaction [...] patients provid ed by the manufacture r ([employer]) c an be reviewed at:https://www. fda.go v/media/738629/ downlo ad. A fact shee t for Health Care pro viders is provided by the cook pressure ([employer]) and can be reviewed at: https://www.fda .gov/m edia/349194/corinne nload Results must be interpreted wit hin [...] were verified by the Microbiology Laboratory at [facility], CLIA Accreditation # : [id number] and CAP Accreditation # : [id number]. COVID19 SARS MANAGER LIFE Swab Source (test code = 09128) COVID19 SARS Pre-Out of OR Indication (test Procedure code = 32266) [facility] [place] [place] PCR- Asymptomatic [id number] 04:11:05 Test Item Value Reference Range Interpretation Comments COVID19 (SARS Not Detected Not Detected CoV-2) Result (test code = ____This test i s a 29785-8) qualitative reverse-transcr iptase polymerase karla n reaction (RT-PC R) developed for t he [employer] 680 0 system and inte nded [...] patients provid ed by the manufacture r ([employer]) c an be reviewed at:https://www. fda.go v/media/155405/ downlo ad. A fact shee t for Health Care pro viders is provided by the cook pressure ([employer]) and can be reviewed at: https://www.fda .gov/m edia/601363/corinne nload Results must be interpreted wit hin [...] were verified by the Microbiology Laboratory at [facility], CLIA Accreditation # : [id number] and CAP Accreditation # : [id number]. COVID19 SARS MANAGER LIFE Swab Source (test code = 26504) COVID19 SARS Pre-Out of OR Indication (test Procedure code = 44470) [facility] [place] ([facility]-2) PCR- Asymptomatic [id number] 04:11:05 Test Item Value Reference Range Interpretation Comments COVID19 (SARS Not Detected Not Detected CoV-2) Result (test code = ____This test i s a 12448-8) qualitative reverse-transcr iptase polymerase karla n reaction [...] patients provid ed by the manufacture r ([employer]) c an be reviewed at:https://www. fda.go v/media/323576/ downlo ad. A fact shee t for Health Care pro viders is provided by the cook pressure ([employer]) and can be reviewed at: https://www.fda .gov/m edia/413819/corinne nload Results must be interpreted wit hin [...] were verified by the Microbiology Laboratory at [facility], CLIA Accreditation # : [id number] and CAP Accreditation # : [id number]. COVID19 SARS MANAGER LIFE Swab Source (test code = 69714) COVID19 SARS Pre-Out of OR Indication (test Procedure code = 08124) [facility]- Asymptomatic [id number] 04:11:05 Test Item Value Reference Range Interpretation Comments COVID19 (SARS Not Detected Not Detected CoV-2) Result (test code = ____This test i s a 42958-1) qualitative reverse-transcr iptase polymerase karla n reaction [...] patients provid ed by the manufacture r ([employer]) c an be reviewed at:https://www. fda.go v/media/970979/ downlo ad. A fact shee t for Health Care pro viders is provided by the cook pressure ([employer]) and can be reviewed at: https://www.fda .gov/m edia/912352/corinne nload Results must be interpreted wit hin [...] were verified by the Microbiology Laboratory at [facility], CLIA Accreditation # : [id number] and CAP Accreditation # : [id number]. COVID19 SARS MANAGER LIFE Swab Source (test code = 03674) COVID19 SARS Pre-Out of OR Indication (test Procedure code = 53685) [facility] [place] [place] PCR- Asymptomatic [id number] 04:11:05 Test Item Value Reference Range Interpretation Comments COVID19 (SARS Not Detected Not Detected CoV-2) Result (test code = ____This test i s a 99710-4) qualitative reverse-transcr iptase polymerase karla n reaction [...] patients provid ed by the manufacture r ([employer]) c an be reviewed at:https://www. fda.go v/media/706211/ halimalo ad. A fact shee t for Health Care pro viders is provided by the cook pressure ([employer]) and can be reviewed at: https://www.fda .gov/m edia/673550/corinne nload Results must be interpreted wit hin [...] were verified by the Microbiology Laboratory at [facility], CLIA Accreditation # : [id number] and CAP Accreditation # : [id number]. COVID19 SARS MANAGER LIFE Swab Source (test code = 95456) COVID19 SARS Pre-Out of OR Indication (test Procedure code = 51215) [facility] [place] ([facility]-2) PCR- Asymptomatic [id number] 04:11:05 Test Item Value Reference Range Interpretation Comments COVID19 (SARS Not Detected Not Detected CoV-2) Result (test code = ____This test i s a 11005-3) qualitative reverse-transcr iptase polymerase karla n reaction [...] patients provid ed by the manufacture r ([employer]) c an be reviewed at:https://www. fda.go v/media/862173/ downlo ad. A fact shee t for Health Care pro viders is provided by the cook pressure ([employer]) and can be reviewed at: https://www.fda .gov/m edia/489478/corinne nload Results must be interpreted wit hin [...] were verified by the Microbiology Laboratory at [facility], CLIA Accreditation # : [id number] and CAP Accreditation # : [id number]. COVID19 SARS MANAGER LIFE Swab Source (test code = 67406) COVID19 SARS Pre-Out of OR Indication (test Procedure code = 65055) [facility]- Asymptomatic [id number] 04:11:05 Test Item Value Reference Range Interpretation Comments COVID19 (SARS Not Detected Not Detected CoV-2) Result (test code = ____This test i s a 08756-0) qualitative reverse-transcr iptase polymerase karla n reaction [...] patients provid ed by the manufacture r ([employer]) c an be reviewed at:https://www. fda.go v/media/198766/ downlo ad. A fact shee t for Health Care pro viders is provided by the cook pressure ([employer]) and can be reviewed at: https://www.fda .gov/m edia/017418/corinne nload Results must be interpreted wit hin [...] were verified by the Microbiology Laboratory at [facility], CLIA Accreditation # : [id number] and CAP Accreditation # : [id number]. COVID19 SARS MANAGER LIFE Swab Source (test code = 70942) COVID19 SARS Pre-Out of OR Indication (test Procedure code = 51482) [facility] [place] ([facility]-2) PCR- Asymptomatic [id number] 04:11:05 Test Item Value Reference Range Interpretation Comments COVID19 (SARS Not Detected Not Detected CoV-2) Result (test code = ____This test i s a 93594-9) qualitative reverse-transcr iptase polymerase karla n reaction [...] patients provid ed by the manufacture r ([employer]) c an be reviewed at:https://www. fda.go v/media/418845/ downlo ad. A fact shee t for Health Care pro viders is provided by the cook pressure ([employer]) and can be reviewed at: https://www.fda .gov/m edia/567724/corinne nload Results must be interpreted wit hin [...] were verified by the Microbiology Laboratory at [facility], CLIA Accreditation # : [id number] and CAP Accreditation # : [id number]. COVID19 SARS MANAGER LIFE Swab Source (test code = 17037) COVID19 SARS Pre-Out of OR Indication (test Procedure code = 88037) [facility] [place] ([facility]-2) PCR- Asymptomatic [id number] 04:11:05 Test Item Value Reference Range Interpretation Comments COVID19 (SARS Not Detected Not Detected CoV-2) Result (test code = ____This test i s a 18313-5) qualitative reverse-transcr iptase polymerase karla n reaction [...] patients provid ed by the manufacture r ([employer]) c an be reviewed at:https://www. fda.go v/media/637438/ downlo ad. A fact shee t for Health Care pro viders is provided by the cook pressure ([employer]) and can be reviewed at: https://www.fda .gov/m edia/502783/corinne nload Results must be interpreted wit hin [...] were verified by the Microbiology Laboratory at [facility], CLIA Accreditation # : [id number] and CAP Accreditation # : [id number]. COVID19 SARS MANAGER LIFE Swab Source (test code = 46388) COVID19 SARS Pre-Out of OR Indication (test Procedure code = 97420) [facility]- Asymptomatic [id number] 04:11:05 Test Item Value Reference Range Interpretation Comments COVID19 (SARS Not Detected Not Detected CoV-2) Result (test code = ____This test i s a 15227-4) qualitative reverse-transcr iptase polymerase karla n reaction [...] patients provid ed by the manufacture r ([employer]) c an be reviewed at:https://www. fda.go v/media/915644/ downlo ad. A fact shee t for Health Care pro viders is provided by the cook pressure ([employer]) and can be reviewed at: https://www.fda .gov/m edia/381902/corinne nload Results must be interpreted wit hin [...] were verified by the Microbiology Laboratory at [facility], CLIA Accreditation # : [id number] and CAP Accreditation # : [id number]. COVID19 SARS MANAGER LIFE Swab Source (test code = 25822) COVID19 SARS Pre-Out of OR Indication (test Procedure code = 25246) [facility] [id number] 20:13:39 Test Item Value Reference Range Interpretation Comments HCVAb. (test Non Reactive Non Reactive Antibody detect ion in the code = 5762) immunocompromis ed and immunosuppresse d population may be delayed or absent entirely. There fore serial testing, correl ation with other clinical findings, and supplementa l testing (if available) should be taken into cons ideration when interpreti ng the results. [facility] [id number] 20:13:39 Test Item Value Reference Range Interpretation Comments HCVAb. (test Non Reactive Non Reactive Antibody detect ion in the code = 5762) immunocompromis ed and immunosuppresse d population may be delayed or absent entirely. There fore serial testing, correl ation with other clinical findings, and supplementa l testing (if available) should be taken into cons ideration when interpreti ng the results. [facility] C Virus [id number] 20:13:39 Test Item Value Reference Range Interpretation Comments HCVAb. (test Non Reactive Non Reactive Antibody detect ion in the code = 5762) immunocompromis ed and immunosuppresse d population may be delayed or absent entirely. There fore serial testing, correl ation with other clinical findings, and supplementa l testing (if available) should be taken into cons ideration when interpreti ng the results. [facility] C Virus [id number] 20:13:39 Test Item Value Reference Range Interpretation Comments HCVAb. (test Non Reactive Non Reactive Antibody detect ion in the code = 5762) immunocompromis ed and immunosuppresse d population may be delayed or absent entirely. There fore serial testing, correl ation with other clinical findings, and supplementa l testing (if available) should be taken into cons ideration when interpreti ng the results. [facility] C Virus [id number] 20:13:39 Test Item Value Reference Range Interpretation Comments HCVAb. (test Non Reactive Non Reactive Antibody detect ion in the code = 5762) immunocompromis ed and immunosuppresse d population may be delayed or absent entirely. There fore serial testing, correl ation with other clinical findings, and supplementa l testing (if available) should be taken into cons ideration when interpreti ng the results. [facility] C Virus [id number] 20:13:39 Test Item Value Reference Range Interpretation Comments HCVAb. (test Non Reactive Non Reactive Antibody detect ion in the code = 5762) immunocompromis ed and immunosuppresse d population may be delayed or absent entirely. There fore serial testing, correl ation with other clinical findings, and supplementa l testing (if available) should be taken into cons ideration when interpreti ng the results. [facility] C Virus [id number] 20:13:39 Test Item Value Reference Range Interpretation Comments HCVAb. (test Non Reactive Non Reactive Antibody detect ion in the code = 5762) immunocompromis ed and immunosuppresse d population may be delayed or absent entirely. There fore serial testing, correl ation with other clinical findings, and supplementa l testing (if available) should be taken into cons ideration when interpreti ng the results. [facility] C Virus [id number] 20:13:39 Test Item Value Reference Range Interpretation Comments HCVAb. (test Non Reactive Non Reactive Antibody detect ion in the code = 5762) immunocompromis ed and immunosuppresse d population may be delayed or absent entirely. There fore serial testing, correl ation with other clinical findings, and supplementa l testing (if available) should be taken into cons ideration when interpreti ng the results. [facility] C Virus [id number] 20:13:39 Test Item Value Reference Range Interpretation Comments HCVAb. (test Non Reactive Non Reactive Antibody detect ion in the code = 5762) immunocompromis ed and immunosuppresse d population may be delayed or absent entirely. There fore serial testing, correl ation with other clinical findings, and supplementa l testing (if available) should be taken into cons ideration when interpreti ng the results. [facility] C Virus [id number] 20:13:39 Test Item Value Reference Range Interpretation Comments HCVAb. (test Non Reactive Non Reactive Antibody detect ion in the code = 5762) immunocompromis ed and immunosuppresse d population may be delayed or absent entirely. There fore serial testing, correl ation with other clinical findings, and supplementa l testing (if available) should be taken into cons ideration when interpreti ng the results. [facility] C Virus [id number] 20:13:39 Test Item Value Reference Range Interpretation Comments HCVAb. (test Non Reactive Non Reactive Antibody detect ion in the code = 5762) immunocompromis ed and immunosuppresse d population may be delayed or absent entirely. There fore serial testing, correl ation with other clinical findings, and supplementa l testing (if available) should be taken into cons ideration when interpreti ng the results. [facility] [id number] 20:13:39 Test Item Value Reference Range Interpretation Comments HCVAb. (test Non Reactive Non Reactive Antibody detect ion in the code = 5762) immunocompromis ed and immunosuppresse d population may be delayed or absent entirely. There fore serial testing, correl ation with other clinical findings, and supplementa l testing (if available) should be taken into cons ideration when interpreti ng the results. [facility] Center[facility]yroglobulin2023-[facility] 20:09:03 Test Item Value Reference Range Interpretation [...] ng/mL. Thyroglob Ab (test See_Comment Due to [employer] code = 7621) antigen specifi city, affinity and av idity of capture and conjugate antib odies in their epitop e reactions, some thyroglobulin antibody sample s may not dilute line helena when results ex ceed 1650 IU/mL. [Automated mess age] The system [employer] generated this result transmitted ref erence range: <=3.9 IU/ml. The refe rence range was not u sed to interpret this result as normal/abnor mal. [facility] Center[facility]yroglobulin2023-01-18 20:09:03 Test Item Value Reference Range Interpretation [...] ng/mL. Thyroglob Ab (test See_Comment Due to [employer] code = 7621) antigen specifi city, affinity and av idity of capture and conjugate antib odies in their epitop e reactions, some thyroglobulin antibody sample s may not dilute line helena when results ex ceed 1650 IU/mL. [Automated mess age] The system [employer] generated this result transmitted ref erence range: <=3.9 IU/ml. The refe rence range was not u sed to interpret this result as normal/abnor mal. [facility] Center[facility]yroglobulin2023-01-18 20:09:03 Test Item Value Reference Range Interpretation [...] ng/mL. Thyroglob Ab (test See_Comment Due to [employer] code = 7621) antigen specifi city, affinity and av idity of capture and conjugate antib odies in their epitop e reactions, some thyroglobulin antibody sample s may not dilute line helena when results ex ceed 1650 IU/mL. [Automated mess age] The system [employer] generated this result transmitted ref erence range: <=3.9 IU/ml. The refe rence range was not u sed to interpret this result as normal/abnor mal. [facility] [facility] 20:09:03 Test Item Value Reference Range Interpretation [...] ng/mL. Thyroglob Ab (test See_Comment Due to [employer] code = 7621) antigen specifi city, affinity and av idity of capture and conjugate antib odies in their epitop e reactions, some thyroglobulin antibody sample s may not dilute line helena when results ex ceed 1650 IU/mL. [Automated mess age] The system [employer] generated this result transmitted ref erence range: <=3.9 IU/ml. The refe rence range was not u sed to interpret this result as normal/abnor mal. [facility] Test Item Value Reference Range Interpretation [...] ng/mL. Thyroglob Ab (test See_Comment Due to [employer] code = 7621) antigen specifi city, affinity and av idity of capture and conjugate antib odies in their epitop e reactions, some thyroglobulin antibody sample s may not dilute line helena when results ex ceed 1650 IU/mL. [Automated mess age] The system [employer] generated this result transmitted ref erence range: <=3.9 IU/ml. The refe rence range was not u sed to interpret this result as normal/abnor mal. [facility] 20:09:03 Test Item Value Reference Range Interpretation [...] ng/mL. Thyroglob Ab (test See_Comment Due to [employer] code = 7621) antigen specifi city, affinity and av idity of capture and conjugate antib odies in their epitop e reactions, some thyroglobulin antibody sample s may not dilute line helena when results ex ceed 1650 IU/mL. [Automated mess age] The system [employer] generated this result transmitted ref erence range: <=3.9 IU/ml. The refe rence range was not u sed to interpret this result as normal/abnor mal. [facility] 20:09:03 Test Item Value Reference Range Interpretation [...] Thyroglob Ab (test See_Comment Due to va [employer] code = 7621) antigen specifi city, affinity and av idity of capture and conjugate antib odies in their epitop e reactions, some thyroglobulin antibody sample s may not dilute line helena when results ex ceed 1650 IU/mL. [Automated mess age] The system [employer] generated this result transmitted ref erence range: <=3.9 IU/ml. The refe rence range was not u sed to interpret this result as normal/abnor mal. [facility] 20:09:03 Test Item Value Reference Range Interpretation [...] ng/mL. Thyroglob Ab (test See_Comment Due to [employer] code = 7621) antigen specifi city, affinity and av idity of capture and conjugate antib odies in their epitop e reactions, some thyroglobulin antibody sample s may not dilute line helena when results ex ceed 1650 IU/mL. [Automated mess age] The system [employer] generated this result transmitted ref erence range: <=3.9 IU/ml. The refe rence range was not u sed to interpret this result as normal/abnor mal. [facility] 20:09:03 Test Item Value Reference Range Interpretation [...] ng/mL. Thyroglob Ab (test See_Comment Due to nm rying code = 7621) antigen specifi city, affinity and av idity of capture and conjugate antib odies in their epitop e reactions, some thyroglobulin antibody sample s may not dilute line helena when results ex ceed 1650 IU/mL. [Automated mess age] The system [employer] generated this result transmitted ref erence range: <=3.9 IU/ml. The refe rence range was not u sed to interpret this result as normal/abnor mal. [facility] 20:09:03 Test Item Value Reference Range Interpretation [...] ng/mL. Thyroglob Ab (test See_Comment [facility] to [facility] code = 7621) antigen specifi city, affinity and av idity of capture and conjugate antib odies in their epitop e reactions, some thyroglobulin antibody sample s may not dilute line helena when results ex ceed 1650 IU/mL. [Automated mess age] The system [employer] generated this result transmitted ref erence range: <=3.9 IU/ml. The refe rence range was not u sed to interpret this result as normal/abnor mal. [facility] 20:09:03 Test Item Value Reference Range Interpretation [...] antibody sample s may not dilute line heelna when results ex ceed 1650 IU/mL. [Automated mess age] The system [employer] generated this result transmitted ref erence range: <=3.9 IU/ml. The refe rence range was not u sed to interpret this result as normal/abnor mal. [facility] 20:09:03 Test Item Value Reference Range Interpretation [...] ng/mL. Thyroglob Ab (test See_Comment Due to nm [employer] code = 7621) antigen specifi city, affinity and av idity of capture and conjugate antib odies in their epitop e reactions, some thyroglobulin antibody sample s may not dilute line helena when results ex ceed 1650 IU/mL. [Automated mess age] The system [employer] generated this result transmitted ref erence range: <=3.9 IU/ml. The refe rence range was not u sed to interpret this result as normal/abnor mal. [facility] CenterV[facility] [id number] 19:37:52 Test Item Value Reference Range Interpretation Comments Vitamin D 25 [place] (test 21 ng/mL 30-100 L Refere nce Range: code = 78028-4) Deficiency: <10 ng/mLInsufficie ncy: 10-29 ng/mLSufficienc y: 30-100 ng/mLPotential toxicity: >100 ng/mL Lab Interpretation (test Abnormal code = 80053-8) [facility] Center[facility] [id number] 19:37:52 Test Item Value Reference Range Interpretation Comments Vitamin D 25 OH (test 21 ng/mL 30-100 L Refere nce Range: code = 00091-9) Deficiency: <10 ng/mLInsufficie ncy: 10-29 ng/mLSufficienc y: 30-100 ng/mLPotential toxicity: >100 ng/mL Lab Interpretation (test Abnormal code = 04737-7) [facility] [id number] 19:37:52 Test Item Value Reference Range Interpretation Comments Vitamin D 25 [place] (test 21 ng/mL 30-100 L Refere nce Range: code = 70797-3) Deficiency: <10 ng/mLInsufficie ncy: 10-29 ng/mLSufficienc y: 30-100 ng/mLPotential toxicity: >100 ng/mL Lab Interpretation (test Abnormal code = 72338-8) [facility] [id number] 19:37:52 Test Item Value Reference Range Interpretation Comments Vitamin D 25 OH (test 21 ng/mL 30-100 L Refere nce Range: code = 60516-4) Deficiency: <10 ng/mLInsufficie ncy: 10-29 ng/mLSufficienc y: 30-100 ng/mLPotential toxicity: >100 ng/mL Lab Interpretation (test Abnormal code = 67231-9) [facility] [id number] 19:37:52 Test Item Value Reference Range Interpretation Comments Vitamin D 25 [place] (test 21 ng/mL 30-100 L Refere nce Range: code = 16513-8) Deficiency: <10 ng/mLInsufficie ncy: 10-29 ng/mLSufficienc y: 30-100 ng/mLPotential toxicity: >100 ng/mL Lab Interpretation (test Abnormal code = 60772-9) [facility] [id number] 19:37:52 Test Item Value Reference Range Interpretation Comments Vitamin D 25 [place] (test 21 ng/mL 30-100 L Refere nce Range: code = 71543-2) Deficiency: <10 ng/mLInsufficie ncy: 10-29 ng/mLSufficienc y: 30-100 ng/mLPotential toxicity: >100 ng/mL Lab Interpretation (test Abnormal code = 17645-7) [facility] [id number] 19:37:52 Test Item Value Reference Range Interpretation Comments Vitamin D 25 [place] (test 21 ng/mL 30-100 L Refere nce Range: code = 91337-6) Deficiency: <10 ng/mLInsufficie ncy: 10-29 ng/mLSufficienc y: 30-100 ng/mLPotential toxicity: >100 ng/mL Lab Interpretation (test Abnormal code = 80106-2) [facility] [id number] 19:37:52 Test Item Value Reference Range Interpretation Comments Vitamin D 25 [place] (test 21 ng/mL 30-100 L Refere nce Range: code = 67681-9) Deficiency: <10 ng/mLInsufficie ncy: 10-29 ng/mLSufficienc y: 30-100 ng/mLPotential toxicity: >100 ng/mL Lab Interpretation (test Abnormal code = 83207-5) [facility] [id number] 19:37:52 Test Item Value Reference Range Interpretation Comments Vitamin D 25 OH (test 21 ng/mL 30-100 L Refere nce Range: code = 88914-1) Deficiency: <10 ng/mLInsufficie ncy: 10-29 ng/mLSufficienc y: 30-100 ng/mLPotential toxicity: >100 ng/mL Lab Interpretation (test Abnormal code = 68670-1) [facility] [id number] 19:37:52 Test Item Value Reference Range Interpretation Comments Vitamin D 25 OH (test 21 ng/mL 30-100 L Refere nce Range: code = 92601-0) Deficiency: <10 ng/mLInsufficie ncy: 10-29 ng/mLSufficienc y: 30-100 ng/mLPotential toxicity: >100 ng/mL Lab Interpretation (test Abnormal code = 52513-5) [facility] [id number] 19:37:52 Test Item Value Reference Range Interpretation Comments Vitamin D 25 [place] (test 21 ng/mL 30-100 L Refere nce Range: code = 77347-8) Deficiency: <10 ng/mLInsufficie ncy: 10-29 ng/mLSufficienc y: 30-100 ng/mLPotential toxicity: >100 ng/mL Lab Interpretation (test Abnormal code = 93927-0) [facility] [id number] 19:37:52 Test Item Value Reference Range Interpretation Comments Vitamin D 25 [place] (test 21 ng/mL 30-100 L Refere nce Range: code = 34866-1) Deficiency: <10 ng/mLInsufficie ncy: 10-29 ng/mLSufficienc y: 30-100 ng/mLPotential toxicity: >100 ng/mL Lab Interpretation (test Abnormal code = 85261-0) [facility] CenterTSH2023-01-[facility] 19:28:34 Test Item Value Reference Range Interpretation Comments TSH (test code = 0.01 See_Comment L [Automated message] 75329-1) The system [employer] generated this result transmitted ref erence range: 0.27 - 4 .20 mcunit/mL. The reference range was not used to int erpret this result as normal/abnormal . Lab Interpretation (test Abnormal code = 36913-0) [facility] CenterTSH20[facility] 19:28:34 Test Item Value Reference Range Interpretation Comments TSH (test code = 0.01 See_Comment L [Automated message] 37644-7) The system [employer] generated this result transmitted ref erence range: 0.27 - 4 .20 mcunit/mL. The reference range was not used to int erpret this result as normal/abnormal . Lab Interpretation (test Abnormal code = 88978-2) [facility] 19:28:34 Test Item Value Reference Range Interpretation Comments TSH (test code = 0.01 See_Comment L [Automated message] 67900-4) The system [employer] generated this result transmitted ref erence range: 0.27 - 4 .20 mcunit/mL. The reference range was not used to int erpret this result as normal/abnormal . Lab Interpretation (test Abnormal code = 61986-8) [facility]:28[facility]34 Test Item Value Reference Range Interpretation Comments TSH (test code = 0.01 See_Comment L [Automated message] 90097-9) The system [employer] generated this result transmitted ref erence range: 0.27 - 4 .20 mcunit/mL. The reference range was not used to int erpret this result as normal/abnormal . Lab Interpretation (test Abnormal code = 60677-5) [place] [id number] 19:28:34 Test Item Value Reference Range Interpretation Comments TSH (test code = 0.01 See_Comment L [Automated message] 23551-7) The system [employer] generated this result transmitted ref erence range: 0.27 - 4 .20 mcunit/mL. The reference range was not used to int erpret this result as normal/abnormal . Lab Interpretation (test Abnormal code = 64427-6) [place] [id number] 19:28:34 Test Item Value Reference Range Interpretation Comments TSH (test code = 0.01 See_Comment L [Automated message] 29746-5) The system [employer] generated this result transmitted ref erence range: 0.27 - 4 .20 mcunit/mL. The reference range was not used to int erpret this result as normal/abnormal . Lab Interpretation (test Abnormal code = 49900-4) [place] [id number] 19:28:34 Test Item Value Reference Range Interpretation Comments TSH (test code = 0.01 See_Comment L [Automated message] 95723-3) The system [employer] generated this result transmitted ref erence range: 0.27 - 4 .20 mcunit/mL. The reference range was not used to int erpret this result as normal/abnormal . Lab Interpretation (test Abnormal code = 71844-9) [place] [id number] 19:28:34 Test Item Value Reference Range Interpretation Comments TSH (test code = 0.01 See_Comment L [Automated message] 90653-6) The system [employer] generated this result transmitted ref erence range: 0.27 - 4 .20 mcunit/mL. The reference range was not used to int erpret this result as normal/abnormal . Lab Interpretation (test Abnormal code = 26869-1) [facility] 19:28:34 Test Item Value Reference Range Interpretation Comments TSH (test code = 0.01 See_Comment L [Automated message] 96682-8) The system [employer] generated this result transmitted ref erence range: 0.27 - 4 .20 mcunit/mL. The reference range was not used to int erpret this result as normal/abnormal . Lab Interpretation (test Abnormal code = 97152-1) [facility] 19:28:34 Test Item Value Reference Range Interpretation Comments TSH (test code = 0.01 See_Comment L [Automated message] 45143-5) The system [employer] generated this result transmitted ref erence range: 0.27 - 4 .20 mcunit/mL. The reference range was not used to int erpret this result as normal/abnormal . Lab Interpretation (test Abnormal code = 77809-3) [facility] 19:28:34 Test Item Value Reference Range Interpretation Comments TSH (test code = 0.01 See_Comment L [Automated message] 24806-2) The system [employer] generated this result transmitted ref erence range: 0.27 - 4 .20 mcunit/mL. The reference range was not used to int erpret this result as normal/abnormal . Lab Interpretation (test Abnormal code = 16785-7) [facility] 19:28:34 Test Item Value Reference Range Interpretation Comments TSH (test code = 0.01 See_Comment L [Automated message] 02226-5) The system [employer] generated this result transmitted ref erence range: 0.27 - 4 .20 mcunit/mL. The reference range was not used to int erpret this result as normal/abnormal . Lab Interpretation (test Abnormal code = 74294-2) [facility] CenterFree [id number] 19:28:32 Test Item Value Reference Range Interpretation Comments T4 Free (test code = 3024-7) 1.74 ng/dL 0.93-1.70 H Lab Interpretation (test code = Abnormal 34819-0) [place] [id number] 19:28:32 Test Item Value Reference Range Interpretation Comments T4 Free (test code = 3024-7) 1.74 ng/dL 0.93-1.70 H Lab Interpretation (test code = Abnormal 59536-7) [place] [id number] 19:28:32 Test Item Value Reference Range Interpretation Comments T4 Free (test code = 3024-7) 1.74 ng/dL 0.93-1.70 H Lab Interpretation (test code = Abnormal 58325-9) [place] [id number] 19:28:32 Test Item Value Reference Range Interpretation Comments T4 Free (test code = 3024-7) 1.74 ng/dL 0.93-1.70 H Lab Interpretation (test code = Abnormal 60486-5) [place] [id number] 19:28:32 Test Item Value Reference Range Interpretation Comments T4 Free (test code = 3024-7) 1.74 ng/dL 0.93-1.70 H Lab Interpretation (test code = Abnormal 19899-8) [place] [id number] 19:28:32 Test Item Value Reference Range Interpretation Comments T4 Free (test code = 3024-7) 1.74 ng/dL 0.93-1.70 H Lab Interpretation (test code = Abnormal 57829-2) [place] [id number] 19:28:32 Test Item Value Reference Range Interpretation Comments T4 Free (test code = 3024-7) 1.74 ng/dL 0.93-1.70 H Lab Interpretation (test code = Abnormal 52983-8) [facility] [id number] 19:21:21 Test Item Value Reference Range Interpretation Comments PTH Intact (test code = 6769) 21.0 pg/mL 15.0-65.0 [facility] [id number] 19:21:21 Test Item Value Reference Range Interpretation Comments PTH Intact (test code = 6769) 21.0 pg/mL 15.0-65.0 [facility] [id number] 19:21:21 Test Item Value Reference Range Interpretation Comments PTH Intact (test code = 6769) 21.0 pg/mL 15.0-65.0 [facility] [id number] 19:21:21 Test Item Value Reference Range Interpretation Comments PTH Intact (test code = 6769) 21.0 pg/mL 15.0-65.0 [facility] [id number] 19:21:21 Test Item Value Reference Range Interpretation Comments PTH Intact (test code = 6769) 21.0 pg/mL 15.0-65.0 [facility] [id number] 19:21:21 Test Item Value Reference Range Interpretation Comments PTH Intact (test code = 6769) 21.0 pg/mL 15.0-65.0 [facility] [id number] 19:21:21 Test Item Value Reference Range Interpretation Comments PTH Intact (test code = 6769) 21.0 pg/mL 15.0-65.0 [facility] [id number] 19:21:21 Test Item Value Reference Range Interpretation Comments PTH Intact (test code = 6769) 21.0 pg/mL 15.0-65.0 [facility] [id number] 19:21:21 Test Item Value Reference Range Interpretation Comments PTH Intact (test code = 6769) 21.0 pg/mL 15.0-65.0 [facility] [id number] 19:21:21 Test Item Value Reference Range Interpretation Comments PTH Intact (test code = 6769) 21.0 pg/mL 15.0-65.0 [facility] [id number] 19:21:21 Test Item Value Reference Range Interpretation Comments PTH Intact (test code = 6769) 21.0 pg/mL 15.0-65.0 [facility] [id number] 19:21:21 Test Item Value Reference Range Interpretation Comments PTH Intact (test code = 6769) 21.0 pg/mL 15.0-65.0 [facility] [place], [id number] 13:24:45SPECIMEN NUMBER: [id number] CULTURE, ANAEROBIC SPECIMEN NUMBER: [id number] SPECIMEN COMMENT: UND SOURCE: UNDEFINED REPORT STATUS: FINAL DIRECT GRAM STAIN: NO WBCs SEEN ABUNDANT GRAM POSITIVE COCCI FINALREPORT: 02/13/2022 NO ANAEROBES RECOVERED AFTER 5 DAYS PRELIMINARY ANAEROBE REPORT: 02/12/2022 NO ANAEROBES ISOLATED AT 4 DAYS ADDITIONAL OBSERVATIONS: 02/13/2022 POTENTIAL AEROBIC PATHOGEN RECOVERED.NO FURTHER WORKUP UNLESS REQUESTED. UNLESS OTHERWISE INDICATED, ALL TESTING PERFORMED [facility] [address] [place] [address] NEON TUBE BENDER: LUZMARIA HAUSER M.D. CLIA NUMBER [id number] [facility] [place] [id number], [id number] 00:00:00 Test Item Value Reference Range Interpretation Comments CULTURE, ANAEROBIC SPECIMEN NUMBER: (test code = 31024) [id number] CULTURE, [id number] 00:00:00 Test Item Value Reference Range Interpretation Comments CULTURE, ANAEROBIC SPECIMEN NUMBER: (test code = 53159) [id number]
--- NOTE | 2022-10-06 02:08 | EDPHYS ---
Physician Documentation [facility] Name: Veronica Olmstead Age: 26 yrs Sex: Female : 1995 Arrival Date: 10/06/2022 Time: 01:36 Bed 8 Private MD: ED Physician Nohemy Mackenzie HPI: 10/06 02:02 This 26 yrs old Female presents to ER via Unassigned with complaints of sd2 Toothache. 02:02 26 yo F presents with CC of toothache that started around 3PM yesterday afternoon and sd2 has progressively worsened. Reports pain is localized to her 2 upper molars on the right side which she has crowns applied to both in the past. Denies fever, facial swelling, vomiting or other symptoms. No relief with Orajel and Tylenol at home.. Historical: - PMHx: 02:03 diabetes mellitus; Leukemia; THYROID CANCER; rv - PSHx: 02:03 Thyroidectomy; rv - Immunization history:: Adult Immunizations up to date. - Social history:: Smoking status: Patient denies any tobacco usage or history of. ROS: 02:02 Constitutional: Negative for fever, chills, and weight loss, Eyes: Negative for injury, sd2 pain, redness, and discharge, ENT: Negative for injury and discharge, Positive for dental pain Neck: Negative for injury, pain, and swelling, Cardiovascular: Negative for chest pain, palpitations, and edema, Skin: Negative for injury, rash, and discoloration, Neuro: Negative for headache, numbness and tingling. Exam: 02:02 Constitutional: This is a well developed, well nourished patient who is awake, alert, sd2 and in no acute distress. Head/Face: Normocephalic, atraumatic. Eyes: EOMI, normal conjunctiva bilaterally ENT: Nares patent. No nasal discharge, no septal abnormalities noted. Tympanic membranes are normal and external auditory canals are clear. Oropharynx with no redness, swelling, or masses, exudates, or evidence of obstruction, uvula midline. Mucous membranes moist. Right upper molar and premolar noted to have percussion tenderness with no gumline swelling or visible abscesses Skin: Warm, dry with normal turgor. Normal color with no rashes, no lesions, and no evidence of cellulitis. MS/ Extremity: Pulses equal, no cyanosis. Neurovascular intact. Full, normal range of motion. Ambulatory without difficulty. Psych: Awake, alert, with orientation to person, place and time. Behavior, mood, and affect are within normal limits. Vital Signs: 02:01 BP 184 / 117; Pulse 90; Resp 18; Temp 98.5; Pulse Ox 100% ; Weight 45.36 kg; Height 4 rv ft. 11 in. ; 02:27 BP 163 / 100; Pulse 86; Resp 16; Pulse Ox 100% on R/A; rv 02:01 Body Mass Index 20.20 (45.36 kg, 149.86 cm) rv MDM: 01:53 Patient medically screened. sd2 02:02 Differential diagnosis: periapical abscess, gingivitis, aphthous ulcers, dental caries sd2 among others. Data reviewed: vital signs, nurses notes. I considered the following discharge prescriptions or medication management in the emergency department Medications were administered in the Emergency Department. See MAR. Care significantly affected by the following chronic conditions: Diabetes, Cancer. Counseling: I had a detailed discussion with the patient and/or guardian regarding: the historical points, exam findings, and any diagnostic results supporting the discharge/admit diagnosis, the need for outpatient follow up, to return to the emergency department if symptoms worsen or persist or if there are any questions or concerns that arise at home. ED course: No visible abscess for drainage. Pain control given and will start on oral abx. Pt plans to follow up with her dentist tomorrow to have the tooth rechecked. Verbalizes understanding of discharge plan and strict return precautions at this time.. Administered Medications: 02:21 Not Given (Physician Discretion): penicillin VK PO 500 mg PO once sd2 02:27 Drug: Acetaminophen-Codeine PO (300 mg-30 mg) 1 tablet Route: PO; rv 02:27 Follow up: Response: Medication administered at discharge. rv 02:27 Drug: Clindamycin PO 300 mg Route: PO; rv 02:27 Follow up: Response: Medication administered at discharge. rv Disposition Summary: 10/06/22 02:07 Discharge Ordered Location: Home sd2 Problem: new sd2 Symptoms: have improved sd2 Condition: Stable sd2 Diagnosis - Dental pain sd2 Followup: sd2 - With: Private Physician - When: 1 - 2 days - Reason: Recheck today's complaints, Continuance of care Discharge Instructions: - Discharge Summary Sheet sd2 - Dental Pain sd2 Forms: - Medication Reconciliation Form sd2 - Thank You Letter sd2 - Antibiotic Education sd2 - Prescription Opioid Use sd2 - Patient Portal Instructions sd2 - Leadership Thank You Letter sd2 Prescriptions: - acetaminophen-codeine 300-15 mg Oral tablet - take 1 tablet by ORAL route every 6 hours As needed as needed for pain; 12 sd2 tablet; Refills: 0, Product Selection Permitted - penicillin V potassium 500 mg Oral tablet - take 1 tablet by ORAL route 4 times per day for 10 days; 40 tablet; Refills: 0, sd2 Product Selection Permitted Signatures: Beau Jacinto RN RN rv Dunlop, Stephanie, MD MD sd2
--- NOTE | 2022-10-06 02:08 | ER ---
Nurse's Notes [facility] Name: Veronica Olmstead Age: 26 yrs Sex: Female : 1995 Arrival Date: 10/06/2022 Time: 01:36 Bed 8 Private MD: Diagnosis: Dental pain Presentation: 10/06 02:01 Chief complaint: Patient states: TOOTHACHE SINCE 150O YESTERDAY. Coronavirus screen: rv Vaccine status: At this time, the client does not indicate any symptoms associated with coronavirus-19. Ebola Screen: No symptoms or risks identified at this time. Initial Sepsis Screen: Does the patient meet any 2 criteria? No. Patient's initial sepsis screen is negative. Does the patient have a suspected source of infection? No. Patient's initial sepsis screen is negative. Risk Assessment: Do you want to hurt yourself or someone else? Patient reports no desire to harm self or others. Onset of symptoms was October 05, 2022. 02:01 Method Of Arrival: Ambulatory rv 02:01 Acuity: MARINA 5 rv Triage Assessment: 02:03 General: Appears uncomfortable, Behavior is calm, cooperative. Pain: Complains of pain rv in TOOTH. EENT: Reports pain since TOOTH. Neuro: Level of Consciousness is awake, alert, obeys commands, Oriented to person, place, time, situation. Cardiovascular: Patient's skin is warm and dry. Respiratory: Airway is patent Respiratory effort is even, unlabored. GI: No signs and/or symptoms were reported involving the gastrointestinal system. : No signs and/or symptoms were reported regarding the genitourinary system. Historical: - PMHx: 02:03 diabetes mellitus; Leukemia; THYROID CANCER; rv - PSHx: 02:03 Thyroidectomy; rv - Immunization history:: Adult Immunizations up to date. - Social history:: Smoking status: Patient denies any tobacco usage or history of. Screenin:04 [facility] ED Fall Risk Assessment (Adult) History of falling in the last 3 months, rv including since admission No falls in past 3 months (0 pts) Confusion or Disorientation No (0 pts) Intoxicated or Sedated No (0 pts) Impaired Gait No (0 pts) Mobility Assist Device Used No (0 pt) Altered Elimination No (0 pt) Score/Fall Risk Level 0 - 2 = Low Risk Oriented to surroundings, Maintained a safe environment, Educated pt \T\ family on fall prevention, incl call for assistance when getting out of bed, Assessed \T\ reinforced patient's understanding of fall precautions, Provided non-skid footwear, Hourly rounding (assess needs \T\ fall precautionary measures) done, Used ambulatory aids as needed (educated on \T\ assisted with), Used gait belt as appropriate. Abuse screen: Denies threats or abuse. Denies injuries from another. Nutritional screening: No deficits noted. Tuberculosis screening: No symptoms or risk factors identified. Vital Signs: 02:01 BP 184 / 117; Pulse 90; Resp 18; Temp 98.5; Pulse Ox 100% ; Weight 45.36 kg; Height 4 rv ft. 11 in. ; 02:27 BP 163 / 100; Pulse 86; Resp 16; Pulse Ox 100% on R/A; rv 02:01 Body Mass Index 20.20 (45.36 kg, 149.86 cm) rv ED Course: 01:44 Patient arrived in ED. kj1 01:46 Nohemy Mackenzie MD is Attending Physician. sd2 01:58 Beau Jacinto RN is Primary Nurse. rv 02:02 Triage completed. rv 02:04 Arm band placed on right wrist. rv 02:04 Patient has correct armband on for positive identification. Bed in low position. Call rv light in reach. Client placed on continuous cardiac and pulse oximetry monitoring. NIBP monitoring applied. 02:04 No provider procedures requiring assistance completed. Patient did not have IV access rv during this emergency room visit. 02:28 Provided Education on: PAIN. rv Administered Medications: 02:21 Not Given (Physician Discretion): penicillin VK PO 500 mg PO once sd2 02:27 Drug: Acetaminophen-Codeine PO (300 mg-30 mg) 1 tablet Route: PO; rv 02:27 Follow up: Response: Medication administered at discharge. rv 02:27 Drug: Clindamycin PO 300 mg Route: PO; rv 02:27 Follow up: Response: Medication administered at discharge. rv Medication: 02:04 VIS not applicable for this client. rv Outcome: 02:07 Discharge ordered by . sd2 02:28 Discharged to home ambulatory, with family. rv 02:28 Condition: good 02:28 Discharge instructions given to patient, Instructed on discharge instructions, follow up and referral plans. medication usage, Demonstrated understanding of instructions, follow-up care, medications, Prescriptions given X 2. 02:28 Patient left the ED. rv Signatures: Beau Jacinto RN RN Tasia Mariee kj1 Nohemy Mackenzie MD MD sd2
[2022-10-06] MEDS ORDERED: CODEINE 30MG/APAP 300MG TAB ONE (02:20)
[2022-10-06 02:35] VITALS: TEMP 98.5; O2SAT 100
[2022-10-06 02:36] VITALS: BP 163/100
== END 2022-10-06 02:28 | disposition home or self-care (01) ==
LOC: ER 01:36
DX: K08.89 Other specified disorders of teeth and supporting structures (principal)
CPT/HCPCS: 99283

== ENCOUNTER 2022-10-15 06:52 | Day surgery (SDC) | payer BC ==
--- NOTE | 2022-10-10 12:42 | RAD REPORT ---
EXAM DESCRIPTION: RAD - Chest Pa And Lat (2 Views) - 10/10/2022 12:35 pm CLINICAL HISTORY: pre op for surgery COMPARISON: None FINDINGS: Lines: None. Lungs: No evidence of edema or pneumonia. Pleural: No significant pleural effusions or pneumothorax. Cardiac: The heart size is within normal limits. Mediastinum: Within normal limits. Bones: No acute fractures. Other: Partially imaged left ureteral stent. IMPRESSION: No acute cardiopulmonary disease.
[2022-10-10 12:45] LABS: Absolute Lymphocytes (CBC) 2.4 K/uL (0.7-4.9); Hematocrit 34.2 % (36.0-45.0); Lymphocytes % 41.3 % (15.3-44.8); MCV 77.1 fL (80-100); MPV 7.2 fL (7.6-11.3); Platelets 503 thou/uL (152-406); Protime INR 1.03; RBC Red Blood Cell Count 4.44 M/uL (3.86-4.86)
[2022-10-10 13:29] LABS: Potassium 3.9 mEq/L (3.5-5.1)
--- NOTE | 2022-10-11 13:59 | EKG ---
Test Date: 2022-10-10 Test Time: 12:19:41 Machine Or Machinery Mechanic: LEANNA MEASUREMENT RESULTS: Intervals: Rate: 66 MT: 130 QRSD: 80 QT: 414 QTc: 434 [place]: P: 47 MT: 130 QRS: 69 T: 58 INTERPRETIVE STATEMENTS: Normal sinus rhythm Normal ECG No previous ECG available for comparison Electronically Signed On 10-11-22 13:56:30 CDT by Vini Gates
[2022-10-15] MEDS ORDERED: NA CHLORIDE 0.9% 1,000 ML ONE (07:24)
[2022-10-15] MEDS ORDERED: CEFTRIAXONE 1000 MG/VIAL ONE (07:24)
[2022-10-15] MEDS ORDERED: NA CHLORIDE 0.9% 50 ML ONE (07:34)
[2022-10-15] MEDS ORDERED: LIDOCAINE 1% MPF 5 ML VIAL ONE (08:53)
[2022-10-15] MEDS ORDERED: propofoL 200 MG/20 ML VIAL IV ONE (08:53)
[2022-10-15] MEDS ORDERED: KETOROLAC 30 MG/ML INJ ONE (08:53)
[2022-10-15] MEDS ORDERED: MIDAZOLAM HCL 2 MG/2 ML INJ ONE (08:53)
[2022-10-15] MEDS ORDERED: dexAMETHasone 10 MG/ML VIAL ONE (08:53)
[2022-10-15] MEDS ORDERED: FENTANYL CITR 100 MCG/2 ML ONE (08:53)
[2022-10-15] MEDS ORDERED: ONDANSETRON 4 MG/2 ML VIAL ONE (08:54)
[2022-10-15] MEDS ORDERED: Phenylephrine HCl 10 MG/ML 1 ML VIAL ONE (09:33)
[2022-10-15] MEDS ORDERED: EPHEDRINE SULF 50 MG/ML VIAL ONE (09:42)
[2022-10-15] MEDS ORDERED: Mastisol Adhesive Liq ONE (09:49)
--- NOTE | 2022-10-15 10:13 | RAD REPORT ---
EXAM DESCRIPTION: RAD - Urethrocystogrphy Retrograde - 10/15/2022 9:51 am CLINICAL HISTORY: LT STENT EXCHANGE COMPARISON: Urethrocystogrphy Retrograde dated 09/03/2022 FINDINGS/IMPRESSION: Twelve intraoperative fluoroscopic images were submitted showing exchange of a left ureteral stent. Fluoro time: 0.2 minutes
[2022-10-15] MEDS ORDERED: CODEINE 30MG/APAP 300MG TAB PO PRN (10:19)
[2022-10-15] MEDS ORDERED: PHENAZOPYRIDINE 100MG TAB PO ONE (10:19)
[2022-10-15] MEDS ORDERED: HYDRALAZINE HCL 20 MG/ML VIAL ONE (10:28)
[2022-10-15 10:33] VITALS: O2SAT 100
[2022-10-15 13:43] VITALS: BP 105/57; TEMP 97.2
--- NOTE | 2022-10-15 17:00 | OP ---
Surgeon: JULIANNA MALIN Preoperative Diagnoses: 1.Left obstructive ureterolithiasis. 2.Status post left ureteral stent placement. Postoperative Diagnoses: 1.Left obstructive ureterolithiasis. 2.Status post left ureteral stent placement. Principal Procedures: 1.Cystoscopy. 2.Left retrograde pyelography. 3.Left ureteroscopy with laser lithotripsy. 4.Left ureteral stent exchange. 5.Left renal aspirate urine culture. Indication For Procedure: Ms. Olmstead presented via the emergency department with obstructive left b all valving ureterolithiasis with signs of pyelonephritis and thus underwent urgent left ureteral sue nt placement. She presents today for definitive management of her 8 mm ureteral calculus. Procedure In Detail: The patient was consented in the preoperative holding area before being transfe rred to the operative suite where general anesthesia was induced. She was given ceftriaxone 1 g IV a ntimicrobial prophylaxis, and pneumo boots were provided for DVT prophylaxis. Of note, she was being given cephalexin orally for antimicrobial prophylaxis prior to the procedure. She was placed in the lithotomy position, padded and secured to the table appropriately. Her genitalia were prepped with Hibiclens and she was draped in standard fashion. The case was begun using urethral sounds to dilate the meatus given the degree of tightness associated with her very small habitus. After dilating the meatus to 26 [place], I was able to navigate the 22-[place] Citizen rigid cystoscope via the urethra into her bladder with ease. I decompressed her bladder of fluid and urine and then identified the left ureter al stent. I was able to grasp the tip of the stent and deliver it to the meatus leaving the proximal end of the stent within the renal pelvis/proximal ureter. Via the stent, I was then able to pass a Sensor wire and coiled it within the putative upper pole collecting system. Over the Sensor wire, I removed the stent and placed a dual-lumen catheter into the distal ureter before performing a retrogr carlos pyelogram. Left retrograde pyelography: Using a 70:30 mixture of Omnipaque and saline, contrast was injected vi a the second lumen of the dual-lumen catheter and did propagate up the ureter before entering the bhupendra al pelvis and delineating the calyces. The calyceal distribution was bifid with a very long infundib ulum to the upper pole, it from the lower pole calices. As a result, I passed a Bentson g uidewire alongside the Sensor wire as observed fluoroscopically via the second lumen of the dual-lume n catheter and then removed the dual-lumen catheter. Over the Bentson wire, I then advanced a flexib le ureteroscope into the upper pole narendra visible under direct vision. The stone was then identified within the upper pole calyx, at this point, and so I utilized a 272 nm laser fiber at a power settin g of 0.8 joules and 15 hertz increasing to 1 joule and 15 hertz to quickly fragment the stone to dust smaller than a half a millimeter in diameter. I then surveyed the remainder of the upper pole infun dibulum and into the lower pole calyces before surveying down the proximal into the mid and distal ur eter on the way out. No additional calculi were noted. Of note, upon entry into the collecting syst em ureteroscopically, I did note significant cloudiness of the urine; so I gently aspirated the renal pelvis while backfilling it with a degree of saline to avoid collapse of the pelvicalyceal system an d potential development of subcapsular hematoma. This aspirate was sent for culture. I then backloa ded the cystoscope over the indwelling Sensor safety wire and passed a 6 [place] x 22 cm double-J sten t over the wire into the upper pole collecting system with a coil observed fluoroscopically. An asim tional coil was formed cystoscopically within her bladder. The stent was left on its tether, and aft er I decompressed her bladder of fluid and urine, I then secured the string/tether of the stent to he r introitus using Mastisol and Steri-Strips. She was then taken out of the lithotomy position, awake clarisa from general anesthesia, transferred to a stretcher, and then transferred to the recovery room in good condition. Complications: None. Discharge Disposition: We will monitor her for an extended period in the recovery to assess for sign s of febrile development/sepsis given the cloudiness of the urine observed. Otherwise, she should co ntinue on the cephalexin prescribed preoperatively, and I sent an additional several days of the pres cription to cover her until the stent, which was left on its tether, is extracted in the Urology Clin [facility] on Friday. SHARMAINE/MODL Voice ID: [id number] Report ID: [id number]
== END 2022-10-15 12:45 | disposition home or self-care (01) ==
LOC: OR 06:52
PROVIDERS: ATTEND Urology
PROC: 0T778DZ Dilation of Left Ureter with Intraluminal Device, Via Natural or Artificial Opening Endoscopic (ICD-10-PCS; 2022-10-15)
PROC: 0TF78ZZ Fragmentation in Left Ureter, Via Natural or Artificial Opening Endoscopic (ICD-10-PCS; principal; 2022-10-15 09:00)
DX: N20.1 Calculus of ureter (principal); N20.0 Calculus of kidney
CPT/HCPCS: 93005; 87088 ×2; 85025; 87086 ×2; 80048; 36415; 81025; 85610; 82947 ×2; 87077; 87186; 71046; 74450; 51610; 52356; J0360; J2704; J2001; J2371; J2250; J3010; J2405; J7030; J0696; J1100

== ENCOUNTER 2023-01-01 12:13 | Emergency (ER) | payer BC ==
--- OUTSIDE RECORDS SUMMARY | 2023-01-01 12:25 | XMS REPORT | Clinical Summary ---
:1995 Author Organization [facility] Address [address] [place] [address] Care Team Providers Name Role Phone Lolita [...] Claustrophobia anxiety. Active Problems Problem Noted Date Diagnosed Date Stress induced cardiomyopathy 04/01/2022 Acute congestive heart failure 04/01/2022 Acute respiratory distress syndrome 03/26/2022 Pyelonephritis 03/25/2022 Current use of insulin 03/25/2022 Type 2 diabetes mellitus with hyperglycemia 03/13/2022 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 and neck lymph node 05/12/2019 Pulmonary nodules 05/12/2019 Postoperative hypothyroidism 05/12/2019 Papillary thyroid carcinoma Cardiac arrest Acute respiratory failure with hypoxia Encounters Date Type Department Care Team Description 07/26/2022 Hospital Encounter Cardiopulmonary Megan Kapadia Khushboo ramirezic congestive cardiomyopathy; 10:36 AM Richelle Jorge MD Heart failure with reduced e jection fraction CDT - [address] Discharge Disposition: Home 07/26/2022 Main [facility], 6th Floor 11:59 [place] [address] 07/26/2022 Hospital Encounter Diagnostic Laboratory Kang David jorge Nonischemic congestive cardiomyopathy; 10:00 AM Richelle Jorge MD Heart failure with reduced e jection fraction CDT - [address] Discharge Disposition: Home 07/26/2022 Main [facility], Elevator A 10:35 [place] [address] CD 07/26/2022 Travel 07/15/2022 Hospital Encounter Cardiopulmonary Megan Kapadia Khushboo schemic congestive cardiomyopathy; 2:23 PM Richelle Jorge MD Heart failure with reduced e jection fraction CDT - [address] Discharge Disposition: Home 07/15/2022 Main [facility], 6th Floor 11:59 [place] [address] 07/15/2022 Follow-Up Cardiopulmonary KangDavida Nonischemi c congestive cardiomyopathy; 1:20 PM Richelle Jorge MD Heart failure with reduced e jection fraction CDT [address] Main [facility], 6th [place] [address] 07/15/2022 Travel 05/02/2022 Telephone Endocrine Center [place], [address] FARZAD Harper Main Ties[place], 6th [place] [address] 05/02/2022 Telephone Endocrine Center [facility] [address] FARZAD Harper Main Bldg, 6th [place] [address] 04/30/2022 Documentation Cardiopulmonary Shereen Colmenares, Center RN [address] Main Bldg, 6th [place] [address] 04/18/2022 Orders Only Endocrine Center Kamla, Papillary thyroid [address] Inge Mahmood MD carcinoma (Primary Main Bldg, 6th Floor Dx) [place] [address] 04/12/[address] IMAGING Seth Lolita, Malignant neoplasm of thyroi d gland 12:25 PM Kimberly Lazo MD Discharge Disposition: Home [employer] - Main Bldg, 3rd Floor 04/12/2022 Elevator A 11:59 PM [place] [id number] [facility] [phone] 04/12/2022 Travel 04/05/2022 Ancillary Procedure Image Library Seth Lolita, Cancer 8:00 [place] [address] 04/02/2022 Orders Only Cardiopulmonary FranciscoDafne Nonischemi c congestive cardiomyopathy (Primary Dx); Center PA Heart failure with reduced e jection fraction [address] Main Bldg, 6th [place] [address] 04/02/2022 Orders Only Endocrine Center Ry Noe Type 2 diabetes [address], [employer] mellitus with Main Bldg, 6th Floor hyperglycemia Elevator A (Primary Dx) [place] [phone] 03/29/2022 Travel 03/25/2022 Travel 03/24/2022 Hospital Encounter MAIN 21NE Paola Dill Pyelonephritis (Primary Dx); 10:44 PM Kimberly Moore MD Hyperglycemia due to type 2 diabetes yuly litus; [employer] - Bud Gallagher, Hypokalemia; 04/02/2022 [place] [address] Papillary thyroid carcinoma; 2:05 PM [phone] Matthias Olmstead, 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 and neck lymph node; [employer] Acute respiratory failure with hypoxia; Pablo, Cardiac arrest, not otherwise specified; Idania Givens, Encounter fo r adjustment and management of vascular access device; Acute congestive heart failure; Renard Carpenter, Stress induce d cardiomyopathy; Satya Lambert MD Type 2 diabetes mellitus with hyperglycemia Discharge Dispo sition: Home 03/24/2022 Travel 03/14/2022 Ancillary Procedure [facility] MRI SapnaLolita wadsworth, Malignant neoplasm 4:15 PM [facility] [address] of thyroid gland [facility], 4th [place] [address] 03/14/2022 Travel 03/13/2022 Clinical Support [facility] Seth Lolita, Vergara spected COVID-19 2:45 PM - [facility] (Primary Dx) [address] Oziel [facility], 8th [place], [place] Floor Elevator T [place] [address] 03/13/2022 Ancillary Procedure Neuro-Interventional Lolita Ann, Malignant neoplasm 12:45 PM Ultrasound of thyroid gland [facility] [address] [place] [address], 6th [place] [address] 03/13/2022 Hospital Encounter Diagnostic Laboratory Seth Lolita, Malignant neoplasm of thyroid gland 11:45 AM [place] MD Discharge Disposition: Home [facility] - [address] [facility] 03/13/2022 Main [facility], Elevator A 11:59 [place] [address] [facility] 03/13/2022 Office Visit Endocrine Center Lolita Ann, Papillary thyroid carcinoma (Primary Dx); 10:45 AM [facility] [place] Lazo MD Postoperative hypothyroidism ; [facility] Main [facility], 6th Floor Pulmonary nodules; Elevator A 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 and neck lymph node; [place] [address] Claustrophobia [phone] 03/13/2022 Travel 03/12/2022 NPR MDA PATIENT ACCESS Lolita Ann, 2:00 PM [employer] 03/01/2022 Lab Requisition [facility] Gary Simon MD Disposition: Home Lindy Swanson MD 02/22/2022 Ancillary Procedure Image Library Lolita Ann, Cancer 8:10 PM [address] [place] [address] 02/22/2022 Ancillary Procedure Image Library Lolita Ann, Cancer 8:05 PM [address] [place] [address] 02/22/2022 Ancillary Procedure Image Library Lolita Ann, Cancer 8:00 PM [address] [place] [place] [address] 02/22/2022 Lab Requisition [facility] Gary Simon MD Disposition: Home [place], Slim Springer MD 02/07/2022 Orders Only Endocrine Center Lolita Ann, Malignant neoplasm [address] Lazo MD of thyroid gland Main Bldg, 6th Floor (Primary Dx) [place] [address] after 01/01/2022 Surgical History Surgery Date Site/Laterality Comments CATARACT [...] onally as reported by patient. alcohol) Sex and Gender Information Value Date Recorded Sex Assigned at Female 03/12/2022 1:41 PM [employer] Gender Identity Female 03/12/2022 1:[address] Sexual Orientation Not on file Job Start Date Occupation Industry Not on [...] 151.5 cm (4' 11.65") 03/29/2022 6:51 PM [employer] Body Mass Index 19.98 03/29/2022 6:51 PM [employer] Plan of Treatment Date Type Department Care Team Description 01/29/2023 1:00 Appointment Diagnostic Lolita Ann MD PM [employer] Laboratory Center [address] [place] [address] [facility] [phone] [place] [address] (Work) 01/29/2023 2:15 Ancillary Procedure Neuro-Interventional Christelle Ann MD PM [employer] Ultrasound [address] [place] [address] [facility], 6th [phone] Floor ([place]) [place] [address] 01/30/2023 7:15 Ancillary Procedure [facility] MRI Lolita Ann MD AM [employer] [address] [facility], 4th [place], [place] [address] Floor [phone] Elevator T (Work) [place] [address] [phone] 01/30/2023 9:[address] Imaging Lolita Ann MD AM [employer] [address] [facility], 7th [place], [place] [address] Floor [phone] Elevator T (Work) [place] [address] [phone] 01/30/2023 Follow-Up Endocrine Center Lolita Ann MD 12:45 PM [employer] [address] Main Bldg, 6th [place] [address] Elevator A [phone] [place] [address] (Work) [phone] Health Maintenance Due Date Last Done Comments COVID-19 Vaccination ( season) 10/25/20222020, 07/21/2020 Procedures Procedure Name Priority Date/Time Associated [...] with section. reduced ejection fraction CALCIUM LEVEL Routine 07/26/2022 10:26 Nonischemic Results fo [...] Heart failure with section. reduced ejection fraction DIFFERENTIAL Routine 07/26/2022 10:26 Nonischemic Results for this AM CDT congestive procedure are i n cardiomyopathy the results Heart failure with section. reduced ejection fraction .CBC Routine 07/26/2022 10:26 Nonischemic Results for this [...] 2:09 Malignant neoplasm Results for this PM [employer] of thyroid gland procedure a re in the results section. CT SOFT TISSUE NECK W Routine 04/12/2022 2:09 Malignant neopla sm Results for this CONTRAST PM [employer] of thyroid gland procedure a re in the results section. POC GLUCOSE SCREEN Routine 04/02/2022 8:17 Result s for this AM [employer] procedure are i n the results section. DIFFERENTIAL AM 04/02/2022 7:05 Results for this AM [employer] procedure are i n the results section. .CBC AM 04/02/2022 7:05 Results for this AM [employer] procedure are i n the results section. .GLOMERULAR FILTRATION AM 04/02/2022 7:05 Re sults for this RATE AM [employer] procedure are i n the results section. SERUM CREATININE AM 04/02/2022 7:05 Results for this AM [employer] procedure are i n the results section. ELECTROLYTE PANEL AM 04/02/2022 7:05 Results for this AM [employer] procedure are i n the results section. BLOOD UREA NITROGEN AM 04/02/2022 7:05 Resul ts for this AM [employer] procedure are i n the results section. GLUCOSE LEVEL AM 04/02/2022 7:05 Results for this AM [employer] procedure are i n the results section. FRACTIONATED BILIRUBIN AM 04/02/2022 7:05 Re sults for this AM [employer] procedure are i n the results section. TOTAL PROTEIN AM 04/02/2022 7:05 Results for this AM [employer] procedure are i n the results section. ASPARTATE AM 04/02/2022 7:05 Results for this AMINOTRANSFERASE AM [employer] procedure a re in the results section. ALANINE AM 04/02/2022 7:05 Results for this AMINOTRANSFERASE AM [employer] procedure a re in the results section. ALKALINE PHOSPHATASE AM 04/02/2022 7:05 Resu lts for this AM [employer] procedure are i n the results section. ALBUMIN LEVEL AM 04/02/2022 7:05 Results for this AM [employer] procedure are i n the results section. PHOSPHORUS LEVEL AM 04/02/2022 7:05 Results for this AM [employer] procedure are i n the results section. BASIC METABOLIC PANEL, AM 04/02/2022 7:05 CALCIUM IONIZED AM [employer] MAGNESIUM LEVEL AM 04/02/2022 7:05 Results f or this AM [employer] procedure are i n the results section. COMPLETE BLOOD COUNT W/ AM 04/02/2022 7:05 DIFFERENTIAL AM [employer] HEPATIC FUNCTION PANEL AM 04/02/2022 7:05 AM [employer] PROTHROMBIN TIME AM 04/02/2022 7:05 Results for this AM [employer] procedure are i n the results section. CALCIUM IONIZED, VENOUS AM 04/02/2022 7:01 R esults for this AM [employer] procedure are i n the results section. POC GLUCOSE SCREEN Routine 04/01/2022 10:20 Resul ts for this PM [employer] procedure are i n the results section. POC GLUCOSE SCREEN Routine 04/01/2022 5:38 Result s for this PM [employer] procedure are i n the results section. GENERAL LABORATORY ADD Routine 04/01/2022 4:14 Re sults for this ON TEST PM [employer] procedure are i n the results section. POC GLUCOSE SCREEN Routine 04/01/2022 12:18 Resul ts for this PM [employer] procedure are i n the results section. POC GLUCOSE SCREEN Routine 04/01/2022 10:39 Resul ts for this AM [employer] procedure are i n the results section. POC GLUCOSE SCREEN Routine 04/01/2022 9:12 Result s for this AM [employer] procedure are i n the results section. HEMOGLOBIN A1C AM 04/01/2022 8:09 Results fo r this AM [employer] procedure are i n the results section. TMP INTERPRETATION Routine 04/01/2022 8:09 Result s for this ANTIBODY SCREEN AM [employer] procedure ar e in NEGATIVE the results section. CLOT EXPIRATION DATE Routine 04/01/2022 8:09 Resu lts for this AM [employer] procedure are i n the results section. ANTIBODY SCREEN Routine 04/01/2022 8:09 Results f or this AM [employer] procedure are i n the results section. ABORH Routine 04/01/2022 8:09 Results for this AM [employer] procedure are i n the results section. CALCIUM IONIZED, VENOUS AM 04/01/2022 8:09 R esults for this AM [employer] procedure are i n the results section. DIFFERENTIAL AM 04/01/2022 8:09 Results for this AM [employer] procedure are i n the results section. .CBC AM 04/01/2022 8:09 Results for this AM [employer] procedure are i n the results section. .GLOMERULAR FILTRATION AM 04/01/2022 8:09 Re sults for this RATE AM [employer] procedure are i n the results section. SERUM CREATININE AM 04/01/2022 8:09 Results for this AM [employer] procedure are i n the results section. ELECTROLYTE PANEL AM 04/01/2022 8:09 Results for this AM [employer] procedure are i n the results section. BLOOD UREA NITROGEN AM 04/01/2022 8:09 Resul ts for this AM [employer] procedure are i n the results section. GLUCOSE LEVEL AM 04/01/2022 8:09 Results for this AM [employer] procedure are i n the results section. FRACTIONATED BILIRUBIN AM 04/01/2022 8:09 Re sults for this AM [employer] procedure are i n the results section. TOTAL PROTEIN AM 04/01/2022 8:09 Results for this AM [employer] procedure are i n the results section. ASPARTATE AM 04/01/2022 8:09 Results for this AMINOTRANSFERASE AM [employer] procedure a re in the results section. ALANINE AM 04/01/2022 8:09 Results for this AMINOTRANSFERASE AM [employer] procedure a re in the results section. ALKALINE PHOSPHATASE AM 04/01/2022 8:09 Resu lts for this AM [employer] procedure are i n the results section. ALBUMIN LEVEL AM 04/01/2022 8:09 Results for this AM [employer] procedure are i n the results section. TYPE AND SCREEN Routine 04/01/2022 8:09 AM [employer] PHOSPHORUS LEVEL AM 04/01/2022 8:09 Results for this AM [employer] procedure are i n the results section. BASIC METABOLIC PANEL, AM 04/01/2022 8:09 CALCIUM IONIZED AM [employer] MAGNESIUM LEVEL AM 04/01/2022 8:09 Results f or this AM [employer] procedure are i n the results section. COMPLETE BLOOD COUNT W/ AM 04/01/2022 8:09 DIFFERENTIAL AM [employer] HEPATIC FUNCTION PANEL AM 04/01/2022 8:09 AM [employer] PROTHROMBIN TIME AM 04/01/2022 8:09 Results for this AM [employer] procedure are i n the results section. OSCILLATORY PEP Routine 04/01/2022 8:00 AM [employer] POC GLUCOSE SCREEN Routine 03/31/2022 9:10 Result s for this PM [employer] procedure are i n the results section. OSCILLATORY PEP Routine 03/31/2022 8:00 PM [employer] POC GLUCOSE SCREEN Routine 03/31/2022 5:54 Result s for this PM [employer] procedure are i n the results section. OSCILLATORY PEP Routine 03/31/2022 2:01 PM [employer] POC GLUCOSE SCREEN Routine 03/31/2022 1:18 Result s for this PM [employer] procedure are i n the results section. OSCILLATORY PEP Routine 03/31/2022 9:26 AM [employer] OSCILLATORY PEP Routine 03/31/2022 9:26 AM [employer] OSCILLATORY PEP Routine 03/31/2022 9:26 AM [employer] POC GLUCOSE SCREEN Routine 03/31/2022 8:53 Result s for this AM [employer] procedure are i n the results section. CALCIUM IONIZED, VENOUS AM 03/31/2022 6:16 R esults for this AM [employer] procedure are i n the results section. DIFFERENTIAL AM 03/31/2022 6:16 Results for this AM [employer] procedure are i n the results section. .CBC AM 03/31/2022 6:16 Results for this AM [employer] procedure are i n the results section. .GLOMERULAR FILTRATION AM 03/31/2022 6:16 Re sults for this RATE AM [employer] procedure are i n the results section. SERUM CREATININE AM 03/31/2022 6:16 Results for this AM [employer] procedure are i n the results section. ELECTROLYTE PANEL AM 03/31/2022 6:16 Results for this AM [employer] procedure are i n the results section. BLOOD UREA NITROGEN AM 03/31/2022 6:16 Resul ts for this AM [employer] procedure are i n the results section. GLUCOSE LEVEL AM 03/31/2022 6:16 Results for this AM [employer] procedure are i n the results section. FRACTIONATED BILIRUBIN AM 03/31/2022 6:16 Re sults for this AM [employer] procedure are i n the results section. TOTAL PROTEIN AM 03/31/2022 6:16 Results for this AM [employer] procedure are i n the results section. ASPARTATE AM 03/31/2022 6:16 Results for this AMINOTRANSFERASE AM [employer] procedure a re in the results section. ALANINE AM 03/31/2022 6:16 Results for this AMINOTRANSFERASE AM [employer] procedure a re in the results section. ALKALINE PHOSPHATASE AM 03/31/2022 6:16 Resu lts for this AM [employer] procedure are i n the results section. ALBUMIN LEVEL AM 03/31/2022 6:16 Results for this AM [employer] procedure are i n the results section. PHOSPHORUS LEVEL AM 03/31/2022 6:16 Results for this AM [employer] procedure are i n the results section. BASIC METABOLIC PANEL, AM 03/31/2022 6:16 CALCIUM IONIZED AM [employer] MAGNESIUM LEVEL AM 03/31/2022 6:16 Results f or this AM [employer] procedure are i n the results section. COMPLETE BLOOD COUNT W/ AM 03/31/2022 6:16 DIFFERENTIAL AM [employer] HEPATIC FUNCTION PANEL AM 03/31/2022 6:16 AM [employer] PROTHROMBIN TIME AM 03/31/2022 6:16 Results for this AM [employer] procedure are i n the results section. POC GLUCOSE SCREEN Routine 03/30/2022 10:42 Resul ts for this PM [employer] procedure are i n the results section. POC GLUCOSE SCREEN Routine 03/30/2022 8:03 Result s for this PM [employer] procedure are i n the results section. POC GLUCOSE SCREEN Routine 03/30/2022 6:00 Result s for this PM [employer] procedure are i n the results section. PICC/NON-TUNNELED CVAD Routine 03/30/2022 1:37 Encounter for R esults for this REMOVAL PM [employer] adjustment and procedure are in management of the results vascular access section. device POC GLUCOSE SCREEN Routine 03/30/2022 1:33 Result s for this PM [employer] procedure are i n the results section. POC GLUCOSE SCREEN Routine 03/30/2022 1:30 Result s for this PM [employer] procedure are i n the results section. POC CRITICAL Routine 03/30/2022 1:30 Results for this PM [employer] procedure are i n the results section. POC GLUCOSE SCREEN Routine 03/30/2022 9:59 Result s for this AM [employer] procedure are i n the results section. OSCILLATORY PEP Routine 03/30/2022 8:00 AM [employer] FRACTIONATED BILIRUBIN Routine 03/30/2022 7:36 Re sults for this AM [employer] procedure are i n the results section. TOTAL PROTEIN Routine 03/30/2022 7:36 Results for this AM [employer] procedure are i n the results section. ASPARTATE Routine 03/30/2022 7:36 Results for this AMINOTRANSFERASE AM [employer] procedure a re in the results section. ALANINE Routine 03/30/2022 7:36 Results for this AMINOTRANSFERASE AM [employer] procedure a re in the results section. ALKALINE PHOSPHATASE Routine 03/30/2022 7:36 Resu lts for this AM [employer] procedure are i n the results section. ALBUMIN LEVEL Routine 03/30/2022 7:36 Results for this AM [employer] procedure are i n the results section. DIFFERENTIAL AM 03/30/2022 7:36 Results for this AM [employer] procedure are i n the results section. .CBC AM 03/30/2022 7:36 Results for this AM [employer] procedure are i n the results section. CALCIUM IONIZED, VENOUS Routine 03/30/2022 7:36 R esults for this AM [employer] procedure are i n the results section. .GLOMERULAR FILTRATION Routine 03/30/2022 7:36 Re sults for this RATE AM [employer] procedure are i n the results section. SERUM CREATININE Routine 03/30/2022 7:36 Results for this AM [employer] procedure are i n the results section. ELECTROLYTE PANEL Routine 03/30/2022 7:36 Results for this AM [employer] procedure are i n the results section. BLOOD UREA NITROGEN Routine 03/30/2022 7:36 Resul ts for this AM [employer] procedure are i n the results section. GLUCOSE LEVEL Routine 03/30/2022 7:36 Results for this AM [employer] procedure are i n the results section. COMPLETE BLOOD COUNT W/ AM 03/30/2022 7:36 DIFFERENTIAL AM [employer] APTT AM 03/30/2022 7:36 Results for this AM [employer] procedure are i n the results section. PROTHROMBIN TIME AM 03/30/2022 7:36 Results for this AM [employer] procedure are i n the results section. MAGNESIUM LEVEL Routine 03/30/2022 7:36 Results f or this AM [employer] procedure are i n the results section. PHOSPHORUS LEVEL Routine 03/30/2022 7:36 Results for this AM [employer] procedure are i n the results section. BASIC METABOLIC PANEL, Routine 03/30/2022 7:36 CALCIUM IONIZED AM [employer] POC GLUCOSE SCREEN Routine 03/30/2022 5:52 Result s for this AM [employer] procedure are i n the results section. POC GLUCOSE SCREEN Routine 03/29/2022 10:16 Resul ts for this PM [employer] procedure are i n the results section. OSCILLATORY PEP Routine 03/29/2022 8:00 PM [employer] CALCIUM IONIZED, VENOUS Routine 03/29/2022 5:38 R esults for this PM [employer] procedure are i n the results section. .GLOMERULAR FILTRATION Routine 03/29/2022 5:38 Re sults for this RATE PM [employer] procedure are i n the results section. SERUM CREATININE Routine 03/29/2022 5:38 Results for this PM [employer] procedure are i n the results section. ELECTROLYTE PANEL Routine 03/29/2022 5:38 Results for this PM [employer] procedure are i n the results section. BLOOD UREA NITROGEN Routine 03/29/2022 5:38 Resul ts for this PM [employer] procedure are i n the results section. GLUCOSE LEVEL Routine 03/29/2022 5:38 Results for this PM [employer] procedure are i n the results section. MAGNESIUM LEVEL Routine 03/29/2022 5:38 Results f or this PM [employer] procedure are i n the results section. PHOSPHORUS LEVEL Routine 03/29/2022 5:38 Results for this PM [employer] procedure are i n the results section. BASIC METABOLIC PANEL, Routine 03/29/2022 5:38 CALCIUM IONIZED PM [employer] POC GLUCOSE SCREEN Routine 03/29/2022 5:21 Result s for this PM [employer] procedure are i n the results section. OSCILLATORY PEP Routine 03/29/2022 4:00 PM [employer] OSCILLATORY PEP Routine 03/29/2022 12:00 PM [employer] POC GLUCOSE SCREEN Routine 03/29/2022 11:15 Resul ts for this AM [employer] procedure are i n the results section. CLOT EXPIRATION DATE Routine 03/29/2022 10:16 Res ults for this AM [employer] procedure are i n the results section. TMP INTERPRETATION Routine 03/29/2022 10:16 Resul ts for this ANTIBODY SCREEN AM [employer] procedure ar e in NEGATIVE the results section. CALCIUM IONIZED, VENOUS Routine 03/29/2022 10:16 Results for this AM [employer] procedure are i n the results section. .GLOMERULAR FILTRATION Routine 03/29/2022 10:16 R esults for this RATE AM [employer] procedure are i n the results section. SERUM CREATININE Routine 03/29/2022 10:16 Results for this AM [employer] procedure are i n the results section. ELECTROLYTE PANEL Routine 03/29/2022 10:16 Result s for this AM [employer] procedure are i n the results section. BLOOD UREA NITROGEN Routine 03/29/2022 10:16 Resu lts for this AM [employer] procedure are i n the results section. GLUCOSE LEVEL Routine 03/29/2022 10:16 Results fo r this AM [employer] procedure are i n the results section. ANTIBODY SCREEN Routine 03/29/2022 10:16 Results for this AM [employer] procedure are i n the results section. ABORH Routine 03/29/2022 10:16 Results for this AM [employer] procedure are i n the results section. MAGNESIUM LEVEL Routine 03/29/2022 10:16 Results for this AM [employer] procedure are i n the results section. PHOSPHORUS LEVEL Routine 03/29/2022 10:16 Results for this AM [employer] procedure are i n the results section. LACTIC ACID, VENOUS Routine 03/29/2022 10:16 Resu lts for this AM [employer] procedure are i n the results section. BASIC METABOLIC PANEL, Routine 03/29/2022 10:16 CALCIUM IONIZED AM [employer] BLOOD GAS ARTERIAL Routine 03/29/2022 10:16 Resul ts for this AM [employer] procedure are i n the results section. TYPE AND SCREEN Routine 03/29/2022 10:16 AM [employer] POC GLUCOSE SCREEN Routine 03/29/2022 8:07 Result s for this AM [employer] procedure are i n the results section. OSCILLATORY PEP Routine 03/29/2022 8:00 AM [employer] POC GLUCOSE SCREEN Routine 03/29/2022 5:16 Result s for this AM [employer] procedure are i n the results section. XR CHEST 1 VW PORTABLE Routine 03/29/2022 1:42 Re sults for this AM [employer] procedure are i n the results section. DIFFERENTIAL STAT 03/29/2022 12:44 Results for this AM [employer] procedure are i n the results section. .CBC STAT 03/29/2022 12:44 Results for this AM [employer] procedure are i n the results section. FRACTIONATED BILIRUBIN AM 03/29/2022 12:44 R esults for this AM [employer] procedure are i n the results section. TOTAL PROTEIN AM 03/29/2022 12:44 Results fo r this AM [employer] procedure are i n the results section. ASPARTATE AM 03/29/2022 12:44 Results for this AMINOTRANSFERASE AM [employer] procedure a re in the results section. ALANINE AM 03/29/2022 12:44 Results for this AMINOTRANSFERASE AM [employer] procedure a re in the results section. ALKALINE PHOSPHATASE AM 03/29/2022 12:44 Res ults for this AM [employer] procedure are i n the results section. ALBUMIN LEVEL AM 03/29/2022 12:44 Results fo r this AM [employer] procedure are i n the results section. CALCIUM IONIZED, VENOUS Routine 03/29/2022 12:44 Results for this AM [employer] procedure are i n the results section. .GLOMERULAR FILTRATION Routine 03/29/2022 12:44 R esults for this RATE AM [employer] procedure are i n the results section. SERUM CREATININE Routine 03/29/2022 12:44 Results for this AM [employer] procedure are i n the results section. ELECTROLYTE PANEL Routine 03/29/2022 12:44 Result s for this AM [employer] procedure are i n the results section. BLOOD UREA NITROGEN Routine 03/29/2022 12:44 Resu lts for this AM [employer] procedure are i n the results section. GLUCOSE LEVEL Routine 03/29/2022 12:44 Results fo r this AM [employer] procedure are i n the results section. COMPLETE BLOOD COUNT W/ AM 03/29/2022 12:44 DIFFERENTIAL AM [employer] HEPATIC FUNCTION PANEL AM 03/29/2022 12:44 AM [employer] APTT AM 03/29/2022 12:44 Results for this AM [employer] procedure are i n the results section. PROTHROMBIN TIME AM 03/29/2022 12:44 Results for this AM [employer] procedure are i n the results section. MAGNESIUM LEVEL Routine 03/29/2022 12:44 Results for this AM [employer] procedure are i n the results section. PHOSPHORUS LEVEL Routine 03/29/2022 12:44 Results for this AM [employer] procedure are i n the results section. LACTIC ACID, VENOUS Routine 03/29/2022 12:44 Resu lts for this AM [employer] procedure are i n the results section. BASIC METABOLIC PANEL, Routine 03/29/2022 12:44 CALCIUM IONIZED AM [employer] BLOOD GAS ARTERIAL Routine 03/29/2022 12:44 Resul ts for this AM [employer] procedure are i n the results section. POC GLUCOSE SCREEN Routine 03/28/2022 11:26 Resul ts for this PM [employer] procedure are i n the results section. POC GLUCOSE SCREEN Routine 03/28/2022 8:13 Result s for this PM [employer] procedure are i n the results section. OSCILLATORY PEP Routine 03/28/2022 8:00 PM [employer] CALCIUM IONIZED, VENOUS Routine 03/28/2022 5:44 R esults for this PM [employer] procedure are i n the results section. .GLOMERULAR FILTRATION Routine 03/28/2022 5:44 Re sults for this RATE PM [employer] procedure are i n the results section. SERUM CREATININE Routine 03/28/2022 5:44 Results for this PM [employer] procedure are i n the results section. ELECTROLYTE PANEL Routine 03/28/2022 5:44 Results for this PM [employer] procedure are i n the results section. BLOOD UREA NITROGEN Routine 03/28/2022 5:44 Resul ts for this PM [employer] procedure are i n the results section. GLUCOSE LEVEL Routine 03/28/2022 5:44 Results for this PM [employer] procedure are i n the results section. MAGNESIUM LEVEL Routine 03/28/2022 5:44 Results f or this PM [employer] procedure are i n the results section. PHOSPHORUS LEVEL Routine 03/28/2022 5:44 Results for this PM [employer] procedure are i n the results section. LACTIC ACID, VENOUS Routine 03/28/2022 5:44 Resul ts for this PM [employer] procedure are i n the results section. BASIC METABOLIC PANEL, Routine 03/28/2022 5:44 CALCIUM IONIZED PM [employer] BLOOD GAS ARTERIAL Routine 03/28/2022 5:44 Result s for this PM [employer] procedure are i n the results section. POC GLUCOSE SCREEN Routine 03/28/2022 4:56 Result s for this PM [employer] procedure are i n the results section. OSCILLATORY PEP Routine 03/28/2022 4:00 PM [employer] OSCILLATORY PEP Routine 03/28/2022 2:07 PM [employer] OSCILLATORY PEP Routine 03/28/2022 2:07 PM [employer] OSCILLATORY PEP Routine 03/28/2022 2:07 PM [employer] OSCILLATORY PEP Routine 03/28/2022 2:07 PM [employer] BLOOD GAS ARTERIAL STAT 03/28/2022 11:50 Resul ts for this AM [employer] procedure are i n the results section. CALCIUM IONIZED, VENOUS STAT 03/28/2022 11:50 Results for this AM [employer] procedure are i n the results section. VANCOMYCIN LEVEL TROUGH Timed Study 03/28/2022 11:50 Results for this AM [employer] procedure are i n the results section. POC GLUCOSE SCREEN Routine 03/28/2022 11:43 Resul ts for this AM [employer] procedure are i n the results section. .GLOMERULAR FILTRATION Routine 03/28/2022 10:22 R esults for this RATE AM [employer] procedure are i n the results section. SERUM CREATININE Routine 03/28/2022 10:22 Results for this AM [employer] procedure are i n the results section. ELECTROLYTE PANEL Routine 03/28/2022 10:22 Result s for this AM [employer] procedure are i n the results section. BLOOD UREA NITROGEN Routine 03/28/2022 10:22 Resu lts for this AM [employer] procedure are i n the results section. GLUCOSE LEVEL Routine 03/28/2022 10:22 Results fo r this AM [employer] procedure are i n the results section. MAGNESIUM LEVEL Routine 03/28/2022 10:22 Results for this AM [employer] procedure are i n the results section. PHOSPHORUS LEVEL Routine 03/28/2022 10:22 Results for this AM [employer] procedure are i n the results section. BASIC METABOLIC PANEL, Routine 03/28/2022 10:22 CALCIUM IONIZED AM [employer] ECHOCARDIOGRAM 2D Routine 03/28/2022 8:20 Results for this LIMITED - FOLLOW UP AM [employer] procedur e are in the results section. POC GLUCOSE SCREEN Routine 03/28/2022 5:53 Result s for this AM [employer] procedure are i n the results section. XR CHEST 1 VW PORTABLE Routine 03/28/2022 2:30 Re sults for this AM [employer] procedure are i n the results section. DIFFERENTIAL AM 03/28/2022 12:48 Results for this AM [employer] procedure are i n the results section. .CBC STAT 03/28/2022 12:48 Results for this AM [employer] procedure are i n the results section. FRACTIONATED BILIRUBIN AM 03/28/2022 12:48 R esults for this AM [employer] procedure are i n the results section. TOTAL PROTEIN AM 03/28/2022 12:48 Results fo r this AM [employer] procedure are i n the results section. ASPARTATE AM 03/28/2022 12:48 Results for this AMINOTRANSFERASE AM [employer] procedure a re in the results section. ALANINE AM 03/28/2022 12:48 Results for this [employer] AM [employer] procedure a re in the results section. ALKALINE PHOSPHATASE AM 03/28/2022 12:48 Res ults for this AM [employer] procedure are i n the results section. ALBUMIN LEVEL AM 03/28/2022 12:48 Results fo r this AM [employer] procedure are i n the results section. CALCIUM IONIZED, VENOUS Routine 03/28/2022 12:48 Results for this AM [employer] procedure are i n the results section. .GLOMERULAR FILTRATION Routine 03/28/2022 12:48 R esults for this RATE AM [employer] procedure are i n the results section. SERUM CREATININE Routine 03/28/2022 12:48 Results for this AM [employer] procedure are i n the results section. ELECTROLYTE PANEL Routine 03/28/2022 12:48 Result s for this AM [employer] procedure are i n the results section. BLOOD UREA NITROGEN Routine 03/28/2022 12:48 Resu lts for this AM [employer] procedure are i n the results section. GLUCOSE LEVEL Routine 03/28/2022 12:48 Results fo r this AM [employer] procedure are i n the results section. COMPLETE BLOOD COUNT W/ AM 03/28/2022 12:48 DIFFERENTIAL AM [employer] HEPATIC FUNCTION PANEL AM 03/28/2022 12:48 AM [employer] APTT AM 03/28/2022 12:48 Results for this AM [employer] procedure are i n the results section. PROTHROMBIN TIME AM 03/28/2022 12:48 Results for this AM [employer] procedure are i n the results section. MAGNESIUM LEVEL Routine 03/28/2022 12:48 Results for this AM [employer] procedure are i n the results section. PHOSPHORUS LEVEL Routine 03/28/2022 12:48 Results for this AM [employer] procedure are i n the results section. LACTIC ACID, VENOUS Routine 03/28/2022 12:48 Resu lts for this AM [employer] procedure are i n the results section. BASIC METABOLIC PANEL, Routine 03/28/2022 12:48 CALCIUM IONIZED AM [employer] BLOOD GAS ARTERIAL Routine 03/28/2022 12:48 Resul ts for this AM [employer] procedure are i n the results section. POC GLUCOSE SCREEN Routine 03/27/2022 11:26 Resul ts for this PM [employer] procedure are i n the results section. POC GLUCOSE SCREEN Routine 03/27/2022 5:38 Result s for this PM [employer] procedure are i n the results section. CALCIUM IONIZED, VENOUS Routine 03/27/2022 5:36 R esults for this PM [employer] procedure are i n the results section. .GLOMERULAR FILTRATION Routine 03/27/2022 5:36 Re sults for this RATE PM [employer] procedure are i n the results section. SERUM CREATININE Routine 03/27/2022 5:36 Results for this PM [employer] procedure are i n the results section. ELECTROLYTE PANEL Routine 03/27/2022 5:36 Results for this PM [employer] procedure are i n the results section. BLOOD UREA NITROGEN Routine 03/27/2022 5:36 Resul ts for this PM [employer] procedure are i n the results section. GLUCOSE LEVEL Routine 03/27/2022 5:36 Results for this PM [employer] procedure are i n the results section. MAGNESIUM LEVEL Routine 03/27/2022 5:36 Results f or this PM [employer] procedure are i n the results section. PHOSPHORUS LEVEL Routine 03/27/2022 5:36 Results for this PM [employer] procedure are i n the results section. LACTIC ACID, VENOUS Routine 03/27/2022 5:36 Resul ts for this PM [employer] procedure are i n the results section. BASIC METABOLIC PANEL, Routine 03/27/2022 5:36 CALCIUM IONIZED PM [employer] BLOOD GAS ARTERIAL Routine 03/27/2022 5:36 Result s for this PM [employer] procedure are i n the results section. US RENAL STAT 03/27/2022 3:52 Results for this PM [employer] procedure are i n the results section. POC GLUCOSE SCREEN Routine 03/27/2022 11:47 Resul ts for this AM [employer] procedure are i n the results section. CALCIUM IONIZED, VENOUS Routine 03/27/2022 10:19 Results for this AM [employer] procedure are i n the results section. .GLOMERULAR FILTRATION Routine 03/27/2022 10:19 R esults for this RATE AM [employer] procedure are i n the results section. SERUM CREATININE Routine 03/27/2022 10:19 Results for this AM [employer] procedure are i n the results section. ELECTROLYTE PANEL Routine 03/27/2022 10:19 Result s for this AM [employer] procedure are i n the results section. BLOOD UREA NITROGEN Routine 03/27/2022 10:19 Resu lts for this AM [employer] procedure are i n the results section. GLUCOSE LEVEL Routine 03/27/2022 10:19 Results fo r this AM [employer] procedure are i n the results section. MAGNESIUM LEVEL Routine 03/27/2022 10:19 Results for this AM [employer] procedure are i n the results section. PHOSPHORUS LEVEL Routine 03/27/2022 10:19 Results for this AM [employer] procedure are i n the results section. LACTIC ACID, VENOUS Routine 03/27/2022 10:19 Resu lts for this AM [employer] procedure are i n the results section. BASIC METABOLIC PANEL, Routine 03/27/2022 10:19 CALCIUM IONIZED AM [employer] BLOOD GAS ARTERIAL Routine 03/27/2022 10:19 Resul ts for this AM [employer] procedure are i n the results section. BLOOD GAS ARTERIAL Timed Study 03/27/2022 8:32 Result s for this AM [employer] procedure are i n the results section. POC GLUCOSE SCREEN Routine 03/27/2022 7:27 Result s for this AM [employer] procedure are i n the results section. POC GLUCOSE SCREEN Routine 03/27/2022 5:52 Result s for this AM [employer] procedure are i n the results section. POC GLUCOSE SCREEN Routine 03/27/2022 4:58 Result s for this AM [employer] procedure are i n the results section. POC GLUCOSE SCREEN Routine 03/27/2022 4:06 Result s for this AM [employer] procedure are i n the results section. VANCOMYCIN LEVEL TROUGH Timed Study 03/27/2022 3:30 R esults for this AM [employer] procedure are i n the results section. POC GLUCOSE SCREEN Routine 03/27/2022 3:06 Result s for this AM [employer] procedure are i n the results section. XR CHEST 1 VW PORTABLE Routine 03/27/2022 2:50 Re sults for this AM [employer] procedure are i n the results section. DIFFERENTIAL STAT 03/27/2022 2:16 Results for this AM [employer] procedure are i n the results section. .CBC STAT 03/27/2022 2:16 Results for this AM [employer] procedure are i n the results section. COMPLETE BLOOD COUNT W/ AM 03/27/2022 2:16 DIFFERENTIAL AM [employer] POC GLUCOSE SCREEN Routine 03/27/2022 2:03 Result s for this AM [employer] procedure are i n the results section. FRACTIONATED BILIRUBIN AM 03/27/2022 1:36 Re sults for this AM [employer] procedure are i n the results section. TOTAL PROTEIN AM 03/27/2022 1:36 Results for this AM [employer] procedure are i n the results section. ASPARTATE AM 03/27/2022 1:36 Results for this AMINOTRANSFERASE AM [employer] procedure a re in the results section. ALANINE AM 03/27/2022 1:36 Results for this [employer]ASE AM [employer] procedure a re in the results section. ALKALINE PHOSPHATASE AM 03/27/2022 1:36 Resu lts for this AM [employer] procedure are i n the results section. ALBUMIN LEVEL AM 03/27/2022 1:36 Results for this AM [employer] procedure are i n the results section. CALCIUM IONIZED, VENOUS Routine 03/27/2022 1:36 R esults for this AM [employer] procedure are i n the results section. .GLOMERULAR FILTRATION Routine 03/27/2022 1:36 Re sults for this RATE AM [employer] procedure are i n the results section. SERUM CREATININE Routine 03/27/2022 1:36 Results for this AM [employer] procedure are i n the results section. ELECTROLYTE PANEL Routine 03/27/2022 1:36 Results for this AM [employer] procedure are i n the results section. BLOOD UREA NITROGEN Routine 03/27/2022 1:36 Resul ts for this AM [employer] procedure are i n the results section. GLUCOSE LEVEL Routine 03/27/2022 1:36 Results for this AM [employer] procedure are i n the results section. HEPATIC FUNCTION PANEL AM 03/27/2022 1:36 AM [employer] APTT AM 03/27/2022 1:36 Results for this AM [employer] procedure are i n the results section. PROTHROMBIN TIME AM 03/27/2022 1:36 Results for this AM [employer] procedure are i n the results section. MAGNESIUM LEVEL Routine 03/27/2022 1:36 Results f or this AM [employer] procedure are i n the results section. PHOSPHORUS LEVEL Routine 03/27/2022 1:36 Results for this AM [employer] procedure are i n the results section. LACTIC ACID, VENOUS Routine 03/27/2022 1:36 Resul ts for this AM [employer] procedure are i n the results section. BASIC METABOLIC PANEL, Routine 03/27/2022 1:36 CALCIUM IONIZED AM [employer] BLOOD GAS ARTERIAL Routine 03/27/2022 1:36 Result s for this AM [employer] procedure are i n the results section. CARDIAC PANEL Timed Study 03/27/2022 1:36 Results for this AM [employer] procedure are i n the results section. POC GLUCOSE SCREEN Routine 03/27/2022 1:03 Result s for this AM [employer] procedure are i n the results section. POC GLUCOSE SCREEN Routine 03/26/2022 11:49 Resul ts for this PM [employer] procedure are i n the results section. POC GLUCOSE SCREEN Routine 03/26/2022 10:33 Resul ts for this PM [employer] procedure are i n the results section. POC GLUCOSE SCREEN Routine 03/26/2022 9:30 Result s for this PM [employer] procedure are i n the results section. POC GLUCOSE SCREEN Routine 03/26/2022 8:33 Result s for this PM [employer] procedure are i n the results section. POC GLUCOSE SCREEN Routine 03/26/2022 7:33 Result s for this PM [employer] procedure are i n the results section. POC GLUCOSE SCREEN Routine 03/26/2022 6:35 Result s for this PM [employer] procedure are i n the results section. CALCIUM IONIZED, VENOUS Routine 03/26/2022 5:20 R esults for this PM [employer] procedure are i n the results section. .GLOMERULAR FILTRATION Routine 03/26/2022 5:20 Re sults for this RATE PM [employer] procedure are i n the results section. SERUM CREATININE Routine 03/26/2022 5:20 Results for this PM [employer] procedure are i n the results section. ELECTROLYTE PANEL Routine 03/26/2022 5:20 Results for this PM [employer] procedure are i n the results section. BLOOD UREA NITROGEN Routine 03/26/2022 5:20 Resul ts for this PM [employer] procedure are i n the results section. GLUCOSE LEVEL Routine 03/26/2022 5:20 Results for this PM [employer] procedure are i n the results section. MAGNESIUM LEVEL Routine 03/26/2022 5:20 Results f or this PM [employer] procedure are i n the results section. PHOSPHORUS LEVEL Routine 03/26/2022 5:20 Results for this PM [employer] procedure are i n the results section. LACTIC ACID, VENOUS Routine 03/26/2022 5:20 Resul ts for this PM [employer] procedure are i n the results section. BASIC METABOLIC PANEL, Routine 03/26/2022 5:20 CALCIUM IONIZED PM [employer] BLOOD GAS ARTERIAL Routine 03/26/2022 5:20 Result s for this PM [employer] procedure are i n the results section. POC GLUCOSE SCREEN Routine 03/26/2022 4:10 Result s for this PM [employer] procedure are i n the results section. BLOOD GAS ARTERIAL STAT 03/26/2022 3:50 Result s for this PM [employer] procedure are i n the results section. CARDIAC PANEL Timed Study 03/26/2022 3:50 Results for this PM [employer] procedure are i n the results section. POC GLUCOSE SCREEN Routine 03/26/2022 3:06 Result s for this PM [employer] procedure are i n the results section. POC GLUCOSE SCREEN Routine 03/26/2022 2:02 Result s for this PM [employer] procedure are i n the results section. LACTIC ACID, VENOUS STAT 03/26/2022 1:31 Resul ts for this PM [employer] procedure are i n the results section. PROCALCITONIN STAT 03/26/2022 1:31 Results for this PM [employer] procedure are i n the results section. C REACTIVE PROTEIN STAT 03/26/2022 1:31 Result s for this PM [employer] procedure are i n the results section. ANCA PANEL FOR STAT 03/26/2022 1:31 Results fo r this VASCULITIS SERUM PM [employer] procedure a re in the results section. SEDIMENTATION RATE STAT 03/26/2022 1:31 Result s for this NON-AUTOMATED PM [employer] procedure are in the results section. ANTINUCLEAR ANTIBODY STAT 03/26/2022 1:31 Resu lts for this HEP-2 SUBSTRATE IGG PM [employer] procedur e are in the results section. BLOOD CULTURE Routine 03/26/2022 1:31 Results for this PM [employer] procedure are i n the results section. BLOOD CULTURE Routine 03/26/2022 1:31 Results for this PM [employer] procedure are i n the results section. VANCOMYCIN LEVEL TROUGH Timed Study 03/26/2022 12:24 Results for this PM [employer] procedure are i n the results section. ECHOCARDIOGRAM 2D STAT 03/26/2022 12:19 Result s for this COMPLETE W CONTRAST PM [employer] procedur e are in the results section. PROCEDURE FOR CODING Routine 03/26/2022 11:37 Acute respirator y Results for this AM [employer] failure with procedure are i n hypoxia the results Cardiac arrest, section. not otherwise specified STREPTOCOCCAL URINE Routine 03/26/2022 11:23 Resu lts for this ANTIGEN PATH REVIEW AM [employer] procedur e are in the results section. LEGIONELLA URINE Routine 03/26/2022 11:23 Results for this ANTIGEN PATH REVIEW AM [employer] procedur e are in the results section. MRSA SCREENING CULTURE Routine 03/26/2022 11:23 R esults for this AM [employer] procedure are i n the results section. LEGIONELLA ANTIGEN, Routine 03/26/2022 11:23 Resu lts for this URINE AM [employer] procedure are i n the results section. STREPTOCOCCUS Routine 03/26/2022 11:23 Results fo r this PNEUMONIAE ANTIGEN, AM [employer] procedur e are in URINE the results section. POC GLUCOSE SCREEN Routine 03/26/2022 11:21 Resul ts for this AM [employer] procedure are i n the results section. APTT STAT 03/26/2022 11:01 Results for this AM [employer] procedure are i n the results section. FIBRINOGEN STAT 03/26/2022 11:01 Results for this AM [employer] procedure are i n the results section. PROTHROMBIN TIME STAT 03/26/2022 11:01 Results for this AM [employer] procedure are i n the results section. BLOOD GAS ARTERIAL STAT 03/26/2022 11:01 Resul ts for this AM [employer] procedure are i n the results section. HC ARTERIAL LINE FOR BP Routine 03/26/2022 10:45 Acute respira tory Results for this MON AM [employer] failure with procedure are i n hypoxia the results Cardiac arrest, section. not otherwise specified SD ARTL CATHJ/CANNULJ Routine 03/26/2022 10:45 Acute respirato ry Results for this MNTR/TRANSFUSION SPX AM [employer] failure with procedu re are in PRQ hypoxia the results Cardiac arrest, section. not otherwise specified XR CHEST 1 VW STAT 03/26/2022 10:27 Results fo r this AM [employer] procedure are i n the results section. CENTRAL MISC TEST Routine 03/26/2022 10:24 Results f or this AM [employer] procedure are i n the results section. BLOOD UREA NITROGEN STAT 03/26/2022 10:24 Resu lts for this AM [employer] procedure are i n the results section. CALCIUM IONIZED, VENOUS STAT 03/26/2022 10:24 Results for this AM [employer] procedure are i n the results section. .GLOMERULAR FILTRATION STAT 03/26/2022 10:24 R esults for this RATE AM [employer] procedure are i n the results section. SERUM CREATININE STAT 03/26/2022 10:24 Results for this AM [employer] procedure are i n the results section. ELECTROLYTE PANEL STAT 03/26/2022 10:24 Result s for this AM [employer] procedure are i n the results section. GLUCOSE LEVEL STAT 03/26/2022 10:24 Results fo r this AM [employer] procedure are i n the results section. NT PRO BNP Routine 03/26/2022 10:24 Results for this AM [employer] procedure are i n the results section. CARDIAC PANEL Timed Study 03/26/2022 10:24 Results fo r this AM [employer] procedure are i n the results section. PHOSPHORUS LEVEL STAT 03/26/2022 10:24 Results for this AM [employer] procedure are i n the results section. MAGNESIUM LEVEL STAT 03/26/2022 10:24 Results for this AM [employer] procedure are i n the results section. BASIC METABOLIC PANEL, STAT 03/26/2022 10:24 CALCIUM IONIZED AM [employer] LEGIONELLA CULTURE Routine 03/26/2022 10:17 Resul ts for this AM [employer] procedure are i n the results section. POC CHEM 8 Routine 03/26/2022 10:01 Results for this AM [employer] procedure are i n the results section. POC ARTERIAL BLOOD GAS Routine 03/26/2022 9:55 Re sults for this AM [employer] procedure are i n the results section. POC CRITICAL Routine 03/26/2022 9:55 Results for this AM [employer] procedure are i n the results section. AFB CULTURE W/ SMEAR Routine 03/26/2022 9:36 Resu lts for this AM [employer] procedure are i n the results section. FUNGUS CULTURE Routine 03/26/2022 9:36 Results fo r this AM [employer] procedure are i n the results section. LOWER RESPIRATORY Routine 03/26/2022 9:36 Results for this CULTURE W/ GRAM STAIN AM [employer] proced ure are in the results section. GENERAL LABORATORY ADD Routine 03/26/2022 9:23 Re sults for this ON TEST AM [employer] procedure are i n the results section. POC ARTERIAL BLOOD GAS Routine 03/26/2022 9:12 Re sults for this AM [employer] procedure are i n the results section. POC CRITICAL Routine 03/26/2022 9:12 Results for this AM [employer] procedure are i n the results section. POC CRITICAL Routine 03/26/2022 9:12 Results for this AM [employer] procedure are i n the results section. CT CHEST PULMONARY STAT 03/26/2022 8:42 Result s for this EMBOLISM W CONTRAST AM [employer] procedur e are in the results section. BLOOD GAS ARTERIAL Routine 03/26/2022 8:06 Result s for this AM [employer] procedure are i n the results section. BLOOD GAS ARTERIAL STAT 03/26/2022 5:33 Result s for this AM [employer] procedure are i n the results section. BLOOD GAS VENOUS STAT 03/26/2022 5:28 Results for this AM [employer] procedure are i n the results section. C-PEPTIDE AM 03/26/2022 12:25 Results for this AM [employer] procedure are i n the results section. CARDIAC PANEL AM 03/26/2022 12:25 Results fo r this AM [employer] procedure are i n the results section. NT PRO BNP AM 03/26/2022 12:25 Results for this AM [employer] procedure are i n the results section. DIFFERENTIAL AM 03/26/2022 12:25 Results for this AM [employer] procedure are i n the results section. .CBC AM 03/26/2022 12:25 Results for this AM [employer] procedure are i n the results section. CALCIUM LEVEL AM 03/26/2022 12:25 Results fo r this AM [employer] procedure are i n the results section. .GLOMERULAR FILTRATION AM 03/26/2022 12:25 R esults for this RATE AM [employer] procedure are i n the results section. SERUM CREATININE AM 03/26/2022 12:25 Results for this AM [employer] procedure are i n the results section. ELECTROLYTE PANEL AM 03/26/2022 12:25 Result s for this AM [employer] procedure are i n the results section. BLOOD UREA NITROGEN AM 03/26/2022 12:25 Resu lts for this AM [employer] procedure are i n the results section. GLUCOSE LEVEL AM 03/26/2022 12:25 Results fo r this AM [employer] procedure are i n the results section. LACTIC ACID, VENOUS STAT 03/26/2022 12:25 Resu lts for this AM [employer] procedure are i n the results section. PHOSPHORUS LEVEL AM 03/26/2022 12:25 Results for this AM [employer] procedure are i n the results section. MAGNESIUM LEVEL AM 03/26/2022 12:25 Results for this AM [employer] procedure are i n the results section. COMPLETE BLOOD COUNT W/ AM 03/26/2022 12:25 DIFFERENTIAL AM [employer] BASIC METABOLIC PANEL, AM 03/26/2022 12:25 CALCIUM TOTAL AM [employer] BLOOD CULTURE Routine 03/26/2022 12:25 Results fo r this AM [employer] procedure are i n the results section. XR CHEST 1 VW PORTABLE STAT 03/26/2022 12:01 R esults for this AM [employer] procedure are i n the results section. EKG, 12-LEAD (PORTABLE) STAT 03/26/2022 EKG, 12-LEAD (PORTABLE) STAT 03/26/2022 EKG, 12-LEAD (PORTABLE) STAT 03/26/2022 POC GLUCOSE SCREEN Routine 03/25/2022 10:09 Resul ts for this PM [employer] procedure are i n the results section. POC GLUCOSE SCREEN Routine 03/25/2022 7:07 Result s for this PM [employer] procedure are i n the results section. POC GLUCOSE SCREEN Routine 03/25/2022 3:46 Result s for this PM [employer] procedure are i n the results section. POC GLUCOSE SCREEN Routine 03/25/2022 2:05 Result s for this PM [employer] procedure are i n the results section. US RENAL STAT 03/25/2022 10:19 Results for this AM [employer] procedure are i n the results section. POC GLUCOSE SCREEN Routine 03/25/2022 9:08 Result s for this AM [employer] procedure are i n the results section. GENERAL LABORATORY ADD STAT 03/25/2022 7:20 Re sults for this ON TEST AM [employer] procedure are i n the results section. PHOSPHORUS LEVEL Routine 03/25/2022 4:45 Results for this AM [employer] procedure are i n the results section. MAGNESIUM LEVEL Routine 03/25/2022 4:45 Results f or this AM [employer] procedure are i n the results section. CALCIUM LEVEL Routine 03/25/2022 4:45 Results for this AM [employer] procedure are i n the results section. .GLOMERULAR FILTRATION Routine 03/25/2022 4:45 Re sults for this RATE AM [employer] procedure are i n the results section. SERUM CREATININE Routine 03/25/2022 4:45 Results for this AM [employer] procedure are i n the results section. ELECTROLYTE PANEL Routine 03/25/2022 4:45 Results for this AM [employer] procedure are i n the results section. BLOOD UREA NITROGEN Routine 03/25/2022 4:45 Resul ts for this AM [employer] procedure are i n the results section. GLUCOSE LEVEL Routine 03/25/2022 4:45 Results for this AM [employer] procedure are i n the results section. BASIC METABOLIC PANEL, Routine 03/25/2022 4:45 CALCIUM TOTAL AM [employer] POC GLUCOSE SCREEN Routine 03/25/2022 4:35 Result s for this AM [employer] procedure are i n the results section. POC ICON 20 URINE Routine 03/25/2022 1:24 Results for this TEST AM [employer] procedure are in the results section. URINALYSIS MICROSCOPIC Routine 03/25/2022 12:36 R esults for this EXAM AM [employer] procedure are i n the results section. URINALYSIS WITH Routine 03/25/2022 12:36 Results for this MICROSCOPIC IF AM [employer] procedure are in INDICATED the results section. URINE CULTURE STAT 03/25/2022 12:36 Results fo r this AM [employer] procedure are i n the results section. EKG, 12-LEAD (PORTABLE) Routine 03/25/2022 XR CHEST 1 VW STAT 03/24/2022 11:57 Results fo r this PM [employer] procedure are i n the results section. CONFIRM ABORH TYPE STAT 03/24/2022 11:29 Resul ts for this PM [employer] procedure are i n the results section. POC VENOUS BLOOD GAS + Routine 03/24/2022 11:18 R esults for this LACTATE PM [employer] procedure are i n the results section. CLOT EXPIRATION DATE STAT 03/24/2022 11:10 Res ults for this PM [employer] procedure are i n the results section. TMP INTERPRETATION STAT 03/24/2022 11:10 Resul ts for this ANTIBODY SCREEN PM [employer] procedure ar e in NEGATIVE the results section. ANTIBODY SCREEN STAT 03/24/2022 11:10 Results for this PM [employer] procedure are i n the results section. ABORH STAT 03/24/2022 11:10 Results for this PM [employer] procedure are i n the results section. FRACTIONATED BILIRUBIN STAT 03/24/2022 11:10 R esults for this PM [employer] procedure are i n the results section. TOTAL PROTEIN STAT 03/24/2022 11:10 Results fo r this PM [employer] procedure are i n the results section. ASPARTATE STAT 03/24/2022 11:10 Results for this AMINOTRANSFERASE PM [employer] procedure a re in the results section. ALANINE STAT 03/24/2022 11:10 Results for this AMINOTRANSFERASE PM [employer] procedure a re in the results section. ALKALINE PHOSPHATASE STAT 03/24/2022 11:10 Res ults for this PM [employer] procedure are i n the results section. ALBUMIN LEVEL STAT 03/24/2022 11:10 Results fo r this PM [employer] procedure are i n the results section. CALCIUM LEVEL STAT 03/24/2022 11:10 Results fo r this PM [employer] procedure are i n the results section. .GLOMERULAR FILTRATION STAT 03/24/2022 11:10 R esults for this RATE PM [employer] procedure are i n the results section. SERUM CREATININE STAT 03/24/2022 11:10 Results for this PM [employer] procedure are i n the results section. ELECTROLYTE PANEL STAT 03/24/2022 11:10 Result s for this PM [employer] procedure are i n the results section. BLOOD UREA NITROGEN STAT 03/24/2022 11:10 Resu lts for this PM [employer] procedure are i n the results section. GLUCOSE LEVEL STAT 03/24/2022 11:10 Results fo r this PM [employer] procedure are i n the results section. DIFFERENTIAL STAT 03/24/2022 11:10 Results for this PM [employer] procedure are i n the results section. .CBC STAT 03/24/2022 11:10 Results for this PM [employer] procedure are i n the results section. C REACTIVE PROTEIN Routine 03/24/2022 11:10 Resul ts for this PM [employer] procedure are i n the results section. LACTATE DEHYDROGENASE Routine 03/24/2022 11:10 Re sults for this PM [employer] procedure are i n the results section. FRACTIONATED BILIRUBIN Routine 03/24/2022 11:10 R esults for this PM [employer] procedure are i n the results section. PROCALCITONIN STAT 03/24/2022 11:10 Results fo r this PM [employer] procedure are i n the results section. TYPE AND SCREEN STAT 03/24/2022 11:10 PM [employer] APTT STAT 03/24/2022 11:10 Results for this PM [employer] procedure are i n the results section. PROTHROMBIN TIME STAT 03/24/2022 11:10 Results for this PM [employer] procedure are i n the results section. PHOSPHORUS LEVEL STAT 03/24/2022 11:10 Results for this PM [employer] procedure are i n the results section. MAGNESIUM LEVEL STAT 03/24/2022 11:10 Results for this PM [employer] procedure are i n the results section. COMPREHENSIVE METABOLIC STAT 03/24/2022 11:10 PANEL PM [employer] COMPLETE BLOOD COUNT W/ STAT 03/24/2022 11:10 DIFFERENTIAL PM [employer] RESPIRATORY MULTIPLEX Routine 03/24/2022 11:10 Re sults for this PCR PANEL, PM [employer] procedure are i n NASOPHARYNGEAL SWAB the resu lts section. BLOOD CULTURE STAT 03/24/2022 11:10 Results fo r this PM [employer] procedure are i n the results section. POC GLUCOSE SCREEN Routine 03/24/2022 10:44 Resul ts for this PM [employer] procedure are i n the results section. OSI CT ABDOMEN AND Routine 03/24/2022 4:15 Cancer Result s for this PELVIS PM [employer] procedure are i n the results section. MRI THORACIC SPINE W WO Routine 03/14/2022 6:31 Malignant neop lasm Results for this CONTRAST PM [employer] of thyroid gland procedure a re in the results section. COVID-19 (SARS-COV-2) Routine 03/13/2022 2:16 Suspected COVID- 19 Results for this PCR - ASYMPTOMATIC - MC PM [employer] proc edure are in the results section. US HEAD NECK SOFT Routine 03/13/2022 2:05 Malignant neoplasm R esults for this TISSUE PM [employer] of thyroid gland procedure a re in the results section. DIFFERENTIAL Routine 03/13/2022 12:30 Malignant neoplasm Resul ts for this PM [employer] of thyroid gland procedure a re in the results section. .CBC Routine 03/13/2022 12:30 Malignant neoplasm Resul ts for this PM [employer] of thyroid gland procedure a re in the results section. .GLOMERULAR FILTRATION Routine 03/13/2022 12:30 Malignant neop lasm Results for this RATE PM [employer] of thyroid gland procedure a re in the results section. SERUM CREATININE Routine 03/13/2022 12:30 Malignant neoplasm R esults for this PM [employer] of thyroid gland procedure a re in the results section. ELECTROLYTE PANEL Routine 03/13/2022 12:30 Malignant neoplasm Results for this PM [employer] of thyroid gland procedure a re in the results section. VITAMIN D 25 HYDROXY Routine 03/13/2022 12:30 Malignant neopla sm Results for this LEVEL PM [employer] of thyroid gland procedure a re in the results section. THYROID STIMULATING Routine 03/13/2022 12:30 Malignant neoplas m Results for this HORMONE PM [employer] of thyroid gland procedure a re in the results section. THYROGLOBULIN Routine 03/13/2022 12:30 Malignant neoplasm Resu lts for this PM [employer] of thyroid gland procedure a re in the results section. PHOSPHORUS LEVEL Routine 03/13/2022 12:30 Malignant neoplasm R esults for this PM [employer] of thyroid gland procedure a re in the results section. APTT Routine 03/13/2022 12:30 Malignant neoplasm Resul ts for this PM [employer] of thyroid gland procedure a re in the results section. PROTHROMBIN TIME Routine 03/13/2022 12:30 Malignant neoplasm R esults for this PM [employer] of thyroid gland procedure a re in the results section. PTH INTACT Routine 03/13/2022 12:30 Malignant neoplasm Resul ts for this PM [employer] of thyroid gland procedure a re in the results section. MAGNESIUM LEVEL Routine 03/13/2022 12:30 Malignant neoplasm Re sults for this PM [employer] of thyroid gland procedure a re in the results section. FREE THYROXINE Routine 03/13/2022 12:30 Malignant neoplasm Res ults for this PM [employer] of thyroid gland procedure a re in the results section. CREATININE Routine 03/13/2022 12:30 Malignant neoplasm PM [employer] of thyroid gland COMPLETE BLOOD COUNT W/ Routine 03/13/2022 12:30 Malignant linda plasm DIFFERENTIAL PM [employer] of thyroid gland CALCIUM LEVEL Routine 03/13/2022 12:30 Malignant neoplasm Resu lts for this PM [employer] of thyroid gland procedure a re in the results section. BLOOD UREA NITROGEN Routine 03/13/2022 12:30 Malignant neoplas m Results for this PM [employer] of thyroid gland procedure a re in the results section. ALBUMIN LEVEL Routine 03/13/2022 12:30 Malignant neoplasm Resu lts for this PM [employer] of thyroid gland procedure a re in the results section. HEPATITIS C VIRUS Routine 03/13/2022 12:30 Malignant neoplasm Results for this ANTIBODY PM [employer] of thyroid gland procedure a re in the results section. OSI US THYROID Routine 01/30/2022 1:11 Cancer Results fo r this PM [employer] procedure are i n the results section. after 01/01/2022 Results Echocardiogram 2D Complete (07/26/2022 11:17 AM [...] imaginD volumes were not performed in this [facility]. Cardiac Mechanics/Speckle Tracking Imagi ng: Abnormal [...] Normal = 100 Abnormal global longitudinal peak sy stolic value. X - Cannot 1 - Normal 2 - 3 - Akinetic 4 - Dyskinetic Interpret Hypokinetic 5 - Aneurysmal 3D imaginD volumes were not performed in this [facility]. Cardiac Mechanics/Speckle Tracking Imagi ng: Abnormal global [...] 2.4 cm LVOT diam: 2.0 cm EDV(MOD-A4C): 58. 8 ml ESV(MOD-A4C): 23.0 ml LVOT area: 3.0 cm2 EF(MOD-A4C): 60.9 % EDV(MOD-A2C): 65.3 ml ESV(MOD-A2C): 23.1 ml EDV(MOD-bp): 62 .3 ml EF(MOD-A2C): 64.7 % ESV(MOD-bp): 23 .2 ml EF(MOD-bp): 62.8 % LAV(MOD-A2C): 19.7 ml [...] cm/sec RAP systole: 3.0 mmHg NADE[place] Index (I,D ): 2.1 [place] Index (V,D): 2.1 Dimensionless I ndex: 0.96 E/e' (avg): 6.6 E/e' (lat): 5.1 E/e' (sept): 9.3 Megan Kapadia MD CV ECHO ORDERABLES Performing Organization Address City/State/ZIP Code Phon e Number ISCV (ABNORMAL) .Serum Creatinine (07/26/2022 10:26 AM CDT)Only the most recent of20 resultswithin the time period is included. athologist Signature Creatinine 0.35 (L) 0.51 - [place] [facility] 0.95 mg/dL [facility] Specimen Anatomical Collection Method Collection Time Receive d Time (Source) Location / / Volume Laterality Blood 07/26/2022 10:26 07/26/2022 AM CDT 10:35 AM CDT Megan Kapadia MD LAB BLOOD ORDERABLES Performing Organization Address City/State/ZIP Code Phon e Number [place] [facility] Unless otherwise noted, [place], [place] [address] CENTER all lab tests performed by: Division of Pathology and Laboratory Medicine [address] (ABNORMAL) .CBC (07/26/2022 10:26 AM CDT)Only the most recent of11 resultswithin the time period is included. Analysis Performed At Patho logist Time Signature WBC 5.9 4.0 - 11.0 [facility] K/uL DIAGNOSTIC CENTER RBC 4.94 4.00 - [facility] 5.50 M/uL DIAGNOSTIC CENTER Hgb 12.8 12.0 - [facility] 16.0 gm/dL DIAGNOSTIC CENTER Hct 39.1 37.0 - [facility] 47.0 % DIAGNOSTIC CENTER MCV 79 (L) 82 - 98 fL [facility] MCH 25.9 (L) 27.0 - [facility] 31.0 pg DIAGNOSTIC CENTER MCHC 32.7 31.0 - [facility] 36.0 gm/dL DIAGNOSTIC CENTER RDW-SD 38.0 35.1 - [facility] 46.3 fL DIAGNOSTIC CENTER RDW-CV 13.3 12.0 - [facility] 15.5 % DIAGNOSTIC CENTER Platelet count 361 140 - 440 [facility] K/uL DIAGNOSTIC CENTER MPV 9.6 4.0 - 10.4 [facility] fL DIAGNOSTIC CENTER INRBC 0.0 <=0.0 % [facility] Comment: The INRBC (instrument NRBC) [...] Organization Address City/State/ZIP Code Phon e Number [facility] DIAGNOSTIC Unless otherwise noted, [place], [place] [address] CENTER all lab tests performed by: Division of Pathology and Laboratory Medicine [facility] [place] Glomerular Filtration Rate (07/26/2022 10:26 AM CDT)Only the most recent of20 resultswithin the time period is included. P athologist Signature eGFR 145 >=60 [facility] mL/min/1.73 DIAGNOSTIC sq. m CENTER Comment: The eGFRcr is calculated with the 2021 C KD-EPI creatinine equation using creatinine, patient's age, [...] Organization Address City/State/ZIP Code Phon e Number [place] [facility] Unless otherwise noted, [address] all lab tests performed by: Division of Pathology and Laboratory Medicine [address] [facility] Fractionated Bilirubin (07/26/2022 10:26 AM CDT)Only the most recent of10 resultswithin the time period is included. athologist Signature Bili Total 0.3 <=1.2 mg/dL [place] [facility] Comment: Indocyanine Green (ICG) may cause falsel y elevated bilirubin results. Total and direct bilirubin must not be measured from samples containing indocyanine green. False elevation of total bilirubin can b e seen in patients with IgG concentrations above 28 g/L. Bili Direct <0.2 <=0.3 mg/dL [place] [facility] Comment: Indocyanine Green (ICG) may cau se falsely elevated bilirubin results. Total and direct bilirubin must not be measure d from samples containing indocyanine green. Bili Indirect See Note 0.0 - 0.9 mg/dL [place] [facility] Comment: Unable to calculate Indirect Bi lirubin result due to some parameters are outside reportable range Specimen Anatomical Collection Method Collection Time Receive d Time (Source) Location / / Volume Laterality Blood 07/26/2022 10:26 07/26/2022 AM CDT 10:35 AM CDT Megan Kapadia MD LAB BLOOD ORDERABLES Performing Organization Address City/[facility]/ZIP Code Phon e Number [facility] DIAGNOSTIC Unless otherwise noted, [place], [place] [address] CENTER all lab tests performed by: Division of Pathology and Laboratory Medicine [address] [facility] Cardiac Panel (07/26/2022 10:26 AM CDT)Only the most recent of5 resultswithin the time period is included. athologist Signature CK 55 26 - 192 [facility] U/L [facility] CENTER CK MB <2.0 <=5.3 ng/mL [facility] Troponin T <6 <=19 ng/L [facility] Comment: < 19 ng/L Suggest retest at [...] Organization Address City/State/ZIP Code Phon e Number [facility] CANCER Unless otherwise noted, [place] [address] [place] all lab tests performed by: Division of Pathology and Laboratory Medicine [facility]5 [facility] NT-Pro BNP (In-House) (07/26/2022 10:26 AM CDT)Only the most recent of3 results within the time period is included. P athologist Signature NT ProBNP <36 <=125 pg/mL [place] [facility] Specimen Anatomical Collection Method Collection Time Receive d Time (Source) Location / / Volume Laterality Blood 07/26/2022 10:26 07/26/2022 AM CDT 12:00 PM CDT Megan Kapadia MD LAB BLOOD ORDERABLES Performing Organization Address City/State/ZIP Code Phon e Number [place] [facility] Unless otherwise noted, [place] [address] [place] all lab tests performed by: Division of Pathology and Laboratory Medicine [address] (ABNORMAL) Differential (07/26/2022 10:26 AM CDT)Only the most recent of11 resultswithin the time period is included. athologist Signature Neutrophil % 45.0 42.0 - [facility] 66.0 % DIAGNOSTIC CENTER Lymphocyte % 43.4 24.0 - [facility] 44.0 % DIAGNOSTIC CENTER Monocyte % 8.5 (H) 2.0 - 7.0 [facility] % DIAGNOSTIC CENTER Eosinophil % 1.7 1.0 - 4.0 [facility] % DIAGNOSTIC CENTER Basophil % 0.7 0.0 - 1.0 [facility] % DIAGNOSTIC CENTER IGRE % 0.7 (H) 0.0 - 0.4 [facility] % DIAGNOSTIC CENTER Comment: IGRE % count includes Metamyelo cytes, Myelocytes, and Promyelocytes. Neutrophil Abs 2.65 1.70 - 7.30 K/uL [place] MD RODRIGUEZ [facility] Lymphocyte Abs 2.55 1.00 - 4.80 K/uL [place] MD RODRIGUEZ [facility]IC [place] Monocyte Abs 0.50 0.08 - 0.70 K/uL [place] MD [facility] Eosinophil Abs 0.10 0.04 - 0.40 K/uL [place] MD [facility] [place] Basophil Abs 0.04 0.00 - 0.10 K/uL [place] MD [facility]IC [facility] IG Abs 0.04 0.00 - 0.04 K/uL [place] MD CARINE Storey DIAG[facility]IC CENTER Specimen Anatomical Collection Method Collection Time Receive d Time (Source) Location / / Volume Laterality Blood 07/26/2022 10:26 07/26/2022 AM CDT 10:33 AM CDT Megan Kapadia MD LAB BLOOD ORDERABLES Performing Organization Address City/State/ZIP Code Phon e Number [facility] DIAGNOSTIC Unless otherwise noted, [address] all lab tests performed by: Division of Pathology and Laboratory Medicine [address] [place] [address] BUN (07/26/2022 10:26 AM CDT)Only the most recent of20 resultswithin the time period is included. P athologist Signature BUN 12 6 - 23 [facility] mg/dL DIAGNOSTIC CENTER Specimen Anatomical Collection Method Collection Time Receive d Time (Source) Location / / Volume Laterality Blood 07/26/2022 10:26 07/26/2022 AM CDT 10:35 AM CDT Megan Kapadia MD LAB BLOOD ORDERABLES Performing Organization Address City/[facility] Phon e Number [facility] DIAGNOSTIC Unless otherwise noted, [address] all lab tests performed by: Division of Pathology and Laboratory Medicine [address] [place] [address] (ABNORMAL) ALT (07/26/2022 10:26 AM CDT)Only the most recent of9 resultswithin the time period is included. P athologist Signature ALT 34 (H) <=33 U/L [facility] Specimen Anatomical Collection Method Collection Time Receive d Time (Source) Location / / Volume Laterality Blood 07/26/2022 10:26 07/26/2022 AM CDT 10:35 AM CDT Megan Kapadia MD LAB BLOOD ORDERABLES Performing Organization Address [facility] Phon e Number [facility] DIAGNOSTIC Unless otherwise noted, [address] all lab tests performed by: Division of Pathology and Laboratory Medicine [address] [place] [address] Aspartate Aminotransferase (07/26/2022 10:26 AM CDT)Only the most recent of9 resultswithin the time period is included. P athologist Signature AST 31 <=32 U/L [facility] Specimen Anatomical Collection Method Collection Time Receive d Time (Source) Location / / Volume Laterality Blood 07/26/2022 10:26 07/26/2022 AM CDT 10:35 AM CDT Megan Kapadia MD LAB BLOOD ORDERABLES Performing Organization Address City/[facility] Phon e Number [facility] DIAGNOSTIC Unless otherwise noted, [address] all lab tests performed by: Division of Pathology and Laboratory Medicine [facility] Free T4 (07/26/2022 10:26 AM CDT)Only the most recent of2 resultswithin the time period is included. P athologist Signature T4 Free 1.53 0.93 - 1.70 [facility] ng/dL DIAGNOSTIC CENTER Specimen Anatomical Collection Method Collection Time Receive d Time (Source) Location / / Volume Laterality Blood 07/26/2022 10:26 07/26/2022 AM CDT 10:35 AM CDT Megan Kapadia MD LAB BLOOD ORDERABLES Performing Organization Address City/[facility]/ZIP Code Phon e Number [facility] DIAGNOSTIC Unless otherwise noted, [address] all lab tests performed by: Division of Pathology and Laboratory Medicine [address] [place] [address] Total Protein (07/26/2022 10:26 AM CDT)Only the most recent of9 resultswithin the time period is included. athologist [facility] Total Protein 7.4 6.4 - 8.3 [facility] g/dL [facility] Specimen Anatomical Collection Method Collection Time Receive d Time (Source) Location / / Volume Laterality Blood 07/26/2022 10:26 07/26/2022 AM CDT 10:35 AM CDT Megan Kapadia MD LAB BLOOD ORDERABLES Performing Organization Address City/[facility]/ZIP Code Phon e Number [facility] DIAGNOSTIC Unless otherwise noted, [address] all lab tests performed by: Division of Pathology and Laboratory Medicine [address] [place] [address] (ABNORMAL) Alkaline Phosphatase (07/26/2022 10:26 AM CDT)Only the most recent of 9 resultswithin the time period is included. P athologist Signature Alk Phos 112 (H) 35 - 104 [facility] U/L DI[facility]IC CENTER Specimen Anatomical Collection Method Collection Time Receive d Time (Source) Location / / Volume Laterality Blood 07/26/2022 10:26 07/26/2022 AM CDT 10:35 AM CDT Megan Kapadia MD LAB BLOOD ORDERABLES Performing Organization Address City/[facility]/ZIP Code Phon e Number [facility] DIAGNOSTIC Unless otherwise noted, [address] all lab tests performed by: Division of Pathology and Laboratory Medicine [address] (ABNORMAL) Glucose Level (07/26/2022 10:26 AM CDT)Only the most recent of19 resultswithin the time period is included. P athologist Signature Glucose Level 236 (H) 70 - 99 [facility] mg/dL DIAGNOSTIC CENTER Comment: Effective 09/20/15, the glucose reference intervals have been updated based on [place] [employer] guidelines (Standards of Medical Care [...] Organization Address City/State/ZIP Code Phon e Number [facility] DIAGNOSTIC Unless otherwise noted, [address] all lab tests performed by: Division of Pathology and Laboratory Medicine [address] [place] (ABNORMAL) Calcium Level (07/26/2022 10:26 AM CDT)Only the most recent of5 resultswithin the time period is included. athologist Signature Calcium Lvl 10.4 (H) 8.4 - 10.2 [facility] mg/dL DIAGNOSTIC CENTER Specimen Anatomical Collection Method Collection Time Receive d Time (Source) Location / / Volume Laterality Blood 07/26/2022 10:26 07/26/2022 AM CDT 10:35 AM CDT Megan Kapadia MD LAB BLOOD ORDERABLES Performing Organization Address City/State/ZIP Code Phon e Number [facility] DIAGNOSTIC Unless otherwise noted, [address] all lab tests performed by: Division of Pathology and Laboratory Medicine [address] Albumin Level (07/26/2022 10:26 AM CDT)Only the most recent of10 resultswithin the time period is included. athologist Signature Albumin Lvl 4.6 3.5 - 5.2 [facility] gm/dL DIAGNOSTIC CENTER Specimen Anatomical Collection Method Collection Time Receive d Time (Source) Location / / Volume Laterality Blood 07/26/2022 10:26 07/26/2022 AM CDT 10:35 AM CDT Megan Kapadia MD LAB BLOOD ORDERABLES Performing Organization Address City/[facility] Phon e Number [facility] DIAGNOSTIC Unless otherwise noted, [place] [address] CENTER all lab tests performed by: Division of Pathology and Laboratory Medicine [address] (ABNORMAL) Lipid panel (07/26/2022 10:26 AM CDT) athologist Signature Chol 246 (H) <=199 mg/dL [facility] Comment: ATP III Classification of Total Choleste rol Primary Target of Therapy (in mg/dL): <200 Desirable 200-239 Borderline high >=240 High Trig 201 (H) <=149 mg/dL [facility] Comment: ATP III Classification of Serum Triglyce rides Primary Target of Therapy (in mg/dL): <150 Normal 150-199 Borderline high 200-499 High >=500 Very high Non-fasting triglycerides >200 mg/dL may be followed up with a fasting Lipid Panel. Calculated LDL-C may be falsely decreased when non-fasting triglycerides >200 mg/dL. HDL 52 >=40 mg/dL [facility] [place] LDL 154 (H) <=100 mg/dL [facility] Comment: ATP III Classification of LDL Cholestero l Primary Target of Therapy (in mg/dL): <100 Optimal 100-129 Near optimal/above optimal 130-159 Borderline high 160-189 High >=190 Very high VLDL 40 mg/dL [facility] O[facility] Specimen Anatomical Collection Method Collection Time Receive d Time (Source) Location / / Volume Laterality Blood 07/26/2022 10:26 07/26/2022 AM CDT 10:38 AM CDT Megan Kapadia MD LAB BLOOD ORDERABLES Performing Organization Address City/[facility]/ZIP Code Phon e Number [facility] DIAGNOSTIC Unless otherwise noted, [address] all lab tests performed by: Division of Pathology and Laboratory Medicine [address] Electrolyte Panel (07/26/2022 10:26 AM CDT)Only the most recent of20 results within the time period is included. athologist Signature Sodium Lvl 138 136 - 145 [facility] mEq/L DIAGNOSTIC CENTER Potassium Lvl 4.4 3.5 - 5.1 [facility] mEq/L DIAGNOSTIC CENTER Chloride 102 98 - 107 [facility] mEq/L DIAGNOSTIC CENTER CO2 26 22 - 29 [facility] mEq/L DIAGNOSTIC CENTER Anion Gap 10 4 - 14 [facility] mEq/L DIAGNOSTIC CENTER Specimen Anatomical Collection Method Collection Time Receive d Time (Source) Location / / Volume Laterality Blood 07/26/2022 10:26 07/26/2022 AM CDT 10:35 AM CDT Megan Kapadia MD LAB BLOOD ORDERABLES Performing Organization Address City/[facility]/[place]IP [facility] Phon e Number [facility] DIAGNOSTIC Unless otherwise noted, [address] all lab tests performed by: Division of Pathology and Laboratory Medicine [facility] EKG, 12-Lead (Scheduled) (07/15/2022) Specimen (Source) Anatomical Location Collection Method / Collectio n Time Received Time / Laterality Volume Narrative This result has an attachment that is no t available. Megan Kapadia MD ECG ORDERABLES Performing Organization Address City/[facility]/ZIP [facility] Phon e Number MICHAEL IECG CT Soft Tissue Neck with Contrast (04/12/2022 2:09 PM [employer]) Anatomical Region Laterality Modality Neck Computed Tomography Specimen (Source) Anatomical Collection Method Collection Time Re ceived Time Location / / Volume Laterality 04/15/2022 8:42 AM [employer] Impressions 04/15/2022 10:31 AM [employer] No evidence of local or kourtney recurrence in the cervical region. I personally reviewed these image(s) roverto castillo with the resident's/fellow's interpretations, certify that if a procedure was performed I was physically present, and agree with the final report. Narrative 04/15/2022 10:31 AM [employer] FULL RESULT: Examination: CT SOFT TISSUE NECK [...] CT Chest with Contrast (04/12/2022 2:09 PM [employer]) Anatomical Region Laterality Modality Chest Computed Tomography Specimen (Source) Anatomical Collection Method Collection Time Re ceived Time Location / / Volume Laterality 04/12/2022 3:09 PM [employer] Impressions 04/12/2022 3:24 PM [employer] Resolution of prior features of parenchy mal features and effusions suggestive of pneumonia. Residual pulmonary nodules reflecting treated metastases. Hepatic focal lesions, of indeterminate chronicity, for which evaluation by MRI is advised. Narrative 04/12/2022 3:24 PM [employer] FULL RESULT: Examination: CT CHEST W CONTRAST, [...] (ABNORMAL) POC Glucose Screen (04/02/2022 8:17 AM [employer])Only the most recent of54 resultswithin the time period is included. athologist Signature POC Glucose 134 (H) 70 [...] Sample Type Capillary POC TELCOR Performing Lab [facility] POC TELCO R Comment: [facility], [address] [place] [address], [place] [address]; Lab Direct or: Marylou Olmstead MD; Waived Point of Care Testing - Luz Maria Vázquez MD Specimen Anatomical Collection Method Collection Time Receive d Time (Source) Location / / Volume Laterality Blood 04/02/2022 8:17 AM 8:17 [employer] AM [employer] Satya Carpenter MD POCT ORDERABLES - DEVICE Performing Organization Address City/State/ZIP Code Phon e Number POC TELCOR Unless otherwise noted, [place] [address] lab tests performed by: Division of Pathology and Laboratory Medicine [address] [place] [address] Prothrombin Time with INR (04/02/2022 7:05 AM [employer])Only the most recent of10 resultswithin the time period is included. athologist Signature PT 12.6 11.9 - 14.1 [facility](s) CANCER [place] INR 0.94 0.89 - 1.10 [facility] Specimen Anatomical Collection Method Collection Time Receive d Time (Source) Location / / Volume Laterality Blood 04/02/2022 7:05 AM 3 7:07 [employer] AM [employer] Idania Shah MD LAB BLOOD ORDERABLES Performing Organization Address City/[facility]/ZIP [facility] Phon e Number [facility] CANCER Unless otherwise noted, [address] all lab tests performed by: Division of Pathology and Laboratory Medicine [address] Phosphorus Level (04/02/2022 7:05 AM [employer])Only the most recent of19 resultswithin the time period is included. athologist Signature Phosphorus 3.1 2.5 - 4.5 [facility] mg/dL [facility] Specimen Anatomical Collection Method Collection Time Receive d Time (Source) Location / / Volume Laterality Blood 04/02/2022 7:05 AM 3 7:12 [employer] AM [employer] Idania Shah MD LAB BLOOD ORDERABLES Performing Organization Address [facility] Phon e Number [facility] Unless otherwise noted, [address] all lab tests performed by: Division of Pathology and Laboratory Medicine [address] Magnesium Level (04/02/2022 7:05 AM [employer])Only the most recent of19 resultswithin the time period is included. P athologist Signature Magnesium 2.4 1.6 - 2.6 [facility] mg/dL [facility] Specimen Anatomical Collection Method Collection Time Receive d Time (Source) Location / / Volume Laterality Blood 04/02/2022 7:05 AM 3 7:12 [employer] AM [employer] Idania Shah MD LAB BLOOD ORDERABLES Performing Organization Address City/[facility] Phon e Number [facility] Unless otherwise noted, [address] all lab tests performed by: Division of Pathology and Laboratory Medicine [address] (ABNORMAL) Calcium Ionized, Venous (04/02/2022 7:01 AM [employer])Only the most recent of15 resultswithin the time period is included. P athologist Signature V Ion Ca 1.13 (L) 1.15 - 1.29 [facility] mmol/L [facility] CENTER Specimen Anatomical Collection Method Collection Time Receive d Time (Source) Location / / Volume Laterality Blood 04/02/2022 7:01 AM 3 7:07 [employer] AM [employer] Idania Shah MD LAB BLOOD ORDERABLES Performing Organization Address City/[facility]/ZIP Code Phon e Number [facility] CANCER Unless otherwise noted, [address] all lab tests performed by: Division of Pathology and Laboratory Medicine [address] [place] [address] General Laboratory Add-On Test (04/01/2022 4:14 PM [employer])Only the most recent of3 resultswithin the time period is included. [facility] Ordered Test Added [facility] Test Needed Hemoglobin A1c [facility] Specimen Anatomical Collection Method Collection Time Receive d Time (Source) Location / / Volume Laterality Existing 04/01/2022 4:14 PM 3 4:14 [employer] PM [employer] Ry Noe APRN LAB BLOOD ORDERABLES Performing Organization Address City/[facility] Phon e Number [facility] Unless otherwise noted, [address] all lab tests performed by: Division of Pathology and Laboratory Medicine [address] [place] [address] Clot Expiration Date (04/01/2022 8:09 AM [employer])Only the most recent of3 results within the time period is included. [facility] Signature T & S 04/04/2022 [facility] Specimen Anatomical Collection Method Collection Time Receive d Time (Source) Location / / Volume Laterality Blood 04/01/2022 8:09 AM 3 9:10 [employer] AM [employer] Idania Shah MD BLOOD BANK TEST ORDERABLES Performing Organization Address City/[facility] Phon e Number [facility] Unless otherwise noted, [address] all lab tests performed by: Division of Pathology and Laboratory Medicine [address] [place] [address] TMP Interpretation Antibody Screen Negative (04/01/2022 8:09 AM [employer])Only the most recent of3 resultswithin the time period is included. Patholo gist Method Time Signature TMP Auto Neg At the [place] MD ABSC [facility] CENTER patient plasma shows no evidence of RBC alloantibodi es. Comment: VICKIE LEIGH MD, PhD - [id number] Dictated by: VICIKE LEIGH MD, Ph D - [id number] Dictated Date/Time: 04.01.2022 13:22 PM [employer] Transcribed Date/Time: 04.01.2022 13:22 PM [employer] Electronically Signed By: VICKIE LEIGH MD, PhD - [id number] on 04.01.2022 13:22 PM Specimen Anatomical Collection Method Collection Time Receive d Time (Source) Location / / Volume Laterality Blood 04/01/2022 8:09 AM 3 9:10 [employer] AM [employer] Idania Shah MD BLOOD BANK TEST ORDERABLES Performing Organization Address City/State/ZIP [facility] Phon e Number [facility] CANCER Unless otherwise noted, [address] all lab tests performed by: Division of Pathology and Laboratory Medicine [address] [place] [address] ABOR (04/01/2022 8:09 AM [employer])Only the most recent of3 resultswithin the time period is included. athologist [facility] ABORh. A POS [facility] Specimen Anatomical Collection Method Collection Time Receive d Time (Source) Location / / Volume Laterality Blood 04/01/2022 8:09 AM 3 9:10 [employer] AM [employer] Idania Shah MD BLOOD BANK TEST ORDERABLES Performing Organization Address City/State/[facility] Phon e Number [facility] CANCER Unless otherwise noted, [address] all lab tests performed by: Division of Pathology and Laboratory Medicine [address] [place] [address] Antibody Screen (04/01/2022 8:09 AM [employer])Only the most recent of3 resultswithin the time period is included. athologist [facility] ABSC. Negative ABSC [facility] Specimen Anatomical Collection Method Collection Time Receive d Time (Source) Location / / Volume Laterality Blood 04/01/2022 8:09 AM 3 9:10 [employer] AM [employer] Idania Shah MD BLOOD BANK TEST ORDERABLES Performing Organization Address City/State/ZIP Code Phon e Number [facility] CANCER Unless otherwise noted, [address] all lab tests performed by: Division of Pathology and Laboratory Medicine [address] [place] [address] (ABNORMAL) Hemoglobin A1c (04/01/2022 8:09 AM [employer]) athologist Signature A1C 8.4 (H) 4.3 - 5.6 % [facility] Comment: HbA1c values >=6.5% are diagnostic of di abetes mellitus. Diagnosis should be confirmed by repeat testing. Therapeutic Action suggested: >8.0% HbA1 c; Goal of therapy: <7.0% HbA1c Specimen Anatomical Collection Method Collection Time Receive d Time (Source) Location / / Volume Laterality Blood 04/01/2022 8:09 AM 3 6:57 [employer] PM [employer] Idania Shah MD LAB BLOOD ORDERABLES Performing Organization Address City/State/ZIP Code Phon e Number [facility] CANCER Unless otherwise noted, [address] all lab tests performed by: Division of Pathology and Laboratory Medicine [address] [place] [address] PROCEDURE FOR CODING (03/30/2022 1:37 PM [employer]) Michael Burden RN - 3 1:37 PM [employer] Michael Dillon RN 03/30/2022 1:39 PM PICC/Non-Tunneled [...] risks, benefits, and alternative discussed with patient/designated sales representative facility services. Pre-p rocedure the patient was alert. Time [...] additional bleeding Mode of Disposition: Remained in innv tie bed Idania Shah MD IV THERAPY ORDERABLES POC Critical (03/30/2022 1:30 PM [employer])Only the most recent of4 resultswithin the time period is included. athologist Signature POC Critical See Note POC TELCOR Comment Comment: Test performer notified Orderin g Licensed Provider and /or designee of POC Glucose Screen critical Results.. Specimen Anatomical Collection Method Collection Time Receive d Time (Source) Location / / Volume Laterality Blood 03/30/2022 1:30 PM 3 1:30 [employer] PM [employer] Idania Shah MD POINT OF CARE TEST ORDERABL ES Performing Organization Address City/State/ZIP Code Phon e Number POC TEL[facility] Unless otherwise noted, [place] [address] lab tests performed by: Division of Pathology and Laboratory Medicine [address] [place] [address] aPTT (03/30/2022 7:36 AM [employer])Only the most recent of7 resultswithin the time period is included. athologist Signature aPTT 27.7 22.8 - 34.2 [facility](s) [facility] Specimen Anatomical Collection Method Collection Time Receive d Time (Source) Location / / Volume Laterality Blood 03/30/2022 7:36 AM 3 7:44 [employer] AM [employer] Idania Shah MD LAB BLOOD ORDERABLES Performing Organization Address City/State/ZIP [facility] Phon e Number [facility] CANCER Unless otherwise noted, [address] all lab tests performed by: Division of Pathology and Laboratory Medicine [address] [place] [address] Lactic Acid, Venous (03/29/2022 10:16 AM [employer])Only the most recent of10 results within the time period is included. athologist Signature V Lactate 0.9 0.5 - 1.6 [facility] mmol/L [facility] Specimen Anatomical Collection Method Collection Time Receive d Time (Source) Location / / Volume Laterality Blood 03/29/2022 10:16 03/29/2022 AM [employer] 10:22 AM [employer] Idania Shah MD LAB BLOOD ORDERABLES Performing Organization Address City/[facility]/ZIP Code Phon e Number [facility] Unless otherwise noted, [address] all lab tests performed by: Division of Pathology and Laboratory Medicine [address] [place] [address] (ABNORMAL) ABG (03/29/2022 10:16 AM [employer])Only the most recent of14 resultswithin the time period is included. athologist Signature pH Art 7.49 (H) 7.35 - 7.45 [facility] Comment: Results are corrected for a bod y temp of 37C. pCO2 Art 37.7 32.0 - 45.0 mmHg [place] MD CARINE Storey [facility] pO2 Art 96 83 - 108 mmHg [facility] HCO3 Art 28 21 - 28 mmol/L [facility] Base Excess Art 5 (H) -2 - 3 mmol/L [place] MD [facility] [place] O2 Sat Art 97 95 - 99 % [facility] Specimen Anatomical Collection Method Collection Time Receive d Time (Source) Location / / Volume Laterality Blood 03/29/2022 10:16 03/29/2022 AM [employer] 10:22 AM [employer] Idania Shah MD LAB BLOOD ORDERABLES Performing Organization Address City/State/ZIP Code Phon e Number [facility] Unless otherwise noted, [address] all lab tests performed by: Division of Pathology and Laboratory Medicine [address] [place] [address] X-ray Chest 1 View Portable (03/29/2022 1:42 AM [employer])Only the most recent of4 resultswithin the time period is included. Anatomical Region Laterality Modality Chest Digital Radiography Specimen (Source) Anatomical Collection Method Collection Time Re ceived Time Location / / Volume Laterality 03/29/2022 8:09 AM [employer] Impressions 03/29/2022 8:10 AM [employer] Persistent diffuse opacities, most likely pneumonia. Narrative 03/29/2022 8:10 AM [employer] FULL RESULT: Examination: XR CHEST 1 VW [...] due at 1230 today. (03/28/2022 11:50 AM [employer]) Only the most recent of3 resultswithin the time period is included. P athologist Signature Vanco Trough 9.7 5.0 - 20.0 [place] MD DE PAZ mcg/mL [facility] Comment: Toxic Trough Level: >20 mcg/mL Vanco Tr Dose Time See note [place] MD [facility] Comment: Level, date, and time of previous dose i s not available for this sample. The date reported is th e sample collection date. Vanco Tr Dose Date 03/28/2022 [place] MD [facility] Comment: Level, date, and time of previous dose i s not available for this sample. The date reported is th e sample collection date. Specimen Anatomical Collection Method Collection Time Receive d Time (Source) Location / / Volume Laterality Blood 03/28/2022 11:50 03/28/2022 AM [employer] 12:09 PM [employer] Narrative [facility] - 3 12:46 PM [employer] Draw before dose due at 1230 today. Nathaniel Montes MD LAB BLOOD ORDERABLES Performing Organization Address City/State/ZIP Code Phon e Number [facility] Unless otherwise noted, [place] [address] CENTER all lab tests performed by: Division of Pathology and Laboratory Medicine [address] [facility] Echocardiogram 2D Limited - Follow Up (03/28/2022 8:20 AM [employer]) P athologist Signature EF 39 ISCV Specimen (Source) Anatomical Collection Method Collection Time Re ceived Time Location / / Volume Laterality 03/28/2022 7:29 AM [employer] Narrative ISCV - 03/28/2022 9:54 AM [employer] Echocardiographic Report Interpretation Summary Left ventricular systolic [...] Number ISCV US RENAL (03/27/2022 3:52 PM [employer])Only the most recent of2 resultswithin the time period is included. Anatomical Region Laterality Modality Abdomen Ultrasound Specimen (Source) Anatomical Collection Method Collection Time Re ceived Time Location / / Volume Laterality 03/27/2022 4:06 PM [employer] Impressions 03/27/2022 4:08 PM [employer] No hydronephrosis. Narrative 03/27/2022 4:08 PM [employer] Examination: US RENAL, 03/27/2022 3:52 P M Clinical History: Pyelonephritis Indication: Other:, hydronephrosis. Also appears retained urine in bladder despite donald. Please make sure to eval bladder and [...] The urinary bladder is decompressed with a Donald catheter in place. Procedure Note Alvaro Martinez MD - 03/27/2022Forma tting of this note might be different from the original. Examination: US RENAL, 03/27/2022 3:52 PM Clinical History: Pyelonephritis Indication: Other:, hydronephrosis. Also appears retained urine in bladder despite donald. Please make sure to eval bladder and [...] The urinary bladder is decompressed with a Donald catheter in place. IMPRESSION: No hydronephrosis. Martínez Mendez LUMBER TRIMMER IMG US ORDERABLES Antinuclear Antibody (ED) HEp-2 Substrate, IgG (03/26/2022 1:31 PM [employer]) Patholo gist Method Time Signature ED HEp-2 See Footnote <1:80 [place] Substrate (Negative [place] ) [facility] Comment: RESULT: <1:80 (Negative) ADDITIONAL INFORMATIO N Method: Immunofluorescence using HEp-2 c ellular substrate. Test Performed by: Formerly named [facility] [address] [address] Summer Analyst: Nito Marie M.D. Ph. D.; CLIA# [id number] Specimen Anatomical Collection Method Collection Time Receive d Time (Source) Location / / Volume Laterality Blood 03/26/2022 1:31 PM 3 2:04 [employer] PM [employer] Jayda Shaw MD LAB BLOOD ORDERABLES Performing Organization Address City/State/ZIP Code Phon e Number [facility] Unless otherwise noted, [place] [address] [place] all lab tests performed by: Division of Pathology and Laboratory Medicine [address] (ABNORMAL) Procalcitonin (03/26/2022 1:31 PM [employer])Only the most recent of2 resultswithin the time period is included. Analysis Performed At Patho logist Time Signature Procalcitonin 30.39 (H) <=0.08 [place] ng/mL [facility] Comment: Procalcitonin > 2.00 ng/mL: Procalcit onin [...] with extended dilution as it exceeds the accounting manager assistant controller's recommended limit. Caution should be exercised when interpreting such values and done in conjunction with clinical context. Specimen Anatomical Collection Method Collection Time Receive d Time (Source) Location / / Volume Laterality Blood 03/26/2022 1:31 PM 3 1:53 [employer] PM [employer] Jayda Shaw MD LAB BLOOD ORDERABLES Performing Organization Address [facility] Phon e Number [facility] Unless otherwise noted, [address] all lab tests performed by: Division of Pathology and Laboratory Medicine [address] [place] [address] Anti-Neutrophil Cytoplasmic Antibodies Vascultitis Panel (03/26/2022 1:31 PM [employer]) P athologist Signature Myeloperox <0.2 <0.4 [facility] (Negative) [facility] CENTER Units Proteinase 3 <0.2 <0.4 [facility] (Negative) [facility] CENTER Units Comment: Test Performed by: [facility] [address] [address] Summer Analyst: Nito Marie M.D. Ph. D.; CLIA# [id number] Specimen Anatomical Collection Method Collection Time Receive d Time (Source) Location / / Volume Laterality Blood 03/26/2022 1:31 PM 3 2:04 [employer] PM [employer] Jayda Shaw MD LAB BLOOD ORDERABLES Performing Organization Address [facility] Code Phon e Number [facility] Unless otherwise noted, [address] all lab tests performed by: Division of Pathology and Laboratory Medicine [address] [place] [address] Blood Culture (03/26/2022 1:31 PM [employer])Only the most recent of4 resultswithin the time period is included. Component Value Ref Test Analysis Performed At [facility] gist Range Method Time Signature Final Report No growth [facility] Path Review - Immunity and antibiotic use may render culture negative. Ongoing infection requires repeat culture. The results have been reviewed and electronically signed by Pathologist: [place] MD Newell/Brett Vázquez MD, PhD #[id number] [facility] Specimen Anatomical Collection Method Collection Time Receive d Time (Source) Location / / Volume Laterality Blood Arterial blood 03/26/2022 1:31 PM 023 3:57 specimen / Unknown [employer] PM [employer] Satya Gonzalez LUMBER TRIMMER MICROBIOLOGY - GENERAL ORDER YULIANA Performing Organization Address City/State/ZIP Code Phon e Number [facility] Unless otherwise noted, [address] all lab tests performed by: Division of Pathology and Laboratory Medicine [address] (ABNORMAL) Sed Rate (03/26/2022 1:31 PM [employer]) athologist Signature Sed Rate 83 (H) 0 - 20 [facility] mm/hr [facility] Specimen Anatomical Collection Method Collection Time Receive d Time (Source) Location / / Volume Laterality Blood 03/26/2022 1:31 PM 3 1:47 [employer] PM [employer] Jayda Shaw MD LAB BLOOD ORDERABLES Performing Organization Address City/[facility] Phon e Number [facility] Unless otherwise noted, [address] all lab tests performed by: Division of Pathology and Laboratory Medicine [facility]5 [address] CRP (03/26/2022 1:31 PM [employer])Only the most recent of2 resultswithin the time period is included. athologist Signature CRP 239.41 mg/L [facility] Comment: Reference ranges for HS CRP assay [...] Laterality Blood 03/26/2022 1:31 PM 3 1:53 [employer] PM [employer] Jayda Shaw MD LAB BLOOD ORDERABLES Performing Organization Address City/[facility]/ZIP [facility] Phon e Number [facility] Unless otherwise noted, [address] all lab tests performed by: [facility] Echocardiogram 2D Complete with Contrast (03/26/2022 12:19 PM [employer]) Specimen (Source) Anatomical Collection Method Collection Time Re ceived Time Location / / Volume Laterality 03/26/2022 11:46 AM [employer] Narrative ISCV - 03/26/2022 1:28 PM [employer] Echocardiographic Report Interpretation Summary A complete two-dimensional [...] was not perform ed in this study. (Placemeter Study). Diastology: Unable to evaluate due to [...] dec time: 0.06 sec Ao V2 max: 119. 8 cm/sec Ao max P.7 mmHg Ao V2 mean: 73.7 cm/sec Ao mean P.6 mmHg Ao V2 VTI: 14.3 cm NADEEM(I,D): 2.9 cm2 NADEEM(V,D): 2.7 cm2 LV V1 max P.9 mmHg SV(LVOT): 41 .9 ml LV V1 mean P.5 mmHg LV V1 max: 121.2 cm/sec LV V1 mean: 71.8 cm/sec LV V1 VTI: 15.5 cm PA V2 max: 84.2 cm/sec TR max jose alfredo: 2 13.5 cm/sec PA max P.8 mmHg TR max P.3 mmHg PA V2 mean: 55.6 cm/sec PA mean P.4 mmHg PA V2 VTI: 11.1 cm NADEEM Index (I,D): 2.1 NADEEM Index (V,D ): 2.0 Dimensionless Index: 1.0 Ellie Jasvir ZAMBRANO CV ECHO ORDERABLES Performing Organization Address City/State/ZIP Code Phon e Number ISCV PROCEDURE FOR CODING (03/26/2022 11:37 AM [employer]) Satya Wallace NP - 03/26/2022 11: 37 AM [employer] Satya Gonzalez NP 03/26/2022 11:39 AM Procedures Procedure Date: 03/26/22 Indication(s) for Procedure: Hypovolemia , Need for venous access and Transfusion of blood products & medi cations Allergies: No Known Allergies Provider Information: Procedurist: SATYA GONZALEZ NP Pre-Procedure Note: Chart and relevant tests/films [...] for this procedure Procedure Description: Equipment: 7 Swedish 3-Lumen minocycline/rifampin co ated COOK central venous [...] The guidewire was removed, inspected by the procedurijan t, and removal confirmed by FARZAD Rodríguez. [...] CVC catheter Disposition:Remain in ICU bed. Satya Gonzalez APRN IV THERAPY ORDERABLES Legionella Urine Antigen Path Review (03/26/2022 11:23 AM [employer]) Component Value Ref Test Analysis Performed At Patholo gist Range Method Time [facility] Legionella Reviewed and Electronically signed by Pathologist: [place] Urine Antigen NORMAN CAMARILLO MD #[id number] [facility] Comment: NORMAN CAMARILLO MD - [id number] Dictated by: NORMAN CAMARILLO MD - [id number] Dictated Date/Time: 03.27.2022 19:35 PM [employer] Transcribed Date/Time: 03.27.2022 19:35 PM [employer] Electronically Signed By: NORMAN BAILEY MD - [id number] on 03.27.2022 19:35 PM Specimen Anatomical Collection Method Collection Time Receive d Time (Source) Location / / Volume Laterality Urine 03/26/2022 11:23 03/27/2022 AM [employer] 12:33 PM [employer] Iwona Samuels APRN MICROBIOLOGY - GENERAL ORDER YULIANA Performing Organization Address City/State/ZIP Code Phon e Number [facility] Unless otherwise noted, [place] [address] [place] all lab tests performed by: Division of Pathology and Laboratory Medicine [address] Streptococcal Urine Antigen Path Review (03/26/2022 11:23 AM [employer]) Component Value Ref Test Analysis Performed Pathologis t Range Method Time At [facility] Streptococcal Reviewed and Electronically signed by Pathologist: [place] Urine Antigen NORMAN CAMARILLO MD #[id number] [facility] Comment: NORMAN CAMARILLO MD - [id number] Dictated by: NORMAN CAMARILLO MD - [id number] Dictated Date/Time: 03.27.2022 19:35 PM [employer] Transcribed Date/Time: 03.27.2022 19:35 PM [employer] Electronically Signed By: MD Jimmy HAWKINS [id number] on 03.27.2022 19:35 PM Specimen Anatomical Collection Method Collection Time Receive d Time (Source) Location / / Volume Laterality Urine 03/26/2022 11:23 03/27/2022 AM [employer] 12:33 PM [employer] Iwona Samuels APRN MICROBIOLOGY - GENERAL ORDER [place]ULIANA Performing Organization Address City/[facility] Phon e Number [facility] Unless otherwise noted, [address] all lab tests performed by: Division of Pathology and Laboratory Medicine [address] Streptococcus pneumoniae Urine Antigen (03/26/2022 11:23 AM [employer]) Component Value Ref Test Analysis Performed At [facility] Time Signature Streptococcal Presumptive negative for S. pneumoniae antigen in the urine, suggesting no current or recent pneumococcal infection. However, infection due to S. pneumoniae cannot be completely ruled out since the leve [place] Urine Antigen l of antigen present in the urine may be below the [place] Interpretation detection limit of the test. [facility] Streptococcal Negative [place] Urine Antigen BALDEV Interpretation [facility] Specimen Anatomical Collection Method Collection Time Receive d Time (Source) Location / / Volume Laterality Urine 03/26/2022 11:23 03/26/2022 1:50 AM [employer] PM [employer] Ellie Tay APRN MICROBIOLOGY - GENERAL ORDER [place]UL[place]NA Performing Organization Address City/[facility] Phon e Number [facility] Unless otherwise noted, [address] all lab tests performed by: Division of Pathology and Laboratory Medicine Sandra[address] Legionella Urine Antigen (03/26/2022 11:23 AM [employer]) Component Value Ref Test Analysis Performed At [facility] Signature Legionella Urine Negative for L. pneumophila serogroup 1 antigen, suggesting no recent or current infection. However, infections due to other serogroups and species of Legionella are not detected by this assay. In addition, antigen may not be present in the urine in [facility] early infection and the leve l of antigen present in the urine may be below the detection limit of the test. [facility] Interpretation [facility] CENTER Legionella Urine Negative [facility] Antigen [place] Interpretation [facility]CER [place] Specimen Anatomical Collection Method Collection Time Receive d Time (Source) Location / / Volume Laterality Urine 03/26/2022 11:23 03/26/2022 1:50 AM [employer] PM [employer] Ellie Tay APRN MICROBIOLOGY - GENERAL ORDER [place] Performing Organization Address City/State/ZIP Code Phon e Number [facility] Unless otherwise noted, [address] all lab tests performed by: Division of Pathology and Laboratory Medicine [address] MRSA Screening Culture (03/26/2022 11:23 AM [employer]) Component Value Ref Test Analysis Performed At Patholo gist Range Method Time Signature Final Report No Methicillin [facility] Staphylococcus CANCER aureus isolated. CENTER Path Review The results have been review ed and electronically signed by Pathologist: [place] MD NORMAN CAMARILLO MD #[id number] [facility] Specimen Anatomical Collection Method Collection Time Receive d Time (Source) Location / / Volume Laterality Nasal 03/26/2022 11:23 03/26/2022 1:58 AM [employer] PM [employer] Ellie Tay APRN MICROBIOLOGY - GENERAL ORDER [place]UL[place]NA Performing Organization Address City/State/ZIP Code Phon e Number [facility] Unless otherwise noted, [address] all lab tests performed by: Division of Pathology and Laboratory Medicine [address] (ABNORMAL) Fibrinogen (03/26/2022 11:01 AM [employer]) P athologist Signature Fibrinogen 697 (H) 214 - 503 [facility] mg/dL [facility] Specimen Anatomical Collection Method Collection Time Receive d Time (Source) Location / / Volume Laterality Blood 03/26/2022 11:01 03/26/2022 AM [employer] 11:11 AM [employer] Satya Gonzalez APRN LAB BLOOD ORDERABLES Performing Organization Address City/[facility]/ZIP Code Phon e Number [facility] Unless otherwise noted, [address] all lab tests performed by: Division of Pathology and Laboratory Medicine [address] [place] ARTL CATHJ/CANNULJ MNTR/TRANSFUSION SPX PRQ, HC ARTERIAL LINE FOR BP MON (03/26/2022 10:45 AM [employer]) Narrative Satya Gonzalez NP - 03/26/2022 10: 45 AM [employer] Satya Gonzalez NP 03/26/2022 10:48 AM Arterial line insertion Date/Time: 03/26/2022 10:45 AM Provider Information: Performed by: Satya Gonzalez NP Authorized by: Satya Gonzalez NP Allergies: No Known Allergies Satya Gonzalez LUMBER TRIMMER PROCEDURE/MINOR SURGICAL ORD ERABLES X-ray Chest 1 View (03/26/2022 10:27 AM [employer])Only the most recent of2 results within the time period is included. Anatomical Region Laterality Modality Chest Digital Radiography Specimen (Source) Anatomical Collection Method Collection Time Re ceived Time Location / / Volume Laterality 03/26/2022 10:31 AM [employer] Impressions 03/26/2022 10:32 AM [employer] Endotracheal tube with its distal tip in the proximal aspect of right mainstem bronchus. Reposition is recommended. Interval increase of bilateral lung opac ities may represent pneumonia, pulmonary edema or hemorrhage superimposed to atelectasis. Narrative 03/26/2022 10:32 AM [employer] FULL RESULT: Examination: XR CHEST 1 VW, [...] APRN IMG DIAGNOSTIC IMAGING ORDER [place]UL[place]NA (ABNORMAL) [place] Miscellaneous Test (03/26/2022 10:24 AM [employer]) [facility] Rayn Method Time Signature Frye Mis Test See Footnote MARTY HENDERSON Result (A) [facility] Comment: Test Result Flag Unit RefValue Beta-Hydroxybutyrate, S 2.0 H mmol/L <0.4 Test Performed by: [place] [address] Summer Analyst: Nito Herman. Ph.D.; CLIA# [id number] [facility] Test Name Beta-Hydroxybutyrate U T [facility] Specimen Anatomical Collection Method Collection Time Receive d Time (Source) Location / / Volume Laterality Varies 03/26/2022 10:24 03/26/2022 AM [employer] 11:18 AM [employer] Narrative [facility] - 3 4:11 PM [employer] Beta-Hydroxybutyrate Karin WHITMAN LAB BLOOD ORDERABLES Performing Organization Address City/State/ZIP Code Phon e Number [facility] Unless otherwise noted, [place] [address] [place] all lab tests performed by: Division of Pathology and Laboratory Medicine [facility]5 [address] Legionella Culture (03/26/2022 10:17 AM [employer]) Component Value Ref Test Analysis Performed At [facility] Rayn Range Method Time Signature Final Report No Legionella MARTY HENDERSON species isolated [facility] Path Review - The results have been review ed and electronically signed by Pathologist: MARTY HENDERSON Legionella Abiodun Vázquez MD, PhD #[id number] [facility] Specimen Anatomical Collection Method Collection Time Receive d Time (Source) Location / / Volume Laterality Tracheal 03/26/2022 10:17 03/26/2022 1:55 Aspirate AM [employer] PM [employer] Ellie Tay JUAN MANUEL MICROBIOLOGY - GENERAL ORDER YULIANA Performing Organization Address City/State/ZIP Code Phon e Number [facility] Unless otherwise noted, [place] [address] [place] all lab tests performed by: Division of Pathology and Laboratory Medicine [address] (ABNORMAL) POC Chem 8 (03/26/2022 10:01 AM [employer]) P athologist Signature POC NA 145 138 [...] Clean Dev Yes POC TELCOR Performing Lab [facility] POC TELCO R Comment: [facility], [address] [place] [address], [place] [address]; Lab Direct or: Marylou Olmstead MD; Waived Point of Care Testing - Luz Maria Vázquez MD Specimen Anatomical Collection Method Collection Time Receive d Time (Source) Location / / Volume Laterality Blood 03/26/2022 10:01 03/26/2022 AM [employer] 10:01 AM [employer] Idania Shah MD POCT ORDERABLES - DEVICE Performing Organization Address City/State/ZIP Code Phon e Number POC TELCOR Unless otherwise noted, [place] [address] lab tests performed by: Division of Pathology and Laboratory Medicine [address] [place] [address] (ABNORMAL) POC ABG (03/26/2022 9:55 AM [employer])Only the most recent of2 results within the time period is included. athologist Signature POC AB pH 7.34 (L) 7.35 - 7.45 POC TELCOR Comment: The i-STAT is an analyzer used for in vi tro quantification of various analytes in whole blood. The device uses a single disposable cartridge which contains microfabricated sensors, a calibration Outbox n, fluidics system, and a waste chamber. Each [...] Dev Yes POC TELCOR Performing Lab [facility] POC TELCO R Comment: [facility], [address] [place] [address], [place] [address]; Lab Direct or: Marylou Olmstead MD; Waived Point of Care Testing - Luz Maria Vázquez MD Specimen Anatomical Collection Method Collection Time Receive d Time (Source) Location / / Volume Laterality Blood 03/26/2022 9:55 AM 9:55 [employer] AM [employer] Idania Shah MD POCT ORDERABLES - DEVICE Performing Organization Address City/[facility]/ZIP [facility] Phon e Number POC TELCOR Unless otherwise noted, [place] [address] lab tests performed by: Division of Pathology and Laboratory Medicine [address] [facility] Lower Respiratory Culture w/Gram Stain (03/26/2022 9:36 AM [employer]) Component Value Ref Test Analysis Performed At [facility] gist Range Method Time Signature Final Report No growth [facility] Path Review The results have been review ed and electronically signed by Pathologist: [place] MD NORMAN CAMARILLO MD #[id number] A [facility] Gram Stain Few WBC's seen [place] Report No organisms seen. [facility] Specimen Anatomical Collection Method Collection Time Receive d Time (Source) Location / / Volume Laterality Tracheal 03/26/2022 9:36 AM 3 1:55 Aspirate [employer] PM [employer] Ellie Tay APRN MICROBIOLOGY - GENERAL ORDER YULIANA Performing Organization Address City/[facility] Phon e Number [facility] Unless otherwise noted, [address] all lab tests performed by: Division of Pathology and Laboratory Medicine [address] [facility] [employer] Culture w/Smear (03/26/2022 9:36 AM [employer]) Component Value Ref Test Analysis Performed At [facility] gist Range Method Time Signature Final Report No acid fast [place] bacteria isolated [place] at [address] [facility] Path Review - Culture yield may be affecte d by sample quality, prior treatment, and transportation conditions. [place] ... BALDEV The results have been reviewed and electronically signed b y Pathologist: EVELINE Mckeon MD, PhD #[id number] C ENTER Acid Fast No Acid Fast MARTY HENDERSON Stain Truant Bacilli seen in [place] direct smear [facility] Specimen Anatomical Collection Method Collection Time Receive d Time (Source) Location / / Volume Laterality Tracheal 03/26/2022 9:36 AM 3 1:55 Aspirate [employer] PM [employer] Narrative [facility] - 3 5:56 PM CDT Cultures are held 8 weeks before finaliz ation. Ellie Tay APRN MICROBIOLOGY - GENERAL ORDER YULIANA Performing Organization Address City/[facility]/ZIP Code Phon e Number [facility] Unless otherwise noted, [address] all lab tests performed by: Division of Pathology and Laboratory Medicine [address] [place] Fungus Culture (03/26/2022 9:36 AM [employer]) Component Value Ref Test Analysis Performed At Patholo gist Range Method Time Signature Final Report No Fungi isolated. [facility] Path Review - Culture yield may be affecte d by sample quality, prior treatment, and transportation conditions. The results have been reviewed and electronically signed by Pathologist: [place] Fungus Abiodun Vázquez MD, PhD #[id number] [facility] Specimen Anatomical Collection Method Collection Time Receive d Time (Source) Location / / Volume Laterality Tracheal 03/26/2022 9:36 AM 3 1:55 Aspirate [employer] PM [employer] Narrative [facility] - 3 4:14 PM [employer] Cultures are held for 4 weeks before fin alization. Ellieteresa Tay APRN MICROBIOLOGY - GENERAL ORDER YULIANA Performing Organization Address City/State/ZIP Code Phon e Number [facility] Unless otherwise noted, [address] all lab tests performed by: Division of Pathology and Laboratory Medicine [facility] [place] CT Chest Pulmonary Embolism with Contrast (03/26/2022 8:42 AM [employer]) Anatomical Region Laterality Modality Chest Computed Tomography Specimen (Source) Anatomical Collection Method Collection Time Re ceived Time Location / / Volume Laterality 03/26/2022 8:44 AM [employer] Impressions 03/26/2022 8:54 AM [employer] Technically adequate exam. No evidence for pulmonary embolism. Development of right greater than left p ulmonary opacities suspicious for pneumonia. Superimposed interstitial pulmonary edema or pulmonary hemorrhage cannot be excluded Small bilateral pleural effusions Increase in size of mediastinal and leti r lymph nodes, likely reactive Narrative 03/26/2022 8:54 AM [employer] FULL RESULT: Examination: CT CHEST PULMONARY EMBOLISM [...] CT ORDERABLES (ABNORMAL) VBG (03/26/2022 5:28 AM [employer]) athologist Signature pH Kojo 7.31 (L) 7.32 - 7.43 [facility] Comment: Results are corrected for a bod y temp of 37C pCO2 Kojo 35.9 (L) 41.0 - 51.0 mmHg [place] MD CARINE Storey [facility] pO2 Kojo 56 mmHg [facility] HCO3 Kojo 18 (L) 21 - 28 mmol/L [facility] Base Excess Kojo -7 (L) -2 - 3 mmol/L [place] MD [facility] O2 Sat Kojo 90 % [facility] Specimen Anatomical Collection Method Collection Time Receive d Time (Source) Location / / Volume Laterality Blood 03/26/2022 5:28 AM 5:41 [employer] AM [employer] Robin Noe APRN LAB BLOOD ORDERABLES Performing Organization Address City/State/ZIP Code Phon e Number [facility] Unless otherwise noted, [address] all lab tests performed by: Division of Pathology and Laboratory Medicine [address] [employer] C Peptide (03/26/2022 12:25 AM [employer]) athologist Signature C-Peptide 2.34 1.10 - 4.40 [facility] ng/mL [facility] Specimen Anatomical Collection Method Collection Time Receive d Time (Source) Location / / Volume Laterality Blood 03/26/2022 12:25 03/26/2022 1:05 AM [employer] AM [employer] Paola Dill MD LAB BLOOD ORDERABLES Performing Organization Address City/State/ZIP Code Phon e Number [facility] Unless otherwise noted, [address] all lab tests performed by: Division of Pathology and Laboratory Medicine [address] [employer] EKG, 12-Lead (Portable) (03/26/2022)Only the most recent of4 resultswithin the time period is included. Specimen (Source) Anatomical Location Collection Method / Collectio n Time Received Time / Laterality Volume Narrative This result has an attachment that is no t available. Satya L. Gonzalez LUM[employer]IMMER ECG ORDERABLES Performing Organization Address City/State/ZIP Code Phon e Number MICHAEL IECG POC UHCG (03/25/2022 1:24 AM [employer]) athologist Signature POC U hCG Negative Negative [...] hCG Cont Valid POC TELCOR Performing Lab [facility] POC TELCO R Comment: [facility], [address] [place] [address]; Lab Direct or: Marylou Olmstead MD; Waived Point of Care Testing - Luz Maria Vázquez MD Specimen Anatomical Collection Method Collection Time Receive d Time (Source) Location / / Volume Laterality Urine 03/25/2022 1:24 AM 3 1:24 [employer] AM [employer] Paola Dill MD POCT ORDERABLES - DEVICE Performing Organization Address City/[facility]/ZIP Code Phon e Number POC TELCOR Unless otherwise noted, [place] [address] lab tests performed by: Division of Pathology and Laboratory Medicine [address] [place] [address] (ABNORMAL) Urinalysis Microscopic Exam (03/25/2022 12:36 AM [employer]) athologist [facility] UA WBC >182 (H) 0 - 2 /HPF [facility] Comment: Some reporting parameters within the Uri nalysis test have changed due to the implementation of new instrumentation in the [facility], allowing greater sensitivity of measurement. Urinalysis results rep orted by the [facility] using existing instrumentation, as well as Urinalysis t esting performed manually or by backup methodology at the [facility] will remain relatively unchanged. New reporting parameters and units will not be reported for all falfurriases. UA RBC 11 (H) 0 - 2 /HPF [place] MD [facility] UA Mucous TRACE Not Seen-Trace /HPF [place] MD [facility] UA Bacteria NOT SEEN NOT SEEN /HPF [facility] UA Squam Epi 1+ (A) None-Occasional /HPF [facility] Specimen Anatomical Collection Method Collection Time Receive d Time (Source) Location / / Volume Laterality Urine 03/25/2022 12:36 03/25/2022 AM [employer] 12:46 AM [employer] Paola Dill MD LAB BLOOD ORDERABLES Performing Organization Address City/State/ZIP Code Phon e Number [facility] Unless otherwise noted, [address] all lab tests performed by: Division of Pathology and Laboratory Medicine Kimberly Hopkins (ABNORMAL) Urinalysis w/Microscopic if Indicated (03/25/2022 12:36 AM [employer]) [facility] gist Method Time Signature UA Color Yellow Straw-Yel [facility] UA Appear Hazy (A) Clear [facility] UA Glucose 100 (A) NEG mg/dL [facility] UA Bili NEG NEG [facility] UA Ketones 80 (A) NEG mg/dL [facility] UA Spec Grav 1.024 1.003 [facility] UA Blood Moderate (A) NEG [facility] UA pH 6.0 5.0 - 9.0 [facility] UA Protein 300 (A) NEG mg/dL [facility] UA Urobilinogen 1+ (A) NEG [facility] UA Nitrite POS (A) NEG [facility] UA Leuk Est Large (A) NEG [facility] Specimen Anatomical Collection Method Collection Time Receive d Time (Source) Location / / Volume Laterality Urine 03/25/2022 12:36 03/25/2022 AM [employer] 12:46 AM [employer] Paola Dill MD URINE ORDERABLES Performing Organization Address City/State/ZIP Code Phon e Number [facility] Unless otherwise noted, [address] all lab tests performed by: Division of Pathology and Laboratory Medicine Kimberly Hopkins (ABNORMAL) Urine Culture (03/25/2022 12:36 AM [employer]) Component Value Ref Test Analysis Performed At [facility] Range Method Time Signature Final Report 10 - 50,000 cfu/ml Escherichia coli TX ... BALDEV <10,000 cfu/ml Normal site nida present. [facility] CENTER Path Review - The results have been review ed and electronically signed by Pathologist: [place] MD Kaylan CAMARILLO MD #[id number] A MANNY Webb) [facility] Organism Escherichia coli [place] MD Webb) BALDEV [facility] Specimen Anatomical Collection Method Collection Time Receive d Time (Source) Location / / Volume Laterality Urine 03/25/2022 12:36 03/25/2022 1:15 AM [employer] AM [employer] Narrative [place] [facility] - 3:53 PM [employer] Early Sepsis Intervention Organism Antibiotic Method Susceptibility [...] INHIBITORY <=16: Suscep tible CONCENTRATION Escherichia coli Trimethoprim/Sulfamethoxa MINIMUM INHIBITORY >= 320: Resistant zole CONCENTRATION Paola Dill MD MICROBIOLOGY - GENERAL ORDER YULIANA Performing Organization Address City/State/ZIP Code Phon e Number [place] [facility] Unless otherwise noted, [address] all lab tests performed by: Division of Pathology and Laboratory Medicine [address] [place] [address] Confirm ABORh (03/24/2022 11:29 PM [employer]) athologist Signature ABORh Confirm. A POS [facility] Specimen Anatomical Collection Method Collection Time Receive d Time (Source) Location / / Volume Laterality Blood 03/24/2022 11:29 03/24/2022 PM [employer] 11:43 PM [employer] Paola Dill MD BLOOD BANK TEST ORDERABLES Performing Organization Address City/State/ZIP Code Phon e Number [facility] Unless otherwise noted, [address] all lab tests performed by: Division of Pathology and Laboratory Medicine [address] [place] [address] (ABNORMAL) POC VBG+Lac (03/24/2022 11:18 PM [employer]) athologist Signature POC VB pH 7.39 7.31 - POC [...] Clean Dev Yes POC TELCOR Performing Lab [facility] POC TELCO R Comment: [facility], [address] [place] [address], [place] [address]; Lab Direct or: Marylou Olmstead MD; Waived Point of Care Testing - Luz Maria Vázquez MD Specimen Anatomical Collection Method Collection Time Receive d Time (Source) Location / / Volume Laterality Blood 03/24/2022 11:18 03/24/2022 PM [employer] 11:18 PM [employer] Paola Dill MD POCT ORDERABLES - DEVICE Performing Organization Address City/State/ZIP Code Phon e Number POC TELCOR Unless otherwise noted, [place] [address] lab tests performed by: Division of Pathology and Laboratory Medicine [facility]5 [facility] Respiratory Multiplex PCR Panel, Nasopharyngeal Swab (03/24/2022 11:10 PM [employer]) Component Value Ref Range Test Analysis Performed Pathologis t Method Time At [facility] RM Source Not UT MD Applicable [facility] Adenovirus Not Detected Not [place] MD Detected [facility] Coronavirus 229E Not Detected Not [place] MD Detected [facility] Coronavirus HKU1 Not Detected Not [place] MD Detected [facility] Coronavirus NL63 Not Detected Not [place] MD Detected [facility] Coronavirus OC43 Not Detected Not [place] MD Detected [facility] COVID19 Not Detected Not [place] MD (SARS-CoV-2) Detected [facility] Human Not Detected Not [place] MD Metapneumovirus Detected [facility] Human Not Detected Not [place] MD Rhinovirus/Enterov Detected [facility] Influenza A Not Detected Not [place] MD Detected [facility] Influenza A H1 Not Detected Not [place] MD Detected [facility] Influenza A H1 Not Detected Not [place] 2009 Detected [facility] Influenza A H3 Not Detected Not [place] MD Detected [facility] Influenza B Not Detected Not [place] Detected [facility] Parainfluenza 1 Not Detected Not [place] Detected [facility] Parainfluenza 2 Not Detected Not [place] MD Detected [facility] Parainfluenza 3 Not Detected Not [place] MD Detected [facility] Parainfluenza 4 Not Detected Not [place] MD Detected [facility] Respiratory Not Detected Not [place] MD Syncytial Virus Detected [facility] Bordetella Not Detected Not UT Parapertussis Detected [facility] Bordetella Not Detected Not UT pertussis Detected [facility] Chlamydiophila Not Detected Not UT pneumoniae Detected [facility] Mycoplasma Not Detected Not UT pneumoniae Detected [facility] Specimen (Source) Anatomical Collection Method Collection Time Re ceived Time Location / / Volume Laterality Nasopharyngeal Swab 03/24/2022 11:10 02/25 PM [employer] 11:26 PM [employer] Narrative [place] MD [facility] - 3 12:28 AM [employer] Has patient had a positive for COVID-19 result in the last 3 months?->No The BioFire RP2.1 is a real-time, nested multiplexed polymerase chain reaction test designed to simultaneously identify nucleic acids from 22 different viruses and bacteria associated with respiratory tract infect ion, including SARS-CoV-2, from a single nasopharyngeal swab (SUPERVISOR TELEPH[employer] INFORMATION) specimen obtained from individuals suspected of respiratory [...] that may not be detected by an SUPERVISOR [employer] INFORMATION specimen. Internal controls are used to monitor [...] and high-complexity tests. The [facility], CLIA Accreditation #[id number] and CAP Accreditation #[id number], verified the per formance characteristics of this assay. [facility] performs the assay using the InsightSquared System. Paola Dill MD MICROBIOLOGY - GENERAL ORDER YULIANA Performing Organization Address City/State/ZIP Code Phon e Number [facility] Unless otherwise noted, [place] [address] [place] all lab tests performed by: Division of Pathology and Laboratory Medicine [address] Kaylin Hopkins (ABNORMAL) LDH (03/24/2022 11:10 PM [employer]) athologist Signature LDH 288 (H) 135 - 214 [facility] U/L [facility] CENTER Comment: Results greater than [...] Volume Laterality Blood 03/24/2022 11:10 03/24/2022 PM [employer] 11:16 PM [employer] Paola Dill MD LAB BLOOD ORDERABLES Performing Organization Address City/State/ZIP Code Phon e Number [facility] Unless otherwise noted, [place] [address] CENTER all lab tests performed by: Division of Pathology and Laboratory Medicine [address] [facility] OS CT Abdomen and Pelvis (03/24/2022 4:15 PM [employer]) Specimen (Source) Anatomical Location Collection Method / Collectio n Time Received Time / Laterality Volume Narrative Systemgenerated, Documentation - 023 4:15 PM [employer] Study acquired at another institution. For comparison only. No MD De Paz originated interpretation requested or a vailable. Lolita Ann MD IMG OUTSIDE IMAGE ORDERABLES MRI Thoracic Spine with and without Contrast (03/14/2022 6:31 PM [employer]) Anatomical Region Laterality Modality T-spine, Spine Magnetic Resonance Specimen (Source) Anatomical Collection Method Collection Time Re ceived Time Location / / Volume Laterality 03/14/2022 7:24 PM [employer] Impressions 03/14/2022 7:37 PM [employer] A tiny focus of low T1 signal in the T1 vertebral body and a small focus of low T1 signal in the T8 vertebral body are indeterminate and may represent hemangiomas. Follow-up MRI can be obtained for further evaluation. Narrative 03/14/2022 7:37 PM [employer] FULL RESULT: Examination: MRI THORACIC SPINE W [...] Examination: MRI THORACIC SPINE W WO CON JAMES, 03/14/2022 6:31 PM. Clinical History: Malignant neoplasm [...] obtained for further evaluation. Lolita Ann MD IM MRI ORDERABLES COVID-19 (SARS-CoV-2) PCR-Asymptomatic [facility] (03/13/2022 2:16 PM [employer]) [facility] Method Time Signature COVID19 (SARS Not Detected Not Detected [place] CoV-2) [facility] Comment: This test is a qualitative reverse-trans [...] fact sheet for patients provided by the accounting manager assistant controller ( [employer]) can be rev iewed at: https://www.fda.gov/media/225775/downloa d. A fact sheet for Health Care providers is provided by the accounting manager assistant controller ([employer]) and can be reviewed at: https://www.fda.gov/media/611754/download Results must be interpreted within the c [...] were verified by the [facility], CLIA Accreditation #: [id number] and CAP Accreditation #: [id number]. COVID19 SARS Source [employer] Swab [place] MD [facility] COVID19 SARS Indication Pre-Out of OR Procedure [facility] Specimen (Source) Anatomical Collection Method Collection Time Re ceived Time Location / / Volume Laterality Nasopharyngeal Swab 03/13/2022 2:16 03/13 PM [employer] 3:45 PM [employer] Lolita Ann MD MICROBIOLOGY - GENERAL ORDER YULIANA Performing Organization Address City/State/ZIP Code Phon e Number [facility] Unless otherwise noted, [place] [address] [place] all lab tests performed by: Division of Pathology and Laboratory Medicine [facility] US HEAD NECK SOFT TISSUE (03/13/2022 2:05 PM [employer]) Anatomical Region Laterality Modality Head, Neck Ultrasound Specimen (Source) Anatomical Collection Method Collection Time Re ceived Time Location / / Volume Laterality 03/13/2022 2:01 PM [employer] Impressions 03/13/2022 3:41 PM [employer] 1. Majority of the central compartment nodules have the appearance of benign lymph nodes, and can be followed sonographically. 2. No definite lateral compartment lym phadenopathy. Mildly prominent nodes are seen in the superior neck in a symmetric fashion, to be followed. Narrative 03/13/2022 3:41 PM [employer] FULL RESULT: Examination: US HEAD NECK SOFT [...] US ORDERABLES PTH Intact (03/13/2022 12:30 PM [employer]) athologist Signature PTH Intact 21.0 15.0 - 65.0 [facility] pg/mL CANCER CENTER Specimen Anatomical Collection Method Collection Time Receive d Time (Source) Location / / Volume Laterality Blood 03/13/2022 12:30 03/13/2022 PM [employer] 12:55 PM [employer] Lolita Ann MD LAB BLOOD ORDERABLES Performing Organization Address City/State/ZIP Code Phon e Number [facility] Unless otherwise noted, [place] [address] CENTER all lab tests performed by: Division of Pathology and Laboratory Medicine Sandra5 Kaylin Hopkins Hepatitis C Virus Ab (03/13/2022 12:30 PM [employer]) Patholo gist Method Time Signature HCVAb. Non Reactive Non Reactive [facility] [place] Comment: Antibody detection in the immunocompromi sed and immunosuppressed population may be delayed or absent entirely. Therefore serial testing, correlation with other clinical findings, and supplemental testin g (if available) should be taken into co nsideration when interpreting the results. Specimen Anatomical Collection Method Collection Time Receive d Time (Source) Location / / Volume Laterality Blood 03/13/2022 12:30 03/13/2022 1:10 PM [employer] PM [employer] Lolita Ann MD LAB BLOOD ORDERABLES Performing Organization Address City/[facility]/ZIP [facility] Phon e Number [facility] Unless otherwise noted, [address] all lab tests performed by: Division of Pathology and Laboratory Medicine [address] [place] [address] (ABNORMAL) Vitamin D 25OH (03/13/2022 12:30 PM [employer]) athologist [facility] Vitamin D 25 21 (L) 30 - 100 [facility] OH ng/mL [facility] Comment: Reference Range: Deficiency: <10 ng/mL Insufficiency: 10-29 ng/mL Sufficiency: 30-100 ng/mL Potential toxicity: >100 ng/mL Specimen Anatomical Collection Method Collection Time Receive d Time (Source) Location / / Volume Laterality Blood 03/13/2022 12:30 03/13/2022 PM [employer] 12:55 PM [employer] Lolita Ann MD LAB BLOOD ORDERABLES Performing Organization Address City/[facility] Phon e Number [facility] Unless otherwise noted, [address] all lab tests performed by: Division of Pathology and Laboratory Medicine [address] [place] [address] Thyroglobulin (03/13/2022 12:30 PM [employer]) athologist Signature Thyroglobulin 2.98 1.59 - [facility] 50.03 ng/mL CANCER [place] Comment: Reference range in athyrotic patients is <0.1 ng/mL. Due to varying antigen specificity, affi nity and avidity of capture and conjugate antibodies in their epitope reactions, some thyroglobulin samples may not dilute linearly when results exceed 450 ng/mL. Thyroglob Ab <0.9 <=3.9 IU/ml [facility] Comment: Due to varying antigen specific ity, affinity and avidity of capture and conjugate antibodies in their epitope re actions, some thyroglobulin antibody samples may not dilute linearly when results exc eed 1650 IU/mL. Specimen Anatomical Collection Method Collection Time Receive d Time (Source) Location / / Volume Laterality Blood 03/13/2022 12:30 03/13/2022 PM [employer] 12:55 PM [employer] Lolita Ann MD LAB BLOOD ORDERABLES Performing Organization Address City/State/ZIP Code Phon e Number [facility] Unless otherwise noted, [address] all lab tests performed by: Division of Pathology and Laboratory Medicine [address] [place] [address] (ABNORMAL) TSH (03/13/2022 12:30 PM [employer]) P athologist Signature TSH 0.01 (L) 0.27 - 4.20 [facility] mcunit/mL [facility] Specimen Anatomical Collection Method Collection Time Receive d Time (Source) Location / / Volume Laterality Blood 03/13/2022 12:30 03/13/2022 PM [employer] 12:55 PM [employer] Lolita Ann MD LAB BLOOD ORDERABLES Performing Organization Address City/[facility]/ZIP Code Phon e Number [facility] Unless otherwise noted, [address] all lab tests performed by: Division of Pathology and Laboratory Medicine [address] [place] [address] OSI US Thyroid (01/30/2022 1:11 PM [employer]) Specimen (Source) Anatomical Location Collection Method / Collectio n Time Received Time / Laterality Volume Narrative Systemgenerated, Documentation - 022 1:12 PM [employer] Study acquired at another institution. For comparison only. No MD De Paz originated interpretation requested or a vailable. Lolita Ann MD IMG OUTSIDE IMAGE ORDERABLES after 01/01/2022 Insurance Payer Benefit Plan / Subscriber ID Effective Dates Phone Addre ss Type Group [facility] [employer] [id number] 2017-Present [id number] [place] [address] Veronica Olmstead Personal/Famil Self [id number] (Home) [address] [address] Veronica Olmstead Personal/Famil Self 1995 [phone] (Home) [address] [address] Advance Directives Code Status Date Activated Date Inactivated Comments Full Code 03/25/2022 7:21 AM 04/02/2022 4:10 PM Care Teams Guest Associate Relationship Specialty Start Date End Date Lolita Ann MD PCP - General Endocrinology 04/20/19 [facility] [place] [address]
--- OUTSIDE RECORDS SUMMARY | 2023-01-01 12:45 | XMS REPORT | Continuity of Care Document ---
:1995 Author Organization [facility] t Address [address] [facility] [address] [place] [address] Care Team Providers Name Role Phone Frances HENDERSON, Conrad Primary Care Physician Kang HENDERSON, Megan Jorge Attending Clinician Fahad RN, Leroy Attending Clinician Darrian PANDA, Shereen Attending Clinician Unavailable Kamla HENDERSON, Inge Mahmood Attending Clinician [phone] Seth HENDERSON, Johnson Attending Clinician Aniyah HENDERSON, Paola Moore Attending Clinician Hanna HENDERSON, Bud Attending Clinician Magdiel Olmstead MD Attending Clinician Kiara Shah MD Attending Clinician [phone] Renard Carpenter MD, Satya Lambert Attending Clinician [phone] Dafne Zhang Attending Clinician Ry Noe APRN Attending Clinician KIARA SHAH Attending Clinician Unavailable MAGDIEL OLMSTEAD Attending Clinician Unavailable Minerva Ludwig MA Attending Clinician Unavailable Alfred HENDERSON, Gary Hernandez Attending Clinician Lindy Swanson MD Attending Clinician River HENDERSON, Slim Springer Attending Clinician JOHNSON ANN Attending Clinician Unavailable BUD GOLDMAN Admitting Clinician Unavailable Payers Payer Name Policy Type Policy Number Effective Date Expiration Date S ource Problems Condition Condition Condition Status Onset Resolution Last Treating Co mments Source Name Details Category Date Date Treatment Clinician Date 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 [place] at[place] athy 00 MD [facility] Acute Acute Disease Active Univers congestive congestive 2-06 it y of heart heart 00:00: [place] failure failure 00 MD Rodney mireles [facility] Acute Acute Disease Active Univers respirator respirator 1-31 it y of [place] distress [place] 00:[place] syndrome syndrome 00 MD [facility] Pyelonephr Pyelonephr Disease Active U nivers itis itis 1-30 ity of 00:00: [place] 00 MD [facility] Current Current Disease Active Univers use of use of 1-30 ity of insulin insulin 00:00: [place] 00 MD [facility] Type 2 Type 2 Disease Active Univers diabetes diabetes 1-18 ity of mellitus mellitus 00:00: [place] with with 00 hyperglyrebeca hyperglyce An dergopal [facility] Metastasis Metastasis Disease Active 2020-0 U nivers to head to head 3-18 ity of and neck and neck 00:00: [place] lymph node lymph node 00 MD [facility] Pulmonary Pulmonary Disease Active 2020-0 Uni vers nodules nodules 3-18 ity of 00:00: [place] 00 MD Rodney mireles [facility] Postoperat Postoperat Disease Active 2020-0 U nivers bryon bryon 3-18 ity of hypothyroi hypothyroi 00:[place] dism dism 00 MD [facility] 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 Family History Family Member Diagnosis Comments Start Date Stop Date Source Natural father Hyperlipidemia Univer sity [facility] Maternal aunt Diabetes [facility] Maternal aunt Hypertension [facility] Maternal aunt Hyperlipidemia Univers ity of [facility] Maternal grandmother Diabetes Univ ersity [facility] Natural mother Hypertension [facility] Paternal grandmother Diabetes [facility] Paternal grandmother Hypertension [facility] Social History Social Habit Start Date Stop Date Quantity Comments Source [facility] Toby Veras [facility] Exposure to 2022-07-16 2022-07-26 Not sure University SARS-CoV-2 (event) 00:00:00 10:36:00 Toby cerna [place] Alcohol intake 2022-07-15 2022-07-15 Current drinker of Un iversity of 00:00:00 00:00:00 alcohol (finding) Toby cerna [place] History of Social 2022-07-15 2022-07-15 Univers ity of function 00:00:00 00:00:00 Toby cerna [place] Tobacco use and 2022-03-13 2022-03-13 Smokeless tobacco Un iversity of exposure 00:00:00 00:00:00 non-user Toby cerna [place] Alcohol Comment 2022-03-13 2022-03-13 occasionally as Univ ersity of 00:00:00 00:00:00 reported by Toby HENDERSON patient. Jack cerna [place] Sex Assigned At [birth year] F Universit y of 00:00:00 00:00:00 Toby cerna [place] Smoking Status Start Date Stop Date Source Never smoked tobacco [facility] Medications Ordered Filled Start Stop Current Ordering Indication Dosage Frequency Signature Comments Components Source Medication Medication Date Date Medication? Clinician (SIG) Name Name FERROUS Yes 28mg Take 28 mg Univ ers SULFATE 5-22 by mouth ity of ORAL 13:57: daily. [place] [address] MD [facility] FERROUS 0 Yes 28mg Take 28 mg Univ ers SULFATE 5-22 by mouth ity of ORAL 13:57: daily. [place] [address] [facility] FERROUS 2022-0 Yes 28mg Take 28 mg Univ ers SULFATE 5-22 by mouth ity of ORAL 13:57: daily. [place] [address] [facility] FERROUS 0 Yes 28mg Take 28 mg Univ ers SULFATE 5-22 by mouth ity of ORAL 13:57: daily. [place] [address] [facility] FERROUS 2022-0 Yes 28mg Take 28 mg Univ ers SULFATE 5-22 by mouth ity of ORAL 13:57: daily. [place] [address] [facility] FERROUS 0 Yes 28mg Take 28 mg Univ ers SULFATE 5-22 by mouth ity of ORAL 13:57: daily. [place] [address] [facility] FERROUS 2022-0 Yes 28mg Take 28 mg Univ ers SULFATE 5-22 by mouth ity of ORAL 13:57: daily. [place] [address] [facility] FERROUS 0 Yes 28mg Take 28 mg Univ ers SULFATE 5-22 by mouth ity of ORAL 13:57: daily. [place] [address] [facility] FERROUS 2022-0 Yes 28mg Take 28 mg Univ ers SULFATE 5-22 by mouth ity of ORAL 13:57: daily. [place] [address] [facility] FERROUS 0 Yes 28mg Take 28 mg Univ ers SULFATE 5-22 by mouth ity of ORAL 13:57: daily. [place] [address] [facility] furosemide Yes Stress 40mg Take 1 Uni vers (LASIX) 40 2-08 induced tablet (40 ity of mg tablet 00:00: cardiomyopa mg) by [place] [id number] thy mouth daily. [facility] furosemide Yes Stress 40mg Take 1 Uni vers (LASIX) 40 2-08 induced tablet (40 ity of mg tablet 00:00: cardiomyopa mg) by [place] [address] thy mouth daily. [facility] furosemide Yes Stress 40mg Take 1 Uni vers (LASIX) 40 2-08 induced tablet (40 ity of mg tablet 00:00: cardiomyopa mg) by [place] thy mouth daily. [facility] furosemide Yes Stress 40mg Take 1 Uni vers (LASIX) 40 2-08 induced tablet (40 ity of mg tablet 00:00: cardiomyopa mg) by [address] mouth MD daily. [facility] furosemide Yes Stress 40mg Take 1 Uni vers (LASIX) 40 2-08 induced tablet (40 ity of mg tablet 00:00: cardiomyopa mg) by [address] mouth MD daily. [facility] furosemide Yes Stress 40mg Take 1 Uni vers (LASIX) 40 2-08 induced tablet (40 ity of mg tablet 00:00: cardiomyopa mg) by [address] mouth MD daily. [facility] furosemide Yes Stress 40mg Take 1 Uni vers (LASIX) 40 2-08 induced tablet (40 ity of mg tablet 00:00: cardiomyopa mg) by [address] mouth MD daily. [facility] furosemide Yes Stress 40mg Take 1 Uni vers (LASIX) 40 2-08 induced tablet (40 ity of mg tablet 00:00: cardiomyopa mg) by [address] mouth MD daily. [facility] furosemide Yes Stress 40mg Take 1 Uni vers (LASIX) 40 2-08 induced tablet (40 ity of mg tablet 00:00: cardiomyopa mg) by [address] mouth MD daily. [facility] furosemide Yes Stress 40mg Take 1 Uni vers (LASIX) 40 2-08 induced tablet (40 ity of mg tablet 00:00: cardiomyopa mg) by [place] [facility] mouth daily. [facility] furosemide Yes Stress 40mg Take 1 Uni vers (LASIX) 40 2-08 induced tablet (40 ity of mg tablet 00:00: cardiomyopa mg) by [address] mouth MD daily. [facility] furosemide Yes Stress 40mg Take 1 Uni vers (LASIX) 40 2-08 induced tablet (40 ity of mg tablet 00:00: cardiomyopa mg) by [address] mouth MD daily. [facility] furosemide Yes Stress 40mg Take 1 Uni vers (LASIX) 40 2-08 induced tablet (40 ity of mg tablet 00:00: cardiomyopa mg) by [place] [address] thy mouth daily. [facility] furosemide Yes Stress 40mg Take 1 Uni vers (LASIX) 40 2-08 induced tablet (40 ity of mg tablet 00:00: cardiomyopa mg) by [place] thy mouth MD daily. [facility] furosemide Yes Stress 40mg Take 1 Uni vers (LASIX) 40 2-08 induced tablet (40 ity of mg tablet 00:00: cardiomyopa mg) by [place] thy mouth MD daily. [facility] furosemide Yes Stress 40mg Take 1 Uni vers (LASIX) 40 2-08 induced tablet (40 ity of mg tablet 00:00: cardiomyopa mg) by [place] thy mouth MD daily. [facility] FERROUS 0 Yes 28mg Take 28 mg Univ ers SULFATE 2-07 by mouth ity of ORAL 14:05: daily. [place] [address] [facility] FERROUS 0 Yes 28mg Take 28 mg Univ ers SULFATE 2-07 by mouth ity of ORAL 14:05: daily. [place] [address] [facility] FERROUS 2022-0 Yes 28mg Take 28 mg Univ ers SULFATE 2-07 by mouth ity of ORAL 14:05: daily. [place] [address] [facility] FERROUS 0 Yes 28mg Take 28 mg Univ ers SULFATE 2-07 by mouth ity of ORAL 14:05: daily. [place] [address] [facility] FERROUS 0 Yes 28mg Take 28 mg Univ ers SULFATE 2-07 by mouth ity of ORAL 14:05: daily. [place] [address] [facility] FERROUS 0 Yes 28mg Take 28 mg Univ ers SULFATE 2-07 by mouth ity of ORAL 14:05: daily. [place] [address] [facility] metoprolol Yes Stress 12.5mg Take 0.5 Univers succinate 2-07 induced tablets ity of (TOPROL XL) 00:00: cardiomyopa (12.5 mg) [place] 25 mg 24 hr 00 thy by mouth tablet twice Anderso daily. [facility] sacubitriL- Yes Stress 1{tbl} Take 1 Univers valsartan 2-07 induced tablet by it y of (ENTRESTO) 00:00: cardiomyopa mouth [place] 24 mg-26 mg 00 thy every 12 MD tab per (twelve) [place] tablet hours. n [facility] famotidine Yes Papillary 20mg Take 1 Univers (PEPCID) 20 2-07 thyroid tablet (20 ity of mg tablet 00:00: carcinoma mg) by [place] 00 mouth MD twice [place] daily. n [facility] insulin Yes Type 2 10U Inject [...] hyperglycem daily with [place] ia breakfast. n [facility] insulin Yes Type 2 5U Inject [...] mouth MD tablet twice [place] daily. n [facility] sacubitriL- Yes Stress 1{tbl} Take 1 Univers valsartan 2-07 induced tablet by it y of (ENTRESTO) 00:00: cardiomyopa mouth [place] 24 mg-26 mg 00 thy every 12 MD tab per (twelve) [place] tablet hours. n [facility] famotidine Yes Papillary 20mg Take 1 Univers (PEPCID) 20 2-07 thyroid tablet (20 ity of mg tablet 00:00: [place] mg) by [place] 00 mouth MD twice [place] daily. n [facility] insulin Yes Type 2 10U Inject [...] hyperglycem daily with [place] ia breakfast. n [facility] insulin Yes Type 2 5U Inject [...] mouth MD tablet twice [place] daily. n [facility] sacubitriL- Yes Stress 1{tbl} Take 1 Univers valsartan 2-07 induced tablet by it y of (ENTRESTO) 00:00: cardiomyopa mouth [place] 24 mg-26 mg 00 thy every 12 MD tab per (twelve) [place] tablet hours. n [facility] famotidine Yes Papillary 20mg Take 1 Univers (PEPCID) 20 2-07 thyroid tablet (20 ity of mg tablet 00:00: carcinoma mg) by [place] 00 mouth MD twice [place] daily. n [facility] insulin Yes Type 2 10U Inject [...] hyperglycem daily with [place] ia breakfast. n [facility] insulin Yes Type 2 5U Inject [...] mouth MD tablet twice [place] daily. n [facility] sacubitriL- Yes Stress 1{tbl} Take 1 Univers valsartan 2-07 induced tablet by it y of (ENTRESTO) 00:00: cardiomyopa mouth [place] 24 mg-26 mg 00 thy every 12 MD tab per (twelve) [place]o tablet hours. n [facility] famotidine Yes Papillary 20mg Take 1 Univers (PEPCID) 20 2-07 thyroid tablet (20 ity of mg tablet 00:00: carcinoma mg) by [place] 00 mouth MD twice [place] daily. n [facility] insulin Yes Type 2 10U Inject [...] hyperglycem daily with [place] ia breakfast. n [facility] insulin Yes Type 2 5U Inject [...] mouth MD tablet twice [place] daily. n [facility] sacubitriL- Yes Stress 1{tbl} Take 1 Univers valsartan 2-07 induced tablet by it y of (ENTRESTO) 00:00: cardiomyopa mouth [place] 24 mg-26 mg 00 thy every 12 MD tab per (twelve) [place] tablet hours. n [facility] famotidine Yes Papillary 20mg Take 1 Univers (PEPCID) 20 2-07 thyroid tablet (20 ity of mg tablet 00:00: carcinoma mg) by [place] 00 mouth MD twice [place] daily. n [facility] insulin Yes Type 2 10U Inject [...] hyperglycem daily with [place] ia breakfast. n [facility] insulin Yes Type 2 5U Inject [...] mouth MD tablet twice [place] daily. n [facility] sacubitriL- Yes Stress 1{tbl} Take 1 Univers valsartan 2-07 induced tablet by it y of (ENTRESTO) 00:00: cardiomyopa mouth [place] 24 mg-26 mg 00 thy every 12 MD tab per (twelve) Anders[place] tablet hours. n [facility] famotidine Yes Papillary 20mg Take 1 Univers (PEPCID) 20 2-07 thyroid tablet (20 ity of mg tablet 00:00: carcinoma mg) by [place] 00 mouth MD twice [place] daily. n [facility] insulin Yes Type 2 10U Inject [...] hyperglycem daily with [place] ia breakfast. n [facility] insulin Yes Type 2 5U Inject [...] mouth MD tablet twice [place] daily. n [facility] sacubitriL- Yes Stress 1{tbl} Take 1 Univers valsartan 2-07 induced tablet by it y of (ENTRESTO) 00:00: cardiomyopa mouth [place] 24 mg-26 mg 00 thy every 12 MD tab per (twelve) [place] tablet hours. n [facility] famotidine Yes Papillary 20mg Take 1 Univers (PEPCID) 20 2-07 thyroid tablet (20 ity of mg tablet 00:00: carcinoma mg) by [place] 00 mouth MD twice [place] daily. n [facility] insulin Yes Type 2 10U Inject [...] hyperglycem daily with [place] ia breakfast. n [facility] insulin Yes Type 2 5U Inject [...] mouth MD tablet twice [place] daily. n [facility] sacubitriL- Yes Stress 1{tbl} Take 1 Univers valsartan 2-07 induced tablet by it y of (ENTRESTO) 00:00: cardiomyopa mouth [place] 24 mg-26 mg 00 thy every 12 MD tab per (twelve) [place] tablet hours. n [facility] famotidine Yes Papillary 20mg Take 1 Univers (PEPCID) 20 2-07 thyroid tablet (20 ity of mg tablet 00:00: carcinoma mg) by [place] mouth MD twice [place] daily. n [facility] insulin Yes Type 2 10U Inject [...] hyperglycem daily with [place] ia breakfast. n [facility] insulin Yes Type 2 5U Inject [...] mouth MD tablet twice [place] daily. n [facility] sacubitriL- Yes Stress 1{tbl} Take 1 Univers valsartan 2-07 induced tablet by it y of (ENTRESTO) 00:00: cardiomyopa mouth [place] 24 mg-26 mg 00 thy every 12 MD tab per (twelve) [place] tablet hours. n [facility] famotidine Yes Papillary 20mg Take 1 Univers (PEPCID) 20 2-07 thyroid tablet (20 ity of mg tablet 00:00: carcinoma mg) by [place] 00 mouth MD twice [place] daily. n [facility] insulin Yes Type 2 10U Inject [...] hyperglycem daily with [place] ia breakfast. n [facility] insulin Yes Type 2 5U Inject [...] mouth MD tablet twice [place] daily. n [facility] sacubitriL- Yes Stress 1{tbl} Take 1 Univers valsartan 2-07 induced tablet by it y of (ENTRESTO) 00:00: cardiomyopa mouth [place] 24 mg-26 mg 00 thy every 12 MD tab per (twelve) [place] tablet hours. n [facility] famotidine Yes Papillary 20mg Take 1 Univers (PEPCID) 20 2-07 thyroid tablet (20 ity of mg tablet 00:00: carcinoma mg) by [place] 00 mouth MD twice [place] daily. n [facility] insulin Yes Type 2 10U Inject [...] hyperglycem daily with [place] ia breakfast. n [facility] insulin Yes Type 2 5U Inject [...] mouth MD tablet twice [place] daily. n [facility] sacubitriL- Yes Stress 1{tbl} Take 1 Univers valsartan 2-07 induced tablet by it y of (ENTRESTO) 00:00: cardiomyopa mouth [place] 24 mg-26 mg 00 thy every 12 MD tab per (twelve) [place] tablet hours. n [facility] famotidine Yes Papillary 20mg Take 1 Univers (PEPCID) 20 2-07 thyroid tablet (20 ity of mg tablet 00:00: carcinoma mg) by [place] 00 mouth MD twice [place] daily. n [facility] insulin Yes Type 2 10U Inject [...] hyperglycem daily with [place] ia breakfast. n [facility] insulin Yes Type 2 5U Inject [...] mouth MD tablet twice [place] daily. n [facility] sacubitriL- Yes Stress 1{tbl} Take 1 Univers valsartan 2-07 induced tablet by it y of (ENTRESTO) 00:00: cardiomyopa mouth [place] 24 mg-26 mg 00 thy every 12 MD tab per (twelve) [place] tablet hours. n [facility] famotidine Yes Papillary 20mg Take 1 Univers (PEPCID) 20 2-07 thyroid tablet (20 ity of mg tablet 00:00: carcinoma mg) by [place] mouth MD twice [place] daily. [facility] insulin Yes Type 2 10U Inject [...] hyperglycem daily with [place] ia breakfast. n [facility] insulin Yes Type 2 5U Inject [...] mouth MD tablet twice [place] daily. n [facility] sacubitriL- Yes Stress 1{tbl} Take 1 Univers valsartan 2-07 induced tablet by it y of (ENTRESTO) 00:00: cardiomyopa mouth [place] 24 mg-26 mg 00 thy every 12 MD tab per (twelve) [place] tablet hours. n [facility] famotidine Yes Papillary 20mg Take 1 Univers (PEPCID) 20 2-07 thyroid tablet (20 ity of mg tablet 00:00: carcinoma mg) by [place] mouth MD twice [place] daily. n [facility] insulin Yes Type 2 10U Inject [...] hyperglycem daily with [place] ia breakfast. n [facility] insulin Yes Type 2 5U Inject [...] mouth MD tablet twice [place] daily. n [facility] sacubitriL- Yes Stress 1{tbl} Take 1 Univers valsartan 2-07 induced tablet by it y of (ENTRESTO) 00:00: cardiomyopa mouth [place] 24 mg-26 mg 00 thy every 12 MD tab per (twelve) [place] tablet hours. n [facility] famotidine Yes Papillary 20mg Take 1 Univers (PEPCID) 20 2-07 thyroid tablet (20 ity of mg tablet 00:00: carcinoma mg) by [place] 00 mouth MD twice [place] daily. n [facility] insulin Yes Type 2 10U Inject [...] hyperglycem daily with [place] ia breakfast. n [facility] insulin Yes Type 2 5U Inject [...] mouth MD tablet twice [place] daily. n [facility] sacubitriL- Yes Stress 1{tbl} Take 1 Univers valsartan 2-07 induced tablet by it y of (ENTRESTO) 00:00: cardiomyopa mouth [place] 24 mg-26 mg 00 thy every 12 MD tab per (twelve) [place] tablet hours. n [facility] famotidine Yes Papillary 20mg Take 1 Univers (PEPCID) 20 2-07 thyroid tablet (20 ity of mg tablet 00:00: carcinoma mg) by [place] mouth MD twice [place] daily. n [facility] insulin Yes Type 2 10U Inject [...] hyperglycem daily with [place] ia breakfast. n [facility] insulin Yes Type 2 5U Inject [...] mouth MD tablet twice [place] daily. n [facility] sacubitriL- Yes Stress 1{tbl} Take 1 Univers valsartan 2-07 induced tablet by it y of (ENTRESTO) 00:00: cardiomyopa mouth [place] 24 mg-26 mg 00 thy every 12 MD tab per (twelve) [place] tablet hours. n [facility] famotidine Yes Papillary 20mg Take 1 Univers (PEPCID) 20 2-07 thyroid tablet (20 ity of mg tablet 00:00: carcinoma mg) by [place] mouth MD twice [place] daily. n [facility] insulin Yes Type 2 10U Inject [...] hyperglycem daily with [place] ia breakfast. n [facility] insulin Yes Type 2 5U Inject [...] No Claustroph[place] .5mg Take 1 Univers (Ativan) -19 02-07 [place] tablet ity of 0.5 mg 00:00: [...] [place] tablet 00 :00 by mouth 2 (perla) Anders[place] times a n day as Cancer [...] [place] tablet 00 :00 by mouth 2 (perla) [place] times a n day as Cancer [...] [place] tablet 00 :00 by mouth 2 (perla) [place] times a n day as Cancer [...] MD once for 1 [place] dose. n [facility] LORazepam 2022-0 2022- No Claustroph[place] .5mg Take 1 Univers (Ativan) 03-13 [place] tablet ity of 0.5 mg 00:00: 05:59 (0.5 mg) [place] tablet 00 :00 by mouth MD once for 1 Anderso dose. [facility] LORazepam 2022-0 3- No Claustropho .5mg Take 1 Univers (Ativan) 03-13 [place] tablet ity of 0.5 mg 00:00: 05:59 (0.5 mg) [place] tablet 00 :00 by mouth MD once for 1 [place] dose. [facility] LORazepam 2022-0 2022- No Claustropho .5mg Take 1 Univers (Ativan) 03-13 [place] tablet ity of 0.5 mg 00:00: 05:59 (0.5 mg) [place] tablet 00 :00 by mouth MD once for 1 [place] dose. [facility] LORazepam 2022-0 2023- No Claustropho .5mg Take [...] 1 [place] dose. Take n prior to [facility] LORazepam 2022- No Claustropho .5mg Take 1 Univers (Ativan) 03-13 [place] tablet ity of 0.5 mg 00:00: 00:00 (0.5 mg) [place] tablet 00 :00 by mouth MD once for 1 [place] dose. Take n prior to [facility] LORazepam 2022- No Claustropho .5mg Take 1 Univers (Ativan) 03-13 [place] tablet ity of 0.5 mg 00:00: 00:00 (0.5 mg) [place] tablet 00 :00 by mouth MD once for 1 [place] dose. Take n prior to [facility] LORazepam 2022- No Claustropho .5mg Take 1 Univers (Ativan) 03-13 [place] tablet ity of 0.5 mg 00:00: 00:00 (0.5 mg) [place] tablet 00 :00 by mouth MD once for 1 [place] dose. Take n prior to [facility] LORazepam 2022- No Claustropho .5mg Take 1 Univers (Ativan) 03-13 [place] tablet ity of 0.5 mg 00:00: 00:00 (0.5 mg) [place] tablet 00 :00 by mouth MD once for 1 [place] dose. Take n prior to [facility] LORazepam 2022- No Claustroph[place] .5mg Take 1 Univers (Ativan) 03-13 [place] tablet ity of 0.5 mg 00:00: 00:00 (0.5 mg) [place] tablet 00 :00 by mouth MD once for 1 [place] dose. Take n prior to [facility] LORazepam 2022- No Claustropho .5mg Take 1 Univers (Ativan) 03-13 [place] tablet ity of 0.5 mg 00:00: 00:00 (0.5 mg) [place] tablet 00 :00 by mouth MD once for 1 Anderso dose. Take n prior to [facility] LORazepam 2022- No Claustropho .5mg Take 1 Univers (Ativan) 03-13 [place] tablet ity of 0.5 mg 00:00: 00:00 (0.5 mg) [place] tablet 00 :00 by mouth MD once for 1 Anderso dose. Take n prior to [facility] LORazepam 2022- No Claustropho .5mg Take 1 Univers (Ativan) 03-13 [place] tablet ity of 0.5 mg 00:00: 00:00 (0.5 mg) [place] tablet 00 :00 by mouth MD once for 1 Anderso dose. Take n prior to [facility] LORazepam 2022- No Claustropho .5mg Take 1 Univers (Ativan) 03-13 [place] tablet ity of 0.5 mg 00:00: 00:00 (0.5 mg) [place] tablet 00 :00 by mouth MD once for 1 [place] dose. Take n prior to [facility] LORazepam 2022- No Claustropho .5mg Take 1 Univers (Ativan) 03-13 [place] tablet ity of 0.5 mg 00:00: 00:00 (0.5 mg) [place] tablet 00 :00 by mouth MD once for 1 [place] dose. Take n prior to [facility] LORazepam 2022- No Claustropho .5mg Take 1 Univers (Ativan) 03-13 [place] tablet ity of 0.5 mg 00:00: 00:00 (0.5 mg) [place] tablet 00 :00 by mouth MD once for 1 [place]o dose. Take n prior to [facility] LORazepam 2022- No Claustropho .5mg Take 1 Univers (Ativan) 03-13 marshall tablet ity of 0.5 mg 00:00: 00:00 (0.5 mg) [place] tablet 00 :00 by mouth MD once for 1 Anderso dose. Take n prior to [facility] LORazepam 2022- No Claustropho .5mg Take 1 Univers (Ativan) 03-13 [place]all tablet ity of 0.5 mg 00:00: 00:00 (0.5 mg) [place] tablet 00 :00 [facility] sertraline Yes TAKE ONE Uni vers (ZOLOFT) 25 1-17 (1) ity of mg tablet 00:00: TABLET(S) Rex as 00 BY MOUTH MD DAILY. [facility] sertraline Yes TAKE ONE Uni vers (ZOLOFT) 25 1-17 (1) ity of mg tablet 00:00: TABLET(S) [place] as 00 BY MOUTH MD DAILY. [facility] sertraline Yes TAKE ONE Uni vers (ZOLOFT) 25 1-17 (1) ity of mg tablet 00:00: TABLET(S) [place] as 00 BY MOUTH MD DAILY. [facility] sertraline Yes TAKE ONE Uni vers (ZOLOFT) 25 1-17 (1) ity of mg tablet 00:00: TABLET(S) [place] as 00 BY MOUTH MD DAILY. [facility] sertraline Yes TAKE ONE Uni vers (ZOLOFT) 25 1-17 (1) ity of mg tablet 00:00: TABLET(S) [place] as 00 BY MOUTH MD DAILY. [facility] sertraline Yes TAKE ONE Uni vers (ZOLOFT) 25 1-17 (1) ity of mg tablet 00:00: TABLET(S) [place] as 00 BY MOUTH MD DAILY. [facility] sertraline Yes TAKE ONE Uni vers (ZOLOFT) 25 1-17 (1) ity of mg tablet 00:00: TABLET(S) [place] 00 BY MOUTH MD DAILY. [facility] sertraline Yes TAKE ONE Uni vers (ZOLOFT) 25 1-17 (1) ity of mg tablet 00:00: TABLET(S) [place] 00 BY MOUTH MD DAILY. [facility] sertraline Yes TAKE ONE Uni vers (ZOLOFT) 25 1-17 (1) ity of mg tablet 00:00: TABLET(S) [place] 00 BY MOUTH MD DAILY. [facility] sertraline Yes TAKE ONE Uni vers (ZOLOFT) 25 1-17 (1) ity of mg tablet 00:00: TABLET(S) [place] 00 BY MOUTH MD DAILY. [facility] sertraline Yes TAKE ONE Uni vers (ZOLOFT) 25 1-17 (1) ity of mg tablet 00:00: TABLET(S) [place] 00 BY MOUTH MD DAILY. [facility] sertraline Yes TAKE ONE Uni vers (ZOLOFT) 25 1-17 (1) ity of mg tablet 00:00: TABLET(S) [place] 00 BY MOUTH MD DAILY. [facility] sertraline Yes TAKE ONE Uni vers (ZOLOFT) 25 1-17 (1) ity of mg tablet 00:00: TABLET(S) [place] 00 BY MOUTH MD DAILY. [facility] sertraline Yes TAKE ONE Uni vers (ZOLOFT) 25 1-17 (1) ity of mg tablet 00:00: TABLET(S) [place] 00 BY MOUTH MD DAILY. [facility] sertraline Yes TAKE ONE Uni vers (ZOLOFT) 25 1-17 (1) ity of mg tablet 00:00: TABLET(S) [place] as 00 BY MOUTH MD DAILY. [facility] sertraline Yes TAKE ONE Uni vers (ZOLOFT) 25 1-17 (1) ity of mg tablet 00:00: TABLET(S) [place] 00 BY MOUTH MD DAILY. [facility] metFORMIN 2022- No TAKE 2 Unive rs (GLUCOPHAGE 03-12-07 TABLETS ity of -XR) 500 mg 00:00: 00[place] :00 DAILY WITH MD tablet MEALS. [facility] metFORMIN 2022- No TAKE 2 Unive rs (GLUCOPHAGE 03-12 02-07 TABLETS ity of -XR) 500 mg 00:00: 00:[place] :00 DAILY WITH MD tablet MEALS. [facility] metFORMIN 2022- No TAKE 2 Unive rs (GLUCOPHAGE 1-17 02-07 TABLETS ity of -XR) 500 mg 00:00: 00:[place] :00 DAILY WITH MD tablet MEALS. [facility] metFORMIN 2022- No TAKE 2 Unive rs (GLUCOPHAGE 1- TABLETS ity of -XR) 500 mg 00:00: 00:[place] :00 DAILY WITH MD tablet MEALS. [facility] metFORMIN 2022- No TAKE 2 Unive rs (GLUCOPHAGE 1- TABLETS ity of -XR) 500 mg 00:00: 00:[place] :00 DAILY WITH MD tablet MEALS. [facility] metFORMIN 2022- No TAKE 2 Unive rs (GLUCOPHAGE 1- TABLETS ity of -XR) 500 mg 00:00: 00:[place] :00 DAILY WITH MD tablet MEALS. [facility] metFORMIN 2022- No TAKE 2 Unive rs (GLUCOPHAGE 03-12- TABLETS ity of -XR) 500 mg 00:00: 00:[place] :00 DAILY WITH MD tablet MEALS. [facility] metFORMIN 2022- No TAKE 2 Unive rs (GLUCOPHAGE 03-12- TABLETS ity of -XR) 500 mg 00:00: 00:[place] :00 DAILY WITH MD tablet MEALS. [facility] metFORMIN 2022- No TAKE 2 Unive rs (GLUCOPHAGE 03-12- TABLETS ity of -XR) 500 mg 00:00: 00:[place] :00 DAILY WITH MD tablet MEALS. [facility] metFORMIN 2022- No TAKE 2 Unive rs (GLUCOPHAGE 1- TABLETS ity of -XR) 500 mg 00:00: 00:[place] 00 :00 DAILY WITH MD tablet MEALS. [facility] metFORMIN 2022- No TAKE 2 Unive rs (GLUCOPHAGE 1-07 TABLETS ity of -XR) 500 mg 00:00: 00:[place] 00 :00 DAILY WITH MD tablet MEALS. [facility] metFORMIN 2022- No TAKE 2 Unive rs (GLUCOPHAGE 17 -07 TABLETS ity of -XR) 500 mg 00:00: 00:[place] :00 DAILY WITH MD tablet MEALS. [facility] metFORMIN 2022-2022- No TAKE 2 Unive rs (GLUCOPHAGE 17 -07 TABLETS ity of -XR) 500 mg 00:00: 00:[place] :00 DAILY WITH MD tablet MEALS. [facility] metFORMIN 2022- No TAKE 2 Unive rs (GLUCOPHAGE 17 - TABLETS ity of -XR) 500 mg 00:00: 00:[place] 00 :00 DAILY WITH MD tablet MEALS. [facility] metFORMIN 2022-2022- No TAKE 2 Unive rs (GLUCOPHAGE 03-12- TABLETS ity of -XR) 500 mg 00:00: 00:[place] 00 :00 DAILY WITH MD tablet MEALS. [facility] metFORMIN 2022- No TAKE 2 Unive rs (GLUCOPHAGE 17 - TABLETS ity of -XR) 500 mg 00:00: 00:[place] :00 DAILY WITH MD tablet MEALS. [facility] TAKE 2 2022-0 No 500 TABLETS 1-16 TWICE DAILY 00:00: WITH MEALS. 00 TAKE 1 2022-0 No 200 TABLET 1-16 DAILY. 00:00: 00 INJECT 2022-0 No 100 UNITS BELOW 1-16 THE SKIN 00:00: USING THE 00 SLIDING SCALE. NOT TO EXCEED MORE THAN 50 UNITS MAX TAKE 1 2022-0 No 100 CAPSULE 1-16 EVERY 12 00:00: HOURS 00 DAILY. doxycycline 2022-0 2022- No TAKE ONE U nivers (VIBRAMYCIN 03-11- (1) ity of ) 100 MG 00:00: 00:00 [place] capsule 00 :00 BY MOUTH MD EVERY Anders TWELVE n HOURS. [facility] insulin 2022- No 5U Inject 5 [...] No 5U Inject 5 Unive rs lispro -11 04-07 Units ity of (HumaLOG 00:00: 00:00 under [...] MD EVERY Anderso TWELVE n HOURS. [facility] [place] insulin 2022- No 5U Inject 5 Unive [...] times a n day. [facility] doxycycline 2022-2022- No TAKE ONE U nivers (VIBRAMYCIN 1-16 [...] times a n day. [facility] doxycycline 2022-2022- No TAKE ONE U nivers (VIBRAMYCIN 1-16 -07 (1) ity of ) 100 MG 00:00: 00:00 [place]S) [place] 00 :00 BY MOUTH MD EVERY Anderso TWELVE n HOURS. [facility] insulin 2022-2022- No 5U Inject 5 Unive rs lispro [...] so insulin pen times a n day. [facility] TAKE ONE 2021-02 No 25 (1) [...] MD 200 mcg DAILY. [place] tablet n [facility] levothyroxi 2021-02 Yes TAKE ONE Un shireen ne 1-29 (1) ity of (SYNTHROID, 00:00: TABLET(S) [place] LEVOTHROID) 00 BY MOUTH MD 200 mcg DAILY. Anderso tablet n [facility] levothyroxi 2021-02 Yes TAKE ONE Un [...] 2021-02 Yes TAKE ONE Un shireen ne 03-24 (1) ity of (SYNTHROID, 00:00: TABLET(S) [place] LEVOTHROID) 00 BY MOUTH 200 mcg DAILY. Anderso tablet [facility] levothyroxi 2021-02 Yes TAKE ONE Un shireen ne 03-24 (1) ity of (SYNTHROID, 00:00: TABLET(S) [place] LEVOTHROID) 00 BY MOUTH 200 mcg DAILY. Anderso tablet [facility] INJECT 2021-02 No UNDER THE 03-24 SKIN BEFORE 00:00: MEALS 00 DIRECTED. MAX DAILY DOSE IS 50 UNITS PER DAY. insulin 2022- No 30U 30 Units Unive rs degludec 06-29 daily. ity of 100 unit/mL 00:00: 00:00 [place] (3 mL) 00 :00 MD insulin pen [facility] insulin 2022- No 30U 30 Units Unive rs degludec 06-29 daily. ity of 100 unit/mL 00:00: 00:00 [place] (3 mL) 00 :00 MD insulin pen [facility] insulin 2022- No 30U 30 Units Unive rs degludec 06-29 daily. ity of 100 unit/mL 00:00: 00:00 [place] (3 mL) 00 :00 MD insulin pen [facility] insulin 2022- No 30U 30 Units Unive rs degludec 06-29 daily. ity of 100 unit/mL 00:00: 00:00 [place] (3 mL) 00 :00 MD insulin pen [facility] insulin 2021-2022- No 30U 30 Units Unive rs degludec 06-29 daily. ity of 100 unit/mL 00:00: 00:00 [place] (3 mL) 00 :00 MD insulin pen [facility] insulin 2022- No 30U 30 Units Unive rs degludec 06-29 daily. ity of 100 unit/mL 00:00: 00:00 [place] (3 mL) 00 :00 MD insulin pen [facility] insulin 2022- No 30U 30 Units Unive rs degludec 06-29 daily. ity of 100 unit/mL 00:00: 00:00 [place] (3 mL) 00 :00 MD insulin pen [facility] insulin 2021-0 2022- No 30U 30 Units Unive rs degludec 06-29 daily. ity of 100 unit/mL 00:00: 00:00 [place] (3 mL) 00 :00 MD insulin pen [facility] insulin 2021-0 2022- No 30U 30 Units Unive rs degludec 06-29 daily. ity of 100 unit/mL 00:00: 00:00 [place] (3 mL) 00 :00 MD insulin pen [facility] insulin 2021-0 2022- No 30U 30 Units Unive rs degludec 06-29 daily. ity of 100 unit/mL 00:00: 00:00 [place] (3 mL) 00 :00 MD insulin pen [facility] insulin 2021-0 2022- No 30U 30 Units Unive rs degludec 06-29 daily. ity of 100 unit/mL 00:00: 00:00 [place] (3 mL) 00 :00 MD insulin pen [facility] insulin 2021-2022- No 30U 30 Units Unive rs degludec 06-29 daily. ity of 100 unit/mL 00:00: 00:00 [place] (3 mL) 00 :00 MD insulin pen [facility] insulin 2021-2022- No 30U 30 Units Unive rs degludec 06-29 daily. ity of 100 unit/mL 00:00: 00:00 [place] (3 mL) 00 :00 MD insulin pen [facility] insulin 2021-0 2022- No 30U 30 Units Unive rs degludec 06-29 daily. ity of 100 unit/mL 00:00: 00:00 [place] (3 mL) 00 :00 MD insulin pen [facility] insulin 2021-2022- No 30U 30 Units Unive rs degludec 06-29 daily. ity of 100 unit/mL 00:00: 00:00 [place] (3 mL) 00 :00 insulin pen [facility] insulin 30U 30 Units Unive rs degludec 06-29 daily. ity of 100 unit/mL 00:00: 00:00 [place] (3 mL) 00 :00 insulin pen [facility] Vital Signs Vital Name Observation Time Observation Value Comments Source Systolic blood 2022-07-15 18:30:14 108 mm[Hg] Univer sity of pressure [facility] Diastolic blood 2022-07-15 18:30:14 73 mm[Hg] Unive rsity of pressure [facility] Heart rate 2022-07-15 18:30:14 83 /min Universi ty of [facility] Body temperature 2022-07-15 18:30:14 36.89 [place] Univ ersity [place] [facility] Respiratory rate 2022-07-15 18:30:14 18 /min Univ ersity of [facility] Body weight 2022-07-15 18:30:14 45.85 kg Universi ty of [facility] BMI 2022-07-15 18:30:14 19.98 kg/m2 [facility]i ty of [facility] Oxygen saturation in 2022-07-15 18:30:14 98 /min University of Arterial blood by Toby houon Pulse oximetry [facility] Systolic blood 2022-04-02 17:11:00 95 mm[Hg] Univer sity of pressure [facility] Diastolic blood 2022-04-02 17:11:00 63 mm[Hg] Unive rsity of pressure [facility] Heart rate 2022-04-02 17:11:00 109 /min Universi ty of [facility] Body temperature 2022-04-02 17:11:00 36.83 [place] Univ ersity [place] [facility] Respiratory rate 2022-04-02 17:11:00 17 /min Univ ersKirill [facility] Oxygen saturation in 2022-04-02 17:11:00 99 /min [facility] of Arterial blood by Toby justice Pulse oximetry [facility] Body weight 2022-04-02 12:01:00 43.5 kg [facility] MD Brambila on [facility] BMI 2022-04-02 12:01:00 18.95 kg/m2 [facility] MD Brambila on [facility] Body height 2022-03-30 00:51:00 151.5 cm [facility] MD Brambila on [facility] BP Systolic 2022-03-11 11:52:00 120 mm[Hg] [...] ECHOCARDIOGRAM 2D COMPLETE 2022-07-26 16:17:49 Megan Kapadia [facility] COMPLETE BLOOD COUNT W/ 2022-07-26 15:26:00 Megan Kapadia [facility] [place] DIFFERENTIAL [facility] COMPREHENSIVE METABOLIC 2022-07-26 15:26:00 Megan Kapadia [facility] [place] PANEL [facility] LIPID PANEL 2022-07-26 15:26:00 Megan Kapadia [facility] CARDIAC PANEL 2022-07-26 15:26:00 Megan Kapadia [facility] NT PRO BNP 2022-07-26 15:26:00 Megan Kapadia [facility] FREE THYROXINE 2022-07-26 15:26:00 Megan Kapadia [facility] Results CBC 2022-07-26 15:26:00 Megan Kapadia [facility] MANUAL DIFFERENTIAL 2022-07-26 15:26:00 Megan Kapadia [facility] GLUCOSE LEVEL 2022-07-26 15:26:00 Megan Kapadia [facility] BLOOD UREA NITROGEN 2022-07-26 15:26:00 Megan Kapadia [facility] ELECTROLYTE PANEL 2022-07-26 15:26:00 Megan Kapadia [facility] SERUM CREATININE 2022-07-26 15:26:00 Megan Kapadia [facility] .GLOMERULAR FILTRATION 2022-07-26 15:26:00 Megan Kapadia [facility] CALCIUM LEVEL TOTAL 2022-07-26 15:26:00 Megan Kapadia [facility] ALBUMIN LEVEL 2022-07-26 15:26:00 Megan Kapadia [facility] ALKALINE PHOSPHATASE 2022-07-26 15:26:00 Megan Kapadia [facility] ALANINE AMINOTRANSFERASE 2022-07-26 15:26:00 [facility] ASPARTATE AMINOTRANSFERASE 2022-07-26 15:26:00 Megan Kapadia [facility] TOTAL PROTEIN 2022-07-26 15:26:00 Megan Kapadia [facility] FRACTIONATED BILIRUBIN 2022-07-26 15:26:00 Megan Kapadia [facility] EKG, 12-LEAD (SCHEDULED) 2022-07-15 00:00:00 Megan [facility] SOFT TISSUE NECK W 2022-04-12 20:09:00 Johnson Ann [facility] CONTRAST [facility] CT CHEST W CONTRAST 2022-04-12 20:09:[address] [facility] POC GLUCOSE SCREEN 2022-04-02 14:17:00 Renard Carpenter [facility] Satya Lambert [facility] PROTHROMBIN TIME 2022-04-02 13:05:00 Kiara Shah [facility] HEPATIC FUNCTION PANEL 2022-04-02 13:05:00 Kiara Shah [facility] COMPLETE BLOOD COUNT W/ 2022-04-02 13:05:00 Kiara Shah [facility] DIFFERENTIAL [facility] MAGNESIUM LEVEL 2022-04-02 13:05:00 Kiara Shah [facility] BASIC METABOLIC PANEL, 2022-04-02 13:05:00 Kiara Shah [facility] CALCIUM IONIZED [facility] PHOSPHORUS LEVEL 2022-04-02 13:05:00 Kiara Shah [facility] ALBUMIN LEVEL 2022-04-02 13:05:00 Kiara Shah [facility] ALKALINE PHOSPHATASE 2022-04-02 13:05:00 Kiara Shah [facility] ALANINE AMINOTRANSFERASE 2022-04-02 13:05:00 [facility] AMINOTRANSFERASE 2022-04-02 13:05:00 Kiara Shah [facility] TOTAL PROTEIN 2022-04-02 13:05:00 [facility] BILIRUBIN 2022-04-02 13:05:00 Kiara Shah [facility] GLUCOSE LEVEL 2022-04-02 13:05:00 Kiara Shah [facility] BLOOD UREA NITROGEN 2022-04-02 13:05:00 Kiara Shah [facility] ELECTROLYTE PANEL 2022-04-02 13:05:00 Kiara Shah [facility] SERUM CREATININE 2022-04-02 13:05:00 Jose [facility] .GLOMERULAR FILTRATION 2022-04-02 13:05:00 Kiara Shah [facility] Results CBC 2022-04-02 13:05:00 [facility] MANUAL DIFFERENTIAL 2022-04-02 13:05:00 Kiara Shah [facility] CALCIUM IONIZED, VENOUS 2022-04-02 13:01:00 Kiara Shah [facility] POC GLUCOSE SCREEN 2022-04-02 04:20:00 Kiara Shah Universi ty [facility] Center POC GLUCOSE SCREEN 2022-04-01 23:38:00 Pablo Kiara [facility] GENERAL LABORATORY ADD ON 2022-04-01 22:14:00 Ry Noe [facility] POC GLUCOSE SCREEN 2022-04-01 18:18:00 Pablo Kiara Universi ty [facility] er Center POC GLUCOSE SCREEN 2022-04-01 16:39:00 Pablo Kiara [facility] POC GLUCOSE SCREEN 2022-04-01 15:12:00 Kiara Shah [facility] PROTHROMBIN TIME 2022-04-01 14:09:00 [facility] HEPATIC FUNCTION PANEL 2022-04-01 14:09:00 Kiara Shah [facility] COMPLETE BLOOD COUNT W/ 2022-04-01 14:09:00 Kiara Shah [facility] MAGNESIUM LEVEL 2022-04-01 14:09:00 [facility] BASIC METABOLIC PANEL, 2022-04-01 14:09:00 Kiara Shah [facility] CALCIUM IONIZED [facility] PHOSPHORUS LEVEL 2022-04-01 14:09:00 [facility] TYPE AND SCREEN 2022-04-01 14:09:00 [facility] ALBUMIN LEVEL 2022-04-01 14:09:00 Jose [facility] ALKALINE PHOSPHATASE 2022-04-01 14:09:00 Kiara Shah [facility] ALANINE AMINOTRANSFERASE 2022-04-01 14:09:00 [facility] ASPARTATE AMINOTRANSFERASE 2022-04-01 14:09:00 [facility] TOTAL PROTEIN 2022-04-01 14:09:00 [facility] FRACTIONATED BILIRUBIN 2022-04-01 14:09:00 Kiara Shah [facility] GLUCOSE LEVEL 2022-04-01 14:09:00 Pablo [facility] BLOOD UREA NITROGEN 2022-04-01 14:09:00 Kiara Shah [facility] [place] ELECTROLYTE PANEL 2022-04-01 14:09:00 Kiara Shah [facility] SERUM CREATININE 2022-04-01 14:09:00 [facility] .GLOMERULAR FILTRATION 2022-04-01 14:09:00 Kiara Shah [facility] CBC 2022-04-01 14:09:00 Kiara Shah [facility] [place] MANUAL DIFFERENTIAL 2022-04-01 14:09:00 Kiara Shah [facility] CALCIUM IONIZED, VENOUS 2022-04-01 14:09:00 Kiara Shah [facility] [place] ABORH 2022-04-01 14:09:00 [facility] [place] ANTIBODY SCREEN 2022-04-01 14:09:00 [facility] [place] CLOT EXPIRATION DATE 2022-04-01 14:09:00 Kiara Shah [facility] [place] TMP INTERPRETATION 2022-04-01 14:09:00 Kiara Shah [facility] ANTIBODY SCREEN NEGATIVE [facility] HEMOGLOBIN A1C 2022-04-01 14:09:00 Kiara Shah [facility] [place] OSCILLATORY PEP 2022-04-01 14:00:14 [facility] [place] POC GLUCOSE SCREEN 2022-04-01 03:10:00 Kiara Shah [facility] [place] OSCILLATORY PEP 2022-04-01 02:00:15 [facility] [place] POC GLUCOSE SCREEN 2022-03-31 23:54:00 Kiara Shah [facility] [place] OSCILLATORY PEP 2022-03-31 20:01:02 [facility] POC GLUCOSE SCREEN 2022-03-31 19:18:00 Kiara Shah [facility] OSCILLATORY PEP 2022-03-31 15:26:44 Pablo [facility] POC GLUCOSE SCREEN 2022-03-31 14:53:00 Kiara Shah [facility] PROTHROMBIN TIME 2022-03-31 12:16:00 [facility] HEPATIC FUNCTION PANEL 2022-03-31 12:16:00 Kiara Shah [facility] COMPLETE BLOOD COUNT W/ 2022-03-31 12:16:00 Kiara Shah [facility] MAGNESIUM LEVEL 2022-03-31 12:16:00 [facility] BASIC METABOLIC PANEL, 2022-03-31 12:16:00 Kiara Shah [facility] CALCIUM IONIZED [facility] PHOSPHORUS LEVEL 2022-03-31 12:16:00 [facility] ALBUMIN LEVEL 2022-03-31 12:16:00 Kiara Shah [facility] ALKALINE PHOSPHATASE 2022-03-31 12:16:00 [facility] ALANINE AMINOTRANSFERASE 2022-03-31 12:16:00 Kiara [facility] ASPARTATE AMINOTRANSFERASE 2022-03-31 12:16:00 [facility] TOTAL PROTEIN 2022-03-31 12:16:00 [facility] FRACTIONATED BILIRUBIN 2022-03-31 12:16:00 Kiara Shah [facility] [place] GLUCOSE LEVEL 2022-03-31 12:16:00 Kiara Shah [facility] [place] BLOOD UREA NITROGEN 2022-03-31 12:16:00 Kiara Shah Univers ity [facility] [place] ELECTROLYTE PANEL 2022-03-31 12:16:00 Kiara Shahit y [facility] [place] SERUM CREATININE 2022-03-31 12:16:00 [facility] [place] .GLOMERULAR FILTRATION 2022-03-31 12:16:00 Ana Shahsa [facility] [place] Results CBC 2022-03-31 12:16:00 [facility] MANUAL DIFFERENTIAL 2022-03-31 12:16:00 Kiara Shah [facility] ity [facility] [place] CALCIUM IONIZED, VENOUS 2022-03-31 12:16:00 Kiara Shah Uni versity of [facility] er Center POC GLUCOSE SCREEN 2022-03-31 04:42:00 Pablo Kiara Universi ty of [facility] er Center POC GLUCOSE SCREEN 2022-03-31 02:03:00 Pablo Kiara Universi ty of [facility] er Center POC GLUCOSE SCREEN 2022-03-31 00:00:00 Pablo Kiara Universi ty of [facility] er Center PICC/NON-TUNNELED CVAD 2022-03-30 19:37:03 Kiara Shah Univ ersity of [facility] er Center POC GLUCOSE SCREEN 2022-03-30 19:33:00 Pablo Kiara Universi ty of [facility] er Center POC CRITICAL 2022-03-30 19:30:00 Ana Shahsa [facility] er Center POC GLUCOSE SCREEN 2022-03-30 19:30:00 Pablo Kiara Universi ty of [facility] er Center POC GLUCOSE SCREEN 2022-03-30 15:59:00 [facility] 2022-03-30 14:00:06 Pablo [facility] BASIC METABOLIC PANEL, 2022-03-30 13:36:00 Kiara Shah [facility] CALCIUM IONIZED [facility] PHOSPHORUS LEVEL 2022-03-30 13:36:00 Pablo [facility] MAGNESIUM LEVEL 2022-03-30 13:36:00 Pablo [facility] PROTHROMBIN TIME 2022-03-30 13:36:00 Pablo [facility] APTT 2022-03-30 13:36:00 Pablo [facility] COMPLETE BLOOD COUNT W/ 2022-03-30 13:36:00 Kiara Shah Uni versity [facility] DIFFERENTIAL [facility] GLUCOSE LEVEL 2022-03-30 13:36:00 [facility] BLOOD UREA NITROGEN 2022-03-30 13:36:00 Kiara Shah [facility] ELECTROLYTE PANEL 2022-03-30 13:36:00 Kiara Shahit y [facility] SERUM CREATININE 2022-03-30 13:36:00 Pablo [facility] .GLOMERULAR FILTRATION 2022-03-30 13:36:00 Kiara Shah [facility] RATE [facility] CALCIUM IONIZED, VENOUS 2022-03-30 13:36:00 Jose [facility] CBC 2022-03-30 13:36:00 [facility] MANUAL DIFFERENTIAL 2022-03-30 13:36:00 [facility] 2022-03-30 13:36:00 Pablo [facility] ALKALINE PHOSPHATASE 2022-03-30 13:36:00 Kiara Shah [facility] ALANINE AMINOTRANSFERASE 2022-03-30 13:36:00 Kiara [facility] ASPARTATE AMINOTRANSFERASE 2022-03-30 13:36:00 Pablo [facility] TOTAL PROTEIN 2022-03-30 13:36:00 Pablo [facility] FRACTIONATED BILIRUBIN 2022-03-30 13:36:[address] [facility] POC GLUCOSE SCREEN 2022-03-30 11:52:00 Pablo [facility] POC GLUCOSE SCREEN 2022-03-30 04:16:00 Pablo [facility] OSCILLATORY PEP 2022-03-30 02:00:12 Pablo [facility] BASIC METABOLIC PANEL, 2022-03-29 23:38:00 Pablo [facility] CALCIUM IONIZED [facility] PHOSPHORUS LEVEL 2022-03-29 23:38:00 Pablo [facility] MAGNESIUM LEVEL 2022-03-29 23:38:00 Pablo [facility] GLUCOSE LEVEL 2022-03-29 23:38:[address] [facility] BLOOD UREA NITROGEN 2022-03-29 23:38:00 Satya Gonzalez [facility] ELECTROLYTE PANEL 2022-03-29 23:38:00 Satya Gonzalez [facility] SERUM CREATININE 2022-03-29 23:38:00 Satya Gonzalez [facility] .GLOMERULAR FILTRATION 2022-03-29 23:38:00 Satya Gonzalez [facility] CALCIUM IONIZED, VENOUS 2022-03-29 23:38:00 Satya Gonzalez [facility] POC GLUCOSE SCREEN 2022-03-29 23:21:00 Pablo [facility] OSCILLATORY PEP 2022-03-29 22:00:05 Pablo [facility] OSCILLATORY PEP 2022-03-29 18:00:15 Pablo [facility] POC GLUCOSE SCREEN 2022-03-29 17:15:00 Pablo [facility] TYPE AND SCREEN 2022-03-29 16:16:00 Pablo [facility] ARTERIAL BLOOD GAS 2022-03-29 16:16:00 Pablo [facility] BASIC METABOLIC PANEL, 2022-03-29 16:16:00 Kiara Shah [facility] CALCIUM IONIZED [facility] LACTIC ACID, VENOUS 2022-03-29 16:16:00 Pablo [facility] PHOSPHORUS LEVEL 2022-03-29 16:16:00 Pablo [facility] MAGNESIUM LEVEL 2022-03-29 16:16:00 Pablo [facility] ABORH 2022-03-29 16:16:00 [facility]TIBODY SCREEN 2022-03-29 16:16[facility]00 [facility] GLUCOSE LEVEL 2022-03-29 16:16:[address] [facility] BLOOD UREA NITROGEN 2022-03-29 16:16:00 Satya Gonzalez [facility] ELECTROLYTE PANEL 2022-03-29 16:16:00 Satya Gonzalez [facility] SERUM CREATININE 2022-03-29 16:16:00 Satya Gonzalez [facility] .GLOMERULAR FILTRATION 2022-03-29 16:16:00 Satya Gonzalez [facility] CALCIUM IONIZED, VENOUS 2022-03-29 16:16:00 Satya Gonzalez [facility] TMP INTERPRETATION 2022-03-29 16:16:00 [facility] NEGATIVE MD Meier flaco [facility] CLOT EXPIRATION DATE 2022-03-29 16:16:00 Ellie Tay [facility] POC GLUCOSE SCREEN 2022-03-29 14:07:00 Pablo Kiara [facility] OSCILLATORY PEP 2022-03-29 14:00:07 Pablo [facility] POC GLUCOSE SCREEN 2022-03-29 11:16:00 Pablo Kiara [facility] XR CHEST 1 VW PORTABLE 2022-03-29 07:42:48 Pablo Kiara [facility] ARTERIAL BLOOD GAS 2022-03-29 06:44:00 Pablo Kiara [facility] BASIC METABOLIC PANEL, 2022-03-29 06:44:00 Pablo Kiara [facility] CALCIUM IONIZED [facility] LACTIC ACID, VENOUS 2022-03-29 06:44:00 Kiara Shah [facility] PHOSPHORUS LEVEL 2022-03-29 06:44:00 Pablo [facility] MAGNESIUM LEVEL 2022-03-29 06:44:00 Kiara Shah [facility] PROTHROMBIN TIME 2022-03-29 06:44:00 Pablo [facility] APTT 2022-03-29 06:44:00 Pablo [facility] HEPATIC FUNCTION PANEL 2022-03-29 06:44:00 Kiara Shah [facility] COMPLETE BLOOD COUNT W/ 2022-03-29 06:44:00 Kiara Shah [facility] GLUCOSE LEVEL 2022-03-29 06:44:[address] [facility] BLOOD UREA NITROGEN 2022-03-29 06:44:00 Satya Gonzalez [facility] ELECTROLYTE PANEL 2022-03-29 06:44:00 Satya Gonzalez [facility] SERUM CREATININE 2022-03-29 06:44:00 Satya Gonzalez [facility] .GLOMERULAR FILTRATION 2022-03-29 06:44:00 Satya Gonzalez [facility] CALCIUM IONIZED, VENOUS 2022-03-29 06:44:00 Satya Gonzalez [facility] ALBUMIN LEVEL 2022-03-29 06:44:[address] [facility] ALKALINE PHOSPHATASE 2022-03-29 06:44:00 Satya Gonzalez [facility] ALANINE AMINOTRANSFERASE 2022-03-29 06:44:00 Satya Gonzalez [facility] ASPARTATE AMINOTRANSFERASE 2022-03-29 06:44:00 Satya Gonzalez [facility] TOTAL PROTEIN 2022-03-29 06:44:[address] [facility] FRACTIONATED BILIRUBIN 2022-03-29 06:44:00 Satya Gonzalez [facility] Results CBC 2022-03-29 06:44:00 [facility] MANUAL DIFFERENTIAL 2022-03-29 06:44:[address] [facility] POC GLUCOSE SCREEN 2022-03-29 05:26:00 Pablo [facility] POC GLUCOSE SCREEN 2022-03-29 02:13:00 Pablo [facility] OSCILLATORY PEP 2022-03-29 02:00:13 Pablo [facility] ARTERIAL BLOOD GAS 2022-03-28 23:44:00 Pablo [facility] BASIC METABOLIC PANEL, 2022-03-28 23:44:00 Pablo [facility] CALCIUM IONIZED [facility] LACTIC ACID, VENOUS 2022-03-28 23:44:00 Pablo Kiara [facility] PHOSPHORUS LEVEL 2022-03-28 23:44:00 Pablo [facility] MAGNESIUM LEVEL 2022-03-28 23:44:00 Pablo [facility] GLUCOSE LEVEL 2022-03-28 23:44:[address] [facility] BLOOD UREA NITROGEN 2022-03-28 23:44:00 Satya Gonzalez [facility] ELECTROLYTE PANEL 2022-03-28 23:44:00 Satya Gonzalez [facility] SERUM CREATININE 2022-03-28 23:44:00 Satya Gonzalez [facility] .GLOMERULAR FILTRATION 2022-03-28 23:44:00 Satya Gonzalez [facility] CALCIUM IONIZED, VENOUS 2022-03-28 23:44:00 Satya Gonzalez [facility] POC GLUCOSE SCREEN 2022-03-28 22:56:00 Kiara Shah [facility] OSCILLATORY PEP 2022-03-28 22:00:05 Pablo [facility] OSCILLATORY PEP 2022-03-28 20:07:57 Pablo [facility] VANCOMYCIN LEVEL TROUGH 2022-03-28 17:50:00 Nathaniel Montes [facility] CALCIUM IONIZED, VENOUS 2022-03-28 17:50:00 Kiara Shah [facility] ARTERIAL BLOOD GAS 2022-03-28 17:50:00 Pablo [facility] POC GLUCOSE SCREEN 2022-03-28 17:43:00 [facility] BASIC METABOLIC PANEL, 2022-03-28 16:22:00 Kiara Shah [facility] CALCIUM IONIZED [facility] PHOSPHORUS LEVEL 2022-03-28 16:22:00 Pablo [facility] MAGNESIUM LEVEL 2022-03-28 16:22:00 Pablo [facility] GLUCOSE LEVEL 2022-03-28 16:22:[address] [facility] BLOOD UREA NITROGEN 2022-03-28 16:22:00 Satya Gonzalez [facility] ELECTROLYTE PANEL 2022-03-28 16:22:00 Satya Gonzalez [facility] SERUM CREATININE 2022-03-28 16:22:00 Satya Gonzalez [facility] .GLOMERULAR FILTRATION 2022-03-28 16:22:00 Satya Gonzalez [facility] RATE [facility] ECHOCARDIOGRAM 2D LIMITED 2022-03-28 14:20:21 Megan Kapadia [facility] - FOLLOW UP [facility] POC GLUCOSE SCREEN 2022-03-28 11:53:00 Pablo Kiara [facility] XR CHEST 1 VW PORTABLE 2022-03-28 08:30:51 Pablo Kiara [facility] ARTERIAL BLOOD GAS 2022-03-28 06:48:00 Pablo Kiara [facility] BASIC METABOLIC PANEL, 2022-03-28 06:48:00 Jose Daniel Shahyssa [facility] CALCIUM IONIZED [facility] LACTIC ACID, VENOUS 2022-03-28 06:48:00 Kiara Shah [facility] PHOSPHORUS LEVEL 2022-03-28 06:48:00 Pablo [facility] MAGNESIUM LEVEL 2022-03-28 06:48:00 Pablo [facility] PROTHROMBIN TIME 2022-03-28 06:48:00 Pablo [facility] APTT 2022-03-28 06:48:00 Pablo [facility] HEPATIC FUNCTION PANEL 2022-03-28 06:48:00 Kiara Shah [facility] COMPLETE BLOOD COUNT W/ 2022-03-28 06:48:00 Kiara Shah [facility] DIFFERENTIAL [facility] GLUCOSE LEVEL 2022-03-28 06:48:[address] [facility] BLOOD UREA NITROGEN 2022-03-28 06:48:00 Satya Gonzalez [facility] ELECTROLYTE PANEL 2022-03-28 06:48:00 Satya Gonzalez [facility] SERUM CREATININE 2022-03-28 06:48:00 Satya Gonzalez [facility] .GLOMERULAR FILTRATION 2022-03-28 06:48:00 Satya Gonzalez [facility] CALCIUM IONIZED, VENOUS 2022-03-28 06:48:00 Satya Gonzalez [facility] ALBUMIN LEVEL 2022-03-28 06:48:[address] [facility] ALKALINE PHOSPHATASE 2022-03-28 06:48:00 Satya Gonzalez [facility] ALANINE AMINOTRANSFERASE 2022-03-28 06:48:00 Satya Gonzalez [facility] ASPARTATE AMINOTRANSFERASE 2022-03-28 06:48:00 Satya Gonzalez [facility] TOTAL PROTEIN 2022-03-28 06:48:[address] [facility] FRACTIONATED BILIRUBIN 2022-03-28 06:48:00 Satya Gonzalez [facility] Results CBC 2022-03-28 06:48:00 Darion Doherty [facility] MANUAL DIFFERENTIAL 2022-03-28 06:48:[address] [facility] POC GLUCOSE SCREEN 2022-03-28 05:26:00 Pablo Kiara [facility] POC GLUCOSE SCREEN 2022-03-27 23:38:00 Pablo Kiara [facility] ARTERIAL BLOOD GAS 2022-03-27 23:36:00 Pablo Kiara [facility] BASIC METABOLIC PANEL, 2022-03-27 23:36:00 Kiara Shah [facility] CALCIUM IONIZED [facility] LACTIC ACID, VENOUS 2022-03-27 23:36:00 Kiara Shah [facility] PHOSPHORUS LEVEL 2022-03-27 23:36:00 Pablo [facility] MAGNESIUM LEVEL 2022-03-27 23:36:00 Pablo [facility] GLUCOSE LEVEL 2022-03-27 23:36:[address] [facility] BLOOD UREA NITROGEN 2022-03-27 23:36:00 Satya Gonzalez [facility] ELECTROLYTE PANEL 2022-03-27 23:36:00 Satya Gonzalez [facility] SERUM CREATININE 2022-03-27 23:36:00 Satya Gonzalez [facility] .GLOMERULAR FILTRATION 2022-03-27 23:36:00 Satya Gonzalez [facility] CALCIUM IONIZED, VENOUS 2022-03-27 23:36:00 Satya Gonzalez [facility] US RENAL 2022-03-27 21:52:48 Vanessa [facility] POC GLUCOSE SCREEN 2022-03-27 17:47:00 Kiara Shah [facility] ARTERIAL BLOOD GAS 2022-03-27 16:19:00 Pablo Kiara [facility] BASIC METABOLIC PANEL, 2022-03-27 16:19:00 Kiara Shah [facility] CALCIUM IONIZED [facility] LACTIC ACID, VENOUS 2022-03-27 16:19:00 Kiara Shah [facility] PHOSPHORUS LEVEL 2022-03-27 16:19:00 Pablo [facility] MAGNESIUM LEVEL 2022-03-27 16:19:00 Kiara Shah [facility] GLUCOSE LEVEL 2022-03-27 16:19:[address] [facility] BLOOD UREA NITROGEN 2022-03-27 16:19:00 Satya Gonzalez [facility] ELECTROLYTE PANEL 2022-03-27 16:19:00 Satya Gonzalez [facility] SERUM CREATININE 2022-03-27 16:19:00 Satya Gonzalez [facility] .GLOMERULAR FILTRATION 2022-03-27 16:19:00 Satya Gonzalez [facility] CALCIUM IONIZED, VENOUS 2022-03-27 16:19:00 Satya Gonzalez [facility] ARTERIAL BLOOD GAS 2022-03-27 14:32:00 Martínez Mendez [facility] POC GLUCOSE SCREEN 2022-03-27 13:27:00 Kiara Shah [facility] POC GLUCOSE SCREEN 2022-03-27 11:52:00 Pablo Kiara [facility] POC GLUCOSE SCREEN 2022-03-27 10:58:00 Kiara Shah [facility] POC GLUCOSE SCREEN 2022-03-27 10:06:00 Pablo Kiara [facility] VANCOMYCIN LEVEL TROUGH 2022-03-27 09:30:00 Ellie Tay [facility] POC GLUCOSE SCREEN 2022-03-27 09:06:00 [facility] XR CHEST 1 VW PORTABLE 2022-03-27 08:50:25 Kiara Shah [facility] COMPLETE BLOOD COUNT W/ 2022-03-27 08:16:00 Kiara Shah [facility] Results CBC 2022-03-27 08:16:00 Florencia DohertyVeronica [facility] MANUAL DIFFERENTIAL 2022-03-27 08:16:[address] [facility] POC GLUCOSE SCREEN 2022-03-27 08:03:00 [facility] 2022-03-27 07:36[facility]00 [facility]LO[facility]AS 2022-03-27 07:36:00 Pablo [facility] BASIC METABOLIC PANEL, 2022-03-27 07:36:00 Kiara Shah [facility] CALCIUM IONIZED [facility] LACTIC ACID, VENOUS 2022-03-27 07:36:00 Kiara Shah [facility] PHOSPHORUS LEVEL 2022-03-27 07:36:00 Pablo [facility] MAGNESIUM LEVEL 2022-03-27 07:36:00 Pablo [facility] PROTHROMBIN TIME 2022-03-27 07:36:00 Pablo [facility] APTT 2022-03-27 07:36:00 Pablo [facility] HEPATIC FUNCTION PANEL 2022-03-27 07:36:00 [facility] GLUCOSE LEVEL 2022-03-27 07:36:[address] [facility] BLOOD UREA NITROGEN 2022-03-27 07:36:00 Satya Gonzalez [facility] ELECTROLYTE PANEL 2022-03-27 07:36:00 Satya Gonzalez [facility] SERUM CREATININE 2022-03-27 07:36:00 Satya Gonzalez [facility] .GLOMERULAR FILTRATION 2022-03-27 07:36:00 Satya Gonzalez [facility] CALCIUM IONIZED, VENOUS 2022-03-27 07:36:00 Satya Gonzalez [facility] ALBUMIN LEVEL 2022-03-27 07:36:00 [facility] ALKALINE PHOSPHATASE 2022-03-27 07:36:00 Satya Gonzalez [facility] ALANINE AMINOTRANSFERASE 2022-03-27 07:36:00 Satya Gonzalez [facility] ASPARTATE AMINOTRANSFERASE 2022-03-27 07:36:00 Satya Gonzalez [facility] TOTAL PROTEIN 2022-03-27 07:36:00 [facility] FRACTIONATED BILIRUBIN 2022-03-27 07:36:00 Satya Gonzalez [facility] POC GLUCOSE SCREEN 2022-03-27 07:03:00 Pablo Kiara [facility] POC GLUCOSE SCREEN 2022-03-27 05:49:00 Pablo Kiara [facility] POC GLUCOSE SCREEN 2022-03-27 04:33:00 Pablo Kiara [facility] POC GLUCOSE SCREEN 2022-03-27 03:30:00 Pablo Kiara [facility] POC GLUCOSE SCREEN 2022-03-27 02:33:00 Pablo Kiara [facility] POC GLUCOSE SCREEN 2022-03-27 01:33:00 Pablo Kiara [facility] POC GLUCOSE SCREEN 2022-03-27 00:35:00 Kiara Shah [facility] ARTERIAL BLOOD GAS 2022-03-26 23:20:00 [facility] BASIC METABOLIC PANEL, 2022-03-26 23:20:00 Kiara Shah [facility] CALCIUM IONIZED [facility] LACTIC ACID, VENOUS 2022-03-26 23:20:00 Kiara Shah [facility] PHOSPHORUS LEVEL 2022-03-26 23:20:00 Pablo [facility] MAGNESIUM LEVEL 2022-03-26 23:20:00 Pablo [facility] GLUCOSE LEVEL 2022-03-26 23:20:[address] [facility] BLOOD UREA NITROGEN 2022-03-26 23:20:00 Satya Gonzalez [facility] ELECTROLYTE PANEL 2022-03-26 23:20:00 Satya Gonzalez [facility] SERUM CREATININE 2022-03-26 23:20:00 Satya Gonzalez [facility] .GLOMERULAR FILTRATION 2022-03-26 23:20:00 Satya Gonzalez [facility] CALCIUM IONIZED, VENOUS 2022-03-26 23:20:00 Satya Gonzalez [facility] POC GLUCOSE SCREEN 2022-03-26 22:10:00 Pablo Kiara [facility] CARDIAC PANEL 2022-03-26 21:50:00 Ellie Tay [place] [facility] ARTERIAL BLOOD GAS 2022-03-26 21:50:00 Satya Gonzalez [facility] POC GLUCOSE SCREEN 2022-03-26 21:06:00 Pablo Kiara [facility] POC GLUCOSE SCREEN 2022-03-26 20:02:00 Kiara Shah [facility] BLOODCULTURE 2022-03-26 19:31:[address] [facility] ANTINUCLEAR ANTIBODY HEP-2 2022-03-26 19:31:00 Mars Shaw [facility] SUBSTRATE IGG [facility] SEDIMENTATION RATE 2022-03-26 19:31:00 [facility] NON-AUTOMATED [facility] ANCA PANEL FOR VASCULITIS, 2022-03-26 19:31:00 Mars Shaw [facility] SERUM [facility] C REACTIVE PROTEIN 2022-03-26 19:31:00 [facility] PROCALCITONIN 2022-03-26 19:31:[address] [facility] LACTIC ACID, VENOUS 2022-03-26 19:31:00 Satya Gonzalez [facility] BLOOD CULTURE 2022-03-26 19:31:[address] [facility] VANCOMYCIN LEVEL TROUGH 2022-03-26 18:24:00 Kiara Shah [facility] ECHOCARDIOGRAM 2D COMPLETE 2022-03-26 18:19:26 [facility] PROCEDURE FOR CODING 2022-03-26 17:37:07 Satya Gonzalez [facility] STREPTOCOCCUS PNEUMONIAE 2022-03-26 17:23:00 Ellie Tay [facility] ANTIGEN, URINE [facility] LEGIONELLA ANTIGEN, URINE 2022-03-26 17:23:00 Ell[facility] MRSA SCREENING CULTURE 2022-03-26 17:23:00 Ellie Tay [facility] LEGIONELLA URINE ANTIGEN 2022-03-26 17:23:00 Iwona Samuels [facility] PATH REVIEW [facility] STREPTOCOCCAL URINE 2022-03-26 17:23:00 Iwona Samuels [facility] ANTIGEN PATH REVIEW [facility] STREPTOCOCCUS PNEUMONIAE 2022-03-26 17:23:00 [facility] ANT[facility], URINE [facility] LEGIONELLA ANTIGEN, URINE 2022-03-26 17:23:00 Ellie Tay [facility] MRSA SCREENING CULTURE 2022-03-26 17:23:00 Ellie Tay [facility] POC GLUCOSE SCREEN 2022-03-26 17:21:00 Kiara Shah [facility] ARTERIAL BLOOD GAS 2022-03-26 17:01:00 [facility] 2022-03-26 17:01:00 Satya Gonzalez [facility] FIBRINOGEN ACTIVITY 2022-03-26 17:01:00 Satya Gonzalez [facility] APTT 2022-03-26 17:01:[address] [facility] HC ARTERIAL LINE FOR BP 2022-03-26 16:45:57 Sat[facility] 1 VW 2022-03-26 16:27:00 Ellie Tay [facility] BASIC METABOLIC PANEL, 2022-03-26 16:24:00 Ellie Tay [facility] CALCIUM IONIZED [facility] MAGNESIUM LEVEL 2022-03-26 16:24:00 Ellie Tay [facility] PHOSPHORUS LEVEL 2022-03-26 16:24:00 [facility] 2022-03-26 16:24:00 [facility] PRO BNP 2022-03-26 16:24:00 Jasvir [facility] GLUCOSE LEVEL 2022-03-26 16:24:00 Jasvir [facility] ELECTROLYTE PANEL 2022-03-26 16:24:00 Jasvir [facility] SERUM CREATININE 2022-03-26 16:24:00 Jasvir [facility] .GLOMERULAR FILTRATION 2022-03-26 16:24:00 JasvirEllie pavon [facility] RATE [facility] CALCIUM IONIZED, VENOUS 2022-03-26 16:24:00 [facility] BLOOD UREA NITROGEN 2022-03-26 16:24:[address] [facility] FRYE MISC TEST 2022-03-26 16:24:00 Karin Kapadia [facility] LEGIONELLA CULTURE 2022-03-26 16:17:00 Jasvir [facility] LEGIONELLA CULTURE 2022-03-26 16:17:00 [facility] POC CHEM 8 2022-03-26 16:01:00 Pablo, Kiara [facility] POC CRITICAL 2022-03-26 15:55:00 Pablo, [facility] POC ARTERIAL BLOOD GAS 2022-03-26 15:55:00 PabloKiara martinez [facility] LOWER RESPIRATORY CULTURE 2022-03-26 15:36:00 Ellie Tay [facility] W/ GRAM STAIN [facility] FUNGUS CULTURE 2022-03-26 15:36:00 Jasvir [facility] [employer] CULTURE W/ SMEAR 2022-03-26 15:36:[address] [facility] LOWER RESPIRATORY CULTURE 2022-03-26 15:36:00 [facility] GENERAL LABORATORY ADD ON 2022-03-26 15:23:00 Karin Kapadia [facility] TEST [facility] POC CRITICAL 2022-03-26 15:12:00 Pablo Kiara [facility] POC ARTERIAL BLOOD GAS 2022-03-26 15:12:[address] [facility] CT CHEST PULMONARY 2022-03-26 14:42:07 [facility] EMBOLISM W CONTRAST [facility] [place] ARTERIAL BLOOD GAS 2022-03-26 14:06:00 [facility]LOOD GAS 2022-03-26 11:33:00 Hasmukh [facility] VENOUS BLOOD GAS 2022-03-26 11:28:00 [facility] BLOODCULTURE 2022-03-26 06:25:00 [facility] BASIC METABOLIC PANEL, 2022-03-26 06:25:00 [facility] CAL[facility] TOTAL [facility] COMPLETE BLOOD COUNT W/ 2022-03-26 06:25:00 Ellie Tay [facility] DIFFERENTIAL [facility] MAGNESIUM LEVEL 2022-03-26 06:25:00 Ellie Tay [facility] PHOSPHORUS LEVEL 2022-03-26 06:25:00 Ellie Tay [facility] LACTIC ACID, VENOUS 2022-03-26 06:25:00 Robin Noe [facility] GLUCOSE LEVEL 2022-03-26 06:25:00 Paola Dill [facility] BLOOD UREA NITROGEN 2022-03-26 06:25:00 Paola Dill [facility] ELECTROLYTE PANEL 2022-03-26 06:25:[address] [facility] SERUM CREATININE 2022-03-26 06:25:00 Paola Dill [facility] .GLOMERULAR FILTRATION 2022-03-26 06:25:00 Paola Dill [facility] [place] RATE [facility] CALCIUM LEVEL TOTAL 2022-03-26 06:25:00 Paola Dill [facility] Results CBC 2022-03-26 06:25:00 Arvind [facility] MANUAL DIFFERENTIAL 2022-03-26 06:25:00 Arvind [facility] NT PRO BNP 2022-03-26 06:25:00 Paola Dill [facility] CARDIAC PANEL 2022-03-26 06:25:00 Paola Dill [facility] C-PEPTIDE 2022-03-26 06:25:00 Paola Dill [facility] BLOOD CULTURE 2022-03-26 06:25:00 [facility] XR CHEST 1 VW PORTABLE 2022-03-26 06:01:00 Robin Noe [facility] POC GLUCOSE SCREEN 2022-03-26 04:09:00 Ishan [facility] er Center POC GLUCOSE SCREEN 2022-03-26 01:07:00 Ishan [facility] EKG, 12-LEAD (PORTABLE) 2022-03-26 00:00:00 Satya Gonzalez [facility] POC GLUCOSE SCREEN 2022-03-25 21:46:00 Ishan [facility] [place] POC GLUCOSE SCREEN 2022-03-25 20:05:00 Ishan [facility] US RENAL 2022-03-25 16:19:16 Iwona Samuels [facility] POC GLUCOSE SCREEN 2022-03-25 15:08:00 Magdiel Olmstead [facility] GENERAL LABORATORY ADD ON 2022-03-25 13:20:00 [facility] BASIC METABOLIC PANEL, 2022-03-25 10:45:00 Bud Goldman [facility] CALCIUM TOTAL [facility] GLUCOSE LEVEL 2022-03-25 10:45:00 [facility] BLOOD UREA NITROGEN 2022-03-25 10:45:00 Hanna [facility] ELECTROLYTE PANEL 2022-03-25 10:45:00 Hanna [facility] SERUM CREATININE 2022-03-25 10:45:00 Hanna [facility] .GLOMERULAR FILTRATION 2022-03-25 10:45:00 Bud [facility] RATE [facility] CALCIUM LEVEL TOTAL 2022-03-25 10:45:00 Hanna [facility] MAGNESIUM LEVEL 2022-03-25 10:45:00 [facility] PHOSPHORUS LEVEL 2022-03-25 10:45:00 Hanna [facility] POC GLUCOSE SCREEN 2022-03-25 10:35:00 Bud Goldman [facility] POC ICON 20 URINE 2022-03-25 07:24:00 Paola Dill [facility] TEST [facility] URINE CULTURE 2022-03-25 06:36:00 Paola Dill [facility] URINALYSIS WITH 2022-03-25 06:36:00 Paola Dill [facility] MICROSCOPIC IF INDICATED MD Meier [facility] URINALYSIS MICROSCOPIC 2022-03-25 06:36:00 Paola Dill [facility] [place] EXAM [facility] URINE CULTURE 2022-03-25 06:36:00 Paola Dill [facility] URINALYSIS MICROSCOPIC 2022-03-25 06:36:00 Paola Dill [facility] [place] EXAM [facility] XR CHEST 1 VW 2022-03-25 05:57:34 Paola Dill [facility] CONFIRM ABORH TYPE 2022-03-25 05:29:00 Paola Dill [facility] POC VENOUS BLOOD GAS + 2022-03-25 05:18:00 Paola Dill [facility] LACTATE [facility] BLOODCULTURE 2022-03-25 05:10:00 Paola Dill [facility] RESPIRATORY MULTIPLEX PCR 2022-03-25 05:10:00 Paola Dill [facility] PANEL, NASOPHARYNGEAL SWAB MD Levi [facility] COMPLETE BLOOD COUNT W/ 2022-03-25 05:10:00 Paola Dill [facility] [place] DIFFERENTIAL [facility] COMPREHENSIVE METABOLIC 2022-03-25 05:10:00 Paola Dill [facility] [place] PANEL [facility] MAGNESIUM LEVEL 2022-03-25 05:10:00 Paola Dill [facility] PHOSPHORUS LEVEL 2022-03-25 05:10:00 Paola Dill [facility] PROTHROMBIN TIME 2022-03-25 05:10:00 Paola Dill [facility] APTT 2022-03-25 05:10:00 Paola Dill [facility] TYPE AND SCREEN 2022-03-25 05:10:00 Paola Dill [facility] PROCALCITONIN 2022-03-25 05:10:00 Paola Dill [facility] LACTATE DEHYDROGENASE 2022-03-25 05:10:00 Paola Dill [facility] C REACTIVE PROTEIN 2022-03-25 05:10:00 Paola Dill [facility] Results CBC 2022-03-25 05:10:00 Paola Dill [facility] MANUAL DIFFERENTIAL 2022-03-25 05:10:00 Paola Dill [facility] GLUCOSE LEVEL 2022-03-25 05:10:00 Paola Dill [facility] BLOOD UREA NITROGEN 2022-03-25 05:10:00 Paola Dill [facility] ELECTROLYTE PANEL 2022-03-25 05:10:[address] [facility] SERUM CREATININE 2022-03-25 05:10:00 Paola Dill [facility] .GLOMERULAR FILTRATION 2022-03-25 05:10:[address] [facility] CALCIUM LEVEL TOTAL 2022-03-25 05:10:00 Paola Dill [facility] ALBUMIN LEVEL 2022-03-25 05:10:00 Paola Dill [facility] ALKALINE PHOSPHATASE 2022-03-25 05:10:00 Paola Dill [facility] ALANINE AMINOTRANSFERASE 2022-03-25 05:10:00 Paola Dill [facility] ASPARTATE AMINOTRANSFERASE 2022-03-25 05:10:00 Paola Dill [facility] TOTAL PROTEIN 2022-03-25 05:10:00 Paola Dill [facility] ABORH 2022-03-25 05:10:00 Paola Dill [facility] ANTIBODY SCREEN 2022-03-25 05:10:00 Paola Dill [facility] TMP INTERPRETATION 2022-03-25 05:10:00 Paola Dill [facility] ANTIBODY SCREEN NEGATIVE MD Meier flaco [facility] CLOT EXPIRATION DATE 2022-03-25 05:10:00 [facility] BLOOD CULT[facility] 2022-03-25 05:10:00 Paola Dill [facility] RESPIRATORY MULTIPLEX PCR 2022-03-25 05:10:00 Paola Dill [facility] PANEL, NASOPHARYNGEAL SWAB MD Abril coto [facility] FRACTIONATED BILIRUBIN 2022-03-25 05:10:00 [facility] P[facility] GLUCOSE SCREEN 2022-03-25 04:44:00 Paola Dill [facility] EKG, 12-LEAD (PORTABLE) 2022-03-25 00:00:00 Iwona [facility]els [facility] O[facility] CT ABDOMEN AND PELVIS 2022-03-24 22:15:00 Johnson [facility] MRI THORACIC SPINE W WO 2022-03-15 00:31:00 [facility] [place] CONTRAST [facility] COVID-19 (SARS-COV-2) PCR 2022-03-13 20:16:00 Johnson Ann [facility] COVID-19 (SARS-COV-2) PCR 2022-03-13 20:16:00 Johnson Ann [facility] US HEAD NECK SOFT TISSUE 2022-03-13 20:05:43 Johnson Ann [facility] HEPATITIS C VIRUS ANTIBODY 2022-03-13 18:30:00 Johnson Ann [facility] ALBUMIN LEVEL 2022-03-13 18:30:00 Seth Johnsonwoody [facility] BLOOD UREA NITROGEN 2022-03-13 18:30:00 Johnson [facility]i [facility] CALCIUM LEVEL TOTAL 2022-03-13 18:30:00 Dadermelinda, Johnson [facility] COMPLETE BLOOD COUNT W/ 2022-03-13 18:30:00 Dadu, Johnson Ortiz [facility] DIFFERENTIAL [facility] SERUM CREATININE 2022-03-13 18:30:00 Dadu, [facility] FREE THYROXINE 2022-03-13 18:30:00 Dadu, [facility] MAGNESIUM LEVEL 2022-03-13 18:30:00 Dadu, [facility] PTH INTACT 2022-03-13 18:30:00 Dadu, [facility] PROTHROMBIN TIME 2022-03-13 18:30:00 Dadu, [facility] APTT 2022-03-13 18:30:00 Dadu, [facility] PHOSPHORUS LEVEL 2022-03-13 18:30:00 Dadu, [facility] THYROGLOBULIN ANTIBODY 2022-03-13 18:30:00 Dadermelinda, [facility] THYROID STIMULATING 2022-03-13 18:30:00 Dadermelinda, [facility] HORMONE [facility] VITAMIN D 25 HYDROXY LEVEL 2022-03-13 18:30:00 Johnson [facility] E[facility]ROL[facility] PANEL 2022-03-13 18:30:00 Dadu, [facility] SERUM CREATININE 2022-03-13 18:30:00 Dadu, [facility] .GLOMERULAR FILTRATION 2022-03-13 18:30:00 Seth Johnson [facility] RATE [facility] Results CBC 2022-03-13 18:30:00 Dadu, [facility] MANUAL DIFFERENTIAL 2022-03-13 18:30:00 Dadermelinda, [facility] OSI US THYROID 2022-01-30 19:11:00 [facility] Plan of Care Planned Activity Planned Date Details Comments Source Future Scheduled 2022-12-30 COVID-19 Vaccination [facility] [place] Test 09:11:18 ( season) MD [facility] [code = COVID-19 Center Vaccination ( season)] Future Scheduled 2022-10-28 COVID-19 Vaccination [facility] [place] Test 22:18:12 (3 - Pfizer series) [facility] [code = COVID-19 Center Vaccination (3 - Pfizer series)] Future Scheduled 2022-10-28 COVID-19 Vaccination [facility] [place] Test 22:18:12 (3 - Pfizer series) [facility] [code = COVID-19 Center Vaccination (3 - Pfizer series)] Future Scheduled 2022-10-28 COVID-19 Vaccination [facility] [place] Test 22:18:12 (3 - Pfizer series) [facility] [code = COVID-19 Center Vaccination (3 - Pfizer series)] Future Scheduled 2022-10-02 COVID-19 Vaccination [facility] [place] Test 10:43:59 (3 - Pfizer series) [facility] [...] Goal Plan of Care Note [code = 07626-0] Goal Plan of Care Note [code = 36294-5] Goal Plan of Care Note [code = 64303-6] Goal Plan of Care Note [code = 96491-3] Encounters Start End Encounter Admission Attending Care Care Encounter Source Date/Time Date/Time Type Type Clinicians Facility Department ID 2022-09-[address] [facility] [id number] Common 13:16:01 [id number] [facility] 2022-11-27 2022-11-27 Outpatient SFA SFA Edwin 09:58:52 09:58:52 [id number] [facility] 2022-11-21 2022-11-21 Outpatient SFA SFA Edwin 08:54:11 08:54:11 [id number] [facility] 2022-10-31 2022-10-31 Outpatient SFA SFA Edwin 14:37:03 14:37:03 [id number] [facility] 2022-09-25 2022-09-25 Outpatient SFA SFA Edwin 14:59:48 14:59:48 [id number] [facility] 2022-08-06 2022-08-06 Outpatient SFA SFA Edwin 13:05:28 13:05:28 [id number] [facility] 2022-07-26 2022-07-26 [place] [address].2.840.1 [id number] Univers 10:36:46 23:59:00 Encounter Megan Jorge 86546.1.1 it y of 3.412.2.7 [place] .3.606099 MD Gonzales [facility] 2022-07-26 2022-07-26 [facility] 1.2.840.1 [id number] Univers 10:36:46 23:59:00 Encounter Megan Jorge 58091.1.1 it y of 3.412.2.7 [place] .3.528756 MD Gonzales [facility] 2022-07-26 2022-07-[address]1 [id number] Univers 10:00:00 10:35:00 Encounter Megan Jorge 61185.1.1 it y of 3.412.2.7 [place] .3.506862 MD Gonzales [facility] 2022-07-26 2022-07-26 [facility], 1.2.840.1 [id number] [facility] 10:00:00 10:35:00 Encounter Megan Jorge 07607.1.1 it y of 3.412.2.7 [place] .3.594983 MD Gonzales [facility] 2022-07-26 2022-07-26 Travel 1.2.840.1 1.2.795.454 [id number] Univers 00:00:00 00:00:00 43622.1.1 350.1.13.41 ity of 3[place]412.2.[place].698 [place] .3.354540 084.8 MD Gonzales [facility] 2022-07-26 2022-07-26 Travel 1.2.840.1 1.2.669.753 [id number] Univers 00:00:00 00:00:00 51270.1.1 350.1.13.41 ity of 3.412.2.[place].698 [place] .3.681828 084.Nasir Gonzales [facility] 2022-07-22 2022-07-22 Outpatient [facility] [id number] Edwin 08:27:15 08:27:15 [id number] F [place] 2022-07-15 2022-07-15 [place], 1.2.840.1 [id number] Univers 14:23:57 23:59:00 Encounter Megan Jorge 31958.1.1 it y of 3.412.2.7 [place] .3.391932 MD Gonzales [facility] 2022-07-15 2022-07-15 [facility], 1.2.840.1 [id number] Univers 14:23:57 23:59:00 Encounter Megan Jorge 85325.1.1 it y of 3.412.2.7 [place] .3.437291 MD Gonzales [facility] 2022-07-15 2022-07-15 Follow-Up Kapadia, 1.2.840.1 [id number] Univers 13:20:00 17:46:42 Megan A 94548.1.1 ity of 3.412.2.7 [place] .3.760771 MD Geronimo8 [facility] 2022-07-15 2022-07-15 Follow-Up RADHA Kapadia, 1.2.840.1 [id number] Univers 13:20:00 17:46:42 Megan A 61541.1.1 ity of 3.412.2.7 [place] .3.760377 MD Geronimo8 [facility] 2022-07-15 2022-07-15 Travel 1.2.840.1 1.2.101.502 [id number] Univers 00:00:00 00:00:00 53019.1.1 350.1.13.41 ity of 3.412.2.[place]3.698 [place] .3.966767 084.8 MD Gonzales [facility] 2022-07-15 2022-07-15 Travel 1.2.840.1 1.2.494.849 [id number] Univers 00:00:00 00:00:00 85378.1.1 350.1.13.41 ity of 3.412.2.[place]3.698 [place] .3.930420 084.8 MD Gonzales [facility] 2022-07-10 2022-07-10 Outpatient SFA SFA [id number] Edwin 14:43:51 14:43:51 [id number] F Gm 2022-07-01 2022-07-01 Outpatient SFA SFA [id number] Edwin 13:03:42 13:03:42 [id number] F [place] 2022-06-12 2022-06-12 Outpatient SFA SFA Edwin 15:54:19 15:54:19 [id number] F Gm 2022-05-28 2022-05-28 Outpatient SFA SFA [id number]- Edwin 10:57:55 10:57:55 [id number] F Gm 2022-05-06 2022-05-06 Outpatient SFA [facility] [id number] Edwin 08:52:54 08:52:54 [id number] F Gm 2022-05-02 2022-05-02 Telephone Fahad, 1.2.840.1 [id number] Univers 00:00:00 00:00:00 Aneetha 21000.1.1 ity of 3.412.2.7 [place] .3.949692 MD Geronimo8 [facility] 2022-05-02 2022-05-02 Telephone Fahad, 1.2.840.1 [id number] Univers 00:00:00 00:00:00 Aneetha 70766.1.1 ity of 3.412.2.7 [place] .3.185551 MD Geronimo8 [facility] 2022-05-02 2022-05-02 Telephone Fahad, 1.2.840.1 [id number] Univers 00:00:00 00:00:00 Aneetha 65888.1.1 ity of 3.412.2.7 [place] .3.908701 MD Geronimo8 [facility] 2022-05-02 2022-05-02 Telephone Fahad, 1.2.840.1 [id number] [id number] Univers 00:00:00 00:00:00 Aneetha 46823.1.1 ity of 3.412.2.7 [place] .3.380819 MD Geronimo8 [facility] 2022-04-30 2022-04-30 Documentat Querido, 1.2.840.1 [id number] Univers 00:00:00 00:00:00 ion Shereen 40597.1.1 ity of 3.412.2.7 [place] .3.656091 MD Geronimo8 [facility] 2022-04-30 2022-04-30 Documentat Querido, 1.2.840.1 [id number] Univers 00:00:00 00:00:00 ion Shereen 79609.1.1 ity of 3.412.2.7 [place] .3.163032 MD Gonzales [facility] 2022-04-18 2022-04-18 Orders Cason 1.2.840.1 [id number] Univers 00:00:00 00:00:00 Only , Inge Mahmood 98354.1.1 ity of 3.412.2.7 [place] .3.691127 MD Geronimo8 [facility] 2022-04-18 2022-04-18 Orders Cason 1.2.840.1 [id number] Univers 00:00:00 00:00:00 Only , Carli 66338.1.1 ity of 3.412.2.7 [place] .3.470125 MD Gonzales [facility] 2022-04-12 2022-04-12 [facility], 1.2.840.1 [id number] Univers 12:25:00 23:59:00 Encounter Johnson 42541.1.1 it y of 3.412.2.7 [place] .3.857568 MD Geronimo8 [facility] 2022-04-12 2022-04-12 [facility], 1.2.840.1 [id number] Univers 12:25:00 23:59:00 Encounter Johnson 33492.1.1 it y of 3.412.2.7 [place] .3.894964 MD Gonzales [facility] 2022-04-12 2022-04-12 Travel 1.2.840.1 1.2.919.429 [id number] Univers 00:00:00 00:00:00 96436.1.1 350.1.13.41 ity of 3.412.2.[place]3.698 [place] .3.893875 084.8 MD Gonzales [facility] 2022-04-12 2022-04-12 Travel 1.2.840.1 1.2.708.984 [id number] Univers 00:00:00 00:00:00 37011.1.1 350.1.13.41 ity of 3.412.2.[place].698 [place] .3.276131 084.8 .8 [facility] 2022-04-05 2022-04-05 Ancillary Dadu, 1.2.840.1 [id number] [id number] Univers 20:00:00 20:05:00 Procedure Johnson 47967.1.1 it y of 3.412.2.7 [place] .3.787071 .8 [facility] 2022-04-05 2022-04-05 Ancillary EL Dadu, 1.2.840.1 [id number] Univers 20:00:00 20:05:00 Procedure Johnson 65122.1.1 it y of 3.412.2.7 [place] .3.832165 .8 [facility] 2022-03-24 2022-04-02 [facility] Paola Dill 1.2.840.1 [id number] Univers 22:44:00 14:05:00 Encounter Bud Goldman 53663.1.1 ity of Magdiel Olmstead 3.412.2.7 T Kiara Huitron .3.907644 Satya Nick8 [facility] 2022-03-24 2022-04-02 [facility] Paola Dill 1.2.840.1 [id number] Univers 22:44:00 14:05:00 Encounter Bud Goldman 74048.1.1 ity of Magdiel Olmstead 3.412.2.7 T Jose Daniel Huitronyssa Givens .3.239634 Satya Nick8 [facility] 2022-04-02 2022-04-02 Orders Francisco, 1.2.840.1 [id number] Univers 00:00:00 00:00:00 Only Hasana 55050.1.1 ity of 3.412.2.7 [place] .3.889818 .8 [facility] 2022-04-02 2022-04-02 Orders Noe, 1.2.840.1 [id number] [id number] Univers 00:00:00 00:00:00 Only Ry S 97893.1.1 ity of 3.412.2.7 [place] .3.463488 MD Geronimo8 [facility] 2022-04-02 2022-04-02 Orders Francisco, 1.2.840.1 [id number] Univers 00:00:00 00:00:00 Only Hasana 16053.1.1 ity of 3.412.2.7 [place] .3.421122 MD Geronimo8 [facility] 2022-04-02 2022-04-02 Orders Noe, 1.2.840.1 [id number] [id number] Univers 00:00:00 00:00:00 Only Ry S 03226.1.1 ity of 3.412.2.7 [place] .3.573957 MD Gonzales [facility] 2022-03-30 2022-03-30 Inpatient [facility] [id number] 12:07:29 13:21:14 KIARA Kosta o n 2022-03-30 2022-03-30 Inpatient [facility] [id number] 12:07:11 13:21:11 KIARA Kosta o n 2022-03-30 2022-03-30 Inpatient [facility] [id number] 09:30:57 09:39:40 KIARA Kosta o n 2022-03-29 2022-03-29 Travel 1.2.840.1 1.2.254.489 [id number] Univers 00:00:00 00:00:00 22814.1.1 350.1.13.41 ity of 3.412.2.7 [place].698 [place] .3.549024 084.8 MD Gonzales [facility] 2022-03-29 2022-03-29 Travel 1.2.840.1 1.2.431.271 [id number] Univers 00:00:00 00:00:00 53051.1.1 350.1.13.41 ity of 3.412.2.[place]3.698 [place] .3.559586 084.8 MD Gonzales [facility] 2022-03-26 2022-03-26 Inpatient RADHA SHAH [facility] MDA [id number] MD 07:54:18 07:56:00 KIARABRENDA [facility] 2022-03-26 2022-03-26 Inpatient RADHA OLMSTEAD [facility] MDA [id number] MD 03:40:49 03:53:19 MAGDIEL Brambila [facility] 2022-03-25 2022-03-25 Travel 1.2.840.1 1.2.609.891 [id number] Univers 00:00:00 00:00:00 29978.1.1 350.1.13.41 ity of 3.412.2.7 [place]7.3.698 [place] .3.099525 084.8 MD Gonzales [facility] 2022-03-25 2022-03-25 Travel 1.2.840.1 1.2.196.549 [id number] [id number] Univers 00:00:00 00:00:00 02053.1.1 350.1.13.41 ity of 3.412.2.7 [place].3.698 [place] .3.725024 084.8 MD Gonzales [facility] 2022-03-24 2022-03-24 Travel 1.2.840.1 1.2.240.835 [id number] [id number] Univers 00:00:00 00:00:00 42387.1.1 350.1.13.41 ity of 3.412.2.7 [place]7.3.698 [place] .3.941990 084.8 MD Gonzales [facility] 2022-03-24 2022-03-24 Travel 1.2.840.1 1.2.894.835 [id number] Univers 00:00:00 00:00:00 65846.1.1 350.1.13.41 ity of 3.412.2.7 [place]7.3.698 [place] .3.609761 084.8 MD Gonzales [facility] 2022-03-14 2022-03-14 Ancillary Dadu, 1.2.840.1 [id number] Univers 16:15:00 18:00:00 Procedure Johnson 06186.1.1 it y of 3.412.2.7 [place] .3.468961 MD Gonzales [facility] 2022-03-14 2022-03-14 Ancillary Dadu, 1.2.840.1 [id number] Univers 16:15:00 18:00:00 Procedure Johnson 12602.1.1 it y of 3.412.2.7 [place] .3.576290 MD Gonzales [facility] 2022-03-14 2022-03-14 Travel 1.2.840.1 1.2.359.524 [id number] [id number] Univers 00:00:00 00:00:00 83381.1.1 350.1.13.41 ity of 3.412.2.7 2.2.7.3.698 [place] .3.151375 084.8 MD Gonzales [facility] 2022-03-14 2022-03-14 Travel 1.2.840.1 1.2.228.162 [id number] [id number] [facility] 00:00:00 00:00:00 48654.1.1 350.1.13.41 ity of 3.412.2.7 2.2.7.3.698 [place] .3.668982 084.8 MD Gonzales [facility] 2022-03-13 2022-03-13 [facility] Dadu, 1.2.840.1 [id number] Univers 11:45:00 23:59:00 Encounter Johnson 38989.1.1 it y of 3.412.2.7 [place] .3.080304 MD Gonzales [facility] 2022-03-13 2022-03-13 [facility] RADHA Ann, 1.2.840.1 [id number] Univers 11:45:00 23:59:00 Encounter Johnson 53750.1.1 it y of 3.412.2.7 [place] .3.196560 MD Gonzales [facility] 2022-03-13 2022-03-13 Clinical Johnson Ann 1.2.840.8 [id number] Univers 14:45:00 14:45:00 Support Minerva Ludwig A 76889.1.1 ity of 3.412.2.7 [place] .3.209650 MD Geronimo8 [facility] 2022-03-13 2022-03-13 Clinical Johnson Viveros 1.2.840.4 [id number] Univers 14:45:00 14:45:00 Support Minerva Ludwig A 86219.1.1 ity of 3.412.2.7 [place] .3.026285 MD Gonzales [facility] 2022-03-13 2022-03-13 Ancillary Dadu, 1.2.840.1 [id number] Univers 12:45:00 14:45:00 Procedure Johnson 55935.1.1 it y of 3.412.2.7 [place] .3.338410 MD Gonzales [facility] 2022-03-13 2022-03-13 Ancillary EL Dadu, 1.2.840.1 [id number] Univers 12:45:00 14:45:00 Procedure Johnson 27811.1.1 it y of 3.412.2.7 [place] .3.434060 MD Geronimo8 [facility] 2022-03-13 2022-03-13 Office Dadu, 1.2.840.1 [id number] Univers 10:45:00 12:13:39 Visit Johnson 41776.1.1 ity of 3.412.2.7 [place] .3.829130 MD Geronimo8 [facility] 2022-03-13 2022-03-13 Office EL Dadu, 1.2.840.1 [id number] Univers 10:45:00 12:13:39 Visit Johnson 09575.1.1 ity of 3.412.2.7 [place] .3.749197 MD Gonzales [facility] 2022-03-13 2022-03-13 Travel 1.2.840.1 1.2.187.585 [id number] [id number] Univers 00:00:00 00:00:00 70683.1.1 350.1.13.41 ity of 3.412.2.7 2.[place].7.3.698 [place] .3.001524 084.8 MD eGronimo8 [facility] 2022-03-13 2022-03-13 Travel 1.2.840.1 1.2.564.244 [id number] [id number] Univers 00:00:00 00:00:00 09274.1.1 350.1.13.41 ity of 3.412.2.7 2.[place].3.698 [place] .3.284335 084.8 MD Gonzales [facility] 2022-03-12 2022-03-12 NPR EL Dadu, 1.2.840.1 [id number] Univers 14:00:00 14:28:46 Johnson 27995.1.1 ity of 3.412.2.7 [place] .3.288235 MD Gonzales [facility] 2022-03-12 2022-03-12 NPR Dadu, 1.2.840.1 [id number] Univers 14:00:00 14:28:46 Johnson 51056.1.1 ity of 3.412.2.7 [place] .3.373728 MD Gonzales [facility] 2022-03-11 2022-03-11 Outpatient [facility] [id number]- 202 Edwin 11:46:46 11:46:46 16928 F Gm 2022-03-01 2022-03-01 Lab Gary Simon 1.2.840.1 [id number] Univers 00:00:00 00:00:00 Lindy Macias 98666.1.1 ity of n 3.412.2.7 [place] .3.221700 MD Geronimo8 [facility] 2022-03-01 2022-03-01 Yen Gary Simon 1.2.840.1 [id number] Univers 00:00:00 00:00:00 Lindy Macias 00803.1.1 ity of n 3.412.2.7 [place] .3.523578 MD Geronimo8 [facility] 2022-02-22 2022-02-22 Ancillary EL Dadu, 1.2.840.1 [id number] Univers 20:10:00 20:15:00 Procedure Johnson 99730.1.1 it y of 3.412.2.7 [place] .3.787662 MD Geronimo8 [facility] 2022-02-22 2022-02-22 Ancillary Dadu, 1.2.840.1 [id number] [id number] Univers 20:10:00 20:15:00 Procedure Johnson 51849.1.1 it y of 3.412.2.7 [place] .3.378546 MD Geronimo8 [facility] 2022-02-22 2022-02-22 Ancillary EL Dadu, 1.2.840.1 [id number] [id number] Univers 20:05:00 20:10:00 Procedure Johnson 98879.1.1 it y of 3.412.2.7 [place] .3.389097 MD Geronimo8 [facility] 2022-02-22 2022-02-22 Ancillary Dadu, 1.2.840.1 [id number] [id number] Univers 20:05:00 20:10:00 Procedure Johnson 03667.1.1 it y of 3.412.2.7 [place] .3.218385 MD Geronimo8 [facility] 2022-02-22 2022-02-22 Ancillary EL Dadu, 1.2.840.1 [id number] [id number] Univers 20:00:00 20:05:00 Procedure Johnson 52997.1.1 it y of 3.412.2.7 [place] .3.754404 MD Gonzales [facility] 2022-02-22 2022-02-22 Ancillary Dadu, 1.2.840.1 [id number] 1101 [id number] Univers 20:00:00 20:05:00 Procedure Johnson 56212.1.1 it y of 3.412.2.7 [place] .3.947043 MD Gonzales [facility] 2022-02-22 2022-02-22 Lab Gary Simon 1.2.840.1 [id number] Univers 00:00:00 00:00:00 Slim Diazuti 21730.1.1 ity of n 3.412.2.7 [place] .3.595920 MD Gonzales [facility] 2022-02-22 2022-02-22 Lab Gary Simon 1.2.840.1 [id number] Univers 00:00:00 00:00:00 Sue Diaza Vejabhuti 85348.1.1 ity of n 3.412.2.7 [place] .3.917139 MD Gonzales [facility] 2022-02-19 2022-02-19 Outpatient [facility] [id number]- 202 Edwin 15:11:18 15:11:18 39167 F Gm 2022-02-07 2022-02-07 Orders Dadu, 1.2.840.1 [id number] Univers 00:00:00 00:00:00 Only Johnson 02364.1.1 ity of 3.412.2.7 [place] .3.694409 MD Gonzales [facility] 2022-02-07 2022-02-07 Orders Dadu, 1.2.840.1 [id number] Univers 00:00:00 00:00:00 Only Johnson 88639.1.1 ity of 3.412.2.7 [place] .3.727349 MD Gonzales [facility] 2022-02-06 2022-02-06 Outpatient [facility] [id number]- 202 Edwin 16:18:48 16:18:48 29551 F Gm 2022-02-06 2022-02-06 Outpatient [id number]- [id number] d4 711aec-a 00:00:00 00:00:00 Visit [id number] -59j4-4t8 [id number] 48836i 2019-04-21 2019-04-21 Outpatient [facility] [id number] 12:49:19 12:49:19 JOHNSON Kosta o n Results Test Description Test Time Test Comments Results Result Comments Source Echocardiogram 2D Complete 2022-07-26 20:04:07 Test Item Value Reference Range Interpretation Comme nts EF (test code = 5799698038) 63 PXN (test code = PXN) Mariama [...] - Akinetic 4 - DyskineticInterpret Hypokinetic5 - Hfoycsjfia8M imaginD volumes were not performed in this [...] (avg): 6.6 E/e' (lat): 5.1E/e' (sept): 9.3 [facility] [place] 2022-07-26 20:04:07 Test Item Value Reference Range Interpretation Comments EF (test code = 63 [id number]) PXN (test code Mariama Mendoza MD = [...] - Akinetic 4 - DyskineticInterpret Hypokinetic5 - Oozhvlbyqc3A imaginD volumes were not performed in this [...] (avg): 6.6 E/e' (lat): 5.1E/e' (sept): 9.3 [facility]2022-[facility]-26 17:23:13NT ProBNP<36<=125 pg/mLUT [facility]2022-07-26 17:23:13NT ProBNP<36<=125 pg/[facility]UT [place] [facility]2022-07-26 17:23:13NT ProBNP<36<=125 pg/mLUT [place] [facility]2022-07-26 17:23:13NT ProBNP<36<=125 pg/mLUT [facility]Un[facility] HospitalNT-[facility] BNP (In-House)2022-07-26 17:23:13NT ProBNP<36<=125 pg/mLUT [place] [facility]2022-07-26 17:23:13NT ProBNP<36<=125 pg/mLUT [place] [facility]2022-07-26 17:23:13NT ProBNP<36<=125 pg/mLUT [facility]NT[facility]NP (In-House)2022-07-26 17:23:13NT ProBNP<36<=125 pg/mLUT [place] [facility])2022-07-26 17:23:13NT ProBNP<36<=125 pg/mLUT [place] [facility] HospitalCard[facility] Gssmg7259-51-07 16:19:53 Test Item Value Reference Range Interpretation Comments CK (test code = 55 U/L 26-192 2157-6) CK MB (test code = <=5.3 74384-1) Troponin T (test code <=19 < 19 n g/L Suggest retest = 76639-1) at 3 to 6 hours later to [...] interfere nces and falsely low res ults. [facility] Ebxec0486-72-24 16:19:53 Test Item Value Reference Range Interpretation Comments CK (test code = 55 U/L 192 2157-6) CK MB (test code = <=5.3 52366-7) Troponin T (test code <=19 < 19 n g/L Suggest retest = 79648-3) at 3 to 6 hours later to [...] interfere nces and falsely low res ults. [facility] Gmgwv8546-85-96 16:19:53 Test Item Value Reference Range Interpretation Comments CK (test code = 55 U/L 7-6) CK MB (test code = <=5.3 12615-9) Troponin T (test code <=19 < 19 n g/L Suggest retest = 54629-0) at 3 to 6 hours later to [...] interfere nces and falsely low res ults. [facility] Sormb0533-92-99 16:19:53 Test Item Value Reference Range Interpretation Comments CK (test code = 55 U/L 26-192 2157-6) CK MB (test code = <=5.3 69672-1) Troponin T (test code <=19 < 19 n g/L Suggest retest = 96171-1) at 3 to 6 hours later to [...] interfere nces and falsely low res ults. [facility] Ipsho8021-97-88 16:19:53 Test Item Value Reference Range Interpretation Comments CK (test code = 55 U/L 26-192 2157-6) CK MB (test code = <=5.3 44126-4) Troponin T (test code <=19 < 19 n g/L Suggest retest = 99852-6) at 3 to 6 hours later to [...] interfere nces and falsely low res ults. [facility] Tugqu8764-76-22 16:19:53 Test Item Value Reference Range Interpretation Comments CK (test code = 55 U/L 26192 7-6) CK MB (test code = <=5.3 36129-4) Troponin T (test code <=19 < 19 n g/L Suggest retest = 56542-5) at 3 to 6 hours later to [...] interfere nces and falsely low res ults. [facility] Ubhwy5802-06-30 16:19:53 Test Item Value Reference Range Interpretation Comments CK (test code = 55 U/L 7-6) CK MB (test code = <=5.3 25845-2) Troponin T (test code <=19 < 19 n g/L Suggest retest = 01693-9) at 3 to 6 hours later to [...] interfere nces and falsely low res ults. [facility] Xltjh4931-32-20 16:19:53 Test Item Value Reference Range Interpretation Comments CK (test code = 55 U/L 26-192 2157-6) CK MB (test code = <=5.3 88462-1) Troponin T (test code <=19 < 19 n g/L Suggest retest = 40378-8) at 3 to 6 hours later to [...] interfere nces and falsely low res ults. [facility] Ehsos8876-02-01 16:19:53 Test Item Value Reference Range Interpretation Comments CK (test code = 55 U/L 26-192 2157-6) CK MB (test code = <=5.3 37701-3) Troponin T (test code <=19 < 19 n g/L Suggest retest = 50897-3) at 3 to 6 hours later to [...] interfere nces and falsely low res ults. [facility]oFree [id number] 16:19:30 Test Item Value Reference Range Interpretation Comments T4 Free (test code = 3024-7) 1.53 ng/dL 0.93-1.70 [place] 235012023-06-02 16:19:30 Test Item Value Reference Range Interpretation Comments T4 Free (test code = 3024-7) 1.53 ng/dL 0.93-1.70 [place] 235012023-06-02 16:19:30 Test Item Value Reference Range Interpretation Comments T4 Free (test code = 3024-7) 1.53 ng/dL 0.93-1.70 [place] 235012023-06-02 16:19:30 Test Item Value Reference Range Interpretation Comments T4 Free (test code = 3024-7) 1.53 ng/dL 0.93-1.70 [place] 235012023-06-02 16:19:30 Test Item Value Reference Range Interpretation Comments T4 Free (test code = 3024-7) 1.53 ng/dL 0.93-1.70 [place] 235012023-06-02 16:19:30 Test Item Value Reference Range Interpretation Comments T4 Free (test code = 3024-7) 1.53 ng/dL 0.93-1.70 [place] 235012023-06-02 16:19:30 Test Item Value Reference Range Interpretation Comments T4 Free (test code = 3024-7) 1.53 ng/dL 0.93-1.70 [place] 235012023-06-02 16:19:30 Test Item Value Reference Range Interpretation Comments T4 Free (test code = 3024-7) 1.53 ng/dL 0.93-1.70 [place] 235012023-06-02 16:19:30 Test Item Value Reference Range Interpretation Comments T4 Free (test code = 3024-7) 1.53 ng/dL 0.93-1.70 [facility] Fxbshqcnq6331-67-31 16:16:37 Test Item Value Reference Range Interpretation [...] par ameters are outside rep ortable range [facility]oFraction[facility] Qxvgvvppb8614-00-14 16:16:37 Test Item Value Reference Range Interpretation [...] par ameters are outside rep ortable range [facility] Wdoskourg6647-88-80 16:16:37 Test Item Value Reference Range Interpretation [...] par ameters are outside rep ortable range [facility] Ljtpqykej3038-86-27 16:16:37 Test Item Value Reference Range Interpretation [...] par ameters are outside rep ortable range [facility] Jppjaaxuk1312-20-64 16:16:37 Test Item Value Reference Range Interpretation [...] par ameters are outside rep ortable range [facility] Swbrwkohr9243-83-22 16:16:37 Test Item Value Reference Range Interpretation [...] par ameters are outside rep ortable range [facility] Khqaoqacy7206-84-87 16:16:37 Test Item Value Reference Range Interpretation [...] par ameters are outside rep ortable range [facility] Ddoubeenl5784-40-04 16:16:37 Test Item Value Reference Range Interpretation [...] par ameters are outside rep ortable range [facility]oF[facility] Vklugksgj5511-88-52 16:16:37 Test Item Value Reference Range Interpretation [...] par ameters are outside rep ortable range [facility]oGlomerular Fil[facility] Rate 2022-07-26 16:16:33 Test Item Value Reference Range Interpretation Comments eGFR (test code = 145 See_Comment The eGFRcr [place] calculated with 97539-9) the 2020 CKD-EP I creatinine equation using [...] CKD. [Automated mess age] The system which ChallengePost nerated this result transmit eugene reference range: >=60 mL/ min/1.73 sq. m. The referenc e range was not used to int erpret this result as nehemiah l/abnormal. [facility] 2022-07-26 16:16:33 Test Item Value Reference Range Interpretation Comments eGFR (test code = 145 See_Comment The eGFRcr is calculated with 31678-9) the 2020 CKD-EP I creatinine equation using [...] CKD. [Automated mess age] The system which Challenge[employer] nerated this result transmit eugene reference range: >=60 mL/ min/1.73 sq. m. The referenc e range was not used to int erpret this result as nehemiah l/abnormal. [facility] Rate 2022-07-26 16:16:33 Test Item Value Reference Range Interpretation Comments eGFR (test code = 145 See_Comment The eGFRcr is calculated with 03331-3) the 2020 CKD-EP I creatinine equation using [...] int erpret this result as nehemiah l/abnormal. [facility] [place] 2022-07-26 16:16:33 Test Item Value Reference Range Interpretation Comments eGFR (test code = 145 See_Comment The eGFRcr is calculated with 62981-6) the 2020 CKD-EP I creatinine equation using [...] CKD. [Automated mess age] The system which [employer] nerated this result transmit eugene reference range: >=60 mL/ min/1.73 sq. m. The referenc e range was not used to int erpret this result as nehemiah l/abnormal. [facility] 2022-07-26 16:16:33 Test Item Value Reference Range Interpretation Comments eGFR (test code = 145 See_Comment The eGFRcr is calculated with 28664-8) the 2020 CKD-EP I creatinine equation using [...] CKD. [Automated mess age] The system which [employer] nerated this result transmit eugene reference range: >=60 mL/ min/1.73 sq. m. The referenc e range was not used to int erpret this result as nehemiah l/abnormal. [facility] 2022-07-26 16:16:33 Test Item Value Reference Range Interpretation Comments eGFR (test code = 145 See_Comment The eGFRcr is calculated with 91854-3) the 2020 CKD-EP I creatinine equation using [...] int erpret this result as nehemiah l/abnormal. [facility] [place] 2022-07-26 16:16:33 Test Item Value Reference Range Interpretation Comments eGFR (test code = 145 See_Comment The eGFRcr is calculated with 97088-0) the 2020 CKD-EP I creatinine equation using [...] CKD. [Automated mess age] The system which Challenge[employer] nerated this result transmit eugene reference range: >=60 mL/ min/1.73 sq. m. The referenc e range was not used to int erpret this result as nehemiah l/abnormal. [facility] 2022-07-26 16:16:33 Test Item Value Reference Range Interpretation Comments eGFR (test code = 145 See_Comment The eGFRcr is calculated with 01791-8) the 2020 CKD-EP I creatinine equation using [...] and albuminuria cat egory. KDIGO guidelines prov hserri the following GFR c ategoriesStage Description GFR mL/min/1.73 m2G1* Normal or high >= 90G2* Mildly decrease d 60-89G3a Mildly to moder ately decreased 45-59 G3b Moderately to severely dec reased 30-44G4 Severely decrea sed 15-29G5 Kidney failure <15*In the absence of evid ence of kidney damage, neither G1 nor G2 fulfill criteri a for CKD. [Automated mess age] The system which [employer] nerated this result transmit eugene reference range: >=60 mL/ min/1.73 sq. m. The referenc e range was not used to int erpret this result as nehemiah l/abnormal. [facility] 2022-07-26 16:16:33 Test Item Value Reference Range Interpretation Comments eGFR (test code = 145 See_Comment The eGFRcr is calculated with 81506-1) the 2020 CKD-EP I creatinine equation using [...] int erpret this result as nehemiah l/abnormal. [facility] Ddtvfzobdow1075-65-37 16:16:32 Test Item Value Reference Range Interpretation Comments Alk Phos (test code = 6768-6) 112 U/L 35-104 H Lab Interpretation (test code = Abnormal 93171-9) [facility]oAlk[facility] Xiwgectlsnk9637-43-05 16:16:32 Test Item Value Reference Range Interpretation Comments Alk Phos (test code = 6768-6) 112 U/L 35-104 H Lab Interpretation (test code = Abnormal 11739-3) [facility] Zgzewkczqcv0930-93-23 16:16:32 Test Item Value Reference Range Interpretation Comments Alk Phos (test code = 6768-6) 112 U/L 35-104 H Lab Interpretation (test code = Abnormal 97929-1) [facility] Tynqarokivk6276-95-57 16:16:32 Test Item Value Reference Range Interpretation Comments Alk Phos (test code = 6768-6) 112 U/L 35-104 H Lab Interpretation (test code = Abnormal 42539-7) [facility] Iqinvzosgxv5767-76-85 16:16:32 Test Item Value Reference Range Interpretation Comments Alk Phos (test code = 6768-6) 112 U/L 35-104 H Lab Interpretation (test code = Abnormal 42545-3) [facility] Eztxgcjampa6986-94-25 16:16:32 Test Item Value Reference Range Interpretation Comments Alk Phos (test code = 6768-6) 112 U/L 35-104 H Lab Interpretation (test code = Abnormal 27871-8) [facility] Uksupzpdeek2265-26-17 16:16:32 Test Item Value Reference Range Interpretation Comments Alk Phos (test code = 6768-6) 112 U/L 35-104 H Lab Interpretation (test code = Abnormal 27738-3) [facility] Rbvnabtkcea8699-85-38 16:16:32 Test Item Value Reference Range Interpretation Comments Alk Phos (test code = 6768-6) 112 U/L 35-104 H Lab Interpretation (test code = Abnormal 73305-0) [facility] Hwvryacgwvu4366-21-41 16:16:32 Test Item Value Reference Range Interpretation Comments Alk Phos (test code = 6768-6) 112 U/L 35-104 H Lab Interpretation (test code = Abnormal 61110-1) [facility]oAlbumin Qvqhg8690-26-32 16:16:31 Test Item Value Reference Range Interpretation Comments Albumin Lvl (test code 4.6 See_Comment [Aut omated message] The = 1750-08) system which ge nerated this result tra nsmitted reference range : 3.5 - 5.2 gm/dL. The refe rence range was not used to interpret this result as normal/abnormal . [facility]oAlbumin Jxjex8257-91-48 16:16:31 Test Item Value Reference Range Interpretation Comments Albumin Lvl (test code 4.6 See_Comment [Aut omated message] The = 17503-02) system which ge nerated this result tra nsmitted reference range : 3.5 - 5.2 gm/dL. The refe rence range was not used to interpret this result as normal/abnormal . [facility]oAlbum[facility] Muzwt0354-63-67 16:16:31 Test Item Value Reference Range Interpretation Comments Albumin Lvl (test code 4.6 See_Comment [Aut omated message] The = 1750-08) system which ge nerated this result tra nsmitted reference range : 3.5 - 5.2 gm/dL. The refe rence range was not used to interpret this result as normal/abnormal . [facility]oAlbum[facility] Jgnmp8061-80-25 16:16:31 Test Item Value Reference Range Interpretation Comments Albumin Lvl (test code 4.6 See_Comment [Aut omated message] The = 1750-08) system which ge nerated this result tra nsmitted reference range : 3.5 - 5.2 gm/dL. The refe rence range was not used to interpret this result as normal/abnormal . [facility]oAlbum[facility] Nfofq5349-58-55 16:16:31 Test Item Value Reference Range Interpretation Comments Albumin Lvl (test code 4.6 See_Comment [Aut omated message] The = 1750-08) system which ge nerated this result tra nsmitted reference range : 3.5 - 5.2 gm/dL. The refe rence range was not used to interpret this result as normal/abnormal . [facility] Vvyth8889-13-26 16:16:31 Test Item Value Reference Range Interpretation Comments Albumin Lvl (test code 4.6 See_Comment [Aut omated message] The = 1750-08) system which ge nerated this result tra nsmitted reference range : 3.5 - 5.2 gm/dL. The refe rence range was not used to interpret this result as normal/abnormal . [facility] Rbzez0063-19-44 16:16:31 Test Item Value Reference Range Interpretation Comments Albumin Lvl (test code 4.6 See_Comment [Aut omated message] The = 1750-08) system which ge nerated this result tra nsmitted reference range : 3.5 - 5.2 gm/dL. The refe rence range was not used to interpret this result as normal/abnormal . [facility] Xfymd9722-54-30 16:16:31 Test Item Value Reference Range Interpretation Comments Albumin Lvl (test code 4.6 See_Comment [Aut omated message] The = 1750-08) system which ge nerated this result tra nsmitted reference range : 3.5 - 5.2 gm/dL. The refe rence range was not used to interpret this result as normal/abnormal . [facility] Dcdvk8428-77-02 16:16:31 Test Item Value Reference Range Interpretation Comments Albumin Lvl (test code 4.6 See_Comment [Aut omated message] The = 1751-7) system which ge nerated this result tra nsmitted reference range : 3.5 - 5.2 gm/dL. The refe rence range was not used to interpret this result as normal/abnormal . [facility] Aminotransferase 2022-07-26 16:16:30 Test Item Value Reference Range Interpretation Comments AST (test code = 1920-8) 31 U/L <=32 [facility] Aminotransferase 2022-07-26 16:16:30 Test Item Value Reference Range Interpretation Comments AST (test code = 1920-8) 31 U/L <=32 [facility] Aminotransferase 2022-07-26 16:16:30 Test Item Value Reference Range Interpretation Comments AST (test code = 1920-8) 31 U/L <=32 [facility] Aminotransferase 2022-07-26 16:16:30 Test Item Value Reference Range Interpretation Comments AST (test code = 1920-8) 31 U/L <=32 [facility] Aminotransferase 2022-07-26 16:16:30 Test Item Value Reference Range Interpretation Comments AST (test code = 1920-8) 31 U/L <=32 [facility] Aminotransferase 2022-07-26 16:16:30 Test Item Value Reference Range Interpretation Comments AST (test code = 1920-8) 31 U/L <=32 [facility] Aminotransferase 2022-07-26 16:16:30 Test Item Value Reference Range Interpretation Comments AST (test code = 1920-8) 31 U/L <=32 [facility] Aminotransferase 2022-07-26 16:16:30 Test Item Value Reference Range Interpretation Comments AST (test code = 1920-8) 31 U/L <=32 [facility] Aminotransferase 2022-07-26 16:16:30 Test Item Value Reference Range Interpretation Comments AST (test code = 1920-8) 31 U/L <=32 [facility]ro[facility] Qwrnf9156-51-50 16:16:29 Test Item Value Reference Range Interpretation [...] to interpret this result as normal/abnormal . [facility] Xojsv4859-10-64 16:16:29 Test Item Value Reference Range Interpretation [...] to interpret this result as normal/abnormal . [facility] Param8213-69-35 16:16:29 Test Item Value Reference Range Interpretation [...] to interpret this result as normal/abnormal . [facility] Oqlej9413-48-45 16:16:29 Test Item Value Reference Range Interpretation [...] to interpret this result as normal/abnormal . [facility] Zxhub4741-66-61 16:16:29 Test Item Value Reference Range Interpretation [...] to interpret this result as normal/abnormal . [facility] Ungnd2775-06-24 16:16:29 Test Item Value Reference Range Interpretation [...] to interpret this result as normal/abnormal . [facility] Xcqit2672-64-53 16:16:29 Test Item Value Reference Range Interpretation [...] to interpret this result as normal/abnormal . [facility] Ijdpp2980-82-78 16:16:29 Test Item Value Reference Range Interpretation [...] to interpret this result as normal/abnormal . [facility] Vdwep5817-42-19 16:16:29 Test Item Value Reference Range Interpretation [...] to interpret this result as normal/abnormal . [facility].Serum Rodtogvntk9918-72-37 16:16:28 Test Item Value Reference Range Interpretation Comments Creatinine (test code = 2160-0) 0.35 mg/dL 0.51-0.95 L Lab Interpretation (test code = Abnormal 09194-0) [facility].Serum Jdiyajfczd6110-03-39 16:16:28 Test Item Value Reference Range Interpretation Comments Creatinine (test code = 2160-0) 0.35 mg/dL 0.51-0.95 L Lab Interpretation (test code = Abnormal 31760-3) [facility].Serum Cfqulvthix4260-03-98 16:16:28 Test Item Value Reference Range Interpretation Comments Creatinine (test code = 2160-0) 0.35 mg/dL 0.51-0.95 L Lab Interpretation (test code = Abnormal 30194-8) [facility].Serum Cmuygbtcbo6977-82-96 16:16:28 Test Item Value Reference Range Interpretation Comments Creatinine (test code = 2160-0) 0.35 mg/dL 0.51-0.95 L Lab Interpretation (test code = Abnormal 74856-2) [facility].Serum Mliktdrzki2864-57-18 16:16:28 Test Item Value Reference Range Interpretation Comments Creatinine (test code = 2160-0) 0.35 mg/dL 0.51-0.95 L Lab Interpretation (test code = Abnormal 09810-5) [facility].Serum Ppkxomekjw3076-86-49 16:16:28 Test Item Value Reference Range Interpretation Comments Creatinine (test code = 2160-0) 0.35 mg/dL 0.51-0.95 L Lab Interpretation (test code = Abnormal 67303-5) [facility].Serum Wlyhtmnvcb7885-62-46 16:16:28 Test Item Value Reference Range Interpretation Comments Creatinine (test code = 2160-0) 0.35 mg/dL 0.51-0.95 L Lab Interpretation (test code = Abnormal 96197-9) [facility].Serum Ggngqqkveq2459-70-92 16:16:28 Test Item Value Reference Range Interpretation Comments Creatinine (test code = 2160-0) 0.35 mg/dL 0.51-0.95 L Lab Interpretation (test code = Abnormal 52432-3) [facility].Serum Tyxropprlb3434-11-43 16:16:28 Test Item Value Reference Range Interpretation Comments Creatinine (test code = 2160-0) 0.35 mg/dL 0.51-0.95 L Lab Interpretation (test code = Abnormal 71054-7) [facility] Ceicewo1265-79-20 16:16:22 Test Item Value Reference Range Interpretation Comments Total Protein (test code = 2885-2) 7.4 g/[facility] M[facility]j6450-26-90 16:16:22 Test Item Value Reference Range Interpretation Comments Total Protein (test code = 2885-2) 7.4 g/dL 6.4-8.3 [facility] Sysknrn4504-18-86 16:16:22 Test Item Value Reference Range Interpretation Comments Total Protein (test code = 2885-2) 7.4 g/dL 6.4-8.3 [facility] Fiyjssc5421-22-22 16:16:22 Test Item Value Reference Range Interpretation Comments Total Protein (test code = 2885-2) 7.4 g/dL 6.4-8.3 [facility] Jkutnxr7730-31-65 16:16:22 Test Item Value Reference Range Interpretation Comments Total Protein (test code = 2885-2) 7.4 g/dL 6.4-8.3 [facility] Aybsoki4562-84-21 16:16:22 Test Item Value Reference Range Interpretation Comments Total Protein (test code = 2885-2) 7.4 g/dL 6.4-8.3 [facility] Tllckjo5230-39-54 16:16:22 Test Item Value Reference Range Interpretation Comments Total Protein (test code = 2885-2) 7.4 g/dL 6.4-8.3 [facility] Idwijbo7695-16-44 16:16:22 Test Item Value Reference Range Interpretation Comments Total Protein (test code = 2885-2) 7.4 g/dL 6.4-8.3 [facility] Lvkncbe1972-64-56 16:16:22 Test Item Value Reference Range Interpretation Comments Total Protein (test code = 2885-2) 7.4 g/dL 6.4-8.3 [facility] Gkkje2892-67-76 16:16:21 Test Item Value Reference Range Interpretation Comments Calcium Lvl (test code = 39527-1) 10.4 mg/dL 8.4-10.2 H Lab Interpretation (test code = Abnormal 57374-5) [facility] Eecuz1754-48-95 16:16:21 Test Item Value Reference Range Interpretation Comments Calcium Lvl (test code = 04659-0) 10.4 mg/dL 8.4-10.2 H Lab Interpretation (test code = Abnormal 78072-7) [facility] Lflqp6170-84-87 16:16:21 Test Item Value Reference Range Interpretation Comments Calcium Lvl (test code = 66346-1) 10.4 mg/dL 8.4-10.2 H Lab Interpretation (test code = Abnormal 08846-0) [facility] Qjwds3910-59-51 16:16:21 Test Item Value Reference Range Interpretation Comments Calcium Lvl (test code = 83351-6) 10.4 mg/dL 8.4-10.2 H Lab Interpretation (test code = Abnormal 26119-3) [facility] Palil3457-57-40 16:16:21 Test Item Value Reference Range Interpretation Comments Calcium Lvl (test code = 65385-1) 10.4 mg/dL 8.4-10.2 H Lab Interpretation (test code = Abnormal 37299-8) [facility] Yxkec3796-83-86 16:16:21 Test Item Value Reference Range Interpretation Comments Calcium Lvl (test code = 97851-2) 10.4 mg/dL 8.4-10.2 H Lab Interpretation (test code = Abnormal 09103-2) [facility] Dnddm9641-36-32 16:16:21 Test Item Value Reference Range Interpretation Comments Calcium Lvl (test code = 39523-2) 10.4 mg/dL 8.4-10.2 H Lab Interpretation (test code = Abnormal 18616-2) [facility] Xkueq0402-62-49 16:16:21 Test Item Value Reference Range Interpretation Comments Calcium Lvl (test code = 66440-8) 10.4 mg/dL 8.4-10.2 H Lab Interpretation (test code = Abnormal 15022-2) [facility] Ztlhh0129-43-47 16:16:21 Test Item Value Reference Range Interpretation Comments Calcium Lvl (test code = 12359-6) 10.4 mg/dL 8.4-10.2 H Lab Interpretation (test code = Abnormal 78061-6[facility] Test Item Value Reference Range Interpretation Comments ALT (test code = 1742-6) 34 U/L <=33 H Lab Interpretation (test code = Abnormal 45965-6) [place] 48620023-06-02 16:16:20 Test Item Value Reference Range Interpretation Comments ALT (test code = 1742-6) 34 U/L <=33 H Lab Interpretation (test code = Abnormal 36293-3) [facility]20 Test Item Value Reference Range Interpretation Comments ALT (test code = 1742-6) 34 U/L <=33 H Lab Interpretation (test code = Abnormal 52632-1) [facility]20 Test Item Value Reference Range Interpretation Comments ALT (test code = 1742-6) 34 U/L <=33 H Lab Interpretation (test code = Abnormal 41513-8) [facility]:16:20 Test Item Value Reference Range Interpretation Comments ALT (test code = 1742-6) 34 U/L <=33 H Lab Interpretation (test code = Abnormal 91819-3) [place] 48620023-06-02 16:16:20 Test Item Value Reference Range Interpretation Comments ALT (test code = 1742-6) 34 U/L <=33 H Lab Interpretation (test code = Abnormal 72120-2) [place] 48620023-06-02 16:16:20 Test Item Value Reference Range Interpretation Comments ALT (test code = 1742-6) 34 U/L <=33 H Lab Interpretation (test code = Abnormal 79089-5) [facility]20 Test Item Value Reference Range Interpretation Comments ALT (test code = 1742-6) 34 U/L <=33 H Lab Interpretation (test code = Abnormal 43080-7) [facility]:16:20 Test Item Value Reference Range Interpretation Comments ALT (test code = 1742-6) 34 U/L <=33 H Lab Interpretation (test code = Abnormal 98878-5) [facility]19 Test Item Value Reference Range Interpretation Comments BUN (test code = 3094-0) 12 mg/dL 6- [facility] 16:16:19 Test Item Value Reference Range Interpretation Comments BUN (test code = 3094-0) 12 mg/dL 6- [facility] 16:16:19 Test Item Value Reference Range Interpretation Comments BUN (test code = 3094-0) 12 mg/dL - [facility] 16:16:19 Test Item Value Reference Range Interpretation Comments BUN (test code = 3094-0) 12 mg/dL 6- [facility] 16:16:19 Test Item Value Reference Range Interpretation Comments BUN (test code = 3094-0) 12 mg/dL 6- [facility] 16:16:19 Test Item Value Reference Range Interpretation Comments BUN (test code = 3094-0) 12 mg/dL 6- [facility] 16:16:19 Test Item Value Reference Range Interpretation Comments BUN (test code = 3094-0) 12 mg/dL - [facility] 16:16:19 Test Item Value Reference Range Interpretation Comments BUN (test code = 3094-0) 12 mg/dL 6- [facility] 16:16:19 Test Item Value Reference Range Interpretation Comments BUN (test code = 3094-0) 12 mg/dL 6- [facility] Wazwg6273-64-98 16:16:18 Test Item Value Reference Range Interpretation [...] diabetes Lab Interpretation (test Abnormal code = 62286-0) [facility] Oikmn4300-63-74 16:16:18 Test Item Value Reference Range Interpretation [...] diabetes Lab Interpretation (test Abnormal code = 35999-9) [facility] Oucwl7864-08-46 16:16:18 Test Item Value Reference Range Interpretation [...] diabetes Lab Interpretation (test Abnormal code = 51974-4) [facility] Cvowg3931-16-54 16:16:18 Test Item Value Reference Range Interpretation [...] diabetes Lab Interpretation (test Abnormal code = 37370-6) [facility] Hrlyk1677-28-82 16:16:18 Test Item Value Reference Range Interpretation [...] diabetes Lab Interpretation (test Abnormal code = 23593-2) [facility] Hjbot7661-31-69 16:16:18 Test Item Value Reference Range Interpretation [...] diabetes Lab Interpretation (test Abnormal code = 07055-3) [facility] Yirdn2517-46-36 16:16:18 Test Item Value Reference Range Interpretation [...] diabetes Lab Interpretation (test Abnormal code = 02612-3) [facility] Qjgfn7369-95-89 16:16:18 Test Item Value Reference Range Interpretation [...] diabetes Lab Interpretation (test Abnormal code = 00501-3) [facility] Dhclm1475-88-58 16:16:18 Test Item Value Reference Range Interpretation [...] diabetes Lab Interpretation (test Abnormal code = 45916-3) [facility] tadnz6917-26-86 16:15:32 Test Item Value Reference Range Interpretation Comments Chol (test code = 246 mg/dL <=199 H ATP III Cl assification 3-3) of Total Choles terol Primary Target of Therapy (in mg/dL):<200 Epambfpph705-05 9 Borderline high >=240 High Trig (test code = 201 mg/dL <=149 H ATP III Cl assification 2571-8) of Serum Trigly cerides Primary Target of Therapy (in mg/dL):<150 Wxisyo635-332 Borderline high 200-499 High>=500 Very highNon-fasting triglycerides > 200 mg/dL may be fo llowed up with a fasti ng Lipid Panel. Calculated LDL- C may be falsely decr eased when non-fastin g triglycerides > 200 mg/dL. HDL (test code = 52 mg/dL >=40 5-9) LDL (test code = 154 mg/dL <=100 H ATP III Cla ssification 16412-4) of LDL Choleste rol Primary Target of Therapy (in mg/dL):<100 Laiuepn578-768 Near optimal/above iosgjfr162-253 Borderline high 160-189 High>=190 Very high VLDL (test code = 40 mg/dL 88998-0) Lab Interpretation Abnormal (test code = 49751-3) [facility] lcdps1342-62-57 16:15:32 Test Item Value Reference Range Interpretation Comments Chol (test code = 246 mg/dL <=199 H ATP III Cl assification 2092-04) of Total Choles terol Primary Target of Therapy (in mg/dL):<200 Kzgjjhmkr620-14 9 Borderline high >=240 High Trig (test code = 201 mg/dL <=149 H ATP III Cl assification 2571-8) of Serum Trigly cerides Primary Target of Therapy (in mg/dL):<150 Bdgqez073-627 Borderline high 200-499 High>=500 Very highNon-fasting triglycerides > 200 mg/dL may be fo llowed up with a fasti ng Lipid Panel. Calculated LDL- C may be falsely decr eased when non-fastin g triglycerides > 200 mg/dL. HDL (test code = 52 mg/dL >=40 2084-10) LDL (test code = 154 mg/dL <=100 H ATP III Cla ssification 50117-7) of LDL Choleste rol Primary Target of Therapy (in mg/dL):<100 Ugdozcb214-870 Near optimal/above nowleqc475-566 Borderline high 160-189 High>=190 Very high VLDL (test code = 40 mg/dL 45437-7) Lab Interpretation Abnormal (test code = 12236-6) [facility] vtwdq7307-75-55 16:15:32 Test Item Value Reference Range Interpretation Comments Chol (test code = 246 mg/dL <=199 H ATP III Cl assification 2092-04) of Total Choles terol Primary Target of Therapy (in mg/dL):<200 Gvqzusred921-16 9 Borderline high >=240 High Trig (test code = 201 mg/dL <=149 H ATP III Cl assification 2571-8) of Serum Trigly cerides Primary Target of Therapy (in mg/dL):<150 Iajrtd105-642 Borderline high 200-499 High>=500 Very highNon-fasting triglycerides > 200 mg/dL may be fo llowed up with a fasti ng Lipid Panel. Calculated LDL- C may be falsely decr eased when non-fastin g triglycerides > 200 mg/dL. HDL (test code = 52 mg/dL >=40 2084-9) LDL (test code = 154 mg/dL <=100 H ATP III Cla ssification 47697-9) of LDL Choleste rol Primary Target of Therapy (in mg/dL):<100 Pmjdiib174-319 Near optimal/above izunxmp869-991 Borderline high 160-189 High>=190 Very high VLDL (test code = 40 mg/dL 52745-0) Lab Interpretation Abnormal (test code = 63025-8) [facility] htyus6208-25-47 16:15:32 Test Item Value Reference Range Interpretation Comments Chol (test code = 246 mg/dL <=199 H ATP III Cl assification 2092-3) of Total Choles terol Primary Target of Therapy (in mg/dL):<200 Ogmyhuzhq690-97 9 Borderline high >=240 High Trig (test code = 201 mg/dL <=149 H ATP III Cl assification 2571-8) of Serum Trigly cerides Primary Target of Therapy (in mg/dL):<150 Rrrhhp185-786 Borderline high 200-499 High>=500 Very highNon-fasting triglycerides > 200 mg/dL may be fo llowed up with a fasti ng Lipid Panel. Calculated LDL- C may be falsely decr eased when non-fastin g triglycerides > 200 mg/dL. HDL (test code = 52 mg/dL >=40 2084-9) LDL (test code = 154 mg/dL <=100 H ATP III Cla ssification 29914-1) of LDL Choleste rol Primary Target of Therapy (in mg/dL):<100 Cesiejt247-352 Near optimal/above -647 Borderline high 160-189 High>=190 Very high VLDL (test code = 40 mg/dL 26615-8) Lab Interpretation Abnormal (test code = 36649-9) [facility] lvxup2639-84-89 16:15:32 Test Item Value Reference Range Interpretation Comments Chol (test code = 246 mg/dL <=199 H ATP III Cl assification 2093-3) of Total Choles terol Primary Target of Therapy (in mg/dL):<200 Uclskuzhv362-88 9 Borderline high >=240 High Trig (test code = 201 mg/dL <=149 H ATP III Cl assification 257-8) of Serum Trigly cerides Primary Target of Therapy (in mg/dL):<150 Pnfnfo187-049 Borderline high 200-499 High>=500 Very highNon-fasting triglycerides > 200 mg/dL may be fo llowed up with a fasti ng Lipid Panel. Calculated LDL- C may be falsely decr eased when non-fastin g triglycerides > 200 mg/dL. HDL (test code = 52 mg/dL >=40 2084-10) LDL (test code = 154 mg/dL <=100 H ATP III Cla ssification 91056-2) of LDL Choleste rol Primary Target of Therapy (in mg/dL):<100 Jtvqnhg231-050 Near optimal/above -300 Borderline high 160-189 High>=190 Very high VLDL (test code = 40 mg/dL 90702-2) Lab Interpretation Abnormal (test code = 25674-3) [facility] [place] cxnbh7675-99-98 16:15:32 Test Item Value Reference Range Interpretation Comments Chol (test code = 246 mg/dL <=199 H ATP III Cl assification 2092-04) of Total Choles terol Primary Target of Therapy (in mg/dL):<200 Ddwimwloj581-81 9 Borderline high >=240 High Trig (test code = 201 mg/dL <=149 H ATP III Cl assification 2571-8) of Serum Trigly cerides Primary Target of Therapy (in mg/dL):<150 Kkwnip007-444 Borderline high 200-499 High>=500 Very highNon-fasting triglycerides > 200 mg/dL may be fo llowed up with a fasti ng Lipid Panel. Calculated LDL- C may be falsely decr eased when non-fastin g triglycerides > 200 mg/dL. HDL (test code = 52 mg/dL >=40 2084-10) LDL (test code = 154 mg/dL <=100 H ATP III Cla ssification 11384-9) of LDL Choleste rol Primary Target of Therapy (in mg/dL):<100 Fwhmshk042-221 Near optimal/above mnwoknv857-629 Borderline high 160-189 High>=190 Very high VLDL (test code = 40 mg/dL 53673-0) Lab Interpretation Abnormal (test code = 66463-5) [facility] wqvvv9829-17-95 16:15:32 Test Item Value Reference Range Interpretation Comments Chol (test code = 246 mg/dL <=199 H ATP III Cl assification 2092-04) of Total Choles terol Primary Target of Therapy (in mg/dL):<200 Zxxcvoipl910-88 9 Borderline high >=240 High Trig (test code = 201 mg/dL <=149 H ATP III Cl assification 2571-8) of Serum Trigly cerides Primary Target of Therapy (in mg/dL):<150 Ctokng732-126 Borderline high 200-499 High>=500 Very highNon-fasting triglycerides > 200 mg/dL may be fo llowed up with a fasti ng Lipid Panel. Calculated LDL- C may be falsely decr eased when non-fastin g triglycerides > 200 mg/dL. HDL (test code = 52 mg/dL >=40 2084-10) LDL (test code = 154 mg/dL <=100 H ATP III Cla ssification 50821-9) of LDL Choleste rol Primary Target of Therapy (in mg/dL):<100 Remruyy864-347 Near optimal/above ukivmkg418-070 Borderline high 160-189 High>=190 Very high VLDL (test code = 40 mg/dL 04826-5) Lab Interpretation Abnormal (test code = 65601-4) [facility] shrkb5774-25-35 16:15:32 Test Item Value Reference Range Interpretation Comments Chol (test code = 246 mg/dL <=199 H ATP III Cl assification 2092-04) of Total Choles terol Primary Target of Therapy (in mg/dL):<200 Iklxlythu212-38 9 Borderline high >=240 High Trig (test code = 201 mg/dL <=149 H ATP III Cl assification 2571-8) of Serum Trigly cerides Primary Target of Therapy (in mg/dL):<150 Ydkhmd021-774 Borderline high 200-499 High>=500 Very highNon-fasting triglycerides > 200 mg/dL may be fo llowed up with a fasti ng Lipid Panel. Calculated LDL- C may be falsely decr eased when non-fastin g triglycerides > 200 mg/dL. HDL (test code = 52 mg/dL >=40 5-9) LDL (test code = 154 mg/dL <=100 H ATP III Cla ssification 33161-9) of LDL Choleste rol Primary Target of Therapy (in mg/dL):<100 Vntyffw934-411 Near optimal/above xnriovb759-537 Borderline high 160-189 High>=190 Very high VLDL (test code = 40 mg/dL 15012-0) Lab Interpretation Abnormal (test code = 92686-0) [facility] jynit9630-32-64 16:15:32 Test Item Value Reference Range Interpretation Comments Chol (test code = 246 mg/dL <=199 H ATP III Cl assification 3-3) of Total Choles terol Primary Target of Therapy (in mg/dL):<200 Wgbmxkypb791-99 9 Borderline high >=240 High Trig (test code = 201 mg/dL <=149 H ATP III Cl assification 2571-8) of Serum Trigly cerides Primary Target of Therapy (in mg/dL):<150 Lidxjt825-829 Borderline high 200-499 High>=500 Very highNon-fasting triglycerides > 200 mg/dL may be fo llowed up with a fasti ng Lipid Panel. Calculated LDL- C may be falsely decr eased when non-fastin g triglycerides > 200 mg/dL. HDL (test code = 52 mg/dL >=40 2084-9) LDL (test code = 154 mg/dL <=100 H ATP III Cla ssification 00949-9) of LDL Choleste rol Primary Target of Therapy (in mg/dL):<100 Vtlsfqs084-344 Near optimal/above azvvrzc661-484 Borderline high 160-189 High>=190 Very high VLDL (test code = 40 mg/dL 90329-7) Lab Interpretation Abnormal (test code = 75674-1) [facility] 15:39:49 Test Item Value Reference Range Interpretation [...] % 0.0-0.4 H IGRE % c ount 34293-5) includes Metamyelocytes, Myelocytes, and Promyelocytes. Neutrophil Abs (test code 2.65 K/uL 1.70-7.30 = 751-8) Lymphocyte Abs (test code 2.55 K/uL 1.00-4.80 = 731-0) Monocyte Abs (test code = 0.50 K/uL 0.08-0.70 742-7) Eosinophil Abs (test code 0.10 K/uL 0.04-0.40 = 711-2) Basophil Abs (test code = 0.04 K/uL 0.00-0.10 704-7) IG Abs (test code = 0.04 K/uL 0.00-0.04 94501-5) Lab Interpretation (test Abnormal code = 13959-9) [facility] DnfszmKwolxajajkxu6448-65-22 15:39:49 Test Item Value Reference Range Interpretation [...] % 0.0-0.4 H IGRE % c ount 43396-0) includes Metamyelocytes, Myelocytes, and Promyelocytes. Neutrophil Abs (test code 2.65 K/uL 1.70-7.30 = 751-8) Lymphocyte Abs (test code 2.55 K/uL 1.00-4.80 = 731-0) Monocyte Abs (test code = 0.50 K/uL 0.08-0.70 742-7) Eosinophil Abs (test code 0.10 K/uL 0.04-0.40 = 711-2) Basophil Abs (test code = 0.04 K/uL 0.00-0.10 704-7) IG Abs (test code = 0.04 K/uL 0.00-0.04 98802-3) Lab Interpretation (test Abnormal code = 22019-0) [facility] 15:39:49 Test Item Value Reference Range Interpretation [...] % 0.0-0.4 H IGRE % c ount 90280-7) includes Metamyelocytes, Myelocytes, and Promyelocytes. Neutrophil Abs (test code 2.65 K/uL 1.70-7.30 = 751-8) Lymphocyte Abs (test code 2.55 K/uL 1.00-4.80 = 731-0) Monocyte Abs (test code = 0.50 K/uL 0.08-0.70 742-7) Eosinophil Abs (test code 0.10 K/uL 0.04-0.40 = 711-2) Basophil Abs (test code = 0.04 K/uL 0.00-0.10 704-7) IG Abs (test code = 0.04 K/uL 0.00-0.04 14744-8) Lab Interpretation (test Abnormal code = 22700-0) [facility] 15:39:49 Test Item Value Reference Range Interpretation [...] % 0.0-0.4 H IGRE % c ount 55712-4) includes Metamyelocytes, Myelocytes, and Promyelocytes. Neutrophil Abs (test code 2.65 K/uL 1.70-7.30 = 751-8) Lymphocyte Abs (test code 2.55 K/uL 1.00-4.80 = 731-0) Monocyte Abs (test code = 0.50 K/uL 0.08-0.70 742-7) Eosinophil Abs (test code 0.10 K/uL 0.04-0.40 = 711-2) Basophil Abs (test code = 0.04 K/uL 0.00-0.10 704-7) IG Abs (test code = 0.04 K/uL 0.00-0.04 21397-6) Lab Interpretation (test Abnormal code = 02968-6) [facility] BmppacAapcijaaeqyd0824-86-39 15:39:49 Test Item Value Reference Range Interpretation [...] % 0.0-0.4 H IGRE % c ount 57391-8) includes Metamyelocytes, Myelocytes, and Promyelocytes. Neutrophil Abs (test code 2.65 K/uL 1.70-7.30 = 751-8) Lymphocyte Abs (test code 2.55 K/uL 1.00-4.80 = 731-0) Monocyte Abs (test code = 0.50 K/uL 0.08-0.70 742-7) Eosinophil Abs (test code 0.10 K/uL 0.04-0.40 = 711-2) Basophil Abs (test code = 0.04 K/uL 0.00-0.10 704-7) IG Abs (test code = 0.04 K/uL 0.00-0.04 20408-4) Lab Interpretation (test Abnormal code = 15013-3) [facility] 15:39:49 Test Item Value Reference Range Interpretation [...] % 0.0-0.4 H IGRE % c ount 72330-2) includes Metamyelocytes, Myelocytes, and Promyelocytes. Neutrophil Abs (test code 2.65 K/uL 1.70-7.30 = 751-8) Lymphocyte Abs (test code 2.55 K/uL 1.00-4.80 = 731-0) Monocyte Abs (test code = 0.50 K/uL 0.08-0.70 742-7) Eosinophil Abs (test code 0.10 K/uL 0.04-0.40 = 711-2) Basophil Abs (test code = 0.04 K/uL 0.00-0.10 704-7) IG Abs (test code = 0.04 K/uL 0.00-0.04 97894-4) Lab Interpretation (test Abnormal code = 75563-1) [facility] 15:39:49 Test Item Value Reference Range Interpretation [...] % 0.0-0.4 H IGRE % c ount 17424-1) includes Metamyelocytes, Myelocytes, and Promyelocytes. Neutrophil Abs (test code 2.65 K/uL 1.70-7.30 = 751-8) Lymphocyte Abs (test code 2.55 K/uL 1.00-4.80 = 731-0) Monocyte Abs (test code = 0.50 K/uL 0.08-0.70 742-7) Eosinophil Abs (test code 0.10 K/uL 0.04-0.40 = 711-2) Basophil Abs (test code = 0.04 K/uL 0.00-0.10 704-7) IG Abs (test code = 0.04 K/uL 0.00-0.04 01835-8) Lab Interpretation (test Abnormal code = 04810-2) [facility] PnoevsQlzujezxohhx0530-55-48 15:39:49 Test Item Value Reference Range Interpretation [...] % 0.0-0.4 H IGRE % c ount 22818-2) includes Metamyelocytes, Myelocytes, and Promyelocytes. Neutrophil Abs (test code 2.65 K/uL 1.70-7.30 = 751-8) Lymphocyte Abs (test code 2.55 K/uL 1.00-4.80 = 731-0) Monocyte Abs (test code = 0.50 K/uL 0.08-0.70 742-7) Eosinophil Abs (test code 0.10 K/uL 0.04-0.40 = 711-2) Basophil Abs (test code = 0.04 K/uL 0.00-0.10 704-7) IG Abs (test code = 0.04 K/uL 0.00-0.04 65864-8) Lab Interpretation (test Abnormal code = 93031-8) [facility] 15:39:49 Test Item Value Reference Range Interpretation [...] % 0.0-0.4 H IGRE % c ount 19242-6) includes Metamyelocytes, Myelocytes, and Promyelocytes. Neutrophil Abs (test code 2.65 K/uL 1.70-7.30 = 751-8) Lymphocyte Abs (test code 2.55 K/uL 1.00-4.80 = 731-0) Monocyte Abs (test code = 0.50 K/uL 0.08-0.70 742-7) Eosinophil Abs (test code 0.10 K/uL 0.04-0.40 = 711-2) Basophil Abs (test code = 0.04 K/uL 0.00-0.10 704-7) IG Abs (test code = 0.04 K/uL 0.00-0.04 03009-8) Lab Interpretation (test Abnormal code = 09899-4) [facility].[id number] 15:39:34 Test Item Value Reference Range Interpretation Comments WBC (test code = 5.9 K/uL 4.0-11.0 6690-2) RBC (test code = 789-8) 4.94 See_Comment [Au tomated message] The system [employer] generated this result transmitted ref erence range: 4.00 - 5 .50 M/uL. The refer ence range was not u sed to interpret this result as normal/abnor mal. Hgb (test code = 718-7) 12.8 See_Comment [Au tomated message] The system [employer] generated this result transmitted ref erence range: [...] See_Comment [Automate d message] 786-4) The system [employer] generated this result transmitted ref erence range: 31.0 - 3 6.0 gm/dL. The refe rence range was not u sed to interpret this result as normal/abnor mal. RDW-SD (test code = 38.0 fL 35.1-46.3 95893-6) RDW-CV (test code = 13.3 % 12.0-15.5 788-0) Platelet count (test 361 K/uL 140-440 code = 777-3) MPV (test code = 9.6 fL 4.0-10.4 11957-7) INRBC (test code = 0.0 % <=0.0 The INRBC (instrument 58524-3) NRBC) value ref lects the enumeration of nucleated red b lood cells contained in a 200uL sampleof whole blood analyzed by the instrument. Thi s value maydiffer from the NRBC value repo rted in a manual differential,wh ich is based on a 100 cell differential. Lab Interpretation Abnormal (test code = 88757-1) [facility] [place].[id number] 15:39:34 Test Item Value Reference Range Interpretation Comments WBC (test code = 5.9 K/uL 4.0-11.0 6690-2) RBC (test code = 789-8) 4.94 See_Comment [Au tomated message] The system [employer] generated this result transmitted ref erence range: 4.00 - 5 .50 M/uL. The refer ence range was not u sed to interpret this result as normal/abnor mal. Hgb (test code = 718-7) 12.8 See_Comment [Au tomated message] The system [employer] generated this result transmitted ref erence range: [...] See_Comment [Automate d message] 786-4) The system [employer] generated this result transmitted ref erence range: 31.0 - 3 6.0 gm/dL. The refe rence range was not u sed to interpret this result as normal/abnor mal. RDW-SD (test code = 38.0 fL 35.1-46.3 65491-5) RDW-CV (test code = 13.3 % 12.0-15.5 788-0) Platelet count (test 361 K/uL 140-440 code = 777-3) MPV (test code = 9.6 fL 4.0-10.4 52217-0) INRBC (test code = 0.0 % <=0.0 The INRBC (instrument 76698-9) NRBC) value ref lects the enumeration of nucleated red b lood cells contained in a 200uL sampleof whole blood analyzed by the instrument. Thi s value maydiffer from the NRBC value repo rted in a manual differential,wh ich is based on a 100 cell differential. Lab Interpretation Abnormal (test code = 27935-5) [facility] [place].[id number] 15:39:34 Test Item Value Reference Range Interpretation Comments WBC (test code = 5.9 K/uL 4.0-11.0 6690-2) RBC (test code = 789-8) 4.94 See_Comment [Au tomated message] The system [employer] generated this result transmitted ref erence range: 4.00 - 5 .50 M/uL. The refer ence range was not u sed to interpret this result as normal/abnor mal. Hgb (test code = 718-7) 12.8 See_Comment [Au tomated message] The system [employer] generated this result transmitted ref erence range: [...] See_Comment [Automate d message] 786-4) The system [employer] generated this result transmitted ref erence range: 31.0 - 3 6.0 gm/dL. The refe rence range was not u sed to interpret this result as normal/abnor mal. RDW-SD (test code = 38.0 fL 35.1-46.3 89245-1) RDW-CV (test code = 13.3 % 12.0-15.5 788-0) Platelet count (test 361 K/uL 140-440 code = 777-3) MPV (test code = 9.6 fL 4.0-10.4 64382-9) INRBC (test code = 0.0 % <=0.0 The INRBC (instrument 83073-5) NRBC) value ref lects the enumeration of nucleated red b lood cells contained in a 200uL sampleof whole blood analyzed by the instrument. Thi s value maydiffer from the NRBC value repo rted in a manual differential,wh ich is based on a 100 cell differential. Lab Interpretation Abnormal (test code = 30300-4) [facility] [place].[id number] 15:39:34 Test Item Value Reference Range Interpretation Comments WBC (test code = 5.9 K/uL 4.0-11.0 6690-2) RBC (test code = 789-8) 4.94 See_Comment [Au tomated message] The system [employer] generated this result transmitted ref erence range: 4.00 - 5 .50 M/uL. The refer ence range was not u sed to interpret this result as normal/abnor mal. Hgb (test code = 718-7) 12.8 See_Comment [Au tomated message] The system [employer] generated this result transmitted ref erence range: [...] See_Comment [Automate d message] 786-4) The system [employer] generated this result transmitted ref erence range: 31.0 - 3 6.0 gm/dL. The refe rence range was not u sed to interpret this result as normal/abnor mal. RDW-SD (test code = 38.0 fL 35.1-46.3 58026-6) RDW-CV (test code = 13.3 % 12.0-15.5 788-0) Platelet count (test 361 K/uL 140-440 code = 777-3) MPV (test code = 9.6 fL 4.0-10.4 21421-2) INRBC (test code = 0.0 % <=0.0 The INRBC (instrument 69700-2) NRBC) value ref lects the enumeration of nucleated red b lood cells contained in a 200uL sampleof whole blood analyzed by the instrument. Thi s value maydiffer from the NRBC value repo rted in a manual differential,wh ich is based on a 100 cell differential. Lab Interpretation Abnormal (test code = 00334-8) [facility] [place].[id number] 15:39:34 Test Item Value Reference Range Interpretation Comments WBC (test code = 5.9 K/uL 4.0-11.0 6690-2) RBC (test code = 789-8) 4.94 See_Comment [Au tomated message] The system [employer] generated this result transmitted ref erence range: 4.00 - 5 .50 M/uL. The refer ence range was not u sed to interpret this result as normal/abnor mal. Hgb (test code = 718-7) 12.8 See_Comment [Au tomated message] The system [employer] generated this result transmitted ref erence range: [...] See_Comment [Automate d message] 786-4) The system [employer] generated this result transmitted ref erence range: 31.0 - 3 6.0 gm/dL. The refe rence range was not u sed to interpret this result as normal/abnor mal. RDW-SD (test code = 38.0 fL 35.1-46.3 32160-3) RDW-CV (test code = 13.3 % 12.0-15.5 788-0) Platelet count (test 361 K/uL 140-440 code = 777-3) MPV (test code = 9.6 fL 4.0-10.4 83965-0) INRBC (test code = 0.0 % <=0.0 The INRBC (instrument 49937-7) NRBC) value ref lects the enumeration of nucleated red b lood cells contained in a 200uL sampleof whole blood analyzed by the instrument. Thi s value maydiffer from the NRBC value repo rted in a manual differential,wh ich is based on a 100 cell differential. Lab Interpretation Abnormal (test code = 58327-8) [facility] [place].[id number] 15:39:34 Test Item Value Reference Range Interpretation Comments WBC (test code = 5.9 K/uL 4.0-11.0 6690-2) RBC (test code = 789-8) 4.94 See_Comment [Au tomated message] The system [employer] generated this result transmitted ref erence range: 4.00 - 5 .50 M/uL. The refer ence range was not u sed to interpret this result as normal/abnor mal. Hgb (test code = 718-7) 12.8 See_Comment [Au tomated message] The system [employer] generated this result transmitted ref erence range: [...] See_Comment [Automate d message] 786-4) The system [employer] generated this result transmitted ref erence range: 31.0 - 3 6.0 gm/dL. The refe rence range was not u sed to interpret this result as normal/abnor mal. RDW-SD (test code = 38.0 fL 35.1-46.3 88658-7) RDW-CV (test code = 13.3 % 12.0-15.5 788-0) Platelet count (test 361 K/uL 140-440 code = 777-3) MPV (test code = 9.6 fL 4.0-10.4 13561-3) INRBC (test code = 0.0 % <=0.0 The INRBC (instrument 40056-7) NRBC) value ref lects the enumeration of nucleated red b lood cells contained in a 200uL sampleof whole blood analyzed by the instrument. Thi s value maydiffer from the NRBC value repo rted in a manual differential,wh ich is based on a 100 cell differential. Lab Interpretation Abnormal (test code = 66557-7) [facility] [place].[id number] 15:39:34 Test Item Value Reference Range Interpretation Comments WBC (test code = 5.9 K/uL 4.0-11.0 6690-2) RBC (test code = 789-8) 4.94 See_Comment [Au tomated message] The system [employer] generated this result transmitted ref erence range: 4.00 - 5 .50 M/uL. The refer ence range was not u sed to interpret this result as normal/abnor mal. Hgb (test code = 718-7) 12.8 See_Comment [Au tomated message] The system [employer] generated this result transmitted ref erence range: [...] See_Comment [Automate d message] 786-4) The system [employer] generated this result transmitted ref erence range: 31.0 - 3 6.0 gm/dL. The refe rence range was not u sed to interpret this result as normal/abnor mal. RDW-SD (test code = 38.0 fL 35.1-46.3 20053-3) RDW-CV (test code = 13.3 % 12.0-15.5 788-0) Platelet count (test 361 K/uL 140-440 code = 777-3) MPV (test code = 9.6 fL 4.0-10.4 06344-0) INRBC (test code = 0.0 % <=0.0 The INRBC (instrument 52030-6) NRBC) value ref lects the enumeration of nucleated red b lood cells contained in a 200uL sampleof whole blood analyzed by the instrument. Thi s value maydiffer from the NRBC value repo rted in a manual differential,wh ich is based on a 100 cell differential. Lab Interpretation Abnormal (test code = 57284-2) [facility].[id number] 15:39:34 Test Item Value Reference Range Interpretation Comments WBC (test code = 5.9 K/uL 4.0-11.0 6690-2) RBC (test code = 789-8) 4.94 See_Comment [Au tomated message] The system [employer] generated this result transmitted ref erence range: 4.00 - 5 .50 M/uL. The refer ence range was not u sed to interpret this result as normal/abnor mal. Hgb (test code = 718-7) 12.8 See_Comment [Au tomated message] The system [employer] generated this result transmitted ref erence range: [...] See_Comment [Automate d message] 786-4) The system [employer] generated this result transmitted ref erence range: 31.0 - 3 6.0 gm/dL. The refe rence range was not u sed to interpret this result as normal/abnor mal. RDW-SD (test code = 38.0 fL 35.1-46.3 74578-4) RDW-CV (test code = 13.3 % 12.0-15.5 788-0) Platelet count (test 361 K/uL 140-440 code = 777-3) MPV (test code = 9.6 fL 4.0-10.4 91991-8) INRBC (test code = 0.0 % <=0.0 The INRBC (instrument 08572-0) NRBC) value ref lects the enumeration of nucleated red b lood cells contained in a 200uL sampleof whole blood analyzed by the instrument. Thi s value maydiffer from the NRBC value repo rted in a manual differential,wh ich is based on a 100 cell differential. Lab Interpretation Abnormal (test code = 35370-1) [facility] [place].[id number] 15:39:34 Test Item Value Reference Range Interpretation Comments WBC (test code = 5.9 K/uL 4.0-11.0 6690-2) RBC (test code = 789-8) 4.94 See_Comment [Au tomated message] The system [employer] generated this result transmitted ref erence range: 4.00 - 5 .50 M/uL. The refer ence range was not u sed to interpret this result as normal/abnor mal. Hgb (test code = 718-7) 12.8 See_Comment [Au tomated message] The system [employer] generated this result transmitted ref erence range: [...] See_Comment [Automate d message] 786-4) The system [employer] generated this result transmitted ref erence range: 31.0 - 3 6.0 gm/dL. The refe rence range was not u sed to interpret this result as normal/abnor mal. RDW-SD (test code = 38.0 fL 35.1-46.3 21044-5) RDW-CV (test code = 13.3 % 12.0-15.5 788-0) Platelet count (test 361 K/uL 140-440 code = 777-3) MPV (test code = 9.6 fL 4.0-10.4 35861-2) INRBC (test code = 0.0 % <=0.0 The INRBC (instrument 07843-2) NRBC) value ref lects the enumeration of nucleated red b lood cells contained in a 200uL sampleof whole blood analyzed by the instrument. Thi s value maydiffer from the NRBC value repo rted in a manual differential,wh ich is based on a 100 cell differential. Lab Interpretation Abnormal (test code = 66536-6) [facility] [id number] 14:14:40 SPECIMEN NUMBER: [id number] CULTURE, URINE SPECIMEN NUMBER: [id number] SPECIMEN COMMENT: URINE SOURCE:URINE REPORT STATUS: FINAL [...] SENSITIVE <=16TETRACYCLINE SENSITIVE <=4TOBRAMYCIN SENSITIVE <=4TRIMETH/SULFA RESISTANT >2/38 NOTE: NUMBERS DISPLAYED REPRESENT MINIMUM INHIBITORY CONCENTRATION (IRVIN) WHICH IS EXPRESSED IN MCG/ML. [facility] has important pathology staff changes effective 04/24/2022. New pathology staff will provide uninterrupted, excellent patient care and clinical consultation. See URL: [email or web address]. UNLESS OTHERWISE INDICATED, ALL TESTING PERFORMED AT [facility] [address] [place] [address] OIL AND GAS DRAFTER: ORTIZ MARES M.D. CLIA NUMBER [id number] [place]. [id number] Culture w/[id number] 22:56:44 Test Item Value Reference Range Interpretation Comments Final Report (test No acid fast bacteria code = 8488) isolated at 8 weeks. Path Review - AFB Culture yield may be (test code = 8477) affected by sample quality, prior treatment, and transportation conditions....The results have been reviewed and electronically signed by Pathologist:Bal Mckeon MD, PhD #[id number] Acid Fast Stain No Acid Fast Bacilli seen Truant (test code = in direct smear 17987-7) CHANDRAKANT (test code = Cultures are held 8 weeks CHANDRAKANT) [facility]. [facility]/[id number] 22:56:44 Test Item Value Reference Range Interpretation Comments Final Report (test No acid fast bacteria code = 8488) isolated at 8 weeks. Path Review - AFB Culture yield may be (test code = 8477) affected by sample quality, prior treatment, and transportation conditions....The results have been reviewed and electronically signed by Pathologist:Bal Mckeon MD, PhD #[id number] Acid Fast Stain No Acid Fast Bacilli seen Truant (test code = in direct smear 21525-5) CHANDRAKANT (test code = Cultures are held 8 weeks CHANDRAKANT) before finalization. [facility] w/[id number] 22:56:44 Test Item Value Reference Range Interpretation Comments Final Report (test No acid fast bacteria code = 8488) isolated at 8 weeks. Path Review - AFB Culture yield may be (test code = 8477) affected by sample quality, prior treatment, and transportation conditions....The results have been reviewed and electronically signed by Pathologist:Bal Mckeon MD, PhD #[id number] Acid Fast Stain No Acid Fast Bacilli seen Truant (test code = in direct smear 08549-9) CHANDRAKANT (test code = Cultures are held 8 weeks CHANDRAKANT) before finalization. [facility] w/[id number] 22:56:44 Test Item Value Reference Range Interpretation Comments Final Report (test No acid fast bacteria code = 8488) isolated at 8 weeks. Path Review - AFB Culture yield may be (test code = 8477) affected by sample quality, prior treatment, and transportation conditions....The results have been reviewed and electronically signed by Pathologist:Bal Mckeon MD, PhD #[id number] Acid Fast Stain No Acid Fast Bacilli seen Truant (test code = in direct smear 46891-4) CHANDRAKANT (test code = Cultures are held 8 weeks CHANDRAKANT) before finalization. [facility] w/[id number] 22:56:44 Test Item Value Reference Range Interpretation Comments Final Report (test No acid fast bacteria code = 8488) isolated at 8 weeks. Path Review - AFB Culture yield may be (test code = 8477) affected by sample quality, prior treatment, and transportation conditions....The results have been reviewed and electronically signed by Pathologist:Bal Mckeon MD, PhD #[id number] Acid Fast Stain No Acid Fast Bacilli seen Truant (test code = in direct smear 26756-5) CHANDRAKANT (test code = Cultures are held 8 weeks CHANDRAKANT) before finalization. [facility] w/[id number] 22:56:44 Test Item Value Reference Range Interpretation Comments Final Report (test No acid fast bacteria code = 8488) isolated at 8 weeks. Path Review - AFB Culture yield may be (test code = 8477) affected by sample quality, prior treatment, and transportation conditions....The results have been reviewed and electronically signed by Pathologist:Bal Mckeon MD, PhD #[id number] Acid Fast Stain No Acid Fast Bacilli seen Truant (test code = in direct smear 95067-2) CHANDRAKANT (test code = Cultures are held 8 weeks CHANDRAKANT) before finalization. [facility] w/[id number] 22:56:44 Test Item Value Reference Range Interpretation Comments Final Report (test No acid fast bacteria code = 8488) isolated at 8 weeks. Path Review - AFB Culture yield may be (test code = 8477) affected by sample quality, prior treatment, and transportation conditions....The results have been reviewed and electronically signed by Pathologist:Bal Mckeon MD, PhD #[id number] Acid Fast Stain No Acid Fast Bacilli seen Truant (test code = in direct smear 14189-9) CHANDRAKANT (test code = Cultures are held 8 weeks CHANDRAKANT) before finalization. [facility] w/[id number] 22:56:44 Test Item Value Reference Range Interpretation Comments Final Report (test No acid fast bacteria code = 8488) isolated at 8 weeks. Path Review - AFB Culture yield may be (test code = 8477) affected by sample quality, prior treatment, and transportation conditions....The results have been reviewed and electronically signed by Pathologist:Bal Mckeon MD, PhD #[id number] Acid Fast Stain No Acid Fast Bacilli seen Truant (test code = in direct smear 95135-3) CHANDRAKANT (test code = Cultures are held 8 weeks CHANDRAKANT) before finalization. [facility] w/[id number] 22:56:44 Test Item Value Reference Range Interpretation Comments Final Report (test No acid fast bacteria code = 8488) isolated at 8 weeks. Path Review - AFB Culture yield may be (test code = 8477) affected by sample quality, prior treatment, and transportation conditions....The results have been reviewed and electronically signed by Pathologist:Bal Mckeon MD, PhD #[id number] Acid Fast Stain No Acid Fast Bacilli seen Truant (test code = in direct smear 53620-0) CHANDRAKANT (test code = Cultures are held 8 weeks CHANDRAKANT) before finalization. [facility] w/[id number] 22:56:44 Test Item Value Reference Range Interpretation Comments Final Report (test No acid fast bacteria code = 8488) isolated at 8 weeks. Path Review - AFB Culture yield may be (test code = 8477) affected by sample quality, prior treatment, and transportation conditions....The results have been reviewed and electronically signed by Pathologist:Bal Mckeon MD, PhD #[id number] Acid Fast Stain No Acid Fast Bacilli seen Truant (test code = in direct smear 03264-2) CHANDRAKANT (test code = Cultures are held 8 weeks CHANDRAKANT) before finalization. [facility] w/[id number] 22:56:44 Test Item Value Reference Range Interpretation Comments Final Report (test No acid fast bacteria code = 8488) isolated at 8 weeks. Path Review - AFB Culture yield may be (test code = 8477) affected by sample quality, prior treatment, and transportation conditions....The results have been reviewed and electronically signed by Pathologist:Bal Mckeon MD, PhD #[id number] Acid Fast Stain No Acid Fast Bacilli seen Truant (test code = in direct smear 21108-5) CHANDRAKANT (test code = Cultures are held 8 weeks CHANDRAKANT) before finalization. [facility] w/[id number] 22:56:44 Test Item Value Reference Range Interpretation Comments Final Report (test No acid fast bacteria code = 8488) isolated at 8 weeks. Path Review - AFB Culture yield may be (test code = 8477) affected by sample quality, prior treatment, and transportation conditions....The results have been reviewed and electronically signed by Pathologist:Bal Mckeon MD, PhD #[id number] Acid Fast Stain No Acid Fast Bacilli seen Truant (test code = in direct smear 42761-2) CHANDRAKANT (test code = Cultures are held 8 weeks CHANDRAKANT) before finalization. [facility] w/[id number] 22:56:44 Test Item Value Reference Range Interpretation Comments Final Report (test No acid fast bacteria code = 8488) isolated at 8 weeks. Path Review - AFB Culture yield may be (test code = 8477) affected by sample quality, prior treatment, and transportation conditions....The results have been reviewed and electronically signed by Pathologist:Bal Mckeon MD, PhD #[id number] Acid Fast Stain No Acid Fast Bacilli seen Truant (test code = in direct smear 78967-0) CHANDRAKANT (test code = Cultures are held 8 weeks CHANDRAKANT) before finalization. [facility] w/[id number] 22:56:44 Test Item Value Reference Range Interpretation Comments Final Report (test No acid fast bacteria code = 8488) isolated at 8 weeks. Path Review - AFB Culture yield may be (test code = 8477) affected by sample quality, prior treatment, and transportation conditions....The results have been reviewed and electronically signed by Pathologist:Bal Mckeon MD, PhD #[id number] Acid Fast Stain No Acid Fast Bacilli seen Truant (test code = in direct smear 31113-0) CHANDRAKANT (test code = Cultures are held 8 weeks CHANDRAKANT) before finalization. [facility] w/[id number] 22:56:44 Test Item Value Reference Range Interpretation Comments Final Report (test No acid fast bacteria code = 8488) isolated at 8 weeks. Path Review - AFB Culture yield may be (test code = 8477) affected by sample quality, prior treatment, and transportation conditions....The results have been reviewed and electronically signed by Pathologist:Bal Mckeon MD, PhD #[id number] Acid Fast Stain No Acid Fast Bacilli seen Truant (test code = in direct smear 97284-1) CHANDRAKANT (test code = Cultures are held 8 weeks CHANDRAKANT) before finalization. [facility] [id number] 13:19:05 SPECIMEN NUMBER: [id number] CULTURE, URINE SPECIMEN NUMBER: [id number] SPECIMEN COMMENT: URINE SOURCE:URINE REPORT STATUS: FINAL ISOLATE NUMBER 1: ORGANISM: 05/08/2022 >100,000 CFU/ML GRAM NEGATIVE BACILLI IDENTIFICATION: 05/09/2022 PROTEUS MIRABILIS P. MIRABILIS AMOXICILLIN/CA SENSITIVE <=8/4AMPICILLIN RESISTANT >16CEFAZOLIN INTERMED 16CEFTRIAXONE SENSITIVE <=1CIPROFLOXACIN SENSITIVE <=1LEVOFLOXACIN SENSITIVE <=2NITROFURANTOIN RESISTANT >64PIP/TAZOBAC SENSITIVE <=16TETRACYCLINE RESISTANT >8TOBRAMYCIN SENSITIVE <=4TRIMETH/SULFA RESISTANT >2/38 NOTE: NUMBERS DISPLAYED REPRESENT MINIMUM INHIBITORY CONCENTRATION (IRVIN) WHICH IS EXPRESSED IN MCG/ML.VAGINAL PATHOGENS DNA [id number] 14:57:29 Test Item Value Reference Range Interpretation Comments ADELSO SPECIES NEGATIVE NEGATIVE (test code = ) G. VAGINALIS POSITIVE NEGATIVE A (test code = ) T. VAGINALIS NEGATIVE NEGATIVE Note: The A ffirm VPIII (test code = Microbial Ident ification ) Testis a DNA pr obe test intended for us e in the detectionand id entification of Adelso spec ies, Gardnerellavagi nalis and Trichomonas vag inalis nucleic acid. * [facility] has important patho logy staff changes effecti ve 04/24/2022. New pathology staff will provide uninterrupted, excellent patient care an d clinical consultation. S ee URL: [email or web address]. UNLESS OTHE RWISE INDICATED, ALL [facility] [address] [place] [address] LABORATOR Y DIRECTOR: ORTIZ FOX M.D. CLIA NUMBER [id number] [facility] ACCREDITATION N O. [id number] Fungus [id number] 22:14:47 Test Item Value Reference Range Interpretation Comments Final Report (test No Fungi isolated. code = 8488) Path Review - Culture yield may be Fungus (test code = affected by sample 8479) quality, prior treatment, and transportation conditions. The results have been reviewed and electronically signed by Pathologist:Abiodun Vázquez MD, PhD #[id number] CHANDRAKANT (test code = Cultures are held for 4 CHANDRAKANT) weeks before finalization. [facility] Kkwteku4135-65-25 22:14:47 Test Item Value Reference Range Interpretation Comments Final Report (test No Fungi isolated. code = 8488) Path Review - Culture yield may be Fungus (test code = affected by sample 8479) quality, prior treatment, and transportation conditions. The results have been reviewed and electronically signed by Pathologist:Abiodun Vázquez MD, PhD #[id number] CHANDRAKANT (test code = Cultures are held for 4 CHANDRAKANT) weeks before finalization. [facility] Ojpapzr7854-51-50 22:14:47 Test Item Value Reference Range Interpretation Comments Final Report (test No Fungi isolated. code = 8488) Path Review - Culture yield may be Fungus (test code = affected by sample 8479) quality, prior treatment, and transportation conditions. The results have been reviewed and electronically signed by Pathologist:Abiodun Vázquez MD, PhD #[id number] CHANDRAKANT (test code = Cultures are held for 4 CHANDRAKANT) weeks before finalization. [facility] Rgzvppe2607-28-69 22:14:47 Test Item Value Reference Range Interpretation Comments Final Report (test No Fungi isolated. code = 8488) Path Review - Culture yield may be Fungus (test code = affected by sample 8479) quality, prior treatment, and transportation conditions. The results have been reviewed and electronically signed by Pathologist:Abiodun Vázquez MD, PhD #[id number] CHANDRAKANT (test code = Cultures are held for 4 CHANDRAKANT) weeks before finalization. [facility] Rpwgiek9299-45-41 22:14:47 Test Item Value Reference Range Interpretation Comments Final Report (test No Fungi isolated. code = 8488) Path Review - Culture yield may be Fungus (test code = affected by sample 8479) quality, prior treatment, and transportation conditions. The results have been reviewed and electronically signed by Pathologist:Abiodun Vázquez MD, PhD #[id number] CHANDRAKANT (test code = Cultures are held for 4 CHANDRAKANT) weeks before finalization. [facility] Wauoslr0543-52-98 22:14:47 Test Item Value Reference Range Interpretation Comments Final Report (test No Fungi isolated. code = 8488) Path Review - Culture yield may be Fungus (test code = affected by sample 8479) quality, prior treatment, and transportation conditions. The results have been reviewed and electronically signed by Pathologist:Abiodun Vázquez MD, PhD #[id number] CHANDRAKANT (test code = Cultures are held for 4 CHANDRAKANT) weeks before finalization. [facility]2023-03-01 22:14:47 Test Item Value Reference Range Interpretation Comments Final Report (test No Fungi isolated. code = 8488) Path Review - Culture yield may be Fungus (test code = affected by sample 8479) quality, prior treatment, and transportation conditions. The results have been reviewed and electronically signed by Pathologist:Abiodun Vázquez MD, PhD #[id number] CHANDRAKANT (test code = Cultures are held for 4 CHANDRAKANT) weeks before finalization. [facility] Hsqitrg5579-70-69 22:14:47 Test Item Value Reference Range Interpretation Comments Final Report (test No Fungi isolated. code = 8488) Path Review - Culture yield may be Fungus (test code = affected by sample 8479) quality, prior treatment, and transportation conditions. The results have been reviewed and electronically signed by Pathologist:Abiodun Vázquez MD, PhD #[id number] CHANDRAKANT (test code = Cultures are held for 4 CHANDRAKANT) weeks before finalization. [facility] Ffggmjj2056-81-50 22:14:47 Test Item Value Reference Range Interpretation Comments Final Report (test No Fungi isolated. code = 8488) Path Review - Culture yield may be Fungus (test code = affected by sample 8479) quality, prior treatment, and transportation conditions. The results have been reviewed and electronically signed by Pathologist:Abiodun Vázquez MD, PhD #[id number] CHANDRAKANT (test code = Cultures are held for 4 CHANDRAKANT) weeks before finalization. [facility]2023-03-01 22:14:47 Test Item Value Reference Range Interpretation Comments Final Report (test No Fungi isolated. code = 8488) Path Review - Culture yield may be Fungus (test code = affected by sample 8479) quality, prior treatment, and transportation conditions. The results have been reviewed and electronically signed by Pathologist:Abiodun Vázquez MD, PhD #[id number] CHANDRAKANT (test code = Cultures are held for 4 CHANDRAKANT) weeks before finalization. [facility]2023-03-01 22:14:47 Test Item Value Reference Range Interpretation Comments Final Report (test No Fungi isolated. code = 8488) Path Review - Culture yield may be Fungus (test code = affected by sample 8479) quality, prior treatment, and transportation conditions. The results have been reviewed and electronically signed by Pathologist:Abiodun Vázquez MD, PhD #[id number] CHANDRAKANT (test code = Cultures are held for 4 CHANDRAKANT) weeks before finalization. [facility]2023-03-01 22:14:47 Test Item Value Reference Range Interpretation Comments Final Report (test No Fungi isolated. code = 8488) Path Review - Culture yield may be Fungus (test code = affected by sample 8479) quality, prior treatment, and transportation conditions. The results have been reviewed and electronically signed by Pathologist:Abiodun Vázquez MD, PhD #[id number] CHANDRAKANT (test code = Cultures are held for 4 CHANDRAKANT) weeks before finalization. [facility] [id number] 22:14:47 Test Item Value Reference Range Interpretation Comments Final Report (test No Fungi isolated. code = 8488) Path Review - Culture yield may be Fungus (test code = affected by sample 8479) quality, prior treatment, and transportation conditions. The results have been reviewed and electronically signed by Pathologist:Abiodun Vázquez MD, PhD #[id number] CHANDRAKANT (test code = Cultures are held for 4 CHANDRAKANT) weeks before finalization. [facility] Lfsollw3379-29-46 22:14:47 Test Item Value Reference Range Interpretation Comments Final Report (test No Fungi isolated. code = 8488) Path Review - Culture yield may be Fungus (test code = affected by sample 8479) quality, prior treatment, and transportation conditions. The results have been reviewed and electronically signed by Pathologist:Abiodun Vázquez MD, PhD #[id number] CHANDRAKANT (test code = Cultures are held for 4 CHANDRAKANT) weeks before finalization. [facility]2023-03-01 22:14:47 Test Item Value Reference Range Interpretation Comments Final Report (test No Fungi isolated. code = 8488) Path Review - Culture yield may be Fungus (test code = affected by sample 8479) quality, prior treatment, and transportation conditions. The results have been reviewed and electronically signed by Pathologist:Abiodun Vázquez MD, PhD #[id number] CHANDRAKANT (test code = Cultures are held for 4 CHANDRAKANT) weeks before finalization. [facility]2023-03-01 22:14:47 Test Item Value Reference Range Interpretation Comments Final Report (test No Fungi isolated. code = 8488) Path Review - Culture yield may be Fungus (test code = affected by sample 8479) quality, prior treatment, and transportation conditions. The results have been reviewed and electronically signed by Pathologist:Abiodun Vázquez MD, PhD #[id number] CHANDRAKANT (test code = Cultures are held for 4 CHANDRAKANT) weeks before finalization. [facility] Dtvphlf7982-16-23 22:42:26 Test Item Value Reference Range Interpretation Comments Final Report (test No Legionella species code = 8488) isolated Path Review - The results have been Legionella (test code reviewed and = 8480) electronically signed by Pathologist:Abiodun Vázquez MD, PhD #[id number] [facility]landUgacfjr5557-56-25 22:42:26 Test Item Value Reference Range Interpretation Comments Final Report (test No Legionella species code = 8488) isolated Path Review - The results have been Legionella (test code reviewed and = 8480) electronically signed by Pathologist:Abiodun Vázquez MD, PhD #[id number] [facility]landMevogfw3365-74-75 22:42:26 Test Item Value Reference Range Interpretation Comments Final Report (test No Legionella species code = 8488) isolated Path Review - The results have been Legionella (test code reviewed and = 8480) electronically signed by Pathologist:Abiodun Vázquez MD, PhD #[id number] [facility] Ihhwxjq4151-10-21 22:42:26 Test Item Value Reference Range Interpretation Comments Final Report (test No Legionella species code = 8488) isolated Path Review - The results have been Legionella (test code reviewed and = 8480) electronically signed by Pathologist:Abiodun Vázquez MD, PhD #[id number] [facility] Ajodlay6648-54-38 22:42:26 Test Item Value Reference Range Interpretation Comments Final Report (test No Legionella species code = 8488) isolated Path Review - The results have been Legionella (test code reviewed and = 8480) electronically signed by Pathologist:Abiodun Vázquez MD, PhD #[id number] [facility] Pkqlshg7670-15-66 22:42:26 Test Item Value Reference Range Interpretation Comments Final Report (test No Legionella species code = 8488) isolated Path Review - The results have been Legionella (test code reviewed and = 8480) electronically signed by Pathologist:Abiodun Vázquez MD, PhD #[id number] [facility] Mdjvxcd8086-25-85 22:42:26 Test Item Value Reference Range Interpretation Comments Final Report (test No Legionella species code = 8488) isolated Path Review - The results have been Legionella (test code reviewed and = 8480) electronically signed by Pathologist:Abiodun Vázquez MD, PhD #[id number] [facility] MainlandUwuckdu5011-88-43 22:42:26 Test Item Value Reference Range Interpretation Comments Final Report (test No Legionella species code = 8488) isolated Path Review - The results have been Legionella (test code reviewed and = 8480) electronically signed by Pathologist:Abiodun Vázquez MD, PhD #[id number] [facility]2023-02-07 22:42:26 Test Item Value Reference Range Interpretation Comments Final Report (test No Legionella species code = 8488) isolated Path Review - The results have been Legionella (test code reviewed and = 8480) electronically signed by Pathologist:Abiodun Vázquez MD, PhD #[id number] [place] 410693-02-07 22:42:26 Test Item Value Reference Range Interpretation Comments Final Report (test No Legionella species code = 8488) isolated Path Review - The results have been Legionella (test code reviewed and = 8480) electronically signed by Pathologist:Abiodun Vázquez MD, PhD #[id number] [facility] MainlandJcfvspf3744-65-05 22:42:26 Test Item Value Reference Range Interpretation Comments Final Report (test No Legionella species code = 8488) isolated Path Review - The results have been Legionella (test code reviewed and = 8480) electronically signed by Pathologist:Abiodun Vázquez MD, PhD #[id number] [facility]2023-02-07 22:42:26 Test Item Value Reference Range Interpretation Comments Final Report (test No Legionella species code = 8488) isolated Path Review - The results have been Legionella (test code reviewed and = 8480) electronically signed by Pathologist:Abiodun Vázquez MD, PhD #[id number] [facility]2023-02-07 22:42:26 Test Item Value Reference Range Interpretation Comments Final Report (test No Legionella species code = 8488) isolated Path Review - The results have been Legionella (test code reviewed and = 8480) electronically signed by Pathologist:Abiodun Vázquez MD, PhD #[id number] [facility]ione[facility] MainlandEqzwxif6837-70-48 22:42:26 Test Item Value Reference Range Interpretation Comments Final Report (test No Legionella species code = 8488) isolated Path Review - The results have been Legionella (test code reviewed and = 8480) electronically signed by Pathologist:Abiodun Vázquez MD, PhD #[id number] [facility] MainlandBbjtujx9288-39-78 22:42:26 Test Item Value Reference Range Interpretation Comments Final Report (test No Legionella species code = 8488) isolated Path Review - The results have been Legionella (test code reviewed and = 8480) electronically signed by Pathologist:Abiodun Vázquez MD, PhD #[id number] [facility] MainlandOheeycs3131-95-64 22:42:26 Test Item Value Reference Range Interpretation Comments Final Report (test No Legionella species code = 8488) isolated Path Review - The results have been Legionella (test code reviewed and = 8480) electronically signed by Pathologist:Abiodun Vázquez MD, PhD #[id number] [facility] FuxwdiVvjgriazucwz2410-98-72 14:51:34 Test Item Value Reference Range Interpretation Comments Neutrophil % (test See Note 42.0-66.0 Clotted s ampleNotified code = 770-8) Nurse Adeolatcy a t 04/02/2022 8:47:15 AM CSTN jerod will recollectFSCorr ected from 54.0 % on 04/02 8:51:32 COLORIST DYER by Randa Quintanilla. Lymphocyte % (test See Note 24.0-44.0 Clotted s ampleNotified code = 736-9) Nurse Bettcy a t 04/02/2022 8:47:15 AM CSTN jerod will recollectFSCorr ected from 37.5 % on 04/02 8:51:32 COLORIST DYER by Randa Quintanilla. Monocyte % (test See Note 2.0-7.0 Clotted oralia pleNotified code = 5905-5) Nurse Adeolatcy at 04/02/2022 8:47:15 AM CSTN jerod will recollectFSCorr ected from 5.0 % on 8:51:32 COLORIST DYER by Randa Quintanilla. Eosinophil % (test See Note 1.0-4.0 Clotted s ampleNotified code = 713-8) Nurse Adeolatcy a t 04/02/2022 8:47:15 AM CSTN jerod will recollectFSCorr ected from 0.8 % [LOW] on 04/02/22 8:51:32 COLORIST DYER by Randa Lorenz. Basophil % (test See Note 0.0-1.0 Clotted oralia pleNotified code = 706-2) Nurse Bettcy a t 04/02/2022 8:47:15 AM CSTN jerod will recollectFSCorr ected from 0.2 % on 8:51:32 COLORIST DYER by Randa Quintanilla. IGRE % (test code See Note 0.0-0.4 Clotted sa mpleNotified = 63146-0) Nurse Adeolatcsavanah at 04/02/2022 8:47:15 AM CSTCordelia newsome will recollectFSIGRE % count includes Metamy elocytes, Myelocytes, and Promyelocytes.I GRE % count includes Metamy elocytes, Myelocytes, and Promyelocytes.C orrected from 2.5 % [HI] on 04/02/22 8:51:32 COLORIST DYER by Randa Lorezn. Neutrophil Abs See Note 1.70-7.30 Clotted sampl eNotified (test code = Nurse Bettcy at 04/02/2022 751-8) 8:47:15 AM CSTCordelia newsome will recollectFSCorr ected from 6.86 K/uL on 8:51:32 COLORIST DYER by Randa Lorenz. Lymphocyte Abs See Note 1.00-4.80 Clotted sampl eNotified (test code = Nurse Bettcy at 04/02/2022 731-0) 8:47:15 AM CSTN jerod will recollectFSCorr ected from 4.77 K/uL on 8:51:32 COLORIST DYER by Randa Lorenz. Monocyte Abs (test See Note 0.08-0.70 Clotted s ampleNotified code = 742-7) Nurse Bettcy a t 04/02/2022 8:47:15 AM CSTCordelia newsome will recollectFSCorr ected from 0.63 K/uL on 8:51:32 COLORIST DYER by Randa Lorenz. Eosinophil Abs See Note 0.04-0.40 Clotted sampl eNotified (test code = Nurse Bettcy at 04/02/2022 711-2) 8:47:15 AM CSTCordelia newsome will recollectFSCorr ected from 0.10 K/uL on 8:51:32 COLORIST DYER by Randa Lorenz. Basophil Abs (test See Note 0.00-0.10 Clotted s ampleNotified code = 704-7) Nurse Bettcy a t 04/02/2022 8:47:15 AM CSTN jerod will recollectFSCorr ected from 0.03 K/uL on 8:51:32 COLORIST DYER by Randa Lorenz. IG Abs (test code See Note 0.00-0.04 Clotted sa mpleNotified = 68086-2) [facility]/02/[facility]22 8:47:15 AM CSTN jerod will recollectFSCorr ected from 0.32 K/uL [HI] on 04/02/22 8:51:32 COLORIST DYER by Randa Lorenz. [facility] RssrqzCpsdabztvajd3433-89-82 14:51:34 Test Item Value Reference Range Interpretation Comments Neutrophil % (test See Note 42.0-66.0 Clotted s ampleNotified code = 770-8) [facility]22 8:47:15 AM CSTN jerod will recollectFSCorr ected from 54.0 % on 04/02 8:51:32 COLORIST DYER by Randa Quintanilla. Lymphocyte % (test See Note 24.0-44.0 Clotted s ampleNotified code = 736-9) [facility] 04/02/2022 8:47:15 AM CSTN jerod will recollectFSCorr ected from 37.5 % on 04/02 8:51:32 COLORIST DYER by Randa Quintanilla. Monocyte % (test See Note 2.0-7.0 Clotted oralia pleNotified code = 5905-5) [facility] 04/02/2022 8:47:15 AM CSTN jessicae will recollectFSCorr ected from 5.0 % on 8:51:32 COLORIST DYER by Randa Quintanilla. Eosinophil % (test See Note 1.0-4.0 Clotted s ampleNotified code = 713-8) [facility] 04/02/2022 8:47:15 AM CSTN jessicae will recollectFSCorr ected from 0.8 % [LOW] on 04/02/22 8:51:32 COLORIST DYER by Randa Lorenz. Basophil % (test See Note 0.0-1.0 Clotted oralia pleNotified code = 706-2) Nurse [place] a t 04/02/2022 8:47:15 AM CSTCordelia newsome will recollectFSCorr ected from 0.2 % on 8:51:32 COLORIST DYER by Randa Quintanilla. IGRE % (test code See Note 0.0-0.4 Clotted sa mpleNotified = 81253-2) Nurse Bettcsavanah at 04/02/2022 8:47:15 AM CSTCordelia newsome will recollectFSIGRE % count includes Metamy elocytes, Myelocytes, and Promyelocytes.I GRE % count includes Metamy elocytes, Myelocytes, and Promyelocytes.C orrected from 2.5 % [HI] on 04/02/22 8:51:32 COLORIST DYER by Randa Lorenz. Neutrophil Abs See Note 1.70-7.30 Clotted sampl eNotified (test code = Nurse Adeolatcsavanah at 04/02/2022 751-8) 8:47:15 AM CSTCordelia newsome will recollectFSCorr ected from 6.86 K/uL on 8:51:32 COLORIST DYER by Randa Lorenz. Lymphocyte Abs See Note 1.00-4.80 Clotted sampl eNotified (test code = Nurse Adeolatcsavanah at 04/02/2022 731-0) 8:47:15 AM CSTCordelia newsome will recollectFSCorr ected from 4.77 K/uL on 8:51:32 COLORIST DYER by Randa Lorenz. Monocyte Abs (test See Note 0.08-0.70 Clotted s ampleNotified code = 742-7) Nurse Troy a t 04/02/2022 8:47:15 AM CSTCordelia newsome will recollectFSCorr ected from 0.63 K/uL on 8:51:32 COLORIST DYER by Randa Lorenz. Eosinophil Abs See Note 0.04-0.40 Clotted sampl eNotified (test code = Nurse Adeolatcsavanah at 04/02/2022 711-2) 8:47:15 AM CSTN jerod will recollectFSCorr ected from 0.10 K/uL on 8:51:32 COLORIST DYER by Randa Lorenz. Basophil Abs (test See Note 0.00-0.10 Clotted s ampleNotified code = 704-7) Nurse dAeolasavanah a t 04/02/2022 8:47:15 AM CSTN jerod will recollectFSCorr ected from 0.03 K/uL on 8:51:32 COLORIST DYER by Randa Lorenz. IG Abs (test code See Note 0.00-0.04 Clotted sa mpleNotified = 87305-9) Nurse Adeolasavanah at 04/02/2022 8:47:15 AM CSTN jerod will recollectFSCorr ected from 0.32 K/uL [HI] on 04/02/22 8:51:32 COLORIST DYER by Randa Lorenz. [facility] FiclmpVfibvdoqdgql9164-87-19 14:51:34 Test Item Value Reference Range Interpretation Comments Neutrophil % (test See Note 42.0-66.0 Clotted s ampleNotified code = 770-8) Nurse Adeolasavanah a t 04/02/2022 8:47:15 AM CSTCordelia newsome will recollectFSCorr ected from 54.0 % on 04/02 8:51:32 COLORIST DYER by Randa Quintanilla. Lymphocyte % (test See Note 24.0-44.0 Clotted s ampleNotified code = 736-9) Nurse Adeolasavanah a 04/02/2022 8:47:15 AM CSTN jerod will recollectFSCorr ected from 37.5 % on 04/02 8:51:32 COLORIST DYER by Randa Quintanilla. Monocyte % (test See Note 2.0-7.0 Clotted oralia pleNotified code = 5905-5) Nurse [facility] at 04/02/2022 8:47:15 AM CSTN jerod will recollectFSCorr ected from 5.0 % on 8:51:32 COLORIST DYER by Randa Quintanilla. Eosinophil % (test See Note 1.0-4.0 Clotted s ampleNotified code = 713-8) Nurse Troy jorge t 04/02/2022 8:47:15 AM CSTCordelia newsome will recollectFSCorr ected from 0.8 % [LOW] on 04/02/22 8:51:32 COLORIST DYER by Randa Lorenz. Basophil % (test See Note 0.0-1.0 Clotted oralia pleNotified code = 706-2) Nurse Troy jorge t 04/02/2022 8:47:15 AM CSTCordelia newsome will recollectFSCorr ected from 0.2 % on 8:51:32 COLORIST DYER by Randa Quintanilla. IGRE % (test code See Note 0.0-0.4 Clotted sa mpleNotified = 64326-6) Nurse Troy at 04/02/2022 8:47:15 AM CSTCordelia newsome will recollectFSIGRE % count includes Metamy elocytes, Myelocytes, and Promyelocytes.I GRE % count includes Metamy elocytes, Myelocytes, and Promyelocytes.C orrected from 2.5 % [HI] on 04/02/22 8:51:32 COLORIST DYER by Randa Lorenz. Neutrophil Abs See Note 1.70-7.30 Clotted sampl eNotified (test code = Nurse Troy at 04/02/2022 751-8) 8:47:15 AM CSTCordelia newsome will recollectFSCorr ected from 6.86 K/uL on 8:51:32 COLORIST DYER by Randa Lorenz. Lymphocyte Abs See Note 1.00-4.80 Clotted sampl eNotified (test code = Nurse Troy at 04/02/2022 731-0) 8:47:15 AM CHRIS newsome will recollectFSCorr ected from 4.77 K/uL on 8:51:32 COLORIST DYER by Randa Lorenz. Monocyte Abs (test See Note 0.08-0.70 Clotted s ampleNotified code = 742-7) Nurse Adeolatcsavanah a t 04/02/2022 8:47:15 AM CSTN jerod will recollectFSCorr ected from 0.63 K/uL on 8:51:32 COLORIST DYER by Randa Lorenz. Eosinophil Abs See Note 0.04-0.40 Clotted sampl eNotified (test code = Nurse Bettcy at 04/02/2022 711-2) 8:47:15 AM CSTN jerod will recollectFSCorr ected from 0.10 K/uL on 8:51:32 COLORIST DYER by Randa Lorenz. Basophil Abs (test See Note 0.00-0.10 Clotted s ampleNotified code = 704-7) Nurse Adeolatcsavanah a t 04/02/2022 8:47:15 AM CSTN jerod will recollectFSCorr ected from 0.03 K/uL on 8:51:32 COLORIST DYER by Randa Lorenz. IG Abs (test code See Note 0.00-0.04 Clotted sa mpleNotified = 47753-4) Nurse Adeolatcsavanah at 04/02/2022 8:47:15 AM CSTN jerod will recollectFSCorr ected from 0.32 K/uL [HI] on 04/02/22 8:51:32 COLORIST DYER by Randa Lorenz. [facility] WsvmdkSufhqawhpeec7118-01-69 14:51:34 Test Item Value Reference Range Interpretation Comments Neutrophil % (test See Note 42.0-66.0 Clotted s ampleNotified code = 770-8) Nurse Adeolatcy a t 04/02/2022 8:47:15 AM CSTN jerod will recollectFSCorr ected from 54.0 % on 04/02 8:51:32 COLORIST DYER by Randa Quintanilla. Lymphocyte % (test See Note 24.0-44.0 Clotted s ampleNotified code = 736-9) Nurse Bettcy a t 04/02/2022 8:47:15 AM CSTN jerod will recollectFSCorr ected from 37.5 % on 04/02 8:51:32 COLORIST DYER by Randa Quintanilla. Monocyte % (test See Note 2.0-7.0 Clotted oralia pleNotified code = 5905-5) Nurse Bettcy at 04/02/2022 8:47:15 AM CSTN jerod will recollectFSCorr ected from 5.0 % on 8:51:32 COLORIST DYER by Randa Quintanilla. Eosinophil % (test See Note 1.0-4.0 Clotted s ampleNotified code = 713-8) Nurse Bettcy a t 04/02/2022 8:47:15 AM CSTN jerod will recollectFSCorr ected from 0.8 % [LOW] on 04/02/22 8:51:32 COLORIST DYER by Randa Lorenz. Basophil % (test See Note 0.0-1.0 Clotted oralia pleNotified code = 706-2) Nurse Bettcy a t 04/02/2022 8:47:15 AM CSTCordelia newsome will recollectFSCorr ected from 0.2 % on 8:51:32 COLORIST DYER by Randa Quintanilla. IGRE % (test code See Note 0.0-0.4 Clotted sa mpleNotified = 44700-8) Nurse Bettcy at 04/02/2022 8:47:15 AM CSTN jerod will recollectFSIGRE % count includes Metamy elocytes, Myelocytes, and Promyelocytes.I GRE % count includes Metamy elocytes, Myelocytes, and Promyelocytes.C orrected from 2.5 % [HI] on 04/02/22 8:51:32 COLORIST DYER by Randa Lorenz. Neutrophil Abs See Note 1.70-7.30 Clotted sampl eNotified (test code = Nurse Bettcy at 04/02/2022 751-8) 8:47:15 AM CSTCordelia newsome will recollectFSCorr ected from 6.86 K/uL on 8:51:32 COLORIST DYER by Randa Lorenz. Lymphocyte Abs See Note 1.00-4.80 Clotted sampl eNotified (test code = Nurse Bettcy at 04/02/2022 731-0) 8:47:15 AM CSTCordelia newsome will recollectFSCorr ected from 4.77 K/uL on 8:51:32 COLORIST DYER by Randa Lorenz. Monocyte Abs (test See Note 0.08-0.70 Clotted s ampleNotified code = 742-7) Nurse Bettcy a t 04/02/2022 8:47:15 AM CSTCordelia newsome will recollectFSCorr ected from 0.63 K/uL on 8:51:32 COLORIST DYER by Randa Lorenz. Eosinophil Abs See Note 0.04-0.40 Clotted sampl eNotified (test code = Nurse Bettcy at 04/02/2022 711-2) 8:47:15 AM CSTCordelia newsome will recollectFSCorr ected from 0.10 K/uL on 8:51:32 COLORIST DYER by Randa Lorenz. Basophil Abs (test See Note 0.00-0.10 Clotted s ampleNotified code = 704-7) Nurse Adeolatcy a t 04/02/2022 8:47:15 AM CSTCordelia newsome will recollectFSCorr ected from 0.03 K/uL on 8:51:32 COLORIST DYER by Randa Lorenz. IG Abs (test code See Note 0.00-0.04 Clotted sa mpleNotified = 55379-8) Nurse Adeolatcsavanah at 04/02/2022 8:47:15 AM CSTCordelia newsome will recollectFSCorr ected from 0.32 K/uL [HI] on 04/02/22 8:51:32 COLORIST DYER by Randa Lorenz. [facility] [id number] 14:51:34 Test Item Value Reference Range Interpretation Comments Neutrophil % (test See Note 42.0-66.0 Clotted s ampleNotified code = 770-8) Nurse Bettcy a t 04/02/2022 8:47:15 AM CSTCordelia newsome will recollectFSCorr ected from 54.0 % on 04/02 8:51:32 COLORIST DYER by Randa Quintanilla. Lymphocyte % (test See Note 24.0-44.0 Clotted s ampleNotified code = 736-9) Nurse Adeolatcsavanah a t 04/02/2022 8:47:15 AM CSTN jerod will recollectFSCorr ected from 37.5 % on 04/02 8:51:32 COLORIST DYER by Randa Quintanilla. Monocyte % (test See Note 2.0-7.0 Clotted oralia pleNotified code = 5905-5) Nurse Bettcy at 04/02/2022 8:47:15 AM CSTN jerod will recollectFSCorr ected from 5.0 % on 8:51:32 COLORIST DYER by Randa Quintanilla. Eosinophil % (test See Note 1.0-4.0 Clotted s ampleNotified code = 713-8) Nurse Adeolatcsavanah a t 04/02/2022 8:47:15 AM CSTN jerod will recollectFSCorr ected from 0.8 % [LOW] on 04/02/22 8:51:32 COLORIST DYER by Randa Lorenz. Basophil % (test See Note 0.0-1.0 Clotted oralia pleNotified code = 706-2) Nurse Adeolasavanah a t 04/02/2022 8:47:15 AM CSTN jerod will recollectFSCorr ected from 0.2 % on 8:51:32 COLORIST DYER by Randa Quintanilla. IGRE % (test code See Note 0.0-0.4 Clotted sa mpleNotified = 08243-5) Nurse Bettcy at 04/02/2022 8:47:15 AM CSTN jerod will recollectFSIGRE % count includes Metamy elocytes, Myelocytes, and Promyelocytes.I GRE % count includes Metamy elocytes, Myelocytes, and Promyelocytes.C orrected from 2.5 % [HI] on 04/02/22 8:51:32 COLORIST DYER by Randa Lorenz. Neutrophil Abs See Note 1.70-7.30 Clotted sampl eNotified (test code = Nurse Bettcy at 04/02/2022 751-8) 8:47:15 AM CSTCordelia newsome will recollectFSCorr ected from 6.86 K/uL on 8:51:32 COLORIST DYER by Randa Lorenz. Lymphocyte Abs See Note 1.00-4.80 Clotted sampl eNotified (test code = Nurse Bettcy at 04/02/2022 731-0) 8:47:15 AM CSTCordelia newsome will recollectFSCorr ected from 4.77 K/uL on 8:51:32 COLORIST DYER by Randa Lorenz. Monocyte Abs (test See Note 0.08-0.70 Clotted s ampleNotified code = 742-7) Nurse Bettcy a t 04/02/2022 8:47:15 AM CSTCordelia newsome will recollectFSCorr ected from 0.63 K/uL on 8:51:32 COLORIST DYER by Randa Lorenz. Eosinophil Abs See Note 0.04-0.40 Clotted sampl eNotified (test code = Nurse Bettcy at 04/02/2022 711-2) 8:47:15 AM CSTCordelia newsome will recollectFSCorr ected from 0.10 K/uL on 8:51:32 COLORIST DYER by Randa Lorenz. Basophil Abs (test See Note 0.00-0.10 Clotted s ampleNotified code = 704-7) Nurse Bettcy a t 04/02/2022 8:47:15 AM CSTCordelia newsome will recollectFSCorr ected from 0.03 K/uL on 8:51:32 COLORIST DYER by Randa Lorenz. IG Abs (test code See Note 0.00-0.04 Clotted sa mpleNotified = 10298-7) Nurse Bettcy at 04/02/2022 8:47:15 AM CSTCordelia newsome will recollectFSCorr ected from 0.32 K/uL [HI] on 04/02/22 8:51:32 COLORIST DYER by Randa Lorenz. [facility] [id number] 14:51:34 Test Item Value Reference Range Interpretation Comments Neutrophil % (test See Note 42.0-66.0 Clotted s ampleNotified code = 770-8) Nurse Bettcy a t 04/02/2022 8:47:15 AM CSTN jessicae will recollectFSCorr ected from 54.0 % on 04/02 8:51:32 COLORIST DYER by Randa Quintanilla. Lymphocyte % (test See Note 24.0-44.0 Clotted s ampleNotified code = 736-9) Nurse Bettcy a t 04/02/2022 8:47:15 AM CSTN jessicae will recollectFSCorr ected from 37.5 % on 04/02 8:51:32 COLORIST DYER by Randa Quintanilla. Monocyte % (test See Note 2.0-7.0 Clotted oralia pleNotified code = 5905-5) Nurse Bettcy at 04/02/2022 8:47:15 AM CSTN jessicae will recollectFSCorr ected from 5.0 % on 8:51:32 COLORIST DYER by Randa Quintanilla. Eosinophil % (test See Note 1.0-4.0 Clotted s ampleNotified code = 713-8) Nurse Bettcy a t 04/02/2022 8:47:15 AM CSTN jessicae will recollectFSCorr ected from 0.8 % [LOW] on 04/02/22 8:51:32 COLORIST DYER by Randa Lorenz. Basophil % (test See Note 0.0-1.0 Clotted oralia pleNotified code = 706-2) Nurse Bettcy a t 04/02/2022 8:47:15 AM CSTN jessicae will recollectFSCorr ected from 0.2 % on 8:51:32 COLORIST DYER by Randa Quintanilla. IGRE % (test code See Note 0.0-0.4 Clotted sa mpleNotified = 46873-3) Nurse Bettcy at 04/02/2022 8:47:15 AM CSTCordelia newsome will recollectFSIGRE % count includes Metamy elocytes, Myelocytes, and Promyelocytes.I GRE % count includes Metamy elocytes, Myelocytes, and Promyelocytes.C orrected from 2.5 % [HI] on 04/02/22 8:51:32 COLORIST DYER by Randa Lorenz. Neutrophil Abs See Note 1.70-7.30 Clotted sampl eNotified (test code = Nurse Adeolatcsavanah at 04/02/2022 751-8) 8:47:15 AM CSTCordelia newsome will recollectFSCorr ected from 6.86 K/uL on 8:51:32 COLORIST DYER by Randa Lorenz. Lymphocyte Abs See Note 1.00-4.80 Clotted sampl eNotified (test code = Nurse Adeolatcsavanah at 04/02/2022 731-0) 8:47:15 AM CSTCordelia newsome will recollectFSCorr ected from 4.77 K/uL on 8:51:32 COLORIST DYER by Randa Lorenz. Monocyte Abs (test See Note 0.08-0.70 Clotted s ampleNotified code = 742-7) Nurse Troy jorge t 04/02/2022 8:47:15 AM CSTCordelia newsome will recollectFSCorr ected from 0.63 K/uL on 8:51:32 COLORIST DYER by Randa Lorenz. Eosinophil Abs See Note 0.04-0.40 Clotted sampl eNotified (test code = Nurse Adeolatcsavanah at 04/02/2022 711-2) 8:47:15 AM CSTCordelia neswome will recollectFSCorr ected from 0.10 K/uL on 8:51:32 COLORIST DYER by Randa Lorenz. Basophil Abs (test See Note 0.00-0.10 Clotted s ampleNotified code = 704-7) Nurse Troy jorge t 04/02/2022 8:47:15 AM CSTCordelia newsome will recollectFSCorr ected from 0.03 K/uL on 8:51:32 COLORIST DYER by Randa Lorenz. IG Abs (test code See Note 0.00-0.04 Clotted sa mpleNotified = 64790-3) Nurse Bettcy at 04/02/2022 8:47:15 AM CSTCordelia newsome will recollectFSCorr ected from 0.32 K/uL [HI] on 04/02/22 8:51:32 COLORIST DYER by Randa Lorenz. [facility] 14:51[facility] Test Item Value Reference Range Interpretation Comments Neutrophil % (test See Note 42.0-66.0 Clotted s ampleNotified code = 770-8) Nurse Bettcy a t 04/02/2022 8:47:15 AM CSTN jerod will recollectFSCorr ected from 54.0 % on 04/02 8:51:32 COLORIST DYER by Randa Quintanilla. Lymphocyte % (test See Note 24.0-44.0 Clotted s ampleNotified code = 736-9) Nurse Bettcy a t 04/02/2022 8:47:15 AM CSTN jerod will recollectFSCorr ected from 37.5 % on 04/02 8:51:32 COLORIST DYER by Randa Quintanilla. Monocyte % (test See Note 2.0-7.0 Clotted oralia pleNotified code = 5905-5) Nurse Bettcy at 04/02/2022 8:47:15 AM CSTN jerod will recollectFSCorr ected from 5.0 % on 8:51:32 COLORIST DYER by Randa Quintanilla. Eosinophil % (test See Note 1.0-4.0 Clotted s ampleNotified code = 713-8) Nurse Bettcy a t 04/02/2022 8:47:15 AM CSTN jerod will recollectFSCorr ected from 0.8 % [LOW] on 04/02/22 8:51:32 COLORIST DYER by Randa Lorenz. Basophil % (test See Note 0.0-1.0 Clotted oralia pleNotified code = 706-2) Nurse Bettcy a t 04/02/2022 8:47:15 AM CSTCordelia newsome will recollectFSCorr ected from 0.2 % on 8:51:32 COLORIST DYER by Randa Quintanilla. IGRE % (test code See Note 0.0-0.4 Clotted sa mpleNotified = 64278-0) Nurse Bettcy at 04/02/2022 8:47:15 AM CSTN jerod will recollectFSIGRE % count includes Metamy elocytes, Myelocytes, and Promyelocytes.I GRE % count includes Metamy elocytes, Myelocytes, and Promyelocytes.C orrected from 2.5 % [HI] on 04/02/22 8:51:32 COLORIST DYER by Randa Lorenz. Neutrophil Abs See Note 1.70-7.30 Clotted sampl eNotified (test code = Nurse Bettcy at 04/02/2022 751-8) 8:47:15 AM CSTCordelia newsome will recollectFSCorr ected from 6.86 K/uL on 8:51:32 COLORIST DYER by Randa Lorenz. Lymphocyte Abs See Note 1.00-4.80 Clotted sampl eNotified (test code = Nurse Bettcy at 04/02/2022 731-0) 8:47:15 AM CSTCordelia newsome will recollectFSCorr ected from 4.77 K/uL on 8:51:32 COLORIST DYER by Randa Lorenz. Monocyte Abs (test See Note 0.08-0.70 Clotted s ampleNotified code = 742-7) Nurse Bettcy a t 04/02/2022 8:47:15 AM CSTN jerod will recollectFSCorr ected from 0.63 K/uL on 8:51:32 COLORIST DYER by Randa Lorenz. Eosinophil Abs See Note 0.04-0.40 Clotted sampl eNotified (test code = Nurse Bettcy at 04/02/2022 711-2) 8:47:15 AM CSTN jerod will recollectFSCorr ected from 0.10 K/uL on 8:51:32 COLORIST DYER by Randa Lorenz. Basophil Abs (test See Note 0.00-0.10 Clotted s ampleNotified code = 704-7) Nurse Bettcy a t 04/02/2022 8:47:15 AM CSTCordelia newsome will recollectFSCorr ected from 0.03 K/uL on 8:51:32 COLORIST DYER by Randa Lorenz. IG Abs (test code See Note 0.00-0.04 Clotted sa mpleNotified = 98629-9) Nurse Bettcy at 04/02/2022 8:47:15 AM CSTCordelia newsome will recollectFSCorr ected from 0.32 K/uL [HI] on 04/02/22 8:51:32 COLORIST DYER by Randa Lorenz. [facility] [place].[id number] 14:51:33 Test Item Value Reference Range Interpretation Comments WBC (test code = See Note 4.0-11.0 A Clotted oralia pleNotified 6690-2) Nurse Bettcy at 04/02/2022 8:47:15 AM CSTCordelia newsome will recollectFSCorr ected from 12.7 K/uL [HI] on 04/02/22 8:51:32 COLORIST DYER by Randa Lorenz. RBC (test code = See Note See_Comment A Clotted oralia pleNotified 789-8) Nurse Bettcy at 04/02/2022 8:47:15 AM CSTCordelia newsome will recollectFSCorr ected from 5.04 M/uL on 8:51:32 COLORIST DYER by Randa Lorenz. [Aut omated message] The [...] from 13.2 gm/dL on 0 04/02/22 8:51:32 COLORIST DYER by Randa Lorenz. [Aut omated message] The [...] ected from 41.2 % on 04/02 8:51:32 COLORIST DYER by Randa Quintanilla. MCV (test code = See Note 82-98 A Clotted oralia pleNotified 787-2) Nurse Bettcy at 04/02/2022 8:47:15 AM CSTCordelia newsome will recollectFSCorr ected from 82 fL on 8:51:32 COLORIST DYER by Randa Quintanilla. MCH (test code = See Note 27.0-31.0 A Clotted oralia pleNotified 785-6) Nurse Bettcy at 04/02/2022 8:47:15 AM CSTCordelia newsome will recollectFSCorr ected from 26.2 pg [LOW] o n 04/02/22 8:51:32 COLORIST DYER by Randa Lorenz. MCHC (test code = See Note See_Comment A Clotted sa mpleNotified 786-4) Nurse Bettcy at 04/02/2022 8:47:15 AM CSTCordelia newsome will recollectFSCorr ected from 32.0 gm/dL on 0 04/02/22 8:51:32 COLORIST DYER by Randa Lorenz. [Aut omated message] The sy stem which generated this result transmitted ref erence range: 31.0 - 3 6.0 gm/dL. The reference r ashley was not used to int erpret this result as nehemiah l/abnormal. RDW-SD (test code = See Note 35.1-46.3 A Clotted sampleNotified 03018-7) Nurse Bettcy at 04/02/2022 8:47:15 AM CSTN jerod will recollectFSCorr ected from 42.7 fL on 09/15 8:51:32 COLORIST DYER by Randa Lorenz. RDW-CV (test code = See Note 12.0-15.5 A Clotted sampleNotified 788-0) Nurse Bettcy at 04/02/2022 8:47:15 AM CSTCordelia newsome will recollectFSCorr ected from 15.1 % on 04/02 8:51:32 COLORIST DYER by Randa Quintanilla. Platelet count (test See Note 140-440 A Clotted sampleNotified code = 777-3) Nurse Bettcy a t 04/02/2022 8:47:15 AM CSTCordelia newsome will recollectFS MPV (test code = See Note 4.0-10.4 Clotted oralia pleNotified 06394-1) Nurse Bettcy at 04/02/2022 8:47:15 AM CSTCordelia newsome will recollectFS INRBC (test code = See Note See_Comment A Clotted s ampleNotified 48098-5) Nurse Bettcy at 04/02/2022 8:47:15 AM CSTCordelia [...] from 0.0 % on 0 04/02/22 8:51:32 COLORIST DYER by Randa Lorenz. [Aut omated message] The sy stem which generated this result transmitted ref erence range: %. The r eference range was not u sed to interpret this result as normal/abnormal . Lab Interpretation Abnormal (test code = 70211-8) [facility] [place].[id number] 14:51:33 Test Item Value Reference Range Interpretation Comments WBC (test code = See Note 4.0-11.0 A Clotted oralia pleNotified 6690-2) Nurse Bettcy at 04/02/2022 8:47:15 AM CSTCordelia newsome will recollectFSCorr ected from 12.7 K/uL [HI] on 04/02/22 8:51:32 COLORIST DYER by Randa Lorenz. RBC (test code = See Note See_Comment A Clotted oralia pleNotified 789-8) Nurse Bettcy at 04/02/2022 8:47:15 AM CSTCordelia newsome will recollectFSCorr ected from 5.04 M/uL on 8:51:32 COLORIST DYER by Randa Lorenz. [Aut omated message] The [...] from 13.2 gm/dL on 0 04/02/22 8:51:32 COLORIST DYER by Randa Lorenz. [Aut omated message] The [...] ected from 41.2 % on 04/02 8:51:32 COLORIST DYER by Randa Quintanilla. MCV (test code = See Note 82-98 A Clotted oralia pleNotified 787-2) Nurse Bettcy at 04/02/2022 8:47:15 AM CSTCordelia newsome will recollectFSCorr ected from 82 fL on 8:51:32 COLORIST DYER by Randa Quintanilla. MCH (test code = See Note 27.0-31.0 A Clotted oralia pleNotified 785-6) Nurse Bettcy at 04/02/2022 8:47:15 AM CSTCordelia newsome will recollectFSCorr ected from 26.2 pg [LOW] o n 04/02/22 8:51:32 COLORIST DYER by Randa Lorenz. MCHC (test code = See Note See_Comment A Clotted sa mpleNotified 786-4) Nurse Bettcy at 04/02/2022 8:47:15 AM CSTCordelia newsome will recollectFSCorr ected from 32.0 gm/dL on 0 04/02/22 8:51:32 COLORIST DYER by Randa Lorenz. [Aut omated message] The sy stem which generated this result transmitted ref erence range: 31.0 - 3 6.0 gm/dL. The reference r ashley was not used to int erpret this result as nehemiah l/abnormal. RDW-SD (test code = See Note 35.1-46.3 A Clotted sampleNotified 46922-4) Nurse Bettcy at 04/02/2022 8:47:15 AM CHRIS newsome will recollectFSCorr ected from 42.7 fL on 0209/15 8:51:32 COLORIST DYER by Randa Lorenz. RDW-CV (test code = See Note 12.0-15.5 A Clotted sampleNotified 788-0) Nurse Bettcy at 04/02/2022 8:47:15 AM CSTCordelia newsome will recollectFSCorr ected from 15.1 % on 04/02 8:51:32 COLORIST DYER by Randa Quintanilla. Platelet count (test See Note 140-440 A Clotted sampleNotified code = 777-3) Nurse Bettcy a t 04/02/2022 8:47:15 AM CSTCordelia newsome will recollectFS MPV (test code = See Note 4.0-10.4 Clotted oralia pleNotified 36425-8) Nurse Bettcy at 04/02/2022 8:47:15 AM CSTCordelia newsome will recollectFS INRBC (test code = See Note See_Comment A Clotted s ampleNotified 86897-7) Nurse Bettcy at 04/02/2022 8:47:15 AM CSTCordelia [...] from 0.0 % on 0 04/02/22 8:51:32 COLORIST DYER by Randa Lorenz. [Aut omated message] The sy stem which generated this result transmitted ref erence range: %. The r eference range was not u sed to interpret this result as normal/abnormal . Lab Interpretation Abnormal (test code = 88426-1) [facility] [place].[id number] 14:51:33 Test Item Value Reference Range Interpretation Comments WBC (test code = See Note 4.0-11.0 A Clotted oralia pleNotified 6690-2) Nurse Bettcy at 04/02/2022 8:47:15 AM CSTCordelia newsome will recollectFSCorr ected from 12.7 K/uL [HI] on 04/02/22 8:51:32 COLORIST DYER by Randa Lorenz. RBC (test code = See Note See_Comment A Clotted oralia pleNotified 789-8) Nurse Bettcy at 04/02/2022 8:47:15 AM CSTCordelia newsome will recollectFSCorr ected from 5.04 M/uL on 8:51:32 COLORIST DYER by Randa Lorenz. [Aut omated message] The [...] from 13.2 gm/dL on 0 04/02/22 8:51:32 COLORIST DYER by Randa Lorenz. [Aut omated message] The sy stem which generated this result transmitted ref erence range: 12.0 - 1 6.0 gm/dL. The reference r ashley was not used to int erpret this result as nehemiha l/abnormal. Hct (test code = See Note 37.0-47.0 A Clotted oralia pleNotified 4544-3) Nurse Bettcy at 04/02/2022 8:47:15 AM CSTCordelia newsome will recollectFSCorr ected from 41.2 % on 04/02 8:51:32 COLORIST DYER by Randa Quintanilla. MCV (test code = See Note 82-98 A Clotted oralia pleNotified 787-2) Nurse Bettcy at 04/02/2022 8:47:15 AM CSTCordelia newsome will recollectFSCorr ected from 82 fL on 8:51:32 COLORIST DYER by Rnada Quintanilla. MCH (test code = See Note 27.0-31.0 A Clotted oralia pleNotified 785-6) Nurse Bettcy at 04/02/2022 8:47:15 AM CSTCordelia newsome will recollectFSCorr ected from 26.2 pg [LOW] o n 04/02/22 8:51:32 COLORIST DYER by Randa Lorenz. MCHC (test code = See Note See_Comment A Clotted sa mpleNotified 786-4) Nurse Bettcy at 04/02/2022 8:47:15 AM CSTCordelia newsome will recollectFSCorr ected from 32.0 gm/dL on 0 04/02/22 8:51:32 COLORIST DYER by Randa Lorenz. [Aut omated message] The sy stem which generated this result transmitted ref erence range: 31.0 - 3 6.0 gm/dL. The reference r ashley was not used to int erpret this result as nehemiah l/abnormal. RDW-SD (test code = See Note 35.1-46.3 A Clotted sampleNotified 37814-5) Nurse Bettcy at 04/02/2022 8:47:15 AM CSTCordelia newsome will recollectFSCorr ected from 42.7 fL on 09/15 8:51:32 COLORIST DYER by Randa Lorenz. RDW-CV (test code = See Note 12.0-15.5 A Clotted sampleNotified 788-0) Nurse Bettcy at 04/02/2022 8:47:15 AM CSTCordelia newsome will recollectFSCorr ected from 15.1 % on 04/02 8:51:32 COLORIST DYER by Randa Quintanilla. Platelet count (test See Note 140-440 A Clotted sampleNotified code = 777-3) Nurse Bettcy a t 04/02/2022 8:47:15 AM CSTCordelia newsome will recollectFS MPV (test code = See Note 4.0-10.4 Clotted oralia pleNotified 21252-0) Nurse Bettcy at 04/02/2022 8:47:15 AM CSTCordelia newsome will recollectFS INRBC (test code = See Note See_Comment A Clotted s ampleNotified 42800-4) Nurse Bettcy at 04/02/2022 8:47:15 AM CSTCordelia [...] from 0.0 % on 0 04/02/22 8:51:32 COLORIST DYER by Randa Lorenz. [Aut omated message] The sy stem which generated this result transmitted ref erence range: %. The r eference range was not u sed to interpret this result as normal/abnormal . Lab Interpretation Abnormal (test code = 27010-4) [facility].[id number] 14:51:33 Test Item Value Reference Range Interpretation Comments WBC (test code = See Note 4.0-11.0 A Clotted oralia pleNotified 6690-2) Nurse Bettcy at 04/02/2022 8:47:15 AM CSTCordelia newsome will recollectFSCorr ected from 12.7 K/uL [HI] on 04/02/22 8:51:32 COLORIST DYER by Randa Lorenz. RBC (test code = See Note See_Comment A Clotted oralia pleNotified 789-8) Nurse Bettcy at 04/02/2022 8:47:15 AM CSTCordelia newsome will recollectFSCorr ected from 5.04 M/uL on 8:51:32 COLORIST DYER by Randa Lorenz. [Aut omated message] The [...] from 13.2 gm/dL on 0 04/02/22 8:51:32 COLORIST DYER by Randa Lorenz. [Aut omated message] The [...] ected from 41.2 % on 04/02 8:51:32 COLORIST DYER by Randa Quintanilla. MCV (test code = See Note 82-98 A Clotted oralia pleNotified 787-2) Nurse Bettcy at 04/02/2022 8:47:15 AM CSTN jerod will recollectFSCorr ected from 82 fL on 8:51:32 COLORIST DYER by Randa Quintanilla. MCH (test code = See Note 27.0-31.0 A Clotted oralia pleNotified 785-6) Nurse Bettcy at 04/02/2022 8:47:15 AM CSTN jerod will recollectFSCorr ected from 26.2 pg [LOW] o n 04/02/22 8:51:32 COLORIST DYER by Randa Lorenz. MCHC (test code = See Note See_Comment A Clotted sa mpleNotified 786-4) Nurse Bettcy at 04/02/2022 8:47:15 AM CSTCordelia newsome will recollectFSCorr ected from 32.0 gm/dL on 0 04/02/22 8:51:32 COLORIST DYER by Randa Lorenz. [Aut omated message] The sy stem which generated this result transmitted ref erence range: 31.0 - 3 6.0 gm/dL. The reference r ashley was not used to int erpret this result as nehemiah l/abnormal. RDW-SD (test code = See Note 35.1-46.3 A Clotted sampleNotified 86941-6) Nurse Bettcy at 04/02/2022 8:47:15 AM CSTN jerod will recollectFSCorr ected from 42.7 fL on 09/15 8:51:32 COLORIST DYER by Randa Lorenz. RDW-CV (test code = See Note 12.0-15.5 A Clotted sampleNotified 788-0) Nurse Bettcy at 04/02/2022 8:47:15 AM CSTN jerod will recollectFSCorr ected from 15.1 % on 04/02 8:51:32 COLORIST DYER by Randa Quintanilla. Platelet count (test See Note 140-440 A Clotted sampleNotified code = 777-3) Nurse Adeolatcsavanah a t 04/02/2022 8:47:15 AM CSTCordelia newsome will recollectFS MPV (test code = See Note 4.0-10.4 Clotted oralia pleNotified 32492-1) Nurse Bettcy at 04/02/2022 8:47:15 AM CSTCordelia newsome will recollectFS INRBC (test code = See Note See_Comment A Clotted s ampleNotified 67734-9) Nurse Bettcy at 04/02/2022 8:47:15 AM CSTCordelia [...] from 0.0 % on 0 04/02/22 8:51:32 COLORIST DYER by Randa Lorenz. [Aut omated message] The sy stem which generated this result transmitted ref erence range: %. The r eference range was not u sed to interpret this result as normal/abnormal . Lab Interpretation Abnormal (test code = 70210-6) [facility] [place].[id number] 14:51:33 Test Item Value Reference Range Interpretation Comments WBC (test code = See Note 4.0-11.0 A Clotted oralia pleNotified 6690-2) Nurse Bettcy at 04/02/2022 8:47:15 AM CSTCordelia newsome will recollectFSCorr ected from 12.7 K/uL [HI] on 04/02/22 8:51:32 COLORIST DYER by Randa Lorenz. RBC (test code = See Note See_Comment A Clotted oralia pleNotified 789-8) Nurse Bettcy at 04/02/2022 8:47:15 AM CSTCordelia newsome will recollectFSCorr ected from 5.04 M/uL on 8:51:32 COLORIST DYER by Randa Lorenz. [Aut omated message] The [...] from 13.2 gm/dL on 0 04/02/22 8:51:32 COLORIST DYER by Randa Lorenz. [Aut omated message] The [...] ected from 41.2 % on 04/02 8:51:32 COLORIST DYER by Randa Quintanilla. MCV (test code = See Note 82-98 A Clotted oralia pleNotified 787-2) Nurse Bettcy at 04/02/2022 8:47:15 AM CSTCordelia newsome will recollectFSCorr ected from 82 fL on 8:51:32 COLORIST DYER by Randa Quintanilla. MCH (test code = See Note 27.0-31.0 A Clotted oralia pleNotified 785-6) Nurse Bettcy at 04/02/2022 8:47:15 AM CSTCordelia newsome will recollectFSCorr ected from 26.2 pg [LOW] o n 04/02/22 8:51:32 COL[employer]IST DYER by Randa Lorenz. MCHC (test code = See Note See_Comment A Clotted sa mpleNotified 786-4) Nurse Bettcy at 04/02/2022 8:47:15 AM CSTN jerod will recollectFSCorr ected from 32.0 gm/dL on 0 04/02/22 8:51:32 COLORIST DYER by Randa Lorenz. [Aut omated message] The sy stem which generated this result transmitted ref erence range: 31.0 - 3 6.0 gm/dL. The reference r ashley was not used to int erpret this result as nehemiah l/abnormal. RDW-SD (test code = See Note 35.1-46.3 A Clotted sampleNotified 75661-3) Nurse Bettcy at 04/02/2022 8:47:15 AM CSTN jerod will recollectFSCorr ected from 42.7 fL on 09/15 8:51:32 COLORIST DYER by Randa Lorenz. RDW-CV (test code = See Note 12.0-15.5 A Clotted sampleNotified 788-0) Nurse Bettcy at 04/02/2022 8:47:15 AM CSTN jerod will recollectFSCorr ected from 15.1 % on 04/02 8:51:32 COLORIST DYER by Radna Quintanilla. Platelet count (test See Note 140-440 A Clotted sampleNotified code = 777-3) Nurse Bettcy a t 04/02/2022 8:47:15 AM CSTN jerod will recollectFS MPV (test code = See Note 4.0-10.4 Clotted oralia pleNotified 37881-0) Nurse Bettcy at 04/02/2022 8:47:15 AM CSTN jessicae will recollectFS INRBC (test code = See Note See_Comment A Clotted s ampleNotified 24268-1) Nurse Bettcy at 04/02/2022 8:47:15 AM CSTN jerod will recollectFSThe INRBC (instrument NRB C) value [...] from 0.0 % on 0 04/02/22 8:51:32 COLORIST DYER by Randa Lorenz. [Aut omated message] The sy stem which generated this result transmitted ref erence range: %. The r eference range was not u sed to interpret this result as normal/abnormal . Lab Interpretation Abnormal (test code = 63885-9) [facility] [place].[id number] 14:51:33 Test Item Value Reference Range Interpretation Comments WBC (test code = See Note 4.0-11.0 A Clotted oralia pleNotified 6690-2) Nurse Bettcy at 04/02/2022 8:47:15 AM CSTN jerod will recollectFSCorr ected from 12.7 K/uL [HI] on 04/02/22 8:51:32 COLORIST DYER by Randa Lorenz. RBC (test code = See Note See_Comment A Clotted oralia pleNotified 789-8) Nurse Bettcy at 04/02/2022 8:47:15 AM CSTCordelia newsome will recollectFSCorr ected from 5.04 M/uL on 8:51:32 COLORIST DYER by Randa Lorenz. [Aut omated message] The [...] from 13.2 gm/dL on 0 04/02/22 8:51:32 COLORIST DYER by Randa Lorenz. [Aut omated message] The [...] ected from 41.2 % on 04/02 8:51:32 COLORIST DYER by Randa Quintanilla. MCV (test code = See Note 82-98 A Clotted oralia pleNotified 787-2) Nurse Bettcy at 04/02/2022 8:47:15 AM CSTCordelia newsome will recollectFSCorr ected from 82 fL on 8:51:32 COLORIST DYER by Randa Quintanilla. MCH (test code = See Note 27.0-31.0 A Clotted oralia pleNotified 785-6) Nurse Bettcy at 04/02/2022 8:47:15 AM CSTCordelia newsome will recollectFSCorr ected from 26.2 pg [LOW] o n 04/02/22 8:51:32 COLORIST DYER by Randa Lorenz. MCHC (test code = See Note See_Comment A Clotted sa mpleNotified 786-4) Nurse Bettcy at 04/02/2022 8:47:15 AM CSTCordelia newsome will recollectFSCorr ected from 32.0 gm/dL on 0 04/02/22 8:51:32 COLORIST DYER by Randa Lorenz. [Aut omated message] The sy stem which generated this result transmitted ref erence range: 31.0 - 3 6.0 gm/dL. The reference r ashley was not used to int erpret this result as nehemiah l/abnormal. RDW-SD (test code = See Note 35.1-46.3 A Clotted sampleNotified 07552-3) Nurse Bettcy at 04/02/2022 8:47:15 AM CSTCordelia newsome will recollectFSCorr ected from 42.7 fL on 09/15 8:51:32 COLORIST DYER by Randa Lorenz. RDW-CV (test code = See Note 12.0-15.5 A Clotted sampleNotified 788-0) Nurse Bettcy at 04/02/2022 8:47:15 AM CSTCordelia newsome will recollectFSCorr ected from 15.1 % on 04/02 8:51:32 COLORIST DYER by Randa Quintanilla. Platelet count (test See Note 140-440 A Clotted sampleNotified code = 777-3) Nurse Bettcy a t 04/02/2022 8:47:15 AM CSTCordelia newsome will recollectFS MPV (test code = See Note 4.0-10.4 Clotted oralia pleNotified 52870-4) Nurse Bettcy at 04/02/2022 8:47:15 AM CSTCordelia newsome will recollectFS INRBC (test code = See Note See_Comment A Clotted s ampleNotified 73730-1) Nurse Bettcy at 04/02/2022 8:47:15 AM CSTCordelia [...] from 0.0 % on 0 04/02/22 8:51:32 COLORIST DYER by Randa Lorenz. [Aut omated message] The sy stem which generated this result transmitted ref erence range: %. The r eference range was not u sed to interpret this result as normal/abnormal . Lab Interpretation Abnormal (test code = 60408-7) [facility].[id number] 14:51:33 Test Item Value Reference Range Interpretation Comments WBC (test code = See Note 4.0-11.0 A Clotted oralia pleNotified 6690-2) Nurse Bettcy at 04/02/2022 8:47:15 AM CSTCordelia newsome will recollectFSCorr ected from 12.7 K/uL [HI] on 04/02/22 8:51:32 COLORIST DYER by Randa Lorenz. RBC (test code = See Note See_Comment A Clotted oralia pleNotified 789-8) Nurse Bettcy at 04/02/2022 8:47:15 AM CSTCordelia newsome will recollectFSCorr ected from 5.04 M/uL on 8:51:32 COLORIST DYER by Randa Lorenz. [Aut omated message] The [...] from 13.2 gm/dL on 0 04/02/22 8:51:32 COLORIST DYER by Randa Lorenz. [Aut omated message] The [...] ected from 41.2 % on 04/02 8:51:32 COLORIST DYER by Randa Quintanilla. MCV (test code = See Note 82-98 A Clotted oralia pleNotified 787-2) Nurse Bettcy at 04/02/2022 8:47:15 AM CSTCordelia newsome will recollectFSCorr ected from 82 fL on 8:51:32 COLORIST DYER by Randa Quintanilla. MCH (test code = See Note 27.0-31.0 A Clotted oralia pleNotified 785-6) Nurse Bettcy at 04/02/2022 8:47:15 AM CSTN jerod will recollectFSCorr ected from 26.2 pg [LOW] o n 04/02/22 8:51:32 COLORIST DYER by Randa Lorenz. MCHC (test code = See Note See_Comment A Clotted sa mpleNotified 786-4) Nurse Bettcy at 04/02/2022 8:47:15 AM CSTCordelia newsome will recollectFSCorr ected from 32.0 gm/dL on 0 04/02/22 8:51:32 COLORIST DYER by Randa Lorenz. [Aut omated message] The sy stem which generated this result transmitted ref erence range: 31.0 - 3 6.0 gm/dL. The reference r ashley was not used to int erpret this result as nehemiah l/abnormal. RDW-SD (test code = See Note 35.1-46.3 A Clotted sampleNotified 33570-5) Nurse Bettcy at 04/02/2022 8:47:15 AM CSTCordelia newsome will recollectFSCorr ected from 42.7 fL on 09/15 8:51:32 COLORIST DYER by Randa Lorenz. RDW-CV (test code = See Note 12.0-15.5 A Clotted sampleNotified 788-0) Nurse Bettcy at 04/02/2022 8:47:15 AM CSTCordelia newsome will recollectFSCorr ected from 15.1 % on 04/02 8:51:32 COLORIST DYER by Randa Quintanilla. Platelet count (test See Note 140-440 A Clotted sampleNotified code = 777-3) Nurse Bettcy a t 04/02/2022 8:47:15 AM CSTCordelia newsome will recollectFS MPV (test code = See Note 4.0-10.4 Clotted oralia pleNotified 99418-3) Nurse Bettcy at 04/02/2022 8:47:15 AM CSTN jerod will recollectFS INRBC (test code = See Note See_Comment A Clotted s ampleNotified 62989-5) Nurse Bettcy at 04/02/2022 8:47:15 AM CSTN jerod will recollectFSThe INRBC (instrument NRB C) value [...] from 0.0 % on 0 04/02/22 8:51:32 COLORIST DYER by Randa Lorenz. [Aut omated message] The [employer] stem which generated this result transmitted ref erence range: %. The r eference range was not u sed to interpret this result as normal/abnormal . Lab Interpretation Abnormal (test code = 13054-0) [facility] Glucose [id number] 14:18:40 Test Item Value Reference Interpretation Comments [...] Capillary code = 9554) Performing Lab (test [facility] code = 28384) [facility] Cli nical Lab, [address] [facility] [address]; Hi Lift Operator: Guerline Olmstead MD; Waived Point of Care Testing - Luz Maria levi MD Lab Interpretation Abnormal (test code = 50673-0) [facility] Glucose [id number] 14:18:40 Test Item Value Reference Interpretation Comments [...] Capillary code = 9554) Performing Lab (test [facility] code = 75619) [facility] Cli nical Lab, [address] [facility] [place] [address]; Hi Lift Operator: Guerline Olmstead MD; Waived Point of Care Testing - Luz Maria levi MD Lab Interpretation Abnormal (test code = 26392-8) [facility] Glucose [id number] 14:18:40 Test Item Value Reference Interpretation Comments [...] Capillary code = 9554) Performing Lab (test [facility] code = 13556) [facility] [address] [place] [place] [address]; Hi Lift Operator: Guerline Olmstead MD; Waived Point of Care Testing - Luz Maria levi MD Lab Interpretation Abnormal (test code = 47665-5) [facility] Glucose [id number] 14:18:40 Test Item Value Reference Interpretation Comments [...] Me thod description: Al l results are hcarlene sured using Electrochemistr y test methodology. Th e glucose in the sample mixes with the reagents on the test strip. The reac tion produces an albert ctric current. The am ount of current prod uced is proportional to the glucose concentration i n the blood. PO Sample Type (test Capillary code = 9554) Performing Lab (test [facility] code = 81957) [facility] Cli nical Lab, [address] [facility] [address], [facility], [place] [address]; Hi Lift Operator: Guerline Olmstead MD; Waived Point of Care Testing - Luz Maria levi MD Lab Interpretation Abnormal (test code = 75429-1) [facility] Glucose [id number] 14:18:40 Test Item Value Reference Interpretation Comments [...] Capillary code = 9554) Performing Lab (test [facility] code = 19823) [facility] [address] [facility] [address], [facility], [place] [address]; Hi Lift Operator: Guerline Olmstead MD; Waived Point of Care Testing - Luz Maria levi MD Lab Interpretation Abnormal (test code = 95419-5) [facility] Glucose [id number] 14:18:40 Test Item Value Reference Interpretation Comments [...] Capillary code = 9554) Performing Lab (test [facility] code = 12006) [facility] Cli nical Lab, [address] [facility] [address], [facility], [place] [address]; Hi Lift Operator: Guerline Olmstead MD; Waived Point of Care Testing - Luz Maria levi MD Lab Interpretation Abnormal (test code = 86497-0) [facility] Glucose [id number] 14:18:40 Test Item Value Reference Interpretation Comments [...] Capillary code = 9554) Performing Lab (test [facility] code = 01395) [facility] Cli nical Lab, [address] [place], [place] [address], [facility], [place] [address]; Hi Lift Operator: Guerline Olmstead MD; Waived Point of Care Testing - Luz Maria levi MD Lab Interpretation Abnormal (test code = 10163-8) [facility] Glucose [id number] 14:18:40 Test Item Value Reference Interpretation Comments [...] Capillary code = 9554) Performing Lab (test [facility] code = 40310) [facility] Cli nical Lab, [address] [place] [address]; Hi Lift Operator: Guerline Olmstead MD; Waived Point of Care Testing - Luz Maria levi MD Lab Interpretation Abnormal (test code = 20290-1) [facility] Glucose [id number] 14:18:40 Test Item Value Reference Interpretation Comments [...] Capillary code = 9554) Performing Lab (test [facility] [place] code = 44574) [facility] Cli nical Lab, [address] [place] [address]; Hi Lift Operator: Guerline Olmstead MD; Waived Point of Care Testing - Luz Maria levi MD Lab Interpretation Abnormal (test code = 69521-3) [facility] Glucose [id number] 14:18:40 Test Item Value Reference Interpretation Comments [...] Capillary code = 9554) Performing Lab (test [facility] code = 39530) [facility] Cli nical Lab, [address] [place] [address]; Hi Lift Operator: Guerline Olmstead MD; Waived Point of Care Testing - Luz Maria levi MD Lab Interpretation Abnormal (test code = 41144-1) [facility] Glucose [id number] 14:18:40 Test Item Value Reference Interpretation Comments [...] Capillary code = 9554) Performing Lab (test [facility] code = 64290) [facility] Cli nical Lab, [address] [place] [address]; Hi Lift Operator: Guerline Olmstead MD; Waived Point of Care Testing - Luz Maria levi MD Lab Interpretation Abnormal (test code = 59180-4) [facility] Glucose [id number] 14:18:40 Test Item Value Reference Interpretation Comments [...] Capillary code = 9554) Performing Lab (test [facility] code = 37201) [facility] Cli nical Lab, [address], [facility], [place] [address]; Hi Lift Operator: Guerline Olmstead MD; Waived Point of Care Testing - Luz Maria levi MD Lab Interpretation Abnormal (test code = 53980-4) [facility] Glucose [id number] 14:18:40 Test Item Value Reference Interpretation Comments [...] te st results by core lab methodology. Wa thod description: Al l results are charlene sured using Electrochemistr y test methodology. Th e glucose in the sample mixes with the reagents on the test strip. The reac tion produces an albert ctric current. The am ount of current prod uced is proportional to the glucose concentration i n the blood. PO Sample Type (test Capillary code = 9554) Performing Lab (test [facility] [place] code = 61596) [facility] Cli nical Lab, [address], [facility], [place] [address]; Hi Lift Operator: Guerline Olmstead MD; Waived Point of Care Testing - Luz Maria levi MD Lab Interpretation Abnormal (test code = 81327-8) [facility] Glucose [id number] 14:18:40 Test Item Value Reference Interpretation Comments [...] Capillary code = 9554) Performing Lab (test [facility] code = 80199) [facility] Cli nical Lab, [address] [place] [address]; Hi Lift Operator: Guerline Olmstead MD; Waived Point of Care Testing - Luz Maria levi MD Lab Interpretation Abnormal (test code = 24379-4) [facility] Glucose [id number] 14:18:40 Test Item Value Reference Interpretation Comments [...] Capillary code = 9554) Performing Lab (test [facility] code = 37535) [facility] Cli nical Lab, [address] [facility] [place] [address]; Hi Lift Operator: Guerline Olmstead MD; Waived Point of Care Testing - Luz Maria levi MD Lab Interpretation Abnormal (test code = 53726-7) [facility] [id number] 14:18:40 Test Item Value Reference Interpretation Comments [...] Capillary code = 9554) Performing Lab (test [facility] code = 28822) [facility] Cli nical Lab, [address] [facility] [place] [address]; Hi Lift Operator: Guerline Olmstead MD; Waived Point of Care Testing - Luz Maria levi MD Lab Interpretation Abnormal (test code = 44630-1) [facility] with [id number] 13:45:09 Test Item Value Reference Range Interpretation Comments PT (test code = 12.6 See_Comment [Automated message] The 5902-2) system which ge nerated this result transmit eugene reference range : 11.9 - 14.1 second(s). The reference range was not used to interpr et this result as nehemiah l/abnormal. INR (test code = 0.94 0.89-1.10 6301-6) [facility] with [id number] 13:45:09 Test Item Value Reference Range Interpretation Comments PT (test code = 12.6 See_Comment [Automated message] The 5902-2) system which ge nerated this result transmit eugene reference range : 11.9 - 14.1 second(s). The reference range was not used to interpr et this result as nehemiah l/abnormal. INR (test code = 0.94 0.89-1.10 6301-6) [facility] with [id number] 13:45:09 Test Item Value Reference Range Interpretation Comments PT (test code = 12.6 See_Comment [Automated message] The 590-2) system which ge nerated this result transmit eugene reference range : 11.9 - 14.1 second(s). The reference range was not used to interpr et this result as nehemiah l/abnormal. INR (test code = 0.94 0.89-1.10 6301-6) [facility] with [id number] 13:45:09 Test Item Value Reference Range Interpretation Comments PT (test code = 12.6 See_Comment [Automated message] The 5901-2) system which ge nerated this result transmit eugene reference range : 11.9 - 14.1 second(s). The reference range was not used to interpr et this result as nehemiah l/abnormal. INR (test code = 0.94 0.89-1.10 6301-6) [facility] with [id number] 13:45:09 Test Item Value Reference Range Interpretation Comments PT (test code = 12.6 See_Comment [Automated message] The 590-2) system which ge nerated this result transmit eugene reference range : 11.9 - 14.1 second(s). The reference range was not used to interpr et this result as nehemiah l/abnormal. INR (test code = 0.94 0.89-1.10 6301-6) [facility] with [id number] 13:45:09 Test Item Value Reference Range Interpretation Comments PT (test code = 12.6 See_Comment [Automated message] The 5902-2) system which ge nerated this result transmit eugene reference range : 11.9 - 14.1 second(s). The reference range was not used to interpr et this result as nehemiah l/abnormal. INR (test code = 0.94 0.89-1.10 6301-6) [facility] with [id number] 13:45:09 Test Item Value Reference Range Interpretation Comments PT (test code = 12.6 See_Comment [Automated message] The 5902-2) system which ge nerated this result transmit eugene reference range : 11.9 - 14.1 second(s). The reference range was not used to interpr et this result as nehemiah l/abnormal. INR (test code = 0.94 0.89-1.10 6301-6) [facility] with [id number] 13:45:09 Test Item Value Reference Range Interpretation Comments PT (test code = 12.6 See_Comment [Automated message] The 5902-2) system which ge nerated this result transmit eugene reference range : 11.9 - 14.1 second(s). The reference range was not used to interpr et this result as nehemiah l/abnormal. INR (test code = 0.94 0.89-1.10 6301-6) [facility] with [id number] 13:45:09 Test Item Value Reference Range Interpretation Comments PT (test code = 12.6 See_Comment [Automated message] The 5902-2) system which ge nerated this result transmit eugene reference range : 11.9 - 14.1 second(s). The reference range was not used to interpr et this result as nehemiha l/abnormal. INR (test code = 0.94 0.89-1.10 6301-6) [facility] with [id number] 13:45:09 Test Item Value Reference Range Interpretation Comments PT (test code = 12.6 See_Comment [Automated message] The 5902-2) system which ge nerated this result transmit eugene reference range : 11.9 - 14.1 second(s). The reference range was not used to interpr et this result as nehemiah l/abnormal. INR (test code = 0.94 0.89-1.10 6301-6) [facility] with [id number] 13:45:09 Test Item Value Reference Range Interpretation Comments PT (test code = 12.6 See_Comment [Automated message] The 5902-2) system which ge nerated this result transmit eugene reference range : 11.9 - 14.1 second(s). The reference range was not used to interpr et this result as nehemiah l/abnormal. INR (test code = 0.94 0.89-1.10 6301-6) [facility] with [id number] 13:45:09 Test Item Value Reference Range Interpretation Comments PT (test code = 12.6 See_Comment [Automated message] The 5902-2) system which ge nerated this result transmit eugene reference range : 11.9 - 14.1 second(s). The reference range was not used to interpr et this result as nehemiah l/abnormal. INR (test code = 0.94 0.89-1.10 630-6) [facility] with [id number] 13:45:09 Test Item Value Reference Range Interpretation Comments PT (test code = 12.6 See_Comment [Automated message] The 5902-2) system which ge nerated this result transmit eugene reference range : 11.9 - 14.1 second(s). The reference range was not used to interpr et this result as nehemiah l/abnormal. INR (test code = 0.94 0.89-1.10 630-6) [facility] Time with [id number] 13:45:09 Test Item Value Reference Range Interpretation Comments PT (test code = 12.6 See_Comment [Automated message] The 5902-2) system which ge nerated this result transmit eugene reference range : 11.9 - 14.1 second(s). The reference range was not used to interpr et this result as nehemiah l/abnormal. INR (test code = 0.94 0.89-1.10 6301-6) [facility] with [id number] 13:45:09 Test Item Value Reference Range Interpretation Comments PT (test code = 12.6 See_Comment [Automated message] The 590-2) system which ge nerated this result transmit eugene reference range : 11.9 - 14.1 second(s). The reference range was not used to interpr et this result as nehemiah l/abnormal. INR (test code = 0.94 0.89-1.10 6301-6) [facility]th[facility] Time with [id number] 13:45:09 Test Item Value Reference Range Interpretation Comments PT (test code = 12.6 See_Comment [Automated message] The 5902-2) system which ge nerated this result transmit eugene reference range : 11.9 - 14.1 second(s). The reference range was not used to interpr et this result as nehemiah l/abnormal. INR (test code = 0.94 0.89-1.10 630-6) [facility]raction[facility] [id number] 13:42:56 Test Item Value Reference Range Interpretation [...] par ameters are outside rep ortable range [facility]oFraction[facility] [id number] 13:42:56 Test Item Value Reference Range Interpretation [...] par ameters are outside rep ortable range [facility] [id number] 13:42:56 Test Item Value Reference Range Interpretation [...] par ameters are outside rep ortable range [facility] [id number] 13:42:56 Test Item Value Reference Range Interpretation [...] par ameters are outside rep ortable range [facility] [id number] 13:42:56 Test Item Value Reference Range Interpretation [...] par ameters are outside rep ortable range [facility] [id number] 13:42:56 Test Item Value Reference Range Interpretation [...] par ameters are outside rep ortable range [facility] [id number] 13:42:56 Test Item Value Reference Range Interpretation [...] par ameters are outside rep ortable range [facility]oGlomer[facility] Fil[facility] Rate 2022-04-02 13:42:54 Test Item Value Reference Range Interpretation Comments eGFR (test code = 143 See_Comment The eGFRcr is calculated with 23513-8) the 2020 CKD-EP I creatinine equation using [...] int erpret this result as nehemiah l/abnormal. [facility] 2022-04-02 13:42:54 Test Item Value Reference Range Interpretation Comments eGFR (test code = 143 See_Comment The eGFRcr is calculated with 75049-8) the 2020 CKD-EP I creatinine equation using [...] int erpret this result as nehemiah l/abnormal. [facility] [place] 2022-04-02 13:42:54 Test Item Value Reference Range Interpretation Comments eGFR (test code = 143 See_Comment The eGFRcr is calculated with 50192-2) the 2020 CKD-EP I creatinine equation using [...] CKD. [Automated mess age] The system which ChallengePost nerated this result transmit eugene reference range: >=60 mL/ min/1.73 sq. m. The referenc e range was not used to int erpret this result as nehemiah l/abnormal. [facility] 2022-04-02 13:42:54 Test Item Value Reference Range Interpretation Comments eGFR (test code = 143 See_Comment The eGFRcr is calculated with 54373-3) the 2020 CKD-EP I creatinine equation using [...] CKD. [Automated mess age] The system which [employer] nerated this result transmit eugene reference range: >=60 mL/ min/1.73 sq. m. The referenc e range was not used to int erpret this result as nehemiah l/abnormal. [facility] 2022-04-02 13:42:54 Test Item Value Reference Range Interpretation Comments eGFR (test code = 143 See_Comment The eGFRcr is calculated with 97469-2) the 2020 CKD-EP I creatinine equation using [...] int erpret this result as nehemiah l/abnormal. [facility] [place] Fil[place] Rate 2022-04-02 13:42:54 Test Item Value Reference Range Interpretation Comments eGFR (test code = 143 See_Comment The eGFRcr is calculated with 49733-2) the 2020 CKD-EP I creatinine equation using [...] CKD. [Automated mess age] The system which [employer] nerated this result transmit eugene reference range: >=60 mL/ min/1.73 sq. m. The referenc e range was not used to int erpret this result as nehemiah l/abnormal. [facility] 2022-04-02 13:42:54 Test Item Value Reference Range Interpretation Comments eGFR (test code = 143 See_Comment The eGFRcr is calculated with 79618-7) the 2020 CKD-EP I creatinine equation using [...] CKD. [Automated mess age] The system which [employer] nerated this result transmit eugene reference range: >=60 mL/ min/1.73 sq. m. The referenc e range was not used to int erpret this result as nehemiah l/abnormal. [facility] [place] Rrdeigx2164-80-83 13:42:52 Test Item Value Reference Range Interpretation Comments Total Protein (test code = 2885-2) 6.8 g/dL 6.4-8.3 [facility] Lixobok4296-12-63 13:42:52 Test Item Value Reference Range Interpretation Comments Total Protein (test code = 2885-2) 6.8 g/dL 6.4-8.3 [facility] Qcpykyh5532-38-21 13:42:52 Test Item Value Reference Range Interpretation Comments Total Protein (test code = 2885-2) 6.8 g/dL 6.4-8.3 [facility] Cypjqed4613-29-54 13:42:52 Test Item Value Reference Range Interpretation Comments Total Protein (test code = 2885-2) 6.8 g/dL 6.4-8.3 [facility] Kwbigze2150-75-16 13:42:52 Test Item Value Reference Range Interpretation Comments Total Protein (test code = 2885-2) 6.8 g/dL 6.4-8.3 [facility] Uboixbk8593-69-38 13:42:52 Test Item Value Reference Range Interpretation Comments Total Protein (test code = 2885-2) 6.8 g/dL 6.4-8.3 [facility] Sjcbqyz2586-38-58 13:42:52 Test Item Value Reference Range Interpretation Comments Total Protein (test code = 2885-2) 6.8 g/dL 6.4-8.3 [facility] Fpnyd7041-77-90 13:42:51 Test Item Value Reference Range Interpretation Comments Phosphorus (test code = 2777-1) 3.1 mg/dL 2.5-4.5 [facility] Uqnmf9050-10-89 13:42:51 Test Item Value Reference Range Interpretation Comments Phosphorus (test code = 2777-1) 3.1 mg/dL 2.5-4.5 [facility] Elxyo7027-79-89 13:42:51 Test Item Value Reference Range Interpretation Comments Phosphorus (test code = 2777-1) 3.1 mg/dL 2.5-4.5 [facility] Odfce6662-21-53 13:42:51 Test Item Value Reference Range Interpretation Comments Phosphorus (test code = 2777-1) 3.1 mg/dL 2.5-4.5 [facility] Vunas6572-51-36 13:42:51 Test Item Value Reference Range Interpretation Comments Phosphorus (test code = 2777-1) 3.1 mg/dL 2.5-4.5 [facility] Ubime0547-61-27 13:42:51 Test Item Value Reference Range Interpretation Comments Phosphorus (test code = 2777-1) 3.1 mg/dL 2.5-4.5 [facility] Glfdu9592-14-07 13:42:51 Test Item Value Reference Range Interpretation Comments Phosphorus (test code = 2777-1) 3.1 mg/dL 2.5-4.5 [facility] Ecnvc2099-11-87 13:42:51 Test Item Value Reference Range Interpretation Comments Phosphorus (test code = 2777-1) 3.1 mg/dL 2.5-4.5 [facility] Srvrr6464-27-56 13:42:51 Test Item Value Reference Range Interpretation Comments Phosphorus (test code = 2777-1) 3.1 mg/dL 2.5-4.5 [facility] Qwqid2131-30-55 13:42:51 Test Item Value Reference Range Interpretation Comments Phosphorus (test code = 2777-1) 3.1 mg/dL 2.5-4.5 [facility] Fnwoa0162-22-37 13:42:51 Test Item Value Reference Range Interpretation Comments Phosphorus (test code = 2777-1) 3.1 mg/dL 2.5-4.5 [facility] Wdgfc5688-87-14 13:42:51 Test Item Value Reference Range Interpretation Comments Phosphorus (test code = 2777-1) 3.1 mg/dL 2.5-4.5 [facility] Dddqo5803-72-36 13:42:51 Test Item Value Reference Range Interpretation Comments Phosphorus (test code = 2777-1) 3.1 mg/dL 2.5-4.5 [facility] Ghuhr7843-97-54 13:42:51 Test Item Value Reference Range Interpretation Comments Phosphorus (test code = 2777-1) 3.1 mg/dL 2.5-4.5 [facility] Izqml5320-66-37 13:42:51 Test Item Value Reference Range Interpretation Comments Phosphorus (test code = 2777-1) 3.1 mg/dL 2.5-4.5 [facility] Uwubo3636-31-86 13:42:51 Test Item Value Reference Range Interpretation Comments Phosphorus (test code = 2777-1) 3.1 mg/dL 2.5-4.5 [facility] Txhan7557-45-64 13:42:50 Test Item Value Reference Range Interpretation Comments Magnesium (test code = 65811-9) 2.4 mg/dL 1.6-2.6 [facility] Cknvj9136-01-60 13:42:50 Test Item Value Reference Range Interpretation Comments Magnesium (test code = 90710-7) 2.4 mg/dL 1.6-2.6 [facility] Yajza5337-22-53 13:42:50 Test Item Value Reference Range Interpretation Comments Magnesium (test code = 48645-8) 2.4 mg/dL 1.6-2.6 [facility] Fmxdd5231-32-12 13:42:50 Test Item Value Reference Range Interpretation Comments Magnesium (test code = 75767-7) 2.4 mg/dL 1.6-2.6 [facility] Hjfsm4673-68-69 13:42:50 Test Item Value Reference Range Interpretation Comments Magnesium (test code = 08837-1) 2.4 mg/dL 1.6-2.6 [facility] Nfhvb3928-72-65 13:42:50 Test Item Value Reference Range Interpretation Comments Magnesium (test code = 77541-9) 2.4 mg/dL 1.6-2.6 [facility] Zttwp9174-55-68 13:42:50 Test Item Value Reference Range Interpretation Comments Magnesium (test code = 00948-9) 2.4 mg/dL 1.6-2.6 [facility] Wwnuq1756-96-58 13:42:50 Test Item Value Reference Range Interpretation Comments Magnesium (test code = 32900-3) 2.4 mg/dL 1.6-2.6 [facility] Armnh9231-70-16 13:42:50 Test Item Value Reference Range Interpretation Comments Magnesium (test code = 22013-3) 2.4 mg/dL 1.6-2.6 [facility] Hclkv2467-56-36 13:42:50 Test Item Value Reference Range Interpretation Comments Magnesium (test code = 00394-6) 2.4 mg/dL 1.6-2.6 [facility] Kpvuc0927-07-55 13:42:50 Test Item Value Reference Range Interpretation Comments Magnesium (test code = 19944-5) 2.4 mg/dL 1.6-2.6 [facility] Rniob7165-97-12 13:42:50 Test Item Value Reference Range Interpretation Comments Magnesium (test code = 93396-3) 2.4 mg/dL 1.6-2.6 [facility] Paffi6779-23-87 13:42:50 Test Item Value Reference Range Interpretation Comments Magnesium (test code = 64046-7) 2.4 mg/dL 1.6-2.6 [facility] Ktctn8264-43-74 13:42:50 Test Item Value Reference Range Interpretation Comments Magnesium (test code = 66156-1) 2.4 mg/dL 1.6-2.6 [facility] Zoeqj1202-60-75 13:42:50 Test Item Value Reference Range Interpretation Comments Magnesium (test code = 55252-6) 2.4 mg/dL 1.6-2.6 [facility] Mklii4986-72-40 13:42:50 Test Item Value Reference Range Interpretation Comments Magnesium (test code = 02596-0) 2.4 mg/dL 1.6-2.6 [facility] Vqyzg1341-89-21 13:42:49 Test Item Value Reference Range Interpretation Comments Albumin Lvl (test code 3.9 See_Comment [Aut omated message] The = 1750-08) system which ge nerated this result tra nsmitted reference range : 3.5 - 5.2 gm/dL. The refe rence range was not used to interpret this result as normal/abnormal . [facility] Crtfw7953-91-19 13:42:49 Test Item Value Reference Range Interpretation Comments Albumin Lvl (test code 3.9 See_Comment [Aut omated message] The = 1750-08) system which ge nerated this result tra nsmitted reference range : 3.5 - 5.2 gm/dL. The refe rence range was not used to interpret this result as normal/abnormal . [facility]oAlbum[facility] Gpgkj3473-39-19 13:42:49 Test Item Value Reference Range Interpretation Comments Albumin Lvl (test code 3.9 See_Comment [Aut omated message] The = 1750-08) system which ge nerated this result tra nsmitted reference range : 3.5 - 5.2 gm/dL. The refe rence range was not used to interpret this result as normal/abnormal . [facility]oAlbum[facility] Wsmso9021-99-15 13:42:49 Test Item Value Reference Range Interpretation Comments Albumin Lvl (test code 3.9 See_Comment [Aut omated message] The = 1750-08) system which ge nerated this result tra nsmitted reference range : 3.5 - 5.2 gm/dL. The refe rence range was not used to interpret this result as normal/abnormal . [facility]oAlbum[facility] Olbyx3768-58-65 13:42:49 Test Item Value Reference Range Interpretation Comments Albumin Lvl (test code 3.9 See_Comment [Aut omated message] The = 1750-08) system which ge nerated this result tra nsmitted reference range : 3.5 - 5.2 gm/dL. The refe rence range was not used to interpret this result as normal/abnormal . [facility] Fqxqp9093-56-64 13:42:49 Test Item Value Reference Range Interpretation Comments Albumin Lvl (test code 3.9 See_Comment [Aut omated message] The = 1750-08) system which ge nerated this result tra nsmitted reference range : 3.5 - 5.2 gm/dL. The refe rence range was not used to interpret this result as normal/abnormal . [facility]oAlbum[facility] Ylyzn8011-20-82 13:42:49 Test Item Value Reference Range Interpretation Comments Albumin Lvl (test code 3.9 See_Comment [Aut omated message] The = 1751-7) system which ge nerated this result tra nsmitted reference range : 3.5 - 5.2 gm/dL. The refe rence range was not used to interpret this result as normal/abnormal . [facility]oAlk[facility] Ebwzoovrbwz8965-14-03 13:42:48 Test Item Value Reference Range Interpretation Comments Alk Phos (test code = 6768-6) 93 U/L 35-104 [facility]oAlk[facility] Vsaazufvhhz4019-30-75 13:42:48 Test Item Value Reference Range Interpretation Comments Alk Phos (test code = 6768-6) 93 U/L 35-104 [facility]oAlk[facility] Sixpnlmtawj0067-00-77 13:42:48 Test Item Value Reference Range Interpretation Comments Alk Phos (test code = 6768-6) 93 U/L 35-104 [facility]oAl[facility] Bcrsuviovis4664-27-59 13:42:48 Test Item Value Reference Range Interpretation Comments Alk Phos (test code = 6768-6) 93 U/L 35-104 [facility] Tjjfaifwrhq9199-76-66 13:42:48 Test Item Value Reference Range Interpretation Comments Alk Phos (test code = 6768-6) 93 U/L 35-104 [facility] Gvepxlshqsv7692-61-92 13:42:48 Test Item Value Reference Range Interpretation Comments Alk Phos (test code = 6768-6) 93 U/L 35-104 [facility] Lldxmyjjvlz5543-18-28 13:42:48 Test Item Value Reference Range Interpretation Comments Alk Phos (test code = 6768-6) 93 U/L 35-104 [facility]oAspart[facility] Aminotransferase 2022-04-02 13:42:47 Test Item Value Reference Range Interpretation Comments AST (test code = 1920-8) 31 U/L <=32 [facility]art[facility] Aminotransferase 2022-04-02 13:42:47 Test Item Value Reference Range Interpretation Comments AST (test code = 1920-8) 31 U/L <=32 [facility] Aminotransferase 2022-04-02 13:42:47 Test Item Value Reference Range Interpretation Comments AST (test code = 1920-8) 31 U/L <=32 [facility] Aminotransferase 2022-04-02 13:42:47 Test Item Value Reference Range Interpretation Comments AST (test code = 1920-8) 31 U/L <=32 [facility]art[facility] Aminotransferase 2022-04-02 13:42:47 Test Item Value Reference Range Interpretation Comments AST (test code = 1920-8) 31 U/L <=32 [facility] 2022-04-02 13:42:47 Test Item Value Reference Range Interpretation Comments AST (test code = 1920-8) 31 U/L <=32 [facility] 2022-04-02 13:42:47 Test Item Value Reference Range Interpretation Comments AST (test code = 1920-8) 31 U/L <=32 [place] 48620023-02-07 13:42:46 Test Item Value Reference Range Interpretation Comments ALT (test code = 1742-6) 37 U/L <=33 H Lab Interpretation (test code = Abnormal 72909-3) [place] 48620023-02-07 13:42:46 Test Item Value Reference Range Interpretation Comments ALT (test code = 1742-6) 37 U/L <=33 H Lab Interpretation (test code = Abnormal 89559-5) [place] 48620023-02-07 13:42:46 Test Item Value Reference Range Interpretation Comments ALT (test code = 1742-6) 37 U/L <=33 H Lab Interpretation (test code = Abnormal 98682-4) [place] 48620023-02-07 13:42:46 Test Item Value Reference Range Interpretation Comments ALT (test code = 1742-6) 37 U/L <=33 H Lab Interpretation (test code = Abnormal 30031-1) [place] 48620023-02-07 13:42:46 Test Item Value Reference Range Interpretation Comments ALT (test code = 1742-6) 37 U/L <=33 H Lab Interpretation (test code = Abnormal 40645-4[facility] 13:[facility]46 Test Item Value Reference Range Interpretation Comments ALT (test code = 1742-6) 37 U/L <=33 H Lab Interpretation (test code = Abnormal 75905-9) [facility] 13:42:46 Test Item Value Reference Range Interpretation Comments ALT (test code = 1742-6) 37 U/L <=33 H Lab Interpretation (test code = Abnormal 47853-9) [facility]ro[facility] Ppwcv1131-64-80 13:42:45 Test Item Value Reference Range Interpretation [...] to interpret this result as normal/abnormal . [facility]ro[facility] Qoezr7112-57-24 13:42:45 Test Item Value Reference Range Interpretation [...] = 12 See_Comment [Aut omated message] The 20954-7) system which ge nerated this result tra nsmitted reference range : 4 - 14 mEq/L. The refe rence range was not u sed to interpret this result as normal/abnormal . [facility]ro[facility] Pguuc5282-02-43 13:42:45 Test Item Value Reference Range Interpretation [...] to interpret this result as normal/abnormal . [facility] Wyunj4667-00-65 13:42:45 Test Item Value Reference Range Interpretation [...] to interpret this result as normal/abnormal . [facility] Mdvtj9346-09-04 13:42:45 Test Item Value Reference Range Interpretation [...] to interpret this result as normal/abnormal . [facility] [place] Jcukc6370-72-34 13:42:45 Test Item Value Reference Range Interpretation [...] to interpret this result as normal/abnormal . [facility] Cfbhp1016-63-28 13:42:45 Test Item Value Reference Range Interpretation [...] to interpret this result as normal/abnormal . [facility].Serum Mxzwwendwq4893-87-57 13:42:44 Test Item Value Reference Range Interpretation Comments Creatinine (test code = 2160-0) 0.37 mg/dL 0.51-0.95 L Lab Interpretation (test code = Abnormal 88763-0) [facility] Ckzxeenhid0892-66-26 13:42:44 Test Item Value Reference Range Interpretation Comments Creatinine (test code = 2160-0) 0.37 mg/dL 0.51-0.95 L Lab Interpretation (test code = Abnormal 63523-9) [facility].Serum Lcfozodtut0576-48-00 13:42:44 Test Item Value Reference Range Interpretation Comments Creatinine (test code = 2160-0) 0.37 mg/dL 0.51-0.95 L Lab Interpretation (test code = Abnormal 97728-3) [facility] Oslrpmzpes8876-58-55 13:42:44 Test Item Value Reference Range Interpretation Comments Creatinine (test code = 2160-0) 0.37 mg/dL 0.51-0.95 L Lab Interpretation (test code = Abnormal 05274-1) [facility]um Svscwztwdq4064-05-78 13:42:44 Test Item Value Reference Range Interpretation Comments Creatinine (test code = 2160-0) 0.37 mg/dL 0.51-0.95 L Lab Interpretation (test code = Abnormal 95828-0) [facility] Fzppjvybba3720-06-91 13:42:44 Test Item Value Reference Range Interpretation Comments Creatinine (test code = 2160-0) 0.37 mg/dL 0.51-0.95 L Lab Interpretation (test code = Abnormal 27289-4) [facility] Aiadkipacq0058-47-45 13:42:44 Test Item Value Reference Range Interpretation Comments Creatinine (test code = 2160-0) 0.37 mg/dL 0.51-0.95 L Lab Interpretation (test code = Abnormal 24093-3) [facility]oGl[facility] Jhbnt9687-68-65 13:42:43 Test Item Value Reference Range Interpretation [...] diabetes Lab Interpretation (test Abnormal code = 73642-6) [facility] Alqhk7197-55-16 13:42:43 Test Item Value Reference Range Interpretation [...] diabetes Lab Interpretation (test Abnormal code = 46041-2) [facility]oGl[facility] Dmpka7887-49-16 13:42:43 Test Item Value Reference Range Interpretation [...] diabetes Lab Interpretation (test Abnormal code = 85027-6) [facility] Egbqg5420-14-47 13:42:43 Test Item Value Reference Range Interpretation [...] diabetes Lab Interpretation (test Abnormal code = 25958-4) [facility] Jrhnk1177-06-53 13:42:43 Test Item Value Reference Range Interpretation [...] diabetes Lab Interpretation (test Abnormal code = 35039-2) [facility]Gl[facility] Qsegb9005-41-30 13:42:43 Test Item Value Reference Range Interpretation [...] diabetes Lab Interpretation (test Abnormal code = 97258-4) [facility]oGl[facility] Voffh5222-91-49 13:42:43 Test Item Value Reference Range Interpretation [...] diabetes Lab Interpretation (test Abnormal code = 61850-1) [facility] 13:42:42 Test Item Value Reference Range Interpretation Comments BUN (test code = 3094-0) 15 mg/dL 6- [facility] 13:42:42 Test Item Value Reference Range Interpretation Comments BUN (test code = 3094-0) 15 mg/dL - [facility] 13:42:42 Test Item Value Reference Range Interpretation Comments BUN (test code = 3094-0) 15 mg/dL 6- [facility] 13:42:42 Test Item Value Reference Range Interpretation Comments BUN (test code = 3094-0) 15 mg/dL 6- [facility] 13:42:42 Test Item Value Reference Range Interpretation Comments BUN (test code = 3094-0) 15 mg/dL - [facility]07 13:42:42 Test Item Value Reference Range Interpretation Comments BUN (test code = 3094-0) 15 mg/dL 6- [facility]07 13:42:42 Test Item Value Reference Range Interpretation Comments BUN (test code = 3094-0) 15 mg/dL 6- [facility]oCalcium Ionized, Luteke9184-37-82 13:09:59 Test Item Value Reference Range Interpretation Comments V Ion Ca (test code = 29044-2) 1.13 mmol/L 1.15-1.29 L Lab Interpretation (test code = Abnormal 49476-4) [facility]oCal[facility], Lqyelb4185-15-19 13:09:59 Test Item Value Reference Range Interpretation Comments V Ion Ca (test code = 84060-1) 1.13 mmol/L 1.15-1.29 L Lab Interpretation (test code = Abnormal 94931-8) [facility]oCal[facility], Syunyo3038-77-94 13:09:59 Test Item Value Reference Range Interpretation Comments V Ion Ca (test code = 97889-5) 1.13 mmol/L 1.15-1.29 L Lab Interpretation (test code = Abnormal 91809-6) [facility], Hspunk7070-26-22 13:09:59 Test Item Value Reference Range Interpretation Comments V Ion Ca (test code = 08938-8) 1.13 mmol/L 1.15-1.29 L Lab Interpretation (test code = Abnormal 41979-0) [facility], Ldbrfb4898-15-18 13:09:59 Test Item Value Reference Range Interpretation Comments V Ion Ca (test code = 50403-0) 1.13 mmol/L 1.15-1.29 L Lab Interpretation (test code = Abnormal 34166-6) [facility]Cal[facility], Pcvtgh2316-93-21 13:09:59 Test Item Value Reference Range Interpretation Comments V Ion Ca (test code = 30799-9) 1.13 mmol/L 1.15-1.29 L Lab Interpretation (test code = Abnormal 75821-9) [facility]Cal[facility], Tuwxug9168-43-80 13:09:59 Test Item Value Reference Range Interpretation Comments V Ion Ca (test code = 12413-3) 1.13 mmol/L 1.15-1.29 L Lab Interpretation (test code = Abnormal 66559-1) [facility]Cal[facility], Fbzqij2998-93-47 13:09:59 Test Item Value Reference Range Interpretation Comments V Ion Ca (test code = 82275-3) 1.13 mmol/L 1.15-1.29 L Lab Interpretation (test code = Abnormal 57974-0) [facility]Cal[facility], Dznncs8052-49-10 13:09:59 Test Item Value Reference Range Interpretation Comments V Ion Ca (test code = 13970-9) 1.13 mmol/L 1.15-1.29 L Lab Interpretation (test code = Abnormal 02788-7) [facility], Axospz8052-60-50 13:09:59 Test Item Value Reference Range Interpretation Comments V Ion Ca (test code = 18085-8) 1.13 mmol/L 1.15-1.29 L Lab Interpretation (test code = Abnormal 46130-4) [facility], Dpikka8673-03-10 13:09:59 Test Item Value Reference Range Interpretation Comments V Ion Ca (test code = 88512-2) 1.13 mmol/L 1.15-1.29 L Lab Interpretation (test code = Abnormal 89204-5) [facility], Lfzqyz5738-96-12 13:09:59 Test Item Value Reference Range Interpretation Comments V Ion Ca (test code = 40569-4) 1.13 mmol/L 1.15-1.29 L Lab Interpretation (test code = Abnormal 74811-9) [facility], Mgcair1288-43-24 13:09:59 Test Item Value Reference Range Interpretation Comments V Ion Ca (test code = 42128-1) 1.13 mmol/L 1.15-1.29 L Lab Interpretation (test code = Abnormal 37392-9) [facility], Ioiuwf9090-90-92 13:09:59 Test Item Value Reference Range Interpretation Comments V Ion Ca (test code = 61671-2) 1.13 mmol/L 1.15-1.29 L Lab Interpretation (test code = Abnormal 64480-9) [facility], Ledmft8743-00-63 13:09:59 Test Item Value Reference Range Interpretation Comments V Ion Ca (test code = 39459-3) 1.13 mmol/L 1.15-1.29 L Lab Interpretation (test code = Abnormal 13093-4) [facility], Jtpdjk7164-44-88 13:09:59 Test Item Value Reference Range Interpretation Comments V Ion Ca (test code = 87471-0) 1.13 mmol/L 1.15-1.29 L Lab Interpretation (test code = Abnormal 88489-5) [facility] [id number] 01:10:38 Test Item Value Reference Range Interpretation Comments A1C (test code = 4548-4) 8.4 % 4.3-5.6 H HbA 1c values >=6.5% are diagnostic of diabetes mellitus.Diagno sis should be confi rmed by repeat testing.Therape utic Action suggeste d: >8.0% HbA1c; Go al oftherapy: <7.0 % HbA1c Lab Interpretation (test Abnormal code = 90269-6) [facility] [id number] 01:10:38 Test Item Value Reference Range Interpretation Comments A1C (test code = 4548-4) 8.4 % 4.3-5.6 H HbA 1c values >=6.5% are diagnostic of diabetes mellitus.Diagno sis should be confi rmed by repeat testing.Therape utic Action suggeste d: >8.0% HbA1c; Go al oftherapy: <7.0 % HbA1c Lab Interpretation (test Abnormal code = 61280-1) [facility] [id number] 01:10:38 Test Item Value Reference Range Interpretation Comments A1C (test code = 4548-4) 8.4 % 4.3-5.6 H HbA 1c values >=6.5% are diagnostic of diabetes mellitus.Diagno sis should be confi rmed by repeat testing.Therape utic Action suggeste d: >8.0% HbA1c; Go al oftherapy: <7.0 % HbA1c Lab Interpretation (test Abnormal code = 86472-5) [facility] [id number] 01:10:38 Test Item Value Reference Range Interpretation Comments A1C (test code = 4548-4) 8.4 % 4.3-5.6 H HbA 1c values >=6.5% are diagnostic of diabetes mellitus.Diagno sis should be confi rmed by repeat testing.Therape utic Action suggeste d: >8.0% HbA1c; Go al oftherapy: <7.0 % HbA1c Lab Interpretation (test Abnormal code = 06120-5) [facility] [id number] 01:10:38 Test Item Value Reference Range Interpretation Comments A1C (test code = 4548-4) 8.4 % 4.3-5.6 H HbA 1c values >=6.5% are diagnostic of diabetes mellitus.Diagno sis should be confi rmed by repeat testing.Therape utic Action suggeste d: >8.0% HbA1c; Go al oftherapy: <7.0 % HbA1c Lab Interpretation (test Abnormal code = 48447-7) [facility] [id number] 01:10:38 Test Item Value Reference Range Interpretation Comments A1C (test code = 4548-4) 8.4 % 4.3-5.6 H HbA 1c values >=6.5% are diagnostic of diabetes mellitus.Diagno sis should be confi rmed by repeat testing.Therape utic Action suggeste d: >8.0% HbA1c; Go al oftherapy: <7.0 % HbA1c Lab Interpretation (test Abnormal code = 09568-4) [facility] [id number] 01:10:38 Test Item Value Reference Range Interpretation Comments A1C (test code = 4548-4) 8.4 % 4.3-5.6 H HbA 1c values >=6.5% are diagnostic of diabetes mellitus.Diagno sis should be confi rmed by repeat testing.Therape utic Action suggeste d: >8.0% HbA1c; Go al oftherapy: <7.0 % HbA1c Lab Interpretation (test Abnormal code = 42170-9) [id number] 01:10:38 Test Item Value Reference Range Interpretation Comments A1C (test code = 4548-4) 8.4 % 4.3-5.6 H HbA 1c values >=6.5% are diagnostic of diabetes mellitus.Diagno sis should be confi rmed by repeat testing.Therape utic Action suggeste d: >8.0% HbA1c; Go al oftherapy: <7.0 % HbA1c Lab Interpretation (test Abnormal code = 40020-2) [facility] [id number] 01:10:38 Test Item Value Reference Range Interpretation Comments A1C (test code = 4548-4) 8.4 % 4.3-5.6 H HbA 1c values >=6.5% are diagnostic of diabetes mellitus.Diagno sis should be confi rmed by repeat testing.Therape utic Action suggeste d: >8.0% HbA1c; Go al oftherapy: <7.0 % HbA1c Lab Interpretation (test Abnormal code = 66975-3) [facility] [id number] 01:10:38 Test Item Value Reference Range Interpretation Comments A1C (test code = 4548-4) 8.4 % 4.3-5.6 H HbA 1c values >=6.5% are diagnostic of diabetes mellitus.Diagno sis should be confi rmed by repeat testing.Therape utic Action suggeste d: >8.0% HbA1c; Go al oftherapy: <7.0 % HbA1c Lab Interpretation (test Abnormal code = 01734-4) [facility] [id number] 01:10:38 Test Item Value Reference Range Interpretation Comments A1C (test code = 4548-4) 8.4 % 4.3-5.6 H HbA 1c values >=6.5% are diagnostic of diabetes mellitus.Diagno sis should be confi rmed by repeat testing.Therape utic Action suggeste d: >8.0% HbA1c; Go al oftherapy: <7.0 % HbA1c Lab Interpretation (test Abnormal code = 58555-6) [facility] [id number] 01:10:38 Test Item Value Reference Range Interpretation Comments A1C (test code = 4548-4) 8.4 % 4.3-5.6 H HbA 1c values >=6.5% are diagnostic of diabetes mellitus.Diagno sis should be confi rmed by repeat testing.Therape utic Action suggeste d: >8.0% HbA1c; Go al oftherapy: <7.0 % HbA1c Lab Interpretation (test Abnormal code = 52730-2) [facility] [id number] 01:10:38 Test Item Value Reference Range Interpretation Comments A1C (test code = 4548-4) 8.4 % 4.3-5.6 H HbA 1c values >=6.5% are diagnostic of diabetes mellitus.Diagno sis should be confi rmed by repeat testing.Therape utic Action suggeste d: >8.0% HbA1c; Go al oftherapy: <7.0 % HbA1c Lab Interpretation (test Abnormal code = 20001-8) [facility] [id number] 01:10:38 Test Item Value Reference Range Interpretation Comments A1C (test code = 4548-4) 8.4 % 4.3-5.6 H HbA 1c values >=6.5% are diagnostic of diabetes mellitus.Diagno sis should be confi rmed by repeat testing.Therape utic Action suggeste d: >8.0% HbA1c; Go al oftherapy: <7.0 % HbA1c Lab Interpretation (test Abnormal code = 31319-8) [facility] [id number] 01:10:38 Test Item Value Reference Range Interpretation Comments A1C (test code = 4548-4) 8.4 % 4.3-5.6 H HbA 1c values >=6.5% are diagnostic of diabetes mellitus.Diagno sis should be confi rmed by repeat testing.Therape utic Action suggeste d: >8.0% HbA1c; Go al oftherapy: <7.0 % HbA1c Lab Interpretation (test Abnormal code = 19775-2) [facility] [id number] 01:10:38 Test Item Value Reference Range Interpretation Comments A1C (test code = 4548-4) 8.4 % 4.3-5.6 H HbA 1c values >=6.5% are diagnostic of diabetes mellitus.Diagno sis should be confi rmed by repeat testing.Therape utic Action suggeste d: >8.0% HbA1c; Go al oftherapy: <7.0 % HbA1c Lab Interpretation (test Abnormal code = 37566-3) [facility] Add-On Test 2022-04-01 22:26:00 Test Item Value Reference Range Interpretation Comments Ordered (test code = 6568) Test Added Test Needed (test code = 7604) Hemoglobin A1c [facility] Add-On Test 2022-04-01 22:26:00 Test Item Value Reference Range Interpretation Comments Ordered (test code = 6568) Test Added Test Needed (test code = 7604) Hemoglobin A1c [facility] Add-On Test 2022-04-01 22:26:00 Test Item Value Reference Range Interpretation Comments Ordered (test code = 6568) Test Added Test Needed (test code = 7604) Hemoglobin A1c [facility] Add-On Test 2022-04-01 22:26:00 Test Item Value Reference Range Interpretation Comments Ordered (test code = 6568) Test Added Test Needed (test code = 7604) [facility] 2022-04-01 22:26:00 Test Item Value Reference Range Interpretation Comments Ordered (test code = 6568) Test Added Test Needed (test code = 7604) Hemoglobin [facility]c [facility] 2022-04-01 22:26:00 Test Item Value Reference Range Interpretation Comments Ordered (test code = 6568) Test Added Test Needed (test code = 7604) Hemoglobin [facility]c [facility] 2022-04-01 22:26:00 Test Item Value Reference Range Interpretation Comments Ordered (test code = 6568) Test Added Test Needed (test code = 7604) Hemoglobin [facility]c [facility] 2022-04-01 22:26:00 Test Item Value Reference Range Interpretation Comments Ordered (test code = 6568) Test Added Test Needed (test code = 7604) [facility] 2022-04-01 22:26:00 Test Item Value Reference Range Interpretation Comments Ordered (test code = 6568) Test Added Test Needed (test code = 7604) [facility]c [facility] 2022-04-01 22:26:00 Test Item Value Reference Range Interpretation Comments Ordered (test code = 6568) Test Added Test Needed (test code = 7604) Hemoglobin A1c [facility] Add-On Test 2022-04-01 22:26:00 Test Item Value Reference Range Interpretation Comments Ordered (test code = 6568) Test Added Test Needed (test code = 7604) Hemoglobin A1c [facility] Add-On Test 2022-04-01 22:26:00 Test Item Value Reference Range Interpretation Comments Ordered (test code = 6568) Test Added Test Needed (test code = 7604) Hemoglobin A1c [facility] Add-On Test 2022-04-01 22:26:00 Test Item Value Reference Range Interpretation Comments Ordered (test code = 6568) Test Added Test Needed (test code = 7604) Hemoglobin A1c [facility] Add-On Test 2022-04-01 22:26:00 Test Item Value Reference Range Interpretation Comments Ordered (test code = 6568) Test Added Test Needed (test code = 7604) Hemoglobin A1c [facility] Add-On Test 2022-04-01 22:26:00 Test Item Value Reference Range Interpretation Comments Ordered (test code = 6568) Test Added Test Needed (test code = 7604) Hemoglobin A1c [facility] Add-On Test 2022-04-01 22:26:00 Test Item Value Reference Range Interpretation Comments Ordered (test code = 6568) Test Added Test Needed (test code = 7604) [facility]oglobin [facility]1c [facility] [id number] 21:53:52 Test Item Value Reference Range Interpretation Comments Final Report (test No growth code = 8488) Path Review - Immunity and antibiotic Bottle/Isolator use may render culture (test code = 8499) negative. Ongoing infection requires repeat culture. The results have been reviewed and electronically signed by Pathologist:Abiodun Vázquez MD, PhD #[id number] [facility] [id number] 21:53:52 Test Item Value Reference Range Interpretation Comments Final Report (test No growth code = 8488) Path Review - Immunity and antibiotic Bottle/Isolator use may render culture (test code = 8499) negative. Ongoing infection requires repeat culture. The results have been reviewed and electronically signed by Pathologist:Abiodun Vázquez MD, PhD #[id number] [facility]2023-02-06 21:53:52 Test Item Value Reference Range Interpretation Comments Final Report (test No growth code = 8488) Path Review - Immunity and antibiotic Bottle/Isolator use may render culture (test code = 8499) negative. Ongoing infection requires repeat culture. The results have been reviewed and electronically signed by Pathologist:Abiodun Vázquez MD, PhD #[id number] [facility]2023-02-06 21:53:52 Test Item Value Reference Range Interpretation Comments Final Report (test No growth code = 8488) Path Review - Immunity and antibiotic Bottle/Isolator use may render culture (test code = 8499) negative. Ongoing infection requires repeat culture. The results have been reviewed and electronically signed by Pathologist:Abiodun Vázquez MD, PhD #[id number] [facility]2023-02-06 21:53:52 Test Item Value Reference Range Interpretation Comments Final Report (test No growth code = 8488) Path Review - Immunity and antibiotic Bottle/Isolator use may render culture (test code = 8499) negative. Ongoing infection requires repeat culture. The results have been reviewed and electronically signed by Pathologist:Abiodun Vázquez MD, PhD #[id number] [facility]2023-02-06 21:53:52 Test Item Value Reference Range Interpretation Comments Final Report (test No growth code = 8488) Path Review - Immunity and antibiotic Bottle/Isolator use may render culture (test code = 8499) negative. Ongoing infection requires repeat culture. The results have been reviewed and electronically signed by Pathologist:Abiodun Vázquez MD, PhD #[id number] [facility]2023-02-06 21:53:52 Test Item Value Reference Range Interpretation Comments Final Report (test No growth code = 8488) Path Review - Immunity and antibiotic Bottle/Isolator use may render culture (test code = 8499) negative. Ongoing infection requires repeat culture. The results have been reviewed and electronically signed by Pathologist:Abiodun Vázquez MD, PhD #[id number] [facility]2023-02-06 21:53:52 Test Item Value Reference Range Interpretation Comments Final Report (test No growth code = 8488) Path Review - Immunity and antibiotic Bottle/Isolator use may render culture (test code = 8499) negative. Ongoing infection requires repeat culture. The results have been reviewed and electronically signed by Pathologist:Abiodun Vázquez MD, PhD #[id number] [facility]2023-02-06 21:53:52 Test Item Value Reference Range Interpretation Comments Final Report (test No growth code = 8488) Path Review - Immunity and antibiotic Bottle/Isolator use may render culture (test code = 8499) negative. Ongoing infection requires repeat culture. The results have been reviewed and electronically signed by Pathologist:Abiodun Vázquez MD, PhD #[id number] [facility]2023-02-06 21:53:52 Test Item Value Reference Range Interpretation Comments Final Report (test No growth code = 8488) Path Review - Immunity and antibiotic Bottle/Isolator use may render culture (test code = 8499) negative. Ongoing infection requires repeat culture. The results have been reviewed and electronically signed by Pathologist:Abiodun Vázquez MD, PhD #[id number] [facility]2023-02-06 21:53:52 Test Item Value Reference Range Interpretation Comments Final Report (test No growth code = 8488) Path Review - Immunity and antibiotic Bottle/Isolator use may render culture (test code = 8499) negative. Ongoing infection requires repeat culture. The results have been reviewed and electronically signed by Pathologist:Abiodun Vázquez MD, PhD #[id number] [facility]2023-02-06 21:53:52 Test Item Value Reference Range Interpretation Comments Final Report (test No growth code = 8488) Path Review - Immunity and antibiotic Bottle/Isolator use may render culture (test code = 8499) negative. Ongoing infection requires repeat culture. The results have been reviewed and electronically signed by Pathologist:Abiodun Vázquez MD, PhD #[id number] [facility]2023-02-06 21:53:52 Test Item Value Reference Range Interpretation Comments Final Report (test No growth code = 8488) Path Review - Immunity and antibiotic Bottle/Isolator use may render culture (test code = 8499) negative. Ongoing infection requires repeat culture. The results have been reviewed and electronically signed by Pathologist:Abiodun Vázquez MD, PhD #[id number] [facility] [id number] 21:53:52 Test Item Value Reference Range Interpretation Comments Final Report (test No growth code = 8488) Path Review - Immunity and antibiotic Bottle/Isolator use may render culture (test code = 8499) negative. Ongoing infection requires repeat culture. The results have been reviewed and electronically signed by Pathologist:Abiodun Vázquez MD, PhD #[id number] [facility] [id number] 21:53:52 Test Item Value Reference Range Interpretation Comments Final Report (test No growth code = 8488) Path Review - Immunity and antibiotic Bottle/Isolator use may render culture (test code = 8499) negative. Ongoing infection requires repeat culture. The results have been reviewed and electronically signed by Pathologist:Abiodun Vázquez MD, PhD #[id number] [facility] [id number] 21:53:52 Test Item Value Reference Range Interpretation Comments Final Report (test No growth code = 8488) Path Review - Immunity and antibiotic Bottle/Isolator use may render culture (test code = 8499) negative. Ongoing infection requires repeat culture. The results have been reviewed and electronically signed by Pathologist:Abiodun Vázquez MD, PhD #[id number] [facility] Antibody Screen [id number] 19:22:14 Test Item Value Reference Range Interpretation Comments TMP Auto Neg At the present ABSC Interp time, patient (test code = plasma shows no ____VICKIE BENITEZ 7535) evidence of RBC MD REESE, P hD - alloantibodies. [id number] d by: Teresa BENSON, PhD - [id number] D ate/Time: 04.01.2022 13:2 2 PM COLORIST DYER Transcribed Chucky e/Time: 04.01.2022 13:2 2 PM CSTElectronical ly Signed By: VICKIE LEIGH MD, PhD - [id number] on 04.01.2022 1 3:22 PM [facility] Interpretation Antibody Screen [id number] 19:22:14 Test Item Value Reference Range Interpretation Comments TMP Auto Neg At the present ABSC Interp time, patient (test code = plasma shows no ____MAYRIN C ORREA 7535) evidence of RBC MD LEIGH P hD - alloantibodies. [id number] d by: Teresa BENSON, PhD - [id number] D ate/Time: 04.01.2022 13:2 2 PM COLORIST DYER Transcribed Chucky e/Time: 04.01.2022 13:2 2 PM CSTElectronical ly Signed By: VICKIE LEIGH MD, PhD - [id number] on 04.01.2022 1 3:22 PM [facility] Interpretation Antibody Screen [id number] 19:22:14 Test Item Value Reference Range Interpretation Comments TMP Auto Neg At the present ABSC Interp time, patient (test code = plasma shows no ____MAYRIN C ORREA 7535) evidence of TRISHA LEIGH MD, P hD - alloantibodies. [id number] d by: Teresa BENSON, PhD - [id number] D ate/Time: 04.01.2022 13:2 2 PM COLORIST DYER Transcribed Chucky e/Time: 04.01.2022 13:2 2 PM CSTElectronical ly Signed By: VCIKIE LEIGH MD, PhD - [id number] on 04.01.2022 1 3:22 PM [facility] Interpretation Antibody Screen [id number] 19:22:14 Test Item Value Reference Range Interpretation Comments TMP Auto Neg At the present ABSC Interp time, patient (test code = plasma shows no ____MAYRIN C ORREA 7535) evidence of RBC MD REESE, P hD - alloantibodies. [id number] d by: Teresa BENSON, PhD - [id number] D ate/Time: 04.01.2022 13:2 2 PM COLORIST DYER Transcribed Chucky e/Time: 04.01.2022 13:2 2 PM CSTElectronical ly Signed By: VICKIE LEIGH MD, PhD - [id number] on 04.01.2022 1 3:22 PM [facility] Screen [id number] 19:22:14 Test Item Value Reference Range Interpretation Comments TMP Auto Neg At the present ABSC Interp time, patient (test code = plasma shows no ____MAYRIN C ORREA 7535) evidence of TRISHA LEIGH MD, P hD - alloantibodies. [id number] d by: Teresa BENSON, PhD - [id number] D ate/Time: 04.01.2022 13:2 2 PM COLORIST DYER Transcribed Chucky e/Time: 04.01.2022 13:2 2 PM CSTElectronical ly Signed By: VICKIE LEIGH MD, PhD - [id number] on 04.01.2022 1 3:22 PM [facility] Antibody Screen [id number] 19:22:14 Test Item Value Reference Range Interpretation Comments TMP Auto Neg At the present ABSC Interp time, patient (test code = plasma shows no ____MAYRIN C ORREA 7535) evidence of RBC MD REESE P hD - alloantibodies. [id number] d by: Teresa BENSON, PhD - [id number] D ate/Time: 04.01.2022 13:2 2 PM COLORIST DYER Transcribed Chucky e/Time: 04.01.2022 13:2 2 PM CSTElectronical ly Signed By: VICKIE LEIGH MD, PhD - [id number] on 04.01.2022 1 3:22 PM [facility] Antibody Screen [id number] 19:22:14 Test Item Value Reference Range Interpretation Comments TMP Auto Neg At the present ABSC Interp time, patient (test code = plasma shows no ____MAYRIN C ORREA 7535) evidence of RBC MD LEIGH P hD - alloantibodies. [id number] d by: Teresa BENSON, PhD - [id number] D ate/Time: 04.01.2022 13:2 2 PM COLORIST DYER Transcribed Chucky e/Time: 04.01.2022 13:2 2 PM CSTElectronical ly Signed By: VICKIE LEIGH MD, PhD - [id number] on 04.01.2022 1 3:22 PM [facility] [place] Antibody Screen [id number] 19:22:14 Test Item Value Reference Range Interpretation Comments TMP Auto Neg At the present ABSC Interp time, patient (test code = plasma shows no ____MAYRIN C ORREA 7535) evidence of RBC MD REESE P hD - alloantibodies. [id number] d by: Teresa BENSON, PhD - [id number] D ate/Time: 04.01.2022 13:2 2 PM COLORIST DYER Transcribed Chucky e/Time: 04.01.2022 13:2 2 PM CSTElectronical ly Signed By: VICKIE LEIGH MD, PhD - [id number] on 04.01.2022 1 3:22 PM [facility] Antibody Screen [id number] 19:22:14 Test Item Value Reference Range Interpretation Comments TMP Auto Neg At the present ABSC Interp time, patient (test code = plasma shows no ____MAYRIN C ORREA 7535) evidence of RBC MD REESE, P hD - alloantibodies. [id number] d by: Teresa BENSON, PhD - [id number] D ate/Time: 04.01.2022 13:2 2 PM COLORIST DYER Transcribed Chucky e/Time: 04.01.2022 13:2 2 PM CSTElectronical ly Signed By: VICKIE LEIGH MD, PhD - [id number] on 04.01.2022 1 3:22 PM [facility] Interpretation Antibody Screen [id number] 19:22:14 Test Item Value Reference Range Interpretation Comments TMP Auto Neg At the present ABSC Interp time, patient (test code = plasma shows no ____MAYRIN C ORREA 7535) evidence of RBC MD REESE, P hD - alloantibodies. [id number] d by: Teresa BENSON, PhD - [id number] D ate/Time: 04.01.2022 13:2 2 PM COLORIST DYER Transcribed Chucky e/Time: 04.01.2022 13:2 2 PM CSTElectronical ly Signed By: VICKIE LEIGH MD, PhD - [id number] on 04.01.2022 1 3:22 PM [facility]ody [facility] [id number] 19:22:14 Test Item Value Reference Range Interpretation Comments TMP Auto Neg At the present ABSC Interp time, patient (test code = plasma shows no ____MAYRIN C ORREA 7535) evidence of RBC MD REESE, P hD - alloantibodies. [id number] d by: Teresa BENSON, PhD - [id number] D ate/Time: 04.01.2022 13:2 2 PM COLORIST DYER Transcribed Chucky e/Time: 04.01.2022 13:2 2 PM CSTElectronical ly Signed By: VICKIE LEIGH MD, PhD - [id number] on 04.01.2022 1 3:22 PM [facility] Antibody Screen [id number] 19:22:14 Test Item Value Reference Range Interpretation Comments TMP Auto Neg At the present ABSC Interp time, patient (test code = plasma shows no ____MAYRIN C ORREA 7535) evidence of RBC MD REESE, P hD - alloantibodies. [id number] d by: Teresa BENSON, PhD - [id number] D ate/Time: 04.01.2022 13:2 2 PM COLORIST DYER Transcribed Chucky e/Time: 04.01.2022 13:2 2 PM CSTElectronical ly Signed By: VICKIE LEIGH MD, PhD - [id number] on 04.01.2022 1 3:22 PM [facility] Antibody Screen [id number] 19:22:14 Test Item Value Reference Range Interpretation Comments TMP Auto Neg At the present ABSC Interp time, patient (test code = plasma shows no ____MAYRIN C ORREA 7535) evidence of RBC MD REESE, P hD - alloantibodies. [id number] d by: Teresa BENSON, PhD - [id number] D ate/Time: 04.01.2022 13:2 2 PM COLORIST DYER Transcribed Chucky e/Time: 04.01.2022 13:2 2 PM CSTElectronical ly Signed By: VICKIE LEIGH MD, PhD - [id number] on 04.01.2022 1 3:22 PM [facility] Antibody Screen [id number] 19:22:14 Test Item Value Reference Range Interpretation Comments TMP Auto Neg At the present ABSC Interp time, patient (test code = plasma shows no ____MAYRIN C ORREA 7535) evidence of RBC MD REESE, P hD - alloantibodies. [id number] d by: Teresa BENSON, PhD - [id number] D ate/Time: 04.01.2022 13:2 2 PM COLORIST DYER Transcribed Chucky e/Time: 04.01.2022 13:2 2 PM CSTElectronical ly Signed By: VICKIE LEIGH MD, PhD - [id number] on 04.01.2022 1 3:22 PM [facility] Antibody Screen [id number] 19:22:14 Test Item Value Reference Range Interpretation Comments TMP Auto Neg At the present ABSC Interp time, patient (test code = plasma shows no ____MAYRIN C ORREA 7535) evidence of RBC MD REESE P hD - alloantibodies. 19525Rejxyix d by: Teresa BENSON, PhD - [id number] D ate/Time: 04.01.2022 13:2 2 PM COLORIST DYER Transcribed Chucky e/Time: 04.01.2022 13:2 2 PM CSTElectronical ly Signed By: VICKIE LEIGH MD, PhD - [id number] on 04.01.2022 1 3:22 PM [facility] Antibody Screen [id number] 19:22:14 Test Item Value Reference Range Interpretation Comments TMP Auto Neg At the present ABSC Interp time, patient (test code = plasma shows no ____MAYRIN C ORREA 7535) evidence of RBC MD REESE, P hD - alloantibodies. [id number] d by: Teresa BENSON, PhD - [id number] D ate/Time: 04.01.2022 13:2 2 PM COLORIST DYER Transcribed Chucky e/Time: 04.01.2022 13:2 2 PM CSTElectronical ly Signed By: VICKIE LEIGH MD, PhD - [id number] on 04.01.2022 1 3:22 PM [facility] [id number] 17:26:23 Test Item Value Reference Range Interpretation Comments ABSC. (test code = 890-4) Negative ABSC [facility] [id number] 17:26:23 Test Item Value Reference Range Interpretation Comments ABSC. (test code = 890-4) Negative ABSC [facility] [id number] 17:26:23 Test Item Value Reference Range Interpretation Comments ABSC. (test code = 890-4) Negative ABSC [facility] [id number] 17:26:23 Test Item Value Reference Range Interpretation Comments ABSC. (test code = 890-4) Negative ABSC [facility] [id number] 17:26:23 Test Item Value Reference Range Interpretation Comments ABSC. (test code = 890-4) Negative ABSC [facility] [id number] 17:26:23 Test Item Value Reference Range Interpretation Comments ABSC. (test code = 890-4) Negative ABSC [facility] [id number] 17:26:23 Test Item Value Reference Range Interpretation Comments ABSC. (test code = 890-4) Negative ABSC [facility] [id number] 17:26:23 Test Item Value Reference Range Interpretation Comments ABSC. (test code = 890-4) Negative ABSC [facility] [id number] 17:26:23 Test Item Value Reference Range Interpretation Comments ABSC. (test code = 890-4) Negative ABSC [facility] [id number] 17:26:23 Test Item Value Reference Range Interpretation Comments ABSC. (test code = 890-4) Negative [facility]SC [facility] Wkvjqo9990[facility] 17:26:23 Test Item Value Reference Range Interpretation Comments ABSC. (test code = 890-4) Negative ABSC [facility] [id number] 17:26:23 Test Item Value Reference Range Interpretation Comments ABSC. (test code = 890-4) Negative ABSC [facility] [id number] 17:26:23 Test Item Value Reference Range Interpretation Comments ABSC. (test code = 890-4) Negative ABSC [facility] [id number] 17:26:23 Test Item Value Reference Range Interpretation Comments ABSC. (test code = 890-4) Negative ABSC [facility] Zahcrw9404-52-01 17:26:23 Test Item Value Reference Range Interpretation Comments ABSC. (test code = 890-4) Negative ABSC [facility] Fnewzb0483-78-19 17:26:23 Test Item Value Reference Range Interpretation Comments ABSC. (test code = 890-4) Negative ABSC [place] [address]-02-06 17:22:24 Test Item Value Reference Range Interpretation Comments ABORh. (test code = 882-1) A POS [place] [address]-02-06 17:22:24 Test Item Value Reference Range Interpretation Comments ABORh. (test code = 882-1) A POS [place] [address]-02-06 17:22:24 Test Item Value Reference Range Interpretation Comments ABORh. (test code = 882-1) A POS [place] [address]-02-06 17:22:24 Test Item Value Reference Range Interpretation Comments ABORh. (test code = 882-1) A [place] [address]-02-06 17:22:24 Test Item Value Reference Range Interpretation Comments ABORh. (test code = 882-1) A [place] [address]-02-06 17:22:24 Test Item Value Reference Range Interpretation Comments ABORh. (test code = 882-1) A [place] [address]-02-06 17:22:24 Test Item Value Reference Range Interpretation Comments ABORh. (test code = 882-1) A [place] [address]-02-06 17:22:24 Test Item Value Reference Range Interpretation Comments ABORh. (test code = 882-1) A [place] [address]-02-06 17:22:24 Test Item Value Reference Range Interpretation Comments ABORh. (test code = 882-1) A [place] [address]-02-06 17:22:24 Test Item Value Reference Range Interpretation Comments ABORh. (test code = 882-1) A [place] [address]-02-06 17:22:24 Test Item Value Reference Range Interpretation Comments ABORh. (test code = 882-1) A [place] [address]-02-06 17:22:24 Test Item Value Reference Range Interpretation Comments ABORh. (test code = 882-1) A [place] [address]-02-06 17:22:24 Test Item Value Reference Range Interpretation Comments ABORh. (test code = 882-1) A POS [facility] 17:22:24 Test Item Value Reference Range Interpretation Comments ABORh. (test code = 882-1) A POS [facility] 17:22:24 Test Item Value Reference Range Interpretation Comments ABORh. (test code = 882-1) A POS [facility] 17:22:24 Test Item Value Reference Range Interpretation Comments ABORh. (test code = 882-1) A POS [facility] [id number] 17:21:57 Test Item Value Reference Range Interpretation Comments T & S Expiration (test code = 04/04/20225317) [facility] [id number] 17:21:57 Test Item Value Reference Range Interpretation Comments T & S Expiration (test code = 04/04/20225317) [facility] [id number] 17:21:57 Test Item Value Reference Range Interpretation Comments T & S Expiration (test code = 04/04/20225317) [facility] [id number] 17:21:57 Test Item Value Reference Range Interpretation Comments T & S Expiration (test code = 04/04/20225317) [facility] [id number] 17:21:57 Test Item Value Reference Range Interpretation Comments T & S Expiration (test code = 04/04/20225317) [facility] [id number] 17:21:57 Test Item Value Reference Range Interpretation Comments T & S Expiration (test code = 04/04/20225317) [facility] [id number] 17:21:57 Test Item Value Reference Range Interpretation Comments T & S Expiration (test code = 04/04/20225317) [facility] [id number] 17:21:57 Test Item Value Reference Range Interpretation Comments T & S Expiration (test code = 04/04/20225317) [facility] [id number] 17:21:57 Test Item Value Reference Range Interpretation Comments T & S Expiration (test code = 04/04/20225317) [facility] [id number] 17:21:57 Test Item Value Reference Range Interpretation Comments T & S Expiration (test code = 04/04/20225317) [facility] [id number] 17:21:57 Test Item Value Reference Range Interpretation Comments T & S Expiration (test code = 04/04/20225317) [facility] [id number] 17:21:57 Test Item Value Reference Range Interpretation Comments T & S Expiration (test code = 04/04/20225317) [facility] Expiration [id number] 17:21:57 Test Item Value Reference Range Interpretation Comments T & S Expiration (test code = 04/04/20225317) [facility] [id number] 17:21:57 Test Item Value Reference Range Interpretation Comments T & S Expiration (test code = 04/04/20225317) [facility] [id number] 17:21:57 Test Item Value Reference Range Interpretation Comments T & S Expiration (test code = 04/04/20225317) [facility] [id number] 17:21:57 Test Item Value Reference Range Interpretation Comments T & S Expiration (test code = 04/04/20225317) [facility] [id number] 19:32:05 Test Item Value Reference Range Interpretation Comments POC Critical Comment See Note Test pe rformer notified (test code = 8955) Ordering Licensed Provider and /o r designee of POC Glucose Screen critical Results.. [facility] [id number] 19:32:05 Test Item Value Reference Range Interpretation Comments POC Critical Comment See Note Test pe rformer notified (test code = 8955) Ordering Licensed Provider and /o r designee of POC Glucose Screen critical Results.. [facility] [id number] 19:32:05 Test Item Value Reference Range Interpretation Comments POC Critical Comment See Note Test pe rformer notified (test code = 8955) Ordering Licensed Provider and /o r designee of POC Glucose Screen critical Results.. [facility] [id number] 19:32:05 Test Item Value Reference Range Interpretation Comments POC Critical Comment See Note Test pe rformer notified (test code = 8955) Ordering Licensed Provider and /o r designee of POC Glucose Screen critical Results.. [facility] [id number] 19:32:05 Test Item Value Reference Range Interpretation Comments POC Critical Comment See Note Test pe rformer notified (test code = 8955) Ordering Licensed Provider and /o r designee of POC Glucose Screen critical Results.. [facility] [id number] 19:32:05 Test Item Value Reference Range Interpretation Comments POC Critical Comment See Note Test pe rformer notified (test code = 8955) Ordering Licensed Provider and /o r designee of POC Glucose Screen critical Results.. [facility] [id number] 19:32:05 Test Item Value Reference Range Interpretation Comments POC Critical Comment See Note Test pe rformer notified (test code = 8955) Ordering Licensed Provider and /o r designee of POC Glucose Screen critical Results.. [facility] [id number] 19:32:05 Test Item Value Reference Range Interpretation Comments POC Critical Comment See Note Test pe rformer notified (test code = 8955) Ordering Licensed Provider and /o r designee of POC Glucose Screen critical Results.. [facility] Fogrxqgc7513-80-68 19:32:05 Test Item Value Reference Range Interpretation Comments POC Critical Comment See Note Test pe rformer notified (test code = 8955) Ordering Licensed Provider and /o r designee of POC Glucose Screen critical Results.. [facility] Icctytwi6630-97-28 19:32:05 Test Item Value Reference Range Interpretation Comments POC Critical Comment See Note Test pe rformer notified (test code = 8955) Ordering Licensed Provider and /o r designee of POC Glucose Screen critical Results.. [facility] [id number] 19:32:05 Test Item Value Reference Range Interpretation Comments POC Critical Comment See Note Test pe rformer notified (test code = 8955) Ordering Licensed Provider and /o r designee of POC Glucose Screen critical Results.. [facility] [id number] 19:32:05 Test Item Value Reference Range Interpretation Comments POC Critical Comment See Note Test pe rformer notified (test code = 8955) Ordering Licensed Provider and /o r designee of POC Glucose Screen critical Results.. [facility] [id number] 19:32:05 Test Item Value Reference Range Interpretation Comments POC Critical Comment See Note Test pe rformer notified (test code = 8955) Ordering Licensed Provider and /o r designee of POC Glucose Screen critical Results.. [facility] Irwvtbka1285-35-74 19:32:05 Test Item Value Reference Range Interpretation Comments POC Critical Comment See Note Test pe rformer notified (test code = 8955) Ordering Licensed Provider and /o r designee of POC Glucose Screen critical Results.. [facility] Jqydsomp6000-92-12 19:32:05 Test Item Value Reference Range Interpretation Comments POC Critical Comment See Note Test pe rformer notified (test code = 8955) Ordering Licensed Provider and /o r designee of POC Glucose Screen critical Results.. [facility] Knpcxzga9119-00-85 19:32:05 Test Item Value Reference Range Interpretation Comments POC Critical Comment See Note Test pe rformer notified (test code = 8955) Ordering Licensed Provider and /o r designee of POC Glucose Screen critical Results.. [facility] 14:24:17 Test Item Value Reference Range Interpretation Comments aPTT (test code = 27.7 See_Comment [Automate d message] The 72484-3) system which ge nerated this result transmit eugene reference range : 22.8 - 34.2 second(s). The reference range was not used to interpr et this result as nehemiah l/abnormal. [facility]17 Test Item Value Reference Range Interpretation Comments aPTT (test code = 27.7 See_Comment [Automate d message] The 62084-2) system which ge nerated this result transmit eugene reference range : 22.8 - 34.2 second(s). The reference range was not used to interpr et this result as nehemiah l/abnormal. [facility] 14:24:17 Test Item Value Reference Range Interpretation Comments aPTT (test code = 27.7 See_Comment [Automate d message] The 85064-7) system which ge nerated this result transmit eugene reference range : 22.8 - 34.2 second(s). The reference range was not used to interpr et this result as nehemiah l/abnormal. [facility] 14:24:17 Test Item Value Reference Range Interpretation Comments aPTT (test code = 27.7 See_Comment [Automate d message] The 04241-0) system which ge nerated this result transmit eugene reference range : 22.8 - 34.2 second(s). The reference range was not used to interpr et this result as nehemiah l/abnormal. [facility] 14:24:17 Test Item Value Reference Range Interpretation Comments aPTT (test code = 27.7 See_Comment [Automate d message] The 15557-0) system which ge nerated this result transmit eugene reference range : 22.8 - 34.2 second(s). The reference range was not used to interpr et this result as nehemiah l/abnormal. [facility] 14:24:17 Test Item Value Reference Range Interpretation Comments aPTT (test code = 27.7 See_Comment [Automate d message] The 56760-2) system which ge nerated this result transmit eugene reference range : 22.8 - 34.2 second(s). The reference range was not used to interpr et this result as nehemiah l/abnormal. [facility] 14:24:17 Test Item Value Reference Range Interpretation Comments aPTT (test code = 27.7 See_Comment [Automate d message] The 36898-4) system which ge nerated this result transmit eugene reference range : 22.8 - 34.2 second(s). The reference range was not used to interpr et this result as nehemiah l/abnormal. [facility] 14:24:17 Test Item Value Reference Range Interpretation Comments aPTT (test code = 27.7 See_Comment [Automate d message] The 53617-3) system which ge nerated this result transmit eugene reference range : 22.8 - 34.2 second(s). The reference range was not used to interpr et this result as nehemiah l/abnormal. [facility] 14:24:17 Test Item Value Reference Range Interpretation Comments aPTT (test code = 27.7 See_Comment [Automate d message] The 21669-0) system which ge nerated this result transmit eugene reference range : 22.8 - 34.2 second(s). The reference range was not used to interpr et this result as nehemiah l/abnormal. [facility] 14:24:17 Test Item Value Reference Range Interpretation Comments aPTT (test code = 27.7 See_Comment [Automate d message] The 44514-1) system which ge nerated this result transmit eugene reference range : 22.8 - 34.2 second(s). The reference range was not used to interpr et this result as nehemiah l/abnormal. [facility] 14:24:17 Test Item Value Reference Range Interpretation Comments aPTT (test code = 27.7 See_Comment [Automate d message] The 63669-0) system which ge nerated this result transmit eugene reference range : 22.8 - 34.2 second(s). The reference range was not used to interpr et this result as nehemiah l/abnormal. [facility] 14:24:17 Test Item Value Reference Range Interpretation Comments aPTT (test code = 27.7 See_Comment [Automate d message] The 04308-3) system which ge nerated this result transmit eugene reference range : 22.8 - 34.2 second(s). The reference range was not used to interpr et this result as nehemiah l/abnormal. [facility] 14:[facility]17 Test Item Value Reference Range Interpretation Comments aPTT (test code = 27.7 See_Comment [Automate d message] The 30907-0) system which ge nerated this result transmit eugene reference range : 22.8 - 34.2 second(s). The reference range was not used to interpr et this result as nehemiah l/abnormal. [facility] 14:24:17 Test Item Value Reference Range Interpretation Comments aPTT (test code = 27.7 See_Comment [Automate d message] The 38701-3) system which ge nerated this result transmit eugene reference range : 22.8 - 34.2 second(s). The reference range was not used to interpr et this result as nehemiah l/abnormal. [facility] 14:24:17 Test Item Value Reference Range Interpretation Comments aPTT (test code = 27.7 See_Comment [Automate d message] The 33112-8) system which ge nerated this result transmit eugene reference range : 22.8 - 34.2 second(s). The reference range was not used to interpr et this result as nehemiah l/abnormal. [facility] 14:24:17 Test Item Value Reference Range Interpretation Comments aPTT (test code = 27.7 See_Comment [Automate d message] The 69164-6) system which ge nerated this result transmit eugene reference range : 22.8 - 34.2 second(s). The reference range was not used to interpr et this result as nehemiah l/abnormal. [facility], [id number] 16:29:18 Test Item Value Reference Range Interpretation Comments V Lactate (test code = 2519-7) 0.9 mmol/L 0.5-1.6 [facility], Czyftm3276-23-45 16:29:18 Test Item Value Reference Range Interpretation Comments V Lactate (test code = 2519-7) 0.9 mmol/L 0.5-1.6 [facility], [id number] 16:29:18 Test Item Value Reference Range Interpretation Comments V Lactate (test code = 2519-7) 0.9 mmol/L 0.5-1.6 [facility], [id number] 16:29:18 Test Item Value Reference Range Interpretation Comments V Lactate (test code = 2519-7) 0.9 mmol/L 0.5-1.6 [facility], [id number] 16:29:18 Test Item Value Reference Range Interpretation Comments V Lactate (test code = 2519-7) 0.9 mmol/L 0.5-1.6 [facility] Eausva6556-01-05 16:29:18 Test Item Value Reference Range Interpretation Comments V Lactate (test code = 2519-7) 0.9 mmol/L 0.5-1.6 [facility], [id number] 16:29:18 Test Item Value Reference Range Interpretation Comments V Lactate (test code = 2519-7) 0.9 mmol/L 0.5-1.6 [facility], [id number] 16:29:18 Test Item Value Reference Range Interpretation Comments V Lactate (test code = 2519-7) 0.9 mmol/L 0.5-1.6 [facility], [id number] 16:29:18 Test Item Value Reference Range Interpretation Comments V Lactate (test code = 2519-7) 0.9 mmol/L 0.5-1.6 [facility], [id number] 16:29:18 Test Item Value Reference Range Interpretation Comments V Lactate (test code = 2519-7) 0.9 mmol/L 0.5-1.6 [facility], [id number] 16:29:18 Test Item Value Reference Range Interpretation Comments V Lactate (test code = 2519-7) 0.9 mmol/L 0.5-1.6 [facility], Sovmsp6617-09-00 16:29:18 Test Item Value Reference Range Interpretation Comments V Lactate (test code = 2519-7) 0.9 mmol/L 0.5-1.6 [facility], [id number] 16:29:18 Test Item Value Reference Range Interpretation Comments V Lactate (test code = 2519-7) 0.9 mmol/L 0.5-1.6 [facility], [id number] 16:29:18 Test Item Value Reference Range Interpretation Comments V Lactate (test code = 2519-7) 0.9 mmol/L 0.5-1.6 [facility], [id number] 16:29:18 Test Item Value Reference Range Interpretation Comments V Lactate (test code = 2519-7) 0.9 mmol/L 0.5-1.6 [facility], [id number] 16:29:18 Test Item Value Reference Range Interpretation Comments V Lactate (test code = 2519-7) 0.9 mmol/L 0.5-1.6 [facility] 16:28:43 Test Item Value Reference Range Interpretation Comments pH Art (test code = 7.49 7.35-7.45 H Results are 2744-1) corrected for a body temp of 37C. pCO2 Art (test code = 37.7 See_Comment [Auto mated message] 2018-09) The system [employer] generated this result transmit eugene reference range : 32.0 - 45.0 mmH g. The reference r ashley was not used to interpret this result as normal/abnormal . pO2 Art (test code = 96 See_Comment [Autom ated message] 0373-7) The system [employer] generated this result transmit eugene reference range : 83 - 108 mmHg. The reference range was not used to interpret this result as normal/abnormal . HCO3 Art (test code = 28 mmol/L 21-1959-4) Base Excess Art (test 5 mmol/L -2-3 H code = 1925-7) O2 Sat Art (test code = 97 % 95-99 2708-6) Lab Interpretation (test Abnormal code = 97077-5) [facility] 16:28:43 Test Item Value Reference Range Interpretation Comments pH Art (test code = 7.49 7.35-7.45 H Results are 2744-1) corrected for a body temp of 37C. pCO2 Art (test code = 37.7 See_Comment [Auto mated message] 2018-09) The system [employer] generated this result transmit eugene reference range : 32.0 - 45.0 mmH g. The reference r ashley was not used to interpret this result as normal/abnormal . pO2 Art (test code = 96 See_Comment [Autom ated message] 7) The system [employer] generated this result transmit eugene reference range : 83 - 108 mmHg. The reference range was not used to interpret this result as normal/abnormal . HCO3 Art (test code = 28 mmol/L -1959-) Base Excess Art (test 5 mmol/L -2-3 H code = 1925-7) O2 Sat Art (test code = 97 % 95-99 2708-6) Lab Interpretation (test Abnormal code = 52058-3) [facility] 16:28:43 Test Item Value Reference Range Interpretation Comments pH Art (test code = 7.49 7.35-7.45 H Results are 2744-1) corrected for a body temp of 37C. pCO2 Art (test code = 37.7 See_Comment [Auto mated message] 2018-09) The system [employer] generated this result transmit eugene reference range : 32.0 - 45.0 mmH g. The reference r ashley was not used to interpret this result as normal/abnormal . pO2 Art (test code = 96 See_Comment [Autom ated message] 2703-7) The system [employer] generated this result transmit eugene reference range : 83 - 108 mmHg. The reference range was not used to interpret this result as normal/abnormal . HCO3 Art (test code = 28 mmol/L 21-28 1960-4) Base Excess Art (test 5 mmol/L -2-3 H code = 1925-7) O2 Sat Art (test code = 97 % 95-99 2708-6) Lab Interpretation (test Abnormal code = 98020-5) [facility] 16:28:43 Test Item Value Reference Range Interpretation Comments pH Art (test code = 7.49 7.35-7.45 H Results are 2744-1) corrected for a body temp of 37C. pCO2 Art (test code = 37.7 See_Comment [Auto mated message] 2018-09) The system [employer] generated this result transmit eugene reference range : 32.0 - 45.0 mmH g. The reference r ashley was not used to interpret this result as normal/abnormal . pO2 Art (test code = 96 See_Comment [Autom ated message] 2702-08) The system [employer] generated this result transmit eugene reference range : 83 - 108 mmHg. The reference range was not used to interpret this result as normal/abnormal . HCO3 Art (test code = 28 mmol/L 1959-05) Base Excess Art (test 5 mmol/L -2-3 H code = 1925-7) O2 Sat Art (test code = 97 % 95-99 2708-6) Lab Interpretation (test Abnormal code = 90489-7) [facility] 16:28:43 Test Item Value Reference Range Interpretation Comments pH Art (test code = 7.49 7.35-7.45 H Results are 2744-1) corrected for a body temp of 37C. pCO2 Art (test code = 37.7 See_Comment [Auto mated message] 2018-09) The system [employer] generated this result transmit eugene reference range : 32.0 - 45.0 mmH g. The reference r ashley was not used to interpret this result as normal/abnormal . pO2 Art (test code = 96 See_Comment [Autom ated message] 2702-08) The system [employer] generated this result transmit eugene reference range : 83 - 108 mmHg. The reference range was not used to interpret this result as normal/abnormal . HCO3 Art (test code = 28 mmol/L 1959-05) Base Excess Art (test 5 mmol/L -2-3 H code = 1925-7) O2 Sat Art (test code = 97 % 95-99 2708-6) Lab Interpretation (test Abnormal code = 22758-4) [facility] 16:28:43 Test Item Value Reference Range Interpretation Comments pH Art (test code = 7.49 7.35-7.45 H Results are 2744-1) corrected for a body temp of 37C. pCO2 Art (test code = 37.7 See_Comment [Auto mated message] 2018-09) The system [employer] generated this result transmit eugene reference range : 32.0 - 45.0 mmH g. The reference r ashley was not used to interpret this result as normal/abnormal . pO2 Art (test code = 96 See_Comment [Autom ated message] 2702-08) The system [employer] generated this result transmit eugene reference range : 83 - 108 mmHg. The reference range was not used to interpret this result as normal/abnormal . HCO3 Art (test code = 28 mmol/L 1959-05) Base Excess Art (test 5 mmol/L -2-3 H code = 1924-7) O2 Sat Art (test code = 97 % 95-99 2708-6) Lab Interpretation (test Abnormal code = 58446-7) [facility] 16:28:43 Test Item Value Reference Range Interpretation Comments pH Art (test code = 7.49 7.35-7.45 H Results are 2744-1) corrected for a body temp of 37C. pCO2 Art (test code = 37.7 See_Comment [Auto mated message] 2018-09) The system [employer] generated this result transmit eugene reference range : 32.0 - 45.0 mmH g. The reference r ashley was not used to interpret this result as normal/abnormal . pO2 Art (test code = 96 See_Comment [Autom ated message] 2702-08) The system [employer] generated this result transmit eugene reference range : 83 - 108 mmHg. The reference range was not used to interpret this result as normal/abnormal . HCO3 Art (test code = 28 mmol/L 1959-05) Base Excess Art (test 5 mmol/L -2-3 H code = 1925-7) O2 Sat Art (test code = 97 % 95-99 2708-6) Lab Interpretation (test Abnormal code = 66090-0) [facility] [id number] 16:28:43 Test Item Value Reference Range Interpretation Comments pH Art (test code = 7.49 7.35-7.45 H Results are 2744-1) corrected for a body temp of 37C. pCO2 Art (test code = 37.7 See_Comment [Auto mated message] 2018-09) The system [employer] generated this result transmit eugene reference range : 32.0 - 45.0 mmH g. The reference r ashley was not used to interpret this result as normal/abnormal . pO2 Art (test code = 96 See_Comment [Autom ated message] 2702-08) The system [employer] generated this result transmit eugene reference range : 83 - 108 mmHg. The reference range was not used to interpret this result as normal/abnormal . HCO3 Art (test code = 28 mmol/L 1959-05) Base Excess Art (test 5 mmol/L -2-3 H code = 1924-7) O2 Sat Art (test code = 97 % 95-99 2708-6) Lab Interpretation (test Abnormal code = 72031-8) [facility] Test Item Value Reference Range Interpretation Comments pH Art (test code = 7.49 7.35-7.45 H Results are 2744-1) corrected for a body temp of 37C. pCO2 Art (test code = 37.7 See_Comment [Auto mated message] 2018-09) The system [employer] generated this result transmit eugene reference range : 32.0 - 45.0 mmH g. The reference r ashley was not used to interpret this result as normal/abnormal . pO2 Art (test code = 96 See_Comment [Autom ated message] 2702-08) The system [employer] generated this result transmit eugene reference range : 83 - 108 mmHg. The reference range was not used to interpret this result as normal/abnormal . HCO3 Art (test code = 28 mmol/L 1959-05) Base Excess Art (test 5 mmol/L -2-3 H code = 1924-7) O2 Sat Art (test code = 97 % 95-99 2708-6) Lab Interpretation (test Abnormal code = 80878-8) [facility] [id number] 16:28:43 Test Item Value Reference Range Interpretation Comments pH Art (test code = 7.49 7.35-7.45 H Results are 2744-1) corrected for a body temp of 37C. pCO2 Art (test code = 37.7 See_Comment [Auto mated message] 2018-09) The system [employer] generated this result transmit eugene reference range : 32.0 - 45.0 mmH g. The reference r ashley was not used to interpret this result as normal/abnormal . pO2 Art (test code = 96 See_Comment [Autom ated message] 37) The system [employer] generated this result transmit eugene reference range : 83 - 108 mmHg. The reference range was not used to interpret this result as normal/abnormal . HCO3 Art (test code = 28 mmol/L 1959-) Base Excess Art (test 5 mmol/L -2-3 H code = 1924-7) O2 Sat Art (test code = 97 % 95-99 2708-6) Lab Interpretation (test Abnormal code = 17283-7) [facility] [id number] 16:28:43 Test Item Value Reference Range Interpretation Comments pH Art (test code = 7.49 7.35-7.45 H Results are 2744-1) corrected for a body temp of 37C. pCO2 Art (test code = 37.7 See_Comment [Auto mated message] 2018-09) The system [employer] generated this result transmit eugene reference range : 32.0 - 45.0 mmH g. The reference r ashley was not used to interpret this result as normal/abnormal . pO2 Art (test code = 96 See_Comment [Autom ated message] 27037) The system [employer] generated this result transmit eugene reference range : 83 - 108 mmHg. The reference range was not used to interpret this result as normal/abnormal . HCO3 Art (test code = 28 mmol/L 1959-) Base Excess Art (test 5 mmol/L -2-3 H code = 1925-7) O2 Sat Art (test code = 97 % 95-99 2708-6) Lab Interpretation (test Abnormal code = 45342-6) [facility] Test Item Value Reference Range Interpretation Comments pH Art (test code = 7.49 7.35-7.45 H Results are 2744-1) corrected for a body temp of 37C. pCO2 Art (test code = 37.7 See_Comment [Auto mated message] 2018-09) The system [employer] generated this result transmit eugene reference range : 32.0 - 45.0 mmH g. The reference r ashley was not used to interpret this result as normal/abnormal . pO2 Art (test code = 96 See_Comment [Autom ated message] 64137) The system [employer] generated this result transmit eugene reference range : 83 - 108 mmHg. The reference range was not used to interpret this result as normal/abnormal . HCO3 Art (test code = 28 mmol/L 1959-05) Base Excess Art (test 5 mmol/L -2-3 H code = 1925-7) O2 Sat Art (test code = 97 % 95-99 2708-6) Lab Interpretation (test Abnormal code = 08909-0) [facility] Test Item Value Reference Range Interpretation Comments pH Art (test code = 7.49 7.35-7.45 H Results are 2744-1) corrected for a body temp of 37C. pCO2 Art (test code = 37.7 See_Comment [Auto mated message] 2018-09) The system [employer] generated this result transmit eugene reference range : 32.0 - 45.0 mmH g. The reference r ashley was not used to interpret this result as normal/abnormal . pO2 Art (test code = 96 See_Comment [Autom ated message] 3917) The system [employer] generated this result transmit eugene reference range : 83 - 108 mmHg. The reference range was not used to interpret this result as normal/abnormal . HCO3 Art (test code = 28 mmol/L 1959-05) Base Excess Art (test 5 mmol/L -2-3 H code = 1925-7) O2 Sat Art (test code = 97 % 95-99 2708-6) Lab Interpretation (test Abnormal code = 83647-1) [facility] 16:[facility] Test Item Value Reference Range Interpretation Comments pH Art (test code = 7.49 7.35-7.45 H Results are 2744-1) corrected for a body temp of 37C. pCO2 Art (test code = 37.7 See_Comment [Auto mated message] 2018-09) The system [employer] generated this result transmit eugene reference range : 32.0 - 45.0 mmH g. The reference r ashley was not used to interpret this result as normal/abnormal . pO2 Art (test code = 96 See_Comment [Autom ated message] 3007) The system [employer] generated this result transmit eugene reference range : 83 - 108 mmHg. The reference range was not used to interpret this result as normal/abnormal . HCO3 Art (test code = 28 mmol/L 1959-05) Base Excess Art (test 5 mmol/L -2-3 H code = 1925-7) O2 Sat Art (test code = 97 % 95-99 2708-6) Lab Interpretation (test Abnormal code = 03367-3) [facility] 16[facility] Test Item Value Reference Range Interpretation Comments pH Art (test code = 7.49 7.35-7.45 H Results are 2744-1) corrected for a body temp of 37C. pCO2 Art (test code = 37.7 See_Comment [Auto mated message] 2018-09) The system [employer] generated this result transmit eugene reference range : 32.0 - 45.0 mmH g. The reference r ashley was not used to interpret this result as normal/abnormal . pO2 Art (test code = 96 See_Comment [Autom ated message] 9327) The system [employer] generated this result transmit eugene reference range : 83 - 108 mmHg. The reference range was not used to interpret this result as normal/abnormal . HCO3 Art (test code = 28 mmol/L 1959-05) Base Excess Art (test 5 mmol/L -2-3 H code = 1925-7) O2 Sat Art (test code = 97 % 95-99 2708-6) Lab Interpretation (test Abnormal code = 31801-9) [facility] 16[facility]28:[facility] Test Item Value Reference Range Interpretation Comments pH Art (test code = 7.49 7.35-7.45 H Results are 2744-1) corrected for a body temp of 37C. pCO2 Art (test code = 37.7 See_Comment [Auto mated message] 2018-09) The system [employer] generated this result transmit eugene reference range : 32.0 - 45.0 mmH g. The reference r ashley was not used to interpret this result as normal/abnormal . pO2 Art (test code = 96 See_Comment [Autom ated message] 2702-08) The system [employer] generated this result transmit eugene reference range : 83 - 108 mmHg. The reference range was not used to interpret this result as normal/abnormal . HCO3 Art (test code = 28 mmol/L -28 1959-) Base Excess Art (test 5 mmol/L -2-3 H code = 1925-7) O2 Sat Art (test code = 97 % 95-99 2707-6) Lab Interpretation (test Abnormal code = 84578-6) [facility] Screening Ipfnvgf2604-77-12 01:26:33 Test Item Value Reference Range Interpretation Comments Final Report (test No Methicillin resistant code = 8488) Staphylococcus aureus isolated. Path Review (test The results have been code = 8492) reviewed and electronically signed by Pathologist:NORMAN CAMARILLO MD #[id number] [facility] Screening Yvluork2755-79-59 01:26:33 Test Item Value Reference Range Interpretation Comments Final Report (test No Methicillin resistant code = 8488) Staphylococcus aureus isolated. Path Review (test The results have been code = 8492) reviewed and electronically signed by Pathologist:NORMAN CAMARILLO MD #[id number] [facility] Screening Dgvumow5495-61-02 01:26:33 Test Item Value Reference Range Interpretation Comments Final Report (test No Methicillin resistant code = 8488) Staphylococcus aureus isolated. Path Review (test The results have been code = 8492) reviewed and electronically signed by Pathologist:NORMAN CAMARILLO MD #[id number] [facility] Screening Letewzh8962-59-88 01:26:33 Test Item Value Reference Range Interpretation Comments Final Report (test No Methicillin resistant code = 8488) Staphylococcus aureus isolated. Path Review (test The results have been code = 8492) reviewed and electronically signed by Pathologist:NORMAN CAMARILLO MD #[id number] [facility] Screening Fxhujvb3692-12-00 01:26:33 Test Item Value Reference Range Interpretation Comments Final Report (test No Methicillin resistant code = 8488) Staphylococcus aureus isolated. Path Review (test The results have been code = 8492) reviewed and electronically signed by Pathologist:NORMAN CAMARILLO MD #[id number] [facility] Screening Qwajqaj7793-71-99 01:26:33 Test Item Value Reference Range Interpretation Comments Final Report (test No Methicillin resistant code = 8488) Staphylococcus aureus isolated. Path Review (test The results have been code = 8492) reviewed and electronically signed by Pathologist:NORMAN CAMARILLO MD #[id number] [facility] Screening [id number] 01:26:33 Test Item Value Reference Range Interpretation Comments Final Report (test No Methicillin resistant code = 8488) Staphylococcus aureus isolated. Path Review (test The results have been code = 8492) reviewed and electronically signed by Pathologist:NORMAN CAMARILLO MD #[id number] [facility] Screening Przbxss9202-74-43 01:26:33 Test Item Value Reference Range Interpretation Comments Final Report (test No Methicillin resistant code = 8488) Staphylococcus aureus isolated. Path Review (test The results have been code = 8492) reviewed and electronically signed by Pathologist:NORMAN CAMARILLO MD #[id number] [facility] Screening Adnsrtx7067-93-30 01:26:33 Test Item Value Reference Range Interpretation Comments Final Report (test No Methicillin resistant code = 8488) Staphylococcus aureus isolated. Path Review (test The results have been code = 8492) reviewed and electronically signed by Pathologist:NORMAN CAMARILLO MD #[id number] [facility] Screening Qiarmki2595-91-17 01:26:33 Test Item Value Reference Range Interpretation Comments Final Report (test No Methicillin resistant code = 8488) Staphylococcus aureus isolated. Path Review (test The results have been code = 8492) reviewed and electronically signed by Pathologist:NOR[facility][id number] [facility] [id number] 01:26:33 Test Item Value Reference Range Interpretation Comments Final Report (test No Methicillin resistant code = 8488) Staphylococcus aureus isolated. Path Review (test The results have been code = 8492) reviewed and electronically signed by Pathologist:NORMAN CAMARILLO MD #[id number] [facility] Screening Asanfbz3487-56-25 01:26:33 Test Item Value Reference Range Interpretation Comments Final Report (test No Methicillin resistant code = 8488) Staphylococcus aureus isolated. Path Review (test The results have been code = 8492) reviewed and electronically signed by Pathologist:NORMAN CAMARILLO MD #[id number] [facility] Screening Woerhgb4798-63-57 01:26:33 Test Item Value Reference Range Interpretation Comments Final Report (test No Methicillin resistant code = 8488) Staphylococcus aureus isolated. Path Review (test The results have been code = 8492) reviewed and electronically signed by Pathologist:NORMAN CAMARILLO MD #[id number] [facility] Screening Bhwylrr2857-28-90 01:26:33 Test Item Value Reference Range Interpretation Comments Final Report (test No Methicillin resistant code = 8488) Staphylococcus aureus isolated. Path Review (test The results have been code = 8492) reviewed and electronically signed by Pathologist:NORMAN CAMARILLO MD #[id number] [facility] Screening Oczqfdx0499-51-27 01:26:33 Test Item Value Reference Range Interpretation Comments Final Report (test No Methicillin resistant code = 8488) Staphylococcus aureus isolated. Path Review (test The results have been code = 8492) reviewed and electronically signed by Pathologist:NORMAN CAMARILLO [facility][id number] [facility] Jikvqry7598-30-60 01:26:33 Test Item Value Reference Range Interpretation Comments Final Report (test No Methicillin resistant code = 8488) Staphylococcus aureus isolated. Path Review (test The results have been code = 8492) reviewed and electronically signed by Pathologist:NORMAN CAMARILLO MD #[id number] [facility] Plztt9437-06-35 01:26:32 Test Item Value Reference Range Interpretation Comments Final Report (test No growth code = 8488) Path Review (test The results have been code = 8492) reviewed and electronically signed by Pathologist:NORMAN CAMARILLO MD #[id number] Gram Stain Report Few WBC's seenNo organisms (test code = seen. 32090-8) [facility] Respiratory Culture w/Gram Ygots5334-84-87 01:26:32 Test Item Value Reference Range Interpretation Comments Final Report (test No growth code = 8488) Path Review (test The results have been code = 8492) reviewed and electronically signed by Pathologist:NORMAN CAMARILLO MD #[id number] Gram Stain Report Few WBC's seenNo organisms (test code = seen. 71673-4) [facility] Respiratory Culture w/Gram Iqezu0578-04-86 01:26:32 Test Item Value Reference Range Interpretation Comments Final Report (test No growth code = 8488) Path Review (test The results have been code = 8492) reviewed and electronically signed by Pathologist:NORMAN CAMARILLO MD #[id number] Gram Stain Report Few WBC's seenNo organisms (test code = seen. 99950-4) [facility] Respiratory Culture w/Gram Ripnq6757-35-87 01:26:32 Test Item Value Reference Range Interpretation Comments Final Report (test No growth code = 8488) Path Review (test The results have been code = 8492) reviewed and electronically signed by Pathologist:NORMAN CAMARILLO MD #[id number] Gram Stain Report Few WBC's seenNo organisms (test code = seen. 73579-2) [facility] Respiratory Culture w/Gram Ctlkb7075-17-44 01:26:32 Test Item Value Reference Range Interpretation Comments Final Report (test No growth code = 8488) Path Review (test The results have been code = 8492) reviewed and electronically signed by Pathologist:NORMAN CAMARILLO MD #[id number] Gram Stain Report Few WBC's seenNo organisms (test code = seen. 10411-1) [facility] Respiratory Culture w/Gram Ntpjg7467-60-75 01:26:32 Test Item Value Reference Range Interpretation Comments Final Report (test No growth code = 8488) Path Review (test The results have been code = 8492) reviewed and electronically signed by Pathologist:NORMAN CAMARILLO MD #[id number] Gram Stain Report Few WBC's seenNo organisms (test code = seen. 57424-7) [facility] Respiratory Culture w/Gram Cynsb6208-85-46 01:26:32 Test Item Value Reference Range Interpretation Comments Final Report (test No growth code = 8488) Path Review (test The results have been code = 8492) reviewed and electronically signed by Pathologist:NORMAN CAMARILLO MD #[id number] Gram Stain Report Few WBC's seenNo organisms (test code = seen. 66728-5) [facility] Respiratory Culture w/Gram Knwjy6810-31-37 01:26:32 Test Item Value Reference Range Interpretation Comments Final Report (test No growth code = 8488) Path Review (test The results have been code = 8492) reviewed and electronically signed by Pathologist:NORMAN CAMARILLO MD #[id number] Gram Stain Report Few WBC's seenNo organisms (test code = seen. 51113-3) [facility] Respiratory Culture w/Gram Glpzt9530-39-68 01:26:32 Test Item Value Reference Range Interpretation Comments Final Report (test No growth code = 8488) Path Review (test The results have been code = 8492) reviewed and electronically signed by Pathologist:NORMAN CAMARILLO MD #[id number] Gram Stain Report Few WBC's seenNo organisms (test code = seen. 56762-1) [facility] Respiratory Culture w/Gram [id number] 01:26:32 Test Item Value Reference Range Interpretation Comments Final Report (test No growth code = 8488) Path Review (test The results have been code = 8492) reviewed and electronically signed by Pathologist:NORMAN CAMARILLO MD #[id number] Gram Stain Report Few WBC's seenNo organisms (test code = seen. 69076-3) [facility] Respiratory Culture w/Gram [id number] 01:26:32 Test Item Value Reference Range Interpretation Comments Final Report (test No growth code = 8488) Path Review (test The results have been code = 8492) reviewed and electronically signed by Pathologist:NORMAN CAMARILLO MD #[id number] Gram Stain Report Few WBC's seenNo organisms (test code = seen. 00524-9) [facility] Respiratory Culture w/Gram Qkilw3271-69-97 01:26:32 Test Item Value Reference Range Interpretation Comments Final Report (test No growth code = 8488) Path Review (test The results have been code = 8492) reviewed and electronically signed by Pathologist:NORMAN CAMARILLO MD #[id number] Gram Stain Report Few WBC's seenNo organisms (test code = seen. 49008-3) [facility] Respiratory Culture w/Gram Stveg9367-31-14 01:26:32 Test Item Value Reference Range Interpretation Comments Final Report (test No growth code = 8488) Path Review (test The results have been code = 8492) reviewed and electronically signed by Pathologist:NORMAN CAMARILLO MD #[id number] Gram Stain Report Few WBC's seenNo organisms (test code = seen. 27298-6) [facility] Respiratory Culture w/Gram [id number] 01:26:32 Test Item Value Reference Range Interpretation Comments Final Report (test No growth code = 8488) Path Review (test The results have been code = 8492) reviewed and electronically signed by Pathologist:NORMAN CAMARILLO MD #[id number] Gram Stain Report Few WBC's seenNo organisms (test code = seen. 98210-3) [facility] Respiratory Culture w/Gram [id number] 01:26:32 Test Item Value Reference Range Interpretation Comments Final Report (test No growth code = 8488) Path Review (test The results have been code = 8492) reviewed and electronically signed by Pathologist:NORMAN CAMARILLO MD #[id number] Gram Stain Report Few WBC's seenNo organisms (test code = seen. 53833-0) [facility] Respiratory Culture w/Gram Gxmhc2905-21-00 01:26:32 Test Item Value Reference Range Interpretation Comments Final Report (test No growth code = 8488) Path Review (test The results have been code = 8492) reviewed and electronically signed by Pathologist:NORMAN CAMARILLO MD #[id number] Gram Stain Report Few WBC's seenNo organisms (test code = seen. 40773-4) [facility] dose due at 1230 [...] code previous dos e is not = 75597-9) availablefor th is sample. The chucky e reported is the samplecollectio n date. Vanco Tr Dose 03/28/2022 Level, date, a nd time of Date (test code previous dos e is not = 43251-2) availablefor th is sample. The chucky e reported is the samplecollectio n date. CHANDRAKANT (test code Draw before = CHANDRAKANT) dose due at 1230 today. [facility] before dose due at 1230 [...] code previous dos e is not = 89490-4) availablefor th is sample. The chucky e reported is the samplecollectio n date. Vanco Tr Dose 03/28/2022 Level, date, a nd time of Date (test code previous dos e is not = 05486-3) availablefor th is sample. The chucky e reported is the samplecollectio n date. CHANDRAKANT (test code Draw before = CHANDRAKANT) dose due at 1230 today. [facility] before dose due at 1230 [...] code previous dos e is not = 57688-8) availablefor is sample. The chucky e reported is the samplecollectio n date. Vanco Tr Dose 03/28/2022 Level, date, a nd time of Date (test code previous dos e is not = 94064-3) availablefor is sample. The chucky e reported is the samplecollectio n date. CHANDRAKANT (test code Draw before = CHANDRAKANT) dose due at 1230 today. [facility] before dose due at 1230 [...] code previous dos e is not = 84202-9) availablefor is sample. The chucky e reported is the samplecollectio n date. Vanco Tr Dose 03/28/2022 Level, date, a nd time of Date (test code previous dos e is not = 93930-4) availablefor is sample. The chucky e reported is the samplecollectio n date. CHANDRAKANT (test code Draw before = CHANDRAKANT) dose due at 1230 today. [facility] Draw before dose due at 1230 [...] code previous dos e is not = 42440-4) availablefor th is sample. The chucky e reported is the samplecollectio n date. Vanco Tr Dose 03/28/2022 Level, date, a nd time of Date (test code previous dos e is not = 92888-1) availablefor is sample. The chucky e reported is the samplecollectio n date. CHANDRAKANT (test code Draw before = CHANDRAKANT) dose due at 1230 today. [facility] before dose due at 1230 [...] code previous dos e is not = 70155-1) availablefor is sample. The chucky e reported is the samplecollectio n date. Vanco Tr Dose 03/28/2022 Level, date, a nd time of Date (test code previous dos e is not = 73677-0) availablefor is sample. The chucky e reported is the samplecollectio n date. CHANDRAKANT (test code Draw before = CHANDRAKANT) dose due at 1230 today. [facility] Draw before dose due at 1230 [...] code previous dos e is not = 27961-7) availablefor [facility] sample. The chucky e reported is the samplecollectio n date. Vanco Tr Dose 03/28/2022 Level, date, a nd time of Date (test code previous dos e is not = 34863-6) availablefor is sample. The chucky e reported is the samplecollectio n date. CHANDRAKANT (test code Draw before = CHANDRAKANT) dose due at 1230 today. [facility] Draw before dose due at 1230 [...] code previous dos e is not = 05304-1) availablefor [facility] sample. The chucky e reported is the samplecollectio n date. Vanco Tr Dose 03/28/2022 Level, date, a nd time of Date (test code previous dos e is not = 03312-3) availablefor [facility] sample. The chucky e reported is the samplecollectio n date. CHANDRAKANT (test code Draw before = CHANDRAKANT) dose due at 1230 today. [facility] Draw before dose due at 1230 [...] code previous dos e is not = 49037-0) availablefor is sample. The chucky e reported is the samplecollectio n date. Vanco Tr Dose 03/28/2022 Level, date, a nd time of Date (test code previous dos e is not = 42721-4) availablefor is sample. The chucky e reported is the samplecollectio n date. CHANDRAKANT (test code Draw before = CHANDRAKANT) dose due at 1230 today. [facility] before dose due at 1230 [...] code previous dos e is not = 66740-0) availablefor is sample. The chucky e reported is the samplecollectio n date. Vanco Tr Dose 03/28/2022 Level, date, a nd time of Date (test code previous dos e is not = 28358-1) availablefor is sample. The chucky e reported is the samplecollectio n date. CHANDRAKANT (test code Draw before = CHANDRAKANT) dose due at 1230 today. [facility] before dose due at 1230 [...] code previous dos e is not = 80659-5) availablefor is sample. The chucky e reported is the samplecollectio n date. Vanco Tr Dose 03/28/2022 Level, date, a nd time of Date (test code previous dos e is not = 40066-8) availablefor th is sample. The chucky e reported is the samplecollectio n date. CHANDRAKANT (test code Draw before = CHANDRAKANT) dose due at 1230 today. [facility] before dose due at 1230 [...] code previous dos e is not = 17321-6) availablefor is sample. The chucky e reported is the samplecollectio n date. Vanco Tr Dose 03/28/2022 Level, date, a nd time of Date (test code previous dos e is not = 07526-2) availablefor is sample. The chucky e reported is the samplecollectio n date. CHANDRAKANT (test code Draw before = CHANDRAKANT) dose due at 1230 today. [facility] before dose due at 1230 [...] code previous dos e is not = 05651-3) availablefor is sample. The chucky e reported is the samplecollectio n date. Vanco Tr Dose 03/28/2022 Level, date, a nd time of Date (test code previous dos e is not = 36489-0) availablefor is sample. The chucky e reported is the samplecollectio n date. CHANDRAKANT (test code Draw before = CHANDRAKANT) dose due at 1230 today. [facility] before dose due at 1230 [...] code previous dos e is not = 91516-3) availablefor th is sample. The chucky e reported is the samplecollectio n date. Vanco Tr Dose 03/28/2022 Level, date, a nd time of Date (test code previous dos e is not = 83015-9) availablefor is sample. The chucky e reported is the samplecollectio n date. CHANDRKAANT (test code Draw before = CHANDRAKANT) dose due at 1230 today. [facility] before dose due at 1230 [...] code previous dos e is not = 93130-8) availablefor th is sample. The chucky e reported is the samplecollectio n date. Vanco Tr Dose 03/28/2022 Level, date, a nd time of Date (test code previous dos e is not = 41699-1) availablefor is sample. The chucky e reported is the samplecollectio n date. CHANDRAKANT (test code Draw before = CHANDRAKANT) dose due at 1230 today. [facility] before dose due at 1230 [...] code previous dos e is not = 52027-2) availablefor th is sample. The chucky e reported is the samplecollectio n date. Vanco Tr Dose 03/28/2022 Level, date, a nd time of Date (test code previous dos e is not = 92392-0) availablefor th is sample. The chucky e reported is the samplecollectio n date. CHANDRAKANT (test code Draw before = CHANDRAKANT) dose due at 1230 today. [facility] [place] - Follow [id number] 15:54:59 Test Item Value Reference Range Interpretation Comments EF (test code = 39 [id number]) PXN (test code Jeni Cardozo MD - [...] ml/m2 RWT: 0.24 cmESV (MOD-bp) Index: 41.2 ml/n6Dxbqwai Measurements TR max jose alfredo: 233.3 cm/secTR max P.8 mmHg [facility] [place] [place] - Follow [id number] 15:54:59 Test Item Value Reference Range Interpretation Comments EF (test code = 39 [id number]) PXN (test code Jeni Cardozo MD - [...] ml/m2 RWT: 0.24 cmESV (MOD-bp) Index: 41.2 ml/w6Onxjcsk Measurements TR max jose alfredo: 233.3 cm/secTR max P.8 mmHg [facility] HEp-2 Substrate, [id number] 03:00:35 Test Item Value Reference Range Interpretation Comments ED HEp-2 See Footnote See_Comment RESULT: <1:80 ( Negative) Substrate (test -------ADDITI code = 48142-4) ONAL INFORMATION---- -----Method: Immunofluoresce nce using HEp-2 cellular substrate. Test Performed by:[facility] [place], [place] [address]Bzy Direct or: Nito jose M.D. Ph.D.; CLIA# 24 [id number] [Automated mess age] The system which ge nerated this result tra nsmitted reference range : <1:80 (Negative). The reference range was not u sed to interpret this result as normal/abnormal . [facility] HEp-2 Substrate, [id number] 03:00:35 Test Item Value Reference Range Interpretation Comments ED HEp-2 See Footnote See_Comment RESULT: <1:80 ( Negative) Substrate (test -------ADDITI code = 43200-3) ONAL INFORMATION---- -----Method: Immunofluoresce nce using HEp-2 cellular substrate. Test Performed by:[facility] [place] [id number] [place], [place] [address]Rjy Direct or: Nito jose M.D. Ph.D.; CLIA# 24 [id number] [Automated mess age] The system which ge nerated this result tra nsmitted reference range : <1:80 (Negative). The reference range was not u sed to interpret this result as normal/abnormal . [facility] (ED) HEp-2 Substrate, [id number] 03:00:35 Test Item Value Reference Range Interpretation Comments ED HEp-2 See Footnote See_Comment RESULT: <1:80 ( Negative) Substrate (test -------ADDITI code = 72873-2) ONAL INFORMATION---- -----Method: Immunofluoresce nce using HEp-2 cellular substrate. Test Performed by:[facility] [place] [id number] [place], [place] [address]Gtv Direct or: Nito jose M.D. Ph.D.; CLIA# 24 [id number] [[employer] The system which ge nerated this result tra nsmitted reference range : <1:80 (Negative). The reference range was not u sed to interpret this result as normal/abnormal . [facility] (ED) HEp-2 Substrate, [id number] 03:00:35 Test Item Value Reference Range Interpretation Comments ED HEp-2 See Footnote See_Comment RESULT: <1:80 ( Negative) Substrate (test -------ADDITI code = 87585-1) ONAL INFORMATION---- -----Method: Immunofluoresce nce using HEp-2 cellular substrate. Test Performed by:[facility] [place] [id number] [place], [place] [address]Yxf Direct or: Nito jose M.D. Ph.D.; CLIA# 24 [id number] [Automated Nuvosun age] The system which ge nerated this result tra nsmitted reference range : <1:80 (Negative). The reference range was not u sed to interpret this result as normal/abnormal . [facility]ED) HEp-2 Substrate, [id number] 03:00:35 Test Item Value Reference Range Interpretation Comments ED HEp-2 See Footnote See_Comment RESULT: <1:80 ( Negative) Substrate (test -------ADDITI code = 79595-3) ONAL INFORMATION---- -----Method: Immunofluoresce nce using HEp-2 cellular substrate. Test Performed by:[facility] [place] [id number] [address] [place], [place] [address]Qrl Direct or: Nito jose M.D. Ph.D.; CLIA# 24 [id number] [Orbster age] The system which ge nerated this result tra nsmitted reference range : <1:80 (Negative). The reference range was not u sed to interpret this result as normal/abnormal . [facility]) HEp-2 Substrate, [id number] 03:00:35 Test Item Value Reference Range Interpretation Comments ED HEp-2 See Footnote See_Comment RESULT: <1:80 ( Negative) Substrate (test -------ADDITI code = 17056-7) ONAL INFORMATION---- -----Method: Immunofluoresce nce using HEp-2 cellular substrate. Test Performed by:[id number] [employer] [place], [place] [address]Vec Direct or: Nito jose M.D. Ph.D.; CLIA# 24 [id number] [Automated mess age] The system which ge nerated this result tra nsmitted reference range : <1:80 (Negative). The reference range was not u sed to interpret this result as normal/abnormal . [facility] (ED) HEp-2 Substrate, [id number] 03:00:35 Test Item Value Reference Range Interpretation Comments ED HEp-2 See Footnote See_Comment RESULT: <1:80 ( Negative) Substrate (test -------ADDITI code = 78762-0) ONAL INFORMATION---- -----Method: Immunofluoresce nce using HEp-2 cellular substrate. Test Performed by:[facility] [place] [id number] [address] [place], [place] [address]Odd Direct or: Nito jose M.D. Ph.D.; CLIA# 24 [id number] [Automated Nuvosun age] The system which ge nerated this result tra nsmitted reference range : <1:80 (Negative). The reference range was not u sed to interpret this result as normal/abnormal . [facility] (ED) HEp-2 Substrate, [id number] 03:00:35 Test Item Value Reference Range Interpretation Comments ED HEp-2 See Footnote See_Comment RESULT: <1:80 ( Negative) Substrate (test -------ADDITI code = 84501-9) ONAL INFORMATION---- -----Method: Immunofluoresce nce using HEp-2 cellular substrate. Test Performed by:[facility] [place] [id number] [address] [place], [place] [address]Gko Direct or: Nito jose M.D. Ph.D.; CLIA# 24 [id number] [Automated Nuvosun age] The system which ge nerated this result tra nsmitted reference range : <1:80 (Negative). The reference range was not u sed to interpret this result as normal/abnormal . [facility]ED) HEp-2 Substrate, [id number] 03:00:35 Test Item Value Reference Range Interpretation Comments ED HEp-2 See Footnote See_Comment RESULT: <1:80 ( Negative) Substrate (test -------ADDITI code = 58989-2) ONAL INFORMATION---- -----Method: Immunofluoresce nce using HEp-2 cellular substrate. Test Performed by:[facility] [place] [id number] [address] [place], [place] [address]Kpz Direct or: Nito jose M.D. Ph.D.; CLIA# 24 [id number] [Automated mess age] The system which ge nerated this result tra nsmitted reference range : <1:80 (Negative). The reference range was not u sed to interpret this result as normal/abnormal . [facility]) HEp-2 Substrate, [id number] 03:00:35 Test Item Value Reference Range Interpretation Comments ED HEp-2 See Footnote See_Comment RESULT: <1:80 ( Negative) Substrate (test -------ADDITI code = 70153-3) ONAL INFORMATION---- -----Method: Immunofluoresce nce using HEp-2 cellular substrate. Test Performed by:[facility] [place] [id number] [employer] [place], [place] [address]Czb Direct or: Nito jose M.D. Ph.D.; CLIA# 24 [id number] [Automated mess age] The system which ge nerated this result tra nsmitted reference range : <1:80 (Negative). The reference range was not u sed to interpret this result as normal/abnormal . [facility] (ED) HEp-2 Substrate, [id number] 03:00:35 Test Item Value Reference Range Interpretation Comments ED HEp-2 See Footnote See_Comment RESULT: <1:80 ( Negative) Substrate (test -------ADDITI code = 82267-5) ONAL INFORMATION---- -----Method: Immunofluoresce nce using HEp-2 cellular substrate. Test Performed by:[facility] [place] [id number] [address] [place], [place] [address]Vxq Direct or: Nito jose M.D. Ph.D.; CLIA# 24 [id number] [Automated mess age] The system which ge nerated this result tra nsmitted reference range : <1:80 (Negative). The reference range was not u sed to interpret this result as normal/abnormal . [facility]ED) HEp-2 Substrate, [id number] 03:00:35 Test Item Value Reference Range Interpretation Comments ED HEp-2 See Footnote See_Comment RESULT: <1:80 ( Negative) Substrate (test -------ADDITI code = 39016-7) ONAL INFORMATION---- -----Method: Immunofluoresce nce using HEp-2 cellular substrate. Test Performed by:[facility] [id number] [address] [place], [place] [address]Ohu Direct or: Nito jose M.D. Ph.D.; CLIA# 24 [id number] [[employer] The system which ge nerated this result tra nsmitted reference range : <1:80 (Negative). The reference range was not u sed to interpret this result as normal/abnormal . [facility]) HEp-2 Substrate, [id number] 03:00:35 Test Item Value Reference Range Interpretation Comments ED HEp-2 See Footnote See_Comment RESULT: <1:80 ( Negative) Substrate (test -------ADDITI code = 74751-6) ONAL INFORMATION---- -----Method: Immunofluoresce nce using HEp-2 cellular substrate. Test Performed by:[facility] [place] [id number] [place], [place] [address]Hex Direct or: Nito jose M.D. Ph.D.; CLIA# 24 [id number] [Automated Nuvosun age] The system which ge nerated this result tra nsmitted reference range : <1:80 (Negative). The reference range was not u sed to interpret this result as normal/abnormal . [facility]) HEp-2 Substrate, [id number] 03:00:35 Test Item Value Reference Range Interpretation Comments ED HEp-2 See Footnote See_Comment RESULT: <1:80 ( Negative) Substrate (test -------ADDITI code = 28518-2) ONAL INFORMATION---- -----Method: Immunofluoresce nce using HEp-2 cellular substrate. Test Performed by:[facility] [place] [id number] [address] [place], [place] [address]Fuy Direct or: Nito jose M.D. Ph.D.; CLIA# 24 [id number] [Orbster age] The system which ge nerated this result tra nsmitted reference range : <1:80 (Negative). The reference range was not u sed to interpret this result as normal/abnormal . [facility]) HEp-2 Substrate, [id number] 03:00:35 Test Item Value Reference Range Interpretation Comments ED HEp-2 See Footnote See_Comment RESULT: <1:80 ( Negative) Substrate (test -------ADDITI code = 12741-8) ONAL INFORMATION---- -----Method: Immunofluoresce nce using HEp-2 cellular substrate. Test Performed by:[facility] [place] [id number] [employer] [place], [place] [address]Yps Direct or: Nito jose M.D. Ph.D.; CLIA# 24 [id number] [Automated Nuvosun age] The system which ge nerated this result tra nsmitted reference range : <1:80 (Negative). The reference range was not u sed to interpret this result as normal/abnormal . [facility] (ED) HEp-2 Substrate, [id number] 03:00:35 Test Item Value Reference Range Interpretation Comments ED HEp-2 See Footnote See_Comment RESULT: <1:80 ( Negative) Substrate (test -------ADDITI code = 69833-4) ONAL INFORMATION---- -----Method: Immunofluoresce nce using HEp-2 cellular substrate. Test Performed by:[facility] [facility] [id number] [place], [place] [address]Qvp Direct or: Nito jose M.D. Ph.D.; CLIA# 24 [id number] [Automated mess age] The system which ge nerated this result tra nsmitted reference range : <1:80 (Negative). The reference range was not u sed to interpret this result as normal/abnormal . [facility] [id number] 01:35:56Streptococcal Urine Antigen Path ReviewReviewed and Electronically signed by Pathologist:NORMAN CAMARILLO MD #[address] [facility]ENTERUnB[facility] Sunnyvaletreptococcal Urine Antigen Path [id number] 01:35:56Streptococcal Urine Antigen Path ReviewReviewed and Electronically signed by Pathologist:NORMAN CAMARILLO MD #0[address] [facility]ENTERUn[facility] Streptococcal Urine Antigen Path [id number] 01:35:56Streptococcal Urine Antigen Path ReviewReviewed and Electronically signed by Pathologist:NORMAN CAMARILLO MD #[address] [facility]ENTERUnB[facility] Sunnyvaletreptococcal Urine Antigen Path [id number] 01:35:56 Streptococcal Urine Antigen Path ReviewReviewed and Electronically signed by Pathologist:NORMAN CAMARILLO MD #[address] [facility]ENTERUnB[facility] Sunnyvaletreptococcal Urine Antigen Path Review 2022-03-28 01:35:56Streptococcal Urine Antigen Path ReviewReviewed and Electronically signed by Pathologist:NORMAN CAMARILLO MD #[address] [facility]ENTERUnB[facility] Sunnyvaletreptococcal Urine Antigen Path [id number] 01:35:56Streptococcal Urine Antigen Path ReviewReviewed and Electronically signed by Pathologist:NORMAN CAMARILLO MD #[address] [facility]ENTERUn[facility] Streptococcal Urine Antigen Path [id number] 01:35:56Streptococcal Urine Antigen Path ReviewReviewed and Electronically signed by Pathologist:NORMAN CAMARILLO MD #[address] [facility]ENTERUnB[facility] Sunnyvaletreptococcal Urine Antigen Path [id number] 01:35:56 Streptococcal Urine Antigen Path ReviewReviewed and Electronically signed by Pathologist:NORMAN CAMARILLO MD #[address] [facility]ENTERUnB[facility] Sunnyvaletreptococcal Urine Antigen Path Review 2022-03-28 01:35:56Streptococcal Urine Antigen Path ReviewReviewed and Electronically signed by Pathologist:NORMAN CAMARILLO MD #[address] [facility]ENTERUnB[facility] Sunnyvaletreptococcal Urine Antigen Path [id number] 01:35:56Streptococcal Urine Antigen Path ReviewReviewed and Electronically signed by Pathologist:NORMAN CAMARILLO MD #[address] [facility]ENTERUn[facility] Streptococcal Urine Antigen Path [id number] 01:35:56Streptococcal Urine Antigen Path ReviewReviewed and Electronically signed by Pathologist:NORMAN CAMARILLO MD #[address] [facility]ENTERUnB[facility] Sunnyvaletreptococcal Urine Antigen Path [id number] 01:35:56 Streptococcal Urine Antigen Path ReviewReviewed and Electronically signed by Pathologist:NORMAN CAMARILLO MD #[address] [facility]ENTERUnB[facility] – Sunnyvaletreptococcal Urine Antigen Path Review 2022-03-28 01:35:56Streptococcal Urine Antigen Path ReviewReviewed and Electronically signed by Pathologist:NORMAN CAMARILLO MD #[address] [facility]ENTERUnB[facility] Sunnyvaletreptococcal Urine Antigen Path [id number] 01:35:56Streptococcal Urine Antigen Path ReviewReviewed and Electronically signed by Pathologist:NORMAN CAMARILLO MD #[address] [facility]ENTERUn[facility] Streptococcal Urine Antigen Path [id number] 01:35:56Streptococcal Urine Antigen Path ReviewReviewed and Electronically signed by Pathologist:NORMAN CAMARILLO MD #[address] [facility]ENTERUnB[facility] – Sunnyvaletreptococcal Urine Antigen Path [id number] 01:35:56 Streptococcal Urine Antigen Path ReviewReviewed and Electronically signed by Pathologist:NORMAN CAMARILLO MD #[address] [facility]ENTERUnCleveland Emergency HospitalLegionella Urine Antigen Path Rkiyjr5141-06-31 01:35:55Legionella Urine Antigen Path ReviewReviewed and Electronically signed by Pathologist:NORMAN CAMARILLO MD #0990 [facility] CenterLegion[facility] U[facility] [id number] 01:35:55Legionella Urine Antigen Path ReviewReviewed and Electronically signed by Pathologist:NORMAN CAMARILLO MD #0[address] [facility]ENTERUnC[facility] Emergency HospitalLegionella Urine Antigen Path [id number] 01:35:55Legionella Urine Antigen Path ReviewReviewed and Electronically signed by Pathologist:NORMAN CAMARILLO MD #[address] [facility]ENTERUn[facility] Legionella Urine Antigen Path [id number] 01:35:55Legionella Urine Antigen Path ReviewReviewed and Electronically signed by Pathologist:NORMAN CAMARILLO MD #[address] [facility]ENTERUnCleveland Emergency HospitalLegionella Urine Antigen Path [id number] 01:35:55Legionella Urine Antigen Path ReviewReviewed and Electronically signed by Pathologist:NORMAN CAMARILLO MD #0[address] [facility]ENTERUnC[facility] HospitalLegionella Urine Antigen Path [id number] 01:35:55Legionella Urine Antigen Path ReviewReviewed and Electronically signed by Pathologist:NORMAN CAMARILLO MD #0[address] [facility]ENTERUnC[facility] HospitalLegionella Urine Antigen Path [id number] 01:35:55Legionella Urine Antigen Path ReviewReviewed and Electronically signed by Pathologist:NORMAN CAMARILLO MD #0990 [facility] CenterLegion[facility] U[facility] Antigen Path [id number] 01:35:55Legionella Urine Antigen Path ReviewReviewed and Electronically signed by Pathologist:NORMAN CAMARILLO MD #0[address] [facility]ENTERUnC[facility] HospitalLegionella Urine Antigen Path [id number] 01:35:55Legionella Urine Antigen Path ReviewReviewed and Electronically signed by Pathologist:NORMAN CAMARILLO MD #0[address] [facility]ENTERUn[facility] Legionella Urine Antigen Path [id number] 01:35:55Legionella Urine Antigen Path ReviewReviewed and Electronically signed by Pathologist:NORMAN CAMARILLO MD #0[address] [facility]ENTERUnC[facility] Emergency HospitalLegionella Urine Antigen Path [id number] 01:35:55Legionella Urine Antigen Path ReviewReviewed and Electronically signed by Pathologist:NORMAN CAMARILLO MD #0[address] [facility]ENTERUnC[facility] Emergency HospitalLegionella Urine Antigen Path [id number] 01:35:55Legionella Urine Antigen Path ReviewReviewed and Electronically signed by Pathologist:NORMAN CAMARILLO MD #0[address] [facility]ENTERUnC[facility] Emergency HospitalLegionella Urine Antigen Path Milzbf2570-06-61 01:35:55Legionella Urine Antigen Path ReviewReviewed and Electronically signed by Pathologist:NORMAN CAMARILLO MD #0990 [facility] CenterLegionella Urine Antigen Path Yhozjn3786-30-28 01:35:55Legionella Urine Antigen Path ReviewReviewed and Electronically signed by Pathologist:NORMAN CAMARILLO MD #0[address] [facility]ENTERUnC[facility] HospitalLegionella Urine Antigen Path [id number] 01:35:55Legionella Urine Antigen Path ReviewReviewed and Electronically signed by Pathologist:NORMAN CAMARILLO MD #0[address] [facility]ENTERUn[facility] Legionella Urine Antigen Path [id number] 01:35:55Legionella Urine Antigen Path ReviewReviewed and Electronically signed by Pathologist:NORMAN CAMARILLO MD #0[address] [facility] CENTERUnCleveland Emergency HospitalMayo Miscellaneous [id number] 22:11:39 Test Item Value Reference Range Interpretation Comments [facility] Test Result See Footnote A Test R esult Flag (test code = 6385) Unit RefValue------- --- --- --- --- Beta-Hydroxybut yra te, S 2.0 H mmo l/L <0.4 Test Performed by: [place] [address] Hi Lift Operator: Scott Marie M.D. Ph.D.; CLIA# [id number] [facility] Test Name Beta-Hydroxybut (test code = 64960) yrate CHANDRAKANT (test code = CHANDRAKANT) Beta-Hydroxybut yrate Lab Interpretation Abnormal (test code = 80067-6) [facility] Miscellaneous [id number] 22:11:39 Test Item Value Reference Range Interpretation Comments [facility] Test Result See Footnote A Test Re sult Flag (test code = 6385) Unit RefValue------- --- --- --- --- Beta-Hydroxybut yra te, S 2.0 H mmo l/L <0.4 Test Performed by: [place] [address] Hi Lift Operator: Scott Marie M.D. Ph.D.; CLIA# [id number] [facility] Test Name Beta-Hydroxybut (test code = 11035) yrate CHANDRAKANT (test code = CHANDRAKANT) Beta-Hydroxybut yrate Lab Interpretation Abnormal (test code = 41649-6) [facility] [id number] 22:11:39 Test Item Value Reference Range Interpretation Comments [facility] Test Result See Footnote A Test R esult Flag (test code = 6385) Unit RefValue------- --- --- --- --- Beta-Hydroxybut yra te, S 2.0 H mmo l/L <0.4 Test Performed by: [place] [address] Hi Lift Operator: Scott Marie M.D. Ph.D.; CLIA# [id number] [facility] Test Name Beta-Hydroxybut (test code = 32515) yrate CHANDRAKANT (test code = CHANDRAKANT) Beta-Hydroxybut yrate Lab Interpretation Abnormal (test code = 70568-9) [facility] [id number] 22:11:39 Test Item Value Reference Range Interpretation Comments [facility] Test Result See Footnote A Test Re sult Flag (test code = 6385) Unit RefValue------- --- --- --- --- Beta-Hydroxybut yra te, S 2.0 H mmol/L <0.4 Michael t Performed by: [place] [address] Hi Lift Operator: Scott Marie M.D. Ph.D.; CLIA# [id number] [facility] Test Name Beta-Hydroxybut (test code = 53702) yrate CHANDRAKANT (test code = CHANDRAKANT) Beta-Hydroxybut yrate Lab Interpretation Abnormal (test code = 80565-6) [facility] [id number] 22:11:39 Test Item Value Reference Range Interpretation Comments [facility] Test Result See Footnote A Test Re sult Flag (test code = 6385) Unit RefValue------- --- --- --- --- Beta-Hydroxybut yra te, S 2.0 H mmo l/L <0.4 Test Performed by: [place] [address] Hi Lift Operator: Scott Marie M.D. Ph.D.; CLIA# [id number] [facility] Test Name Beta-Hydroxybut (test code = 37103) yrate CHANDRAKANT (test code = CHANDRAKANT) Beta-Hydroxybut yrate Lab Interpretation Abnormal (test code = 11350-1) [facility] [id number] 22:11:39 Test Item Value Reference Range Interpretation Comments [place] [facility] Test Result See Footnote A Test Re sult Flag (test code = 6385) Unit RefValue------- --- --- --- --- Beta-Hydroxybut yra te, S 2.0 H mmo l/L <0.4 Test Performed by: [place] [address] Hi Lift Operator: Scott Marie M.D. Ph.D.; CLIA# [id number] [facility] Test Name Beta-Hydroxybut (test code = 38004) yrate CHANDRAKANT (test code = CHANDRAKANT) Beta-Hydroxybut yrate Lab Interpretation Abnormal (test code = 04161-8) [facility] [id number] 22:11:39 Test Item Value Reference Range Interpretation Comments [place] [facility] Test Result See Footnote A Test R esult Flag (test code = 6385) Unit RefValue------- --- --- --- --- Beta-Hydroxybut yra te, S 2.0 H mmo l/L <0.4 Test Performed by: [place] [address] Hi Lift Operator: Scott Marie M.D. Ph.D.; CLIA# [id number] [facility] Test Name Beta-Hydroxybut (test code = 86370) yrate CHANDRAKANT (test code = CHANDRAKANT) Beta-Hydroxybut yrate Lab Interpretation Abnormal (test code = 91533-9) [facility] [id number] 22:11:39 Test Item Value Reference Range Interpretation Comments [facility] Test Result See Footnote A Test Re sult Flag (test code = 6385) Unit RefValue------- --- --- --- --- Beta-Hydroxybut yra te, S 2.0 H mmo l/L <0.4 Test Performed by: [place] [address] Hi Lift Operator: Scott Marie M.D. Ph.D.; CLIA# [id number] [facility] Test Name Beta-Hydroxybut (test code = 27323) yrate CHANDRAKANT (test code = CHANDRAKANT) Beta-Hydroxybut yrate Lab Interpretation Abnormal (test code = 37005-2) [facility] Miscellaneous [id number] 22:11:39 Test Item Value Reference Range Interpretation Comments [facility] Test Result See Footnote A Test Re sult Flag (test code = 6385) Unit RefValue------- --- --- --- --- Beta-Hydroxybut yra te, S 2.0 H mmo l/L <0.4 Test Performed by: [place] [address] Hi Lift Operator: Soctt Marie M.D. Ph.D.; CLIA# [id number] [facility] Test Name Beta-Hydroxybut (test code = 89114) yrate CHANDRAKANT (test code = CHANDRAKANT) Beta-Hydroxybut yrate Lab Interpretation Abnormal (test code = 69471-2) [facility] [id number] 22:11:39 Test Item Value Reference Range Interpretation Comments [facility] Test Result See Footnote A Test Re sult Flag (test code = 6385) Unit RefValue------- --- --- --- --- Beta-Hydroxybut yra te, S 2.0 H mmo l/L <0.4 Test Performed by: [place] [address] Hi Lift Operator: Scott Marie M.D. Ph.D.; CLIA# [id number] [facility] Test Name Beta-Hydroxybut (test code = 82331) yrate CHANDRAKANT (test code = CHANDRAKANT) Beta-Hydroxybut yrate Lab Interpretation Abnormal (test code = 53796-7) [facility] [id number] 22:11:39 Test Item Value Reference Range Interpretation Comments [facility] Test Result See Footnote A Test R esult Flag (test code = 6385) Unit RefValue------- --- --- --- --- Beta-Hydroxybut yra te, S 2.0 H mmo l/L <0.4 Test Performed by: [place] [address] Hi Lift Operator: Scott Marie M.D. Ph.D.; CLIA# [id number] [facility] Test Name Beta-Hydroxybut (test code = 11937) yrate CHANDRAKANT (test code = CHANDRAKANT) Beta-Hydroxybut yrate Lab Interpretation Abnormal (test code = 49219-7) [facility] [id number] 22:11:39 Test Item Value Reference Range Interpretation Comments [facility] Test Result See Footnote A Test R esult Flag (test code = 6385) Unit RefValue------- --- --- --- --- Beta-Hydroxybut yra te, S 2.0 H mmo l/L <0.4 Test Performed by: [place] [address] Hi Lift Operator: Scott Marie M.D. Ph.D.; CLIA# [id number] [facility] Test Name Beta-Hydroxybut (test code = 12622) yrate CHANDRAKANT (test code = CHANDRAKANT) Beta-Hydroxybut yrate Lab Interpretation Abnormal (test code = 10158-6) [facility] Miscellaneous [id number] 22:11:39 Test Item Value Reference Range Interpretation Comments [facility] Test Result See Footnote A Test Re sult Flag (test code = 6385) Unit RefValue------- --- --- --- --- Beta-Hydroxybut yra te, S 2.0 H mmo l/L <0.4 Test Performed by: [place] [address] Hi Lift Operator: Scott Marie M.D. Ph.D.; CLIA# [id number] [facility] Test Name Beta-Hydroxybut (test code = 12264) yrate CHANDRAKANT (test code = CHANDRAKANT) Beta-Hydroxybut yrate Lab Interpretation Abnormal (test code = 50464-0) [facility] [id number] 22:11:39 Test Item Value Reference Range Interpretation Comments [facility] Test Result See Footnote A Test Re sult Flag (test code = 6385) Unit RefValue------- --- --- --- --- Beta-Hydroxybut yra te, S 2.0 H mmo l/L <0.4 Test Performed by: [place] [address] Hi Lift Operator: Scott Marie M.D. Ph.D.; CLIA# [id number] [facility] Test Name Beta-Hydroxybut (test code = 12967) yrate CHANDRAKANT (test code = CHANDRAKANT) Beta-Hydroxybut yrate Lab Interpretation Abnormal (test code = 11981-2) [facility] [id number] 22:11:39 Test Item Value Reference Range Interpretation Comments [facility] Test Result See Footnote A Test Re sult Flag (test code = 6385) Unit RefValue------- --- --- --- --- Beta-Hydroxybut yra te, S 2.0 H mmo l/L <0.4 Test Performed by: [place] [address] Hi Lift Operator: Scott Marie M.D. Ph.D.; CLIA# [id number] [facility] Test Name Beta-Hydroxybut (test code = 45165) yrate CHANDRAKANT (test code = CHANDRAKANT) Beta-Hydroxybut yrate Lab Interpretation Abnormal (test code = 86665-8) [facility] [id number] 22:11:39 Test Item Value Reference Range Interpretation Comments [facility] Test Result See Footnote A Test Re sult Flag (test code = 6385) Unit RefValue------- --- --- --- --- Beta-Hydroxybut yra te, S 2.0 H mmo l/L <0.4 Test Performed by: [place] [address] Hi Lift Operator: Scott Marie M.D. Ph.D.; CLIA# [id number] [facility] Test Name Beta-Hydroxybut (test code = 56019) yrate CHANDRAKANT (test code = CHANDRAKANT) Beta-Hydroxybut yrate Lab Interpretation Abnormal (test code = 80541-2) [facility] [id number] 21:18:20 Test Item Value Reference Range Interpretation Comments Streptococcal Urine Antigen Negative Interpretation (test code = 46191633) [facility] [id number] 21:18:20 Test Item Value Reference Range Interpretation Comments Streptococcal Urine Antigen Negative Interpretation (test code = 40379532) [facility] [id number] 21:18:20 Test Item Value Reference Range Interpretation Comments Streptococcal Urine Antigen Negative Interpretation (test code = 05465838) [facility] [id number] 21:18:20 Test Item Value Reference Range Interpretation Comments Streptococcal Urine Antigen Negative Interpretation (test code = 40801253) [facility] [id number] 21:18:20 Test Item Value Reference Range Interpretation Comments Streptococcal Urine Antigen Negative Interpretation (test code = 92676219) [facility] Urine [id number] 21:18:20 Test Item Value Reference Range Interpretation Comments Streptococcal Urine Antigen Negative Interpretation (test code = 22228548) [facility] Urine [id number] 21:18:20 Test Item Value Reference Range Interpretation Comments Streptococcal Urine Antigen Negative Interpretation (test code = 16551702) [facility] [id number] 21:18:20 Test Item Value Reference Range Interpretation Comments Streptococcal Urine Antigen Negative Interpretation (test code = 81212382) [facility] Urine [id number] 21:18:20 Test Item Value Reference Range Interpretation Comments Streptococcal Urine Antigen Negative Interpretation (test code = 54360076) [facility] Urine [id number] 21:18:20 Test Item Value Reference Range Interpretation Comments Streptococcal Urine Antigen Negative Interpretation (test code = 02195575) [facility] Urine [id number] 21:18:20 Test Item Value Reference Range Interpretation Comments Streptococcal Urine Antigen Negative Interpretation (test code = 06919791) [facility] Urine [id number] 21:18:20 Test Item Value Reference Range Interpretation Comments Streptococcal Urine Antigen Negative Interpretation (test code = 01441726) [facility] Urine [id number] 21:18:20 Test Item Value Reference Range Interpretation Comments Streptococcal Urine Antigen Negative Interpretation (test code = 98646333) [facility] Urine [id number] 21:18:20 Test Item Value Reference Range Interpretation Comments Streptococcal Urine Antigen Negative Interpretation (test code = 09977511) [facility] Urine [id number] 21:18:20 Test Item Value Reference Range Interpretation Comments Streptococcal Urine Antigen Negative Interpretation (test code = 21356664) [facility] Urine [id number] 21:18:20 Test Item Value Reference Range Interpretation Comments Streptococcal Urine Antigen Negative Interpretation (test code = 74901150) [facility] [id number] 21:16:26 Test Item Value Reference Range Interpretation Comments Legionella Urine Antigen Negative Interpretation (test code = 9249715) [facility] [id number] 21:16:26 Test Item Value Reference Range Interpretation Comments Legionella Urine Antigen Negative Interpretation (test code = 6203250) [facility] [id number] 21:16:26 Test Item Value Reference Range Interpretation Comments Legionella Urine Antigen Negative Interpretation (test code = 4803452) [facility] [id number] 21:16:26 Test Item Value Reference Range Interpretation Comments Legionella Urine Antigen Negative Interpretation (test code = 0291490) [facility] [id number] 21:16:26 Test Item Value Reference Range Interpretation Comments Legionella Urine Antigen Negative Interpretation (test code = 1546361) [facility] [id number] 21:16:26 Test Item Value Reference Range Interpretation Comments Legionella Urine Antigen Negative Interpretation (test code = 9090936) [facility] [id number] 21:16:26 Test Item Value Reference Range Interpretation Comments Legionella Urine Antigen Negative Interpretation (test code = 1373675) [facility] [id number] 21:16:26 Test Item Value Reference Range Interpretation Comments Legionella Urine Antigen Negative Interpretation (test code = 3401066) [facility] [id number] 21:16:26 Test Item Value Reference Range Interpretation Comments Legionella Urine Antigen Negative Interpretation (test code = 3517422) [facility] Yojbhgg9705-15-72 21:16:26 Test Item Value Reference Range Interpretation Comments Legionella Urine Antigen Negative Interpretation (test code = 4745227) [facility] [id number] 21:16:26 Test Item Value Reference Range Interpretation Comments Legionella Urine Antigen Negative Interpretation (test code = 4540240) [facility] Chclrpo9563-73-87 21:16:26 Test Item Value Reference Range Interpretation Comments Legionella Urine Antigen Negative Interpretation (test code = 7962278) [facility] [id number] 21:16:26 Test Item Value Reference Range Interpretation Comments Legionella Urine Antigen Negative Interpretation (test code = 9553734) [facility] Hqbjyak5477-03-03 21:16:26 Test Item Value Reference Range Interpretation Comments Legionella Urine Antigen Negative Interpretation (test code = 9745032) [facility] [id number] 21:16:26 Test Item Value Reference Range Interpretation Comments Legionella Urine Antigen Negative Interpretation (test code = 1353935) [facility] [id number] 21:16:26 Test Item Value Reference Range Interpretation Comments Legionella Urine Antigen Negative Interpretation (test code = 4126921) [facility] Cyt[facility] Antibodies Vascultitis [id number] 20:47:30 Test Item Value Reference Range Interpretation Comments Myeloperox Ab-Frye <0.2 See_Comment [Automat ed message] The (test code = 15993-5) system which generated this result tra nsmitted reference range : <0.4 (Negative) Unit s. The reference range was not used to interpr et this result as normal/abnormal . Proteinase 3 Ab-Frye <0.2 See_Comment Test P erformed by:Uday (test code = 20130-0) [facility] [address] [employer] [employer] [place], [place] [address]Lfz Direct or: Nito jose M.D. Ph.D.; CLIA# 24 [id number] [Automated mess age] The system which ge nerated this result tra nsmitted reference range : <0.4 (Negative) Unit s. The reference range was not used to interpr et this result as normal/abnormal . [facility] Cytoplasmic Antibodies Vascultitis [id number] 20:47:30 Test Item Value Reference Range Interpretation Comments Myeloperox Ab-Frye <0.2 See_Comment [Automat ed message] The (test code = 92822-4) system which generated this result tra nsmitted reference range : <0.4 (Negative) Unit s. The reference range was not used to interpr et this result as normal/abnormal . Proteinase 3 Ab-Frye <0.2 See_Comment Test P erformed by:[place] (test code = 06321-1) [facility] [employer] [facility] [employer] [place], [place] [address]Uxb Direct or: Nito jose M.D. Ph.D.; CLIA# 24 [id number] [Automated mess age] The system which ge nerated this result tra nsmitted reference range : <0.4 (Negative) Unit s. The reference range was not used to interpr et this result as normal/abnormal . [facility] Cytoplasmic Antibodies Vascultitis [id number] 20:47:30 Test Item Value Reference Range Interpretation Comments Myeloperox Ab-Frye <0.2 See_Comment [Automat ed message] The (test code = 18584-3) system which generated this result tra nsmitted reference range : <0.4 (Negative) Unit s. The reference range was not used to interpr et this result as normal/abnormal . Proteinase 3 Ab-Frye <0.2 See_Comment Test P erformed by:[place] (test code = 46933-8) [facility] [employer] [facility] [employer] [facility] [place], [place] [address]Dpg Direct or: Nito jose M.D. Ph.D.; CLIA# 24 [id number] [Automated mess age] The system which ge nerated this result tra nsmitted reference range : <0.4 (Negative) Unit s. The reference range was not used to interpr et this result as normal/abnormal . [facility] Cytoplasmic Antibodies Vascultitis [id number] 20:47:30 Test Item Value Reference Range Interpretation Comments Myeloperox Ab-Frye <0.2 See_Comment [Automat ed message] The (test code = 73978-1) system which generated this result tra nsmitted reference range : <0.4 (Negative) Unit s. The reference range was not used to interpr et this result as normal/abnormal . Proteinase 3 Ab-Frye <0.2 See_Comment Test P erformed by:[place] (test code = 36828-7) [facility] [address] [place], [place] [address]Xfo Direct or: Nito jose M.D. Ph.D.; CLIA# 24 [id number] [Automated mess age] The system which ge nerated this result tra nsmitted reference range : <0.4 (Negative) Unit s. The reference range was not used to interpr et this result as normal/abnormal . [facility] Cytoplasmic Antibodies Vascultitis Cyeby2506-06-22 20:47:30 Test Item Value Reference Range Interpretation Comments Myeloperox Ab-Frye <0.2 See_Comment [Automat ed message] The (test code = 12277-5) system which generated this result tra nsmitted reference range : <0.4 (Negative) Unit s. The reference range was not used to interpr et this result as normal/abnormal . Proteinase 3 Ab-Frye <0.2 See_Comment Test P erformed by:[place] (test code = 30718-0) [facility] [place] [address] [place], [place] [address]Big Direct or: Nito jose M.D. Ph.D.; CLIA# 24 [id number] [Automated mess age] The system which ge nerated this result tra nsmitted reference range : <0.4 (Negative) Unit s. The reference range was not used to interpr et this result as normal/abnormal . [facility] Cytoplasmic Antibodies Vascultitis Idczc0408-74-29 20:47:30 Test Item Value Reference Range Interpretation Comments Myeloperox Ab-Frye <0.2 See_Comment [Automat ed message] The (test code = 54231-0) system which generated this result tra nsmitted reference range : <0.4 (Negative) Unit s. The reference range was not used to interpr et this result as normal/abnormal . Proteinase 3 Ab-Frye <0.2 See_Comment Test P erformed by:[place] (test code = 10035-4) [facility] [address] [place], [place] [address]Sli Direct or: Nito jose M.D. Ph.D.; CLIA# 24 [id number] [Automated mess age] The system which ge nerated this result tra nsmitted reference range : <0.4 (Negative) Unit s. The reference range was not used to interpr et this result as normal/abnormal . [facility] Cytoplasmic Antibodies Vascultitis Dirkv3954-95-17 20:47:30 Test Item Value Reference Range Interpretation Comments Myeloperox Ab-Frye <0.2 See_Comment [Automat ed message] The (test code = 97596-6) system which generated this result tra nsmitted reference range : <0.4 (Negative) Unit s. The reference range was not used to interpr et this result as normal/abnormal . Proteinase 3 Ab-Frye <0.2 See_Comment Test P erformed by:[place] (test code = 80193-4) [facility] [address] [place], [place] [address]Bpa Direct or: Nito jose M.D. Ph.D.; CLIA# 24 [id number] [Automated mess age] The system which ge nerated this result tra nsmitted reference range : <0.4 (Negative) Unit s. The reference range was not used to interpr et this result as normal/abnormal . [facility] Cyt[facility] Antibodies Vascultitis Aqome4789-94-30 20:47:30 Test Item Value Reference Range Interpretation Comments Myeloperox Ab-Frye <0.2 See_Comment [Automat ed message] The (test code = 07880-7) system which generated this result tra nsmitted reference range : <0.4 (Negative) Unit s. The reference range was not used to interpr et this result as normal/abnormal . Proteinase 3 Ab-Frye <0.2 See_Comment Test P erformed by:[place] (test code = 12887-4) [facility] [place] [address] [place], [place] [address]Ahr Direct or: Nito jose M.D. Ph.D.; CLIA# 24 [id number] [Automated mess age] The system which ge nerated this result tra nsmitted reference range : <0.4 (Negative) Unit s. The reference range was not used to interpr et this result as normal/abnormal . [facility] Cyt[facility] Antibodies Vascultitis Vrrvg8137-52-73 20:47:30 Test Item Value Reference Range Interpretation Comments Myeloperox Ab-Frye <0.2 See_Comment [Automat ed message] The (test code = 16362-2) system which generated this result tra nsmitted reference range : <0.4 (Negative) Unit s. The reference range was not used to interpr et this result as normal/abnormal . Proteinase 3 Ab-Frye <0.2 See_Comment Test P erformed by:[place] (test code = 47512-8) [facility] [place] [address] [place], [place] [address]Lyb Direct or: Nito jose M.D. Ph.D.; CLIA# 24 [id number] [Automated mess age] The system which ge nerated this result tra nsmitted reference range : <0.4 (Negative) Unit s. The reference range was not used to interpr et this result as normal/abnormal . [facility] Cyt[facility] Antibodies Vascultitis Vizqf7060-42-39 20:47:30 Test Item Value Reference Range Interpretation Comments Myeloperox Ab-Frye <0.2 See_Comment [Automat ed message] The (test code = 46439-3) system which generated this result tra nsmitted reference range : <0.4 (Negative) Unit s. The reference range was not used to interpr et this result as normal/abnormal . Proteinase 3 Ab-Frye <0.2 See_Comment Test P erformed by:[place] (test code = 78018-0) [facility] [place] [address] [place], [place] [address]Crg Direct or: Nito jose M.D. Ph.D.; CLIA# 24 [id number] [Automated mess age] The system which ge nerated this result tra nsmitted reference range : <0.4 (Negative) Unit s. The reference range was not used to interpr et this result as normal/abnormal . [facility] Cyt[facility] Antibodies Vascultitis Onjxe1238-66-86 20:47:30 Test Item Value Reference Range Interpretation Comments Myeloperox Ab-Frye <0.2 See_Comment [Automat ed message] The (test code = 12273-2) system which generated this result tra nsmitted reference range : <0.4 (Negative) Unit s. The reference range was not used to interpr et this result as normal/abnormal . Proteinase 3 Ab-Frye <0.2 See_Comment Test P erformed by:[place] (test code = 68897-1) [facility] [employer] [facility] [employer] [place] [id number] Direct or: Nito jose M.D. Ph.D.; CLIA# 24 [id number] [Automated mess age] The system which ge nerated this result tra nsmitted reference range : <0.4 (Negative) Unit s. The reference range was not used to interpr et this result as normal/abnormal . [facility] Cyt[facility] Antibodies Vascultitis Pvqlo6985-03-36 20:47:30 Test Item Value Reference Range Interpretation Comments Myeloperox Ab-Frye <0.2 See_Comment [Automat ed message] The (test code = 04961-8) system which generated this result tra nsmitted reference range : <0.4 (Negative) Unit s. The reference range was not used to interpr et this result as normal/abnormal . Proteinase 3 Ab-Frye <0.2 See_Comment Test P erformed by:[place] (test code = 59108-8) [facility] [employer] [facility] [employer] [facility] [place], [place] [address]Zle Direct or: Nito jose M.D. Ph.D.; CLIA# 24 [id number] [Automated mess age] The system which ge nerated this result tra nsmitted reference range : <0.4 (Negative) Unit s. The reference range was not used to interpr et this result as normal/abnormal . [facility] Cyt[facility] Antibodies Vascultitis Ewqfs5824-27-42 20:47:30 Test Item Value Reference Range Interpretation Comments Myeloperox Ab-Frye <0.2 See_Comment [Automat ed message] The (test code = 41988-5) system which generated this result tra nsmitted reference range : <0.4 (Negative) Unit s. The reference range was not used to interpr et this result as normal/abnormal . Proteinase 3 Ab-Frye <0.2 See_Comment Test P erformed by:[place] (test code = 02660-7) [facility] [address] [place], [place] [address]Jwr Direct or: Nito jose M.D. Ph.D.; CLIA# 24 [id number] [Automated mess age] The system which ge nerated this result tra nsmitted reference range : <0.4 (Negative) Unit s. The reference range was not used to interpr et this result as normal/abnormal . [facility] Vascultitis [id number] 20:47:30 Test Item Value Reference Range Interpretation Comments Myeloperox Ab-Frye <0.2 See_Comment [Automat ed message] The (test code = 18924-0) system which generated this result tra nsmitted reference range : <0.4 (Negative) Unit s. The reference range was not used to interpr et this result as normal/abnormal . Proteinase 3 Ab-Frye <0.2 See_Comment Test P erformed by:[place] (test code = 17033-4) [facility] [place] [id number] [place], [place] [address]Vxb Direct or: Nito jose M.D. Ph.D.; CLIA# 24 [id number] [Automated mess age] The system which ge nerated this result tra nsmitted reference range : <0.4 (Negative) Unit s. The reference range was not used to interpr et this result as normal/abnormal . [facility] Cytoplasmic Antibodies Vascultitis [id number] 20:47:30 Test Item Value Reference Range Interpretation Comments Myeloperox Ab-Frye <0.2 See_Comment [Automat ed message] The (test code = 57650-6) system which generated this result tra nsmitted reference range : <0.4 (Negative) Unit s. The reference range was not used to interpr et this result as normal/abnormal . Proteinase 3 Ab-Frye <0.2 See_Comment Test P erformed by:[place] (test code = 08255-5) [facility] [employer] [place], [place] [address]Dkp Direct or: Nito jose M.D. Ph.D.; CLIA# 24 [id number] [Automated mess age] The system which ge nerated this result tra nsmitted reference range : <0.4 (Negative) Unit s. The reference range was not used to interpr et this result as normal/abnormal . [facility] Cytoplasmic Antibodies Vascultitis [id number] 20:47:30 Test Item Value Reference Range Interpretation Comments Myeloperox Ab-Frye <0.2 See_Comment [Automat ed message] The (test code = 74370-7) system which generated this result tra nsmitted reference range : <0.4 (Negative) Unit s. The reference range was not used to interpr et this result as normal/abnormal . Proteinase 3 Ab-Frye <0.2 See_Comment Test P erformed by:[place] (test code = 88403-6) [facility] [employer] [place], [place] [address]Qws Direct or: Nito jose M.D. Ph.D.; CLIA# 24 [id number] [Automated mess age] The system which ge nerated this result tra nsmitted reference range : <0.4 (Negative) Unit s. The reference range was not used to interpr et this result as normal/abnormal . [facility] [id number] 08:15:11 Test Item Value Reference Range Interpretation Comments CK (test code = 2157-6) 161 U/L 26-192 CK MB (test code = 2.6 ng/mL <=5.3 42978-2) Troponin T (test code = 80 ng/L <=18 A < 19 ng/L Suggest 86617-1) retest at 3 to 6 hours later [...] ults. Lab Interpretation Abnormal (test code = 21312-6) [facility] [id number] 08:15:11 Test Item Value Reference Range Interpretation Comments CK (test code = 2157-6) 161 U/L 26-192 CK MB (test code = 2.6 ng/mL <=5.3 31021-1) Troponin T (test code = 80 ng/L <=18 A < 19 ng/L Suggest 90952-3) retest at 3 to 6 hours later [...] ults. Lab Interpretation Abnormal (test code = 67862-9) [facility] [id number] 08:15:11 Test Item Value Reference Range Interpretation Comments CK (test code = 2157-6) 161 U/L 26-192 CK MB (test code = 2.6 ng/mL <=5.3 15941-4) Troponin T (test code = 80 ng/L <=18 A < 19 ng/L Suggest 43036-2) retest at 3 to 6 hours later [...] ults. Lab Interpretation Abnormal (test code = 42807-9) [facility] [id number] 08:15:11 Test Item Value Reference Range Interpretation Comments CK (test code = 2157-6) 161 U/L 26-192 CK MB (test code = 2.6 ng/mL <=5.3 54932-8) Troponin T (test code = 80 ng/L <=18 A < 19 ng/L Suggest 37628-2) retest at 3 to 6 hours later [...] ults. Lab Interpretation Abnormal (test code = 57927-5) [facility] [id number] 08:15:11 Test Item Value Reference Range Interpretation Comments CK (test code = 2157-6) 161 U/L 26-192 CK MB (test code = 2.6 ng/mL <=5.3 99043-2) Troponin T (test code = 80 ng/L <=18 A < 19 ng/L Suggest 30724-9) retest at 3 to 6 hours later [...] ults. Lab Interpretation Abnormal (test code = 05546-0) [facility] [id number] 08:15:11 Test Item Value Reference Range Interpretation Comments CK (test code = 2157-6) 161 U/L 26-192 CK MB (test code = 2.6 ng/mL <=5.3 31533-2) Troponin T (test code = 80 ng/L <=18 A < 19 ng/L Suggest 24140-7) retest at 3 to 6 hours later to rule out myocardial infarction >= 1 9 to <=52 ng/L Possi ble myocardial inju ry. Suggest retest at 3 hours. - a jayden nge of < 20 ng/L, rete st at 6 hours - a jayden nge of >= 20 ng/L, suggestive of myocardial infarction > 52 ng/L Suggestive of myocardial infa rction Critical value will be reported whe n cTnT is > 52 ng/L an d only reported for th e first in a seri es. Hemolyzed speci mens with Hemolysis Index >100 (100 mg/dl or moderate hemoly sis) may cause interferences a nd falsely low res ults. Lab Interpretation Abnormal (test code = 05099-2) [facility] [id number] 08:15:11 Test Item Value Reference Range Interpretation Comments CK (test code = 2157-6) 161 U/L 26-192 CK MB (test code = 2.6 ng/mL <=5.3 13212-2) Troponin T (test code = 80 ng/L <=18 A < 19 ng/L Suggest 93730-8) retest at 3 to 6 hours later to rule out myocardial infarction >= 1 9 to <=52 ng/L Possi ble myocardial inju ry. Suggest retest at 3 hours. - a jayden nge of < 20 ng/L, rete st at 6 hours - a jayden nge of >= 20 ng/L, suggestive of myocardial infarction > 52 ng/L Suggestive of myocardial infa rction Critical value will be reported whe n cTnT is > 52 ng/L an d only reported for th e first in a seri es. Hemolyzed speci mens with Hemolysis Index >100 (100 mg/dl or moderate hemoly sis) may cause interferences a nd falsely low res ults. Lab Interpretation Abnormal (test code = 19260-6) [facility] [id number] 22:32:19 Test Item Value Reference Range Interpretation Comments Sed Rate (test code = 83 See_Comment H [Auto mated message] 4537-7) The system [employer] generated this result transmitted ref erence range: 0 - 20 m m/hr. The reference r ashley was not used to interpret this result as normal/abnor mal. Lab Interpretation (test Abnormal code = 25463-3) [facility] [id number] 22:32:19 Test Item Value Reference Range Interpretation Comments Sed Rate (test code = 83 See_Comment H [Auto mated message] 4537-7) The system [employer] generated this result transmitted ref erence range: 0 - 20 m m/hr. The reference r ashley was not used to interpret this result as normal/abnor mal. Lab Interpretation (test Abnormal code = 46809-8) [facility] [id number] 22:32:19 Test Item Value Reference Range Interpretation Comments Sed Rate (test code = 83 See_Comment H [Auto mated message] 4537-7) The system [employer] generated this result transmitted ref erence range: 0 - 20 m m/hr. The reference r ashley was not used to interpret this result as normal/abnor mal. Lab Interpretation (test Abnormal code = 95618-4) [facility] [id number] 22:32:19 Test Item Value Reference Range Interpretation Comments Sed Rate (test code = 83 See_Comment H [Auto mated message] 4537-7) The system [employer] generated this result transmitted ref erence range: 0 - 20 m m/hr. The reference r ashley was not used to interpret this result as normal/abnor mal. Lab Interpretation (test Abnormal code = 79879-5) [facility] [id number] 22:32:19 Test Item Value Reference Range Interpretation Comments Sed Rate (test code = 83 See_Comment H [Auto mated message] 7-7) The system [employer] generated this result transmitted ref erence range: 0 - 20 m m/hr. The reference r ashley was not used to interpret this result as normal/abnor mal. Lab Interpretation (test Abnormal code = 33372-2) [facility] [id number] 22:32:19 Test Item Value Reference Range Interpretation Comments Sed Rate (test code = 83 See_Comment H [Auto mated message] 7-7) The system [employer] generated this result transmitted ref erence range: 0 - 20 m m/hr. The reference r ashley was not used to interpret this result as normal/abnor mal. Lab Interpretation (test Abnormal code = 70930-8) [facility] [id number] 22:32:19 Test Item Value Reference Range Interpretation Comments Sed Rate (test code = 83 See_Comment H [Auto mated message] 7-7) The system [employer] generated this result transmitted ref erence range: 0 - 20 m m/hr. The reference r ashley was not used to interpret this result as normal/abnor mal. Lab Interpretation (test Abnormal code = 49072-3) [facility] [id number] 22:32:19 Test Item Value Reference Range Interpretation Comments Sed Rate (test code = 83 See_Comment H [Auto mated message] 4537-7) The system [employer] generated this result transmitted ref erence range: 0 - 20 m m/hr. The reference r ashley was not used to interpret this result as normal/abnor mal. Lab Interpretation (test Abnormal code = 90699-6) [facility] [id number] 22:32:19 Test Item Value Reference Range Interpretation Comments Sed Rate (test code = 83 See_Comment H [Auto mated message] 4537-7) The system [employer] generated this result transmitted ref erence range: 0 - 20 m m/hr. The reference r ashley was not used to interpret this result as normal/abnor mal. Lab Interpretation (test Abnormal code = 08217-1) [facility] [id number] 22:32:19 Test Item Value Reference Range Interpretation Comments Sed Rate (test code = 83 See_Comment H [Auto mated message] 4537-7) The system [employer] generated this result transmitted ref erence range: 0 - 20 m m/hr. The reference r ashley was not used to interpret this result as normal/abnor mal. Lab Interpretation (test Abnormal code = 69181-6) [facility] [id number] 22:32:19 Test Item Value Reference Range Interpretation Comments Sed Rate (test code = 83 See_Comment H [Auto mated message] 4537-7) The system [employer] generated this result transmitted ref erence range: 0 - 20 m m/hr. The reference r ashley was not used to interpret this result as normal/abnor mal. Lab Interpretation (test Abnormal code = 47895-0) [facility] [id number] 22:32:19 Test Item Value Reference Range Interpretation Comments Sed Rate (test code = 83 See_Comment H [Auto mated message] 7-7) The system [employer] generated this result transmitted ref erence range: 0 - 20 m m/hr. The reference r ashley was not used to interpret this result as normal/abnor mal. Lab Interpretation (test Abnormal code = 87448-5) [facility] [id number] 22:32:19 Test Item Value Reference Range Interpretation Comments Sed Rate (test code = 83 See_Comment H [Auto mated message] 4537-7) The system [employer] generated this result transmitted ref erence range: 0 - 20 m m/hr. The reference r ashley was not used to interpret this result as normal/abnor mal. Lab Interpretation (test Abnormal code = 64529-2) [facility] [id number] 22:32:19 Test Item Value Reference Range Interpretation Comments Sed Rate (test code = 83 See_Comment H [Auto mated message] 5221-7) The system [employer] generated this result transmitted ref erence range: 0 - 20 m m/hr. The reference r ashley was not used to interpret this result as normal/abnor mal. Lab Interpretation (test Abnormal code = 38835-4) [facility] [id number] 22:32:19 Test Item Value Reference Range Interpretation Comments Sed Rate (test code = 83 See_Comment H [Auto mated message] 4107-7) The system [employer] generated this result transmitted ref erence range: 0 - 20 m m/hr. The reference r ashley was not used to interpret this result as normal/abnor mal. Lab Interpretation (test Abnormal code = 95591-3) [facility] [id number] 22:32:19 Test Item Value Reference Range Interpretation Comments Sed Rate (test code = 83 See_Comment H [Auto mated message] 9863-7) The system [employer] generated this result transmitted ref erence range: 0 - 20 m m/hr. The reference r ashley was not used to interpret this result as normal/abnor mal. Lab Interpretation (test Abnormal code = 22349-8) [facility] 21:13:34 Test Item Value Reference Range Interpretation Comments Procalcitonin (test 30.39 ng/mL <=0.08 H Procalci tonin > 2.00 code = 21422-5) ng/mL: Proca lcitonin levels above 2. 00 [...] extended diluti on as it exceeds the drive tester's recommended sweeney it. Caution should be exercised when interpreting limon ch values and done in conjunction [facility] clinical contex t. Lab Interpretation Abnormal (test code = 31642-1) [facility] 21:13:34 Test Item Value Reference Range Interpretation Comments Procalcitonin (test 30.39 ng/mL <=0.08 H Procalci tonin > 2.00 code = 19930-7) ng/mL: Proca lcitonin levels above 2. 00 [...] extended diluti on as it exceeds the drive tester's recommended sweeney it. Caution should be exercised when interpreting limon ch values and done in conjunction [facility] clinical contex t. Lab Interpretation Abnormal (test code = 62823-8) [facility] 21:13:34 Test Item Value Reference Range Interpretation Comments Procalcitonin (test 30.39 ng/mL <=0.08 H Procalci tonin > 2.00 code = 48531-3) ng/mL: Proca lcitonin levels above 2. 00 [...] extended diluti on as it exceeds the drive tester's recommended sweeney it. Caution should be exercised when interpreting limon ch values and done in conjunction [facility] clinical contex t. Lab Interpretation Abnormal (test code = 65461-4) [facility] 21:13:34 Test Item Value Reference Range Interpretation Comments Procalcitonin (test 30.39 ng/mL <=0.08 H Procalci tonin > 2.00 code = 77376-2) ng/mL: Proca lcitonin levels above 2. 00 [...] extended diluti on as it exceeds the drive tester's recommended sweeney it. Caution should be exercised when interpreting limon ch values and done in conjunction wit clinical contex t. Lab Interpretation Abnormal (test code = 16566-9) [facility] 21:13:34 Test Item Value Reference Range Interpretation Comments Procalcitonin (test 30.39 ng/mL <=0.08 H Procalci tonin > 2.00 code = 62110-4) ng/mL: Proca lcitonin levels above 2. 00 [...] extended diluti on as it exceeds the drive tester's recommended sweeney it. Caution should be exercised when interpreting limon ch values and done in conjunction [facility] clinical Mpayyx t. Lab Interpretation Abnormal (test code = 69276-4) [facility] 21:13:34 Test Item Value Reference Range Interpretation Comments Procalcitonin (test 30.39 ng/mL <=0.08 H Procalci tonin > 2.00 code = 90933-3) ng/mL: Proca lcitonin levels above 2. 00 [...] extended diluti on as it exceeds the drive tester's recommended sweeney it. Caution should be exercised when interpreting limon ch values and done in conjunction wit clinical contex t. Lab Interpretation Abnormal (test code = 44839-0) [facility] 21:13:34 Test Item Value Reference Range Interpretation Comments Procalcitonin (test 30.39 ng/mL <=0.08 H Procalci tonin > 2.00 code = 58672-4) ng/mL: Proca lcitonin levels above 2. 00 [...] extended diluti on as it exceeds the drive tester's recommended sweeney it. Caution should be exercised when interpreting limon ch values and done in conjunction wit clinical contex t. Lab Interpretation Abnormal (test code = 44285-2) [facility] 21:13:34 Test Item Value Reference Range Interpretation Comments Procalcitonin (test 30.39 ng/mL <=0.08 H Procalci tonin > 2.00 code = 08217-8) ng/mL: Proca lcitonin levels above 2. 00 [...] extended diluti on as it exceeds the drive tester's recommended sweeney it. Caution should be exercised when interpreting limon ch values and done in conjunction [facility] clinical contex t. Lab Interpretation Abnormal (test code = 73330-4) [facility] 21:13:34 Test Item Value Reference Range Interpretation Comments Procalcitonin (test 30.39 ng/mL <=0.08 H Procalci tonin > 2.00 code = 57566-6) ng/mL: Proca lcitonin levels above 2. 00 [...] extended diluti on as it exceeds the drive tester's recommended sweeney it. Caution should be exercised when interpreting limon ch values and done in conjunction wit [employer] t. Lab Interpretation Abnormal (test code = 19837-2) [facility] [id number] 21:13:34 Test Item Value Reference Range Interpretation Comments Procalcitonin (test 30.39 ng/mL <=0.08 H Procalci tonin > 2.00 code = 86269-9) ng/mL: Proca lcitonin levels above 2. 00 [...] extended diluti on as it exceeds the drive tester's recommended sweeney it. Caution should be exercised when interpreting limon ch values and done in conjunction [facility] [employer] t. Lab Interpretation Abnormal (test code = 68311-4) [facility] 21:13:34 Test Item Value Reference Range Interpretation Comments Procalcitonin (test 30.39 ng/mL <=0.08 H Procalci tonin > 2.00 code = 11966-2) ng/mL: Proca lcitonin levels above 2. 00 [...] extended diluti on as it exceeds the drive tester's recommended sweeney it. Caution should be exercised when interpreting limon ch values and done in conjunction wit clinical contex t. Lab Interpretation Abnormal (test code = 56131-4) [facility] 21:13:34 Test Item Value Reference Range Interpretation Comments Procalcitonin (test 30.39 ng/mL <=0.08 H Procalci tonin > 2.00 code = 50598-6) ng/mL: Proca lcitonin levels above 2. 00 [...] extended diluti on as it exceeds the drive tester's recommended sweeney it. Caution should be exercised when interpreting limon ch values and done in conjunction wit clinical contex t. Lab Interpretation Abnormal (test code = 86015-0) [facility] 21:13:34 Test Item Value Reference Range Interpretation Comments Procalcitonin (test 30.39 ng/mL <=0.08 H Procalci tonin > 2.00 code = 21981-0) ng/mL: Proca lcitonin levels above 2. 00 [...] extended diluti on as it exceeds the drive tester's recommended sweeney it. Caution should be exercised when interpreting limon ch values and done in conjunction [facility] clinical contex t. Lab Interpretation Abnormal (test code = 88499-0) [facility] 21:13:34 Test Item Value Reference Range Interpretation Comments Procalcitonin (test 30.39 ng/mL <=0.08 H Procalci tonin > 2.00 code = 49383-9) ng/mL: Proca lcitonin levels above 2. 00 [...] extended diluti on as it exceeds the drive tester's recommended sweeney it. Caution should be exercised when interpreting limon ch values and done in conjunction [facility] clinical contex t. Lab Interpretation Abnormal (test code = 50375-6) [facility] 21:13:34 Test Item Value Reference Range Interpretation Comments Procalcitonin (test 30.39 ng/mL <=0.08 H Procalci tonin > 2.00 code = 84099-0) ng/mL: Proca lcitonin levels above 2. 00 [...] extended diluti on as it exceeds the drive tester's recommended sweeney it. Caution should be exercised when interpreting limon ch values and done in conjunction [facility] clinical contex t. Lab Interpretation Abnormal (test code = 45566-3) [facility] 21:13:34 Test Item Value Reference Range Interpretation Comments Procalcitonin (test 30.39 ng/mL <=0.08 H Procalci tonin > 2.00 code = 06944-8) ng/mL: Proca lcitonin levels above 2. 00 [...] extended diluti on as it exceeds the drive tester's recommended sweeney it. Caution should be exercised when interpreting limon ch values and done in conjunction wit h clinical contex t. Lab Interpretation Abnormal (test code = 60614-8) [place] 25963023-01-31 20:44:04 Test Item Value Reference Range Interpretation Comments CRP (test code = 239.41 mg/[place] [address]-6) CRP assay are a s follows: Reference range s when used to assess cardi ac risk: <1.00 mg/L Low cardiovascular risk 1.00-3.00 mg/L Average cardiovascular risk >3.00 mg/L High cardi ovascular risk.Reference ranges when used to assess inflammatory re sponses: Less than or eq ual to 10.00 mg/L. [facility] 20:44:04 Test Item Value Reference Range Interpretation Comments CRP (test code = 239.41 mg/[place] [address]-4) CRP assay are a s follows: Reference range s when used to assess cardi ac risk: <1.00 mg/L Low cardiovascular risk 1.00-3.00 mg/L Average cardiovascular risk >3.00 mg/L High cardi ovascular risk.Reference ranges when used to assess inflammatory re sponses: Less than or eq ual to 10.00 mg/L. [facility] 20:44:04 Test Item Value Reference Range Interpretation Comments CRP (test code = 239.41 mg/[place] [address]-8) CRP assay are a s follows: Reference range s when used to assess cardi ac risk: <1.00 mg/L Low cardiovascular risk 1.00-3.00 mg/L Average cardiovascular risk >3.00 mg/L High cardi ovascular risk.Reference ranges when used to assess inflammatory re sponses: Less than or eq ual to 10.00 mg/L. [facility]04 Test Item Value Reference Range Interpretation Comments CRP (test code = 239.41 mg/[place] [address]-8) CRP assay are a s follows: Reference range s when used to assess cardi ac risk: <1.00 mg/L Low cardiovascular risk 1.00-3.00 mg/L Average cardiovascular risk >3.00 mg/L High cardi ovascular risk.Reference ranges when used to assess inflammatory re sponses: Less than or eq ual to 10.00 mg/L. [facility] 20:44:04 Test Item Value Reference Range Interpretation Comments CRP (test code = 239.41 mg/[place] [address]-1) CRP assay are a s follows: Reference range s when used to assess cardi ac risk: <1.00 mg/L Low cardiovascular risk 1.00-3.00 mg/L Average cardiovascular risk >3.00 mg/L High cardi ovascular risk.Reference ranges when used to assess inflammatory re sponses: Less than or eq ual to 10.00 mg/L. [facility] 20:44:04 Test Item Value Reference Range Interpretation Comments CRP (test code = 239.41 mg/[place] [address]-1) CRP assay are a s follows: Reference range s when used to assess cardi ac risk: <1.00 mg/L Low cardiovascular risk 1.00-3.00 mg/L Average cardiovascular risk >3.00 mg/L High cardi ovascular risk.Reference ranges when used to assess inflammatory re sponses: Less than or eq ual to 10.00 mg/L. [facility] 20:44:04 Test Item Value Reference Range Interpretation Comments CRP (test code = 239.41 mg/[place] [address]-1) CRP assay are a s follows: Reference range s when used to assess cardi ac risk: <1.00 mg/L Low cardiovascular risk 1.00-3.00 mg/L Average cardiovascular risk >3.00 mg/L High cardi ovascular risk.Reference ranges when used to assess inflammatory re sponses: Less than or eq ual to 10.00 mg/L. [facility]04 Test Item Value Reference Range Interpretation Comments CRP (test code = 239.41 mg/[place] [address]-5) CRP assay are a s follows: Reference range s when used to assess cardi ac risk: <1.00 mg/L Low cardiovascular risk 1.00-3.00 mg/L Average cardiovascular risk >3.00 mg/L High cardi ovascular risk.Reference ranges when used to assess inflammatory re sponses: Less than or eq ual to 10.00 mg/L. [facility] 20:44:04 Test Item Value Reference Range Interpretation Comments CRP (test code = 239.41 mg/[place] [address]-9) CRP assay are a s follows: Reference range s when used to assess cardi ac risk: <1.00 mg/L Low cardiovascular risk 1.00-3.00 mg/L Average cardiovascular risk >3.00 mg/L High cardi ovascular risk.Reference ranges when used to assess inflammatory re sponses: Less than or eq ual to 10.00 mg/L. [facility] 20:44:04 Test Item Value Reference Range Interpretation Comments CRP (test code = 239.41 mg/[place] [address]-8) CRP assay are a s follows: Reference range s when used to assess cardi ac risk: <1.00 mg/L Low cardiovascular risk 1.00-3.00 mg/L Average cardiovascular risk >3.00 mg/L High cardi ovascular risk.Reference ranges when used to assess inflammatory re sponses: Less than or eq ual to 10.00 mg/L. [facility] 20:44:04 Test Item Value Reference Range Interpretation Comments CRP (test code = 239.41 mg/[place] [address]-8) CRP assay are a s follows: Reference range s when used to assess cardi ac risk: <1.00 mg/L Low cardiovascular risk 1.00-3.00 mg/L Average cardiovascular risk >3.00 mg/L High cardi ovascular risk.Reference ranges when used to assess inflammatory re sponses: Less than or eq ual to 10.00 mg/L. [place] [id number] 20:44:04 Test Item Value Reference Range Interpretation Comments CRP (test code = 239.41 mg/[place] [address]-3) CRP assay are a s follows: Reference range s when used to assess cardi ac risk: <1.00 mg/L Low cardiovascular risk 1.00-3.00 mg/L Average cardiovascular risk >3.00 mg/L High cardi ovascular risk.Reference ranges when used to assess inflammatory re sponses: Less than or eq ual to 10.00 mg/L. [place] [id number] 20:44:04 Test Item Value Reference Range Interpretation Comments CRP (test code = 239.41 mg/[place] [address]-1) CRP assay are a s follows: Reference range s when used to assess cardi ac risk: <1.00 mg/L Low cardiovascular risk 1.00-3.00 mg/L Average cardiovascular risk >3.00 mg/L High cardi ovascular risk.Reference ranges when used to assess inflammatory re sponses: Less than or eq ual to 10.00 mg/L. [facility] 20:44:04 Test Item Value Reference Range Interpretation Comments CRP (test code = 239.41 mg/[place] [address]-3) CRP assay are a s follows: Reference range s when used to assess cardi ac risk: <1.00 mg/L Low cardiovascular risk 1.00-3.00 mg/L Average cardiovascular risk >3.00 mg/L High cardi ovascular risk.Reference ranges when used to assess inflammatory re sponses: Less than or eq ual to 10.00 mg/L. [place] [id number] 20:44:04 Test Item Value Reference Range Interpretation Comments CRP (test code = 239.41 mg/[place] [address]-2) CRP assay are a s follows: Reference range s when used to assess cardi ac risk: <1.00 mg/L Low cardiovascular risk 1.00-3.00 mg/L Average cardiovascular risk >3.00 mg/L High cardi ovascular risk.Reference ranges when used to assess inflammatory re sponses: Less than or eq ual to 10.00 mg/L. [facility] Test Item Value Reference Range Interpretation Comments CRP (test code = 239.41 mg/[place] [address]-1) CRP assay are a s follows: Reference range s when used to assess cardi ac risk: <1.00 mg/L Low cardiovascular risk 1.00-3.00 mg/L Average cardiovascular risk >3.00 mg/L High cardi ovascular risk.Reference ranges when used to assess inflammatory re sponses: Less than or eq ual to 10.00 mg/L. [facility] 18:24:20 Test Item Value Reference Range Interpretation Comments NT ProBNP (test code = 70446-9) 3186 pg/mL <=125 H Lab Interpretation (test code = Abnormal 75247-7) [facility] 18:24:20 Test Item Value Reference Range Interpretation Comments NT ProBNP (test code = 65213-2) 3186 pg/mL <=125 H Lab Interpretation (test code = Abnormal 97162-2) [facility] 18:24:20 Test Item Value Reference Range Interpretation Comments NT ProBNP (test code = 07210-7) 3186 pg/mL <=125 H Lab Interpretation (test code = Abnormal 46883-5) [facility] 18:24:20 Test Item Value Reference Range Interpretation Comments NT ProBNP (test code = 18908-0) 3186 pg/mL <=125 H Lab Interpretation (test code = Abnormal 82102-3) [facility] 18:24:20 Test Item Value Reference Range Interpretation Comments NT ProBNP (test code = 15950-8) 3186 pg/mL <=125 H Lab Interpretation (test code = Abnormal 73606-7) [facility] 18:24:20 Test Item Value Reference Range Interpretation Comments NT ProBNP (test code = 26856-9) 3186 pg/mL <=125 H Lab Interpretation (test code = Abnormal 85779-8) [facility] 18:24:20 Test Item Value Reference Range Interpretation Comments NT ProBNP (test code = 83180-4) 3186 pg/mL <=125 H Lab Interpretation (test code = Abnormal 86058-3) [facility] 17:39:44 Test Item Value Reference Range Interpretation Comments Fibrinogen (test code = 3255-7) 697 mg/dL 214-503 H Lab Interpretation (test code = Abnormal 65220-4) [facility] 17:39:44 Test Item Value Reference Range Interpretation Comments Fibrinogen (test code = 3255-7) 697 mg/dL 214-503 H Lab Interpretation (test code = Abnormal 51615-6) [facility] 17:39:44 Test Item Value Reference Range Interpretation Comments Fibrinogen (test code = 3255-7) 697 mg/dL 214-503 H Lab Interpretation (test code = Abnormal 93420-4) [facility] 17:39:44 Test Item Value Reference Range Interpretation Comments Fibrinogen (test code = 3255-7) 697 mg/dL 214-503 H Lab Interpretation (test code = Abnormal 89673-4) [facility] 17:39:44 Test Item Value Reference Range Interpretation Comments Fibrinogen (test code = 3255-7) 697 mg/dL 214-503 H Lab Interpretation (test code = Abnormal 87184-1) [facility] 17:39:44 Test Item Value Reference Range Interpretation Comments Fibrinogen (test code = 3255-7) 697 mg/dL 214-503 H Lab Interpretation (test code = Abnormal 64360-4) [facility] 17:39:44 Test Item Value Reference Range Interpretation Comments Fibrinogen (test code = 3255-7) 697 mg/dL 214-503 H Lab Interpretation (test code = Abnormal 55593-6) [facility] 17:39:44 Test Item Value Reference Range Interpretation Comments Fibrinogen (test code = 3255-7) 697 mg/dL 214-503 H Lab Interpretation (test code = Abnormal 91267-2) [facility] 17:39:44 Test Item Value Reference Range Interpretation Comments Fibrinogen (test code = 3255-7) 697 mg/dL 214-503 H Lab Interpretation (test code = Abnormal 87099-2) [facility]2023-01-31 17:39:44 Test Item Value Reference Range Interpretation Comments Fibrinogen (test code = 3255-7) 697 mg/dL 214-503 H Lab Interpretation (test code = Abnormal 64255-0) [facility] 17:39:44 Test Item Value Reference Range Interpretation Comments Fibrinogen (test code = 3255-7) 697 mg/dL 214-503 H Lab Interpretation (test code = Abnormal 02714-4) [facility] 17:39:44 Test Item Value Reference Range Interpretation Comments Fibrinogen (test code = 3255-7) 697 mg/dL 214-503 H Lab Interpretation (test code = Abnormal 60396-7) [facility] 17:39:44 Test Item Value Reference Range Interpretation Comments Fibrinogen (test code = 3255-7) 697 mg/dL 214-503 H Lab Interpretation (test code = Abnormal 88758-3) [facility] 17:39:44 Test Item Value Reference Range Interpretation Comments Fibrinogen (test code = 3255-7) 697 mg/dL 214-503 H Lab Interpretation (test code = Abnormal 11419-5) [facility]2023-01-31 17:39:44 Test Item Value Reference Range Interpretation Comments Fibrinogen (test code = 3255-7) 697 mg/dL 214-503 H Lab Interpretation (test code = Abnormal 94400-0) [facility] 17:39:44 Test Item Value Reference Range Interpretation Comments Fibrinogen (test code = 3255-7) 697 mg/dL 214-503 H Lab Interpretation (test code = Abnormal 26620-8) [facility] Chem [id number] 16:07:54 Test Item Value Reference Range Interpretation Comments POC NA (test code = 145 See_Comment [Automa eugene message] 2947-0) The system [employer] generated this result transmitted ref erence range: [...] chemic ally sensitive biose nsors on a [employer] ip that are config ured to perform [...] See_Comment [Automa eugene message] 2068-04) The system [employer] generated this result transmitted ref erence range: 98 - 109 mEq/L. The refe rence range was not u sed to interpret this result as normal/abnor mal. POC ATCO2 (test code 27 See_Comment [Autom ated message] = 2025-04) The system [employer] generated this result transmitted ref erence range: 23 - 27 mEq/L. The reference r ashley was not used to interpret this result as normal/abnor mal. POC Anion Gap (test 19 mmol/L 10-20 code = 83607) POC BUN (test code = 7 mg/dL 8-26 L 6299-2) POC Crea (test code 0.4 mg/dL 0.6-1.3 L Medicati ons, = 30853-0) especially hydroxyurea or supplements, limon ch as [...] chemic ally sensitive biose nsors on a [employer] ip that are config ured to perform spec ific tests. The microfabricated sensors measure analyte concent ration by an electroch emical assay. POC EGFR (test code 141 See_Comment The eGFR cr is = 29854) calculated with the 2020 CKD-EPI creatinine equa [...] CK D. [Automated mess age] The system Local Dirtic h generated this result transmitted ref erence [...] MDA Main Main Ca mpus code = 05408) [facility] Cli nical Lab, [address], [facility], [place] [address]; Hi Lift Operator: Guerline Olmstead MD; Waived Point of Care Testing - Luz Maria levi MD Lab Interpretation Abnormal (test code = 86859-5) [facility] Chem [id number] 16:07:54 Test Item Value Reference Range Interpretation Comments POC NA (test code = 145 See_Comment [Automa eugene message] 2946-0) The system [employer] generated this result transmitted ref erence range: 138 - 14 6 mEq/L. The refe rence range was not u sed to interpret this result as normal/abnor mal. POC K (test code = 3.1 See_Comment L Method de scription: 3798-4) The i-STAT is a n analyzer used f or in vitro quantific ation of various anal ytes in whole blood. The device uses a s jose a disposable cart ridge which contains microfabricated sensors, a calibration dixie ution, fluidics system , and a waste chamber . Each test cartridge contains chemic ally sensitive biose nsors on a [employer] ip that are config ured to perform [...] See_Comment [Automa eugene message] 2068-04) The system [employer] generated this result transmitted ref erence range: 98 - 109 mEq/L. The refe rence range was not u sed to interpret this result as normal/abnor mal. POC ATCO2 (test code 27 See_Comment [Autom ated message] = 2025-04) The system [employer] generated this result transmitted ref erence range: 23 - 27 mEq/L. The reference r ashley was not used to interpret this result as normal/abnor mal. POC Anion Gap (test 19 mmol/L 10-20 code = 92526) POC BUN (test code = 7 mg/dL 8-26 L 6299-2) POC Crea (test code 0.4 mg/dL 0.6-1.3 L Medicati ons, = 65626-6) especially hydroxyurea or supplements, limon ch as [...] chemic ally sensitive biose nsors on a [employer] ip that are config ured to perform spec ific tests. The microfabricated sensors measure analyte concent ration by an electroch emical assay. POC EGFR (test code 141 See_Comment The eGFR cr is = 30289) calculated with the 2020 CKD-EPI creatinine equa [...] CK D. [Automated mess age] The system Local Dirtic h generated this result transmitted ref erence [...] MDA Main Main Ca mpus code = 88005) [facility] Cli nical Lab, [address] [facility], [place] [address]; Hi Lift Operator: Guerline Olmstead MD; Waived Point of Care Testing - Luz Maria levi MD Lab Interpretation Abnormal (test code = 96611-3) [facility] [id number] 16:07:54 Test Item Value Reference Range Interpretation [...] chemic ally sensitive biose nsors on a Mer[employer] ip that are config ured to perform [...] See_Comment [Automa eugene message] 2068-04) The system [employer] generated this result transmitted ref erence range: 98 - 109 mEq/L. The refe rence range was not u sed to interpret this result as normal/abnor mal. POC ATCO2 (test code 27 See_Comment [Autom ated message] = 2025-04) The system [employer] generated this result transmitted ref erence range: 23 - 27 mEq/L. The reference r ashley was not used to interpret this result as normal/abnor mal. POC Anion Gap (test 19 mmol/L 10-20 code = 64902) POC BUN (test code = 7 mg/dL 8-26 L 6299-2) POC Crea (test code 0.4 mg/dL 0.6-1.3 L Medicati ons, = 03039-5) especially hydroxyurea or supplements, limon ch as [...] chemic ally sensitive biose nsors on a Mer[employer] ip that are config ured to perform spec ific tests. The microfabricated sensors measure analyte concent ration by an electroch emical assay. POC EGFR (test code 141 See_Comment The eGFR cr is = 66829) calculated with the 2020 CKD-EPI creatinine equa [...] CK D. [Automated mess age] The system [employer] generated this result transmitted ref erence range: [...] MDA Main Main Ca mpus code = 46135) [facility] [address] [facility] [address], [facility], [place] [address]; Hi Lift Operator: Guerline Olmstead MD; Waived Point of Care Testing - Luz Maria levi MD Lab Interpretation Abnormal (test code = 12620-8) [facility] Chem [id number] 16:07:54 Test Item Value Reference Range Interpretation Comments POC NA (test code = 145 See_Comment [Automa eugene message] 6857-0) The system [employer] generated this result transmitted ref erence range: [...] chemic ally sensitive biose nsors on a Meritful ip that are config ured to perform [...] See_Comment [Automa eugene message] 2068-04) The system [employer] generated this result transmitted ref erence range: 98 - 109 mEq/L. The refe rence range was not u sed to interpret this result as normal/abnor mal. POC ATCO2 (test code 27 See_Comment [Autom ated message] = 2025-04) The system [employer] generated this result transmitted ref erence range: 23 - 27 mEq/L. The reference r ashley was not used to interpret this result as normal/abnor mal. POC Anion Gap (test 19 mmol/L -20 code = 35714) POC BUN (test code = 7 mg/dL 8-26 L 6299-2) POC Crea (test code 0.4 mg/dL 0.6-1.3 L Medicati ons, = 13727-9) especially hydroxyurea or supplements, limon ch as [...] chemic ally sensitive biose nsors on a Meritful ip that are config ured to perform spec ific tests. The microfabricated sensors measure analyte concent ration by an electroch emical assay. POC EGFR (test code 141 See_Comment The eGFR cr is = 29926) calculated with the 2020 CKD-EPI creatinine equa [...] CK D. [Automated mess age] The system [employer] generated this result transmitted ref erence range: [...] Hct (test code = 38.0 % 38.0-51.0 80) POC Hgb (test code = 12.9 See_Comment [...] MDA Main Main Ca mpus code = 42230) [facility] Cli nical Lab, [address] [facility] [address], [place] [address]; Hi Lift Operator: Guerline Olmstead MD; Waived Point of Care Testing - Luz Maria levi MD Lab Interpretation Abnormal (test code = 36646-2) [facility] Chem [id number] 16:07:54 Test Item Value Reference Range Interpretation Comments POC NA (test code = 145 See_Comment [Automa eugene message] 7-0) The system [employer] generated this result transmitted ref erence range: [...] chemic ally sensitive biose nsors on a Meritful ip that are config ured to perform [...] See_Comment [Automa eugene message] 2068-04) The system [employer] generated this result transmitted ref erence range: 98 - 109 mEq/L. The refe rence range was not u sed to interpret this result as normal/abnor mal. POC ATCO2 (test code 27 See_Comment [Autom ated message] = 2025-04) The system [employer] generated this result transmitted ref erence range: 23 - 27 mEq/L. The reference r ashley was not used to interpret this result as normal/abnor mal. POC Anion Gap (test 19 mmol/L 10-20 code = 42079) POC BUN (test code = 7 mg/dL 8-26 L 6299-2) POC Crea (test code 0.4 mg/dL 0.6-1.3 L Medicati ons, = 99245-3) especially hydroxyurea or supplements, limon ch as [...] chemic ally sensitive biose nsors on a Mer[employer] ip that are config ured to perform spec ific tests. The microfabricated sensors measure analyte concent ration by an electroch emical assay. POC EGFR (test code 141 See_Comment The eGFR cr is = 02933) calculated with the 2020 CKD-EPI creatinine equa [...] CK D. [Automated mess age] The system whic h generated this result [...] MDA Main Main Ca mpus code = 78848) [facility] Cli nical Lab, [address] [facility], [place] [address]; Hi Lift Operator: Guerline Olmstead MD; Waived Point of Care Testing - Luz Maria levi MD Lab Interpretation Abnormal (test code = 16979-5) [facility] Chem [id number] 16:07:54 Test Item Value Reference Range Interpretation Comments POC NA (test code = 145 See_Comment [Automa eugene message] 2947-0) The system Local Dirtic Heekya generated this result transmitted ref erence range: [...] which contains microfabricated sensors, a calibration dixie [employer], fluidics system , and a waste chamber . Each test cartridge contains chemic ally sensitive biose nsors on a Meritful ip that are config ured to perform [...] See_Comment [Automa eugene message] 2068-04) The system [employer] generated this result transmitted ref erence range: 98 - 109 mEq/L. The refe rence range was not u sed to interpret this result as normal/abnor mal. POC ATCO2 (test code 27 See_Comment [Autom ated message] = 2025-04) The system [employer] generated this result transmitted ref erence range: 23 - 27 mEq/L. The reference r ashley was not used to interpret this result as normal/abnor mal. POC Anion Gap (test 19 mmol/L 10-20 code = 97426) POC BUN (test code = 7 mg/dL 8-26 L 6299-2) POC Crea (test code 0.4 mg/dL 0.6-1.3 L Medicati ons, = 19400-1) especially hydroxyurea or supplements, limon ch as [...] which contains microfabricated sensors, a calibration dixie [employer], fluidics system , and a waste chamber . Each test cartridge contains chemic ally sensitive biose nsors on a Merit[employer] ip that are config ured to perform spec ific tests. The microfabricated sensors measure analyte concent ration by an electroch emical assay. POC EGFR (test code 141 See_Comment The eGFR cr is = 35934) calculated with the 2020 CKD-EPI creatinine equa [...] CK D. [Automated mess age] The system [employer] generated this result transmitted ref erence range: [...] Hct (test code = 38.0 % 38.0-51.0 0980) POC Hgb (test code = 12.9 See_Comment Hematoc rit values 5882) from the iSTAT are determined conductometrica lly, [...] MDA Main Main Ca mpus code = 56891) [facility] Cli nical Lab, [address] [facility] [address], [place] [address]; Hi Lift Operator: Guerline Olmstead MD; Waived Point of Care Testing - Luz Maria levi MD Lab Interpretation Abnormal (test code = 85775-0) [facility] Chem [id number] 16:07:54 Test Item Value Reference Range Interpretation Comments POC NA (test code = 145 See_Comment [Automa eugene message] 0067-0) The system giddy h generated this result transmitted ref erence [...] which contains microfabricated sensors, a calibration dixie [employer], fluidics system , and a waste chamber . Each test cartridge contains chemic ally sensitive biose nsors on a Meritful ip that are config ured to perform [...] See_Comment [Automa eugene message] 2068-04) The system [employer] generated this result transmitted ref erence range: 98 - 109 mEq/L. The refe rence range was not u sed to interpret this result as normal/abnor mal. POC ATCO2 (test code 27 See_Comment [Autom ated message] = 2025-04) The system [employer] generated this result transmitted ref erence range: 23 - 27 mEq/L. The reference r ashley was not used to interpret this result as normal/abnor mal. POC Anion Gap (test 19 mmol/L 10-20 code = 91960) POC BUN (test code = 7 mg/dL 8-26 L 6299-2) POC Crea (test code 0.4 mg/dL 0.6-1.3 L Medicati ons, = 53816-4) especially hydroxyurea or supplements, limon ch as [...] ridge which contains microfabricated sensors, a calibration [employer] fluidics system , and a waste chamber . Each test cartridge contains chemic ally sensitive biose nsors on a Meritful ip that are config ured to perform spec ific tests. The microfabricated sensors measure analyte concent ration by an electroch emical assay. POC EGFR (test code 141 See_Comment The eGFR cr is = 96739) calculated with the 2020 CKD-EPI creatinine equa [...] CK D. [Automated mess age] The system [employer] generated this result transmitted ref erence range: [...] MDA Main Main Ca mpus code = 42870) [facility] Cli nical Lab, [address], [facility], [place] [address]; Hi Lift Operator: Guerline Olmstead MD; Waived Point of Care Testing - Luz Maria levi MD Lab Interpretation Abnormal (test code = 92955-2) [facility] Chem [id number] 16:07:54 Test Item Value Reference Range Interpretation Comments POC NA (test code = 145 See_Comment [Automa eugene message] 2947-0) The system [employer] generated this result transmitted ref erence range: [...] whole blood. The device uses a s [employer] disposable cart ridge which contains microfabricated sensors, a calibration dixie ution, fluidics system , and a waste chamber . Each test cartridge contains chemic ally sensitive biose nsors on a Meritful ip that are config ured to perform [...] See_Comment [Automa eugene message] 2068-04) The system [employer] generated this result transmitted ref erence range: 98 - 109 mEq/L. The refe rence range was not u sed to interpret this result as normal/abnor mal. POC ATCO2 (test code 27 See_Comment [Autom ated message] = 2025-04) The system [employer] generated this result transmitted ref erence range: 23 - 27 mEq/L. The reference r ashley was not used to interpret this result as normal/abnor mal. POC Anion Gap (test 19 mmol/L 10-20 code = 47492) POC BUN (test code = 7 mg/dL 8-26 L 6299-2) POC Crea (test code 0.4 mg/dL 0.6-1.3 L Medicati ons, = 21367-6) especially hydroxyurea or supplements, limon ch as [...] chemic ally sensitive biose nsors on a Meritful ip that are config ured to perform spec ific tests. The microfabricated sensors measure analyte concent ration by an electroch emical assay. POC EGFR (test code 141 See_Comment The eGFR cr is = 77741) calculated with the 2020 CKD-EPI creatinine equa [...] CK D. [Automated mess age] The system [employer] generated this result transmitted ref erence range: [...] MDA Main Main Ca mpus code = 47291) [facility] Cli nical Lab, [address], [facility], [place] [address]; Hi Lift Operator: Guerline Olmstead MD; Waived Point of Care Testing - Luz Maria levi MD Lab Interpretation Abnormal (test code = 88428-8) [facility] Chem [id number] 16:07:54 Test Item Value Reference Range Interpretation Comments POC NA (test code = 145 See_Comment [Automa eugene message] 2947-0) The system [employer] generated this result transmitted ref erence range: [...] chemic ally sensitive biose nsors on a Meritful ip that are config ured to perform [...] See_Comment [Automa eugene message] 2068-04) The system [employer] generated this result transmitted ref erence range: 98 - 109 mEq/L. The refe rence range was not u sed to interpret this result as normal/abnor mal. POC ATCO2 (test code 27 See_Comment [Autom ated message] = 2025-04) The system [employer] generated this result transmitted ref erence range: 23 - 27 mEq/L. The reference r ashley was not used to interpret this result as normal/abnor mal. POC Anion Gap (test 19 mmol/L 10-20 code = 73381) POC BUN (test code = 7 mg/dL 8-26 L 6299-2) POC Crea (test code 0.4 mg/dL 0.6-1.3 L Medicati ons, = 38251-8) especially hydroxyurea or supplements, limon ch as [...] ally sensitive biose nsors on a silicon ch ip that are config ured to perform spec ific tests. The microfabricated sensors measure analyte concent ration by an electroch emical assay. POC EGFR (test code 141 See_Comment The eGFR cr is = 86460) calculated with the 2020 CKD-EPI creatinine equa [...] CK D. [Automated mess age] The system [employer] generated this result transmitted ref erence range: [...] MDA Main Main Ca mpus code = 53910) [facility] Cli nical Lab, [address] [facility], [facility], [place] [address]; Hi Lift Operator: Guerline Olmstead MD; Waived Point of Care Testing - Luz Maria levi MD Lab Interpretation Abnormal (test code = 14031-6) [facility] [id number] 16:07:54 Test Item Value Reference Range Interpretation Comments POC NA (test code = 145 See_Comment [Automa eugene message] 2947-0) The system giddy h generated this result transmitted ref erence [...] chemic ally sensitive biose nsors on a Meritful ip that are config ured to perform [...] See_Comment [Automa eugene message] 2068-04) The system [employer] generated this result transmitted ref erence range: 98 - 109 mEq/L. The refe rence range was not u sed to interpret this result as normal/abnor mal. POC ATCO2 (test code 27 See_Comment [Autom ated message] = 2025-04) The system [employer] generated this result transmitted ref erence range: 23 - 27 mEq/L. The reference r ashley was not used to interpret this result as normal/abnor mal. POC Anion Gap (test 19 mmol/L - code = 73354) POC BUN (test code = 7 mg/dL 8-26 L 6299-2) POC Crea (test code 0.4 mg/dL 0.6-1.3 L Medicati ons, = 55403-4) especially hydroxyurea or supplements, limon ch as [...] which contains microfabricated sensors, a calibration dixie [employer], fluidics system , and a waste chamber . Each test cartridge contains chemic ally sensitive biose nsors on a Meritful ip that are config ured to perform spec ific tests. The microfabricated sensors measure analyte concent ration by an electroch emical assay. POC EGFR (test code 141 See_Comment The eGFR cr is = 11439) calculated with the 2020 CKD-EPI creatinine equa [...] CK D. [Automated mess age] The system [employer] generated this result transmitted ref erence range: [...] MDA Main Main Ca mpus code = 56036) [facility] Cli nical Lab, [address], [facility], [place] [address]; Hi Lift Operator: Guerline Olmstead MD; Waived Point of Care Testing - Luz Maria levi MD Lab Interpretation Abnormal (test code = 91650-1) [facility] Chem [id number] 16:07:54 Test Item Value Reference Range Interpretation Comments POC NA (test code = 145 See_Comment [Automa eugene message] 2946-0) The system [employer]is[employer] generated this result transmitted ref erence range: [...] which contains microfabricated sensors, a calibration dixie [employer], fluidics system , and a waste chamber . Each test cartridge contains chemic ally sensitive biose nsors on a Meritful ip that are config ured to perform [...] See_Comment [Automa eugene message] 2068-04) The system [employer] generated this result transmitted ref erence range: 98 - 109 mEq/L. The refe rence range was not u sed to interpret this result as normal/abnor mal. POC ATCO2 (test code 27 See_Comment [Autom ated message] = 2025-04) The system [employer] generated this result transmitted ref erence range: 23 - 27 mEq/L. The reference r ashley was not used to interpret this result as normal/abnor mal. POC Anion Gap (test 19 mmol/L 10-20 code = 74225) POC BUN (test code = 7 mg/dL 8-26 L 6299-2) POC Crea (test code 0.4 mg/dL 0.6-1.3 L Medicati ons, = 49004-3) especially hydroxyurea or supplements, limon ch as [...] chemic ally sensitive biose nsors on a Meritful ip that are config ured to perform spec ific tests. The microfabricated sensors measure analyte concent ration by an electroch emical assay. POC EGFR (test code 141 See_Comment The eGFR cr is = 36875) calculated with the 2020 CKD-EPI creatinine equa [...] CK D. [Automated mess age] The system Local [employer] h generated this result transmitted ref erence [...] MDA Main Main Ca mpus code = 33167) [facility] Cli nical Lab, [address], [facility], [place] [address]; Hi Lift Operator: Guerline Olmstead MD; Waived Point of Care Testing - Luz Maria levi MD Lab Interpretation Abnormal (test code = 59093-1) [facility] Chem [id number] 16:07:54 Test Item Value Reference Range Interpretation Comments POC NA (test code = 145 See_Comment [Automa eugene message] 2946-0) The system [employer] generated this result transmitted ref erence range: 138 - 14 6 mEq/L. The refe rence range was not u sed to interpret this result as normal/abnor mal. POC K (test code = 3.1 See_Comment L Method de scription: 6398-4) The i-STAT is a n analyzer used f or in vitro quantific ation of various anal ytes in whole blood. The device uses a s jose a disposable cart ridge which contains microfabricated sensors, a calibration dixie ution, fluidics system , and a waste chamber . Each test cartridge contains chemic ally sensitive biose nsors on a Meritful ip that are config ured to perform [...] CL (test code = 103 See_Comment [Automa euegne message] 2068-04) The system [employer] generated this result transmitted ref erence range: 98 - 109 mEq/L. The refe rence range was not u sed to interpret this result as normal/abnor mal. POC ATCO2 (test code 27 See_Comment [Autom ated message] = 2025-04) The system [employer] generated this result transmitted ref erence range: 23 - 27 mEq/L. The reference r ashley was not used to interpret this result as normal/abnor mal. POC Anion Gap (test 19 mmol/L 10-20 code = 40634) POC BUN (test code = 7 mg/dL 8-26 L 6299-2) POC Crea (test code 0.4 mg/dL 0.6-1.3 L Medicati ons, = 64522-0) especially hydroxyurea or supplements, limon ch as [...] chemic ally sensitive biose nsors on a Meritful ip that are config ured to perform spec ific tests. The microfabricated sensors measure analyte concent ration by an electroch emical assay. POC EGFR (test code 141 See_Comment The eGFR cr is = 26704) calculated with the 2020 CKD-EPI creatinine equa [...] CK D. [Automated mess age] The system Local Dirtic h generated this result transmitted ref erence [...] MDA Main Main Ca mpus code = 77124) [facility] Cli nical Lab, [address] [facility], [place] [address]; Hi Lift Operator: Guerline Olmstead MD; Waived Point of Care Testing - Luz Maria levi MD Lab Interpretation Abnormal (test code = 80376-4) [facility] Chem [id number] 16:07:54 Test Item Value Reference Range Interpretation [...] chemic ally sensitive biose nsors on a Meritful ip that are config ured to perform [...] See_Comment [Automa eugene message] 2068-04) The system Conis[employer] generated this result transmitted ref erence range: 98 - 109 mEq/L. The refe rence range was not u sed to interpret this result as normal/abnor mal. POC ATCO2 (test code 27 See_Comment [Autom ated message] = 2025-04) The system [employer] generated this result transmitted ref erence range: 23 - 27 mEq/L. The reference r ashley was not used to interpret this result as normal/abnor mal. POC Anion Gap (test 19 mmol/L 10-20 code = 76410) POC BUN (test code = 7 mg/dL 8-26 L 6299-2) POC Crea (test code 0.4 mg/dL 0.6-1.3 L Medicati ons, = 78761-3) especially hydroxyurea or supplements, limon ch as [...] chemic ally sensitive biose nsors on a Meritful ip that are config ured to perform spec ific tests. The microfabricated sensors measure analyte concent ration by an electroch emical assay. POC EGFR (test code 141 See_Comment The eGFR cr is = 12295) calculated with the 2020 CKD-EPI creatinine equa [...] CK D. [Automated mess age] The system Conis[employer] generated this result transmitted ref erence range: [...] MDA Main Main Ca mpus code = 30031) [facility], [address] [facility] [address], [facility], [place] [address]; Hi Lift Operator: Guerline Olmstead MD; Waived Point of Care Testing - Luz Maria levi MD Lab Interpretation Abnormal (test code = 95586-8) [facility] Chem [id number] 16:07:54 Test Item Value Reference Range Interpretation Comments POC NA (test code = 145 See_Comment [Automa eugene message] 1875-0) The system Conis[employer] generated this result transmitted ref erence range: [...] chemic ally sensitive biose nsors on a Meritful ip that are config ured to perform [...] See_Comment [Automa eugene message] 2068-04) The system Conisus generated this result transmitted ref erence range: 98 - 109 mEq/L. The refe rence range was not u sed to interpret this result as normal/abnor mal. POC ATCO2 (test code 27 See_Comment [Autom ated message] = 2025-04) The system [employer]is[employer] generated this result transmitted ref erence range: 23 - 27 mEq/L. The reference r ashley was not used to interpret this result as normal/abnor mal. POC Anion Gap (test 19 mmol/L -20 code = 24256) POC BUN (test code = 7 mg/dL 8-26 L 6299-2) POC Crea (test code 0.4 mg/dL 0.6-1.3 L Medicati ons, = 04540-4) especially hydroxyurea or supplements, limon ch as [...] chemic ally sensitive biose nsors on a Meritful ip that are config ured to perform spec ific tests. The microfabricated sensors measure analyte concent ration by an electroch emical assay. POC EGFR (test code 141 See_Comment The eGFR cr is = 56537) calculated with the 2020 CKD-EPI creatinine equa [...] CK D. [Automated mess age] The system Conisus generated this result transmitted ref erence range: [...] Hct (test code = 38.0 % 38.0-51.0 80) POC Hgb (test code = 12.9 See_Comment [...] MDA Main Main Ca mpus code = 57168) [facility] Cli nical Lab, [address] [facility] [address], [place] [address]; Hi Lift Operator: Guerline Olmstead MD; Waived Point of Care Testing - Luz Maria levi MD Lab Interpretation Abnormal (test code = 61781-1) [facility] Chem [id number] 16:07:54 Test Item Value Reference Range Interpretation Comments POC NA (test code = 145 See_Comment [Automa eugene message] 7-0) The system Conisus generated this result transmitted ref erence range: [...] chemic ally sensitive biose nsors on a Meritful ip that are config ured to perform [...] See_Comment [Automa eugene message] 2068-04) The system Conisus generated this result transmitted ref erence range: 98 - 109 mEq/L. The refe rence range was not u sed to interpret this result as normal/abnor mal. POC ATCO2 (test code 27 See_Comment [Autom ated message] = 2025-04) The system Conisus generated this result transmitted ref erence range: 23 - 27 mEq/L. The reference r ashley was not used to interpret this result as normal/abnor mal. POC Anion Gap (test 19 mmol/L 10-20 code = 04891) POC BUN (test code = 7 mg/dL 8-26 L 6299-2) POC Crea (test code 0.4 mg/dL 0.6-1.3 L Medicati ons, = 65768-5) especially hydroxyurea or supplements, limon ch as [...] chemic ally sensitive biose nsors on a Meritful ip that are config ured to perform spec ific tests. The microfabricated sensors measure analyte concent ration by an electroch emical assay. POC EGFR (test code 141 See_Comment The eGFR cr is = 11883) calculated with the 2020 CKD-EPI creatinine equa [...] CK D. [Automated mess age] The system whic h generated this result [...] MDA Main Main Ca mpus code = 24124) [facility] Cli nical Lab, [address] [facility], [place] [address]; Hi Lift Operator: Guerline Olmstead MD; Waived Point of Care Testing - Luz Maria levi MD Lab Interpretation Abnormal (test code = 38516-6) [facility] Chem [id number] 16:07:54 Test Item Value Reference Range Interpretation Comments POC NA (test code = 145 See_Comment [Automa eugene message] 2947-0) The system Local Dirtic Heekya generated this result transmitted ref erence range: [...] which contains microfabricated sensors, a calibration dixie [employer], fluidics system , and a waste chamber . Each test cartridge contains chemic ally sensitive biose nsors on a Meritful ip that are config ured to perform [...] See_Comment [Automa eugene message] 2068-04) The system Conisus generated this result transmitted ref erence range: 98 - 109 mEq/L. The refe rence range was not u sed to interpret this result as normal/abnor mal. POC ATCO2 (test code 27 See_Comment [Autom ated message] = 2025-04) The system Conisus generated this result transmitted ref erence range: 23 - 27 mEq/L. The reference r ashley was not used to interpret this result as normal/abnor mal. POC Anion Gap (test 19 mmol/L 10-20 code = 38742) POC BUN (test code = 7 mg/dL 8-26 L 6299-2) POC Crea (test code 0.4 mg/dL 0.6-1.3 L Medicati ons, = 47526-4) especially hydroxyurea or supplements, limon ch as [...] which contains microfabricated sensors, a calibration dixie [employer], fluidics system , and a waste chamber . Each test cartridge contains chemic ally sensitive biose nsors on a Meritful ip that are config ured to perform spec ific tests. The microfabricated sensors measure analyte concent ration by an electroch emical assay. POC EGFR (test code 141 See_Comment The eGFR cr is = 42645) calculated with the 2020 CKD-EPI creatinine equa [...] CK D. [Automated mess age] The system Conisus generated this result transmitted ref erence range: [...] Hct (test code = 38.0 % 38.0-51.0 8480) POC Hgb (test code = 12.9 See_Comment Hematoc rit values 3082) from the iSTAT are determined conductometrica lly, [...] MDA Main Main Ca mpus code = 31701) [facility] Cli [facility] Lab, [address] [facility] [address], [facility], [place] [address]; Hi Lift Operator: Guerline Olmstead MD; Waived Point of Care Testing - Luz Maria levi MD Lab Interpretation Abnormal (test code = 16601-5) [facility] [id number] 16:07:27 Test Item Value Reference Range Interpretation Comments C-Peptide (test code = 1985-10) 2.34 ng/mL 1.10-4.40 [facility] [id number] 16:07:27 Test Item Value Reference Range Interpretation Comments C-Peptide (test code = 1985-10) 2.34 ng/mL 1.10-4.40 [facility] [id number] 16:07:27 Test Item Value Reference Range Interpretation Comments C-Peptide (test code = 1985-10) 2.34 ng/mL 1.10-4.40 [facility] [id number] 16:07:27 Test Item Value Reference Range Interpretation Comments C-Peptide (test code = 1985-10) 2.34 ng/mL 1.10-4.40 [facility] [id number] 16:07:27 Test Item Value Reference Range Interpretation Comments C-Peptide (test code = 1985-10) 2.34 ng/mL 1.10-4.40 [facility] [id number] 16:07:27 Test Item Value Reference Range Interpretation Comments C-Peptide (test code = 1985-10) 2.34 ng/mL 1.10-4.40 [facility] [id number] 16:07:27 Test Item Value Reference Range Interpretation Comments C-Peptide (test code = 1985-10) 2.34 ng/mL 1.10-4.40 [facility] [id number] 16:07:27 Test Item Value Reference Range Interpretation Comments C-Peptide (test code = 1985-10) 2.34 ng/mL 1.10-4.40 [facility] [id number] 16:07:27 Test Item Value Reference Range Interpretation Comments C-Peptide (test code = 1985-10) 2.34 ng/mL 1.10-4.40 [facility] [id number] 16:07:27 Test Item Value Reference Range Interpretation Comments C-Peptide (test code = 1985-10) 2.34 ng/mL 1.10-4.40 [facility] [id number] 16:07:27 Test Item Value Reference Range Interpretation Comments C-Peptide (test code = 1985-10) 2.34 ng/mL 1.10-4.40 [facility] [id number] 16:07:27 Test Item Value Reference Range Interpretation Comments C-Peptide (test code = 1985-10) 2.34 ng/mL 1.10-4.40 [facility] [id number] 16:07:27 Test Item Value Reference Range Interpretation Comments C-Peptide (test code = 1985-10) 2.34 ng/mL 1.10-4.40 [facility] [id number] 16:07:27 Test Item Value Reference Range Interpretation Comments C-Peptide (test code = 1985-10) 2.34 ng/mL 1.10-4.40 [facility] [id number] 16:07:27 Test Item Value Reference Range Interpretation Comments C-Peptide (test code = 1985-10) 2.34 ng/mL 1.10-4.40 [facility] [id number] 16:07:27 Test Item Value Reference Range Interpretation Comments C-Peptide (test code = 1985-) 2.34 ng/mL 1.10-4.40 [facility] [id number] 16:07:23 Test Item Value Reference Range Interpretation [...] d message] code = 2018-09) The system [employer] generated this result transmit eugene reference range : 35 - 45 mmHg. The reference range was not used to interpret this result as normal/abnormal . POC AB pO2 (test 46 See_Comment A [Automated message] code = 3-7) The system [employer] generated this result transmit eugene reference range : 80 - 105 mmHg. The reference range was not used to interpret this result as normal/abnormal . POC AB TCO2 (test 28 See_Comment H [Automate d message] code = 2025-3) The system [employer] generated this result transmit eugene reference range : 23 - 27 mEq/L. The reference range was not used to interpret this result as normal/abnormal . POC AB Bicarb (test 26 mmol/L 22-26 code = 1960-4) POC AB Base Ex (test 0 mmol/L -2-3 code = 47241-4) POC AB O2 Sat (test 78 % 95-98 L code = 2708-6) POC FiO2 (test code 100 = 3150-0) POC ABG Draw Site Rt Radial (test code = 6663) POC Elias Test (test Not Performed code = 04353-5) POC Sample Type Arterial (test code = 6690) POC Clean Dev (test Yes code = 6672) Performing Lab (test [facility] Main [place] code = 32570) [facility] Cli nical Lab, [address] [place] [address]; Hi Lift Operator: Guerline Olmstead MD; Waived Point of Care Testing - Luz Maria levi MD Lab Interpretation Abnormal (test code = 55620-8) [facility] [id number] 16:07:23 Test Item Value Reference Range Interpretation [...] d message] code = 2018-09) The system [employer] generated this result transmit eugene reference range : 35 - 45 mmHg. The reference range was not used to interpret this result as normal/abnormal . POC AB pO2 (test 46 See_Comment A [Automated message] code = 2703-7) The system [employer] generated this result transmit eugene reference range : 80 - 105 mmHg. The reference range was not used to interpret this result as normal/abnormal . POC AB TCO2 (test 28 See_Comment H [Automate d message] code = 2025-3) The system [employer] generated this result transmit eugene reference range : 23 - 27 mEq/L. The reference range was not used to interpret this result as normal/abnormal . POC AB Bicarb (test 26 mmol/L 22-26 code = 1960-4) POC AB Base Ex (test 0 mmol/L -2-3 code = 13179-5) POC AB O2 Sat (test 78 % 95-98 L code = 2708-6) POC FiO2 (test code 100 = 3150-0) POC ABG Draw Site Rt Radial (test code = 6663) POC Elias Test (test Not Performed code = 89275-5) POC Sample Type Arterial (test code = 6690) POC Clean Dev (test Yes code = 6672) Performing Lab (test [facility] Main [place] code = 27792) [facility] Cli nical Lab, [address], [facility], [place] [address]; Hi Lift Operator: Guerline Olmstead MD; Waived Point of Care Testing - Lu zMaria levi MD Lab Interpretation Abnormal (test code = 32269-7) [facility] [id number] 16:07:23 Test Item Value Reference Range Interpretation [...] d message] code = 2018-09) The system [employer] generated this result transmit eugene reference range : 35 - 45 mmHg. The reference range was not used to interpret this result as normal/abnormal . POC AB pO2 (test 46 See_Comment A [Automated message] code = 3-7) The system [employer] generated this result transmit eugene reference range : 80 - 105 mmHg. The reference range was not used to interpret this result as normal/abnormal . POC AB TCO2 (test 28 See_Comment H [Automate d message] code = 2025-3) The system [employer] generated this result transmit eugene reference range : 23 - 27 mEq/L. The reference range was not used to interpret this result as normal/abnormal . POC AB Bicarb (test 26 mmol/L 22-26 code = 1960-4) POC AB Base Ex (test 0 mmol/L -2-3 code = 76862-8) POC AB O2 Sat (test 78 % 95-98 L code = 2708-6) POC FiO2 (test code 100 = 3150-0) POC ABG Draw Site Rt Radial (test code = 6663) POC Elias Test (test Not Performed code = 82233-4) POC Sample Type Arterial (test code = 6690) POC Clean Dev (test Yes code = 6672) Performing Lab (test [facility] [place] code = 12070) [facility] Cli nical Lab, [address], [place] [address]; Hi Lift Operator: Guerline Olmstead MD; Waived Point of Care Testing - Luz Maria levi MD Lab Interpretation Abnormal (test code = 06571-6) [facility] [id number] 16:07:23 Test Item Value Reference Range Interpretation [...] d message] code = 2018-09) The system [employer] generated this result transmit eugene reference range : 35 - 45 mmHg. The reference range was not used to interpret this result as normal/abnormal . POC AB pO2 (test 46 See_Comment A [Automated message] code = 3-7) The system [employer] generated this result transmit eugene reference range : 80 - 105 mmHg. The reference range was not used to interpret this result as normal/abnormal . POC AB TCO2 (test 28 See_Comment H [Automate d message] code = 2025-) The system [employer] generated this result transmit eugene reference range : 23 - 27 mEq/L. The reference range was not used to interpret this result as normal/abnormal . POC AB Bicarb (test 26 mmol/L 22-26 code = 1960-4) POC AB Base Ex (test 0 mmol/L -2-3 code = 33293-3) POC AB O2 Sat (test 78 % 95-98 L code = 2708-6) POC FiO2 (test code 100 = 3150-0) POC ABG Draw Site Rt Radial (test code = 6663) POC Elias Test (test Not Performed code = 10549-8) POC Sample Type Arterial (test code = 6690) POC Clean Dev (test Yes code = 6672) Performing Lab (test [facility] [place] code = 80051) [facility] nical Lab, [address], [facility], [place] [address]; Hi Lift Operator: Guerline Olmstead MD; Waived Point of Care Testing - Luz Maria levi MD Lab Interpretation Abnormal (test code = 37063-3) [facility] [id number] 16:07:23 Test Item Value Reference Range Interpretation [...] d message] code = 2018-09) The system [employer] generated this result transmit eugene reference range : 35 - 45 mmHg. The reference range was not used to interpret this result as normal/abnormal . POC AB pO2 (test 46 See_Comment A [Automated message] code = 3-7) The system [employer] generated this result transmit eugene reference range : 80 - 105 mmHg. The reference range was not used to interpret this result as normal/abnormal . POC AB TCO2 (test 28 See_Comment H [Automate d message] code = 2025-3) The system [employer] generated this result transmit eugene reference range : 23 - 27 mEq/L. The reference range was not used to interpret this result as normal/abnormal . POC AB Bicarb (test 26 mmol/L 22-26 code = 1960-4) POC AB Base Ex (test 0 mmol/L -2-3 code = 57302-6) POC AB O2 Sat (test 78 % 95-98 L code = 2708-6) POC FiO2 (test code 100 = 3150-0) POC ABG Draw Site Rt Radial (test code = 6663) POC Elias Test (test Not Performed code = 82248-0) POC Sample Type Arterial (test code = 6690) POC Clean Dev (test Yes code = 6672) Performing Lab (test [facility] code = 22972) [facility] nical Lab, [address], [facility], [place] [address]; Hi Lift Operator: Guerline Olmstead MD; Waived Point of Care Testing - Luz Maria levi MD Lab Interpretation Abnormal (test code = 94489-6) [facility] [id number] 16:07:23 Test Item Value Reference Range Interpretation [...] d message] code = 2018-09) The system [employer] generated this result transmit eugene reference range : 35 - 45 mmHg. The reference range was not used to interpret this result as normal/abnormal . POC AB pO2 (test 46 See_Comment A [Automated message] code = 2702-7) The system [employer] generated this result transmit eugene reference range : 80 - 105 mmHg. The reference range was not used to interpret this result as normal/abnormal . POC AB TCO2 (test 28 See_Comment H [Automate d message] code = 2025-) The system [employer] generated this result transmit eugene reference range : 23 - 27 mEq/L. The reference range was not used to interpret this result as normal/abnormal . POC AB Bicarb (test 26 mmol/L 22-26 code = 1960-4) POC AB Base Ex (test 0 mmol/L -2-3 code = 20314-5) POC AB O2 Sat (test 78 % 95-98 L code = 9822-6) POC FiO2 (test code 100 = 3150-0) POC ABG Draw Site Rt Radial (test code = 6663) POC Elias Test (test Not Performed code = 64441-4) POC Sample Type Arterial (test code = 6690) POC Clean Dev (test Yes code = 6672) Performing Lab (test [facility] code = 64406) [facility] nical Lab, [address] [facility] [address], [place] [address]; Hi Lift Operator: Guerline Olmstead MD; Waived Point of Care Testing - Luz Maria levi MD Lab Interpretation Abnormal (test code = 40976-8) [facility] [id number] 16:07:23 Test Item Value Reference Range Interpretation [...] d message] code = 2018-09) The system [employer] generated this result transmit eugene reference range : 35 - 45 mmHg. The reference range was not used to interpret this result as normal/abnormal . POC AB pO2 (test 46 See_Comment A [Automated message] code = 2703-7) The system [employer] generated this result transmit eugene reference range : 80 - 105 mmHg. The reference range was not used to interpret this result as normal/abnormal . POC AB TCO2 (test 28 See_Comment H [Automate d message] code = 2025-) The system [employer] generated this result transmit eugene reference range : 23 - 27 mEq/L. The reference range was not used to interpret this result as normal/abnormal . POC AB Bicarb (test 26 mmol/L 22-26 code = 1960-4) POC AB Base Ex (test 0 mmol/L -2-3 code = 80219-9) POC AB O2 Sat (test 78 % 95-98 L code = 2708-6) POC FiO2 (test code 100 = 3150-0) POC ABG Draw Site Rt Radial (test code = 6663) POC Elias Test (test Not Performed code = 85971-4) POC Sample Type Arterial (test code = 6690) POC Clean Dev (test Yes code = 6672) Performing Lab (test [facility] code = 31907) [facility] Cli nical Lab, [address], [place] [address]; Hi Lift Operator: Guerline Olmstead MD; Waived Point of Care Testing - Luz Maria levi MD Lab Interpretation Abnormal (test code = 25051-2) [facility] [id number] 16:07:23 Test Item Value Reference Range Interpretation [...] d message] code = 2018-09) The system [employer] generated this result transmit eugene reference range : 35 - 45 mmHg. The reference range was not used to interpret this result as normal/abnormal . POC AB pO2 (test 46 See_Comment A [Automated message] code = 2703-7) The system [employer] generated this result transmit eugene reference range : 80 - 105 mmHg. The reference range was not used to interpret this result as normal/abnormal . POC AB TCO2 (test 28 See_Comment H [Automate d message] code = 2025-) The system [employer] generated this result transmit eugene reference range : 23 - 27 mEq/L. The reference range was not used to interpret this result as normal/abnormal . POC AB Bicarb (test 26 mmol/L 22-26 code = 1960-4) POC AB Base Ex (test 0 mmol/L -2-3 code = 30395-0) POC AB O2 Sat (test 78 % 95-98 L code = 2708-6) POC FiO2 (test code 100 = 3150-0) POC ABG Draw Site Rt Radial (test code = 6663) POC Elias Test (test Not Performed code = 75034-9) POC Sample Type Arterial (test code = 6690) POC Clean Dev (test Yes code = 6672) Performing Lab (test [facility] code = 86165) [facility] Cli nical Lab, [address] [place], [facility], [place] [address]; Hi Lift Operator: Guerline Olmstead MD; Waived Point of Care Testing - Luz Maria levi MD Lab Interpretation Abnormal (test code = 43010-5) [facility] [id number] 16:07:23 Test Item Value Reference Range Interpretation [...] d message] code = 2018-09) The system [employer] generated this result transmit eugene reference range : 35 - 45 mmHg. The reference range was not used to interpret this result as normal/abnormal . POC AB pO2 (test 46 See_Comment A [Automated message] code = 0533-7) The system [employer] generated this result transmit eugene reference range : 80 - 105 mmHg. The reference range was not used to interpret this result as normal/abnormal . POC AB TCO2 (test 28 See_Comment H [Automate d message] code = 2025-) The system [employer] generated this result transmit eugene reference range : 23 - 27 mEq/L. The reference range was not used to interpret this result as normal/abnormal . POC AB Bicarb (test 26 mmol/L 22-26 code = 1960-4) POC AB Base Ex (test 0 mmol/L -2-3 code = 35021-6) POC AB O2 Sat (test 78 % 95-98 L code = 2708-6) POC FiO2 (test code 100 = 3150-0) POC ABG Draw Site Rt Radial (test code = 6663) POC Elias Test (test Not Performed code = 46760-2) POC Sample Type Arterial (test code = 6690) POC Clean Dev (test Yes code = 6672) Performing Lab (test [facility] [place] code = 76499) [facility] Cli nical Lab, [address], [place] [address]; Hi Lift Operator: Guerline Olmstead MD; Waived Point of Care Testing - Luz Maria levi MD Lab Interpretation Abnormal (test code = 54681-0) [facility] [id number] 16:07:23 Test Item Value Reference Range Interpretation [...] d message] code = 2018-09) The system [employer] generated this result transmit eugene reference range : 35 - 45 mmHg. The reference range was not used to interpret this result as normal/abnormal . POC AB pO2 (test 46 See_Comment A [Automated message] code = 2702-7) The system [employer] generated this result transmit eugene reference range : 80 - 105 mmHg. The reference range was not used to interpret this result as normal/abnormal . POC AB TCO2 (test 28 See_Comment H [Automate d message] code = 2025-3) The system [facility] generated this result transmit eugene reference range : 23 - 27 mEq/L. The reference range was not used to interpret this result as normal/abnormal . POC AB Bicarb (test 26 mmol/L 22-26 code = 1960-4) POC AB Base Ex (test 0 mmol/L -2-3 code = 25680-4) POC AB O2 Sat (test 78 % 95-98 L code = 2708-6) POC FiO2 (test code 100 = 3150-0) POC ABG Draw Site Rt Radial (test code = 6663) POC Elias Test (test Not Performed code = 59959-2) POC Sample Type Arterial (test code = 6690) POC Clean Dev (test Yes code = 6672) Performing Lab (test [facility] code = 70262) [facility] Cli nical Lab, [facility], [place] [address]; Hi Lift Operator: Guerline Olmstead MD; Waived Point of Care Testing - Luz Maria levi MD Lab Interpretation Abnormal (test code = 92867-1) [facility] [id number] 16:07:23 Test Item Value Reference Range Interpretation [...] See_Comment H [Automate d message] code = 2019-8) The system [employer] generated this result transmit eugene reference range : 35 - 45 mmHg. The reference range was not used to interpret this result as normal/abnormal . POC AB pO2 (test 46 See_Comment A [Automated message] code = 2703-7) The system [employer] generated this result transmit eugene reference range : 80 - 105 mmHg. The reference range was not used to interpret this result as normal/abnormal . POC AB TCO2 (test 28 See_Comment H [Automate d message] code = 2025-) The system [employer] generated this result transmit eugene reference range : 23 - 27 mEq/L. The reference range was not used to interpret this result as normal/abnormal . POC AB Bicarb (test 26 mmol/L 22-26 code = 1960-4) POC AB Base Ex (test 0 mmol/L -2-3 code = 04776-6) POC AB O2 Sat (test 78 % 95-98 L code = 2708-6) POC FiO2 (test code 100 = 3150-0) POC ABG Draw Site Rt Radial (test code = 6663) POC Elias Test (test Not Performed code = 47280-5) POC Sample Type Arterial (test code = 6690) POC Clean Dev (test Yes code = 6672) Performing Lab (test [facility] code = 26393) [facility] Cli nical Lab, [address] [place] [address]; Hi Lift Operator: Guerline Olmstead MD; Waived Point of Care Testing - Luz Maria levi MD Lab Interpretation Abnormal (test code = 80035-6) [facility] [id number] 16:07:23 Test Item Value Reference Range Interpretation [...] d message] code = 2018-09) The system [employer] generated this result transmit eugene reference range : 35 - 45 mmHg. The reference range was not used to interpret this result as normal/abnormal . POC AB pO2 (test 46 See_Comment A [Automated message] code = 2703-7) The system [employer] generated this result transmit eugene reference range : 80 - 105 mmHg. The reference range was not used to interpret this result as normal/abnormal . POC AB TCO2 (test 28 See_Comment H [Automate d message] code = 2025-) The system [employer] generated this result transmit eugene reference range : 23 - 27 mEq/L. The reference range was not used to interpret this result as normal/abnormal . POC AB Bicarb (test 26 mmol/L 22-26 code = 1960-4) POC AB Base Ex (test 0 mmol/L -2-3 code = 94627-7) POC AB O2 Sat (test 78 % 95-98 L code = 2708-6) POC FiO2 (test code 100 = 3150-0) POC ABG Draw Site Rt Radial (test code = 6663) POC Elias Test (test Not Performed code = 86415-3) POC Sample Type Arterial (test code = 6690) POC Clean Dev (test Yes code = 6672) Performing Lab (test [facility] code = 81098) [facility] Cli nical Lab, [address] [place] [address] [place] [address]; Hi Lift Operator: Guerline Olmstead MD; Waived Point of Care Testing - Luz Maria levi MD Lab Interpretation Abnormal (test code = 76853-0) [facility] [id number] 16:07:23 Test Item Value Reference Range Interpretation [...] d message] code = 2018-09) The system [employer] generated this result transmit eugene reference range : 35 - 45 mmHg. The reference range was not used to interpret this result as normal/abnormal . POC AB pO2 (test 46 See_Comment A [Automated message] code = 2703-7) The system [employer] generated this result transmit eugene reference range : 80 - 105 mmHg. The reference range was not used to interpret this result as normal/abnormal . POC AB TCO2 (test 28 See_Comment H [Automate d message] code = 2025-) The system [employer] generated this result transmit eugene reference range : 23 - 27 mEq/L. The reference range was not used to interpret this result as normal/abnormal . POC AB Bicarb (test 26 mmol/L 22-26 code = 1960-4) POC AB Base Ex (test 0 mmol/L -2-3 code = 66263-7) POC AB O2 Sat (test 78 % 95-98 L code = 2708-6) POC FiO2 (test code 100 = 3150-0) POC ABG Draw Site Rt Radial (test code = 6663) POC Elias Test (test Not Performed code = 83858-5) POC Sample Type Arterial (test code = 6690) POC Clean Dev (test Yes code = 6672) Performing Lab (test [facility] code = 68758) [facility] Cli [facility]ical Lab, [address] [place] [address]; Hi Lift Operator: Guerline Olmstead MD; Waived Point of Care Testing - Luz Maria levi MD Lab Interpretation Abnormal (test code = 96813-0) [facility] [id number] 16:07:23 Test Item Value Reference Range Interpretation [...] d message] code = 2018-09) The system [employer] generated this result transmit eugene reference range : 35 - 45 mmHg. The reference range was not used to interpret this result as normal/abnormal . POC AB pO2 (test 46 See_Comment A [Automated message] code = 2703-7) The system [employer] generated this result transmit eugene reference range : 80 - 105 mmHg. The reference range was not used to interpret this result as normal/abnormal . POC AB TCO2 (test 28 See_Comment H [Automate d message] code = 2025-) The system [employer] generated this result transmit eugene reference range : 23 - 27 mEq/L. The reference range was not used to interpret this result as normal/abnormal . POC AB Bicarb (test 26 mmol/L 22-26 code = 1960-4) POC AB Base Ex (test 0 mmol/L -2-3 code = 98124-3) POC AB O2 Sat (test 78 % 95-98 L code = 2708-6) POC FiO2 (test code 100 = 3150-0) POC ABG Draw Site Rt Radial (test code = 6663) POC Elias Test (test Not Performed code = 34927-7) POC Sample Type Arterial (test code = 6690) POC Clean Dev (test Yes code = 6672) Performing Lab (test [facility] code = 16861) [facility] Cli [facility]ical Lab, [facility], [facility], [place] [address]; Hi Lift Operator: Guerline Olmstead MD; Waived Point of Care Testing - Luz Maria levi MD Lab Interpretation Abnormal (test code = 78327-3) [facility] [id number] 16:07:23 Test Item Value Reference Range Interpretation [...] sens itive biosensors on a silicon chip at are configured to perform specifi c tests. The microfabricated sensors measure analyte concentration b y an electrochemical assay. POC AB pCO2 (test 49 See_Comment H [Automate d message] code = 2018-09) The system [employer] generated this result transmit eugene reference range : 35 - 45 mmHg. The reference range was not used to interpret this result as normal/abnormal . POC AB pO2 (test 46 See_Comment A [Automated message] code = 2703-7) The system [employer] generated this result transmit eugene reference range : 80 - 105 mmHg. The reference range was not used to interpret this result as normal/abnormal . POC AB TCO2 (test 28 See_Comment H [Automate d message] code = 6-3) The system [employer] generated this result transmit eugene reference range : 23 - 27 mEq/L. The reference range was not used to interpret this result as normal/abnormal . POC AB Bicarb (test 26 mmol/L 22-26 code = 1960-4) POC AB Base Ex (test 0 mmol/L -2-3 code = 20447-5) POC AB O2 Sat (test 78 % 95-98 L code = 2708-6) POC FiO2 (test code 100 = 3150-0) POC ABG Draw Site Rt Radial (test code = 6663) POC Elias Test (test Not Performed code = 18932-1) POC Sample Type Arterial (test code = 6690) POC Clean Dev (test Yes code = 6672) Performing Lab (test [facility] [place] code = 13515) [facility]ical Lab, [facility] [place], [place] [address]; Hi Lift Operator: Guerline Olmstead MD; Waived Point of Care Testing - Luz Maria levi MD Lab Interpretation Abnormal (test code = 29954-9) [facility] [id number] 16:07:23 Test Item Value Reference Range Interpretation [...] d message] code = 2018-09) The system [employer] generated this result transmit eugene reference range : 35 - 45 mmHg. The reference range was not used to interpret this result as normal/abnormal . POC AB pO2 (test 46 See_Comment A [Automated message] code = 2702-7) The system [employer] generated this result transmit eugene reference range : 80 - 105 mmHg. The reference range was not used to interpret this result as normal/abnormal . POC AB TCO2 (test 28 See_Comment H [Automate d message] code = 2025-04) The system [employer] generated this result transmit eugene reference range : 23 - 27 mEq/L. The reference range was not used to interpret this result as normal/abnormal . POC AB Bicarb (test 26 mmol/L 22-26 code = 1960-4) POC AB Base Ex (test 0 mmol/L -2-3 code = 40214-0) POC AB O2 Sat (test 78 % 95-98 L code = 2708-6) POC FiO2 (test code 100 = 3150-0) POC ABG Draw Site Rt Radial (test code = 6663) POC Elias Test (test Not Performed code = 27389-0) POC Sample Type Arterial (test code = 6690) POC Clean Dev (test Yes code = 6672) Performing Lab (test [facility] [place] code = 68584) [facility] Cli nical Lab, [address] [place] [address], [place] [address]; Hi Lift Operator: Guerline Olmstead MD; Waived Point of Care Testing - Luz Maria levi MD Lab Interpretation Abnormal (test code = 79283-6) [facility] [id number] 11:44:21 Test Item Value Reference Range Interpretation Comments pH Kojo (test code = 7.31 7.32-7.43 L Results are 7426-6) corrected for a body temp of 37C pCO2 Kojo (test code = 35.9 See_Comment L [Auto mated message] 2020-05) The system [employer] generated this result transmit eugene reference range : 41.0 - 51.0 mmH g. The reference r ashley was not used to interpret this result as normal/abnormal . pO2 Kojo (test code = 56 mmHg 2705-2) HCO3 Kojo (test code = 18 mmol/L 21-28 L 69545-9) Base Excess Kojo (test -7 mmol/L -2-3 L code = 1927-3) O2 Sat Kojo (test code = 90 % 2711-0) Lab Interpretation (test Abnormal code = 66194-2) [facility] Test Item Value Reference Range Interpretation Comments pH Kojo (test code = 7.31 7.32-7.43 L Results are 2746-6) corrected for a body temp of 37C pCO2 Kojo (test code = 35.9 See_Comment L [Auto mated message] 2020-05) The system [employer] generated this result transmit eugene reference range : 41.0 - 51.0 mmH g. The reference r ashley was not used to interpret this result as normal/abnormal . pO2 Kojo (test code = 56 mmHg 2705-2) HCO3 Kojo (test code = 18 mmol/L 21-28 L 43347-3) Base Excess Kojo (test -7 mmol/L -2-3 L code = 1927-3) O2 Sat Kojo (test code = 90 % 2711-0) Lab Interpretation (test Abnormal code = 12706-1) [facility] 11:44:21 Test Item Value Reference Range Interpretation Comments pH Kojo (test code = 7.31 7.32-7.43 L Results are 2746-6) corrected for a body temp of 37C pCO2 Kojo (test code = 35.9 See_Comment L [Auto mated message] 2020-05) The system [employer] generated this result transmit eugene reference range : 41.0 - 51.0 mmH g. The reference r ashley was not used to interpret this result as normal/abnormal . pO2 Kojo (test code = 56 mmHg 2705-2) HCO3 Kojo (test code = 18 mmol/L 21-28 L 62672-1) Base Excess Kojo (test -7 mmol/L -2-3 L code = 1927-3) O2 Sat Kojo (test code = 90 % 2711-0) Lab Interpretation (test Abnormal code = 40455-5) [facility] 11:44:21 Test Item Value Reference Range Interpretation Comments pH Kojo (test code = 7.31 7.32-7.43 L Results are 2746-6) corrected for a body temp of 37C pCO2 Kojo (test code = 35.9 See_Comment L [Auto mated message] 2020-05) The system [employer] generated this result transmit eugene reference range : 41.0 - 51.0 mmH g. The reference r ashley was not used to interpret this result as normal/abnormal . pO2 Kojo (test code = 56 mmHg 2705-2) HCO3 Kojo (test code = 18 mmol/L 21-28 L 66325-4) Base Excess Kojo (test -7 mmol/L -2-3 L code = 1927-3) O2 Sat Kojo (test code = 90 % 2711-0) Lab Interpretation (test Abnormal code = 10443-5) [facility] 11:44:21 Test Item Value Reference Range Interpretation Comments pH Kojo (test code = 7.31 7.32-7.43 L Results are 2746-6) corrected for a body temp of 37C pCO2 Kojo (test code = 35.9 See_Comment L [Auto mated message] 2020-05) The system [employer] generated this result transmit eugene reference range : 41.0 - 51.0 mmH g. The reference r ashley was not used to interpret this result as normal/abnormal . pO2 Kojo (test code = 56 mmHg 2705-2) HCO3 Kojo (test code = 18 mmol/L 21-28 L 72619-2) Base Excess Kojo (test -7 mmol/L -2-3 L code = 1927-3) O2 Sat Kojo (test code = 90 % 2711-0) Lab Interpretation (test Abnormal code = 22023-5) [facility] 11:44:21 Test Item Value Reference Range Interpretation Comments pH Kojo (test code = 7.31 7.32-7.43 L Results are 2746-6) corrected for a body temp of 37C pCO2 Kojo (test code = 35.9 See_Comment L [Auto mated message] 2020-05) The system [employer] generated this result transmit eugene reference range : 41.0 - 51.0 mmH g. The reference r ashley was not used to interpret this result as normal/abnormal . pO2 Kojo (test code = 56 mmHg 2705-2) HCO3 Kojo (test code = 18 mmol/L 21-28 L 37581-7) Base Excess Kojo (test -7 mmol/L -2-3 L code = 1927-3) O2 Sat Kojo (test code = 90 % 2711-0) Lab Interpretation (test Abnormal code = 83439-3) [facility] Test Item Value Reference Range Interpretation Comments pH Kojo (test code = 7.31 7.32-7.43 L Results are 2746-6) corrected for a body temp of 37C pCO2 Kojo (test code = 35.9 See_Comment L [Auto mated message] 2020-05) The system Conisus generated this result transmit eugene reference range : 41.0 - 51.0 mmH g. The reference r ashley was not used to interpret this result as normal/abnormal . pO2 Kojo (test code = 56 mmHg 2705-2) HCO3 Kojo (test code = 18 mmol/L 21-28 L 91523-8) Base Excess Kojo (test -7 mmol/L -2-3 L code = 1927-3) O2 Sat Kojo (test code = 90 % 2711-0) Lab Interpretation (test Abnormal code = 14260-2) [facility] Test Item Value Reference Range Interpretation Comments pH Kojo (test code = 7.31 7.32-7.43 L Results are 2746-6) corrected for a body temp of 37C pCO2 Kojo (test code = 35.9 See_Comment L [Auto mated message] 2020-05) The system [employer] generated this result transmit eugene reference range : 41.0 - 51.0 mmH g. The reference r ashley was not used to interpret this result as normal/abnormal . pO2 Kojo (test code = 56 mmHg 2705-2) HCO3 Kojo (test code = 18 mmol/L 21-28 L 00303-5) Base Excess Kojo (test -7 mmol/L -2-3 L code = 1927-3) O2 Sat Kojo (test code = 90 % 2711-0) Lab Interpretation (test Abnormal code = 18642-7) [facility] Test Item Value Reference Range Interpretation Comments pH Kojo (test code = 7.31 7.32-7.43 L Results are 2746-6) corrected for a body temp of 37C pCO2 Kojo (test code = 35.9 See_Comment L [Auto mated message] 2020-05) The system [employer]is[employer] generated this result transmit eugene reference range : 41.0 - 51.0 mmH g. The reference r ashley was not used to interpret this result as normal/abnormal . pO2 Kojo (test code = 56 mmHg 2705-2) HCO3 Kojo (test code = 18 mmol/L 21-28 L 92788-7) Base Excess Kojo (test -7 mmol/L -2-3 L code = 1927-3) O2 Sat Kojo (test code = 90 % 2711-0) Lab Interpretation (test Abnormal code = 58478-1) [facility] Test Item Value Reference Range Interpretation Comments pH Kojo (test code = 7.31 7.32-7.43 L Results are 2746-6) corrected for a body temp of 37C pCO2 Kojo (test code = 35.9 See_Comment L [Auto mated message] 2020-05) The system [employer] generated this result transmit eugene reference range : 41.0 - 51.0 mmH g. The reference r ashley was not used to interpret this result as normal/abnormal . pO2 Kojo (test code = 56 mmHg 2705-2) HCO3 Kojo (test code = 18 mmol/L 21-28 L 70545-5) Base Excess Kojo (test -7 mmol/L -2-3 L code = 1927-3) O2 Sat Kojo (test code = 90 % 2711-0) Lab Interpretation (test Abnormal code = 88218-6) [facility] Test Item Value Reference Range Interpretation Comments pH Kojo (test code = 7.31 7.32-7.43 L Results are 2746-6) corrected for a body temp of 37C pCO2 Kojo (test code = 35.9 See_Comment L [Auto mated message] 2020-05) The system [employer]is[employer] generated this result transmit eugene reference range : 41.0 - 51.0 mmH g. The reference r ashley was not used to interpret this result as normal/abnormal . pO2 Kojo (test code = 56 mmHg 2705-2) HCO3 Kojo (test code = 18 mmol/L 21-28 L 15639-0) Base Excess Kojo (test -7 mmol/L -2-3 L code = 1927-3) O2 Sat Kojo (test code = 90 % 2711-0) Lab Interpretation (test Abnormal code = 49713-9) [facility]21 Test Item Value Reference Range Interpretation Comments pH Kojo (test code = 7.31 7.32-7.43 L Results are 2746-6) corrected for a body temp of 37C pCO2 Kojo (test code = 35.9 See_Comment L [Auto mated message] 2020-05) The system [employer]is[employer] generated this result transmit eugene reference range : 41.0 - 51.0 mmH g. The reference r ashley was not used to interpret this result as normal/abnormal . pO2 Kojo (test code = 56 mmHg 2705-2) HCO3 Kojo (test code = 18 mmol/L 21-28 L 49212-0) Base Excess Kojo (test -7 mmol/L -2-3 L code = 1927-3) O2 Sat Kojo (test code = 90 % 2711-0) Lab Interpretation (test Abnormal code = 43931-6) [facility]21 Test Item Value Reference Range Interpretation Comments pH Kojo (test code = 7.31 7.32-7.43 L Results are 2746-6) corrected for a body temp of 37C pCO2 Kojo (test code = 35.9 See_Comment L [Auto mated message] 2020-05) The system [employer] generated this result transmit eugene reference range : 41.0 - 51.0 mmH g. The reference r ashley was not used to interpret this result as normal/abnormal . pO2 Kojo (test code = 56 mmHg 2705-2) HCO3 Kojo (test code = 18 mmol/L 21-28 L 10315-0) Base Excess Kojo (test -7 mmol/L -2-3 L code = 1927-3) O2 Sat Kojo (test code = 90 % 2711-0) Lab Interpretation (test Abnormal code = 04882-7) [facility]21 Test Item Value Reference Range Interpretation Comments pH Kojo (test code = 7.31 7.32-7.43 L Results are 2746-6) corrected for a body temp of 37C pCO2 Kojo (test code = 35.9 See_Comment L [Auto mated message] 2020-05) The system [employer] generated this result transmit eugene reference range : 41.0 - 51.0 mmH g. The reference r ashley was not used to interpret this result as normal/abnormal . pO2 Kojo (test code = 56 mmHg 2705-2) HCO3 Kojo (test code = 18 mmol/L 21-28 L 82039-2) Base Excess Kojo (test -7 mmol/L -2-3 L code = 1927-3) O2 Sat Kojo (test code = 90 % 2711-0) Lab Interpretation (test Abnormal code = 68818-1) [facility]21 Test Item Value Reference Range Interpretation Comments pH Kojo (test code = 7.31 7.32-7.43 L Results are 2746-6) corrected for a body temp of 37C pCO2 Kojo (test code = 35.9 See_Comment L [Auto mated message] 2020-05) The system [employer] generated this result transmit eugene reference range : 41.0 - 51.0 mmH g. The reference r ashley was not used to interpret this result as normal/abnormal . pO2 Kojo (test code = 56 mmHg 2705-2) HCO3 Kojo (test code = 18 mmol/L 21-28 L 79258-5) Base Excess Kojo (test -7 mmol/L -2-3 L code = 1927-3) O2 Sat Kojo (test code = 90 % 2711-0) Lab Interpretation (test Abnormal code = 15200-7) [facility]21 Test Item Value Reference Range Interpretation Comments pH Kojo (test code = 7.31 7.32-7.43 L Results are 2746-6) corrected for a body temp of 37C pCO2 Kojo (test code = 35.9 See_Comment L [Auto mated message] 2020-05) The system [employer] generated this result transmit eugene reference range : 41.0 - 51.0 mmH g. The reference r ashley was not used to interpret this result as normal/abnormal . pO2 Kojo (test code = 56 mmHg 2705-2) HCO3 Kojo (test code = 18 mmol/L 21-28 L 06010-6) Base Excess Kojo (test -7 mmol/L -2-3 L code = 1927-3) O2 Sat Kojo (test code = 90 % 2711-0) Lab Interpretation (test Abnormal code = 63690-5) [facility] [id number] 07:39:31 Test Item Value Reference Range Interpretation Comments Calcium Lvl (test code = 79282-0) 7.7 mg/dL 8.4-10.2 L Lab Interpretation (test code = Abnormal 41090-7) [facility] [id number] 07:39:31 Test Item Value Reference Range Interpretation Comments Calcium Lvl (test code = 19332-9) 7.7 mg/dL 8.4-10.2 L Lab Interpretation (test code = Abnormal 33863-1) [facility] [id number] 07:39:31 Test Item Value Reference Range Interpretation Comments Calcium Lvl (test code = 36402-0) 7.7 mg/dL 8.4-10.2 L Lab Interpretation (test code = Abnormal 29101-3) [facility] [id number] 07:39:31 Test Item Value Reference Range Interpretation Comments Calcium Lvl (test code = 44636-7) 7.7 mg/dL 8.4-10.2 L Lab Interpretation (test code = Abnormal 13827-6) [facility] [id number] 07:39:31 Test Item Value Reference Range Interpretation Comments Calcium Lvl (test code = 34330-1) 7.7 mg/dL 8.4-10.2 L Lab Interpretation (test code = Abnormal 52708-7) [facility] [id number] 07:39:31 Test Item Value Reference Range Interpretation Comments Calcium Lvl (test code = 39594-5) 7.7 mg/dL 8.4-10.2 L Lab Interpretation (test code = Abnormal 48216-1) [facility] [id number] 07:39:31 Test Item Value Reference Range Interpretation Comments Calcium Lvl (test code = 21085-4) 7.7 mg/dL 8.4-10.2 L Lab Interpretation (test code = Abnormal 00804-1) [facility] [id number] 09:06:45 Test Item Value Reference Range Interpretation Comments ABORh Confirm. (test code = 882-1) A POS [facility] [id number] 09:06:45 Test Item Value Reference Range Interpretation Comments ABORh Confirm. (test code = 882-1) A POS [facility] [id number] 09:06:45 Test Item Value Reference Range Interpretation Comments ABORh Confirm. (test code = 882-1) A POS [facility] [id number] 09:06:45 Test Item Value Reference Range Interpretation Comments ABORh Confirm. (test code = 882-1) A POS [facility] [id number] 09:06:45 Test Item Value Reference Range Interpretation Comments ABORh Confirm. (test code = 882-1) A POS [facility] [id number] 09:06:45 Test Item Value Reference Range Interpretation Comments ABORh Confirm. (test code = 882-1) A POS [facility] [id number] 09:06:45 Test Item Value Reference Range Interpretation Comments ABORh Confirm. (test code = 882-1) [facility] [id number] 09:06:45 Test Item Value Reference Range Interpretation Comments ABORh Confirm. (test code = 882-1) A POS [facility] [id number] 09:06:45 Test Item Value Reference Range Interpretation Comments ABORh Confirm. (test code = 882-1) A POS [facility] [id number] 09:06:45 Test Item Value Reference Range Interpretation Comments ABORh Confirm. (test code = 882-1) A [facility] [id number] 09:06:45 Test Item Value Reference Range Interpretation Comments ABORh Confirm. (test code = 882-1) A POS [facility] [id number] 09:06:45 Test Item Value Reference Range Interpretation Comments ABORh Confirm. (test code = 882-1) A POS [facility] [id number] 09:06:45 Test Item Value Reference Range Interpretation Comments ABORh Confirm. (test code = 882-1) A POS [facility] [id number] 09:06:45 Test Item Value Reference Range Interpretation Comments ABORh Confirm. (test code = 882-1) A POS [facility] [id number] 09:06:45 Test Item Value Reference Range Interpretation Comments ABORh Confirm. (test code = 882-1) A POS [facility] [id number] 09:06:45 Test Item Value Reference Range Interpretation Comments ABORh Confirm. (test code = 882-1) [facility] 08:08:13 Test Item Value Reference Range Interpretation Comments UA WBC (test code = See_Comment H Some rep orting 03068-5) parameters with in the Urinalysis test have changed due to the implementation of new instrumentation in the [facility], al lowing greater sensiti vity of measurement. Urinalysis resu lts reported by the [facility] using existing instrumentation , as well as Urinaly sis testing perform ed manually or by backup methodology at the [facility] [place] l remain relative ly unchanged. New [...] = 11 See_Comment H [Automa eugene message] 51472-9) The system Conisus generated this result transmitted ref erence range: 0 - 2 /H PF. The reference range was not used to int erpret this result as normal/abnormal . UA Mucous (test code = TRACE Not Seen-Trace 49722-0) /HPF UA Bacteria (test code NOT SEEN NOT SEEN /HPF = 40113-7) UA Squam Epi (test 1+ None-Occasional A code = 10642-2) /HPF Lab Interpretation Abnormal (test code = 01826-2) [facility] 20[facility]-25 08:08:13 Test Item Value Reference Range Interpretation Comments UA WBC (test code = See_Comment H Some rep orting 60927-1) parameters with in the Urinalysis test have changed due to the implementation of new instrumentation in the [facility], [facility] greater sensiti vity of measurement. Urinalysis resu lts reported by the [facility] enters using existing instrumentation , as well as Urinaly sis testing perform ed manually or by backup methodology at the [facility] yola l remain relative ly unchanged. New reporting tracie eters and units will not be reported for [facility]. [Auto mated message] The sy stem which generated this result transmit eugene reference range : 0 - 2 /HPF. The refer ence range was not u sed to interpret this result as normal/abnor mal. UA RBC (test code = 11 See_Comment H [Automa eugene message] 77107-1) The system Conisus generated this result transmitted ref erence range: 0 - 2 /H PF. The reference range was not used to int erpret this result as normal/abnormal . UA Mucous (test code = TRACE Not Seen-Trace 67001-6) /HPF UA Bacteria (test code NOT SEEN NOT SEEN /HPF = 36447-3) UA Squam Epi (test 1+ None-Occasional A code = 19336-7) /HPF Lab Interpretation Abnormal (test code = 71797-4) [facility] 20[facility]-25 08:08:13 Test Item Value Reference Range Interpretation Comments UA WBC (test code = See_Comment H Some rep orting 29912-6) parameters with in the Urinalysis test have changed due to the implementation of new instrumentation in the [facility] [place], al lowing greater sensiti vity of measurement. Urinalysis resu lts reported by the [facility] enters using existing instrumentation , as well as Urinaly sis testing perform ed manually or by backup methodology at the [facility] yola l remain relative ly unchanged. New reporting tracie eters and units will not be reported [facility]. [Auto mated message] The sy stem which generated this result transmit eugene reference range : 0 - 2 /HPF. The refer ence range was not u sed to interpret this result as normal/abnor mal. UA RBC (test code = 11 See_Comment H [Automa eugene message] 73758-0) The system Conisus generated this result transmitted ref erence range: 0 - 2 /H PF. The reference range was not used to int erpret this result as normal/abnormal . UA Mucous (test code = TRACE Not Seen-Trace 66183-5) /HPF UA Bacteria (test code NOT SEEN NOT SEEN /HPF = 23011-8) UA Squam Epi (test 1+ None-Occasional A code = 80062-9) /HPF Lab Interpretation Abnormal (test code = 75011-7) [facility] [place] 20[facility]25 08:08:13 Test Item Value Reference Range Interpretation Comments UA WBC (test code = See_Comment H Some rep orting 65913-3) parameters with in the Urinalysis test have changed due to the implementation of new instrumentation in the [facility], al lowing greater sensiti vity of measurement. Urinalysis resu lts reported by the [facility] enters using existing instrumentation , as well as Urinaly sis testing perform ed manually or by backup methodology at the [facility] yola l remain relative ly unchanged. New reporting tracie eters and units will not be reported for [facility]. [Auto mated message] The sy stem which generated this result transmit eugene reference range : 0 - 2 /HPF. The refer ence range was not u sed to interpret this result as normal/abnor mal. UA RBC (test code = 11 See_Comment H [Automa eugene message] 88832-6) The system Conisus generated this result transmitted ref erence range: 0 - 2 /H PF. The reference range was not used to int erpret this result as normal/abnormal . UA Mucous (test code = TRACE Not Seen-Trace 60974-1) /HPF UA Bacteria (test code NOT SEEN NOT SEEN /HPF = 23149-2) UA Squam Epi (test 1+ None-Occasional A code = 28432-5) /HPF Lab Interpretation Abnormal (test code = 56251-5) [facility] 08:08:13 Test Item Value Reference Range Interpretation Comments UA WBC (test code = See_Comment H Some rep orting 09276-1) parameters with in the Urinalysis test have changed due to the implementation of new instrumentation in the [facility] [place], al lowing greater sensiti vity of measurement. Urinalysis resu lts reported by the [facility] enters using existing instrumentation , as well as Urinaly sis testing perform ed manually or by backup methodology at the [facility] yola l remain relative ly unchanged. New [...] = 11 See_Comment H [Automa eugene message] 71985-8) The system Conisus generated this result transmitted ref erence range: 0 - 2 /H PF. The reference range was not used to int erpret this result as normal/abnormal . UA Mucous (test code = TRACE Not Seen-Trace 72414-9) /HPF UA Bacteria (test code NOT SEEN NOT SEEN /HPF = 98237-5) UA Squam Epi (test 1+ None-Occasional A code = 15930-1) /HPF Lab Interpretation Abnormal (test code = 53352-8) [facility] 20[facility]-25 08:08:13 Test Item Value Reference Range Interpretation Comments UA WBC (test code = See_Comment H Some rep orting 82871-2) parameters with in the Urinalysis test have changed due to the implementation of new instrumentation in the [facility] [place], al lowing greater sensiti vity of measurement. Urinalysis resu lts reported by the [facility] using existing instrumentation , as well as Urinaly sis testing perform ed manually or by backup methodology at the [facility] yola l remain relative ly unchanged. New reporting tracie eters and units will not be reported for [facility]. [Auto mated message] The sy stem which generated this result transmit eugene reference range : 0 - 2 /HPF. The refer ence range was not u sed to interpret this result as normal/abnor mal. UA RBC (test code = 11 See_Comment H [Automa eugene message] 76980-7) The system Conisus generated this result transmitted ref erence range: 0 - 2 /H PF. The reference range was not used to int erpret this result as normal/abnormal . UA Mucous (test code = TRACE Not Seen-Trace 86352-2) /HPF UA Bacteria (test code NOT SEEN NOT SEEN /HPF = 35737-3) UA Squam Epi (test 1+ None-Occasional A code = 83090-3) /HPF Lab Interpretation Abnormal (test code = 28030-7) [facility] [place] 2022-03-25 08:08:13 Test Item Value Reference Range Interpretation Comments UA WBC (test code = See_Comment H Some rep orting 80169-5) parameters with in the Urinalysis test have changed due to the implementation of new instrumentation in the [facility], al lowing greater sensiti vity of measurement. Urinalysis resu lts reported by the [facility] enters using existing instrumentation , as well as Urinaly sis testing perform ed manually or by backup methodology at the [facility] [place]ola l remain relative ly unchanged. New reporting tracie eters and units will not be reported for [facility]. [Auto mated message] The sy stem which generated this result transmit eugene reference range : 0 - 2 /HPF. The refer ence range was not u sed to interpret this result as normal/abnor mal. UA RBC (test code = 11 See_Comment H [Automa eugene message] 20861-4) The system Conisus generated this result transmitted ref erence range: 0 - 2 /H PF. The reference range was not used to int erpret this result as normal/abnormal . UA Mucous (test code = TRACE Not Seen-Trace 46885-2) /HPF UA Bacteria (test code NOT SEEN NOT SEEN /HPF = 23623-9) UA Squam Epi (test 1+ None-Occasional A code = 93247-9) /HPF Lab Interpretation Abnormal (test code = 24854-0) [facility] 08:08:13 Test Item Value Reference Range Interpretation Comments UA WBC (test code = See_Comment H Some rep orting 03836-9) parameters with in the Urinalysis test have changed due to the implementation of new instrumentation in the [facility], al lowing greater sensiti vity of measurement. Urinalysis resu lts reported by the [facility] enters using existing instrumentation , as well as Urinaly sis testing perform ed manually or by backup methodology at the [facility] yola l remain relative ly unchanged. New reporting tracie eters and units will not be reported for [facility]. [Auto mated message] The sy stem which generated this result transmit eugene reference range : 0 - 2 /HPF. The refer ence range was not u sed to interpret this result as normal/abnor mal. UA RBC (test code = 11 See_Comment H [Automa eugene message] 40471-4) The system Conis[employer] generated this result transmitted ref erence range: 0 - 2 /H PF. The reference range was not used to int erpret this result as normal/abnormal . UA Mucous (test code = TRACE Not Seen-Trace 92233-5) /HPF UA Bacteria (test code NOT SEEN NOT SEEN /HPF = 52548-8) UA Squam Epi (test 1+ None-Occasional A code = 36895-8) /HPF Lab Interpretation Abnormal (test code = 27247-2) [facility] 08:08:13 Test Item Value Reference Range Interpretation Comments UA WBC (test code = See_Comment H Some rep orting 71610-8) parameters with in the Urinalysis test have changed due to the implementation of new instrumentation in the [facility], al lowing greater sensiti vity of measurement. Urinalysis resu lts reported by the [facility] enters using existing instrumentation , as well as Urinaly sis testing perform ed manually or by backup methodology at the [facility] yola l remain relative ly unchanged. New reporting tracie eters and units will not be reported for [facility]. [Auto mated message] The sy stem which generated this result transmit eugene reference range : 0 - 2 /HPF. The refer ence range was not u sed to interpret this result as normal/abnor mal. UA RBC (test code = 11 See_Comment H [Automa eugene message] 78153-6) The system Conis[employer] generated this result transmitted ref erence range: 0 - 2 /H PF. The reference range was not used to int erpret this result as normal/abnormal . UA Mucous (test code = TRACE Not Seen-Trace 27912-5) /HPF UA Bacteria (test code NOT SEEN NOT SEEN /HPF = 84303-6) UA Squam Epi (test 1+ None-Occasional A code = 31981-9) /HPF Lab Interpretation Abnormal (test code = 04656-1) [facility] 08:08:13 Test Item Value Reference Range Interpretation Comments UA WBC (test code = See_Comment H Some rep orting 83848-3) parameters with in the Urinalysis test have changed due to the implementation of new instrumentation in the [facility], [facility] greater sensiti vity of measurement. Urinalysis resu lts reported by the [facility] enters using existing instrumentation , as well as Urinaly sis testing perform ed manually or by backup methodology at the [facility] yola l remain relative ly unchanged. New reporting tracie eters and units will not be reported for [facility]. [Auto mated message] The sy stem which generated this result transmit eugene reference range : 0 - 2 /HPF. The refer ence range was not u sed to interpret this result as normal/abnor mal. UA RBC (test code = 11 See_Comment H [Automa eugene message] 88971-4) The system [employer] generated this result transmitted ref erence range: 0 - 2 /H PF. The reference range was not used to int erpret this result as normal/abnormal . UA Mucous (test code = TRACE Not Seen-Trace 59629-8) /HPF UA Bacteria (test code NOT SEEN NOT SEEN /HPF = 65885-7) UA Squam Epi (test 1+ None-Occasional A code = 67899-6) /HPF Lab Interpretation Abnormal (test code = 09749-9) [facility] 08:08:13 Test Item Value Reference Range Interpretation Comments UA WBC (test code = See_Comment H Some rep orting 41961-3) parameters with in the Urinalysis test have changed due to the implementation of new instrumentation in the [facility], al lowing greater sensiti vity of measurement. Urinalysis resu lts reported by the [facility] enters using existing instrumentation , as well as Urinaly sis testing perform ed manually or by backup methodology at the [facility] yola l remain relative ly unchanged. New reporting tracie eters and units will not be reported for [facility]. [Auto mated message] The sy stem which generated this result transmit eugene reference range : 0 - 2 /HPF. The refer ence range was not u sed to interpret this result as normal/abnor mal. UA RBC (test code = 11 See_Comment H [Automa eugene message] 27230-6) The system [employer] generated this result transmitted ref erence range: 0 - 2 /H PF. The reference range was not used to int erpret this result as normal/abnormal . UA Mucous (test code = TRACE Not Seen-Trace 98228-5) /HPF UA Bacteria (test code NOT SEEN NOT SEEN /HPF = 20354-3) UA Squam Epi (test 1+ None-Occasional A code = 32287-2) /HPF Lab Interpretation Abnormal (test code = 05430-6) [facility] 2022-[facility]-25 08:08:13 Test Item Value Reference Range Interpretation Comments UA WBC (test code = See_Comment H Some rep orting 48699-8) parameters with in the Urinalysis test have changed due to the implementation of new instrumentation in the [facility] [place], al lowing greater sensiti vity of measurement. Urinalysis resu lts reported by the [facility] enters using existing instrumentation , as well as Urinaly sis testing perform ed manually or by backup methodology at the [facility] yola l remain relative ly unchanged. New reporting tracie eters and units will not be reported for [facility]. [Auto mated message] The sy stem which generated this result transmit eugene reference range : 0 - 2 /HPF. The refer ence range was not u sed to interpret this result as normal/abnor mal. UA RBC (test code = 11 See_Comment H [Automa eugene message] 46668-7) The system [employer] generated this result transmitted ref erence range: 0 - 2 /H PF. The reference range was not used to int erpret this result as normal/abnormal . UA Mucous (test code = TRACE Not Seen-Trace 39873-2) /HPF UA Bacteria (test code NOT SEEN NOT SEEN /HPF = 14541-2) UA Squam Epi (test 1+ None-Occasional A code = 35096-4) /HPF Lab Interpretation Abnormal (test code = 85243-0) [facility] 08:08:13 Test Item Value Reference Range Interpretation Comments UA WBC (test code = See_Comment H Some rep orting 24514-3) parameters with in the Urinalysis test have changed due to the implementation of new instrumentation in the [facility], [facility] sensiti vity of measurement. Urinalysis resu lts reported by the [facility] enters using existing instrumentation , as well as Urinaly sis testing perform ed manually or by backup methodology at the [facility] yola l remain relative ly unchanged. New reporting tracie eters and units will not be reported for [facility]. [Auto mated message] The sy stem which generated this result transmit eugene reference range : 0 - 2 /HPF. The refer ence range was not u sed to interpret this result as normal/abnor mal. UA RBC (test code = 11 See_Comment H [Automa eugene message] 55036-8) The system [employer] generated this result transmitted ref erence range: 0 - 2 /H PF. The reference range was not used to int erpret this result as normal/abnormal . UA Mucous (test code = TRACE Not Seen-Trace 55597-4) /HPF UA Bacteria (test code NOT SEEN NOT SEEN /HPF = 30042-4) UA Squam Epi (test 1+ None-Occasional A code = 85289-3) /HPF Lab Interpretation Abnormal (test code = 92358-6) [facility] 20[facility]-25 08:08:13 Test Item Value Reference Range Interpretation Comments UA WBC (test code = See_Comment H Some rep orting 20302-3) parameters with in the Urinalysis test have changed due to the implementation of new instrumentation in the [facility], al lowing greater sensiti vity of measurement. Urinalysis resu lts reported by the [facility] enters using existing instrumentation , as well as Urinaly sis testing perform ed manually or by backup methodology at the [facility] yola l remain relative ly unchanged. New reporting tracie eters and units will not be reported for [facility]. [Auto mated message] The sy stem which generated this result transmit eugene reference range : 0 - 2 /HPF. The refer ence range was not u sed to interpret this result as normal/abnor mal. UA RBC (test code = 11 See_Comment H [Automa eugene message] 17608-8) The system [employer] generated this result transmitted ref erence range: 0 - 2 /H PF. The reference range was not used to int erpret this result as normal/abnormal . UA Mucous (test code = TRACE Not Seen-Trace 60403-0) /HPF UA Bacteria (test code NOT SEEN NOT SEEN /HPF = 71085-9) UA Squam Epi (test 1+ None-Occasional A code = 06652-9) /HPF Lab Interpretation Abnormal (test code = 70463-3) [facility] 08:08:13 Test Item Value Reference Range Interpretation Comments UA WBC (test code = See_Comment H Some rep orting 89061-0) parameters with in the Urinalysis test have changed due to the implementation of new instrumentation in the [facility], al lowing greater sensiti vity of measurement. Urinalysis resu lts reported by the [facility] enters using existing instrumentation , as well as Urinaly sis testing perform ed manually or by backup methodology at the [facility] yola l remain relative ly unchanged. New reporting tracie eters and units will not be reported for [facility]. [Auto mated message] The sy stem which generated this result transmit eugene reference range : 0 - 2 /HPF. The refer ence range was not u sed to interpret this result as normal/abnor mal. UA RBC (test code = 11 See_Comment H [Automa eugene message] 51420-3) The system [employer] generated this result transmitted ref erence range: 0 - 2 /H PF. The reference range was not used to int erpret this result as normal/abnormal . UA Mucous (test code = TRACE Not Seen-Trace 15765-5) /HPF UA Bacteria (test code NOT SEEN NOT SEEN /HPF = 94579-4) UA Squam Epi (test 1+ None-Occasional A code = 05987-2) /HPF Lab Interpretation Abnormal (test code = 54106-8) [facility] 2022-[facility]-25 08:08:13 Test Item Value Reference Range Interpretation Comments UA WBC (test code = See_Comment H Some rep orting 66050-1) parameters with in the Urinalysis test have changed due to the implementation of new instrumentation in the [facility], [facility] greater sensiti vity of measurement. Urinalysis resu lts reported by the [facility] enters using existing instrumentation , as well as Urinaly sis testing perform ed manually or by backup methodology at the [facility] yola l remain relative ly unchanged. New reporting tracie eters and units will not be reported for [facility]. [Auto mated message] The sy stem which generated this result transmit eugene reference range : 0 - 2 /HPF. The refer ence range was not u sed to interpret this result as normal/abnor mal. UA RBC (test code = 11 See_Comment H [Automa eugene message] 41273-6) The system [employer] generated this result transmitted ref erence range: 0 - 2 /H PF. The reference range was not used to int erpret this result as normal/abnormal . UA Mucous (test code = TRACE Not Seen-Trace 61528-0) /HPF UA Bacteria (test code NOT SEEN NOT SEEN /HPF = 99986-6) UA Squam Epi (test 1+ None-Occasional A code = 30588-1) /HPF Lab Interpretation Abnormal (test code = 99027-7) [facility] [id number] 07:26:33 Test Item Value Reference Range Interpretation [...] Valid (test code = 6710) Performing Lab [facility] (test code = of Toby Worrell 74967) Clinical Lab, [address] [place] [address] 30; Hi Lift Operator: Guerline Olmstead MD; Waived Point of Care Testing - Luz [facility] Test Item Value Reference Range [...] Valid (test code = 6710) Performing Lab [facility] (test code = of Toby HENDERSON And erson 19981) Clinical Lab, [address] [place] [address] 30; Hi Lift Operator: Guerline Olmstead MD; Waived Point of Care Testing - Luz Maria levi [facility] 07:26:33 Test Item Value Reference Range [...] Valid (test code = 6710) Performing Lab [facility] (test code = of Toby HENDERSON And erson 54990) Clinical Lab, [address] [place] [address] 30; Hi Lift Operator: Guerline Olmstead MD; Waived Point of Care Testing - Luz [facility] 07:26:33 Test Item Value Reference Range [...] Valid (test code = 6710) Performing Lab [facility] (test code = of Toby HENDERSON And erson 69412) Clinical Lab, [address] [place] [address] 30; Hi Lift Operator: Guerline Olmstead MD; Waived Point of Care Testing - Luz Maria [facility] 07:26:33 Test Item Value Reference Range [...] Valid (test code = 6710) Performing Lab [facility] (test code = of Toby HENDERSON And erson 49017) Clinical Lab, [address] [place] [address] 30; Hi Lift Operator: Guerline Olmstead MD; Waived Point of Care Testing - Luz Maria levi [facility] 07:26:33 Test Item Value Reference Range [...] Valid (test code = 6710) Performing Lab [facility] (test code = of Toby Worrell 81006) Clinical Lab, [address] [place] [address] 30; Hi Lift Operator: Guerline Olmstead MD; Waived Point of Care Testing - Luz Maria levi [facility] 07:26:33 Test Item Value Reference Range [...] Valid (test code = 6710) Performing Lab [facility] (test code = of Toby HENDERSON And ersflaco 23657) Clinical Lab, [address] [place] [address] 30; Hi Lift Operator: Guerline Olmstead MD; Waived Point of Care Testing - Luz Maria levi MD [facility] [id number] 07:26:33 Test Item Value Reference Range Interpretation [...] Valid (test code = 6710) Performing Lab [facility] (test code = of Toby HENDERSON And ersflaco 34934) Clinical Lab, [address] [place] [address] 30; Hi Lift Operator: Guerline Olmstead MD; Waived Point of Care Testing - Luz Maria levi [facility] 07:26:33 Test Item Value Reference Range [...] Valid (test code = 6710) Performing Lab [facility] (test code = of Toby HENDERSON And erson 56987) Clinical Lab, [address] [place] [address] 30; Hi Lift Operator: Guerline Olmstead MD; Waived Point of Care Testing - Luz Maria levi [facility] 07:26:33 Test Item Value Reference Range [...] Valid (test code = 6710) Performing Lab [facility] (test code = of Toby HENDERSON And ersflaco 97160) Clinical Lab, [address] [place] [address] 30; Hi Lift Operator: Guerline Olmstead MD; Waived Point of Care Testing - Luz Maria levi [facility] 07:26:33 Test Item Value Reference Range [...] Valid (test code = 6710) Performing Lab [facility] (test code = of Toby HENDERSON And ersflaco 34278) Clinical Lab, [address] [place] [address] 30; Hi Lift Operator: Guerline Olmstead MD; Waived Point of Care Testing - Luz Maria levi [facility] 07:26:33 Test Item Value Reference Range [...] Valid (test code = 6710) Performing Lab [facility] (test code = of Toby HENDERSON And erson 39495) Clinical Lab, [address] [place] [address] 30; Hi Lift Operator: Guerline Olmstead MD; Waived Point of Care Testing - Luz Maria levi MD [facility] [id number] 07:26:33 Test Item Value Reference Range Interpretation [...] Valid (test code = 6710) Performing Lab [facility] (test code = of Toby HENDERSON And ersflaco 23682) Clinical Lab, [address] [place] [address] 30; Hi Lift Operator: Guerline Olmstead MD; Waived Point of Care Testing - Luz Maria levi [facility] 07:26:33 Test Item Value Reference Range [...] Valid (test code = 6710) Performing Lab [facility] (test code = of Toby HENDERSON And soraya 74038) Clinical Lab, [address] [place] [address] 30; Hi Lift Operator: Guerline Olmstead MD; Waived Point of Care Testing - Luz Maria levi [facility] 07:26:33 Test Item Value Reference Range [...] Valid (test code = 6710) Performing Lab [facility] (test code = of Toby HENDERSON And soraya 83516) Clinical Lab, [address] [place] [address] 30; Hi Lift Operator: Guerline Olmstead MD; Waived Point of Care Testing - Luz Maria levi MD [facility] [id number] 07:26:33 Test Item Value Reference Range Interpretation [...] Valid (test code = 6710) Performing Lab [facility] (test code = of [place] And soraya [address]) Clinical Lab, [address] [place] [address] 30; Hi Lift Operator: Guerline Olmstead MD; Waived Point of Care Testing - Luz Maria levi MD [facility] if [id number] 06:57:19 Test Item Value Reference Range Interpretation Comments UA Color (test code = 87003-4) Yellow Straw-Yellow UA Appear (test code = 88274-6) Hazy Clear A UA Glucose (test code [...] A Lab Interpretation (test code = Abnormal 70635-3) [facility]scopic if [id number] 06:57:19 Test Item Value Reference Range Interpretation Comments UA Color (test code = 50102-3) Yellow Straw-Yellow UA Appear (test code = 09593-2) Hazy Clear A UA Glucose (test code [...] A Lab Interpretation (test code = Abnormal 37512-8) [facility]/Microscopic if [id number] 06:57:19 Test Item Value Reference Range Interpretation Comments UA Color (test code = 58855-5) Yellow Straw-Yellow UA Appear (test code = 77942-0) Hazy Clear A UA Glucose (test code [...] A Lab Interpretation (test code = Abnormal 43369-7) [facility]/Microscopic if [id number] 06:57:19 Test Item Value Reference Range Interpretation Comments UA Color (test code = 20750-1) Yellow Straw-Yellow UA Appear (test code = 16757-6) Hazy Clear A UA Glucose (test code [...] A Lab Interpretation (test code = Abnormal 36619-8) [facility]/Microscopic if [id number] 06:57:19 Test Item Value Reference Range Interpretation Comments UA Color (test code = 90841-2) Yellow Straw-Yellow UA Appear (test code = 89731-3) Hazy Clear A UA Glucose (test code [...] A Lab Interpretation (test code = Abnormal 37167-8) [facility]/Microscopic if [id number] 06:57:19 Test Item Value Reference Range Interpretation Comments UA Color (test code = 95587-6) Yellow Straw-Yellow UA Appear (test code = 92010-6) Hazy Clear A UA Glucose (test code [...] A Lab Interpretation (test code = Abnormal 46443-0) [facility]/Microscopic if [id number] 06:57:19 Test Item Value Reference Range Interpretation Comments UA Color (test code = 85209-1) Yellow Straw-Yellow UA Appear (test code = 74111-1) Hazy Clear A UA Glucose (test code [...] A Lab Interpretation (test code = Abnormal 09060-6) [facility]/Microscopic if [id number] 06:57:19 Test Item Value Reference Range Interpretation Comments UA Color (test code = 61493-2) Yellow Straw-Yellow UA Appear (test code = 53714-3) Hazy Clear A UA Glucose (test code [...] A Lab Interpretation (test code = Abnormal 76410-3) [facility]/Microscopic if [id number] 06:57:19 Test Item Value Reference Range Interpretation Comments UA Color (test code = 31184-1) Yellow Straw-Yellow UA Appear (test code = 69682-9) Hazy Clear A UA Glucose (test code [...] A Lab Interpretation (test code = Abnormal 60890-5) [facility]/Microscopic if [id number] 06:57:19 Test Item Value Reference Range Interpretation Comments UA Color (test code = 81965-9) Yellow Straw-Yellow UA Appear (test code = 53415-1) Hazy Clear A UA Glucose (test code [...] A Lab Interpretation (test code = Abnormal 41871-3) [facility]/Microscopic if [id number] 06:57:19 Test Item Value Reference Range Interpretation Comments UA Color (test code = 52578-4) Yellow Straw-Yellow UA Appear (test code = 60381-3) Hazy Clear A UA Glucose (test code [...] A Lab Interpretation (test code = Abnormal 55646-1) [facility]/Microscopic if [id number] 06:57:19 Test Item Value Reference Range Interpretation Comments UA Color (test code = 92500-9) Yellow Straw-Yellow UA Appear (test code = 69244-3) Hazy Clear A UA Glucose (test code [...] A Lab Interpretation (test code = Abnormal 22180-9) [facility]/Microscopic if [id number] 06:57:19 Test Item Value Reference Range Interpretation Comments UA Color (test code = 38468-8) Yellow Straw-Yellow UA Appear (test code = 96180-4) Hazy Clear A UA Glucose (test code [...] A Lab Interpretation (test code = Abnormal 36908-9) [facility]/Microscopic if [id number] 06:57:19 Test Item Value Reference Range Interpretation Comments UA Color (test code = 41643-9) Yellow Straw-Yellow UA Appear (test code = 89246-4) Hazy Clear A UA Glucose (test code [...] A Lab Interpretation (test code = Abnormal 32231-5) [facility]/Microscopic if [id number] 06:57:19 Test Item Value Reference Range Interpretation Comments UA Color (test code = 17702-9) Yellow Straw-Yellow UA Appear (test code = 85768-5) Hazy Clear A UA Glucose (test code [...] A Lab Interpretation (test code = Abnormal 26789-0) [facility]/Microscopic if [id number] 06:57:19 Test Item Value Reference Range Interpretation Comments UA Color (test code = 61454-6) Yellow Straw-Yellow UA Appear (test code = 21922-7) Hazy Clear A UA Glucose (test code [...] A Lab Interpretation (test code = Abnormal 15575-3) [facility] [place], Nasopharyngeal [id number] 06:28:01 Test Item Value Reference Range Interpretation Comments RMP Source (test code = Not Applicable 8653) Adenovirus (test code = Not Detected Not Detected 99812-8) Coronavirus 229E (test Not Detected Not Detected code = 28033-3) Coronavirus HKU1 (test Not Detected Not Detected code = 82391-6) Coronavirus NL63 (test Not Detected Not Detected code = 60947-5) Coronavirus OC43 (test Not Detected Not Detected code = 12214-3) COVID19 (SARS-CoV-2) Not Detected Not Detected (test code = 11400-5) Human Metapneumovirus Not Detected Not Detected (test code = 65319-8) Human Not Detected Not Detected Rhinovirus/Enterovirus (test code = 32213-9) Influenza A (test code Not Detected Not Detected = 29766-9) Influenza A H1 (test Not Detected Not Detected code = 04293-7) Influenza A H1 2009 Not Detected Not Detected (test code = 33033-6) Influenza A H3 (test Not Detected Not Detected code = 54608-0) Influenza B (test code Not Detected Not Detected = 14054-8) Parainfluenza 1 (test Not Detected Not Detected code = 02937-7) Parainfluenza 2 (test Not Detected Not Detected code = 48277-6) Parainfluenza 3 (test Not Detected Not Detected code = 51162-9) Parainfluenza 4 (test Not Detected Not Detected code = 76066-2) Respiratory Syncytial Not Detected Not Detected Virus (test code = 58947-4) Bordetella Not Detected Not Detected Parapertussis (test code = 97904-9) Bordetella pertussis Not Detected Not Detected (test code = 58612-0) Chlamydiophila Not Detected Not Detected pneumoniae (test code = 97642-3) Mycoplasma pneumoniae Not Detected Not Detected (test code = 02732-6) CHANDRAKANT (test code = CHANDRAKANT) Has patient had a positive for COVID-19 result in the last 3 months?->No The [employer] RP2.1 is a real-time, nested multiplexed polymerase chain reaction test designed to simultaneously identify nucleic acids from 22 different viruses and bacteria associated with respiratory tract infection, including SARS-CoV-2, from a single nasopharyngeal swab ([employer]) specimen obtained from individuals suspected of respiratory [...] may not be detected by an [employer] specimen. Internal controls are used to monitor [...] and high-complexity tests. The Microbiology Laboratory at [facility], CLIA Accreditation #[id number] and CAP Accreditation #[id number], verified the performance characteristics of this assay. [facility] Laboratory at [facility] performs the assay using the [employer] System. [facility], Nasopharyngeal [id number] 06:28:01 Test Item Value Reference Range Interpretation Comments RMP Source (test code = Not Applicable 8653) Adenovirus (test code = Not Detected Not Detected 58335-2) Coronavirus 229E (test Not Detected Not Detected code = 82383-2) Coronavirus HKU1 (test Not Detected Not Detected code = 85131-8) Coronavirus NL63 (test Not Detected Not Detected code = 11852-1) Coronavirus OC43 (test Not Detected Not Detected code = 50184-8) COVID19 (SARS-CoV-2) Not Detected Not Detected (test code = 89390-6) Human Metapneumovirus Not Detected Not Detected (test code = 48208-3) Human Not Detected Not Detected Rhinovirus/Enterovirus (test code = 97336-0) Influenza A (test code Not Detected Not Detected = 45924-9) Influenza A H1 (test Not Detected Not Detected code = 05083-9) Influenza A H1 2009 Not Detected Not Detected (test code = 86025-6) Influenza A H3 (test Not Detected Not Detected code = 86622-0) Influenza B (test code Not Detected Not Detected = 38920-3) Parainfluenza 1 (test Not Detected Not Detected code = 15166-1) Parainfluenza 2 (test Not Detected Not Detected code = 26553-2) Parainfluenza 3 (test Not Detected Not Detected code = 91271-7) Parainfluenza 4 (test Not Detected Not Detected code = 41559-4) Respiratory Syncytial Not Detected Not Detected Virus (test code = 65840-6) Bordetella Not Detected Not Detected Parapertussis (test code = 45560-2) Bordetella pertussis Not Detected Not Detected (test code = 21274-2) Chlamydiophila Not Detected Not Detected pneumoniae (test code = 75232-9) Mycoplasma pneumoniae Not Detected Not Detected (test code = 53915-9) CHANDRAKANT (test code = CHANDRAKANT) Has patient had a positive for COVID-19 result in the last 3 months?->No The [employer] RP2.1 is a real-time, nested multiplexed polymerase chain reaction test designed to simultaneously identify nucleic acids from 22 different viruses and bacteria associated with respiratory tract infection, including SARS-CoV-2, from a single nasopharyngeal swab ([employer]) specimen obtained from individuals suspected of respiratory [...] may not be detected by an [employer] specimen. Internal controls are used to monitor [...] and high-complexity tests. The Microbiology Laboratory at [facility], CLIA Accreditation #[id number] and CAP Accreditation #[id number], verified the performance characteristics of this assay. [facility] at [facility] performs the assay using the [employer] System. [facility], Nasoph[facility] [id number] 06:28:01 Test Item Value Reference Range Interpretation Comments RMP Source (test code = Not Applicable 8653) Adenovirus (test code = Not Detected Not Detected 69458-5) Coronavirus 229E (test Not Detected Not Detected code = 11603-9) Coronavirus HKU1 (test Not Detected Not Detected code = 14458-2) Coronavirus NL63 (test Not Detected Not Detected code = 83814-5) Coronavirus OC43 (test Not Detected Not Detected code = 69261-0) COVID19 (SARS-CoV-2) Not Detected Not Detected (test code = 01136-1) Human Metapneumovirus Not Detected Not Detected (test code = 24383-0) Human Not Detected Not Detected Rhinovirus/Enterovirus (test code = 33717-2) Influenza A (test code Not Detected Not Detected = 20738-1) Influenza A H1 (test Not Detected Not Detected code = 34727-8) Influenza A H1 2009 Not Detected Not Detected (test code = 13857-5) Influenza A H3 (test Not Detected Not Detected code = 62387-6) Influenza B (test code Not Detected Not Detected = 56664-8) Parainfluenza 1 (test Not Detected Not Detected code = 02179-5) Parainfluenza 2 (test Not Detected Not Detected code = 10762-6) Parainfluenza 3 (test Not Detected Not Detected code = 41322-9) Parainfluenza 4 (test Not Detected Not Detected code = 05125-5) Respiratory Syncytial Not Detected Not Detected Virus (test code = 00262-7) Bordetella Not Detected Not Detected Parapertussis (test code = 67460-4) Bordetella pertussis Not Detected Not Detected (test code = 63288-1) Chlamydiophila Not Detected Not Detected pneumoniae (test code = 61838-2) Mycoplasma pneumoniae Not Detected Not Detected (test code = 67492-1) CHANDRAKANT (test code = CHANDRAKANT) Has patient had a positive for COVID-19 result in the last 3 months?->No The Bio[employer] RP2.1 is a real-time, nested multiplexed polymerase chain reaction test designed to simultaneously identify nucleic acids from 22 different viruses and bacteria associated with respiratory tract infection, including SARS-CoV-2, from a single nasopharyngeal swab ([employer]) specimen obtained from individuals suspected of respiratory [...] may not be detected by an [employer] specimen. Internal controls are used to monitor [...] and high-complexity tests. The [facility]biology Laboratory at [facility], CLIA Accreditation #[id number] and CAP Accreditation #[id number], verified the performance characteristics of this assay. [facility] at [facility] performs the assay using the [employer] System. [facility], Nasopharyngeal [id number] 06:28:01 Test Item Value Reference Range Interpretation Comments RMP Source (test code = Not Applicable 8653) Adenovirus (test code = Not Detected Not Detected 87572-1) Coronavirus 229E (test Not Detected Not Detected code = 02191-6) Coronavirus HKU1 (test Not Detected Not Detected code = 88506-7) Coronavirus NL63 (test Not Detected Not Detected code = 06826-8) Coronavirus OC43 (test Not Detected Not Detected code = 67029-2) COVID19 (SARS-CoV-2) Not Detected Not Detected (test code = 80794-8) Human Metapneumovirus Not Detected Not Detected (test code = 82191-1) Human Not Detected Not Detected Rhinovirus/Enterovirus (test code = 67706-8) Influenza A (test code Not Detected Not Detected = 63866-2) Influenza A H1 (test Not Detected Not Detected code = 97453-7) Influenza A H1 2009 Not Detected Not Detected (test code = 13119-2) Influenza A H3 (test Not Detected Not Detected code = 58293-7) Influenza B (test code Not Detected Not Detected = 85600-9) Parainfluenza 1 (test Not Detected Not Detected code = 96345-7) Parainfluenza 2 (test Not Detected Not Detected code = 82725-4) Parainfluenza 3 (test Not Detected Not Detected code = 54779-2) Parainfluenza 4 (test Not Detected Not Detected code = 35023-1) Respiratory Syncytial Not Detected Not Detected Virus (test code = 52027-8) Bordetella Not Detected Not Detected Parapertussis (test code = 89801-4) Bordetella pertussis Not Detected Not Detected (test code = 81081-7) Chlamydiophila Not Detected Not Detected pneumoniae (test code = 12859-3) Mycoplasma pneumoniae Not Detected Not Detected (test code = 60005-7) CHANDRAKANT (test code = CHANDRAKANT) Has patient had a positive for COVID-19 result in the last 3 months?->No The [employer] RP2.1 is a real-time, nested multiplexed polymerase chain reaction test designed to simultaneously identify nucleic acids from 22 different viruses and bacteria associated with respiratory tract infection, including SARS-CoV-2, from a single nasopharyngeal swab ([employer]) specimen obtained from individuals suspected of respiratory [...] may not be detected by an [employer] specimen. Internal controls are used to monitor [...] and high-complexity tests. The [facility]biology [facility] at [facility], CLIA Accreditation #[id number] and CAP Accreditation #[id number], verified the performance characteristics of this assay. [facility] at [facility] performs the assay using the [employer] System. [facility] Nasopharyngeal [id number] 06:28:01 Test Item Value Reference Range Interpretation Comments RMP Source (test code = Not Applicable 8653) Adenovirus (test code = Not Detected Not Detected 03185-7) Coronavirus 229E (test Not Detected Not Detected code = 15475-1) Coronavirus HKU1 (test Not Detected Not Detected code = 41111-6) Coronavirus NL63 (test Not Detected Not Detected code = 28304-4) Coronavirus OC43 (test Not Detected Not Detected code = 48967-3) COVID19 (SARS-CoV-2) Not Detected Not Detected (test code = 72844-3) Human Metapneumovirus Not Detected Not Detected (test code = 74889-4) Human Not Detected Not Detected Rhinovirus/Enterovirus (test code = 78429-1) Influenza A (test code Not Detected Not Detected = 71668-9) Influenza A H1 (test Not Detected Not Detected code = 06182-0) Influenza A H1 2009 Not Detected Not Detected (test code = 04167-7) Influenza A H3 (test Not Detected Not Detected code = 58260-1) Influenza B (test code Not Detected Not Detected = 06546-6) Parainfluenza 1 (test Not Detected Not Detected code = 87398-3) Parainfluenza 2 (test Not Detected Not Detected code = 21499-9) Parainfluenza 3 (test Not Detected Not Detected code = 27019-1) Parainfluenza 4 (test Not Detected Not Detected code = 34110-7) Respiratory Syncytial Not Detected Not Detected Virus (test code = 91501-1) Bordetella Not Detected Not Detected Parapertussis (test code = 80515-4) Bordetella pertussis Not Detected Not Detected (test code = 90039-8) Chlamydiophila Not Detected Not Detected pneumoniae (test code = 59844-7) Mycoplasma pneumoniae Not Detected Not Detected (test code = 04638-2) CHANDRAKANT (test code = CHANDRAKANT) Has patient had a positive for COVID-19 result in the last 3 months?->No The BioFire RP2.1 is a real-time, nested multiplexed polymerase chain reaction test designed to simultaneously identify nucleic acids from 22 different viruses and bacteria associated with respiratory tract infection, including SARS-CoV-2, from a single nasopharyngeal swab ([employer]) specimen obtained from individuals suspected of respiratory [...] may not be detected by an [employer] specimen. Internal controls are used to monitor [...] and high-complexity tests. The [facility] at [facility], CLIA Accreditation #[id number] and CAP Accreditation #[id number], verified the performance characteristics of this assay. [facility] at [facility] performs the assay using the [employer] System. [facility] Nasopharyngeal [id number] 06:28:01 Test Item Value Reference Range Interpretation Comments RMP Source (test code = Not Applicable 8653) Adenovirus (test code = Not Detected Not Detected 82714-4) Coronavirus 229E (test Not Detected Not Detected code = 96531-7) Coronavirus HKU1 (test Not Detected Not Detected code = 23822-3) Coronavirus NL63 (test Not Detected Not Detected code = 47255-7) Coronavirus OC43 (test Not Detected Not Detected code = 19318-9) COVID19 (SARS-CoV-2) Not Detected Not Detected (test code = 58488-6) Human Metapneumovirus Not Detected Not Detected (test code = 60488-4) Human Not Detected Not Detected Rhinovirus/Enterovirus (test code = 64876-3) Influenza A (test code Not Detected Not Detected = 87554-3) Influenza A H1 (test Not Detected Not Detected code = 46129-3) Influenza A H1 2009 Not Detected Not Detected (test code = 73633-1) Influenza A H3 (test Not Detected Not Detected code = 91901-9) Influenza B (test code Not Detected Not Detected = 08310-3) Parainfluenza 1 (test Not Detected Not Detected code = 16473-8) Parainfluenza 2 (test Not Detected Not Detected code = 04358-7) Parainfluenza 3 (test Not Detected Not Detected code = 85449-0) Parainfluenza 4 (test Not Detected Not Detected code = 45514-2) Respiratory Syncytial Not Detected Not Detected Virus (test code = 67338-3) Bordetella Not Detected Not Detected Parapertussis (test code = 52509-5) Bordetella pertussis Not Detected Not Detected (test code = 73558-4) Chlamydiophila Not Detected Not Detected pneumoniae (test code = 57506-8) Mycoplasma pneumoniae Not Detected Not Detected (test code = 93166-5) CHANDRAKANT (test code = CHANDRAKANT) Has patient had a positive for COVID-19 result in the last 3 months?->No The BioFire RP2.1 is a real-time, nested multiplexed polymerase chain reaction test designed to simultaneously identify nucleic acids from 22 different viruses and bacteria associated with respiratory tract infection, including SARS-CoV-2, from a single nasopharyngeal swab ([employer]) specimen obtained from individuals suspected of respiratory [...] may not be detected by an [employer] specimen. Internal controls are used to monitor [...] and high-complexity tests. The [facility] at [facility], CLIA Accreditation #[id number] and CAP Accreditation #[id number], verified the performance characteristics of this assay. [facility] at [facility] performs the assay using the [employer] System. [facility] Nasopharyngeal [id number] 06:28:01 Test Item Value Reference Range Interpretation Comments RMP Source (test code = Not Applicable 8653) Adenovirus (test code = Not Detected Not Detected 56224-1) Coronavirus 229E (test Not Detected Not Detected code = 85944-0) Coronavirus HKU1 (test Not Detected Not Detected code = 87064-0) Coronavirus NL63 (test Not Detected Not Detected code = 90396-4) Coronavirus OC43 (test Not Detected Not Detected code = 32052-6) COVID19 (SARS-CoV-2) Not Detected Not Detected (test code = 11232-1) Human Metapneumovirus Not Detected Not Detected (test code = 86441-2) Human Not Detected Not Detected Rhinovirus/Enterovirus (test code = 82025-1) Influenza A (test code Not Detected Not Detected = 27951-0) Influenza A H1 (test Not Detected Not Detected code = 80078-2) Influenza A H1 2009 Not Detected Not Detected (test code = 22650-1) Influenza A H3 (test Not Detected Not Detected code = 49879-0) Influenza B (test code Not Detected Not Detected = 12131-3) Parainfluenza 1 (test Not Detected Not Detected code = 81500-9) Parainfluenza 2 (test Not Detected Not Detected code = 57143-3) Parainfluenza 3 (test Not Detected Not Detected code = 09967-3) Parainfluenza 4 (test Not Detected Not Detected code = 78639-3) Respiratory Syncytial Not Detected Not Detected Virus (test code = 95257-0) Bordetella Not Detected Not Detected Parapertussis (test code = 11381-8) Bordetella pertussis Not Detected Not Detected (test code = 75269-7) Chlamydiophila Not Detected Not Detected pneumoniae (test code = 94547-2) Mycoplasma pneumoniae Not Detected Not Detected (test code = 31801-4) CHANDRAKANT (test code = CHANDRAKANT) Has patient had a positive for COVID-19 result in the last 3 months?->No The BioFire RP2.1 is a real-time, nested multiplexed polymerase chain reaction test designed to simultaneously identify nucleic acids from 22 different viruses and bacteria associated with respiratory tract infection, including SARS-CoV-2, from a single nasopharyngeal swab ([employer]) specimen obtained from individuals suspected of respiratory [...] may not be detected by an [employer] specimen. Internal controls are used to monitor [...] and high-complexity tests. The [facility] at [facility], CLIA Accreditation #[id number] and CAP Accreditation #[id number], verified the performance characteristics of this assay. [facility] at [facility] performs the assay using the [employer] System. [facility] Nasopharyngeal [id number] 06:28:01 Test Item Value Reference Range Interpretation Comments RMP Source (test code = Not Applicable 8653) Adenovirus (test code = Not Detected Not Detected 92920-1) Coronavirus 229E (test Not Detected Not Detected code = 35306-1) Coronavirus HKU1 (test Not Detected Not Detected code = 05245-9) Coronavirus NL63 (test Not Detected Not Detected code = 54093-2) Coronavirus OC43 (test Not Detected Not Detected code = 34856-4) COVID19 (SARS-CoV-2) Not Detected Not Detected (test code = 41754-3) Human Metapneumovirus Not Detected Not Detected (test code = 98357-7) Human Not Detected Not Detected Rhinovirus/Enterovirus (test code = 05926-6) Influenza A (test code Not Detected Not Detected = 17668-8) Influenza A H1 (test Not Detected Not Detected code = 85244-6) Influenza A H1 2009 Not Detected Not Detected (test code = 76053-8) Influenza A H3 (test Not Detected Not Detected code = 35039-4) Influenza B (test code Not Detected Not Detected = 05835-2) Parainfluenza 1 (test Not Detected Not Detected code = 13606-4) Parainfluenza 2 (test Not Detected Not Detected code = 13972-6) Parainfluenza 3 (test Not Detected Not Detected code = 43080-0) Parainfluenza 4 (test Not Detected Not Detected code = 51266-6) Respiratory Syncytial Not Detected Not Detected Virus (test code = 24686-7) Bordetella Not Detected Not Detected Parapertussis (test code = 00243-5) Bordetella pertussis Not Detected Not Detected (test code = 76220-9) Chlamydiophila Not Detected Not Detected pneumoniae (test code = 69004-1) Mycoplasma pneumoniae Not Detected Not Detected (test code = 14858-5) CHANDRAKANT (test code = CHANDRAKANT) Has patient had a positive for COVID-19 result in the last 3 months?->No The [employer] RP2.1 is a real-time, nested multiplexed polymerase chain reaction test designed to simultaneously identify nucleic acids from 22 different viruses and bacteria associated with respiratory tract infection, including SARS-CoV-2, from a single nasopharyngeal swab ([employer]) specimen obtained from individuals suspected of respiratory [...] may not be detected by an [employer] specimen. Internal controls are used to monitor [...] and high-complexity tests. The [facility] at [facility], CLIA Accreditation #[id number] and CAP Accreditation #[id number], verified the performance characteristics of this assay. [facility] at [facility] performs the assay using the [employer] System. [facility] Nasopharyngeal [id number] 06:28:01 Test Item Value Reference Range Interpretation Comments RMP Source (test code = Not Applicable 8653) Adenovirus (test code = Not Detected Not Detected 60149-2) Coronavirus 229E (test Not Detected Not Detected code = 91634-5) Coronavirus HKU1 (test Not Detected Not Detected code = 72692-8) Coronavirus NL63 (test Not Detected Not Detected code = 24492-6) Coronavirus OC43 (test Not Detected Not Detected code = 49309-5) COVID19 (SARS-CoV-2) Not Detected Not Detected (test code = 58172-3) Human Metapneumovirus Not Detected Not Detected (test code = 17728-9) Human Not Detected Not Detected Rhinovirus/Enterovirus (test code = 12431-6) Influenza A (test code Not Detected Not Detected = 55560-8) Influenza A H1 (test Not Detected Not Detected code = 70666-4) Influenza A H1 2009 Not Detected Not Detected (test code = 80437-5) Influenza A H3 (test Not Detected Not Detected code = 78096-2) Influenza B (test code Not Detected Not Detected = 21066-3) Parainfluenza 1 (test Not Detected Not Detected code = 74512-7) Parainfluenza 2 (test Not Detected Not Detected code = 84525-2) Parainfluenza 3 (test Not Detected Not Detected code = 69737-4) Parainfluenza 4 (test Not Detected Not Detected code = 52981-1) Respiratory Syncytial Not Detected Not Detected Virus (test code = 68907-2) Bordetella Not Detected Not Detected Parapertussis (test code = 46147-4) Bordetella pertussis Not Detected Not Detected (test code = 42084-6) Chlamydiophila Not Detected Not Detected pneumoniae (test code = 22841-9) Mycoplasma pneumoniae Not Detected Not Detected (test code = 02476-8) CHANDRAKANT (test code = CHANDRAKANT) Has patient had a positive for COVID-19 result in the last 3 months?->No The BioFire RP2.1 is a real-time, nested multiplexed polymerase chain reaction test designed to simultaneously identify nucleic acids from 22 different viruses and bacteria associated with respiratory tract infection, including SARS-CoV-2, from a single nasopharyngeal swab ([employer]) specimen obtained from individuals suspected of respiratory [...] may not be detected by an [employer] specimen. Internal controls are used to monitor [...] and high-complexity tests. The [facility] at [facility], CLIA Accreditation #[id number] and CAP Accreditation #[id number], verified the performance characteristics of this assay. [facility] performs the assay using the [employer] System. [facility] Nasopharyngeal [id number] 06:28:01 Test Item Value Reference Range Interpretation Comments RMP Source (test code = Not Applicable 8653) Adenovirus (test code = Not Detected Not Detected 08064-5) Coronavirus 229E (test Not Detected Not Detected code = 32590-9) Coronavirus HKU1 (test Not Detected Not Detected code = 72523-4) Coronavirus NL63 (test Not Detected Not Detected code = 51733-6) Coronavirus OC43 (test Not Detected Not Detected code = 76775-2) COVID19 (SARS-CoV-2) Not Detected Not Detected (test code = 12656-8) Human Metapneumovirus Not Detected Not Detected (test code = 50516-3) Human Not Detected Not Detected Rhinovirus/Enterovirus (test code = 09439-0) Influenza A (test code Not Detected Not Detected = 91068-5) Influenza A H1 (test Not Detected Not Detected code = 15463-9) Influenza A H1 2008 Not Detected Not Detected (test code = 88466-9) Influenza A H3 (test Not Detected Not Detected code = 49390-5) Influenza B (test code Not Detected Not Detected = 47809-7) Parainfluenza 1 (test Not Detected Not Detected code = 35884-8) Parainfluenza 2 (test Not Detected Not Detected code = 70562-0) Parainfluenza 3 (test Not Detected Not Detected code = 37064-4) Parainfluenza 4 (test Not Detected Not Detected code = 46672-8) Respiratory Syncytial Not Detected Not Detected Virus (test code = 68226-8) Bordetella Not Detected Not Detected Parapertussis (test code = 86267-6) Bordetella pertussis Not Detected Not Detected (test code = 21693-8) Chlamydiophila Not Detected Not Detected pneumoniae (test code = 70953-5) Mycoplasma pneumoniae Not Detected Not Detected (test code = 29268-8) CHANDRAKANT (test code = CHANDRAKANT) Has patient had a positive for COVID-19 result in the last 3 months?->No The [employer] RP2.1 is a real-time, nested multiplexed polymerase chain reaction test designed to simultaneously identify nucleic acids from 22 different viruses and bacteria associated with respiratory tract infection, including SARS-CoV-2, from a single nasopharyngeal swab ([employer]) specimen obtained from individuals suspected of respiratory [...] may not be detected by an [employer] specimen. Internal controls are used to monitor [...] and high-complexity tests. The [facility] at [facility], CLIA Accreditation #[id number] and CAP Accreditation #[id number], verified the performance characteristics of this assay. [facility] at [facility] performs the assay using the [employer] System. [facility] Nasopharyngeal [id number] 06:28:01 Test Item Value Reference Range Interpretation Comments RMP Source (test code = Not Applicable 8653) Adenovirus (test code = Not Detected Not Detected 58137-8) Coronavirus 229E (test Not Detected Not Detected code = 33738-3) Coronavirus HKU1 (test Not Detected Not Detected code = 03171-4) Coronavirus NL63 (test Not Detected Not Detected code = 73757-6) Coronavirus OC43 (test Not Detected Not Detected code = 88179-2) COVID19 (SARS-CoV-2) Not Detected Not Detected (test code = 27380-2) Human Metapneumovirus Not Detected Not Detected (test code = 94118-7) Human Not Detected Not Detected Rhinovirus/Enterovirus (test code = 26901-3) Influenza A (test code Not Detected Not Detected = 50656-5) Influenza A H1 (test Not Detected Not Detected code = 63792-1) Influenza A H1 2009 Not Detected Not Detected (test code = 36219-6) Influenza A H3 (test Not Detected Not Detected code = 24016-0) Influenza B (test code Not Detected Not Detected = 71616-8) Parainfluenza 1 (test Not Detected Not Detected code = 99117-5) Parainfluenza 2 (test Not Detected Not Detected code = 74767-8) Parainfluenza 3 (test Not Detected Not Detected code = 10933-1) Parainfluenza 4 (test Not Detected Not Detected code = 39532-4) Respiratory Syncytial Not Detected Not Detected Virus (test code = 66840-2) Bordetella Not Detected Not Detected Parapertussis (test code = 51185-1) Bordetella pertussis Not Detected Not Detected (test code = 85644-5) Chlamydiophila Not Detected Not Detected pneumoniae (test code = 50455-8) Mycoplasma pneumoniae Not Detected Not Detected (test code = 41656-4) CHANDRAKANT (test code = CHANDRAKANT) Has patient had a positive for COVID-19 result in the last 3 months?->No The [employer] RP2.1 is a real-time, nested multiplexed polymerase chain reaction test designed to simultaneously identify nucleic acids from 22 different viruses and bacteria associated with respiratory tract infection, including SARS-CoV-2, from a single nasopharyngeal swab ([employer]) specimen obtained from individuals suspected of respiratory [...] may not be detected by an [employer] specimen. Internal controls are used to monitor [...] and high-complexity tests. The [facility] at [facility], CLIA Accreditation #[id number] and CAP Accreditation #[id number], verified the performance characteristics of this assay. [facility] performs the assay using the [employer] System. [facility] Nasopharyngeal [id number] 06:28:01 Test Item Value Reference Range Interpretation Comments RMP Source (test code = Not Applicable 8653) Adenovirus (test code = Not Detected Not Detected 33078-5) Coronavirus 229E (test Not Detected Not Detected code = 80840-4) Coronavirus HKU1 (test Not Detected Not Detected code = 25126-7) Coronavirus NL63 (test Not Detected Not Detected code = 89284-8) Coronavirus OC43 (test Not Detected Not Detected code = 01502-4) COVID19 (SARS-CoV-2) Not Detected Not Detected (test code = 64493-4) Human Metapneumovirus Not Detected Not Detected (test code = 08595-4) Human Not Detected Not Detected Rhinovirus/Enterovirus (test code = 49733-6) Influenza A (test code Not Detected Not Detected = 29661-2) Influenza A H1 (test Not Detected Not Detected code = 21499-9) Influenza A H1 2009 Not Detected Not Detected (test code = 24362-7) Influenza A H3 (test Not Detected Not Detected code = 39957-4) Influenza B (test code Not Detected Not Detected = 19503-0) Parainfluenza 1 (test Not Detected Not Detected code = 16745-1) Parainfluenza 2 (test Not Detected Not Detected code = 51963-7) Parainfluenza 3 (test Not Detected Not Detected code = 24321-6) Parainfluenza 4 (test Not Detected Not Detected code = 94750-0) Respiratory Syncytial Not Detected Not Detected Virus (test code = 94389-5) Bordetella Not Detected Not Detected Parapertussis (test code = 68749-0) Bordetella pertussis Not Detected Not Detected (test code = 63215-1) Chlamydiophila Not Detected Not Detected pneumoniae (test code = 42646-0) Mycoplasma pneumoniae Not Detected Not Detected (test code = 87190-2) CHANDRAKANT (test code = CHANDRAKANT) Has patient had a positive for COVID-19 result in the last 3 months?->No The GustFire RP2.1 is a real-time, nested multiplexed polymerase chain reaction test designed to simultaneously identify nucleic acids from 22 different viruses and bacteria associated with respiratory tract infection, including SARS-CoV-2, from a single nasopharyngeal swab ([employer]) specimen obtained from individuals suspected of respiratory [...] may not be detected by an [employer] specimen. Internal controls are used to monitor [...] and high-complexity tests. The Microbiology Laboratory at [facility], CLIA Accreditation #[id number] and CAP Accreditation #[id number], verified the performance characteristics of this assay. Microbiology Laboratory at [facility] performs the assay using the [employer] System. [facility], Nasopharyngeal [id number] 06:28:01 Test Item Value Reference Range Interpretation Comments RMP Source (test code = Not Applicable 8653) Adenovirus (test code = Not Detected Not Detected 07602-6) Coronavirus 229E (test Not Detected Not Detected code = 94501-0) Coronavirus HKU1 (test Not Detected Not Detected code = 48311-1) Coronavirus NL63 (test Not Detected Not Detected code = 70978-5) Coronavirus OC43 (test Not Detected Not Detected code = 53083-3) COVID19 (SARS-CoV-2) Not Detected Not Detected (test code = 80358-4) Human Metapneumovirus Not Detected Not Detected (test code = 95741-9) Human Not Detected Not Detected Rhinovirus/Enterovirus (test code = 60914-6) Influenza A (test code Not Detected Not Detected = 79510-7) Influenza A H1 (test Not Detected Not Detected code = 29193-5) Influenza A H1 2009 Not Detected Not Detected (test code = 04137-4) Influenza A H3 (test Not Detected Not Detected code = 15847-7) Influenza B (test code Not Detected Not Detected = 75043-7) Parainfluenza 1 (test Not Detected Not Detected code = 09055-0) Parainfluenza 2 (test Not Detected Not Detected code = 44790-1) Parainfluenza 3 (test Not Detected Not Detected code = 26421-7) Parainfluenza 4 (test Not Detected Not Detected code = 59324-3) Respiratory Syncytial Not Detected Not Detected Virus (test code = 69516-8) Bordetella Not Detected Not Detected Parapertussis (test code = 83367-0) Bordetella pertussis Not Detected Not Detected (test code = 56149-5) Chlamydiophila Not Detected Not Detected pneumoniae (test code = 43807-2) Mycoplasma pneumoniae Not Detected Not Detected (test code = 12892-4) CHANDRAKANT (test code = CHANDRAKANT) Has patient had a positive for COVID-19 result in the last 3 months?->No The BioFire RP2.1 is a real-time, nested multiplexed polymerase chain reaction test designed to simultaneously identify nucleic acids from 22 different viruses and bacteria associated with respiratory tract infection, including SARS-CoV-2, from a single nasopharyngeal swab ([employer]) specimen obtained from individuals suspected of respiratory [...] may not be detected by an [employer] specimen. Internal controls are used to monitor [...] and high-complexity tests. The Microbiology Laboratory at [facility] [place], CLIA Accreditation #[id number] and CAP Accreditation #[id number], verified the performance characteristics of this assay. Microbiology Laboratory at [facility] performs the assay using the [employer] System. [facility], Nasopharyngeal [id number] 06:28:01 Test Item Value Reference Range Interpretation Comments RMP Source (test code = Not Applicable 8653) Adenovirus (test code = Not Detected Not Detected 05313-6) Coronavirus 229E (test Not Detected Not Detected code = 96325-2) Coronavirus HKU1 (test Not Detected Not Detected code = 64382-5) Coronavirus NL63 (test Not Detected Not Detected code = 46734-5) Coronavirus OC43 (test Not Detected Not Detected code = 03707-9) COVID19 (SARS-CoV-2) Not Detected Not Detected (test code = 82293-0) Human Metapneumovirus Not Detected Not Detected (test code = 16793-5) Human Not Detected Not Detected Rhinovirus/Enterovirus (test code = 60370-0) Influenza A (test code Not Detected Not Detected = 30567-1) Influenza A H1 (test Not Detected Not Detected code = 04839-8) Influenza A H1 2009 Not Detected Not Detected (test code = 99490-5) Influenza A H3 (test Not Detected Not Detected code = 39479-2) Influenza B (test code Not Detected Not Detected = 77909-3) Parainfluenza 1 (test Not Detected Not Detected code = 00645-4) Parainfluenza 2 (test Not Detected Not Detected code = 19654-4) Parainfluenza 3 (test Not Detected Not Detected code = 48311-5) Parainfluenza 4 (test Not Detected Not Detected code = 15920-3) Respiratory Syncytial Not Detected Not Detected Virus (test code = 84144-6) Bordetella Not Detected Not Detected Parapertussis (test code = 49332-3) Bordetella pertussis Not Detected Not Detected (test code = 54092-5) Chlamydiophila Not Detected Not Detected pneumoniae (test code = 07226-8) Mycoplasma pneumoniae Not Detected Not Detected (test code = 02934-1) CHANDRAKANT (test code = CHANDRAKANT) Has patient had a positive for COVID-19 result in the last 3 months?->No The [employer]Fire RP2.1 is a real-time, nested multiplexed polymerase chain reaction test designed to simultaneously identify nucleic acids from 22 different viruses and bacteria associated with respiratory tract infection, including SARS-CoV-2, from a single nasopharyngeal swab ([employer]) specimen obtained from individuals suspected of respiratory [...] may not be detected by an [employer] specimen. Internal controls are used to monitor [...] and high-complexity tests. The Microbiology Laboratory at [facility], CLIA Accreditation #[id number] and CAP Accreditation #[id number], verified the performance characteristics of this assay. Microbiology Laboratory at [facility] performs the assay using the [employer] System. [facility], Nasopharyngeal [id number] 06:28:01 Test Item Value Reference Range Interpretation Comments RMP Source (test code = Not Applicable 8653) Adenovirus (test code = Not Detected Not Detected 54623-3) Coronavirus 229E (test Not Detected Not Detected code = 07363-7) Coronavirus HKU1 (test Not Detected Not Detected code = 63009-3) Coronavirus NL63 (test Not Detected Not Detected code = 47408-5) Coronavirus OC43 (test Not Detected Not Detected code = 32305-2) COVID19 (SARS-CoV-2) Not Detected Not Detected (test code = 72318-2) Human Metapneumovirus Not Detected Not Detected (test code = 94478-7) Human Not Detected Not Detected Rhinovirus/Enterovirus (test code = 41147-4) Influenza A (test code Not Detected Not Detected = 46949-9) Influenza A H1 (test Not Detected Not Detected code = 73087-2) Influenza A H1 2009 Not Detected Not Detected (test code = 89870-5) Influenza A H3 (test Not Detected Not Detected code = 08760-2) Influenza B (test code Not Detected Not Detected = 82571-7) Parainfluenza 1 (test Not Detected Not Detected code = 26230-0) Parainfluenza 2 (test Not Detected Not Detected code = 55822-5) Parainfluenza 3 (test Not Detected Not Detected code = 04107-3) Parainfluenza 4 (test Not Detected Not Detected code = 34083-5) Respiratory Syncytial Not Detected Not Detected Virus (test code = 22489-5) Bordetella Not Detected Not Detected Parapertussis (test code = 91677-5) Bordetella pertussis Not Detected Not Detected (test code = 27073-3) Chlamydiophila Not Detected Not Detected pneumoniae (test code = 91973-3) Mycoplasma pneumoniae Not Detected Not Detected (test code = 57409-9) CHANDRAKANT (test code = CHANDRAKANT) Has patient had a positive for COVID-19 result in the last 3 months?->No The BioFire RP2.1 is a real-time, nested multiplexed polymerase chain reaction test designed to simultaneously identify nucleic acids from 22 different viruses and bacteria associated with respiratory tract infection, including SARS-CoV-2, from a single nasopharyngeal swab ([employer]) specimen obtained from individuals suspected of respiratory [...] may not be detected by an [employer] specimen. Internal controls are used to monitor [...] and high-complexity tests. The Microbiology Laboratory at [facility], CLIA Accreditation #[id number] and CAP Accreditation #[id number], verified the performance characteristics of this assay. Microbiology Laboratory at [facility] performs the assay using the [employer] System. [facility], Nasopharyngeal [id number] 06:28:01 Test Item Value Reference Range Interpretation Comments RMP Source (test code = Not Applicable 8653) Adenovirus (test code = Not Detected Not Detected 10573-0) Coronavirus 229E (test Not Detected Not Detected code = 56565-8) Coronavirus HKU1 (test Not Detected Not Detected code = 93535-1) Coronavirus NL63 (test Not Detected Not Detected code = 96754-6) Coronavirus OC43 (test Not Detected Not Detected code = 57861-7) COVID19 (SARS-CoV-2) Not Detected Not Detected (test code = 67417-6) Human Metapneumovirus Not Detected Not Detected (test code = 88147-3) Human Not Detected Not Detected Rhinovirus/Enterovirus (test code = 99026-0) Influenza A (test code Not Detected Not Detected = 48255-8) Influenza A H1 (test Not Detected Not Detected code = 57995-9) Influenza A H1 2009 Not Detected Not Detected (test code = 27313-1) Influenza A H3 (test Not Detected Not Detected code = 21302-3) Influenza B (test code Not Detected Not Detected = 73486-4) Parainfluenza 1 (test Not Detected Not Detected code = 82918-8) Parainfluenza 2 (test Not Detected Not Detected code = 19010-2) Parainfluenza 3 (test Not Detected Not Detected code = 95174-2) Parainfluenza 4 (test Not Detected Not Detected code = 76008-2) Respiratory Syncytial Not Detected Not Detected Virus (test code = 11808-2) Bordetella Not Detected Not Detected Parapertussis (test code = 21163-6) Bordetella pertussis Not Detected Not Detected (test code = 86432-6) Chlamydiophila Not Detected Not Detected pneumoniae (test code = 05016-7) Mycoplasma pneumoniae Not Detected Not Detected (test code = 94814-5) CHANDRAKANT (test code = CHANDRAKANT) Has patient had a positive for COVID-19 result in the last 3 months?->No The GustFire RP2.1 is a real-time, nested multiplexed polymerase chain reaction test designed to simultaneously identify nucleic acids from 22 different viruses and bacteria associated with respiratory tract infection, including SARS-CoV-2, from a single nasopharyngeal swab ([employer]) specimen obtained from individuals suspected of respiratory [...] may not be detected by an [employer] specimen. Internal controls are used to monitor [...] and high-complexity tests. The Microbiology Laboratory at [facility], CLIA Accreditation #[id number] and CAP Accreditation #[id number], verified the performance characteristics of this assay. Microbiology Laboratory at [facility] performs the assay using the [employer] System. [facility] 05:46:40 Test Item Value Reference Range Interpretation Comments LDH (test code = 288 U/L 135-214 H Results gre ater than 75543-0) 1651 U/L may no t be reliable due to matrix effect w ith extended diluti on as it exceeds the drive tester's recommended sweeney it. Caution should be exercised when interpreting limon ch values and done in conjunction wit h clinical contex t. Lab Interpretation (test Abnormal code = 33884-9) [facility] 05:46:40 Test Item Value Reference Range Interpretation Comments LDH (test code = 288 U/L 135-214 H Results gre ater than 60622-2) 1651 U/L may no t be reliable due to matrix effect w ith extended diluti on as it exceeds the drive tester's recommended sweeney it. Caution should be exercised when interpreting limon ch values and done in conjunction [facility] clinical contex t. Lab Interpretation (test Abnormal code = 97985-3) [facility] 05:46:40 Test Item Value Reference Range Interpretation Comments LDH (test code = 288 U/L 135-214 H Results gre ater than 35191-4) 1651 U/L may no t be reliable due to matrix effect w ith extended diluti on as it exceeds the drive tester's recommended sweeney it. Caution should be exercised when interpreting limon ch values and done in conjunction [facility] clinical contex t. Lab Interpretation (test Abnormal code = 59018-0) [facility] 05:46:40 Test Item Value Reference Range Interpretation Comments LDH (test code = 288 U/L 135-214 H Results gre ater than 32800-2) 1651 U/L may no t be reliable due to matrix effect w ith extended diluti on as it exceeds the drive tester's recommended sweeney it. Caution should be exercised when interpreting limon ch values and done in conjunction [facility] clinical contex t. Lab Interpretation (test Abnormal code = 50542-3) [facility] 05:46:40 Test Item Value Reference Range Interpretation Comments LDH (test code = 288 U/L 135-214 H Results gre ater than 25583-8) 1651 U/L may no t be reliable due to matrix effect w ith extended diluti on as it exceeds the drive tester's recommended sweeney it. Caution should be exercised when interpreting limon ch values and done in conjunction [facility] clinical contex t. Lab Interpretation (test Abnormal code = 32595-5) [facility] 05:46:40 Test Item Value Reference Range Interpretation Comments LDH (test code = 288 U/L 135-214 H Results gre ater than 61791-2) 1651 U/L may no t be reliable due to matrix effect w ith extended diluti on as it exceeds the drive tester's recommended sweeney it. Caution should be exercised when interpreting limon ch values and done in conjunction [facility] clinical contex t. Lab Interpretation (test Abnormal code = 01844-9) [facility] 05:46:40 Test Item Value Reference Range Interpretation Comments LDH (test code = 288 U/L 135-214 H Results gre ater than 99142-2) 1651 U/L may no t be reliable due to matrix effect w ith extended diluti on as it exceeds the drive tester's recommended sweeney it. Caution should be exercised when interpreting limon ch values and done in conjunction [facility] clinical contex t. Lab Interpretation (test Abnormal code = 67159-2) [facility] 05:46:40 Test Item Value Reference Range Interpretation Comments LDH (test code = 288 U/L 135-214 H Results gre ater than 55548-0) 1651 U/L may no t be reliable due to matrix effect w ith extended diluti on as it exceeds the drive tester's recommended sweeney it. Caution should be exercised when interpreting limon ch values and done in conjunction [facility] clinical Mpayyx t. Lab Interpretation (test Abnormal code = 26980-6) [facility] 05:46:40 Test Item Value Reference Range Interpretation Comments LDH (test code = 288 U/L 135-214 H Results gre ater than 06101-5) 1651 U/L may no t be reliable due to matrix effect w ith extended diluti on as it exceeds the drive tester's recommended sweeney it. Caution should be exercised when interpreting limon ch values and done in conjunction [facility] clinical Mpayyx t. Lab Interpretation (test Abnormal code = 51623-7) [facility] 05:46:40 Test Item Value Reference Range Interpretation Comments LDH (test code = 288 U/L 135-214 H Results gre ater than 60880-9) 1651 U/L may no t be reliable due to matrix effect w ith extended diluti on as it exceeds the drive tester's recommended sweeney it. Caution should be exercised when interpreting limon ch values and done in conjunction [facility] clinical contex t. Lab Interpretation (test Abnormal code = 67371-2) [facility] 05:46:40 Test Item Value Reference Range Interpretation Comments LDH (test code = 288 U/L 135-214 H Results gre ater than 19309-1) 1651 U/L may no t be reliable due to matrix effect w ith extended diluti on as it exceeds the drive tester's recommended sweeney it. Caution should be exercised when interpreting limon ch values and done in conjunction [facility] clinical contex t. Lab Interpretation (test Abnormal code = 20423-9) [facility] 05:46:40 Test Item Value Reference Range Interpretation Comments LDH (test code = 288 U/L 135-214 H Results gre ater than 71053-0) 1651 U/L may no t be reliable due to matrix effect w ith extended diluti on as it exceeds the drive tester's recommended sweeney it. Caution should be exercised when interpreting limon ch values and done in conjunction [facility] clinical contex t. Lab Interpretation (test Abnormal code = 98483-6) [facility] 05:46:40 Test Item Value Reference Range Interpretation Comments LDH (test code = 288 U/L 135-214 H Results gre ater than 79523-3) 1651 U/L may no t be reliable due to matrix effect w ith extended diluti on as it exceeds the drive tester's recommended sweeney it. Caution should be exercised when interpreting limon ch values and done in conjunction [facility] clinical Mpayyx t. Lab Interpretation (test Abnormal code = 84326-4) [facility] 05:46:40 Test Item Value Reference Range Interpretation Comments LDH (test code = 288 U/L 135-214 H Results gre ater than 82216-9) 1651 U/L may no t be reliable due to matrix effect w ith extended diluti on as it exceeds the drive tester's recommended sweeney it. Caution should be exercised when interpreting limon ch values and done in conjunction [facility] clinical contex t. Lab Interpretation (test Abnormal code = 99355-3) [facility] 05:46:40 Test Item Value Reference Range Interpretation Comments LDH (test code = 288 U/L 135-214 H Results gre ater than 29719-8) 1651 U/L may no t be reliable due to matrix effect w ith extended diluti on as it exceeds the drive tester's recommended sweeney it. Caution should be exercised when interpreting limon ch values and done in conjunction [facility] clinical contex t. Lab Interpretation (test Abnormal code = 85527-0) [facility] 05:46:40 Test Item Value Reference Range Interpretation Comments LDH (test code = 288 U/L 135-214 H Results gre ater than 88622-2) 1651 U/L may no t be reliable due to matrix effect w ith extended diluti on as it exceeds the drive tester's recommended sweeney it. Caution should be exercised when interpreting limon ch values and done in conjunction [facility] clinical contex t. Lab Interpretation (test Abnormal code = 40615-1) [facility] [id number] 05:21:40 Test Item Value Reference Range Interpretation Comments POC VB pH (test code 7.39 7.31-7.41 = 2746-6) POC VB pCO2 (test 32 See_Comment L [Automate d message] code = 2020-) The system [employer] generated this result transmitted ref erence range: 41 - 51 mmHg. The reference r ashley was not used to interpret this result as normal/abnor mal. POC VB pO2 (test 71 mmHg code = 2705-2) POC VB TCO2 (test 20 See_Comment L [Automate d message] code = 2026-) The system [employer] generated this result transmitted ref erence range: 24 - 29 mEq/L. The reference r ashley was not used to interpret this result as normal/abnor mal. POC VB Bicarb (test 19 mmol/L 23-28 L code = 26133-2) POC VB Base Ex (test -5 mmol/L [...] ridge which contains microfabricated sensors, a calibration idxie ution, fluidics system , and a waste chamber . Each test cartridge contains chemic ally sensitive biose nsors on a Merit[employer] ip that are config ured to perform spec ific tests. The microfabricated sensors measure analyte concent ration by an electroch emical assay. POC Sample Type Venous (test code = 6690) POC Clean Dev (test Yes code = 6672) Performing Lab (test MDA Main Main Ca mpus code = 62863) [facility], [address], [facility], [place] [address]; Hi Lift Operator: Guerline Olmstead MD; Waived Point of Care Testing - Luz Maria levi MD Lab Interpretation Abnormal (test code = 44560-0) [facility] [place] [id number] 05:21:40 Test Item Value Reference Range Interpretation Comments POC VB pH (test code 7.39 7.31-7.41 = 2746-6) POC VB pCO2 (test 32 See_Comment L [Automate d message] code = 2020-) The system [employer] generated this result transmitted ref erence range: 41 - 51 mmHg. The reference r ashley was not used to interpret this result as normal/abnor mal. POC VB pO2 (test 71 mmHg code = 2705-2) POC VB TCO2 (test 20 See_Comment L [Automate d message] code = 2026-) The system [employer] generated this result transmitted ref erence range: 24 - 29 mEq/L. The reference r ashley was not used to interpret this result as normal/abnor mal. POC VB Bicarb (test 19 mmol/L 23-28 L code = 93060-3) POC VB Base Ex (test -5 mmol/L [...] chemic ally sensitive biose nsors on a [employer] ip that are config ured to perform spec ific tests. The microfabricated sensors measure analyte concent ration by an electroch emical assay. POC Sample Type Venous (test code = 6690) POC Clean Dev (test Yes code = 6672) Performing Lab (test MDA Main Main Ca mpus code = 50076) [facility] Cli nical Lab, [address], [facility], [place] [address]; Hi Lift Operator: Guerline Olmstead MD; Waived Point of Care Testing - Luz Maria levi MD Lab Interpretation Abnormal (test code = 50132-2) [facility] [place] [id number] 05:21:40 Test Item Value Reference Range Interpretation Comments POC VB pH (test code 7.39 7.31-7.41 = 2746-6) POC VB pCO2 (test 32 See_Comment L [Automate d message] code = 2020-) The system [employer] generated this result transmitted ref erence range: 41 - 51 mmHg. The reference r ashley was not used to interpret this result as normal/abnor mal. POC VB pO2 (test 71 mmHg code = 2705-2) POC VB TCO2 (test 20 See_Comment L [Automate d message] code = 2026-) The system [employer] generated this result transmitted ref erence range: 24 - 29 mEq/L. The reference r ashley was not used to interpret this result as normal/abnor mal. POC VB Bicarb (test 19 mmol/L 23-28 L code = 70567-5) POC VB Base Ex (test -5 mmol/L [...] ally sensitive biose nsors on a silicon [employer] ip that are config ured to perform spec ific tests. The microfabricated sensors measure analyte concent ration by an electroch emical assay. POC Sample Type Venous (test code = 6690) POC Clean Dev (test Yes code = 6672) Performing Lab (test MDA Main Main Ca mpus code = 52843) [facility], [address], [facility], [place] [address]; Hi Lift Operator: Guerline Olmstead MD; Waived Point of Care Testing - Luz Maria levi MD Lab Interpretation Abnormal (test code = 41887-4) [facility] [id number] 05:21:40 Test Item Value Reference Range Interpretation Comments POC VB pH (test code 7.39 7.31-7.41 = 2746-6) POC VB pCO2 (test 32 See_Comment L [Automate d message] code = 2020-) The system [employer] generated this result transmitted ref erence range: 41 - 51 mmHg. The reference r ashley was not used to interpret this result as normal/abnor mal. POC VB pO2 (test 71 mmHg code = 2705-2) POC VB TCO2 (test 20 See_Comment L [Automate d message] code = 2026-) The system [employer] generated this result transmitted ref erence range: 24 - 29 mEq/L. The reference r ashley was not used to interpret this result as normal/abnor mal. POC VB Bicarb (test 19 mmol/L 23-28 L code = 29825-8) POC VB Base Ex (test -5 mmol/L [...] ally sensitive biose nsors on a silicon [employer] ip that are config ured to perform spec ific tests. The microfabricated sensors measure analyte concent ration by an electroch emical assay. POC Sample Type Venous (test code = 6690) POC Clean Dev (test Yes code = 6672) Performing Lab (test MDA Main Main Ca mpus code = 38611) [facility], [address], [facility], [place] [address]; Hi Lift Operator: Guerline Olmstead MD; Waived Point of Care Testing - Luz Maria levi MD Lab Interpretation Abnormal (test code = 47494-3) [facility] [id number] 05:21:40 Test Item Value Reference Range Interpretation Comments POC VB pH (test code 7.39 7.31-7.41 = 2746-6) POC VB pCO2 (test 32 See_Comment L [Automate d message] code = 2020-05) The system [employer] generated this result transmitted ref erence range: 41 - 51 mmHg. The reference r ashley was not used to interpret this result as normal/abnor mal. POC VB pO2 (test 71 mmHg code = 2705-2) POC VB TCO2 (test 20 See_Comment L [Automate d message] code = 2026-02) The system [employer] generated this result transmitted ref erence range: 24 - 29 mEq/L. The reference r ashley was not used to interpret this result as normal/abnor mal. POC VB Bicarb (test 19 mmol/L 23-28 L code = 21870-1) POC VB Base Ex (test -5 mmol/L [...] which contains microfabricated sensors, a calibration dixie [employer], fluidics system , and a waste chamber . Each test cartridge contains chemic ally sensitive biose nsors on a [employer] ip that are config ured to perform spec ific tests. The microfabricated sensors measure analyte concent ration by an electroch emical assay. POC Sample Type Venous (test code = 6690) POC Clean Dev (test Yes code = 6672) Performing Lab (test MDA Main Main Ca mpus code = 36499) [facility] Lab, [address], [place] [address]; Hi Lift Operator: Guerline Olmstead MD; Waived Point of Care Testing - Luz Maria levi MD Lab Interpretation Abnormal (test code = 32031-4) [facility] [id number] 05:21:40 Test Item Value Reference Range Interpretation Comments POC VB pH (test code 7.39 7.31-7.41 = 2746-6) POC VB pCO2 (test 32 See_Comment L [Automate d message] code = 2020-05) The system [employer] generated this result transmitted ref erence range: 41 - 51 mmHg. The reference r ashley was not used to interpret this result as normal/abnor mal. POC VB pO2 (test 71 mmHg code = 2705-2) POC VB TCO2 (test 20 See_Comment L [Automate d message] code = 2026-02) The system [employer] generated this result transmitted ref erence range: 24 - 29 mEq/L. The reference r ashley was not used to interpret this result as normal/abnor mal. POC VB Bicarb (test 19 mmol/L 23-28 L code = 21138-9) POC VB Base Ex (test -5 mmol/L [...] which contains microfabricated sensors, a calibration dixie [employer], fluidics system , and a waste chamber . Each test cartridge contains chemic ally sensitive biose nsors on a [employer] ip that are config ured to perform spec ific tests. The microfabricated sensors measure analyte concent ration by an electroch emical assay. POC Sample Type Venous (test code = 6690) POC Clean Dev (test Yes code = 6672) Performing Lab (test MDA Main Main Ca mpus code = 44443) [facility], [address], [facility], [place] [address]; Hi Lift Operator: Guerline Olmstead MD; Waived Point of Care Testing - Luz Maria elvi MD Lab Interpretation Abnormal (test code = 95624-8) [facility] [id number] 05:21:40 Test Item Value Reference Range Interpretation Comments POC VB pH (test code 7.39 7.31-7.41 = 2746-6) POC VB pCO2 (test 32 See_Comment L [Automate d message] code = 2020-05) The system [employer] generated this result transmitted ref erence range: 41 - 51 mmHg. The reference r ashley was not used to interpret this result as normal/abnor mal. POC VB pO2 (test 71 mmHg code = 2705-2) POC VB TCO2 (test 20 See_Comment L [Automate d message] code = 2026-02) The system [employer] generated this result transmitted ref erence range: 24 - 29 mEq/L. The reference r ashley was not used to interpret this result as normal/abnor mal. POC VB Bicarb (test 19 mmol/L 23-28 L code = 51407-0) POC VB Base Ex (test -5 mmol/L [...] which contains microfabricated sensors, a calibration dixie [employer], fluidics system , and a waste chamber . Each test cartridge contains chemic ally sensitive biose nsors on a [employer] ip that are config ured to perform spec ific tests. The microfabricated sensors measure analyte concent ration by an electroch emical assay. POC Sample Type Venous (test code = 6690) POC Clean Dev (test Yes code = 6672) Performing Lab (test MDA Main Main Ca mpus code = 93682) [facility] Lab, [address], [facility], [place] [address]; Hi Lift Operator: Guerline Olmstead MD; Waived Point of Care Testing - Luz Maria levi MD Lab Interpretation Abnormal (test code = 01546-1) [facility] [place] [id number] 05:21:40 Test Item Value Reference Range Interpretation Comments POC VB pH (test code 7.39 7.31-7.41 = 2746-6) POC VB pCO2 (test 32 See_Comment L [Automate d message] code = 2020-) The system [employer] generated this result transmitted ref erence range: 41 - 51 mmHg. The reference r ashley was not used to interpret this result as normal/abnor mal. POC VB pO2 (test 71 mmHg code = 2705-2) POC VB TCO2 (test 20 See_Comment L [Automate d message] code = 2026-02) The system [employer] generated this result transmitted ref erence range: 24 - 29 mEq/L. The reference r ashley was not used to interpret this result as normal/abnor mal. POC VB Bicarb (test 19 mmol/L 23-28 L code = 69838-6) POC VB Base Ex (test -5 mmol/L [...] which contains microfabricated sensors, a calibration dixie [employer], fluidics system , and a waste chamber . Each test cartridge contains chemic ally sensitive biose nsors on a [employer] ip that are config ured to perform spec ific tests. The microfabricated sensors measure analyte concent ration by an electroch emical assay. POC Sample Type Venous (test code = 6690) POC Clean Dev (test Yes code = 6672) Performing Lab (test MDA Main Main Ca mpus code = 38116) [facility] Lab, [address], [facility], [place] [address]; Hi Lift Operator: Guerline Olmstead MD; Waived Point of Care Testing - Luz Maria levi MD Lab Interpretation Abnormal (test code = 18762-9) [id number] 05:21:40 Test Item Value Reference Range Interpretation Comments POC VB pH (test code 7.39 7.31-7.41 = 2746-6) POC VB pCO2 (test 32 See_Comment L [Automate d message] code = 2020-) The system [employer] generated this result transmitted ref erence range: 41 - 51 mmHg. The reference r ashley was not used to interpret this result as normal/abnor mal. POC VB pO2 (test 71 mmHg code = 2705-2) POC VB TCO2 (test 20 See_Comment L [Automate d message] code = 2026-) The system [employer] generated this result transmitted ref erence range: 24 - 29 mEq/L. The reference r ashley was not used to interpret this result as normal/abnor mal. POC VB Bicarb (test 19 mmol/L 23-28 L code = 73827-1) POC VB Base Ex (test -5 mmol/L [...] which contains microfabricated sensors, a calibration dixie [employer], fluidics system , and a waste chamber . Each test cartridge contains chemic ally sensitive biose nsors on a [employer] ip that are config ured to perform spec ific tests. The microfabricated sensors measure analyte concent ration by an electroch emical assay. POC Sample Type Venous (test code = 6690) POC Clean Dev (test Yes code = 6672) Performing Lab (test MDA Main Main Ca mpus code = 05533) [facility] Lab, [address], [facility], [place] [address]; Hi Lift Operator: Guerline Olmstead MD; Waived Point of Care Testing - Luz Maria levi MD Lab Interpretation Abnormal (test code = 40471-7) [facility] [id number] 05:21:40 Test Item Value Reference Range Interpretation Comments POC VB pH (test code 7.39 7.31-7.41 = 2746-6) POC VB pCO2 (test 32 See_Comment L [Automate d message] code = 2020-) The system [employer] generated this result transmitted ref erence range: 41 - 51 mmHg. The reference r ashley was not used to interpret this result as normal/abnor mal. POC VB pO2 (test 71 mmHg code = 2705-2) POC VB TCO2 (test 20 See_Comment L [Automate d message] code = 2026-) The system [employer] generated this result transmitted ref erence range: 24 - 29 mEq/L. The reference r ashley was not used to interpret this result as normal/abnor mal. POC VB Bicarb (test 19 mmol/L 23-28 L code = 08727-9) POC VB Base Ex (test -5 mmol/L [...] which contains microfabricated sensors, a calibration dixie [employer], fluidics system , and a waste chamber . Each test cartridge contains chemic ally sensitive biose nsors on a [employer] ip that are config ured to perform spec ific tests. The microfabricated sensors measure analyte concent ration by an electroch emical assay. POC Sample Type Venous (test code = 6690) POC Clean Dev (test Yes code = 6672) Performing Lab (test MDA Main Main Ca mpus code = 47539) [facility] Cli [facility] Lab, [address] [facility], [place] [address]; Hi Lift Operator: Guerline Olmstead MD; Waived Point of Care Testing - Luz Maria levi MD Lab Interpretation Abnormal (test code = 46529-1) [facility] [id number] 05:21:40 Test Item Value Reference Range Interpretation Comments POC VB pH (test code 7.39 7.31-7.41 = 2746-6) POC VB pCO2 (test 32 See_Comment L [Automate d message] code = 2020-) The system [employer] generated this result transmitted ref erence range: 41 - 51 mmHg. The reference r ashley was not used to interpret this result as normal/abnor mal. POC VB pO2 (test 71 mmHg code = 2705-2) POC VB TCO2 (test 20 See_Comment L [Automate d message] code = 2026-) The system [employer] generated this result transmitted ref erence range: 24 - 29 mEq/L. The reference r ashley was not used to interpret this result as normal/abnor mal. POC VB Bicarb (test 19 mmol/L 23-28 L code = 84479-1) POC VB Base Ex (test -5 mmol/L [...] which contains microfabricated sensors, a calibration dixie [employer], fluidics system , and a waste chamber . Each test cartridge contains chemic ally sensitive biose nsors on a [employer] ip that are config ured to perform spec ific tests. The microfabricated sensors measure analyte concent ration by an electroch emical assay. POC Sample Type Venous (test code = 6690) POC Clean Dev (test Yes code = 6672) Performing Lab (test MDA Main Main Ca mpus code = 29869) [facility] Cli [facility]ical Lab, [address] [facility], [place] [address]; Hi Lift Operator: Guerline Olmstead MD; Waived Point of Care Testing - Luz Maria levi MD Lab Interpretation Abnormal (test code = 73141-2) [facility] [id number] 05:21:40 Test Item Value Reference Range Interpretation Comments POC VB pH (test code 7.39 7.31-7.41 = 2746-6) POC VB pCO2 (test 32 See_Comment L [Automate d message] code = 2020-) The system [employer] generated this result transmitted ref erence range: 41 - 51 mmHg. The reference r ashley was not used to interpret this result as normal/abnor mal. POC VB pO2 (test 71 mmHg code = 2705-2) POC VB TCO2 (test 20 See_Comment L [Automate d message] code = 2026-) The system [employer] generated this result transmitted ref erence range: 24 - 29 mEq/L. The reference r ashley was not used to interpret this result as normal/abnor mal. POC VB Bicarb (test 19 mmol/L 23-28 L code = 01296-4) POC VB Base Ex (test -5 mmol/L [...] ridge which contains microfabricated sensors, a calibration [employer], fluidics system , and a waste chamber . Each test cartridge contains chemic ally sensitive biose nsors on a [employer] ip that are config ured to perform spec ific tests. The microfabricated sensors measure analyte concent ration by an electroch emical assay. POC Sample Type Venous (test code = 6690) POC Clean Dev (test Yes code = 6672) Performing Lab (test MDA Main Main Ca mpus code = 71261) [facility] Cli nical Lab, [address] [place] [address]; Hi Lift Operator: Guerline Olmstead MD; Waived Point of Care Testing - Luz Maria levi MD Lab Interpretation Abnormal (test code = 65424-1) [facility] [id number] 05:21:40 Test Item Value Reference Range Interpretation Comments POC VB pH (test code 7.39 7.31-7.41 = 2746-6) POC VB pCO2 (test 32 See_Comment L [Automate d message] code = 2020-05) The system [employer] generated this result transmitted ref erence range: 41 - 51 mmHg. The reference r ashley was not used to interpret this result as normal/abnor mal. POC VB pO2 (test 71 mmHg code = 2705-2) POC VB TCO2 (test 20 See_Comment L [Automate d message] code = 2026-02) The system [employer] generated this result transmitted ref erence range: 24 - 29 mEq/L. The reference r ashley was not used to interpret this result as normal/abnor mal. POC VB Bicarb (test 19 mmol/L 23-28 L code = 77379-0) POC VB Base Ex (test -5 mmol/L [...] chemic ally sensitive biose nsors on a [employer] ip that are config ured to perform spec ific tests. The microfabricated sensors measure analyte concent ration by an electroch emical assay. POC Sample Type Venous (test code = 6690) POC Clean Dev (test Yes code = 6672) Performing Lab (test MDA Main Main Ca mpus code = 83282) [facility] Lab, [address] [facility] [address] [facility] [place] [address]; Hi Lift Operator: Guerline Olmstead MD; Waived Point of Care Testing - Luz Maria levi MD Lab Interpretation Abnormal (test code = 79613-0) [facility] [id number] 05:21:40 Test Item Value Reference Range Interpretation Comments POC VB pH (test code 7.39 7.31-7.41 = 2746-6) POC VB pCO2 (test 32 See_Comment L [Automate d message] code = 2020-05) The system [employer] generated this result transmitted ref erence range: 41 - 51 mmHg. The reference r ashley was not used to interpret this result as normal/abnor mal. POC VB pO2 (test 71 mmHg code = 2705-2) POC VB TCO2 (test 20 See_Comment L [Automate d message] code = 2026-02) The system [employer] generated this result transmitted ref erence range: 24 - 29 mEq/L. The reference r ashley was not used to interpret this result as normal/abnor mal. POC VB Bicarb (test 19 mmol/L 23-28 L code = 13134-2) POC VB Base Ex (test -5 mmol/L [...] chemic ally sensitive biose nsors on a [employer] ip that are config ured to perform spec ific tests. The microfabricated sensors measure analyte concent ration by an electroch emical assay. POC Sample Type Venous (test code = 6690) POC Clean Dev (test Yes code = 6672) Performing Lab (test MDA Main Main Ca mpus code = 69779) [facility] Cli [facility] Lab, [address] [place], [place] [address], [facility], [place] [address]; Hi Lift Operator: Guerline Olmstead MD; Waived Point of Care Testing - Luz Maria levi MD Lab Interpretation Abnormal (test code = 64691-6) [facility] [id number] 05:21:40 Test Item Value Reference Range Interpretation Comments POC VB pH (test code 7.39 7.31-7.41 = 2746-6) POC VB pCO2 (test 32 See_Comment L [Automate d message] code = 2020-) The system [employer] generated this result transmitted ref erence range: 41 - 51 mmHg. The reference r ashley was not used to interpret this result as normal/abnor mal. POC VB pO2 (test 71 mmHg code = 2705-2) POC VB TCO2 (test 20 See_Comment L [Automate d message] code = 2026-) The system [employer] generated this result transmitted ref erence range: 24 - 29 mEq/L. The reference r ashley was not used to interpret this result as normal/abnor mal. POC VB Bicarb (test 19 mmol/L 23-28 L code = 70209-3) POC VB Base Ex (test -5 mmol/L [...] which contains microfabricated sensors, a calibration dixie [employer], fluidics system , and a waste chamber . Each test cartridge contains chemic ally sensitive biose nsors on a [employer] ip that are config ured to perform spec ific tests. The microfabricated sensors measure analyte concent ration by an electroch emical assay. POC Sample Type Venous (test code = 6690) POC Clean Dev (test Yes code = 6672) Performing Lab (test MDA Main Main Ca mpus code = 30025) [facility] Cli [facility] Lab, [address] [place] [address] [address], [facility], [place] [address]; Hi Lift Operator: Guerline Olmstead MD; Waived Point of Care Testing - Luz Maria levi MD Lab Interpretation Abnormal (test code = 06141-0) [facility] [id number] 05:21:40 Test Item Value Reference Range Interpretation Comments POC VB pH (test code 7.39 7.31-7.41 = 2746-6) POC VB pCO2 (test 32 See_Comment L [Automate d message] code = 2020-) The system [employer] generated this result transmitted ref erence range: 41 - 51 mmHg. The reference r ashley was not used to interpret this result as normal/abnor mal. POC VB pO2 (test 71 mmHg code = 2705-2) POC VB TCO2 (test 20 See_Comment L [Automate d message] code = 2026-) The system [employer] generated this result transmitted ref erence range: 24 - 29 mEq/L. The reference r ashley was not used to interpret this result as normal/abnor mal. POC VB Bicarb (test 19 mmol/L 23-28 L code = 52279-9) POC VB Base Ex (test -5 mmol/L [...] which contains microfabricated sensors, a calibration dixie [employer], fluidics system , and a waste chamber . Each test cartridge contains chemic ally sensitive biose nsors on a [employer] ip that are config ured to perform spec ific tests. The microfabricated sensors measure analyte concent ration by an electroch emical assay. POC Sample Type Venous (test code = 6690) POC Clean Dev (test Yes code = 6672) Performing Lab (test MDA Main Main Ca mpus code = 55643) [facility] Cli [facility] Lab, [address] [place] [address], [facility], [place] [address]; Hi Lift Operator: Guerline Olmstead MD; Waived Point of Care Testing - Luz Maria levi MD Lab Interpretation Abnormal (test code = 49124-5) [facility]- Asymptomatic [id number] 04:11:05 Test Item Value Reference Range Interpretation Comments COVID19 (SARS Not Detected Not Detected CoV-2) Result (test code = ____[place] a 93811-0) qualitative reverse-transcr iptase polymerase karal n reaction (RT-PC R) developed for t he [employer] MAHAMED 680 0 system and inte nded [...] patients provid ed by the manufacture r ([employer]) c an be reviewed at:https://www. fda.go v/media/595123/ downlo ad. A fact shee t for Health Care pro viders is provided by the drive tester ([employer]) and can be reviewed at: https://www.fda .gov/m edia/767466/corinne nload Results must be interpreted wit hin [...] were verified by the Microbiology Laboratory at [facility], CLIA Accreditation # : [id number] and CAP Accreditation # : [id number]. COVID19 SARS TARGET NETWORK ANALYST Swab Source (test code = 49532) COVID19 SARS Pre-Out of OR Indication (test Procedure code = 76646) [facility]- Asymptomatic [id number] 04:11:05 Test Item Value Reference Range Interpretation Comments COVID19 (SARS Not Detected Not Detected CoV-2) Result (test code = ____This test i s a 45461-8) qualitative reverse-transcr iptase polymerase karla n reaction [...] patients provid ed by the manufacture r ([employer]) c an be reviewed at:https://www. fda.go v/media/994542/ downlo ad. A fact shee t for Health Care pro viders is provided by the drive tester ([employer]) and can be reviewed at: https://www.fda .gov/m edia/692760/corinne nload Results must be interpreted wit hin [...] were verified by the Microbiology Laboratory at [facility], CLIA Accreditation # : [id number] and CAP Accreditation # : [id number]. COVID19 SARS TARGET NETWORK ANALYST Swab Source (test code = 78991) COVID19 SARS Pre-Out of OR Indication (test Procedure code = 76023) [facility] ([facility]-2[facility] PCR- Asymptomatic [id number] 04:11:05 Test Item Value Reference Range Interpretation Comments COVID19 (SARS Not Detected Not Detected CoV-2) Result (test code = ____This test i s a 58059-1) qualitative reverse-transcr iptase polymerase karla n reaction [...] patients provid ed by the manufacture r ([employer]) c an be reviewed at:https://www. fda.go v/media/549318/ halmialo ad. A fact shee t for Health Care pro viders is provided by the drive tester ([employer]) and can be reviewed at: https://www.fda .gov/m edia/886206/corinne nload Results must be interpreted wit hin [...] were verified by the Microbiology Laboratory at [facility] [place], CLIA Accreditation # : [id number] and CAP Accreditation # : [id number]. COVID19 SARS TARGET NETWORK ANALYST Swab Source (test code = 52267) COVID19 SARS Pre-Out of OR Indication (test Procedure code = 02785) [facility] (SARS-CoV-2) PCR- Asymptomatic [id number] 04:11:05 Test Item Value Reference Range Interpretation Comments COVID19 (SARS Not Detected Not Detected CoV-2) Result (test code = ____This test i s a 22495-8) qualitative reverse-transcr iptase polymerase karla n reaction (RT-PC R) developed for t he [employer] MAHAMED 680 0 system and inte nded [...] patients provid ed by the manufacture r ([employer]) c an be reviewed at:https://www. fda.go v/media/749412/ downlo ad. A fact shee t for Health Care pro viders is provided by the drive tester ([employer]) and can be reviewed at: https://www.fda .gov/m edia/106827/corinne nload Results must be interpreted wit hin [...] were verified by the Microbiology Laboratory at [facility], CLIA Accreditation # : [id number] and CAP Accreditation # : [id number]. COVID19 SARS TARGET NETWORK ANALYST Swab Source (test code = 29286) COVID19 SARS Pre-Out of [place] Indication (test Procedure code = 71059) [facility]- Asymptomatic [id number] 04:11:05 Test Item Value Reference Range Interpretation Comments COVID19 (SARS Not Detected Not Detected CoV-2) Result (test code = ____This test i s a 43076-7) qualitative reverse-transcr iptase polymerase karla n reaction [...] patients provid ed by the manufacture r ([employer]) c an be reviewed at:https://www. fda.go v/media/187443/ downlo ad. A fact shee t for Health Care pro viders is provided by the drive tester ([employer]) and can be reviewed at: https://www.fda .gov/m edia/352142/corinne nload Results must be interpreted wit hin [...] were verified by the Microbiology Laboratory at [facility], CLIA Accreditation # : [id number] and CAP Accreditation # : [id number]. COVID19 SARS TARGET NETWORK ANALYST Swab Source (test code = 89478) COVID19 SARS Pre-Out of OR Indication (test Procedure code = 94846) [facility] [place]omatic [id number] 04:11:05 Test Item Value Reference Range Interpretation Comments COVID19 (SARS Not Detected Not Detected CoV-2) Result (test code = ____This test i s a 14811-9) qualitative reverse-transcr iptase polymerase karla n reaction [...] patients provid ed by the manufacture r ([employer]) c an be reviewed at:https://www. fda.go v/media/119134/ downlo ad. A fact shee t for Health Care pro viders is provided by the drive tester ([employer], [email or web address]) and can be reviewed at: https://www.fda .gov/m edia/284572/corinne nload Results must be interpreted wit hin [...] were verified by the Microbiology Laboratory at [facility], CLIA Accreditation # : [id number] and CAP Accreditation # : [id number]. COVID19 SARS TARGET NETWORK ANALYST Swab Source (test code = 26160) COVID19 SARS Pre-Out of OR Indication (test Procedure code = 14216) [facility] [place] [place] [facility]- Asymptomatic [id number] 04:11:05 Test Item Value Reference Range Interpretation Comments COVID19 (SARS Not Detected Not Detected CoV-2) Result (test code = ____This test i s a 90325-5) qualitative reverse-transcr iptase polymerase karla n reaction [...] patients provid ed by the manufacture r ([employer]) c an be reviewed at:https://www. fda.go v/media/220365/ downlo ad. A fact shee t for Health Care pro viders is provided by the drive tester ([employer]) and can be reviewed at: https://www.fda .gov/m edia/644119/corinne nload Results must be interpreted wit hin [...] were verified by the Microbiology Laboratory at [facility], CLIA Accreditation # : [id number] and CAP Accreditation # : [id number]. COVID19 SARS TARGET NETWORK ANALYST Swab Source (test code = 56817) COVID19 SARS Pre-Out of OR Indication (test Procedure code = 79652) [facility]- Asymptomatic [id number] 04:11:05 Test Item Value Reference Range Interpretation Comments COVID19 (SARS Not Detected Not Detected CoV-2) Result (test code = ____This test i s a 42745-6) qualitative reverse-transcr iptase polymerase karla n reaction [...] patients provid ed by the manufacture r ([employer]) c an be reviewed at:https://www. fda.go v/media/975951/ downlo ad. A fact shee t for Health Care pro viders is provided by the drive tester ([employer]) and can be reviewed at: https://www.fda .gov/m edia/396166/corinne nload Results must be interpreted wit hin [...] were verified by the Microbiology Laboratory at [facility], CLIA Accreditation # : [id number] and CAP Accreditation # : [id number]. COVID19 SARS TARGET NETWORK ANALYST Swab Source (test code = 11527) COVID19 SARS Pre-Out of OR Indication (test Procedure code = 87689) [facility] [place] [place] [facility]- Asymptomatic [id number] 04:11:05 Test Item Value Reference Range Interpretation Comments COVID19 (SARS Not Detected Not Detected CoV-2) Result (test code = ____This test i s a 83036-6) qualitative reverse-transcr iptase polymerase karla n reaction [...] patients provid ed by the manufacture r ([employer]) c an be reviewed at:https://www. [employer].go v/media/351346/ downlo ad. A fact shee t for Health Care pro viders is provided by the drive tester ([employer]) and can be reviewed at: https://www.fda .gov/m edia/955230/corinne nload Results must be interpreted wit hin [...] were verified by the Microbiology Laboratory at [facility], CLIA Accreditation # : [id number] and CAP Accreditation # : [id number]. COVID19 SARS TARGET NETWORK ANALYST Swab Source (test code = 34029) COVID19 SARS Pre-Out of OR Indication (test Procedure code = 39026) [facility]- Asymptomatic [id number] 04:11:05 Test Item Value Reference Range Interpretation Comments COVID19 (SARS Not Detected Not Detected CoV-2) Result (test code = ____This test i s a 27251-5) qualitative reverse-transcr iptase polymerase karla n reaction (RT-PC R) developed for t he [employer] MAHAMED 680 0 system and inte nded [...] patients provid ed by the manufacture r ([employer]) c an be reviewed at:https://www. fda.go v/media/335132/ downlo ad. A fact shee t for Health Care pro viders is provided by the drive tester ([employer]) and can be reviewed at: https://www.fda .gov/m edia/343438/corinne nload Results must be interpreted wit hin [...] were verified by the Microbiology Laboratory at [facility], CLIA Accreditation # : [id number] and CAP Accreditation # : [id number]. COVID19 SARS TARGET NETWORK ANALYST Swab Source (test code = 35917) COVID19 SARS Pre-Out of OR Indication (test Procedure code = 85619) [facility]- Asymptomatic [id number] 04:11:05 Test Item Value Reference Range Interpretation Comments COVID19 (SARS Not Detected Not Detected CoV-2) Result (test code = ____This test i s a 33638-8) qualitative reverse-transcr iptase polymerase karla n reaction [...] patients provid ed by the manufacture r ([employer]) c an be reviewed at:https://www. fda.go v/media/334116/ downlo ad. A fact shee t for Health Care pro viders is provided by the drive tester ([employer]) and can be reviewed at: https://www.fda .gov/m edia/463726/corinne nload Results must be interpreted wit hin [...] were verified by the Microbiology Laboratory at [facility], CLIA Accreditation # : [id number] and CAP Accreditation # : [id number]. COVID19 SARS TARGET NETWORK ANALYST Swab Source (test code = 07674) COVID19 SARS Pre-Out of OR Indication (test Procedure code = 13905) [facility] [place]- Asymptomatic [id number] 04:11:05 Test Item Value Reference Range Interpretation Comments COVID19 (SARS Not Detected Not Detected CoV-2) Result (test code = ____This test i s a 80194-4) qualitative reverse-transcr iptase polymerase karla n reaction [...] patients provid ed by the manufacture r ([employer]) c an be reviewed at:https://www. fda.go v/media/565379/ downlo ad. A fact shee t for Health Care pro viders is provided by the drive tester ([employer]) and can be reviewed at: https://www.fda .gov/m edia/946299/corinne nload Results must be interpreted wit hin [...] were verified by the Microbiology Laboratory at [facility], CLIA Accreditation # : [id number] and CAP Accreditation # : [id number]. COVID19 SARS TARGET NETWORK ANALYST Swab Source (test code = 08893) COVID19 SARS Pre-Out of OR Indication (test Procedure code = 83763) [facility]- Asymptomatic [id number] 04:11:05 Test Item Value Reference Range Interpretation Comments COVID19 (SARS Not Detected Not Detected CoV-2) Result (test code = ____This test i s a 34138-1) qualitative reverse-transcr iptase polymerase karla n reaction (RT-PC R) developed for t he [employer] 680 0 system and inte nded [...] patients provid ed by the manufacture r ([employer]) c an be reviewed at:https://www. fda.go v/media/593842/ downlo ad. A fact shee t for Health Care pro viders is provided by the drive tester ([employer]) and can be reviewed at: https://www.fda .gov/m edia/199360/corinne nload Results must be interpreted wit hin [...] were verified by the Microbiology Laboratory at [facility], CLIA Accreditation # : [id number] and CAP Accreditation # : [id number]. COVID19 SARS TARGET NETWORK ANALYST Swab Source (test code = 76560) COVID19 SARS Pre-Out of OR Indication (test Procedure code = 88315) [facility]- Asymptomatic [id number] 04:11:05 Test Item Value Reference Range Interpretation Comments COVID19 (SARS Not Detected Not Detected CoV-2) Result (test code = ____This test i s a 37305-4) qualitative reverse-transcr iptase polymerase karla n reaction [...] patients provid ed by the manufacture r ([employer]) c an be reviewed at:https://www. fda.go v/media/778158/ downlo ad. A fact shee t for Health Care pro viders is provided by the drive tester ([employer]) and can be reviewed at: https://www.fda .gov/m edia/728955/corinne nload Results must be interpreted wit hin [...] were verified by the Microbiology Laboratory at [facility], CLIA Accreditation # : [id number] and CAP Accreditation # : [id number]. COVID19 SARS TARGET NETWORK ANALYST Swab Source (test code = 02969) COVID19 SARS Pre-Out of OR Indication (test Procedure code = 28695) [facility] [place]- Asymptomatic [id number] 04:11:05 Test Item Value Reference Range Interpretation Comments COVID19 (SARS Not Detected Not Detected CoV-2) Result (test code = ____This test i s a 10802-2) qualitative reverse-transcr iptase polymerase karla n reaction [...] patients provid ed by the manufacture r ([employer]) c an be reviewed at:https://www. fda.go v/media/701679/ downlo ad. A fact shee t for Health Care pro viders is provided by the drive tester ([employer]) and can be reviewed at: https://www.fda .gov/m edia/446703/corinne nload Results must be interpreted wit hin [...] were verified by the Microbiology Laboratory at [facility], CLIA Accreditation # : [id number] and CAP Accreditation # : [id number]. COVID19 SARS TARGET NETWORK ANALYST Swab Source (test code = 83894) COVID19 SARS Pre-Out of OR Indication (test Procedure code = 38423) [facility]- Asymptomatic [id number] 04:11:05 Test Item Value Reference Range Interpretation Comments COVID19 (SARS Not Detected Not Detected CoV-2) Result (test code = ____This test i s a 21898-9) qualitative reverse-transcr iptase polymerase karla n reaction (RT-PC R) developed for t he [employer] 680 0 system and inte nded [...] patients provid ed by the manufacture r ([employer]) c an be reviewed at:https://www. fda.go v/media/354990/ downlo ad. A fact shee t for Health Care pro viders is provided by the drive tester ([employer]) and can be reviewed at: https://www.fda .gov/m edia/146336/corinne nload Results must be interpreted wit hin [...] were verified by the Microbiology Laboratory at [facility], CLIA Accreditation # : [id number] and CAP Accreditation # : [id number]. COVID19 SARS TARGET NETWORK ANALYST Swab Source (test code = 84702) COVID19 SARS Pre-Out of OR Indication (test Procedure code = 87285) [facility] Virus [id number] 20:13:39 Test Item Value Reference Range Interpretation Comments HCVAb. (test Non Reactive Non Reactive Antibody detect ion in the code = 5762) immunocompromis ed and immunosuppresse d population may be delayed or absent entirely. There fore serial testing, correl ation with other clinical findings, and supplementa l testing (if available) should be taken into cons ideration when interpreti ng the results. [facility] Virus [id number] 20:13:39 Test Item Value Reference Range Interpretation Comments HCVAb. (test Non Reactive Non Reactive Antibody detect ion in the code = 5762) immunocompromis ed and immunosuppresse d population may be delayed or absent entirely. There fore serial testing, correl ation with other clinical findings, and supplementa l testing (if available) should be taken into cons ideration when interpreti ng the results. [facility] C Virus [id number] 20:13:39 Test Item Value Reference Range Interpretation Comments HCVAb. (test Non Reactive Non Reactive Antibody detect ion in the code = 5762) immunocompromis ed and immunosuppresse d population may be delayed or absent entirely. There fore serial testing, correl ation with other clinical findings, and supplementa l testing (if available) should be taken into cons ideration when interpreti ng the results. [facility] [id number] 20:13:39 Test Item Value Reference Range Interpretation Comments HCVAb. (test Non Reactive Non Reactive Antibody detect ion in the code = 5762) immunocompromis ed and immunosuppresse d population may be delayed or absent entirely. There fore serial testing, correl ation with other clinical findings, and supplementa l testing (if available) should be taken into cons ideration when interpreti ng the results. [facility] Virus [id number] 20:13:39 Test Item Value Reference Range Interpretation Comments HCVAb. (test Non Reactive Non Reactive Antibody detect ion in the code = 5762) immunocompromis ed and immunosuppresse d population may be delayed or absent entirely. There fore serial testing, correl ation with other clinical findings, and supplementa l testing (if available) should be taken into cons ideration when interpreti ng the results. [facility] C Virus [id number] 20:13:39 Test Item Value Reference Range Interpretation Comments HCVAb. (test Non Reactive Non Reactive Antibody detect ion in the code = 5762) immunocompromis ed and immunosuppresse d population may be delayed or absent entirely. There fore serial testing, correl ation with other clinical findings, and supplementa l testing (if available) should be taken into cons ideration when interpreti ng the results. [facility] Virus [id number] 20:13:39 Test Item Value Reference Range Interpretation Comments HCVAb. (test Non Reactive Non Reactive Antibody detect ion in the code = 5762) immunocompromis ed and immunosuppresse d population may be delayed or absent entirely. There fore serial testing, correl ation with other clinical findings, and supplementa l testing (if available) should be taken into cons ideration when interpreti ng the results. [facility] C Virus [id number] 20:13:39 Test Item Value Reference Range Interpretation Comments HCVAb. (test Non Reactive Non Reactive Antibody detect ion in the code = 5762) immunocompromis ed and immunosuppresse d population may be delayed or absent entirely. There fore serial testing, correl ation with other clinical findings, and supplementa l testing (if available) should be taken into cons ideration when interpreti ng the results. [facility] C Virus [id number] 20:13:39 Test Item Value Reference Range Interpretation Comments HCVAb. (test Non Reactive Non Reactive Antibody detect ion in the code = 5762) immunocompromis ed and immunosuppresse d population may be delayed or absent entirely. There fore serial testing, correl ation with other clinical findings, and supplementa l testing (if available) should be taken into cons ideration when interpreti ng the results. [facility] C Virus [id number] 20:13:39 Test Item Value Reference Range Interpretation Comments HCVAb. (test Non Reactive Non Reactive Antibody detect ion in the code = 5762) immunocompromis ed and immunosuppresse d population may be delayed or absent entirely. There fore serial testing, correl ation with other clinical findings, and supplementa l testing (if available) should be taken into cons ideration when interpreti ng the results. [facility] C Virus [id number] 20:13:39 Test Item Value Reference Range Interpretation Comments HCVAb. (test Non Reactive Non Reactive Antibody detect ion in the code = 5762) immunocompromis ed and immunosuppresse d population may be delayed or absent entirely. There fore serial testing, correl ation with other clinical findings, and supplementa l testing (if available) should be taken into cons ideration when interpreti ng the results. [facility] Virus [id number] 20:13:39 Test Item Value Reference Range Interpretation Comments HCVAb. (test Non Reactive Non Reactive Antibody detect ion in the code = 5762) immunocompromis ed and immunosuppresse d population may be delayed or absent entirely. There fore serial testing, correl ation with other clinical findings, and supplementa l testing (if available) should be taken into cons ideration when interpreti ng the results. [facility] C Virus [id number] 20:13:39 Test Item Value Reference Range Interpretation Comments HCVAb. (test Non Reactive Non Reactive Antibody detect ion in the code = 5762) immunocompromis ed and immunosuppresse d population may be delayed or absent entirely. There fore serial testing, correl ation with other clinical findings, and supplementa l testing (if available) should be taken into cons ideration when interpreti ng the results. [facility] C Virus [id number] 20:13:39 Test Item Value Reference Range Interpretation Comments HCVAb. (test Non Reactive Non Reactive Antibody detect ion in the code = 5762) immunocompromis ed and immunosuppresse d population may be delayed or absent entirely. There fore serial testing, correl ation with other clinical findings, and supplementa l testing (if available) should be taken into cons ideration when interpreti ng the results. [facility] C Virus [id number] 20:13:39 Test Item Value Reference Range Interpretation Comments HCVAb. (test Non Reactive Non Reactive Antibody detect ion in the code = 5762) immunocompromis ed and immunosuppresse d population may be delayed or absent entirely. There fore serial testing, correl ation with other clinical findings, and supplementa l testing (if available) should be taken into cons ideration when interpreti ng the results. [facility] C Virus [id number] 20:13:39 Test Item Value Reference Range Interpretation Comments HCVAb. (test Non Reactive Non Reactive Antibody detect ion in the code = 5762) immunocompromis ed and immunosuppresse d population may be delayed or absent entirely. There fore serial testing, correl ation with other clinical findings, and supplementa l testing (if available) should be taken into cons ideration when interpreti ng the results. [facility] 20:09:03 Test Item Value Reference Range Interpretation [...] 1650 IU/mL. [Automated mess age] The system [employer] generated this result transmitted ref erence range: <=3.9 IU/ml. The refe rence range was not u sed to interpret this result as normal/abnor mal. [facility] 20:09:03 Test Item Value Reference Range Interpretation [...] Thyroglob Ab (test See_Comment Due to va Hero[employer] code = 7621) antigen specifi city, affinity and av idity of capture and conjugate antib odies in their epitop e reactions, some thyroglobulin antibody sample s may not dilute line helena when results ex ceed 1650 IU/mL. [Automated mess age] The system [employer] generated this result transmitted ref erence range: <=3.9 IU/ml. The refe rence range was not u sed to interpret this result as normal/abnor mal. [facility] 20:09:03 Test Item Value Reference Range Interpretation Comments Thyroglobulin (test 2.98 ng/mL 1.59-50.03 Referenc e range in code = 7622) athyrotic patie nts is <0.1 ng/mL. Due to varying antigen specificity, af finity and avidity of capture and con jugate antibodies in t heir epitope reactio ns, some thyroglobu shermna samples may not dilute linearly when results exceed 450 ng/mL. Thyroglob Ab (test See_Comment Due to va rying code = 7621) antigen specifi city, affinity and av idity of capture and conjugate antib odies in their epitop e reactions, some thyroglobulin antibody sample s may not dilute line helena when results ex ceed 1650 IU/mL. [Automated mess age] The system [employer] generated this result transmitted ref erence range: <=3.9 IU/ml. The refe rence range was not u sed to interpret this result as normal/abnor mal. [facility] 20:09:03 Test Item Value Reference Range Interpretation [...] ng/mL. Thyroglob Ab (test See_Comment Due to [employer] code = 7621) antigen specifi city, affinity and av idity of capture and conjugate antib odies in their epitop e reactions, some thyroglobulin antibody sample s may not dilute line helena when results ex ceed 1650 IU/mL. [Automated mess age] The system [employer] generated this result transmitted ref erence range: <=3.9 IU/ml. The refe rence range was not u sed to interpret this result as normal/abnor mal. [facility] 20:09:03 Test Item Value Reference Range Interpretation [...] ng/mL. Thyroglob Ab (test See_Comment Due to [employer] code = 7621) antigen specifi city, affinity and av idity of capture and conjugate antib odies in their epitop e reactions, some thyroglobulin antibody sample s may not dilute line helena when results ex ceed 1650 IU/mL. [Automated mess age] The system [employer] generated this result transmitted ref erence range: <=3.9 IU/ml. The refe rence range was not u sed to interpret this result as normal/abnor mal. [facility] 20:09:03 Test Item Value Reference Range Interpretation [...] ng/mL. Thyroglob Ab (test See_Comment Due to Jovie code = 7621) antigen specifi city, affinity and av idity of capture and conjugate antib odies in their epitop e reactions, some thyroglobulin antibody sample s may not dilute line helena when results ex ceed 1650 IU/mL. [Automated mess age] The system [employer] generated this result transmitted ref erence range: <=3.9 IU/ml. The refe rence range was not u sed to interpret this result as normal/abnor mal. [facility] 20:09:03 Test Item Value Reference Range Interpretation [...] ng/mL. Thyroglob Ab (test See_Comment Due to [employer] code = 7621) antigen specifi city, affinity and av idity of capture and conjugate antib odies in their epitop e reactions, some thyroglobulin antibody sample s may not dilute line helena when results ex ceed 1650 IU/mL. [Automated mess age] The system [employer] generated this result transmitted ref erence range: <=3.9 IU/ml. The refe rence range was not u sed to interpret this result as normal/abnor mal. [facility]03 Test Item Value Reference Range Interpretation [...] 1650 IU/mL. [Automated mess age] The system [employer] generated this result transmitted ref erence range: <=3.9 IU/ml. The refe rence range was not u sed to interpret this result as normal/abnor mal. [facility]:03 Test Item Value Reference Range Interpretation [...] ng/mL. Thyroglob Ab (test See_Comment Due to [employer] rying code = 7621) antigen specifi city, affinity and av idity of capture and conjugate antib odies in their epitop e reactions, some thyroglobulin antibody sample s may not dilute line helena when results ex ceed 1650 IU/mL. [Automated mess age] The system [employer] generated this result transmitted ref erence range: <=3.9 IU/ml. The refe rence range was not u sed to interpret this result as normal/abnor mal. [facility] 20:09:03 Test Item Value Reference Range Interpretation [...] ng/mL. Thyroglob Ab (test See_Comment Due to nv Hero[employer] code = 7621) antigen specifi city, affinity and av idity of capture and conjugate antib odies in their epitop e reactions, some thyroglobulin antibody sample s may not dilute line helena when results ex ceed 1650 IU/mL. [Automated mess age] The system [employer] generated this result transmitted ref erence range: <=3.9 IU/ml. The refe rence range was not u sed to interpret this result as normal/abnor mal. [facility] 20:09:03 Test Item Value Reference Range Interpretation [...] ng/mL. Thyroglob Ab (test See_Comment Due to [facility] code = 7621) antigen specifi city, affinity and av idity of capture and conjugate antib odies in their epitop e reactions, some thyroglobulin antibody sample s may not dilute line helena when results ex ceed 1650 IU/mL. [Automated mess age] The system [employer] generated this result transmitted ref erence range: <=3.9 IU/ml. The refe rence range was not u sed to interpret this result as normal/abnor mal. [facility] 20:09:03 Test Item Value Reference Range Interpretation [...] 1650 IU/mL. [Automated mess age] The system [employer] generated this result transmitted ref erence range: <=3.9 IU/ml. The refe rence range was not u sed to interpret this result as normal/abnor mal. [facility] 20:09:03 Test Item Value Reference Range Interpretation [...] ng/mL. Thyroglob Ab (test See_Comment Due to nv rying code = 7621) antigen specifi city, affinity and av idity of capture and conjugate antib odies in their epitop e reactions, some thyroglobulin antibody sample s may not dilute line helena when results ex ceed 1650 IU/mL. [Automated mess age] The system [employer] generated this result transmitted ref erence range: <=3.9 IU/ml. The refe rence range was not u sed to interpret this result as normal/abnor mal. [facility] 20:09:03 Test Item Value Reference Range Interpretation [...] ng/mL. Thyroglob Ab (test See_Comment Due to [employer] code = 7621) antigen specifi city, affinity and av idity of capture and conjugate antib odies in their epitop e reactions, some thyroglobulin antibody sample s may not dilute line helena when results ex ceed 1650 IU/mL. [Automated mess age] The system [employer] generated this result transmitted ref erence range: <=3.9 IU/ml. The refe rence range was not u sed to interpret this result as normal/abnor mal. [facility] 20:09:03 Test Item Value Reference Range Interpretation [...] ng/mL. Thyroglob Ab (test See_Comment Due to [employer] code = 7621) antigen specifi city, affinity and av idity of capture and conjugate antib odies in their epitop e reactions, some thyroglobulin antibody sample s may not dilute line helena when results ex ceed 1650 IU/mL. [Automated mess age] The system [employer] generated this result transmitted ref erence range: <=3.9 IU/ml. The refe rence range was not u sed to interpret this result as normal/abnor mal. [facility] 20:09:03 Test Item Value Reference Range Interpretation [...] 1650 IU/mL. [Automated mess age] The system [employer] generated this result transmitted ref erence range: <=3.9 IU/ml. The refe rence range was not u sed to interpret this result as normal/abnor mal. [facility] [id number] 19:37:52 Test Item Value Reference Range Interpretation Comments Vitamin D 25 OH (test 21 ng/mL 30-100 L Refere nce Range: code = 83924-4) Deficiency: <10 ng/mLInsufficie ncy: 10-29 ng/mLSufficienc y: 30-100 ng/mLPotential toxicity: >100 ng/mL Lab Interpretation (test Abnormal code = 79731-7) [facility] [id number] 19:37:52 Test Item Value Reference Range Interpretation Comments Vitamin D 25 OH (test 21 ng/mL 30-100 L Refere nce Range: code = 85329-9) Deficiency: <10 ng/mLInsufficie ncy: 10-29 ng/mLSufficienc y: 30-100 ng/mLPotential toxicity: >100 ng/mL Lab Interpretation (test Abnormal code = 53540-9) [facility] [id number] 19:37:52 Test Item Value Reference Range Interpretation Comments Vitamin D 25 OH (test 21 ng/mL 30-100 L Refere nce Range: code = 63445-8) Deficiency: <10 ng/mLInsufficie ncy: 10-29 ng/mLSufficienc y: 30-100 ng/mLPotential toxicity: >100 ng/mL Lab Interpretation (test Abnormal code = 31391-2) [facility] [id number] 19:37:52 Test Item Value Reference Range Interpretation Comments Vitamin D 25 OH (test 21 ng/mL 30-100 L Refere nce Range: code = 03217-0) Deficiency: <10 ng/mLInsufficie ncy: 10-29 ng/mLSufficienc y: 30-100 ng/mLPotential toxicity: >100 ng/mL Lab Interpretation (test Abnormal code = 41967-4) [facility] [id number] 19:37:52 Test Item Value Reference Range Interpretation Comments Vitamin D 25 OH (test 21 ng/mL 30-100 L Refere nce Range: code = 52734-9) Deficiency: <10 ng/mLInsufficie ncy: 10-29 ng/mLSufficienc y: 30-100 ng/mLPotential toxicity: >100 ng/mL Lab Interpretation (test Abnormal code = 30661-7) [facility] [id number] 19:37:52 Test Item Value Reference Range Interpretation Comments Vitamin D 25 OH (test 21 ng/mL 30-100 L Refere nce Range: code = 30167-1) Deficiency: <10 ng/mLInsufficie ncy: 10-29 ng/mLSufficienc y: 30-100 ng/mLPotential toxicity: >100 ng/mL Lab Interpretation (test Abnormal code = 36343-1) [facility] [id number] 19:37:52 Test Item Value Reference Range Interpretation Comments Vitamin D 25 OH (test 21 ng/mL 30-100 L Refere nce Range: code = 65334-9) Deficiency: <10 ng/mLInsufficie ncy: 10-29 ng/mLSufficienc y: 30-100 ng/mLPotential toxicity: >100 ng/mL Lab Interpretation (test Abnormal code = 28919-6) [facility] [id number] 19:37:52 Test Item Value Reference Range Interpretation Comments Vitamin D 25 OH (test 21 ng/mL 30-100 L Refere nce Range: code = 46134-8) Deficiency: <10 ng/mLInsufficie ncy: 10-29 ng/mLSufficienc y: 30-100 ng/mLPotential toxicity: >100 ng/mL Lab Interpretation (test Abnormal code = 89243-7) [facility] [id number] 19:37:52 Test Item Value Reference Range Interpretation Comments Vitamin D 25 OH (test 21 ng/mL 30-100 L Refere nce Range: code = 94244-2) Deficiency: <10 ng/mLInsufficie ncy: 10-29 ng/mLSufficienc y: 30-100 ng/mLPotential toxicity: >100 ng/mL Lab Interpretation (test Abnormal code = 07360-3) [facility] [id number] 19:37:52 Test Item Value Reference Range Interpretation Comments Vitamin D 25 OH (test 21 ng/mL 30-100 L Refere nce Range: code = 84922-5) Deficiency: <10 ng/mLInsufficie ncy: 10-29 ng/mLSufficienc y: 30-100 ng/mLPotential toxicity: >100 ng/mL Lab Interpretation (test Abnormal code = 04867-7) [facility] [id number] 19:37:52 Test Item Value Reference Range Interpretation Comments Vitamin D 25 OH (test 21 ng/mL 30-100 L Refere nce Range: code = 11538-4) Deficiency: <10 ng/mLInsufficie ncy: 10-29 ng/mLSufficienc y: 30-100 ng/mLPotential toxicity: >100 ng/mL Lab Interpretation (test Abnormal code = 49665-5) [facility] [id number] 19:37:52 Test Item Value Reference Range Interpretation Comments Vitamin D 25 OH (test 21 ng/mL 30-100 L Refere nce Range: code = 09752-9) Deficiency: <10 ng/mLInsufficie ncy: 10-29 ng/mLSufficienc y: 30-100 ng/mLPotential toxicity: >100 ng/mL Lab Interpretation (test Abnormal code = 07069-2) [facility] [id number] 19:37:52 Test Item Value Reference Range Interpretation Comments Vitamin D 25 OH (test 21 ng/mL 30-100 L Refere nce Range: code = 94034-7) Deficiency: <10 ng/mLInsufficie ncy: 10-29 ng/mLSufficienc y: 30-100 ng/mLPotential toxicity: >100 ng/mL Lab Interpretation (test Abnormal code = 49495-8) [facility] [id number] 19:37:52 Test Item Value Reference Range Interpretation Comments Vitamin D 25 OH (test 21 ng/mL 30-100 L Refere nce Range: code = 34012-9) Deficiency: <10 ng/mLInsufficie ncy: 10-29 ng/mLSufficienc y: 30-100 ng/mLPotential toxicity: >100 ng/mL Lab Interpretation (test Abnormal code = 43956-5) [facility] [id number] 19:37:52 Test Item Value Reference Range Interpretation Comments Vitamin D 25 OH (test 21 ng/mL 30-100 L Refere nce Range: code = 65911-1) Deficiency: <10 ng/mLInsufficie ncy: 10-29 ng/mLSufficienc y: 30-100 ng/mLPotential toxicity: >100 ng/mL Lab Interpretation (test Abnormal code = 51532-7) [facility] [id number] 19:37:52 Test Item Value Reference Range Interpretation Comments Vitamin D 25 OH (test 21 ng/mL 30-100 L Refere nce Range: code = 15078-9) Deficiency: <10 ng/mLInsufficie ncy: 10-29 ng/mLSufficienc y: 30-100 ng/mLPotential toxicity: >100 ng/mL Lab Interpretation (test Abnormal code = 68418-0) [facility] 19:28:34 Test Item Value Reference Range Interpretation Comments TSH (test code = 0.01 See_Comment L [Automated message] 23427-7) The system [employer] generated this result transmitted ref erence range: 0.27 - 4 .20 mcunit/mL. The reference range was not used to int erpret this result as normal/abnormal . Lab Interpretation (test Abnormal code = 75272-4) [facility] 19:28:34 Test Item Value Reference Range Interpretation Comments TSH (test code = 0.01 See_Comment L [Automated message] 90588-1) The system [employer] generated this result transmitted ref erence range: 0.27 - 4 .20 mcunit/mL. The reference range was not used to int erpret this result as normal/abnormal . Lab Interpretation (test Abnormal code = 56672-6) [facility] 19:28:34 Test Item Value Reference Range Interpretation Comments TSH (test code = 0.01 See_Comment L [Automated message] 37025-0) The system [employer] generated this result transmitted ref erence range: 0.27 - 4 .20 mcunit/mL. The reference range was not used to int erpret this result as normal/abnormal . Lab Interpretation (test Abnormal code = 32601-5) [facility] 19:28:34 Test Item Value Reference Range Interpretation Comments TSH (test code = 0.01 See_Comment L [Automated message] 05544-7) The system [employer] generated this result transmitted ref erence range: 0.27 - 4 .20 mcunit/mL. The reference range was not used to int erpret this result as normal/abnormal . Lab Interpretation (test Abnormal code = 62997-3) [facility] 19:28:34 Test Item Value Reference Range Interpretation Comments TSH (test code = 0.01 See_Comment L [Automated message] 44482-0) The system [employer] generated this result transmitted ref erence range: 0.27 - 4 .20 mcunit/mL. The reference range was not used to int erpret this result as normal/abnormal . Lab Interpretation (test Abnormal code = 08465-0) [facility] 19:28:34 Test Item Value Reference Range Interpretation Comments TSH (test code = 0.01 See_Comment L [Automated message] 29540-4) The system [employer] generated this result transmitted ref erence range: 0.27 - 4 .20 mcunit/mL. The reference range was not used to int erpret this result as normal/abnormal . Lab Interpretation (test Abnormal code = 56990-2) [facility] 19:28:34 Test Item Value Reference Range Interpretation Comments TSH (test code = 0.01 See_Comment L [Automated message] 11466-2) The system [employer] generated this result transmitted ref erence range: 0.27 - 4 .20 mcunit/mL. The reference range was not used to int erpret this result as normal/abnormal . Lab Interpretation (test Abnormal code = 54521-9) [facility] 19:28:34 Test Item Value Reference Range Interpretation Comments TSH (test code = 0.01 See_Comment L [Automated message] 76636-4) The system [employer] generated this result transmitted ref erence range: 0.27 - 4 .20 mcunit/mL. The reference range was not used to int erpret this result as normal/abnormal . Lab Interpretation (test Abnormal code = 47106-0) [place] [id number] 19:28:34 Test Item Value Reference Range Interpretation Comments TSH (test code = 0.01 See_Comment L [Automated message] 92669-2) The system [employer] generated this result transmitted ref erence range: 0.27 - 4 .20 mcunit/mL. The reference range was not used to int erpret this result as normal/abnormal . Lab Interpretation (test Abnormal code = 37577-2) [place] [id number] 19:28:34 Test Item Value Reference Range Interpretation Comments TSH (test code = 0.01 See_Comment L [Automated message] 87837-1) The system [employer] generated this result transmitted ref erence range: 0.27 - 4 .20 mcunit/mL. The reference range was not used to int erpret this result as normal/abnormal . Lab Interpretation (test Abnormal code = 66754-7) [facility] Test Item Value Reference Range Interpretation Comments TSH (test code = 0.01 See_Comment L [Automated message] 97904-2) The system [employer] generated this result transmitted ref erence range: 0.27 - 4 .20 mcunit/mL. The reference range was not used to int erpret this result as normal/abnormal . Lab Interpretation (test Abnormal code = 52370-8) [place] [id number] 19:28:34 Test Item Value Reference Range Interpretation Comments TSH (test code = 0.01 See_Comment L [Automated message] 55192-8) The system [employer] generated this result transmitted ref erence range: 0.27 - 4 .20 mcunit/mL. The reference range was not used to int erpret this result as normal/abnormal . Lab Interpretation (test Abnormal code = 56599-6) [place] [id number] 19:28:34 Test Item Value Reference Range Interpretation Comments TSH (test code = 0.01 See_Comment L [Automated message] 13845-6) The system [employer] generated this result transmitted ref erence range: 0.27 - 4 .20 mcunit/mL. The reference range was not used to int erpret this result as normal/abnormal . Lab Interpretation (test Abnormal code = 59642-0) [place] [id number] 19:28:34 Test Item Value Reference Range Interpretation Comments TSH (test code = 0.01 See_Comment L [Automated message] 87662-8) The system [employer] generated this result transmitted ref erence range: 0.27 - 4 .20 mcunit/mL. The reference range was not used to int erpret this result as normal/abnormal . Lab Interpretation (test Abnormal code = 70119-9) [place] [id number] 19:28:34 Test Item Value Reference Range Interpretation Comments TSH (test code = 0.01 See_Comment L [Automated message] 35834-0) The system [employer] generated this result transmitted ref erence range: 0.27 - 4 .20 mcunit/mL. The reference range was not used to int erpret this result as normal/abnormal . Lab Interpretation (test Abnormal code = 93595-8) [place] [id number] 19:28:34 Test Item Value Reference Range Interpretation Comments TSH (test code = 0.01 See_Comment L [Automated message] 54783-5) The system [employer] generated this result transmitted ref erence range: 0.27 - 4 .20 mcunit/mL. The reference range was not used to int erpret this result as normal/abnormal . Lab Interpretation (test Abnormal code = 98779-4) [facility] [id number] 19:28:32 Test Item Value Reference Range Interpretation Comments T4 Free (test code = 3024-7) 1.74 ng/dL 0.93-1.70 H Lab Interpretation (test code = Abnormal 44018-3) [place] [id number] 19:28:32 Test Item Value Reference Range Interpretation Comments T4 Free (test code = 3024-7) 1.74 ng/dL 0.93-1.70 H Lab Interpretation (test code = Abnormal 37329-9) [facility] [id number] 19:28:32 Test Item Value Reference Range Interpretation Comments T4 Free (test code = 3024-7) 1.74 ng/dL 0.93-1.70 H Lab Interpretation (test code = Abnormal 16195-4) [facility] [id number] 19:28:32 Test Item Value Reference Range Interpretation Comments T4 Free (test code = 3024-7) 1.74 ng/dL 0.93-1.70 H Lab Interpretation (test code = Abnormal 18920-1) [facility] [id number] 19:28:32 Test Item Value Reference Range Interpretation Comments T4 Free (test code = 3024-7) 1.74 ng/dL 0.93-1.70 H Lab Interpretation (test code = Abnormal 63748-2) [facility] [id number] 19:28:32 Test Item Value Reference Range Interpretation Comments T4 Free (test code = 3024-7) 1.74 ng/dL 0.93-1.70 H Lab Interpretation (test code = Abnormal 61827-6) [facility] [id number] 19:28:32 Test Item Value Reference Range Interpretation Comments T4 Free (test code = 3024-7) 1.74 ng/dL 0.93-1.70 H Lab Interpretation (test code = Abnormal 87198-0) [facility] [id number] 19:21:21 Test Item Value Reference Range Interpretation Comments PTH Intact (test code = 6769) 21.0 pg/mL 15.0-65.0 [facility] [id number] 19:21:21 Test Item Value Reference Range Interpretation Comments PTH Intact (test code = 6769) 21.0 pg/mL 15.0-65.0 [facility] [id number] 19:21:21 Test Item Value Reference Range Interpretation Comments PTH Intact (test code = 6769) 21.0 pg/mL 15.0-65.0 [facility] [id number] 19:21:21 Test Item Value Reference Range Interpretation Comments PTH Intact (test code = 6769) 21.0 pg/mL 15.0-65.0 [facility] [id number] 19:21:21 Test Item Value Reference Range Interpretation Comments PTH Intact (test code = 6769) 21.0 pg/mL 15.0-65.0 [facility] [id number] 19:21:21 Test Item Value Reference Range Interpretation Comments PTH Intact (test code = 6769) 21.0 pg/mL 15.0-65.0 [facility] [id number] 19:21:21 Test Item Value Reference Range Interpretation Comments PTH Intact (test code = 6769) 21.0 pg/mL 15.0-65.0 [facility] [id number] 19:21:21 Test Item Value Reference Range Interpretation Comments PTH Intact (test code = 6769) 21.0 pg/mL 15.0-65.0 [facility] [id number] 19:21:21 Test Item Value Reference Range Interpretation Comments PTH Intact (test code = 6769) 21.0 pg/mL 15.0-65.0 [facility] [id number] 19:21:21 Test Item Value Reference Range Interpretation Comments PTH Intact (test code = 6769) 21.0 pg/mL 15.0-65.0 [facility] [id number] 19:21:21 Test Item Value Reference Range Interpretation Comments PTH Intact (test code = 6769) 21.0 pg/mL 15.0-65.0 [facility] [id number] 19:21:21 Test Item Value Reference Range Interpretation Comments PTH Intact (test code = 6769) 21.0 pg/mL 15.0-65.0 [facility] [id number] 19:21:21 Test Item Value Reference Range Interpretation Comments PTH Intact (test code = 6769) 21.0 pg/mL 15.0-65.0 [facility] [id number] 19:21:21 Test Item Value Reference Range Interpretation Comments PTH Intact (test code = 6769) 21.0 pg/mL 15.0-65.0 [facility] [id number] 19:21:21 Test Item Value Reference Range Interpretation Comments PTH Intact (test code = 6769) 21.0 pg/mL 15.0-65.0 [facility] [id number] 19:21:21 Test Item Value Reference Range Interpretation Comments PTH Intact (test code = 6769) 21.0 pg/mL 15.0-65.0 [facility] [id number] 13:24:45SPECIMEN NUMBER: [id number] CULTURE, ANAEROBIC SPECIMEN NUMBER: [id number] SPECIMEN COMMENT: UND SOURCE: UNDEFINED REPORT STATUS: FINAL DIRECT GRAM STAIN: NO WBCs SEEN ABUNDANT GRAM POSITIVE COCCI FINALREPORT: 02/13/2022 NO ANAEROBES RECOVERED AFTER 5 DAYS PRELIMINARY ANAEROBE REPORT: 02/12/2022 NO ANAEROBES ISOLATED AT 4 DAYS ADDITIONAL OBSERVATIONS: 02/13/2022 POTENTIAL AEROBIC PATHOGEN RECOVERED.NO FURTHER WORKUP UNLESS REQUESTED. UNLESS OTHERWISE INDICATED, ALL TESTING PERFORMED [facility] [address] [place] [id number] [employer]TER: LUZMARIA HAUSER M.D. CLIA NUMBER [id number] [facility]. [id number], [id number] 00:00:00 Test Item Value Reference Range Interpretation Comments CULTURE, ANAEROBIC SPECIMEN NUMBER: (test code = 46032) [id number] CULTURE, [id number] 00:00:00 Test Item Value Reference Range Interpretation Comments CULTURE, ANAEROBIC SPECIMEN NUMBER: (test code = 87983 [id number]
[2023-01-01 13:18] LABS: Absolute Lymphocytes (CBC) 2.8 K/uL (0.7-4.9); Hematocrit 38.7 % (36.0-45.0); Lymphocytes % 42.2 % (15.3-44.8); MCV 79.4 fL (80-100); MPV 7.9 fL (7.6-11.3); Platelets 322 thou/uL (152-406); RBC Red Blood Cell Count 4.87 M/uL (3.86-4.86)
[2023-01-01 13:29] LABS: Protime INR 0.91
[2023-01-01 13:42] LABS: ALT/SGPT 46 U/L (13-56); AST/SGOT 29 U/L (15-37); Alkaline Phosphatase 103 U/L (45-117); BUN Blood Urea Nitrogen 13 mg/dL (7-18); Bicarbonate 24 mEq/L (21-32); Bilirubin Total 0.3 mg/dL (0.2-1.0); Glomerular Filtration Rate 123 ml/min (=/>90); Glucose Level 372 mg/dL (74-106); Potassium 3.8 mEq/L (3.5-5.1); Protein, Total 7.9 g/dL (6.4-8.2); Sodium Level 135 mEq/L (136-145)
[2023-01-01 13:45] LABS: Bilirubin Direct < 0.1 mg/dL (0-0.2); Bilirubin Indirect, Calculated ND mg/dL (0.2-0.8)
[2023-01-01 14:18] LABS: Barbiturates NEGATIVE (NEGATIVE); Benzodiazepines NEGATIVE (NEGATIVE); Cocaine NEGATIVE (NEGATIVE); METHAMPHETAM NEGATIVE (NEGATIVE); Methadone NEGATIVE (NEGATIVE); Opiates NEGATIVE (NEGATIVE); Phencyclidine NEGATIVE (NEGATIVE); THC Cannibis NEGATIVE (NEGATIVE)
--- NOTE | 2023-01-01 17:03 | EDPHYS ---
Physician Documentation [facility] Name: Veronica Olmstead Age: 27 yrs Sex: Female : 1995 Arrival Date: 01/01/2023 Time: 12:13 Bed 18 Private MD: ED Physician Tonny Hightower HPI: 01/01 16:21 This 27 yrs old Female presents to ER via Ambulatory with complaints of ms3 Suicidal Ideation. 16:21 27-year-old female with past medical history of diabetes, leukemia, thyroid cancer ms3 presents to the emergency department for depression. Patient states she does not have a plan for suicide however she is having thoughts of and not wanting to live any longer. Patient states she is tired. Patient states she has had these thoughts for 1-1/2 years and recently they have become worse. Patient states she feels this way due to a multitude of factors to include her health, family, and work problems.. Historical: - Allergies: 12:43 No Known Allergies; hb - Home Meds: 16:51 levothyroxine 200 mcg tablet 1 tab daily [Active]; lispro 6 units AM and 5 units PM db daily [Active]; Tresiba FlexTouch U-100 100 unit/mL (3 mL) subcutaneous Insulin Pen 36 units daily [Active]; - PMHx: 12:43 diabetes mellitus; Leukemia; THYROID CANCER; hb - PSHx: 12:43 Thyroidectomy; hb - Immunization history:: Adult Immunizations up to date. - Social history:: Smoking status: Patient denies any tobacco usage or history of. ROS: 16:21 Constitutional: Negative for fever, and chills. ENT: Negative for injury, pain, and ms3 discharge, Neck: Negative for injury, pain, and swelling, Cardiovascular: Negative for chest pain, and palpitations. Respiratory: Negative for shortness of breath, cough, wheezing, and pleuritic chest pain, Abdomen/GI: Negative for abdominal pain, nausea, vomiting, diarrhea, and constipation, MS/Extremity: Negative for injury and deformity, Skin: Negative for injury, rash, and discoloration, 16:21 Psych: Positive for depression, suicidal ideation, 16:21 All other systems are negative, Exam: 16:21 Constitutional: This is a well developed, well nourished patient who is awake, alert, ms3 and in no acute distress. Head/Face: Normocephalic, atraumatic. Chest/axilla: Normal chest wall appearance and motion. Nontender with no deformity. Cardiovascular: Regular rate and rhythm with a normal S1 and S2. No gallops, murmurs, or rubs. Normal PMI, no JVD. No pulse deficits. Respiratory: Lungs have equal breath sounds bilaterally, clear to auscultation and percussion. No rales, rhonchi or wheezes noted. No increased work of breathing, no retractions or nasal flaring. Abdomen/GI: Soft, non-tender, with normal bowel sounds. No distension or tympany. No guarding or rebound. No evidence of tenderness throughout. Skin: Warm, dry with normal turgor. Normal color with no rashes, no lesions, and no evidence of cellulitis. MS/ Extremity: Pulses equal, no cyanosis. Neurovascular intact. Full, normal range of motion. 16:21 Psych: Behavior/mood is pleasant, cooperative, Affect is calm, Oriented to person, place, time, Patient having thoughts of suicide. Denies suicidal plan. Judgement / Insight is normal. Memory is normal. Delusions/hallucinations are not present. 16:21 ECG was reviewed by the Attending Physician. ms3 Vital Signs: 12:43 BP 155 / 103; Pulse 108; Resp 16; Temp 98.5; Pulse Ox 100% on R/A; Weight 45.36 kg; hb Height 4 ft. 11 in. ; Pain 0/10; 13:46 BP 133 / 87; Pulse 93; Resp 18; Pulse Ox 99% on R/A; db 17:12 BP 128 / 78; Pulse 86; Resp 16; Pulse Ox 99% ; ds4 12:43 Body Mass Index 20.20 (45.36 kg, 149.86 cm) hb 12:43 Pain Scale: Adult hb [place] Coma Score: 13:43 Eye Response: spontaneous(4). Motor Response: obeys commands(6). Verbal Response: db oriented(5). Total: 15. MDM: 12:56 Patient medically screened. ms3 16:21 Differential diagnosis: depression. Data reviewed: vital signs, nurses notes, lab test ms3 result(s), EKG, and as a result, I will Transfer patient. Independent interpretation of the following test(s) in the Emergency Department EKG: See my EKG interpretation above. Counseling: I had a detailed discussion with the patient and/or guardian regarding the historical points, exam findings, and any diagnostic results supporting the discharge/admit diagnosis, lab results, the need to transfer to another facility, [facility] does not immediately have the required specialist. 01/01 12:46 Order name: Acetaminophen; Complete Time: 15:31 ms3 01/01 12:46 Order name: BMP; Complete Time: 15:31 ms3 01/01 12:46 Order name: CBC with Diff; Complete Time: 15:31 ms3 01/01 12:46 Order name: Ethanol; Complete Time: 15:31 ms3 01/01 12:46 Order name: Hepatic Function; Complete Time: 15:31 ms3 01/01 12:46 Order name: Protime (+inr); Complete Time: 15:31 ms3 01/01 12:46 Order name: Ptt, Activated; Complete Time: 15:31 ms3 01/01 12:46 Order name: Salicylate; Complete Time: 15:31 ms3 01/01 12:46 Order name: Urine Drug Screen; Complete Time: 15:31 ms3 01/01 12:46 Order name: EKG; Complete Time: 12:47 ms3 01/01 12:46 Order name: EKG - Nurse/Tech; Complete Time: 14:07 ms3 01/01 12:46 Order name: IV Saline Lock; Complete Time: 13:08 ms3 01/01 12:46 Order name: Labs collected and sent; Complete Time: 13:08 ms3 01/01 12:46 Order name: O2 Per Protocol; Complete Time: 13:08 ms3 01/01 12:46 Order name: O2 Sat Monitoring; Complete Time: 13:08 ms3 01/01 12:46 Order name: Suicide Precautions; Complete Time: 14:07 ms3 01/01 12:46 Order name: Suicide Screening ([place]); Complete Time: 14:33 ms3 EC:21 Rate is 92 beats/min. Rhythm is regular. QRS Pierre is Normal. CO interval is normal. QRS ms3 interval is normal. QT interval is normal. Clinical impression: Normal ECG. Interpreted by me. Reviewed by me. Administered Medications: No medications were administered Disposition Summary: 01/01/23 17:02 Transfer Ordered Notes: Transfer Location: [facility] ms3 Reason: Higher level of care ms3 Condition: Stable ms3 Problem: new ms3 Symptoms: are unchanged ms3 Accepting Physician: (01/01/23 17:58) db Diagnosis - Suicidal ideations ms3 Discharge Instructions: - Discharge Summary Sheet db Forms: - Medication Reconciliation Form ms3 - SBAR form db Signatures: Dispatcher [employer] EDTaylor Rousseau RN Tonny Nichols, DO ms3 Marlys Bermudez RN RN db Corrections: (The following items were deleted from the chart) 17:58 17:02 ms3 db
--- NOTE | 2023-01-01 17:03 | ER ---
Nurse's Notes [facility] Name: Veronica Olmstead Age: 27 yrs Sex: Female : 1995 Arrival Date: 01/01/2023 Time: 12:13 Bed 18 Private MD: Diagnosis: Suicidal ideations Presentation: 01/01 12:40 Chief complaint: Has been having suicidal thoughts for 1.5 years, worse lately due to hb health and work problems. Does not have a plan, no previous attempts. Hx of DM, leukemia, thyroid cancer. Coronavirus screen: At this time, the client does not indicate any symptoms associated with coronavirus-19. Ebola Screen: No symptoms or risks identified at this time. Initial Sepsis Screen: Does the patient meet any 2 criteria? No. Patient's initial sepsis screen is negative. Does the patient have a suspected source of infection? No. Patient's initial sepsis screen is negative. Risk Assessment: Do you want to hurt yourself or someone else? Patient reports no desire to harm self or others. Onset of symptoms was January 01, 2023. 12:40 Method Of Arrival: Ambulatory hb 12:40 Acuity: MARINA 2 hb Historical: - Allergies: 12:43 No Known Allergies; hb - Home Meds: 16:51 levothyroxine 200 mcg tablet 1 tab daily [Active]; lispro 6 units AM and 5 units PM db daily [Active]; Tresiba FlexTouch U-100 100 unit/mL (3 mL) subcutaneous Insulin Pen 36 units daily [Active]; - PMHx: 12:43 diabetes mellitus; Leukemia; THYROID CANCER; hb - PSHx: 12:43 Thyroidectomy; hb - Immunization history:: Adult Immunizations up to date. - Social history:: Smoking status: Patient denies any tobacco usage or history of. Screenin:43 [facility] ED Fall Risk Assessment (Adult) History of falling in the last 3 months, db including since admission No falls in past 3 months (0 pts) Score/Fall Risk Level 0 - 2 = Low Risk Oriented to surroundings, Maintained a safe environment. Abuse screen: Denies threats or abuse. Denies injuries from another. Nutritional screening: No deficits noted. Tuberculosis screening: No symptoms or risk factors identified. Assessment: 13:43 Reassessment: Patient appears in no apparent distress at this time. Patient and/or db family updated on plan of care and expected duration. Pain level reassessed. Patient is alert, oriented x 3, equal unlabored respirations, skin warm/dry/pink. PT ROOMED IN ROOM 18. I ASSUMED PATIENT CARE. General: Appears in no apparent distress. comfortable, Behavior is calm, cooperative. Pain: Denies pain. Neuro: Level of Consciousness is awake, alert, obeys commands, Oriented to person, place, time, situation. Respiratory: Airway is patent Respiratory effort is even, unlabored, Respiratory pattern is regular, symmetrical. GI: No deficits noted. No signs and/or symptoms were reported involving the gastrointestinal system. 14:30 Reassessment: Patient appears in no apparent distress at this time. Patient and/or db family updated on plan of care and expected duration. Pain level reassessed. Patient is alert, oriented x 3, equal unlabored respirations, skin warm/dry/pink. General: Appears in no apparent distress. comfortable, Behavior is calm, cooperative. 15:30 Reassessment: Patient appears in no apparent distress at this time. Patient and/or db family updated on plan of care and expected duration. Pain level reassessed. Patient is alert, oriented x 3, equal unlabored respirations, skin warm/dry/pink. Neuro: Level of Consciousness is awake, alert, obeys commands, Oriented to person, place, time, situation. 16:22 Reassessment: REPORT GIVEN TO FARZAD DE LA ROSA AT [facility]. 17:56 Reassessment: Patient appears in no apparent distress at this time. Patient and/or db family updated on plan of care and expected duration. Pain level reassessed. Patient is alert, oriented x 3, equal unlabored respirations, skin warm/dry/pink. EMS ARRIVED FOR PT TRANSPORT TO [facility]. PT TOOK HOME LISPRO [address] REESE APPROVAL PRIOR TO LEAVING. General: Appears in no apparent distress. comfortable, Behavior is calm, cooperative. Psych: 13:34 [place] Suicide Severity Screening: In the past month, have you wished you were db or wished you could go to sleep and not wake up? Patient responds "yes." Based off the client's responses additional C-SSRS screening is required. "In the past month, have you actually had any thoughts of killing yourself?" Patient responds "yes." "In your lifetime, have you ever done anything, started to do anything, or prepared to do anything to end your life?" Patient responds "no." ONLY REPORTS THOUGHTS. 13:46 Subjective: Having thoughts of suicide. Denies suicidal plan. Objective: Patient is db cooperative, Speech is normal, Affect is appropriate. Interventions: Removed personal items and placed in bag. Patient placed in hospital gown. Searched person for dangerous items. Urine collected and sent for urine drug test. Safety Checks: Personal items have been removed. Door is open. No visitors are present at this time. Pt denies substance abuse. Commitment: Patient will be a voluntary commitment. Vital Signs: 12:43 BP 155 / 103; Pulse 108; Resp 16; Temp 98.5; Pulse Ox 100% on R/A; Weight 45.36 kg; hb Height 4 ft. 11 in. ; Pain 0/10; 13:46 BP 133 / 87; Pulse 93; Resp 18; Pulse Ox 99% on R/A; db 17:12 BP 128 / 78; Pulse 86; Resp 16; Pulse Ox 99% ; ds4 12:43 Body Mass Index 20.20 (45.36 kg, 149.86 cm) hb 12:43 Pain Scale: Adult hb [place] Coma Score: 13:43 Eye Response: spontaneous(4). Motor Response: obeys commands(6). Verbal Response: db oriented(5). Total: 15. ED Course: 12:20 Patient arrived in ED. gm2 12:21 Tonny Hightower DO is Attending Physician. ms3 12:43 Triage completed. hb 12:44 Arm band placed on. hb 13:08 Inserted saline lock: 24 gauge in right forearm, using aseptic technique. Blood ds4 collected. 13:20 Urine Drug Screen Sent. ds4 13:20 Salicylate Sent. ds4 13:20 Ptt, Activated Sent. ds4 13:20 Protime (+inr) Sent. ds4 13:20 Hepatic Function Sent. ds4 13:20 Ethanol Sent. ds4 13:20 CBC with Diff Sent. ds4 13:20 BMP Sent. ds4 13:20 Acetaminophen Sent. ds4 13:43 Patient has correct armband on for positive identification. Bed in low position. Call db light in reach. Side rails up X 1. Pulse ox on. NIBP on. Warm blanket given. 13:45 Bermudez, Marlys, RN is Primary Nurse. db 14:07 Urine Drug Screen Sent. ds4 15:57 faxed chart to [facility]. bd 17:32 pt accepted in transfer to [facility] by dr Benavides admin approval bd given by Ela Griffin. 17:56 Provided Education on: TRANSFER. db 17:56 No provider procedures requiring assistance completed. IV discontinued, intact, db bleeding controlled, No redness/swelling at site. Administered Medications: No medications were administered Medication: 13:43 VIS not applicable for this client. db Outcome: 17:02 ER care complete, transfer ordered by MD. ms3 17:56 Discharged to 17:56 Transferred by ground EMS Transfer form completed. Note: [facility] 17:57 Condition: stable db 17:57 Instructed on the need for transfer, 17:58 Patient left the ED. db Signatures: Chuyita Smith bd Parker Camacho ds4 Taylor Horne, RN RN Tonny Hightower, DO ms3 Marlys Bermudez, RN RN db Lata Kathleen gm2 Corrections: (The following items were deleted from the chart) 14:05 13:34 [place] Suicide Severity Screening: In the past month, have you wished you were db or wished you could go to sleep and not wake up? db
[2023-01-01 18:19] VITALS: TEMP 98.5
[2023-01-01 18:20] VITALS: O2SAT 99
[2023-01-01 18:22] VITALS: BP 128/78
--- NOTE | 2023-01-04 14:20 | EKG ---
Test Date: 2023-01-01 Test Time: 13:39:05 Application Support Analyst: DAVID MEASUREMENT RESULTS: Intervals: Rate: 92 SC: 124 QRSD: 78 QT: 370 QTc: 457 [place]: P: 73 SC: 124 QRS: 80 T: 72 INTERPRETIVE STATEMENTS: Normal sinus rhythm with sinus arrhythmia Normal ECG Compared to ECG 10/10/2022 12:19:41 No significant changes Electronically Signed On 01-04-23 14:10:28 NARROW FAB[employer]IC CALENDERER by Vini Gates
== END 2023-01-01 17:58 ==
LOC: ER 12:13
DX: R45.851 Suicidal ideations (principal); E11.9 Type 2 diabetes mellitus without complications; Z79.4 Long term (current) use of insulin; Z85.6 Personal history of leukemia
CPT/HCPCS: 36415; 80048; 80076; 80143; 80179; 80307; 82077; 85025; 85610; 85730; 93005; 99285

== ENCOUNTER 2024-12-24 00:29 | Emergency (ER) | payer BC, SELFPAY ==
[2024-12-24] MEDS ORDERED: MORPHINE 2 MG/ML SYR ONE (01:11)
[2024-12-24] MEDS ORDERED: CEFTRIAXONE 1000 MG/VIAL ONE (01:11)
[2024-12-24] MEDS ORDERED: KETOROLAC 30 MG/ML INJ ONE (01:12)
[2024-12-24] MEDS ORDERED: LIDOCAINE 1% MPF 2 ML AMPULE ONE (01:12)
--- NOTE | 2024-12-24 02:09 | EDPHYS ---
Physician Documentation [facility] Name: Veronica Olmstead Age: 29 yrs Sex: Female : 1995 Arrival Date: 12/24/2024 Time: 00:29 Bed 18 Private MD: ED Physician Sky Molina HPI: 12/24 00:32 This 29 yrs old Female presents to ER via Unassigned with complaints of sp4 Toothache. 21:59 Patient presents with acute right upper posterior dental pain. Tooth #3 has metal crown sp4 patient states pain is around this area.. 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 - Infectious Disease History:: Denies. - Social history:: Smoking status: Patient denies any tobacco usage or history of. - Family history:: not pertinent. ROS: 21:59 Constitutional: Negative for fever, chills, and weight loss, Eyes: Negative for injury, sp4 pain, redness, and discharge, ENT: Negative for injury, pain, and discharge, positive for dental pain Neck: Negative for injury, pain, and swelling, 21:59 All other systems are negative, Exam: 21:59 Constitutional: This is a well developed, well nourished patient who is awake, alert, sp4 and in no acute distress. Head/Face: Normocephalic, atraumatic. Eyes: Pupils equal round and reactive to light, extra-ocular motions intact. Lids and lashes normal. Conjunctiva and sclera are not injected. Cornea within normal limits. Periorbital areas with no swelling, redness, or edema. ENT: Nares patent. No nasal discharge, no septal abnormalities noted. Tympanic membranes are normal and external auditory canals are clear. Oropharynx with no redness, swelling, or masses, exudates, or evidence of obstruction, uvula midline. Mucous membranes moist. Tooth #3 has a metal crown. Significant tenderness around gingiva right upper gingiva lateral side tenderness without drainable abscess. Neck: Trachea midline, no thyromegaly or masses palpated, and no cervical lymphadenopathy. Supple, full range of motion without nuchal rigidity, or vertebral point tenderness. Chest/axilla: Normal chest wall appearance and motion. Nontender with no deformity. No lesions are appreciated. Cardiovascular: Regular rate and rhythm with a normal S1 and S2. No gallops, murmurs, or rubs. No pulse deficits. Respiratory: Lungs have equal breath sounds bilaterally, clear to auscultation and percussion. No rales, rhonchi or wheezes noted. No increased work of breathing, no retractions or nasal flaring. Abdomen/GI: Soft, with normal bowel sounds. No distension or tympany. No guarding or rebound. No evidence of tenderness throughout. Back: No spinal tenderness. No costovertebral tenderness. Skin: Warm, dry with normal turgor. Normal color with no rashes, no lesions, and no evidence of cellulitis. MS/ Extremity: Pulses equal, no cyanosis. Neurovascular intact. Full, normal range of motion. Neuro: Awake and alert, GCS 15, oriented to person, place, time, and situation. Cranial nerves II-XII grossly intact. Motor strength 5/5 in all extremities. Sensory grossly intact. Psych: Awake, alert, with orientation to person, place and time. Behavior, mood, and affect are within normal limits Vital Signs: 00:31 BP 176 / 110; Pulse 107; Resp 20 S; Temp 97.3(T); Pulse Ox 99% on R/A; Weight 49.9 kg; ha1 Height 4 ft. 11 in. ; Pain 10/10; 00:42 BP 134 / 87; Pulse 73; Resp 18; Pulse Ox 100% on R/A; Pain 8/10; tb4 01:30 BP 148 / 93; Pulse 67; Resp 18; Pulse Ox 100% on R/A; tb4 02:40 BP 133 / 89; Pulse 73; Pulse Ox 98% on R/A; tb4 00:31 Body Mass Index 22.22 (49.90 kg, 149.86 cm) ha1 00:31 Pain Scale: Adult ha1 00:42 Pain Scale: Adult tb4 [place] Coma Score: 21:59 Eye Response: spontaneous(4). Verbal Response: oriented(5). Motor Response: obeys sp4 commands(6). Total: 15. Procedures: 22:02 Performed Right upper gingival dental block. Bupivacaine introduced right upper sp4 gingiva. 0.5% bupivacaine 5 mL introduced for alveolar nerve block. Pain completely alleviated. Patient tolerated procedure without problem.. MDM: 00:51 Medical Screening Exam initiated sp4 22:01 Differential diagnosis: dental caries, gingivitis, dental abscess, pericoronitis, sp4 gingivostomatitis. Data reviewed: vital signs, nurses notes, lab test result(s), UPT: negative. 12/24 00:48 Order name: Test, Urine; Complete Time: 02:06 sp4 Administered Medications: 01:43 Drug: morphine IM 4 mg IM once Route: IM; Site: right gluteus; tb4 02:24 Follow up: Response: No adverse reaction; Pain is decreased; RASS: Alert and Calm (0) tb4 01:43 Drug: Rocephin (cefTRIAXone) IM 1 grams IM once Route: IM; Site: left gluteus; tb4 02:24 Follow up: Response: No adverse reaction tb4 01:43 Drug: Ketorolac IM 30 mg IM once Route: IM; Site: left deltoid; tb4 02:24 Follow up: Response: No adverse reaction; Pain is decreased tb4 02:24 Drug: Bupivacaine-Epinephrine Infiltration (0.5 %) 30 ml Infiltration once; to bedside tb4 {Note: Provider administer.} Route: Infiltration; 02:40 Follow up: Response: No adverse reaction; Pain is decreased tb4 Disposition Summary: 12/24/24 02:08 Discharge Ordered Notes: Location: Home sp4 Problem: new sp4 Symptoms: have improved sp4 Condition: Stable sp4 Diagnosis - Acute right upper dental pain, acute pulpitis , tooth #3 acute dental pain and sp4 infection Followup: sp4 - With: Private Physician - When: 2 - 3 days - Reason: Recheck today's complaints Discharge Instructions: - Discharge Summary Sheet sp4 - Dental Pain, [id number] sp4 - Form - Excuse from Work, School, or Physical Activity vk - Form - Return To Work vk Forms: - Patient Portal Instructions sp4 - Work release form vk Prescriptions: - meloxicam 15 mg Oral tablet - take 1 tablet ORAL route daily PRN pain; 30 tablet; Refills: 0, Product sp4 Selection Permitted - Cephalexin 500 mg Oral Capsule - take 1 capsule ORAL route every 6 hours for 10 days; 40 capsule; Refills: 0, sp4 Product Selection Permitted - Tramadol 50 mg Oral tablet - take 1 tablet ORAL route every 8 hours as needed; 20 tablet; Refills: 0, sp4 Product Selection Permitted Signatures: 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
--- NOTE | 2024-12-24 02:09 | ER ---
Nurse's Notes [facility] Name: Veronica Olmstead Age: 29 yrs Sex: Female : 1995 Arrival Date: 12/24/2024 Time: 00:29 Bed 18 Private MD: Diagnosis: Acute right upper dental pain, acute pulpitis , tooth #3 acute dental pain and infection Presentation: 12/24 00:31 Chief complaint: Patient states: TOOTH ACHE THAT STARTED YESTERDAY . TOOK IBUPROFEN ha1 PAIN NOT IMPROVING. 00:31 Coronavirus screen: Client denies travel out of the [place] in the last 14 days. Ebola ha1 Screen: No symptoms or risks identified at this time. Initial Sepsis Screen: Does the patient meet any 2 criteria? No. Patient's initial sepsis screen is negative. Does the patient have a suspected source of infection? No. Patient's initial sepsis screen is negative. Risk Assessment: Do you want to hurt yourself or someone else? Patient reports no desire to harm self or others. Onset of symptoms was December 24, 2024. 00:31 Method Of Arrival: Ambulatory ha1 00:31 Acuity: MARINA 4 ha1 Triage Assessment: 00:34 General: Appears uncomfortable, Behavior is cooperative, crying. Pain: Complains of ha1 pain in mouth Pain currently is 10 out of 10 on a pain scale. Neuro: Level of Consciousness is awake, alert, obeys commands, Oriented to person, place, time, situation. Cardiovascular: Capillary refill < 3 seconds Patient's skin is warm and dry. Respiratory: Airway is patent Respiratory effort is even, unlabored, Respiratory pattern is regular, symmetrical. 02:31 EENT: Reports pain Pain is 8 out of 10 on a pain scale. 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 - Infectious Disease History:: Denies. - Social history:: Smoking status: Patient denies any tobacco usage or history of. - Family history:: not pertinent. Screenin:[address] [facility] ED Fall Risk Assessment (Adult) History of falling in the last 3 months, tb4 including since admission No falls in past 3 months (0 pts) Confusion or Disorientation No (0 pts) Intoxicated or Sedated No (0 pts) Impaired Gait No (0 pts) Mobility Assist Device Used No (0 pt) Altered Elimination No (0 pt) Score/Fall Risk Level 0 - 2 = Low Risk Oriented to surroundings, Maintained a safe environment. Abuse screen: Denies threats or abuse. Denies injuries from another. Nutritional screening: No deficits noted. Tuberculosis screening: No symptoms or risk factors identified. Assessment: 02:27 General: Appears comfortable, Behavior is calm, cooperative. Pain: Complains of pain in tb4 right buccal mucosa Pain does not radiate. Pain currently is 3 out of 10 on a pain scale. at worst was 8 out of 10 on a pain scale. Quality of pain is described as aching, shooting, Pain began gradually, 2-3 days ago. Is intermittent. Neuro: Level of Consciousness is awake, alert, obeys commands, Oriented to person, place, time, situation, Moves all extremities. Full function Gait is steady, Speech is normal, Facial symmetry appears normal. Cardiovascular: Patient's skin is warm and dry. Respiratory: Airway is patent Respiratory effort is even, unlabored, Respiratory pattern is regular, symmetrical. GI: No deficits noted. No signs and/or symptoms were reported involving the gastrointestinal system. : No deficits noted. No signs and/or symptoms were reported regarding the genitourinary system. EENT: Tooth pain. Derm: Skin is intact, is healthy with good turgor, Skin is dry, Skin is normal, Skin temperature is warm. Musculoskeletal: Circulation, motion, and sensation intact. Range of motion: intact in all extremities. 02:32 Reassessment: Patient is alert, oriented x 3, equal unlabored respirations, skin tb4 warm/dry/pink. Patient states feeling better. Vital Signs: 00:31 BP 176 / 110; Pulse 107; Resp 20 S; Temp 97.3(T); Pulse Ox 99% on R/A; Weight 49.9 kg; ha1 Height 4 ft. 11 in. ; Pain 10/10; 00:42 BP 134 / 87; Pulse 73; Resp 18; Pulse Ox 100% on R/A; Pain 8/10; tb4 01:30 BP 148 / 93; Pulse 67; Resp 18; Pulse Ox 100% on R/A; tb4 02:40 BP 133 / 89; Pulse 73; Pulse Ox 98% on R/A; tb4 00:31 Body Mass Index 22.22 (49.90 kg, 149.86 cm) ha1 00:31 Pain Scale: Adult ha1 00:42 Pain Scale: Adult tb4 [place] Coma Score: 21:59 Eye Response: spontaneous(4). Verbal Response: oriented(5). Motor Response: obeys sp4 commands(6). Total: 15. ED Course: 00:30 Patient arrived in ED. im 00:32 Sky Molina MD is Attending Physician. sp4 00:34 Triage completed. ha1 01:04 Test, Urine Sent. tb4 02:26 Assist provider with nerve block (dental) Performed by Sky Molina MD Patient tb4 tolerated well. Patient did not have IV access during this emergency room visit. 02:26 Patient has correct armband on for positive identification. Bed in low position. Call tb4 light in reach. Side rails up X 1. Adult w/ patient. Client placed on continuous cardiac and pulse oximetry monitoring. NIBP monitoring applied. Pulse ox on. Door closed. Lights dimmed. 02:30 Arm band placed on left wrist. tb4 02:41 Provided Education on: Take medications as prescribed. tb4 Administered Medications: 01:43 Drug: morphine IM 4 mg IM once Route: IM; Site: right gluteus; tb4 02:24 Follow up: Response: No adverse reaction; Pain is decreased; RASS: Alert and Calm (0) tb4 01:43 Drug: Rocephin (cefTRIAXone) IM 1 grams IM once Route: IM; Site: left gluteus; tb4 02:24 Follow up: Response: No adverse reaction tb4 01:43 Drug: Ketorolac IM 30 mg IM once Route: IM; Site: left deltoid; tb4 02:24 Follow up: Response: No adverse reaction; Pain is decreased tb4 02:24 Drug: Bupivacaine-Epinephrine Infiltration (0.5 %) 30 ml Infiltration once; to bedside tb4 {Note: Provider administer.} Route: Infiltration; 02:40 Follow up: Response: No adverse reaction; Pain is decreased tb4 Medication: 02:27 VIS not applicable for this client. tb4 Outcome: 02:08 Discharge ordered by . sp4 02:40 Discharged to home ambulatory, with family, tb4 02:40 Condition: stable 02:40 Discharge instructions given to patient, family, Instructed on discharge instructions, follow up and referral plans. Demonstrated understanding of instructions, follow-up care, medications, Prescriptions given X 3, 02:41 Patient left the ED. tb4 Signatures: Dahiana Mccall RN RN ha1 Sky Molina MD MD sp4 Aurelia Wright Terri, RN RN tb4
[2024-12-24 02:56] VITALS: TEMP 97.3
[2024-12-24 02:59] VITALS: BP 133/89; O2SAT 98
== END 2024-12-24 02:41 | disposition home or self-care (01) ==
LOC: ER 00:29
DX: K04.7 Periapical abscess without sinus (principal); K04.01 Reversible pulpitis
CPT/HCPCS: 81025; 96372; 99284; J0696; J1885; J2270